=== PATIENT | male | born 1965 | race Caucasian/White ===

== ENCOUNTER 2023-02-06 07:19 | Outpatient (OUT) | payer OTHER, SELFPAY ==
[2023-02-06 08:43] LABS: Alanine Aminotransferase 43 U/L (16-63); Albumin Level 4.1 g/dL (3.4-5.0); Alkaline Phosphatase 97 U/L (46-116); Anion Gap 13.6; Aspartate Amino Transferase 14 U/L (15-37); BUN Creatinine Ratio 15.5; Bilirubin Total 0.4 mg/dL (0.2-1.0); Calcium 9.1 mg/dL (8.5-10.1); Carbon Dioxide 29.9 mmol/L (21.0-32.0); Chloride 99 mmol/L (98-107); Chol HDL Ratio 3.6; Cholesterol 232 mg/dL (<=200); Estimated GFR (African America >60 (>=60); Estimated GFR (Non-African Ame >60 (>=60); Glucose 290 mg/dL (74-106); HDL Cholesterol 65 mg/dL (40-60); Potassium 4.5 mmol/L (3.5-5.1); Sodium 138 mmol/L (136-145); Total Protein 8.1 g/dL (6.4-8.2); Triglycerides 116 mg/dL (<=150); VLDL CHOLESTEROL 23.2 mg/dL
[2023-02-06 08:55] LABS: Prostate Specific Antigen Scrn 1.46 ng/mL (<=4.00)
== END 2023-02-06 07:20 | disposition home or self-care (01) ==
PROVIDERS: PCP Family Medicine; Visit Provider Family Medicine
DX: Z00.00 Encounter for general adult medical examination without abnormal findings (principal); Z12.5 Encounter for screening for malignant neoplasm of prostate
CPT/HCPCS: 36415; 80053; 80061; G0103

== ENCOUNTER 2023-09-10 13:20 | Emergency (ER) | payer OTHER, SELFPAY ==
[2023-09-10] VITALS (21 sets, daily range): BP systolic 106–179; BP diastolic 86–113; PULSE 92–112; TEMP 36.7; O2SAT 94–99
--- NOTE | 2023-09-10 13:29 | ED.GENADUL1 ---
HPI HPI - General Adult General Chief complaint: Chest Pain Stated complaint: CHEST PAIN Time Seen by Provider: 09/10/23 13:20 Source: patient Mode of arrival: Wheelchair Limitations: no limitations History of Present Illness HPI narrative: Patient is a 58-year-old male who presents to the emergency department with concern for possible pulmonary embolism. He has a history of pulmonary embolism in the past. He was taken off of his Xarelto 1 week ago for a back procedure and states that he has had 1 day of Lovenox. He denies any other recent illness, injuries or traumas to the right chest wall. He points to pain in the right upper quadrant of the abdomen radiating upward and states the same pain happened with his previous pulmonary embolisms. He has a history of clotting disorder. No medications taken prior to arrival. Related Data Previous Rx's ?Medication ?Instructions ?Recorded ondansetron 4 mg disintegrating 4 mg PO Q6H PRN nausea and 09/10/23 tablet vomiting #12 tabs oxycodone-acetaminophen 5 mg-325 1 tab PO Q6H PRN pain 4 days #15 09/10/23 mg tablet (Percocet) tabs Allergies Allergy/AdvReac Type Severity Reaction Status Date / Time No Known Drug Allergies Allergy Verified 09/10/23 13:24 Opioid HPI Opioid Management Most Recent Opioid Data: Last Pain Scale 8 09/10/23 14:39 Last ED Pain Assessment 09/10/23 14:39 Last MAR Pain Assessment 09/10/23 14:35 Review of Systems ROS Constitutional Denies: fever or chills Ears, nose, mouth, and throat Denies: throat pain or nasal congestion Cardiovascular Reports: chest pain Respiratory Denies: shortness of breath Gastrointestinal Reports: abdominal pain; Denies: nausea or vomiting Musculoskeletal Denies: back pain Integumentary/Breast Denies: rash Neurological Denies: headache Hematologic/Lymphatic Reports: easy bruising and easy bleeding Exam Narrative Exam Narrative: Gen.: Awake, alert, in no distress Head: Normocephalic, atraumatic ENT: Moist mucous membranes Respiratory: No respiratory distress, lungs clear bilaterally Cardio: Regular rate and rhythm Gastrointestinal: Tenderness and guarding to the right upper quadrant with previous incision well-healed from cholecystectomy Extremities: Moves extremities equally Psych: Normal mood and affect Neuro: No focal neuro deficit Skin: Warm, dry, intact Constitutional Vital Signs, click to edit/add: Last Vital Signs Temp 98.1 F 09/10/23 13:24 Pulse 102 H 09/10/23 14:31 Resp 26 H 09/10/23 14:31 BP 145/107 H 09/10/23 14:31 Pulse Ox 98 09/10/23 14:31 O2 Del Method Room Air 09/10/23 13:24 Course Vital Signs Vital signs: Vital Signs Blood Pressure 179/106 H 09/10/23 12:51 Temperature 98.1 F 09/10/23 13:24 Pulse Rate 102 H 09/10/23 14:31 Respiratory Rate 26 H 09/10/23 14:31 Blood Pressure 145/107 H 09/10/23 14:31 Pulse Oximetry 98 09/10/23 14:31 Oxygen Delivery Method Room Air 09/10/23 13:24 Medical Decision Making MDM Narrative Medical decision making narrative: Lab studies including LFTs, lipase and troponin are within normal limits. Patient was medicated with Dilaudid and remedicated with fentanyl. His vital signs have normalized and he was sent for CT angio of the chest which shows no evidence of pulmonary embolism. Patient will be discharged home to follow-up with PCP, short course of analgesics given for home. Follow-up with PCP and return to the emergency department if symptoms change or worsen. Medical Records Medical records reviewed: Yes I reviewed the patient's medical records Lab Data Lab results reviewed: Yes I reviewed the patient's lab results Labs: Lab Results 09/10/23 Range/Units 13:30 WBC 10.2 (4.0-11.0) 10^3/uL RBC 5.14 (4.70-6.10) 10^6/uL Hgb 15.4 (14.0-18.0) g/dL Hct 45.4 (42.0-54.0) % MCV 88.3 (80.0-94.0) fL MCH 30.0 (25.9-34.0) pg MCHC 33.9 (29.9-35.2) g/dL RDW 12.3 (11.0-15.0) % Plt Count 238 (150-450) 10^3/uL MPV 11.0 (9.5-13.5) fL Neut % (Auto) 50.9 (43.0-75.0) % Lymph % (Auto) 38.2 (20.5-60.0) % [place] % (Auto) 9.1 (1.7-12.0) % Eos % (Auto) 0.7 L (0.9-7.0) % Baso % (Auto) 0.5 (0.2-2.0) % Neut # (Auto) 5.2 (1.4-6.5) 10^3/uL Lymph # (Auto) 3.9 H (1.2-3.8) 10^3/uL [place] # (Auto) 0.9 H (0.3-0.8) 10^3/uL Eos # (Auto) 0.1 (0.0-0.7) 10^3/uL Baso # (Auto) 0.1 (0.0-0.1) 10^3/uL Abs Immat Gran (auto) 0.06 H (0.00-0.03) 10^3/uL Imm/Tot Granulo (auto) 0.6 H (0.0-0.5) % PT 10.1 (9.0-11.6) sec INR 0.95 Sodium 134 L (136-145) mmol/L Potassium 4.2 (3.5-5.1) mmol/L Chloride 96 L (98-107) mmol/L Carbon Dioxide 24.9 (21.0-32.0) mmol/L Anion Gap 17.3 BUN 13.0 (7.0-18.0) mg/dL Creatinine 0.90 (0.70-1.30) mg/dL Est GFR ( Amer) >60 (>=60) Est GFR (Non-Af Amer) >60 (>=60) BUN/Creatinine Ratio 14.4 Glucose 237 H (74-106) mg/dL Calcium 10.2 H (8.5-10.1) mg/dL Total Bilirubin 0.6 (0.2-1.0) mg/dL AST 25 (15-37) U/L ALT 55 (16-63) U/L Alkaline Phosphatase 110 (46-116) U/L Troponin I High Sens <4.0 L (4.0-76.1) pg/mL NT-Pro-B Natriuret Pep 14.0 (<=900.0) pg/mL Total Protein 8.7 H (6.4-8.2) g/dL Albumin 4.3 (3.4-5.0) g/dL Globulin 4.4 g/dL Albumin/Globulin Ratio 1.0 Lipase 24.0 (16.0-77.0) U/L Imaging Data CT scan - chest: Attestation: I have reviewed the pertinent imaging results. Radiologist's impression: ITS Impressions Chest CTA 09/10/23 13:30 IMPRESSION: No evidence of pulmonary embolus or acute intrathoracic abnormality. Severe hepatic cirrhosis. Electronically authenticated by: ALLAN MAYEN Date: 09/10/2023 14:49 ECG Data Attestation: I personally reviewed and interpreted this ECG as follows: (Sinus tachycardia at a rate of 106, incomplete right bundle branch block, no acute ST elevation or ectopy. EKG reviewed by attending physician) Discharge Plan Discharge Stand Alone Forms: Portal Instructions Chief Complaint: Chest Pain Clinical Impression: Chest pain Patient Disposition: Home, Self-Care Time of Disposition Decision: 15:02 Condition: Good Prescriptions / Home Meds: New oxycodone-acetaminophen [Percocet] 5-325 mg tablet 1 tab PO Q6H PRN (Reason: pain) 4 Days Qty: 15 0RF Rx Instructions: DX: R07.9 ondansetron 4 mg tablet,disintegrating 4 mg PO Q6H PRN (Reason: nausea and vomiting) Qty: 12 0RF Print Language: German Instructions: Chest Pain (ED) Referrals: KIMI JACINTO [Primary Care Provider] - 1 week
--- NOTE | 2023-09-10 13:30 | ECG_ITS ---
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
--- NOTE | 2023-09-10 13:30 | CT_ITS ---
[address] [address] Patient Name: LYLY KIDD MRN: [id number] date: 1965 Sex: M Assigned Patient Location: ER Current Patient Location: Accession/Order Number: [id number] Exam Date: 09/10/2023 14:08 Report Date: 09/10/2023 14:49 At the request of: KINSEY EVANS Procedure: CT angio chest EXAM: CT angio chest HISTORY: Pulmonary embolism COMPARISON: None. TECHNIQUE: CT chest with intravenous contrast was performed with timing for the evaluation for pulmonary arteries. Multiplanar reformats were performed. MIP (maximum intensity projection) images or 3D post processing was performed. Dose reduction techniques were achieved by using automated exposure control and/or adjustment of mA and/or kV according to patient size and/or use of iterative reconstruction technique. FINDINGS: Lungs: No consolidation, pneumothorax, or effusion. Airways: Normal. Mediastinum: No adenopathy. Aorta: No aneurysm. Cardiac: Normal size. No pericardial effusion. Pulmonary vasculature: Diagnostic opacification of pulmonary arteries without evidence of pulmonary embolus. Normal morphology. Bones: No acute bony abnormality. Axilla: No adenopathy. Thyroid gland: No abnormality demonstrated on provided imaging. Soft tissues: Unremarkable. Upper abdomen: Severe hepatic steatosis. Additional findings: None. CT/CT angio chest IMPRESSION: No evidence of pulmonary embolus or acute intrathoracic abnormality. Severe hepatic cirrhosis. Electronically authenticated by: ALLAN MAYEN Date: 09/10/2023 14:49
[2023-09-10] MEDS: 0.9 % SODIUM CHLORIDE 1,000 ML 1000 ML IV (13:43)
[2023-09-10] MEDS: ONDANSETRON PF 4 MG/2 ML VIAL IV (13:44)
[2023-09-10] MEDS: HYDROMORPHONE HCL 1 MG/ML CARTRIDGE IVP (13:44)
[2023-09-10 13:57] LABS: Basophils Absolute Auto 0.1 10^3/uL (0.0-0.1); Basophils Percent Auto 0.5 % (0.2-2.0); Eosinophils Absolute Auto 0.1 10^3/uL (0.0-0.7); Eosinophils Percent Auto 0.7 % (0.9-7.0); Hematocrit 45.4 % (42.0-54.0); Hemoglobin 15.4 g/dL (14.0-18.0); Immature Granulocytes Abs Auto 0.06 10^3/uL (0.00-0.03); Immature Granulocytes Pct Auto 0.6 % (0.0-0.5); Lymphocytes Absolute Auto 3.9 10^3/uL (1.2-3.8); Lymphocytes Percent Auto 38.2 % (20.5-60.0); Mean Corpuscular HGB Conc 33.9 g/dL (29.9-35.2); Mean Corpuscular Volume 88.3 fL (80.0-94.0); Monocytes Absolute Auto 0.9 10^3/uL (0.3-0.8); Monocytes Percent Auto 9.1 % (1.7-12.0); Neutrophils Absolute Auto 5.2 10^3/uL (1.4-6.5); Neutrophils Percent Auto 50.9 % (43.0-75.0); Platelet Count 238 10^3/uL (150-450); Red Blood Count 5.14 10^6/uL (4.70-6.10); Red Cell Distribution Width 12.3 % (11.0-15.0); White Blood Count 10.2 10^3/uL (4.0-11.0)
[2023-09-10 14:10] LABS: INR 0.95; Prothrombin Time 10.1 sec (9.0-11.6)
[2023-09-10 14:20] LABS: Anion Gap 17.3
[2023-09-10 14:28] LABS: Alanine Aminotransferase 55 U/L (16-63); Albumin Level 4.3 g/dL (3.4-5.0); Alkaline Phosphatase 110 U/L (46-116); Aspartate Amino Transferase 25 U/L (15-37); BUN Creatinine Ratio 14.4; Bilirubin Total 0.6 mg/dL (0.2-1.0); Calcium 10.2 mg/dL (8.5-10.1); Carbon Dioxide 24.9 mmol/L (21.0-32.0); Chloride 96 mmol/L (98-107); Estimated GFR (African America >60 (>=60); Estimated GFR (Non-African Ame >60 (>=60); Globulin 4.4 g/dL; Glucose 237 mg/dL (74-106); Potassium 4.2 mmol/L (3.5-5.1); Sodium 134 mmol/L (136-145); Total Protein 8.7 g/dL (6.4-8.2); Troponin I High Sensitivity <4.0 pg/mL (4.0-76.1)
[2023-09-10] MEDS: FENTANYL CITRATE/PF 100 MCG/2 ML VIAL IV (14:35)
== END 2023-09-10 15:25 | disposition home or self-care (01) ==
PROVIDERS: Physician Assistant; Emergency Provider Emergency Medicine; PCP Family Medicine
DX: R07.9 Chest pain, unspecified (principal); Z86.711 Personal history of pulmonary embolism
CPT/HCPCS: 36415; 71275; 80053; 83690; 83880; 84484; 85025; 85610; 93005; 96374; 96375; 99285; J1170; Q9967

== ENCOUNTER 2024-02-04 06:36 | Outpatient (OUT) | payer OTHER, SELFPAY ==
--- OUTSIDE RECORDS SUMMARY | 2024-02-04 06:40 | XMS_ITS | CCD ---
Author Organization [facility] Care Team Providers Care Case Finishing Machine Adjuster Name Role Phone Unknown, Referring Provider Unavailable Unav ailable Kimi Weiss Unavailable Unavailable Unavailable Kimi Weiss Unavailable eBe Blackmon Unavailable Charles Claros Unavailable Dr. Kimi Weiss Primary Care Alondra Blackmon, Dr. Bee Rocha Attending Alondra BENITEZ, DR DANIEL Ngo Consulting Unavailable ABHISHEK, DR BOLDEN Primary Care Unavailable JESS LEVI Attending Unavailable JESS LEVI Admitting Unavailable JESS LEVI Consulting Unavailable DANIEL MALDONADO Consulting Unavailable Bee Blackmon Attending Unavailable Abhishek, Dr. Kimi Venegas Primary Care DO Kimi Etienne Primary Care Provider MD Charles Claros Attending Provider Charles Claros Attending Unavailable Kimi Weiss Primary Care Unavailable Charles Claros Admitting Unavailable Kimi Weiss Primary Care Unavailable Charles Claros Admitting Unavailable Charles Claros Attending Unavailable THALIA SANDY Attending Unavailable KARON RODRIGUEZ Attending Unavailable Kimi Weiss Primary Care Unavailable Kimi Weiss Attending Unavailable Kimi Weiss Referring Unavailable Kimi Weiss Primary Care Unavailable Kimi Weiss Attending Unavailable Kimi Weiss Primary Care Unavailable Georgina Santnaa Admitting Unavailable Georgina Santana Attending Unavailable Kimi Weiss Primary Care Unavailable Kimi Weiss Attending Unavailable Kimi Weiss Primary Care Unavailable Kimi Weiss Attending Unavailable Kimi Weiss Primary Care Unavailable Kimi Weiss Attending Unavailable Kimi Weiss Referring Unavailable Kimi Weiss Attending Unavailable Kimi Weiss Primary Care Unavailable Kimi Weiss Referring Unavailable Kimi Weiss Primary Care Unavailable Kimi Weiss Attending Unavailable BEE BLACKMON Attending Unavailable KIMI WEISS Primary Care Unavailabl e Allergies Allergy Classification Reported Allergen(s) Allergy Type Date of Onset Reaction(s) Facility (1 source) ALLERGIES NOT ON FILE; Translations: [ALLERGIES NOT ON FILE] Propensity to adverse reactions (disorder) [facility] Medications Current Medications Medication Drug Class(es) Dates Sig (Normalized) Sig (Original) acetaminophen 325 mg / HYDROcodone bitartrate 5 mg oral tablet (20 sources) Opioid Agonist Start: 04-01-2023 take 1 tablet by mouth twice daily as needed HYDROcodone-Aceta minophen 5-325 MG 1 tablet as needed Orally up to two times daily as needed for 30 days Mar, Active Start: 01-21-2023 take 1 tablet by azucena th twice daily as needed HYDROcodone-Acetaminophen 5-325 MG 1 tab let as needed Orally up to two times daily as needed for 30 days Jan, Active Start: 10-06-2022 take 1 tablet by azucena th twice daily as needed HYDROcodone-Acetaminophen 5-325 MG 1 tab let as needed Orally up to two times daily as needed for 30 days Sep, Active Start: 06-01-2022 take 1 tablet by azucena th twice daily as needed HYDROcodone-Acetaminophen 5-325 MG 1 tab let as needed Orally up to two times daily as needed for 30 days May, Active Start: 04-02-2021 take 1 tablet by azucena th twice daily as needed HYDROcodone-Acetaminophen 5-325 MG Oral Tablet TAKE 1 TABLET BY MOUTH NEEDED up to TWICE DAILY Quantity: 60 Refills: 0 Ordered: 02-Apr-2021 DO Start : 02-Apr-2021 Active Start: 06-13-2019 End: 03-05-2020 take 1 tablet by mouth twice daily Hydrocodone-Acetaminophen Discontinued 1 TAB PO Twice daily 0 June 15, 2019 12:03pm February 28, 2020 1:49pm acetaminophen 325 mg / oxyCODONE hydrochloride 5 mg oral tablet (11 sources) Opioid Agonist Start: 08-05-2023 End: 08-06-2023 take 1 tablet by mouth twice daily Oxycodone-Acetaminophen Active 1 TAB PO Twice daily 60 30 August 06, 2023 Start: 07-09-2018 End: 06-13-2019 Oxycodone-Acetaminophen (Per cocet) 5-325 mg tablet Discontinued 1 TAB PO .Q12 July 09, 2018 June 13, 2019 11:45pm cyclobenzaprine hydrochloride 10 mg oral tablet (20 sources) Muscle Relaxant Start: 02-28-2020 End: 03-05-2020 take 10 mg by mouth twice daily Cyclobenzaprine Active 10 MG PO Twice daily 90 March 05, 2020 5:05pm esomeprazole 20 mg delayed release oral capsule (20 sources) Proton Pump Inhibitor Start: 12-28-2017 take 1 capsule by mouth once daily Esomeprazole Magnesium (Nexium) 20 mg Capsule,Delayed Release(Dr/Ec) Active 20 MG PO Daily December 28, 2017 12:00am Start: 12-28-2017 take 10 mg by mouth once daily Esomeprazole Magnesium (Nexium) 20 mg Capsule,Delayed Release(Dr/Ec) Active 10 MG PO Daily December 28, 2017 12:00am take 1 tablet by azucena th once daily in the morning NexIUM 24HR 20 mg oral delayed release tablet ; 1 tab(s) orally once a day (in the morning) Quantity: 0 Refills: 0 Ordered: 19-Nov-2020 Tara Gonzalez Generic Substitution Allowed 1 ml galcanezumab-gnlm 120 mg/ml auto-injector (7 sources) Start: 09-07-2023 inject 120 mg by subcutaneous injection every month Galcanezumab-Gnlm (Emgality Pen) 120 mg/mL pen injector Active 120 MG SUBCUT every month September 07, 2023 12:00am Start: 08-12-2021 Emgality 120 M G/ML Subcutaneous Solution Auto-injector Quantity: 1 Refills: 0 Ordered: 10-Sep-2021 DO Start : 12-Aug-2021 Active lisinopril 30 mg oral tablet (20 sources) Angiotensin Converting Enzyme Inhibitor Start: 09-07-2023 take 30 mg by mouth once daily Lisinopril Active 30 MG PO Daily September 07, 2023 12:00am Start: 08-05-2023 End: 09-07-2023 take 20 mg by mouth once daily Lisinopril Discontinued 20 MG PO Daily August 05, 2023 9:05am September 07, 2023 9:17am Start: 10-08-2020 take 1 tablet by azucena th once daily Lisinopril 20 MG Oral Tablet TAKE 1 TABLET BY MOUTH DAILY Quantity: 90 Refills: 0 Ordered: 13-Apr-2021 DO Start : 08-Oct-2020 Active Start: 12-28-2017 End: 08-05-2023 take 10 mg by mouth once daily Lisinopril Discontinued 10 MG PO Daily December 28, 2017 12:00am August 05, 2023 9:05am sennosides, detention 8.6 mg oral tablet (1 source) Start: 03-05-2020 take 2 tablets by mouth once daily at bedtime Sennosides (Senna Lax) 8.6 mg Tablet Active 2 TAB PO Daily at bedtime March 05, 2020 1:00am Completed/Discontinued Medications Medication Drug Class(es) Dates Sig (Normalized) Sig (Original) acetaminophen 325 mg oral tablet (3 sources) Start: 11-26-2020 End: 01-24-2021 take 2 tablets by mouth every six hours Pain Reliever 325 MG Oral Tablet TAKE 2 TABLETS BY MOUTH EVERY 6 HOURS Quantity: 240 Refills: 0 Ordered: 26-Nov-2020 DO Start : 26-Nov-2020 Complete Comment on above: This product contain s acetaminophen. Do not use with any other product containing acetaminophen to prevent possible liver damage. acetaminophen 300 mg / butalbital 50 mg / caffeine 40 mg oral capsule (10 sources) Barbiturate, Central Nervous System Stimulant, Methylxanthine Start: 04-08-2021 take 1 capsule by mouth every four hours as needed for headache Zkkzvgonxn-ITEJ-X affeine 50-300-40 MG Oral Capsule TAKE 1 CAPSULE BY MOUTH EVERY 4 HOURS NEEDED FOR HEADACHE Quantity: 36 Refills: 0 Ordered: 08-Apr-2021 DO Start : 08-Apr-2021 Active carisoprodol 350 mg oral tablet (8 sources) Muscle Relaxant Start: 06-13-2019 End: 02-28-2020 take 350 mg by mouth three times daily Carisoprodol Discontinued 350 MG PO Three times daily 0 June 15, 2019 12:03pm February 28, 2020 1:49pm cephalexin 500 mg oral tablet (6 sources) Cephalosporin Antibacterial Start: 01-07-2021 End: 04-23-2021 take 1 tablet by mouth three times daily at mealtime Cephalexin 500 MG Oral Tablet TAKE 1 TABLET 3 TIMES DAILY, WITH FOOD Quantity: 15 Refills: 0 Ordered: 07-Jan-2021 Bee Blackmon MD Start : 07-Jan-2021 End : 23-Apr-2021 Complete Start: 01-07-2021 Cephalexin 500 MG Oral Capsule Quantity: 15 Refills: 0 Ordered: 07-Jan-2021 DO Start : 07-Jan-2021 Complete docusate sodium 100 mg oral capsule (7 sources) Start: 03-05-2020 End: 09-07-2023 take 1 capsule by mouth twice daily Docusate Sodium (Dok) 100 mg Capsule Discontinued 100 MG PO Twice daily 60 March 05, 2020 1:00am September 07, 2023 9:17am Comment on above: Medication should be taken with plenty of water. DULoxetine 60 mg delayed release oral capsule (20 sources) Serotonin and Norepinephrine Reuptake Inhibitor Start: 08-01-2020 take 1 capsule by mouth once daily DULoxetine HCl - 60 MG Oral Capsule Delayed Release Particles TAKE 1 CAPSULE BY MOUTH DAILY. DO NOT CRUSH OR CHEW Quantity: 90 Refills: 0 Ordered: 16-Mar-2021 DO Start : 01-Aug-2020 Active Start: 07-12-2020 DULoxetine HCl - 30 MG Oral Capsule Delayed Release Particles Quantity: 14 Refills: 0 Ordered: 12-Jul-2020 DO Start : 12-Jul-2020 Complete 0.4 ml enoxaparin sodium 100 mg/ml prefilled syringe (6 sources) Low Molecular Weight Heparin Start: 11-26-2020 End: 11-30-2020 enoxaparin 40 mg/0.4 mL injectable solution ; 40 milligram(s) subcutaneously once a day starting on 11/27/20 and continuing for 5 days, then stop and resume home Xarelto. Quantity: 5 Refills: 0 Ordered: 26-Nov-2020 Lambert Suarez Start: 26-Nov-2020 End: 30-Nov-2020 Generic Substitution Allowed Comments: It is very important that you take or use this exactly as directed. Do not skip doses or discontinue unless directed by your doctor. Start: 11-26-2020 Enoxaparin Sod ium 40 MG/0.4ML Injection Solution Prefilled Syringe Quantity: 2 Refills: 0 Ordered: 26-Nov-2020 DO Start : 26-Nov-2020 Complete Start: 11-26-2020 Enoxaparin Sod ium 40 MG/0.4ML SOLN Quantity: 2 Refills: 0 Ordered: 26-Nov-2020 DO Start : 26-Nov-2020 Complete Start: 11-26-2020 Enoxaparin Sod ium 40 MG/0.4ML Subcutaneous Solution Quantity: 2 Refills: 0 Ordered: 26-Nov-2020 DO Start : 26-Nov-2020 Complete Start: 11-20-2020 Enoxaparin Sod ium 120 MG/0.8ML SOLN INJECT 1 SYRINGE UNDER THE SKIN EVERY 12 HOURS FOR 3 DAYS. STOP XARELTO 8-6 AND THEN START LOVENOX 8-7 Quantity: 5 Refills: 0 Ordered: 21-Nov-2020 DO Start : 20-Nov-2020 Complete Start: 11-20-2020 Enoxaparin Sod ium 120 MG/0.8ML Subcutaneous Solution INJECT 1 SYRINGE UNDER THE SKIN EVERY 12 HOURS FOR 3 DAYS. STOP XARELTO 8-6 AND THEN START LOVENOX 8-7 Quantity: 5 Refills: 0 Ordered: 21-Nov-2020 DO Start : 20-Nov-2020 Complete Comment on above: It is very important that you take or use this exactly as directed. Do not skip doses or discontinue unless directed by your doctor. fenofibrate 48 mg oral tablet (19 sources) Peroxisome Proliferator Receptor alpha Agonist Start: 04-14-2021 Fenofibrate 48 MG Oral Tablet Quantity: 90 Refills: 0 Ordered: 14-Apr-2021 DO Start : 14-Apr-2021 Active Start: 06-13-2019 take 1 tablet by azucena th once daily Fenofibrate Nanocrystallized (Tricor) 48 mg tablet Active 48 MG PO Daily June 13, 2019 1:00am Start: 12-28-2017 End: 08-04-2018 take 48 mg by mouth once daily Fenofibrate Nanocrystallized Discontinued 48 MG PO Daily December 28, 2017 12:00am August 04, 2018 2:35pm gabapentin 300 mg oral capsule (8 sources) Anti-epileptic Agent Start: 09-19-2020 take 1 capsule by mouth twice daily Gabapentin 300 MG Oral Capsule TAKE 1 CAPSULE BY MOUTH TWICE DAILY Quantity: 60 Refills: 0 Ordered: 19-Sep-2020 DO Start : 19-Sep-2020 Complete Start: 03-05-2020 End: 09-07-2023 take 600 mg by mouth twice daily Gabapentin Discontinued 600 MG PO Twice daily 60 March 05, 2020 1:00am September 07, 2023 9:17am Lidocaine (4 sources) Antiarrhythmic, Amide Local Anesthetic Start: 06-15-2019 End: 02-28-2020 apply 1 dose topically once daily Lidocaine (Aspercreme (Lidocaine)) 4 % Adhesive Patch,Medicated Discontinued 1 PATCH TOPICAL Daily June 15, 2019 1:00February 28, 2020 1:49pm methocarbamol 500 mg oral tablet (7 sources) Muscle Relaxant Start: 11-26-2020 End: 12-09-2020 take 2 tablets by mouth every eight hours Methocarbamol 500 MG Oral Tablet TAKE 2 TABLETS BY MOUTH EVERY 8 HOURS Quantity: 90 Refills: 0 Ordered: 25-Dec-2020 DO Start : 26-Nov-2020 Complete Start: 07-04-2018 End: 08-04-2018 take 750 mg by mouth every four hours Methocarbamol Discontinued 750 MG PO Q4H July 04, 2018 12:00am August 04, 2018 2:35pm Comment on above: May cause drowsiness . Alcohol may intensify this effect. Use care when operating dangerous machinery. methylPREDNISolone 4 mg oral tablet (8 sources) Corticosteroid Start: 2019 End: 2023 take 1 tablet by mouth once Methylprednisolone (Medrol (Samm)) 4 mg tablets,dose pack Discontinued 0 PO .COMPLEX March 05, 2020 1:00am September 07, 2023 9:17am orally per package directions Start: 07-04-2018 End: 08-04-2018 Methylprednisolone (Medrol ( Samm)) 4 mg tablets,dose pack Discontinued 1 TAB PO As Directed July 04, 2018 12:00am August 04, 2018 2:36pm oxyCODONE hydrochloride 5 mg oral tablet (7 sources) Opioid Agonist Start: 03-05-2020 End: 09-07-2023 take 5 mg by mouth every four hours Oxycodone Discontinued 5 MG PO Q4H 20 March 05, 2020 September 07, 2023 9:17am Comment on above: Caution federal law prohibits the transfer of this drug to any person other than the person for whom it was prescribed.It is very important that you take or use this exactly as directed. Do not skip doses or discontinue unless directed by your doctor.May cause drowsiness. Alcohol may intensify this effect. Use care when operating dangerous machinery.This prescription cannot be refilled.Using more of this medication than prescribed may cause serious breathing problems. polyethylene glycol 3350 23615 mg powder for oral solution (3 sources) Osmotic Laxative Start: 11-26-2020 End: 12-09-2020 MiraLax oral powder for reconstitution ; 17 gram(s) orally once a day as needed for constipation Quantity: 238 Refills: 0 Ordered: 26-Nov-2020 Lambert Suarez Start: 26-Nov-2020 End: 09-Dec-2020 Generic Substitution Allowed Comments: Dilute this medication with liquid before administration.It is very important that you take or use this exactly as directed. Do not skip doses or discontinue unless directed by your doctor. Start: 11-26-2020 Polyethylene G lycol 3350 17 GM/SCOOP Oral Powder Quantity: 238 Refills: 0 Ordered: 26-Nov-2020 DO Start : 26-Nov-2020 Complete Comment on above: Dilute this medicati on with liquid before administration.It is very important that you take or use this exactly as directed. Do not skip doses or discontinue unless directed by your doctor. predniSONE 20 mg oral tablet (6 sources) Start: 04-27-19 take 2 tablets by mouth once daily, then take 1 tablet by mouth once daily predniSONE 20 MG Oral Tablet Take 2 tablets daily for 2 days, then 1 tablet daily for 7 days Quantity: 11 Refills: 0 Ordered: 27-Apr-2022 Bee Blackmon MD Start : 27-Apr-2022 Active Start: 03-28-2021 predniSONE 10 MG Oral Tablet Quantity: 30 Refills: 0 Ordered: 28-Mar-2021 DO Start : 28-Mar-2021 Complete Start: 07-03-2020 predniSONE 20 MG Oral Tablet Quantity: 10 Refills: 0 Ordered: 03-Jul-2020 DO Start : 03-Jul-2020 Complete rivaroxaban 20 mg oral tablet (20 sources) Factor Xa Inhibitor Start: 04-14-2021 Xarelto 20 MG Oral Tablet Quantity: 90 Refills: 0 Ordered: 14-Apr-2021 DO Start : 14-Apr-2021 Active Start: 02-28-2020 take 1 tablet by azucena th once daily Rivaroxaban (Xarelto) 20 mg tablet Active 20 MG PO Daily February 28, 2020 1:00am Start: 06-15-2019 End: 02-28-2020 take 1 tablet by mouth twice daily at mealtime Rivaroxaban (Xarelto) 15 mg Tablet Discontinued 15 MG PO Twice daily with meals 42 June 15, 2019 1:00am February 28, 2020 6:32pm Start: 12-28-2017 End: 06-15-2019 take 20 mg by mouth once daily Rivaroxaban Discontinue d 20 MG PO Daily December 28, 2017 12:00am June 15, 2019 12:04pm Sennosides (Senna Lax) 8.6 mg Tablet (3 sources) Start: 03-05-2020 End: 09-07-2023 take 2 tablets by mouth once daily at bedtime Sennosides (Senna Lax) 8.6 mg Tablet Discontinued 2 TAB PO Daily at bedtime March 05, 2020 1:00am September 07, 2023 9:18am topiramate 25 mg oral tablet (11 sources) Start: 06-02-2021 Topiramate 25 MG Oral Tablet Quantity: 120 Refills: 0 Ordered: 03-Jun-2021 DO Start : 02-Jun-2021 Complete Start: 04-23-2021 take 1 tablet by azucena th twice daily Topiramate 50 MG Oral Tablet TAKE 1 TABLET TWICE DAILY. Quantity: 180 Refills: 1 Ordered: 16-Sep-2021 Marisol Lacey Start : 23-Apr-2021 Active Start: 04-23-2021 take 2 tablets by mo ut twice daily Topiramate 25 MG Oral Tablet TAKE 2 TABLET Twice daily Quantity: 120 Refills: 2 Ordered: 02-Jun-2021 Marisol Lacey Start : 23-Apr-2021 Active Start: 04-23-2021 take 1 tablet by azucena th once daily at bedtime, then take 1 tablet by mouth twice daily, then take 1 tablet by mouth once daily in the morning, then take 2 tablets by mouth once daily in the evening, then take 2 tablets by mouth twice daily Topiramate 25 MG Oral Tablet Take 1 tab QHS x 1 week, then 1 tab BID x 1 weeks, then 1tab qAM, 2tab qPM x 1 week then 2tab BID ongoing Quantity: 120 Refills: 2 Ordered: 23-Apr-2021 Lisha PYROTECHNIST-INTERIOR PANELERMarisol Start : 23-Apr-2021 Active Triamcinolone (13 sources) Corticosteroid Start: 01-30-2017 KENALOG - 10 m g 14 Jan, 2017 60 mg verapamil hydrochloride 120 mg extended release oral tablet (7 sources) Calcium Channel Urban Start: 06-10-2021 Verapa mil HCl ER 120 MG Oral Tablet Extended Release Quantity: 30 Refills: 0 Ordered: 10-Jun-2021 DO Start : 10-Jun-2021 Active Problems Active Problems Problem Classification Problem Date Documented Date Episodic/Chronic Abdominal pain (19 sources) Abdominal pain; Translations: [Unspecified abdominal pain] 12-28-2017 Episodic Acquired foot deformities (5 sources) Foot-drop; Translations: [Other acquired deformities of ankle and foot] Onset: 05-12-2022 Episodic Complications of surgical procedures or medical care (12 sources) Adverse reaction to substance; Translations: [Other specified complications of procedures not elsewhere classified] Episodic Conduction disorders (1 source) Unspecified right bundle-branch block; Translations: [UNSPECIFIED RT BUNDLE-BRANCH BLOCK] Onset: 04-15-2022 Chronic Disorders of lipid metabolism (1 source) Hyperlipidemia, unspecified; Translations: [HYPERLIPIDEMIA UNSPECIFIED] Onset: 04-15-2022 Chronic Esophageal disorders (15 sources) Gastroesophageal reflux disease; Translations: [Gastro-esophageal reflux disease without esophagitis] Chronic Essential hypertension (11 sources) Benign essential hypertension; Translations: [Benign essential hypertension] Onset: 04-15-2022 Chronic Joint disorders and dislocations; trauma-related (15 sources) Derangement of left knee; Translations: [Unspecified internal derangement of left knee] Chronic Nausea and vomiting (15 sources) Nausea; Translations: [Nausea] Episodic Nonspecific chest pain (3 sources) Chest pain, unspecified; Translations: [CHEST PAIN UNSPECIFIED] Onset: 04-14-2022 Episodic Other acquired deformities (15 sources) Lumbar spondylolisthesis; Translations: [Spondylolisthesis, lumbar region] Episodic Other aftercare (1 source) Other watcher automat long goods (current) drug therapy; Translations: [OTH DOMAIN ARCHITECT CURRENT DRUG THERAPY] Onset: 04-15-2022 Episodic Other aftercare (1 source) MCFP (current) use of anticoagulants; Translations: [DOMAIN ARCHITECT CURRNT USE ANTICOAGULANTS] Onset: 04-15-2022 Episodic Other aftercare (4 sources) Long-term current use of anticoagulant; Translations: [MCFP (current) use of anticoagulants] 02-28-2020 Episodic Other circulatory disease (4 sources) Inferior vena cava filter in situ; Translations: [Presence of other vascular implants and grafts] 06-13-2019 Chronic Other connective tissue disease (15 sources) Pain of right calf; Translations: [Pain in right lower leg] Episodic Other connective tissue disease (5 sources) Pain in right leg; Translations: [Right leg pain M79.604] Onset: 02-05-2021 Resolved: 12-15-2021 Episodic Other connective tissue disease (1 source) Arthrodesis status; Translations: [Arthrodesis status] Onset: 05-12-2022 Episodic Other connective tissue disease (9 sources) Pain in right lower limb; Translations: [Pain in right leg] Episodic Other connective tissue disease (4 sources) Pain in calf; Translations: [Pain in left lower leg] 06-13-2019 Episodic Other lower respiratory disease (4 sources) Pleuritic pain; Translations: [Pleurodynia] 06-13-2019 Episodic Other nervous system disorders (19 sources) Chronic pain; Translations: [Other chronic pain] 08-02-2023 Chronic Other nervous system disorders (16 sources) Other chronic pain; Translations: [Other chronic pain] Onset: 02-05-2021 Resolved: 12-15-2021 Chronic Other nutritional; endocrine; and metabolic disorders (4 sources) Obesity; Translations: [Obesity, unspecified] Chronic Other nutritional; endocrine; and metabolic disorders (15 sources) Obese class II; Translations: [Body mass index (BMI) 35.0-35.9, adult] Chronic Pulmonary heart disease (15 sources) Pulmonary embolism; Translations: [Other pulmonary embolism and infarction] Onset: 04-15-2022 06-13-2019 Episodic Residual codes; unclassified (10 sources) Obstructive sleep apnea syndrome; Translations: [Obstructive sleep apnea (adult)(pediatric)] Chronic Residual codes; unclassified (10 sources) Inappropriate diet and eating habits; Translations: [Inappropriate diet and eating habits] Episodic Residual codes; unclassified (15 sources) History of arthroscopy of knee joint; Translations: [Other specified postprocedural states] Episodic Spondylosis; intervertebral disc disorders; other back problems (20 sources) Lumbar post-laminectomy syndrome; Translations: [Postlaminectomy syndrome, lumbar region] Onset: 02-05-2021 Resolved: 12-15-2021 12-10-2020 Chronic Spondylosis; intervertebral disc disorders; other back problems (20 sources) Lumbar radiculopathy; Translations: [Thoracic or lumbosacral neuritis or radiculitis, unspecified] Onset: 05-12-2022 11-26-2020 Episodic Sprains and strains (14 sources) Sprain of ligaments of lumbar spine, initial encounter; Translations: [Lumbar back sprain S33.5XXA] Onset: 02-05-2021 Resolved: 12-15-2021 Episodic Substance-related disorders (12 sources) Opioid use, unspecified, uncomplicated; Translations: [Continuous opioid dependence] Episodic Unclassified (2 sources) L3-4 XLIF WITH PLATE 11-01-2020 Comment on above: L3-4 XLIF WITH PLATE Unclassified (1 source) LUMBAR SPINE FU 12-09-2020 Comment on above: LUMBAR SPINE FU Unclassified (1 source) Lumbar stenosis 11-26-2020 Unclassified (1 source) Neurogenic claudication due to lumbar spinal stenosis 12-10-2020 Viral infection (1 source) COVID-19; Translations: [COVID-19] Onset: 04-15-2022 Past or Other Problems Problem Classification Problem Date Documented Da te Episodic/Chronic Other nutritional; endocrine; and metabolic disorders (10 sources) Severe obesity; Translations: [Morbid obesity] Resolved: 09-16-2021 Chronic Results Test Name Value Interpretation Reference Range Facility Coding Summaryon 09-23-2023 Coding Summary HTMLBase 64 YmglkfcaQBh0wLl+PGhlYWQ+P S7NKREqB04kjWPjyP2wI9BFNA lOSywgQVBQTElOSyIgbmFtZT1 kaXNjZXJu IC8+FZ7hYXOgTvpyvNWdw2C8n EL6S96eqa3uVGejfQY9CQUoXr Fxzdxeo8ndfMi8UFuoKuobAqS t MDYwmE88PFN9jA49Kd46uPZov IHdk1fxxFo8TlNfYSPjMFN7mG ngCJmys4NlCLBgK63fxVYtc6S 6 CZWrxMnocWUsTfRudXU3pB9xQ Djsvgaxh3vyddttWch3sl80wA Unx8I6fYA3X1QbtnY3MCCyhVL g GpcrzXSJnF0xjyauh2nzwyljF jLsFCDaBGr9CZl5IDMwwGtwTx WhDJ54PUM6ZVMgpsXlJ9NfAZD s sLlcAaQ4o4G0Uk8EE9SFIxfdY 1VNTUFSWTwvdGQ+AT19pc66L9 QcMbetGyd1SPTzMMN9tEC6hW7 n JSNgVWfuq4W7vKC9B5ZajzHua w6nc4ueNGGuHGxgH06yxFKzs4 T2GBZaiRU4CVJteBzyNyLgnB2 3 Oyc+HROhaCigm6BmEcwnc8wvg 4hfpJc3PuyhERMkfcFmfUoiXT Q2g4BzTo3bLQKdnTF0hBD3xG1 i LnHyDgI9UOkjS913KhYetJJyO yqkV81tW9XlmDB+NWIqUcz8KQ NjpOoaTU5zR4QpMPMkmckqeFY m nBbyBN6rGBRezwozOQXrdE4zV MCjY0u6CpPgTjQ4DSfgO7SsDG SmdrtjQg78jI0sMgPnEvG8TOh u O8WljpB3KTDtuBJcNBjwTRV5T 84oq8N9FLYeKAZgRRT5oSJ5aG 1hbGlnbjogbGVmdDsgdmVydGl j SWxzALhyX256IEGcsLmjPqThX GluZyBEYXRlOiAgMDYvMDYvMj AyNDwvdGQ+FCEpZFZ2jItjWNW n hXPyIYfiUm4soKxzdFzoLR3zN HJgluzyVALwiN1lBRYzxKTuaE zjXL9sCPZwxmycu760OrXjSGM 0 ZQZuaMHmX3SppQ8iSqQsNNDkM ABuU2EycWCeDHyhB585PHogKj C1YSXfzbEuT1YuDDWfePsrCfX 0 d7P1Tn5Lb6XhizhaJ5PwwQEmG lYoRlyyQNe0G2GhTmzegAQ+PC 55ROJbOS40QDp8KKL9cIukXFy i UDOpA4BqgN5lBbJaJJGfCRFfC yc+PHRhYmxlIHdpZHRoPScxMD KkBkZcoDrbMG3sUr2cNJHbLDU v nNzbdRLvZqTex0kxCFZlIItqT R0qvVzcV2VoaDM2MQWwk6j0Mw 27W01eG1IhqLM+MFAesHB4gFO 0 xR5wRcBlXhF3OYsxG062PmCbo BSrWphib0gpy5dwtHv6MdG7BP LgdqDwpHhtROW7c1ArQm50R01 s IHdpZHRoPSIxNSUiIHZhbGlnb f8caW4dKz8+LOTwrOB3zGF5wN 1sHcVwAmK9YKwnT070MgFhiRQ v Tgykr4jxx1gwbVw4XeDqLJVrj mCmiKhfETK7f4IdGp33M3QuiL ual2ViTff5ul19zJUdz3V8sAC 9 C5YsCLCzvlrtqNXanXdcOX4mB EQkvumgKYImrX1kCMSlW0t3Gj UlTyD3GPycE3MniyS1AMVxaCO g NZZuaJWClB0kvolgq4tenjayA mXnAJBnABu4BLz7YUXdeFtpGj IyCRA0FuZ8DKO7gCTpfV2euQq n ejkmeT1eVlc+AYK0hFSftYWPM U6lDczodMD+BCVmLPJ5iUmdHB kiBJRduV9jOTIuE7w7QiHoGpC 1 KHpsX7LvaqH7YUVyxFPzDSNwd IHLaA9xxoyhu0rltpzuTcEgEC PsYAw8HEb8HIXjvNrnDpRyPUT 0 GcG8XHX3bXTtmT6cnJtuowspa G9wOyc+LcobzDzyVJV1GEj8N2 WlKzw1TROkwHwbRS4asNRmBOy u Tk2dbBsriOqcYA5pIQWbivixw 646UiYtz7guFYFmdGZgEJtyAN N5F63qn4T9WEUsRRWrBIC1tXL 4 pX7qhXwlsiltmGAjiAkzbvSrz MlpUSyuTOtnY209JXRnqUvsHz VnFCb3P8IlEzq7OTKxaRzcIB1 n cKWlKGucHd0mlLawnSeiQF6zA JIrnpwsa394VwSth0ueXUOugP LqTGljEPU1N36gv8L5RIWyMAW w ZQH0oUY6aZ6hmBsndkbomDZxe MutofGpxHztAKvnLIvoO249HE QqwXddUaLowFw4D0AkPax4XVJ z xUhjFO6ytRGaXQkeJy7uqDmja TdxNU9lMMZoikogk232MtPvn3 atKXIztQZdYJvlINL0Z81kh9M 6 PYAlJWAdTUM8pTE2cR2nhJxaq jogbGVmdDsgdmVydGljYWwtYW jxD453PYEotMfyMjEmhMxrwcK g BWuvDQp7R5EhTuumcDW+PC90Y NCjDT92kQIesNAux0erbVp6Be BpXZTsEKL5lTaaYRdwp4FyQOS t Q43bgGStq5N4OBQfmVcaoLGwC eOqqPC1qM4iOPsymayio6wrkz qaKqupc5mfuf08nJ45L88dKWx p TEKmKNVqJVLoYXHbiLysqz2pe G9wIi8+BYLgnVB9gUG2lK5iYF YyVdK3GNaiQ916YiXlbJYhMpd j q7wmb1arfLy0MaB3TTYozrCkn FdmFVR4o0CmXu78S21mYCktPV FjQEShESNuMTDefHenzr2fpB2 w Ii8+LYAgxXZ6cEC6vT9zAfWrQ cV9YFgcC335QyEpgCQkGdojU2 0xZ7PqpDP+SPMdXzz6EHLjlRe s AB3hkJQdCVlfXj2tNVA9YyIoL nLaWSvxA2UbKYYzhuoxupvgkX F9QPZkQGMuaG61Bm6vzEgdXMW w pXBAqZ9uwtbxy6csnykeDpAwK REcHJd2SVz4OPMffRryWfLqEQ I2KlP8WNZ5hVEvvW9tdKuipmr g xI5yJ2UnAUTveykqCy68lF0dG cHpAbD2STzoScr+AzoRM7PdKZ KGHI2jCkoveIT+WTUlWGQ4sBt l XKceHBSceT0eAJGmN4w8CbBjJ jU2YAhzI7MiFCQhiujwTg51hI 3zAfCkPlV6CGgrW8YvzkC9AUK w zWMqRXcbTUD6T48ef9V6YFAtM HPyPUE5eMO8fA1ivTpzplnzqC DxxLiqyaHaxCchDVdjIEwrD46 6 BOOmyVvyOfGrIaI5GnX0YwE0T 5QjPuh3IXOgoRczUG4gtHFpSN lvNv3ifHgerNltGB6lXCAivcg w OFLhqQ7cLJNofQZeqClbVJ5uM QWhcormn747DiWtRCW6AIVfaI MnE7KhlF0dSjFlQCBdVPUdN0Y l mBBsWZbvK432NJkyVrP1BUUmo nTzX3BmXBZqnXyjGeB5g0K6Bo 41NyBZZWFyczwvdGQ+PHRkIHN 0 tRgjVUbdGQSueV3gFPTfQ8v1F sPkUyE8VWgqZ1HkYIFbkwlgKt 72qQ9vUyKaXiQ3WXzvC8MvdpP 6 YGUopVCqAKlqUGI7F54iv4N6U CZvOKFfNLD9nCS0mE1koQafuf ogbGVmdDsgdmVydGljYWwtYWx p E404NYMdaTzfNj3ZWSZ7H8XoY rj9ODBqdZgtXQ2uqWDhMRehWt 7mbMjmyDpsBA6pHWWwshebIGN k tE2jLUDhpQFqeAtmFO0eUUGzf vmkk225PuYdQHD6VDTgpFIhS8 GeyJ5cIxAgZILwCMBeF5OkoLP t UTohV029PFfnGpL4GKWlrsAlR 9JuYOHurRtiWhE9n7I2Or1TEZ N0axYjankeP3Q9kHF5iETtsBn v dGQ+YR00xp46X7AhGubmGyh4B VMmGZI1hJO5sN0vPAZwWGfwb6 Y1dFW0K6AjkgGxiy7la6npRWL z WOisM72vdFGur3Z3MDJyvAB7F EBdbZggXmIkbD55Kvk+PGNvbG bgk1YzUsfqy2zip0jesWk8RyK w FGPodpFwpDwbJRX7a3PnTi05T 29sIHdpZHRoPSIzMCUiIHZhbG xqaf3qbH0nXi3+POHokQA1uTC 0 sC6dAyStEwR3MZzgH096XpErn NWpWjhik4uvb8cvnVk1NtDqLZ SqbtGopXzjJJP4h6ZmLt32X8N v kWcnh8BpWfd8lk84yJToi7S3n PD9M0KqQGUcbnrtcOLbkEyeSI 0sEELeftmfXGIarL6mRFMrL8e 0 OdTcNvD8NNbsZ0AkfrN9CYDnw VPoONEddOHNoI2gciaxn1muqx mmYeBhPZTdOYf4VOq3BIStqPz u DsGnIMV3HqD7LZA1oHJuaL0rq WwjjbvzzZ8uMhc+EEr8w1wlyI LkXS8hkLZ5OS22EB33mOLhg6J 5 gSJ5D4IhPLScdevcuwlhqOW2S CUjGVAdzQ12Su0oiIuuAb0eYI IyHIT6YIMzlGSkC9DrbE8jBuV j QVEqRWNcC7XhvXKxDJjfI719J EmsPoI7ICIhyvMvP4ItXSGgaP hyXxH4o9L4Ax4DOF55XT60YH9 8 wUBdr3X4hJU4C3EaIUDzojjug gmygLN5RRObYFHooN08Om7ptB wpOe9gLTAfZSM0XLJitAKbH5T v zG1nOyLsCPFiJWFlI7XbaMVkA NpkI618MGffPlO7HXIqxaOtX6 SoXCSwxPfaNcG6m7D2Pc4LFc8 6 DZ17TQ41kQBls6N9xYN6N2WiH BPerlikxxgrgHO2IZXjTNBnwC 18Ij9khNmeNj0uASWcTVP1QLI p dEXwN4ObbT7jDmEcSEDsVZJtJ 4MjgTXeIAlyR292TCcoEcU1WE AetfLnY2PfJTXpdMmeUpZ1n7A 7 Zf7WNHwbmmv9B3RjHagxsIH+P T26UJEzTP00jVDefMZwe9zqkB x6AtCcPXBzLGR0vEbrLBnuf9C k ZXI (more content not included)... Normal [facility] 09-17-2023 Outside Records [id number]#1.00OTGT IFF Normal [facility] XR hip RT min 2V(w/wo pelvis )*on 09-15-2023 XR hip RT min 2V(w/wo pelvis)* [facility] [address] [place] [address] XRay Report Signed Patient: Lyly Quinn MR#: [id number] : 1965 Acct:[id number] Age/Sex: 58 / M ADM Date: 09/15/23 Loc: [facility] Room: Type: [facility] Attending Dr: Charles Claros MD Copies to: Charles Claros MD Ordering Provider: Charles Claros MD Date of Service: 09/15/23 XR/XR hip RT min 2V(w/wo pelvis)*: G89.29 - Other chronic pain XR hip RT min 2V(w/wo pelvis)* 09/15/2023 11:15 AM SIGNS AND SYMPTOMS: Low back and right hip pain PROTOCOL: Frontal radiograph the pelvis with frog-leg views of the right hip COMPARISON: None FINDINGS: There is mild narrowing of the joint spaces of the hips. There is no evidence of fracture or dislocation. The bony ring of the pelvis is intact. Posterior fusion hardware is noted in the lower lumbar spine. XR/XR hip RT min 2V(w/wo pelvis)* IMPRESSION: No fracture or dislocation. Mild degenerative changes are noted in the hips bilaterally. Impression dictated by: Terrence Basurto M.D.09/15/2023 3:16 PM Dictation Location: [place] [address] Transcribed By: [facility] 09/15/23 151 Dictated By: Terrence Basurto II, MD 09/15/23 1515 Signed By: 09/15/23 1516 Normal [facility] XR lumbar spine AP/LAT/FLX/E XTon 09-15-2023 XR lumbar spine AP/LAT/FLX/EXT [facility] [address] [place] [address] XRay Report Signed Patient: Lyly Quinn MR#: [id number] : 1965 Acct:[id number] Age/Sex: 58 / M ADM Date: 09/15/23 Loc: [facility] Room: Type: [facility] Attending Dr: Charles Claros MD Copies to: Charles Claros MD Ordering Provider: Charles Claros MD Date of Service: 09/15/23 XR/XR lumbar spine AP/LAT/FLX/EXT: G89.29 - Other chronic pain XR lumbar spine AP/LAT/FLX/EXT 09/15/2023 11:15 AM SIGNS AND SYMPTOMS: Low back pain and right hip pain PROTOCOLS: Frontal and lateral radiographs of the lumbar spine COMPARISON: 08/29/2020 FINDINGS: There is a levoconvex curvature of the lumbar spine similar to the prior exam Lateral and intervertebral fusion is noted at L3-L4. Posterior fusion hardware is noted at L4-5. Accompanying posterior decompression. There is mild/moderate disc height loss at L2-L3 and L5-S1. There is 5 mm of retrolisthesis of L2 upon L3. No pathologic movement on flexion or extension. No fracture. Surgical clips are present in the right upper quadrant consistent with prior cholecystectomy. There is an IVC filter. Degenerative changes are noted in the sacroiliac joints. XR/XR lumbar spine AP/LAT/FLX/EXT IMPRESSION: There is 5 mm of retrolisthesis of L2 upon L3. No pathologic movement on flexion or extension. No fracture. There has been interval lateral and intervertebral fusion at L3-L4. Unchanged L4-5 fusion. Impression dictated by: Terrence Basurto M.D.09/15/2023 3:19 PM Dictation Location: [place] [address] Transcribed By: [facility] 09/15/23 1519 Dictated By: Terrence Basurto II, MD 09/15/23 1516 Signed By: 09/15/23 1519 Normal [facility] ED Note - Provideron 05-28-2 024 ED Note - Provider [id number]#1.00OTGT IFF [facility] - Other Lab [facility] - Other Lab Results [id number]#1.00OTGT IFF [facility] 09-08-2023 Outside Records [id number]#1.00OTGTIF F [facility] Provider Orderson 08-26-2023 Provider Orders [id number]#1.00OTGT IFF [facility] 08-09-2023 Outside Records [id number]#1.00OTGTIFF [facility] 02-26-2023 Outside Records [id number]#1.00OTGTI [facility] MR BRAIN W AND WO CONTRAST ( ROUTINE)on 02-16-2023 MR BRAIN W AND WO CONTRAST (ROUTINE) EXAM: MR BRAIN W AND WO CONTRAST (ROUTINE) History: Chronic migraine Technique: Multiplanar multisequence MRI of the brain was performed without contrast. Comparison: None available Findings: Brain volume is age-appropriate. Ventricular morphology is within normal limits. No edema, hemorrhage, mass, mass effect, midline shift, or abnormal extra-axial fluid collection. Midline structures are within normal limits. The posterior fossa is within normal limits. There is no diffusion restriction. No susceptibility artifact is identified on the gradient echo sequence. The major intracranial vascular flow voids are maintained. Cranial nerves 7/8 complexes appear grossly unremarkable. The visualized paranasal sinuses and bilateral mastoid air cells are clear. IMPRESSION: No acute intracranial process. ELECTRONICALLY SIGNED BY: hCandler Tomlinson, DO Normal Not Available Lab - Other Lab [facility] - Other Lab Results [id number]#1.00OTGTI FF [facility] 02-05-2023 Outside Records [id number]#1.00OTGT IFF Normal [facility] NR MRI L-SPINE WOon 05-12-19 23 MRI L-SPINE WO Patient Name: LYLY QUINN STUDY: MRI L-SPINE WO; 05/12/2022 8:35 am INDICATION: acute right foot drop, previous surgery, had MRI 2 weeks ago with insufficient metal reduction unable to assess junctional levels M96.1: Lumbar postlaminectomy syndrome M21.371: Right foot drop. COMPARISON: Outside hospital MRI L-spine dated 04/30/2022 ACCESSION NUMBER(S): [id number] ORDERING CLINICIAN: BEE BLACKMON TECHNIQUE: Sagittal T1, T2, STIR, axial T1 and T2 weighted images of the lumbar spine were acquired. FINDINGS: Alignment: 4 mm retrolisthesis of L2 on L3 and L3 on L4 and 2 mm retrolisthesis of L5 on S1. Vertebrae/Intervertebral Discs: Postsurgical changes of posterior spinal fusion from L4-L5 and interbody spacer at L3-L4, extensive metallic artifact severely limiting evaluation of the spinal canal and neural foramina at the L4-L5 level and mildly limiting evaluation at the L3-L4 and L5-S1 levels. The vertebral bodies demonstrate expected height, with mild degenerative endplate irregularities noted at several levels.The marrow signal is within normal limits. Multilevel intervertebral disc desiccation and disc height loss, most severe at L4-L5. Conus: The lower thoracic cord appears unremarkable. The conus terminates at the L1-L2 level. T12-L1: There is no significant central canal or neural foraminal stenosis. L1-2: There is no significant central canal or neural foraminal stenosis. L2-3: 4 mm retrolisthesis of L2 on L3, circumferential disc bulge, and ligamentum flavum thickening produce mild spinal canal stenosis and moderate right and mild left neural foraminal stenosis. L3-4: Mildly limited evaluation due to metallic artifact from adjacent hardware. Interbody spacer seen the L3-L4 level. 4 mm retrolisthesis of L3 on L4 and bilateral facet hypertrophic changes produce mild spinal canal stenosis and mild right neural foraminal stenosis. No significant left neural foraminal stenosis. L4-5: Severe metallic artifact from spinal fusion hardware renders evaluation of the L4-L5 space nondiagnostic. L5-S1: 2 mm retrolisthesis of L5 on S1, circumferential disc bulge, and ligamentum flavum thickening result in mild spinal canal stenosis. The neural foramina are not well assessed due to metallic artifact. The prevertebral and posterior paraspinous soft tissues are unremarkable. IMPRESSION: 1. Susceptibility artifact renders evaluation of the L4-L5 spinal canal and neural foramina nondiagnostic and mildly limits evaluation at L3-L4 and L5-S1, as above. 2. Status post interbody spacer at L3-L4 and posterior spinal fusion of L4-L5. 3. Within the limitations, multilevel degenerative changes result in up to mild spinal canal stenosis in the evaluated levels. I personally reviewed the images/study and I agree with the findings as stated by resident physician Dr. Will Alvarado. Electronically signed by: DILMA VERA MD [facility] MRI Lumbar Spine w/oon 04-30 MRI Lumbar Spine w/o HISTORY: Right foot drop. Back pain. History of prior lumbar surgery. Lumbar radiculopathy. TECHNIQUE: Routine lumbosacral spine MR protocol without gadolinium. Contrast: None. COMPARISON: Lumbar MRI 09/05/2021. Lumbar CT 02/28/2020. RESULT: Counting reference: Lumbosacral junction. For the purposes of this report, L5-S1 is considered the last well-formed disc space. Alignment: Mild levoscoliosis of the lower lumbar spine. Straightening of the lumbar lordosis. Grade 1 retrolisthesis of L3 on L4 measuring around 3 mm. Grade 1 retrolisthesis of L2 on L3 measuring around 2 mm. Bone marrow signal/fracture: Postsurgical changes of prior posterior decompression with fusion across the L4-L5 level with associated artifact. Disc material at the level of L3-L4. Right-sided laminectomy at L2-L3. No evidence for acute fracture or osteomyelitis within limits of artifact. Vertebral body heights appear maintained. Multiple small Schmorl's nodes. Conus: The conus is within normal limits of signal intensity and morphology. Paraspinal soft tissues: Disruption of the posterior paraspinal fat planes at the surgical level. Otherwise grossly unremarkable. Lower thoracic spine: Visualized lower thoracic canal and foramina are without significant narrowing. T12-L1: No significant canal or foraminal narrowing. L1-L2: No significant canal or foraminal narrowing. L2-L3: Right-sided laminectomy. Broad-based disc bulge. Endplate osteophytes. Facet degenerative changes. Mild to moderate bilateral foraminal narrowing, worsened from prior study, without significant canal narrowing. L3-L4: Postsurgical changes. Disc bulge. Endplate osteophytes. Within limits of artifact, no evidence for high-grade canal narrowing. Within limits of artifact, possible mild right foraminal narrowing without significant left foraminal narrowing. Findings overall similar to prior study. L4-L5: Postsurgical changes. Endplate osteophytes. Facet degenerative changes. No high-grade canal narrowing with limits of artifact. No high-grade foraminal narrowing within limits of artifact. Findings overall similar to prior study. L5-S1: Broad-based disc bulge. Endplate osteophytes. Facet degenerative changes. No evidence for high-grade canal narrowing within limits of artifact. Possible mild bilateral foraminal narrowing within limits of artifact. Findings overall similar to prior study. Sacrum and iliac wings: The visualized sacrum and iliac wings are within normal limits. The presacral soft tissues are normal in appearance. IMPRESSION: Postsurgical and degenerative changes of the lumbar spine as discussed. Report reported and signed by Carlos Hayward on 05/01/2022 0917 Normal [facility] Established Visit (Orthopaed ic Surgery)on 04-27-2022 Established Visit (Orthopaedic Surgery) Diagnoses/Problems Assessed Lumbar radiculopathy (724.4) (M54.16) Right foot drop (736.79) (M21.371) Orders Right foot drop Start: predniSONE 20 MG Oral Tablet; Take 2 tablets daily for 2 days, then 1 tablet daily for 7 days Chief Complaint FUV- lower back pain History of Present Illness Patient returns for follow-up. I saw him in September of last year, he was complaining of chronic lower back pain with minimal leg symptoms. He did not have any weakness at that time. He had an MRI of his lumbar spine which was fairly normal at that point. At that time I recommended weaning from pain medication and beginning a weight loss and exercise program. He has done fairly well losing weight at this point, however he continues to take oxycodone 5 mg 1-2 times a day. Over the last month or 2 he has had worsening lower back pain with tingling in both legs. He began to develop weakness in his right foot. On exam today he has a positive straight leg raise test with a substantial right foot drop graded at 1/5. He walks using a cane which is new for him. Given this new onset weakness I did recommend we check a stat MRI of his lumbar spine. He is going to do this in the [place] area at [facility], we will have them push the results to PACS. He should call the office for the results of the MRI. In the meantime I am going to put him on some prednisone. I will speak with him after the MRI is complete. This note was dictated using speech recognition software and was not corrected for spelling or grammatical errors. Active Problems Problems Benign essential HTN (401.1) (I10) Class 1 obesity with body mass index (BMI) of 34.0 to 34.9 in adult (278.00,V85.34) (E66.9,Z68.34) Inappropriate diet or eating habits (V69.1) (Z72.4) Lower back pain (724.2) (M54.50) Lumbar postlaminectomy syndrome (722.83) (M96.1) Lumbar radiculopathy (724.4) (M54.16) YANNI on CPAP (327.23,V46.8) (G47.33,Z99.89) Pulmonary embolism (415.19) (I26.99) Spinal stenosis of lumbar region with neurogenic claudication (724.03) (M48.062) Suture reaction (998.89) (T81.89XA) Past Medical History Problems History of Class 2 severe obesity with serious comorbidity and body mass index (BMI) of 36.0 to 36.9 in adult (278.01,V85.36) (E66.01,Z68.36) Resolved Date: 16 Sep 2021 Social History Problems Non-smoker (V49.89) (Z78.9) Allergies Medication No Known Drug Allergies Recorded By: Tara Gonzalez; 01/07/2021 10:40:28 AM Current Meds Medication NameInstruction Csqonolept-RPUA-Djechpzh 50-300-40 MG Oral CapsuleTAKE 1 CAPSULE BY MOUTH EVERY 4 HOURS NEEDED FOR HEADACHE Cyclobenzaprine HCl - 10 MG Oral TabletTAKE 1 TABLET BY MOUTH TWICE DAILY NEEDED DULoxetine HCl - 60 MG Oral Capsule Delayed Release ParticlesTAKE 1 CAPSULE BY MOUTH DAILY. DO NOT CRUSH OR CHEW Emgality 120 MG/ML Subcutaneous Solution Auto-injector Fenofibrate 48 MG Oral Tablet HYDROcodone-Acetaminophen 5-325 MG Oral TabletTAKE 1 TABLET BY MOUTH NEEDED up to TWICE DAILY Lisinopril 20 MG Oral TabletTAKE 1 TABLET BY MOUTH DAILY Topiramate 50 MG Oral TabletTAKE 1 TABLET TWICE DAILY. Verapamil HCl ER 120 MG Oral Tablet Extended Release Xarelto 20 MG Oral Tablet Signatures Electronically signed by : Bee Blackmon MD; Apr 27 2022 10:06AM EST (Author) Normal VoAPPs CBC AUTO DIFFon 04-14-2022 BASO # 0.0 103/ul Normal 0.0-0.1 [facility] Comment on above: Performed By: #### C BC #### [facility] [address] [place] [address] [address] Devonte Rivas Basophils/100 WBC (Bld) 0.4 % Normal 0.2-2.0 [facility] Comment on above: Performed By: #### C BC #### [facility] [address] [place] [address] [address] Devonte Rivas EO # 0.1 103/ul Normal 0.0-0.7 [facility] Comment on above: Performed By: #### C BC #### [facility] [address] [place] [address] [address] Devonte Rivas Eosinophils/100 WBC (Bld) 0.9 % Normal 0.9-7.0 [facility] Comment on above: Performed By: #### C BC #### [facility] [address] [place] [address] [address] Devonte Rivas Erythrocyte distribution width (RBC) [Ratio] 12.4 % Normal 11.0-15.0 [facility] Comment on above: Performed By: #### C BC #### [facility] [address] [place] [address] Dr. Devonte Rivas Hematocrit (Bld) [Volume fraction] 42.4 % Normal 42.0-54.0 [facility] Comment on above: Performed By: #### C BC #### [facility] [address] [place] [address] Dr. Devonte Rivas Hemoglobin (Bld) [Mass/Vol] 14.8 g/dL Normal 14.0-18.0 [facility] Comment on above: Performed By: #### C BC #### [facility] [address] [place] [address] Dr. Devonte Rivas IG # 0.03 10e3/ul Normal 0.00-0.03 [facility] Comment on above: Performed By: #### C BC #### [facility] [address] [place] [address] Dr. Devonte Rivas IG % 0.6 % Critically high 0.0-0.5 [facility] Comment on above: Performed By: #### C BC #### [facility] [address] [place] [address] Dr. Devonte Rivas LYMPH # 1.7 103/ul Normal 1.2-3.8 [facility] Comment on above: Performed By: #### C BC #### [facility] [address] [place] [address] Dr. Devonte Rivas Lymphocytes/100 WBC (Bld) 31.6 % Normal 20.5-60.0 [facility] Comment on above: Performed By: #### C BC #### [facility] [address] [place] [address] Dr. Devonte Rivas MANUAL DIFF REQ NO Normal [facility] Comment on above: Performed By: #### C BC #### [facility] [address] [place] [address] Dr. Devonte Rivas MCH (RBC) [Entitic mass] 31.3 pg Normal 25.9-34.0 [facility] Comment on above: Performed By: #### C BC #### [facility] [address] [place] [address] Dr. Devonte Rivas MCHC (RBC) [Mass/Vol] 34.9 g/dL Normal 29.9-35.2 [facility] Comment on above: Performed By: #### C BC #### [facility] [address] [place] [address] Dr. Devonte Rivas MCV (RBC) [Entitic vol] 89.6 fL Normal 80.0-94.0 [facility] Comment on above: Performed By: #### C BC #### [facility] [address] [place] [address] [address] Devonte Rivas MONO # 0.9 103/ul Critically high 0.3-0.8 [facility] Comment on above: Performed By: #### C BC #### [facility] [address] [place] [address] [address] Devonte Rivas Monocytes/100 WBC (Bld) 15.6 % Critically high 1.7-12.0 [facility] Comment on above: Performed By: #### C BC #### [facility] [address] [place] [address] Dr. Devonte Rivas NEUT # 2.8 103/ul Normal 1.4-6.5 [facility] Comment on above: Performed By: #### C BC #### [facility] [address] [place] [address] Dr. Devonte Rivas Neutrophils/100 WBC (Bld) 50.9 % Normal 43.0-75.0 [facility] Comment on above: Performed By: #### C BC #### [facility] [address] [place] [address] Dr. Devonte Rivas Platelet mean volume (Bld) [Entitic vol] 9.4 fL Critically low 9.5-13.5 [facility] Comment on above: Performed By: #### C BC #### [facility] [address] [place] [address] Dr. Devonte Rivas PLT 194 103/ul Normal 150-450 [facility] Comment on above: Performed By: #### C BC #### [facility] [address] [place] [address] Dr. Devonte Rivas RBC 4.73 106/ul Normal 4.70-6.10 [facility] Comment on above: Performed By: #### C BC #### [facility] [address] [place] [address] Dr. Devonte Rivas WBC 5.4 103/ul Normal 4.0-11.0 [facility] Comment on above: Performed By: #### C #### [facility] [id number] Devonte Rivas CTA CHEST WO W CONon 022 CTA CHEST WO W CON EXAMINATION: CTA DEMI ST WO W CON HISTORY: SHORTNESS OF BREATH COMPARISON: 08/03/2019 TECHNIQUE: Axial, Coronal, and Sagittal images were created without and with IV contrast. Dose reduction techniques were achieved by using automated exposure control and/or adjustment of mA and/or kV according to patient size and/or use of iterative reconstruction technique. FINDINGS: LUNGS: Low lung volumes. Mild to moderate scattered groundglass opacities with a lower lobe predominance. Mild peribronchial thickening. PLEURA: No mass, effusion, or pneumothorax. VASCULATURE: No filling defect within the central pulmonary arterial tree KAYLA: No mass or adenopathy. MEDIASTINUM: No mass or adenopathy. CARDIAC: No enlargement, pericardial thickening, or significant calcification. AORTA: No aneurysm or dissection. CHEST WALL: No mass or axillary adenopathy. BONES: No bone lesion or fracture. LIMITED ABDOMEN: Diffuse hypoattenuation of the liver consistent with hepatic steatosis OTHER: Negative. IMPRESSION: No central pulmonary thromboembolic disease Mild to moderate bilateral groundglass opacities. Consider atypical or multifocal bilateral pneumonia Electronically authenticated by: DANIEL BENITEZ Date: 2022-04-14 10:29 Normal [facility] Covid-19 PCR (CVDTBH)on 03-20 SARS-CoV-2 (COVID-19) RNA LEATHA+probe Ql (Unsp spec) Detected Critically abnormal NOT DETECTED [facility] Comment on above: Result Comment: This test is not yet approved or cleared by the [place] FDA. When there are no FDA-approved or cleared tests available, and other criteria are met, FDA can make tests available under an emergency access mechanism called an Emergency Use Authorization (EUA). The EUA for this test is supported by the [place] of Health and Human Service's declaration that circumstances exist to justify the emergency use of in vitro diagnostics for the detection and/or diagnosis of the virus that causes COVID-19. This EUA will remain in effect for the duration of the COVID-19 declaration justifying emergency of IVDs, unless it is terminated or revoked by the FDA (after which the test may no longer be used). Performed By: #### C VDTBH #### [facility] [address] [place] [address] Dr. Devonte Rivas INFLUENZA A AND B AGon 04-14 [facility] SEE BELOW Normal [facility] Comment on above: Result Comment: Nega tive for Flu A protein angiten. Infection due to Flu A cannot be ruled out. Flu A angiten in the sample may be below the detection limit of the test. Performed By: #### I NFLUAB #### [facility] [address] [place] [address] Dr. Devonte Rivas INFLUBNEG SEE BELOW Normal [facility] Comment on above: Result Comment: Nega tive for Flu B protein antigen. Infection due to Flu B cannot be ruled out. Flu B antigen in the sample may be below the detection limit of the test. Performed By: #### I NFLUAB #### [facility] [address] [place] [address] Dr. Devonte Rivas INFLUENZA A AG Negative Normal NEGATIVE SEE COMMENT [facility] Comment on above: Performed By: #### I NFLUAB #### [facility] [address] [place] [address] Dr. Devonte Rivas INFLUENZA B AG Negative Normal NEGATIVE SEE COMMENT [facility] Comment on above: Performed By: #### I NFLUAB #### [facility] [address] [place] [address] Dr. Devonte Rivas INTERNAL CONTROLS Within Normal Limits Normal Wi thin Normal Limits [facility] Comment on above: Performed By: #### I NFLUAB #### [facility] [address] [place] [address] Dr. Devonte Rivas PROF CHEM 8 (BAS METB)on Anion gap [Moles/Vol] 12.0 mmol/L Normal [facility] Comment on above: Performed By: #### H STROPN, BMP #### [facility] [address] [place] [address] Dr. Devonte Rivas Calcium [Mass/Vol] 9.2 mg/dL Normal 8.5-10.1 [facility] Comment on above: Performed By: #### H STROPN, BMP #### [facility] [address] [address] [address] Devonte Rivas Chloride [Moles/Vol] 100 mmol/L Normal 98-107 [facility] Comment on above: Performed By: #### H STROPN, BMP #### [facility] [address] [place] [address] Dr. Devonte Rivas CO2 [Moles/Vol] 26.2 mmol/L Normal 21.0-32.0 [facility] Comment on above: Performed By: #### H STROPN, BMP #### [facility] [address] [place] [address] Dr. Devonte Rivas Creatinine [Mass/Vol] 0.99 mg/dL Normal 0.70-1.30 [facility] Comment on above: Performed By: #### H STROPN, BMP #### [facility] [address] [place] [address] Dr. Devonte Rivas EGFR-AF [place] >60 Normal >=60 [facility] Comment on above: Performed By: #### H STROPN, BMP #### [facility] [address] [place] [address] Dr. Devonte Rivas EGFR-NON AF [place] >60 Normal >=60 [facility] Comment on above: Performed By: #### H STROPN, BMP #### [facility] [address] [place] [address] Dr. Devonte Rivas Glucose [Mass/Vol] 163 mg/dL Critically high 74-106 [facility] Comment on above: Performed By: #### H STROPN, BMP #### [facility] [address] [address] [address] Devonte Rivas Potassium [Moles/Vol] 4.2 mmol/L Normal 3.5-5.1 [facility] Comment on above: Performed By: #### H STROPN, BMP #### [facility] [address] [place] [address] Dr. Devonte Rivsa Sodium [Moles/Vol] 134 mmol/L Critically low 136-145 [facility] Comment on above: Performed By: #### H CECELIA, BMP #### [facility] [address] [address] [address] Devonte Rivas Urea nitrogen [Mass/Vol] 11.0 mg/dL Normal 7.0-18.0 [facility] Comment on above: Performed By: #### H CECELIA, BMP #### [facility] [address] [address] [address] Devonte Rivas Urea nitrogen/Creatinine [Mass ratio] 11.1 mg/mg Normal [facility] Comment on above: Performed By: #### H CECELIA, BMP #### [facility] [address] [place] [address] Dr. Devonte Rivas TROPONIN, HIGH SENSITIVITYon 04-14-2022 HSTROP <4.0 Normal 4.0-76.1 [facility] Comment on above: Result Comment: CUT- OFF POINTS HAVE BEEN ESTABLISHED BASED ON THE FOURTH UNIVERSAL DEFINITIONS OF MYOCARDIAL INFARCTION. THE UPPER REFERENCE LIMIT (URL) OF TROPONIN, DEFINED THE 99TH PERCENTILE OF cTnI DISTRIBUTION IN A REFERENCE POPULATION, HAS BEEN CONFIRMED THE DECISION THRESHOLD FOR CA DIAGNOSIS. Performed By: #### H CECELIA, BMP #### [facility] [address] [place] [address] Dr. Devonte Rivas XR CHEST 1 Von 04-14-2022 XR CHEST 1 V EXAM: Chest x-ray HISTORY: . SHORTNESS OF BREATH . COMPARISON: 10/26/2010 TECHNIQUE: Frontal and lateral chest. FINDINGS: Heart and vascularity are unremarkable. Lungs are free of focal infiltrates. EKG leads overlie the chest. Impression: No acute heart or lung disease identified. Electronically authenticated by: DANIEL MALDONADO Date: 2022-04-14 09:12 Normal [facility] Established Visit (Orthopaed ic Surgery)on 09-29-2021 Established Visit (Orthopaedic Surgery) Diagnoses/Problems Assessed Lumbar postlaminectomy syndrome (722.83) (M96.1) Chief Complaint FUV- back pain History of Present Illness Patient returns to review his lumbar MRI. He continues to have primarily axial lower back pain, some radiation into his legs. His symptoms are worse with activity. I reviewed the MRI personally. This shows excellent central and lateral recess decompression at L3-4 where his XLIF surgery was. There is no significant residual stenosis at any other level. I discussed the importance of aerobic exercise and ongoing weight loss with him. He also takes chronic opioids, I discussed the importance of weaning off of these medications if at all possible. Can follow-up with me on an as needed basis. This note was dictated using speech recognition software and was not corrected for spelling or grammatical errors. Active Problems Problems Benign essential HTN (401.1) (I10) Class 1 obesity with body mass index (BMI) of 34.0 to 34.9 in adult (278.00,V85.34) (E66.9,Z68.34) Inappropriate diet or eating habits (V69.1) (Z72.4) Lower back pain (724.2) (M54.50) Lumbar postlaminectomy syndrome (722.83) (M96.1) Lumbar radiculopathy (724.4) (M54.16) YANNI on CPAP (327.23,V46.8) (G47.33,Z99.89) Pulmonary embolism (415.19) (I26.99) Spinal stenosis of lumbar region with neurogenic claudication (724.03) (M48.062) Suture reaction (998.89) (T81.89XA) Past Medical History Problems History of Class 2 severe obesity with serious comorbidity and body mass index (BMI) of 36.0 to 36.9 in adult (278.01,V85.36) (E66.01,Z68.36) Resolved Date: 16 Sep 2021 Social History Problems Non-smoker (V49.89) (Z78.9) Allergies Medication No Known Drug Allergies Recorded By: Tara Gonzalez; 01/07/2021 10:40:28 AM Current Meds Medication NameInstruction Bkeoxvcceh-DVTM-Dyiwnknl 50-300-40 MG Oral CapsuleTAKE 1 CAPSULE BY MOUTH EVERY 4 HOURS NEEDED FOR HEADACHE Cyclobenzaprine HCl - 10 MG Oral TabletTAKE 1 TABLET BY MOUTH TWICE DAILY NEEDED DULoxetine HCl - 60 MG Oral Capsule Delayed Release ParticlesTAKE 1 CAPSULE BY MOUTH DAILY. DO NOT CRUSH OR CHEW Emgality 120 MG/ML Subcutaneous Solution Auto-injector Fenofibrate 48 MG Oral Tablet HYDROcodone-Acetaminophen 5-325 MG Oral TabletTAKE 1 TABLET BY MOUTH NEEDED up to TWICE DAILY Lisinopril 20 MG Oral TabletTAKE 1 TABLET BY MOUTH DAILY Topiramate 50 MG Oral TabletTAKE 1 TABLET TWICE DAILY. Verapamil HCl ER 120 MG Oral Tablet Extended Release Xarelto 20 MG Oral Tablet Signatures Electronically signed by : Bee Blackmon MD; Sep 29 2021 12:05PM EST (Author) Normal [facility] Visiton 09-16-2021 Follow-up visit Diagnoses/Problems Class 1 obesity with body mass index (BMI) of 34.0 to 34.9 in adult (278.00,V85.34) (E66.9,Z68.34) Inappropriate diet or eating habits (V69.1) (Z72.4) Orders Class 1 obesity with body mass index (BMI) of 34.0 to 34.9 in adult Comprehensive Metabolic Panel; Status:Active; Requested for:16Sep2021; Hemoglobin A1C; Status:Active; Requested for:16Sep2021; Insulin Level, Serum; Status:Active; Requested for:16Sep2021; Lipid Panel; Status:Active; Requested for:16Sep2021; Class 1 obesity with body mass index (BMI) of 34.0 to 34.9 in adult, Inappropriate diet or eating habits Renew: Topiramate 50 MG Oral Tablet; TAKE 1 TABLET TWICE DAILY Provider Impressions 56-year-old male with class II severe obesity with comorbidities of hypertension, sleep apnea, chronic low back pain with radiculopathy. Endorses limited activity due to orthopedic issues, currently working with physical therapy and pain management as well as orthopedics to optimize pain control to enhance exercise. - Continue stationary biking, gradually increase duration/frequency to 30 min/3x/week as able - continue to follow reduced kcal diet, 1800 focus on protein at each meal, unprocessed carbohydrates, weigh and measure out portions of carbohydrates from starchy sources, keep portion to <1/3 cup, incorporate more non starchy vegetables. - update metabolic labs as ordered Plan today: -Continue topiramate as finding beneficial in reduction of added sugar beverages and appetite reduction. Reviewed medication administration, use, potential side effects and contraindications. Reviewed past and active medical history, patient has no current contraindications to use of medication for adjunct treatment in weight management. Reviewed that medications for weight loss may be short or chcf, but that if weight loss is not realized within 12 weeks of initiating, medication will be discontinued to review alternative treatment options. Risks and benefits discussed. Emphasized that medications are used as adjunct to diet and exercise for weight management > 50% of time spent counseling on the importance of following recommended dietary modifications including: role of diet, low calorie and carbohydrate restrictions, limiting fast food and avoiding high sugar beverages. Also discussed, the role of exercise with an ultimate goal of at least 250-300 minutes a week for weight loss and weight maintenance. Follow-up: 3-4 mo Chief Complaint An interactive audio and video telecommunication system which permits real time communications between the patient (at the originating site) and provider (at the distant site) was utilized to provide this telehealth service. Verbal consent was requested and obtained from LYLY QUINN on this date, 09/16/2021 02:15 PM , for a telehealth visit. History of Present Illness 56 year old M presenting for weight management follow up. Continued topiramate as adjunct to diet/exercise last visit. Diet Recall: B - cup of coffee (black) V8 juice L - [place] (low calorie tortilla) turkey with salad D - Chicken, vegetables Beverages - water Exercise: Stationary bike 3x/week 15 minutes Goals: to lose weight to help my back Pmhx:spinal stenosis, post laminectomy syndrome, elevated glucose, PE on xarelto, HTN, YANNI Pertinent surgical hx: lumbar laminectomy, arthroscopy of both knees Personal Weight History: He injured his back about 3 years ago and has not been able to maintain physical activity over the last 3 years, he has gained about 50+ pounds. He remembers weighing about 225 in early 50s and had less issues with back. 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[employer] Sleep patterns: 8hrs YANNI on CPAP Alcohol: 1-2 on the weekends Tobacco: None Recreational Drugs: None Review of Systems - denies palps, cp, sob denies GERD, n/v/d + YANNI Active Problems Benign essential HTN (401.1) (I10) Inappropriate diet or eating habits (V69.1) (Z72.4) Lower back pain (724.2) (M54.50) Lumbar postlaminectomy syndrome (722.83) (M96.1) Lumbar radiculopathy (724.4) (M54.16) YANNI on CPAP (327.23,V46.8) (G47.33,Z99.89) Pulmonary embolism (415.19) (I26.99) Spinal stenosis of lumbar region with neurogenic claudication (724.03) (M48.062) Suture reaction (998.89) (T81.89XA) Past Medical History History of Class 2 severe obesity with serious comorbidity and body mass index (BMI) of 36.0 to 36.9 in adult (278.01,V85.36) (E66.01,Z68.36) Resolved Date: 16 Sep 2021 Social History Non-smoker (V49.89) (Z78.9) Allergies No Known Drug Allergies Recorded By: Tara Gonzalez; 01/07/2021 10:40:28 AM Current Meds Med (more content not included)... Normal [facility] MRI Lumbar Spine w/oon 09-05 MRI Lumbar Spine w/o HISTORY: Low back pain with radiculopathy. COMPARISON:??CT abdomen and pelvis 08/05/2021 TECHNIQUE:??Multiplanar multisequence MRI of the lumbar spine was performed without contrast. FINDINGS: Mild levoscoliosis.??Conus medullaris terminates at a normal level. Lumbar vertebral body height are maintained.??Postsurgical changes of posterior lumbar spine fusion at L4-L5 with associated susceptibility artifact. Intervertebral disc spacer is present at L3-L4. Disc desiccation throughout the lumbar spine. Mild intervertebral disc height loss at L2-L3 and L5-S1. No soft tissue fluid collection. L1-L2: No significant disc bulge, neural foraminal or spinal canal stenosis. L2-L3:??Postsurgical changes of right hemilaminectomy. Small disc bulge. No neural foraminal or spinal canal stenosis. L3-L4:??Evaluation of this level is limited secondary to susceptibility artifact from metallic hardware. No high-grade spinal canal stenosis. Suspect mild right neuroforaminal stenosis. L4-L5:??No significant disc bulge. Evaluation of the neural foramina is significantly limited secondary to susceptibility artifact.??Possible mild if not moderate right neuroforaminal stenosis. No definitive high-grade left neural foraminal stenosis. L5-S1:??Small disc bulge. Assessment for neural foraminal stenosis is precluded secondary to susceptibility artifact. No high-grade spinal canal stenosis. IMPRESSION: Postsurgical and degenerative changes of the lumbar spine as detailed. Report reported and signed by Chandler Tomlinson on 09/08/2021 1127 Normal [facility] CT Abdomen/Pelvis w/ Contras ton 08-05-2021 CT Abdomen/Pelvis w/ Contrast HISTORY: Intermittent right upper quadrant pain. COMPARISON: None available TECHNIQUE: Multiple contiguous axial images were obtained of the abdomen and pelvis with contrast. Multiplanar reformats were acquired at the CT console. Oral contrast was also given. Delayed images were obtained. All CT scans at this facility use dose modulation, iterative reconstruction, and/or weight based dosing when appropriate to reduce radiation dose to as low as reasonably achievable. FINDINGS: Lung bases are clear. Solitary hypodensity within the right lobe of the liver measuring approximately 7 mm is too small to definitely characterize but is most likely a cyst. Diffuse hypoattenuation of the liver. Postsurgical changes of cholecystectomy. The stomach, pancreas, spleen, and adrenal glands are within normal limits. The kidneys enhance uniformly. Mild bilateral perinephric stranding. No urinary tract calculi or hydronephrosis.No evidence of renal mass. Urinary bladder is well-distended. The prostate is not enlarged. No retroperitoneal or mesenteric lymphadenopathy. Abdominal aorta is non-aneurysmal. IVC filter is present. No small bowel obstruction. A few scattered colonic diverticuli are identified. No overt colonic mass or pericolonic inflammation. The appendix is within normal limits. No free air or free fluid. No acute osseous abnormality. Postsurgical changes of lumbar spine fusion. IMPRESSION: Bilateral perinephric stranding is likely chronic however correlation with urinalysis is recommended to exclude pyelonephritis. Hepatic steatosis. Colonic diverticulosis without diverticulitis. Report reported and signed by Chandler Tomlinson on 08/06/2021 0906 Normal [facility] Established Visit (Orthopaed ic Surgery)on 07-28-2021 Established Visit (Orthopaedic Surgery) Diagnoses/Problems Assessed Lumbar postlaminectomy syndrome (722.83) (M96.1) Orders Lumbar postlaminectomy syndrome MRI L Spine without Contrast; Status:Hold For - Scheduling,Retrospective Authorization; Requested for:[id number]; Radiologist to Determine Optimal Study : Y Does the patient have a Cochlear Implant, Pacemaker, Defibrilator, Pacing Wire, Brain Aneurysm Clip, Implanted Nerve or Bone Graft Simulator, Implanted Breast Tissue Foreign Broadcast Specialist, Glucose Monitor, or Neulasta Device? : No What are the patient's signs and symptoms? : pain Chief Complaint FUV- back pain History of Present Illness Patient returns for follow-up. He is now nearly 1 year status post L3-4 XLIF with lateral plate for junctional stenosis. His symptoms have returned, primarily lower back pain with some radiation into the legs. He is absolutely miserable. He completed a course of physical therapy. He has also lost 30 pounds working with the bariatric nurse practitioners. On exam he has extreme back pain with straight leg raise. He walks with an antalgic gait using a cane. No focal neurologic deficits. I did recommend at this point we check an MRI of his lumbar spine with metal suppression protocol. He will follow-up with me after the MRI to discuss the results and further treatment options. This note was dictated using speech recognition software and was not corrected for spelling or grammatical errors. Active Problems Problems Benign essential HTN (401.1) (I10) Class 2 severe obesity with serious comorbidity and body mass index (BMI) of 36.0 to 36.9 in adult (278.01,V85.36) (E66.01,Z68.36) Inappropriate diet or eating habits (V69.1) (Z72.4) Lower back pain (724.2) (M54.50) Lumbar postlaminectomy syndrome (722.83) (M96.1) Lumbar radiculopathy (724.4) (M54.16) YANNI on CPAP (327.23,V46.8) (G47.33,Z99.89) Pulmonary embolism (415.19) (I26.99) Spinal stenosis of lumbar region with neurogenic claudication (724.03) (M48.062) Suture reaction (998.89) (T81.89XA) Social History Problems Non-smoker (V49.89) (Z78.9) Allergies Medication No Known Drug Allergies Recorded By: Tara Gonzalez; 01/07/2021 10:40:28 AM Current Meds Medication NameInstruction Ffrjuhjmsz-PBGZ-Umzibirc 50-300-40 MG Oral CapsuleTAKE 1 CAPSULE BY MOUTH EVERY 4 HOURS NEEDED FOR HEADACHE Cyclobenzaprine HCl - 10 MG Oral TabletTAKE 1 TABLET BY MOUTH TWICE DAILY NEEDED DULoxetine HCl - 60 MG Oral Capsule Delayed Release ParticlesTAKE 1 CAPSULE BY MOUTH DAILY. DO NOT CRUSH OR CHEW Fenofibrate 48 MG Oral Tablet HYDROcodone-Acetaminophen 5-325 MG Oral TabletTAKE 1 TABLET BY MOUTH NEEDED up to TWICE DAILY Lisinopril 20 MG Oral TabletTAKE 1 TABLET BY MOUTH DAILY Topiramate 50 MG Oral TabletTAKE 1 TABLET TWICE DAILY. Verapamil HCl ER 120 MG Oral Tablet Extended Release Xarelto 20 MG Oral Tablet Signatures Electronically signed by : Bee Blackmon MD; Jul 28 2021 11:54AM EST (Author) Normal [facility] Visiton 06-18-2021 Follow-up visit Diagnoses/Problems Class 2 severe obesity with serious comorbidity and body mass index (BMI) of 36.0 to 36.9 in adult (278.01,V85.36) (E66.01,Z68.36) Inappropriate diet or eating habits (V69.1) (Z72.4) Orders Class 2 severe obesity with serious comorbidity and body mass index (BMI) of 36.0 to 36.9 in adult, Inappropriate diet or eating habits Changed: From Topiramate 25 MG Oral Tablet TAKE 2 TABLET Twice daily To Topiramate 50 MG Oral Tablet TAKE 1 TABLET TWICE DAILY Provider Impressions 56-year-old male with class II severe obesity with comorbidities of hypertension, sleep apnea, chronic low back pain with radiculopathy. Endorses limited activity due to orthopedic issues, currently working with physical therapy and pain management as well as orthopedics to optimize pain control to enhance exercise. - continue to follow reduced kcal diet, [id number] focus on protein at each meal, unprocessed carbohydrates, weigh and measure out portions of carbohydrates from starchy sources, keep portion to <1/3 cup, incorporate more non starchy vegetables. Plan today: -Continue topiramate as finding beneficial in reduction of added sugar beverages and appetite reduction. Reviewed medication administration, use, potential side effects and contraindications. Reviewed past and active medical history, patient has no current contraindications to use of medication for adjunct treatment in weight management. Reviewed that medications for weight loss may be short or watcher automat long goods, but that if weight loss is not realized within 12 weeks of initiating, medication will be discontinued to review alternative treatment options. Risks and benefits discussed. Emphasized that medications are used as adjunct to diet and exercise for weight management > 50% of time spent counseling on the importance of following recommended dietary modifications including: role of diet, low calorie and carbohydrate restrictions, limiting fast food and avoiding high sugar beverages. Also discussed, the role of exercise with an ultimate goal of at least 250-300 minutes a week for weight loss and weight maintenance. Follow-up: 12 weeks Chief Complaint An interactive audio and video telecommunication system which permits real time communications between the patient (at the originating site) and provider (at the distant site) was utilized to provide this telehealth service. Verbal consent was requested and obtained from LYLY QUINN on this date, 06/18/2021 02:15 PM , for a telehealth visit. History of Present Illness 56 year old M presenting for weight management follow up. At initial visit referred to outpatient dietitian for nutrition counseling, also started trial of topiramate in effort to assist with appetite reduction and aim to reduce carbonated added sugar beverage. He met with RD and discussed using plate method of meal planning. He has found his appetite has been reduced since adding in topiramate, no side effects He has switched from regular soda to diet soda but only drinking the diet soda if he gets a headache Diet Recall: B - coffee and V8 L - yogurt, granola ([place]erto [place]ican yogurt, 1/4 cup granola), cream of corn 1 cup Snack - pop corner 100 calorie bag D - veggie burger with [place] cheese AND onion (2 burgers) low calorie buns Beverages - water Goals: to lose weight to help my back Pmhx:spinal stenosis, post laminectomy syndrome, elevated glucose, PE on xarelto, HTN, YANNI Pertinent surgical hx: lumbar laminectomy, arthroscopy of both knees Personal Weight History: He injured his back about 3 years ago and has not been able to maintain physical activity over the last 3 years, he has gained about 50+ pounds. He remembers weighing about 225 in early 50s and had less issues with back. 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[employer] Sleep patterns: 8hrs YANNI on CPAP Alcohol: 1-2 on the weekends Tobacco: None Recreational Drugs: None Exercise: Therapy for back 2 x weekly Review of Systems - denies palps, cp, sob denies GERD, n/v/d + YANNI Active Problems Benign essential HTN (401.1) (I10) Class 2 severe obesity with serious comorbidity and body mass index (BMI) of 36.0 to 36.9 in adult (278.01,V85.36) (E66.01,Z68.36) Inappropriate diet or eating habits (V69.1) (Z72.4) Lower back pain (724.2) (M54.50) Lumbar postlaminectomy syndrome (722.83) (M96.1) Lumbar radiculopathy (724.4) (M54.16) YANNI on CPAP (327.23,V46.8) (G47.33,Z99.89) Pulmonary embolism (415.19) (I26.99) Spinal stenosis of lumbar region with neurogenic claudication (724.03) (M48.062) Suture reaction (998.89) (T81.89XA) Social History Non-smoker (V49.89) (Z78.9) Allerg (more content not included)... Normal VoAPPs Nutrition-[place] 05-06-2021 Nutrition-Adult Medical Diagnosis Assessed Class 2 severe obesity with serious comorbidity and body mass index (BMI) of 39.0 to 39.9 in adult, unspecified obesity type (278.01,V85.39) (E66.01,Z68.39) Nutrition Intervention Nutrition Interventions: Food/Nutrient Delivery: Consistent protein diet. Decreased carbohydrate diet. Decreased energy diet. Decreased fat diet. Decreased sodium diet. Increased fiber diet. Increased fluid diet. Increased protein diet. Low saturated fat diet. Modify schedule of intake to limit fasting. 1) Use the plate method to help construct healthy meals by making half of the plate with fruits or non-starchy vegetables, one-quarter of the plate with lean protein sources, one-quarter consisting of whole grains or a starch and one cup of either low fat or plant based milk or water on the side. 2) Choose lean protein sources including chicken, turkey, lean beef (85% lean or higher), pork, seafood, and eggs. Limit intake of processed meats including deli meats, sausages, cerrato, and hot dogs. Aim to include more plant-based sources of protein including tofu, beans, lentils, nuts, nut butters, and pea protein. Limit portion sizes of protein foods to 3 oz or the size of a deck of cards. 3) Eat a variety of fruits and vegetables with a goal to have 5-6 servings per day. A serving size of vegetables is typically 1 cup of raw or cooked vegetable or 2 cups of leafy greens. Choose colorful vegetables from that are dark green; red and orange; beans, or lentils; and others. Be mindful of portions of starchy vegetables such as white potatoes, green peas or yellow corn. 4) Aim to eat at least of your grains from whole grain foods. Examples of whole grains are foods made from 100% whole-wheat flour, oatmeal, and brown rice. Whole grains contain more fiber and nutrients than refined grains or foods made from white or bleached flour. 5) Choose oils or oil blends made from olive, canola, safflower, soybean and corn instead of butter, lard, or whole-fat dairy sources when cooking. Try to eat fish twice a week for their beneficial omega-3 fatty acids and low saturated fat content. [place], mackerel, albacore tuna, sardines, mills and franco trout are good sources of omega-3s. 6) Include physical activity into your day with a goal to meet 150 minutes of moderate-intensity aerobic activity (walking, biking, swimming, or housework) every week. Strength-training or weight-bearing exercise should be included twice a week if you are physically able to. Nutrition Education: Purpose of the Nutrition Education: Weight loss and blood sugar management. Nutrition Relationship to Health/Disease: Obesity and high blood sugar levels. Recommended Modifications: Decreased refined carbohydrates, added sugars, saturated fat, and sodium with increased fiber and protein. Nutrition Education Material/Handout Provided: Placemat and High Protein Snack List. Nutrition Diagnosis Diagnosis 1: new Overweight/obesity related to excessive energy intake and physical inactivity as evidenced by BMI of 39 with estimated intake from dietary recall likely exceeding recommendations for weight loss coupled with infrequent, low intensity and duration physical activity. Diagnosis 2: new Inadequate fiber intake related to food and nutrition knowledge deficit related to types and amount of dietary fiber as evidenced by dietary recall showing daily fiber intake not meeting dietary guidelines recommendation of 25 grams per day for women. Diagnosis 3: new Excessive carbohydrate intake related to food and nutrition knowledge deficit related to types and amount of dietary carbohydrates as evidenced by high glucose (188) found on 11/27/2020. Reason For Visit Reason For Visit: Patient is here for initial nutrition assessment, date: 05/06/2021. Referring provider is Marisol Husain, effective date is 04/23/2021 and expiration date is 04/23/2022. An interactive audio and video telecommunication system which permits real time communications between the patient (at the originating site) and provider (at the distant site) was utilized to provide this telehealth service. Verbal consent was requested and obtained from LYLY QUINN on this date, 05/06/2021 08:00 AM , for a telehealth visit. Patient being seen remotely via telehealth. Spoke with patient via Zoom. I am compliant with HIPAA regulations. History of Present Illness Food/Nutrition related history: Intake: >/= 75% Pt is a 56 y/o male being seen remotely referred for obesity. Pt with hx of HTN, lower back pain, YANNI on CPAP and pulmonary embolism. High glucose (188) found on 11/27/2020. Pt reports injuring his back 3 years ago and has not been working since then. He got back surgery last year and is more mobile. He is seeing [facility] for assistance and was prescribed Topiramate. Pt was instructed to follow an 1800 calorie diet and he is doing this with . He usually skips breakfast in the morning and eats lunch and dinner. May occasionally snack (more content not included)... Normal VoAPPs No Panel Informationon 04-23 [phone] 1 PJ-Cyoqkde-L arma [id number] 303 Work Phone: [phone] GU-Zevbhjg-J arma MAC2 303 Work Phone: [phone] SP-Hmbthyd-B arma MAC2 303 Work Phone: [phone] DK-Itjgjao-I arma MAC2 303 Work Phone: Comment on above: Age: 56Height: 73 in Sex: MLevel of Activity: Sedentary (little or no exercise)Weight: 292 lb 2138 1 HY-Vkzewrg-N arma MAC[address] Work Phone: [phone] RJ-Bmwwkgs-Z arma MAC[address] Work Phone: Tobacco Screening.on 022 Fall risk assessment a) No falls within the last year BE-Hzroebx-H arma MAC[address] Work Phone: Tobacco use status CPHS b) No JQ-Hewfzdn-A arma MAC[address] Work Phone: Radiologyon 03-10-2021 XR Lumbar spine AP and Lateral Please click on the link to view the study images Normal MG-Orthopaed [facility] Work Phone: SPINE, LUMBOSACRAL; 2 OR 3 V IEWSon 03-10-2021 SPINE, LUMBOSACRAL; 2 OR 3 VIEWS Patient Name: LYLY QUINN STUDY: SPINE, LUMBOSACRAL; 2 OR 3 VIEWS; ; 03/10/2021 11:16 am INDICATION: pain M96.1: Lumbar postlaminectomy syndrome M48.062: Spinal stenosis of lumbar region with neurogenic claudication. COMPARISON: 12/09/2020. ACCESSION NUMBER(S): [id number] ORDERING CLINICIAN: BEE BLACKMON FINDINGS: Lumbosacral spine series performed with 2 images. Postoperative changes of the lumbar spine with hardware are again seen. Hardware components appear intact and not significantly changed. There is L4-5 posterior fusion hardware consisting of bilateral transpedicular screws and connecting rods. Left lateral plate and screw fixation hardware is seen at L3-4 along with an L3-4 disc prosthesis. There is a mild lumbar levocurvature centered at L3-4 similar to prior. Mild-moderate disc space narrowing of L2-3 is similar to prior. No acute fracture, subluxation, or compression deformity is seen. IVC filter again seen. IMPRESSION: Stable intact appearance of lumbar hardware from L3 through L5 as detailed. Lumbar levocurvature centered at L3-4 similar to prior as well as stable mild-moderate disc space narrowing of L2-3. Electronically signed by: JANET VILLARREAL MD Normal [facility] Radiologyon 12-09-2020 XR Lumbar spine AP and Lateral Please click on the link to view the study images Normal MG-Orthopaed [employer] Work Phone: SPINE, LUMBOSACRAL; 2 OR 3 V IEWSon 12-09-2020 SPINE, LUMBOSACRAL; 2 OR 3 VIEWS Patient Name: LYLY QUINN STUDY: Lumbar Spine, 2 views. INDICATION: low back pain. COMPARISON: Outside hospital lumbar spine radiographs 08/29/2020 ACCESSION NUMBER(S): [id number] ORDERING CLINICIAN: BEE BLACKMON FINDINGS: Redemonstration of previous posterior spinal instrumented fusion changes at L4-5 with intact hardware. Interval lateral fusion changes are noted in the left aspect at L3-4 with interbody spacer. Hardware is intact without surrounding lucencies or fractures. Severe L5-S1 facet arthropathy with facet sclerosis. Vertebral body heights are preserved. Posterior elements are intact. IMPRESSION: 1. Interval left lateral instrumented and interbody fusion changes at L3-4, without hardware complication. Electronically signed by: WILLIAMS GUZMAN MD Normal [facility] BASIC METABOLIC PANELon 11-17 ANION GAP Canceled Normal [facility] Comment on above: Order Comment: TEST BASIC METABOLIC PANEL WAS CANCELLED, 12/01/2020 18:56 NO SPECIMEN RECEIVED IN LAB. Performed By: #### B MP #### [facility] [address] [place] [address] BICARBONATE Canceled Normal [facility] Comment on above: Order Comment: TEST BASIC METABOLIC PANEL WAS CANCELLED, 12/01/2020 18:56 NO SPECIMEN RECEIVED IN LAB. Performed By: #### B MP #### [facility] [address] [place] [address] CALCIUM Canceled Normal [facility] Comment on above: Order Comment: TEST BASIC METABOLIC PANEL WAS CANCELLED, 12/01/2020 18:56 NO SPECIMEN RECEIVED IN LAB. Performed By: #### B MP #### [facility] [address] [place] [address] CHLORIDE Canceled Normal [facility] Comment on above: Order Comment: TEST BASIC METABOLIC PANEL WAS CANCELLED, 12/01/2020 18:56 NO SPECIMEN RECEIVED IN LAB. Performed By: #### B MP #### [facility] [address] [place] [address] CREATININE Canceled Normal [facility] Comment on above: Order Comment: TEST BASIC METABOLIC PANEL WAS CANCELLED, 12/01/2020 18:56 NO SPECIMEN RECEIVED IN LAB. Performed By: #### B MP #### [facility] [address] [place] [address] GFR- AM. Canceled Normal [facility], [place] Comment on above: Order Comment: TEST BASIC METABOLIC PANEL WAS CANCELLED, 12/01/2020 18:56 NO SPECIMEN RECEIVED IN LAB. Result Comment: CALC ULATIONS OF ESTIMATED GFR ARE PERFORMED USING THE MDRD STUDY EQUATION FOR THE IDMS-TRACEABLE CREATININE METHODS. CLIN CHEM 2007;53:766-72 Performed By: #### B MP #### [facility] [address] [place] [address] GFR-NON AM. Canceled Normal [facility] Comment on above: Order Comment: TEST BASIC METABOLIC PANEL WAS CANCELLED, 12/01/2020 18:56 NO SPECIMEN RECEIVED IN LAB. Performed By: #### B MP #### [facility] [address] [place] [address] GLUCOSE Canceled Normal [facility] Comment on above: Order Comment: TEST BASIC METABOLIC PANEL WAS CANCELLED, 12/01/2020 18:56 NO SPECIMEN RECEIVED IN LAB. Performed By: #### B MP #### [facility] [address] [place] [address] POTASSIUM Canceled Normal [facility] Comment on above: Order Comment: TEST BASIC METABOLIC PANEL WAS CANCELLED, 12/01/2020 18:56 NO SPECIMEN RECEIVED IN LAB. Performed By: #### B MP #### [facility] [address] [place] [address] SODIUM Canceled Normal [facility] Comment on above: Order Comment: TEST BASIC METABOLIC PANEL WAS CANCELLED, 12/01/2020 18:56 NO SPECIMEN RECEIVED IN LAB. Performed By: #### B MP #### [facility] [address] [place] [address] UREA NITROGEN Canceled Normal [facility] [place] Comment on above: Order Comment: TEST BASIC METABOLIC PANEL WAS CANCELLED, 12/01/2020 18:56 NO SPECIMEN RECEIVED IN LAB. Performed By: #### B MP #### [facility] [address] [place] [address] CBCon 12-01-2020 HCT Canceled Normal [facility] Comment on above: Order Comment: TEST CBC WAS CANCELLED, 12/01/2020 18:56 NO SPECIMEN RECEIVED IN LAB. Performed By: #### C BC #### [facility] [address] [place] [address] HGB Canceled Normal [facility] Comment on above: Order Comment: TEST CBC WAS CANCELLED, 12/01/2020 18:56 NO SPECIMEN RECEIVED IN LAB. Performed By: #### C BC #### [facility] [address] [place] [address] MCHC Canceled Normal [facility] Comment on above: Order Comment: TEST CBC WAS CANCELLED, 12/01/2020 18:56 NO SPECIMEN RECEIVED IN LAB. Performed By: #### C BC #### [facility] [address] [place] [address] MCV Canceled Normal [facility] Comment on above: Order Comment: TEST CBC WAS CANCELLED, 12/01/2020 18:56 NO SPECIMEN RECEIVED IN LAB. Performed By: #### C BC #### [facility] [address] [place] [address] NUCLEATED RBC Canceled Normal [facility] [place] Comment on above: Order Comment: TEST CBC WAS CANCELLED, 12/01/2020 18:56 NO SPECIMEN RECEIVED IN LAB. Performed By: #### C BC #### [facility] [address] [place] [address] PLT Canceled Normal [facility] Comment on above: Order Comment: TEST CBC WAS CANCELLED, 12/01/2020 18:56 NO SPECIMEN RECEIVED IN LAB. Performed By: #### C BC #### [facility] [address] [place] [address] RBC Canceled Normal [facility] Comment on above: Order Comment: TEST CBC WAS CANCELLED, 12/01/2020 18:56 NO SPECIMEN RECEIVED IN LAB. Performed By: #### C BC #### [facility] [address] [place] [address] RDW-CV Canceled Normal [facility] Comment on above: Order Comment: TEST CBC WAS CANCELLED, 12/01/2020 18:56 NO SPECIMEN RECEIVED IN LAB. Performed By: #### C BC #### [facility] [address] [place] [address] WBC Canceled Normal [facility] Comment on above: Order Comment: TEST CBC WAS CANCELLED, 12/01/2020 18:56 NO SPECIMEN RECEIVED IN LAB. Performed By: #### C BC #### [facility] [address] [place] [address] BASIC METABOLIC PANELon 11-17 ANION GAP Canceled Normal [facility] Comment on above: Order Comment: TEST BASIC METABOLIC PANEL WAS CANCELLED, 11/29/2020 10:53 NO SPECIMENRECEIVED IN LAB. Performed By: #### B MP ####[id number] [place] [address] BICARBONATE Canceled Normal [facility] Comment on above: Order Comment: TEST BASIC METABOLIC PANEL WAS CANCELLED, 11/29/2020 10:53 NO SPECIMENRECEIVED IN LAB. Performed By: #### B MP ####[id number] [place] [address] CALCIUM Canceled Normal [facility] Comment on above: Order Comment: TEST BASIC METABOLIC PANEL WAS CANCELLED, 11/29/2020 10:53 NO SPECIMENRECEIVED IN LAB. Performed By: #### B MP ####[id number] [place] [address] CHLORIDE Canceled Normal [facility] Comment on above: Order Comment: TEST BASIC METABOLIC PANEL WAS CANCELLED, 11/29/2020 10:53 NO SPECIMENRECEIVED IN LAB. Performed By: #### B MP ####[id number] [place] [address] CREATININE Canceled Normal [facility] Comment on above: Order Comment: TEST BASIC METABOLIC PANEL WAS CANCELLED, 11/29/2020 10:53 NO SPECIMENRECEIVED IN LAB. Performed By: #### B MP ####[id number] [place] [address] GFR- AM. Canceled Normal [facility], [place] Comment on above: Order Comment: TEST BASIC METABOLIC PANEL WAS CANCELLED, 11/29/2020 10:53 NO SPECIMENRECEIVED IN LAB. Result Comment: CALC ULATIONS OF ESTIMATED GFR ARE PERFORMED USING THE MDRD STUDY EQUATION FOR THE IDMS-TRACEABLE CREATININE METHODS. CLIN CHEM 2007;53:766-72 Performed By: #### B MP ####[id number] [place] [address] GFR-NON AM. Canceled Normal [facility] Comment on above: Order Comment: TEST BASIC METABOLIC PANEL WAS CANCELLED, 11/29/2020 10:53 NO SPECIMENRECEIVED IN LAB. Performed By: #### B MP ####[id number] [place] [address] GLUCOSE Canceled Normal [facility] Comment on above: Order Comment: TEST BASIC METABOLIC PANEL WAS CANCELLED, 11/29/2020 10:53 NO SPECIMENRECEIVED IN LAB. Performed By: #### B MP ####[id number] [place] [address] POTASSIUM Canceled Normal [facility] Comment on above: Order Comment: TEST BASIC METABOLIC PANEL WAS CANCELLED, 11/29/2020 10:53 NO SPECIMENRECEIVED IN LAB. Performed By: #### B MP ####[id number] [place] [address] SODIUM Canceled Normal [facility] Comment on above: Order Comment: TEST BASIC METABOLIC PANEL WAS CANCELLED, 11/29/2020 10:53 NO SPECIMENRECEIVED IN LAB. Performed By: #### B MP ####[id number] [place] [address] UREA NITROGEN Canceled Normal [facility] [place] Comment on above: Order Comment: TEST BASIC METABOLIC PANEL WAS CANCELLED, 11/29/2020 10:53 NO SPECIMENRECEIVED IN LAB. Performed By: #### B MP ####[id number] [place] [address] CBCon 11-29-2020 HCT Canceled Normal [facility] Comment on above: Order Comment: TEST CBC WAS CANCELLED, 11/29/2020 10:53 NO SPECIMEN RECEIVED IN LAB. Performed By: #### C BC ####[id number] [place] [address] HGB Canceled Normal [facility] Comment on above: Order Comment: TEST CBC WAS CANCELLED, 11/29/2020 10:53 NO SPECIMEN RECEIVED IN LAB. Performed By: #### C BC ####[id number] [place] [address] MCHC Canceled Normal [facility] Comment on above: Order Comment: TEST CBC WAS CANCELLED, 11/29/2020 10:53 NO SPECIMEN RECEIVED IN LAB. Performed By: #### C BC ####[id number] [place] [address] MCV Canceled Normal [facility] Comment on above: Order Comment: TEST CBC WAS CANCELLED, 11/29/2020 10:53 NO SPECIMEN RECEIVED IN LAB. Performed By: #### C BC ####[id number] [place] [address] NUCLEATED RBC Canceled Normal [facility] [place] Comment on above: Order Comment: TEST CBC WAS CANCELLED, 11/29/2020 10:53 NO SPECIMEN RECEIVED IN LAB. Performed By: #### C BC ####[id number] [place] [address] PLT Canceled Normal [facility] Comment on above: Order Comment: TEST CBC WAS CANCELLED, 11/29/2020 10:53 NO SPECIMEN RECEIVED IN LAB. Performed By: #### C BC ####[id number] [place] [address] RBC Canceled Normal [facility] Comment on above: Order Comment: TEST CBC WAS CANCELLED, 11/29/2020 10:53 NO SPECIMEN RECEIVED IN LAB. Performed By: #### C BC ####[id number] [place] [address] RDW-CV Canceled Normal [facility] Comment on above: Order Comment: TEST CBC WAS CANCELLED, 11/29/2020 10:53 NO SPECIMEN RECEIVED IN LAB. Performed By: #### C BC ####[id number] [place] [address] WBC Canceled Normal [facility] Comment on above: Order Comment: TEST CBC WAS CANCELLED, 11/29/2020 10:53 NO SPECIMEN RECEIVED IN LAB. Performed By: #### C BC ####[id number] [place] [address] BASIC METABOLIC PANELon 11-17 Anion gap [Moles/Vol] 15 mmol/L Normal 10 - 20 [facility] Comment on above: Performed By: #### B MP #### [facility] [address] [place] [address] Calcium [Mass/Vol] 9.7 mg/dL Normal 8.6 - 10.6 [facility] Comment on above: Performed By: #### B MP #### [facility] [address] [place] [address] Chloride [Moles/Vol] 99 mmol/L Normal 98 - 107 [facility] Comment on above: Performed By: #### B MP #### [facility] [address] [place] [address] Creatinine [Mass/Vol] 0.81 mg/dL Normal 0.50 - 1.30 [facility] Comment on above: Performed By: #### B MP #### [facility] [address] [place] [address] GFR- AM. >60 Normal >60 [facility], [place] Comment on above: Result Comment: CALC ULATIONS OF ESTIMATED GFR ARE PERFORMED USING THE MDRD STUDY EQUATION FOR THE IDMS-TRACEABLE CREATININE METHODS. CLIN CHEM 2007;53:766-72 Performed By: #### B MP #### [facility] [address] [place] [address] GFR-NON AM. >60 Normal >60 [facility] Comment on above: Performed By: #### B MP #### [facility] [address] [place] [address] Glucose [Mass/Vol] 188 mg/dL High 74 - 99 [facility] Comment on above: Performed By: #### B MP #### [facility] [address] [place] [address] HCO3 (Bld) [Moles/Vol] 26 mmol/L Normal 21 - 32 [facility] Comment on above: Performed By: #### B MP #### [facility] [address] [place] [address] Potassium [Moles/Vol] 5.1 mmol/L Normal 3.5 - 5.3 [facility] Comment on above: Performed By: #### B MP #### [facility] [address] [place] [address] Sodium [Moles/Vol] 135 mmol/L Low 136 - 145 [facility] Comment on above: Performed By: #### B MP #### [facility] [address] [place] [address] Urea nitrogen [Mass/Vol] 16 mg/dL Normal 6 - 23 [facility] Comment on above: Performed By: #### B MP #### [facility] [address] [place] [address] CBCon 11-27-2020 Erythrocyte distribution width (RBC) [Ratio] 12.8 % Normal 11.5 - 14.5 [facility] Comment on above: Performed By: #### C BC #### [facility] [address] [place] [address] Hematocrit (Bld) [Volume fraction] 43.9 % Normal 41.0 - 52.0 [facility] Comment on above: Performed By: #### C BC #### [facility] [address] [place] [address] Hemoglobin (Bld) [Mass/Vol] 14.2 g/dL Normal 13.5 - 17.5 [facility] Comment on above: Performed By: #### C BC #### [facility] [address] [place] [address] MCHC (RBC) [Mass/Vol] 32.3 g/dL Normal 32.0 - 36.0 [facility] Comment on above: Performed By: #### C BC #### [facility] [address] [place] [address] MCV (RBC) [Entitic vol] 94 fL Normal 80 - 100 [facility] Comment on above: Performed By: #### C BC #### [facility] [address] [place] [address] NUCLEATED RBC 0.0 /100 WBC Normal 0.0-0.0 [facility], [place] Comment on above: Performed By: #### C BC #### [facility] [address] [place] [address] Platelets (Bld) [#/Vol] 237 10*3/uL Normal 150 - 450 [facility] Comment on above: Performed By: #### C BC #### [facility] [address] [place] [address] RBC 4.65 x10E12/L Normal 4.50 - 5.90 [facility] Comment on above: Performed By: #### C BC #### [facility] [address] [place] [address] WBC (Bld) [#/Vol] 8.5 10*3/uL Normal 4.4 - 11.3 [facility] Comment on above: Performed By: #### C BC #### [facility] [address] [place] [address] Daily Progress Note-[place] 11-27-2020 Daily Progress Note-Orthopaedics Service: Orthopaedics Subjective Data: LYLY QUINN is a 55 year old Male who is Hospital Day # 2 and POD #1 for 1. L3-4 XLIF ;2. ;3. ;4. ;5. No acute events overnight. Pain well controlled on current regimen. Denies any new numbness/tingling or weakness, denies headache, abdominal pain, chest pain, difficulty breathing, nausea/vomiting. required ICx1, still has not voided. Objective Data: Objective Information: Pain reported at 11/27 4:00: 9 = Severe Physical Exam by System: Constitutional: Awake/alert/oriented x3, no distress, alert and cooperative Eyes: EOMI, clear sclera Head/Neck: Neck supple, trachea midline Respiratory/Thorax: Breathing normally on RA Cardiovascular: RRR by peripheral pulses Gastrointestinal: Soft, ntnd Musculoskeletal: L1: SILT L2: SILT Hip flexors 5/5 Right; 5/5 Left L3: SILT Knee extension 5/5 Right; 5/5 Left L4: SILT Tib Ant. (Dorsiflexion) 5/5 Right; 5/5 Left L5: SILT EHL 5/5 Right; 5/5 Left S1: SILT Planter flexion 5/5 Right; 5/5 Left Neurological: A&Ox3 Lymphatic: No significant lymphadenopathy Psychological: Appropriate mood and behavior Skin: Warm and dry, no rashes Assessment and Plan: Code Status: Code StatusFull Code Assessment: 55M s/p L3-[address] Blackmon on 11/26. Plan: - Clear Liquid diet, advance as tolerated. 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 Scheduled tylenol. Robaxin. Continue home psych meds. - Volume/Electrolytes: Continue NS at 100cc/hr; HLIV with good PO intake - Weight bearing: Upright in bed as tolerated, elevate HOB, no precautions - Respiratory: > 92% on RA - Infection: perioperative Ancef x 24 hours - Transfusion: no indication for blood transfusion, f/u AM CBC - DVT ppx: start Lovenox 40 daily at 9 PM today for 5 days, then go back to home Xarelto dose indefinitely - Drains: none - Cardiac: hold home ACEI - Ulcer ppx: continue home PPI - Glycemic control: No history of diabetes - Decadron 8q8 x 3 - Toradol x 24 hours - Robaxin scheduled Home pending PT. Kevin Marshall MD, PGY-2 Orthopedic Spine Team [id number] Available on [facility] Orthopedic Spine Team Kevin Marshall, PGY-2 ([id number]) Amrit Long PGY-3 ([id number]) Lambert Suarez PGY-4 ([id number]) Please call telephone betting clerk resident ([phone]) nights after 6pm and weekends Attestation: Note Completion: I am a: Resident/Fellow Attending AttestationI reviewed the resident/fellows documentation and discussed the patient with the resident/fellow. I agree with the resident/fellows medical decision making as documented in the note. Electronic Signatures: Bee Blackmon) (Signed 11-Dec-2020 15:25) Authored: Note Completion Co-Signer: Service, Subjective Data, Objective Data, Assessment and Plan, Note Completion Kevin Marshall (Resident)) (Signed 27-Nov-2020 06:49) Authored: Service, Subjective Data, Objective Data, Assessment and Plan, Note Completion Last Updated: 11-Dec-2020 15:25 by Bee Blackmon) Normal [facility] Laboratory - Chemistry and C hemistry - challengeon 11-27-2020 Anion gap [Moles/Vol] 15 mmol/L 10 - 20 [facility] Work Phone: Calcium [Mass/Vol] 9.7 mg/dL 8.6 - 10.6 MG[facility]Ort hopaed [facility] Work Phone: Chloride [Moles/Vol] 99 mmol/L 98 - 107 [facility] Work Phone: CO2 [Moles/Vol] 26 mmol/L 21 - 32 [facility] a[facility] Work Phone: Creatinine [Mass/Vol] 0.81 mg/dL See Below [facility] Work Phone: Comment on above: Reference Range: 0.5 0 - 1.30 Glucose [Mass/Vol] 188 mg/dL above high threshold 74 - 99 [facility] Work Phone: Potassium [Moles/Vol] 5.1 mmol/L 3.5 - 5.3 [facility] Work Phone: Sodium [Moles/Vol] 135 mmol/L below low threshold 136 - 145 [facility] Work Phone: Urea nitrogen [Mass/Vol] 16 mg/dL 6 - 23 [facility] Work Phone: Laboratory - Hematology and Cell countson 11-27-2020 Erythrocyte distribution width (RBC) [Ratio] 12.8 % See Below [facility] Work Phone: Comment on above: Reference Range: 11. 5 - 14.5 Hematocrit (Bld) [Volume fraction] 43.9 % See Below [facility] Work Phone: Comment on above: Reference Range: 41. 0 - 52.0 Hemoglobin (Bld) [Mass/Vol] 14.2 g/dL See Below [facility] Work Phone: Comment on above: Reference Range: 13. 5 - 17.5 MCHC (RBC) [Mass/Vol] 32.3 g/dL See Below [facility] Work Phone: Comment on above: Reference Range: 32. 0 - 36.0 MCV (RBC) [Entitic vol] 94 fL 80 - 100 [facility] Work Phone: Platelets (Bld) [#/Vol] 237 10*3/uL 150 - 450 [facility] Work Phone: RBC (Bld) [#/Vol] 4.65 {x10E12/L} See Below [facility] Work Phone: Comment on above: Reference Range: 4.5 0 - 5.90 WBC (Bld) [#/Vol] 8.5 10*3/uL 4.4 - 11.3 [facility]rt hopa[facility] Work Phone: No Panel Informationon 11-27 >60 >60 [facility] Work Phone: Comment on above: CALCULATIONS OF LUCHO MATED GFR ARE PERFORMED USING THE MDRD STUDY EQUATION FOR THE IDMS-TRACEABLE CREATININE METHODS. CLIN CHEM 2007;53:766-72 0.0 {/100_WBC} 0.0-0.0 [facility] Work Phone: Daily Progress Note-Orthopae thanh 11-26-2020 Daily Progress Note-Orthopaedics Service: Orthopaedics Subjective Data: LYLY QUINN is a 55 year old Male who is Hospital Day # 1 and POD #0 for 1. L3-4 XLIF ;2. ;3. ;4. ;5. Recovering appropriately in PACU. Objective Data: Objective Information: Pain reported at 11/26 14:07: 10 = Severe Physical Exam by System: Constitutional: awake and alert Eyes: atraumatic, EOMI Head/Neck: atraumatic, normocephalic Respiratory/Thorax: non-labored breathing Cardiovascular: acyanotic Gastrointestinal: abd soft, non-distended Musculoskeletal: L1: SILT L2: SILT Hip flexors 3/5 Right; 3/5 Left L3: SILT Knee extension 4/5 Right; 4/5 Left L4: SILT Tib Ant. (Dorsiflexion) 5/5 Right; 5/5 Left L5: SILT EHL 5/5 Right; 5/5 Left S1: SILT Planter flexion 5/5 Right; 5/5 Left Neurological: A&Ox3 Psychological: appropriate mood and behavior Medication: Medications: Continuous Medications ------- 1. Lactated Ringers Infusion: 1000 mL IntraVenous Scheduled Medications ------- 1. DULoxetine: 60 mg Oral Daily 2. Pantoprazole: 40 mg Oral Daily PRN Medications ------- 1. Albuterol 2.5 mg/ 3 mL Nebulizer Soln: 3 mL Inhalation Once 2. HYDROmorphone Injectable: 0.2 mg IntraVenous Push Every 5 Minutes 3. HYDROmorphone Injectable: 0.4 mg IntraVenous Push Every 5 Minutes 4. Ondansetron Injectable: 4 mg IntraVenous Push Once 5. Promethazine IV Piggy Back: 6.25 mg IntraVenous Piggyback Once Currently Suspended Medications ------- 1. Lisinopril: 20 mg Oral Daily Assessment and Plan: Code Status: Code StatusFull Code Assessment: 55M POD0 s/p L3-[address] Blackmon on 11/26 Plan: - Clear Liquid diet, advance as tolerated. Bowel regimen - MANAGEMENT AND BUDGET ANALYST, will attempt to wean POD#1. Scheduled tylenol. Robaxin. Continue home psych meds. - Volume/Electrolytes: Continue NS at 100cc/hr; HLIV with good PO intake - Weight bearing: Upright in bed as tolerated, elevate HOB, no precautions - Respiratory: > 92% on RA - Infection: perioperative Ancef x 24 hours - Transfusion: no indication for blood transfusion, f/u AM CBC - DVT ppx: start Lovenox 40 daily tomorrow at 9 PM for 5 days, then go back to home Xarelto dose indefinitely - Drains: none - Cardiac: hold home ACEI - Ulcer ppx: continue home PPI - Glycemic control: No history of diabetes - Decadron 8q8 x 3 - Toradol x 24 hours - Robaxin scheduled Home tomorrow following pain control and PT. Lambert Suarez MD Orthopedic Surgery PGY-4 Pager: [phone] Please page consult resident ([phone]) from 6pm-8am and on weekends. Attestation: Note Completion: I am a: Resident/Fellow Attending AttestationI saw and evaluated the patient. I personally obtained the raygoza and critical portions of the history and physical exam or was physically present for raygoza and critical portions performed by the resident/fellow. I reviewed the resident/fellows documentation and discussed the patient with the resident/fellow. I agree with the resident/fellows medical decision making as documented in the note. I personally evaluated the patient [id number] Electronic Signatures: Bee Blackmon) (Signed 11-Dec-2020 15:23) Authored: Note Completion Co-Signer: Service, Subjective Data, Objective Data, Assessment and Plan, Note Completion Lambert Suarez (Resident)) (Signed 26-Nov-2020 14:32) Authored: Service, Subjective Data, Objective Data, Assessment and Plan, Note Completion Last Updated: 11-Dec-2020 15:23 by Bee Blackmon) Normal [facility] Discharge [id number] Discharge Profile2 Discharge Orders: Significant Events: PE: Past Medical History Deep Vein Thrombosis (DVT): Past Medical History GERD: Past Medical History hypertension: Past Medical History SARS-CoV-2 (COVID-19): Immunizations, 22-Jul-2020, Pfizer-Biotech COVID-19 Vacc 30 mcg/0.3ml IM Suspension SARS-CoV-2 (COVID-19): Immunizations, 01-Jul-2020, Pfizer-BioTech COVID-19 Vacc 30 mcg/0.3ml IM suspension Hospital Providers: Provider RoleProvider Name Bee Diana DNAR: DNAR Status: none Activity: activity with assistance PROGRESSIVE WALKING AT LEAST 2X/DAY. May shower. WHEN NO DRAINAGE FROM INCISIONAL AREA FOR 48 HOURS. May not return to school/work until follow-up visit with Dr. Blackmon Instructions: May not drive until follow-up visit. No pushing, pulling, or lifting objects greater than 10 pounds. Weight-bearing Instructions: full weight bearing. Other activity instructions: NO EXCESSIVE BENDING/TWISTING, NO HEAVY HOUSE/YARD WORK. Diet: Dietresume normal diet Wound Care 1: Wound SiteLateral/ Flank Wound Typesurgical incision Change Dressingdaily UNTIL NO LONGER DRAINING, THEN YOU CAN LEAVE THE DRSG. OFF Cleanse Withsoap and water, ONCE THE INCISION IS NO LONGER DRAINING AND YOU ARE ABLE TO SHOWER. Cover Withabdominal dressing Tape Withpaper tape Instructionsno lotions, creams, or tub soaks Other InstructionsIf there is a prineo dressing (Strip) over your incision, do not remove it with your dressing changes. The dressing will slowly lift away from the skin over time. Additional Orders: Additional Instructions MAY USE HEAT OR ICE TO YOUR BACK NEEDED FOR COMFORT NO NSAIDS (ADVIL, IBUPROFEN, ALEVE... ETC.) FOR 8 WEEKS, THEY HAVE A BAD EFFECT ON HEALING OF FUSION. Call Provider If (Homegoing Patients): Breathing faster than normal. Breathing harder than normal or having retractions. Temperature is greater than 102 degrees. Chills. Urinating less than 4 times per day. Acting very sleepy and difficult to awaken. Vomiting (throwing up) and not able to eat or drink for 12 hours. Any new concerning symptoms. ANY CONCERNS OVER APPEARANCE OF INCISION PLEASE CALL IN ADVANCE WHEN RUNNING LOW ON PAIN MEDS. A PRESCRIPTION EITHER WILL NEED TO BE ELECTRONICALLY SENT OR PICKED UP IN ONE OF THE OFFICES. Hospital Course (Home Care/Gold Form): Hospital Course: Hospital Course: include significant abnormal lab values 55 year-old male who presented with lumbar spinal stenosis. Patient is now s/p L3-4 XLIF on 11/[address] Blackmon. On the day of surgery, patient was identified in the pre-operative holding area and agreeable to proceed with surgery. Written consent was obtained. Please see operative note for further details of this procedure. Patient received 24 hours of charmaine-operative antibiotics. Patient recovered in the PACU before transfer to a regular nursing floor. Patient was started on oxycodone, tylenol for pain control. Physical therapy recommended continued recovery at home with continued physical therapy and wound care. On the day of discharge, patient was afebrile with stable vital signs. Patient was neurovascularly intact at time of discharge. Patient was started on Lovenox 40 daily at 9 PM on 11/27, continued for 5 days, and then will resume home Xarelto dose for DVT prophylaxis. Patient will follow-up with Dr. Blackmon in 2 weeks for post-operative visit. Infectious Disease: PPD Statusnot given MRSAno VREno C. Diffno Other Resistant Organismno Isolation Typenone Provider FINAL REVIEW of Orders: Final Review: Final Review of Medication Reconciliation and Orders Completedby Physician Reviewing ProviderLambert Suarez MD (Resident) at 26-Nov-2020 14:34:02 Appointments: Follow-Up Appointment 01: Physician/Dept/ServiceDr. Bee Blackmon/ Orthopaedic Surgery/ Spine Reason for ReferralPostoperative Follow-Up Appointment Scheduled Date/[id number] 11:15 [id number], Phone NumberOffice: ([employer] - [phone] CommentsPlease Call Tara Gonzalez RN at [phone] For Any Post-Op Questions Electronic Signatures: Tara Gonzalez (RN) (Signed 26-Nov-2020 13:51) Authored: Discharge Orders, Appointments, Gold Form - [employer] Summary Bee Blackmon) (Signed 10-Dec-2020 17:40) Co-Signer: Discharge Orders, Hospital Course (Home Care/Gold Form), Provider FINAL REVIEW of Orders, Appointments, Gold Form - [employer] Summary Lambert Suarez (Resident)) (Signed 26-Nov-2020 14:34) Entered: Hospital Course (Home Care/Gold Form), Provider FINAL REVIEW of Orders Authored: Discharge Orders, Hospital Course (Home Care/Gold Form), Provider FINAL REVIEW of Orders, Appointments, Gold Form - [employer] Summary Last Updated: 10-Dec-2020 17:40 by Bee Blackmon) Normal [facility] GLUCOSE-POCTon 11-26-2020 Glucose [Mass/Vol] 186 mg/dL High 74 - 99 [facility] Comment on above: Performed By: #### G BABS #### [facility] [id number] [facility] [address] Laboratory - Chemistry and C hemistry - challengeon 11-26-2020 Glucose [Mass/Vol] 186 mg/dL above high threshold 74 - 99 [facility] Work Phone: No Panel Informationon 11-26 Please click on the link to view the study images Normal [facility] Work Phone: Operative Reports - [facility] [place] [address] Patient Name: RYAN. Taylor QUINN : 1965 Date of Service: 11/26/2020 Patient Location: TMOR [id number] Patient Type: I Surgeon: Bee Blackmon MD Report Type: Operative Reports PREOPERATIVE DIAGNOSIS: 1. Junctional lumbar spinal stenosis. 2. Dynamic instability, L3-L4. 3. Neurogenic claudication. 4. Bilateral leg radiculopathy. POSTOPERATIVE DIAGNOSIS: 1. Junctional lumbar spinal stenosis. 2. Dynamic instability, L3-L4. 3. Neurogenic claudication. 4. Bilateral leg radiculopathy. OPERATION/PROCEDURE: 1. Anterior lumbar interbody fusion at L3-L4 via direct lateral transpsoas approach. 2. Insertion of interbody device, NuVasive Modulus CoRoent cage size 10 x 22 x 55 mm with 10 degrees of lordosis. 3. Anterior instrumentation at L3-L4 with NuVasive Decade plate. SURGEON: Bee Blackmon MD WET SUIT GLUER(S): Lambert Suarez MD ANESTHESIA: General. CLINICAL NOTE AND INDICATIONS: The patient is a 55-year-old male who has undergone prior lumbar spine surgery and instrumented fusion at L4-L5 posteriorly. He presented to his surgeon at an outside institution with recurrent lumbar spinal stenosis after failure of conservative treatment. He has a history of factor V Leiden and had developed multiple blood clots in the past. He currently is anticoagulated on Xarelto and has an IVC filter in place. He was referred for tertiary care center due to his clotting history. The patient's imaging studies demonstrated coronal plane instability and retrolisthesis at L3-L4 with disk space collapse and moderate to severe lateral recess stenosis. This was mobile on flexion/extension as well as lateral bending. Given these findings as well as his history of pulmonary embolism with need for anticoagulation, we discussed indirect decompression through an anterior approach. I explained this is typically equally effective to posterior lumbar decompression surgery and would not require entry into the spinal canal. Therefore, there was a lower risk of epidural hematoma. We did discuss the risks of the lateral transpsoas approach including the need for postoperative anticoagulation and possible retroperitoneal hematoma. Despite postoperative anticoagulation, I also explained that he is at an elevated risk for perioperative DVT and/or pulmonary embolism. The patient understood the risks and benefits of surgery. His questions were answered, and he wished to proceed. DESCRIPTION OF PROCEDURE: The patient was brought back to the operating room, and general anesthesia was induced. Leads for neural monitoring using directionally stimulated EMGs were placed in the lower extremities. SCDs were applied. The patient was positioned in the lateral decubitus position with the left side up. All bony prominences were well padded. The hips and knees were flexed, and the patient was secured to the table using tape in a standard fashion. Grounding electrodes were applied, and a twitch test was performed. The bed was broken slightly, and fluoroscopy was brought in. The L3-L4 disk space was identified under perfect AP and lateral conditions using the bed rotation to lock in the x-rays. The disk space was then marked on the patient's lateral spine. The lateral spine was then prepped and draped in the usual sterile fashion. A time-out was performed, and preoperative antibiotics were given. A small counterincision was made just posterior to the planned lateral incision over the disk space for retroperitoneal access. The abdominal wall was identified and dissected bluntly in line with its fibers. The retroperitoneum was entered digitally. The retroperitoneal contents were palpated, and all structures were swept off the lateral spine digitally. The incision was then made directly over the L3-L4 disk space. Again, the abdominal wall was identified and dissected bluntly in line with its fibers. Using my finger through the counterincision, the initial dilator was walked down through lateral psoas. Localization was used using lateral fluoroscopy. The dilator was then passed through the psoas muscle. Under EMG stimulation, we stimulated in a 360-degree fashion. The lumbar plexus was noted to be posterior to the dilators. Sequential dilation was performed with the directionally stimulated EMGs. The MaXcess retractor was then applied over the dilators and affixed to the table mounted arm. The dilators were removed. A free-running EMG probe was passed through the operative field. No neurologic structures were identified. A disk space mauro was then placed on the posterior blade into the L3-L4 disk. The retractor was then opened in the anterior to posterior direction primarily. Lateral fluoroscopy was used to confirm retractor (more content not included)... Normal [facility] Order Reconciliationon 11-26 Order Reconciliation Page 1 Discharge Reconciliation Document Reconciliation Type: Discharge requested on behalf of Lambert Suarez (Resident) done by Lambert Suarez ( (Resident)) Discharge - Reconciliation: 26-Nov-2020 14:37 by: Lambert Suarez ( (Resident)) Home Medications EnteredHOME MEDICATIONS AT DISCHARGE DateReconciliation Comment/ Additional Information DULoxetine 60 mg oral delayed release capsule 1 cap(s) orally once a day 19-Nov-2020 15:24 DULoxetine 60 mg oral delayed release capsule 1 cap(s) orally once a day 19-Nov-2020 15:24 DULoxetine 60 mg oral delayed release capsule is continued as DULoxetine 60 mg oral delayed release capsule fenofibrate 48 mg oral tablet 1 tab(s) orally once a day 19-Nov-2020 15:23 fenofibrate 48 mg oral tablet 1 tab(s) orally once a day 19-Nov-2020 15:23 fenofibrate 48 mg oral tablet is continued as fenofibrate 48 mg oral tablet lisinopril 20 mg oral tablet 1 tab(s) orally once a day 19-Nov-2020 15:22 lisinopril 20 mg oral tablet 1 tab(s) orally once a day 19-Nov-2020 15:22 lisinopril 20 mg oral tablet is continued as lisinopril 20 mg oral tablet NexIUM 24HR 20 mg oral delayed release tablet 1 tab(s) orally once a day (in the morning) 19-Nov-2020 15:23 NexIUM 24HR 20 mg oral delayed release tablet 1 tab(s) orally once a day (in the morning) 19-Nov-2020 15:23 NexIUM 24HR 20 mg oral delayed release tablet is continued as NexIUM 24HR 20 mg oral delayed release tablet Xarelto 20 mg oral tablet 1 tab(s) orally once a day (in the evening) 19-Nov-2020 15:22 Xarelto 20 mg oral tablet 1 tab(s) orally once a day (in the evening) STARTING ON DECEMBER 02 AND STOP TAKING LOVENOX. Discontinued; Copy/Discontinue Xarelto 20 mg oral tablet is continued and modified Current OrdersDateHOME MEDICATIONS AT DISCHARGE DateReconciliation Comment/ Additional Information Albuterol 2.5 mg/ 3 mL Nebulizer Soln (PROVENTIL)DOSE = 3 mL Inhalation Once via Nebulizer, PRN Wheezing (PACU)Clinician Notes: Charmaine-operative order ONLY 26-Nov-2020 14:19 Albuterol 2.5 mg/ 3 mL Nebulizer Soln is not required DULoxetine Delayed Release Capsule (CYMBALTA)DOSE = 60 mg Oral Daily 26-Nov-2020 14:21 DULoxetine is not required HYDROmorphone Injectable (DILAUDID)DOSE = 0.2 mg IntraVenous Push Every 5 Minutes, PRN Pain - Mod (4-6) (PACU) if unable to take oralClinician Notes: Charmaine-operative order ONLYMax total of 4 mg regardless of dose. 26-Nov-2020 14:19 HYDROmorphone Injectable is not required HYDROmorphone Injectable (DILAUDID)DOSE = 0.4 mg IntraVenous Push Every 5 Minutes, PRN Pain - Severe (7-10) (PACU)Clinician Notes: Charmaine-operative order ONLYMax total of 4 mg regardless of dose. 26-Nov-2020 14:19 HYDROmorphone Injectable is not required Lactated Ringers Infusion IV Bag Volume = 1,000 mL Run at: 100 mL/hr IntraVenous Clinician Notes: Charmaine-operative order ONLY 26-Nov-2020 14:19 Lactated Ringers Infusion is not required Lisinopril Tablet (PRINIVIL, ZESTRIL)DOSE = 20 mg Oral Daily 26-Nov-2020 14:21 Lisinopril is not required Methocarbamol Injectable (ROBAXIN)DOSE = 1,000 mg IntraVenous Push Every 8 Hours 26-Nov-2020 14:32 Methocarbamol Injectable is not required Ondansetron Injectable (ZOFRAN)DOSE = 4 mg IntraVenous Push Once, PRN PONV, first lineClinician Notes: Charmaine-operative order ONLY 26-Nov-2020 14:19 Ondansetron Injectable is not required Pantoprazole Enteric Coated Tablet (PROTONIX)DOSE = 40 mg Oral DailyNotes from Pharmacy: Substitution for Esomeprazole 40 mg Oral Capsule Daily 26-Nov-2020 14:21 Pantoprazole is not required Promethazine IV Piggy Back in Sodium Chloride 0.9% 50 mL (PHENERGAN)DOSE = 6.25 mg Once, PRN persistent PONV if first line ineffectiveRecommended Infusion Time: 15 minute(s)Clinician Notes: Charmaine-operative order ONLY 26-Nov-2020 14:19 Promethazine IV Piggy Back is not required Home Medications Added During Discharge Reconciliation Colace 100 mg oral capsule 1 cap(s) orally 2 times a day as needed for constipation enoxaparin 40 mg/0.4 mL injectable solution 40 milligram(s) subcutaneously once a day starting on 11/27/20 and continuing for 5 days, then stop and resume home Xarelto. methocarbamol 500 mg oral tablet 2 tab(s) orally every 8 hours MiraLax oral powder for reconstitution 17 gram(s) orally once a day as needed for constipation oxyCODONE 5 mg oral tablet 1-2 tab(s) orally every 4-6 hours as needed for pain for 7 days., G89.18, Dx: acute post-operative pain Tylenol 325 mg oral tablet 2 tab(s) orally every 6 hours for 30 days. All Active Home Medications at time of Discharge Reconciliation: 26-Nov-2020 14:37 Colace 100 mg oral capsule 1 cap(s) orally 2 times a day as needed for constipation DULoxetine 60 mg oral delayed release capsule 1 cap(s) orally once a day enoxaparin 40 mg/0.4 mL injectable solution 40 milligram(s) subcutaneously once a day starting on 11/27/20 and continuing for 5 days, th (more content not included)... Normal [facility] Order Reconciliation Page 1 Admission Reconciliation Document Reconciliation Type: Admission from OR requested on behalf of Lambert Suarez (Resident) done by Lambert Suarez ( (Resident)) Admission from OR - Reconciliation: 26-Nov-2020 14:21 by: Lambert Suarez ( (Resident)) Home MedicationsEnteredLast Dose TakenReconciled with current Order Reconciliation Comment/ Additional Information DULoxetine 60 mg oral delayed release capsule 1 cap(s) orally once a day [id number] AM DULoxetine Delayed Release Capsule (CYMBALTA)DOSE = 60 mg Oral DailyDULoxetine 60 mg oral delayed release capsule continued as the inpatient order DULoxetine fenofibrate 48 mg oral tablet 1 tab(s) orally once a [id number]-2020 AM Reviewed and Held lisinopril 20 mg oral tablet 1 tab(s) orally once a [id number] AM Lisinopril Tablet (PRINIVIL, ZESTRIL)DOSE = 20 mg Oral Dailylisinopril 20 mg oral tablet continued as the inpatient order Lisinopril NexIUM 24HR 20 mg oral delayed release tablet 1 tab(s) orally once a day (in the morning)-Nov AM Pantoprazole Enteric Coated Tablet (PROTONIX)DOSE = 40 mg Oral DailyNotes from Pharmacy: Substitution for Esomeprazole 40 mg Oral Capsule DailyNexIUM 24HR 20 mg oral delayed release tablet continued as the inpatient order Pantoprazole Xarelto 20 mg oral tablet 1 tab(s) orally once a day (in the evening) [id number] Reviewed and Held Additional Current Orders Albuterol 2.5 mg/ 3 mL Nebulizer Soln (PROVENTIL)DOSE = 3 mL Inhalation Once via Nebulizer, PRN Wheezing (PACU)Clinician Notes: Charmaine-operative order ONLY HYDROmorphone Injectable (DILAUDID)DOSE = 0.2 mg IntraVenous Push Every 5 Minutes, PRN Pain - Mod (4-6) (PACU) if unable to take oralClinician Notes: Charmaine-operative order ONLYMax total of 4 mg regardless of dose. HYDROmorphone Injectable (DILAUDID)DOSE = 0.4 mg IntraVenous Push Every 5 Minutes, PRN Pain - Severe (7-10) (PACU)Clinician Notes: Charmaine-operative order ONLYMax total of 4 mg regardless of dose. Lactated Ringers Infusion IV Bag Volume = 1,000 mL Run at: 100 mL/hr IntraVenous Clinician Notes: Charmaine-operative order ONLY Ondansetron Injectable (ZOFRAN)DOSE = 4 mg IntraVenous Push Once, PRN PONV, first lineClinician Notes: Charmaine-operative order ONLY Promethazine IV Piggy Back in Sodium Chloride 0.9% 50 mL (PHENERGAN)DOSE = 6.25 mg Once, PRN persistent PONV if first line ineffectiveRecommended Infusion Time: 15 minute(s)Clinician Notes: Charmaine-operative order ONLY Normal [facility] Patient Profile - Preop v2on 11-26-2020 Patient Profile - Preop v2 Profile: Initial Info: How to be AddressedRyan Spoken Language PreferredEnglish Stated Reason for Admissionl3-4 cage Primary Contact Name and NumberRenee, Patient Belongingssee preop checklist Medications Brought to Hospitalno General Health: Weight in kg129.7 kilogram(s) Weight in bbv506.9 pound(s) Weight Methodactual (measured) Scale Typestanding Height in feet6 feet Height in inches1 inch(es) Height in cm185.4 centimeter(s) Height Methodstated BMI (kg/m2)37.732 square meter Patient or Family Member Reaction to Anesthesiano previous reaction Health Mgmt: Symptoms/Conditions Managed at Homecardiovascular Cardiovascular Symptoms/Conditionshypert ension Barriers to Managing Healthnone Relationship/Environ: Lives Withspouse Resource/Environmental Concernsnone Substance: Smoking Statusnever smoker Alcohol Useoccasionally Risk Screens: COVID-19 Screening Completedno exposure or symptoms Travel or ExposureNO travel to International locations in the past 30 days Advance Directive/DNRno During the past month, have you often been bothered by feeling down, depressed or hopelessno During the past month, have you often had little interest or pleasure in doing thingsno Have you had any thoughts of harming anyone elseno Risk Screen Not Applicable/Able to Answerable to be screened In the Past Month: Have you wished you were or could go to sleep and not wake upno In the Past Month: Have you had any actual thoughts of killing yourselfno Lifetime: Have you ever done, started to do, or prepared to do anything to end your lifeno Are you or have you been threatened or abused physically,emotionally or sexually abused by anyoneno Do you feel UNSAFE going back to the place you are livingno Patient is Able to be Assessed for Learningyes Factors Influencing Readiness to Learnanxiety Factors that Impact Ability to Learnnone Devices/Methods Used to Communicatenone Learning Preferencesindividual instruction Cultural Considerationsnone Developmental Considerationsnone Zoroastrian Considerationsnone Other learner availableno Falls RiskPatient location auto qualifies him/her for HIGH RISK. Are there any cultural, spiritual, mandaeism practices/values/needs that are important for us to knowno Pain Scalenumerical 0-10 Pain Scale Educationteaching provided Current Pain Level10 = Severe Acceptable Pain Level4 = Moderate Pain Commentback Chronic Painyes Information Review: Allergies, Home Meds and Significant Events have been Reviewed and Verified with Patient/Familyyes Allergy, Intolerance, Adverse Event: Allergies: No Known Allergies: Active Significant Events: 26-Nov-2020 GERD: Past Medical History, Active 26-Nov-2020 hypertension: Past Medical History, Active 19-Nov-2020 SARS-CoV-2 (COVID-19): Immunizations, Active, Pfizer-Biotech COVID-19 Vacc 30 mcg/0.3ml IM Suspension, 22-Jul-2020 SARS-CoV-2 (COVID-19): Immunizations, Active, Pfizer-BioTech COVID-19 Vacc 30 mcg/0.3ml IM suspension, 01-Jul-2020 Electronic Signatures: Pat Padilla (RN) (Signed 26-Nov-2020 12:05) Authored: Initial Info, General Health, Health Mgmt, Relationship/Environ, Substance, Risk Screens, Additional Information Last Updated: 26-Nov-2020 12:05 by Pat Padilla (RN) Normal [facility] Vital Signs Date Time Vital Sign Value Performing Clinician Facility 09-15-2023 10:11-0400 Body height 184.15 cm DO Kimi Weiss Work Phone: [facility] 09-15-2023 10:11-0400 Body mass index (BMI) [Ratio] 35.2 kg/m2 DO Kimi Weiss Work Phone: [facility] 09-15-2023 10:11-0400 Body weight 119.29 kg DO Kimi Weiss Work Phone: [facility] 09-07-2023 10:35-0400 Diastolic blood pressure 98 mm[Hg] DO Kimi Weiss Work Phone: [facility] 09-07-2023 10:35-0400 Heart rate 102 /min DO Kimi Abhishek Work Phone: [facility] 09-07-2023 10:35-0400 Respiratory rate 20 /min DO Kimi Abhishek Work Phone: [facility] 09-07-2023 10:35-0400 SaO2% (BldA) [Mass fraction] 96 % DO Kimi Weiss Work Phone: [facility] 09-07-2023 10:35-0400 Systolic blood pressure 160 mm[Hg] DO Kimi Weiss Work Phone: [facility] 09-07-2023 10:00-0400 Inhaled oxygen flow rate 3 L/min DO Kimi Weiss Work Phone: [facility] 09-07-2023 09:19-0400 Body height 182.88 cm DO Kimi Weiss Work Phone: [facility] 09-07-2023 09:19-0400 Body weight 120.2 kg DO Kimi Weiss Work Phone: [facility] 09-16-2021 14:17-0400 Body mass index (BMI) [Ratio] 34.45 kg/m2 Kimi Weiss Work Phone: SR-Msbqdnl-Hxkyr [facility] Work Phone: 09-16-2021 14:17-0400 Body surface area Derived from formula 2.36 m2 Kimi Weiss Work Phone: ZS-Fkazuwc-Uouyk [facility] Work Phone: 09-16-2021 14:17-0400 Body weight 115.21 kg Kimi Weiss Work Phone: AH-Vyxgqzm-Lwecu [facility] Work Phone: 07-23-2021 09:45-0400 Body height 184.15 cm Charles Claros Other [facility] Other 07-23-2021 09:45-0400 Body mass index (BMI) [Ratio] 34.51 kg/m2 Charles Claros Other [facility] Other 07-23-2021 09:45-0400 Body weight 117.03 kg Charles Claros Other [facility] Other 06-18-2021 14:17-0500 Body mass index (BMI) [Ratio] 36.75 kg/m2 Kimi Weiss Work Phone: GK-Gzgkxux-Grhtm [facility] Work Phone: 06-18-2021 14:17-0500 Body surface area Derived from formula 2.42 m2 Kimi Weiss Work Phone: SS-Yqkykgh-Qgklk [facility] Work Phone: 06-18-2021 14:17-0500 Body weight 122.93 kg Kimi Weiss Work Phone: JC-Vlfgrls-Dtqfx [facility] Work Phone: 04-23-2021 09:49-0500 Body height 182.88 cm Kimi Weiss Work Phone: OR-Csqytyz-Knvci [facility] Work Phone: 04-23-2021 09:49-0500 Body mass index (BMI) [Ratio] 39.6 kg/m2 Kimi Weiss Work Phone: NN-Deksyjv-Yrgqh [facility] Work Phone: 04-23-2021 09:49-0500 Body surface area Derived from formula 2.5 m2 Kimi Weiss Work Phone: WA-Kqwzhis-Ztuie [facility] Work Phone: 04-23-2021 09:49-0500 Body weight 132.45 kg Kimi Weiss Work Phone: LQ-Atnjyfv-Brdfh [facility] Work Phone: 04-02-2021 09:45-0500 Body height 184.15 cm Charles Claros Other [facility] Other 04-02-2021 09:45-0500 Body mass index (BMI) [Ratio] 35.44 kg/m2 Charles Claros Other [facility] Other 04-02-2021 09:45-0500 Body weight 120.2 kg [address] Claros Other [facility] [employer] Other Encounters Encounter Date Encounter Type Care Provider Facility Start: 01-17-2024 End: 01-17-2024 ambulatory BEE Phillip [facility] Start: 01-03-2024 End: 01-03-2024 ambulatory Kimi Weiss Facility:[facility] Start: 11-30-2023 End: 11-30-2023 ambulatory KARONSavanna RODRIGUEZ Not Available Start: 09-15-2023 End: 09-15-2023 ambulatory Kimi Weiss Facility:[facility] Start: 09-15-2023 End: 09-15-2023 ambulatory DO Kimi Weiss Work Phone: [facility] Work Phone: Start: 09-15-2023 End: 09-15-2023 Patient encounter procedure DO Kimi Weiss Work Phone: [facility] Work Phone: Start: 09-07-2023 End: 09-07-2023 ambulatory Charles Suzannadelma Facility:[facility] Start: 09-07-2023 Non-patient / Non-visit DO Kimi Weiss Work Phone: [facility] Work Phone: Start: 09-07-2023 End: 09-07-2023 Admission to same day surgery center DO Kimi Weiss Work Phone: [facility] Work Phone: Start: 09-07-2023 End: 09-07-2023 ambulatory DO Kimi Weiss Work Phone: [facility] Work Phone: Start: 08-16-2023 [facility] Start: 08-09-2023 End: 08-09-2023 ambulatory THALIA SANDY Not Available Start: 08-05-2023 End: 08-05-2023 ambulatory [facility] Work Phone: Start: 08-05-2023 End: 08-05-2023 Patient encounter procedure [facility] Work Phone: Start: 06-24-2023 End: 06-24-2023 ambulatory Kimi Weiss Facility: [facility] Start: 04-23-2023 End: 04-23-2023 ambulatory Kimi Weiss Facility: [facility] Start: 04-22-2023 End: 04-22-2023 ambulatory Charles Claros Other [facility] Other Start: 04-22-2023 Telephone encounter Charles [facility] [place] Start: 04-08-2023 ambulatory Kimi Weiss Facili ty: [facility] Start: 04-01-2023 End: 04-01-2023 ambulatory Charles Claros Other [facility] Other Start: 04-01-2023 Office outpatient visit 25 minutes Charles Claros [facility] [place] Start: 04-01-2023 Telephone encounter Charles Burnham [facility] Start: 03-29-2023 End: 03-29-2023 ambulatory Kimi Weiss Facility: [facility] Start: 02-26-2023 End: 02-26-2023 ambulatory Kimi Weiss Facility: [facility] Start: 02-01-2023 End: 02-01-2023 ambulatory Kimi Weiss Facility: [facility] Start: 01-21-2023 End: 01-21-2023 ambulatory Charles Claros Other [facility] Other Start: 01-21-2023 Office outpatient visit 25 minutes Charles Claros [facility] [place] Start: 01-21-2023 Telephone encounter Charles HOLT G [facility] Start: 10-06-2022 End: 10-06-2022 ambulatory Charles Claros Other [facility] Other Start: 10-06-2022 Office outpatient visit 25 minutes Charles Claros [facility] [place] Start: 10-06-2022 Telephone encounter Charles HOLT G [facility] Start: 07-23-2022 ambulatory Bee Blackmon Facility :[id number] Start: 06-01-2022 End: 06-01-2022 ambulatory Charles Claros Other [facility] Other Start: 06-01-2022 Office outpatient visit 25 minutes Charles Claros [facility] [place] Start: 06-01-2022 Telephone encounter Charles [facility] [place] Start: 05-13-2022 AUDIT Kimi Rasmussen on Work Phone: HF-Wwkrsuitcinq-Gdmjsywx Work Phone: Start: 05-12-[address] Kimi Weiss Facility:[id number] Start: 04-27-2022 Office outpatient visit 40 minutes Kimi Weiss Work Phone: BV-Zepcktrgdpte-Bbrngine Work Phone: Start: 04-14-2022 End: 04-14-[address] DANIEL BENITEZ Facility:[facility]1 Start: 02-18-2022 End: 02-18-2022 ambulatory Charles Claros Other [facility] Other Start: 02-18-2022 Office outpatient visit 25 minutes Charles Claros [facility] [place] Start: 02-18-2022 Telephone encounter Charles HOLT G [facility] Start: 12-15-2021 End: 12-15-2021 ambulatory Charles Claros Other [facility] Other Start: 12-15-2021 Office outpatient visit 25 minutes Charles Claros [facility] [place] Start: 09-29-2021 Office outpatient ne w 30 minutes Kimi Weiss Work Phone: ZQ-Wrobimtxlfeu-Hyaevghf Work Phone: Start: 09-16-2021 Office outpatient visit 25 minutes Kimi Weiss Work Phone: EY-Igywklo-Cafne [facility] Work Phone: Start: 07-28-2021 Office outpatient visit 15 minutes Kimi Weiss Work Phone: TJ-Gkbmrkqwgxqc-Xoyjfsee Work Phone: Start: 07-23-2021 End: 07-23-2021 ambulatory Charles Claros Other [facility] Other Start: 07-23-2021 Office outpatient visit 25 minutes Charles Claros [facility] [place] Start: 06-18-2021 Office outpatient visit 25 minutes Kimi Weiss Work Phone: WF-Owkmyzg-Ydous [facility] Work Phone: Start: 06-03-2021 PAYAM, Provider : Shobha Gomez, Status: Pen, Time: 8:30 AM Kimi Weiss Work Phone: WZ-Idgueuk-Xyfyv [facility] Work Phone: Start: 06-02-2021 AUDIT Kimi Rasmussen on Work Phone: XC-Bmbcnzm-Lqdhd [facility] Work Phone: Start: 04-23-2021 Current tobacco non-user cad cap copd pv dm Kimi Weiss Work Phone: ZP-Bozwqoo-Esxls [facility] Work Phone: Start: 04-02-2021 End: 04-02-2021 ambulatory Charles Claros Other [facility] Other Start: 04-02-2021 Office outpatient visit 25 minutes Charles Claros [facility] [place] Start: 03-10-2021 Office outpatient visit 15 minutes Kimi Weiss Work Phone: IC-Hqnalljincrl-Dygewxvk Work Phone: Start: 02-05-2021 Office outpatient visit 25 minutes Charles Claros [facility] [place] Start: 08-23-2021 Postop follow up vis it related to original px Kimi Danielle Abhishek Work Phone: LY-Ohnehknpkzir-Clooengu Work Phone: Start: 11-26-2020 End: 11-27-2020 Evaluation and management of inpatient Bee Blackmon [facility] Start: 10-31-2020 Phys/qhp telephone evaluation 21-30 min Referring Provider Unknown AP-Pxjqxtrkdbbx-Xqjxkw Work Phone: Procedures Date Procedure Procedure Detail Performing Clinician Start: 09-15-2023 X-ray of lumbar spin e, four views DO Kimi Abhishek Work Phone: Start: 09-15-2023 Plain X-ray of right hip DO Kimi Weiss Work Phone: Start: 09-07-2023 Local anesthetic sac ral epidural block DO Kimi Weiss Work Phone: Start: 05-04-2022 Follow-up visit Plan of Treatment Date Care Activity Detail Author Start: 09-15-2023 X-ray of lumbar spin e, four views XR lumbar spine AP/LAT/FLX/EXT [facility] Start: 09-15-2023 XR Lumbar spine 4 Views [facility] Start: 09-15-2023 Plain X-ray of right hip XR hip RT min 2V(w/wo pelvis)* [facility] Start: 09-15-2023 XR Hip - right 2 Views [facility] Start: 09-07-2023 [facility] Start: 06-11-2022 EMG, Provider: NEURODIAG EMC01 EMG ARAIZA,[id number], Status: Pen, Time: 10:30 AM EMG, Provider: NEURODIAG EMC01 EMG ARAIZA,[id number], Status: Pen, Time: 10:30 AM LS-Uoayqignacia-Alatunq e Work Phone: Start: 05-04-2022 VIRFURONNELL, Provider : Marisol Husain, Status: Pen, Time: 8:45 AM VIRFUVNYDIA, Provider: Marisol Husain, Status: Pen, Time: 8:45 AM YA-Mcrcntgzafke-Mxxtahi e Work Phone: Start: 01-13-2022 VIRFUVHOME, Provider : Marisol Husain, Status: Pen, Time: 2:15 PM VIRFUVHOME, Provider: Marisol Husain, Status: Pen, Time: 2:15 PM XC-Cizuzrzaguug-Padjetn e Work Phone: Start: 09-29-2021 FUV, Provider: Bee Blackmon, Status: Pen, Time: 11:30 AM FUV, Provider: Bee Blackmon, Status: Pen, Time: 11:30 AM IP-Jwpwyzn-Wzeeg [facility] Work Phone: Start: 09-16-2021 VIRFUVHOME, Provider : Marisol Husain, Status: Pen, Time: 2:15 PM VIRFUVHOME, Provider: Marisol Husain, Status: Pen, Time: 2:15 PM QN-Yjsiyomxnvgq-Nqzhecj e Work Phone: Start: 06-18-2021 VIRFUVHOME, Provider : Marisol Husain, Status: Pen, Time: 2:15 PM VIRFUVHOME, Provider: Marisol Husain, Status: Pen, Time: 2:15 PM PD-Ywzymee-Vrwxp [facility] Work Phone: Start: 04-23-2021 NPV, Provider: Marisol Husain, Status: Pen, Time: 10:00 AM NPV, Provider: Marisol Husain, Status: Pen, Time: 10:00 AM [facility] Work Phone: Start: 03-10-2021 FUV, Provider: Bee Blackmon, Status: Pen, Time: 11:15 AM FUV, Provider: Bee Blackmon, Status: Pen, Time: 11:15 AM ZJ-Vlkbzpblxebw-Kbruhhx e Work Phone: Start: 03-10-2021 Patient encounter procedure [facility] [place] Start: 12-16-2020 POV, Provider: Bee Blackmon, Status: Pen, Time: 11:15 AM POV, Provider: Bee Blackmon, Status: Pen, Time: 11:15 AM WM-Jlojhccwxdhv-Wilexy Work Phone: Start: 11-26-2020 [facility], Provider: Bee Blackmon, Status: Pen, Time: 8:30 AM [facility], Provider: Bee Blackmon, Status: Pen, Time: 8:30 AM WM-Fwrbpykoyzzq-Ycjndn Work Phone: Patient Education Know your Meds Felter Non Diagnostic Block [facility] Work Phone: Patient referral [facility] Work Phone: Immunizations Immunization Date Immunization Notes Care Provider Nestor olvera 07-22-2020 Pfizer-BioNTech COVID-19 Vacc 30 MCG/0.3ML Intramuscular Suspension Referring Provider Unknown CO-Znkhvendkvnx-Orxsz a Work Phone: 07-01-2020 Pfizer-BioNTech COVID-19 Vacc 30 MCG/0.3ML Intramuscular Suspension Referring Provider Unknown QM-Rogaildfvqva-Zaden a Work Phone: 01-27-2020 influenza, injectabl e, quadrivalent, preservative free Referring Provider Unknown SS-Krhqgaheqeip-Ioslb a Work Phone: 02-13-2019 influenza, injectabl e, quadrivalent, contains preservative Referring Provider Unknown EQ-Vzuffqyiuxer-Mabls a Work Phone: 02-21-2018 influenza, injectabl e, quadrivalent, preservative free Referring Provider Unknown PJ-Fpymloapzqyf-Xovil a Work Phone: 01-30-2017 KENALOG - 10 mg Charles Suzannamelissa weaver Other [facility] Other 01-17-2014 influenza, seasonal, injectable Referring Provider Unknown ZD-Gpcaqxoqcsbl-Vsmuw a Work Phone: Payers Date Payer Category Payer Self-pay [id number] 2023 Private Health Insurance [id number] 2022 Unknown [id number] 2.16.8 [id number] 1966 Unknown [id number] 2.16.8 40.1.366127.3.579.2.1069 1966 Unknown [id number] 2.16.84 0.1.569165.3.579.2.593 1966 Unknown [id number] 2.16.8 40.1.177049.3.579.2.1068 1966 Unknown [id number] 2.16.84 0.1.523948.3.579.2.1259 1966 Unknown [id number] 2.16.84 0.1.666326.3.579.2.1259 1966 Unknown [id number] 2.16.8 40.1.263485.3.579.2.71 1966 Unknown [id number] 2.16.8 40.1.250191.3.579.2.71 1966 Unknown [id number] 2.16.8 40.1.106547.3.579.2.71 1966 Unknown [id number] 2.16.8 40.1.481273.3.579.2.718 1966 Unknown [id number] 2.16.8 40.1.004738.3.579.2.718 1966 Unknown [id number] 2.16.8 40.1.386871.3.579.2.718 1966 Unknown [id number] 2.16.8 40.1.444336.3.579.2. 1966 Unknown [id number] 2.16.8 40.1.594443.3.579.2. 1966 Unknown [id number] 2.16.8 40.1.131606.3.579.2.1245 1959 Unknown [id number] 2.16. 840.1.598594.19 Unknown Unknown [id number] 2.16. 840.1.708976.19 Unknown [id number] Unknown [id number] 2.16.8 40.1.943422.3.579.2.531 Unknown [id number] 2.16.8 40.1.703117.3.579.2.531 Social History Date Type Detail Facility [facility] Tobacco smoking consumption unknown [facility] Non-smoker Non-smoker DD-Zaiyidf-Ecjo a [facility] Work Phone: Sex Assigned At Sex Assigned At Bir th [facility] Other Start: 02-29-2020 Tobacco smoking status NHIS Never smoked tobacco (finding) [facility] Start: 1965 Sex Assigned At Male [facility] Goals Date Patient Goal Desired Activity /State Functional Status Date Assessment Result Facility Functional observable [facility] Mental Status Date Assessment Result Facility 11-26-2020 Cognitive functi ons [id number] [facility] Clinical Notes 03-10-2018 to 09-07-2023 Note Date & Type Note Facility 09-07-2023 Procedure note [facility] 08-04-2023 Note - From: Erica Espinoza ([facility] ([employer] [facility])) To: Kimi Weiss DO; Sent: 07/30/2023 09:07:59 EDT Subject: FW: Medication Management Due Date/Time: 07/30/2023 17:37:00 EDT Caller Name: LYLY QUINN; Caller Number: Alexander , M Lisinopril 30 mg was refilled last month on 06/24/23 for a 90 day supply with 3 refills. From: [facility] #[id number] To: Kimi Weiss DO Sent: July 29, 2023 4:37:37 PM CDT Subject: Medication Management Due: July 30, 2023 1:56:01 AM CDT On Hold Pending Signature Dispensed Drug: lisinopril (lisinopril 10 mg oral tablet), TAKE 1 TABLET BY MOUTH DAILY Quantity: 90 tab(s) Days Supply: 90 Refills: 0 Substitutions Allowed Notes from Pharmacy: From: Kimi Weiss DO To: [facility] #[id number] Sent: 08/04/2023 06:24:31 EDT Subject: FW: Medication Management Submitted: Complete:lisinopril (lisinopril 30 mg oral tablet) Signed by Kimi Weiss DO 08/04/2023 06:24:00 EDT Approved with modifications: lisinopril (LISINOPRIL 10MG TABLETS) TAKE 1 TABLET BY MOUTH DAILY Qty: 90 tab(s) Days Supply: 90 Refills: 3 Substitutions Allowed Route To Pharmacy - [facility] #[id number] [facility] 04-22-2023 Evaluation note Encounter Date Diagnosis Assessment Notes Apr, Lumbar back sprain (ICD-10 - S33.5XXA) [facility] 12-26-2023 Note From: Erica Espinoza ([facility] ([facility])) To: Kimi Weiss DO; Sent: 04/13/2023 07:27:37 EST Subject: FW: Medication Management Due Date/Time: 04/13/2023 09:59:00 EST Caller Name: LYLY QUINN; Caller Number: H , M From: [facility] #[id number] To: Kimi Weiss DO Sent: April 12, 2023 8:59:30 AM CUSTOMER ADVISOR Subject: Medication Management Due: April 13, 2023 12:11:03 AM CUSTOMER ADVISOR On Hold Pending Signature Dispensed Drug: fenofibrate (fenofibrate 48 mg oral tablet), TAKE 1 TABLET BY MOUTH DAILY Quantity: 90 tab(s) Days Supply: 90 Refills: 0 Substitutions Allowed Notes from Pharmacy: On Hold Pending Signature Dispensed Drug: rivaroxaban (Xarelto 20 mg oral tablet), TAKE 1 TABLET BY MOUTH DAILY Quantity: 90 tab(s) Days Supply: 90 Refills: 0 Substitutions Allowed Notes from Pharmacy: From: Kimi Weiss DO To: [facility] #[id number] Sent: 04/13/2023 07:31:17 EST Subject: FW: Medication Management Submitted: Complete:rivaroxaban (Xarelto 20 mg oral tablet) Signed by Kimi Weiss DO 04/13/2023 07:31:00 EST Submitted: Complete:fenofibrate (fenofibrate 48 mg oral tablet) Signed by Kimi Weiss DO 04/13/2023 07:31:00 EST Approved with modifications: fenofibrate (FENOFIBRATE 48MG TABLETS) TAKE 1 TABLET BY MOUTH DAILY Qty: 90 tab(s) Days Supply: 90 Refills: 3 Substitutions Allowed Route To Pharmacy - [facility] #[id number] Approved with modifications: rivaroxaban (XARELTO 20MG TABLETS) TAKE 1 TABLET BY MOUTH DAILY Qty: 90 tab(s) Days Supply: 90 Refills: 3 Substitutions Allowed Route To Pharmacy [id number] Evaluation note* Encounter Date Diagnosis Assessment Notes Treatment Notes Treatment Clinical Notes Mar, Chronic, continuous use of opioids (ICD-10 - F11.90) [facility] 12-14-2023 Evaluation note* Encounter Date Diagnosis Assessment Notes Treatment Notes Treatment Clinical Notes Mar, Chronic, continuous use of opioids (ICD-10 - F11.90) The patient has continued need for his Hydrocodone/ Acetaminophen 5-325 mg at a conservative level, up to two times daily as needed for severe breakthrough pain. Patient is compliant with their medication and reports no opioid related side effects. He is in agreement that this medication provides reasonable benefit in regard to pain control and his level of function allowing him to perform daily activities. Opioid risk assessment was done, without concerns. OARRS was processed and reviewed, no discrepancies noted. This medication was refilled today. Mar, Lumbar back sprain (ICD-10 - S33.5XXA) Mar, Other spondylosis with radiculopathy, lumbar region (ICD-10 - M47.26) Patients primary complaint today continues to be progressing lumbar pain radiating into his right lower extremity, extending into his foot. He notes weakness as well. We again discussed the possible benefit of a caudal epidural steroid injection however the patient would like to hold off on this at this time. Patient was encouraged to continue following with his neurosurgeon. In the meantime, we will continue to manage his symptoms as best we can with his current medication regimen. Anatomy of spine discussed in detail with patient in regards to patients condition. Mar, Other chronic pain (ICD-10 - G89.29) Mar, Other Above note writ ten by Lawanda Yuen RN, Division Controller. Edited and approved by Dr. Charles Claros MD. [employer] Other 12-04-2023 Note From: Whitney Jordan RN ([facility] ([employer] [facility])) To: Kimi Weiss DO; Sent: 03/22/2023 07:31:53 EST Subject: FW: Medication Management Due Date/Time: 03/22/2023 03:27:00 EST Caller Name: LYLY QUINN; Caller Number: H , From: [facility] #[id number] To: Kimi Weiss DO Sent: March 21, 2023 2:27:00 AM CUSTOMER ADVISOR Subject: Medication Management Due: March 22, 2023 12:03:54 AM CUSTOMER ADVISOR On Hold Pending Signature Dispensed Drug: DULoxetine (DULoxetine 60 mg oral delayed release capsule), TAKE 1 CAPSULE BY MOUTHDAILY. DO NOT CRUSH OR CHEW Quantity: 90 cap(s) Days Supply: 90 Refills: 0 Substitutions Allowed Notes from Pharmacy: From: Kimi Weiss DO To: [facility] #[id number] Sent: 03/22/2023 07:32:42 EST Subject: FW: Medication Management Submitted: Complete:DULoxetine (DULoxetine 60 mg oral delayed release capsule) Signed by Kimi Weiss DO 03/22/2023 07:32:00 EST Approved with modifications: DULoxetine (DULOXETINE DR 60MG CAPSULES) TAKE 1 CAPSULE BY MOUTH DAILY. DO NOT CRUSH OR CHEW Qty: 90 cap(s) Days Supply: 90 Refills: 3 Substitutions Allowed Route To Pharmacy - [id number] Note From: Whitney Jordan ([facility] ([facility])) To: Kimi Weiss DO; Sent: 03/01/2023 07:45:18 EST Subject: FW: Medication Management Due Date/Time: 03/01/2023 12:45:00 EST Caller Name: LYLY QUINN; Caller Number: H , From: [facility] #[id number] To: Kimi Weiss DO Sent: February 26, 2023 11:45:13 AM CUSTOMER ADVISOR Subject: Medication Management Due: February 27, 2023 12:12:56 AM CUSTOMER ADVISOR On Hold Pending Signature Dispensed Drug: hydroCHLOROthiazide (hydroCHLOROthiazide 25 mg oral tablet), TAKE 1 TABLET BY MOUTHDAILY Quantity: 90 tab(s) Days Supply: 90 Refills: 0 Substitutions Allowed Notes from Pharmacy: Patient requests 90 days supply From: Kimi Weiss DO To: [facility] #[id number] Sent: 03/01/2023 07:46:00 EST Subject: FW: Medication Management Submitted: Complete:hydroCHLOROthiazide (hydroCHLOROthiazide 25 mg oral tablet) Signed by Kimi Weiss DO 03/01/2023 07:46:00 EST Approved with modifications: hydroCHLOROthiazide (HYDROCHLOROTHIAZIDE 25MG TABLETS) TAKE 1 TABLET BY MOUTH DAILY Qty: 90 tab(s) Days Supply: 90 Refills: 3 Substitutions Allowed Route To Pharmacy - [facility] #[id number] Note from Pharmacy: [facility] Evaluation note* Encounter Date Diagnosis Assessment Notes Treatment Notes Treatment Clinical Notes Jan, Lumbar back sprain (ICD-10 - S33.5XXA) Jan, Other spondylosis with radiculopathy, lumbar region (ICD-10 - M47.26) Patients primary complaint today continues to be progressing lumbar pain radiating into his right lower extremity, extending into his foot. He notes weakness as well. We again discussed the possible benefit of a caudal epidural steroid injection however the patient would like to hold off on this at this time. Patient was encouraged to continue following with his neurosurgeon. In the meantime, we will continue to manage his symptoms as best we can with his current medication regimen. The patient has continued need for his Hydrocodone/ Acetaminophen 5-325 mg at a conservative level, up to two times daily as needed for severe breakthrough pain. Patient is compliant with their medication and reports no opioid related side effects. He is in agreement that this medication provides reasonable benefit in regard to pain control and his level of function allowing him to perform daily activities. Opioid risk assessment was done, without concerns. OARRS was processed and reviewed, no discrepancies noted. This medication was refilled today. Anatomy of spine discussed in detail with patient in regard to patients condition. Jan, Other chronic pain (ICD-10 - G89.29) Jan, Other Above note writ ten by Doris Weiss LPN, Division Controller. Edited and approved by Dr. Charles Claros MD. [employer] Other 10-05-2023 Evaluation note* Encounter Date Diagnosis Assessment Notes Treatment Notes Treatment Clinical Notes Jan, Lumbar back sprain (ICD-10 - S33.5XXA) [employer] Other 06-20-2023 Evaluation note* Encounter Date Diagnosis Assessment Notes Treatment Notes Treatment Clinical Notes Sep, Lumbar back sprain (ICD-10 - S33.5XXA) Sep, Other spondylosis with radiculopathy, lumbar region (ICD-10 - M47.26) Patients primary complaint today continues to be progressing lumbar pain radiating into his right lower extremity, extending into his foot. He notes weakness as well. We again discussed the possible benefit of a caudal epidural steroid injection however the patient would like to hold off on this at this time. Patient was encouraged to continue following with his neurosurgeon. In the meantime, we will continue to manage his symptoms as best we can with his current medication regimen. The patient has continued need for his Hydrocodone/ Acetaminophen 5-325 mg at a conservative level, up to two times daily as needed for severe breakthrough pain. Patient is compliant with their medication and reports no opioid related side effects. He is in agreement that this medication provides reasonable benefit in regard to pain control and his level of function allowing him to perform daily activities. Opioid risk assessment was done, without concerns. OARRS was processed and reviewed, no discrepancies noted. This medication was refilled today. Anatomy of spine discussed in detail with patient in regard to patients condition. Saliva sample performed through [facility] lab today, will await confirmatory results. Sep, Other chronic pain (ICD-10 - G89.29) Sep, Other Above note writ ten by Doris Weiss LPN, Division Controller. Edited and approved by Dr. Charles Claros MD. [employer] Other 06-20-2023 Evaluation note* Encounter Date Diagnosis Assessment Notes Treatment Notes Treatment Clinical Notes Sep, Lumbar back sprain (ICD-10 - S33.5XXA) [employer] Other 02-13-2023 Evaluation note* Encounter Date Diagnosis Assessment Notes Treatment Notes Treatment Clinical Notes May, Lumbar back sprain (ICD-10 - S33.5XXA) May, Other spondylosis with radiculopathy, lumbar region (ICD-10 - M47.26) Patients primary complaint today continues to be progressing lumbar pain radiating into his right lower extremity, extending into his foot. He notes weakness as well. We again discussed the possible benefit of a caudal epidural steroid injection however the patient would like to consult with his neurosurgeon prior to proceeding with this. Risks and benefits of procedure explained to patient; patient verbalizes understanding. It was discussed in detail, along with providing written instructions, for the patient to discuss and receive permission to stop their anticoagulation from their prescribing provider prior to each procedure. Additionally, the patient agrees to fully understand and accept the potential risks of stopping this medication prior to doing so. In the meantime, we will continue to manage his symptoms as best we can with his current medication regimen. The patient has continued need for his Hydrocodone/ Acetaminophen 5-325 mg at a conservative level, up to two times daily as needed for severe breakthrough pain. Patient is compliant with their medication and reports no opioid related side effects. He is in agreement that this medication provides reasonable benefit in regard to pain control and his level of function allowing him to perform daily activities. Opioid risk assessment was done, without concerns. OARRS was processed and reviewed, no discrepancies noted. This medication was refilled today. Anatomy of spine discussed in detail with patient in regard to patients condition. May, Other chronic pain (ICD-10 - G89.29) May, Other Above note writ ten by Dutch Taylor MA, Division Controller. Edited and approved by Dr. Charles Claros MD. [employer] Other 02-13-2023 Evaluation note* Encounter Date Diagnosis Assessment Notes Treatment Notes Treatment Clinical Notes May, Lumbar back sprain (ICD-10 - S33.5XXA) [employer] Other 11-02-2022 Evaluation note* Encounter Date Diagnosis Assessment Notes Treatment Notes Treatment Clinical Notes Feb, Bilateral sacroiliitis (ICD-10 - M46.1) Feb, Lumbar back sprain (ICD-10 - S33.5XXA) Patient is complaining of returning right low back and lower extremity pain. We discussed with patient repeat epidural injections, however he would like to hold off on scheduling at this time due to insurance issues. We discussed trialing a spinal cord stimulator. Patient was provided educational literature for further consideration. In the meantime, we will continue to manage his symptoms as best we can with his current medication regimen. The patient has continued need for his Hydrocodone/ Acetaminophen 5-325 mg at a conservative level, up to two times daily as needed for severe breakthrough pain. Patient is compliant with their medication and reports no opioid related side effects. He is in agreement that this medication provides reasonable benefit in regard to pain control and his level of function allowing him to perform daily activities. Opioid risk assessment was done, without concerns. OARRS was processed and reviewed, no discrepancies noted. We discussed possible repeat caudal epidural in an attempt to provide alternative treatment. Anatomy of spine discussed in detail with patient in regard to patients condition. We will follow up with him in two months, sooner if needed. Feb, Right leg pain (ICD-10 - M79.604) Feb, Other chronic pain (ICD-10 - G89.29) Feb, Other Above note writ ten by Doris Weiss LPN, Division Controller. Edited and approved by Dr. Charles Claros MD. [employer] Other 11-02-2022 Evaluation note* Encounter Date Diagnosis Assessment Notes Treatment Notes Treatment Clinical Notes Feb, Lumbar back sprain (ICD-10 - S33.5XXA) [employer] Other 08-29-2022 Evaluation note* Encounter Date Diagnosis Assessment Notes Treatment Notes Treatment Clinical Notes Nov, Bilateral sacroiliitis (ICD-10 - M46.1) Nov, Lumbar back sprain (ICD-10 - S33.5XXA) Patient is complaining of returning right low back and lower extremity pain. He was recently seen by his neurosurgeon and told there was significant issues. We discussed with patient repeat epidural injections, however he would like to hold off on scheduling at this time due to insurance issues. In the meantime, we will continue to manage his symptoms as best we can with his current medication regimen. The patient has continued need for his Hydrocodone/ Acetaminophen 5-325 mg at a conservative level, up to two times daily as needed for severe breakthrough pain. Patient is compliant with their medication and reports no opioid related side effects. He is in agreement that this medication provides reasonable benefit in regard to pain control and his level of function allowing him to perform daily activities. Opioid risk assessment was done, without concerns. OARRS was processed and reviewed, no discrepancies noted. We discussed possible repeat caudal epidural in an attempt to provide provide alternative treatment. This medication was refilled today as well as Flexeril. Anatomy of spine discussed in detail with patient in regard to patients condition. Nov, Right leg pain (ICD-10 - M79.604) Nov, Other chronic pain (ICD-10 - G89.29) Nov, Other Above note writ ten by Doris Weiss LPN, Division Controller. Edited and approved by Dr. Charles Claros MD. [employer] Other 05-31-2022 Chief complaint Narrative - Reported* An interactive audio and video telecommunication system which permits real time communications between the patient (at the originating site) and provider (at the distant site) was utilized to providethis telehealth service. * Verbal consent was requested and obtained from LYLY QUINN on this date, 09/16/2021 02:15 PM , for atelehealth visit. [id number] [id number] Work Phone: [phone] 837-279904-06-2022 Evaluation note* Encounter Date Diagnosis Assessment Notes Treatment Notes Treatment Clinical Notes Jul, Bilateral sacroiliitis (ICD-10 - M46.1) Jul, Lumbar back sprain (ICD-10 - S33.5XXA) Patient is complaining of some returning right lower extremity pain. I encouraged him to continue with plans to follow up with neurosurgery next week. In the meantime, we will continue to manage his symptoms as best we can with his current medication regimen. The patient has continued need for his Hydrocodone/ Acetaminophen 5-325 mg at a conservative level, up to two times daily as needed for severe breakthrough pain. Patient is compliant with their medication and reports no opioid related side effects. He is in agreement that this medication provides reasonable beneift in regards to pain control and his level of function allowing him to perform daily activities. Opioid risk assessment was done, without concerns. OARRS was processed and reviewed, no discrepancies noted. This medication was refilled today as well as Flexeril. Anatomy of spine discussed in detail with patient in regards to patients condition. Overall, patient believes their pain is reasonably well controlled and he is in agreement with our treatment plan. Jul, Right leg pain (ICD-10 - M79.604) Jul, Other chronic pain (ICD-10 - G89.29) Jul, Other Above note writ ten by Dutch Taylor CMA, Division Controller. Edited and approved by Dr. Charles Claros MD. [employer] Other 03-02-2022 Chief complaint Narrative - Reported* An interactive audio and video telecommunication system which permits real time communications between the patient (at the originating site) and provider (at the distant site) was utilized to providethis telehealth service. * Verbal consent was requested and obtained from LYLY QUINN on this date, 06/18/2021 02:15 PM , for atelehealth visit. [id number] [id number] Work Phone: [phone] 112-252601-05-2022 Chief complaint Narrative - Reported* An interactive audio and video telecommunication system which permits real time communications between the patient (at the originating site) and provider (at the distant site) was utilized to providethis telehealth service. * Verbal consent was requested and obtained from LYLY QUINN on this date, 04/23/2021 10:00 AM , for atelehealth visit. [id number] [id number] Work Phone: [phone] Chief complaint Narrative - Reported* An interactive audio and video telecommunication system which permits real time communications between the patient (at the originating site) and provider (at the distant site) was utilized to providethis telehealth service. * Verbal consent was requested and obtained from LYLY QUINN on this date, 04/23/2021 10:00 AM , for atelehealth visit. [facility] Work Phone: [phone] 587-806812-15-2021 Evaluation note* Encounter Date Diagnosis Assessment Notes Treatment Notes Treatment Clinical Notes Mar, Bilateral sacroiliitis (ICD-10 - M46.1) Mar, Lumbar back sprain (ICD-10 - S33.5XXA) Patient continues to recover from a lumbar surgery and notes significant improvement in his pain symptoms of at least 50%. We again discussed given his improvement we will work towards the goal of coming off his pain medications as he continues to have a decreased need for this. He continues using this sparingly. For now, the patient has continued need for his Hydrocodone/ Acetaminophen 5-325 mg at a conservative level, up to two times daily as needed. Patient is compliant with their medication and reports no opioid related side effects. He is in agreement that this medication provides reasonable beneift in regards to pain control and his level of function allowing him to perform daily activities. Opioid risk assessment was done, without concerns. OARRS was processed and reviewed, no discrepancies noted. The patient's medication was refilled today. We will follow up with the patient in two months, sooner if needed. Anatomy of spine discussed in detail with patient in regards to patients condition. Overall, patient believes their pain is reasonably well controlled and he is in agreement with our treatment plan. Mar, Right leg pain (ICD-10 - M79.604) Mar, Other chronic pain (ICD-10 - G89.29) Mar, Other Above note writ ten by Lawanda Yuen CMA, Division Controller. Edited and approved by Dr. Charles Claros MD. [employer] Other 10-20-2021 Evaluation note* Encounter Date Diagnosis Assessment Notes Treatment Notes Treatment Clinical Notes Jan, Bilateral sacroiliitis (ICD-10 - M46.1) Jan, Lumbar back sprain (ICD-10 - S33.5XXA) Patient continues to recover from a lumbar surgery and notes significant improvement in his pain symptoms of at least 50%. We again discussed given his improvement we will work towards the goal of coming off his pain medications as he continues to have a decreased need for this. He continues using this sparingly. For now, the patient has continued need for his Hydrocodone/ Acetaminophen 5-325 mg at a conservative level, up to two times daily as needed. Patient is compliant with their medication and reports no opioid related side effects. He is in agreement that this medication provides reasonable beneift in regards to pain control and his level of function allowing him to perform daily activities. Opioid risk assessment was done, without concerns. OARRS was processed and reviewed, no discrepancies noted. The patient's medication was refilled today. Gabapentin was also refilled today. He will continue Flexeril and does not need a refill at this time. We will follow up with the patient in two months, sooner if needed. Anatomy of spine discussed in detail with patient in regards to patients condition. Overall, patient believes their pain is reasonably well controlled and he is in agreement with our treatment plan. Jan, Right leg pain (ICD-10 - M79.604) Jan, Other chronic pain (ICD-10 - G89.29) Jan, Other Above note writ ten by Dutch Taylor MA, Division Controller. Edited and approved by Dr. Charles Claros MD. [employer] Other 08-10-2021 NoteSend Summary: Discharge Summary Providers: Provider RoleProvider Name Kimi Alarcon Zachary Note Recipients: Bee Blackmon MD Jackson, Steven P, DO - [phone] [] Discharge: Summary: Admission Date: .26-Nov-2020 10:44:00 Discharge Date: 27-Nov-2020 Attending Physician at Discharge: Bee Blackmon Admission Reason: lumbar spinal stenosis Final Discharge Diagnoses: lumbar spinal stenosis Procedures: Date: 26-Nov-2020 14:14:00 Procedure Name: 1. L3-4 XLIF 2. 3. 4. 5. Condition at Discharge: Satisfactory Disposition at Discharge: .Home Hospital Course: 55 year-old male who presented with lumbar spinal stenosis. Patient is now s/p L3-4 XLIF on 11/[address] Blackmon. On the day of surgery, patient was identified in the pre-operative holding area and agreeable to proceed with surgery. Written consent was obtained. Please see operative note for further details of this procedure. Patient received 24 hours of charmaine-operative antibiotics. Patient recovered in the PACU before transfer to a regular nursing floor. Patient was started on oxycodone, tylenol for pain control. Physical therapy recommended continued recovery at home with continued physical therapy and wound care. On the day of discharge, patient was afebrile with stable vital signs. Patient was neurovascularly intact at time of discharge. Patient was started on Lovenox 40 daily at 9 PM on 11/27, continued for 5 days, and then will resume home Xarelto dose for DVT prophylaxis. Patient will follow-up with Dr. Blackmon in 2 weeks for post-operative visit. Immunizations: Immunizations: 19-Nov-2020 SARS-CoV-2 (COVID-19): Immunizations, [employer] COVID-19 Vacc 30 mcg/0.3ml IM suspension, 01-Jul-2020 SARS-CoV-2 (COVID-19): Immunizations, [employer] COVID-19 Vacc 30 mcg/0.3ml IM Suspension, 22-Jul-2020 Discharge Information: and Continuing Care: Lab Results - Pending: None Radiology Results - Pending: Xray Lumbar Spine 1 View at 26-Nov-2020 14:30:00 Xray Fluoro Spine at 26-Nov-2020 14:21:00 Discharge Instructions: Activity: activity with assistance PROGRESSIVE WALKING AT LEAST 2X/DAY. May shower.. WHEN NO DRAINAGE FROM INCISIONAL AREA FOR 48 HOURS May not return to school/work until follow-up visit with. Dr. Blackmon May not drive until follow-up visit. No pushing, pulling, or lifting objects greater than 10 pounds. Weight-bearing Instructions: full weight bearing. NO EXCESSIVE BENDING/TWISTING, NO HEAVY HOUSE/YARD WORK Nutrition/Diet: resume normal diet Wound Care: Wound Site: Lateral/ Flank Wound Type: surgical incision Change Dressing: daily UNTIL NO LONGER DRAINING, THEN YOU CAN LEAVE THE DRSG. OFF Cleanse With: soap and water, ONCE THE INCISION IS NO LONGER DRAINING AND YOU ARE ABLE TO SHOWER. Cover With: abdominal dressing Tape With: paper tape Instructions: no lotions, creams, or tub soaks Other Instructions: If there is a prineo dressing (Strip) over your incision, do not remove it with your dressing changes. The dressing will slowly lift away from the skin over time. Additional Orders: Additional Instructions: MAY USE HEAT OR ICE TO YOUR BACK NEEDED FOR COMFORT NO NSAIDS (ADVIL, IBUPROFEN, ALEVE... ETC.) FOR 8 WEEKS, THEY HAVE A BAD EFFECT ON HEALING OF FUSION. Infectious Disease: PPD Status: not given MRSA: no VRE: no C. Diff: no Other Resistant Organism: no Isolation Type: none Follow Up Appointments: Follow-Up Appointment 01: Physician/Dept/Service: Dr. Bee Blackmon/ Orthopaedic Surgery/ Spine Reason for Referral: Postoperative Follow-Up Appointment Scheduled Date/Time: 09-Dec-2020 11:15 Location: [address] [place] [address] OFFICE [address], Phone Number: Office: [place], GeneMaranda) - [phone] Discharge Medications: Home Medication lisinopril 20 mg oral tablet - 1 tab(s) orally once a day fenofibrate 48 mg oral tablet - 1 tab(s) orally once a day NexIUM 24HR 20 mg oral delayed release tablet - 1 tab(s) orally once a day (in the morning) DULoxetine 60 mg oral delayed release capsule - 1 cap(s) orally once a day Xarelto 20 mg oral tablet - 1 tab(s) orally once a day (in the evening) STARTING ON DECEMBER 02 AND STOP TAKING LOVENOX. enoxaparin 40 mg/0.4 mL injectable solution - 40 milligram(s) subcutaneously once a day starting on 11/27/20 and continuing for 5 days, then stop and resume home Xarelto. methocarbamol 500 mg oral tablet - 2 tab(s) orally every 8 hours Colace 100 mg oral capsule - 1 cap(s) orally 2 times a day as needed for constipation MiraLax oral powder for reconstitution - 17 gram(s) orally once a day as needed for constipation Tylenol 325 mg oral tablet - 2 tab(s) orally every 6 hours for 30 days. oxyCODONE 5 mg oral tablet - 1-2 tab(s) orally every 4-6 hours as needed for pain for 7 days. G89.18 Dx: acute post-operative pain (more content not included)...[facility]08-10-2021 NotePost Operative Note: PreOp Diagnosis: lumbar stenosis with radiculopathy Post-Procedure Diagnosis: same as preop Procedure: 1. L3-4 XLIF 2. 3. 4. 5. Surgeon: Neymar Resident/Fellow/Other Receiving Weigher: Daniela Anesthesia: GETA Estimated Blood Loss (mL): 15 Specimen: no Complications: none apparent Findings: see op report Patient Returned To/Condition: PACU in stable condition Attestation: Note Completion: I am a:Resident/Fellow Attending AttestationI was present for the entire procedure Electronic Signatures: Bee Blackmon) (Signed 10-Dec-2020 17:38) Authored: Note Completion Co-Signer: Post Operative Note, Note Completion Lambert Suarez (Resident)) (Signed 26-Nov-2020 14:19) Authored: Post Operative Note, Note Completion Last Updated: 10-Dec-2020 17:38 by Bee Blackmon)[facility]08-10-2021 NotePreop Checklist: Preop Checklist: Procedure TypeL3-4 lateral lumbar fusion with instrumentation Temperature C36.4 degrees C Temperature F97.5 degrees F Heart Rate92 beats per minute Respiratory Rate16 breath per minute Blood Pressure Ucvbumue443 mm/Hg Blood Pressure Jtdilwatn96 mm/Hg NPO [id number] 22:00 ID Band Onyes Allergy Bandno known allergies Consent Signedyes H&P Completeyes Anesthesia Assessment Completedyes EKG Performedsee results tab Chest X-Ray Performedsee results tab Chlorhexadine Bath Givennot applicable Nasal Antiseptic Appliednot applicable Hair Washednot applicable Soap and water bath with hair shampoo the night before surgeryyes Hat placed on prior to transportnot applicable SCD's Appliedsent to [facility] AYAAN Hose Appliednot ordered Denturesnot applicable Prostheticsnot applicable Hearing Aidsnot applicable Valuables Securednot applicable Glasses / Contactsplaced in locker Cardiovascular Assessment: Apicalregular Radial Pulsespalpable Respiratory Assessment: Respirationsunlabored Air Exchangeequal Neurological Assessment: Level of Consciousnessalert, oriented Mobilitylimitations difficulty ambulating Able to Express Selfyes Age Appropriateyes Emotional Statusanxious Skin Assessment: Skin Site(s) with Current Compromisenone Preop Education: Surgical Site Infection Preventionyes Language / Communication: Language / CommunicationEnglish Electronic Signatures: Pat PadillaRN) (Signed 26-Nov-2020 12:09) Authored: Preop Checklist Last Updated: 26-Nov-2020 12:09 by Pat Padilla (BENI)[facility]08-10-2021 NoteHistory & Physical Reviewed: I have reviewed the History and Physical dated: 31-Oct-2020 History and Physical reviewed and relevant findings noted. Patient examined to review pertinent physical findings.: No significant changes Home Medications Reviewed: no changes noted Allergies Reviewed: no changes noted ERAS (Enhanced Recovery After Surgery): ERAS Patient: no Consent: COVID-19 Consent: COVID-19 Risk ConsentSurgeon has reviewed raygoza risks related to the risk of mariaa COVID-19 and if they contract COVID-19 what the risks are. Attestation: Note Completion: I am a: Resident/Fellow Attending AttestationI saw and evaluated the patient. I personally obtained the raygoza and critical portions of the history and physical exam or was physically present for raygoza and critical portions performed by the resident/fellow. I reviewed the resident/fellows documentation and discussed the patient with the resident/fellow. I agree with the resident/fellows medical decision making as documented in the note. I personally evaluated the patient [id number] Electronic Signatures: Bee Blackmon) (Signed 09-Dec-2020 19:41) Authored: Note Completion Co-Signer: History & Physical Reviewed, ERAS, Consent, Note Completion Kevin Marshall (Resident)) (Signed 26-Nov-2020 05:52) Authored: History & Physical Reviewed, ERAS, Consent, Note Completion Last Updated: 09-Dec-2020 19:41 by Bee Blackmon)[facility]05-05-2021 Evaluation note* Lymphatic: No significant lymphadenopathyNeurological: A&Pb2Qheajewoowvvafug: Soft, ntndCardiovascular: RRR by peripheral pulsesPsychological: Appropriate mood and behaviorRespiratory/Thorax: Breathing normally on RAHead/Neck: Neck supple, trachea midlineEyes: EOMI, clear scleraSkin: Warm and dry, no rashesMusculoskeletal: L1: SILTL2: SILT Hip flexors 5/5 Right; 5/5 LeftL3: SILT Knee extension 5/5 Right; 5/5 LeftL4: SILT Tib Ant. (Dorsiflexion) 5/5 Right; 5/5 LeftL5: SILT EHL 5/5 Right; 5/1DtxsD0: SILT Planter flexion 5/5 Right; 5/5 LeftConstitutional: Awake/alert/oriented x3, no distress, alert and cooperative [facility]02-01-2020 History of Present illness Narrative* 55-year-old male referred for evaluation of lumbar spinal stenosis. He has a very complex history involving 4 prior lumbar operations. His most recent operation was done in May 2019. Prior to this operation he had undergone L4-5 laminectomy and fusion with iliac crest bone grafting. In May 2019 his symptoms became intolerable, predominantly lower back and right leg radiating pain with associated numbness and tingling. He underwent L2-3 and L3-4 hemilaminectomies. His pain improved forabout 2 weeks and then came right back to where it was before surgery. Since that operation in 2019he has gone through extensive treatment including medications, physical therapy both on land and inthe pool, and home exercise program. He is absolutely miserable at this point. He can only be on his feet for 10 to 15 minutes before he has to stop and sit down. His symptoms are mixed 50/50 low back pain and leg pain. * He was evaluated by another surgeon in [facility], they did recommend surgery however he has a history involving multiple DVTs and pulmonary embolism. After his last operation he was not bridged preoperatively on Lovenox, and he did not receive any anticoagulation until 2 weeks after surgery. Despite having an IVC filter in place he through another pulmonary embolism. 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 * He is otherwise in good health. He does not smoke or use any nicotine products. * He notes weakness in his right leg, particularly extending his knee and ankle dorsiflexion. He states that he is able to activate these muscles against gravity, but they feel significantly weaker compared to his left leg. He walks with a forward gait using a cane. * I personally reviewed multiple imaging studies of his lumbar spine including bending x-rays and a CT myelogram. X-rays demonstrate degenerative scoliosis with lateral listhesis at L3-4. This disc is hypermobile on lateral bending x- rays. There is no dynamic sagittal plane instability at L3-4. The L2-3 disc space is relatively stable. * His myelogram demonstrates a well-healed fusion at L4-5 with intact instrumentation. There is vacuum disc phenomenon present at L3-4, it is not present at L2-3. In fact the L2-3 disc space is nearly neutrally aligned in the coronal plane on the supine CT images and is significantly angulated on upright x-rays. Moderate to severe right-sided lateral recess stenosis and foraminal stenosis at L3-4. * I had a long discussion with him regarding the goals of surgical treatment. I explained that there is no situation in which she has a life without some degree of back pain. He understands and is accepting of this. The goal of surgical treatment would be to decompress the nerves by instability at the L3- 4 level. He should expect to have significant improvement in his leg pain symptoms as well as his standing and walking endurance. I explained that the goal is not to make him normal but to helpimprove his quality of life from where he is right now. * He understands the treatment goals of surgery and would like to proceed. * Given his high risk for DVT/PE as well as the need for perioperative anticoagulation I recommended anterior procedure we do not have to go directly into the spinal canal. Given his hypermobility at L3-4 he is an excellent candidate for indirect decompression. * Understands the need for anticoagulation after surgery, we can start him on prophylactic dose Lovenox postoperative day #1, continue for 7 days, then restart his home Xarelto dosing. He would need herber bridged with Lovenox therapeutically prior to surgery. Although we are not going directly into the spinal canal, he is at risk for developing a retroperitoneal or psoas hematoma and I explained that this could also cause neurologic symptoms and possibly require more surgery to debride. * I discussed the risks of surgery including bleeding, infection, paralysis, muscle weakness, CSF leak, bowel or bladder dysfunction, incomplete resolution of pain or numbness, DVT/PE, heart attack, stroke, and other unforeseen medical and anesthesia complications. I also explained that the typical martin ccess rates for operation such as this fall in the 80-85% range, and that there is a small chance that there will be no improvement, or even less commonly, worsening of the preoperative symptoms. He verbalized understanding of the risks, benefits, and alternatives to surgical treatment. The plan will be for L3-4 anterior lumbar interbody fusion (open, nonendoscopic approach) with anterior instrumentation. Surgery was scheduled for November 26. 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 He is fully vaccinated for COVID-19. * This note was dictated using speech recognition software and was not corrected for spelling or grammatical errors. [facility] Work Phone: [phone] 685-755602-01-2020 History of Present illness Narrative* 55-year-old male referred for evaluation of lumbar spinal stenosis. He has a very complex history involving 4 prior lumbar operations. His most recent operation was done in May 2019. Prior to this operation he had undergone L4-5 laminectomy and fusion with iliac crest bone grafting. In May 2019 his symptoms became intolerable, predominantly lower back and right leg radiating pain with associated numbness and tingling. He underwent L2-3 and L3-4 hemilaminectomies. His pain improved forabout 2 weeks and then came right back to where it was before surgery. Since that operation in 2019he has gone through extensive treatment including medications, physical therapy both on land and inthe pool, and home exercise program. He is absolutely miserable at this point. He can only be on his feet for 10 to 15 minutes before he has to stop and sit down. His symptoms are mixed 50/50 low back pain and leg pain. * He was evaluated by another surgeon in [facility], they did recommend surgery however he has a history involving multiple DVTs and pulmonary embolism. After his last operation he was not bridged preoperatively on Lovenox, and he did not receive any anticoagulation until 2 weeks after surgery. Despite having an IVC filter in place he through another pulmonary embolism. 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 * He is otherwise in good health. He does not smoke or use any nicotine products. * He notes weakness in his right leg, particularly extending his knee and ankle dorsiflexion. He states that he is able to activate these muscles against gravity, but they feel significantly weaker compared to his left leg. He walks with a forward gait using a cane. * I personally reviewed multiple imaging studies of his lumbar spine including bending x-rays and a CT myelogram. X-rays demonstrate degenerative scoliosis with lateral listhesis at L3-4. This disc is hypermobile on lateral bending x- rays. There is no dynamic sagittal plane instability at L3-4. The L2-3 disc space is relatively stable. * His myelogram demonstrates a well-healed fusion at L4-5 with intact instrumentation. There is vacuum disc phenomenon present at L3-4, it is not present at L2-3. In fact the L2-3 disc space is nearly neutrally aligned in the coronal plane on the supine CT images and is significantly angulated on upright x-rays. Moderate to severe right-sided lateral recess stenosis and foraminal stenosis at L3-4. * I had a long discussion with him regarding the goals of surgical treatment. I explained that there is no situation in which she has a life without some degree of back pain. He understands and is accepting of this. The goal of surgical treatment would be to decompress the nerves by instability at the L3- 4 level. He should expect to have significant improvement in his leg pain symptoms as well as his standing and walking endurance. I explained that the goal is not to make him normal but to helpimprove his quality of life from where he is right now. * He understands the treatment goals of surgery and would like to proceed. * Given his high risk for DVT/PE as well as the need for perioperative anticoagulation I recommended anterior procedure we do not have to go directly into the spinal canal. Given his hypermobility at L3-4 he is an excellent candidate for indirect decompression. * Understands the need for anticoagulation after surgery, we can start him on prophylactic dose Lovenox postoperative day #1, continue for 7 days, then restart his home Xarelto dosing. He would need herber bridged with Lovenox therapeutically prior to surgery. Although we are not going directly into the spinal canal, he is at risk for developing a retroperitoneal or psoas hematoma and I explained that this could also cause neurologic symptoms and possibly require more surgery to debride. * I discussed the risks of surgery including bleeding, infection, paralysis, muscle weakness, CSF leak, bowel or bladder dysfunction, incomplete resolution of pain or numbness, DVT/PE, heart attack, stroke, and other unforeseen medical and anesthesia complications. I also explained that the typical martin ccess rates for operation such as this fall in the 80-85% range, and that there is a small chance that there will be no improvement, or even less commonly, worsening of the preoperative symptoms. He verbalized understanding of the risks, benefits, and alternatives to surgical treatment. The plan will be for L3-4 anterior lumbar interbody fusion (open, nonendoscopic approach) with anterior instrumentation. Surgery was scheduled for November 26. 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 He is fully vaccinated for COVID-19. * This note was dictated using speech recognition software and was not corrected for spelling or grammatical errors. [facility] Work Phone: [phone] History of Present illness Narrative* Patient is 4 months status post L3-4 XLIF with lateral plate for junctional lumbar spinal stenosis.He is doing well postoperatively, still has some residual lower back pain and left thigh numbness, but for the most part is much better than he was before surgery. * He does note particular sedentary lifestyle, he is at his highest weight that he has been ever. Forthe last 3 years he has not had much in terms of physical activity, he does make a valiant effort to walk regularly now. He feels worse when he stands or sits for prolonged periods of time, that putsa lot of stress on his lower back. * On exam he does not have any focal neurologic deficits. Normal gait without assistive device. * I personally reviewed x-rays taken today. These demonstrate stable alignment of his fusion. There is no evidence of hardware failure or loosening. * Overall he is doing very well postoperatively. At this point I explained it is all about rehab and exercise. I recommended physical and aquatic therapy he was given prescriptions for both. * We also discussed the importance of increasing his aerobic exercise and working on a weight loss program. I did make a referral for a comprehensive weight loss program I think he would do quite well with counseling perhaps in medication at this point. * He can follow-up with me on an as-needed basis. * This note was dictated using speech recognition software and was not corrected for spelling or grammatical errors. [facility] Work Phone: [phone] History of Present illness Narrative* Patient is 4 months status post L3-4 XLIF with lateral plate for junctional lumbar spinal stenosis.He is doing well postoperatively, still has some residual lower back pain and left thigh numbness, but for the most part is much better than he was before surgery. * He does note particular sedentary lifestyle, he is at his highest weight that he has been ever. Forthe last 3 years he has not had much in terms of physical activity, he does make a valiant effort to walk regularly now. He feels worse when he stands or sits for prolonged periods of time, that putsa lot of stress on his lower back. * On exam he does not have any focal neurologic deficits. Normal gait without assistive device. * I personally reviewed x-rays taken today. These demonstrate stable alignment of his fusion. There is no evidence of hardware failure or loosening. * Overall he is doing very well postoperatively. At this point I explained it is all about rehab and exercise. I recommended physical and aquatic therapy he was given prescriptions for both. * We also discussed the importance of increasing his aerobic exercise and working on a weight loss program. I did make a referral for a comprehensive weight loss program I think he would do quite well with counseling perhaps in medication at this point. * He can follow-up with me on an as-needed basis. * This note was dictated using speech recognition software and was not corrected for spelling or grammatical errors. [facility] Work Phone: [phone] History of Present illness Narrative* Patient is 4 months status post L3-4 XLIF with lateral plate for junctional lumbar spinal stenosis.He is doing well postoperatively, still has some residual lower back pain and left thigh numbness, but for the most part is much better than he was before surgery. * He does note particular sedentary lifestyle, he is at his highest weight that he has been ever. Forthe last 3 years he has not had much in terms of physical activity, he does make a valiant effort to walk regularly now. He feels worse when he stands or sits for prolonged periods of time, that putsa lot of stress on his lower back. * On exam he does not have any focal neurologic deficits. Normal gait without assistive device. * I personally reviewed x-rays taken today. These demonstrate stable alignment of his fusion. There is no evidence of hardware failure or loosening. * Overall he is doing very well postoperatively. At this point I explained it is all about rehab and exercise. I recommended physical and aquatic therapy he was given prescriptions for both. * We also discussed the importance of increasing his aerobic exercise and working on a weight loss program. I did make a referral for a comprehensive weight loss program I think he would do quite well with counseling perhaps in medication at this point. * He can follow-up with me on an as-needed basis. * This note was dictated using speech recognition software and was not corrected for spelling or grammatical errors. [id number] Work Phone: Evaluation note* Diagnosis Onset Date Resolution Status Chronic pain acute Chronic, continuous use of opioids acute Other spondylosis with radiculopathy, lumbar region [facility] Work Phone: Evaluation note* Diagnosis Onset Date Resolution Status Chronic pain acute Chronic, continuous use of opioids acute Other spondylosis with radiculopathy, lumbar region acute Chronic pain acute Chronic, continuous use of opioids acute Other spondylosis with radiculopathy, lumbar region acute [facility] Work Phone: History general Narrative - Reported* Type Description Date Medical History GERD (gastroesophageal reflux di sease) Medical History Benign hypertension Medical History Other pulmonary embo lism without acute cor pulmonale, unspecified chronicity Medical History Cluster headache Surgical History CHOLECYSTECTOMY Surgical History umbilical hernia repair Surgical History 3 BACK SURGERIES Surgical History back surgery 1995 Surgical History knee arthroscopy Surgical History Bilateral inguinal hernias repa ired w/ AVV 06/06/2015 Surgical History LEFT knee arthroscopy x's 3 (un sure of dr) Hospitalization History pulmonary embolism 2 [employer] Other History of Present illness Narrative* Patient is 3 weeks status post L3-4 XLIF with lateral plate for junctional spinal stenosis. He is doing exceptionally well postoperatively. His preoperative symptoms have nearly all resolved at this point. He still has some residual backache with radiation into the right groin. He has no left groinor thigh pain which was the site of the lateral transpsoas approach. * On exam his incisions are well-healed. Strength is normal in the lower extremities bilaterally. He walks with a normal gait without assistive device. * I personally reviewed x-rays taken today. These demonstrate stable alignment of his fusion. There is no evidence of hardware failure or loosening. * At this point he can start to increase his activities as tolerated. He will follow-up with me in 3 months for repeat x-rays of the lumbar spine, AP and lateral only. If he is having any trouble with ongoing back pain in the meantime he should contact my office and we can send him a prescription for physical therapy, at this point he does not think the symptoms are bad enough to warrant it. * This note was dictated using speech recognition software and was not corrected for spelling or grammatical errors [id number] Work Phone: History of Present illness Narrative* 56 year old M presenting for comprehensive weight management evaluation. * Referred by Dr. Bee Blackmon. * Goals: to lose weight to help my back * Pmhx:spinal stenosis, post laminectomy syndrome, elevated glucose, PE on xarelto, HTN, YANNI * Pertinent surgical hx: lumbar laminectomy, arthroscopy of both knees * Personal Weight History: He injured his back about 3 years ago and has not been able to maintain physical activity over the last 3 years, he has gained about 50+ pounds. He remembers weighing about 225 in early 50s and had less issues with back. 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 * At initial visit referred to outpatient dietitian for nutrition counseling, also started trial of topiramate in effort to assist with appetite reduction and aim to reduce carbonated added sugar beverage. * He met with RD and discussed using plate method of meal planning. * He has found his appetite has been reduced since adding in topiramate, no side effects * He has switched from regular soda to diet soda but only drinking the diet soda if he gets a headache * Diet Recall: * B - coffee and V8 * L - yogurt, granola (puerto [place]ican yogurt, 1/4 cup granola), cream of corn 1 cup * Snack - pop corner 100 calorie bag * D - veggie burger with [place] cheese & onion (2 burgers) low calorie buns * Beverages - water * Goals: to lose weight to help my back * Pmhx:spinal stenosis, post laminectomy syndrome, elevated glucose, PE on xarelto, HTN, YANNI * Pertinent surgical hx: lumbar laminectomy, arthroscopy of both knees * Personal Weight History: He injured his back about 3 years ago and has not been able to maintain physical activity over the last 3 years, he has gained about 50+ pounds. He remembers weighing about 225 in early 50s and had less issues with back. 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 He is now nearly 1 year status post L3-4 XLIF with lateral plate forjunctional stenosis. His symptoms have returned, primarily lower back pain with some radiation intothe legs. He is absolutely miserable. He completed a course of physical therapy. He has also lost 30 pounds working with the bariatric nurse practitioners. * On exam he has extreme back pain with straight leg raise. He walks with an antalgic gait using a cane. No focal neurologic deficits. * I did recommend at this point we check an MRI of his lumbar spine with metal suppression protocol. He will follow-up with me after the MRI to discuss the results and further treatment options. * This note was dictated using speech recognition software and was not corrected for spelling or grammatical errors. DJ-Vzrdsfdmhobg-Fwbkjbny Work Phone: History of Present illness Narrative* 56 year old M presenting for comprehensive weight management evaluation. * Referred by Dr. Bee Blackmon. * Goals: to lose weight to help my back * Pmhx:spinal stenosis, post laminectomy syndrome, elevated glucose, PE on xarelto, HTN, YANNI * Pertinent surgical hx: lumbar laminectomy, arthroscopy of both knees * Personal Weight History: He injured his back about 3 years ago and has not been able to maintain physical activity over the last 3 years, he has gained about 50+ pounds. He remembers weighing about 225 in early 50s and had less issues with back. 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 * Continued topiramate as adjunct to diet/exercise last visit. * Diet Recall: * B - cup of coffee (black) V8 juice * L - Horton (low calorie tortilla) turkey with salad * D - Chicken, vegetables * Beverages - water * Exercise: Stationary bike 3x/week 15 minutes * Goals: to lose weight to help my back * Pmhx:spinal stenosis, post laminectomy syndrome, elevated glucose, PE on xarelto, HTN, YANNI * Pertinent surgical hx: lumbar laminectomy, arthroscopy of both knees * Personal Weight History: He injured his back about 3 years ago and has not been able to maintain physical activity over the last 3 years, he has gained about 50+ pounds. He remembers weighing about 225 in early 50s and had less issues with back. 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 He continues to have primarily axial lower back pain, some radiation into his legs. His symptoms are worse with activity. * I reviewed the MRI personally. This shows excellent central and lateral recess decompression at L3-4 where his XLIF surgery was. There is no significant residual stenosis at any other level. * I discussed the importance of aerobic exercise and ongoing weight loss with him. He also takes chronic opioids, I discussed the importance of weaning off of these medications if at all possible. * Can follow-up with me on an as needed basis. * This note was dictated using speech recognition software and was not corrected for spelling or grammatical errors. ZI-Kzcrsolotyyd-Mbcvfcsg Work Phone: History of Present illness Narrative* Patient returns for follow-up. I saw him in September of last year, he was complaining of chronic lower back pain with minimal leg symptoms. He did not have any weakness at that time. He had an MRI of hislumbar spine which was fairly normal at that point. * At that time I recommended weaning from pain medication and beginning a weight loss and exercise program. He has done fairly well losing weight at this point, however he continues to take oxycodone 5mg 1-2 times a day. * Over the last month or 2 he has had worsening lower back pain with tingling in both legs. He began to develop weakness in his right foot. * On exam today he has a positive straight leg raise test with a substantial right foot drop graded at 1/5. He walks using a cane which is new for him. * Given this new onset weakness I did recommend we check a stat MRI of his lumbar spine. He is going to do this in the [facility], we will have them push the results to PACS. He shouldcall the office for the results of the MRI. * In the meantime I am going to put him on some prednisone. * I will speak with him after the MRI is complete. * This note was dictated using speech recognition software and was not corrected for spelling or grammatical errors. GS-Pknknkwasvol-Xhablcug Work Phone: Hospital Discharge instructions* Activity:activity with assistance and PROGRESSIVE WALKING AT LEAST 2X/DAY. May shower. WHEN NO DRAINAGE FROM INCISIONAL AREA FOR 48 HOURS. May not return to school/work until follow-up visit with Instructions:. May not drive until follow-up visit. No pushing, pulling, or lifting objects greater than 10 pounds. Weight-bearing Instructions: full weight bearing. Other activity instructions: NO EXCESSIVE BENDING/TWISTING, NO HEAVY HOUSE/YARD WORK. * Wound Care 1:Wound Site: Lateral/ FlankWound Type: surgical incisionChange Dressing: daily, UNTIL NO LONGER DRAINING, THEN YOU CAN LEAVE THE OFFCleanse With: soap and water, ONCE THE INCISION IS NO LONGER DRAINING AND YOU ARE ABLE TO SHOWER.Cover With: abdominal dressingTape With: paper tapeIn structions: no lotions, creams, or tub soaksOther Instructions: If there is a prineo dressing (Strip) over your incision, do not remove it with your dressing changes. The dressing will slowly lift away from the skin over time. * Additional Orders:Additional Instructions: MAY USE HEAT OR ICE TO YOUR BACK NEEDED FOR COMFORT NO NSAIDS (ADVIL, IBUPROFEN, ALEVE... ETC.) FOR 8 WEEKS, THEY HAVE A BAD EFFECT ON HEALING OF FUSION. * Call Provider If:Breathing faster than normal. Breathing harder than normal or having retractions. Temperature is greater than 102 degrees. Chills. Urinating less than 4 times per day. Acting very sleepy and difficult to awaken. Vomiting (throwing up) and not able to eat or drink for 12 hours. Any new concerning symptoms. ANY CONCERNS OVER APPEARANCE OF INCISION PLEASE CALL IN ADVANCE WHEN RUNNING LOW ON PAIN MEDS. A PRESCRIPTION EITHER WILL NEED TO BE ELECTRONICALLY SENT OR PICKED UP IN ONE OFTHE OFFICES. * Follow Up Appointment 1:Physician/Dept/Service: Dr. Bee Blackmon/ Orthopaedic Surgery/ SpineReason for Referral: Postoperative Follow-Up AppointmentScheduled Date/Time: 09-Dec-2020 11:15Location: [address], Phone Number: Office: ([place], [place] - [phone]: Please Call Tara Gonzalez RN at [phone] For Any Post-Op Questions [facility] for referral (narrative)* Reason for Referral: L3-4 fusion [facility] Chief Complaint * A telephone visit (audio only) between the patient (at the originating site) and the provider (at the distant site) was utilized to provide this telehealth service. * Lumbar spine evaluation * A telephone visit (audio only) between the patient (at the originating site) and the provider (at the distant site) was utilized to provide this telehealth service. * Lumbar spine evaluation FUV-Spinal stenosisFUV-Spinal stenosisFUV-Spinal stenosisFUV- back painFUV- back painFUV- lower back pain Summary Purpose Family History No Family History Records Found Relationship Condition Age at Onset Recorded Date/T eleanor Not Specified Type 1 diabetes mellitus Unknown Malignant neoplasm of breast Unknown Unknown family medical history Unknown Not Specified Diabetes mellitus Unknown Hypertension Unknown Malignant neoplasm Unknown Relationship Condition Age at Onset Recorded Date/T eleanor Not Specified Diabetes mellitus Unknown Hypertension Unknown Malignant neoplasm of breast Unknown Advance Directives No Advanced Directives Records Found Advance Directive Response Recorded Date/ Time Advance Directives No December 3:03pm Chief Complaint and Reason for Visit Chief Complaint RECHECK BACK PAIN Reason for Visit Chronic pain Chronic, continuous use of opioids Other spondylosis with radiculopathy, lumbar region Chief Complaint RECHECK BACK PAIN Back Pain Back Pain Reason for Visit Chronic pain Chronic, continuous use of opioids Other spondylosis with radiculopathy, lumbar region Chief Complaint RECHECK BACK PAIN Back Pain Back Pain F.U AFTER CAUDAL G89.29 - Other chronic pain Reason for Visit Chronic pain Chronic, continuous use of opioids Other spondylosis with radiculopathy, lumbar region Chronic pain Chronic, continuous use of opioids Other spondylosis with radiculopathy, lumbar region Additional Source Comments <item> Privacy Markings (unrecogniz ed section and content) Section Author: Anjana Goldman PROHIBITION ON REDISCLOSURE OF CONFIDENTIAL INFORMATION This notice accompanies a disclosure of information concerning a client made to you with the consent of such client. (unrecognized sect ion and content) No Status Records FoundNo Status Records FoundNo Status Records FoundNo Status Records FoundNo Status Records FoundNo Status Records FoundNo Status Records FoundNo Status Records FoundNo Status Records FoundNo Status Records Found INFORMATION SOURCE (unrecogn ized section and content) DATE CREATED AUTHOR 09/29/2021 [facility] DATE CREATED AUTHOR AUTHOR'S ORGANIZ ATION 05/01/2022 [facility] DATE CREATED AUTHOR AUTHOR'S ORGANIZ ATION 05/05/2022 [employer] DATE CREATED AUTHOR AUTHOR'S ORGANIZ ATION 05/16/2022 [facility] DATE CREATED AUTHOR AUTHOR'S ORGANIZ ATION 06/24/2022 [facility] DATE CREATED AUTHOR AUTHOR[facility]S ORGANIZ ATION [facility]2022 [facility] DATE CREATED AUTHOR AUTHOR'S ORGANIZ ATION 09/16/2023 [facility] DATE CREATED AUTHOR AUTHOR'S ORGANIZ ATION 12/01/2023 [facility] EPIC DATE CREATED AUTHOR AUTHOR'S ORGANIZ ATION 01/13/2024 [facility] DATE CREATED AUTHOR AUTHOR'S ORGANIZ ATION 01/17/2024 [facility] REASON FOR VISIT (unrecogniz ed section and content) 6 WEEKS2 MONTHSMED REFILLBAC K PAINRECHECKNo InformationRECHECK LUMBAR PAINNo InformationBACK PAINNo InformationBACK PAINNo InformationNo InformationRECHECK BACK PAINNo Information Care Teams (unrecognized sec tion and content) Team Status: Active Member Role Status Meena Weiss DO Primary Care Provider Active Team Status: Inactive Member Role Status Meena Weiss DO Primary Care Provider Active Start: August 05, 2023 End: August 05, 2023 Charles Claros MD Attending Provider Active Sta rt: August 05, 2023 End: August 05, 2023 Team Status: Inactive Member Role Status Meena Weiss DO Primary Care Provider Active Start: September 07, 2023 End: September 07, 2023 Charles Claros MD Attending Provider Active Sta rt: September 07, 2023 End: September 07, 2023 Team Status: Active Member Role Status Meena Weiss DO Primary Care Provider Active Start: September 07, 2023 Charles Claros MD Attending Provider, Other Provider Active Start: September 07, 2023 Team Status: Inactive Member Role Status Meena Weiss DO Primary Care Provider Active Start: September 15, 2023 End: September 15, 2023 Charles Claros MD Attending Provider Active Sta rt: September 15, 2023 End: September 15, 2023 Team Status: Active Member Role Status Meena Weiss DO Primary Care Provider Active Start: September 15, 2023 Charles Claros MD Attending Provider Active Sta rt: September 15, 2023 Goals (unrecognized section and content) Goals may be documented in a n alternate section FOR RECORDS PERTAINING TO PATIENTS WHO ARE OR HAVE BEEN ENROLLED IN A CHEMICAL DEPENDENCY/SUBSTANCEABUSE PROGRAM, SOME INFORMATION MAY BE OMITTED. This clinical summary was aggregated from multiple sources. Caution should be exercised in using it in the provision of clinical care. This summary normalizes information from multiple sources, and as a consequence, information in this document may materially change the coding, format and clinical context of patient data. In addition, data may be omitted in some cases. CLINICAL DECISIONS SHOULD BE BASED ON THE PRIMARY CLINICAL RECORDS. [employer] [facility]. provides no warranty or guarantee of the accuracy or completeness of information in this document.
[2024-02-04 07:58] LABS: Alanine Aminotransferase 37 U/L (16-63); Albumin Globulin Ratio 0.9; Albumin Level 3.6 g/dL (3.4-5.0); Alkaline Phosphatase 111 U/L (46-116); Anion Gap 13.8; Aspartate Amino Transferase 14 U/L (15-37); BUN Creatinine Ratio 14.9; Bilirubin Total 0.5 mg/dL (0.2-1.0); Calcium 9.3 mg/dL (8.5-10.1); Carbon Dioxide 26.7 mmol/L (21.0-32.0); Chloride 98 mmol/L (98-107); Chol HDL Ratio 5.5; Cholesterol 277 mg/dL (<=200); Estimated GFR (African America >60 (>=60 mL/min/1.73m^2); Estimated GFR (Non-African Ame >60 (>=60 mL/min/1.73m^2); Globulin 3.9 g/dL; Glucose 345 mg/dL (74-106); HDL Cholesterol 50 mg/dL (40-60); Potassium 4.5 mmol/L (3.5-5.1); Sodium 134 mmol/L (136-145); Total Protein 7.5 g/dL (6.4-8.2); Triglycerides 581 mg/dL (<=150); VLDL CHOLESTEROL 116.2 mg/dL
[2024-02-04 08:01] LABS: Prostate Specific Antigen Scrn 1.41 ng/mL (<=4.00)
[2024-02-04 09:57] LABS: LDL Cholesterol Direct 108 mg/dL
== END 2024-02-04 06:37 | disposition home or self-care (01) ==
LOC: LAB 06:37
PROVIDERS: PCP Family Medicine; Visit Provider Family Medicine
DX: E78.5 Hyperlipidemia, unspecified (principal); I10 Essential (primary) hypertension; Z12.5 Encounter for screening for malignant neoplasm of prostate
CPT/HCPCS: 36415; 80053; 80061; 83721; G0103

== ENCOUNTER 2024-02-07 06:34 | Outpatient (OUT) | payer OTHER, SELFPAY ==
--- OUTSIDE RECORDS SUMMARY | 2024-02-07 06:39 | XMS_ITS | CCD ---
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 Kimi [...] Care Provider MD Charles Claros Attending Provider [phone] Charles Claros Attending Unavailable Kimi Weiss Primary Care Unavailable Charles Claros Admitting Unavailable Kimi Weiss Primary Care Unavailable Charles Claros Admitting Unavailable Charles Claros Attending Unavailable THALIA SANDY Attending Unavailable KARON RODRIGUEZ Attending Unavailable BEE BLACKMON Attending Unavailable KIMI WEISS Primary Care Unavailabl e Kimi Weiss Primary Care Unavailable Kimi Weiss Attending Unavailable Kimi Weiss Primary Care Unavailable Kimi Weiss Attending Unavailable Kimi Weiss Referring Unavailable Kimi Weiss Primary Care Unavailable Kimi Weiss Attending Unavailable Kimi Weiss Referring Unavailable Kimi Weiss Attending Unavailable Kimi Weiss Primary Care Unavailable Kimi Weiss Primary Care Unavailable Georgina Santana Admitting Unavailable Georgina Santana Attending Unavailable Kimi Weiss Primary Care Unavailable Kimi Weiss Attending Unavailable Kimi Weiss Referring Unavailable Kimi Weiss Attending Unavailable Kimi Weiss Primary Care Unavailable Allergies Allergy Classification Reported Allergen(s) Allergy Type Date of Onset Reaction(s) Facility (1 source) ALLERGIES NOT ON FILE; Translations: [ALLERGIES NOT ON FILE] Propensity to adverse reactions (disorder) [facility] Medications Current Medications Medication Drug Class(es) [...] Active 1 TAB PO Twice daily 60 August 06, 2023 Start: 07-09-2018 End: 06-13-2019 Oxycodone-Acetaminophen (Per cocet) 5-325 mg tablet Discontinued 1 TAB PO .Q12 July 09, 2018 June 13, 2019 11:45pm cyclobenzaprine hydrochloride 10 mg oral tablet (20 sources) Muscle Relaxant Start: 02-28-2020 End: 03-05-2020 take 10 mg by mouth twice daily Cyclobenzaprine Active 10 MG PO Twice daily March 05, 2020 5:05pm esomeprazole 20 mg [...] 2017 12:00am August 05, 2023 9:05am sennosides, prison 8.6 mg oral tablet (1 source) Start: [...] every four hours as needed for headache Prxtidnkby-BAAZ-S affeine 50-300-40 MG Oral Capsule TAKE 1 [...] Adhesive Patch,Medicated Discontinued 1 PATCH TOPICAL Daily 30 June 15, 2019 1:00am February 28, 2020 1:49pm methocarbamol 500 mg oral [...] cause serious breathing problems. 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, Marisol Start : 23-Apr-2021 Active Triamcinolone (13 sources) Corticosteroid Start: 01-30-2017 TRISTAN - 10 m g 14 Jan, 2017 [...] region] Episodic Other aftercare (1 source) Other [facility] (current) drug therapy; Translations: [OTH JAIL CURRENT DRUG THERAPY] Onset: 04-15-2022 Episodic Other aftercare (1 source) [facility] (current) use of anticoagulants; Translations: [JAIL CURRNT USE ANTICOAGULANTS] Onset: 04-15-2022 Episodic Other aftercare (4 sources) Long-term current use of anticoagulant; Translations: [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] 02-28-2020 Episodic Other [...] Test Name Value Interpretation Reference Range Facility Rad - Other Radiology Report on 02-04-2024 Rad - Other Radiology Report [id number]#1.00OTGTI FF [facility] Coding Summaryon 09-23-2023 Coding Summary HTMLBase 64 IsxurlxxVJu3xDt+PGhlYWQ+P J8VJNRhK44dwDDvjL6rP9OZZF lOSywgQVBQTElOSyIgbmFtZT1 kaXNjZXJu IC8+NJ8dDJAxKuhoiRFjt6T6x AC0A39fae0kVOkpdTX2LARpOe Rldoeqh8hkdXw7YQxaYnkuLqT t TKFcwA53NBB6cK69Ff57vZUrv TKqx9qloYo0YtJkQJRbDBU7fV viLVrob3KqXSVvG94ggMCon6J 6 GBCjvEbthZXzKtIjtLA0jG2nQ Npdadtmu9pxmgzrGtv0nn67hI Idf2X0mUX6W0LtweI8JFVcxJA g XplikHQItN0iavezo6afmvxlI bFzLABtLWu5MEk2MYDenPtlIg GxVO10JFI3MXLxovDjL6SuWSE s yEfkYsV1w4U5Uj1NV5MRBntiD 1VNTUFSWTwvdGQ+AY49iz14R8 QrCdgfYww5IZLlLDG5aZX2tA5 n XZViMEoyn3U6jOR3B2AgfzHvo w5lz4fjYEViJSsoD31cpGCvc8 W2AKHnyKP7ZHVlxHxqKhKxrD3 3 Oyc+RSDosXzju5OoVzfqh9exh 8isxPe2LcpaLUGsoiPouBziFB C4t4NrSe5tBXIsyJR7iMX0nW2 i OhLeZuG4PLpdF022DuLfwFPuM hyeH03kY7QhcWY+KVBcMtw7KO KixNigDM9fU3UjSOMpiukuwDQ m sVlbQL3pTXYryjsrCWRzqX5lY FAuA2b4ReDrHgG7MYtlY7KsTY UuloxkZj52gA7iVhZoKfN2CSc u Y9KqfsE9KZWmsRNlUYpgDYN4N 45ky4H3DZZpJEOaDTQ8pTD3pO 1hbGlnbjogbGVmdDsgdmVydGl j IHjnNTzyA048BADnjUfgNpHpK GluZyBEYXRlOiAgMDYvMDYvMj AyNDwvdGQ+GMDjGVT4cWrsLPG n cPEhAPgdIg1rfZoxqIodDU9vC ESzrtwsTJHquL7xLTClpEHgmN ujHN6dUAFhkyosz617LmZhIWJ 0 IMWtcUYtS1KsvS6xTkHvSQAjV HAmM8CgnPKfQSngQ841FGqyUz O0ACUkltOpM7YaRZDtzPwgAeQ 0 w0A5Cc5Kz0HnnnmdR3InuXDgY pJqIookBYd8P9WlYlnapFZ+PC 27PMPaPD62OHr5IUD8oOtnAYl i PGLtK0ClaS6oHcYzERJqKFJjF yc+PHRhYmxlIHdpZHRoPScxMD QsKsAbnGelBJ1bGv5eIXFvXKD v vDenbOUjCiGqz9xjXTQaBYisZ U0snFlrZ0EpzHY3QSOtv5d9Xn 89I55bM1FntRD+TACehXW0cRJ 0 cI2gPeSmNbN7WEaxI063CtJcp ZWaDuojg8fbe6somTt1TdH4CG DiznOcdWokGZF9w3XzHy55N51 s IHdpZHRoPSIxNSUiIHZhbGlnb v1zyF1eWs1+VZChoGW8sSD8rB 1kRhQfBmF7CLouA311FpFksVX v Dgbzw9csu8pslNw4EdBwMTNci rFhxUtmINR9b9QvWw42C8MttI stu7RdLnz5af59tAJqa5I2vYO 9 B8MnPTGblvhmsVTjnPfxVF0cM NWwcduhNMRwrQ2ePORaQ7d3Bx GgFhH5MQovC0PnmoN3OEUdzQW g OHYvpMMUhT9rrdiop5witrzjO yWcLLKmTAq2SBm1VDKbeNmxQn MnOWV4FyZ5FTJ6nQGmxW9krXc n uhuslG0pXou+KZX5zDAnwCFCN T1qErpvnNS+AEWjBQH2dMtpQA vqLCAszO5fPYQnF3h3UsNtBjR 1 BHjfE4IwhqD7YZRueYTnGSTfw ASGyC0gpsaez8wvizpwTvIhFP QvTVl8WNc7LWVdcSivMwHvWGK 0 MxC0YLP4rWSosH3niInnmhzpj G9wOyc+AnqftGsxCCF4CHj1D6 XaOkr5MGLdaMzgMF7gxDNuNQr u Oz1xpKerkNtyRJ2dEPRpdarus 855NkAsf5oeGPCwjFQjKMihEV G4H78ev3O4WJVtGCUbQYS6dCB 4 iI3xxIjxmckwoHBcjGdrndEak AtxFBgbQWshY554KJMunVfvXz JvBHj5D2DgUpm1FTGesIfmHT5 n cSHmNYvtFg9seCpyiKueJU4pO DHkeldfy224RrWje5aiMNZxkZ VhDUvkFAP6M70ty2O0TZRoLKJ w NJS9xCI2tL0ifVphpkqruSNcj DhuruHtmWplKVghVXczK621VI LlwKkcWdRyxAz9P9HtQbt6EFN z cIupZS8rdKFmMSosFh5jgBctk FpeEI5tBUPphnqdx071HfTol1 nwZJBicBCzDEobRRO0N80dd8I 6 XQFfRGNxKAN5iRR7vJ1neBhvm jogbGVmdDsgdmVydGljYWwtYW uyL959MTCosLleDqTnyMzuaaH g ARgxLHv6C9BlYwvidOP+PC90Y GOnPT72fFYncOKsm1brmXm8Cj KdLCUcBBS4rCdzLFxgk6ByAJX t C11knTLtg6N5YMRnoGecqYFiJ jZeeTY6wR4zKCglhgymc7rdwx qqEbznd6tzbl58yW37Y64hSZr p RPJsYFJhFXZxITPdyWfonl9nq G9wIi8+GKVgqTD9gPL6lE0hGR GfOgZ5CGdyF250FsCatENfZfd j n4zuh9ejdZv9MhV7TFQojgPaz IpyIBN0j9PgEb16I30wPHxiAG EjXSDvSJPvJTRggFxvkj8qiO8 w Ii8+DZKquIX2vGC4sX4dExGqN kD3MXkuR023ZbCszJFhRmzlW0 7jZ2RypFF+TOInAvs3GOInwYy s GU1wkCJzBQeyWo7nFQC5ScEvI wJeNInxY9NuXUWfkdwwldyyrE S4MZRpYQDntO32Xe9gmIimBQN w nOYKeM7cybdok4jtfmmmEcPfX YLkOMl4MWs6WDIcjPccZiOaVE P6GyH2GSG8nUWrzC8egVxsxpy g lK5oT0FeLNNstxcgYx15gJ9mV pIpHuV6LMdhDbi+PlrMD7ZdRP KDEG6oGzaqfSX+ZYHkWAT6sHd l LEnoSEMvuC7aAARbB2w3XcMmY cM2KXvhB1TgVPEzlinkNp46dO 0eDzUvBzP4SHivH1QgarJ1FWT w aQNcMNdlSTX3M26fk3X9AFLiN MVyKZA3iIY2eE3rkJhjdwpsjN FlrUdfbmGiiFfpKHcuFWspJ92 6 SKAnwUlpOmMnBsY9RlM7NmH7V 3TuFej3ATSdmClzJC8bfXBtAQ gaYp2zlZkyvRchFD2kZHAljmc w ZVKagJ4pVSYmfTQuhVzfBL8vX VVircroe035GpHmHYD6TQMdtD KgR6ZcyJ5dWvFfCUYdEZXmW5S l tMAiEXolE656RVypRmZ8EZCvk oUwZ2QcRVMxsCprQwQ9j2Q9Qs 41NyBZZWFyczwvdGQ+PHRkIHN 0 vUwqHUpvAAPhpW4bIFRkO4h4I nDsNnT3VGrlQ6BnKADdrblaZn 63dF7aHiPvUiR3CVumB2YyzkX 6 IEEudITpMLgbDAE3B86gw3K7Y KZhUPPfNLM4bZA3gS8ehZyuoj ogbGVmdDsgdmVydGljYWwtYWx p U016UOQmbTtgBa5WOMF3B2RuP nz5ZSXpzPuoOI4jyUKcJNfnWw 8oeDnvzUziJG7lKHOuzonePRR k oR4dZJEoeSHzjZtmCO2zGFVlf kbva146CnFqCPW8ISYrcJCxA4 BbeY9iZlJpWVVfJFXcG5NwlZE t MGzkU663KFjrOwB9SDVotnCtX 3BrOJSvgDseDuO4j2I2Ai6MXE D6ufWzyojoB6U9aTW0iPLwcKk v dGQ+TH48ev84K6FvMhkyIow8G TIjETH2tXG2dF3xLAJgTOtgl6 N0vMJ1J9TunrOcie7hj3zfVRF z JAvjJ24scXWdc6S1XHYzrFY1B IQxwHpcWjMxfK57Ouq+PGNvbG wla8ElOsvaa8gpt4jneRk2VcI w ODCainVvdWwtQMW8a6AdOv42L 29sIHdpZHRoPSIzMCUiIHZhbG hffl7ibZ7eXw0+XTJriBY4gGO 0 wX8hTjIsKkG2WLniY869JjCdx GMzPvmll9spq3mtkLx0SlLnPV SaemTyyWolWRR1m8BeHx02K2L v wUrbz0UwZbb7kj34dTYhs8Z0f HK7O9KwXSEsfacyxMLoyJyzOU 3tBGIhcgooLPNqrA9xSGTfK6y 0 ZwCcFrN6HMiaY0TtakA5YXGqz UFjOOEznPKQeY8adwxhh5srrf rvLpRuGUMeULp8VEv6DFRzaPx u QsNoZOU9KyG2CSF5nJEkeQ9or HrayybbuK4hIzx+KOw6e7eksE OjKR8njKD6PR20ZX13mBJdv9I 5 zBO4R4NxXDMcftsnwuohaTZ3M XCzAWPjsQ01Lb7jnNmbBn2jXF SdLVR4MRMycZWaQ6RdnW9uPeB j IXPvZJWwS4EnaICnDTluC498I YvrFmC7HTBmbgHeR4YuANUufK hkRfI7m6X7Yi5UNB50YT50IB6 8 wLGvn9V7yAH4D1IpZKTswlscb kqtyHG0ZUFgADWbsP88Em0ogT uzBn5jHCCfFUH7VCXmuNYuK7Z v kY5sGjXwHKGxJBVlT1YbnKQuF VikT877TKjgSlM9BJYnqoRnX3 CrERPydJziPhB5y6B2Gz1WBc4 6 EK31JX34ySTym7F5vTE2J6UxW ABqypftomrikLU8OHVoZCVabO 83Oo1mfUkxAd4tMCAxUBD8TRP p cNGaJ3FziL6yHyCaCVAqWCKjN 0ConVDbUGjbJ111NGnsTdW3VA OalgIuU4DeLRFiiPrlFqU7w8U 7 Ln1LTTllsij1J5WdDdoesMB+P L33RNSbIQ82hVTllISwy4gkyV q5PeDmXHXnDTZ0hJfwUOybm0S k ZXI (more content not included)... [facility] Outside Recordson 09-17-2023 Outside Records [id number]#1.00OTGT IFF [facility] XR hip RT min 2V(w/wo pelvis )*on 09-15-2023 XR hip RT min 2V(w/wo pelvis)* [facility] [address] [place] [address] XRay Report Signed Patient: Lyly Quinn MR#: [id number] : 1965 Acct:[id number] Age/Sex: 58 / M ADM Date: 09/15/23 Loc: [facility] Room: Type: [facility] Attending Dr: Charles Claros MD Copies to: [...] Terrence Basurto M.D.09/15/2023 3:16 PM Dictation Location: [place] [address] Transcribed By: [facility] 09/15/23 151 Dictated By: Terrence Basurto II, MD 09/15/231514 Signed By: 09/15/231515 [facility] XR lumbar spine AP/LAT/FLX/E XTon 09-15-2023 XR lumbar spine AP/LAT/FLX/EXT [facility] [address] [place] [address] XRay Report Signed Patient: Lyly Quinn MR#: [id number] : 1965 Acct:[id number] Age/Sex: 58 / M ADM Date: 09/15/23 Loc: [facility] Room: Type: [facility] CLI Attending Dr: Charles Claros MD Copies to: [...] Terrence Basurto M.D.09/15/2023 3:19 PM Dictation Location: [place] [address] Transcribed By: [facility] 09/15/23 151 Dictated By: Terrence Basurto II, MD 09/15/231515 Signed By: 09/15/231518 Normal [facility] ED Note - Provideron 024 ED Note - Provider [id number]#1.00OTGT IFF [facility] Lab - Other Lab Result[facility] Lab - Other Lab Results [id number]#1.00OTGT IFF [facility] 09-08-2023 Outside Records [id number]#1.00OTGTIF F [facility] Provider Orderson 08-26-2023 Provider Orders [id number]#1.00OTGT IFF [facility] 08-09-2023 Outside Records [id number]#1.00OTGTIFF [facility] 02-26-2023 Outside Records [id number]#1.00OTGTI FF [facility] MR BRAIN W AND WO CONTRAST ( [...] No acute intracranial process. ELECTRONICALLY SIGNED BY: Chandler Tomlinson, DO Normal Not Available Lab - Other Lab [facility] - Other Lab Results [id number]#1.00OTGTI FF Normal [facility] NR MRI L-SPINE WOon 05-12-19 23 NR MRI L-SPINE WO Patient Name: LYLY QUINN STUDY: MRI L-SPINE WO; 05/12/2022 8:35 am INDICATION: acute right foot drop, previous surgery, had MRI 2 weeks ago with insufficient metal reduction unable to assess junctional levels M96.1: Lumbar postlaminectomy syndrome M21.371: Right foot drop. COMPARISON: Outside hospital MRI L-spine dated 04/30/2022 ACCESSION NUMBER(S): [id number] ORDERING CLINICIAN: BEE BLACKMON TECHNIQUE: Sagittal T1, [...] Alvarado. Electronically signed by: DILMA VERA MD [facility] MRI Lumbar Spine w/oon 04-30 MRI Lumbar [...] by Carlos Hayward on 05/01/2022 0917 Normal [facility] Maintenance Parts Technician Established Visit (Orthopaed ic Surgery)on 04-27-2022 Established [...] is going to do this in the [facility], we will have them push the [...] 01/07/2021 10:40:28 AM Current Meds Medication NameInstruction Tpqistlkzb-LXPR-Wwmfggfi 50-300-40 MG Oral CapsuleTAKE 1 CAPSULE BY [...] Apr 27 2022 10:06AM EST (Author) Normal [employer] AUTO DIFFon 04-14-2022 BASO # 0.0 103/ul Normal 0.0-0.1 [facility] Comment on above: Performed By: #### C BC #### [facility] [address] [place] [address] Dr. Devonte Rivas Basophils/100 WBC (Bld) 0.4 % Normal 0.2-2.0 [facility] Comment on above: Performed By: #### C BC #### [facility] [address] [place] [address] Dr. Devonte Rivas EO # 0.1 103/ul Normal 0.0-0.7 [facility] Comment on above: Performed By: #### C BC #### [facility] [address] [place] [address] Dr. Devonte Rivas Eosinophils/100 WBC (Bld) 0.9 % Normal 0.9-7.0 [facility] Comment on above: Performed By: #### C BC #### [facility] [address] [place] [address] Dr. Devonte Rivas Erythrocyte distribution width (RBC) [Ratio] 12.4 % Normal 11.0-15.0 [facility] Comment on above: Performed By: #### C BC #### [facility] [address] [place] [address] Dr. Devonte Rivas Hematocrit (Bld) [Volume fraction] 42.4 % Normal 42.0-54.0 [facility] Comment on above: Performed By: #### C BC #### [facility] [address] [place] [address] Dr. Devonte Rivas Hemoglobin (Bld) [Mass/Vol] 14.8 g/dL Normal 14.0-18.0 [facility] Comment on above: Performed By: #### C BC #### [facility] [address] [place] [address] Dr. Devonte Rivas IG # 0.03 10e3/ul Normal 0.00-0.03 [facility] Comment on above: Performed By: #### C BC #### [facility] [address] [place] [address] Dr. Devonte Rivas IG % 0.6 % Critically high 0.0-0.5 [facility] Comment on above: Performed By: #### C BC #### [facility] [address] [place] [address] Dr. Devonte Rivas LYMPH # 1.7 103/ul Normal 1.2-3.8 [facility] Comment on above: Performed By: #### C BC #### [facility] [address] [place] [address] Dr. Devonte Rivas Lymphocytes/100 WBC (Bld) 31.6 % Normal 20.5-60.0 [facility] Comment on above: Performed By: #### C BC #### [facility] [address] [place] [address] Dr. Devonte Rivas MANUAL DIFF REQ NO Normal [facility] Comment on above: Performed By: #### C BC #### [facility] [address] [place] [address] Dr. Devonte Rivas MCH (RBC) [Entitic mass] 31.3 pg Normal 25.9-34.0 [facility] Comment on above: Performed By: #### C BC #### [facility] [address] [place] [address] Dr. Devonte Rivas MCHC (RBC) [Mass/Vol] 34.9 g/dL Normal 29.9-35.2 [facility] Comment on above: Performed By: #### C BC #### [facility] [address] [place] [address] Dr. Devonte Rivas MCV (RBC) [Entitic vol] 89.6 fL Normal 80.0-94.0 [facility] Comment on above: Performed By: #### C BC #### [facility] [address] [place] [address] [address] Devonte Rivas MONO # 0.9 103/ul Critically high 0.3-0.8 [facility] Comment on above: Performed By: #### C BC #### [facility] [address] [place] [address] [address] Devonte Rivas Monocytes/100 WBC (Bld) 15.6 % Critically high 1.7-12.0 [facility] Comment on above: Performed By: #### C BC #### [facility] [address] [place] [address] Dr. Devonte Rivas NEUT # 2.8 103/ul Normal 1.4-6.5 [facility] Comment on above: Performed By: #### C BC #### [facility] [address] [place] [address] Dr. Devonte Rivas Neutrophils/100 WBC (Bld) 50.9 % Normal 43.0-75.0 [facility] Comment on above: Performed By: #### C BC #### [facility] [address] [place] [address] Dr. Devonte Rivas Platelet mean volume (Bld) [Entitic vol] 9.4 fL Critically low 9.5-13.5 [facility] Comment on above: Performed By: #### C BC #### [facility] [address] [place] [address] Dr. Devonte Rivas PLT 194 103/ul Normal 150-450 [facility] Comment on above: Performed By: #### C BC #### [facility] [address] [place] [address] Dr. Devonte Rivas RBC 4.73 106/ul Normal 4.70-6.10 [facility] Comment on above: Performed By: #### C BC #### [facility] [address] [place] [address] Dr. Devonte Rivas WBC 5.4 103/ul Normal 4.0-11.0 [facility] Comment on above: Performed By: #### C #### [facility] [address] [place] [address] [address] Devonte Rivas CTA CHEST WO W [...] DANIEL BENITEZ Date: 2022-04-14 10:29 Normal [facility] Covid-19 PCR (CVDTB)on 03-20 SARS-CoV-2 (COVID-19) RNA LEATHA+probe Ql (Unsp spec) Detected Critically abnormal NOT DETECTED [facility] Comment on above: Result Comment: This test is not yet approved or cleared by the [place] FDA. When there are no FDA-approved or cleared tests available, and other criteria are met, FDA can make tests available under an emergency access mechanism called an Emergency Use Authorization (EUA). The EUA for this test is supported by the [place] of Health and Human Service's declaration that [...] used). Performed By: #### C VDTBH #### [facility] [address] [place] [address] Dr. Devonte Rivas INFLUENZA A AND B AGon 04-14 INFLUANE SEE BELOW Normal [facility] Comment on above: Result Comment: Nega tive for Flu A protein angiten. Infection due to Flu A cannot be ruled out. Flu A angiten in the sample may be below the detection limit of the test. Performed By: #### I NFLUAB #### [facility] [address] [place] [address] Dr. Devonte Rivas INFLUBNEG SEE BELOW Normal [facility] Comment on above: Result Comment: Nega tive for Flu B protein antigen. Infection due to Flu B cannot be ruled out. Flu B antigen in the sample may be below the detection limit of the test. Performed By: #### I NFLUAB #### [facility] [address] [place] [address] Dr. Devonte Rivas INFLUENZA A AG Negative Normal NEGATIVE SEE COMMENT [facility] Comment on above: Performed By: #### I NFLUAB #### [facility] [address] [place] [address] Dr. Devonte Rivas INFLUENZA B AG Negative Normal NEGATIVE SEE COMMENT [facility] Comment on above: Performed By: #### I NFLUAB #### [facility] [address] [place] [address] Dr. Devonte Rivas INTERNAL CONTROLS Within Normal Limits Normal Wi thin Normal Limits [facility] Comment on above: Performed By: #### I NFLUAB #### [facility] [address] [place] [address] Dr. Devonte Rivas PROF CHEM 8 (BAS METB)on Anion gap [Moles/Vol] 12.0 mmol/L Normal [facility] Comment on above: Performed By: #### H STROPN, BMP #### [facility] [address] [place] [address] Dr. Devonte Rivas Calcium [Mass/Vol] 9.2 mg/dL Normal 8.5-10.1 [facility] Comment on above: Performed By: #### H STROPN, BMP #### [facility] [address] [place] [address] [address] Devonte Rivas Chloride [Moles/Vol] 100 mmol/L Normal 98-107 [facility] Comment on above: Performed By: #### H STROPN, BMP #### [facility] [address] [place] [address] [address] Devonte Rivas CO2 [Moles/Vol] 26.2 mmol/L Normal 21.0-32.0 [facility] Comment on above: Performed By: #### H STROPN, BMP #### [facility] [address] [place] [address] [address] Devonte Rivas Creatinine [Mass/Vol] 0.99 mg/dL Normal 0.70-1.30 [facility] Comment on above: Performed By: #### H STROPN, BMP #### [facility] [address] [place] [address] [address] Devonte Rivas EGFR-AF CHILEAN >60 Normal >=60 [facility] Comment on above: Performed By: #### H STROPN, BMP #### [facility] [address] [place] [address] [address] Devonte Rivas EGFR-NON AF CHILEAN >60 Normal >=60 [facility] Comment on above: Performed By: #### H STROPN, BMP #### [facility] [address] [place] [address] [address] Devonte Rivas Glucose [Mass/Vol] 163 mg/dL Critically high 74-106 [facility] Comment on above: Performed By: #### H STROPN, BMP #### [facility] [address] [address] [address] Devonte Rivas Potassium [Moles/Vol] 4.2 mmol/L Normal 3.5-5.1 [facility] Comment on above: Performed By: #### H STROPN, BMP #### [facility] [address] [address] [address] Devonte Rivas Sodium [Moles/Vol] 134 mmol/L Critically low 136-145 [facility] Comment on above: Performed By: #### H CECELIA, BMP #### [facility] [address] [address] [address] Devonte Rivas Urea nitrogen [Mass/Vol] 11.0 mg/dL Normal 7.0-18.0 [facility] Comment on above: Performed By: #### H WINIFREDPN, BMP #### [facility] [address] [address] [address] Devonte Rivas Urea nitrogen/Creatinine [Mass ratio] 11.1 mg/mg Normal [facility] Comment on above: Performed By: #### H CECELIA, BMP #### [facility] [address] [address] [address] Devonte Rivas TROPONIN, HIGH SENSITIVITYon 04-14-2022 HSTROP <4.0 Normal 4.0-76.1 [facility] Comment on above: Result Comment: CUT- OFF POINTS HAVE BEEN ESTABLISHED BASED ON THE FOURTH UNIVERSAL DEFINITIONS OF MYOCARDIAL INFARCTION. THE UPPER REFERENCE LIMIT (URL) OF TROPONIN, DEFINED THE 99TH PERCENTILE OF cTnI DISTRIBUTION IN A REFERENCE POPULATION, HAS BEEN CONFIRMED THE DECISION THRESHOLD FOR ND DIAGNOSIS. Performed By: #### H CECELIA, BMP #### [facility] [address] [address] [address] Devonte Rivas XR CHEST 1 Von 04-14-2022 XR CHEST 1 V EXAM: Chest x-ray HISTORY: . SHORTNESS OF BREATH . COMPARISON: 10/26/2010 TECHNIQUE: Frontal and lateral chest. FINDINGS: Heart and vascularity are unremarkable. Lungs are free of focal infiltrates. EKG leads overlie the chest. Impression: No acute heart or lung disease identified. 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 Normal [employer] MRI Lumbar Spine w/oon 09-05 MRI Lumbar [...] by Chandler Tomlinson on 09/08/2021 1127 Normal [facility] [employer] CT Abdomen/Pelvis w/ [place] ton 08-05-2021 CT [...] by Chandler Tomlinson on 08/06/2021 0906 Normal [facility] [employer] Established Visit (Orthopaed ic Surgery)on 07-28-2021 Established Visit (Orthopaedic Surgery) Diagnoses/Problems Assessed Lumbar postlaminectomy syndrome (722.83) (M96.1) Orders Lumbar postlaminectomy syndrome MRI L Spine without Contrast; Status:Hold For - Scheduling,Retrospective Authorization; Requested for:[id number]; Radiologist to Determine Optimal Study : Y Does the patient have a Cochlear Implant, Pacemaker, Defibrilator, Pacing Wire, Brain Aneurysm Clip, Implanted Nerve or Bone Graft Simulator, Implanted Breast Tissue Substance Addiction Coordinator, Glucose Monitor, or Neulasta Device? 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 Normal [employer] Nutrition-[place] 05-06-2021 Nutrition-Adult Medical Diagnosis Assessed Class [...] fatty acids and low saturated fat content. [place], mackerel, albacore tuna, sardines, mills and franco [...] occasionally snack (more content not included)... Normal [employer] No Panel Informationon 04-23 3638 1 VZ-Yinncfc-E arma MAC2 303 Work Phone: [phone] EA-Nvgwjbq-Z arma MAC2 303 Work Phone: [phone] NB-Elzgija-Y arma MAC2 303 Work Phone: [phone] AA-Whwiyqs-N arma MAC2 303 Work Phone: Comment on above: Age: 56Height: 73 in Sex: MLevel of Activity: Sedentary (little or no exercise)Weight: 292 lb 2138 1 JI-Etnvusk-O arma MAC2 303 Work Phone: [phone] UY-Jfhqeay-D arma MAC2 303 Work Phone: Tobacco Screening.on 022 Fall risk assessment a) No falls within the last year OQ-Boysecc-B arma MAC2 303 Work Phone: Tobacco use status CPHS b) No RC-Poqxzfe-V arma MAC2 303 Work Phone: Radiologyon 03-10-2021 XR Lumbar spine AP and Lateral Please click on the link to view the study images Normal [facility] Work Phone: SPINE, LUMBOSACRAL; 2 OR 3 V IEWSon 03-10-2021 SPINE, LUMBOSACRAL; 2 OR 3 VIEWS Patient Name: LYLY QUINN STUDY: SPINE, LUMBOSACRAL; 2 OR 3 VIEWS; ; 03/10/2021 11:16 am INDICATION: pain M96.1: Lumbar postlaminectomy syndrome M48.062: Spinal stenosis of lumbar region with neurogenic claudication. COMPARISON: 12/09/2020. ACCESSION NUMBER(S): [id number] ORDERING CLINICIAN: BEE BLACKMON FINDINGS: Lumbosacral spine [...] Electronically signed by: JANET VILLARREAL MD [facility] Radiologyon 12-09-2020 XR Lumbar spine AP and Lateral Please click on the link to view the study images Normal MG-[facility]opa[facility] Work Phone: SPINE, LUMBOSACRAL; 2 OR 3 V IEWSon 12-09-2020 SPINE, LUMBOSACRAL; 2 OR 3 VIEWS Patient Name: LYLY QUINN STUDY: Lumbar Spine, 2 views. INDICATION: low back pain. COMPARISON: Outside hospital lumbar spine radiographs 08/29/2020 ACCESSION NUMBER(S): [id number] ORDERING CLINICIAN: BEE BLACKMON FINDINGS: Redemonstration of [...] Electronically signed by: WILLIAMS GUZMAN MD [facility] BASIC METABOLIC PANELon 11-17 ANION GAP Canceled [facility] Comment on above: Order Comment: TEST BASIC METABOLIC PANEL WAS CANCELLED, 12/01/2020 18:56 NO SPECIMEN RECEIVED IN LAB. Performed By: #### B MP #### [facility] [address] [place] [address] BICARBONATE Canceled [facility] Comment on above: Order Comment: TEST BASIC METABOLIC PANEL WAS CANCELLED, 12/01/2020 18:56 NO SPECIMEN RECEIVED IN LAB. Performed By: #### B MP #### [facility] [address] [place] [address] CALCIUM Canceled [facility] Comment on above: Order Comment: TEST BASIC METABOLIC PANEL WAS CANCELLED, 12/01/2020 18:56 NO SPECIMEN RECEIVED IN LAB. Performed By: #### B MP #### [facility] [address] [place] [address] CHLORIDE Canceled [facility] Comment on above: Order Comment: TEST BASIC METABOLIC PANEL WAS CANCELLED, 12/01/2020 18:56 NO SPECIMEN RECEIVED IN LAB. Performed By: #### B MP #### [facility] [address] [place] [address] CREATININE Canceled [facility] Comment on above: Order Comment: TEST BASIC METABOLIC PANEL WAS CANCELLED, 12/01/2020 18:56 NO SPECIMEN RECEIVED IN LAB. Performed By: #### B MP #### [facility] [address] [place] [address] GFR- AM. Canceled Normal [facility] Comment on above: Order Comment: TEST BASIC METABOLIC PANEL WAS CANCELLED, 12/01/2020 18:56 NO SPECIMEN RECEIVED IN LAB. Result Comment: CALC ULATIONS OF ESTIMATED GFR ARE PERFORMED USING THE MDRD STUDY EQUATION FOR THE IDMS-TRACEABLE CREATININE METHODS. CLIN CHEM 2007;53:766-72 Performed By: #### B MP #### [facility] [address] [place] [address] GFR-NON AM. Canceled Normal [facility] Comment on above: Order Comment: TEST BASIC METABOLIC PANEL WAS CANCELLED, 12/01/2020 18:56 NO SPECIMEN RECEIVED IN LAB. Performed By: #### B MP #### [facility] [address] [place] [address] GLUCOSE Canceled [facility] Comment on above: Order Comment: TEST BASIC METABOLIC PANEL WAS CANCELLED, 12/01/2020 18:56 NO SPECIMEN RECEIVED IN LAB. Performed By: #### B MP #### [facility] [address] [place] [address] POTASSIUM Canceled [facility] Comment on above: Order Comment: TEST BASIC METABOLIC PANEL WAS CANCELLED, 12/01/2020 18:56 NO SPECIMEN RECEIVED IN LAB. Performed By: #### B MP #### [facility] [address] [place] [address] SODIUM Canceled [facility] Comment on above: Order Comment: TEST BASIC METABOLIC PANEL WAS CANCELLED, 12/01/2020 18:56 NO SPECIMEN RECEIVED IN LAB. Performed By: #### B MP #### [facility] [address] [place] [address] UREA NITROGEN Canceled Normal [facility] Comment on above: Order Comment: TEST BASIC METABOLIC PANEL WAS CANCELLED, 12/01/2020 18:56 NO SPECIMEN RECEIVED IN LAB. Performed By: #### B MP #### [facility] [address] [place] [address] CBCon 12-01-2020 HCT Canceled [facility] Comment on above: Order Comment: TEST CBC WAS CANCELLED, 12/01/2020 18:56 NO SPECIMEN RECEIVED IN LAB. Performed By: #### C BC #### [facility] [address] [place] [address] HGB Canceled [facility] Comment on above: Order Comment: TEST CBC WAS CANCELLED, 12/01/2020 18:56 NO SPECIMEN RECEIVED IN LAB. Performed By: #### C BC #### [facility] [address] [place] [address] MCHC Canceled [facility] Comment on above: Order Comment: TEST CBC WAS CANCELLED, 12/01/2020 18:56 NO SPECIMEN RECEIVED IN LAB. Performed By: #### C BC #### [facility] [address] [place] [address] MCV Canceled [facility] Comment on above: Order Comment: TEST CBC WAS CANCELLED, 12/01/2020 18:56 NO SPECIMEN RECEIVED IN LAB. Performed By: #### C BC #### [facility] [address] [place] [address] NUCLEATED RBC Canceled Normal [facility] Comment on above: Order Comment: TEST CBC WAS CANCELLED, 12/01/2020 18:56 NO SPECIMEN RECEIVED IN LAB. Performed By: #### C BC #### [facility] [address] [place] [address] PLT Canceled [facility] Comment on above: Order Comment: TEST CBC WAS CANCELLED, 12/01/2020 18:56 NO SPECIMEN RECEIVED IN LAB. Performed By: #### C BC #### [facility] [address] [place] [address] RBC Canceled [facility] Comment on above: Order Comment: TEST CBC WAS CANCELLED, 12/01/2020 18:56 NO SPECIMEN RECEIVED IN LAB. Performed By: #### C BC #### [facility] [address] [place] [address] RDW-CV Canceled [facility] Comment on above: Order Comment: TEST CBC WAS CANCELLED, 12/01/2020 18:56 NO SPECIMEN RECEIVED IN LAB. Performed By: #### C BC #### [facility] [address] [place] [address] WBC Canceled [facility] Comment on above: Order Comment: TEST CBC WAS CANCELLED, 12/01/2020 18:56 NO SPECIMEN RECEIVED IN LAB. Performed By: #### C BC #### [facility] [address] [place] [address] BASIC METABOLIC PANELon 11-17 ANION GAP Canceled [facility] Comment on above: Order Comment: TEST BASIC METABOLIC PANEL WAS CANCELLED, 11/29/2020 10:53 NO SPECIMENRECEIVED IN LAB. Performed By: #### B MP ####[id number] [place] [address] BICARBONATE Canceled [facility] Comment on above: Order Comment: TEST BASIC METABOLIC PANEL WAS CANCELLED, 11/29/2020 10:53 NO SPECIMENRECEIVED IN LAB. Performed By: #### B MP ####[id number] [place] [address] CALCIUM Canceled [facility] Comment on above: Order Comment: TEST BASIC METABOLIC PANEL WAS CANCELLED, 11/29/2020 10:53 NO SPECIMENRECEIVED IN LAB. Performed By: #### B MP ####[id number] [place] [address] CHLORIDE Canceled [facility] Comment on above: Order Comment: TEST BASIC METABOLIC PANEL WAS CANCELLED, 11/29/2020 10:53 NO SPECIMENRECEIVED IN LAB. Performed By: #### B MP ####[id number] [place] [address] CREATININE Canceled [facility] Comment on above: Order Comment: TEST BASIC METABOLIC PANEL WAS CANCELLED, 11/29/2020 10:53 NO SPECIMENRECEIVED IN LAB. Performed By: #### B MP ####[id number] [place] [address] GFR- AM. Canceled Normal [facility] Comment on above: Order Comment: TEST BASIC METABOLIC PANEL WAS CANCELLED, 11/29/2020 10:53 NO SPECIMENRECEIVED IN LAB. Result Comment: CALC ULATIONS OF ESTIMATED GFR ARE PERFORMED USING THE MDRD STUDY EQUATION FOR THE IDMS-TRACEABLE CREATININE METHODS. CLIN CHEM 2007;53:766-72 Performed By: #### B MP ####[id number] [place] [address] GFR-NON AM. Canceled Normal [facility] Comment on above: Order Comment: TEST BASIC METABOLIC PANEL WAS CANCELLED, 11/29/2020 10:53 NO SPECIMENRECEIVED IN LAB. Performed By: #### B MP ####[id number] [place] [address] GLUCOSE Canceled [facility] Comment on above: Order Comment: TEST BASIC METABOLIC PANEL WAS CANCELLED, 11/29/2020 10:53 NO SPECIMENRECEIVED IN LAB. Performed By: #### B MP ####[id number] [place] [address] POTASSIUM Canceled [facility] Comment on above: Order Comment: TEST BASIC METABOLIC PANEL WAS CANCELLED, 11/29/2020 10:53 NO SPECIMENRECEIVED IN LAB. Performed By: #### B MP ####[id number] [place] [address] SODIUM Canceled [facility] Comment on above: Order Comment: TEST BASIC METABOLIC PANEL WAS CANCELLED, 11/29/2020 10:53 NO SPECIMENRECEIVED IN LAB. Performed By: #### B MP ####[id number] [place] [address] UREA NITROGEN Canceled Normal [facility] Comment on above: Order Comment: TEST BASIC METABOLIC PANEL WAS CANCELLED, 11/29/2020 10:53 NO SPECIMENRECEIVED IN LAB. Performed By: #### B MP ####[id number] [place] [address] CBCon 11-29-2020 HCT Canceled [facility] Comment on above: Order Comment: TEST CBC WAS CANCELLED, 11/29/2020 10:53 NO SPECIMEN RECEIVED IN LAB. Performed By: #### C BC ####[id number] [place] [address] HGB Canceled [facility] Comment on above: Order Comment: TEST CBC WAS CANCELLED, 11/29/2020 10:53 NO SPECIMEN RECEIVED IN LAB. Performed By: #### C BC ####[id number] [place] [address] MCHC Canceled [facility] Comment on above: Order Comment: TEST CBC WAS CANCELLED, 11/29/2020 10:53 NO SPECIMEN RECEIVED IN LAB. Performed By: #### C BC ####[id number] [place] [address] MCV Canceled [facility] Comment on above: Order Comment: TEST CBC WAS CANCELLED, 11/29/2020 10:53 NO SPECIMEN RECEIVED IN LAB. Performed By: #### C BC ####[id number] [place] [address] NUCLEATED RBC Canceled Normal [facility] Comment on above: Order Comment: TEST CBC WAS CANCELLED, 11/29/2020 10:53 NO SPECIMEN RECEIVED IN LAB. Performed By: #### C BC ####[id number] [place] [address] PLT Canceled [facility] Comment on above: Order Comment: TEST CBC WAS CANCELLED, 11/29/2020 10:53 NO SPECIMEN RECEIVED IN LAB. Performed By: #### C BC ####[id number] [place] [address] RBC Canceled [facility] Comment on above: Order Comment: TEST CBC WAS CANCELLED, 11/29/2020 10:53 NO SPECIMEN RECEIVED IN LAB. Performed By: #### C BC ####[id number] [place] [address] RDW-CV Canceled [facility] Comment on above: Order Comment: TEST CBC WAS CANCELLED, 11/29/2020 10:53 NO SPECIMEN RECEIVED IN LAB. Performed By: #### C BC ####[id number] [place] [address] WBC Canceled [facility] Comment on above: Order Comment: TEST CBC WAS CANCELLED, 11/29/2020 10:53 NO SPECIMEN RECEIVED IN LAB. Performed By: #### C BC ####[id number] [place] [address] BASIC METABOLIC PANELon 11-17 Anion gap [Moles/Vol] 15 mmol/L Normal 10 - 20 [facility] Comment on above: Performed By: #### B MP #### [facility] [address] [place] [address] Calcium [Mass/Vol] 9.7 mg/dL Normal 8.6 - 10.6 [facility] Comment on above: Performed By: #### B MP #### [facility] [address] [place] [address] Chloride [Moles/Vol] 99 mmol/L Normal 98 - 107 [facility] Comment on above: Performed By: #### B MP #### [facility] [address] [place] [address] Creatinine [Mass/Vol] 0.81 mg/dL Normal 0.50 - 1.30 [facility] Comment on above: Performed By: #### B MP #### [facility] [address] [place] [address] GFR- AM. >60 Normal >60 [facility] Comment on above: Result Comment: CALC ULATIONS OF ESTIMATED GFR ARE PERFORMED USING THE MDRD STUDY EQUATION FOR THE IDMS-TRACEABLE CREATININE METHODS. CLIN CHEM 2007;53:766-72 Performed By: #### B MP #### [facility] [address] [place] [address] GFR-NON AM. >60 Normal >60 [facility] Comment on above: Performed By: #### B MP #### [facility] [address] [place] [address] Glucose [Mass/Vol] 188 mg/dL High 74 - 99 [facility] Comment on above: Performed By: #### B MP #### [facility] [address] [place] [address] HCO3 (Bld) [Moles/Vol] 26 mmol/L Normal 21 - 32 [facility] Comment on above: Performed By: #### B MP #### [facility] [address] [place] [address] Potassium [Moles/Vol] 5.1 mmol/L Normal 3.5 - 5.3 [facility] Comment on above: Performed By: #### B MP #### [facility] [address] [place] [address] Sodium [Moles/Vol] 135 mmol/L Low 136 - 145 [facility] Comment on above: Performed By: #### B MP #### [facility] [address] [place] [address] Urea nitrogen [Mass/Vol] 16 mg/dL Normal 6 - 23 [facility] Comment on above: Performed By: #### B MP #### [facility] [address] [place] [address] CBCon 11-27-2020 Erythrocyte distribution width (RBC) [Ratio] 12.8 % Normal 11.5 - 14.5 [facility] Comment on above: Performed By: #### C BC #### [facility] [address] [place] [address] Hematocrit (Bld) [Volume fraction] 43.9 % Normal 41.0 - 52.0 [facility] Comment on above: Performed By: #### C BC #### [facility] [address] [place] [address] Hemoglobin (Bld) [Mass/Vol] 14.2 g/dL Normal 13.5 - 17.5 [facility] Comment on above: Performed By: #### C BC #### [facility] [address] [place] [address] MCHC (RBC) [Mass/Vol] 32.3 g/dL Normal 32.0 - 36.0 [facility] Comment on above: Performed By: #### C BC #### [facility] [address] [place] [address] MCV (RBC) [Entitic vol] 94 fL Normal 80 - 100 [facility] Comment on above: Performed By: #### C BC #### [facility] [address] [place] [address] NUCLEATED RBC 0.0 /100 WBC Normal 0.0-0.0 [facility] Comment on above: Performed By: #### C BC #### [facility] [address] [place] [address] Platelets (Bld) [#/Vol] 237 10*3/uL Normal 150 - 450 [facility] Comment on above: Performed By: #### C BC #### [facility] [address] [place] [address] RBC 4.65 x10E12/L Normal 4.50 - 5.90 [facility] Comment on above: Performed By: #### C BC #### [facility] [address] [place] [address] WBC (Bld) [#/Vol] 8.5 10*3/uL Normal 4.4 - 11.3 [facility] Comment on above: Performed By: #### C BC #### [facility] [address] [place] [address] Daily Progress Note-Balta law 11-27-2020 Daily Progress [...] advance as tolerated. Bowel regimen - dc METAL FORGER'S ASSISTANT, POPM starting POD1. Scheduled tylenol. Robaxin. Continue [...] Kevin Marshall MD, PGY-2 Orthopedic Spine Team [id number] Available on [employer] Orthopedic Spine Team Kevin Marshall, PGY-2 ([id number]) Amrit Long PGY-3 ([id number]) Lambert Suarez PGY-4 ([id number]) Please call patient monitor resident ([phone]) nights after 6pm and weekends Attestation: Note [...] Updated: 11-Dec-2020 15:25 by Bee Blackmon) [facility] Laboratory - Chemistry and C hemistry - challengeon 11-27-2020 Anion gap [Moles/Vol] 15 mmol/L 10 - 20 [facility] Work Phone: Calcium [Mass/Vol] 9.7 mg/dL 8.6 - 10.6 [facility] Work Phone: Chloride [Moles/Vol] 99 mmol/L 98 - 107 [facility] Work Phone: CO2 [Moles/Vol] 26 mmol/L 21 - 32 [facility] a[facility] Work Phone: Creatinine [Mass/Vol] 0.81 mg/dL See Below [facility] Work Phone: Comment on above: Reference Range: 0.5 0 - 1.30 Glucose [Mass/Vol] 188 mg/dL above high threshold 74 - 99 [facility] Work Phone: Potassium [Moles/Vol] 5.1 mmol/L 3.5 - 5.3 [facility] Work Phone: Sodium [Moles/Vol] 135 mmol/L below low threshold 136 - 145 [facility] Work Phone: Urea nitrogen [Mass/Vol] 16 mg/dL 6 - 23 [facility] Work Phone: Laboratory - Hematology and Cell countson 11-27-2020 Erythrocyte distribution width (RBC) [Ratio] 12.8 % See Below [facility] Work Phone: Comment on above: Reference Range: 11. 5 - 14.5 Hematocrit (Bld) [Volume fraction] 43.9 % See Below [facility] Work Phone: Comment on above: Reference Range: 41. 0 - 52.0 Hemoglobin (Bld) [Mass/Vol] 14.2 g/dL See Below [facility] Work Phone: Comment on above: Reference Range: 13. 5 - 17.5 MCHC (RBC) [Mass/Vol] 32.3 g/dL See Below [facility] Work Phone: Comment on above: Reference Range: 32. 0 - 36.0 MCV (RBC) [Entitic vol] 94 fL 80 - 100 [facility] Work Phone: Platelets (Bld) [#/Vol] 237 10*3/uL 150 - 450 [facility] Work Phone: [phone] RBC (Bld) [#/Vol] 4.65 {x10E12/L} See Below [facility] Work Phone: Comment on above: Reference Range: 4.5 0 - 5.90 WBC (Bld) [#/Vol] 8.5 10*3/uL 4.4 - 11.3 [facility] Work Phone: No Panel Informationon 11-27 >60 >60 [facility] Work Phone: Comment on above: CALCULATIONS OF LUCHO MATED GFR ARE PERFORMED USING THE MDRD STUDY EQUATION FOR THE IDMS-TRACEABLE CREATININE METHODS. CLIN CHEM 2007;53:766-72 0.0 {/100_WBC} 0.0-0.0 [facility] Work Phone: Daily Progress Note-Orthopae thanh 11-26-2020 [...] diet, advance as tolerated. Bowel regimen - METAL FORGER'S ASSISTANT, will attempt to wean POD#1. Scheduled tylenol. [...] Lambert Suarez MD Orthopedic Surgery PGY-4 Pager: [phone] Please page consult resident ([phone]) from 6pm-8am and on weekends. Attestation: Note [...] the note. I personally evaluated the patient [id number] Electronic Signatures: Bee Blackmon) (Signed 11-Dec-2020 15:23) Authored: Note Completion Co-Signer: Service, Subjective Data, Objective Data, Assessment and Plan, Note Completion Lambert Suarez (Resident)) (Signed 26-Nov-2020 14:32) Authored: Service, Subjective Data, Objective Data, Assessment and Plan, Note Completion Last Updated: 11-Dec-2020 15:23 by Bee Blackmon) [facility] Discharge [id number] Discharge Profile2 Discharge Orders: Significant Events: [...] Medication Reconciliation and Orders Completedby Physician Reviewing Vignesh Suarez MD (Resident) at 26-Nov-2020 14:34:02 Appointments: Follow-Up Appointment 01: Physician/Dept/ServiceDr. Bee Blackmon/ Orthopaedic Surgery/ Spine Reason for ReferralPostoperative Follow-Up Appointment Scheduled Date/[id number] 11:15 [id number], Phone NumberOffice: ([facility] [place]) - [phone] CommentsPlease Call Tara Gonzalez RN at [phone] For Any Post-Op Questions Electronic Signatures: Tara Gonzalez (RN) (Signed 26-Nov-2020 13:51) Authored: Discharge Orders, Appointments, Gold Form - Rubber Flap Tuber Machine Operator Summary Bee Blackmon) (Signed 10-Dec-2020 17:40) Co-Signer: Discharge Orders, Hospital Course (Home Care/Gold Form), Provider FINAL REVIEW of Orders, Appointments, Gold Form - Rubber Flap Tuber Machine Operator Summary Lambert Suarez (Resident)) (Signed 26-Nov-2020 14:34) Entered: Hospital Course (Home Care/Gold Form), Provider FINAL REVIEW of Orders Authored: Discharge Orders, Hospital Course (Home Care/Gold Form), Provider FINAL REVIEW of Orders, Appointments, Gold Form - Rubber Flap Tuber Machine Operator Summary Last Updated: 10-Dec-2020 17:40 by Bee Blackmon) [facility] GLUCOSE-POCTon 11-26-2020 Glucose [Mass/Vol] 186 mg/dL High 74 - 99 [facility] Comment on above: Performed By: #### G BABS #### [facility] [address] [place] [address] Laboratory - Chemistry and C hemistry - challengeon 11-26-2020 Glucose [Mass/Vol] 186 mg/dL above high threshold 74 - 99 [facility] Work Phone: No Panel Informationon 11-26 Please click on the link to view the study images Normal [facility] Work Phone: [facility] [place] [address] Patient Name: RYAN. Taylor QUINN : 1965 Date of Service: 11/26/2020 [facility] Patient Type: I Surgeon: Bee Blackmon MD [...] [employer] Dec[employer] plate. SURGEON: Bee Blackmon MD DATA MANAGEMENT MANAGER(S): Lambert Suarez MD ANESTHESIA: General. CLINICAL NOTE [...] confirm retractor (more content not included)... [facility] Order Reconciliationon 11-26 Order Reconciliation Page 1 [...] days, th (more content not included)... [facility] Order Reconciliation Page 1 Admission Reconciliation Document Reconciliation Type: Admission from OR requested on behalf of Lambert Suarez (Resident) done by Lambert Suarez ( (Resident)) Admission from OR - Reconciliation: 26-Nov-2020 14:21 by: Lambert Suarez ( (Resident)) Home MedicationsEnteredLast Dose TakenReconciled with current Order Reconciliation Comment/ Additional Information DULoxetine 60 mg oral delayed release capsule 1 cap(s) orally once a day [id number] AM DULoxetine Delayed Release Capsule (CYMBALTA)DOSE = 60 mg Oral DailyDULoxetine 60 mg oral delayed release capsule continued as the inpatient order DULoxetine fenofibrate 48 mg oral tablet 1 tab(s) orally once a [id number]-Nov-2020 AM Reviewed and Held lisinopril 20 mg oral tablet 1 tab(s) orally once a [id number] AM Lisinopril Tablet (PRINIVIL, ZESTRIL)DOSE = 20 [...] orally once a day (in the evening) [id number] Reviewed and Held Additional Current Orders Albuterol [...] 15 minute(s)Clinician Notes: Charmaine-operative order ONLY [facility] Patient Profile - Preop v2on 11-26-2020 Patient Profile - Preop v2 Profile: Initial Info: How to be AddressedRyan Spoken Language PreferredEnglish Stated Reason for Admissionl3-4 cage Primary Contact Name and NumberRenee, Patient Belongingssee preop checklist Medications [facility]: Weight in kg129.7 kilogram(s) Weight in flb815.9 pound(s) Weight Methodactual (measured) Scale Typestanding Height [...] Learning Preferencesindividual instruction Cultural Considerationsnone Developmental Considerationsnone Tenriism Considerationsnone Other learner availableno Falls RiskPatient location auto qualifies him/her for HIGH RISK. Are there any cultural, spiritual, protestant practices/values/needs that are important for us to [...] IM suspension, 01-Jul-2020 Electronic Signatures: Pat Padilla (BENI) (Signed 26-Nov-2020 12:05) Authored: Initial Info, General Health, Health Mgmt, Relationship/Environ, Substance, Risk Screens, Additional Information Last Updated: 26-Nov-2020 12:05 by Pat Padilla (BENI) Normal [facility] Vital Signs Date Time Vital Sign Value Performing Clinician Facility 09-15-2023 10:11-0400 Body height 184.15 cm DO Kimi Abhisehk Work Phone: [facility] 09-15-2023 10:11-0400 Body mass index (BMI) [Ratio] 35.2 kg/m2 DO Kimi Weiss Work Phone: [facility] 09-15-2023 10:11-0400 Body weight 119.29 kg DO Kimi Weiss Work Phone: [facility] 09-07-2023 10:35-0400 Diastolic blood pressure 98 mm[Hg] DO Kimi Weiss Work Phone: [facility] 09-07-2023 10:35-0400 Heart rate 102 /min DO Kimi Abhishek Work Phone: [facility] 09-07-2023 10:35-0400 Respiratory rate 20 /min DO Kimi Abhishek Work Phone: [facility] 09-07-2023 10:35-0400 SaO2% (BldA) [Mass fraction] 96 % DO Kimi Weiss Work Phone: [facility] 09-07-2023 10:35-0400 Systolic blood pressure 160 mm[Hg] DO Kimi Weiss Work Phone: [facility] 09-07-2023 10:00-0400 Inhaled oxygen flow rate 3 L/min DO Kimi Weiss Work Phone: [facility] 09-07-2023 09:19-0400 Body height 182.88 cm DO Kimi Weiss Work Phone: [facility] 09-07-2023 09:19-0400 Body weight 120.2 kg DO Kimi Weiss Work Phone: [facility] 09-16-2021 14:17-0400 Body mass index (BMI) [Ratio] 34.45 kg/m2 Kimi Weiss Work Phone: AV-Alafpfl-Yfsqv [facility] Work Phone: 09-16-2021 14:17-0400 Body surface area Derived from formula 2.36 m2 Kimi Weiss Work Phone: NW-Bugypbo-Ymxtb [facility] [address] Work Phone: 09-16-2021 14:17-0400 Body weight 115.21 kg Kimi Weiss Work Phone: KF-Zljgsjg-Dwbdr [facility] Work Phone: 07-23-2021 09:45-0400 Body height 184.15 cm Charles Claros Other [employer] Other 07-23-2021 09:45-0400 Body mass index (BMI) [Ratio] 34.51 kg/m2 Charles Claros Other [employer] Other 07-23-2021 09:45-0400 Body weight 117.03 kg Charles Claros Other [employer] Other 06-18-2021 14:17-0500 Body mass index (BMI) [Ratio] 36.75 kg/m2 Kimi Weiss Work Phone: HX-Cgajdew-Aigly [facility] [address] Work Phone: 06-18-2021 14:17-0500 Body surface area Derived from formula 2.42 m2 Kimi Weiss Work Phone: HC-Exrxqjt-Tvylm [facility] [address] Work Phone: 06-18-2021 14:17-0500 Body weight 122.93 kg Kimi Weiss Work Phone: VV-Mmupoqs-Qxhyz [facility] [address] Work Phone: 04-23-2021 09:49-0500 Body height 182.88 cm Kimi Weiss Work Phone: NJ-Jazxwiv-Fsole [facility] [address] Work Phone: 04-23-2021 09:49-0500 Body mass index (BMI) [Ratio] 39.6 kg/m2 Kimi Weiss Work Phone: QA-Yuhqegg-Vywos [facility] [address] Work Phone: 04-23-2021 09:49-0500 Body surface area Derived from formula 2.5 m2 Kimi Weiss Work Phone: DM-Laxnmqa-Cuhza [facility] [address] Work Phone: 04-23-2021 09:49-0500 Body weight 132.45 kg Kimi Weiss Work Phone: IN-Qodbzsh-Rukvm [facility] [address] Work Phone: 04-02-2021 09:45-0500 Body height 184.15 cm Charles Claros Other [employer] Other 04-02-2021 09:45-0500 Body mass index (BMI) [Ratio] 35.44 kg/m2 Charles Claros Other [employer] Other 04-02-2021 09:45-0500 Body weight 120.2 kg Charles Claros Other [employer] Other Encounters Encounter Date Encounter Type Care Provider Facility Start: 01-17-2024 End: 01-17-2024 ambulatory BEE Phillip [facility] Start: 01-03-2024 End: 01-03-2024 ambulatory Kimi Weiss Facility:[facility] Start: 11-30-2023 End: 11-30-2023 ambulatory KARON MICHAEL Not Available Start: 09-15-2023 End: 09-15-2023 ambulatory Kimi Weiss Facility:[facility] Start: 09-15-2023 End: 09-15-2023 ambulatory DO Kimi Weiss Work Phone: [facility] Work Phone: Start: 09-15-2023 End: 09-15-2023 Patient encounter procedure DO Kimi Abhishek Work Phone: [facility] Work Phone: Start: 09-07-2023 End: 09-07-2023 ambulatory Charles Claros Facility:[facility] Start: 09-07-2023 Non-patient / Non-visit DO Kimi Abhishek Work Phone: [facility] Work Phone: Start: 09-07-2023 End: 09-07-2023 Admission to same day surgery center DO Kimi Abhishek Work Phone: [facility] Work Phone: Start: 09-07-2023 End: 09-07-2023 ambulatory DO Kimi Weiss Work Phone: [facility] Work Phone: Start: 08-16-[address] [facility] Start: 08-09-2023 End: 08-09-2023 ambulatory THALIA VIKA Not Available Start: 08-05-2023 End: 08-05-2023 ambulatory [facility] Work Phone: Start: 08-05-2023 End: 08-05-2023 Patient encounter procedure [facility] Work Phone: Start: 06-24-2023 End: 06-24-2023 ambulatory Kimi Weiss Facility: [facility] Start: 04-23-2023 End: 04-23-2023 ambulatory Kimi Weiss Facility: [facility] Start: 04-22-2023 End: 04-22-2023 ambulatory Charles Claros Other [employer] Other Start: 04-22-2023 Telephone encounter Charles [facility] [place] Start: 04-08-2023 ambulatory Kimi Weiss Facili ty: [facility] Start: 04-01-2023 End: 04-01-2023 ambulatory Charles Claros Other [employer] Other Start: 04-01-2023 Office outpatient visit 25 minutes Charles Claros [facility] [place] Start: 04-01-2023 Telephone encounter Charles Burnham [facility] Start: 03-29-2023 End: 03-29-2023 ambulatory Kimi Weiss Facility: [facility] Start: 02-26-2023 End: 02-26-2023 ambulatory Kimi Weiss Facility:[facility] Start: 01-21-2023 End: 01-21-2023 ambulatory Charles Claros Other [employer] Other Start: 01-21-2023 Office outpatient visit 25 minutes Charles Claros [facility] [place] Start: 01-21-2023 Telephone encounter Charles HOLT G [facility] Start: 10-06-2022 End: 10-06-2022 ambulatory Charles Claros Other [employer] Other Start: 10-06-2022 Office outpatient visit 25 minutes Charles Claros [facility] [place] Start: 10-06-2022 Telephone encounter Charles HOLT G [facility] Start: 07-23-2022 ambulatory Bee Blackmon Facility :[id number] Start: 06-01-2022 End: 06-01-2022 ambulatory Charles Claros Other [employer] Other Start: 06-01-2022 Office outpatient visit 25 minutes Charles Claros [facility] [place] Start: 06-01-2022 Telephone encounter Charles [facility] [place] Start: 05-13-2022 AUDIT Kimi Rasmussen on Work Phone: ZZ-Uwqivxcvbmuj-Ebysyazs Work Phone: Start: 05-12-[address] Kimi Weiss Facility:[id number] Start: 04-27-2022 Office outpatient visit 40 minutes Kimi Weiss Work Phone: IM-Epqofacvmfnj-Qrgdtnlx Work Phone: Start: 04-14-2022 End: 04-14-[address] DANIEL BENITEZ Facility:[facility]1 Start: 02-18-2022 End: 02-18-2022 ambulatory Charles Claros Other [employer] Other Start: 02-18-2022 Office outpatient visit 25 minutes Charles Claros [facility] [place] Start: 02-18-2022 Telephone encounter Charles HOLT G [facility] Start: 12-15-2021 End: 12-15-2021 ambulatory Charles Claros Other [employer] Other Start: 12-15-2021 Office outpatient visit 25 minutes Charles Claros [facility] [place] Start: 09-29-2021 Office outpatient ne w 30 minutes Kimi Weiss Work Phone: DW-Aihrvcyavnoo-Fpmjwubp Work Phone: Start: 09-16-2021 Office outpatient visit 25 minutes Kimi Weiss Work Phone: KL-Zlxkoil-Anenj [facility] [address] Work Phone: Start: 07-28-2021 Office outpatient visit 15 minutes Kimi Weiss Work Phone: ST-Wlzqrkibtcnz-Evawkzga Work Phone: Start: 07-23-2021 End: 07-23-2021 ambulatory Charles Brisenodelma Other [employer] Other Start: 07-23-2021 Office outpatient visit 25 minutes Charles Claros [facility] [place] Start: 06-18-2021 Office outpatient visit 25 minutes Kimi Weiss Work Phone: QD-Kdjwxsv-Kvjxa [facility] Work Phone: Start: 06-03-2021 PAYAM, Provider : Shobha Gomez, Status: Pen, Time: 8:30 AM Kimi Weiss Work Phone: DS-Goaapey-Sksil [facility] [address] Work Phone: Start: 06-02-2021 AUDIT Kimi Rasmussen on Work Phone: VI-Fkyanbg-Lqszs [facility] [address] Work Phone: Start: 04-23-2021 Current tobacco non-user cad cap copd pv dm Kiim Weiss Work Phone: LQ-Cogbwtq-Ulwef [facility] [address] Work Phone: Start: 04-02-2021 End: 04-02-2021 ambulatory Charles Claros Other [employer] Other Start: 04-02-2021 Office outpatient visit 25 minutes Charles Claros [facility] [place] Start: 03-10-2021 Office outpatient visit 15 minutes Kimi Weiss Work Phone: KG-Szqsdclxpunk-Opweqtlo Work Phone: Start: 02-05-2021 Office outpatient visit 25 minutes Charles Claros [facility] [place] Start: 12-09-2020 Postop follow up vis it related to original px Kimi Weiss Work Phone: PL-Uglgvmqbrulf-Jlzsrlqf Work Phone: Start: 11-26-2020 End: 11-27-2020 Evaluation and management of inpatient Bee Viramontes OR 33 Start: 10-31-2020 Phys/qhp telephone evaluation 21-30 min Referring Provider Unknown QU-Izccvuclxuum-Griuxj Work Phone: Procedures Date Procedure Procedure Detail Performing Clinician Start: 09-15-2023 X-ray of lumbar spin e, four views DO Kimi Weiss Work Phone: Start: 09-15-2023 Plain X-ray of right hip DO Kimi Weiss Work Phone: Start: 09-07-2023 Local anesthetic sac ral epidural block DO Kimi Weiss Work Phone: Start: 05-04-2022 Follow-up visit Plan of Treatment Date Care Activity Detail Author Start: 09-15-2023 X-ray of lumbar spin e, four views XR lumbar spine AP/LAT/FLX/EXT [facility] Start: 09-15-2023 XR Lumbar spine 4 Views [facility] Start: 09-15-2023 Plain X-ray of right hip XR hip RT min 2V(w/wo pelvis)* [facility] Start: 09-15-2023 XR Hip - right 2 Views [facility] Start: 09-07-2023 [facility] Start: 06-11-2022 EMG, Provider: NEUROLOI EMC01 EMG TEODORA,[id number], Status: Pen, Time: 10:30 AM EMG, Provider: NEURODIAG EMC01 EMG ARAIZA,[id number], Status: Pen, Time: 10:30 AM CJ-Vzjzuoidpuns-Tagciiv e Work Phone: Start: 05-04-2022 VIRARON, Provider : Marisol Husain, Status: Pen, Time: 8:45 AM YUSEFFUVNYDIA, Provider: Marisol Husain, Status: Pen, Time: 8:45 AM CW-Iqgmjsfsbimr-Olmerwq e Work Phone: Start: 01-13-2022 PAYAM, Provider : Marisol Husain, Status: Pen, Time: 2:15 PM VIRFUVHOME, Provider: Marisol Husain, Status: Pen, Time: 2:15 PM KM-Ordmyrmwivjc-Qglyywp e Work Phone: Start: 09-29-2021 FUV, Provider: Bee Blackmon, Status: Pen, Time: 11:30 AM FUV, Provider: Bee Blackmon, Status: Pen, Time: 11:30 AM PZ-Crvgoth-Ztrpv [facility] [address] Work Phone: Start: 09-16-2021 VIRFUVHOME, Provider : Marisol Husain, Status: Pen, Time: 2:15 PM VIRFUVHOME, Provider: Marisol Husain, Status: Pen, Time: 2:15 PM PP-Ljpkylsyyrgs-Vmrwmxi e Work Phone: Start: 06-18-2021 VIRFUVHOME, Provider : Marisol Husain, Status: Pen, Time: 2:15 PM VIRFUVHOME, Provider: Marisol Husain, Status: Pen, Time: 2:15 PM CX-Sejpvno-Sievb [facility] [address] Work Phone: Start: 04-23-2021 NPV, Provider: Marisol Husain, Status: Pen, Time: 10:00 AM NPV, Provider: Marisol Husain, Status: Pen, Time: 10:00 AM [facility] Work Phone: Start: 03-10-2021 FUV, Provider: Bee Blackmon, Status: Pen, Time: 11:15 AM FUV, Provider: Bee Blackmon, Status: Pen, Time: 11:15 AM HD-Adftvwukiefz-Yyfhjvh e Work Phone: Start: 03-10-2021 Patient encounter procedure [facility] [place] Start: 12-16-2020 POV, Provider: Bee Blackmon, Status: Pen, Time: 11:15 AM POV, Provider: Bee Blackmon, Status: Pen, Time: 11:15 AM OX-Epauyjhcxmfe-Apdgqy Work Phone: Start: 11-26-2020 [facility], Provider: Bee Blackmon, Status: Pen, Time: 8:30 AM [facility], Provider: Bee Blackmon, Status: Pen, Time: 8:30 AM OR-Bizrbnnlogla-Atbcxm Work Phone: Patient Education Know your Meds Felter Non Diagnostic Block [facility] Work Phone: Patient referral [facility] Work Phone: Immunizations Immunization Date Immunization Notes Care Provider Fa fabianty 07-22-2020 Pfizer-BioNTech COVID-19 Vacc 30 MCG/0.3ML Intramuscular Suspension Referring Provider Unknown MX-Yzlpezegjpnh-Wvwmg a Work Phone: 07-01-2020 Pfizer-BioNTech COVID-19 Vacc 30 MCG/0.3ML Intramuscular Suspension Referring Provider Unknown RS-Cbgsjlzhhucd-Kcyvj a Work Phone: 01-27-2020 influenza, injectabl e, quadrivalent, preservative free Referring Provider Unknown CY-Hljaeqboncyq-Qwjwf a Work Phone: 02-13-2019 influenza, injectabl e, quadrivalent, contains preservative Referring Provider Unknown JZ-Kimsuuqhbhkv-Wjyrt a Work Phone: 02-21-2018 influenza, injectabl e, quadrivalent, preservative free Referring Provider Unknown VT-Dkvjwnykvbpf-Zycix a Work Phone: 01-30-2017 KENALOG - 10 mg Charles weaver Other [employer] Other 01-17-2014 influenza, seasonal, injectable Referring Provider Unknown TN-Gyxtffkuotrn-Jyjcp a Work Phone: Payers Date Payer Category Payer Self-pay [id number] 2023 Private Health Insurance [id number] 2022 Unknown [id number] 2.16.8 [id number] 1966 Unknown [id number] 2.16.8 40.1.331973.3.579.2.1069 1966 Unknown [id number] 2.16.84 0.1.486884.3.579.2.593 1966 Unknown [id number] 2.16.8 40.1.487998.3.579.2.1068 1966 Unknown [id number] 2.16.84 0.1.872606.3.579.2.1259 1966 Unknown [id number] 2.16.84 0.1.129364.3.579.2.1259 1966 Unknown [id number] 2.16.8 40.1.506988.3.579.2.1245 1966 Unknown [id number] 2.16.8 40.1.134754.3.579.2.718 1966 Unknown [id number] 2.16.8 40.1.705812.3.579.2.718 1966 Unknown [id number] 2.16.8 40.1.166003.3.579.2.718 1966 Unknown [id number] 2.16.8 40.1.613809.3.579.2.718 1966 Unknown [id number] 2.16.8 40.1.182128.3.579.2.718 1966 Unknown [id number] 2.16.8 40.1.892582.3.579.2.718 1966 Unknown [id number] 2.16.8 40.1.112191.3.579.2.718 1959 Unknown [id number] 2.16. 840.1.437947.19 Unknown Unknown [id number] 2.16. 840.1.622919.19 Unknown [id number] Unknown [id number] 2.16.8 40.1.612085.3.579.2.531 Unknown [id number] 2.16.8 40.1.255046.3.579.2.531 Social History Date Type Detail Facility [facility] Tobacco smoking consumption unknown [facility] Non-smoker Non-smoker IT-Kxhetvh-Vwbc a [facility] [address] Work Phone: Sex Assigned At Sex Assigned At Bir th [facility] [employer] Other Start: 02-29-2020 Tobacco smoking status NHIS Never smoked tobacco (finding) [facility] Start: 1965 Sex Assigned At Male F [facility] Goals Date Patient Goal Desired Activity /State Functional Status Date Assessment Result Facility Functional observable [facility] Mental Status Date Assessment Result Facility 11-26-2020 Cognitive functi ons [id number] [facility] Clinical Notes 03-10-2018 to 09-07-2023 Note Date & Type Note Facility 09-07-2023 Procedure note [facility] 08-04-2023 Note - From: Erica Espinoza ([facility] ([facility] To: Kimi Weiss DO; Sent: 07/30/2023 09:07:59 EDT Subject: FW: Medication Management Due Date/Time: 07/30/2023 17:37:00 EDT Caller Name: LYLY QUINN; Caller Number: , Lisinopril 30 mg was refilled last month on 06/24/23 for a 90 day supply with 3 refills. From: [facility] #[id number] To: Kimi Weiss DO Sent: July 29, 2023 4:37:37 PM CDT Subject: Medication Management Due: July 30, 2023 1:56:01 AM CDT On Hold Pending Signature Dispensed Drug: lisinopril (lisinopril 10 mg oral tablet), TAKE 1 TABLET BY MOUTH DAILY Quantity: 90 tab(s) Days Supply: 90 Refills: 0 Substitutions Allowed Notes from Pharmacy: From: Kimi Weiss DO To: [facility] #[id number] Sent: 08/04/2023 06:24:31 EDT Subject: FW: Medication Management Submitted: Complete:lisinopril (lisinopril 30 mg oral tablet) Signed by Kimi Weiss DO 08/04/2023 06:24:00 EDT Approved with modifications: lisinopril (LISINOPRIL 10MG TABLETS) TAKE 1 TABLET BY MOUTH DAILY Qty: 90 tab(s) Days Supply: 90 Refills: 3 Substitutions Allowed Route To Pharmacy - [facility] #[id number] [facility] 04-22-2023 Evaluation note Encounter Date Diagnosis Assessment Notes Apr, Lumbar back sprain (ICD-10 - S33.5XXA) [facility] Other 12-26-2023 Note From: Erica Espinoza ([facility] ([facility])) To: Kimi Weiss DO; Sent: 04/13/2023 07:27:37 EST Subject: FW: Medication Management Due Date/Time: 04/13/2023 09:59:00 EST Caller Name: LYLY QUINN; Caller Number: H , M From: [facility] #[id number] To: Kimi Weiss DO Sent: April 12, 2023 8:59:30 AM RAISIN WASHER Subject: Medication Management Due: April 13, 2023 12:11:03 AM RAISIN WASHER On Hold Pending Signature Dispensed Drug: fenofibrate [...] from Pharmacy: From: Kimi Weiss DO To: [facility] #[id number] Sent: 04/13/2023 07:31:17 EST Subject: FW: Medication Management Submitted: Complete:rivaroxaban (Xarelto 20 mg oral tablet) Signed by Kimi Weiss DO 04/13/2023 07:31:00 EST Submitted: Complete:fenofibrate (fenofibrate 48 mg oral tablet) Signed by Kimi Weiss DO 04/13/2023 07:31:00 EST Approved with modifications: fenofibrate (FENOFIBRATE 48MG TABLETS) TAKE 1 TABLET BY MOUTH DAILY Qty: 90 tab(s) Days Supply: 90 Refills: 3 Substitutions Allowed Route To [facility] #[id number] Approved with modifications: rivaroxaban (XARELTO 20MG TABLETS) TAKE 1 TABLET BY MOUTH DAILY Qty: 90 tab(s) Days Supply: 90 Refills: 3 Substitutions Allowed Route To [facility][id number] [id number] Evaluation note* Encounter Date Diagnosis Assessment Notes Treatment Notes Treatment Clinical Notes Mar, Chronic, continuous use of opioids (ICD-10 - F11.90) [facility] Other 12-14-2023 Evaluation note* Encounter Date Diagnosis [...] note writ ten by Lawanda Yuen RN, Iron C[employer]. Edited and approved by Dr. Charles Claros MD. [facility] Other 12-04-2023 Note From: Whitney Jordan RN ([facility] ([facility])) To: Kmii Weiss DO; Sent: 03/22/2023 07:31:53 EST Subject: FW: Medication Management Due Date/Time: 03/22/2023 03:27:00 EST Caller Name: LYLY QUINN; Caller Number: H , From: [facility] #[id number] To: Kimi Weiss DO Sent: March 21, 2023 2:27:00 AM RAISIN WASHER Subject: Medication Management Due: March 22, 2023 12:03:54 AM RAISIN WASHER On Hold Pending Signature Dispensed Drug: DULoxetine (DULoxetine 60 mg oral delayed release capsule), TAKE 1 CAPSULE BY MOUTHDAILY. DO NOT CRUSH OR CHEW Quantity: 90 cap(s) Days Supply: 90 Refills: 0 Substitutions Allowed Notes from Pharmacy: From: Kimi Weiss DO To: [facility] #[id number] Sent: 03/22/2023 07:32:42 EST Subject: FW: Medication Management Submitted: Complete:DULoxetine (DULoxetine 60 mg oral delayed release capsule) Signed by Kimi Weiss DO 03/22/2023 07:32:00 EST Approved with modifications: DULoxetine (DULOXETINE DR 60MG CAPSULES) TAKE 1 CAPSULE BY MOUTH DAILY. DO NOT CRUSH OR CHEW Qty: 90 cap(s) Days Supply: 90 Refills: 3 Substitutions Allowed Route To Pharmacy - [facility] #[id number][facility] [id number] Note From: Whitney Jordan ([facility] ([facility])) To: Kimi Weiss DO; Sent: 03/01/2023 07:45:18 EST Subject: FW: Medication Management Due Date/Time: 03/01/2023 12:45:00 EST Caller Name: LYLY QUINN; Caller Number: H , From: [facility] #[id number] To: Kimi Weiss DO Sent: February 26, 2023 11:45:13 AM RAISIN WASHER Subject: Medication Management Due: February 27, 2023 12:12:56 AM RAISIN WASHER On Hold Pending Signature Dispensed Drug: hydroCHLOROthiazide (hydroCHLOROthiazide 25 mg oral tablet), TAKE 1 TABLET BY MOUTHDAILY Quantity: 90 tab(s) Days Supply: 90 Refills: 0 Substitutions Allowed Notes from Pharmacy: Patient requests 90 days supply From: Kimi Weiss DO To: [facility] #[id number] Sent: 03/01/2023 07:46:00 EST Subject: FW: Medication Management Submitted: Complete:hydroCHLOROthiazide (hydroCHLOROthiazide 25 mg oral tablet) Signed by Kimi Weiss DO 03/01/2023 07:46:00 EST Approved with modifications: hydroCHLOROthiazide (HYDROCHLOROTHIAZIDE 25MG TABLETS) TAKE 1 TABLET BY MOUTH DAILY Qty: 90 tab(s) Days Supply: 90 Refills: 3 Substitutions Allowed Route To Pharmacy - [facility] #[id number] Note from Pharmacy: [facility] Evaluation note* Encounter Date Diagnosis Assessment [...] note writ ten by Doris Weiss LPN, Iron C[employer]. Edited and approved by Dr. Charles Claros MD. [facility] Other 10-05-2023 Evaluation note* Encounter Date Diagnosis Assessment Notes Treatment Notes Treatment Clinical Notes Jan, Lumbar back sprain (ICD-10 - S33.5XXA) [facility] Other 06-20-2023 Evaluation note* Encounter Date Diagnosis [...] to patients condition. Saliva sample performed through [facility] today, will await confirmatory results. Sep, Other chronic pain (ICD-10 - G89.29) Sep, Other Above note writ ten by Doris Weiss LPN, Iron C[employer]. Edited and approved by Dr. Charles Claros MD. [facility] Other 06-20-2023 Evaluation note* Encounter Date Diagnosis Assessment Notes Treatment Notes Treatment Clinical Notes Sep, Lumbar back sprain (ICD-10 - S33.5XXA) [facility] Other 02-13-2023 Evaluation note* Encounter Date Diagnosis [...] note writ ten by Dutch Taylor MA, Iron C[employer]. Edited and approved by Dr. Charles Claros MD. [facility] Other 02-13-2023 Evaluation note* Encounter Date Diagnosis Assessment Notes Treatment Notes Treatment Clinical Notes May, Lumbar back sprain (ICD-10 - S33.5XXA) [facility] Other 11-02-2022 Evaluation note* Encounter Date Diagnosis [...] note writ ten by Doris Weiss LPN, Iron C[employer]. Edited and approved by Dr. Charles Claros MD. [employer] Other 11-02-2022 Evaluation note* Encounter Date Diagnosis Assessment Notes Treatment Notes Treatment Clinical Notes Feb, Lumbar back sprain (ICD-10 - S33.5XXA) [facility] Other 08-29-2022 Evaluation note* Encounter Date Diagnosis [...] note writ ten by Doris Weiss LPN, Iron C[employer]. Edited and approved by Dr. Charles Claros MD. [employer] Other 05-31-2022 Chief complaint Narrative - Reported* An interactive audio and video telecommunication system which permits real time communications between the patient (at the originating site) and provider (at the distant site) was utilized to providethis telehealth service. * Verbal consent was requested and obtained from LYLY QUINN on this date, 09/16/2021 02:15 PM , for atelehealth visit. FP-Vejrwqm-Aoibs [facility] [address] Work Phone: [phone] 497-753504-06-2022 Evaluation note* Encounter Date Diagnosis Assessment Notes [...] note writ ten by Dutch Taylor CMA, Iron Cutter. Edited and approved by Dr. Charles Claros MD. [place] [employer] Other 03-02-2022 Chief complaint Narrative - Reported* An interactive audio and video telecommunication system which permits real time communications between the patient (at the originating site) and provider (at the distant site) was utilized to providethis telehealth service. * Verbal consent was requested and obtained from LYLY QUINN on this date, 06/18/2021 02:15 PM , for atelehealth visit. [facility] [employer] [address] Work Phone: [phone]) 840-380201-05-2022 Chief complaint Narrative - Reported* An interactive audio and video telecommunication system which permits real time communications between the patient (at the originating site) and provider (at the distant site) was utilized to providethis telehealth service. * Verbal consent was requested and obtained from LYLY QUINN on this date, 04/23/2021 10:00 AM , for atelehealth visit. IQ-Nctuxvo-Wgkls [facility] Work Phone: [phone] 475-992101-05-2022 Chief complaint Narrative - Reported* An interactive audio and video telecommunication system which permits real time communications between the patient (at the originating site) and provider (at the distant site) was utilized to providethis telehealth service. * Verbal consent was requested and obtained from LYLY QUINN on this date, 04/23/2021 10:00 AM , for atelehealth visit. AB-Vsgpheehbtrwqiql-Vfyft Shefali MIRZASheree Work Phone: 1(487) 497-813412-15-2021 Evaluation note* Encounter Date Diagnosis Assessment Notes [...] note writ ten by Lawanda Yuen CMA, Iron [employer]. Edited and approved by Dr. Charles Claros MD. [employer] Other 10-20-2021 Evaluation note* Encounter Date Diagnosis [...] note writ ten by Dutch Taylor MA, Iron C[employer]. Edited and approved by Dr. Charles Claros MD. [employer] Other 08-10-2021 NoteSend Summary: Discharge Summary Providers: Provider RoleProvider Name PrimaryKmii Weiss Zachary Note Recipients: Bee Blackmon MD Jackson, Steven P, - [phone] [] Discharge: Summary: Admission Date: .26-Nov-2020 10:44:00 [...] visit. Immunizations: Immunizations: 19-Nov-2020 SARS-CoV-2 (COVID-19): Immunizations, [facility] [employer] COVID-19 Vacc 30 mcg/0.3ml IM suspension, 01-Jul-2020 [...] Follow-Up Appointment Scheduled Date/Time: 09-Dec-2020 11:15 Location: [address] [place] [address] [address]ICE [address], Phone Number: Office: Sec. [place]) - [phone] Discharge Medications: Home Medication lisinopril 20 mg [...] Dx: acute post-operative pain (more content not included)...[facility]08-10-2021 NotePost Operative Note: PreOp Diagnosis: lumbar stenosis with radiculopathy Post-Procedure Diagnosis: same as preop Procedure: 1. L3-4 XLIF 2. 3. 4. 5. Surgeon: Neymar Resident/Fellow/Other Vocational Training Teacher: Daniela Anesthesia: GETA Estimated Blood Loss (mL): [...] Completion Last Updated: 10-Dec-2020 17:38 by Bee Blackmon)[facility]08-10-2021 NotePreop Checklist: Preop Checklist: Procedure TypeL3-4 lateral lumbar fusion with instrumentation Temperature C36.4 degrees C Temperature F97.5 degrees F Heart Rate92 beats per minute Respiratory Rate16 breath per minute Blood Pressure Nizdbvqt069 mm/Hg Blood Pressure Ypmkjsftj30 mm/Hg NPO [id number] 22:00 ID Band Onyes Allergy Bandno known [...] Communication: Language / CommunicationEnglish Electronic Signatures: Pat Padilla (RN) (Signed 26-Nov-2020 12:09) Authored: Preop Checklist Last Updated: 26-Nov-2020 12:09 by Pat Padilla (RN)[facility]08-10-2021 NoteHistory & Physical Reviewed: I have reviewed [...] the note. I personally evaluated the patient [id number] Electronic Signatures: Bee Blackmon) (Signed 09-Dec-2020 19:41) Authored: Note Completion Co-Signer: History & Physical Reviewed, ERAS, Consent, Note Completion Kevin Marshall (Resident)) (Signed 26-Nov-2020 05:52) Authored: History & Physical Reviewed, ERAS, Consent, Note Completion Last Updated: 09-Dec-2020 19:41 by Bee Blackmon)[facility]05-05-2021 Evaluation note* Lymphatic: No significant lymphadenopathyNeurological: A&Pp1Olaexwxtvlmihjkm: Soft, ntndCardiovascular: RRR by peripheral pulsesPsychological: Appropriate mood and behaviorRespiratory/Thorax: Breathing normally on RAHead/Neck: Neck supple, trachea midlineEyes: EOMI, clear scleraSkin: Warm and dry, no rashesMusculoskeletal: L1: SILTL2: SILT Hip flexors 5/5 Right; 5/5 LeftL3: SILT Knee extension 5/5 Right; 5/5 LeftL4: SILT Tib Ant. (Dorsiflexion) 5/5 Right; 5/5 LeftL5: SILT EHL 5/5 Right; 5/1YttmU1: SILT Planter flexion 5/5 Right; 5/5 LeftConstitutional: Awake/alert/oriented x3, no distress, alert and cooperative [facility]02-01-2020 History of Present illness Narrative* 55-year-old male [...] He was evaluated by another surgeon in [facility], they did recommend surgery however he has a history involving multiple DVTs and pulmonary embolism. After his last operation he was not bridged preoperatively on Lovenox, and he did not receive any anticoagulation until 2 weeks after surgery. Despite having an IVC filter in place he through another pulmonary embolism. He follows up with a animal ride manager in [place]. * He is otherwise in good health. [...] 26. I have reached out to his animal ride manager to confirm plans for perioperative anticoagulation. He is fully vaccinated for COVID-19. * This note was dictated using speech recognition software and was not corrected for spelling or grammatical errors. VZ-Zusbldhpyfiw-Hnfvna Work Phone: [phone]) 245-131202-01-2020 History of Present illness Narrative* 55-year-old male [...] He was evaluated by another surgeon in [facility], they did recommend surgery however he has a history involving multiple DVTs and pulmonary embolism. After his last operation he was not bridged preoperatively on Lovenox, and he did not receive any anticoagulation until 2 weeks after surgery. Despite having an IVC filter in place he through another pulmonary embolism. He follows up with a animal ride manager in [place]. * He is otherwise in good health. [...] 26. I have reached out to his animal ride manager to confirm plans for perioperative anticoagulation. He is fully vaccinated for COVID-19. * This note was dictated using speech recognition software and was not corrected for spelling or grammatical errors. [facility] Work Phone: 1(248) 321-493301-06-2019 History of Present illness Narrative* Patient is [...] not corrected for spelling or grammatical errors. [facility] Work Phone: 1(773) 743-698812-18-2018 History of Present illness Narrative* Patient is [...] not corrected for spelling or grammatical errors. [facility] Work Phone: 1(354) 850-953311-22-2018 History of Present illness Narrative* Patient is [...] not corrected for spelling or grammatical errors. KE-Usaiofaltsqh-Rnwattii Work Phone: Evaluation note* Diagnosis Onset Date Resolution Status Chronic pain acute Chronic, continuous use of opioids acute Other spondylosis with radiculopathy, lumbar region [facility] Work Phone: Evaluation note* Diagnosis Onset Date Resolution Status Chronic pain acute Chronic, continuous use of opioids acute Other spondylosis with radiculopathy, lumbar region acute Chronic pain acute Chronic, continuous use of opioids acute Other spondylosis with radiculopathy, lumbar region acute [facility] Work Phone: History general Narrative - Reported* [...] arthroscopy Surgical History Bilateral inguinal hernias repa kevend w/ AVV 06/06/2015 Surgical History LEFT knee arthroscopy x's 3 (un sure of dr) Hospitalization History pulmonary embolism 2 [employer] Other History of Present illness Narrative* Patient [...] not corrected for spelling or grammatical errors XW-Ueyaclbrzqug-Fluwpxkp Work Phone: History of Present illness Narrative* [...] * Lives with: Spouse * 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[employer] * Sleep patterns: 8hrs YANNI on CPAP * Alcohol: 1-2 on the weekends * Tobacco: None * Recreational Drugs: None * Exercise: Therapy for back 2 x weekly ZG-Nqoljbi-Tsydf MAC2 303 Work Phone: History of Present [...] and V8 * L - yogurt, granola (swedish yogurt, 1/4 cup granola), cream of corn 1 cup * Snack - pop corner 100 calorie bag * D - veggie burger with sri lankan cheese & onion (2 burgers) low calorie [...] * Lives with: Spouse * 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 * Continued topiramate as adjunct to diet/exercise last visit. 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 CN-Dzjtisjobeqp-Gkauxwfl Work Phone: History of Present illness Narrative* [...] is going to do this in the [facility], we will have them push the results to PACS. He shouldcall the office for the results of the MRI. * In the meantime I am going to put him on some prednisone. * I will speak with him after the MRI is complete. * This note was dictated using speech recognition software and was not corrected for spelling or grammatical errors. EI-Iaxbfvnavnci-Znsttywt Work Phone: Hospital Discharge instructions* Activity:activity with [...] DRAINING, THEN YOU CAN LEAVE THE DRSG. OFFCleanse With: soap and water, ONCE THE [...] Follow-Up AppointmentScheduled Date/Time: 09-Dec-2020 11:15Location: [address], Phone Number: Office: ([place], Sec.) - [phone]: Please Call Tara Gonzalez RN at [phone] For Any Post-Op Questions [facility] for referral (narrative)* Reason for Referral: L3-4 fusion [facility] Chief Complaint * A telephone visit (audio [...] section and content) DATE CREATED AUTHOR 09/29/2021 [facility] DATE CREATED AUTHOR AUTHOR'S ORGANIZ ATION 05/01/2022 [facility] DATE CREATED AUTHOR AUTHOR'S ORGANIZ ATION 05/05/2022 [employer] DATE CREATED AUTHOR AUTHOR'S ORGANIZ ATION 05/16/2022 [facility] DATE CREATED AUTHOR AUTHOR'S ORGANIZ ATION 06/24/2022 [facility] DATE CREATED AUTHOR AUTHOR'S ORGANIZ ATION 07/28/2022 [facility] DATE CREATED AUTHOR AUTHOR'S ORGANIZ ATION 09/16/2023 [facility] DATE CREATED AUTHOR AUTHOR'S ORGANIZ ATION 12/01/2023 [facility] DATE CREATED AUTHOR AUTHOR'S ORGANIZ ATION 01/17/2024 [facility] DATE CREATED AUTHOR AUTHOR'S ORGANIZ ATION 02/07/2024 [facility] l REASON FOR VISIT (unrecogniz ed section and [...] BE BASED ON THE PRIMARY CLINICAL RECORDS. [facility] [employer] provides no warranty or guarantee of the accuracy or completeness of information in this document.
[2024-02-07 08:53] LABS: Estimated Average Glucose 312 mg/dL; Glycohemoglobin A1C 12.5 % (4.5-6.2)
== END 2024-02-07 06:35 | disposition home or self-care (01) ==
LOC: LAB 06:36
PROVIDERS: PCP Family Medicine; Visit Provider Family Medicine
DX: R73.09 Other abnormal glucose (principal)
CPT/HCPCS: 36415; 83036

== ENCOUNTER 2024-04-02 08:22 | Emergency (ER) | payer OTHER, SELFPAY ==
[2024-04-02] VITALS (17 sets, daily range): BP systolic 111–148; BP diastolic 82–100; PULSE 97–108; TEMP 36.4; O2SAT 95–100; BMI 35.3
--- OUTSIDE RECORDS SUMMARY | 2024-04-02 08:44 | XMS_ITS | CCD ---
Author Organization [facility] Care Team Providers Care Repair Armature Winder Name Role Phone Unknown, Referring Provider Unavailable [...] Claros Admitting Unavailable Charles Claros Attending Unavailable BEE BLACKMON Attending Unavailable KIMI WEISS Primary Care UnavailKimi Webber MD Primary Care Provider Kimi Weiss Primary Care Unavailable Kimi Weiss Attending Unavailable Kimi Weiss Admitting Unavailable Kimi Weiss Primary Care Unavailable MaxGeorgina blanc Admitting Unavailable Georgina Santana Attending Unavailable Kimi Weiss Primary Care Unavailable Kimi Weiss Referring Unavailable Kimi Weiss Attending Unavailable Kimi Weiss Primary Care Unavailable Kimi Weiss Attending Unavailable Kimi Weiss Primary Care Unavailable Kimi Weiss Attending Unavailable Kimi Weiss Primary Care Unavailable Kimi Weiss Attending Unavailable Kimi Weiss Attending Unavailable Kimi Weiss Primary Care Unavailable Kimi Weiss Referring Unavailable Kimi Weiss Primary Care Unavailable Kimi Weiss Attending Unavailable THALIA SANDY Attending Unavailable KARON RODRIGUEZ Attending Unavailable KARON RODRIGUEZ Attending Unavailable KARON RODRIGUEZ Referring Unavailable Allergies Allergy Classification Reported Allergen(s) Allergy Type Date of Onset Reaction(s) Facility (1 source) ALLERGIES NOT ON FILE; Translations: [ALLERGIES NOT ON FILE] Propensity to adverse reactions (disorder) [facility] [place] Medications Current Medications Medication Drug Class(es) Dates Sig (Normalized) Sig (Original) acetaminophen 300 mg / butalbital 50 mg / caffeine 40 mg oral capsule (13 sources) Barbiturate, Central Nervous System Stimulant, Methylxanthine Start: 04-06-2022 take 1 capsule by mouth every six hours as needed butalbital-aceta minophen-caffein e (Fioricet) 50-300-40 MG capsule Take 1 capsule by mouth every 6 (six) hours if needed 04/06/2022 Active Start: 04-08-2021 take 1 capsule by mo [facility] every four hours as needed for headache Thsjgsameu-VPHA-Qtlhpfkt 50-300-40 MG Oral Capsule TAKE 1 CAPSULE BY MOUTH EVERY 4 HOURS NEEDED FOR HEADACHE Quantity: 36 Refills: 0 Ordered: 08-Apr-2021 DO Start : 08-Apr-2021 Active acetaminophen 325 mg / HYDROcodone bitartrate 5 mg oral tablet (20 sources) Opioid Agonist Start: 04-01-2023 take 1 tablet by mouth twice daily as needed HYDROcodone-Acetaminophen 5-325 MG 1 tablet as needed Orally up to two times daily as needed for 30 days Mar, Active Start: 01-21-2023 take 1 tablet by azucena twice daily as needed HYDROcodone-Acetaminophen 5-325 MG [...] Start: 06-01-2022 take 1 tablet by azucena twice daily as needed HYDROcodone-Acetaminophen 5-325 MG 1 tab let as needed Orally up to two times daily as needed for 30 days 13 May, 2022 Active Start: 04-02-2021 take 1 tablet by [...] 15, 2019 12:03pm February 28, 2020 1:49pm HYDROcodone-acet aminophen ([place]) 5-325 MG tablet Take by mouth Active acetaminophen 325 mg / oxyCODONE hydrochloride 5 mg oral tablet (11 sources) Opioid Agonist Start: 08-05-2023 End: 08-06-2023 take 1 tablet by mouth twice daily Oxycodone-Acetaminophen Active 1 TAB PO Twice daily 60 30 August 06, 2023 Start: 07-09-2018 End: 06-13-2019 Oxycodone-Acetaminophen (Per cocet) 5-325 mg tablet Discontinued 1 TAB PO .Q12 14 July 09, 2018 June 13, 2019 11:45pm Blood Glucose Monitoring Suppl ([employer] Verio Flex System) w/Device kit (2 sources) Start: 03-20-2024 Blood Glucose Monitoring Suppl (OneTouch Verio Flex System) w/Device kit USE DIRECTED DAILY 03/20/2024 Active cyclobenzaprine hydrochloride 10 mg oral tablet (20 sources) Muscle Relaxant Start: 04-22-2023 take 1 tablet by mouth at bedtime cyclobenzaprine (Flexeril) 10 MG tablet Take 10 mg by mouth at bedtime 04/22/2023 Active Start: 02-28-2020 End: 03-05-2020 take 10 mg [...] Gonzalez Generic Substitution Allowed 1 ml galcanezumab-gnlm 100 m g/ml prefilled syringe (12 sources) Start: 03-27-2024 galcanezumab ( Emgality, 300 MG Dose,) 100 MG/ML prefilled syringe Indications: Chronic cluster headache, not intractable Inject 300 mg under the skin monthly during acute cluster period. Return to 120 mg dosing following exacerbation. 3.08 mL 3 03/27/2024 Active Start: 03-27-2024 galcanezumab ( Emgality, 300 MG Dose,) 100 MG/ML prefilled syringe Indications: Chronic cluster headache, not intractable Inject 300 mg under the skin monthly during acute cluster period. Return to 120 mg dosing following exacerbation. 3.08 mL 3 03/27/2024 Active Start: 01-27-2024 galcanezumab ( Emgality) 120 MG/ML auto-injector Indications: Chronic migraine without aura without status migrainosus, not intractable (CMS/HCC) INJECT 1 SYRINGE( 120 MG) UNDER THE SKIN ONCE EVERY MONTH 1 mL 2 01/27/2024 Active Start: 09-07-2023 inject 120 mg by sub cutaneous injection every month Galcanezumab-Gnlm (Emgality Pen) 120 [...] 28, 2017 12:00am August 05, 2023 9:05am lisinopril 20 MG tablet Indications: Hypertension Take 30 mg by mouth Daily Active Ozempic, 0.25 or 0.5 MG/DOSE, 2 MG/3ML solution pen-injector (2 sources) Start: 02-24-2024 inject 0.25 mg by subcutaneous injection every week Ozempic, 0.25 or 0.5 MG/DOSE, 2 MG/3ML solution pen-injector INJECT 0.25 MG UNDER THE SKIN EVERY WEEK . ROTATE INJECTION SITES. 02/24/2024 Active rimegepant 75 mg disintegrating oral tablet (3 sources) Start: 03-20-2024 Rimegepant Sul fate (Nurtec) 75 MG tablet dispersible Indications: Chronic migraine without aura without status migrainosus, not intractable (CMS/HCC) DISSOLVE 1 TABLET ON THE TONGUE AT ONSET OF MIGRAINE 8 tablet 2 03/20/2024 Active sennosides, half-way 8.6 mg oral tablet (1 source) Start: [...] containing acetaminophen to prevent possible liver damage. carisoprodol 350 mg oral tablet (8 sources) [...] your doctor. fenofibrate 48 mg oral tablet (20 sources) Peroxisome Proliferator Receptor alpha Agonist Start: [...] cause serious breathing problems. polyethylene glycol 3350 [id number] mg powder for oral solution (3 sources) [...] mg oral tablet (6 sources) Start: 04-27-19 23 take 2 tablets by mouth once daily, [...] Start: 04-23-2021 take 2 tablets by mo [facility] twice daily Topiramate 25 MG Oral Tablet TAKE 2 TABLET Twice daily Quantity: 120 Refills: 2 Ordered: 02-Jun-2021 Lisha LEEN-GROUNDS AND NURSERY SPECIALIST, Marisol Start : 23-Apr-2021 Active Start: 04-23-2021 take [...] Quantity: 120 Refills: 2 Ordered: 23-Apr-2021 Lisha LEEN-GROUNDS AND NURSERY SPECIALIST, Marisol Start : 23-Apr-2021 Active Triamcinolone (13 sources) Corticosteroid Start: 01-30-2017 KENALOG - 10 m g Jan, 60 mg verapamil hydrochloride 120 mg extended release oral tablet (7 sources) Calcium Channel Urban Start: 06-10-2021 Verapa mil HCl ER 120 MG Oral Tablet Extended Release Quantity: 30 Refills: 0 Ordered: 10-Jun-2021 DO Start : 10-Jun-2021 Active Problems Active Problems Problem Classification Problem Date Documented Da te Episodic/Chronic Abdominal pain (19 sources) Abdominal pain; Translations: [Unspecified abdominal pain] 12-28-2017 Episodic Acquired foot deformities (5 sources) Foot-drop; Translations: [Other acquired deformities of ankle and foot] Onset: 3 Episodic Complications of surgical procedures or medical care (12 sources) Adverse reaction to substance; Translations: [Other specified complications of procedures not elsewhere classified] Episodic Conduction disorders (1 source) Unspecified right bundle-branch block; Translations: [UNSPECIFIED RT BUNDLE-BRANCH BLOCK] Onset: 2 Chronic Disorders of lipid metabolism (1 source) Hyperlipidemia, unspecified; Translations: [HYPERLIPIDEMIA UNSPECIFIED] Onset: 2 Chronic Esophageal disorders (15 sources) Gastroesophageal reflux disease; Translations: [Gastro-esophageal reflux disease without esophagitis] Chronic Essential hypertension (16 sources) Benign essential hypertension; Translations: [Benign essential hypertension] Onset: 2 08-08-2023 Chronic Headache; including migraine (11 sources) Chronic cluster headache; Translations: [Chronic cluster headache, not intractable] Onset: 4 08-08-2023 Chronic Joint disorders and dislocations; trauma-related (15 sources) Derangement of left knee; Translations: [Unspecified internal derangement of left knee] Chronic Nausea and vomiting (15 sources) Nausea; Translations: [Nausea] Episodic Nonspecific chest pain (3 sources) Chest pain, unspecified; Translations: [CHEST PAIN UNSPECIFIED] Onset: 2 Episodic Other acquired deformities (15 sources) Lumbar spondylolisthesis; Translations: [Spondylolisthesis, lumbar region] Episodic Other aftercare (1 source) Other assisted (current) drug therapy; Translations: [[employer] CURRENT DRUG THERAPY] Onset: 2 Episodic Other aftercare (1 source) half-way (current) use of anticoagulants; Translations: [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] Onset: 2 Episodic Other aftercare (4 sources) Long-term current use of anticoagulant; Translations: [half-way (current) use of anticoagulants] 02-28-2020 Episodic Other circulatory disease (4 sources) Inferior vena cava filter in situ; Translations: [Presence of other vascular implants and grafts] 06-13-2019 Chronic Other connective tissue disease (15 sources) Pain of right calf; Translations: [Pain in right lower leg] Episodic Other connective tissue disease (5 sources) Pain in right leg; Translations: [Right leg pain M79.604] Onset: 1 Resolved: 2 Episodic Other connective tissue disease (1 source) Arthrodesis status; Translations: [Arthrodesis status] Onset: 3 Episodic Other connective tissue disease (9 sources) [...] chronic pain; Translations: [Other chronic pain] Onset: 1 Resolved: 2 Chronic Other nervous system disorders (3 sources) Polyneuropathy; Translations: [Polyneuropathy, unspecified] Onset: 4 08-08-2023 Chronic Other nutritional; endocrine; and metabolic disorders (4 sources) Obesity; Translations: [Obesity, unspecified] Chronic Other nutritional; endocrine; and metabolic disorders (15 sources) Obese class II; Translations: [Body mass index (BMI) 35.0-35.9, adult] Chronic Phlebitis; thrombophlebitis and thromboembolism (5 sources) H/O: thrombosis; Translations: [Personal history of other venous thrombosis and embolism] Onset: 4 08-08-2023 Episodic Pulmonary heart disease (15 sources) Pulmonary embolism; Translations: [Other pulmonary embolism and infarction] Onset: 2 06-13-2019 Episodic Residual codes; unclassified (10 sources) [...] syndrome; Translations: [Postlaminectomy syndrome, lumbar region] Onset: 1 Resolved: 2 12-10-2020 Chronic Spondylosis; intervertebral disc disorders; other back problems (20 sources) Lumbar radiculopathy; Translations: [Thoracic or lumbosacral neuritis or radiculitis, unspecified] Onset: 3 11-26-2020 Episodic Sprains and strains (14 sources) Sprain of ligaments of lumbar spine, initial encounter; Translations: [Lumbar back sprain S33.5XXA] Onset: 1 Resolved: 2 Episodic Substance-related disorders (12 sources) Opioid use, [...] infection (1 source) COVID-19; Translations: [COVID-19] Onset: 2 Past or Other Problems Problem Classification Problem Date Documented Da te Episodic/Chronic Other nervous system disorders (3 sources) Paresthesia; Translations: [Paresthesia of skin] Onset: 08-08-2023 08-08-2023 Episodic Other nutritional; endocrine; and metabolic disorders (10 sources) Severe obesity; Translations: [Morbid obesity] Resolved: 09-16-2021 Chronic Results Test Name Value Interpretation Reference Range Facility Diabetes Noteon 03-21-2024 Diabetes Note Patient scheduled fo r RN class, patient reports not feeling well. Rescheduled for next class available: May 09, 2024. Follow-up scheduled for April was also rescheduled to May 30, 2024. Patient reminded of March 29, 2024 RD class. Verbalizes understanding. [Electronically Signed on: 03/21/2024 10:55 EST] Erica Quiroz RN CDE BSN [Verified on: 03/21/2024 10:55 EST] Erica Quiroz RN CDE BSN [facility] Coding Summaryon 03-13-2024 Coding Summary HTMLBase 64 MagjyyloRWt7vTf+PGhlYWQ+P K2ROIEsI85tlUTfoR5uY6CMVQ lOSywgQVBQTElOSyIgbmFtZT1 kaXNjZXJu IC8+PQ5cJYNsMwzxdFRmi3Y8z MM0O73dyh4nJFmcaYZ7GBZjWe Ctbcgsy7seeIm3GCipPbktXoK t UNWlyC38ECE3fD20Mc49bNFpe ZVqt4jpbIr5VqQwVOImXAV7qZ krRLevl5QiDQKkO45fbKWuc8A 6 FBVabQqmwMPsDdKbfGI6rM6vY Ivolrkqg7acagvnRal7gv08gD Gme0V6hDB5S4IjvfS3EUWosKR g NivpdSYUfT3njzgdj6pedqwdA xCuHVPdXOn6FLe5XOZjcXlpXh JnTV15SWM4YPRxwyOyF1DvCMJ s nVjiGsY9y7Y4Ln7PY7YQYpfyV 1VNTUFSWTwvdGQ+CU86oe25X7 ZnOxpcUff2NVYkRRX5xAX7dA2 n OYRjPVfso1D2aYB9M7TuftQhq x1tt6dfAMQvDWhhV37foHEiv8 A6LCFxvBX4OIHenBomVgLvcM5 3 Oyc+ANPcrXsbt2FgGrxpv0rik 3egqQf5FtbqPNUiyxGxpYdvCN E2v6PvMc1wYAAazJM4xLS6kB6 i AbYfPkB7MNnmY107RhRwjZBnS ubwJ18jS6SluMA+CIRnCuy6YW LaxRkkUT1eM3KdIEMahjotrRR m fNtlSW5qBVRfbylqKSXvkC4aZ GUlF0j3UsRqHkW6UEhhV3YnXY SrtjpkGy28rC1yUjFtElE0BQl u Q0SwmsO3QQAixUZaBRflACZ7Y 85gl6F7AXExYNKxLEU5hHI7eK 1hbGlnbjogbGVmdDsgdmVydGl j CGxpLOpmP906NRFcaRvkNhHuI GluZyBEYXRlOiAgMTEvMjUvMj AyNDwvdGQ+UDZrVDL6dDioICH n xCWcXCqkBl7pcRgutFdhOS4gB BJouphtLUPifJ1mPJSvrTJjkE ehZQ0yZDEpfwhqz109RzKnDHF 0 TQVbaNGuY8UnmV3aHqNkGRBsU ZNfM0OijFBhSNkvV506YVqoDg H2MBGqjcYwV4VsOJLceMgkGlG 0 j3Y9Ya7Nn6FyzwdbC2KksFDbF eIvFsibZGo4F7LeQeplzDS+PC 86AIZfQQ68GUt0NRB5vMcoNCm i BJQuK2RtkY7aLkUzQJOhMLUdG yc+PHRhYmxlIHdpZHRoPScxMD CvPiSapQajTL9pFl4zCEWbSZD v sTfxyNCiAkMrx5dzNSUcRKogS T8flDdeV3YeqNV0VOJux7s7Fy 11G60jQ7PoiXW+JGNqsOD9bKW 0 cX8nIcSePeE4RNnhT842NgGog SCeSxhxd1wme6okvYs0ElZ9OP WzlhFueGfnDLM2q3BdUq31T49 s IHdpZHRoPSIxNSUiIHZhbGlnb i8nhF2oVm8+GUPvbCD4jHQ4fJ 4hKqKlAtX9OGvdO824LbNziQO v Slagp1lea0rmkKv3TgNfYZHuj cPgoYfhAUS4w9RqUv03E1KubU vfj2YeDkb9lq96fFKoh9P3bBA 9 Z2MeYVQzyfiidPNydIrlWG3gZ UTivnzmSKZjmX7rDQVeB6w2Dn JrKoZ7OXjxV9YhgiG7YANyjEY g XENjvHKWnL0ccphzw5yysvduZ iXaYDEnCZg7PXh1FUDewCocTq SeXQH7RrH5BAV1hCEiiI9afIy n ripexX3pPsj+PIW0bOUwaYOEL R8iLwckdTE+SNIlDTX4aFzcJS xyBGEcxP1fSLTxN7i4LxRbKfG 1 FOoqR9RvqwH8TVCseJFzCRSdy XUQyB0hhqued3socanmSwKlED FcMDp4VJu5UNQtwZfoJzRxJQF 0 OsZ7PPK9sJVpxN3kbKaalukqg G9wOyc+LnqgmYmiJAC9LXk9V3 ReMgb0RCIilFutHT5roWLkHVw u Nz6kpFtbzXbuQE6iNQGizxhzj 088NmSyg3dsKSNhyODtJXzqAH H7C31xx7V8XGDpLLWeKPP1lGU 4 wP2scUienafxyCOkdPiwwyMfl ZexYIbkXFjdI276UIDpiEdhLg AbAIo4J1PxGks0YTZglYcdTV1 n xRPjOXuaBe7flVemcPykPB0fY JJebirnt750AxVrr2kkZWZjhZ RoQAwmKWJ3Q35qe7P9PXSfTTF w OWC0lKW2dN9yaQsroosyuMPkc YhrctBqzLivCEhwXHukQ677EB AsvDfyApRidCl0G5MpJdj1HUX z wLyvIB9nrDAxHNigHg8dhRfoh QmmUD5zVXVshpcmq246NkOcq9 rrAPZcxAEhCRgeYGR7K61wi8L 6 XMAoPATaXOQ1pPM2fV3sgWglu jogbGVmdDsgdmVydGljYWwtYW qqN199IPWglSxzCtUwnSjuawW g MVvoYZo1I1OsPlrqrMT+PC90Y EHrMN35cNLzgCFgl0lsrDz6Ia RwBOXgSZE7zKlkQVgxq3CvASV t W97hzYXsa5I0XXDobYousHVnU gDgaVB7zR2pQAijvqdtf2desc acRgclp3nfsu27iM57E12vHDw p BMArHJWoCHCwUQEtbHjdqm8lm G9wIi8+MUSchPK8lIZ4yL0wSW SkCxO2MZufE110CcWcqYHhPah j u8yse1piaYw2SgG7TYYkmjBtc ZekQTQ3c2FjCd25Z19fQYjwFW NyVINaVFAoGRNjpHpdyk2hbA1 w Ii8+YEUlqER0cYP6xE1eSnPsQ xA3VOiqZ845EnEkwOPuAjzxJ0 0aF2HcrVH+ZJYbEgr4WSCpqCu s FP4ekJEcZXzhVg6qSOW4VgElK eIqRIanD1YuXMRaidefrlwtbV B0VFVsOXRtkZ91Tx4owLyjWAR w xLYGkU6vutmcb4ltmdzmFoSeO AXlLTv1IMx4CHXwgThqWoFiWY F2EjO3EHC2uWNkyE9ujRpnbit g kQ2cF8AwKITebnuoGy21vB7wG dWwTjL3GBivTif+ZxoHE9CxWC NEMF1lW0lVEGlWIHecsMJ+PHR k VXO5nWrzYRekWKPisN5eUKQpV 3a3VaDvLwP6JNpzC5XePRVfky lwDs93kV3gGxSzAbT2CJnoR5T v lwO0LBWrxLBzATkcRPF9V96sg 8E1QRYtYHOpGCC3uAU3qV6pjP lnbjogbGVmdDsgdmVydGljYWw t GRirR460CSSiiGojKqKhRvZ5R dB7IwG7T8IuXcl8VOJwjKjsTX 7foQFjWLceSt2ovPlkbXfeFB9 w CFIlcdngOAJstH1jCQWhaNRtw JygJD1xLHWzpbgkb364HhReGO K1ZDGncPJhU4QooL3jRdZjBPA w IDGxI4GrwQXlEBzyC700NWdzM eX7WDEjioXpG0AlHCUjyRuuKc F3u1H0Yx27BqZHSOMqkijldOI + GAQxNVB4qAblHShyJCLltP7cP BJpT9j7SvKeBrX3MWakP0AiPL InzyvgNx03nA8vWuPmZnO0LFp u U9BhohB6LDUfiCWbNYiaTUT9A 73ku3X5ITRoLDOsLUU0wUR9mM 1hbGlnbjogbGVmdDsgdmVydGl j XTaeWEtzI941UTPxnFakDr1IE WP7F8XwSwl2RWYmgZlzCY5pmS UwZClcWp5ezOeqjEuoBY7mVTE p saixJGYjdY5aONTmmIWjwQxwO C0tBBOfvegoj194KcLwVFI5MU XaxSQjA8JwtW8gPtXvFRJjYYI w P8ImiATjDVacM635TKgxTsB6K KCjnvTyA3HzSPDxrMwjRgU7v2 E3Co9TOBR1vmOorkkwU0D3rZQ 0 aWVudDwvdGQ+HO35wt46Q1TeW wqwOoj1IGZaGDZ2wIX9kI4vCR InSCkts0Z3hWG9Z0GgnrRzqa0 j f1ovPVUeMIjbL15vnBUys3L5C GKybQX3AYXegArgHwYmwD87Rk c+VETwwSbck7VqMyeny1bdo5v k wLi9HsRcWPWnamMabNqyOPN6g 7McKv39J41jQIroKXSqTOMfAD UtHOLusWyynj4zpZ5fPm3+PGN v pPK1rJY1yI6nTdOlJxR6YWtiK 517RxLdrKQaLtcpt6kxu7yatT x2XoVbLHJdtyToyPzcHVK1n6K i Zg97O5CziMfkd2QzZmq1bz54t MBmp4W6yVN0U3KxKAZjxwyfqA BluJrxPQ4uYMIkfjjvLTAbcM9 n BAVyA5j2LiMjIyT1PSxiM3Jzh mV6RSZivKDaFDFqeOLGyG9zjr qmd9crqznsMwBoYKXmNPu3TAu 0 VZVonVqpRcQdKPW2HlU4ANQ0n RTfzA9mcGmxlnnlrN9iVjo+UG n6x9thgZRbKO8jzQN3HT65HK1 8 gUVxi9Z6hPT4T1FhEABytzazn imxgRM9ALSnRSRveL92Nt2xgB yeNn7cJGCjSBU9DZAoiJHsS4H v fC9mPtWaIZVkXUKnG7GajGEjH ZgwW205TXaeXlF2EDYrpdRtQ2 AmLRWhuVkdHeF1x5J2Rf0ABX8 6 NS69JN84bTWgq1R5xSU9Q4JfL OGjqskqsnumlVL2YVAoVBBjiR 53Mp0mqUnqAa6iIHIuNRZ5HRJ p mISdU0UaxB8bLpLqQWMgTHDiT 0PzwCFiTAptG021CJbqBlY5PL HewcYhB2UpXYLnlRjiGxY6j7F 7 Xt4HDc06WS25IP67vQVom0P7c HP2G2YdAUQughhusymplPN0DQ LzKDPsgU11Vs2hcFwySo1cOMX x ZQA8XBEgzZUbG9RsxE0bYkHwA ZJaOGZaL8AnuCQsZLjyO933TK raWcT9PPNjrtZeD6RrJGMflZz u XtN9l5T6Yz5YJTjqkwu4F5RkW jwvdHI+OD56EVOhPK69sBXjmZ Fhy4hzbZn3LtNkZSHnXIT7wWn l PSd (more content not included)... [facility] Provider Orderson 02-11-2024 Provider Orders [id number] [facility] - Other Lab [facility] - Other Lab Results [id number][facility] on 02-04-2024 Rad - Other Radiology Report [id number]#[facility] C[facility] Summaryon 09-23-2023 Coding Summary HTMLBase 64 DjfkqhjlEDr4qWw+PGhlYWQ+P G4NNZIfQ61uaHHtyJ7mN8MFCU lOSywgQVBQTElOSyIgbmFtZT1 kaXNjZXJu IC8+VS8oORHtAqxsdFHsl2C2v VV9E48gwg0gSHfozFD3VJXiSx Pxyawpe1yncKz6ZMnaKitxXwX t LMQuxO53WJF1dU46Gc52hJZud ACqg0npyPp1AcAsEFMrUYT8dK ieXCxcu9RzYXWoG39ztEDfx6K 6 WFEquNhhxCKmVcWsnDS1zG6zO Tccgvdlp6wqzmgoIws7td08xP Clu4T4sGZ1T6DhvaO0YQVwgTZ g GbsgnQKWhN4adxste5mweuetI aIrNLLpBCg8KPz4UBNvwZzzIz JpNY93OTI7GSUlnyUuA2BaFVL s uCrsCaV6a4C9Fo6WG2YTAlczB 1VNTUFSWTwvdGQ+RN18nl45M0 KeLkynFva3RGKoETU8qFZ9cR1 n YDFzTDrki7D1cXG5K1ZsosGve x3mh3wwECVsSIhxZ87ltULzl1 U5TXUndLD2UJJpuRndJiKrpF2 3 Oyc+SACvtDint6VfSrswe4rpo 3clrWk0RmvzCMSrhgAkgZgbJA J4m8UoNa8oEFGzyZZ6lVL1gN8 i VnJtFeB6NOmiO455CoLybFUmF zykB94eC6MvuSO+OVYhLsv6YM OdjCilUC8rD6YgHGZagbpmuIR m eSwkEY4lHLWhofahLZIlaM5pW ORxU8i6YzJxAeE5DLvsZ2SrZM RqjzkeHm42eX7oTfVpYlC3DYq u B7VltoO8WUGuhOOsICnjXBI4Y 00cq0R7CKSmGJMpQEV6gEX8kV 1hbGlnbjogbGVmdDsgdmVydGl j GQqyGFlaK532VXLziUeyLnPmT GluZyBEYXRlOiAgMDYvMDYvMj AyNDwvdGQ+NASnMWR8aBhhQDW n yQFvBYnoWb0ujMvpoJgnUF0yE FBzpaoiSWAwsL6fFTNiiQByjN nvYE4tREJwipzgs869AkCpJDT 0 ODJauMZdE3KamH2eUuCwALBzF LEeI4XjlSFsGUgtW399INzoEm L2LICnfzJsL5QsTZRddYmsZkQ 0 v9U3Bh5Fb9GnzrjeP9XtjIFeT pHuBrggZAa2T0ZxRdetnMG+PC 42AUCdWM65BTi8VYX1pPgqQMl i ODFjS6KssF5oDzUfKIWcNGGaG yc+PHRhYmxlIHdpZHRoPScxMD JaIfXsiGyjHW0iWt5cWNOoCME v aGvfwFUuLqRmo6ajKVJbBEkfV J3nqMiiZ3AnsVW1XNQkg2e0Am 81N52gS1NtmTT+SVUruGB6bDB 0 hH1tXcJlEqV3AEnqJ310NkEoe VBjJhopg2eqv3fxeVx8JfA4GW IflvCswUhhZKZ8p5JlTb33M81 s IHdpZHRoPSIxNSUiIHZhbGlnb b7apZ4qRk0+OVKizLY1uSH9fG 8gAmSaNiY1FBelS277DvLxsDT v Kownh6qpi1zlhLi0GhJwCJPsi jMixZmiTVL7h8RyHh23B7OcaD prg5YzSrs3yd17jLWwj2Z5eDI 9 Q6ZlUHCvgxeodWVnsDeyXE6aV MZftxtkBYXgqH4fJPNcZ3l9Hh DgFrY6TFuzH1KwzrQ0NELxuWV g XGWgfCRAgH8prkurp6ptpyjdH jSjDSKiQNo4QFt2PGDpqYpiRd PmPFQ0MkF4ANI8bROvvN1heMc n tsdpkO4hAuj+TBX9xTNmeQADY B2eKwhjwAF+UARfVRT7zBzyMQ adLHZrrM3zBKBiN0r0GuGhAtB 1 WWgqS6YswyF7CIUlqLOpFHIyo WZNaB9ewwenf4sociegSlIfNJ EyWRp6LHz6MIRtgSmaUkDsNNZ 0 VuG9BBK6yXWyuG5bfOiwgvvar G9wOyc+QcudtUhmLIS0LEe5D2 NxOht8MWXprDehAH7bjLMuFJd u Du7fsQdhaMtaGC4mANQiilggi 748GlHnp0ynUGHcgODkMZxoZG C1Y84gz9P4STDtYURaBSD1cUM 4 hH8isSfipoelnSDluUmvjlDad QxkUFycCPklO486ASZyfHwgOr UuHBr8W2ByQnd5PORusOqvVI2 n wNXbYBoyQa1uyDwadQntPD5kV WOxkfqhc671TpVgi1cfMMHyaT TnGUocOSJ6Q31mr9L2GSVhTWL w PVM2oMX3iV4hgPopgqozqLTds NsmdiOnvRxnIHoaEOhuF327SU DcgGxuRaJumWw6J8TgFhq1LWM z fWllLA6zlMGyJHqmJn5ipWlws WduUG4lAOLznqxmu191UaLlc3 yxBNYfrADfNZfzYLH6O23qm6L 6 MNKoUPOpUAT4yKC4aV4ixSpyz jogbGVmdDsgdmVydGljYWwtYW pnI800MYHisKpvNiPstMprcxU g JJeqKWe9T3XkFlmawHM+PC90Y JNiUA20gZImiUUva8tmfLk0Ks CfIPGnOXR2jAruVJpfd1OkELP t B89coOGmx3A5EJXckIjhmMCgG lGzlPE2gK5xMXlytirfx0pjjj dcQlpnn5zdve13dD28E91iGDv p IACiUCYrUBFdXLGxeLswjo2nl G9wIi8+RSZewUZ9wWW3fO5yDH OoTjH1VQutK739SiNmaXIxAou j w9xpf2ksyKs8HcE1AGGbinMnu SltYWQ8k8YwTv77U17aDIvlUO JoKAYsCUPlITEizRxwlg1fuG2 w Ii8+LOFwlYK5kRI2bA3rAsExW qK0ERhuM294OeYpaGGjMjwvE5 7dA0TbxJO+HXCaPvv3GCHheQv s AA0guFGtGCfqYg6oPLI7NzTdA nTvIUruA8McQZEucrmkrsolcG I7OALhWBHqbN06Hy5crUjzDGD w mFEMdS5ibnazb2oakirgUgXnZ WDpPCv4SUl9TXFqwVsvSpAaPY O3XlZ4IAW7kKUpyA2mmIwxsro g wS1wT1EzTFTlkewaBp11iW3jY vUjNcV6SIvoZnw+WftFT5LuHX FMIB2sHupjlPK+UNVjIYY5jVa l PFxsVNKkeD8aNZXlL0l9OoIvY cW4PNhzE4NoTHDpvspxNj50qN 7pKdCqVtW9TQorS2PufgO1YJN w lSNyFShrBQJ8G10ww7W1NKEwS NMyZWW7iCQ5kY6ftRuheenjsN XkvAqzjuTbrXlgGTimTWtqY54 6 FELoqVlgVcDzEkV0JwP9YhM3A 4TkGhs9GDBnsAppBV6lxVJvAI ewQn4ylZkpfWmaFR7iQZNuggg w BJRpuZ9jRMTujZAtkJdoYH8sK YSpgbucn892HqIdQJU7CISyeX AxA2YeaC7mCoAdNQBkTOIoG3M l zCTaICtkH490EDvxGuV8FGStm kRwU1XvFXEizGzkHaP0r1G5Fk 41NyBZZWFyczwvdGQ+PHRkIHN 0 aCvoLEcwBIPzuV1eRUXlK2k7F lBlEzR6HMxjG9BlARAxqnvuPw 90nE6pTxWwQxZ7MKvnL1YvouZ 6 RZAnnDGuTAxgOPB6Z66fq2I0J GIbALEqHSL5pFU9qV3wrPqwza ogbGVmdDsgdmVydGljYWwtYWx p R673PIYdcVyuXh7SQXB0A3EpY fm9ZEJdqAxsXL4leHPtZNzmLj 6ujMtrmZtzCK9oUMPvvmwxLAK k zM2aGPInyTWjlLmfLR6oYHYqe swyb909ZiUvNMJ5NNMgxJJmF9 XoaB2bSkTqEXUbPCXbD7LjmCK t ZYkrD192YYpzGjQ9XEAsmlKpK 3FlGJFccBvoKrA0t7R1Mh8NNY S2qtXjwwxlL2T7kWV8jUKgaRr v dGQ+QU48my32L4IkJkicCci1Y BPpOBD3yDA0jT2kKFDjKUcve3 R5aUQ9S1HoanQlgh6eq5sgFIT z CUpuK79ndZHqj2X2KPLaeEA0G CPiwJcyZjEnzW94Qye+PGNvbG tut4KdXvyiz8tsn6eoaNd1BcE w LTScpvRlgDgwMZL2q8SwRf42X 29sIHdpZHRoPSIzMCUiIHZhbG tjqf6ihZ7tRs8+PUIjnIO3xQZ 0 lT7sYiAqPaC4XDmcS018MqTfj EQcNjhzl0ltg5bivVo5PqQkPT SabbWkbWqyFVB9h7MdMj39C1J v kUqkn3EzIzz8zb21oSAjz8L7n RR1X5WaRMOwjnwdkUYhoHugFF 0mNJIpvtmbIVPfyH9uBMZyL9q 0 DsKxHyU4TZfmB8NbcpM7ATWuh ZAgWHFflBFZbL0psqwwu6clnq hvSqEpRREnZMw8XAo9GTUboPp u ZiXbJFL4MjP2DRR8hXPxbE0bg WdwosvdoP6dWvi+QMb3z8khbU SiPA0jsJS8UV80WF97dHUib3C 5 pGN1G8LrIDRkcztrhfyzvKS5D RRfSSQjuS48Ui9mpLltVu6rAG ThUFF5JFPlyXTkT5ZlmI5rIcA j QTLsNQKmJ5QjnHPkCNvdC653O SoqGqE2CNPaohRaW5CkWBBszC msFkO2c0Z6Qm2ILE06PH10KX9 8 aHIvj8F9yVT6Y7IaBXBlbvqxc zqaiIX5KUFgVQUpdH34Vb1qdQ baYn1oXDNtLVX1SJJauEIfG0G v lF3jEzZzQVEgQFGeK7AacXBlA DhaE783QCtaAuI6RVOaygSyM2 EbUSOamYmrIzC9g6U9Gs8JIp5 6 PS65MN48mVLpr0Z6pEM5C0EnD QLcrdeiyvwzgPR4NIAjGLTusB 44Cs0twPthBy3qVREnMRK2WOT p sKIgD9TvgB4sNaLyLKUqJFTaQ 1XrqUNzHXvmJ118ZQblLlX0WH DbciDlK3MgMSRkzLlbYfA1p2D 7 Yh8RBKciluw3G3BbOvsyxFD+P I35QLSsJN41dAEyaLJyd9ttfP y4OtOjAPDoSFK5xQkxGCnma4Z k ZXI (more content not included)... [facility] Outside Recordson 09-17-2023 Outside Records [id number] IFF [facility] XR hip RT min 2V(w/wo pelvis )*on 09-15-2023 XR hip RT min 2V(w/wo pelvis)* [facility] [address] [place] [address] XRay Report Signed Patient: Lyly Quinn MR#: [id number] : 1965 Acct:[id number] Age/Sex: 58 / M ADM Date: 09/15/23 Loc: [facility] [place] Room: Type: [facility] Attending Dr: Charles Claros MD Copies to: [...] M.D.09/15/2023 3:16 PM Dictation Location: [place] [address] Transcribed By: [facility] 09/15/23 1516 Dictated By: Terrence Basurto II, MD 09/15/231514 Signed By: 09/15/231515 Normal [facility] XR lumbar spine AP/LAT/FLX/E XTon 09-15-2023 XR lumbar spine AP/LAT/FLX/EXT [facility] [address] [employer] [place] [address] XRay Report Signed Patient: Lyly Quinn MR#: [id number] : 1965 Acct:[id number] Age/Sex: 58 / M ADM Date: 09/15/23 Loc: [facility] [place] Room: Type: [facility] Attending Dr: Charles Claros MD Copies to: [...] M.D.09/15/2023 3:19 PM Dictation Location: [place] [address] Transcribed By: [facility] [facility] 09/15/23 151 Dictated By: Terrence Basurto II, MD 09/15/231515 Signed By: 09/15/231518 Normal [facility] ED Note - Provideron 024 ED Note - Provider [id number]#1.00OTGT IFF [facility] Lab - Other Lab Resultson Lab - Other Lab Results [id number]#1.00OTGT IFF [facility] Outside Recordson 09-08-2023 Outside Records [id number]#1.00OTGTIF F [facility] Provider Orderson 08-26-2023 Provider Orders [id number]#1.00OTGT IFF [facility] Outside Recordson 08-09-2023 Outside Records [id number]#1.00OTGTIFF [facility] NR MRI L-SPINE WOon 05-12-19 23 NR MRI L-SPINE WO Patient Name: LYLY QUINN STUDY: MRI L-SPINE WO; 05/12/2022 8:35 am INDICATION: acute right foot drop, previous surgery, had MRI 2 weeks ago with insufficient metal reduction unable to assess junctional levels M96.1: Lumbar postlaminectomy syndrome M21.371: Right foot drop. COMPARISON: Outside hospital MRI L-spine dated 04/30/2022 ACCESSION NUMBER(S): [id number] ORDERING CLINICIAN: BEE BLACKMON TECHNIQUE: Sagittal T1, [...] Alvarado. Electronically signed by: DILMA VERA MD [facility] MRI Lumbar Spine w/oon 04-30 MRI [...] by Carlos Hayward on 05/01/2022 0917 Normal [facility] City Manager Established Visit (Orthopaed ic Surgery)on 04-27-2022 Established [...] is going to do this in the [facility], we will have them push the results [...] 01/07/2021 10:40:28 AM Current Meds Medication NameInstruction Frjovahgjq-IJAK-Thtrgbch 50-300-40 MG Oral CapsuleTAKE 1 CAPSULE BY [...] Apr 27 2022 10:06AM EST (Author) Normal [facility] CBC AUTO DIFFon 04-14-2022 BASO # 0.0 103/ul Normal 0.0-0.1 [facility] Comment on above: Performed By: #### C BC #### [facility] [address] [place] [address] Dr. Devonte Rivas Basophils/100 WBC (Bld) 0.4 % Normal 0.2-2.0 [facility] Comment on above: Performed By: #### C BC #### [facility] [address] [place] [address] Dr. Devonte Rivas EO # 0.1 103/ul Normal 0.0-0.7 [facility] Comment on above: Performed By: #### C BC #### [facility] [address] [place] [address] Dr. Devonte Rivas Eosinophils/100 WBC (Bld) 0.9 % Normal 0.9-7.0 [facility] Comment on above: Performed By: #### C BC #### [facility] [address] [place] [address] Dr. Devonte Rivas Erythrocyte distribution width (RBC) [Ratio] 12.4 % Normal 11.0-15.0 [facility] Comment on above: Performed By: #### C BC #### [facility] [address] [place] [address] Dr. Devonte Rivas Hematocrit (Bld) [Volume fraction] 42.4 % Normal 42.0-54.0 [facility] Comment on above: Performed By: #### C BC #### [facility] [address] [address] [address] Devonte Rivas Hemoglobin (Bld) [Mass/Vol] 14.8 g/dL Normal 14.0-18.0 [facility] Comment on above: Performed By: #### C BC #### [facility] [address] [place] [address] Dr. Devonte Rivas IG # 0.03 10e3/ul Normal 0.00-0.03 [facility] Comment on above: Performed By: #### C BC #### [facility] [address] [place] [address] Dr. Devonte Rivas IG % 0.6 % Critically high 0.0-0.5 [facility] Comment on above: Performed By: #### C BC #### [facility] [address] [place] [address] Dr. Devonte Rivas LYMPH # 1.7 103/ul Normal 1.2-3.8 [facility] Comment on above: Performed By: #### C BC #### [facility] [address] [place] [address] Dr. Devonte Rivas Lymphocytes/100 WBC (Bld) 31.6 % Normal 20.5-60.0 [facility] Comment on above: Performed By: #### C BC #### [facility] [address] [place] [address] Dr. Devonte Rivas MANUAL DIFF REQ NO Normal [facility] Comment on above: Performed By: #### C BC #### [facility] [address] [place] [address] Dr. Devonte Rivas MCH (RBC) [Entitic mass] 31.3 pg Normal 25.9-34.0 [facility] Comment on above: Performed By: #### C BC #### [facility] [address] [place] [address] Dr. Devonte Rivas MCHC (RBC) [Mass/Vol] 34.9 g/dL Normal 29.9-35.2 [facility] Comment on above: Performed By: #### C BC #### [facility] [address] [place] [address] Dr. Devonte Rivas MCV (RBC) [Entitic vol] 89.6 fL Normal 80.0-94.0 [facility] Comment on above: Performed By: #### C BC #### [facility] [address] [place] [address] Dr. Devonte Rivas MONO # 0.9 103/ul Critically high 0.3-0.8 [facility] Comment on above: Performed By: #### C BC #### [facility] [address] [place] [address] Dr. Devonte Rivas Monocytes/100 WBC (Bld) 15.6 % Critically high 1.7-12.0 [facility] Comment on above: Performed By: #### C BC #### [facility] [address] [place] [address] Dr. Devonte Rivas NEUT # 2.8 103/ul Normal 1.4-6.5 [facility] Comment on above: Performed By: #### C BC #### [facility] [address] [place] [address] Dr. Devonte Rivas Neutrophils/100 WBC (Bld) 50.9 % Normal 43.0-75.0 [facility] Comment on above: Performed By: #### C BC #### [facility] [address] [place] [address] Dr. Devonte Rivas Platelet mean volume (Bld) [Entitic vol] 9.4 fL Critically low 9.5-13.5 [facility] Comment on above: Performed By: #### C BC #### [facility] [address] [place] [address] Dr. Devonte Rivas PLT 194 103/ul Normal 150-450 [facility] Comment on above: Performed By: #### C BC #### [facility] [address] [place] [address] Dr. Devonte Rivas RBC 4.73 106/ul Normal 4.70-6.10 [facility] Comment on above: Performed By: #### C BC #### [facility] [address] [place] [address] Dr. Devonte Rivas WBC 5.4 103/ul Normal 4.0-11.0 [facility] Comment on above: Performed By: #### C BC #### [facility] [address] [place] [address] Dr. Devonte Rivas CTA CHEST WO W CONon 12-27-2 022 CTA CHEST WO W CON EXAMINATION: [...] DANIEL BENITEZ Date: 2022-04-14 10:29 Normal [facility] Covid-19 PCR (CVDTBH)on 03-20 SARS-CoV-2 (COVID-19) RNA LEATHA+probe Ql (Unsp spec) Detected Critically abnormal NOT DETECTED [facility] Comment on above: Result Comment: This test is not yet approved or cleared by the [place] FDA. When there are no FDA-approved or cleared tests available, and other criteria are met, FDA can make tests available under an emergency access mechanism called an Emergency Use Authorization (EUA). The EUA for this test is supported by the [place] of Health and Human Service's declaration that [...] longer be used). Performed By: #### C [facility] #### [facility] [address] [place] [address] Dr. Devonte Rivas INFLUENZA A AND B AGon 04-14 INFLUANEGH SEE BELOW Normal [facility] Comment on above: Result Comment: Nega tive for Flu A protein angiten. Infection due to Flu A cannot be ruled out. Flu A angiten in the sample may be below the detection limit of the test. Performed By: #### I NFLUAB #### [facility] [address] [place] [address] Dr. Devonte Rivas [facility] SEE BELOW Normal [facility] Comment on above: Result Comment: Nega tive for Flu B protein antigen. Infection due to Flu B cannot be ruled out. Flu B antigen in the sample may be below the detection limit of the test. Performed By: #### I NFLUAB #### [facility] [address] [place] [address] Dr. Devonte Rivas INFLUENZA A AG Negative Normal NEGATIVE SEE COMMENT [facility] Comment on above: Performed By: #### I NFLUAB #### [facility] [address] [place] [address] Dr. Devonte Rivas INFLUENZA B AG Negative Normal NEGATIVE SEE COMMENT [facility] Comment on above: Performed By: #### I NFLUAB #### [facility] [address] [place] [address] Dr. Devonte Rivas INTERNAL CONTROLS Within Normal Limits Normal Wi thin Normal Limits [facility] Comment on above: Performed By: #### I NFLUAB #### [facility] [address] [place] [address] Dr. Devonte Rivas PROF CHEM 8 (BAS METB)on Anion gap [Moles/Vol] 12.0 mmol/L Normal [facility] Comment on above: Performed By: #### H CECELIA, BMP #### [facility] [address] [place] [address] Dr. Devonte Rivas Calcium [Mass/Vol] 9.2 mg/dL Normal 8.5-10.1 [facility] Comment on above: Performed By: #### H CECELIA, BMP #### [facility] [address] [place] [address] Dr. Devonte Rivas Chloride [Moles/Vol] 100 mmol/L Normal 98-107 [facility] Comment on above: Performed By: #### H CECELIA, BMP #### [facility] [address] [place], [place] [address] Dr. Devonte Rivas CO2 [Moles/Vol] 26.2 mmol/L Normal 21.0-32.0 [facility] Comment on above: Performed By: #### H STROPN, BMP #### [facility] [address] [address] [address] Devonte Rivas Creatinine [Mass/Vol] 0.99 mg/dL Normal 0.70-1.30 [facility] Comment on above: Performed By: #### H STROPN, BMP #### [facility] [address] [address] [address] Devonte Rivas EGFR-AF TOGOLESE >60 Normal >=60 [facility] Comment on above: Performed By: #### H STROPN, BMP #### [facility] [address] [place] [address] Dr. Devonte Rivas EGFR-NON AF TOGOLESE >60 Normal >=60 [facility] Comment on above: Performed By: #### H STROPN, BMP #### [facility] [address] [place] [address] Dr. Devonte Rivas Glucose [Mass/Vol] 163 mg/dL Critically high 74-[address] [facility] Comment on above: Performed By: #### H STROPN, BMP #### [facility] [address] [place] [address] Dr. Devonte Rivas Potassium [Moles/Vol] 4.2 mmol/L Normal 3.5-5.1 [facility] Comment on above: Performed By: #### H STROPN, BMP #### [facility] [address] [place] [address] Dr. Devonte Rivas Sodium [Moles/Vol] 134 mmol/L Critically low 136-145 Th [facility] Comment on above: Performed By: #### H STROPN, BMP #### [facility] [address] [address] [address] Devonte Rivas Urea nitrogen [Mass/Vol] 11.0 mg/dL Normal 7.0-18.0 [facility] Comment on above: Performed By: #### H STROPN, BMP #### [facility] [address] [place], [place] [address] Dr. Devonte Rivas Urea nitrogen/Creatinine [Mass ratio] 11.1 mg/mg Normal [facility] Comment on above: Performed By: #### H LANA RAI #### [facility] [address] [address] [address] Devonte Rivas TROPONIN, HIGH SENSITIVITYon 04-14-2022 HSTROP <4.0 Normal 4.0-76.1 [facility] Comment on above: Result Comment: CUT- OFF POINTS HAVE BEEN ESTABLISHED BASED ON THE FOURTH UNIVERSAL DEFINITIONS OF MYOCARDIAL INFARCTION. THE UPPER REFERENCE LIMIT (URL) OF TROPONIN, DEFINED THE 99TH PERCENTILE OF cTnI DISTRIBUTION IN A REFERENCE POPULATION, HAS BEEN CONFIRMED THE DECISION THRESHOLD FOR WI DIAGNOSIS. Performed By: #### H LANA RAI #### [facility] [address] [address] [address] Devonte Rivas XR CHEST 1 Von 04-14-2022 XR CHEST 1 V EXAM: Chest x-ray HISTORY: . SHORTNESS OF BREATH . COMPARISON: 10/26/2010 TECHNIQUE: Frontal and lateral chest. FINDINGS: Heart and vascularity are unremarkable. Lungs are free of focal infiltrates. EKG leads overlie the chest. Impression: No acute heart or lung disease identified. Electronically authenticated by: DANIEL MALDONADO Date: 2022-04-14 09:12 Normal [facility] Established Visit (Orthopaed ic Surgery)on 09-29-2021 [...] 01/07/2021 10:40:28 AM Current Meds Medication NameInstruction Lxmbazbybx-RWUY-Dzyoehwn 50-300-40 MG Oral CapsuleTAKE 1 CAPSULE BY [...] Sep 29 2021 12:05PM EST (Author) Normal [facility] Office Visiton 09-16-2021 Follow-up visit Diagnoses/Problems Class 1 obesity with body mass index (BMI) of 34.0 to 34.9 in adult (278.00,V85.34) (E66.9,Z68.34) Inappropriate diet or eating habits (V69.1) (Z72.4) Orders Class 1 obesity with body mass index (BMI) of 34.0 to 34.9 in adult Comprehensive Metabolic Panel; Status:Active; Requested for:[id number]; Hemoglobin A1C; Status:Active; Requested for:16Sep2021; Insulin Level, [...] for weight loss may be 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 History of Present Illness 56 year old M presenting for weight management follow up. Continued topiramate as adjunct to diet/exercise last visit. 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 Normal [facility] MRI Lumbar Spine w/oon 09-05 MRI Lumbar [...] by Chandler Tomlinson on 09/08/[address] [facility] CT Abdomen/Pelvis w/ Contras ton 08-05-2021 CT [...] by Chandler Tomlinson on 08/06/2021 0906 Normal [facility] Specialist Established Visit (Orthopaed ic Surgery)on 07-28-2021 Established Visit (Orthopaedic Surgery) Diagnoses/Problems Assessed Lumbar postlaminectomy syndrome (722.83) (M96.1) Orders Lumbar postlaminectomy syndrome MRI L Spine without Contrast; Status:Hold For - Scheduling,Retrospective Authorization; Requested for:[id number]; Radiologist to Determine Optimal Study : Y Does the patient have a Cochlear Implant, Pacemaker, Defibrilator, Pacing Wire, Brain Aneurysm Clip, Implanted Nerve or Bone Graft Simulator, Implanted Breast Tissue Nut Sorter Operator, Glucose Monitor, or Neulasta Device? : No [...] 01/07/2021 10:40:28 AM Current Meds Medication NameInstruction Gkqvduinvg-NORR-Sjquknhg 50-300-40 MG Oral CapsuleTAKE 1 CAPSULE BY [...] Jul 28 2021 11:54AM EST (Author) Normal [employer] Office Visiton 06-18-2021 Follow-up visit Diagnoses/Problems Class [...] - continue to follow reduced kcal diet, 5073-6082 focus on protein at each meal, unprocessed [...] for weight loss may be short or assisted, but that if weight loss is not [...] coffee and V8 L - yogurt, granola (iraqi yogurt, 1/4 cup granola), cream of corn 1 cup Snack - pop corner 100 calorie bag D - veggie burger with uruguayan cheese AND onion (2 burgers) low calorie [...] Social Hx: Lives with: Spouse 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 Normal [facility] Nutrition-Adulton 05-06-2021 Nutrition-Adult Medical Diagnosis Assessed Class [...] fatty acids and low saturated fat content. [place], mackerel, albacore tuna, sardines, mills and franco [...] occasionally snack (more content not included)... Normal [facility] No Panel Informationon 04-23 3638 1 IP-Jwgficd-R arma MAC[address] Work Phone: [phone] VP-Rarsniq-O arma [address] Work Phone: [phone] FU-Yoiakaf-G arma [address] Work Phone: [phone] SS-Cjboksl-O arma [address] Work Phone: Comment on above: Age: 56Height: 73 in Sex: MLevel of Activity: Sedentary (little or no exercise)Weight: 292 lb 2138 1 NX-Hixybll-W arma [address] Work Phone: [phone] OF-Kjribaf-P arma [address] Work Phone: Tobacco Screening.on 022 Fall risk assessment a) No falls within the last year DK-Fnqrnky-M arma [address] Work Phone: Tobacco use status CPHS b) No VG-Ddueokj-E arma [address] Work Phone: Radiologyon 03-10-2021 XR Lumbar spine AP and Lateral Please click on the link to view the study images Normal [facility]-Orthopaed [employer] Work Phone: SPINE, LUMBOSACRAL; 2 OR 3 V IEWSon 03-10-2021 SPINE, LUMBOSACRAL; 2 OR 3 VIEWS Patient Name: LYLY QUINN STUDY: SPINE, LUMBOSACRAL; 2 OR 3 VIEWS; ; 03/10/2021 11:16 am INDICATION: pain M96.1: Lumbar postlaminectomy syndrome M48.062: Spinal stenosis of lumbar region with neurogenic claudication. COMPARISON: 12/09/2020. ACCESSION NUMBER(S): [id number] ORDERING CLINICIAN: BEE BLACKMON FINDINGS: Lumbosacral spine [...] Electronically signed by: JANET VILLARREAL MD Normal [facility] Radiologyon 12-09-2020 XR Lumbar spine AP and Lateral Please click on the link to view the study images Normal [facility]opa[facility] [employer] Work Phone: SPINE, LUMBOSACRAL; 2 OR 3 V IEWSon 12-09-2020 SPINE, LUMBOSACRAL; 2 OR 3 VIEWS Patient Name: LYLY QUINN STUDY: Lumbar Spine, 2 views. INDICATION: low back pain. COMPARISON: Outside hospital lumbar spine radiographs 08/29/2020 ACCESSION NUMBER(S): [id number] ORDERING CLINICIAN: BEE BLACKMON FINDINGS: Redemonstration of [...] Electronically signed by: WILLIAMS GUZMAN MD Normal [facility] BASIC METABOLIC PANELon 11-17 ANION GAP Canceled Normal [facility] Comment on above: Order Comment: TEST BASIC METABOLIC PANEL WAS CANCELLED, 12/01/2020 18:56 NO SPECIMEN RECEIVED IN LAB. Performed By: #### B MP #### [facility] [address] [place] [address] BICARBONATE Canceled Normal [facility] Comment on above: Order Comment: TEST BASIC METABOLIC PANEL WAS CANCELLED, 12/01/2020 18:56 NO SPECIMEN RECEIVED IN LAB. Performed By: #### B MP #### [facility] [address] [place] [address] CALCIUM Canceled Normal [facility] Comment on above: Order Comment: TEST BASIC METABOLIC PANEL WAS CANCELLED, 12/01/2020 18:56 NO SPECIMEN RECEIVED IN LAB. Performed By: #### B MP #### [facility] [address] [place] [address] CHLORIDE Canceled Normal [facility] Comment on above: Order Comment: TEST BASIC METABOLIC PANEL WAS CANCELLED, 12/01/2020 18:56 NO SPECIMEN RECEIVED IN LAB. Performed By: #### B MP #### [facility] [address] [place] [address] CREATININE Canceled Normal [facility] Comment on above: Order Comment: TEST BASIC METABOLIC PANEL WAS CANCELLED, 12/01/2020 18:56 NO SPECIMEN RECEIVED IN LAB. Performed By: #### B MP #### [facility] [address] [place] [address] GFR- AM. Canceled Normal [facility] Comment on above: Order Comment: TEST BASIC METABOLIC PANEL WAS CANCELLED, 12/01/2020 18:56 NO SPECIMEN RECEIVED IN LAB. Result Comment: CALC ULATIONS OF ESTIMATED GFR ARE PERFORMED USING THE MDRD STUDY EQUATION FOR THE IDMS-TRACEABLE CREATININE METHODS. CLIN CHEM 2007;53:766-72 Performed By: #### B MP #### [facility] [address] [place] [address] GFR-NON AM. Canceled Normal [facility] Comment on above: Order Comment: TEST BASIC METABOLIC PANEL WAS CANCELLED, 12/01/2020 18:56 NO SPECIMEN RECEIVED IN LAB. Performed By: #### B MP #### [facility] [address] [place] [address] GLUCOSE Canceled Normal [facility] Comment on above: Order Comment: TEST BASIC METABOLIC PANEL WAS CANCELLED, 12/01/2020 18:56 NO SPECIMEN RECEIVED IN LAB. Performed By: #### B MP #### [facility] [address] [place] [address] POTASSIUM Canceled Normal [facility] Comment on above: Order Comment: TEST BASIC METABOLIC PANEL WAS CANCELLED, 12/01/2020 18:56 NO SPECIMEN RECEIVED IN LAB. Performed By: #### B MP #### [facility] [address] [place] [address] SODIUM Canceled Normal [facility] Comment on above: Order Comment: TEST BASIC METABOLIC PANEL WAS CANCELLED, 12/01/2020 18:56 NO SPECIMEN RECEIVED IN LAB. Performed By: #### B MP #### [facility] [address] [place] [address] UREA NITROGEN Canceled Normal [facility] Comment on above: Order Comment: TEST BASIC METABOLIC PANEL WAS CANCELLED, 12/01/2020 18:56 NO SPECIMEN RECEIVED IN LAB. Performed By: #### B MP #### [facility] [address] [place] [address] CBCon 12-01-2020 HCT Canceled Normal [facility] Comment on above: Order Comment: TEST CBC WAS CANCELLED, 12/01/2020 18:56 NO SPECIMEN RECEIVED IN LAB. Performed By: #### C BC #### [facility] [address] [place] [address] HGB Canceled Normal [facility] Comment on above: Order Comment: TEST CBC WAS CANCELLED, 12/01/2020 18:56 NO SPECIMEN RECEIVED IN LAB. Performed By: #### C BC #### [facility] [address] [place] [address] MCHC Canceled Normal [facility] Comment on above: Order Comment: TEST CBC WAS CANCELLED, 12/01/2020 18:56 NO SPECIMEN RECEIVED IN LAB. Performed By: #### C BC #### [facility] [address] [place] [address] MCV Canceled Normal [facility] Comment on above: Order Comment: TEST CBC WAS CANCELLED, 12/01/2020 18:56 NO SPECIMEN RECEIVED IN LAB. Performed By: #### C BC #### [facility] [address] [place] [address] NUCLEATED RBC Canceled Normal [facility] Comment on above: Order Comment: TEST CBC WAS CANCELLED, 12/01/2020 18:56 NO SPECIMEN RECEIVED IN LAB. Performed By: #### C BC #### [facility] [address] [place] [address] PLT Canceled Normal [facility] Comment on above: Order Comment: TEST CBC WAS CANCELLED, 12/01/2020 18:56 NO SPECIMEN RECEIVED IN LAB. Performed By: #### C BC #### [facility] [address] [place] [address] RBC Canceled Normal [facility] Comment on above: Order Comment: TEST CBC WAS CANCELLED, 12/01/2020 18:56 NO SPECIMEN RECEIVED IN LAB. Performed By: #### C BC #### [facility] [address] [place] [address] RDW-CV Canceled Normal [facility] Comment on above: Order Comment: TEST CBC WAS CANCELLED, 12/01/2020 18:56 NO SPECIMEN RECEIVED IN LAB. Performed By: #### C BC #### [facility] [address] [place] [address] WBC Canceled Normal [facility] Comment on above: Order Comment: TEST CBC WAS CANCELLED, 12/01/2020 18:56 NO SPECIMEN RECEIVED IN LAB. Performed By: #### C BC #### [facility] [address] [place] [address] BASIC METABOLIC PANELon 11-17 ANION GAP Canceled Normal [facility] Comment on above: Order Comment: TEST BASIC METABOLIC PANEL WAS CANCELLED, 11/29/2020 10:53 NO SPECIMENRECEIVED IN LAB. Performed By: #### B MP ####[id number] [place] [address] BICARBONATE Canceled Normal [facility] Comment on above: Order Comment: TEST BASIC METABOLIC PANEL WAS CANCELLED, 11/29/2020 10:53 NO SPECIMENRECEIVED IN LAB. Performed By: #### B MP ####[id number] [place] [address] CALCIUM Canceled Normal [facility] Comment on above: Order Comment: TEST BASIC METABOLIC PANEL WAS CANCELLED, 11/29/2020 10:53 NO SPECIMENRECEIVED IN LAB. Performed By: #### B MP ####[id number] [place] [address] CHLORIDE Canceled Normal [facility] Comment on above: Order Comment: TEST BASIC METABOLIC PANEL WAS CANCELLED, 11/29/2020 10:53 NO SPECIMENRECEIVED IN LAB. Performed By: #### B MP ####[id number] [place] [address] CREATININE Canceled Normal [facility] Comment on above: Order Comment: TEST BASIC METABOLIC PANEL WAS CANCELLED, 11/29/2020 10:53 NO SPECIMENRECEIVED IN LAB. Performed By: #### B MP ####[id number] [place] [address] GFR- AM. Canceled Normal [facility] Comment on above: Order Comment: TEST BASIC METABOLIC PANEL WAS CANCELLED, 11/29/2020 10:53 NO SPECIMENRECEIVED IN LAB. Result Comment: CALC ULATIONS OF ESTIMATED GFR ARE PERFORMED USING THE MDRD STUDY EQUATION FOR THE IDMS-TRACEABLE CREATININE METHODS. CLIN CHEM 2007;53:766-72 Performed By: #### B MP ####[id number] [place] [address] GFR-NON AM. Canceled Normal [facility] Comment on above: Order Comment: TEST BASIC METABOLIC PANEL WAS CANCELLED, 11/29/2020 10:53 NO SPECIMENRECEIVED IN LAB. Performed By: #### B MP ####[id number] [place] [address] GLUCOSE Canceled Normal [facility] Comment on above: Order Comment: TEST BASIC METABOLIC PANEL WAS CANCELLED, 11/29/2020 10:53 NO SPECIMENRECEIVED IN LAB. Performed By: #### B MP ####[id number] [place] [address] POTASSIUM Canceled Normal [facility] Comment on above: Order Comment: TEST BASIC METABOLIC PANEL WAS CANCELLED, 11/29/2020 10:53 NO SPECIMENRECEIVED IN LAB. Performed By: #### B MP ####[id number] [place] [address] SODIUM Canceled Normal [facility] Comment on above: Order Comment: TEST BASIC METABOLIC PANEL WAS CANCELLED, 11/29/2020 10:53 NO SPECIMENRECEIVED IN LAB. Performed By: #### B MP ####[id number] [place] [address] UREA NITROGEN Canceled Normal [facility] Comment on above: Order Comment: TEST BASIC METABOLIC PANEL WAS CANCELLED, 11/29/2020 10:53 NO SPECIMENRECEIVED IN LAB. Performed By: #### B MP ####[id number] [place] [address] CBCon 11-29-2020 HCT Canceled Normal [facility] Comment on above: Order Comment: TEST CBC WAS CANCELLED, 11/29/2020 10:53 NO SPECIMEN RECEIVED IN LAB. Performed By: #### C BC ####[id number] [place] [address] HGB Canceled Normal [facility] Comment on above: Order Comment: TEST CBC WAS CANCELLED, 11/29/2020 10:53 NO SPECIMEN RECEIVED IN LAB. Performed By: #### C BC ####[id number] [place] [address] MCHC Canceled Normal [facility] Comment on above: Order Comment: TEST CBC WAS CANCELLED, 11/29/2020 10:53 NO SPECIMEN RECEIVED IN LAB. Performed By: #### C BC ####[id number] [place] [address] MCV Canceled Normal [facility] Comment on above: Order Comment: TEST CBC WAS CANCELLED, 11/29/2020 10:53 NO SPECIMEN RECEIVED IN LAB. Performed By: #### C BC ####[id number] [place] [address] NUCLEATED RBC Canceled Normal [facility] Comment on above: Order Comment: TEST CBC WAS CANCELLED, 11/29/2020 10:53 NO SPECIMEN RECEIVED IN LAB. Performed By: #### C BC ####[id number] [place] [address] PLT Canceled Normal [facility] Comment on above: Order Comment: TEST CBC WAS CANCELLED, 11/29/2020 10:53 NO SPECIMEN RECEIVED IN LAB. Performed By: #### C BC ####[id number] [place] [address] RBC Canceled Normal [facility] Comment on above: Order Comment: TEST CBC WAS CANCELLED, 11/29/2020 10:53 NO SPECIMEN RECEIVED IN LAB. Performed By: #### C BC ####[id number] [place] [address] RDW-CV Canceled Normal [facility] Comment on above: Order Comment: TEST CBC WAS CANCELLED, 11/29/2020 10:53 NO SPECIMEN RECEIVED IN LAB. Performed By: #### C BC ####[id number] [place] [address] WBC Canceled Normal [facility] Comment on above: Order Comment: TEST CBC WAS CANCELLED, 11/29/2020 10:53 NO SPECIMEN RECEIVED IN LAB. Performed By: #### C BC ####[id number] [place] [address] BASIC METABOLIC PANELon 11-17 Anion gap [Moles/Vol] 15 mmol/L Normal 10 - 20 [facility] Comment on above: Performed By: #### B MP #### [facility] [address] [place] [address] Calcium [Mass/Vol] 9.7 mg/dL Normal 8.6 - 10.6 [facility] Comment on above: Performed By: #### B MP #### [facility] [address] [place] [address] Chloride [Moles/Vol] 99 mmol/L Normal 98 - 107 [facility] Comment on above: Performed By: #### B MP #### [facility] [address] [place] [address] Creatinine [Mass/Vol] 0.81 mg/dL Normal 0.50 - 1.30 [facility] Comment on above: Performed By: #### B MP #### [facility] [address] [place] [address] GFR- AM. >60 Normal >60 [facility] Comment on above: Result Comment: CALC ULATIONS OF ESTIMATED GFR ARE PERFORMED USING THE MDRD STUDY EQUATION FOR THE IDMS-TRACEABLE CREATININE METHODS. CLIN CHEM 2007;53:766-72 Performed By: #### B MP #### [facility] [address] [place] [address] GFR-NON AM. >60 Normal >60 [facility] Comment on above: Performed By: #### B MP #### [facility] [address] [place] [address] Glucose [Mass/Vol] 188 mg/dL High 74 - 99 [facility] Comment on above: Performed By: #### B MP #### [facility] [address] [place] [address] HCO3 (Bld) [Moles/Vol] 26 mmol/L Normal 21 - 32 [facility] Comment on above: Performed By: #### B MP #### [facility] [address] [place] [address] Potassium [Moles/Vol] 5.1 mmol/L Normal 3.5 - 5.3 [facility] Comment on above: Performed By: #### B MP #### [facility] [address] [place] [address] Sodium [Moles/Vol] 135 mmol/L Low 136 - 145 [facility] Comment on above: Performed By: #### B MP #### [facility] [address] [place] [address] Urea nitrogen [Mass/Vol] 16 mg/dL Normal 6 - 23 [facility] Comment on above: Performed By: #### B MP #### [facility] [address] [place] [address] CBCon 11-27-2020 Erythrocyte distribution width (RBC) [Ratio] 12.8 % Normal 11.5 - 14.5 [facility] Comment on above: Performed By: #### C BC #### [facility] [address] [place] [address] Hematocrit (Bld) [Volume fraction] 43.9 % Normal 41.0 - 52.0 [facility] Comment on above: Performed By: #### C BC #### [facility] [address] [place] [address] Hemoglobin (Bld) [Mass/Vol] 14.2 g/dL Normal 13.5 - 17.5 [facility] Comment on above: Performed By: #### C BC #### [facility] [address] [place] [address] MCHC (RBC) [Mass/Vol] 32.3 g/dL Normal 32.0 - 36.0 [facility] Comment on above: Performed By: #### C BC #### [facility] [address] [place] [address] MCV (RBC) [Entitic vol] 94 fL Normal 80 - 100 [facility] Comment on above: Performed By: #### C BC #### [facility] [address] [place] [address] NUCLEATED RBC 0.0 /100 WBC Normal 0.0-0.0 [facility] Comment on above: Performed By: #### C BC #### [facility] [address] [place] [address] Platelets (Bld) [#/Vol] 237 10*3/uL Normal 150 - 450 [facility] Comment on above: Performed By: #### C BC #### [facility] [address] [place] [address] RBC 4.65 x10E12/L Normal 4.50 - 5.90 [facility] Comment on above: Performed By: #### C BC #### [facility] [address] [place] [address] WBC (Bld) [#/Vol] 8.5 10*3/uL Normal 4.4 - 11.3 [facility] Comment on above: Performed By: #### C BC #### [facility] [address] [place] [address] Daily Progress Note-Orthopamelissa law 11-27-2020 Daily Progress Note-Orthopaedics Service: Orthopaedics [...] advance as tolerated. 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 Scheduled tylenol. Robaxin. Continue [...] Kevin Marshall MD, PGY-2 Orthopedic Spine Team [id number] Available on [facility] Orthopedic Spine Team Kevin Marshall, PGY-2 ([id number]) Amrit Long PGY-3 ([id number]) Lambert Suarez PGY-4 ([id number]) Please call identification printing machine setter resident ([phone]) nights after 6pm and weekends Attestation: Note [...] Updated: 11-Dec-2020 15:25 by Bee Blackmon) Normal [facility] Laboratory - Chemistry and C hemistry - challengeon 11-27-2020 Anion gap [Moles/Vol] 15 mmol/L 10 - 20 [facility] Work Phone: Calcium [Mass/Vol] 9.7 mg/dL 8.6 - 10.6 [facility]rt hopaed [employer] Work Phone: Chloride [Moles/Vol] 99 mmol/L 98 - 107 [facility] Work Phone: CO2 [Moles/Vol] 26 mmol/L 21 - 32 [facility] Work Phone: Creatinine [Mass/Vol] 0.81 mg/dL See Below [facility] Work Phone: Comment on above: Reference Range: 0.5 0 - 1.30 Glucose [Mass/Vol] 188 mg/dL above high threshold 74 - 99 [facility] Work Phone: Potassium [Moles/Vol] 5.1 mmol/L 3.5 - 5.3 [facility] Work Phone: Sodium [Moles/Vol] 135 mmol/L below low threshold 136 - 145 [facility] Work Phone: Urea nitrogen [Mass/Vol] 16 mg/dL 6 - 23 [facility] Work Phone: Laboratory - Hematology and Cell countson 11-27-2020 Erythrocyte distribution width (RBC) [Ratio] 12.8 % See Below [facility] [employer] Work Phone: Comment on above: Reference Range: 11. 5 - 14.5 Hematocrit (Bld) [Volume fraction] 43.9 % See Below [facility] [employer] Work Phone: Comment on above: Reference Range: 41. 0 - 52.0 Hemoglobin (Bld) [Mass/Vol] 14.2 g/dL See Below [facility] [employer] Work Phone: Comment on above: Reference Range: 13. 5 - 17.5 MCHC (RBC) [Mass/Vol] 32.3 g/dL See Below [facility] [employer] Work Phone: Comment on above: Reference Range: 32. 0 - 36.0 MCV (RBC) [Entitic vol] 94 fL 80 - 100 [facility] [employer] Work Phone: Platelets (Bld) [#/Vol] 237 10*3/uL 150 - 450 [facility] [employer] Work Phone: RBC (Bld) [#/Vol] 4.65 {x10E12/L} See Below [facility] [employer] Work Phone: Comment on above: Reference Range: 4.5 0 - 5.90 WBC (Bld) [#/Vol] 8.5 10*3/uL 4.4 - 11.3 MG-Ort hopaed [employer] Work Phone: No Panel Informationon 11-27 >60 >60 [facility] [employer] Work Phone: Comment on above: CALCULATIONS OF LUCHO MATED GFR ARE PERFORMED USING THE MDRD STUDY EQUATION FOR THE IDMS-TRACEABLE CREATININE METHODS. CLIN CHEM 2007;53:766-72 0.0 {/100_WBC} 0.0-0.0 MG-Orthopa ed [employer] Work Phone: Daily Progress Note-Balta law 11-26-2020 Daily Progress Note-Orthopaedics Service: Orthopaedics Subjective [...] diet, advance as tolerated. Bowel regimen - ASSISTANT [employer] PUBLIC DEFENDER, will attempt to wean POD#1. Scheduled tylenol. [...] Lambert Suarez MD Orthopedic Surgery PGY-4 Pager: [phone] Please page consult resident ([phone]) from 6pm-8am and on weekends. Attestation: Note [...] the note. I personally evaluated the patient [id number] Electronic Signatures: Bee Blackmon) (Signed 11-Dec-2020 15:23) Authored: Note Completion Co-Signer: Service, Subjective Data, Objective Data, Assessment and Plan, Note Completion Lambert Suarez (Resident)) (Signed 26-Nov-2020 14:32) Authored: Service, Subjective Data, Objective Data, Assessment and Plan, Note Completion Last Updated: 11-Dec-2020 15:23 by Bee Blackmon) Normal [facility] Discharge [id number] Discharge Profile2 Discharge Orders: Significant Events: [...] at 26-Nov-2020 14:34:02 Appointments: Follow-Up Appointment 01: Physician/Dept/Service. Bee Blackmon/ Orthopaedic Surgery/ Spine Reason for ReferralPostoperative Follow-Up Appointment Scheduled Date/[id number] 11:15 [id number] [facility] [address], Phone NumberOffice: (Tova, Gene.) - [phone] CommentsPlease Call Tara Gonzalez RN at [phone] For Any Post-Op Questions Electronic Signatures: Tara Gonzalez (RN) (Signed 26-Nov-2020 13:51) Authored: Discharge Orders, Appointments, Gold Form - Dogger Summary Bee Blackmon) (Signed 10-Dec-2020 17:40) Co-Signer: Discharge Orders, Hospital Course (Home Care/Gold Form), Provider FINAL REVIEW of Orders, Appointments, Gold Form - Dogger Summary Lambert Suarez (Resident)) (Signed 26-Nov-2020 14:34) Entered: Hospital Course (Home Care/Gold Form), Provider FINAL REVIEW of Orders Authored: Discharge Orders, Hospital Course (Home Care/Gold Form), Provider FINAL REVIEW of Orders, Appointments, Gold Form - Dogger Summary Last Updated: 10-Dec-2020 17:40 by Bee Blackmon) Normal [facility] GLUCOSE-POCTon 11-26-2020 Glucose [Mass/Vol] 186 mg/dL High 74 - 99 [facility] Comment on above: Performed By: #### G BABS #### [facility] [address] [facility] [place] [address] Laboratory - Chemistry and C hemistry - challengeon 11-26-2020 Glucose [Mass/Vol] 186 mg/dL above high threshold 74 - 99 [facility] Work Phone: No Panel Informationon 11-26 Please click on the link to view the study images Normal MG-Orthopaed [employer] Work Phone: Operative Reports - [facility] [place] [address] Patient Name: RYAN. Taylor QUINN : 1965 Date of Service: 11/26/2020 Patient Location: [place] [address] Patient Type: I Surgeon: Bee Blackmon MD [...] [employer] Decade plate. SURGEON: Bee Blackmon MD SENIOR SUPPLY CHAIN ANALYST(S): Lambert Suarez MD ANESTHESIA: General. CLINICAL NOTE [...] confirm retractor (more content not included)... Normal [facility] Order Reconciliationon 11-26 Order Reconciliation Page [...] on 11/27/20 and continuing for 5 days, (more content not included)... Normal [facility] Order Reconciliation Page 1 Admission Reconciliation Document Reconciliation Type: Admission from OR requested on behalf of Lambert Suarez (Resident) done by Lambert Suarez ( (Resident)) Admission from OR - Reconciliation: 26-Nov-2020 14:21 by: Lambert Suarez ( (Resident)) Home MedicationsEnteredLast Dose TakenReconciled with current Order Reconciliation Comment/ Additional Information DULoxetine 60 mg oral delayed release capsule 1 cap(s) orally once a day [id number] AM DULoxetine Delayed Release Capsule (CYMBALTA)DOSE = 60 mg Oral DailyDULoxetine 60 mg oral delayed release capsule continued as the inpatient order DULoxetine fenofibrate 48 mg oral tablet 1 tab(s) orally once a [id number]-Nov-2020 AM Reviewed and Held lisinopril 20 mg oral tablet 1 tab(s) orally once a [id number] AM Lisinopril Tablet (PRINIVIL, ZESTRIL)DOSE = 20 [...] orally once a day (in the evening) [id number] Reviewed and Held Additional Current Orders Albuterol [...] 15 minute(s)Clinician Notes: Charmaine-operative order ONLY Normal [facility] Patient Profile - Preop v2on 11-26-2020 Patient Profile - Preop v2 Profile: Initial Info: How to be AddressedRyan Spoken Language PreferredEnglish Stated Reason for Admissionl3-4 cage Primary Contact Name and NumberRenee, Patient Belongingssee preop checklist Medications Brought to Hospitalno General Health: Weight in kg129.7 kilogram(s) Weight in deh269.9 pound(s) Weight Methodactual (measured) Scale Typestanding Height [...] Learning Preferencesindividual instruction Cultural Considerationsnone Developmental Considerationsnone Voodoo Considerationsnone Other learner availableno [place] RiskPatient location auto qualifies him/her for HIGH RISK. Are there any cultural, spiritual, church practices/values/needs that are important for us to [...] History, Active 19-Nov-2020 SARS-CoV-2 (COVID-19): Immunizations, Active, [employer] COVID-19 Vacc 30 mcg/0.3ml IM Suspension, 22-Jul-2020 SARS-CoV-2 (COVID-19): Immunizations, Active, [employer] COVID-19 Vacc 30 mcg/0.3ml IM suspension, 01-Jul-2020 Electronic Signatures: Pat Padilla (BENI) (Signed 26-Nov-2020 12:05) Authored: Initial Info, General Health, Health Mgmt, Relationship/Environ, Substance, Risk Screens, Additional Information Last Updated: 26-Nov-2020 12:05 by Pat Padilla (BENI) Normal [facility] Vital Signs Date Time Vital Sign Value Performing Clinician Facility 03-27-2024 09:46-0500 Body mass index (BMI) [Ratio] 34.72 kg/m2 Karon Rodriguez [employer]ATING PL[employer] SUPERINTENDENT Work Phone: [facility] 03-27-2024 09:46-0500 Body weight 116.12 kg Karon Rodriguez [employer]ATING [employer] SUPERINTENDENT Work Phone: [facility] 03-27-2024 09:46-0500 Diastolic blood pressure 96 mm[Hg] Karon Rodriguez [employer]ATING PL[employer] SUPERINTENDENT Work Phone: [facility] 03-27-2024 09:46-0500 Heart rate 82 /min Karon Rodriguez [employer]ATING PL[employer] SUPERINTENDENT Work Phone: [facility] 03-27-2024 09:46-0500 Systolic blood pressure 148 mm[Hg] Karon Rodriguez [employer]ATING PL[employer] SUPERINTENDENT Work Phone: [facility] 09-15-2023 10:11-0400 Body height 184.15 cm DO Kimidane Weiss Work Phone: [facility] 09-15-2023 10:11-0400 Body mass index (BMI) [Ratio] 35.2 kg/m2 DO Kimi Weiss Work Phone: [facility] 09-15-2023 10:11-0400 Body weight 119.29 kg DO Kimidane Weiss Work Phone: [facility] 09-07-2023 10:35-0400 Diastolic blood pressure 98 mm[Hg] DO Kimi Weiss Work Phone: [facility] 09-07-2023 10:35-0400 Heart rate 102 /min DO Kimi Weiss Work Phone: [facility] 09-07-2023 10:35-0400 Respiratory rate 20 /min DO Kimi Weiss Work Phone: [facility] 09-07-2023 10:35-0400 SaO2% (BldA) [Mass fraction] 96 % DO Kimi Weiss Work Phone: [facility] 09-07-2023 10:35-0400 Systolic blood pressure 160 mm[Hg] DO Kimi Weiss Work Phone: [facility] 09-07-2023 10:00-0400 Inhaled oxygen flow rate 3 L/min DO iKmi Weiss Work Phone: [facility] 09-07-2023 09:19-0400 Body height 182.88 cm DO Kimi Weiss Work Phone: [facility] 09-07-2023 09:19-0400 Body weight 120.2 kg DO Kimi Weiss Work Phone: [facility] 09-16-2021 14:17-0400 Body mass index (BMI) [Ratio] 34.45 kg/m2 Kimi Weiss Work Phone: [facility]Hahhl[facility]Kn[facility] Work Phone: 09-16-2021 14:17-0400 Body surface area Derived from formula 2.36 m2 Kimi Weiss Work Phone: XA-Rzzpvar-Dcykc [facility] [address] Work Phone: 09-16-2021 14:17-0400 Body weight 115.21 kg Kimi Weiss Work Phone: FM-Dzplofs-Tkqdq [facility] [address] Work Phone: 07-23-2021 09:45-0400 Body height 184.15 cm Charles Claros Other [employer] Other 07-23-2021 09:45-0400 Body mass index (BMI) [Ratio] 34.51 kg/m2 Charles Claros Other [employer] Other 07-23-2021 09:45-0400 Body weight 117.03 kg Charles Claros Other [employer] Other 06-18-2021 14:17-0500 Body mass index (BMI) [Ratio] 36.75 kg/m2 Kimi Weiss Work Phone: RT-Vczpkcy-Ajkbl [facility] [address] Work Phone: 06-18-2021 14:17-0500 Body surface area Derived from formula 2.42 m2 Kimi Weiss Work Phone: XN-Ksoibim-Grorw [facility] [address] Work Phone: 06-18-2021 14:17-0500 Body weight 122.93 kg Kimi Weiss Work Phone: HT-Fnlrxvx-Tjcsy [facility] [address] Work Phone: 04-23-2021 09:49-0500 Body height 182.88 cm Kimi Weiss Work Phone: ZR-Iwppznx-Sltns [facility] Work Phone: 04-23-2021 09:49-0500 Body mass index (BMI) [Ratio] 39.6 kg/m2 Kimi Weiss Work Phone: SZ-Cesusxi-Kpjaf [facility] [address] Work Phone: 04-23-2021 09:49-0500 Body surface area Derived from formula 2.5 m2 Kimi Weiss Work Phone: LN-Mxgmpav-Vtzgo [facility] [address] Work Phone: 04-23-2021 09:49-0500 Body weight 132.45 kg Kimi Weiss Work Phone: GL-Kzttuoi-Agiyi [facility] [address] Work Phone: 04-02-2021 09:45-0500 Body height 184.15 cm Charles Claros Other [employer] Other 04-02-2021 09:45-0500 Body mass index (BMI) [Ratio] 35.44 kg/m2 Charles Claros Other [employer] Other 04-02-2021 09:45-0500 Body weight 120.2 kg Charles Claros Other [employer] Other Encounters Encounter Date Encounter Type Care Provider Facility Start: 03-27-2024 End: 03-27-2024 [employer] Karon Rodriguez [employer]ATING PLANT SUPERINTENDENT Work Phone: [facility] Start: 03-27-2024 End: 03-27-2024 [employer] Karon Rodriguez [employer]ATING PL[employer] SUPERINTENDENT Work Phone: [facility] Start: 03-27-2024 End: 03-27-2024 Office outpatient visit 25 minutes Karon Rodriguez [employer]ATING [employer] SUPERINTENDENT Work Phone: [facility] [facility] [facility] Comment on above: Chronic cluster head ache, not intractable (Primary Dx); Essential hypertension (CMS/HCC); History of blood clots Start: 03-27-2024 End: 03-27-2024 ambulatory KARON RODRIGUEZ Not Available Start: 03-07-2024 ambulatory Kimi Weiss Facili ty:[facility] Start: 02-21-2024 End: 02-21-2024 ambulatory Kimi Weiss Facility: [facility] Start: 02-07-2024 End: 02-07-2024 ambulatory Kimi Weiss Facility: [facility] Start: 01-17-2024 End: 01-17-2024 [facility] Start: 01-03-2024 End: 01-03-2024 ambulatory Kimi Weiss Facility: [facility] Start: 11-30-2023 End: 11-30-2023 ambulatory KARON RODRIGUEZ Not Available Start: 09-15-2023 End: 09-15-2023 ambulatory Kimi Weiss Facility:[facility] Start: 09-15-2023 End: 09-15-2023 ambulatory DO Kimi Weiss Work Phone: [facility] Work Phone: Start: 09-15-2023 End: 09-15-2023 Patient encounter procedure DO Kimi Weiss Work Phone: [facility] Work Phone: Start: 09-07-2023 End: 09-07-2023 ambulatory Charles Claros Facility:[facility] Start: 09-07-2023 Non-patient / Non-visit DO Mike Weiss Work Phone: [facility] Work Phone: Start: 09-07-2023 End: 09-07-2023 Admission to same day surgery center DO Kimi Weiss Work Phone: [facility] Work Phone: Start: 09-07-2023 End: 09-07-2023 ambulatory DO Kimi Weiss Work Phone: [facility] Work Phone: Start: 08-16-2023 ambulatory Kimi Weiss [facility] Start: 08-09-2023 End: 08-09-2023 ambulatory THALIA SANDY Not Available Start: 08-05-2023 End: 08-05-2023 ambulatory [facility] Work Phone: Start: 08-05-2023 End: 08-05-2023 Patient encounter procedure [facility] Work Phone: Start: 06-24-2023 End: 06-24-2023 ambulatory Kimi Weiss Facility: [facility] Start: 04-23-2023 End: 04-23-2023 ambulatory Kimi Weiss Facility: [facility] Start: 04-22-2023 End: 04-22-2023 ambulatory Charles Claros Other [employer] Other Start: 04-22-2023 Telephone encounter Charles Claros [facility] [place] [facility] Start: 04-08-2023 ambulatory Kimi Weiss Facili ty:[facility] Start: 04-01-2023 End: 04-01-2023 ambulatory Charles Brisenoer Other [employer] Other Start: 04-01-2023 Office outpatient vi sit 25 minutes Charles Brisenoer [facility] [place] [facility] Start: 04-01-2023 Telephone encounter Charles HOLT [facility] Start: 01-21-2023 End: 01-21-2023 ambulatory Charles Brisenodelma Other [employer] Other Start: 01-21-2023 Office outpatient vi sit 25 minutes Charles Brisenoer [facility] [place] [facility] Start: 01-21-2023 Telephone encounter Charles HOLT [facility] Start: 10-06-2022 End: 10-06-2022 ambulatory Charles Claros Other [employer] Other Start: 10-06-2022 Office outpatient vi sit 25 minutes Charles Brisenoer [facility] [place] [facility] Start: 10-06-2022 Telephone encounter Charles HOLT [facility] Start: 07-23-2022 ambulatory Bee Blackmon Facility :[id number] Start: 06-01-2022 End: 06-01-2022 ambulatory Charles Brisenodelma Other [employer] Other Start: 06-01-2022 Office outpatient vi sit 25 minutes Charles Brisenoer [facility] [place] [facility] Start: 06-01-2022 Telephone encounter Charles Claros [facility] [place] [facility] Start: 05-13-2022 AUDIT Kimi Rasmussen on Work Phone: [facility]Lprduudliggh[facility]Mops[facility]m e Work Phone: Start: 05-12-[address] Kimi Weiss Facility:[id number] Start: 04-27-2022 Office outpatient vi sit 40 minutes Kimi Weiss Work Phone: [facility]De[facility]nt[facility] e Work Phone: Start: 04-14-2022 End: 04-14-[address] DANIEL BENITEZ Facility:[id number] Start: 02-18-2022 End: 02-18-2022 ambulatory Charles Brisenodelma Other [employer] Other Start: 02-18-2022 Office outpatient vi sit 25 minutes Charles Claros [facility] [place] [facility] Start: 02-18-2022 Telephone encounter Charles Burnham [facility] Start: 12-15-2021 End: 12-15-2021 ambulatory Charles Claros Other [employer] Other Start: 12-15-2021 Office outpatient vi sit 25 minutes Charles Claros [facility] [place] [facility] Start: 09-29-2021 Office outpatient ne w 30 minutes Kimi Weiss Work Phone: ID-Plhsmwicyrkv-Ljlubez e Work Phone: Start: 09-16-2021 Office outpatient vi sit 25 minutes Kimi Weiss Work Phone: ZY-Ptlcccc-Kgeut [id number] Work Phone: Start: 07-28-2021 Office outpatient vi sit 15 minutes Kimi Weiss Work Phone: JB-Rynnkmaetipm-Jvbkphf e Work Phone: Start: 07-23-2021 End: 07-23-2021 ambulatory Charles Claros Other [employer] Other Start: 07-23-2021 Office outpatient vi sit 25 minutes Charles Claros [facility] [place] Start: 06-18-2021 Office outpatient vi sit 25 minutes Kimi Weiss Work Phone: UR-Cjmotay-Lzqwg [id number] Work Phone: Start: 06-03-2021 PAYAM, Provider : Shobha Gomez, Status: Pen, Time: 8:30 AM Kimi Weiss Work Phone: QZ-Nytqvpu-Qtxxh [id number] Work Phone: Start: 06-02-2021 AUDIT Kimi Rasmussen on Work Phone: TG-Zgdmcnk-Qhszd [id number] Work Phone: Start: 04-23-2021 Current tobacco non- user cad cap copd pv dm Kimi Weiss Work Phone: AK-Fvjdwzr-Cxhsi [id number] Work Phone: Start: 04-02-2021 End: 04-02-2021 ambulatory Charles Claros Other [employer] Other Start: 04-02-2021 Office outpatient vi sit 25 minutes Charles Claros [facility] [place] Start: 03-10-2021 Office outpatient vi sit 15 minutes Kimi Weiss Work Phone: AG-Agckjhaadkyd-Wlbviez e Work Phone: Start: 02-05-2021 Office outpatient vi sit 25 minutes Charles Claros [facility] [place] Start: 12-09-2020 Postop follow up vis it related to original px Kimi Weiss Work Phone: MH-Szbipayepbtl-Ecwjgbh e Work Phone: Start: 11-26-2020 End: 11-27-2020 Evaluation and management of inpatient Bee Blackmon [facility] [place] 34 Start: 10-31-2020 Phys/qhp telephone evaluation 21-30 min Referring Provider Unknown IE-Tndxdoopdklu-Fpmkcy Work Phone: Procedures Date Procedure Procedure Detail Performing Clinician Start: 09-15-2023 X-ray of lumbar spin e, four views DO Kimi Weiss Work Phone: Start: 09-15-2023 Plain X-ray of right hip DO Kimi Weiss Work Phone: Start: 09-07-2023 Local anesthetic sac ral epidural block DO Kimi Weiss Work Phone: Start: 05-04-2022 Follow-up visit Start: 12-28-2017 Colonoscopy Karon remy NP Work Phone: Plan of Treatment Date Care Activity Detail Author Start: 12-29-2027 Screening for malign ant neoplasm of colon [facility] Start: 07-11-2024 End: 07-11-2024 Patient encounter procedure 07/11/2024 9:40 AM EDT Office Visit [facility] [place] [address] [place] [id number] Karon Rodriguez NP [address] [place], [place] [id number] [address] [place] [address] Start: 03-27-2024 End: 03-27-2024 Patient encounter procedure 03/27/2024 9:40 AM EST [facility] [address] [address] [place] [address] Karon Rodriguez NP [address] [place], [place] [id number] Arrived [facility] [place] [address] Comment on above: Arrived Start: 12-19-2023 Influenza vaccination Influenza Vacc ine (#1) [facility] Start: 09-15-2023 X-ray of lumbar spin e, four views XR lumbar spine AP/LAT/FLX/EXT [facility] Start: 09-15-2023 XR Lumbar spine 4 Views [facility] Start: 09-15-2023 Plain X-ray of right hip XR hip RT min 2V(w/wo pelvis)* [facility] Start: 09-15-2023 XR Hip - right 2 Views [facility] Start: 09-07-2023 [facility] Start: 06-11-2022 EMG, Provider: NEURODIAG [id number] EMG [id number], Status: Pen, Time: 10:30 AM EMG, Provider: NEURODIAG EMC01 EMG [id number], Status: Pen, Time: 10:30 AM NA-Lwyazuwahono-Gjxwgr kendal Work Phone: Start: 05-04-2022 VIRFUVHOME, Provider : Marisol Husain, Status: Pen, Time: 8:45 AM VIRFUVHOME, Provider: Marisol Husain, Status: Pen, Time: 8:45 AM ZV-Rfxleotfuxvm-Scmdrm ke Work Phone: Start: 01-13-2022 VIRFUVHOME, Provider : Marisol Husain, Status: Pen, Time: 2:15 PM VIRFUVHOME, Provider: Marisol Husain, Status: Pen, Time: 2:15 PM CD-Zbnazkvepbyp-Grddhg ke Work Phone: Start: 09-29-2021 FUV, Provider: Bee Blackmon, Status: Pen, Time: 11:30 AM FUV, Provider: Bee Blackmon, Status: Pen, Time: 11:30 AM RV-Emnnbir-Tdopm [id number] Work Phone: Start: 09-16-2021 VIRFUVHOME, Provider : Marisol Husain, Status: Pen, Time: 2:15 PM VIRFUVHOME, Provider: Marisol Husain, Status: Pen, Time: 2:15 PM JJ-Ijarofhaybna-Bvqivy ke Work Phone: Start: 06-18-2021 VIRFUVHOME, Provider : Marisol Husain, Status: Pen, Time: 2:15 PM VIRFUVHOME, Provider: Marisol Husain, Status: Pen, Time: 2:15 PM EV-Evhioav-Azzhc MAC2 303 Work Phone: Start: 04-23-2021 NPV, Provider: Marisol Husain, Status: Pen, Time: 10:00 AM NPV, Provider: Marisol Husain, Status: Pen, Time: 10:00 AM [facility] Work Phone: Start: 03-10-2021 FUV, Provider: Bee Blackmon, Status: Pen, Time: 11:15 AM FUV, Provider: Bee Blackmon, Status: Pen, Time: 11:15 AM YL-Chhjvgzcnvoc-Xujicv ke Work Phone: Start: 03-10-2021 Patient encounter procedure [facility] [place] Start: 12-16-2020 POV, Provider: Bee Blackmon, Status: Pen, Time: 11:15 AM POV, Provider: Bee Blackmon, Status: Pen, Time: 11:15 AM HU-Udqbplmqwqtw-Xxrxjs Work Phone: Start: 11-26-2020 SURGCMC, Provider: Bee Blackmon, Status: Pen, Time: 8:30 AM SURGCMC, Provider: Bee Blackmon, Status: Pen, Time: 8:30 AM HP-Pkaluqbauuqz-Khidkh Work Phone: Start: 1965 Screening for malign ant neoplasm of colon [facility] Patient Education Know your Meds Felter Non Diagnostic Block [facility] Work Phone: Patient referral [facility] Work Phone: Immunizations Immunization Date Immunization Notes Care Provider Nestor olvera 07-22-2020 Pfizer-BioNTech COVID-19 Vacc 30 MCG/0.3ML Intramuscular Suspension Referring Provider Unknown LV-Lntwirrervez-Bjkkf a Work Phone: 07-01-2020 Pfizer-BioNTech COVID-19 Vacc 30 MCG/0.3ML Intramuscular Suspension Referring Provider Unknown EC-Qvluosyrgjaq-Ghgyb a Work Phone: 01-27-2020 influenza, injectabl e, quadrivalent, preservative free Referring Provider Unknown TM-Zhdwkvjrnmzv-Ddilp a Work Phone: 01-27-2020 influenza virus vaccine, unspecified formulation Karon Rodriguez NP Work Phone: [facility] 02-13-2019 influenza, injectabl e, quadrivalent, contains preservative Referring Provider Unknown YS-Ivogfkiacjhc-Edkbj a Work Phone: 02-21-2018 influenza, injectabl e, quadrivalent, preservative free Referring Provider Unknown AO-Vkxdcrqhzcne-Sxqcr a Work Phone: 01-30-2017 KENALOG - 10 mg Charles Felte r Other [employer] Other 01-17-2014 influenza, seasonal, injectable Referring Provider Unknown LH-Osrbtvbhgkmf-Gigot a Work Phone: Payers Date Payer Category Payer Self-pay [id number] 2022 Private Health Insurance [employer] [id number] 2022 Unknown [id number] [id number] 1966 Unknown [id number] 2.16840.1.072998.3.579. 2.1069 1966 Unknown [id number] 2.16840.1.596183.3.579. 2.593 1966 Unknown [id number] 2.16840.1.942969.3.579. 2.1068 1966 Unknown [id number] 2.16840.1.541141.3.579. 2.1245 1966 Unknown [id number] 2.16840.1.837168.3.579. 2.718 1966 Unknown [id number] 2.16.840.1.163635.3.579. 2.718 1966 Unknown [id number] 2.16.840.1.977531.3.579. 2.718 1966 Unknown [id number] 2.16.840.1.922746.3.579. 2.718 1966 Unknown [id number] 2.16.840.1.929546.3.579. 2.8 1966 Unknown [id number] 2.16.840.1.138839.3.579. 2. 1966 Unknown [id number] 2.16.840.1.416422.3.579. 2. 1966 Unknown [id number] 2.16.840.1.144134.3.579. 2.8 1966 Unknown [id number] 2.16.840.1.706853.3.579. 2.9 1966 Unknown [id number] 2.16.840.1.531270.3.579. 2.9 1966 Unknown [id number] 2.16.840.1.242162.3.579. 2.1259 1959 Unknown [id number] 2.16.840.1.230198.19 Unknown Unknown [id number] 2.16.840.1.094692.19 Unknown [id number] Unknown [id number] 2.16.840.1.400106.3.579. 2.531 Unknown [id number] 2.16.840.1.461999.3.579. 2.531 Social History Date Type Detail Facility [facility] Tobacco smoking consumption unknown [facility] Start: 08-08-2023 Non-smoker Non-smoker [id number] Work Phone: Start: 08-08-2023 Sex Assigned At [facility] [employer] Other Start: 02-29-2020 End: 08-08-2023 Tobacco smoking status ILIS Never smoked tobacco (finding) [facility] Start: 1965 Sex Assigned At Male [facility] Start: 11-30-2023 End: 03-27-2024 Alcoholic beverage intake Lifetime non-drinker (finding) [facility] Start: 1965 Sex assigned at Not on file N [facility] Medical Equipment Procedure Code Equipment Code Equipment Origin al Text Equipment Identifier Dates USE DIRECTED TO TEST BLOOD SUGAR EVERY DAY Start: 02-07-2024 Goals Date Patient Goal Desired Activity /State Functional Status Date Assessment Result Facility Functional observable [facility] Mental Status Date Assessment Result Facility 11-26-2020 Cognitive functi ons [id number] [facility] Clinical Notes 03-10-2018 to 03-27-2024 Karon Rodriguez NP - 03/27/2024 9:40 AM EST Note Date & Type Note Facility 03-27-2024 Note - From: Whitney Jordan RN ([facility] ([facility])) To: Mariah Machado CNP; Sent: 03/27/2024 07:29:10 EST Subject: FW: Medication Management Due Date/Time: 03/27/2024 08:58:00 EST Caller Name: BERNABE LYLY HAUSER; Caller Number: , From: [employer] [facility] #[id number] To: Kimi Weiss DO Sent: March 25, 2024 7:58:45 AM WAREHOUSE TEAM MEMBER Subject: Medication Management Due: March 26, 2024 12:30:42 AM WAREHOUSE TEAM MEMBER On Hold Pending Signature Dispensed Drug: ONE TOUCH VERIO FLEX BG MONITOR, USE DIRECTED DAILY Quantity: 1 EA Days Supply: 30 Refills: 0 Substitutions Allowed Notes from Pharmacy: On Hold Pending Signature Dispensed Drug: lisinopril (lisinopril 30 mg oral tablet), TAKE 1 TABLET BY MOUTH DAILY Quantity: 90 tab(s) Days Supply: 90 Refills: 0 Substitutions Allowed Notes from Pharmacy: On Hold Pending Signature Dispensed Drug: fenofibrate (fenofibrate 48 mg oral tablet), TAKE 1 TABLET BY MOUTH DAILY Quantity: 90 tab(s) Days Supply: 90 Refills: 0 Substitutions Allowed Notes from Pharmacy: On Hold Pending Signature Dispensed Drug: rivaroxaban (Xarelto 20 mg oral tablet), TAKE 1 TABLET BY MOUTH DAILY Quantity: 90 tab(s) Days Supply: 90 Refills: 0 Substitutions Allowed Notes from Pharmacy: Submitted: Order:!-Misc Request. (ONE TOUCH VERIO FLEX BG MONITOR) See Instructions USE DIRECTED DAILY Qty: 1 EA Days Supply: 30 Refills: 0 Substitutions Allowed Route To [facility] #[id number] Signed by Mariah Machado APRN, CNP 03/27/2024 10:48:00 EST Not Approved: New Rx to follow !-Misc Request. (ONE TOUCH VERIO FLEX BG MONITOR) USE DIRECTED DAILY Qty: 1 EA Days Supply: 30 Refills: 0 Substitutions Allowed Route To [facility] #[id number] Signed by Mariah Machado APRN, CNP From: Mariah Machado APRN, CNP To: [facility] #[id number] Sent: 03/27/2024 10:48:58 EST Subject: FW: Medication Management Submitted: Complete:rivaroxaban (Xarelto 20 mg oral tablet) Signed by Mariah Machado APRN, CNP 03/27/2024 10:48:00 EST Submitted: Complete:fenofibrate (fenofibrate 48 mg oral tablet) Signed by Mariah Machado APRN, CNP 03/27/2024 10:48:00 EST Submitted: Complete:lisinopril (lisinopril 20 mg oral tablet) Signed by Mariah Machado APRN, CNP 03/27/2024 10:48:00 EST Approved with modifications: lisinopril (LISINOPRIL 30MG TABLETS) TAKE 1 TABLET BY MOUTH DAILY Qty: 90 tab(s) Days Supply: 90 Refills: 1 Substitutions Allowed Route To [facility] #[id number] Signed by Mariah Machado APRN, CNP Approved with modifications: fenofibrate (FENOFIBRATE 48MG TABLETS) TAKE 1 TABLET BY MOUTH DAILY Qty: 90 tab(s) Days Supply: 90 Refills: 1 Substitutions Allowed Route To [facility] #[id number] Signed by Mariah Machado APRN, CNP Approved with modifications: rivaroxaban (XARELTO 20MG TABLETS) TAKE 1 TABLET BY MOUTH DAILY Qty: 90 tab(s) Days Supply: 90 Refills: 1 Substitutions Allowed Route To [facility] #[id number] Signed by Mariah Machado APRN, CNP [facility] 03-27-2024 History of Present illness Narrative Images from the original note were not included. Chief Complaint Patient presents with Migraine Headache Cluster Back Pain Subjective Lyly Quinn is a 59 y.o. male. The patient presents today for follow up to cluster headaches and back pain. He states that he had recent cluster episode that lasted about 2 weeks. He takes Emgality once a month, and this has effectively reduced the frequency and intensity of his headaches. He continues on Nurtec which is helpful when combined with sleep. However, he denies Nurtec being effective during his above cluster episode. The patient's headaches are associated with nausea when severe. They are not associated with visual disturbance, vomiting, or increased sensitivity to light or sound. He admits continued lower back and RLE pain. Admits chronic lower extremity weakness He follows with neurosurgery and will be seeing a new pain management provider at the [facility] soon. He denies any further concerns today. Review of Systems Constitutional: Negative for appetite change, fatigue and fever. Respiratory: Negative for cough, shortness of breath and wheezing. Cardiovascular: Negative for chest pain, palpitations and leg swelling. Gastrointestinal: Negative for abdominal pain, constipation, diarrhea and nausea. Musculoskeletal: Positive for back pain and gait problem. Negative for arthralgias and myalgias. Neurological: Positive for weakness and headaches. Negative for dizziness, tremors and numbness. Past Medical History: Diagnosis Date Cluster headache syndrome 04/22/2011 DVT (deep venous thrombosis) ([facility]) Encounter for long-term (current) drug use 09/10/2011 Pulmonary embolism ([facility]) Past Surgical History: Procedure Laterality Date BACK SURGERY KNEE SURGERY arthroscopy LUMBAR FUSION Family History Problem Relation Name Age of Onset Clotting disorder Other Hypertension Sibling Social History Tobacco Use Smoking status: Never Smokeless tobacco: Not on file Substance Use Topics Alcohol use: Never Allergies: Patient has no known allergies. Vitals: 03/27/24 0946 BP: (!) 148/96 Pulse: 82 Body mass index is 34.72 kg/m . weight: 256 lb Neurologic exam: Mental status: Well nourished, well developed and in no acute distress. Grossly oriented to person, place and time. Recent and remote memory are intact. Speech is clear and fluent without aphasia. Attention and concentration are normal. Fund of knowledge is appropriate for level of education. Cranial nerves: CN II: Visual acuity is normal. Visual macdonald full to confrontation. CN III, IV, : Pupils are equal, round and reactive to light. Extraocular movements intact. No ptosis present. CN V: Facial sensation is normal. CN VII: Full and symmetric facial movement. CN VIII: Hearing is intact. CN IX and X: Palate elevates symmetrically. CN XI: Shoulder shrug is normal bilaterally. CN XII: Tongue is midline without atrophy or fasciculation. Motor: RUE strength deltoid , biceps , triceps , wrist extensors , wrist flexor , and appian bpm developer strength 5/5. LUE strength deltoid , biceps , triceps , wrist extensors , wrist flexor , and appian bpm developer strength 5/5. RLE strength illopsoas, quadriceps, tibialis anterior, dorsiflexion, and plantar flexion strength 4-/5. LLE strength illopsoas, quadriceps, tibialis anterior, dorsiflexion, and plantar flexion strength 4/5. Tone is normal. Bulk is normal. Sensory: Sensation is intact to light touch throughout distal extremities. Reflexes: RUE biceps reflex 2+ , brachioradialis reflex 2+. LUE biceps reflex 2+ , brachioradialis reflex 2+. RLE knee reflex 1+. LLE knee reflex 0. Brooke's sign negative Coordination: Pxyavk-uk-ukxz testing normal. Rapid alternating movements are normal Gait: Ambulates with a cane, antalgic gait. Difficulty raising from a seated position. Review and summary of old records: MRI of the brain with and without contrast at [facility] on 02/16/23: No acute intracranial process. EMG of the BLE at on 07/23/22: Essentially normal nerve conduction studies of the lower extremities. The patient has low amplitude tracing and sensory nerve secondary to swelling. The numbness and tingling could be from venous distention swelling itself. No definite suggestion of polyneuropathy. The right lower extremity activation of muscle is somewhat limited due to significant back pain, but no active denervation is notable. The patient has a suggestion of L5-S1 radicular changes on the left without any active denervation. The patient's symptoms, therefore, relate to the lumbar spine. MRI of the lumbar spine w/o contrast at [facility] () on 05/12/22: Status post interbody spacer at L3-L4 and posterior spinal fusion of L4-L5. Susceptibility artifact renders evaluation of the L4-L5 spinal canal and neural foramina nondiagnostic and mildly limits evaluation at L3-L4 and L5-S1. Multilevel intervertebral disc desiccation and disc height loss, most severe at L4-L5. At L2-L3, 4 mm retrolisthesis of L2 on L3, circumferential disc bulge, and ligamentum flavum thickening produce mild spinal canal stenosis and moderate right and mild left neural foraminal stenosis. At L3-L4, mildly limited evaluation due to metallic artifact from adjacent hardware. 4 mm retrolisthesis of L3 on L4 and bilateral facet hypertrophic changes produce mild spinal canal stenosis and mild right neural foraminal stenosis. No significant left neural foraminal stenosis. At L5-S1, 2 mm retrolisthesis of L5 on S1, circumferential disc bulge, and ligamentum flavum thickening result in mild spinal canal stenosis. The neural foramina are not well assessed due to metallic artifact. MRI of the lumbar spine w/o contrast at on 04/30/22: Postsurgical and degenerative changes. At L2-L3, right-sided laminectomy. Broad-based disc bulge. Endplate osteophytes. Facet degenerative changes. Mild to moderate bilateral foraminal narrowing, worsened from prior study, without significant canal narrowing. At L3-L4, postsurgical changes. Disc bulge. Endplate osteophytes. Within limits of artifact, no evidence for high-grade canal narrowing. Within limits of artifact, possible mild right foraminal narrowing without significant left foraminal narrowing. Findings overall similar to prior study. At L4-L5, postsurgical changes. Endplate osteophytes. Facet degenerative changes. No high-grade canal narrowing with limits of artifact. No high-grade foraminal narrowing within limits of artifact. Findings overall similar to prior study. At L5-S1, broad-based disc bulge. Endplate osteophytes. Facet degenerative changes. No evidence for high-grade canal narrowing within limits of artifact. Possible mild bilateral foraminal narrowing within limits of artifact. Findings overall similar to prior study. CT of the brain without contrast on 03/26/21: No evidence of bleed or mass. Cystic lesion in the clivus centrally and to the right which is stable from examination back in 2010. Likely not clinically significant. EMG of the BLE at [facility] on 11/09/19: There are findings consistent with a polyneuropathy which is severe in degree electrically. This finding may be confounded by lower extremity edema. There are findings suggestive of superimposed S1 radiculopathies which are moderate in degree electrically and more severe on the right. Assessment/Plan Diagnoses and all orders for this visit: Chronic cluster headache, not intractable It is my impression that the patient has cluster headaches. Some of his headaches also have features of migraine, and Nurtec has been effective for abortive treatment supporting the possibility of concurrent migraines. I have considered GCA given the patient's age, but his symptoms do not seem to correlate given the alternating unilateral quality, lack of jaw claudication, lack of constitutional symptoms, and lack of visual changes. Previous brain imaging revealed a cyst which had been stable for many years, though MRI of the brain on 02/16/23 was without mention of cyst, and I believe this is most likely a primary headache disorder. The patient has trialed and failed verapamil, lithium, and duloxetine for headache management. Emgality 120 mg once a month dosing has provided significant benefit however he does admit to a recent exacerbation that did not respond to Nurtec. Nurtec is more effective than Ubrelvy. PLAN: - Refill Emgality 300 mg subcutaneous monthly during acute cluster. Plan to return to 120 mg dosing following acute exacerbation. - Continue Emgality 120 mg subcutaneous once a month for migraine prevention (Hold while taking 300 mg dose during acute cluster period) - Avoid triptans due to cardiovascular risk factors including hypertension - Continue Nurtec 75 mg ODT as needed for acute migraine treatment - May consider IN lidocaine 4% as an abortive in the future if inadequate response to the above. Directions to administer 1 ml (40 mg) intranasally ipsilateral to the headache, may repeat hourly if attack persists or recurs max daily dose 5 ml (200 mg). - I have considered oxygen for abortive therapy though this is not likely to be covered by insurance. - Recommended adequate hydration, sleep hygiene, and regular physical activity as tolerated Chronic migraine without aura without status migrainosus, not intractable ([facility]) See above. Essential hypertension ([facility]) PLAN: - Follow closely with primary care provider for management - The patient's blood pressure is again elevated in the office today. I advised the patient to notify his primary care provider of this for adequate blood pressure management. The patient has been educated on the risks of untreated hypertension History of blood clots Important comorbid condition. The patient reports a history of DVT and pulmonary embolism. He is anticoagulated on Xarelto. Lumbar radiculopathy It is my impression that the patient has lumbar radiculopathy. He reports symptoms clinically consistent with this and is status post lumbar fusion with Dr. Blackmon ( orthopedic surgery). MRI of the lumbar spine (ordered by another provider) on 05/12/22 identified multilevel degenerative changes and postsurgical changes. However, limited by artifact. Physical therapy provided no subjective benefit for the patient's back pain and lower extremity symptoms. He is currently following with pain management for management. PLAN: - I have advised the patient to continue to follow closely with pain medicine and orthopedic surgery for this. He verbalizes understanding - He may consider a second surgical opinion for this and I have advised him to further discuss this with the above providers. Follow up in 2-3 months or sooner if symptoms worsen, fail to improve, or should a new neurological concern arise. Diagnosis prognosis and treatment options discussed in detail. All questions answered. documented in this encounter [facility] 03-20-2024 Note - From: Whitney Jordan RN ([facility] ([facility] To: Mariah Machado CNP; Sent: 03/20/2024 07:25:53 EST Subject: FW: Medication Management Due Date/Time: 03/20/2024 03:27:00 EST Caller Name: LYLY QUINN; Caller Number: Alexander , Oral From: [employer] #[id number] To: Kimi Weiss DO Sent: March 18, 2024 2:27:30 AM WAREHOUSE TEAM MEMBER Subject: Medication Management Due: March 19, 2024 1:11:06 AM WAREHOUSE TEAM MEMBER On Hold Pending Signature Dispensed Drug: DULoxetine (DULoxetine 60 mg oral delayed release capsule), TAKE 1 CAPSULE BY MOUTH DAILY. DO NOT CRUSH OR CHEW Quantity: 90 cap(s) Days Supply: 90 Refills: 0 Substitutions Allowed Notes from Pharmacy: On Hold Pending Signature Dispensed Drug: lisinopril (lisinopril 20 mg oral tablet), TAKE 1 TABLET BY MOUTH DAILY Quantity: 90 tab(s) Days Supply: 90 Refills: 0 Substitutions Allowed Notes from Pharmacy: On Hold Pending Signature Dispensed Drug: ONE TOUCH VERIO FLEX BG MONITOR, USE DIRECTED DAILY Quantity: 1 EA Days Supply: 30 Refills: 0 Substitutions Allowed Notes from Pharmacy: Submitted: Order:![facility] [place]. (ONE TOUCH VERIO FLEX BG MONITOR) See Instructions USE DIRECTED DAILY Qty: 1 EA Days Supply: 30 Refills: 0 Substitutions Allowed Route To [facility] #[id number] Signed by Mariah Machado APRN, CNP 03/20/2024 09:22:00 EST Not Approved: New Rx to follow !-[facility] Request. (ONE TOUCH VERIO FLEX BG MONITOR) USE DIRECTED DAILY Qty: 1 EA Days Supply: 30 Refills: 0 Substitutions Allowed Route To [facility] #[id number] Signed by Mariah Machado APRN, CNP From: Mariah Machado APRN, CNP To: [facility] #[id number] Sent: 03/20/2024 09:23:45 EST Subject: FW: Medication Management Submitted: Complete:lisinopril (lisinopril 10 mg oral tablet) Signed by Mariah Machado APRN, CNP 03/20/2024 09:23:00 EST Submitted: Complete:DULoxetine (DULoxetine 60 mg oral delayed release capsule) Signed by Mariah Machado APRN, CNP 03/20/2024 09:23:00 EST Approved with modifications: DULoxetine (DULOXETINE DR 60MG CAPSULES) TAKE 1 CAPSULE BY MOUTH DAILY. DO NOT CRUSH OR CHEW Qty: 90 cap(s) Days Supply: 90 Refills: 0 Substitutions Allowed Route To [facility] #[id number] Signed by Mariah Machado APRN, CNP Approved with modifications: lisinopril (LISINOPRIL 20MG TABLETS) TAKE 1 TABLET BY MOUTH DAILY Qty: 90 tab(s) Days Supply: 90 Refills: 0 Substitutions Allowed Route To [facility] #[id number] Signed by Mariah Machado APRN, CNP [facility] 02-08-2024 Note - From: Whitney Jordan RN ([facility] ([facility])) To: Kimi Weiss DO; Sent: 02/08/2024 08:11:19 EDT Subject: FW: Medication Management Due Date/Time: 02/08/2024 17:02:00 EDT Caller Name: LYLY QUINN; Caller Number: H , M From: [email or web address] #[id number] To: Kimi Weiss DO Sent: February 07, 2024 4:02:35 PM CDT Subject: Medication Management Due: February 08, 2024 12:04:07 AM CDT On Hold Pending Signature Dispensed Drug: metFORMIN (metFORMIN 500 mg oral tablet), TAKE 1 TABLET BY MOUTH TWICE DAILY Quantity: 180 tab(s) Days Supply: 90 Refills: 0 Substitutions Allowed Notes from Pharmacy: Patient requests 90 days supply From: Kimi Weiss DO To: [facility] #[id number] Sent: 02/08/2024 09:31:55 EDT Subject: FW: Medication Management Submitted: Complete:metFORMIN (metFORMIN 500 mg oral tablet) Signed by Kimi Weiss DO 02/08/2024 09:31:00 EDT Approved metFORMIN (METFORMIN 500MG TABLETS) TAKE 1 TABLET BY MOUTH TWICE DAILY Qty: 180 tab(s) Days Supply: 90 Refills: 0 Substitutions Allowed Route To Pharmacy - [facility] #[id number] Note from Pharmacy: Patient requests 90 days supply [facility] 09-07-2023 Procedure note [facility] 08-04-2023 Note - From: Erica Espinoza ([facility] ([facility])) To: Kimi Weiss DO; Sent: 07/30/2023 09:07:59 EDT Subject: FW: Medication Management Due Date/Time: 07/30/2023 17:37:00 EDT Caller Name: LYLY QUINN; Caller Number: , M Lisinopril 30 mg was refilled last month on 06/24/23 for a 90 day supply with 3 refills. From: [facility] #[id number] To: Kimi Weiss DO Sent: July 29, 2023 4:37:37 PM CDT Subject: Medication Management Due: July 30, 2023 1:56:01 AM CDT On Hold Pending Signature Dispensed Drug: lisinopril (lisinopril 10 mg oral tablet), TAKE 1 TABLET BY MOUTH DAILY Quantity: 90 tab(s) Days Supply: 90 Refills: 0 Substitutions Allowed Notes from Pharmacy: From: Kimi Weiss DO To: [facility] #[id number] Sent: 08/04/2023 06:24:31 EDT Subject: FW: Medication Management Submitted: Complete:lisinopril (lisinopril 30 mg oral tablet) Signed by Kimi Weiss DO 08/04/2023 06:24:00 EDT Approved with modifications: lisinopril (LISINOPRIL 10MG TABLETS) TAKE 1 TABLET BY MOUTH DAILY Qty: 90 tab(s) Days Supply: 90 Refills: 3 Substitutions Allowed Route To Pharmacy - [facility] #[id number] [facility] 04-22-2023 Evaluation note Encounter Date Diagnosis Assessment Notes Apr, Lumbar back sprain (ICD-10 - S33.5XXA) [employer] Other 12-26-2023 Note From: Erica Espinoza ([facility] ([facility])) To: Kimi Weiss DO; Sent: 04/13/2023 07:27:37 EST Subject: FW: Medication Management Due Date/Time: 04/13/2023 09:59:00 EST Caller Name: LYLY QUINN; Caller Number: , M From: [facility] #[id number] To: Kimi Weiss DO Sent: April 12, 2023 8:59:30 AM WAREHOUSE TEAM MEMBER Subject: Medication Management Due: April 13, 2023 12:11:03 AM WAREHOUSE TEAM MEMBER On Hold Pending Signature Dispensed Drug: fenofibrate [...] from Pharmacy: From: Kimi Weiss DO To: [facility] #[id number] Sent: 04/13/2023 07:31:17 EST Subject: FW: Medication [...] Refills: 3 Substitutions Allowed Route To Pharmacy [facility] #[id number] Approved with modifications: rivaroxaban (XARELTO 20MG TABLETS) TAKE 1 TABLET BY MOUTH DAILY Qty: 90 tab(s) Days Supply: 90 Refills: 3 Substitutions Allowed Route To Pharmacy [facility][id number] Evaluation note* Encounter Date Diagnosis Assessment Notes Treatment Notes Treatment Clinical Notes Mar, Chronic, continuous use of opioids (ICD-10 - F11.90) [employer] Other 12-14-2023 Evaluation note* Encounter Date Diagnosis [...] note writ ten by Lawanda Yuen RN, Plastics Factory Worker. Edited and approved by Dr. Charles Claros MD. [employer] Other 10-05-2023 Evaluation note* Encounter Date Diagnosis [...] note writ ten by Doris Weiss LPN, Plastics Factory Worker. Edited and approved by Dr. Charles Claros MD. [employer] Other 10-05-2023 Evaluation note* Encounter Date Diagnosis Assessment Notes Treatment Notes Treatment Clinical Notes Jan, Lumbar back sprain (ICD-10 - S33.5XXA) [employer] Other 06-20-2023 Evaluation note* Encounter Date Diagnosis [...] to patients condition. Saliva sample performed through [facility] lab today, will await confirmatory results. Sep, Other chronic pain (ICD-10 - G89.29) Sep, Other Above note writ ten by Doris Weiss LPN, Plastics Factory Worker. Edited and approved by Dr. Charles Claros MD. [employer] Other 06-20-2023 Evaluation note* Encounter Date Diagnosis Assessment Notes Treatment Notes Treatment Clinical Notes Sep, Lumbar back sprain (ICD-10 - S33.5XXA) [employer] Other 02-13-2023 Evaluation note* Encounter Date Diagnosis [...] note writ ten by Dutch Taylor MA, Plastics Factory Worker. Edited and approved by Dr. Charles Claros MD. [employer] Other 02-13-2023 Evaluation note* Encounter Date Diagnosis Assessment Notes Treatment Notes Treatment Clinical Notes May, Lumbar back sprain (ICD-10 - S33.5XXA) [employer] Other 11-02-2022 Evaluation note* Encounter Date Diagnosis [...] note writ ten by Doris Weiss LPN, Plastics Factory Worker. Edited and approved by Dr. Charles Claros MD. [employer] Other 11-02-2022 Evaluation note* Encounter Date Diagnosis Assessment Notes Treatment Notes Treatment Clinical Notes Feb, Lumbar back sprain (ICD-10 - S33.5XXA) [employer] Other 08-29-2022 Evaluation note* Encounter Date Diagnosis [...] note writ ten by Doris Weiss LPN, Plastics Factory Worker. Edited and approved by Dr. Charles Claros MD. [employer] Other 05-31-2022 Chief complaint Narrative - Reported* An interactive audio and video telecommunication system which permits real time communications between the patient (at the originating site) and provider (at the distant site) was utilized to providethis telehealth service. * Verbal consent was requested and obtained from LYLY QUINN on this date, 09/16/2021 02:15 PM , for atelehealth visit. [facility] Work Phone: [phone]) 473-448504-06-2022 Evaluation note* Encounter Date Diagnosis Assessment Notes [...] note writ ten by Dutch Taylor CMA, Plastics Factory Worker. Edited and approved by Dr. Charles Claros MD. [employer] Other 03-02-2022 Chief complaint Narrative - Reported* An interactive audio and video telecommunication system which permits real time communications between the patient (at the originating site) and provider (at the distant site) was utilized to providethis telehealth service. * Verbal consent was requested and obtained from LYLY QUINN on this date, 06/18/2021 02:15 PM , for atelehealth visit. WW[facility]Tfel[facility] [address] Work Phone: 1(505) 649-528901-05-2022 Chief complaint Narrative - Reported* An interactive audio and video telecommunication system which permits real time communications between the patient (at the originating site) and provider (at the distant site) was utilized to providethis telehealth service. * Verbal consent was requested and obtained from LYLY QUINN on this date, 04/23/2021 10:00 AM , for atelehealth visit. GG-Lpckhed-Esscb [facility] Work Phone: [phone] 875-124601-05-2022 Chief complaint Narrative - Reported* An interactive audio and video telecommunication system which permits real time communications between the patient (at the originating site) and provider (at the distant site) was utilized to providethis telehealth service. * Verbal consent was requested and obtained from LYLY QUINN on this date, 04/23/2021 10:00 AM , for atelehealth visit. ID-Kkxqvloscsxslibt-Yyesq [facility] Work Phone: [phone] Evaluation note* Encounter Date Diagnosis Assessment Notes [...] note writ ten by Lawanda Yuen CMA, Plastics Factory Worker. Edited and approved by Dr. Charles Claros MD. [employer] Other 10-20-2021 Evaluation note* Encounter Date Diagnosis [...] note writ ten by Dutch Taylor MA, Plastics Factory Worker. Edited and approved by Dr. Charles Claros MD. [employer] Other 08-10-2021 NoteSend Summary: Discharge Summary Providers: Provider RoleProvider Name Kimi Alarcon Zachary Note Recipients: Bee Blackmon MD Jackson, Steven P, DO - [phone] [] Discharge: Summary: Admission Date: .26-Nov-2020 10:44:00 [...] visit. Immunizations: Immunizations: 19-Nov-2020 SARS-CoV-2 (COVID-19): Immunizations, [email or web address] COVID-19 Vacc 30 mcg/0.3ml IM suspension, 01-Jul-2020 SARS-CoV-2 (COVID-19): Immunizations, [employer] COVID-19 Vacc 30 mcg/0.3ml IM Suspension, 22-Jul-2020 [...] Follow-Up Appointment Scheduled Date/Time: 09-Dec-2020 11:15 Location: [address] [place] [address] OFFICE [address], Phone Number: Office: Gene BernardoMaranda) - [phone] Discharge Medications: Home Medication lisinopril 20 mg [...] Dx: acute post-operative pain (more content not included)...[facility]08-10-2021 NotePost Operative Note: PreOp Diagnosis: lumbar stenosis with radiculopathy Post-Procedure Diagnosis: same as preop Procedure: 1. L3-4 XLIF 2. 3. 4. 5. Surgeon: Neymar Resident/Fellow/Other Form Building Supervisor: Daniela Anesthesia: GETA Estimated Blood Loss (mL): [...] Completion Last Updated: 10-Dec-2020 17:38 by Bee Blackmon)[facility]08-10-2021 NotePreop Checklist: Preop Checklist: Procedure TypeL3-4 lateral lumbar fusion with instrumentation Temperature C36.4 degrees C Temperature F97.5 degrees F Heart Rate92 beats per minute Respiratory Rate16 breath per minute Blood Pressure Ogdkknzf574 mm/Hg Blood Pressure Lxevtrvpj72 mm/Hg NPO [id number] 22:00 ID Band Onyes Allergy Bandno known [...] Last Updated: 26-Nov-2020 12:09 by Pat Padilla (BENI)[facility]08-10-2021 NoteHistory & Physical Reviewed: I have [...] the note. I personally evaluated the patient [id number] Electronic Signatures: Bee Blackmon) (Signed 09-Dec-2020 19:41) Authored: Note Completion Co-Signer: History & Physical Reviewed, ERAS, Consent, Note Completion Kevin Marshall (Resident)) (Signed 26-Nov-2020 05:52) Authored: History & Physical Reviewed, ERAS, Consent, Note Completion Last Updated: 09-Dec-2020 19:41 by Bee Blackmon)[facility]05-05-2021 Evaluation note* Lymphatic: No significant lymphadenopathyNeurological: A&Wy5Kbulkdnmswrwocaw: Soft, ntndCardiovascular: RRR by peripheral pulsesPsychological: Appropriate mood and behaviorRespiratory/Thorax: Breathing normally on RAHead/Neck: Neck supple, trachea midlineEyes: EOMI, clear scleraSkin: Warm and dry, no rashesMusculoskeletal: L1: SILTL2: SILT Hip flexors 5/5 Right; 5/5 LeftL3: SILT Knee extension 5/5 Right; 5/5 LeftL4: SILT Tib Ant. (Dorsiflexion) 5/5 Right; 5/5 LeftL5: SILT EHL 5/5 Right; 5/9AfriQ5: SILT Planter flexion 5/5 Right; 5/5 LeftConstitutional: Awake/alert/oriented x3, no distress, alert and cooperative [facility]02-01-2020 History of Present illness Narrative* 55-year-old [...] He was evaluated by another surgeon in [facility], they did recommend surgery however he has a history involving multiple DVTs and pulmonary embolism. After his last operation he was not bridged preoperatively on Lovenox, and he did not receive any anticoagulation until 2 weeks after surgery. Despite having an IVC filter in place he through another pulmonary embolism. He follows up with a manual qa tester in [place]. * He is otherwise in good health. [...] 26. I have reached out to his manual qa tester to confirm plans for perioperative anticoagulation. He is fully vaccinated for COVID-19. * This note was dictated using speech recognition software and was not corrected for spelling or grammatical errors. SI-Lwejwwwfbjuq-Idabhy Work Phone: 1(391) 685-727102-01-2020 History of Present illness Narrative* 55-year-old male [...] He was evaluated by another surgeon in [facility], they did recommend surgery however he has a history involving multiple DVTs and pulmonary embolism. After his last operation he was not bridged preoperatively on Lovenox, and he did not receive any anticoagulation until 2 weeks after surgery. Despite having an IVC filter in place he through another pulmonary embolism. He follows up with a manual qa tester in [place]. * He is otherwise in good health. [...] 26. I have reached out to his manual qa tester to confirm plans for perioperative anticoagulation. He is fully vaccinated for COVID-19. * This note was dictated using speech recognition software and was not corrected for spelling or grammatical errors. CB-Kygjefzyxerw-Zqbnfd Work Phone: 1([phone]) 535-195501-06-2019 History of Present illness Narrative* Patient is [...] for spelling or grammatical errors. [facility] Work Phone: 1([phone]) 835-117912-18-2018 History of Present illness Narrative* Patient is [...] for spelling or grammatical errors. [facility] Work Phone: 1(878) 960-888411-22-2018 History of Present illness Narrative* Patient is [...] not corrected for spelling or grammatical errors. PV-Ovackhazxfhz-Ylirlxhn Work Phone: Evaluation note* Diagnosis Onset Date Resolution Status Chronic pain acute Chronic, continuous use of opioids acute Other spondylosis with radiculopathy, lumbar region [facility] Work Phone: Evaluation note* Diagnosis Onset Date Resolution Status Chronic pain acute Chronic, continuous use of opioids acute Other spondylosis with radiculopathy, lumbar region acute Chronic pain acute Chronic, continuous use of opioids acute Other spondylosis with radiculopathy, lumbar region [facility] Work Phone: Evaluation note* Diagnosis Chronic cluster headache, not intractable- Primary Essential hypertension (CMS/HCC) Unspecified essential hypertension History of blood clots documented in this encounter [facility] N[facility]ative - Reported* Type Description Date Medical History GERD (gastroesophageal reflux di sease) Medical History Benign hypertension Medical History Other pulmonary embo lism without acute cor pulmonale, unspecified chronicity Medical History Cluster headache Surgical History CHOLECYSTECTOMY Surgical History umbilical hernia repair Surgical History 3 BACK SURGERIES Surgical History back surgery 1995 Surgical History knee arthroscopy Surgical History Bilateral inguinal hernias shannon martinez w/ AVV 06/06/2015 Surgical History LEFT knee arthroscopy x's 3 (un sure of dr) Hospitalization History pulmonary embolism 2 alfa [employer] Other History of Present illness Narrative* Patient [...] not corrected for spelling or grammatical errors GS-Xezveduoifyr-Rvnptbuz Work Phone: History of Present illness Narrative* [...] * Lives with: Spouse * 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[employer] * Sleep patterns: 8hrs YANNI on CPAP * Alcohol: 1-2 on the weekends * Tobacco: None * Recreational Drugs: None * Exercise: Therapy for back 2 x weekly MY-Dxxntsm-Izkcf [facility] Work Phone: History of Present [...] and V8 * L - yogurt, granola (iraqi yogurt, 1/4 cup granola), cream of corn 1 cup * Snack - pop corner 100 calorie bag * D - veggie burger with uruguayan cheese & onion (2 burgers) low calorie [...] * Lives with: Spouse * 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 * Continued topiramate as adjunct to diet/exercise last visit. 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 [facility] Work Phone: History of Present illness Narrative* [...] is going to do this in the [place] area at [facility], we will have them push the results to PACS. He shouldcall the office for the results of the MRI. * In the meantime I am going to put him on some prednisone. * I will speak with him after the MRI is complete. * This note was dictated using speech recognition software and was not corrected for spelling or grammatical errors. [facility] Work Phone: Hospital Discharge instructions* Activity:activity with [...] Follow-Up AppointmentScheduled Date/Time: 09-Dec-2020 11:15Location: [address], Phone Number: Office: ([place], Sec.) - [phone]: Please Call Tara Gonzalez RN at [phone] For Any Post-Op Questions [facility] Reason for Referral: L3-4 fusion [facility] Chief Complaint * A telephone visit [...] section and content) DATE CREATED AUTHOR 09/29/2021 [facility] DATE CREATED AUTHOR AUTHOR'S ORGANIZ ATION 05/01/2022 [facility] DATE CREATED AUTHOR AUTHOR'S ORGANIZ ATION 05/05/2022 [facility] DATE CREATED AUTHOR AUTHOR'S ORGANIZ ATION 05/16/2022 [facility] DATE CREATED AUTHOR AUTHOR'S ORGANIZ ATION 06/24/2022 [facility] DATE CREATED AUTHOR AUTHOR'S ORGANIZ ATION 07/28/2022 [facility] DATE CREATED AUTHOR AUTHOR'S ORGANIZ ATION 09/16/2023 [facility] DATE CREATED AUTHOR AUTHOR'S ORGANIZ ATION 01/17/2024 [facility] DATE CREATED AUTHOR AUTHOR'S ORGANIZ ATION 03/29/2024 [facility] DATE CREATED AUTHOR AUTHOR'S ORGANIZ ATION 03/30/2024 [facility] EPIC REASON FOR VISIT (unrecogniz ed section and content) Reason Comments Migraine Headache Cluster Back Pain Care Teams (unrecognized sec tion and content) Team Status: Active Member Role Status Dates Kimi Weiss DO Primary Care Provider Active Team Status: Inactive Member Role Status Dates Kimi Weiss DO Primary Care Provider Active Start: August 05, 2023 End: August 05, 2023 Charles Claros MD Attending Provider Active Sta rt: August 05, 2023 End: August 05, 2023 Team Status: Inactive Member Role Status Dates Kimi Weiss DO Primary Care Provider Active Start: September 07, 2023 End: September 07, 2023 Charles Claros MD Attending Provider Active Sta rt: September 07, 2023 End: September 07, 2023 Team Status: Active Member Role Status Dates Kimi Weiss DO Primary Care Provider Active Start: September 07, 2023 Charles Claros MD Attending Provider, Other Provider Active Start: September 07, 2023 Team Status: Inactive Member Role Status Dates Kimi Weiss DO Primary Care Provider Active Start: September 15, 2023 End: September 15, 2023 Charles Claros MD Attending Provider Active Sta rt: September 15, 2023 End: September 15, 2023 Team Status: Active Member Role Status Dates Kimi Weiss DO Primary Care Provider Active Start: September 15, 2023 Charles Claros MD Attending Provider Active Sta rt: September 15, 2023 [employer] Winder Relationship Specialty Start Date End Date Kimi Weiss MD [address] [place] [address] PCP - General Family Medicine 08/09/23 [employer] Armature Winder Relationship Specialty Start Date End Date Kimi Weiss MD [address] [place] [address] PCP - General Family Medicine 08/09/23 Goals (unrecognized section and content) Goals may [...] BE BASED ON THE PRIMARY CLINICAL RECORDS. [facility] [employer] [facility]. provides no warranty or guarantee of the accuracy or completeness of information in this document.
--- NOTE | 2024-04-02 08:50 | CT_ITS ---
[address] [address] Patient Name: LYLY KIDD MRN: [id number] date: 1965 Sex: M Assigned Patient Location: ER Current Patient Location: ER Accession/Order Number: [id number] Exam Date: 04/02/2024 09:45 Report Date: 04/02/2024 10:21 At the request of: STEFFI WYNN Procedure: CT angio chest EXAMINATION: CT angio chest HISTORY: r/o PE COMPARISON: 09/10/2023 TECHNIQUE: Multi-planar CT images were created with IV contrast. Axial, Coronal, and Sagittal images. Dose reduction techniques were achieved by using automated exposure control and/or adjustment of mA and/or kV according to patient size and/or use of iterative reconstruction technique. FINDINGS: LUNGS: Mild dependent opacities in the right lung base. No significant pulmonary nodule or mass PLEURA: No mass, effusion, or pneumothorax. VASCULATURE: No central pulmonary embolic disease KAYLA: No mass or adenopathy. MEDIASTINUM: No mass or adenopathy. CARDIAC: No enlargement or pericardial effusion Coronary arteries: Absent calcifications AORTA: No aneurysm or dissection. CHEST WALL: No mass or axillary adenopathy. BONES: No bone lesion or fracture. LIMITED ABDOMEN: Diffuse hypoattenuation consistent with hepatic steatosis OTHER: Negative. CT/CT angio chest IMPRESSION: No central pulmonary thromboembolic disease Electronically authenticated by: DANIEL BENITEZ Date: 04/02/2024 10:21
--- NOTE | 2024-04-02 08:52 | ECG_ITS ---
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
[2024-04-02 08:56] LABS: Basophils Percent Auto 0.5 % (0.2-2.0); Eosinophils Absolute Auto 0.1 10^3/uL (0.0-0.7); Eosinophils Percent Auto 1.5 % (0.9-7.0); Hematocrit 44.1 % (42.0-54.0); Hemoglobin 15.5 g/dL (14.0-18.0); Immature Granulocytes Abs Auto 0.04 10^3/uL (0.00-0.03); Immature Granulocytes Pct Auto 0.5 % (0.0-0.5); Lymphocytes Absolute Auto 2.6 10^3/uL (1.2-3.8); Lymphocytes Percent Auto 30.1 % (20.5-60.0); Mean Corpuscular HGB Conc 35.1 g/dL (29.9-35.2); Mean Corpuscular Hemoglobin 31.3 pg (25.9-34.0); Mean Corpuscular Volume 88.9 fL (80.0-94.0); Mean Platelet Volume 9.3 fL (9.5-13.5); Monocytes Percent Auto 11.8 % (1.7-12.0); Neutrophils Absolute Auto 4.7 10^3/uL (1.4-6.5); Neutrophils Percent Auto 55.6 % (43.0-75.0); Platelet Count 291 10^3/uL (150-450); Red Blood Count 4.96 10^6/uL (4.70-6.10); Red Cell Distribution Width 12.2 % (11.0-15.0); White Blood Count 8.5 10^3/uL (4.0-11.0)
[2024-04-02] MEDS: IPRATROPIUM/ALBUTEROL SULFATE 3 ML AMPUL.NEB IH ×2 (09:01)
--- NOTE | 2024-04-02 09:02 | ED_ITS ---
HPI - Chest Pain General Chief Complaint: Chest Pain Stated Complaint: CHEST PAIN, SOB, WEAKNESS Time Seen by Provider: 04/02/24 08:41 Source: patient Mode of arrival: Wheelchair Limitations: no limitations History of Present Illness HPI narrative: 59-year-old male to the emergency department with chief complaint of cough, chest pain, malaise, decreased appetite. 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 No missed doses. He had onset of symptoms over the last few days. He was seen in urgent care and started on doxycycline for presumed atypical pneumonia. He reports he is not improving. His shortness of breath is worsened. He reports subjective fever, sweats, chills. No nausea or vomiting. Pain is sharp and on the right side of his chest. Related Data Home Medications ?Medication ?Instructions ?Recorded ?Confirmed cyclobenzaprine 10 mg tablet 10 mg PO Q12H PRN back pain 04/02/24 04/02/24 doxycycline hyclate 100 mg capsule 100 mg PO Q12H 04/02/24 04/02/24 duloxetine 60 mg capsule,delayed 60 mg PO DAILY 04/02/24 04/02/24 release fenofibrate nanocrystallized 48 mg 48 mg PO DAILY 04/02/24 04/02/24 tablet galcanezumab-gnlm 120 mg/mL 120 mg subcut .monthly 04/02/24 04/02/24 subcutaneous pen injector (Emgality Pen) galcanezumab-gnlm 300 mg/3 mL (100 300 mg subcut .monthly 04/02/24 04/02/24 mg/mL x 3) subcutaneous syringe (Emgality) lisinopril 20 mg tablet 20 mg PO DAILY 04/02/24 04/02/24 metformin 500 mg tablet 500 mg PO DAILY 04/02/24 04/02/24 rimegepant 75 mg disintegrating 75 mg PO PRN 04/02/24 04/02/24 tablet (Nurtec ODT) rivaroxaban 20 mg tablet (Xarelto) 20 mg PO Q24H 04/02/24 04/02/24 semaglutide 0.25 mg or 0.5 mg (2 0.25 mg subcut .weekly 04/02/24 04/02/24 mg/3 mL) subcutaneous pen injector (Ozempic) Previous Rx's ?Medication ?Instructions ?Recorded ondansetron 4 mg disintegrating 4 mg PO Q6H PRN nausea and 09/10/23 tablet vomiting #12 tabs albuterol sulfate 90 mcg/actuation 1 inh inhalation Q6H PRN shortness 04/02/24 aerosol inhaler of breath or wheezing #6.7 grams amoxicillin 875 mg-potassium 1 tab PO Q12H #14 tabs 04/02/24 clavulanate 125 mg tablet methylprednisolone 4 mg tablets in 4 mg PO DAILY #21 ea 04/02/24 a dose pack (Medrol (Samm)) Allergies Allergy/AdvReac Type Severity Reaction Status Date / Time No Known Drug Allergies Allergy Verified 09/10/23 13:24 Review of Systems ROS Status of ROS 10 or more systems reviewed and unremark able except as noted in history and below Exam Narrative Exam Narrative: VITALS: I have reviewed the triage vital signs. GENERAL: Anxious, coughing adult male. at the bedside. NEURO: Alert and oriented. Moves all extremities. Face is symmetric and expressive. EYES: PERRL. No scleral icterus or conjunctival injection. No discharge. HENT: Normocephalic, atraumatic. Hearing is grossly intact. Nares grossly patent and without discharge. Mucous membranes moist. NECK: No JVD. Patient moves neck without restriction. CARDIO: Rhythm regular. Normal rate. No murmur, rub, or gallop. Pulses equal bilaterally in the upper and lower extremity. No lower extremity edema. PULM: Rhonchi, wet cough. Trace wheezing. Mild increased work of breathing. Mild conversational dyspnea. GI/: Abdomen is soft and non-tender. Normoactive bowel sounds. EXTREMITIES: Symmetric muscle bulk. No joint swelling. No clubbing, cyanosis, or deformity. SKIN: Warm and dry. Normal turgor. No rash or lesions appreciated. PSYCH: Anxious Constitutional Vital Signs, click to edit/add: Last Vital Signs Temp 97.6 F 04/02/24 08:40 Pulse 106 H 04/02/24 10:50 Resp 14 04/02/24 10:50 BP 111/94 H 04/02/24 10:30 Pulse Ox 98 04/02/24 10:50 O2 Del Method Room Air 04/02/24 09:02 Course Vital Signs Vital signs: Vital Signs Pulse Oximetry 100 04/02/24 08:34 Temperature 97.6 F 04/02/24 08:40 Pulse Rate 106 H 04/02/24 10:50 Respiratory Rate 14 04/02/24 10:50 Blood Pressure 111/94 H 04/02/24 10:30 Pulse Oximetry 98 04/02/24 10:50 Oxygen Delivery Method Room Air 04/02/24 09:02 MDM - Chest Pain MDM Narrative Medical decision making narrative: 59-year-old male to the emergency department chief complaint shortness of breath. Vital stable, the patient is afebrile. He is coughing on exam. Lungs with rhonchi as well as some trace wheezing. Patient is concerned about pulmonary embolism given his history. Will obtain CTA chest, basic labs. Breathing treatments for his bronchospasm. Lab work reviewed and noted. Troponin negative. CTA without evidence of pulmonary embolism. He does have right lower lobe pneumonia. He felt much improved after the breathing treatment. Vitals remained stable. Patient is appropriate for outpatient treatment for commune acquired pneumonia. Will broaden him to Augmentin and doxycycline which is appropriate coverage in the setting of him being diabetic and having consolidative pneumonia. He will continue his Mucinex DM. Medrol Dosepak and albuterol prescribed for bronchospasm. Return precautions were discussed. All questions were answered. He has follow-up with his doctor in a few days already. All questions were answered. The patient was discharged home. Medical Records Data Attestation: I reviewed the patient's medical records. Lab Data Attestation: I reviewed the patient's lab results. Labs: Lab Results 04/02/24 Range/Units 08:45 WBC 8.5 (4.0-11.0) 10^3/uL RBC 4.96 (4.70-6.10) 10^6/uL Hgb 15.5 (14.0-18.0) g/dL Hct 44.1 (42.0-54.0) % MCV 88.9 (80.0-94.0) fL MCH 31.3 (25.9-34.0) pg MCHC 35.1 (29.9-35.2) g/dL RDW 12.2 (11.0-15.0) % Plt Count 291 (150-450) 10^3/uL MPV 9.3 L (9.5-13.5) fL Neut % (Auto) 55.6 (43.0-75.0) % Lymph % (Auto) 30.1 (20.5-60.0) % [place] % (Auto) 11.8 (1.7-12.0) % Eos % (Auto) 1.5 (0.9-7.0) % Baso % (Auto) 0.5 (0.2-2.0) % Neut # (Auto) 4.7 (1.4-6.5) 10^3/uL Lymph # (Auto) 2.6 (1.2-3.8) 10^3/uL [place] # (Auto) 1.0 H (0.3-0.8) 10^3/uL Eos # (Auto) 0.1 (0.0-0.7) 10^3/uL Baso # (Auto) 0.0 (0.0-0.1) 10^3/uL Abs Immat Gran (auto) 0.04 H (0.00-0.03) 10^3/uL Imm/Tot Granulo (auto) 0.5 (0.0-0.5) % Sodium 139 (136-145) mmol/L Potassium 4.4 (3.5-5.1) mmol/L Chloride 102 (98-107) mmol/L Carbon Dioxide 23.8 (21.0-32.0) mmol/L Anion Gap 17.6 BUN 10.0 (7.0-18.0) mg/dL Creatinine 1.13 (0.70-1.30) mg/dL Est GFR ( Amer) >60 (>=60 mL/min/1.73m^2) Est GFR (Non-Af Amer) >60 (>=60 mL/min/1.73m^2) BUN/Creatinine Ratio 8.8 Glucose 169 H (74-106) mg/dL Calcium 9.8 (8.5-10.1) mg/dL Troponin I High Sens <4.0 L (4.0-76.1) pg/mL Imaging Data CT scan - chest: Attestation: I have reviewed the pertinent imaging results. Radiologist's impression: ITS Impressions Chest CTA 04/02/24 08:50 IMPRESSION: No central pulmonary thromboembolic disease Electronically authenticated by: DANIEL BENITEZ Date: 04/02/2024 10:21 ECG Data Attestation: I personally reviewed and interpreted this ECG as follows: (Normal sinus rhythm at a rate of 94. No STEMI. Normal QTc at 430.) Heart Score History: Slightly/Non-Suspicious ECG: Normal Age: >45-<65 years Risk Factors: >3 Risk Factors/ HX of CAD:2 Troponin: <Normal Limit Total Heart Score Recommendations & Risks:: 3 Discharge Plan Discharge Chief Complaint: Chest Pain Clinical Impression: Community acquired pneumonia Patient Disposition: Home, Self-Care Time of Disposition Decision: 10:57 Condition: Good Mode of Transportation: Private Vehicle Prescriptions / Home Meds: New methylprednisolone [Medrol (Samm)] 4 mg tablets,dose pack 4 mg PO DAILY Qty: 21 0RF Rx Instructions: TAKE PER DOSEPAK INSTRUCTIONS amoxicillin-pot clavulanate 875-125 mg tablet 1 tab PO Q12H Qty: 14 0RF albuterol sulfate 90 mcg/actuation HFA aerosol inhaler 1 inh inhalation Q6H PRN (Reason: shortness of breath or wheezing) Qty: 6.7 0RF No Action ondansetron 4 mg tablet,disintegrating 4 mg PO Q6H PRN (Reason: nausea and vomiting) Qty: 12 0RF cyclobenzaprine 10 mg tablet 10 mg PO Q12H PRN (Reason: back pain) metformin 500 mg tablet 500 mg PO DAILY doxycycline hyclate 100 mg capsule 100 mg PO Q12H lisinopril 20 mg tablet 20 mg PO DAILY duloxetine 60 mg capsule,delayed release(DR/EC) 60 mg PO DAILY fenofibrate nanocrystallized 48 mg tablet 48 mg PO DAILY Xarelto 20 mg tablet 20 mg PO Q24H Emgality Pen 120 mg/mL pen injector 120 mg SUBCUT .monthly Emgality Syringe 300 mg/3 mL (100 mg/mL x 3) syringe 300 mg SUBCUT .monthly Nurtec ODT 75 mg tablet,disintegrating 75 mg PO PRN Ozempic 0.25 mg or 0.5 mg (2 mg/3 mL) pen injector 0.25 mg SUBCUT .weekly Print Language: Setswana Instructions: How to Use a Metered-Dose Inhaler (ED), Community Acquired Pneumonia (ED) Additional Instructions: Call the office of your primary care doctor to arrange for follow-up within the above-stated timeframe. Your ED visit was focused on your acute issue and does not replace primary care. You should review your labs, imaging, and diagnoses from this ED visit with your primary care physician. There may be non-emergent/ incidental findings that need further evaluation. You should review your vital signs including blood pressure with your PCP. If you were prescribed medications you should discuss possible side-effects and drug interactions with your pharmacist. Call 911 or go to the nearest Emergency Department if you develop any new or worsening symptoms. Seek immediate medical attention if you develop: worsening shortness of breath, difficulty breathing, chest pain, nausea, vomiting, weakness, numbness, tingling, excessive sweating, loss of motion in your arms or legs, or any new or worsening symptoms. Referrals: KIMI JACINTO [Primary Care Provider] - 1 week
[2024-04-02 09:13] LABS: Anion Gap 17.6; BUN Creatinine Ratio 8.8; Calcium 9.8 mg/dL (8.5-10.1); Carbon Dioxide 23.8 mmol/L (21.0-32.0); Chloride 102 mmol/L (98-107); Estimated GFR (African America >60 (>=60 mL/min/1.73m^2); Estimated GFR (Non-African Ame >60 (>=60 mL/min/1.73m^2); Glucose 169 mg/dL (74-106); Potassium 4.4 mmol/L (3.5-5.1); Sodium 139 mmol/L (136-145); Troponin I High Sensitivity <4.0 pg/mL (4.0-76.1)
== END 2024-04-02 11:16 | disposition home or self-care (01) ==
PROVIDERS: Emergency Provider Student in an Organized Health Care Education/Training Program; PCP Family Medicine
DX: J18.9 Pneumonia, unspecified organism (principal); Z86.711 Personal history of pulmonary embolism; Z79.01 Long term (current) use of anticoagulants; R06.02 Shortness of breath; E11.9 Type 2 diabetes mellitus without complications; Z79.84 Long term (current) use of oral hypoglycemic drugs; Z79.85 Long-term (current) use of injectable non-insulin antidiabetic drugs
CPT/HCPCS: 36415; 71275; 80048; 84484; 85025; 93005; 94640; 99285; Q9967

== ENCOUNTER 2024-04-06 11:16 | Observation (INO) | payer OTHER, SELFPAY ==
[2024-04-06] VITALS (16 sets, daily range): BP systolic 112–153; BP diastolic 71–101; PULSE 97–122; TEMP 36.4–37.1; O2SAT 95–100; BMI 35.0; BMI 34.5
--- OUTSIDE RECORDS SUMMARY | 2024-04-06 11:24 | XMS_ITS | CCD ---
Author Organization [facility] Care Team Providers Care [address] Name Role Phone Unknown, Referring Provider Unavailable [...] Care UnavailKimi Webber MD Primary Care Provider THALIA SANDY Attending Unavailable KARON RODRIGUEZ Attending Unavailable KARON RODRIGUEZ Attending Unavailable KARON RODRIGUEZ Referring Unavailable Kimi Weiss Primary Care Unavailable Georgina Santana Admitting Unavailable Georgina Santana Attending Unavailable Kimi Weiss Primary Care Unavailable Kimi Weiss Attending Unavailable Kimi Weiss Referring Unavailable Kimi Weiss Primary Care Unavailable Abhishek, Kimi P Attending Unavailable Kimi Weiss Primary Care Unavailable Kimi Weiss Attending Unavailable Kimi Weiss Attending Unavailable Kimi Weiss Primary Care Unavailable Kimi eWiss Primary Care Unavailable Kimi Weiss Attending Unavailable Kimi Weiss Primary Care Unavailable Abhishek, Kimi Santos Attending Unavailable Kimi Weiss Referring Unavailable Kimi Weiss Primary Care Unavailable Kimi Weiss Attending Unavailable Kimi Weiss Admitting Unavailable Kimi Weiss Attending Unavailable Kimi Weiss Primary Care Unavailable Allergies Allergy Classification Reported Allergen(s) Allergy Type Date of Onset Reaction(s) Facility (1 source) ALLERGIES NOT ON FILE; Translations: [ALLERGIES NOT ON FILE] Propensity to adverse reactions (disorder) [facility] Medications Current Medications Medication Drug Class(es) Dates [...] Start: 04-08-2021 take 1 capsule by mo [facility] every four hours as needed for headache Qzbtvqmfyo-MYNY-Dhlygouw 50-300-40 MG Oral Capsule TAKE 1 CAPSULE [...] 12:03pm February 28, 2020 1:49pm HYDROcodone-acet aminophen ([place]) 5-325 MG tablet Take by mouth Active [...] 13, 2019 11:45pm Blood Glucose Monitoring Suppl (iGlueuch Verio Flex System) w/Device kit (2 sources) [...] MIGRAINE 8 tablet 2 03/20/2024 Active sennosides, intermediate 8.6 mg oral tablet (1 source) Start: [...] 1 PATCH TOPICAL Daily June 15, 2019 1:00am February 28, 2020 [...] cause serious breathing problems. polyethylene glycol 3350 41091 mg powder for oral solution (3 sources) [...] 1 Ordered: 16-Sep-2021 Marisol Lacey Start : 5-Ck-2022 Active Start: 04-23-2021 take 2 tablets by mo [facility] twice daily Topiramate 25 MG Oral Tablet TAKE 2 TABLET Twice daily Quantity: 120 Refills: 2 Ordered: 02-Jun-2021 Lisha [employer] MANAGER, Marisol Start : 23-Apr-2021 Active Start: 04-23-2021 [...] Quantity: 120 Refills: 2 Ordered: 23-Apr-2021 Lisha [employer] MANAGER, Marisol Start : 23-Apr-2021 Active Triamcinolone (13 [...] region] Episodic Other aftercare (1 source) Other utility inspector (current) drug therapy; Translations: [OTH BUS BOY CURRENT DRUG THERAPY] Onset: 2 Episodic Other aftercare (1 source) heat reader (current) use of anticoagulants; Translations: [BUS BOY CURRNT USE ANTICOAGULANTS] Onset: 2 Episodic Other aftercare (4 sources) Long-term current use of anticoagulant; Translations: [halfway (current) use of anticoagulants] 02-28-2020 Episodic Other [...] sources) Chronic pain; Translations: [Other chronic pain] 04-15-2024 Chronic Other nervous system disorders (16 sources) [...] Unclassified (2 sources) L3-4 XLIF WITH PLATE 07-16-2021 Comment on above: L3-4 XLIF WITH PLATE Unclassified (1 source) LUMBAR SPINE FU 12-09-2020 Comment on above: LUMBAR SPINE FU Unclassified (1 source) Lumbar stenosis 11-26-2020 Unclassified (1 source) Neurogenic claudication due to lumbar spinal stenosis 12-10-2020 Viral infection (1 source) COVID-19; Translations: [COVID-19] Onset: Past or Other Problems Problem Classification Problem Date Documented Da te Episodic/Chronic Other nervous system disorders (3 sources) Paresthesia; Translations: [Paresthesia of skin] Onset: 08-08-2023 08-08-2023 Episodic Other nutritional; endocrine; and metabolic disorders (10 sources) Severe obesity; Translations: [Morbid obesity] Resolved: 09-16-2021 Chronic Results Test Name Value Interpretation Reference Range Facility Rad - Other Radiology Report on 04-04-2024 Rad - Other Radiology Report [id number] [facility] Outside Recordson 04-03-2024 Outside Records [id number]#[id number] [facility] Diabetes Noteon 03-21-2024 Diabetes Note Patient scheduled fo r RN class, patient reports not feeling well. Rescheduled for next class available: May 09, 2024. Follow-up scheduled for April was also rescheduled to May 30, 2024. Patient reminded of March 29, [address] class. Verbalizes understanding. [Electronically Signed on: 03/21/2024 10:55 EST] Erica Quiroz RN, CDE BSN [Verified on: 03/21/2024 10:55 EST] Erica Quiroz RN, CDE BSN [facility] Coding Summaryon 03-13-2024 Coding Summary HTMLBase 64 PazxomjrXHo3kRc+PGhlYWQ+P M8HEJXbA21kiBYgtP7pA3DXZQ lOSywgQVBQTElOSyIgbmFtZT1 kaXNjZXJu IC8+XO6yHFYcVxvogDHav5I1e HG3A25avj9mGRvgpVB8OQTkZl Hnicjty6exuVe1KTppRvtaAiK t EUHzeI69TSP6uO89Ac76lECur PCxl0izqDm0GxQxQPXmGEG7dJ bwBAtzi7AeRGCyB02cxQPsz5Y 6 UWXlyIbvqKTwSrYimOE7wN8iN Ednvdxho6sulplfYsv9kc28jZ Fiq6S6oYD1U9YzvdM3YYRpdLK g PgmucJSIzW1wklogt2suyncfX iQyNAUrEAw8OZu8AYXjbMteLn OgTF70UFM1SWXzulAgH9PhOXS s xCtpRcK4i0N8Vf1LP3NWSeyqD 1VNTUFSWTwvdGQ+ZC52kv10F7 ZuEfyeWic2BMPlCWJ6tFT5lA3 n VHTtURivr9Q1yKY0G1XqkwZpi j0kz3hbLQFnFQvvQ42iwYYrf7 J3ODRmcUM5TMRdxUnmMfUdnT6 3 Oyc+BNAgnCwjt0CqFvurg3nda 2buxNs4UadlDSTilpGfaInlUI C1e0OjLz4gIRGomNK8rSK6tN1 i OsJrDmV7XNrmQ709EkGcoVEkR wcaU97fO8NcwTT+XNCpNoc5TY EnyJacPM1bF0HoLALshyttyZW m oMvrOD8dDABxrxrwNWKbjK5xZ SXjP6f5LsKfOwN4QIfaJ8DmKR SfajznWo74jJ2aYlDjTgX7TBx u B6QabbE9GHSfqHBiTSifOYX9V 05nh7N4UDVrVOBiMNI7vYE1nW 1hbGlnbjogbGVmdDsgdmVydGl j RPwmHPxnY560RHZwoAhuVqMcL GluZyBEYXRlOiAgMTEvMjUvMj AyNDwvdGQ+RXKrAJX2uHegOID n uSGtKIkbCn3kaQmibEojFK9vK SLjxgvfIZZmqQ2cWIJxvICnlH fzRM5nPTDvptwxm285QbRdJIK 0 YLPgmQTbD5RuxR1nBqEaNEVgA ZIgQ1HncCBwWQdhZ954TByoKo Z4FCBiprIkK5EdNBBvwJumKsY 0 e2Z6Zp3Ik0FyrwcnD2UkbZMgR uUzQmctLYa2F7HcTbiwcUT+PC 95IYIeBG14GEg1HZZ2lMsoXOo i RBCfR6NcqK8kTjKpBTUyKJTqE yc+PHRhYmxlIHdpZHRoPScxMD FiRiOsxJbkOS4jOj2tQZOvAWY v eKqdlOGhYsPas3fqLVCxVYfuD Q3teDkvE7DpdTP8OTPhw4o3Kf 64W78fV4MzuPX+QQZpsSC7hYL 0 uB2tAfNbFxW6EWzsR229TbQyi RGyXbhop1yvw0moqUp6GsT8QW BrigCvaCdmNFM8s9QpHe17R95 s IHdpZHRoPSIxNSUiIHZhbGlnb p3chG1fNy4+HALqlVC6iFY7bA 8rKsLhTiB7BVwhK713CbEusDF v Yosof9iis3aazUc8RyZhBICga dRgpBwbCZC2p8NyVz51K8ZdyO ubs6ZnCem2ph84cIGno9K0xNB 9 X7FlOCSxxtzmtXLftSkiQF0kZ SRqlajoFJYajM4rWDQhH0z4Kq CzZaY9MYnvN1ItmxL6GGMogJN g OPPycTZBrX8swttye3lzvoxjG dVuATRlWQr1OAe3YDZlrMfsGd DhOAW6BoZ9KXF6vTGoaH6haBa n imfhyJ4gJqy+PZB9tSYyiHDFX R6iVxodtIX+SIYfKDD7lTglYY aoWSTdbS8nRGOqA7b7FvUlJeX 1 FCgnP4YdvkH2PCJrfFXnKIJki WEJmA8pdufox4ovumuiWyYoDM ZzDPf9UDu5NNHeoBpvAeZuWHB 0 QdT0FVZ7gBAqvX4rjNjblepqu G9wOyc+BfhfvLlwOQT7TMe1W0 FzGca4BJNjmVldUE4tuKMmYMg u Ji1dkWscdRiyXU0eIVWolvqdf 006IgFhr6laHSIpyEOdGOegXM W2X05cc9P7INEpQETwTAQ0zSH 4 fP7vcEhwftxgtAUpzHtqfnOyh MygIMdcTLksD209GEWltJrxHa DoTPt8A0FwIsm6KRChbTohYA5 n bKCrBIxuNv9ioPwflPikSN6mI CGkunjqk186DxKim8esEOMojQ WrYZhxASX5D87lr1Y5LFCmFGP w JCN2sFL8hD1qwRjzrnaovDIee EgbpdIkjKwvEHniWOdbK125CK HzyFnwCeTprOj0Y5FeSqc7IHJ z xThcFI9uiPSjRDnwLl7hhDyae NteKI2hCVRlhrava392DlEer5 haRPAhfFBxDFmbWFE4W23ow3Y 6 DKYgZWEfHYF8cNN1iN7kiShnr jogbGVmdDsgdmVydGljYWwtYW rtS702BQLseMufDoNrbCmzmeU g TMwiIUn2U0GsPwbljKY+PC90Y BRrRT25yYUgeHFgk8fpeQa1Zq ZmBPRyPHN5vIuuNLgdo7UsRCX t Z27wnXErr2T4SLRodKfvfLYtX xKmiSC8xS3iJSrieerzx1hxlj kyBowuq0zxsl68dL12H28oLGa p NEHgIKMwMJNfYVOlrEfwop9cl G9wIi8+YNVgiUJ1oRO6xH8pUP HqBqA5FFcvW365RlBxlGZhGbw j b8jga9lhmIt3HcA1XYZkvpYyi BuvGEV9c9YyQv30K71kPIzwMI XzJBKeGNPgNSHnvKlljy4hzK3 w Ii8+VNJlbPT1oWK3dM4rZaYsE cB4KVdoA215YfIkuOXeHligS5 7dI8EqoTM+EARzYra5JSNwkXd s SB3teUFkFLiyXa5pIJF9FlFfU zEdZBccA9OkNBYtysfejectqC V7BGOrURWlgF82Mt2cyLebUFZ w rDZMyZ4ohcfat8tjafyuEsJbO IWoFXd6JDs1AEFsbRexKjVhHJ Q6BrG3XYR4kXCsxE7ugCkckuc g rW9uX1OkRDFxttooZn44pX7nW uMnUlB6LVojFfj+VtrBN8XySG MIEM2qN7iKQDqDDTfnyOP+PHR k LZH8xNkuMGalVNDplV8iVMSvV 0d4DbXaBoR5EMvaH4MfOSDjtu xbBm83kJ0yQmTmWeL2UKrlX0T v szW8QCJctCQkQUlbDFB0C59yh 9F3OJZxSGVyUAZ6iIE0gV7umE lnbjogbGVmdDsgdmVydGljYWw t ULfeL307LGGvrNyjWlSnKnY4L wW2AnK9I6LuZco2XAIenTypRO 5acCCyCJasPu8glNxqhSmcUL0 w BOXdprvfWBVaiF7wGYEtrTFkr HwzMD4qQWTroziou905UkMmQJ V2LXTagTElO4CxhC3uWmKrCJD w JKZdA2NwaBWeOJsuS069LKzrM bZ5UCCchrHeX7YqJTIsxCtkMc V2i7E4Kq07GtGWWPQrldemqEA + RWHaSHN0kZcrMUonOUPmqO6mC ZAjA6i3ZjEcSwG7CMhsZ1EeJD EwnnuiHt50pN5qAcJbHxJ5AMx u E9RlvfV2UIAbtUPlADhcFUK1X 84fo8U2LNWnITCxRNL4cHP6gT 1hbGlnbjogbGVmdDsgdmVydGl j WCnoYXhkO769DYOxjYyjGn2ID NE4D6VbGgv0GQHwtXlbTA6pzQ NrSMbmWk8hzYhywBcqZB2aYHN p xfglIVIpsX5tWVXdoZVnjQojT M5nLKBrhpiod888WsGzAOZ7LW PhjCIlN6MvbI6kPbCxVDPuGFN w Y3VfgQEoTRxwB494FWtfMcM9Q UYaalDmC5AbRRQjrJnyQeR8g3 L8Mg2MOKP7xhBpzevlN5U9sWA 0 aWVudDwvdGQ+AY67gy59J6JkL kzwHni4SWZqFRK9mEA5mE6iUY MnJQgvn3M3qRI4D9YlsiOfnm8 j d4cpHKYlDPldF97wiWCpt0M7L LGrxOF6ESMumPnbAyRmxM70Tv c+NSKwzCakp9UdWrhav7vqw9k k nTz1XuMrPJZsflDwpXqoAJY3p 7PhCj79O68cBYsdQMOkHPYpXH TuNRQopNlwrr0kjG4eYn6+PGN v hQM8bAF0yE0wXvTiUkQ5WVmzR 855FgYsgJPcYfctz5fpi1mdlC d6CgXlCWPcujHvsIcoMWN7e4S i Rj33X9FuoHjhv8LcJfg0td90x KCmi2Y4eQW1Z6VtVXXrmmxbqK AreUlzWY3wTDSfkyobJBTugF1 n BMMlJ4l6CwToBcF6AKbxG7Xeq bL5CKJooYMmEZHefJDKcS7qij wii6khjyiwZsDuCTKoXKy5PKq 0 FZQkcYfdGkSaZPP6AkY2AXU6c JBbjC3jxNqqbfmfeE2iMwo+UG o6a6mskPChOY9jsAX3IU92XS8 8 tIBrt1Z1zED5B0KzVPPftsvaz uxnjQQ4QCThJBKafK59Oz2quK tnVc4tGYUjWZG5KLJdlYWqI9T v bV8bYrYsSUIxJNZhI1MrkNIkK MtlX124AXtzVjX4IJVyjgWjO3 MrSKPaxBkpWbV6m2U6Er0HMB0 6 LI06ZY06gTYly2R9rHE6T5EpV RVbewhdfxfshQM0RICfTTJwbL 46Dp2lhNfxMo4mVFIyYBE6ZDK p wXBbE8NsxI8nCbLhENPaEADcT 1ZteASmLJdoJ558ABblWgX3PW VzstLlM7XlZHMtbRbpQjI7g8E 7 Dw6HDt66UZ68LI95lMVnf3Z9f ZV8G2DbDLDxfragqvvdjGB8NT LlPLUzoV18Gx1cqBwzNu8sLAF x IPI2HTOlsGNuB6XhxU7mPcShN PWoQMKwN5ZyfDMkLNrtL273XG cbOpN2WPNbzuFsP1WeHLFqdBs u QfF1o1I9Ax6ZMZgeycg2H0ZtR jwvdHI+AC81MTYhEF11lBTrgY Shy8zzxTo0AjFiKRDdSRL0fOw l PSd (more content not included)... [facility] Provider Orderson 02-11-2024 Provider Orders [id number]#[id number] F [facility] Lab - Other Lab Resultson Lab - Other Lab Results [id number]#[facility] - Other Radiology Report on 02-04-2024 Rad - Other Radiology Report [id number]#1.00OTGTI [facility] Coding Summaryon 09-23-2023 Coding Summary HTMLBase 64 AbqbnnbeSDe5xDn+PGhlYWQ+P A9EVRWiD78kxVKarT4uF7MQXB lOSywgQVBQTElOSyIgbmFtZT1 kaXNjZXJu IC8+HU7oNHUiPtsqtHJuw7D9k LB6H29kku8tILmgbDH6UPWjQp Zzonesw5wfaMx3GBvtPdzgIuN t QWYttV51DGR1rF21Fa18lPMgj QLrf4hciPi8OvQsMUSqAJE4dN uxJFcvb4KoLHPqK36ckUVvt8L 6 AJEtjFppbFPbBeJmvHX8vM9aH Cgdmyyjj8yvtqjoDbo4mc38sI Xog3G3zTI5S7EganT8VQPjnQW g IqxqhIWZhT7yohrvz2dhfyqoP mAjYEJrIYm4HEf8RISbyBehQr VaGQ52KVB0ZQSeuaRbT4BySMS s oBfdJdQ5r4Y7Dy6MP9ASDjbyQ 1VNTUFSWTwvdGQ+WX96ma20R8 YzFcjdQhc9TYAsHRE6gVC7vD0 n XFToSXcdi7Q4kTM1R5XdjpVyz c9aq0zuXZMeAEgvR39ynHHfo6 N0TWCbjFR6UNSvyMroSzYeiE0 3 Oyc+RWTekBsgt4AaEbcxl9qab 8bhmUu1ZvcyDSYbtcTorXguWL J7r2VmBa4oODMziQZ8vVV8bE3 i PpQyXaL3QTciK613DgRveCMtW clpJ14mN0EswJU+TMGaYts9TI ZxoSvgBH8uX3ZcUTYqmubfiTM m rUwtEB6gSDFuxralPQRwdA4rH FMlK5l3HoJgKlT7EGeaW5TjVL CyllleZd56nL1fNiVhYfZ5CXg u L4QduiZ5OFFbbSBlFCzzVCS6H 42zf0M5POQzGZWrKAF4cZI3fR 1hbGlnbjogbGVmdDsgdmVydGl j IIddGOtwA481JVLcbTkjLiMqA GluZyBEYXRlOiAgMDYvMDYvMj AyNDwvdGQ+MYHxPLW3vRocRJP n tWAdLRivKl5lpNdubUjfFE8aG KDzjdxnVNXkcW8fZHQzmSZqtE dwPE9tREPcxzbwm648EiSkGPJ 0 SIPfrRHjA9TlrR9jFaKcDXDeY SYzK7WoiAAfBMfeL445TWjaHd J6LBMhygYgN6SfLLHewQpeYsF 0 k9B7Vb8Zw1NzzqtmS9WqeCUsY tZgDchlLBe8X8XlWhuqpOE+PC 54FTOtWE92YKf6ALJ3xZfrBNs i RNHmJ7YhgD6mCfGfVVRbGWJbK yc+PHRhYmxlIHdpZHRoPScxMD QjRwQglNspOG4uBt5oKYCsWCZ v jSjqqVJaBfFnh1daUQSmJDmvJ F4fcQioH1FhvUA2LPKfn0o5Oe 00B35sC3BlnGH+FRRckAC1kIP 0 pA0nSyIsLfK3JWrsB593IlHhe NFbXylad5zzj9xyfOm6MbI8MW QxqdUtcJklDMG7q0HoZz21E00 s IHdpZHRoPSIxNSUiIHZhbGlnb s7inR9mTl7+HFOzxBI0vSF4pD 6tVmQdIaA4BBnaR032JpOylQC v Ewizo9sfv7wzuAa0WeLzAQWul mPtfMwjGHM2w2ZxJq78J5ZhgR dbg7OyYhz7ai84iDAgr9I2pSD 9 J0MdLVSjvwfymAUakGyyGK3vU ARqcrgxAWQufW3bJLHqW6t3Jt BdXxY2GGucA1PkifS7XFXsrJM g CFHktRIDfE4niabca9grkfsgP rWkKLRgZCi3SCx0GFTaxXozTa UjTHH7CsN0FJS5xOIuaY0mvHb n jmipuM8aEah+MEJ5oNVqoDXAP R6kNppyhLU+GUSjIPT6uGxsWY qwCRGzeI9mKFKwY5t2OoCaVgQ 1 DPyhC7OgiaR4RZRifABdCIUdn HWWjX3mnlizo8cnqsjkGiCeEQ OpQDg4YQx4PYBthKqrDdRxJZC 0 WvF2RSC0gNSmdP5unSeuktesj G9wOyc+ErtuyPxiNCM5YWw8F2 MrAqj5XURaxCbsTT0hsEHkUHe u Hb0cyAzzcObrNU3uQBEhyptgw 993BbXzs0nzMVQlkVVnEPsgTR Y3S00bq0H1ALSbUTPzBSH2uGH 4 bN1weZfozazckLNoqVosszCtv VuiZAcpZLjlJ752AVAbuNblQp KcWPb7J7MoLnj0IOJlnTutTX1 n nKYbYDeaAu7qfNbuoHmnLI9oB GTcwjkdb555OkPzf1cgNVLlyG MtBGcyHCE7P52fh1J9NYBiHOM w KOB7bAG3kI4uwQlajicmcXTcj XnpmkFhhWfsECuwTKqaH739OL VzsCdbGvTigJx2X5QoGjg3JMU z hLzfXH9rvNUyCXvsSs0hzZnur DvbGU2iCGFlqhdig398LbKre9 ttGFIanOZxABqpSDP5H88vf0S 6 MKJrFNOfWQI6zKO5pX0zjRzmh jogbGVmdDsgdmVydGljYWwtYW swZ975ITMjeKkiIdAniRlfbwF g LNsaOOr7J5KhUiaeyQR+PC90Y KBaHD13mCDdvRMsw5nprJq3Ji CbEOQjSBV5pXzuQYycq3XqAVH t A82hxUIuc6D5PZZhzCusqWNfU cVpoRT2rS6iDZcmgqgzg1cxfv gtBribt8qyqj61dM14U31vLDo p IZTfXUNxXRVsLBQeaIntly8us G9wIi8+CHBonHH0jAG1uJ4lJS HtHsC0TSdmH709IrOgaFSkUlo j y5huz3ptiLf8DxP9ZOMqdjOpw LrlGMQ8h5ScLc16Q03iHIwuOS LrPLZmHKCqGPHuoWauhi1luK9 w Ii8+IVAftWW9eOR1bF6rLiKoV xJ7HXwiF575OxJpzKMfIxnvJ8 5lK8RgdSU+RAXwDet5ECSwrTs s YL0nfGOfFMliDh2nQFK3HxLtS qMuXEoiI8MmTBNgayzyzqlbhP Y6QGWkTFPlmD21Kt1ajQoiONN w kXYJoA1yzsoeo7qxpvvtHgUbA LTiAVs3NUf8VUDodGuyIwQvPH W9ZvI8ULO1yBQdiN4tjVxcyns g nQ5qR0UwTMUhbwpdLc44hN2fQ dCcEkE1FHlnLla+OanJU8SsTD GQCX9zXbtfnUE+RELlSDH6pTk l PVatFSThpR1kRGQuP2v3UlMkK yO4WLhmQ8ByYNDesfgwXw24uU 6cGpUoPhP0LYqmD8MpwyH5VYX w wITuFXmwQDC2W99gk6I6IAAjP OMzNYC7lXN6nO5quAapeyxemI HknSyussNgbGunJDngDLouH25 6 ZHKzfEmkHqPdTiL7JkQ2MfM3I 2GvAsv6WHVckFaxBL3wsHWjPO hsVm3fxNfdxFswST4xQRKkqrr w BCXlvL9bZGNhcRNhqPxuLR8rX POzlsivw859MeIvCJN9YJJrvW VyH7SaeG4fRoDkYDUbYJXtF3V l aNKxIHipN355HQdaLjY4BKVnj sUjX1QnTDAgsUfkLeI0c3P9On 41NyBZZWFyczwvdGQ+PHRkIHN 0 qMjkSAjdXGZgtW6mWWEjM0t0D jQoVfO9YGgnO6QqVNPenwsvNb 13wG3cAyDqGsR3VXevB1LubiE 6 XDIblNEtAIpySIE3T47tt6K0X CHkDCMwMZQ5oCB2nI9pdVbssv ogbGVmdDsgdmVydGljYWwtYWx p Z730FQZpaTdbWo6QDHE8U8GeL gz7SYUnfDeaDF1lmUDnUEiwSf 8zzPfxsCsxWE8gUZRhxpjjVAV k tL3bFEPpmWZvwDeuLN5yFPFrm ycgy558MjDuJZV8YGKgnDZzB7 NacY6qTpZdNDBdRNHaU1XthFU t PIcmT569FTghYqA9XHEbtgRqM 3GqSXKcsEgdTtC5k4X6Ah1SYI X6hvVxnptzF2T7iFJ8nNUswCc v dGQ+EF81ip55N7GcCexaWyl0B GFpQGZ6lDC4gA4rWZLlMEwud6 X5kRZ7X1VwovOade6fn9pwWPC z BDogK88cwDTet8S1ANCtsZS9W BCkpTrlYaDdvF38Hsj+PGNvbG dgm6WoHeuyj6gzg6kwnHf7RzG w QIMgouVxdRjtIVQ0l2SjUs29M 29sIHdpZHRoPSIzMCUiIHZhbG nnbp0dtM5lSh1+UXBjoAZ2iJW 0 xD7cMaBaEiD9ZEetR555HlLzs ECtYaahq7bto2kvqOx1OnWkCS GarcOtuZxzIGM2d9WdUr98X4H v mPvnl6PiPqi3fr65qMYjq9U5f LC3P8NaOFUdhwwzfBQvxRicUE 0zKAVekwdsDUWbxZ1mURBrD5d 0 FdDwFdX1HOyyB5IvniP1INOhj CYtZNTkkOUZnJ9tsuccz3klad wtNoJrEARcLSa5QFr5OXLmdJs u TuJyEWI6NyI1NPI4vVYhpP8mc ItobwdnzV8wGvd+POk7a3qhwM LbOF7yzOM5WD88UD07kLRny1V 5 tLE8W4JoQCAbazpnhraetXU8K ZGeBYJmsP45Ls6ozGwgGn1yHA DxPPH4EMPkmNSeY3FgcN5uDuW j DWJfUVWzX5HcwWUeHAroW129T ZonIxF6UBAviuIyP3OdBFKmdQ svQqF0f2K6Qa8HYY48LJ59IR8 8 uWLot3V2xKW8D5MmONBhtgdir ommdZW6HFYtZKHlyM87Ki7joV jcHc5hWATeAQU7SCUnqQWdY7V v oR5iVbQmSKPfPCGaR5RkzTGtB DoeW976MAhyKyG3DXSqytLyH9 YxQGGerMuqUwP4g1N5Wv9QZx2 6 RH28FA39xCKkx8N3qLL6R9BqZ AJjjhpisrkmrTZ9UCEtUVAtqO 38Bt0tgBweJd2wXOSrORC8BCQ p iDZhW9EvzS1uEjZdTGFrBAEeW 9UseDPoQPtvU285OHlqErE9RK XzsrSoT0YyNMVjmCnaUmD8x4F 7 Mp8AJOdxhmv3J9FjBegidKD+P W56MBElJG07iXMbmOMav8jmrN d6ZuDuJHPkCLR0xCjbJPuvj3Y k ZXI (more content not included)... [facility] Outside Recordson 09-17-2023 Outside Records [id number]#1.00OTGT IFF [facility] XR hip RT min 2V(w/wo pelvis )*on 09-15-2023 XR hip RT min 2V(w/wo pelvis)* [facility] [address] [place] [address] XRay Report Signed Patient: Lyly Quinn MR#: [id number] : 1965 Acct:[id number] Age/Sex: 58 / M ADM Date: 09/15/23 Loc: [facility] Room: Type: REG CLI Attending Dr: Charles Claros MD Copies [...] Terrence Basurto M.D.09/15/2023 3:16 PM Dictation Location: [place] [address] Transcribed By: [facility] 09/15/23 1516 Dictated By: Terrence Basurto II, MD 09/15/23 1515 Signed By: 09/15/23 1516 Normal [facility] XR lumbar spine AP/LAT/FLX/E XTon 09-15-2023 XR lumbar spine AP/LAT/FLX/EXT [facility] [address] [place] [address] XRay Report Signed Patient: Lyly Quinn MR#: [id number] : 1965 Acct:[id number] Age/Sex: 58 / M ADM Date: 09/15/23 Loc: [facility] Room: Type: REG CLI Attending Dr: Charles Claros MD Copies [...] Terrence Basurto M.D.09/15/2023 3:19 PM Dictation Location: [place] [address] Transcribed By: [facility] 09/15/23 1519 Dictated By: Terrence Basurto II, MD 09/15/23 1516 Signed By: 09/15/23 1519 Normal [facility] ED Note - Provideron 024 ED Note - Provider [id number]#1.00OTGT IFF [facility] Lab - Other Lab Resultson Lab - Other Lab Results [id number]#1.00OTGT IFF [facility] Outside Recordson 09-08-2023 Outside Records [id number]#1.00OTGTIF F [facility] Provider Orderson 08-26-2023 Provider Orders [id number]#1.00OTGT IFF [facility] Outside Recordson 08-09-2023 Outside Records [id number]#1.00OTGTIFF Normal [facility] NR MRI L-SPINE WOon 05-12-19 NR MRI L-SPINE WO Patient Name: LYLY QUINN STUDY: MRI L-SPINE WO; 05/12/2022 8:35 am INDICATION: acute right foot drop, previous surgery, had MRI 2 weeks ago with insufficient metal reduction unable to assess junctional levels M96.1: Lumbar postlaminectomy syndrome M21.371: Right foot drop. COMPARISON: Outside hospital MRI L-spine dated 04/30/2022 ACCESSION NUMBER(S): [id number] ORDERING CLINICIAN: BEE BLACKMON TECHNIQUE: Sagittal T1, [...] Alvarado. Electronically signed by: DILMA VERA MD [facility] MRI Lumbar Spine w/oon 04-30 MRI Lumbar [...] by Carlos Hayward on 05/01/2022 0917 Normal [facility] Key Person Established Visit (Orthopaed ic Surgery)on 04-27-2022 Established [...] is going to do this in the [facility], we will have them push the [...] 01/07/2021 10:40:28 AM Current Meds Medication NameInstruction Aqaxgwdtcs-BQLR-Coczkggt 50-300-40 MG Oral CapsuleTAKE 1 CAPSULE BY [...] Apr 27 2022 10:06AM EST (Author) Normal [facility] CBC AUTO DIFFon 04-14-2022 BASO # 0.0 103/ul Normal 0.0-0.[address] [facility] Comment on above: Performed By: #### C BC #### [facility] [address] [place] [address] Dr. Devonte Rivas Basophils/100 WBC (Bld) 0.4 % Normal 0.2-2.[address] [facility] Comment on above: Performed By: #### C BC #### [facility] [address] [place] [address] [address] Devonte Rivas EO # 0.1 103/ul Normal 0.0-0.[address] [facility] Comment on above: Performed By: #### C BC #### [facility] [address] [place] [address] [address] Devonte Rivas Eosinophils/100 WBC (Bld) 0.9 % Normal 0.9-7.[address] [facility] Comment on above: Performed By: #### C BC #### [facility] [address] [place] [address] [address] Devonte Rivas Erythrocyte distribution width (RBC) [Ratio] 12.4 % Normal 11.0-15.[address] [facility] Comment on above: Performed By: #### C BC #### [facility] [address] [place] [address] Dr. Devonte Rivas Hematocrit (Bld) [Volume fraction] 42.4 % Normal 42.0-54.[address] [facility] Comment on above: Performed By: #### C BC #### [facility] [address] [place] [address] [address] Devonte Rivas Hemoglobin (Bld) [Mass/Vol] 14.8 g/dL Normal 14.0-18.[address] [facility] Comment on above: Performed By: #### C BC #### [facility] [address] [place] [address] [address] Devonte Rivas IG # 0.03 10e3/ul Normal 0.00-0.[address] [facility] Comment on above: Performed By: #### C BC #### [facility] [address] [place] [address] Dr. Devonte Rivas IG % 0.6 % Critically high 0.0-0.5 [facility] Comment on above: Performed By: #### C BC #### [facility] [address] [place] [address] Dr. Devonte Rivas LYMPH # 1.7 103/ul Normal 1.2-3.[address] [facility] Comment on above: Performed By: #### C BC #### [facility] [address] [place] [address] Dr. Devonte Rivas Lymphocytes/100 WBC (Bld) 31.6 % Normal 20.5-60.[address] [facility] Comment on above: Performed By: #### C BC #### [facility] [address] [place] [address] Dr. Devonte Rivas MANUAL DIFF REQ NO Normal [facility] Comment on above: Performed By: #### C BC #### [facility] [address] [place] [address] Dr. Devonte Rivas MCH (RBC) [Entitic mass] 31.3 pg Normal 25.9-34.0 [facility] Comment on above: Performed By: #### C BC #### [facility] [address] [place] [address] Dr. Devonte Rivas MCHC (RBC) [Mass/Vol] 34.9 g/dL Normal 29.9-35.2 [facility] Comment on above: Performed By: #### C BC #### [facility] [address] [place] [address] [address] Devonte Rivas MCV (RBC) [Entitic vol] 89.6 fL Normal 80.0-94.[address] [facility] Comment on above: Performed By: #### C BC #### [facility] [address] [place] [address] [address] Devonte Rivas MONO # 0.9 103/ul Critically high 0.3-0.8 [facility] Comment on above: Performed By: #### C BC #### [facility] [address] [place] [address] [address] Devonte Rivas Monocytes/100 WBC (Bld) 15.6 % Critically high 1.7-12.[address] [facility] Comment on above: Performed By: #### C BC #### [facility] [address] [place] [address] Dr. Devonte Rivas NEUT # 2.8 103/ul Normal 1.4-6.[address] [facility] Comment on above: Performed By: #### C BC #### [facility] [address] [place] [address] [address] Devonte Rivas Neutrophils/100 WBC (Bld) 50.9 % Normal 43.0-75.[address] [facility] Comment on above: Performed By: #### C BC #### [facility] [address] [place] [address] Dr. Devonte Rivas Platelet mean volume (Bld) [Entitic vol] 9.4 fL Critically low 9.5-13.5 [facility] Comment on above: Performed By: #### C BC #### [facility] [address] [place] [address] Dr. Devonte Rivas PLT 194 103/ul Normal 150-450 [facility] Comment on above: Performed By: #### C BC #### [facility] [address] [place] [address] [address] Devonte Rivas RBC 4.73 106/ul Normal 4.70-6.10 [facility] Comment on above: Performed By: #### C BC #### [facility] [address] [place], [place] [address] Dr. Devonte Rivas WBC 5.4 103/ul Normal 4.0-11.0 [facility] Comment on above: Performed By: #### C BC #### [facility] [address] [place], [place] [address] Dr. Devonte Rivas CTA CHEST WO W [...] DANIEL BENITEZ Date: 2022-04-14 10:29 Normal [facility] Covid-19 PCR (CVDTBH)on 03-20 SARS-CoV-2 (COVID-19) RNA LEATHA+probe Ql (Unsp spec) Detected Critically abnormal NOT DETECTED [facility] Comment on above: Result Comment: This test is not yet approved or cleared by the [place] FDA. When there are no FDA-approved or cleared tests available, and other criteria are met, FDA can make tests available under an emergency access mechanism called an Emergency Use Authorization (EUA). The EUA for this test is supported by the [place] of Health and Human Service's declaration that [...] used). Performed By: #### C VDTBH #### [facility] [address] [place] [address] Dr. Devonte Rvias INFLUENZA A AND B AGon 04-14 [facility] SEE BELOW Normal [facility] Comment on above: Result Comment: Nega tive for Flu A protein angiten. Infection due to Flu A cannot be ruled out. Flu A angiten in the sample may be below the detection limit of the test. Performed By: #### I NFLUAB #### [facility] [address] [place] [address] Dr. [facility] Normal [facility] Comment on above: Result Comment: Nega tive for Flu B protein antigen. Infection due to Flu B cannot be ruled out. Flu B antigen in the sample may be below the detection limit of the test. Performed By: #### I NFLUAB #### [facility] [address] [place] [address] Dr. Devonte Rivas INFLUENZA A AG Negative Normal NEGATIVE SEE COMMENT [facility] Comment on above: Performed By: #### I NFLUAB #### [facility] [address] [place] [address] Dr. Devonte Rivas INFLUENZA B AG Negative Normal NEGATIVE SEE COMMENT [facility] Comment on above: Performed By: #### I NFLUAB #### [facility] [address] [place] [address] Dr. Devonte Rivas INTERNAL CONTROLS Within Normal Limits Normal Wi thin Normal Limits [facility] Comment on above: Performed By: #### I NFLUAB #### [facility] [address] [place] [address] Dr. Devonte Rivas PROF CHEM 8 (BAS METB)on Anion gap [Moles/Vol] 12.0 mmol/L Normal [facility] Comment on above: Performed By: #### H STROPN, BMP #### [facility] [address] [place] [address] Dr. Devonte Rivas Calcium [Mass/Vol] 9.2 mg/dL Normal 8.5-10.1 [facility] Comment on above: Performed By: #### H STROPN, BMP #### [facility] [address] [place] [address] Dr. Devonte Rivas Chloride [Moles/Vol] 100 mmol/L Normal 98-[address] [facility] Comment on above: Performed By: #### H STROPN, BMP #### [facility] [address] [place] [address] Dr. Devonte Rivas CO2 [Moles/Vol] 26.2 mmol/L Normal 21.0-32.0 [facility] Comment on above: Performed By: #### H STROPN, BMP #### [facility] [address] [place] [address] Dr. Devonte Rivas Creatinine [Mass/Vol] 0.99 mg/dL Normal 0.70-1.[address] [facility] Comment on above: Performed By: #### H STROPN, BMP #### [facility] [address] [place] [address] Dr. Devonte Rivas EGFR-AF PERUVIAN >60 Normal >=60 [facility] Comment on above: Performed By: #### H STROPN, BMP #### [facility] [address] [place] [address] Dr. Devonte Rivas EGFR-NON AF PERUVIAN >60 Normal >=[address] [facility] Comment on above: Performed By: #### H STROPN, BMP #### [facility] [address] [place] [address] Dr. Devonte Rivas Glucose [Mass/Vol] 163 mg/dL Critically high 74-106 [facility] Comment on above: Performed By: #### H STROPN, BMP #### [facility] [address] [place] [address] Dr. Devonte Rivas Potassium [Moles/Vol] 4.2 mmol/L Normal 3.5-5.[address] [facility] Comment on above: Performed By: #### H STROPN, BMP #### [facility] [address] [address] [address] Devonte Rivas Sodium [Moles/Vol] 134 mmol/L Critically low 136-145 [facility] Comment on above: Performed By: #### H CECELIA, LANA #### [facility] [address] [place] [address] Dr. Devonte Rivas Urea nitrogen [Mass/Vol] 11.0 mg/dL Normal 7.0-18.[address] [facility] Comment on above: Performed By: #### H CECELIA, BMP #### [facility] [address] [address] [address] Devnote Rivas Urea nitrogen/Creatinine [Mass ratio] 11.1 mg/mg Normal [facility] Comment on above: Performed By: #### H CECELIA, LANA #### [facility] [address] [place] [address] Dr. Devonte Rivas TROPONIN, HIGH SENSITIVITYon 04-14-2022 HSTROP <4.0 Normal 4.0-76.[address] [facility] Comment on above: Result Comment: CUT- OFF POINTS HAVE BEEN ESTABLISHED BASED ON THE FOURTH UNIVERSAL DEFINITIONS OF MYOCARDIAL INFARCTION. THE UPPER REFERENCE LIMIT (URL) OF TROPONIN, DEFINED THE 99TH PERCENTILE OF cTnI DISTRIBUTION IN A REFERENCE POPULATION, HAS BEEN CONFIRMED THE DECISION THRESHOLD FOR CA DIAGNOSIS. Performed By: #### Alexander RAI, BMP #### [facility] [address] [place] [address] Dr. Devonte Rivas XR CHEST 1 Von 04-14-2022 XR CHEST 1 V EXAM: Chest x-ray HISTORY: . SHORTNESS OF BREATH . COMPARISON: 10/26/2010 TECHNIQUE: Frontal and lateral chest. FINDINGS: Heart and vascularity are unremarkable. Lungs are free of focal infiltrates. EKG leads overlie the chest. Impression: No acute heart or lung disease identified. Electronically authenticated by: DANIEL MALDONADO Date: 2022-04-14 09:12 Normal [facility] Established Visit (Orthopaed ic Surgery)on 09-29-2021 [...] 01/07/2021 10:40:28 AM Current Meds Medication NameInstruction Mlbydjbjbi-TQQI-Dajyvfvc 50-300-40 MG Oral CapsuleTAKE 1 CAPSULE BY [...] Sep 29 2021 12:05PM EST (Author) Normal [facility] Visiton 09-16-2021 Follow-up visit Diagnoses/Problems Class 1 obesity with body mass index (BMI) of 34.0 to 34.9 in adult (278.00,V85.34) (E66.9,Z68.34) Inappropriate diet or eating habits (V69.1) (Z72.4) Orders Class 1 obesity with body mass index (BMI) of 34.0 to 34.9 in adult Comprehensive Metabolic Panel; Status:Active; Requested for:[id number]; Hemoglobin A1C; Status:Active; Requested for:[id number]; Insulin Level, Serum; Status:Active; Requested for:[id number]; Lipid Panel; Status:Active; Requested for:[id number]; Class 1 obesity with body mass index [...] for weight loss may be short or utility inspector, but that if weight loss is not [...] of coffee (black) V8 juice L - [place] (low calorie tortilla) turkey with salad D [...] Social Hx: Lives with: Spouse 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 Normal [employer] MRI Lumbar Spine w/oon 09-05 MRI Lumbar [...] by Chandler Tomlinson on 09/08/2021 1127 Normal [facility] CT Abdomen/Pelvis w/ [place]ras ton 08-05-2021 [...] by Chandler Tomlinson on 08/06/2021 0906 Normal [facility] Established Visit (Orthopaed ic Surgery)on 07-28-2021 Established Visit (Orthopaedic Surgery) Diagnoses/Problems Assessed Lumbar postlaminectomy syndrome (722.83) (M96.1) Orders Lumbar postlaminectomy syndrome MRI L Spine without Contrast; Status:Hold For - Scheduling,Retrospective Authorization; Requested for:[id number]; Radiologist to Determine Optimal Study : Y Does the patient have a Cochlear Implant, Pacemaker, Defibrilator, Pacing Wire, Brain Aneurysm Clip, Implanted Nerve or Bone Graft Simulator, Implanted Breast Tissue Magnetic Doctor, Glucose Monitor, or Neulasta Device? : No [...] 01/07/2021 10:40:28 AM Current Meds Medication NameInstruction Mipovuxikv-VEWN-Hitftjha 50-300-40 MG Oral CapsuleTAKE 1 CAPSULE BY [...] Jul 28 2021 11:54AM EST (Author) Normal [facility] Visiton 06-18-2021 Follow-up visit Diagnoses/Problems Class [...] - continue to follow reduced kcal diet, 6286-8955 focus on protein at each meal, unprocessed [...] for weight loss may be short or prison, but that if weight loss is not [...] coffee and V8 L - yogurt, granola (togolese yogurt, 1/4 cup granola), cream of corn 1 cup Snack - pop corner 100 calorie bag D - veggie burger with american cheese AND onion (2 burgers) low calorie [...] Social Hx: Lives with: Spouse 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 Normal [facility] Nutrition-Adulton 05-06-2021 Nutrition-Adult Medical Diagnosis Assessed Class [...] fatty acids and low saturated fat content. [place], mackerel, albacore tuna, sardines, mills and franco [...] occasionally snack (more content not included)... Normal [facility] No Panel Informationon 04-23 1620 1 UC-Gmdrjvb-U arma MAC[address] Work Phone: [phone] PX-Hcarlxl-J arma [address] Work Phone: [phone] YM-Jngydrx-C arma [address] Work Phone: [phone] NB-Csiekiq-Q arma [address] Work Phone: Comment on above: Age: 56Height: 73 in Sex: MLevel of Activity: Sedentary (little or no exercise)Weight: 292 lb 2138 1 KI-Qsmnkmk-V arma [address] Work Phone: [phone] SW-Bfgvhrf-L arma [address] Work Phone: Tobacco Screening.on 022 Fall risk assessment a) No falls within the last year UD-Ffgylax-S arma [address] Work Phone: Tobacco use status CPHS b) No QQ-Uyqdvsb-Y arma [address] Work Phone: Radiologyon 03-10-2021 XR Lumbar spine AP and Lateral Please click on the link to view the study images Normal [facility] Work Phone: SPINE, LUMBOSACRAL; 2 OR 3 V IEWSon 03-10-2021 SPINE, LUMBOSACRAL; 2 OR 3 VIEWS Patient Name: LYLY QUINN STUDY: SPINE, LUMBOSACRAL; 2 OR 3 VIEWS; ; 03/10/2021 11:16 am INDICATION: pain M96.1: Lumbar postlaminectomy syndrome M48.062: Spinal stenosis of lumbar region with neurogenic claudication. COMPARISON: 12/09/2020. ACCESSION NUMBER(S): [id number] ORDERING CLINICIAN: BEE BLACKMON FINDINGS: Lumbosacral spine [...] Electronically signed by: JANET VILLARREAL MD Normal [facility] Radiologyon 12-09-2020 XR Lumbar spine AP and Lateral Please click on the link to view the study images Normal [facility] Work Phone: SPINE, LUMBOSACRAL; 2 OR 3 V IEWSon 12-09-2020 SPINE, LUMBOSACRAL; 2 OR 3 VIEWS Patient Name: LYLY QUINN STUDY: Lumbar Spine, 2 views. INDICATION: low back pain. COMPARISON: Outside hospital lumbar spine radiographs 08/29/2020 ACCESSION NUMBER(S): [id number] ORDERING CLINICIAN: BEE BLACKMON FINDINGS: Redemonstration of [...] Electronically signed by: WILLIAMS GUZMAN MD Normal [facility] BASIC METABOLIC PANELon 11-17 ANION GAP Canceled Normal [facility] Comment on above: Order Comment: TEST BASIC METABOLIC PANEL WAS CANCELLED, 12/01/2020 18:56 NO SPECIMEN RECEIVED IN LAB. Performed By: #### B MP #### [facility] [address] [place] [address] BICARBONATE Canceled Normal [facility] Comment on above: Order Comment: TEST BASIC METABOLIC PANEL WAS CANCELLED, 12/01/2020 18:56 NO SPECIMEN RECEIVED IN LAB. Performed By: #### B MP #### [facility] [address] [place] [address] CALCIUM Canceled Normal [facility] Comment on above: Order Comment: TEST BASIC METABOLIC PANEL WAS CANCELLED, 12/01/2020 18:56 NO SPECIMEN RECEIVED IN LAB. Performed By: #### B MP #### [facility] [address] [place] [address] CHLORIDE Canceled Normal [facility] Comment on above: Order Comment: TEST BASIC METABOLIC PANEL WAS CANCELLED, 12/01/2020 18:56 NO SPECIMEN RECEIVED IN LAB. Performed By: #### B MP #### [facility] [address] [place] [address] CREATININE Canceled Normal [facility] Comment on above: Order Comment: TEST BASIC METABOLIC PANEL WAS CANCELLED, 12/01/2020 18:56 NO SPECIMEN RECEIVED IN LAB. Performed By: #### B MP #### [facility] [address] [place] [address] GFR- AM. Canceled Normal [facility] Comment on above: Order Comment: TEST BASIC METABOLIC PANEL WAS CANCELLED, 12/01/2020 18:56 NO SPECIMEN RECEIVED IN LAB. Result Comment: CALC ULATIONS OF ESTIMATED GFR ARE PERFORMED USING THE MDRD STUDY EQUATION FOR THE IDMS-TRACEABLE CREATININE METHODS. CLIN CHEM 2007;53:766-72 Performed By: #### B MP #### [facility] [address] [place] [address] GFR-NON AM. Canceled Normal [facility] Comment on above: Order Comment: TEST BASIC METABOLIC PANEL WAS CANCELLED, 12/01/2020 18:56 NO SPECIMEN RECEIVED IN LAB. Performed By: #### B MP #### [facility] [address] [place] [address] GLUCOSE Canceled Normal [facility] Comment on above: Order Comment: TEST BASIC METABOLIC PANEL WAS CANCELLED, 12/01/2020 18:56 NO SPECIMEN RECEIVED IN LAB. Performed By: #### B MP #### [facility] [address] [place] [address] POTASSIUM Canceled Normal [facility] Comment on above: Order Comment: TEST BASIC METABOLIC PANEL WAS CANCELLED, 12/01/2020 18:56 NO SPECIMEN RECEIVED IN LAB. Performed By: #### B MP #### [place] [address] [place] [address] SODIUM Canceled Normal [facility] Comment on above: Order Comment: TEST BASIC METABOLIC PANEL WAS CANCELLED, 12/01/2020 18:56 NO SPECIMEN RECEIVED IN LAB. Performed By: #### B MP #### [facility] [address] [place] [address] UREA NITROGEN Canceled Normal [facility] Comment on above: Order Comment: TEST BASIC METABOLIC PANEL WAS CANCELLED, 12/01/2020 18:56 NO SPECIMEN RECEIVED IN LAB. Performed By: #### B MP #### [facility] [address] [place] [address] CBCon 12-01-2020 HCT Canceled Normal [facility] Comment on above: Order Comment: TEST CBC WAS CANCELLED, 12/01/2020 18:56 NO SPECIMEN RECEIVED IN LAB. Performed By: #### C BC #### [facility] [address] [place] [address] HGB Canceled Normal [facility] Comment on above: Order Comment: TEST CBC WAS CANCELLED, 12/01/2020 18:56 NO SPECIMEN RECEIVED IN LAB. Performed By: #### C BC #### [facility] [address] [place] [address] MCHC Canceled Normal [facility] Comment on above: Order Comment: TEST CBC WAS CANCELLED, 12/01/2020 18:56 NO SPECIMEN RECEIVED IN LAB. Performed By: #### C BC #### [facility] [address] [place] [address] MCV Canceled Normal [facility] Comment on above: Order Comment: TEST CBC WAS CANCELLED, 12/01/2020 18:56 NO SPECIMEN RECEIVED IN LAB. Performed By: #### C BC #### [facility] [address] [place] [address] NUCLEATED RBC Canceled Normal [facility] Comment on above: Order Comment: TEST CBC WAS CANCELLED, 12/01/2020 18:56 NO SPECIMEN RECEIVED IN LAB. Performed By: #### C BC #### [facility] [address] [place] [address] PLT Canceled Normal [facility] Comment on above: Order Comment: TEST CBC WAS CANCELLED, 12/01/2020 18:56 NO SPECIMEN RECEIVED IN LAB. Performed By: #### C BC #### [facility] [address] [place] [address] RBC Canceled Normal [facility] Comment on above: Order Comment: TEST CBC WAS CANCELLED, 12/01/2020 18:56 NO SPECIMEN RECEIVED IN LAB. Performed By: #### C BC #### [facility] [address] [place] [address] RDW-CV Canceled Normal [facility] Comment on above: Order Comment: TEST CBC WAS CANCELLED, 12/01/2020 18:56 NO SPECIMEN RECEIVED IN LAB. Performed By: #### C BC #### [facility] [address] [place] [address] WBC Canceled Normal [facility] Comment on above: Order Comment: TEST CBC WAS CANCELLED, 12/01/2020 18:56 NO SPECIMEN RECEIVED IN LAB. Performed By: #### C BC #### [facility] [address] [place] [address] BASIC METABOLIC PANELon 11-17 ANION GAP Canceled Normal [facility] Comment on above: Order Comment: TEST BASIC METABOLIC PANEL WAS CANCELLED, 11/29/2020 10:53 NO SPECIMENRECEIVED IN LAB. Performed By: #### B MP ####[id number] [place] [address] BICARBONATE Canceled Normal [facility] Comment on above: Order Comment: TEST BASIC METABOLIC PANEL WAS CANCELLED, 11/29/2020 10:53 NO SPECIMENRECEIVED IN LAB. Performed By: #### B MP ####[id number] [place] [address] CALCIUM Canceled Normal [facility] Comment on above: Order Comment: TEST BASIC METABOLIC PANEL WAS CANCELLED, 11/29/2020 10:53 NO SPECIMENRECEIVED IN LAB. Performed By: #### B MP ####[id number] [place] [address] CHLORIDE Canceled Normal [facility] Comment on above: Order Comment: TEST BASIC METABOLIC PANEL WAS CANCELLED, 11/29/2020 10:53 NO SPECIMENRECEIVED IN LAB. Performed By: #### B MP ####[id number] [place] [address] CREATININE Canceled Normal [facility] Comment on above: Order Comment: TEST BASIC METABOLIC PANEL WAS CANCELLED, 11/29/2020 10:53 NO SPECIMENRECEIVED IN LAB. Performed By: #### B MP ####[id number] [place] [address] GFR- AM. Canceled Normal [facility] Comment on above: Order Comment: TEST BASIC METABOLIC PANEL WAS CANCELLED, 11/29/2020 10:53 NO SPECIMENRECEIVED IN LAB. Result Comment: CALC ULATIONS OF ESTIMATED GFR ARE PERFORMED USING THE MDRD STUDY EQUATION FOR THE IDMS-TRACEABLE CREATININE METHODS. CLIN CHEM 2007;53:766-72 Performed By: #### B MP ####[id number] [place] [address] GFR-NON AM. Canceled Normal [facility] Comment on above: Order Comment: TEST BASIC METABOLIC PANEL WAS CANCELLED, 11/29/2020 10:53 NO SPECIMENRECEIVED IN LAB. Performed By: #### B MP ####[id number] [place] [address] GLUCOSE Canceled Normal [facility] Comment on above: Order Comment: TEST BASIC METABOLIC PANEL WAS CANCELLED, 11/29/2020 10:53 NO SPECIMENRECEIVED IN LAB. Performed By: #### B MP ####[id number] [place] [address] POTASSIUM Canceled Normal [facility] Comment on above: Order Comment: TEST BASIC METABOLIC PANEL WAS CANCELLED, 11/29/2020 10:53 NO SPECIMENRECEIVED IN LAB. Performed By: #### B MP ####[id number] [place] [address] SODIUM Canceled Normal [facility] Comment on above: Order Comment: TEST BASIC METABOLIC PANEL WAS CANCELLED, 11/29/2020 10:53 NO SPECIMENRECEIVED IN LAB. Performed By: #### B MP ####[id number] [place] [address] UREA NITROGEN Canceled Normal [facility] Comment on above: Order Comment: TEST BASIC METABOLIC PANEL WAS CANCELLED, 11/29/2020 10:53 NO SPECIMENRECEIVED IN LAB. Performed By: #### B MP ####[id number] [place] [address] CBCon 11-29-2020 HCT Canceled Normal [facility] Comment on above: Order Comment: TEST CBC WAS CANCELLED, 11/29/2020 10:53 NO SPECIMEN RECEIVED IN LAB. Performed By: #### C BC ####[id number] [place] [address] HGB Canceled Normal [facility] Comment on above: Order Comment: TEST CBC WAS CANCELLED, 11/29/2020 10:53 NO SPECIMEN RECEIVED IN LAB. Performed By: #### C BC ####[id number] [place] [address] MCHC Canceled Normal [facility] Comment on above: Order Comment: TEST CBC WAS CANCELLED, 11/29/2020 10:53 NO SPECIMEN RECEIVED IN LAB. Performed By: #### C BC ####[id number] [place] [address] MCV Canceled Normal [facility] Comment on above: Order Comment: TEST CBC WAS CANCELLED, 11/29/2020 10:53 NO SPECIMEN RECEIVED IN LAB. Performed By: #### C BC ####[id number] [place] [address] NUCLEATED RBC Canceled Normal [facility] Comment on above: Order Comment: TEST CBC WAS CANCELLED, 11/29/2020 10:53 NO SPECIMEN RECEIVED IN LAB. Performed By: #### C BC ####[id number] [place] [address] PLT Canceled Normal [facility] Comment on above: Order Comment: TEST CBC WAS CANCELLED, 11/29/2020 10:53 NO SPECIMEN RECEIVED IN LAB. Performed By: #### C BC ####[id number] [place] [address] RBC Canceled Normal [facility] Comment on above: Order Comment: TEST CBC WAS CANCELLED, 11/29/2020 10:53 NO SPECIMEN RECEIVED IN LAB. Performed By: #### C BC ####[id number] [place] [address] RDW-CV Canceled Normal [facility] Comment on above: Order Comment: TEST CBC WAS CANCELLED, 11/29/2020 10:53 NO SPECIMEN RECEIVED IN LAB. Performed By: #### C BC ####[id number] [place] [address] WBC Canceled Normal [facility] Comment on above: Order Comment: TEST CBC WAS CANCELLED, 11/29/2020 10:53 NO SPECIMEN RECEIVED IN LAB. Performed By: #### C BC ####[id number] [place] [address] BASIC METABOLIC PANELon 11-17 Anion gap [Moles/Vol] 15 mmol/L Normal 10 - 20 [facility] Comment on above: Performed By: #### B MP #### [facility] [address] [place] [address] Calcium [Mass/Vol] 9.7 mg/dL Normal 8.6 - 10.6 [facility] Comment on above: Performed By: #### B MP #### [facility] [address] [place] [address] Chloride [Moles/Vol] 99 mmol/L Normal 98 - 107 [facility] Comment on above: Performed By: #### B MP #### [facility] [address] [place] [address] Creatinine [Mass/Vol] 0.81 mg/dL Normal 0.50 - 1.30 [facility] Comment on above: Performed By: #### B MP #### [facility] [address] [place] [address] GFR- AM. >60 Normal >60 [facility] Comment on above: Result Comment: CALC ULATIONS OF ESTIMATED GFR ARE PERFORMED USING THE MDRD STUDY EQUATION FOR THE IDMS-TRACEABLE CREATININE METHODS. CLIN CHEM 2007;53:766-72 Performed By: #### B MP #### [facility] [address] [place] [address] GFR-NON AM. >60 Normal >60 [facility] Comment on above: Performed By: #### B MP #### [facility] [address] [place] [address] Glucose [Mass/Vol] 188 mg/dL High 74 - 99 [facility] Comment on above: Performed By: #### B MP #### [facility] [address] [place] [address] HCO3 (Bld) [Moles/Vol] 26 mmol/L Normal 21 - 32 [facility] Comment on above: Performed By: #### B MP #### [facility] [address] [place] [address] Potassium [Moles/Vol] 5.1 mmol/L Normal 3.5 - 5.3 [facility] Comment on above: Performed By: #### B MP #### [facility] [address] [place] [address] Sodium [Moles/Vol] 135 mmol/L Low 136 - 145 [facility] Comment on above: Performed By: #### B MP #### [facility] [address] [place] [address] Urea nitrogen [Mass/Vol] 16 mg/dL Normal 6 - 23 [facility] Comment on above: Performed By: #### B MP #### [facility] [address] [place] [address] CBCon 11-27-2020 Erythrocyte distribution width (RBC) [Ratio] 12.8 % Normal 11.5 - 14.5 [facility] Comment on above: Performed By: #### C BC #### [facility] [address] [place] [address] Hematocrit (Bld) [Volume fraction] 43.9 % Normal 41.0 - 52.0 [facility] Comment on above: Performed By: #### C BC #### [facility] [address] [place] [address] Hemoglobin (Bld) [Mass/Vol] 14.2 g/dL Normal 13.5 - 17.5 [facility] Comment on above: Performed By: #### C BC #### [facility] [address] [address] [place], [place] MCHC (RBC) [Mass/Vol] 32.3 g/dL Normal 32.0 - 36.0 [facility] Comment on above: Performed By: #### C BC #### [facility] [address] [place] [address] MCV (RBC) [Entitic vol] 94 fL Normal 80 - 100 [facility] Comment on above: Performed By: #### C BC #### [facility] [address] [address] [place], [place] NUCLEATED RBC 0.0 /100 WBC Normal 0.0-0.0 [facility] Comment on above: Performed By: #### C BC #### [facility] [address] [place] [address] Platelets (Bld) [#/Vol] 237 10*3/uL Normal 150 - 450 [facility] Comment on above: Performed By: #### C BC #### [facility] [address] [place] [address] RBC 4.65 x10E12/L Normal 4.50 - 5.90 [facility] Comment on above: Performed By: #### C BC #### [facility] [address] [place] [address] WBC (Bld) [#/Vol] 8.5 10*3/uL Normal 4.4 - 11.3 [facility] Comment on above: Performed By: #### C BC #### [facility] [address] [place] [address] Daily Progress Note-Orthopae nenitason 11-27-2020 Daily Progress Note-Orthopaedics Service: Orthopaedics Subjective [...] advance as tolerated. Bowel regimen - dc UX DESIGNER, POPM starting POD1. Scheduled tylenol. Robaxin. Continue [...] Kevin Marshall MD, PGY-2 Orthopedic Spine Team [phone] Available on [facility] Orthopedic Spine Team Kevin Marshall, PGY-2 ([id number]) Amrit Long PGY-3 ([id number]) Lambert Suarez PGY-4 ([id number]) Please call fire prevention inspector resident ([phone]) nights after 6pm and weekends Attestation: Note [...] Updated: 11-Dec-2020 15:25 by Bee Blackmon) Normal [facility] Laboratory - Chemistry and C hemistry - challengeon 11-27-2020 Anion gap [Moles/Vol] 15 mmol/L 10 - 20 [facility]Orthopaed ics-[employer] Work Phone: Calcium [Mass/Vol] 9.7 mg/dL 8.6 - 10.6 MG-Ort hopaed [facility] Work Phone: Chloride [Moles/Vol] 99 mmol/L 98 - 107 [facility] Work Phone: CO2 [Moles/Vol] 26 mmol/L 21 - 32 [facility]Orthop aed ics-[employer] Work Phone: Creatinine [Mass/Vol] 0.81 mg/dL See Below [facility] Work Phone: Comment on above: Reference Range: 0.5 0 - 1.30 Glucose [Mass/Vol] 188 mg/dL above high threshold 74 - 99 MG[facility]Orthopaed [employer] Work Phone: Potassium [Moles/Vol] 5.1 mmol/L 3.5 - 5.3 [facility] Work Phone: Sodium [Moles/Vol] 135 mmol/L below low threshold 136 - 145 [facility] Work Phone: Urea nitrogen [Mass/Vol] 16 mg/dL 6 - 23 [facility]Orthopaed [employer] Work Phone: Laboratory - Hematology and Cell countson 11-27-2020 Erythrocyte distribution width (RBC) [Ratio] 12.8 % See Below [facility] Work Phone: Comment on above: Reference Range: 11. 5 - 14.5 Hematocrit (Bld) [Volume fraction] 43.9 % See Below [facility] Work Phone: Comment on above: Reference Range: 41. 0 - 52.0 Hemoglobin (Bld) [Mass/Vol] 14.2 g/dL See Below [facility] Work Phone: Comment on above: Reference Range: 13. 5 - 17.5 MCHC (RBC) [Mass/Vol] 32.3 g/dL See Below [facility]opa[facility] Work Phone: Comment on above: Reference Range: 32. 0 - 36.0 MCV (RBC) [Entitic vol] 94 fL 80 - 100 [facility] [employer] Work Phone: Platelets (Bld) [#/Vol] 237 10*3/uL 150 - 450 [facility] Work Phone: RBC (Bld) [#/Vol] 4.65 {x10E12/L} See Below [facility]thopa[facility] [employer] Work Phone: Comment on above: Reference Range: 4.5 0 - 5.90 WBC (Bld) [#/Vol] 8.5 10*3/uL 4.4 - 11.3 [facility]Ort hopaed [facility] Work Phone: No Panel Informationon 11-27 >60 >60 [facility]opa[facility] Work Phone: Comment on above: CALCULATIONS OF LUCHO MATED GFR ARE PERFORMED USING THE MDRD STUDY EQUATION FOR THE IDMS-TRACEABLE CREATININE METHODS. CLIN CHEM 2007;53:766-72 0.0 {/100_WBC} 0.0-0.0 MG-Orthopa ed [facility] Work Phone: Daily Progress Note-Orthopae thanh 11-26-2020 [...] diet, advance as tolerated. Bowel regimen - UX DESIGNER, will attempt to wean POD#1. Scheduled tylenol. [...] Lambert Suarez MD Orthopedic Surgery PGY-4 Pager: [phone] Please page consult resident ([phone]) from 6pm-8am and on weekends. Attestation: Note [...] the note. I personally evaluated the patient [id number] Electronic Signatures: Bee Blackmon) (Signed 11-Dec-2020 15:23) Authored: Note Completion Co-Signer: Service, Subjective Data, Objective Data, Assessment and Plan, Note Completion Lambert Suarez (Resident)) (Signed 26-Nov-2020 14:32) Authored: Service, Subjective Data, Objective Data, Assessment and Plan, Note Completion Last Updated: 11-Dec-2020 15:23 by Bee Blackmon) Normal [facility] Discharge [id number] Discharge Profile2 Discharge Orders: Significant Events: [...] Spine Reason for ReferralPostoperative Follow-Up Appointment Scheduled Date/[id number] 11:15 [id number], Phone NumberOffice: ([place], ) - [phone] CommentsPlease Call Tara Gonzalez RN at [phone] For Any Post-Op Questions Electronic Signatures: Tara Gonzalez (RN) (Signed 26-Nov-2020 13:51) Authored: Discharge Orders, Appointments, Gold Form - Air Transportation Provider Summary Bee Blackmon) (Signed 10-Dec-2020 17:40) Co-Signer: Discharge Orders, Hospital Course (Home Care/Gold Form), Provider FINAL REVIEW of Orders, Appointments, Gold Form - Air Transportation Provider Summary Lambert Suarez (Resident)) (Signed 26-Nov-2020 14:34) Entered: Hospital Course (Home Care/Gold Form), Provider FINAL REVIEW of Orders Authored: Discharge Orders, Hospital Course (Home Care/Gold Form), Provider FINAL REVIEW of Orders, Appointments, Gold Form - Air Transportation Provider Summary Last Updated: 10-Dec-2020 17:40 by Bee Blackmon) Normal [facility] GLUCOSE-POCTon 11-26-2020 Glucose [Mass/Vol] 186 mg/dL High 74 - 99 [facility] Comment on above: Performed By: #### G BABS #### [place] [address] Laboratory - Chemistry and C hemistry - challengeon 11-26-2020 Glucose [Mass/Vol] 186 mg/dL above high threshold 74 - 99 [facility] Work Phone: No Panel Informationon 11-26 Please click on the link to view the study images Normal [facility] Work Phone: [facility] [place] [address] Patient Name: RYAN. 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 SURGEON: Bee Blackmon MD MANAGER PART(S): Lambert Suarez MD ANESTHESIA: General. CLINICAL NOTE [...] confirm retractor (more content not included)... Normal [facility] Order Reconciliationon 11-26 Order Reconciliation [...] days, th (more content not included)... Normal [facility] Order Reconciliation Page 1 Admission Reconciliation Document Reconciliation Type: Admission from OR requested on behalf of Lambert Suarez (Resident) done by Lambert Suarez ( (Resident)) Admission from OR - Reconciliation: 26-Nov-2020 14:21 by: Lambert Suarez ( (Resident)) Home MedicationsEnteredLast Dose TakenReconciled with current Order Reconciliation Comment/ Additional Information DULoxetine 60 mg oral delayed release capsule 1 cap(s) orally once a day [id number] AM DULoxetine Delayed Release Capsule (CYMBALTA)DOSE = 60 mg Oral DailyDULoxetine 60 mg oral delayed release capsule continued as the inpatient order DULoxetine fenofibrate 48 mg oral tablet 1 tab(s) orally once a [id number]-2020 AM Reviewed and Held lisinopril 20 mg oral tablet 1 tab(s) orally once a [id number] AM Lisinopril Tablet (PRINIVIL, ZESTRIL)DOSE = 20 [...] orally once a day (in the evening) [id number] Reviewed and Held Additional Current Orders Albuterol [...] 15 minute(s)Clinician Notes: Charmaine-operative order ONLY Normal [facility] Patient Profile - Preop v2on 11-26-2020 Patient Profile - Preop v2 Profile: Initial Info: How to be AddressedRyan Spoken Language PreferredEnglish Stated Reason for Admissionl3-4 cage Primary Contact Name and NumberMarvine, Patient Belongingssee preop checklist Medications Brought to Hospitalno General Health: Weight in kg129.7 kilogram(s) Weight in ipp394.9 pound(s) Weight Methodactual (measured) Scale Typestanding Height [...] Learning Preferencesindividual instruction Cultural Considerationsnone Developmental Considerationsnone Jew Considerationsnone Other learner availableno [place] RiskPatient location auto qualifies him/her for HIGH RISK. Are there any cultural, spiritual, catholic practices/values/needs that are important for us to [...] 26-Nov-2020 12:05 by Pat Padilla (BENI) Normal [facility] Vital Signs Date Time Vital Sign Value Performing Clinician Facility 03-27-2024 09:46-0500 Body mass index (BMI) [Ratio] 34.72 kg/m2 Karon Rodriguez NP Work Phone: [facility] 03-27-2024 09:46-0500 Body weight 116.12 kg Karon Rodriguez [employer] Work Phone: [facility] 03-27-2024 09:46-0500 Diastolic blood pressure 96 mm[Hg] Karon Rodriguez [employer] Work Phone: [facility] 03-27-2024 09:46-0500 Heart rate 82 /min Karon Rodriguez [employer] Work Phone: [facility] 03-27-2024 09:46-0500 Systolic blood pressure 148 mm[Hg] Karon Rodriguez [employer] Work Phone: [facility] 09-15-2023 10:11-0400 Body height 184.15 cm DO Kimi Weiss Work Phone: [facility] 09-15-2023 10:11-0400 Body mass index (BMI) [Ratio] 35.2 kg/m2 DO Kimi Weiss Work Phone: [facility] 09-15-2023 10:11-0400 Body weight 119.29 kg DO Kimi Weiss Work Phone: [facility] 09-07-2023 10:35-0400 Diastolic blood pressure 98 mm[Hg] DO Kimi Weiss Work Phone: [facility] 09-07-2023 10:35-0400 Heart rate 102 /min DO Kimi Weiss Work Phone: [facility] 09-07-2023 10:35-0400 Respiratory rate 20 /min DO Kimi Weiss Work Phone: [facility] 09-07-2023 10:35-0400 SaO2% (BldA) [Mass fraction] 96 % DO Kimi Weiss Work Phone: [facility] 09-07-2023 10:35-0400 Systolic blood pressure 160 mm[Hg] DO Kimi Weiss Work Phone: [facility] 09-07-2023 10:00-0400 Inhaled oxygen flow rate 3 L/min DO Kimi Weiss Work Phone: [facility] 09-07-2023 09:19-0400 Body height 182.88 cm DO Kmii Wiess Work Phone: [facility] 09-07-2023 09:19-0400 Body weight 120.2 kg DO Kimi Weiss Work Phone: [facility] 09-16-2021 14:17-0400 Body mass index (BMI) [Ratio] 34.45 kg/m2 Kimi Weiss Work Phone: WB-Rrzrfex-Pdgzv [facility] Work Phone: 09-16-2021 14:17-0400 Body surface area Derived from formula 2.36 m2 Kimi Weiss Work Phone: YC-Dojvjro-Leduv [facility] [address] Work Phone: 09-16-2021 14:17-0400 Body weight 115.21 kg Kimi Weiss Work Phone: YT-Qlzkzua-Ksgrd [facility] [address] Work Phone: 07-23-2021 09:45-0400 Body height 184.15 cm Charles Brisenodelma Other [employer] Other 07-23-2021 09:45-0400 Body mass index (BMI) [Ratio] 34.51 kg/m2 Charles Claros Other [employer] Other 07-23-2021 09:45-0400 Body weight 117.03 kg Charles Claros Other [employer] Other 06-18-2021 14:17-0500 Body mass index (BMI) [Ratio] 36.75 kg/m2 Kimi Weiss Work Phone: XN-Fsucztw-Gyvbb [facility] [address] Work Phone: 06-18-2021 14:17-0500 Body surface area Derived from formula 2.42 m2 Kimi Weiss Work Phone: OY-Afqsmus-Peuor [facility] [address] Work Phone: 06-18-2021 14:17-0500 Body weight 122.93 kg Kimi Weiss Work Phone: EN-Sntauod-Aslny [facility] [address] Work Phone: 04-23-2021 09:49-0500 Body height 182.88 cm Kimi Weiss Work Phone: YY-Tkqnvep-Oagap [facility] [address] Work Phone: 04-23-2021 09:49-0500 Body mass index (BMI) [Ratio] 39.6 kg/m2 Kimi Weiss Work Phone: KU-Mlmeczj-Gvito [facility] [address] Work Phone: 04-23-2021 09:49-0500 Body surface area Derived from formula 2.5 m2 Kimi Weiss Work Phone: HG-Mklctbs-Pbxur [facility] Work Phone: 04-23-2021 09:49-0500 Body weight 132.45 kg Kimi Santos Abhishek Work Phone: GQ-Pntyrqy-Vphpq [facility] [address] Work Phone: 04-02-2021 09:45-0500 Body height 184.15 cm Charles Claros Other [employer] Other 04-02-2021 09:45-0500 Body mass index (BMI) [Ratio] 35.44 kg/m2 Charles Claros Other [employer] Other 04-02-2021 09:45-0500 Body weight 120.2 kg Charles Claros Other [employer] Other Encounters Encounter Date Encounter Type Care Provider Facility Start: 04-03-2024 End: 04-03-2024 ambulatory Kimi Weiss Facility: [facility] Start: 03-27-2024 End: 03-27-2024 Bamboo flowsheet Karon Rodriguez [employer] Work Phone: [facility] Start: 03-27-2024 End: 03-27-2024 Bamboo flowsheet Karon Rodriguez [employer] Work Phone: [facility] Start: 03-27-2024 End: 03-27-2024 Office outpatient visit 25 minutes Karon Rodriguez [employer] Work Phone: [employer] Comment on above: Chronic cluster head ache, not intractable (Primary Dx); Essential hypertension (CMS/HCC); History of blood clots Start: 03-27-2024 End: 03-27-2024 ambulatory KARON RODRIGUEZ Not Available Start: 03-07-2024 ambulatory Kimi Weiss Facili ty:[facility] Start: 02-21-2024 End: 02-21-2024 ambulatory Kimi Weiss Facility: [facility] Start: 02-07-2024 End: 02-07-2024 ambulatory Kimi Weiss Facility: [facility] Start: 01-17-2024 End: 01-17-2024 ambulatory BEE [facility] Start: 01-03-2024 End: 01-03-2024 ambulatory Kimi Danielle Weiss Facility: [facility] Start: 11-30-2023 End: 11-30-2023 ambulatory KARON RODRIGUEZ Not Available Start: 09-15-2023 End: 09-15-2023 ambulatory Kimi Weiss Facility:[facility] Start: 09-15-2023 End: 09-15-2023 ambulatory DO Kimi Weiss Work Phone: [facility] Work Phone: Start: 09-15-2023 End: 09-15-2023 Patient encounter procedure DO Kimi Abhishek Work Phone: [facility] Work Phone: Start: 09-07-2023 End: 09-07-2023 ambulatory Charles Claros Facility:[facility] Start: 09-07-2023 Non-patient / Non-visit DO Mike sandy Abhishek Work Phone: [facility] Work Phone: Start: 09-07-2023 End: 09-07-2023 Admission to same day surgery center DO Kimi Weiss Work Phone: [facility] Work Phone: Start: 09-07-2023 End: 09-07-2023 ambulatory DO Kimi Weiss Work Phone: [facility] Work Phone: Start: 08-16-2023 ambulatory Kimi Almazani ty:[facility] Start: 08-09-2023 End: 08-09-2023 ambulatory THALIA VIKA Not Available Start: 08-05-2023 End: 08-05-2023 ambulatory [facility] Work Phone: Start: 08-05-2023 End: 08-05-2023 Patient encounter procedure [facility] Work Phone: Start: 06-24-2023 End: 06-24-2023 ambulatory Kimi Weiss Facility: [facility] Start: 04-23-2023 End: 04-23-2023 ambulatory Kimi Weiss Facility: [facility] Start: 04-22-2023 End: 04-22-2023 ambulatory Charles Claros Other [employer] Other Start: 04-22-2023 Telephone encounter Charles HOLT [facility] [place] Start: 04-08-2023 ambulatory Kimi Weiss Facili ty: [facility] Start: 04-01-2023 End: 04-01-2023 ambulatory Charles Brisenoer Other [employer] Other Start: 04-01-2023 Office outpatient vi sit 25 minutes Charles Claros [facility] [place] Start: 04-01-2023 Telephone encounter Charles HOLT [facility] Start: 01-21-2023 End: 01-21-2023 ambulatory Charles Brisenoer Other [employer] Other Start: 01-21-2023 Office outpatient vi sit 25 minutes Charles Claros [facility] [place] Start: 01-21-2023 Telephone encounter Charles HOLT [facility] Start: 10-06-2022 End: 10-06-2022 ambulatory Charles Brisenoer Other [employer] Other Start: 10-06-2022 Office outpatient vi sit 25 minutes Charles Brisenoer [facility] [place] Start: 10-06-2022 Telephone encounter Charles HOLT [facility] Start: 07-23-2022 ambulatory Bee Blackmon Facility :[id number] Start: 06-01-2022 End: 06-01-2022 ambulatory Charles Claros Other [employer] Other Start: 06-01-2022 Office outpatient vi sit 25 minutes Charles Claros [facility] [place] Start: 06-01-2022 Telephone encounter Charles Burnham [facility] [place] Start: 05-13-2022 AUDIT Kimi Rasmussen on Work Phone: PX-Wpguulkrreww-Kgcdrnn e Work Phone: Start: 05-12-[address] Kimi Weiss Facility:[id number] Start: 04-27-2022 Office outpatient vi sit 40 minutes Kimi Weiss Work Phone: KA-Qraoqwjwebeh-Tqkwfty e Work Phone: Start: 04-14-2022 End: 04-14-[address] DANIEL BENITEZ Facility:H1 Start: 02-18-2022 End: 02-18-2022 ambulatory Charles Claros Other [employer] Other Start: 02-18-2022 Office outpatient vi sit 25 minutes Charles Claros [facility] [place] Start: 02-18-2022 Telephone encounter Charles Burnham [facility] Start: 12-15-2021 End: 12-15-2021 ambulatory Charles Claros Other [employer] Other Start: 12-15-2021 Office outpatient vi sit 25 minutes Charles Claros [facility] [place] Start: 09-29-2021 Office outpatient ne w 30 minutes Kimi Weiss Work Phone: YW-Ukqkutlwdmew-Vurvypf e Work Phone: Start: 09-16-2021 Office outpatient vi sit 25 minutes Kimi Weiss Work Phone: CK-Qasvpbe-Dinrq [facility] [address] Work Phone: Start: 07-28-2021 Office outpatient vi sit 15 minutes Kimi Weiss Work Phone: QW-Ufiksgafthwc-Sqefsmk e Work Phone: Start: 07-23-2021 End: 07-23-2021 ambulatory Charles Brisenodelma Other [employer] Other Start: 07-23-2021 Office outpatient vi sit 25 minutes Charles Claros [facility] [place] Start: 06-18-2021 Office outpatient vi sit 25 minutes Kimi Weiss Work Phone: ML-Gjcsubz-Ycupj [facility] [address] Work Phone: Start: 06-03-2021 PAYAM, Provider : Shobha Gomez, Status: Pen, Time: 8:30 AM Kimi Weiss Work Phone: VX-Celmoue-Jeewv [facility] [address] Work Phone: Start: 06-02-2021 AUDIT Kimi Rasmussen on Work Phone: LI-Hfetuno-Qhkbt [facility] [address] Work Phone: Start: 04-23-2021 Current tobacco non- user cad cap copd pv dm Kimi Weiss Work Phone: IF-Ccxjpwr-Nkaoy [facility] [address] Work Phone: Start: 04-02-2021 End: 04-02-2021 ambulatory Charles Brisenodelma Other [employer] Other Start: 04-02-2021 Office outpatient vi sit 25 minutes Charles Claros [facility] [place] Start: 03-10-2021 Office outpatient vi sit 15 minutes Kimi Weiss Work Phone: LI-Apahhzyzdvnf-Krmdyag e Work Phone: Start: 02-05-2021 Office outpatient vi sit 25 minutes Charles Claros [facility] [place] Start: 12-09-2020 Postop follow up vis it related to original px Kimi Weiss Work Phone: MC-Dzpgqnedagdk-Heriqni e Work Phone: Start: 11-26-2020 End: 11-27-2020 Evaluation and management of inpatient Bee Viramontes [place] 33 Start: 10-31-2020 Phys/qhp telephone evaluation 21-30 min Referring Provider Unknown BT-Usezpgbejmpx-Uxdgbk Work Phone: Procedures Date Procedure Procedure Detail [...] Screening for malign ant neoplasm of colon [facility] Start: 07-11-2024 End: 07-11-2024 Patient encounter procedure 07/11/2024 9:40 AM EDT Office Visit [facility] [address] [place] [address] Karon Rodriguez NP [address] [place], [place] [id number] [facility] Start: 03-27-2024 End: 03-27-2024 Patient encounter procedure 03/27/2024 9:40 AM EST [facility] [address] [place] [address] Karon Rodriguez NP [address] [place], [place] [id number] Arrived [facility] Comment on above: Arrived Start: 12-19-2023 Influenza vaccination Influenza Vacc ine (#1) [facility] Start: 09-15-2023 X-ray of lumbar spin e, four views XR lumbar spine AP/LAT/FLX/EXT [facility] Start: 09-15-2023 XR Lumbar spine 4 Views [facility] Start: 09-15-2023 Plain X-ray of right hip XR hip RT min 2V(w/wo pelvis)* [facility] Start: 09-15-2023 XR Hip - right 2 Views [facility] Start: 09-07-2023 [facility] Start: 06-11-2022 EMG, Provider: [place] [facility] EMG ARAIZA,[id number], Status: Pen, Time: 10:30 AM EMG, Provider: NEURODIAG E[facility]01 EMG ARAIZA,[id number], Status: Pen, Time: 10:30 AM HW-Yvytnuuzqfpv-Cugnuj ke Work Phone: Start: 05-04-2022 VIRFUVHOME, Provider : Marisol Husain, Status: Pen, Time: 8:45 AM VIRFUVHOME, Provider: Marisol Husain, Status: Pen, Time: 8:45 AM XT-Tuoxxtvxrkrc-Ufcigw ke Work Phone: Start: 01-13-2022 VIRFUVNIKE, Provider : Marisol Husain, Status: Pen, Time: 2:15 PM VIRFUVHOME, Provider: Marisol Husain, Status: Pen, Time: 2:15 PM VX-Wshfiqmjcjch-Mvijui ke Work Phone: Start: 09-29-2021 FUV, Provider: Bee Blackmon, Status: Pen, Time: 11:30 AM FUV, Provider: Bee Blackmon, Status: Pen, Time: 11:30 AM LK-Wldcwis-Obyuk [facility] [address] Work Phone: Start: 09-16-2021 VIRFUVHOME, Provider : Marisol Husain, Status: Pen, Time: 2:15 PM VIRFUVHOME, Provider: Marisol Husain, Status: Pen, Time: 2:15 PM MH-Pzpodkswlnkk-Kbtxyf ke Work Phone: Start: 06-18-2021 VIRFUVHOME, Provider : Marisol Husain, Status: Pen, Time: 2:15 PM VIRFUVHOME, Provider: Marisol Husain, Status: Pen, Time: 2:15 PM SN-Whneqjz-Mpafn [facility] Work Phone: Start: 04-23-2021 NPV, Provider: Marisol Husain, Status: Pen, Time: 10:00 AM NPV, Provider: Marisol Husain, Status: Pen, Time: 10:00 AM [facility] Work Phone: Start: 03-10-2021 FUV, Provider: Bee Blackmon, Status: Pen, Time: 11:15 AM FUV, Provider: Bee Blackmon, Status: Pen, Time: 11:15 [address] RD-Mfarkmbcinge-Slfguh ke Work Phone: Start: 03-10-2021 Patient encounter procedure [facility] [place] Start: 12-16-2020 POV, Provider: Bee Blackmon, Status: Pen, Time: 11:15 AM POV, Provider: Bee Blackmon, Status: Pen, Time: 11:15 AM SP-Dzetrnvuolkt-Zqtnfa Work Phone: Start: 11-26-2020 SURGCMC, Provider: Bee Blackmon, Status: Pen, Time: 8:30 AM SURGCMC, Provider: Bee Blackmon, Status: Pen, Time: 8:30 AM LY-Kooivyebwtkb-Tshdre Work Phone: Start: 1965 Screening for malign ant neoplasm of colon [facility] Patient Education Know your Meds Felter Non Diagnostic Block [facility] Work Phone: Patient referral [facility] Work Phone: Immunizations Immunization Date Immunization Notes Care Provider Nestor olvera 07-22-2020 Pfizer-BioNTech COVID-19 Vacc 30 MCG/0.3ML Intramuscular Suspension Referring Provider Unknown JH-Uitdtlwyegbk-Avujs a Work Phone: 07-01-2020 Pfizer-BioNTech COVID-19 Vacc 30 MCG/0.3ML Intramuscular Suspension Referring Provider Unknown CB-Ypqjjwugtbxh-Yofrq a Work Phone: 01-27-2020 influenza, injectabl e, quadrivalent, preservative free Referring Provider Unknown PJ-Vfviuhfehsph-Sbngp a Work Phone: 01-27-2020 influenza virus vaccine, unspecified formulation Karon Rodriguez NP Work Phone: [facility] 02-13-2019 influenza, injectabl e, quadrivalent, contains preservative Referring Provider Unknown HG-Ernqpnsgwmyi-Xpuho a Work Phone: 02-21-2018 influenza, injectabl e, quadrivalent, preservative free Referring Provider Unknown LY-Avmwioekhsaq-Pmzmf a Work Phone: 01-30-2017 KENALOG - 10 mg Charles weaver Other [employer] Other 01-17-2014 influenza, seasonal, injectable Referring Provider Unknown MB-Luftizaeyetx-Mjmgy a Work Phone: Payers Date Payer Category Payer Self-pay [id number] 2022 Private Health Insurance [facility] [id number] 2022 Unknown [id number] [id number] 1966 Unknown [id number] 2.16.840.1.483803.3.579. 2.1069 1966 Unknown [id number] 2.16.840.1.896134.3.579. 2.593 1965 Unknown [id number] 2.16.840.1.258424.3.579. 2.1068 1966 Unknown [id number] 2.16.840.1.740854.3.579. 2.1245 1966 Unknown [id number] 2.16.840.1.257268.3.579. 2.9 1966 Unknown [id number] 2.16.840.1.589598.3.579. 2.9 1966 Unknown [id number] 2.16.840.1.711581.3.579. 2.1258 1966 Unknown [id number] 2.16.840.1.331594.3.579. 2. 1965 Unknown [id number] 2.16.840.1.242243.3.579. 2. 1965 Unknown [id number] 2.16.840.1.187069.3.579. 2. 1965 Unknown [id number] 2.16.840.1.178826.3.579. 2. 1965 Unknown [id number] 2.16.840.1.665745.3.579. 2. 1965 Unknown [id number] 2.16.840.1.065995.3.579. 2. 1965 Unknown [id number] 2.16.840.1.467726.3.579. 2. 1965 Unknown [id number] 2. 1965 Unknown [id number] [id number] 1958 Unknown [id number] Unknown Unknown [id number] Unknown [id number] Unknown [id number]. 2.531 Unknown [id number] 2.531 Social History Date Type Detail Facility [facility] Tobacco smoking consumption unknown [facility] Start: 08-08-2023 Non-smoker Non-smoker [facility] Work Phone: Start: 08-08-2023 Sex Assigned At N check24 Other Start: 02-29-2020 End: 08-08-2023 Tobacco smoking status NHIS Never smoked tobacco (finding) [facility] Start: 1965 Sex Assigned At Male F [facility] Start: 11-30-2023 End: 03-27-2024 Alcoholic beverage intake Lifetime non-drinker (finding) [facility] Start: 1965 Sex assigned at Not on file N [facility] Medical Equipment Procedure Code Equipment Code Equipment Origin al Text Equipment Identifier Dates USE DIRECTED TO TEST BLOOD SUGAR EVERY DAY Start: 02-07-2024 Goals Date Patient Goal Desired Activity /State Functional Status Date Assessment Result Facility Functional observable [facility] Mental Status Date Assessment Result Facility 11-26-2020 Cognitive functi ons [id number] [facility] Clinical Notes 03-10-2018 to 03-27-2024 Karon Rodriguez NP - 03/27/2024 9:40 AM EST Note Date & Type Note Facility 03-27-2024 Note - From: Whitney Jordan RN ([facility] ([facility] To: Mariah Machado CNP; Sent: 03/27/2024 07:29:10 EST Subject: FW: Medication Management Due Date/Time: 03/27/2024 08:58:00 EST Caller Name: LYLY QUINN; Caller Number: , M From: [facility] #[id number] To: Kimi Weiss DO Sent: March 25, 2024 7:58:45 AM FLY WORKER Subject: Medication Management Due: March 26, 2024 12:30:42 AM FLY WORKER On Hold Pending Signature Dispensed Drug: ONE [...] 0 Substitutions Allowed Notes from Pharmacy: Submitted: Order:!-[facility] Request. (ONE TOUCH VERIO FLEX BG MONITOR) See Instructions USE DIRECTED DAILY Qty: 1 EA Days Supply: 30 Refills: 0 Substitutions Allowed Route To Pharmacy [facility] #[id number] Signed by Mariah Machado APRN, CNP 03/27/2024 10:48:00 EST Not Approved: New Rx to follow !-[facility] Request. (ONE TOUCH VERIO FLEX BG MONITOR) USE DIRECTED DAILY Qty: 1 EA Days Supply: 30 Refills: 0 Substitutions Allowed Route To [facility] #[id number] Signed by Mariah Machado APRN, CNP From: Mariah Machado APRN, CNP To: [facility] #[id number] Sent: 03/27/2024 10:48:58 EST Subject: FW: Medication [...] 90 Refills: 1 Substitutions [id number] Signed by Mariah Machado APRN, CNP Approved with modifications: fenofibrate (FENOFIBRATE 48MG TABLETS) TAKE 1 TABLET BY MOUTH DAILY Qty: 90 tab(s) Days Supply: 90 Refills: 1 Substitutions Allowed Route To Pharmacy [facility] #[id number] Signed by Mariah Machado APRN, CNP Approved with modifications: rivaroxaban (XARELTO 20MG TABLETS) TAKE 1 TABLET BY MOUTH DAILY Qty: 90 tab(s) Days Supply: 90 Refills: 1 [facility]stit[id number] Signed by Mariah Machado APRN, CNP [facility] 03-27-2024 History of Present illness Narrative Images [...] a new pain management provider at the [facility] soon. He denies any further concerns today. [...] headache syndrome 04/22/2011 DVT (deep venous thrombosis) ([facility]) Encounter for long-term (current) drug use 09/10/2011 Pulmonary embolism ([facility]) Past Surgical History: Procedure Laterality Date BACK [...] wrist extensors , wrist flexor , and gynecologist strength 5/5. LUE strength deltoid , biceps , triceps , wrist extensors , wrist flexor , and gynecologist strength 5/5. RLE strength illopsoas, quadriceps, tibialis [...] knee reflex 0. Brooke's sign negative Coordination: Gjhcfk-bw-umem testing normal. Rapid alternating movements are normal Gait: Ambulates with a cane, antalgic gait. Difficulty raising from a seated position. Review and summary of old records: MRI of the brain with and without contrast at [facility] on 02/16/23: No acute intracranial process. EMG [...] of the lumbar spine w/o contrast at [facility] () on 05/12/22: Status post interbody spacer [...] clinically significant. EMG of the BLE at [facility] on 11/09/19: There are findings consistent with [...] aura without status migrainosus, not intractable (CMS/HCC) See above. Essential hypertension (CMS/[facility]) PLAN: - Follow closely with primary care [...] All questions answered. documented in this encounter [facility] 03-20-2024 Note - From: Whitney Jordan RN ([facility] ([facility] To: Mariah Machado CNP; Sent: 03/20/2024 07:25:53 EST Subject: FW: Medication Management Due Date/Time: 03/20/2024 03:27:00 EST Caller Name: LYLY QUINN; Caller Number: Alexander , From: [facility] #[id number] To: Kimi Weiss DO Sent: March 18, 2024 2:27:30 AM FLY WORKER Subject: Medication Management Due: March 19, 2024 1:11:06 AM FLY WORKER On Hold Pending Signature Dispensed Drug: DULoxetine [...] 0 Substitutions Allowed Notes from Pharmacy: Submitted: Order:!-[facility] Request. (ONE TOUCH VERIO FLEX BG MONITOR) See Instructions USE DIRECTED DAILY Qty: 1 EA Days Supply: 30 Refills: 0 Substitutions Allowed Route To Pharmacy - [facility] #[id number] Signed by Mariah Machado APRN, CNP 03/20/2024 09:22:00 EST Not Approved: [facility] (ONE TOUCH VERIO FLEX BG MONITOR) USE DIRECTED DAILY Qty: 1 EA Days Supply: 30 Refills: 0 Substitutions Allowed Route To [facility] #[id number] Signed by Mariah Machado APRN, CNP From: Mariah Machado APRN, CNP To: [facility] #[id number] Sent: 03/20/2024 09:23:45 EST Subject: FW: Medication [...] 90 Refills: 0 Substitutions Allowed Route To [facility] #[id number] Signed by Mariah Machado APRN, CNP Approved with modifications: lisinopril (LISINOPRIL 20MG TABLETS) TAKE 1 TABLET BY MOUTH DAILY Qty: 90 tab(s) Days Supply: 90 Refills: 0 Substitutions Allowed Route To [facility] #[id number] Signed by Mariah Machado APRN, CNP [facility] 02-08-2024 Note - From: Whitney Jordan RN ([facility] ([facility])) To: Kimi Weiss DO; Sent: 02/08/2024 08:11:19 EDT Subject: FW: Medication Management Due Date/Time: 02/08/2024 17:02:00 EDT Caller Name: LYLY QUINN; Caller Number: Alexander , Oral From: [facility] #[id number] To: Kimi Weiss DO Sent: February 07, 2024 4:02:35 PM CDT Subject: Medication Management Due: February 08, 2024 12:04:07 AM CDT On Hold Pending Signature Dispensed Drug: metFORMIN (metFORMIN 500 mg oral tablet), TAKE 1 TABLET BY MOUTH TWICE DAILY Quantity: 180 tab(s) Days Supply: 90 Refills: 0 Substitutions Allowed Notes from Pharmacy: Patient requests 90 days supply From: Kimi Weiss DO To: [facility] #[id number] Sent: 02/08/2024 09:31:55 EDT Subject: FW: Medication Management Submitted: Complete:metFORMIN (metFORMIN 500 mg oral tablet) Signed by Kimi Weiss DO 02/08/2024 09:31:00 EDT Approved metFORMIN (METFORMIN 500MG TABLETS) TAKE 1 TABLET BY MOUTH TWICE DAILY Qty: 180 tab(s) Days Supply: 90 Refills: 0 Substitutions Allowed Route To Pharmacy - [facility] #[id number] Note from Pharmacy: Patient requests 90 days supply [facility] 09-07-2023 Procedure note [facility] 08-04-2023 Note - From: Erica Espinoza ([facility] ([facility] To: Kimi Weiss DO; Sent: 07/30/2023 09:07:59 EDT Subject: FW: Medication Management Due Date/Time: 07/30/2023 17:37:00 EDT Caller Name: LYLY QUINN; Caller Number: Alexander , Oral Lisinopril 30 mg was refilled last month on 06/24/23 for a 90 day supply with 3 refills. From: [facility] #[id number] To: Kimi Weiss DO Sent: July 29, 2023 4:37:37 PM CDT Subject: Medication Management Due: July 30, 2023 1:56:01 AM CDT On Hold Pending Signature Dispensed Drug: lisinopril (lisinopril 10 mg oral tablet), TAKE 1 TABLET BY MOUTH DAILY Quantity: 90 tab(s) Days Supply: 90 Refills: 0 Substitutions Allowed Notes from Pharmacy: From: Kimi Weiss DO To: [facility] #[id number] Sent: 08/04/2023 06:24:31 EDT Subject: FW: Medication Management Submitted: Complete:lisinopril (lisinopril 30 mg oral tablet) Signed by Kimi Weiss DO 08/04/2023 06:24:00 EDT Approved with modifications: lisinopril (LISINOPRIL 10MG TABLETS) TAKE 1 TABLET BY MOUTH DAILY Qty: 90 tab(s) Days Supply: 90 Refills: 3 Substitutions Allowed Route To Pharmacy - [facility] #[id number] [facility] 04-22-2023 Evaluation note Encounter Date Diagnosis Assessment Notes Apr, Lumbar back sprain (ICD-10 - S33.5XXA) [facility] Other 12-26-2023 Note From: Erica Espinoza ([facility] ([facility])) To: Kimi Weiss DO; Sent: 04/13/2023 07:27:37 EST Subject: FW: Medication Management Due Date/Time: 04/13/2023 09:59:00 EST Caller Name: LYLY QUINN; Caller Number: H , Oral From: [facility] #[id number] To: Kimi Weiss DO Sent: April 12, 2023 8:59:30 AM 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 Subject: Medication Management Due: April 13, 2023 12:11:03 AM FLY WORKER On Hold Pending Signature Dispensed Drug: fenofibrate [...] from Pharmacy: From: Kimi Weiss DO To: [facility] #[id number] Sent: 04/13/2023 07:31:17 EST Subject: FW: Medication Management Submitted: Complete:rivaroxaban (Xarelto 20 mg oral tablet) Signed by Kimi Weiss DO 04/13/2023 07:31:00 EST Submitted: Complete:fenofibrate (fenofibrate 48 mg oral tablet) Signed by Kimi Weiss DO 04/13/2023 07:31:00 EST Approved with modifications: fenofibrate (FENOFIBRATE 48MG TABLETS) TAKE 1 TABLET BY MOUTH DAILY Qty: 90 tab(s) Days Supply: 90 Refills: 3 Substitutions Allowed Route To [facility] #[id number] Approved with modifications: rivaroxaban (XARELTO 20MG TABLETS) TAKE 1 TABLET BY MOUTH DAILY Qty: 90 tab(s) Days Supply: 90 Refills: 3 Substitutions Allowed Route To [facility][id number] Evaluation note* Encounter Date Diagnosis Assessment Notes Treatment Notes Treatment Clinical Notes Mar, Chronic, continuous use of opioids (ICD-10 - F11.90) [facility] Other 12-14-2023 Evaluation note* Encounter Date Diagnosis [...] note writ ten by Lawanda Yuen RN, [employer]. Edited and approved by Dr. Charles Claros MD. [facility] Other 10-05-2023 Evaluation note* Encounter Date Diagnosis [...] note writ ten by Doris Weiss LPN, [employer]. Edited and approved by Dr. Charles Claros MD. [facility] Other 10-05-2023 Evaluation note* Encounter Date Diagnosis Assessment Notes Treatment Notes Treatment Clinical Notes Jan, Lumbar back sprain (ICD-10 - S33.5XXA) [facility] Other 06-20-2023 Evaluation note* Encounter Date Diagnosis [...] to patients condition. Saliva sample performed through [facility] today, will await confirmatory results. Sep, Other chronic pain (ICD-10 - G89.29) Sep, Other Above note writ ten by Doris Weiss LPN, [employer]. Edited and approved by Dr. Charles Claros MD. [employer] Other 06-20-2023 Evaluation note* Encounter Date Diagnosis Assessment Notes Treatment Notes Treatment Clinical Notes Sep, Lumbar back sprain (ICD-10 - S33.5XXA) [facility] Other 02-13-2023 Evaluation note* Encounter Date Diagnosis [...] note writ ten by Dutch Taylor MA, [employer]. Edited and approved by Dr. Charles Claros MD. [facility] Other 02-13-2023 Evaluation note* Encounter Date Diagnosis Assessment Notes Treatment Notes Treatment Clinical Notes May, Lumbar back sprain (ICD-10 - S33.5XXA) [facility] Other 11-02-2022 Evaluation note* Encounter Date Diagnosis [...] note writ ten by Doris Weiss LPN, [employer]. Edited and approved by Dr. Charles Claros MD. [employer] Other 11-02-2022 Evaluation note* Encounter Date Diagnosis Assessment Notes Treatment Notes Treatment Clinical Notes Feb, Lumbar back sprain (ICD-10 - S33.5XXA) [facility] Other 08-29-2022 Evaluation note* Encounter Date Diagnosis [...] note writ ten by Doris Weiss LPN, [employer]. Edited and approved by Dr. Charles Claros MD. [employer] Other 05-31-2022 Chief complaint Narrative - Reported* An interactive audio and video telecommunication system which permits real time communications between the patient (at the originating site) and provider (at the distant site) was utilized to providethis telehealth service. * Verbal consent was requested and obtained from LYLY QUINN on this date, 09/16/2021 02:15 PM , for atelehealth visit. [facility]-Rbdpcwo-Hyjsb [employer] [address] Work Phone: 1(873) 244-813704-06-2022 Evaluation note* Encounter Date Diagnosis Assessment Notes [...] note writ ten by Dutch Taylor CMA, [employer]. Edited and approved by Dr. Charles Claros MD. [place] [employer] Other 03-02-2022 Chief complaint Narrative - Reported* An interactive audio and video telecommunication system which permits real time communications between the patient (at the originating site) and provider (at the distant site) was utilized to providethis telehealth service. * Verbal consent was requested and obtained from LYLY QUINN on this date, 06/18/2021 02:15 PM , for atelehealth visit. LO-Rlomgqd-Wxcgd [facility] [address] Work Phone: 1(429) 590-534801-05-2022 Chief complaint Narrative - Reported* An interactive audio and video telecommunication system which permits real time communications between the patient (at the originating site) and provider (at the distant site) was utilized to providethis telehealth service. * Verbal consent was requested and obtained from LYLY QUINN on this date, 04/23/2021 10:00 AM , for atelehealth visit. MO-Wfqquzm-Ymtnp [facility] [address] Work Phone: 1(215) 282-959401-05-2022 Chief complaint Narrative - Reported* An interactive audio and video telecommunication system which permits real time communications between the patient (at the originating site) and provider (at the distant site) was utilized to providethis telehealth service. * Verbal consent was requested and obtained from LYLY QUINN on this date, 04/23/2021 10:00 AM , for atelehealth visit. KA-Sdxhpckgzxrwtfyy-Lybpr Shefali [facility] Work Phone: 1(217) 616-989512-15-2021 Evaluation note* Encounter Date Diagnosis Assessment Notes [...] note writ ten by Lawanda Yuen CMA, [employer]. Edited and approved by Dr. Charles Claros MD. [employer] Other 10-20-2021 Evaluation note* Encounter Date Diagnosis [...] note writ ten by Dutch Taylor MA, [employer]. Edited and approved by Dr. Charles Claros MD. [employer] Other 08-10-2021 NoteSend Summary: Discharge Summary Providers: Provider RoleProvider Name Kimi Alarcon Zachary Note Recipients: Bee Blackmon MD Jackson, Steven P, DO - [phone] [] Discharge: Summary: Admission Date: .26-Nov-2020 10:44:00 [...] visit. Immunizations: Immunizations: 19-Nov-2020 SARS-CoV-2 (COVID-19): Immunizations, [employer] COVID-19 Vacc 30 mcg/0.3ml IM suspension, 01-Jul-2020 [...] Follow-Up Appointment Scheduled Date/Time: 09-Dec-2020 11:15 Location: [address] [place] [address] OFF[address], Phone Number: Office: Sec. [place]) - [phone] Discharge Medications: Home Medication lisinopril 20 mg [...] Dx: acute post-operative pain (more content not included)...[facility]08-10-2021 NotePost Operative Note: PreOp Diagnosis: lumbar stenosis with radiculopathy Post-Procedure Diagnosis: same as preop Procedure: 1. L3-4 XLIF 2. 3. 4. 5. Surgeon: Neymar Resident/Fellow/Other Straddle Buggy Operator: Daniela Anesthesia: GETA Estimated Blood Loss (mL): [...] Completion Last Updated: 10-Dec-2020 17:38 by Bee Blackmon)[facility]08-10-2021 NotePreop Checklist: Preop Checklist: Procedure TypeL3-4 lateral lumbar fusion with instrumentation Temperature C36.4 degrees C Temperature F97.5 degrees F Heart Rate92 beats per minute Respiratory Rate16 breath per minute Blood Pressure Oryqqofk472 mm/Hg Blood Pressure Fbirghgvf47 mm/Hg NPO Qkuvlr10-Rkc-6343 22:00 ID Band Onyes Allergy Bandno known [...] Language / CommunicationEnglish Electronic Signatures: Pat Padilla (BENI) (Signed 26-Nov-2020 12:09) Authored: Preop Checklist Last Updated: 26-Nov-2020 12:09 by Pat Padilla (BENI)[facility]08-10-2021 NoteHistory & Physical Reviewed: I [...] the note. I personally evaluated the patient [id number] Electronic Signatures: Bee Blackmon) (Signed 09-Dec-2020 19:41) Authored: Note Completion Co-Signer: History & Physical Reviewed, ERAS, Consent, Note Completion Kevin Marshall (Resident)) (Signed 26-Nov-2020 05:52) Authored: History & Physical Reviewed, ERAS, Consent, Note Completion Last Updated: 09-Dec-2020 19:41 by Bee Blackmon)[facility]05-05-2021 Evaluation note* Lymphatic: No significant lymphadenopathyNeurological: A&Oa8Erciafezcfkxamtg: Soft, ntndCardiovascular: RRR by peripheral pulsesPsychological: Appropriate mood and behaviorRespiratory/Thorax: Breathing normally on RAHead/Neck: Neck supple, trachea midlineEyes: EOMI, clear scleraSkin: Warm and dry, no rashesMusculoskeletal: L1: SILTL2: SILT Hip flexors 5/5 Right; 5/5 LeftL3: SILT Knee extension 5/5 Right; 5/5 LeftL4: SILT Tib Ant. (Dorsiflexion) 5/5 Right; 5/5 LeftL5: SILT EHL 5/5 Right; 5/8SdakE9: SILT Planter flexion 5/5 Right; 5/5 LeftConstitutional: Awake/alert/oriented x3, no distress, alert and cooperative [facility]02-01-2020 History of Present illness Narrative* [...] He was evaluated by another surgeon in [facility], they did recommend surgery however he has a history involving multiple DVTs and pulmonary embolism. After his last operation he was not bridged preoperatively on Lovenox, and he did not receive any anticoagulation until 2 weeks after surgery. Despite having an IVC filter in place he through another pulmonary embolism. He follows up with a flower picker in [place]. * He is otherwise in good health. [...] 26. I have reached out to his flower picker to confirm plans for perioperative anticoagulation. He is fully vaccinated for COVID-19. * This note was dictated using speech recognition software and was not corrected for spelling or grammatical errors. VV-Uqjkatzvqhgh-Uqbcwk Work Phone: 1(384) 485-626202-01-2020 History of Present illness Narrative* 55-year-old male [...] He was evaluated by another surgeon in [facility], they did recommend surgery however he has a history involving multiple DVTs and pulmonary embolism. After his last operation he was not bridged preoperatively on Lovenox, and he did not receive any anticoagulation until 2 weeks after surgery. Despite having an IVC filter in place he through another pulmonary embolism. He follows up with a flower picker in [place]. * He is otherwise in good health. [...] 26. I have reached out to his flower picker to confirm plans for perioperative anticoagulation. He is fully vaccinated for COVID-19. * This note was dictated using speech recognition software and was not corrected for spelling or grammatical errors. II-Wbxjahhboxvd-Wavdrf Work Phone: 1(756) 739-906801-06-2019 History of Present illness Narrative* Patient is [...] not corrected for spelling or grammatical errors. [facility] Work Phone: 1(848) 638-165212-18-2018 History of Present illness Narrative* Patient is [...] not corrected for spelling or grammatical errors. [facility] Work Phone: [phone]) 810-344711-22-2018 History of Present illness Narrative* Patient is [...] not corrected for spelling or grammatical errors. OQ-Qjqnzktlzhmo-Ymwbriby Work Phone: Evaluation note* Diagnosis Onset Date Resolution Status Chronic pain acute Chronic, continuous use of opioids acute Other spondylosis with radiculopathy, lumbar region acute [facility] Work Phone: Evaluation note* Diagnosis Onset Date Resolution Status Chronic pain acute Chronic, continuous use of opioids acute Other spondylosis with radiculopathy, lumbar region acute Chronic pain acute Chronic, continuous use of opioids acute Other spondylosis with radiculopathy, lumbar region acute [facility] Work Phone: Evaluation note* Diagnosis Chronic [...] dr) Hospitalization History pulmonary embolism 2 alfa [employer] Other History of Present illness Narrative* Patient [...] not corrected for spelling or grammatical errors TO-Fqkqvevcnwrz-Germphih Work Phone: History of Present illness Narrative* [...] * Lives with: Spouse * 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[employer] * Sleep patterns: 8hrs YANNI on CPAP * Alcohol: 1-2 on the weekends * Tobacco: None * Recreational Drugs: None * Exercise: Therapy for back 2 x weekly MY[facility]Rsslsay-Cvdeo [facility] Work Phone: History of Present [...] and V8 * L - yogurt, granola (togolese yogurt, 1/4 cup granola), cream of corn 1 cup * Snack - pop corner 100 calorie bag * D - veggie burger with american cheese & onion (2 burgers) low calorie [...] * Lives with: Spouse * 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 * Continued topiramate as adjunct to diet/exercise last visit. 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 GV-Cdulckgqakoj-Xzmsybow Work Phone: History of Present illness Narrative* [...] is going to do this in the [facility], we will have them push the results to PACS. He shouldcall the office for the results of the MRI. * In the meantime I am going to put him on some prednisone. * I will speak with him after the MRI is complete. * This note was dictated using speech recognition software and was not corrected for spelling or grammatical errors. NL-Qzlolftaifoe-Bivlybxn Work Phone: Hospital Discharge instructions* Activity:activity with [...] Follow-Up AppointmentScheduled Date/Time: 09-Dec-2020 11:15Location: [address], [phone] Number: Office: [place] Sec.) - [phone]: Please Call Tara Gonzalez RN at [phone] For Any Post-Op Questions [facility] Reason for Referral: L3-4 fusion [facility] Chief Complaint * A telephone [...] section and content) DATE CREATED AUTHOR 09/29/[address] [facility] DATE CREATED AUTHOR AUTHOR'S ORGANIZ ATION 05/01/2022 [facility] Specialist DATE CREATED AUTHOR AUTHOR'S ORGANIZ ATION 05/05/2022 [facility] DATE CREATED AUTHOR AUTHOR'S ORGANIZ ATION 05/16/2022 [facility] DATE CREATED AUTHOR AUTHOR'S ORGANIZ ATION 06/24/2022 [facility] DATE CREATED AUTHOR AUTHOR'S ORGANIZ ATION 07/28/2022 [facility] DATE CREATED AUTHOR AUTHOR'S ORGANIZ ATION 09/16/2023 [facility] DATE CREATED AUTHOR AUTHOR'S ORGANIZ ATION 01/17/2024 [facility] DATE CREATED AUTHOR AUTHOR'S ORGANIZ ATION 03/30/2024 [facility] Specialists EPIC DATE CREATED AUTHOR AUTHOR'S ORGANIZ ATION 04/05/2024 [facility] REASON FOR VISIT (unrecogniz ed section [...] Provider Active Sta rt: September 15, [address] Relationship Specialty Start Date End Date Kimi Weiss MD [address] [place] [id number] PCP - General Family Medicine 08/09/[address] Relationship Specialty Start Date End Date Kimi Weiss MD [address] [place] [address] PCP - General Family Medicine 08/09/23 Goals [...] BE BASED ON THE PRIMARY CLINICAL RECORDS. [facility]. provides no warranty or guarantee of the accuracy or completeness of information in this document.
--- NOTE | 2024-04-06 11:29 | ECG_ITS ---
[facility] Test Date: 2024-04-06 Pat Name: LYLY KIDD Department: Room: - Gender: Male It Lead: : 1965 Requested By: [id number] Order Number: [id number] Reading MD: JAVED KAISER Measurements Intervals [place] Rate: 98 P: 46 WY: 144 QRS: 71 QRSD: 106 T: 34 QT: 366 QTc: 421 Interpretive Statements 1100 Sinus rhythm 9110 normal ECG Compared to ECG 04/02/2024 08:36:02 No significant changes Electronically Signed On 04-06-2024 19:44:31 EST by JAVED KAISER
--- NOTE | 2024-04-06 11:32 | XR_ITS ---
The [address] [address] Patient Name: LLYY KIDD MRN: [id number] date: 1965 Sex: M Assigned Patient Location: ER Current Patient Location: ER Accession/Order Number: [id number] Exam Date: 04/06/2024 11:39 Report Date: 04/06/2024 11:58 At the request of: MACEY LOPEZ Procedure: XR chest 2V EXAM: CHEST 2 VIEWS HISTORY: pneumonia hx TECHNIQUE: PA and lateral views chest. COMPARISON: Chest CT 04/02/2024 FINDINGS: Mild right perihilar atelectasis, with slightly elevated right hemidiaphragm. There is no focal lung consolidation, pleural effusion or pneumothorax. Pulmonary vasculature is within normal limits. The cardiomediastinal silhouette is normal. There are surgical clips in the upper abdomen. XR/XR chest 2V IMPRESSION: 1. Mild right perihilar atelectasis, also seen on recent CT 04/02/2024. Otherwise, lungs are clear without acute cardiopulmonary disease. Electronically authenticated by: OSMIN PEDERSEN Date: 04/06/2024 11:58
[2024-04-06] MEDS: IPRATROPIUM/ALBUTEROL SULFATE 3 ML AMPUL.NEB IH ×2 (13:18→22:41)
[2024-04-06 13:21] LABS: Basophils Absolute Auto 0.1 10^3/uL (0.0-0.1); Basophils Percent Auto 0.6 % (0.2-2.0); Eosinophils Absolute Auto 0.1 10^3/uL (0.0-0.7); Eosinophils Percent Auto 0.5 % (0.9-7.0); Hematocrit 46.9 % (42.0-54.0); Hemoglobin 16.6 g/dL (14.0-18.0); Immature Granulocytes Pct Auto 1.8 % (0.0-0.5); Lymphocytes Absolute Auto 4.2 10^3/uL (1.2-3.8); Lymphocytes Percent Auto 37.8 % (20.5-60.0); Mean Corpuscular HGB Conc 35.4 g/dL (29.9-35.2); Mean Corpuscular Hemoglobin 31.4 pg (25.9-34.0); Mean Corpuscular Volume 88.8 fL (80.0-94.0); Monocytes Absolute Auto 1.1 10^3/uL (0.3-0.8); Monocytes Percent Auto 9.4 % (1.7-12.0); Neutrophils Absolute Auto 5.6 10^3/uL (1.4-6.5); Neutrophils Percent Auto 49.9 % (43.0-75.0); Platelet Count 320 10^3/uL (150-450); Red Blood Count 5.28 10^6/uL (4.70-6.10); White Blood Count 11.2 10^3/uL (4.0-11.0)
[2024-04-06] MEDS: METHYLPREDNISOLONE SOD SUCC PF 125 MG/2 ML VIAL IVP (13:30)
[2024-04-06] MEDS: KETOROLAC TROMETHAMINE 30 MG/ML VIAL 15 MG IVP (13:30)
[2024-04-06 13:41] LABS: D Dimer 0.48 mg/L FEU (<=0.59)
[2024-04-06 13:45] LABS: Alanine Aminotransferase 42 U/L (16-63); Albumin Globulin Ratio 0.9; Albumin Level 3.9 g/dL (3.4-5.0); Alkaline Phosphatase 100 U/L (46-116); Anion Gap 14.8; Aspartate Amino Transferase 19 U/L (15-37); BUN Creatinine Ratio 14.4; Bilirubin Total 0.5 mg/dL (0.2-1.0); Calcium 10.4 mg/dL (8.5-10.1); Carbon Dioxide 24.8 mmol/L (21.0-32.0); Chloride 101 mmol/L (98-107); Estimated GFR (African America >60 (>=60 mL/min/1.73m^2); Estimated GFR (Non-African Ame >60 (>=60 mL/min/1.73m^2); Globulin 4.5 g/dL; Glucose 152 mg/dL (74-106); Potassium 4.6 mmol/L (3.5-5.1); Sodium 136 mmol/L (136-145); Total Protein 8.4 g/dL (6.4-8.2); Troponin I High Sensitivity <4.0 pg/mL (4.0-76.1)
[2024-04-06 15:20] LABS: Troponin I High Sensitivity <4.0 pg/mL (4.0-76.1)
--- NOTE | 2024-04-06 15:52 | ED_ITS ---
HPI HPI - General Adult General Chief complaint: Upper Respiratory Infection Stated complaint: URTI COMPLAINTS Time Seen by Provider: 04/06/24 11:31 Source: patient Mode of arrival: Wheelchair History of Present Illness HPI narrative: The patient is a 59-year-old male with history of hypertension diabetes as well as history of PE actively right now on Xarelto, is coming to the ER with a recent diagnosis of pneumonia almost a week ago the patient apparently started getting chest pain today and shortness of breath on exertion and that why the patient came here with his The patient main concern is mostly retrosternal pain as well in the right side of the chest. The patient mentioned that the pain associated with dizziness sometimes and it comes on exertion and sometimes related to a certain position like sitting up The main concern of the patient is a shortness of breath hide it is similar to what he had 7 days ago Related Data Home Medications ?Medication ?Instructions ?Recorded ?Confirmed cyclobenzaprine 10 mg tablet 10 mg PO Q12H PRN back pain 04/02/24 04/06/24 doxycycline hyclate 100 mg capsule 100 mg PO Q12H 04/02/24 04/06/24 duloxetine 60 mg capsule,delayed 60 mg PO DAILY 04/02/24 04/06/24 release fenofibrate nanocrystallized 48 mg 48 mg PO DAILY 04/02/24 04/06/24 tablet galcanezumab-gnlm 120 mg/mL 120 mg subcut .monthly 04/02/24 04/06/24 subcutaneous pen injector (Emgality Pen) galcanezumab-gnlm 300 mg/3 mL (100 300 mg subcut .monthly 04/02/24 04/06/24 mg/mL x 3) subcutaneous syringe (Emgality) lisinopril 20 mg tablet 20 mg PO DAILY 04/02/24 04/06/24 metformin 500 mg tablet 500 mg PO DAILY 04/02/24 04/06/24 rivaroxaban 20 mg tablet (Xarelto) 20 mg PO Q24H 04/02/24 04/06/24 semaglutide 0.25 mg or 0.5 mg (2 0.25 mg subcut .weekly 04/02/24 04/06/24 mg/3 mL) subcutaneous pen injector (OzUnkasoft Advergamingic) Previous Rx's ?Medication ?Instructions ?Recorded albuterol sulfate 90 mcg/actuation 1 inh inhalation Q6H PRN shortness 04/02/24 aerosol inhaler of breath or wheezing #6.7 grams amoxicillin 875 mg-potassium 1 tab PO Q12H #14 tabs 04/02/24 clavulanate 125 mg tablet methylprednisolone 4 mg tablets in 4 mg PO DAILY #21 ea 04/02/24 a dose pack (Medrol (Samm)) Allergies Allergy/AdvReac Type Severity Reaction Status Date / Time No Known Drug Allergies Allergy Verified 09/10/23 13:24 Opioid HPI Opioid Management Most Recent Opioid Data: Last Pain Scale 6 04/06/24 13:30 04/06/24 Last MAR Pain Assessment 04/06/24 13:30 Review of Systems ROS Status of ROS 10 or more systems reviewed and unremark able except as noted in history and below [facility] Social History Little interest or pleasure in doing things: not at all Feeling down, depressed, or hopeless: not at all Exam Narrative Exam Narrative: Nurses notes and vital signs reviewed and patient is not hypoxic. General: Well-appearing and in no apparent distress. Skin: Warm, dry, no pallor noted. No rash. Head: Normocephalic, atraumatic. Neck: Supple, non-tender. Eye: Pupils are equal, round and EOMI. No scleral icterus. Ears, Nose, Mouth, and Throat: TM are clear, no nasal mucosal hypertrophy. Oral mucosa is moist, no posterior oropharynx erythema, uvula is mid-line Cardiovascular: Regular Rate and Rhythm without murmur, gallop or rub. Respiratory: No accessory muscle use or respiratory distress. Lungs distant breathing sounds bilaterally Back: No midline thoracic or lumbar vertebral tenderness. No CVA tenderness Musculoskeletal: normal ROM, no calf or popliteal tenderness, no lower extremity edema/swelling GI: Abdomen is soft, non-distended. Normal bowel sounds. No masses appreciated. No tenderness to palpation. No rebound, guarding, or rigidity noted. Neurological: A&O x4. No cranial nerve dysfunction observed. No truncal ataxia. Moves all extremities. Sensation intact. Psychiatric: Cooperative and interactive. Normal mood and affect. Constitutional Vital Signs, click to edit/add: Last Vital Signs Temp 98.8 F 04/06/24 15:10 Pulse 98 H 04/06/24 16:16 Resp 20 12/19/24 16:16 BP 131/87 04/06/24 15:47 Pulse Ox 98 04/06/24 16:16 O2 Del Method Room Air 04/06/24 15:10 Course Vital Signs Vital signs: Vital Signs Temperature 98.1 F 04/06/24 11:20 Pulse Rate 99 H 04/06/24 11:20 Respiratory Rate 22 H 04/06/24 11:20 Blood Pressure 136/93 H 04/06/24 11:20 Pulse Oximetry 100 04/06/24 11:20 Temperature 98.8 F 04/06/24 15:10 Pulse Rate 98 H 04/06/24 16:16 Respiratory Rate 20 04/06/24 16:16 Blood Pressure 131/87 04/06/24 15:47 Pulse Oximetry 98 04/06/24 16:16 Oxygen Delivery Method Room Air 04/06/24 15:10 Medical Decision Making MDM Narrative Medical decision making narrative: The patient EKG showing sinus rhythm with a heart rate of [address] elevation or depression but there is a T wave seen in lead V5 and V6 that was not seen on his recent EKG as well The patient troponin repeated twice was negative CBC showing a white blood cell of 11.2 the chest x-ray showed possible atelectasis It was noted that the patient main concern was the chest pain and his presentation it showed that he gets tachycardic when standing up and walking with a chest pressure. The patient white blood cell of 11.2 does not correlate with possible infection specially that recently when he had a CAT scan it did show some opacity but he also did not have any white blood cells and he was discharged recently on a steroid pack and that could be the reason for the mild elevation of his white blood cell The patient lactic acid was obtained after the patient received a breathing treatment and right now there is no definite source of infection . He was covered with 500 cc of fluid in addition to levofloxacin as well after obtaining a blood culture, but I will be cautious with fluid at this lactic acid elevation is mostly not secondary to sepsis But there is no concern for sepsis in this patient , we definitely need to rule out cardiac pathology especially with the patient risk factor of hypertension and diabetes I discussed the case with , and he agreed that the patient needs a cardiac stress test to make sure that his presentation is not cardiac The patient at least had 2 presentation of shortness of breath with no clear reason at the moment specially with a chest x-ray showing atelectasis and the CT PE was negative on his last visit The patient was started on aspirin as per the recommendation of cardiology Patient case was discussed with Dr Farooq and the patient will be admitted for further evaluation Lab Data Labs: Lab Results 04/06/24 04/06/24 Range/Units 13:16 14:54 WBC 11.2 H (4.0-11.0) 10^3/uL RBC 5.28 (4.70-6.10) 10^6/uL Hgb 16.6 (14.0-18.0) g/dL Hct 46.9 (42.0-54.0) % MCV 88.8 (80.0-94.0) fL MCH 31.4 (25.9-34.0) pg MCHC 35.4 H (29.9-35.2) g/dL RDW 12.0 (11.0-15.0) % Plt Count 320 (150-450) 10^3/uL MPV 9.0 L (9.5-13.5) fL Neut % (Auto) 49.9 (43.0-75.0) % Lymph % (Auto) 37.8 (20.5-60.0) % Stokes % (Auto) 9.4 (1.7-12.0) % Eos % (Auto) 0.5 L (0.9-7.0) % Baso % (Auto) 0.6 (0.2-2.0) % Neut # (Auto) 5.6 (1.4-6.5) 10^3/uL Lymph # (Auto) 4.2 H (1.2-3.8) 10^3/uL Stokes # (Auto) 1.1 H (0.3-0.8) 10^3/uL Eos # (Auto) 0.1 (0.0-0.7) 10^3/uL Baso # (Auto) 0.1 (0.0-0.1) 10^3/uL Abs Immat Gran (auto) 0.20 H (0.00-0.03) 10^3/uL Imm/Tot Granulo (auto) 1.8 H (0.0-0.5) % D-Dimer 0.48 (<=0.59) mg/L FEU Sodium 136 (136-145) mmol/L Potassium 4.6 (3.5-5.1) mmol/L Chloride 101 (98-107) mmol/L Carbon Dioxide 24.8 (21.0-32.0) mmol/L Anion Gap 14.8 BUN 16.0 (7.0-18.0) mg/dL Creatinine 1.11 (0.70-1.30) mg/dL Est GFR ( Amer) >60 (>=60 mL/min/1.73m^2) Est GFR (Non-Af Amer) >60 (>=60 mL/min/1.73m^2) BUN/Creatinine Ratio 14.4 Glucose 152 H (74-106) mg/dL Lactate 4.8 H* (0.4-2.0) mmol/L Calcium 10.4 H (8.5-10.1) mg/dL Total Bilirubin 0.5 (0.2-1.0) mg/dL AST 19 (15-37) U/L ALT 42 (16-63) U/L Alkaline Phosphatase 100 (46-116) U/L Troponin I High Sens <4.0 L <4.0 L (4.0-76.1) pg/mL Total Protein 8.4 H (6.4-8.2) g/dL Albumin 3.9 (3.4-5.0) g/dL Globulin 4.5 g/dL Albumin/Globulin Ratio 0.9 Discharge Plan Discharge Chief Complaint: Upper Respiratory Infection Clinical Impression: Chest pain, Breath shortness Patient Disposition: Admitted As Inpatient Time of Disposition Decision: 16:29
[2024-04-06] MEDS: 0.9 % SODIUM CHLORIDE 1,000 ML 500 ML IV (16:15)
[2024-04-06] MEDS: ASPIRIN 81 MG TAB.CHEW 324 MG PO (16:16)
[2024-04-06 16:22] LABS: Lactate/Lactic Acid 4.8 mmol/L (0.4-2.0)
[2024-04-06] MEDS: LEVOFLOXACIN IN DEXTROSE 5 % 750 MG/150 ML PREMIX 100 MG IV (16:32)
--- NOTE | 2024-04-06 16:36 | PM.HP ---
HPI H&P: HPI History of Present Illness Chief complaint: URTI COMPLAINTS CHEST PAIN Narrative: Patient is a 59 y.o white male with past medical history of PE's, taking Xarelto, depression, HLD, Migraine headaches, hypertension, NIDDM, who presented to the ER on 04/02/24 with chest pain and shortness of breath, had CTA that showed no acute PE but RLL pneumonia. Patient was sent home on MEdrol dosepak, Augmentin, doxycycline and albuterol inhaler. He returned to the ER today who substernal chest pain that radiated to his right arm, chest pressure with exertion, and cough. Patient's chest X-ray showed atelectasis but overall RLL infiltrate is improving, WBC's 11.2, Hb 16.6, Troponin x 2 negative, Normal D-dimer. Elevated Lactate of 4.8. Patient was given fluid bolus, Levaquin IV, Neb treatment and solumedrol. ER physician discussed case with [employer] Helper who recommended admission for further work up of his chest pain, to include stress test. Opioid HPI Opioid Management Most Recent Pain and Opioid Data: Last Pain Scale 6 04/06/24 13:30 04/06/24 Last MAR Pain Assessment 04/06/24 13:30 Review of Systems ROS Narrative ROS: a complete review of systems were reviewed with patient and are positive as below or listed in History of Chief Complaint. General: no fever, chills, night sweats Head: no headache, trauma, visual changes, nausea or vomiting Skin: no reported rashes, itching or sores Eyes: no blurriness of vision Ears: no reported hearing loss, vertigo, earache, or tinnitus Throat: no sore throat, hoarseness, swelling of neck, or tongue pain Heart: no chest pain Lungs: shortness of breath and cough GI: no diarrhea or vomiting/nausea Urinary: no urinary urgency, frequency or pain Neuro: no numbness or tingling HEM: no bleeding issues or bruising ENDO: no thyroid problems Psych: no anxiety or depression PFSH PFSH Medical History Depression ?F32.A - Depression, unspecified (ICD-10) Migraine headache ?G43.909 - Migraine, unspecified, not intractable, without status migrainosus (ICD-10) Non-insulin dependent type 2 diabetes mellitus ?E11.9 - Type 2 diabetes mellitus without complications (ICD-10) Hyperlipidemia associated with type 2 diabetes mellitus ?E11.69 - Type 2 diabetes mellitus with other specified complication (ICD-10) ?E78.5 - Hyperlipidemia, unspecified (ICD-10) Primary hypertension ?I10 - Essential (primary) hypertension (ICD-10) History of pulmonary embolism ?Z86.711 - Personal history of pulmonary embolism (ICD-10) Social History Little interest or pleasure in doing things: not at all Feeling down, depressed, or hopeless: not at all Meds Home Medications and Allergies Home Medications ?Medication ?Instructions ?Recorded ?Confirmed ?Type albuterol sulfate 90 mcg/actuation 1 inh inhalation Q6H PRN shortness 04/02/24 04/06/24 Rx aerosol inhaler of breath or wheezing #6.7 grams amoxicillin 875 mg-potassium 1 tab PO Q12H #14 tabs 04/02/24 04/06/24 Rx clavulanate 125 mg tablet cyclobenzaprine 10 mg tablet 10 mg PO Q12H PRN back pain 04/02/24 04/06/24 History doxycycline hyclate 100 mg capsule 100 mg PO Q12H 04/02/24 04/06/24 History duloxetine 60 mg capsule,delayed 60 mg PO DAILY 04/02/24 04/06/24 History release fenofibrate nanocrystallized 48 mg 48 mg PO DAILY 04/02/24 04/06/24 History tablet galcanezumab-gnlm 120 mg/mL 120 mg subcut .monthly 04/02/24 04/06/24 History subcutaneous pen injector (Emgality Pen) galcanezumab-gnlm 300 mg/3 mL (100 300 mg subcut .monthly 04/02/24 04/06/24 History mg/mL x 3) subcutaneous syringe (Emgality) lisinopril 20 mg tablet 20 mg PO DAILY 04/02/24 04/06/24 History metformin 500 mg tablet 500 mg PO DAILY 04/02/24 04/06/24 History methylprednisolone 4 mg tablets in 4 mg PO DAILY #21 ea 04/02/24 04/06/24 Rx a dose pack (Medrol (Samm)) rivaroxaban 20 mg tablet (Xarelto) 20 mg PO Q24H 04/02/24 04/06/24 History semaglutide 0.25 mg or 0.5 mg (2 0.25 mg subcut .weekly 04/02/24 04/06/24 History mg/3 mL) subcutaneous pen injector (Ozempic) Allergies Allergy/AdvReac Type Severity Reaction Status Date / Time No Known Drug Allergies Allergy Verified 09/10/23 13:24 Exam Narrative Exam Narrative: General: Patient is alert, and oriented to person, place and time with normal affect, proper hygiene, but short of breath with conversing along with chest pain Skin: no visible rashes, or ulcers Head: atraumatic, acephalic Eyes: PERRLA, no nystagmus present, conjunctiva clear, no scleral icterus Ears: normal gross auditory acuity Neck: no masses palpated Heart: Normal rate and rhythm, no murmurs/rubs/gallops Lungs: no audible wheezes, crackles and diminished breath sounds all lung macdonald Abdomen: Normal audible bowel sounds, no distension, No palpable masses, no organomegaly, no rebound/guarding/ or rigidity Musculoskeletal: no swelling bilateral lower extremities Neuro: CN II-X grossly intact Constitutional Vital Signs, click to edit/add: Last Vital Signs Temp 98.8 F 04/06/24 15:10 Pulse 98 H 04/06/24 16:16 Resp 20 04/06/24 16:16 BP 131/87 04/06/24 15:47 Pulse Ox 98 04/06/24 16:16 O2 Del Method Room Air 04/06/24 15:10 Results Labs Labs: Short CBC 04/06/24 Range/Units 13:16 WBC 11.2 H (4.0-11.0) 10^3/uL Hgb 16.6 (14.0-18.0) g/dL Hct 46.9 (42.0-54.0) % Plt Count 320 (150-450) 10^3/uL BMP 04/06/24 13:16 Sodium 136 Potassium 4.6 Chloride 101 Carbon Dioxide 24.8 BUN 16.0 Creatinine 1.11 Glucose 152 H Calcium 10.4 H Liver Function 04/06/24 Range/Units 13:16 Total Bilirubin 0.5 (0.2-1.0) mg/dL AST 19 (15-37) U/L ALT 42 (16-63) U/L Alkaline Phosphatase 100 (46-116) U/L Albumin 3.9 (3.4-5.0) g/dL Assessment and Plan Assessment and Plan (1) Chest pain: Assessment and Plan: troponin x 2 negative, continue to trend, SABRINA score 3, no EKG changes, normal D-dimer. Most likely this is pleuritic chest pain but to due to patient's risk factors, will order Lexiscan stress test for the morning. Cardiology consult, Will optimize his blood pressure by adding hctz to lisinopril. Check Pro-BNP, Echocardiogram Qualifiers: Chest pain type: unspecified Qualified Code(s): R07.9 - Chest pain, unspecified (2) Community acquired pneumonia: Assessment and Plan: Patient was treated for this on 04/02/24, oxygen saturations are good on room air. PRN neb treatments, holding on steroids as completed medrol pack, continue levaquin. Qualifiers: Laterality: right Lung location: lower lobe of lung Qualified Code(s): J18.9 - Pneumonia, unspecified organism (3) History of pulmonary embolism: Assessment and Plan: continue Xarelto, normal Ddimer and recent normal CTA chest (4) Primary hypertension: Assessment and Plan: continue lisinopril (5) Hyperlipidemia associated with type 2 diabetes mellitus: Assessment and Plan: continue fenofibrate (6) Non-insulin dependent type 2 diabetes mellitus: Assessment and Plan: hold metformin, SSI as needed (7) Migraine headache: Assessment and Plan: takes emgality. Qualifiers: Intractability: not intractable Migraine type: unspecified Status migrainosus presence: without status migrainosus Qualified Code(s): G43.909 - Migraine, unspecified, not intractable, without status migrainosus (8) Depression: Assessment and Plan: continue duloxetine Qualifiers: Depression Type: unspecified Qualified Code(s): F32.A - Depression, unspecified Plan Patient is a full code continue xarelto Patient is in observation status, check ECHO and lexiscan stress test, Cardiology consult tomorrow. Optimize BP.
--- OUTSIDE RECORDS SUMMARY | 2024-04-06 17:13 | XMS_ITS | CCD ---
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 every four hours as needed for headache Wrbrsntxiq-DVXE-Vrgrqlob 50-300-40 MG Oral Capsule TAKE 1 CAPSULE [...] 12:03pm February 28, 2020 1:49pm HYDROcodone-acet aminophen ([place]) 5-325 MG tablet Take by mouth Active [...] 13, 2019 11:45pm Blood Glucose Monitoring Suppl ([employer] Verio Flex System) w/Device kit (2 sources) [...] MIGRAINE 8 tablet 2 03/20/2024 Active sennosides, longterm 8.6 mg oral tablet (1 source) Start: [...] cause serious breathing problems. 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 Outside Recordson 04-03-2024 Outside Records [id number]#[id number] [facility] Diabetes Noteon 03-21-2024 Diabetes Note Patient scheduled [...] Coding Summaryon 03-13-2024 Coding Summary HTMLBase 64 JctndpyqUJz7fAn+PGhlYWQ+P Z0YVJUoA45mzVPpvD8sG3FZPS lOSywgQVBQTElOSyIgbmFtZT1 kaXNjZXJu IC8+MB1nFQMsVxmbaJVfs0X0o AI4B95nnn3rVNkqmGS4ZBHuKe Sxnrmgu1zazQr0BIpcSqaoBcX t KXLcqD97SAJ4pA92Tn20zFUjm DMev2ganKd0AiFqWCXcVLO5zT jiAPrsk0CbIHJdA69qwOQiq4Z 6 HBTtsAjzoOPrCaMfbMZ8lA7aH Dhgojycc2kpoxotKhd6sb00uW Thm1L8sBA2E0WmboC2MJPixDX g PhmrwIKReA8lfjbgc7tbnqppH rFnFTDlBDj5UMx1XFZhqBlsZs TwOG82VOF7MRNvplUsT6HuCIQ s jKhgByZ4b1F2Bq7FB3MXBibvS 1VNTUFSWTwvdGQ+GV32dg21P4 KnFzlhOxr7LGOxAXH1yOS8bE4 n RNWuKRpak5C7uLV4U4CrtgBsx r7zy2nrQBPuRZxsA04kvWEzi8 J8EMYikEN7YAGphKmoYrGkiL8 3 Oyc+YMQuoQrrv1LpVjwuk1ifz 8hpwKq7AnbrAAYdwcYdpQenYM S5c2McMu4sFLJkbMV4fCT1rM3 i KxByPgF8OXzxO370UuGysRGvB xdwJ06dK9UmkDL+GUNfYlx5SU AkvHkiFW8fD2RcSCWyspcilWT m eJiyRQ3xIACqcodsOLVgyA5wP ZWeZ7x0NmVtVjG3DZtkR3HtAS HkaeapYp43gD4pJnUvTcK2WVn u R4DaapQ7NYUfiHFzNDdjSMB2Q 96pr3G9NICjLZTfQQQ1yCD4aB 1hbGlnbjogbGVmdDsgdmVydGl j ATgxKXktU028SRVhbJysOvWwJ GluZyBEYXRlOiAgMTEvMjUvMj AyNDwvdGQ+ZCBpTWX4eDhsBIW n xPTcOKytLr0weDxznBflNJ7uS UUyfogmBWDcrP0oHZAorOOmfG qhDW7dHHOzhftzx411SlXfKFS 0 LQCvnXSnB6OhzU5aWfXaLWCsB LXiU5QfpHOlUIteQ742OJkcAi J2WTLcyzQqQ4FkKJFyxZknCfO 0 g1R2Ig9Tr0IzujhqM4KsvNPrB dAfSmfsBMa7A0WuAeyoqIY+PC 33CCKrCQ66JHz3RND3bXuxVLr i LONwW5JihP9vCbLdFNAyVUTlQ yc+PHRhYmxlIHdpZHRoPScxMD VfYyBkeRkkDB3cVf1fFBGzJDG v vHmrtSHdGtJdk4apSRTtENywX S7qrXxoX8DrmDV8OPKhv3c4Zv 88T94eJ1FxkGD+EXZxqPZ4kLT 0 xI8gKeTyEnT3EVbsE468IzPrw LLhQjuxq0olo5fqcKh4VlA2LA TezrUaoIsjEUK6y5XeUk72M10 s IHdpZHRoPSIxNSUiIHZhbGlnb g0zfB6dRn5+QERbzIB9rHJ8pL 8tIuGzQpV0WKzaR715NhPmyTT v Peduw8ose2kmaTb4NuDeLGQzt hOsuGjrDYA4r6IoPh30R3OoyU mwd6BpGks2we91tJYvg0N4xFV 9 M6FcFMYdjlggwSBhbXpwUL0hG NYojxkoISWguK1lEHMtK1z9Ca DtIoM9EDtkD0AdnuQ0PNOcxUC g PTPagCWPvZ5rnluuc5dotullI xRsIVMtLKe2ROy8KPQfjMzhEg IkGWN3PeZ8JBA7bCXppB0voXd n rfauuG7eGmm+QKB7cQXhqNGLG M2nYhvlgRB+QXScBAU7nFtwOP gsKRZbgH8rXWIzG1a1KvYwDpW 1 PZbpB8WieaE9CBFhnKZiNHBna GSZhE2fvjiwa3lxvxsjIeFjIB OaMRh8ONg2XJMedBxlCiSuIVR 0 PwQ7VTB4oZJwxF1xtBvqhacaa G9wOyc+ZdgakWosHAC1MDd1R8 XwIri7NOPsoIwpFM6flEApVNc u To0zgLktaRauZT1yJIJdsjbrq 163QwOdv2ieWZCnwLQoEHqxXS G2Z73ze2Q7ECXfWPApMRP7gYE 4 yA9vaJgilualpSCleWvyzbAsp BppQMhhNOgcT746DWGagEsiRb DoUFi4V8EaOzr1DXBwfJhrDF3 n aHXyRFplYf7gsHzjaNnxWR9xH IWscspmh727QjAuu2olDMLqpT GeZJgnQXP8T79rc2V1VWDqZHT w GFJ0wRC1eW3mqVspesfefBCvj DhpcqSwvOnpUJnfPIeoN642XJ GuzPjtCjGygKa9E3IjPkj2TSU z sTtjNE9auEEsNZxxRx1koUzjd ZbbUR9wKBIbuafll975RfTtk8 zbTXOaeHVmQVvoXGV5R30sz6S 6 APUaQDOxNUN4qIV5mY8ybLnjs jogbGVmdDsgdmVydGljYWwtYW leV791AVWdiWitWoXsrSrbarS g DBynKGa7K6JkWoojeGE+PC90Y DNmWY70aPZmtVZhm4wplHx6Pc AvMNCjVQR1dUaxOWmwr9OhLVE t N55bcDGli8Y8IUUhmFemrHRxO uAnuKZ6iC4rSBeogbqrm0hwcy qeGooyk9ckjv86zY48I69nAHc p VOBzDPPiTPPyOUEfoQiaih1jv G9wIi8+SMFxdFX4wZM9yD1hYC EhOfF8DBfoP590UqDevAOtAgl j n2wph1apsVh2MwN3OCNmtmAzd VqaMAR9v7RkWv35P75vRZxeQZ EgKNMwPRJxDKYubKuabq4crP7 w Ii8+EBBrhUZ6hME9sT0vBaQeH sP3KAonZ467ZoWyoDTwJidlG1 3nB0PjcZA+EVDsHhe5MNUyxHn s SA0sePWhWCwuIv8pTGT4WoWrW kZqXIhoB0CfMKMyrakbhrgqjR C3BSPbKFLqgH28Sc3ysSzfWSE w oDKSdW6sqqtxa8fhxzkrYoTiA BYjBUn7PQx2SANfkVmhOnZfOO I7WtH1EYO6qUOqwW5kdNychxr g kS9gR5TnPGTxxngsPm18kE4mL aFsZuX2ACbbMmb+NmhKR0MnEW FMGI8mM5kDJGzCTZvbrEU+PHR k UKW5bRewLEfzXVAtlD0eJMItM 4z0IjFaUoT3FMkrW1CcGFZqgd dyWy28eR7nYoJfXzC8CDdxY5A v bvA6KBRkcMLiSTwkGCA1W62sg 5R8WQItWMLpXNU9gTR5kQ1ezE lnbjogbGVmdDsgdmVydGljYWw t SUkqA637WORzkImkTkHgZyF1U pY5AcD8W5GrCyb2KISzoDfeWH 0yrCPyGLmrBn4cpSkjpSeyUQ5 w KKLfqiwsTOIhfS4zYFEczAUqe ZxhQD2sIRWthlice666JrMgSB R6HULllQNdW5TmzN6vMkXgFBC w EGWkM5DugKJqVScrL889ZXqlY vD5JWPcerAxH1DfJWRimLtsDq P5v7L1Ed85OaCALOCcfwulvQS + CDPhTSL0aDajJHddMASovD9uR KXmL4m6StVdQyI5XXusV4OhTH BbnbocHv00pU5pGxYdDbV1WNf u P2HuxvY1UCKxeQSnVJioVUH1C 35dq8E0MNVzCPDsRVK4vJJ1yI 1hbGlnbjogbGVmdDsgdmVydGl j QWzhYWkdF569UTKjiXnyZx5TR LU8Q6QbRoj8LRIuwTgiVX6ckR WzULusZb0sfTeipXmgFU1wBIQ p susuZCIfaH8oFOPknNDlqUlgF E1nWNFjkjsfs985OcOnIUU7OS NqqBWmE4PrmN6iViRdYPTtUDM w H5ZqyJUfVDyjL562EIeiInI6L MZvrxIeV3GsGHYstWnrIdH4a5 J3Mn5XCYC1kzScsyuqB4B2qMW 0 aWVudDwvdGQ+UA43sa86O7UaG mzkUge3UANkYFA7uVN9uC7kRG QuKEvuu3D6yWC7Y3MvbiAsop3 j g3lbPNZsCPzwF54aqIYuf7Y5R HDpaUT6STWulSxeYvFhzY64Zd c+IVZhhVvmk9DyZahxp7kqs3m k dHz1UqJmRVKkziFljWiyIAM2g 8RlZj55P86yPYucCLXdRXUbNH SjNWOkzNjhjc9xsC1tMe1+PGN v cIB6uHG6aS1aOwMgTpV5OFmqM 730MoOdrLHbLrawe4yfn4whzV s7RwDgMLGdltPmfBosMWW5t7L i Qp47P9TkpImhe9GeEoe5gt81f SFrg3Z4lSU8O8LiODNkwrynnN FzhOlaMA8sQMIrzgwpHWUtpL5 n RRDdD0w9UfWiNjO7AGpvD7Sot wS3EGMmhCKaELPpnJRAhK3sko qyu0xqlqbmNsDyRMIuKHj9JMk 0 QFQbpAacDbPrMIF8UsB1VBG5k NGqiL7blLitsxiwlC4vGbt+UG y6k6digUVtNZ5esDH5RG40IR3 8 tRKsx7G4uLB9O4NjLOWwgdoeu obzmCC5TGCpQLXpnB35Yg5gqP dxHc3jVHYkVEJ9EZCthUJaV8U v fF8tLqTiDLVzYGMiL6NjrGIkT NscE460UZopCnK3ADPxpjPpC5 AoVVNbeBeiXrD3m1T7Vh2VTN2 6 MU35EV78nHSue4N9bFD4F7AkQ CUecodbvenhwOR1YZKzESGekQ 45Tb3umLykNr0kVHJpIAX6JQZ p qOKwL9FoaJ2tEkWvDXQbTQLsM 0OldQGnDDdtN054JNbmYdW3QJ BtmpLzS4DgCHDigFcfSkA6a8F 7 Uq5DHj65BD43XX02yDSup1X1r SV2W2AmKKTjvndfeughbTN4RX XpGRNuwI06Kv6zpEtqLr4gUIF x VGK6EPSxkDCrU1OukB5xJoYlE AQrOAKsP0UhzEJcIUatY012KO smDlS2JTObsuKvW2OhHWXotOj u OwA9f6I0Gs1VOJndudg9G7XjY jwvdHI+LI27YKNtIW39sUGscC Wef8wtxLb7OoWcDRPzZOV6fMq l PSd (more content not included)... [facility] Provider Orderson 02-11-2024 Provider Orders [id number]#1.00OTGTIF F [facility] Lab - Other Lab Resultson Lab - Other Lab Results [id number] Rad[facility] Report on 02-04-2024 Rad - Other Radiology Report [id number]#1.00OTGTI [facility] Coding Summaryon 09-23-2023 Coding Summary HTMLBase 64 RhxqpfiqODi7yWi+PGhlYWQ+P N5FYHMvM83rtTFdoM1pS3TNJL lOSywgQVBQTElOSyIgbmFtZT1 kaXNjZXJu IC8+UR9dRGQbMntzlKGpv9Q2p LN2K38nty6yYFzxbWY3BRYdUv Vbjkfqa8dihRr9BYkmQqsiTrT t JGMblB27JAE1dX00Us73oBKci LRaw8ykiRo0BbWyXTWgHWR6lG hjRTnkp3OmEHGbY23hcVImv5K 6 EYPniFajyNGoFbHupLE9dH3wI Bgixfphf2qkycbbWot0gh31yN Dlo2T3tTZ0U6IwhbZ4QUYelGO g UifloDLDsM9vuvkhk6gmimreB qPdJFFyRQd1VGb5BJQfpZebWt LiTO84ERA0CMWqapEdA3IxZRB s gYrmIwH2m5T8Wt0WP0IMAqdsV 1VNTUFSWTwvdGQ+BF24zs97G5 KnLiwtXvc3QDZaMJF5qDK9xR7 n FMBuNDgtx9V2hPK5I0CegoSbf w1te2ofVMRbOTpvK46waSCba2 T0SWBbyUR2VFVjeBksRfMrwR3 3 Oyc+UNNbhGfcw9AsCpgtl1jli 5fthTt0UvnuMQXdaxEjwWnlKM X9o6OgEq5zRBFvhWF9cAD3wL9 i ZeAaFbH6HXtfY802YwUdwRXuC xiyF16hV9MzfPQ+GPXnKvz7UE OiyTiyTN6bX6RqIROmfqsmeRB m dPhmUN9zYUSneapqSUPasC0eC BUgL7j7DhEhHxV3YNlqT4PzON DoewpnJx88qC4zXqJiLcS0PTm u K9OdbtJ7NWPctRMiFMdiDXV5G 22hj7H1VGTrHYHeCWM9mQE4lN 1hbGlnbjogbGVmdDsgdmVydGl j ERyrAYbjY242UZCffQjhZuQmT GluZyBEYXRlOiAgMDYvMDYvMj AyNDwvdGQ+YNJlFTW4vAobVTR n iBIgRNiaZl8biChehQmbUJ2aX JXvqfcbZYIoeY7oIGCvwJGslC cdNW3tHZTtuwtat512GvWvDTH 0 XQLnrCCkI0FztL2mJeBzHSPmV EWpO9SfyMDqNDohF692NLggJy Q9GRGfopVgX3TrXXCiwOlpRzZ 0 m1U2Ea4Fc6UfjhdeC8VloCRuO yPsRngbMSe8R9TmCoephQB+PC 35BRLqYE14ARy8VVY2fVniUXx i PJKbZ7BddY3wCiXmGINyYCCoU yc+PHRhYmxlIHdpZHRoPScxMD XtDeKafKfjXE0wLi2eLRNzKRV v rCtfxZCpXkKln9lzZFHtDPddT M3chDrpS3AhwEL4BHGof8e7Aw 21L36zG0GlcYF+GEWvpTU5aCR 0 nH6sZgJqVlG1TEtmY783GoNfj SFfUvseo3aiq6looKt7XeS3QP CjhpStfHlzJNR0q1JzAq47D12 s IHdpZHRoPSIxNSUiIHZhbGlnb z6btI0eBh0+FOAyuJD3vII2kA 1bKrTwKgL5TIkgL403BuTgrKT v Qasgn2xhy3bqqIy5VySwPJDjf gEdtWoqSXX9p2MsHq32W9HwiQ tkg7MsIie2ub92sHAgh5E3mBQ 9 P8QhLEJrdxukdCGtiFwpQR5bZ TDylpnuQTCufY1qTXHvI4g2Kj VeAoR2BKshH7YtctO9RWIzjYS g EKZvrDFTxO6rnkimv4biqodsH wVaKWQeAIt4LIy2VHEedImmHv VuLBB6YjP6MLV7fCTckP2rsQs n asiztN0aAyx+TTF4pVCvqHQYP D3dMgggzUO+HJQiCAV1rLytVI piLNSjgO7xOTYdP1u0VzGmPtI 1 RQhsB8JniqU0WJSywJGdACOwh RDCdP5qpfxsl4omiddgBdJmUF RuSJd0VWk1NRPbsNyqPqVfYRT 0 HcE4GRZ0oLHakY0htDhkrgtbn G9wOyc+MxuuqVkqQVY3KFr1K1 VxCqo0XGDhfVoqLO5niXEdFYh u Oh1nzDzglRmgUE3bTDVykpcta 605QoXot3koEZPuzENoVJkgKM H9S82et0P5DTTzPNArYNU4nBA 4 wC0paDddtrwrhAJwxWrssnSba OsgGBktEAnhM405RHBrbAbqPx JrTIh6I1DwBce2PNTtuDxcRM4 n eSRdMUwnQn8grMkleWupHQ6rX MIcobvyr995KaVva1caXIGyuW ApXUmyTCT3D46cu9N5POSjECM w QVO3hHD9xJ7hvFxiiuuldXBww GxlqtAwoRpiYEeyVZxnF762YT OanIonKfAvzCh5Y3VcUxv5TRV z sAuhST1heCZnNQhvMe0bzYvbo EcfXX7xMJNwshghp312VoEek9 siQHOqvLNnJVjkJTT5Z82ir0R 6 CPUgSMDqETF2iOK1lF3beWqjl jogbGVmdDsgdmVydGljYWwtYW zrA349CVCsgGlgPmDypFkbbzG g NXcoLCe8U4EsHaxylFQ+PC90Y UKoEP40kVBauPJqu6jfjGu0Qp RmYDKzTER3oZrvIRjrq9GdGYR t L03eqBCrf2Q4SJFmzCrxbPKqF iErfHW5xW9lECrfzvmxv8xsjq wbGyjuc2ggis54yJ61P77jJIi p KJCwLNXpBJRaCXOmpGkmpc7vc G9wIi8+OYLdvJW9lTN0nH1dSV GfTnX7DFmcR769OsHdfOCrNcf j o7vyx0phxQn8QoZ5BRPhmcFgh FwyDSJ7z3TmMk65A45bHXhuBO EdXAVaUITpJCCvnUcbhs6xvP0 w Ii8+VZZvjFL4hAM8pK5aZjUqV kE6JOfoC957EkDqkTKzNszlD2 6iP1RqsQA+OBUeZgx9AKViuKo s QU3sqVQrNScuFg9fRSZ5XgBmZ cEbAGowP1AwTJXaodqsaujbuD G6TOMaVRDekZ34Qo2xbAupLPV w wWRPgO6clhbiv5qpxyucBvOgZ GRqIHt5JIz2KPMgkTxdKqWqGE P2VeW6TOP4fKMzgX5hxXvyinz g jK4kB7QsGGNcxulsDd69yG8pG qZeCnO9TDguWya+RhfET5RvGZ ZPCW6iNguxxNG+VEJsMJG1sAh l WWluRLCjxZ2sFZFpX1f1FpXqS aW7MTijH3McDHDslsoqWf85qC 4sSkMtEnN5WOzzI7PkwwX2NML w rKSwQZknIWS8X81er5M6FJEbW JUhJCZ5lOT6jY4opAfyrnybsR EshMdmocTgvFfoVMxoZHfgP32 6 TTSvdEeeHsRqSuU5GpW3FdC1O 1WlStr3CXZigChuAJ2hrBXrVJ piBk7esImaxBtbTA4fQARnhoe w SIQyxL6wJPYguFFdzAdtTW3mV BFzseiys883CsCwACZ9UKWzrF GuR9UzsY6rWoEjWRUmMOHiT8T l oWHwSTnoJ863XDntXcV2RPZvf hEhA8UrBGTvhSxjIpL0d4L7Si 41NyBZZWFyczwvdGQ+PHRkIHN 0 nWziTTxfKHYtwT5gALVmJ8p6V oBwMbK3AAmkK0PbVVVadrsvTv 15mH6dIeThOwH3SLzkU7AsljH 6 OHQztJBpGRtnVKP0Q05gp8M3W UUhHUYaQLT0nMQ2wN7lfCqqyh ogbGVmdDsgdmVydGljYWwtYWx p F214PDNwdCrxWx0VNEG9X5VpS qj7YKBarIlxUA4pfRRrPGfsEz 7bgZtrlNupDF6xSLJvgmspOWL k iF5kGIJhvSWniZuuNP5hIVMvm iwrv465GiXrMDI4BOWocCHgY8 VdkH4mRtLsZFUkUXDcL9LliLN t LMwhA618ANjoZeU1FKAbczIqX 0SzVJUwkWzxElZ8x1K4By6FUZ Y8rlYduminH0A0pMI3kZOpxUw v dGQ+BF55xp07K5CdJwvnSor9A KRrLJU3vHY7nV4lKSXnSCblr6 L5iZH6G0NaztElox9lu4neDAP z DCavD31byVKyx9G7LSJohZM5W CFpkMszGrWikZ76Bpo+PGNvbG ylr1KsXruvi9dkl5fgyEa7OpQ w YZAcqyFbqMlgUJV2u8DzAk45K 29sIHdpZHRoPSIzMCUiIHZhbG wqdm8emM7pVk5+OIPtfYN5jAN 0 cK2aTxXdRiV7QUjhL985HkGfe JZwMbvzf4qwn3ywkIf5DeJiID VeznHavGtfADH6d2GtLk41Q2E v tGsac7QtTip5hx08cWEnq6T1q DU5T1JsRCHfdjhlwZNbgIrvJN 8iJOEkfrxrKJLidP2rENSjF7o 0 OuPeEsF3JLcxH0KmhpS0RLHwu OLdONYbhUOKaP4tzvfov5ilft zkUbTuJTAiDSe0SKc1CIZxgQs u RqXrOXT8AzA8ROB9nUYvfI3zi ZcdyrqflB3zYcn+XXv8i2hfeV UkEN8yyUH4GQ38ZL55pGOqo6M 5 tGP8S1EpKZAgkkefkdtnxRA6L YReTRYerC31Qt0qvQkuOc1gFV TjJLT5NABmvNSdK1DmwJ7vHeO j PDRmBZTgN7KkvKAlDRziP598H AyaRgU5LHWneyHuD1PuFZGurJ rzBaE3j4H9Hz0TIA61QT72XS9 8 tFBlv5Q8zLT4Y0ThAPIpwbiul mdwjXN8VTBmGHFjsX40Jn6boS drFi0fDZUrDYC9TNVsmXGwR7R v kJ2vFrYkXWVrHSQsJ3WhqMWfJ OfsC112RDtfBdD4QCQzvpBnA0 ZuTWAlaRytAiA7q5E5Ry8KKv6 6 RA74DL39bAGgq2R4oCK5Z4CjP WLnereuystfcOV4RYKtCFFhmB 43Wh4deUasGw8cIFUmVLZ9XAK p kRVbT2CgeT9oZhWlDSQzNOTsE 4XlpFGwSVmiU530JNlmLmJ5ML KdvmZlA1OnJECaoEptMoD1n6A 7 Po0MLWuibtw1V2NmQvjkzER+P U42FXTwMV34dJTatLOup8gynN h1CyHlSWTkZBR4tObtFIrig8K k ZXI (more content not included)... [facility] Outside Recordson 09-17-2023 Outside Records [id number]#[id number] IFF [facility] XR hip RT min 2V(w/wo pelvis )*on 09-15-2023 XR hip RT min 2V(w/wo pelvis)* [facility] [address] [place] [address] XRay Report Signed Patient: Lyly Quinn MR#: [id number] : 1965 Acct:[id number] Age/Sex: 58 / M ADM Date: 09/15/23 [...] Terrence Basurto M.D.09/15/2023 3:16 PM Dictation Location: [place] [address] Transcribed By: [facility] 09/15/23 1516 Dictated By: Terrence Basurto II, MD 09/15/23 1515 Signed By: 09/15/23 1516 Normal [facility] XR lumbar spine AP/LAT/FLX/E XTon 09-15-2023 XR lumbar spine AP/LAT/FLX/EXT [facility] [address] [place] [address] XRay Report Signed Patient: Lyly Quinn MR#: [id number] : 1965 Acct:[id number] Age/Sex: 58 / M ADM Date: 09/15/23 [facility] Room: Type: REG CLI Attending Dr: Charles [...] Terrence Basurto M.D.09/15/2023 3:19 PM Dictation Location: [place] [address] Transcribed By: [facility] 09/15/23 1519 Dictated By: Terrence Basurto II, MD 09/15/23 1516 Signed By: 09/15/23 1519 Normal [facility] ED Note - Provideron 024 ED Note - Provider [id number]#1.00OTGT IFF [facility] Lab - Other Lab Resultson Lab - Other Lab Results [id number]#1.00OTGT IFF [facility] Outside Recordson 09-08-2023 Outside Records [id number]#1.00OTGTIF F [facility] Provider Orderson 08-26-2023 Provider Orders [id number]#1.00OTGT IFF [facility] Outside Recordson 08-09-2023 Outside Records [id number]#1.00OTGTIFF Normal [facility] NR MRI L-SPINE WOon 05-12-19 NR MRI L-SPINE WO Patient Name: LYLY QUINN STUDY: MRI L-SPINE WO; 05/12/2022 8:35 am INDICATION: acute right foot drop, previous surgery, had MRI 2 weeks ago with insufficient metal reduction unable to assess junctional levels M96.1: Lumbar postlaminectomy syndrome M21.371: Right foot drop. COMPARISON: Outside hospital MRI L-spine dated 04/30/2022 ACCESSION NUMBER(S): [id number] ORDERING CLINICIAN: BEE BLACKMON TECHNIQUE: Sagittal T1, [...] Alvarado. Electronically signed by: DILMA VERA MD [facility] MRI Lumbar Spine w/oon 04-30 MRI [...] Carlos Hayward on 05/01/2022 0917 Normal [facility] [employer] Established Visit (Orthopaed ic Surgery)on 04-27-2022 Established [...] is going to do this in the [facility], we will have them push the [...] 01/07/2021 10:40:28 AM Current Meds Medication NameInstruction Vyrpwiofdl-SVXB-Fwulqxxo 50-300-40 MG Oral CapsuleTAKE 1 CAPSULE BY [...] Apr 27 2022 10:06AM EST (Author) Normal [employer] CBC AUTO DIFFon 04-14-2022 BASO # 0.0 103/ul Normal 0.0-0.1 [facility] Comment on above: Performed By: #### C BC #### [facility] [address] [place] [address] Dr. Devonte Rivas Basophils/100 WBC (Bld) 0.4 % Normal 0.2-2.0 [facility] Comment on above: Performed By: #### C BC #### [facility] [address] [address] [address] Devonte Rivas EO # 0.1 103/ul Normal 0.0-0.7 [facility] Comment on above: Performed By: #### C BC #### [facility] [address] [address] [address] Devonte Rivas Eosinophils/100 WBC (Bld) 0.9 % Normal 0.9-7.0 [facility] Comment on above: Performed By: #### C BC #### [facility] [address] [address] [address] Devonte Rivas Erythrocyte distribution width (RBC) [Ratio] 12.4 % Normal 11.0-15.0 [facility] Comment on above: Performed By: #### C BC #### [facility] [address] [place] [address] Dr. Devonte Rivas Hematocrit (Bld) [Volume fraction] 42.4 % Normal 42.0-54.0 [facility] Comment on above: Performed By: #### C BC #### [facility] [address] [address] [address] Devonte Rivas Hemoglobin (Bld) [Mass/Vol] 14.8 g/dL Normal 14.0-18.0 [facility] Comment on above: Performed By: #### C BC #### [facility] [address] [address] [address] Devonte Rivas IG # 0.03 10e3/ul Normal 0.00-0.03 [facility] Comment on above: Performed By: #### C BC #### [facility] [address] [place] [address] Dr. Devonte Rivas IG % 0.6 % Critically high 0.0-0.5 [facility] Comment on above: Performed By: #### C BC #### [facility] [address] [place] [address] Dr. Devonte Rivas LYMPH # 1.7 103/ul Normal 1.2-3.8 [facility] Comment on above: Performed By: #### C BC #### [facility] [address] [place] [address] Dr. Devonte Rivas Lymphocytes/100 WBC (Bld) 31.6 % Normal 20.5-60.0 [facility] Comment on above: Performed By: #### C BC #### [facility] [address] [place] [address] Dr. Devonte Rivas MANUAL DIFF REQ NO Normal [facility] Comment on above: Performed By: #### C BC #### [facility] [address] [place] [address] Dr. Devonte Rivas MCH (RBC) [Entitic mass] 31.3 pg Normal 25.9-34.0 [facility] Comment on above: Performed By: #### C BC #### [facility] [address] [place] [address] Dr. Devonte Rivas MCHC (RBC) [Mass/Vol] 34.9 g/dL Normal 29.9-35.2 [facility] Comment on above: Performed By: #### C BC #### [facility] [address] [address] [address] Devonte Rivas MCV (RBC) [Entitic vol] 89.6 fL Normal 80.0-94.0 [facility] Comment on above: Performed By: #### C BC #### [facility] [address] [address] [address] Devonte Rivas MONO # 0.9 103/ul Critically high 0.3-0.8 [facility] Comment on above: Performed By: #### C BC #### [facility] [address] [address] [address] Devonte Rivas Monocytes/100 WBC (Bld) 15.6 % Critically high 1.7-12.0 [facility] Comment on above: Performed By: #### C BC #### [facility] [address] [place] [address] Dr. Devonte Rivas NEUT # 2.8 103/ul Normal 1.4-6.5 [facility] Comment on above: Performed By: #### C BC #### [facility] [address] [address] [address] Devonte Rivas Neutrophils/100 WBC (Bld) 50.9 % Normal 43.0-75.0 [facility] Comment on above: Performed By: #### C BC #### [facility] [address] [place] [address] Dr. Devonte Rivas Platelet mean volume (Bld) [Entitic vol] 9.4 fL Critically low 9.5-13.5 [facility] Comment on above: Performed By: #### C BC #### [facility] [address] [place] [address] Dr. Devonte Rivas PLT 194 103/ul Normal 150-450 [facility] Comment on above: Performed By: #### C BC #### [facility] [address] [address] [address] Devonte Rivas RBC 4.73 106/ul Normal 4.70-6.10 [facility] Comment on above: Performed By: #### C BC #### [facility] [address] [place], [place] [address] Dr. Devonte Rivas WBC 5.4 103/ul Normal 4.0-11.0 [facility] Comment on above: Performed By: #### C BC #### [facility] [address] [place], [place] [address] Dr. Devonte Rivas CTA CHEST WO W [...] DANIEL BENITEZ Date: 2022-04-14 10:29 Normal [facility] Covid-19 PCR (CVDTBH)on 03-20 SARS-CoV-2 (COVID-19) RNA LEATHA+probe Ql (Unsp spec) Detected Critically abnormal NOT DETECTED [facility] Comment on above: Result Comment: This test is not yet approved or cleared by the [place] FDA. When there are no FDA-approved or cleared tests available, and other criteria are met, FDA can make tests available under an emergency access mechanism called an Emergency Use Authorization (EUA). The EUA for this test is supported by the [place] of Health and Human Service's declaration that [...] used). Performed By: #### C VDTBH #### [facility] [address] [place] [address] Dr. Devonte Rivas INFLUENZA A AND B AGon 04-14 [facility] SEE BELOW Normal [facility] Comment on above: Result Comment: Nega tive for Flu A protein angiten. Infection due to Flu A cannot be ruled out. Flu A angiten in the sample may be below the detection limit of the test. Performed By: #### I NFLUAB #### [facility] [address] [place] [address] Dr. [facility] Normal [facility] Comment on above: Result Comment: Nega tive for Flu B protein antigen. Infection due to Flu B cannot be ruled out. Flu B antigen in the sample may be below the detection limit of the test. Performed By: #### I NFLUAB #### [facility] [address] [place] [address] Dr. Devonte Rivas INFLUENZA A AG Negative Normal NEGATIVE SEE COMMENT [facility] Comment on above: Performed By: #### I NFLUAB #### [facility] [address] [place] [address] Dr. Devonte Rivas INFLUENZA B AG Negative Normal NEGATIVE SEE COMMENT [facility] Comment on above: Performed By: #### I NFLUAB #### [facility] [address] [place] [address] Dr. Devonte Rivas INTERNAL CONTROLS Within Normal Limits Normal Wi thin Normal Limits [facility] Comment on above: Performed By: #### I NFLUAB #### [facility] [address] [place] [address] Dr. Devonte Rivas PROF CHEM 8 (BAS METB)on Anion gap [Moles/Vol] 12.0 mmol/L Normal [facility] Comment on above: Performed By: #### H STROPN, BMP #### [facility] [address] [place] [address] Dr. Devonte Rivas Calcium [Mass/Vol] 9.2 mg/dL Normal 8.5-10.1 [facility] Comment on above: Performed By: #### H STROPN, BMP #### [facility] [address] [place] [address] Dr. Devonte Rivas Chloride [Moles/Vol] 100 mmol/L Normal 98-107 [facility] Comment on above: Performed By: #### H STROPN, BMP #### [facility] [address] [place] [address] Dr. Devonte Rivas CO2 [Moles/Vol] 26.2 mmol/L Normal 21.0-32.0 [facility] Comment on above: Performed By: #### H STROPN, BMP #### [facility] [address] [place] [address] Dr. Devonte Rivas Creatinine [Mass/Vol] 0.99 mg/dL Normal 0.70-1.30 [facility] Comment on above: Performed By: #### H STROPN, BMP #### [facility] [address] [place] [address] Dr. Devonte Rivas EGFR-AF GHANAIAN >60 Normal >=60 [facility] Comment on above: Performed By: #### H STROPN, BMP #### [facility] [address] [place] [address] Dr. Devonte Rivsa EGFR-NON AF GHANAIAN >60 Normal >=60 [facility] Comment on above: Performed By: #### H STROPN, BMP #### [facility] [address] [place] [address] Dr. Devonte Rivas Glucose [Mass/Vol] 163 mg/dL Critically high 74-106 [facility] Comment on above: Performed By: #### H STROPN, BMP #### [facility] [address] [place] [address] Dr. Devonte Rivas Potassium [Moles/Vol] 4.2 mmol/L Normal 3.5-5.1 [facility] Comment on above: Performed By: #### H STROPN, BMP #### [facility] [address] [address] [address] Devonte Rivas Sodium [Moles/Vol] 134 mmol/L Critically low 136-145 Th e [facility] Comment on above: Performed By: #### H CECELIA, LANA #### [facility] [address] [place] [address] Dr. Devonte Rivas Urea nitrogen [Mass/Vol] 11.0 mg/dL Normal 7.0-18.0 [facility] Comment on above: Performed By: #### H CECELIA, BMP #### [facility] [address] [address] [address] Devonte Rivas Urea nitrogen/Creatinine [Mass ratio] 11.1 mg/mg Normal [facility] Comment on above: Performed By: #### H CECELIA, LANA #### [facility] [address] [place] [address] Dr. Devonte Rivas TROPONIN, HIGH SENSITIVITYon 04-14-2022 HSTROP <4.0 Normal 4.0-76.1 [facility] Comment on above: Result Comment: CUT- OFF POINTS HAVE BEEN ESTABLISHED BASED ON THE FOURTH UNIVERSAL DEFINITIONS OF MYOCARDIAL INFARCTION. THE UPPER REFERENCE LIMIT (URL) OF TROPONIN, DEFINED THE 99TH PERCENTILE OF cTnI DISTRIBUTION IN A REFERENCE POPULATION, HAS BEEN CONFIRMED THE DECISION THRESHOLD FOR [place] DIAGNOSIS. Performed By: #### Alexander RAI, BMP #### [facility] [address] [place] [address] Dr. Devonte Rivas XR CHEST 1 Von 04-14-2022 XR CHEST 1 V EXAM: Chest x-ray HISTORY: . SHORTNESS OF BREATH . COMPARISON: 10/26/2010 TECHNIQUE: Frontal and lateral chest. FINDINGS: Heart and vascularity are unremarkable. Lungs are free of focal infiltrates. EKG leads overlie the chest. Impression: No acute heart or lung disease identified. Electronically authenticated by: DANIEL MALDONADO Date: 2022-04-14 09:12 Normal [facility] Established Visit (Orthopaed ic Surgery)on 09-29-2021 Established [...] 01/07/2021 10:40:28 AM Current Meds Medication NameInstruction Ofivtsncyc-ORRE-Ermukqkk 50-300-40 MG Oral CapsuleTAKE 1 CAPSULE BY [...] Sep 29 2021 12:05PM EST (Author) Normal [employer] Office Visiton 09-16-2021 Follow-up visit Diagnoses/Problems Class 1 obesity with body mass index (BMI) of 34.0 to 34.9 in adult (278.00,V85.34) (E66.9,Z68.34) Inappropriate diet or eating habits (V69.1) (Z72.4) Orders Class 1 obesity with body mass index (BMI) of 34.0 to 34.9 in adult Comprehensive Metabolic Panel; Status:Active; Requested for:[id number]; Hemoglobin A1C; Status:Active; Requested for:[id number]; Insulin Level, Serum; Status:Active; Requested for:[id number]; Lipid Panel; Status:Active; Requested for:[id number]; Class 1 obesity with body mass index [...] for weight loss may be short or lobsterman, but that if weight loss is not [...] of coffee (black) V8 juice L - [place] (low calorie tortilla) turkey with salad D [...] Social Hx: Lives with: Spouse 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 [facility] Lum[facility] Spine w/oon 09-05 MRI Lumbar [...] by Chandler Tomlinson on 09/08/2021 1127 Normal [facility] CT Abdomen/Pelvis w/ Contras ton 08-05-2021 [...] Chandler Tomlinson on 08/06/2021 0906 Normal [facility] [employer] Established Visit (Orthopaed ic Surgery)on 07-28-2021 Established Visit (Orthopaedic Surgery) Diagnoses/Problems Assessed Lumbar postlaminectomy syndrome (722.83) (M96.1) Orders Lumbar postlaminectomy syndrome MRI L Spine without Contrast; Status:Hold For - Scheduling,Retrospective Authorization; Requested for:[id number]; Radiologist to Determine Optimal Study : Y Does the patient have a Cochlear Implant, Pacemaker, Defibrilator, Pacing Wire, Brain Aneurysm Clip, Implanted Nerve or Bone Graft Simulator, Implanted Breast Tissue Fresh Foods Clerk, Glucose Monitor, or Neulasta Device? : No [...] 01/07/2021 10:40:28 AM Current Meds Medication NameInstruction Abvbvauduw-YNHH-Erwslsdz 50-300-40 MG Oral CapsuleTAKE 1 CAPSULE BY [...] Jul 28 2021 11:54AM EST (Author) Normal [employer] Office Visiton 06-18-2021 Follow-up visit Diagnoses/Problems Class [...] - continue to follow reduced kcal diet, 2299-5585 focus on protein at each meal, unprocessed [...] for weight loss may be short or correction, but that if weight loss is not [...] coffee and V8 L - yogurt, granola (latvian yogurt, 1/4 cup granola), cream of corn 1 cup Snack - pop corner 100 calorie bag D - veggie burger with andorran cheese AND onion (2 burgers) low calorie [...] Social Hx: Lives with: Spouse 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 Normal [employer] Nutrition-[place] 05-06-2021 Nutrition-Adult Medical Diagnosis Assessed Class [...] fatty acids and low saturated fat content. [place], mackerel, albacore tuna, sardines, mills and franco [...] occasionally snack (more content not included)... Normal [employer] No Panel Informationon 04-23 3665 1 UT-Ylgxkvp-F arma [id number] Work Phone: [phone] JL-Tmjxlxm-U arma [address] Work Phone: [phone] ZW-Tjoqpfs-T arma [address] Work Phone: [phone] WT-Vonqlih-D arma [address] Work Phone: Comment on above: Age: 56Height: 73 in Sex: MLevel of Activity: Sedentary (little or no exercise)Weight: 292 lb 2138 1 KS-Pqwzgcl-Q arma [address] Work Phone: [phone] YR-Zcsnmba-N arma [address] Work Phone: Tobacco Screening.on 022 Fall risk assessment a) No falls within the last year OW-Winkryb-X arma [address] Work Phone: Tobacco use status CPHS b) No CV-Mwpedxj-E arma [address] Work Phone: Radiologyon 03-10-2021 [...] with neurogenic claudication. COMPARISON: 12/09/2020. ACCESSION NUMBER(S): [id number] ORDERING CLINICIAN: BEE BLACKMON FINDINGS: Lumbosacral spine [...] Electronically signed by: JANET VILLARREAL MD Normal [facility] Radiologyon 12-09-2020 XR Lumbar spine AP and Lateral Please click on the link to view the study images Normal MG-Orthopaed [facility] Work Phone: SPINE, LUMBOSACRAL; 2 OR 3 V IEWSon 12-09-2020 SPINE, LUMBOSACRAL; 2 OR 3 VIEWS Patient Name: LYLY QUINN STUDY: Lumbar Spine, 2 views. INDICATION: low back pain. COMPARISON: Outside hospital lumbar spine radiographs 08/29/2020 ACCESSION NUMBER(S): [id number] ORDERING CLINICIAN: BEE BLACKMON FINDINGS: Redemonstration of [...] Electronically signed by: WILLIAMS GUZMAN MD Normal [facility] BASIC METABOLIC PANELon 11-17 ANION GAP Canceled Normal [facility] Comment on above: Order Comment: TEST BASIC METABOLIC PANEL WAS CANCELLED, 12/01/2020 18:56 NO SPECIMEN RECEIVED IN LAB. Performed By: #### B MP #### [facility] [address] [place] [address] BICARBONATE Canceled Normal [facility] Comment on above: Order Comment: TEST BASIC METABOLIC PANEL WAS CANCELLED, 12/01/2020 18:56 NO SPECIMEN RECEIVED IN LAB. Performed By: #### B MP #### [facility] [address] [place] [address] CALCIUM Canceled Normal [facility] Comment on above: Order Comment: TEST BASIC METABOLIC PANEL WAS CANCELLED, 12/01/2020 18:56 NO SPECIMEN RECEIVED IN LAB. Performed By: #### B MP #### [facility] [address] [place] [address] CHLORIDE Canceled Normal [facility] Comment on above: Order Comment: TEST BASIC METABOLIC PANEL WAS CANCELLED, 12/01/2020 18:56 NO SPECIMEN RECEIVED IN LAB. Performed By: #### B MP #### [facility] [address] [place] [address] CREATININE Canceled Normal [facility] Comment on above: Order Comment: TEST BASIC METABOLIC PANEL WAS CANCELLED, 12/01/2020 18:56 NO SPECIMEN RECEIVED IN LAB. Performed By: #### B MP #### [facility] [address] [place] [address] GFR- AM. Canceled Normal [facility] Comment on above: Order Comment: TEST BASIC METABOLIC PANEL WAS CANCELLED, 12/01/2020 18:56 NO SPECIMEN RECEIVED IN LAB. Result Comment: CALC ULATIONS OF ESTIMATED GFR ARE PERFORMED USING THE MDRD STUDY EQUATION FOR THE IDMS-TRACEABLE CREATININE METHODS. CLIN CHEM 2007;53:766-72 Performed By: #### B MP #### [facility] [address] [place] [address] GFR-NON AM. Canceled Normal [facility] Comment on above: Order Comment: TEST BASIC METABOLIC PANEL WAS CANCELLED, 12/01/2020 18:56 NO SPECIMEN RECEIVED IN LAB. Performed By: #### B MP #### [facility] [address] [place] [address] GLUCOSE Canceled Normal [facility] Comment on above: Order Comment: TEST BASIC METABOLIC PANEL WAS CANCELLED, 12/01/2020 18:56 NO SPECIMEN RECEIVED IN LAB. Performed By: #### B MP #### [facility] [address] [place] [address] POTASSIUM Canceled Normal [facility] Comment on above: Order Comment: TEST BASIC METABOLIC PANEL WAS CANCELLED, 12/01/2020 18:56 NO SPECIMEN RECEIVED IN LAB. Performed By: #### B MP #### [place] [address] [place] [address] SODIUM Canceled Normal [facility] Comment on above: Order Comment: TEST BASIC METABOLIC PANEL WAS CANCELLED, 12/01/2020 18:56 NO SPECIMEN RECEIVED IN LAB. Performed By: #### B MP #### [facility] [address] [place] [address] UREA NITROGEN Canceled Normal [facility] Comment on above: Order Comment: TEST BASIC METABOLIC PANEL WAS CANCELLED, 12/01/2020 18:56 NO SPECIMEN RECEIVED IN LAB. Performed By: #### B MP #### [facility] [address] [place] [address] CBCon 12-01-2020 HCT Canceled Normal [facility] Comment on above: Order Comment: TEST CBC WAS CANCELLED, 12/01/2020 18:56 NO SPECIMEN RECEIVED IN LAB. Performed By: #### C BC #### [facility] [address] [place] [address] HGB Canceled Normal [facility] Comment on above: Order Comment: TEST CBC WAS CANCELLED, 12/01/2020 18:56 NO SPECIMEN RECEIVED IN LAB. Performed By: #### C BC #### [facility] [address] [place] [address] MCHC Canceled Normal [facility] Comment on above: Order Comment: TEST CBC WAS CANCELLED, 12/01/2020 18:56 NO SPECIMEN RECEIVED IN LAB. Performed By: #### C BC #### [facility] [address] [place] [address] MCV Canceled Normal [facility] Comment on above: Order Comment: TEST CBC WAS CANCELLED, 12/01/2020 18:56 NO SPECIMEN RECEIVED IN LAB. Performed By: #### C BC #### [facility] [address] [place] [address] NUCLEATED RBC Canceled Normal [facility] Comment on above: Order Comment: TEST CBC WAS CANCELLED, 12/01/2020 18:56 NO SPECIMEN RECEIVED IN LAB. Performed By: #### C BC #### [facility] [address] [place] [address] PLT Canceled Normal [facility] Comment on above: Order Comment: TEST CBC WAS CANCELLED, 12/01/2020 18:56 NO SPECIMEN RECEIVED IN LAB. Performed By: #### C BC #### [facility] [address] [place] [address] RBC Canceled Normal [facility] Comment on above: Order Comment: TEST CBC WAS CANCELLED, 12/01/2020 18:56 NO SPECIMEN RECEIVED IN LAB. Performed By: #### C BC #### [facility] [address] [place] [address] RDW-CV Canceled Normal [facility] Comment on above: Order Comment: TEST CBC WAS CANCELLED, 12/01/2020 18:56 NO SPECIMEN RECEIVED IN LAB. Performed By: #### C BC #### [facility] [address] [place] [address] WBC Canceled Normal [facility] Comment on above: Order Comment: TEST CBC WAS CANCELLED, 12/01/2020 18:56 NO SPECIMEN RECEIVED IN LAB. Performed By: #### C BC #### [facility] [address] [place] [address] BASIC METABOLIC PANELon 11-17 ANION GAP Canceled Normal [facility] Comment on above: Order Comment: TEST BASIC METABOLIC PANEL WAS CANCELLED, 11/29/2020 10:53 NO SPECIMENRECEIVED IN LAB. Performed By: #### B MP ####[id number] [place] [address] BICARBONATE Canceled Normal [facility] Comment on above: Order Comment: TEST BASIC METABOLIC PANEL WAS CANCELLED, 11/29/2020 10:53 NO SPECIMENRECEIVED IN LAB. Performed By: #### B MP ####[id number] [place] [address] CALCIUM Canceled Normal [facility] Comment on above: Order Comment: TEST BASIC METABOLIC PANEL WAS CANCELLED, 11/29/2020 10:53 NO SPECIMENRECEIVED IN LAB. Performed By: #### B MP ####[id number] [place] [address] CHLORIDE Canceled Normal [facility] Comment on above: Order Comment: TEST BASIC METABOLIC PANEL WAS CANCELLED, 11/29/2020 10:53 NO SPECIMENRECEIVED IN LAB. Performed By: #### B MP ####[id number] [place] [address] CREATININE Canceled Normal [facility] Comment on above: Order Comment: TEST BASIC METABOLIC PANEL WAS CANCELLED, 11/29/2020 10:53 NO SPECIMENRECEIVED IN LAB. Performed By: #### B MP ####[id number] [place] [address] GFR- AM. Canceled Normal [facility] Comment on above: Order Comment: TEST BASIC METABOLIC PANEL WAS CANCELLED, 11/29/2020 10:53 NO SPECIMENRECEIVED IN LAB. Result Comment: CALC ULATIONS OF ESTIMATED GFR ARE PERFORMED USING THE MDRD STUDY EQUATION FOR THE IDMS-TRACEABLE CREATININE METHODS. CLIN CHEM 2007;53:766-72 Performed By: #### B MP ####[id number] [place] [address] GFR-NON AM. Canceled Normal [facility] Comment on above: Order Comment: TEST BASIC METABOLIC PANEL WAS CANCELLED, 11/29/2020 10:53 NO SPECIMENRECEIVED IN LAB. Performed By: #### B MP ####[id number] [place] [address] GLUCOSE Canceled Normal [facility] Comment on above: Order Comment: TEST BASIC METABOLIC PANEL WAS CANCELLED, 11/29/2020 10:53 NO SPECIMENRECEIVED IN LAB. Performed By: #### B MP ####[id number] [place] [address] POTASSIUM Canceled Normal [facility] Comment on above: Order Comment: TEST BASIC METABOLIC PANEL WAS CANCELLED, 11/29/2020 10:53 NO SPECIMENRECEIVED IN LAB. Performed By: #### B MP ####[id number] [place] [address] SODIUM Canceled Normal [facility] Comment on above: Order Comment: TEST BASIC METABOLIC PANEL WAS CANCELLED, 11/29/2020 10:53 NO SPECIMENRECEIVED IN LAB. Performed By: #### B MP ####[id number] [place] [address] UREA NITROGEN Canceled Normal [facility] Comment on above: Order Comment: TEST BASIC METABOLIC PANEL WAS CANCELLED, 11/29/2020 10:53 NO SPECIMENRECEIVED IN LAB. Performed By: #### B MP ####[id number] [place] [address] CBCon 11-29-2020 HCT Canceled Normal [facility] Comment on above: Order Comment: TEST CBC WAS CANCELLED, 11/29/2020 10:53 NO SPECIMEN RECEIVED IN LAB. Performed By: #### C BC ####[id number] [place] [address] HGB Canceled Normal [facility] Comment on above: Order Comment: TEST CBC WAS CANCELLED, 11/29/2020 10:53 NO SPECIMEN RECEIVED IN LAB. Performed By: #### C BC ####[id number] [place] [address] MCHC Canceled Normal [facility] Comment on above: Order Comment: TEST CBC WAS CANCELLED, 11/29/2020 10:53 NO SPECIMEN RECEIVED IN LAB. Performed By: #### C BC ####[id number] [place] [address] MCV Canceled Normal [facility] Comment on above: Order Comment: TEST CBC WAS CANCELLED, 11/29/2020 10:53 NO SPECIMEN RECEIVED IN LAB. Performed By: #### C BC ####[id number] [place] [address] NUCLEATED RBC Canceled Normal [facility] Comment on above: Order Comment: TEST CBC WAS CANCELLED, 11/29/2020 10:53 NO SPECIMEN RECEIVED IN LAB. Performed By: #### C BC ####[id number] [place] [address] PLT Canceled Normal [facility] Comment on above: Order Comment: TEST CBC WAS CANCELLED, 11/29/2020 10:53 NO SPECIMEN RECEIVED IN LAB. Performed By: #### C BC ####[id number] [place] [address] RBC Canceled Normal [facility] Comment on above: Order Comment: TEST CBC WAS CANCELLED, 11/29/2020 10:53 NO SPECIMEN RECEIVED IN LAB. Performed By: #### C BC ####[id number] [place] [address] RDW-CV Canceled Normal [facility] Comment on above: Order Comment: TEST CBC WAS CANCELLED, 11/29/2020 10:53 NO SPECIMEN RECEIVED IN LAB. Performed By: #### C BC ####[id number] [place] [address] WBC Canceled Normal [facility] Comment on above: Order Comment: TEST CBC WAS CANCELLED, 11/29/2020 10:53 NO SPECIMEN RECEIVED IN LAB. Performed By: #### C BC ####[id number] [place] [address] BASIC METABOLIC PANELon 11-17 Anion gap [Moles/Vol] 15 mmol/L Normal 10 - 20 [facility] Comment on above: Performed By: #### B MP #### [facility] [address] [place] [address] Calcium [Mass/Vol] 9.7 mg/dL Normal 8.6 - 10.6 [facility] Comment on above: Performed By: #### B MP #### [facility] [address] [place] [address] Chloride [Moles/Vol] 99 mmol/L Normal 98 - 107 [facility] Comment on above: Performed By: #### B MP #### [facility] [address] [place] [address] Creatinine [Mass/Vol] 0.81 mg/dL Normal 0.50 - 1.30 [facility] Comment on above: Performed By: #### B MP #### [facility] [address] [place] [address] GFR- AM. >60 Normal >60 [facility] Comment on above: Result Comment: CALC ULATIONS OF ESTIMATED GFR ARE PERFORMED USING THE MDRD STUDY EQUATION FOR THE IDMS-TRACEABLE CREATININE METHODS. CLIN CHEM 2007;53:766-72 Performed By: #### B MP #### [facility] [address] [place] [address] GFR-NON AM. >60 Normal >60 [facility] Comment on above: Performed By: #### B MP #### [facility] [address] [place] [address] Glucose [Mass/Vol] 188 mg/dL High 74 - 99 [facility] Comment on above: Performed By: #### B MP #### [facility] [address] [place] [address] HCO3 (Bld) [Moles/Vol] 26 mmol/L Normal 21 - 32 [facility] Comment on above: Performed By: #### B MP #### [facility] [address] [place] [address] Potassium [Moles/Vol] 5.1 mmol/L Normal 3.5 - 5.3 [facility] Comment on above: Performed By: #### B MP #### [facility] [address] [place] [address] Sodium [Moles/Vol] 135 mmol/L Low 136 - 145 [facility] Comment on above: Performed By: #### B MP #### [facility] [address] [place] [address] Urea nitrogen [Mass/Vol] 16 mg/dL Normal 6 - 23 [facility] Comment on above: Performed By: #### B MP #### [facility] [address] [place] [address] CBCon 11-27-2020 Erythrocyte distribution width (RBC) [Ratio] 12.8 % Normal 11.5 - 14.5 [facility] Comment on above: Performed By: #### C BC #### [facility] [address] [place] [address] Hematocrit (Bld) [Volume fraction] 43.9 % Normal 41.0 - 52.0 [facility] Comment on above: Performed By: #### C BC #### [facility] [address] [place] [address] Hemoglobin (Bld) [Mass/Vol] 14.2 g/dL Normal 13.5 - 17.5 [facility] Comment on above: Performed By: #### C BC #### [facility] [address] [place] [address] [place] MCHC (RBC) [Mass/Vol] 32.3 g/dL Normal 32.0 - 36.0 [facility] Comment on above: Performed By: #### C BC #### [facility] [address] [place] [address] MCV (RBC) [Entitic vol] 94 fL Normal 80 - 100 [facility] Comment on above: Performed By: #### C BC #### [facility] [address] [place] [address] [place], [place] NUCLEATED RBC 0.0 /100 WBC Normal 0.0-0.0 [facility] Comment on above: Performed By: #### C BC #### [facility] [address] [place] [address] Platelets (Bld) [#/Vol] 237 10*3/uL Normal 150 - 450 [facility] Comment on above: Performed By: #### C BC #### [facility] [address] [place] [address] RBC 4.65 x10E12/L Normal 4.50 - 5.90 [facility] Comment on above: Performed By: #### C BC #### [facility] [address] [place] [address] WBC (Bld) [#/Vol] 8.5 10*3/uL Normal 4.4 - 11.3 [facility] Comment on above: Performed By: #### C BC #### [facility] [address] [place] [address] Daily Progress Note-Orthopae nenitason 11-27-2020 Daily Progress [...] advance as tolerated. Bowel regimen - dc CHIEF SUSTAINABILITY OFFICER, POPM starting POD1. Scheduled tylenol. Robaxin. Continue [...] Kevin Marshall MD, PGY-2 Orthopedic Spine Team [id number] Available on [facility] Orthopedic Spine Team Kevin Marshall, PGY-2 ([id number]) Amrit Long PGY-3 ([id number]) Lambert Suarez PGY-4 ([id number]) Please call director consumer resident ([phone]) nights after 6pm and weekends Attestation: Note [...] Updated: 11-Dec-2020 15:25 by Bee Blackmon) Normal [facility] Laboratory - Chemistry and C hemistry - challengeon 11-27-2020 Anion gap [Moles/Vol] 15 mmol/L 10 - 20 [facility] Work Phone: Calcium [Mass/Vol] 9.7 mg/dL 8.6 - 10.6 [facility] [employer] Work Phone: Chloride [Moles/Vol] 99 mmol/L 98 - 107 [facility] Work Phone: CO2 [Moles/Vol] 26 mmol/L 21 - 32 [facility] Work Phone: Creatinine [Mass/Vol] 0.81 mg/dL See Below [facility] Work Phone: Comment on above: Reference Range: 0.5 0 - 1.30 Glucose [Mass/Vol] 188 mg/dL above high threshold 74 - 99 [facility] [employer] Work Phone: Potassium [Moles/Vol] 5.1 mmol/L 3.5 - 5.3 [facility] [employer] Work Phone: Sodium [Moles/Vol] 135 mmol/L below low threshold 136 - 145 [facility] [employer] Work Phone: Urea nitrogen [Mass/Vol] 16 mg/dL 6 - 23 [facility] [employer] Work Phone: Laboratory - Hematology and Cell countson 11-27-2020 Erythrocyte distribution width (RBC) [Ratio] 12.8 % See Below [facility] [employer] Work Phone: Comment on above: Reference Range: 11. 5 - 14.5 Hematocrit (Bld) [Volume fraction] 43.9 % See Below [facility] [employer] Work Phone: Comment on above: Reference Range: 41. 0 - 52.0 Hemoglobin (Bld) [Mass/Vol] 14.2 g/dL See Below [facility] [employer] Work Phone: Comment on above: Reference Range: 13. 5 - 17.5 MCHC (RBC) [Mass/Vol] 32.3 g/dL See Below [facility] [employer] Work Phone: Comment on above: Reference Range: 32. 0 - 36.0 MCV (RBC) [Entitic vol] 94 fL 80 - 100 [facility] [employer] Work Phone: Platelets (Bld) [#/Vol] 237 10*3/uL 150 - 450 [facility] [employer] Work Phone: RBC (Bld) [#/Vol] 4.65 {x10E12/L} See Below [facility] Work Phone: Comment on above: Reference Range: 4.5 0 - 5.90 WBC (Bld) [#/Vol] 8.5 10*3/uL 4.4 - 11.3 [facility] hopa[facility] Work Phone: No Panel Informationon 11-27 >60 >60 [facility] Work Phone: Comment on above: CALCULATIONS OF LUCHO MATED GFR ARE PERFORMED USING THE MDRD STUDY EQUATION FOR THE IDMS-TRACEABLE CREATININE METHODS. CLIN CHEM 2007;53:766-72 0.0 {/100_WBC} 0.0-0.0 [facility] Work Phone: Daily Progress Note-Orthopae thanh 11-26-2020 [...] diet, advance as tolerated. Bowel regimen - CHIEF SUSTAINABILITY OFFICER, will attempt to wean POD#1. Scheduled tylenol. [...] Lambert Suarez MD Orthopedic Surgery PGY-4 Pager: [phone] Please page consult resident [phone]) from 6pm-8am and on weekends. Attestation: Note [...] the note. I personally evaluated the patient [id number] Electronic Signatures: Bee Blackmon) (Signed 11-Dec-2020 15:23) Authored: Note Completion Co-Signer: Service, Subjective Data, Objective Data, Assessment and Plan, Note Completion Lambert Suarez (Resident)) (Signed 26-Nov-2020 14:32) Authored: Service, Subjective Data, Objective Data, Assessment and Plan, Note Completion Last Updated: 11-Dec-2020 15:23 by Bee Blackmon) Normal [facility] Discharge [id number] Discharge Profile2 Discharge Orders: Significant Events: [...] Spine Reason for ReferralPostoperative Follow-Up Appointment Scheduled Date/[id number] 11:15 [address], Phone NumberOffice: ([place], ) - [phone] CommentsPlease Call Tara Gonzalez RN at [phone] For Any Post-Op Questions Electronic Signatures: Tara Gonzalez (RN) (Signed 26-Nov-2020 13:51) Authored: Discharge Orders, Appointments, Gold Form - [employer] Custodian Summary Bee Blackmon) (Signed 10-Dec-2020 17:40) Co-Signer: Discharge Orders, Hospital Course (Home Care/Gold Form), Provider FINAL REVIEW of Orders, Appointments, Gold Form - [employer] [place] [employer] Custodian Summary Lambert Suarez (Resident)) (Signed 26-Nov-2020 14:34) Entered: Hospital Course (Home Care/Gold Form), Provider FINAL REVIEW of Orders Authored: Discharge Orders, Hospital Course (Home Care/Gold Form), Provider FINAL REVIEW of Orders, Appointments, Gold Form - [employer] [place] [employer] Custodian Summary Last Updated: 10-Dec-2020 17:40 by Bee Blackmon) Normal [facility] GLUCOSE-POCTon 11-26-2020 Glucose [Mass/Vol] 186 mg/dL High 74 - 99 [facility] Comment on above: Performed By: #### G [place]ABS #### [place] [address] Laboratory - Chemistry and C hemistry - challengeon 11-26-2020 Glucose [Mass/Vol] 186 mg/dL above high threshold 74 - 99 [facility] Work Phone: No Panel Informationon 11-26 Please click on the link to view the study images Normal [facility] Work Phone: [facility] [place] [place] [address] Patient Name: RYAN. Taylor QUINN : 1965 [...] [employer] Dec[employer] plate. SURGEON: Bee Blackmon MD TEST CENTER MANAGER(S): Lambert Suarez MD ANESTHESIA: General. CLINICAL [...] confirm retractor (more content not included)... Normal [facility] Order Reconciliationon 11-26 Order Reconciliation Page 1 [...] days, th (more content not included)... Normal [facility] Order Reconciliation Page 1 Admission Reconciliation Document Reconciliation Type: Admission from OR requested on behalf of Lambert Suarez (Resident) done by Lambert Suarez ( (Resident)) Admission from OR - Reconciliation: 26-Nov-2020 14:21 by: Lambert Suarez ( (Resident)) Home MedicationsEnteredLast Dose TakenReconciled with current Order Reconciliation Comment/ Additional Information DULoxetine 60 mg oral delayed release capsule 1 cap(s) orally once a day [id number] AM DULoxetine Delayed Release Capsule (CYMBALTA)DOSE = 60 mg Oral DailyDULoxetine 60 mg oral delayed release capsule continued as the inpatient order DULoxetine fenofibrate 48 mg oral tablet 1 tab(s) orally once a [id number] AM Reviewed and Held lisinopril 20 mg oral tablet 1 tab(s) orally once a [id number] AM Lisinopril Tablet (PRINIVIL, ZESTRIL)DOSE = 20 [...] orally once a day (in the evening) [id number] Reviewed and Held Additional Current Orders Albuterol [...] 15 minute(s)Clinician Notes: Charmaine-operative order ONLY Normal [facility] Patient Profile - Preop v2on 11-26-2020 Patient Profile - Preop v2 Profile: Initial Info: How to be AddressedRyan Spoken Language PreferredEnglish Stated Reason for Admissionl3-4 cage Primary Contact Name and NumberMarvine, Patient Belongingssee preop checklist Medications Brought to Hospital[facility]: Weight in kg129.7 kilogram(s) Weight in bgw545.9 pound(s) Weight Methodactual (measured) Scale Typestanding Height [...] Learning Preferencesindividual instruction Cultural Considerationsnone Developmental Considerationsnone Restorationist Considerationsnone Other learner availableno [place] RiskPatient location auto qualifies him/her for HIGH RISK. Are there any cultural, spiritual, anabaptism practices/values/needs that are important for us to [...] 26-Nov-2020 12:05 by Pat Padilla (BENI) Normal [facility] Vital Signs Date Time Vital Sign Value Performing Clinician Facility 03-27-2024 09:46-0500 Body mass index (BMI) [Ratio] 34.72 kg/m2 Karon Rodriguez NP Work Phone: [facility] 03-27-2024 09:46-0500 Body weight 116.12 kg Karon Rodriguez DATABASE ENGINEER Work Phone: [facility] 03-27-2024 09:46-0500 Diastolic blood pressure 96 mm[Hg] Karon Rodriguez DATABASE ENGINEER Work Phone: [facility] 03-27-2024 09:46-0500 Heart rate 82 /min Karon Rodriguez DATABASE ENGINEER Work Phone: [facility] 03-27-2024 09:46-0500 Systolic blood pressure 148 mm[Hg] Karon Rodriguez DATABASE ENGINEER Work Phone: [facility] 09-15-2023 10:11-0400 Body height 184.15 cm DO Kimi Weiss Work Phone: [facility] 09-15-2023 10:11-0400 Body mass index (BMI) [Ratio] 35.2 kg/m2 DO Kimi Weiss Work Phone: [facility] 09-15-2023 10:11-0400 Body weight 119.29 kg DO Kimi Weiss Work Phone: [facility] 09-07-2023 10:35-0400 Diastolic blood pressure 98 mm[Hg] DO Kimi Weiss Work Phone: [facility] 09-07-2023 10:35-0400 Heart rate 102 /min DO Kimi Weiss Work Phone: [facility] 09-07-2023 10:35-0400 Respiratory rate 20 /min DO Kimi Weiss Work Phone: [facility] 09-07-2023 10:35-0400 SaO2% (BldA) [Mass fraction] 96 % DO Kimi Weiss Work Phone: [facility] 09-07-2023 10:35-0400 Systolic blood pressure 160 mm[Hg] DO Kimi Weiss Work Phone: [facility] 09-07-2023 10:00-0400 Inhaled oxygen flow rate 3 L/min DO Kimi Weiss Work Phone: [facility] 09-07-2023 09:19-0400 Body height 182.88 cm DO Kimi Weiss Work Phone: [facility] 09-07-2023 09:19-0400 Body weight 120.2 kg DO Kimi Weiss Work Phone: [facility] 09-16-2021 14:17-0400 Body mass index (BMI) [Ratio] 34.45 kg/m2 Kimi Weiss Work Phone: SK-Vcxwtal-Jniyu [facility] [address] Work Phone: 09-16-2021 14:17-0400 Body surface area Derived from formula 2.36 m2 Kimi Weiss Work Phone: RD-Fdoimmf-Qphmo [facility] [address] Work Phone: 09-16-2021 14:17-0400 Body weight 115.21 kg Kimi Weiss Work Phone: IB-Hsedpjt-Pacfr [facility] Work Phone: 07-23-2021 09:45-0400 Body height 184.15 cm Charles Brisenodelma Other [employer] Other 07-23-2021 09:45-0400 Body mass index (BMI) [Ratio] 34.51 kg/m2 Charles Claros Other [employer] Other 07-23-2021 09:45-0400 Body weight 117.03 kg Charles Claros Other [employer] Other 06-18-2021 14:17-0500 Body mass index (BMI) [Ratio] 36.75 kg/m2 Kimi Weiss Work Phone: BC-Rbbmkli-Fxdaz [facility] [address] Work Phone: 06-18-2021 14:17-0500 Body surface area Derived from formula 2.42 m2 Kimi Weiss Work Phone: QI-Byonqlw-Rdhaz [facility] Work Phone: 06-18-2021 14:17-0500 Body weight 122.93 kg Kimi Weiss Work Phone: RV-Hzdbinv-Pndgg [address] Work Phone: 04-23-2021 09:49-0500 Body height 182.88 cm Kimi Weiss Work Phone: MA-Wbmphoc-Viail [facility] Work Phone: 04-23-2021 09:49-0500 Body mass index (BMI) [Ratio] 39.6 kg/m2 Kimi Weiss Work Phone: RV-Nxacbdv-Jxnad [facility] [address] Work Phone: 04-23-2021 09:49-0500 Body surface area Derived from formula 2.5 m2 Kimi Weiss Work Phone: SW-Rqqlich-Fesxs [address] Work Phone: 04-23-2021 09:49-0500 Body weight 132.45 kg Kimi Santos Abhishek Work Phone: YQ-Uensxkm-Nwyqb [address] Work Phone: 04-02-2021 09:45-0500 Body height 184.15 cm Charles Claros Other [employer] Other 04-02-2021 09:45-0500 Body mass index (BMI) [Ratio] 35.44 kg/m2 Charles Claros Other [employer] Other 04-02-2021 09:45-0500 Body weight 120.2 kg Charles Claros Other [employer] Other Encounters Encounter Date Encounter Type Care Provider Facility Start: 04-03-2024 End: 04-03-2024 ambulatory Kimi Weiss Facility: [facility] Start: 03-27-2024 End: 03-27-2024 Bamboo flowsheet Karon Rodriguez DATABASE ENGINEER Work Phone: [employer] [facility] Start: 03-27-2024 End: 03-27-2024 Bamboo flowsheet Karon Rodriguez DATABASE ENGINEER Work Phone: [employer] [facility] Start: 03-27-2024 End: 03-27-2024 Office outpatient visit 25 minutes Karon Rodriguez DATABASE ENGINEER Work Phone: [employer] [facility] Comment on above: Chronic cluster head ache, not intractable (Primary Dx); Essential hypertension (CMS/HCC); History of blood clots Start: 03-27-2024 End: 03-27-2024 ambulatory KARON RODRIGUEZ Not Available Start: 03-07-2024 ambulatory Kimi Weiss Facili ty:[facility] Start: 02-21-2024 End: 02-21-2024 ambulatory Kimi Weiss Facility: [facility] Start: 02-07-2024 End: 02-07-2024 ambulatory Kimi Weiss Facility: [facility] Start: 01-17-2024 End: 01-17-2024 ambulatory BEE Fisher [facility] Start: 01-03-2024 End: 01-03-2024 ambulatory Kimi Danielle Weiss Facility: [facility] Start: 11-30-2023 End: 11-30-2023 ambulatory KARON RODRIGUEZ Not Available Start: 09-15-2023 End: 09-15-2023 ambulatory Kimi Weiss Facility:[facility] Start: 09-15-2023 End: 09-15-2023 ambulatory DO Kimi Weiss Work Phone: [facility] Work Phone: Start: 09-15-2023 End: 09-15-2023 Patient encounter procedure DO Kimi Abhishek Work Phone: [facility] Work Phone: Start: 09-07-2023 End: 09-07-2023 ambulatory Charles Claros Facility:[facility] Start: 09-07-2023 Non-patient / Non-visit DO Mike sandy Abhishek Work Phone: [facility] Work Phone: Start: 09-07-2023 End: 09-07-2023 Admission to same day surgery center DO Kimi Weiss Work Phone: [facility] Work Phone: Start: 09-07-2023 End: 09-07-2023 ambulatory DO Kimi Weiss Work Phone: [facility] Work Phone: Start: 08-16-2023 ambulatory Kimi Almazani ty:[facility] Start: 08-09-2023 End: 08-09-2023 ambulatory THALIA VIKA Not Available Start: 08-05-2023 End: 08-05-2023 ambulatory [facility] Work Phone: Start: 08-05-2023 End: 08-05-2023 Patient encounter procedure [facility] Work Phone: Start: 06-24-2023 End: 06-24-2023 ambulatory Kimi Weiss Facility: [facility] Start: 04-23-2023 End: 04-23-2023 ambulatory Kimi eWiss Facility: [facility] Start: 04-22-2023 End: 04-22-2023 ambulatory Charles Claros Other [employer] Other Start: 04-22-2023 Telephone encounter Charles HOLT [facility] [place] Start: 04-08-2023 ambulatory Kimi Weiss Facili ty: [facility] Start: 04-01-2023 End: 04-01-2023 ambulatory Charles Brisenoer Other [employer] Other Start: 04-01-2023 Office outpatient vi sit 25 minutes Charles Claros [facility] [place] Start: 04-01-2023 Telephone encounter Charles HOLT G [facility] Start: 01-21-2023 End: 01-21-2023 ambulatory Charles Brisenoer Other [employer] Other Start: 01-21-2023 Office outpatient vi sit 25 minutes Charles Claros [facility] [place] Start: 01-21-2023 Telephone encounter Charles HOLT G [facility] Start: 10-06-2022 End: 10-06-2022 ambulatory Charles Brisenoer Other [employer] Other Start: 10-06-2022 Office outpatient vi sit 25 minutes Charles Brisenoer [facility] [place] Start: 10-06-2022 Telephone encounter Charles HOLT G [facility] Start: 07-23-2022 ambulatory Bee Blackmon Facility :[id number] Start: 06-01-2022 End: 06-01-2022 ambulatory Charles Claros Other [employer] Other Start: 06-01-2022 Office outpatient vi sit 25 minutes Charles Claros [facility] [place] Start: 06-01-2022 Telephone encounter Charles Burnham [facility] [place] Start: 05-13-2022 AUDIT Kimi Rasmussen on Work Phone: VP-Hffwjnksoxxd-Vzulfmw e Work Phone: Start: 05-12-[address] Kimi Weiss Facility:[id number] Start: 04-27-2022 Office outpatient vi sit 40 minutes Kimi Weiss Work Phone: JI-Bkfjfgevrved-Ymtdhcz e Work Phone: Start: 04-14-2022 End: 04-14-[address] DANIEL BENITEZ Facility:[facility]1 Start: 02-18-2022 End: 02-18-2022 ambulatory Charles Claros Other [employer] Other Start: 02-18-2022 Office outpatient vi sit 25 minutes Charles Claros [facility] [place] Start: 02-18-2022 Telephone encounter Charles Burnham [facility] Start: 12-15-2021 End: 12-15-2021 ambulatory Charles Claros Other [employer] Other Start: 12-15-2021 Office outpatient vi sit 25 minutes Charles Claros [facility] [place] Start: 09-29-2021 Office outpatient ne w 30 minutes Kimi Weiss Work Phone: UM-Guchvalnufpw-Qkzvbfx e Work Phone: Start: 09-16-2021 Office outpatient vi sit 25 minutes Kimi Weiss Work Phone: TX-Ewbojha-Cclrq [facility] [address] Work Phone: Start: 07-28-2021 Office outpatient vi sit 15 minutes Kmii Weiss Work Phone: SM-Gtlggdljuzly-Faypybs e Work Phone: Start: 07-23-2021 End: 07-23-2021 ambulatory Charles Brisenodelma Other [employer] Other Start: 07-23-2021 Office outpatient vi sit 25 minutes Charles Claros [facility] [place] Start: 06-18-2021 Office outpatient vi sit 25 minutes Kimi Weiss Work Phone: AA-Pqttind-Avwoa [facility] [address] Work Phone: Start: 06-03-2021 PAYAM, Provider : Shobha Gomez, Status: Pen, Time: 8:30 AM Kimi Weiss Work Phone: OS-Bbaduig-Dienb [facility] [address] Work Phone: Start: 06-02-2021 AUDIT Kimi Rasmussen on Work Phone: CA-Tjjjbck-Vgowr [facility] [address] Work Phone: Start: 04-23-2021 Current tobacco non- user cad cap copd pv dm Kimi Weiss Work Phone: CK-Fnwqwtw-Fbcnz [facility] [address] Work Phone: Start: 04-02-2021 End: 04-02-2021 ambulatory Charles Brisenodelma Other [employer] Other Start: 04-02-2021 Office outpatient vi sit 25 minutes Charles Claros [facility] [place] Start: 03-10-2021 Office outpatient vi sit 15 minutes Kimi Weiss Work Phone: CA-Dtqytzqnhjqw-Qwrgrpi e Work Phone: Start: 02-05-2021 Office outpatient vi sit 25 minutes Charles Claros [facility] [place] Start: 12-09-2020 Postop follow up vis it related to original px Kimi Weiss Work Phone: BM-Jsxbkfabgngk-Mwvdclh e Work Phone: Start: 11-26-2020 End: 11-27-2020 Evaluation and management of inpatient Bee Viramontes OR 33 Start: 10-31-2020 Phys/qhp telephone evaluation 21-30 min Referring Provider Unknown WY-Dcnykijstynq-Oewgml Work Phone: Procedures Date Procedure Procedure Detail [...] Screening for malign ant neoplasm of colon [facility] Start: 07-11-2024 End: 07-11-2024 Patient encounter procedure 07/11/2024 9:40 AM EDT Office Visit [facility] [address] [place] [address] Karon Rodriguez NP [address] [place], [place] [id number] [facility] Start: 03-27-2024 End: 03-27-2024 Patient encounter procedure 03/27/2024 9:40 AM EST [facility] [address] [place] [address] Karon Rodriguez NP [address] [place], [place] [id number] Arrived [facility] Comment on above: Arrived Start: 12-19-2023 Influenza vaccination Influenza Vacc ine (#1) [facility] Start: 09-15-2023 X-ray of lumbar spin e, four views XR lumbar spine AP/LAT/FLX/EXT [facility] Start: 09-15-2023 XR Lumbar spine 4 Views [facility] Start: 09-15-2023 Plain X-ray of right hip XR hip RT min 2V(w/wo pelvis)* [facility] Start: 09-15-2023 XR Hip - right 2 Views [facility] Start: 09-07-2023 [facility] Start: 06-11-2022 EMG, Provider: [place] [facility] EMG ARAIZA,[id number], Status: Pen, Time: 10:30 AM EMG, Provider: NEURODIAG E[facility]01 EMG ARAIZA,[id number], Status: Pen, Time: 10:30 AM NP-Xxmboacbfffl-Gzlbch ke Work Phone: Start: 05-04-2022 VIRFUVHOME, Provider : Marisol Husain, Status: Pen, Time: 8:45 AM VIRFUVHOME, Provider: Marisol Husain, Status: Pen, Time: 8:45 AM MJ-Azkdluttzzle-Wxtubt ke Work Phone: Start: 01-13-2022 VIRFUVNIKE, Provider : Marisol Husain, Status: Pen, Time: 2:15 PM VIRFUVHOME, Provider: Marisol Husain, Status: Pen, Time: 2:15 PM BV-Dyyddfislryx-Doklkk ke Work Phone: Start: 09-29-2021 FUV, Provider: Bee Blackmon, Status: Pen, Time: 11:30 AM FUV, Provider: Bee Blackmon, Status: Pen, Time: 11:30 AM MX-Vdpomer-Ropaz [facility] Work Phone: Start: 09-16-2021 VIRFUVHOME, Provider : Marisol Husain, Status: Pen, Time: 2:15 PM VIRFUVHOME, Provider: Marisol Husain, Status: Pen, Time: 2:15 PM SL-Mlzyofjczurh-Uimbcm ke Work Phone: Start: 06-18-2021 VIRFUVHOME, Provider : Marisol Husain, Status: Pen, Time: 2:15 PM VIRFUVHOME, Provider: Marisol Husain, Status: Pen, Time: 2:15 PM NN-Pfwluhs-Itips [facility] Work Phone: Start: 04-23-2021 NPV, Provider: Marisol Husain, Status: Pen, Time: 10:00 AM NPV, Provider: Marisol Husain, Status: Pen, Time: 10:00 AM [facility] Work Phone: Start: 03-10-2021 FUV, Provider: Bee Blackmon, Status: Pen, Time: 11:15 AM FUV, Provider: Bee Blackmon, Status: Pen, Time: 11:15 AM HI-Wvlkcdgzdfsh-Klexgf ke Work Phone: Start: 03-10-2021 Patient encounter procedure [facility] [place] Start: 12-16-2020 POV, Provider: Bee Blackmon, Status: Pen, Time: 11:15 AM POV, Provider: Bee Blackmon, Status: Pen, Time: 11:15 AM CQ-Xypyqeblyqwk-Bidbxi Work Phone: Start: 11-26-2020 [facility], Provider: Bee Blackmon, Status: Pen, Time: 8:30 AM [facility], Provider: Bee Blackmon, Status: Pen, Time: 8:30 AM YV-Welknpidvxrv-Neospu Work Phone: Start: 1965 Screening for malign ant neoplasm of colon [facility] Patient Education Know your Meds Felter Non Diagnostic Block [facility] Work Phone: Patient referral [facility] Work Phone: Immunizations Immunization Date Immunization Notes Care Provider Nestor olvera 07-22-2020 Pfizer-BioNTech COVID-19 Vacc 30 MCG/0.3ML Intramuscular Suspension Referring Provider Unknown KG-Cxellxixuaan-Ieqyq a Work Phone: 07-01-2020 Pfizer-BioNTech COVID-19 Vacc 30 MCG/0.3ML Intramuscular Suspension Referring Provider Unknown NI-Dpunogwnqrjd-Dmbus a Work Phone: 01-27-2020 influenza, injectabl e, quadrivalent, preservative free Referring Provider Unknown MM-Nxnesaadyrzt-Mtlov a Work Phone: 01-27-2020 influenza virus vaccine, unspecified formulation Karon Rodriguez NP Work Phone: [facility] 02-13-2019 influenza, injectabl e, quadrivalent, contains preservative Referring Provider Unknown IN-Tpeqqemaruof-Abxdh a Work Phone: 02-21-2018 influenza, injectabl e, quadrivalent, preservative free Referring Provider Unknown FR-Ffkgvlfirxdj-Kqjrz a Work Phone: 01-30-2017 KENALOG - 10 mg Charles weaver Other [employer] Other 01-17-2014 influenza, seasonal, injectable Referring Provider Unknown US-Cywuecgygkbi-Hjcaj a Work Phone: Payers Date Payer Category Payer Self-pay [id number] 2022 Private Health Insurance [facility] [id number] 2022 Unknown [id number] 2.16.840.1.220922.19 1966 Unknown [id number] 2.16.840.1.178611.3.579. 2.1069 1966 Unknown [id number] 2.16.840.1.343404.3.579. 2.593 1966 Unknown [id number] 2.16.840.1.486058.3.579. 2.1068 1966 Unknown [id number] 2.16.840.1.117914.3.579. 2.1245 1966 Unknown [id number] 2.16.840.1.354544.3.579. 2.9 1966 Unknown [id number] 2.16.840.1.581135.3.579. 2.9 1966 Unknown [id number] 2.16.840.1.454674.3.579. 2.1258 1966 Unknown [id number] 2.16.840.1.135818.3.579. 2. 1965 Unknown [id number] 2.16.840.1.907283.3.579. 2. 1965 Unknown [id number] 2.16.840.1.445889.3.579. 2. 1965 Unknown [id number] 2.16.840.1.339067.3.579. 2. 1965 Unknown [id number] 2.16.840.1.587981.3.579. 2. 1965 Unknown [id number] 2.16.840.1.442276.3.579. 2. 1965 Unknown [id number] 2.16.840.1.163634.3.579. 2. 1965 Unknown [id number] 2.16.840.1.009982.3.579. 2. 1965 Unknown [id number] 2.16.840.1.898262.3.579. 2.718 1959 Unknown [id number] 2.16.840.1.695398.19 Unknown Unknown [id number] 2.16.840.1.081723.19 Unknown [id number] Unknown [id number] 2.16.840.1.576148.3.579. 2.531 Unknown [id number] 2.16.840.1.709597.3.579. 2.531 Social History Date Type Detail Facility [facility] Tobacco smoking consumption unknown [facility] Start: 08-08-2023 Non-smoker Non-smoker [facility] Work Phone: Start: 08-08-2023 Sex Assigned At N [employer] Other Start: 02-29-2020 End: 08-08-2023 Tobacco smoking status NHIS Never smoked tobacco (finding) [facility] Start: 1965 Sex Assigned At Male F [facility] Start: 11-30-2023 End: 03-27-2024 Alcoholic beverage intake Lifetime non-drinker (finding) [facility] Start: 1965 Sex assigned at Not on file N [facility] Medical Equipment Procedure Code Equipment Code Equipment Origin al Text Equipment Identifier Dates USE DIRECTED TO TEST BLOOD SUGAR EVERY DAY Start: 02-07-2024 Goals Date Patient Goal Desired Activity /State Functional Status Date Assessment Result Facility Functional observable [facility] Mental Status Date Assessment Result Facility 11-26-2020 Cognitive functi ons [id number] [facility] Clinical Notes 03-10-2018 to 03-27-2024 Karon Rodriguez NP - 03/27/2024 9:40 AM EST Note Date & Type Note Facility 03-27-2024 Note - From: Whitney Jordan RN ([facility] ([facility] To: Mariah Machado CNP; Sent: 03/27/2024 07:29:10 EST Subject: FW: Medication Management Due Date/Time: 03/27/2024 08:58:00 EST Caller Name: LYLY QUINN; Caller Number: , M From: [facility] #[id number] To: Kimi Weiss DO Sent: March 25, 2024 7:58:45 AM FINISH PHOTOGRAPHER Subject: Medication Management Due: March 26, 2024 12:30:42 AM FINISH PHOTOGRAPHER On Hold Pending Signature Dispensed Drug: ONE [...] 0 Substitutions Allowed Notes from Pharmacy: Submitted: Order:!-[facility] Request. (ONE TOUCH VERIO FLEX BG MONITOR) See Instructions USE DIRECTED DAILY Qty: 1 EA Days Supply: 30 Refills: 0 Substitutions Allowed Route To Pharmacy [facility] #[id number] Signed by Mariah Machado APRN, CNP 03/27/2024 10:48:00 EST Not Approved: New Rx to follow !-[facility] Request. (ONE TOUCH VERIO FLEX BG MONITOR) USE DIRECTED DAILY Qty: 1 EA Days Supply: 30 Refills: 0 Substitutions Allowed Route To [facility][id number] Signed by Mariah Machado APRN, CNP From: Mariah Machado APRN, CNP To: [facility] #[id number] Sent: 03/27/2024 10:48:58 EST Subject: FW: Medication [...] Refills: 1 Substitutions Allowed [id number] Signed by Mariah Machado APRN, CNP Approved with modifications: fenofibrate (FENOFIBRATE 48MG TABLETS) TAKE 1 TABLET BY MOUTH DAILY Qty: 90 tab(s) Days Supply: 90 Refills: 1 Substitutions Allowed Route To Pharmacy [facility] #[id number] Signed by Mariah Machado APRN, CNP Approved with modifications: rivaroxaban (XARELTO 20MG TABLETS) TAKE 1 TABLET BY MOUTH DAILY Qty: 90 tab(s) Days Supply: 90 Refills: 1 Substitutions [id number] Signed by Mariah Machado APRN, CNP [facility] 03-27-2024 History of Present illness Narrative [...] a new pain management provider at the [facility] soon. He denies any further concerns [...] headache syndrome 04/22/2011 DVT (deep venous thrombosis) ([facility]) Encounter for long-term (current) drug use 09/10/2011 Pulmonary embolism ([facility]) Past Surgical History: Procedure Laterality Date BACK [...] wrist extensors , wrist flexor , and gear keeper strength 5/5. LUE strength deltoid , biceps , triceps , wrist extensors , wrist flexor , and gear keeper strength 5/5. RLE strength illopsoas, quadriceps, tibialis [...] knee reflex 0. Brooke's sign negative Coordination: Iiuhey-vi-ruzn testing normal. Rapid alternating movements are normal Gait: Ambulates with a cane, antalgic gait. Difficulty raising from a seated position. Review and summary of old records: MRI of the brain with and without contrast at [facility] on 02/16/23: No acute intracranial [...] of the lumbar spine w/o contrast at [facility] () on 05/12/22: Status post interbody [...] significant. EMG of the BLE at [facility] on 11/09/19: There are findings consistent with [...] not intractable (CMS/HCC) See above. Essential hypertension (CMS/[facility]) PLAN: - Follow closely with primary care [...] All questions answered. documented in this encounter [facility] 03-20-2024 Note - From: Whitney Jordan RN ([facility] ([facility])) To: Mariah Machado CNP; Sent: 03/20/2024 07:25:53 EST Subject: FW: Medication Management Due Date/Time: 03/20/2024 03:27:00 EST Caller Name: LYLY QUINN; Caller Number: Alexander , From: [facility] #[id number] To: Kimi Weiss DO Sent: March 18, 2024 2:27:30 AM FINISH PHOTOGRAPHER Subject: Medication Management Due: March 19, 2024 1:11:06 AM FINISH PHOTOGRAPHER On Hold Pending Signature Dispensed Drug: DULoxetine [...] 0 Substitutions Allowed Notes from Pharmacy: Submitted: Order:!-[facility] Request. (ONE TOUCH VERIO FLEX BG MONITOR) See Instructions USE DIRECTED DAILY Qty: 1 EA Days Supply: 30 Refills: 0 Substitutions Allowed Route To Pharmacy - [facility] #[id number] Signed by Mariah Machado APRN, CNP 03/20/2024 09:22:00 EST Not Approved: New Rx to follow [facility] (ONE TOUCH VERIO FLEX BG MONITOR) USE DIRECTED DAILY Qty: 1 EA Days Supply: 30 Refills: 0 Substitutions Allowed Route To [facility] #[id number] Signed by Mariah Machado APRN, CNP From: Mariah Machado APRN, CNP To: [facility] #[id number] Sent: 03/20/2024 09:23:45 EST Subject: FW: Medication [...] 90 Refills: 0 Substitutions Allowed Route To [facility] #[id number] Signed by Mariah Machado APRN, CNP Approved with modifications: lisinopril (LISINOPRIL 20MG TABLETS) TAKE 1 TABLET BY MOUTH DAILY Qty: 90 tab(s) Days Supply: 90 Refills: 0 Substitutions Allowed Route To [facility] #[id number] Signed by Mariah Machado APRN, CNP [facility] 02-08-2024 Note - From: Whitney Jordan RN ([facility] ([facility])) To: Kimi Weiss DO; Sent: 02/08/2024 08:11:19 EDT Subject: FW: Medication Management Due Date/Time: 02/08/2024 17:02:00 EDT Caller Name: LYLY QUNIN; Caller Number: Alexander , Oral From: [facility] #[id number] To: Kimi Weiss DO Sent: February 07, 2024 4:02:35 PM CDT Subject: Medication Management Due: February 08, 2024 12:04:07 AM CDT On Hold Pending Signature Dispensed Drug: metFORMIN (metFORMIN 500 mg oral tablet), TAKE 1 TABLET BY MOUTH TWICE DAILY Quantity: 180 tab(s) Days Supply: 90 Refills: 0 Substitutions Allowed Notes from Pharmacy: Patient requests 90 days supply From: Kimi Weiss DO To: [facility] #[id number] Sent: 02/08/2024 09:31:55 EDT Subject: FW: Medication Management Submitted: Complete:metFORMIN (metFORMIN 500 mg oral tablet) Signed by Kimi Weiss DO 02/08/2024 09:31:00 EDT Approved metFORMIN (METFORMIN 500MG TABLETS) TAKE 1 TABLET BY MOUTH TWICE DAILY Qty: 180 tab(s) Days Supply: 90 Refills: 0 Substitutions Allowed Route To Pharmacy - [facility] #[id number] Note from Pharmacy: Patient requests 90 days supply [facility] 09-07-2023 Procedure note [facility] 08-04-2023 Note - From: Erica Espinoza ([facility] ([facility])) To: Kimi Weiss DO; Sent: 07/30/2023 09:07:59 EDT Subject: FW: Medication Management Due Date/Time: 07/30/2023 17:37:00 EDT Caller Name: LYLY QUINN; Caller Number: Alexander , Oral Lisinopril 30 mg was refilled last month on 06/24/23 for a 90 day supply with 3 refills. From: [facility] #[id number] To: Kimi Weiss DO Sent: July 29, 2023 4:37:37 PM CDT Subject: Medication Management Due: July 30, 2023 1:56:01 AM CDT On Hold Pending Signature Dispensed Drug: lisinopril (lisinopril 10 mg oral tablet), TAKE 1 TABLET BY MOUTH DAILY Quantity: 90 tab(s) Days Supply: 90 Refills: 0 Substitutions Allowed Notes from Pharmacy: From: Kimi Weiss DO To: [facility] #[id number] Sent: 08/04/2023 06:24:31 EDT Subject: FW: Medication Management Submitted: Complete:lisinopril (lisinopril 30 mg oral tablet) Signed by Kimi Weiss DO 08/04/2023 06:24:00 EDT Approved with modifications: lisinopril (LISINOPRIL 10MG TABLETS) TAKE 1 TABLET BY MOUTH DAILY Qty: 90 tab(s) Days Supply: 90 Refills: 3 Substitutions Allowed Route To Pharmacy - [facility] #[id number] [facility] 04-22-2023 Evaluation note Encounter Date Diagnosis Assessment Notes Apr, Lumbar back sprain (ICD-10 - S33.5XXA) [facility] Other 12-26-2023 Note From: Erica Espinoza ([facility] ([facility])) To: Kimi Weiss DO; Sent: 04/13/2023 07:27:37 EST Subject: FW: Medication Management Due Date/Time: 04/13/2023 09:59:00 EST Caller Name: LYLY QUINN; Caller Number: H , Oral From: [facility] #[id number] To: Kimi Weiss DO Sent: April 12, 2023 8:59:30 AM FINISH PHOTOGRAPHER Subject: Medication Management Due: April 13, 2023 12:11:03 AM FINISH PHOTOGRAPHER On Hold Pending Signature Dispensed Drug: fenofibrate [...] from Pharmacy: From: Kimi Weiss DO To: [facility] #[id number] Sent: 04/13/2023 07:31:17 EST Subject: FW: Medication Management Submitted: Complete:rivaroxaban (Xarelto 20 mg oral tablet) Signed by Kimi Weiss DO 04/13/2023 07:31:00 EST Submitted: Complete:fenofibrate (fenofibrate 48 mg oral tablet) Signed by Kimi Weiss DO 04/13/2023 07:31:00 EST Approved with modifications: fenofibrate (FENOFIBRATE 48MG TABLETS) TAKE 1 TABLET BY MOUTH DAILY Qty: 90 tab(s) Days Supply: 90 Refills: 3 Substitutions Allowed Route To [facility] #[id number] Approved with modifications: rivaroxaban (XARELTO 20MG TABLETS) TAKE 1 TABLET BY MOUTH DAILY Qty: 90 tab(s) Days Supply: 90 Refills: 3 Substitutions Allowed Route To [facility][id number] Evaluation note* Encounter Date Diagnosis Assessment Notes Treatment Notes Treatment Clinical Notes Mar, Chronic, continuous use of opioids (ICD-10 - F11.90) [facility] Other 12-14-2023 Evaluation note* Encounter Date Diagnosis [...] note writ ten by Lawanda Yuen RN, Dependency Counselor. Edited and approved by Dr. Charles Claros MD. [facility] Other 10-05-2023 Evaluation note* Encounter Date Diagnosis [...] note writ ten by Doris Weiss LPN, Dependency Counselor. Edited and approved by Dr. Charles Claros MD. [facility] Other 10-05-2023 Evaluation note* Encounter Date Diagnosis Assessment Notes Treatment Notes Treatment Clinical Notes Jan, Lumbar back sprain (ICD-10 - S33.5XXA) [facility] Other 06-20-2023 Evaluation note* Encounter Date Diagnosis [...] to patients condition. Saliva sample performed through [facility] lab today, will await confirmatory results. Sep, Other chronic pain (ICD-10 - G89.29) Sep, Other Above note writ ten by Doris Weiss LPN, Dependency Counselor. Edited and approved by Dr. Charles Claros MD. [facility] Other 06-20-2023 Evaluation note* Encounter Date Diagnosis Assessment Notes Treatment Notes Treatment Clinical Notes Sep, Lumbar back sprain (ICD-10 - S33.5XXA) [facility] Other 02-13-2023 Evaluation note* Encounter Date Diagnosis [...] note writ ten by Dutch Taylor MA, Dependency Counselor. Edited and approved by Dr. Charles Claros MD. [facility] Other 02-13-2023 Evaluation note* Encounter Date Diagnosis Assessment Notes Treatment Notes Treatment Clinical Notes May, Lumbar back sprain (ICD-10 - S33.5XXA) [facility] Other 11-02-2022 Evaluation note* Encounter Date Diagnosis [...] note writ ten by Doris Weiss LPN, Dependency Counselor. Edited and approved by Dr. Charles Claros MD. [facility] Other 11-02-2022 Evaluation note* Encounter Date Diagnosis Assessment Notes Treatment Notes Treatment Clinical Notes Feb, Lumbar back sprain (ICD-10 - S33.5XXA) [facility] Other 08-29-2022 Evaluation note* Encounter Date Diagnosis [...] note writ ten by Doris Weiss LPN, Dependency Counselor. Edited and approved by Dr. Charles Claros MD. [employer] Other 05-31-2022 Chief complaint Narrative - Reported* An interactive audio and video telecommunication system which permits real time communications between the patient (at the originating site) and provider (at the distant site) was utilized to providethis telehealth service. * Verbal consent was requested and obtained from LYLY QUINN on this date, 09/16/2021 02:15 PM , for atelehealth visit. GN-Przeixc-Shizu [employer] [address] Work Phone: 1(445) 191-478004-06-2022 Evaluation note* Encounter Date Diagnosis Assessment Notes [...] note writ ten by Dutch Taylor CMA, Dependency Counselor. Edited and approved by Dr. Charles Claros MD. [employer] Other 03-02-2022 Chief complaint Narrative - Reported* An interactive audio and video telecommunication system which permits real time communications between the patient (at the originating site) and provider (at the distant site) was utilized to providethis telehealth service. * Verbal consent was requested and obtained from LYLY QUINN on this date, 06/18/2021 02:15 PM , for atelehealth visit. AB-Afnvrlf-Ycflq [facility] [address] Work Phone: 1(630) 441-568201-05-2022 Chief complaint Narrative - Reported* An interactive audio and video telecommunication system which permits real time communications between the patient (at the originating site) and provider (at the distant site) was utilized to providethis telehealth service. * Verbal consent was requested and obtained from LYLY QUINN on this date, 04/23/2021 10:00 AM , for atelehealth visit. JJ-Bznedcs-Enoze [facility] [address] Work Phone: [phone] Chief complaint Narrative - Reported* An interactive audio and video telecommunication system which permits real time communications between the patient (at the originating site) and provider (at the distant site) was utilized to providethis telehealth service. * Verbal consent was requested and obtained from LYLY QUINN on this date, 04/23/2021 10:00 AM , for atelehealth visit. FI-Rbyzcjoqzslhnhnz-Cbnze Shefali [facility] Work Phone: 1(563) 614-235412-15-2021 Evaluation note* Encounter Date Diagnosis Assessment Notes [...] note writ ten by Lawanda Yuen CMA, Dependency Counselor. Edited and approved by Dr. Charles Claros MD. [facility] Other 10-20-2021 Evaluation note* Encounter Date Diagnosis [...] note writ ten by Dutch Taylor MA, Dependency Counselor. Edited and approved by Dr. Charles Claros MD. [employer] Other 08-10-2021 NoteSend Summary: Discharge Summary Providers: Provider RoleProvider Name Kimi Alarcon Zachary Note Recipients: Bee Blackmon MD Jackson, Steven P, DO - [phone] [] Discharge: Summary: Admission Date: .26-Nov-2020 10:44:00 [...] visit. Immunizations: Immunizations: 19-Nov-2020 SARS-CoV-2 (COVID-19): Immunizations, [employer] COVID-19 Vacc 30 mcg/0.3ml IM suspension, 01-Jul-2020 [...] Follow-Up Appointment Scheduled Date/Time: 09-Dec-2020 11:15 Location: [address] [place] [address] [address]ICE [address], Phone Number: Office: Sec. [place]) - [phone] Discharge Medications: Home Medication lisinopril 20 mg [...] Dx: acute post-operative pain (more content not included)...[facility]08-10-2021 NotePost Operative Note: PreOp Diagnosis: lumbar stenosis with radiculopathy Post-Procedure Diagnosis: same as preop Procedure: 1. L3-4 XLIF 2. 3. 4. 5. Surgeon: Neymar Resident/Fellow/Other Director Of Event Marketing: Daniela Anesthesia: GETA Estimated Blood Loss (mL): [...] Completion Last Updated: 10-Dec-2020 17:38 by Bee Blackmon)[facility]08-10-2021 NotePreop Checklist: Preop Checklist: Procedure TypeL3-4 lateral lumbar fusion with instrumentation Temperature C36.4 degrees C Temperature F97.5 degrees F Heart Rate92 beats per minute Respiratory Rate16 breath per minute Blood Pressure Imjoshln821 mm/Hg Blood Pressure Edmplinoq15 mm/Hg NPO Ijjqyl09-Cmg-0824 22:00 ID Band Onyes Allergy Bandno known [...] Last Updated: 26-Nov-2020 12:09 by Pat Padilla (BENI)[facility]08-10-2021 NoteHistory & Physical Reviewed: I have reviewed [...] the note. I personally evaluated the patient [id number] Electronic Signatures: Bee Blackmon) (Signed 09-Dec-2020 19:41) Authored: Note Completion Co-Signer: History & Physical Reviewed, ERAS, Consent, Note Completion Kevin Marshall (Resident)) (Signed 26-Nov-2020 05:52) Authored: History & Physical Reviewed, ERAS, Consent, Note Completion Last Updated: 09-Dec-2020 19:41 by Bee Blackmon)[facility]05-05-2021 Evaluation note* Lymphatic: No significant lymphadenopathyNeurological: A&Za9Jfksunuzxjvneagm: Soft, ntndCardiovascular: RRR by peripheral pulsesPsychological: Appropriate mood and behaviorRespiratory/Thorax: Breathing normally on RAHead/Neck: Neck supple, trachea midlineEyes: EOMI, clear scleraSkin: Warm and dry, no rashesMusculoskeletal: L1: SILTL2: SILT Hip flexors 5/5 Right; 5/5 LeftL3: SILT Knee extension 5/5 Right; 5/5 LeftL4: SILT Tib Ant. (Dorsiflexion) 5/5 Right; 5/5 LeftL5: SILT EHL 5/5 Right; 5/2CrvaN8: SILT Planter flexion 5/5 Right; 5/5 LeftConstitutional: Awake/alert/oriented x3, no distress, alert and cooperative [facility]02-01-2020 History of Present illness Narrative* 55-year-old male [...] He was evaluated by another surgeon in [facility], they did recommend surgery however he has a history involving multiple DVTs and pulmonary embolism. After his last operation he was not bridged preoperatively on Lovenox, and he did not receive any anticoagulation until 2 weeks after surgery. Despite having an IVC filter in place he through another pulmonary embolism. He follows up with a data control assistant in [place]. * He is otherwise in good health. [...] 26. I have reached out to his data control assistant to confirm plans for perioperative anticoagulation. He is fully vaccinated for COVID-19. * This note was dictated using speech recognition software and was not corrected for spelling or grammatical errors. GO-Dkrmghikxgoy-Snqtzt Work Phone: 1([phone] 638-826002-01-2020 History of Present illness Narrative* 55-year-old male [...] He was evaluated by another surgeon in [facility], they did recommend surgery however he has a history involving multiple DVTs and pulmonary embolism. After his last operation he was not bridged preoperatively on Lovenox, and he did not receive any anticoagulation until 2 weeks after surgery. Despite having an IVC filter in place he through another pulmonary embolism. He follows up with a data control assistant in [place]. * He is otherwise in good health. [...] 26. I have reached out to his data control assistant to confirm plans for perioperative anticoagulation. He is fully vaccinated for COVID-19. * This note was dictated using speech recognition software and was not corrected for spelling or grammatical errors. WW-Fonhakpqhiaj-Lilwjz Work Phone: 1(169) 343-394501-06-2019 History of Present illness Narrative* Patient is [...] not corrected for spelling or grammatical errors. [facility] Work Phone: 1(400) [phone] History of Present illness Narrative* Patient is [...] not corrected for spelling or grammatical errors. [facility] Work Phone: [phone] History of Present illness Narrative* Patient is [...] not corrected for spelling or grammatical errors. BA-Szwadcwneqfo-Zrecnenr Work Phone: Evaluation note* Diagnosis Onset Date Resolution Status Chronic pain acute Chronic, continuous use of opioids acute Other spondylosis with radiculopathy, lumbar region acute [facility] Work Phone: Evaluation note* Diagnosis Onset Date Resolution Status Chronic pain acute Chronic, continuous use of opioids acute Other spondylosis with radiculopathy, lumbar region acute Chronic pain acute Chronic, continuous use of opioids acute Other spondylosis with radiculopathy, lumbar region acute [facility] Work Phone: Evaluation note* Diagnosis Chronic cluster [...] dr) Hospitalization History pulmonary embolism 2 alfa [employer] Other History of Present illness Narrative* Patient [...] not corrected for spelling or grammatical errors LT-Rbkkalrovctt-Ogcqhfct Work Phone: History of Present illness Narrative* [...] * Lives with: Spouse * 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[employer] * Sleep patterns: 8hrs YANNI on CPAP * Alcohol: 1-2 on the weekends * Tobacco: None * Recreational Drugs: None * Exercise: Therapy for back 2 x weekly BB-Nkmdzzh-Rwmou [facility] [address] Work Phone: History of Present [...] and V8 * L - yogurt, granola (latvian yogurt, 1/4 cup granola), cream of corn 1 cup * Snack - pop corner 100 calorie bag * D - veggie burger with andorran cheese & onion (2 burgers) low calorie [...] * Lives with: Spouse * 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 NH-Smphvhegwzvt-Klxwctwo Work Phone: History of Present illness Narrative* [...] Hx: * Lives with: Spouse * Employment: makes[employer] * Sleep patterns: 8hrs YANNI on CPAP * Alcohol: 1-2 on the weekends * Tobacco: None * Recreational Drugs: None * Exercise: Therapy for back 2 x weekly YN-Qejanbrztxolykom-Nichc Shefali GONZALEZ Work Phone: History of Present illness Narrative* 56 year old M presenting for weight management follow up. * Continued topiramate as adjunct to diet/exercise last visit. 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 CI-Tmkgmmkvjsbr-Snffuoce Work Phone: History of Present illness Narrative* [...] is going to do this in the [facility], we will have them push the results to PACS. He shouldcall the office for the results of the MRI. * In the meantime I am going to put him on some prednisone. * I will speak with him after the MRI is complete. * This note was dictated using speech recognition software and was not corrected for spelling or grammatical errors. PI-Ulaavtgkovzw-Dyxaafav Work Phone: Hospital Discharge instructions* Activity:activity with [...] 11:15Location: [address], [phone] Number: Office: [place] Sec.) - [phone]: Please Call Tara Gonzalez RN at [phone] For Any Post-Op Questions [facility] Reason for Referral: L3-4 fusion [facility] Chief Complaint * A telephone visit (audio [...] section and content) DATE CREATED AUTHOR 09/29/2021 [facility] DATE CREATED AUTHOR AUTHOR'S ORGANIZ ATION 05/01/2022 [facility] DATE CREATED AUTHOR AUTHOR'S ORGANIZ ATION 05/05/2022 [facility] DATE CREATED AUTHOR AUTHOR'S ORGANIZ ATION 05/16/2022 [facility] DATE CREATED AUTHOR AUTHOR'S ORGANIZ ATION 06/24/2022 [facility] DATE CREATED AUTHOR AUTHOR'S ORGANIZ ATION 07/28/2022 [facility] DATE CREATED AUTHOR AUTHOR'S ORGANIZ ATION 09/16/2023 [facility] DATE CREATED AUTHOR AUTHOR'S ORGANIZ ATION 01/17/2024 [facility] DATE CREATED AUTHOR AUTHOR'S ORGANIZ ATION 03/30/2024 [facility] EPIC DATE CREATED AUTHOR AUTHOR'S ORGANIZ ATION [facility]20[facility] (unrecogniz ed section [...] Provider Active Sta rt: September 15, 2023 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 [employer] [facility]. provides no warranty or guarantee of the accuracy or completeness of information in this document.
[2024-04-06] MEDS: MORPHINE SULFATE 2 MG/ML SYRINGE IV ×2 (17:37→22:08)
[2024-04-06] MEDS: CYCLOBENZAPRINE HCL 10 MG TABLET PO (19:44)
[2024-04-06] MEDS: ACETAMINOPHEN 500 MG TABLET 1000 MG PO (19:44)
[2024-04-06 21:17] LABS: Glucometer 219 mg/dL (74-106)
[2024-04-06] MEDS: INSULIN ASPART 300 UNIT/3 ML PEN SUBQ (21:19)
[2024-04-06] MEDS: BUDESONIDE 0.5 MG/2 ML AMPULE NEB IH (22:41)
[2024-04-07] VITALS (24 sets, daily range): BP systolic 123–154; BP diastolic 76–98; PULSE 85–116; TEMP 36.4–36.8; O2SAT 94–99
--- NOTE | 2024-04-07 | OP_ITS ---
OP Note ? OPERATION DATE: ??04/07/2024 ? LEXISCAN EKG STRESS TEST ? INDICATION FOR THE TEST:? Chest pain and shortness of breath. ? The procedure was discussed with the patient in detail, including risks and benefits, and he was agreeable to proceed. ? Patient?s resting heart rate 90 beats per minute, resting blood pressure 138/96 mm/Hg.? He received 04 mg of IV Lexiscan injection and he was monitored for 7 minutes.? Max heart rate was 118 beats per minute, which represents 72% of age predicted maximum heart rate and maximal blood pressure 138/96 mm/Hg.? ? The patient did not experience any chest, neck, jaw or arm discomfort or shortness of breath during the test.? ? Resting EKG showed normal sinus rhythm, heart rate 86 beats per minute, incomplete right bundle branch block, no T or ST changes, overall normal EKG. ? EKG throughout the test did not show any significant T or ST changes or any arrhythmias.? ? CONCLUSION: 1.? Negative Lexiscan EKG stress test for ischemia.? 2.? The nuclear images report will be dictated separately by Radiology. ? ? Lin Mandel M.D., [facility]
[2024-04-07] MEDS: IPRATROPIUM/ALBUTEROL SULFATE 3 ML AMPUL.NEB IH ×4 (05:37→22:05)
[2024-04-07 06:03] LABS: Basophils Percent Auto 0.4 % (0.2-2.0); Eosinophils Percent Auto 0.2 % (0.9-7.0); Hematocrit 43.5 % (42.0-54.0); Immature Granulocytes Pct Auto 1.8 % (0.0-0.5); Lymphocytes Absolute Auto 3.1 10^3/uL (1.2-3.8); Lymphocytes Percent Auto 28.6 % (20.5-60.0); Mean Corpuscular HGB Conc 34.5 g/dL (29.9-35.2); Mean Corpuscular Hemoglobin 30.8 pg (25.9-34.0); Mean Corpuscular Volume 89.3 fL (80.0-94.0); Mean Platelet Volume 9.1 fL (9.5-13.5); Monocytes Percent Auto 9.4 % (1.7-12.0); Neutrophils Absolute Auto 6.5 10^3/uL (1.4-6.5); Neutrophils Percent Auto 59.6 % (43.0-75.0); Platelet Count 327 10^3/uL (150-450); Red Blood Count 4.87 10^6/uL (4.70-6.10); Red Cell Distribution Width 12.1 % (11.0-15.0); White Blood Count 10.8 10^3/uL (4.0-11.0)
[2024-04-07 06:34] LABS: Alanine Aminotransferase 32 U/L (16-63); Albumin Globulin Ratio 0.8; Albumin Level 3.3 g/dL (3.4-5.0); Alkaline Phosphatase 85 U/L (46-116); Anion Gap 13.8; Aspartate Amino Transferase 11 U/L (15-37); BUN Creatinine Ratio 15.7; Bilirubin Total 0.4 mg/dL (0.2-1.0); Calcium 9.8 mg/dL (8.5-10.1); Carbon Dioxide 24.7 mmol/L (21.0-32.0); Chloride 103 mmol/L (98-107); Chol HDL Ratio 3.2; Cholesterol 164 mg/dL (<=200); Estimated GFR (African America >60 (>=60 mL/min/1.73m^2); Estimated GFR (Non-African Ame >60 (>=60 mL/min/1.73m^2); Globulin 4.2 g/dL; Glucose 225 mg/dL (74-106); HDL Cholesterol 51 mg/dL (40-60); LDL Cholesterol Calculated 89.4 mg/dL; Potassium 4.5 mmol/L (3.5-5.1); Sodium 137 mmol/L (136-145); Thyroid Stimulating Hormone 0.611 uIU/mL (0.358-3.740); Total Protein 7.5 g/dL (6.4-8.2); Triglycerides 118 mg/dL (<=150); Troponin I High Sensitivity 5.4 pg/mL (4.0-76.1); VLDL CHOLESTEROL 23.6 mg/dL
--- NOTE | 2024-04-07 07:00 | NM_ITS ---
Patient Name: LYLY KIDD MR#: [id number] : 1965 Exam Date: 04/07/2024 Ordering Doctor: Monica Farooq . RADIOLOGY REPORT PROCEDURE: NM RADHA PERF SPECT REST STR COMPARISON: None. INDICATIONS: chest pain, shortness of breath, DM, HLD, Hx PE's TECHNIQUE: Exam Description: Stress/Rest one day protocol gated SPECT Rest Imagin.8 mCi Tc-99m Cardiolite IV on 04/07/2024 Stress Imaging 29.5 mCi Tc-99m Cardiolite IV on 04/07/2024 Exercise Protocol: 0.4 mg Lexiscan given IV Heart Rate (bpm): Rest: 90 Max: 118 PMHR: 72 Blood Pressure: Rest: 138/96 Max: 138/96 Symptoms: Rest and peak stress ECG findings were pending and the exercise portion of the study was pending per attending physician Dr. HONEYCUTT . For more details please see separate cardiac stress test report. FINDINGS: QUALITY OF STUDY: Good. PERFUSION DEFECT: None. LOCATION: Basal anterior. Mid-anterior. SIZE: Small (1-2 segments). SEVERITY: Moderate. TYPE: Persistent. WALL MOTION: Normal. LV SIZE: Normal. 82 mL. TID / TCD: None; 0.9 LVEF: Normal. Calculated EF 66%. SUMMARY: Myocardial perfusion imaging study has ABNORMAL findings. CONCLUSION: 1. Small area of moderately decreased uptake in the anterior wall, LAD distribution with no redistribution to suggest an area of reversible ischemia 2. Pending exercise test results Dictated by: Flakito Avalos MD on 04/07/2024 at 12:38 Approved by: Flakito Avalos MD on 04/07/2024 at 12:39
--- NOTE | 2024-04-07 08:21 | XR_ITS ---
The [address] [address] Patient Name: LYLY KIDD MRN: [id number] date: 1965 Sex: M Assigned Patient Location: [place] Current Patient Location: [place] Accession/Order Number: [id number] Exam Date: 04/07/2024 09:20 Report Date: 04/07/2024 09:50 At the request of: FAMILIA LACY Procedure: XR chest 1V EXAM: XR chest 1V HISTORY: shortness of breath COMPARISON: 04/06/2024 TECHNIQUE: AP portable FINDINGS: LUNGS: No significant pulmonary parenchymal abnormalities. VASCULATURE: No increased pulmonary vasculature. PLEURA: No pneumothorax, effusion, or pleural thickening. CARDIAC: No cardiomegaly or cardiac silhouette abnormality. MEDIASTINUM: No visible mass or adenopathy. BONES: No fracture or visible bone lesion. OTHER: Negative. XR/XR chest 1V IMPRESSION: No acute cardiopulmonary process Electronically authenticated by: DANIEL BENITEZ Date: 04/07/2024 09:50
--- NOTE | 2024-04-07 08:46 | PM.PN ---
Progress Note: Subjective Subjective Interval history: Patient said he felt better this morning, less chest pain and shortness of breath. He had his Lexiscan stress test this morning and came back from it and started having some left sided chest pain. No EKG changes per stress test. His Vitals showed slightly elevated BP 150/80's but normal pulse ox 98% room air. Patient is not short of breath with talking or at rest. I have discussed normal labs with patient and . Awaiting results of stress test and Echo. Exam Narrative Exam Narrative: General: Patient is alert, and oriented to person, place and time with normal affect, proper hygiene Skin: no visible rashes, or ulcers Head: atraumatic, acephalic Eyes: PERRLA, no nystagmus present, conjunctiva clear, no scleral icterus Ears: normal gross auditory acuity Heart: Normal rate and rhythm, no murmurs/rubs/gallops Lungs: no audible wheezes, crackles and normal breath sounds all lung macdonald Abdomen: Normal audible bowel sounds, no distension, No palpable masses, no organomegaly, no rebound/guarding/ or rigidity Musculoskeletal: no swelling bilateral lower extremities Neuro: CN II-X grossly intact Constitutional Vital Signs, click to edit/add: Last Vital Signs Temp 97.5 F L 04/07/24 07:36 Pulse 93 H 04/07/24 07:50 Resp 18 04/07/24 07:36 BP 124/86 04/07/24 07:36 Pulse Ox 97 04/07/24 07:36 O2 Del Method Room Air 04/07/24 07:36 Progress Note: Objective Labs Labs: Short CBC 04/06/24 04/07/24 Range/Units 13:16 05:34 WBC 11.2 H 10.8 (4.0-11.0) 10^3/uL Hgb 16.6 15.0 (14.0-18.0) g/dL Hct 46.9 43.5 (42.0-54.0) % Plt Count 320 327 (150-450) 10^3/uL BMP 04/06/24 04/07/24 13:16 05:34 Sodium 136 137 Potassium 4.6 4.5 Chloride 101 103 Carbon Dioxide 24.8 24.7 BUN 16.0 16.0 Creatinine 1.11 1.02 Glucose 152 H 225 H Calcium 10.4 H 9.8 Liver Function 12/19/24 12/20/24 Range/Units 13:16 05:34 Total Bilirubin 0.5 0.4 (0.2-1.0) mg/dL AST 19 11 L (15-37) U/L ALT 42 32 (16-63) U/L Alkaline Phosphatase 100 85 (46-116) U/L Albumin 3.9 3.3 L (3.4-5.0) g/dL Progress Note: A&P Assessment and Plan (1) Chest pain: Assessment and Plan: troponin x 3 negative, SABRINA score 3, no EKG changes, normal D-dimer. Most likely this is pleuritic chest pain but awaiting results of Lexiscan stress test. Cardiology consult, Will optimize his blood pressure by adding coreg 3.125mg BID to lisinopril. Pro-BNP normal, Echocardiogram pending Qualifiers: Chest pain type: unspecified Qualified Code(s): R07.9 - Chest pain, unspecified (2) Community acquired pneumonia: Assessment and Plan: Patient was treated for this on 04/02/24, oxygen saturations are good on room air. PRN neb treatments, holding on steroids as completed medrol pack, continue levaquin. Qualifiers: Laterality: right Lung location: lower lobe of lung Qualified Code(s): J18.9 - Pneumonia, unspecified organism (3) History of pulmonary embolism: Assessment and Plan: continue Xarelto, normal Ddimer and recent normal CTA chest (4) Primary hypertension: Assessment and Plan: continue lisinopril add coreg (5) Hyperlipidemia associated with type 2 diabetes mellitus: Assessment and Plan: continue fenofibrate, lipids checked this morning and fair control (6) Non-insulin dependent type 2 diabetes mellitus: Assessment and Plan: hold metformin, SSI as needed (7) Migraine headache: Assessment and Plan: takes emgality. Qualifiers: Intractability: not intractable Migraine type: unspecified Status migrainosus presence: without status migrainosus Qualified Code(s): G43.909 - Migraine, unspecified, not intractable, without status migrainosus (8) Depression: Assessment and Plan: continue duloxetine, will try a dose of ativan 0.25mg x 1 to see if helps symptoms. Qualifiers: Depression Type: unspecified Qualified Code(s): F32.A - Depression, unspecified Plan Patient is a full code continue xarelto Patient is in observation status, check ECHO and lexiscan stress test, awaiting results, Cardiology consult. Optimize BP.
--- NOTE | 2024-04-07 10:00 | CM.NOTE ---
Rounds made with Dr. Farooq, pt downstairs for stress test.
[2024-04-07] MEDS: REGADENOSON 0.4 MG/5 ML SYRINGE IV (10:17)
[2024-04-07] MEDS: LISINOPRIL 20 MG TABLET PO (10:27)
[2024-04-07] MEDS: DULOXETINE HCL 60 MG CAPSULE.DR PO (10:27)
[2024-04-07] MEDS: FENOFIBRATE 54 MG TABLET PO (10:27)
--- NOTE | 2024-04-07 10:29 | PC.NURSE ---
Nursing Note Cardiac Stress Test Reviewed: Medication, allergies and patient history reviewed. Stress Test: [ x] Patient tolerated stress test well. [ ] Patient unable to tolerate walking on treadmill. Switched to Lexiscan stress test. [ x] No chest pain noted per patient [ ] Chest pain that resolved prior to leaving stress lab. [x ] No dyspnea noted. [ ] Dyspnea that resolved prior to leaving stress lab. [ x] Patient left stress lab asymptomatic and hemodynamically stable. [ ] Patient taken to the Emergency Room due to non-resolving symptoms following stress test. [ ] Patient achieved target heart rate. [ ] Patient unable to achieve target heart rate. [ ] Aminophylline administered as reversal agent to Lexiscan (Regadenoson). [ ] Nitro administered. Nursing Comments:Pt had Lexiscan test done. Tolerated well. Only complaint was some abdominal pain that went away within 2 minutes after Lexiscan was injected. Pt was taken back to [place] room with no symptoms. Pt did have some dizziness when he sat up but was allowed to sit on edge of bed and felt better prior to standing into wheelchair.
[2024-04-07 10:58] LABS: Glucometer 173 mg/dL (74-106)
[2024-04-07] MEDS: BUDESONIDE 0.5 MG/2 ML AMPULE NEB IH ×2 (10:58→22:05)
[2024-04-07] MEDS: INSULIN ASPART 300 UNIT/3 ML PEN SUBQ ×3 (11:03→21:21)
--- NOTE | 2024-04-07 11:27 | ECG_ITS ---
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
--- NOTE | 2024-04-07 11:28 | PC.NURSE ---
Destinee from [employer] called this residential mortgage underwriter and states that patient started c/o CP 10/26, increased HR and BP. She states that she has about 10 minutes left with him. She states that they had previously done an EKG and didn't see anything on his testing but wanted to inform me of this issue. 2 minutes later, BENI Atkins, called and states that he took info over to cardiology office and informed them of patient's increased CP and HR and SOB. They ordered a STAT EKG which is being performed while he is downstairs with [employer]. Spring [employer] entered order.
[2024-04-07] MEDS: LORAZEPAM 0.5 MG TABLET 0.25 MG PO (12:09)
--- NOTE | 2024-04-07 16:29 | CA_ITS ---
Patient Name: LYLY KIDD MR#: [id number] : 1965 Exam Date: 04/07/2024 Ordering Doctor: FAMILIA LACY . ECHOCARDIOGRAM REPORT PROCEDURE: CA ECHO DOPPLER COMPLETE INDICATIONS: history of PE's, Shortness of breast and chest pain COMPARISON: None. DESCRIPTION: COMPLETE ECHOCARDIOGRAM Real-time transthoracic echocardiography with 2D, M-mode, spectral and color flow Doppler performed. QUALITY: Technical quality was adequate. LEFT VENTRICLE: Normal chamber size. Thickened septal wall. LV EF: Global left ventricular systolic function is difficult to assess but appears preserved; visually estimated ejection fraction is 60 to 65%. Unable to assess regional wall motion abnormalities. DIASTOLIC: Normal diastolic function. ATRIAL SEPTUM: Inadequately seen. LEFT ATRIUM: Normal chamber size. RIGHT ATRIUM: Normal chamber size. RIGHT VENTRICLE: Poorly seen; appears normal in size and systolic function. TRICUSPID VALVE: Normal mobility and thickness. No stenosis with trivial regurgitation. No evidence of pulmonary hypertension. RVSP 21 mmHg MITRAL VALVE: Normal mobility and thickness. No evidence of mitral valve stenosis. There is no mitral annular calcification. No mitral regurgitation. AORTIC VALVE: Normal trileaflet appearance. No visible sclerosis. Normal leaflet mobility. No evidence of aortic valve stenosis. No aortic regurgitation. AORTIC ROOT: Normal diameter and appearance. PULMONIC VALVE: Normal thickness and mobility. No stenosis. No regurgitation. PERICARDIUM: No evidence of pericardial effusion. IVC: Not well visualized. CONCLUSION: 1. Global left ventricular systolic function is difficult to assess but appears preserved; visually estimated ejection fraction is 60 to 65% 2. The right ventricle is poorly seen but appears normal in size and systolic function 3. The left atrium is normal in size 4. Normal diastolic function 5. No significant valvular abnormalities Adult Echocardiography Procedure Report Left Ventricle LVEDD (3.7 - 5.6 cm): 4.27 cm LVESD (2.2 - 4.0 cm): 2.89 cm LVIVS thickness (0.6 - 1.2 cm): 1.43 cm LVPW thickness (0.5 - 1.0 cm): 1.11 cm e': 0.09 m/s E - e': 5.70 LVOT Max Gradient: 1.60 mm[Hg] LVOT Area (cm2): 0.63 m/s Peak Velocity (LVOT): 0.63 m/s LVOT Diameter 2.59 cm Left Atrium LA Volume Index (2D A2C): 21.60 ml/m2 Left Atrium Systolic Dimension: 3.66 cm Mitral Valve MV E to A Ratio: 0.82 Mitral Valve A-Wave Peak Velocity: 0.59 m/s Mitral Valve E-Wave Peak Velocity: 0.49 m/s Right Ventricle Aorta AO Root Diam: 3.79 cm Ascending Ao Diam: 3.62 cm Aortic Valve AoV Area (Peak Osbaldo): 5.19 cm2, 5.19 cm2 Peak Velocity(Antegrade Flow): 0.64 m/s Peak Gradient(Antegrade Flow): 1.64 mm[Hg] Tricuspid Valve Peak Velocity (Regurgitant Flow): 2.10 m/s Pulmonic Valve Mean Gradient: 1.28 mm[Hg] Mean Velocity: 0.53 m/s Peak Velocity: 0.77 m/s, 0.67 m/s Peak Gradient: 1.80 mm[Hg], 2.39 mm[Hg] Right Atrium Right Atrium Systolic Pressure: 32.63 ml, 32.63 ml Dictated by: Sammie Argueta M.D. on 04/07/2024 at 14:10 Approved by: Sammie Argueta M.D. on 04/07/2024 at 14:14
[2024-04-07] MEDS: RIVAROXABAN 10 MG TABLET 20 MG PO (16:38)
[2024-04-07] MEDS: LEVOFLOXACIN IN DEXTROSE 5 % 750 MG/150 ML PREMIX 100 MG IV (16:38)
[2024-04-07 16:49] LABS: Glucometer 184 mg/dL (74-106)
--- NOTE | 2024-04-07 18:13 | P.CACN_ITS ---
History of Present Illness History of Present Illness Consult date: 04/07/24 Requesting physician: Monica Farooq Consult reason: chest pain Chief complaint: CHEST PAIN Narrative: Patient is 59-year-old male without prior cardiac history. Has a history of hypertension, hyperlipidemia, recently diagnosed diabetes mellitus, obesity, sleep apnea. He has prior history of many PEs in the past and he has been on long-term anticoagulation with Xarelto. He never been a smoker. About a week ago he felt tired associated with shortness of breath and he went to urgent care and he was given antibiotics, he was checked for COVID and it was negative, however he got worse therefore he came to the emergency room On 04/02/2024. Chest CTA was negative for PE however it showed right lower lobe opacity and he was sent home on Medrol packs and antibiotics. He felt good for couple days however yesterday he came back again feeling tired and more short of breath in addition to intermittent left-sided sharp chest pains not related to exertion. He admits mild cough. He denies any effect of inspiration or cough on this chest pain. Chest wall is not tender to palpation. The patient reports that he has been short of breath with activities for a month or so but no prior chest pain. Chest x-ray showed right lower lobe atelectasis. Troponin is totally negative. D-dimer is negative. EKG without significant T or ST changes. Echo yesterday s howed normal left ventricle systolic function and no other major abnormalities. He was sent today for Lexiscan nuclear stress test which showed small area of mid and basal anterior fixed defect with normal contractility and ejection fraction of 60% most likely consistent with soft tissue attenuation. I actually reviewed the images myself and I think this nuclear study is normal. The EKG portion of Lexiscan stress test was negative. Interestingly patient did not have any symptoms during the study however he had chest pain while he was lying under the camera for the stress images. EKG performed at the time of chest pain and it was negative. Patient reports that he has not been walking around a lot because he feels lightheaded when he gets up and walk around. The patient never had chest pain in the past. Denies orthopnea or paroxysmal l nocturnal dyspnea or palpitations or leg edema He never been a smoker. He drinks alcohol occasionally. No history of drugs. Regarding family history no significant history of coronary artery disease Review of Systems ROS Narrative All systems were reviewed and they were negative except for the positive findings noted above in the history PFSH PFSH Medical History Depression ?F32.A - Depression, unspecified (ICD-10) Migraine headache ?G43.909 - Migraine, unspecified, not intractable, without status migrainosus (ICD-10) Non-insulin dependent type 2 diabetes mellitus ?E11.9 - Type 2 diabetes mellitus without complications (ICD-10) Hyperlipidemia associated with type 2 diabetes mellitus ?E11.69 - Type 2 diabetes mellitus with other specified complication (ICD-10) ?E78.5 - Hyperlipidemia, unspecified (ICD-10) Primary hypertension ?I10 - Essential (primary) hypertension (ICD-10) History of pulmonary embolism ?Z86.711 - Personal history of pulmonary embolism (ICD-10) Social History Little interest or pleasure in doing things: not at all Feeling down, depressed, or hopeless: not at all Meds Home Medications and Allergies Home Medications ?Medication ?Instructions ?Recorded ?Confirmed ?Type albuterol sulfate 90 mcg/actuation 1 inh inhalation Q6H PRN shortness 04/02/24 04/06/24 Rx aerosol inhaler of breath or wheezing #6.7 grams amoxicillin 875 mg-potassium 1 tab PO Q12H #14 tabs 04/02/24 04/06/24 Rx clavulanate 125 mg tablet cyclobenzaprine 10 mg tablet 10 mg PO Q12H PRN back pain 04/02/24 04/06/24 History doxycycline hyclate 100 mg capsule 100 mg PO Q12H 04/02/24 04/06/24 History duloxetine 60 mg capsule,delayed 60 mg PO DAILY 04/02/24 04/06/24 History release fenofibrate nanocrystallized 48 mg 48 mg PO DAILY 04/02/24 04/06/24 History tablet galcanezumab-gnlm 120 mg/mL 120 mg subcut .monthly 04/02/24 04/06/24 History subcutaneous pen injector (Emgality Pen) galcanezumab-gnlm 300 mg/3 mL (100 300 mg subcut .monthly 04/02/24 04/06/24 History mg/mL x 3) subcutaneous syringe (Emgality) lisinopril 20 mg tablet 20 mg PO DAILY 04/02/24 04/06/24 History metformin 500 mg tablet 500 mg PO DAILY 04/02/24 04/06/24 History methylprednisolone 4 mg tablets in 4 mg PO DAILY #21 ea 04/02/24 04/06/24 Rx a dose pack (Medrol (Samm)) rivaroxaban 20 mg tablet (Xarelto) 20 mg PO Q24H 04/02/24 04/06/24 History semaglutide 0.25 mg or 0.5 mg (2 0.25 mg subcut .weekly 04/02/24 04/06/24 History mg/3 mL) subcutaneous pen injector (Ozempic) Allergies Allergy/AdvReac Type Severity Reaction Status Date / Time No Known Drug Allergies Allergy Verified 09/10/23 13:24 Exam Narrative Exam Narrative: He is alert, oriented, not in apparent distress HEENT within normal limits Neck: Supple, normal range of motion, no lymphadenopathy, thyroid is normal, jugular venous pressure is normal, no carotid bruit Lungs: Clear to auscultation without rales or rhonchi or wheezes Cardiovascular system: Regular rate and rhythm, normal S1 and S2, no gallop or murmur or click Extremities: No edema or cyanosis or clubbing Neurological examination grossly normal Chest wall no tenderness to palpation Constitutional Vital Signs, click to edit/add: Last Vital Signs Temp 98.3 F 04/07/24 16:50 Pulse 114 H 04/07/24 17:59 Resp 18 04/07/24 16:50 BP 123/76 04/07/24 16:50 Pulse Ox 98 04/07/24 16:50 O2 Del Method Room Air 04/07/24 16:50 Results Labs and Meds Lab results: Cardiac Enzymes 04/07/24 Range/Units 05:34 AST 11 L (15-37) U/L Lipids 04/07/24 Range/Units 05:34 Triglycerides 118 (<=150) mg/dL Cholesterol 164 (<=200) mg/dL HDL Cholesterol 51 (40-60) mg/dL Cholesterol/HDL Ratio 3.2 CBC 04/07/24 Range/Units 05:34 WBC 10.8 (4.0-11.0) 10^3/uL RBC 4.87 (4.70-6.10) 10^6/uL Hgb 15.0 (14.0-18.0) g/dL Hct 43.5 (42.0-54.0) % Plt Count 327 (150-450) 10^3/uL Neut # (Auto) 6.5 (1.4-6.5) 10^3/uL Lymph # (Auto) 3.1 (1.2-3.8) 10^3/uL Grimes # (Auto) 1.0 H (0.3-0.8) 10^3/uL Eos # (Auto) 0.0 (0.0-0.7) 10^3/uL Baso # (Auto) 0.0 (0.0-0.1) 10^3/uL Comprehensive Metabolic Panel 04/07/24 Range/Units 05:34 Sodium 137 (136-145) mmol/L Potassium 4.5 (3.5-5.1) mmol/L Chloride 103 (98-107) mmol/L Carbon Dioxide 24.7 (21.0-32.0) mmol/L BUN 16.0 (7.0-18.0) mg/dL Creatinine 1.02 (0.70-1.30) mg/dL Glucose 225 H (74-106) mg/dL Calcium 9.8 (8.5-10.1) mg/dL AST 11 L (15-37) U/L ALT 32 (16-63) U/L Alkaline Phosphatase 85 (46-116) U/L Total Protein 7.5 (6.4-8.2) g/dL Albumin 3.3 L (3.4-5.0) g/dL Intake and Output 04/07/24 04/07/24 04/07/24 07:59 15:59 23:59 Intake Total 980 / 980 Balance 980 / 980 Intake: Oral 980 / 980 Other: # Unmeasured Voids 2 echo 04/06/2024: Normal left ventricle systolic function Normal right ventricle size and function No significant valvular abnormalities Lexiscan nuclear stress test 04/07/2024 Fixed anterior defect, no ischemia Normal left ventricle systolic function Negative Lexiscan EKG stress test EKGs he had 2 EKGs on 04/06/2024 and 2 EKGs on 03/19/2024: All of them showed normal sinus rhythm, incomplete right bundle branch block, no T or ST changes Assessment and Plan Assessment and Plan (1) Chest pain: Assessment and Plan: Not typical. His echo showed normal left trickle Sellick function without motion abnormalities. Lexiscan nuclear stress test no evidence of ischemia and normal left ventricular systolic function, no EKG changes Qualifiers: Chest pain type: unspecified Qualified Code(s): R07.9 - Chest pain, unspecified (2) Community acquired pneumonia: Qualifiers: Laterality: right Lung location: lower lobe of lung Qualified Code(s): J18.9 - Pneumonia, unspecified organism (3) History of pulmonary embolism: (4) Primary hypertension: (5) Hyperlipidemia associated with type 2 diabetes mellitus: (6) Non-insulin dependent type 2 diabetes mellitus: (7) Migraine headache: Qualifiers: Migraine type: unspecified Status migrainosus presence: without status migrainosus Intractability: not intractable Qualified Code(s): G43.909 - Migraine, unspecified, not intractable, without status migrainosus (8) Depression: Qualifiers: Depression Type: unspecified Qualified Code(s): F32.A - Depression, unspecified Plan Continue Xarelto I agree on adding beta-blockers Add atorvastatin to bring his LDL cholesterol to 70 or below As mentioned above his chest pain is not typical and his stress test images which I reviewed myself does not show evidence of ischemia therefore I think should keep the patient till tomorrow and ambulate him and if he does not have recurrent chest pain he can go home and follow-up as outpatient. If he continues to have frequent chest pain we might need to consider cardiac catheterization. The above was discussed with the patient and his and also with Dr. Oseas Mandel MD, [facility]
[2024-04-07] MEDS: MORPHINE SULFATE 2 MG/ML SYRINGE IV ×2 (18:51→21:37)
[2024-04-07] MEDS: CARVEDILOL 3.125 MG TABLET PO (20:39)
[2024-04-07 20:45] LABS: Glucometer 213 mg/dL (74-106)
[2024-04-07] MEDS: ALPRAZOLAM 0.25 MG TABLET PO (21:08)
--- NOTE | 2024-04-07 23:28 | ECG_ITS ---
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
[2024-04-08] VITALS (10 sets, daily range): BP systolic 118–132; BP diastolic 64–81; PULSE 78–97; TEMP 36.3–36.4; O2SAT 94–99
[2024-04-08 00:24] LABS: Anion Gap 12.1; BUN Creatinine Ratio 16.2; Calcium 9.5 mg/dL (8.5-10.1); Carbon Dioxide 25.2 mmol/L (21.0-32.0); Chloride 104 mmol/L (98-107); Estimated GFR (African America >60 (>=60 mL/min/1.73m^2); Estimated GFR (Non-African Ame >60 (>=60 mL/min/1.73m^2); Glucose 164 mg/dL (74-106); Magnesium 1.8 mg/dL (1.8-2.4); Potassium 4.3 mmol/L (3.5-5.1); Sodium 137 mmol/L (136-145)
[2024-04-08 00:31] LABS: Troponin I High Sensitivity 4.9 pg/mL (4.0-76.1)
[2024-04-08] MEDS: LORAZEPAM 0.5 MG TABLET 0.25 MG PO ×2 (00:46→10:34)
[2024-04-08] MEDS: MORPHINE SULFATE 2 MG/ML SYRINGE IV ×2 (00:52→10:34)
[2024-04-08] MEDS: IPRATROPIUM/ALBUTEROL SULFATE 3 ML AMPUL.NEB IH ×2 (04:03→10:31)
[2024-04-08 06:19] LABS: Basophils Absolute Auto 0.1 10^3/uL (0.0-0.1); Eosinophils Absolute Auto 0.2 10^3/uL (0.0-0.7); Eosinophils Percent Auto 2.5 % (0.9-7.0); Hematocrit 43.7 % (42.0-54.0); Hemoglobin 14.7 g/dL (14.0-18.0); Immature Granulocytes Abs Auto 0.22 10^3/uL (0.00-0.03); Immature Granulocytes Pct Auto 2.6 % (0.0-0.5); Lymphocytes Absolute Auto 4.2 10^3/uL (1.2-3.8); Lymphocytes Percent Auto 49.6 % (20.5-60.0); Mean Corpuscular HGB Conc 33.6 g/dL (29.9-35.2); Mean Corpuscular Hemoglobin 30.2 pg (25.9-34.0); Mean Corpuscular Volume 89.7 fL (80.0-94.0); Mean Platelet Volume 9.1 fL (9.5-13.5); Monocytes Absolute Auto 0.8 10^3/uL (0.3-0.8); Neutrophils Absolute Auto 2.9 10^3/uL (1.4-6.5); Neutrophils Percent Auto 34.3 % (43.0-75.0); Platelet Count 267 10^3/uL (150-450); Red Blood Count 4.87 10^6/uL (4.70-6.10); Red Cell Distribution Width 12.5 % (11.0-15.0); White Blood Count 8.4 10^3/uL (4.0-11.0)
[2024-04-08 06:54] LABS: Alanine Aminotransferase 36 U/L (16-63); Albumin Globulin Ratio 0.9; Albumin Level 3.4 g/dL (3.4-5.0); Alkaline Phosphatase 78 U/L (46-116); Anion Gap 15.3; Aspartate Amino Transferase 14 U/L (15-37); BUN Creatinine Ratio 16.9; Bilirubin Total 0.3 mg/dL (0.2-1.0); Carbon Dioxide 23.8 mmol/L (21.0-32.0); Chloride 104 mmol/L (98-107); Estimated GFR (African America >60 (>=60 mL/min/1.73m^2); Estimated GFR (Non-African Ame >60 (>=60 mL/min/1.73m^2); Globulin 3.7 g/dL; Glucose 152 mg/dL (74-106); Potassium 4.1 mmol/L (3.5-5.1); Sodium 139 mmol/L (136-145); Total Protein 7.1 g/dL (6.4-8.2); Troponin I High Sensitivity 4.1 pg/mL (4.0-76.1)
[2024-04-08] MEDS: INSULIN ASPART 300 UNIT/3 ML PEN SUBQ (08:45)
[2024-04-08] MEDS: CYCLOBENZAPRINE HCL 10 MG TABLET PO (08:45)
[2024-04-08] MEDS: DULOXETINE HCL 60 MG CAPSULE.DR PO (08:45)
[2024-04-08] MEDS: CARVEDILOL 3.125 MG TABLET PO (08:45)
[2024-04-08] MEDS: FENOFIBRATE 54 MG TABLET PO (08:46)
[2024-04-08] MEDS: LISINOPRIL 20 MG TABLET PO (08:46)
[2024-04-08] MEDS: RIVAROXABAN 20 MG 20 EACH PO (08:46)
--- NOTE | 2024-04-08 09:42 | PC.NURSE ---
rn assisted patient with walking in the argueta, patient did become tachypneic, short of breath and tachycardic (130's-140's) during ambulation
[2024-04-08] MEDS: BUDESONIDE 0.5 MG/2 ML AMPULE NEB IH (10:31)
[2024-04-08 12:00] LABS: Glucometer 131 mg/dL (74-106)
--- NOTE | 2024-04-08 12:00 | PM.DS1 ---
DS: Providers Provider Date of admission: 04/06/24 17:04 Primary care physician: KIMI WEISS Admitting clinician: Monica Farooq Attending physician on admission: Monica Farooq Consults: 04/06/24 16:29 Consult to Cardiology Routine Reason for consultation: Atypical Chest pain, history of PE's, Tachycardia Has provider been notified: No Attending physician on discharge: Shaikh Corin Discharging clinician: Shaikh Corin Anticipated date of discharge: 04/08/24 DS: Diagnosis Discharge Diagnosis (1) Chest pain: Qualifiers: Chest pain type: unspecified Qualified Code(s): R07.9 - Chest pain, unspecified (2) Community acquired pneumonia: Qualifiers: Laterality: right Lung location: lower lobe of lung Qualified Code(s): J18.9 - Pneumonia, unspecified organism (3) History of pulmonary embolism: (4) Primary hypertension: (5) Hyperlipidemia associated with type 2 diabetes mellitus: (6) Non-insulin dependent type 2 diabetes mellitus: (7) Migraine headache: Qualifiers: Migraine type: unspecified Status migrainosus presence: without status migrainosus Intractability: not intractable Qualified Code(s): G43.909 - Migraine, unspecified, not intractable, without status migrainosus (8) Depression: Qualifiers: Depression Type: unspecified Qualified Code(s): F32.A - Depression, unspecified DS: Summary Hospital Course Hospital Course: Patient is a 59 y.o white male with past medical history of PE's, taking Xarelto, depression, HLD, Migraine headaches, hypertension, NIDDM, who presented to the ER on 04/02/24 with chest pain and shortness of breath, had CTA that showed no acute PE but RLL pneumonia. Patient was sent home on MEdrol dosepak, Augmentin, doxycycline and albuterol inhaler. He returned to the ER on with substernal chest pain that radiated to his right arm, chest pressure with exertion, and cough. Patient's chest X-ray showed atelectasis but overall RLL infiltrate was noted to be better. Patient was admitted for chest pain work up. He had normal d dimer, negative cardiac enzymes and no sig finding on ekg. He had ECHO and Lexiscan that did not reveal any sig abnormality. Mild area of reversible perfusion in LAD territory was noted by Radiology but upon review by Cardiology, it was felt to be hypoattenuation from soft tissue. Patient continued to experience intermittent chest discomfort and SOB. His pain seems more pleuritic in nature and given his recent Pneumonia and unremarkable testing for Ischemic heart disease, seems unlikely to be of cardiac etiology. Cardiology recommended outpatient f/u if chest persistent and did not resolve. Upon further inquiry, he reported that he has been feeling tired and SOB for about a month or so and it is quite possible that he may have developed CTEPH from recurrent PEs in the past. This can be followed up and patient can be evaluated for it by VQ scan as outpatient if his symptoms persistent and deemed necessary by Cardiology. He has no ongoing needs for continued inpatient hospital stay and can be discharged home with close f/u as outpatient by PCP and Cardiology. We will start him on oral Aspirin and Lipitor. Status at Discharge Functional status at discharge: independent ambulation Overall status at discharge: patient is progressing back to baseline Time Spent with Patient Time attestation: Total time spent providing and/or coordinating discharge services: Exam Constitutional Vital Signs, click to edit/add: Last Vital Signs Temp 97.6 F 04/08/24 08:00 Pulse 96 H 04/08/24 11:49 Resp 18 04/08/24 10:31 BP 129/64 04/08/24 08:00 Pulse Ox 96 04/08/24 11:49 O2 Del Method Room Air 04/08/24 10:31 O2 Flow Rate 2 04/08/24 04:05 Documenting provider has reviewed patient's vital signs: yes Common normals: no apparent distress and oriented x3 General appearance: cooperative Chest Other: tenderness on left side anteriorly. Respiratory Common normals: normal respiratory effort and clear to auscultation bilaterally Effort & inspection: able to speak in complete sentences Auscultation: clear to auscultation bilaterally Cardio Common normals: regular rate, S1 normal heart sound and S2 normal heart sound Rate: regular rate Heart sounds: S1 normal and S2 normal GI Common normals: Normal to inspection, nondistended, normoactive bowel sounds present, soft to palpation, non-tender and no hepatosplenomegaly Palpation: soft and no hepatosplenomegaly Extremity Common normals: no clubbing, cyanosis or edema Neuro Common normals: oriented x3, moves all extremities and no focal motor deficits Psych Common normals: mental status grossly normal, denies hallucinations, denies homicidal ideation and denies suicidal ideation DS: Data Data Completed and Pending Labs on day of discharge: Labs from last 24 hours 04/08/24 04/07/24 04/07/24 05:48 23:50 20:42 WBC 8.4 RBC 4.87 Hgb 14.7 Hct 43.7 MCV 89.7 MCH 30.2 MCHC 33.6 RDW 12.5 Plt Count 267 MPV 9.1 L Neut % (Auto) 34.3 L Lymph % (Auto) 49.6 [place] % (Auto) 10.0 Eos % (Auto) 2.5 Baso % (Auto) 1.0 Neut # (Auto) 2.9 Lymph # (Auto) 4.2 H [place] # (Auto) 0.8 Eos # (Auto) 0.2 Baso # (Auto) 0.1 Abs Immat Gran (auto) 0.22 H Imm/Tot Granulo (auto) 2.6 H Sodium 139 137 Potassium 4.1 4.3 Chloride 104 104 Carbon Dioxide 23.8 25.2 Anion Gap 15.3 12.1 BUN 13.0 16.0 Creatinine 0.77 0.99 Est GFR ( Amer) >60 >60 Est GFR (Non-Af Amer) >60 >60 BUN/Creatinine Ratio 16.9 16.2 Glucose 152 H 164 H Calcium 9.0 9.5 Magnesium 1.8 Total Bilirubin 0.3 AST 14 L ALT 36 Alkaline Phosphatase 78 Troponin I High Sens 4.1 4.9 Total Protein 7.1 Albumin 3.4 Globulin 3.7 Albumin/Globulin Ratio 0.9 POC Glucose 213 H 04/07/24 16:45 WBC RBC Hgb Hct MCV MCH MCHC RDW Plt Count MPV Neut % (Auto) Lymph % (Auto) [place] % (Auto) Eos % (Auto) Baso % (Auto) Neut # (Auto) Lymph # (Auto) [place] # (Auto) Eos # (Auto) Baso # (Auto) Abs Immat Gran (auto) Imm/Tot Granulo (auto) Sodium Potassium Chloride Carbon Dioxide Anion Gap BUN Creatinine Est GFR ( Amer) Est GFR (Non-Af Amer) BUN/Creatinine Ratio Glucose Calcium Magnesium Total Bilirubin AST ALT Alkaline Phosphatase Troponin I High Sens Total Protein Albumin Globulin Albumin/Globulin Ratio POC Glucose 184 H Discharge Plan Discharge Disposition: Home, Self-Care Discharge Medications: New aspirin 81 mg tablet,chewable 81 mg PO DAILY Qty: 30 0RF atorvastatin [Lipitor] 20 mg tablet 20 mg PO DAILY Qty: 30 0RF levofloxacin 750 mg tablet 750 mg PO DAILY 3 Days Qty: 3 0RF Continued cyclobenzaprine 10 mg tablet 10 mg PO Q12H PRN (Reason: back pain) metformin 500 mg tablet 500 mg PO DAILY lisinopril 20 mg tablet 20 mg PO DAILY duloxetine 60 mg capsule,delayed release(DR/EC) 60 mg PO DAILY fenofibrate nanocrystallized 48 mg tablet 48 mg PO DAILY Xarelto 20 mg tablet 20 mg PO Q24H Emgality Pen 120 mg/mL pen injector 120 mg SUBCUT .monthly Emgality Syringe 300 mg/3 mL (100 mg/mL x 3) syringe 300 mg SUBCUT .monthly Ozempic 0.25 mg or 0.5 mg (2 mg/3 mL) pen injector 0.25 mg SUBCUT .weekly methylprednisolone [Medrol (Samm)] 4 mg tablets,dose pack 4 mg PO DAILY Qty: 21 0RF Rx Instructions: TAKE PER DOSEPAK INSTRUCTIONS albuterol sulfate 90 mcg/actuation HFA aerosol inhaler 1 inh inhalation Q6H PRN (Reason: shortness of breath or wheezing) Qty: 6.7 0RF Discontinued doxycycline hyclate 100 mg capsule 100 mg PO Q12H amoxicillin-pot clavulanate 875-125 mg tablet 1 tab PO Q12H Qty: 14 0RF Activity: increase activity as tolerated Diet: advance to your usual diet Print Language: Kyrgyz Forms: Portal Instructions Follow Up Appointments: Please call and schedule a follow up appt. with Dr. Weiss for 5-7 days following discharge. [phone] Cardiology in 2 weeks
--- NOTE | 2024-04-13 12:36 | CM.DCFOLLOWU ---
1st attempt 04/13/24, no answer
== END 2024-04-08 13:54 | disposition home or self-care (01) ==
LOC: ER 16:29 → MS 17:08
PROVIDERS: Registered Nurse; Admitting Provider Family Medicine; Emergency Provider Emergency Medicine; PCP Family Medicine; Visit Provider Family Medicine
DX: R07.89 Other chest pain (principal); I10 Essential (primary) hypertension; J18.9 Pneumonia, unspecified organism; E11.69 Type 2 diabetes mellitus with other specified complication; F32.A Depression, unspecified; R06.02 Shortness of breath; E66.9 Obesity, unspecified; R00.0 Tachycardia, unspecified; G47.30 Sleep apnea, unspecified; E78.5 Hyperlipidemia, unspecified; G43.909 Migraine, unspecified, not intractable, without status migrainosus; Z79.01 Long term (current) use of anticoagulants; Z86.711 Personal history of pulmonary embolism; Z79.84 Long term (current) use of oral hypoglycemic drugs; Z79.899 Other long term (current) drug therapy; Z79.85 Long-term (current) use of injectable non-insulin antidiabetic drugs; Z68.34 Body mass index [BMI] 34.0-34.9, adult
CPT/HCPCS: 36415; 71045; 71046; 78452; 80048; 80053; 80061; 82948; 83605; 83735; 83880; 84443; 84484; 85025; 85378; 87040; 93005; 93017; 93306; 94640; 94667; 94668; 94761; 96365; 96366; 96375; 96376; 99285; A9500; G0378; J1885; J2270; J2785; J2919

== ENCOUNTER 2024-05-09 15:46 | Outpatient (OUT) | payer OTHER, SELFPAY ==
--- OUTSIDE RECORDS SUMMARY | 2024-05-09 15:59 | XMS_ITS | CCD ---
Author Organization [facility] Care Team Providers Care Loan Servicing Specialist Name Role Phone Unknown, Referring Provider Unavailable [...] Care Provider MD Charles Claros Attending Provider BEE BLACKMON Attending Unavailable KIMI WEISS Primary Care UnavailKimi Webber MD Primary Care Provider THALIA SANDY Attending Unavailable KARON RODRIGUEZ Attending Unavailable KARON RODRIGUEZ Attending Unavailable KARON RODRIGUEZ Referring Unavailable Kimi Weiss DO Primary Care Provider Kimi Weiss Primary Care Unavailable Kimi Weiss Attending Unavailable Kimi Weiss Attending Unavailable Kimi Weiss Primary Care Unavailable Kimi Weiss Attending Unavailable Kimi Weiss Primary Care Unavailable Kimi Weiss Attending Unavailable Kimi Weiss Primary Care Unavailable Kimi Weiss Primary Care Unavailable Kimi Weiss Attending Unavailable Abhishek, Kimi P Referring Unavailable Abhishek, Kimi P Primary Care Unavailable Abhishek, Kimi P Attending Unavailable Abhishek, Kimi P Attending Unavailable Abhishek, Kimi P Admitting Unavailable Abhishek, Kimi P Primary Care Unavailable Max, Georgina Attending Unavailable Abhishek, Kimi P Primary Care Unavailable Max, Georgina Admitting Unavailable Abhishek, Kimi P Primary Care Unavailable Abhishek, Kimi P Attending Unavailable Abhishek, Kimi P Primary Care Unavailable Abhishek, Kimi P Attending Unavailable Abhishek, Kimi P Attending Unavailable Abhishek, Kimi P Primary Care Unavailable Charles Claros Attending Unavailable Abhishek, Kimi Primary Care Unavailable Charles Claros Admitting Unavailable Abhishek, Kimi Primary Care Unavailable Charles Claros Admitting Unavailable Charles Claros Attending Unavailable Wendy Cruz Consulting Unavailable Abhishek, Kimi Primary Care Unavailable Daromar, Obaydah M Admitting Unavailable Daromar Obaydah M Attending Unavailable Jacinto Livingston Consulting Unavailable Des Musa Consulting Iza Prater Consulting Unavailable Allergies Allergy Classification Reported Allergen(s) Allergy Type Date of Onset Reaction(s) Facility (1 source) ALLERGIES NOT ON FILE; Translations: [ALLERGIES NOT ON FILE] Propensity to adverse reactions (disorder) [facility] Medications Current Medications Medication Drug Class(es) [...] Active Start: 04-08-2021 take 1 capsule by [facility] every four hours as needed for headache Cfskwztqcf-JFNT-Hpepnogy 50-300-40 MG Oral Capsule TAKE 1 CAPSULE [...] 12:03pm February 28, 2020 1:49pm HYDROcodone-acet aminophen ([address]) 5-325 MG tablet Take by mouth Active [...] 13, 2019 11:45pm Blood Glucose Monitoring Suppl (PredictSpringTouch Verio Flex System) w/Device kit (2 sources) [...] MIGRAINE 8 tablet 2 03/20/2024 Active sennosides, halfway 8.6 mg oral tablet (1 source) Start: [...] Discontinued 350 MG PO Three times daily June 15, 2019 12:03pm February 28, 2020 [...] cause serious breathing problems. 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) drug therapy; Translations: [OTH JAIL CURRENT DRUG THERAPY] Onset: 2 Episodic Other aftercare (1 source) 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; Translations: [JAIL CURRNT USE ANTICOAGULANTS] Onset: 2 Episodic Other aftercare (4 sources) Long-term current use of anticoagulant; Translations: [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] 02-28-2020 Episodic Other [...] Test Name Value Interpretation Reference Range Facility Stress Teston 04-18-2024 Stress Test [id number]#1.00OTGTI [facility] Outside Recordson 04-17-2024 Outside Records [id number]#1.00OTGTI [facility] Rad - Catheterization Lab Re porton 04-17-2024 Rad - Catheterization Lab Report [id number]#1.00OTGTI [facility] Blood Urea Nitrogenon 2023 Urea nitrogen [Mass/Vol] 13 mg/dL Normal 7-25 [facility] Comment on above: Performed By: #### B GEOTECHNICAL ENGINEER, BMP, PT, CBC, DDIMER, HS TROP #### [address] [address] [facility] Coagulation Profileon 2023 aPTT Coag (Bld) [Time] 27.1 s Normal 25.1-36.5 [facility] Comment on above: Result Comment: A he matocrit value greater than 55% may lead to inaccurate results in coagulation testing. Patients having hematocrit values >55% require a special collection tube for coagulation studies. Please contact the laboratory at [phone] for redraw instructions. PERFORMED BY: [place] [id number] PATHOLOGIST SPORTS ANCHOR BRANDON AVITIA M.D. Performed By: #### B GEOTECHNICAL ENGINEER, BMP, PT, CBC, DDIMER, HS TROP #### [address] [address] [facility] INR Coag (PPP) [Relative time] 1.0 {INR} Normal [facility] Comment on above: Result Comment: INR Therapeutic Range A) Pre- and Peroperative OAT started two weeks before surgery. NOT HIP SURGERY: 1.5 - 2.5 HIP SURGERY: 2 - 3 B) Primary and secondary prevention of venous THROMBOSIS: 2 - 3 C) Active venous thrombosis, pulmonary embolism and prevention of recurrent venous thrombosis: 2 - 3 D) Prevention of arterial thromboembolism including patients with mechanical heart valves: 3 - 4.5 Performed By: #### B GEOTECHNICAL ENGINEER, BMP, PT, CBC, DDIMER, HS TROP #### [address] [address] [facility] PT Coag (PPP) [Time] 11.2 s Normal 9.0-12.9 [facility] Comment on above: Result Comment: A he matocrit value greater than 55% may lead to inaccurate results in coagulation testing. Patients having hematocrit values >55% require a special collection tube for coagulation studies. Please contact the laboratory at [phone] for redraw instructions. Performed By: #### B GEOTECHNICAL ENGINEER, BMP, PT, CBC, DDIMER, HS TROP #### [address] [address] [facility] Complete Blood Count Auto Di ffon 04-13-2024 Basophils (Bld) [#/Vol] 0.0 10*3/uL Normal 0.0-0.2 [facility] Comment on above: Result Comment: PERF ORMED BY: [place] [address] PATHOLOGIST SPORTS ANCHOR BRANDON AVITIA M.D. Performed By: #### B GEOTECHNICAL ENGINEER, BMP, PT, CBC, DDIMER, HS TROP #### [address] Basophils/100 WBC (Bld) 0.6 % Normal . [facility] Comment on above: Performed By: #### B GEOTECHNICAL ENGINEER, BMP, PT, CBC, DDIMER, HS TROP #### [address] Eosinophils (Bld) [#/Vol] 0.1 10*3/uL Normal 0.0-0.45 [facility] Comment on above: Performed By: #### B GEOTECHNICAL ENGINEER, BMP, PT, CBC, DDIMER, HS TROP #### [address] Eosinophils/100 WBC (Bld) 1.9 % Normal . [facility] Comment on above: Performed By: #### B GEOTECHNICAL ENGINEER, BMP, PT, CBC, DDIMER, HS TROP #### [address] Erythrocyte distribution width (RBC) [Ratio] 13.0 % Normal 12.0-14.8 [facility] Comment on above: Performed By: #### B GEOTECHNICAL ENGINEER, BMP, PT, CBC, DDIMER, HS TROP #### [address] Hematocrit (Bld) [Volume fraction] 40.6 % Normal 38.8-50.0 [facility] Comment on above: Performed By: #### B GEOTECHNICAL ENGINEER, BMP, PT, CBC, DDIMER, HS TROP #### [address] Hemoglobin (Bld) [Mass/Vol] 13.8 g/dL Normal 13.0-17.0 [facility] Comment on above: Performed By: #### B GEOTECHNICAL ENGINEER, BMP, PT, CBC, DDIMER, HS TROP #### [address] Lymphocytes (Bld) [#/Vol] 2.5 10*3/uL Normal 1.00-4.8 [facility] Comment on above: Performed By: #### B GEOTECHNICAL ENGINEER, BMP, PT, CBC, DDIMER, HS TROP #### [address] Lymphocytes/100 WBC (Bld) 37.3 % Normal . [facility] Comment on above: Performed By: #### B GEOTECHNICAL ENGINEER, BMP, PT, CBC, DDIMER, HS TROP #### [address] MCH (RBC) [Entitic mass] 30.9 pg Normal 27.5-35.2 [facility] Comment on above: Performed By: #### B GEOTECHNICAL ENGINEER, BMP, PT, CBC, DDIMER, HS TROP #### [address] MCV (RBC) [Entitic vol] 90.6 fL Normal 83.5-101 [facility] Comment on above: Performed By: #### B GEOTECHNICAL ENGINEER, BMP, PT, CBC, DDIMER, HS TROP #### [address] Mean Corpuscular HGB Conc 34.1 g/dL Normal 32.5-35.6 [facility] Comment on above: Performed By: #### B GEOTECHNICAL ENGINEER, BMP, PT, CBC, DDIMER, HS TROP #### [address] Monocytes (Bld) [#/Vol] 0.5 10*3/uL Normal 0.0-0.8 [facility] Comment on above: Performed By: #### B GEOTECHNICAL ENGINEER, BMP, PT, CBC, DDIMER, HS TROP #### [address] Monocytes/100 WBC (Bld) 8.1 % Normal . [facility] Comment on above: Performed By: #### B GEOTECHNICAL ENGINEER, BMP, PT, CBC, DDIMER, HS TROP #### [address] Neutrophils (Bld) [#/Vol] 3.5 10*3/uL Normal 1.8-7.7 [facility] Comment on above: Performed By: #### B GEOTECHNICAL ENGINEER, BMP, PT, CBC, DDIMER, HS TROP #### [place] [address] [place] Neutrophils/100 WBC (Bld) 52.1 % Normal . [facility] Comment on above: Performed By: #### B GEOTECHNICAL ENGINEER, BMP, PT, CBC, DDIMER, HS TROP #### [address] NRBC% 0.3 /100{WBC} Normal 0-0.5 [facility] Comment on above: Performed By: #### B GEOTECHNICAL ENGINEER, BMP, PT, CBC, DDIMER, HS TROP #### [address] Platelet mean volume (Bld) [Entitic vol] 7.6 fL Normal 6.6-10.1 [facility] Comment on above: Performed By: #### B GEOTECHNICAL ENGINEER, BMP, PT, CBC, DDIMER, HS TROP #### [place] [address] [place] Platelets (Bld) [#/Vol] 229 10*3/uL Normal 150-450 [facility] Comment on above: Performed By: #### B GEOTECHNICAL ENGINEER, BMP, PT, CBC, DDIMER, HS TROP #### [place] [address] [place] RBC (Bld) [#/Vol] 4.48 10*6/uL Normal 3.90-5.60 [facility] Comment on above: Performed By: #### B GEOTECHNICAL ENGINEER, BMP, PT, CBC, DDIMER, HS TROP #### [address] WBC (Bld) [#/Vol] 6.7 10*3/uL Normal 4.1-10.5 [facility] Comment on above: Performed By: #### B GEOTECHNICAL ENGINEER, BMP, PT, CBC, DDIMER, HS TROP #### [address] Consultation/Specialist Note on 04-13-2024 Consultation/Specia list Note [id number]#[id number] FF Normal [facility] Creatinineon 04-13-2024 Creatinine [Mass/Vol] 0.80 mg/dL Normal 0.70-1.30 [facility] Comment on above: Performed By: #### B GEOTECHNICAL ENGINEER, BMP, PT, CBC, DDIMER, HS TROP #### [address] Creatinine Clr Calc Pharmacy 134.56 Normal [facility] Comment on above: Result Comment: PERF ORMED BY: [place] [address] PATHOLOGIST SPORTS ANCHOR BRANDON AVITIA M.D. Performed By: #### B GEOTECHNICAL ENGINEER, BMP, PT, CBC, DDIMER, HS TROP #### [address] GFR/1.73 sq M.predicted MDRD (S/P/Bld) [Vol rate/Area] mL/min/{1.73_m2} Normal [facility] Comment on above: Performed By: #### B GEOTECHNICAL ENGINEER, BMP, PT, CBC, DDIMER, HS TROP #### [address] Electrolyteson 04-13-2024 Anion gap [Moles/Vol] 11.2 mmol/L Normal 6.0-15.0 [facility] Comment on above: Performed By: #### B GEOTECHNICAL ENGINEER, BMP, PT, CBC, DDIMER, HS TROP #### [address] Chloride [Moles/Vol] 104 mmol/L Normal 98-107 [facility] Comment on above: Performed By: #### B GEOTECHNICAL ENGINEER, BMP, PT, CBC, DDIMER, HS TROP #### [facility] [address] CO2 [Moles/Vol] 25.2 mmol/L Normal 21.0-31.0 [facility] Comment on above: Performed By: #### B GEOTECHNICAL ENGINEER, BMP, PT, CBC, DDIMER, HS TROP #### [facility] [address] Potassium [Moles/Vol] 4.4 mmol/L Normal 3.5-5.1 [facility] Comment on above: Result Comment: Hemo lysis is present at a level that could interfere with the result. Contact lab if redraw is required Performed By: #### B GEOTECHNICAL ENGINEER, BMP, PT, CBC, DDIMER, HS TROP #### [facility] [address] Sodium [Moles/Vol] 136 mmol/L Normal 136-145 [facility] Comment on above: Performed By: #### B GEOTECHNICAL ENGINEER, BMP, PT, CBC, DDIMER, HS TROP #### [address] Glucose Poct Glucometerson 1 06-14-2023 Glucose [Mass/Vol] 191 mg/dL Normal [facility] Comment on above: Result Comment: [facility] Glucose Reference Range is dependent on time and content of last meal. Glucose of more than 200 mg/dL in a nonstressed, ambulatory subject supports the diagnosis of Diabetes Mellitus. PERFORMED BY: [place] [address] PATHOLOGIST SPORTS ANCHOR BRANDON AVITIA M.D. Performed By: #### B GEOTECHNICAL ENGINEER, BMP, PT, CBC, DDIMER, HS TROP #### [address] COVID-19 Antigenon 4 COVID-19 Antigen Healthcare Worker?: N Reference Range: Negative Negative results, from patients with symptom onset beyond five days, should be treated as presumptive and confirmation with a molecular assay, if necessary, for patient management, may be performed. Negative results do not rule out COVID-19 and should not be used as the sole basis for treatment or patient management decisions, including infection control decisions. Negative results should be considered in the context of a patient's recent exposures, history and the presence of clinical signs and symptoms consistent with COVID-19. The [place] SARS Antigen ROLANDO does not differentiate between SARS-CoV and SARS-CoV-2. This test was developed and its performance characteristic determined by [employer] and validated at [facility]. This test has not been FDA cleared or approved. This test has been authorized by FDA under an Emergency Use Authorization (EUA). This test has been validated in accordance with the FDA's Guidance Document (Policy for Diagnostics Testing in Laboratories Certified to Perform High Complexity Testing under CLIA prior to Emergency Use Authorization for Coronavirus Disease-2019 during the Public Health Emergency) issued on July 20, 2019. This test is only authorized for the duration of time the declaration that circumstances exist justifying the authorization of the emergency use of in vitro diagnostic tests for detection of SARS-CoV-2 virus and/or diagnosis of COVID-19 infection under section 564(b)(1) of the Act, 21 U.S.C. 360bbb-3(b)(1), unless the authorization is terminated or revoked sooner. SARS-CoV+SARS-CoV-2 (COVID-19) Ag [Presence] in Respiratory specimen by Rapid immunoassay Negative for SARS Antigen by ROLANDO PERFORMED BY: [place] [address] PATHOLOGIST SPORTS ANCHOR BRANDON AVITIA M.D. Normal [facility] Comment on above: Performed By: #### B GEOTECHNICAL ENGINEER, BMP, PT, CBC, DDIMER, HS TROP #### [address] Glucose Poct Glucometerson 1 06-13-2023 Glucose [Mass/Vol] 223 mg/dL Normal [facility] Comment on above: Result Comment: [place] Glucose Reference Range is dependent on time and content of last meal. Glucose of more than 200 mg/dL in a nonstressed, ambulatory subject supports the diagnosis of Diabetes Mellitus. PERFORMED BY: [place] [address] PATHOLOGIST SPORTS ANCHOR BRANDON AVITIA M.D. Performed By: #### B GEOTECHNICAL ENGINEER, BMP, PT, CBC, DDIMER, HS TROP #### [address] Glucose [Mass/Vol] 121 mg/dL Normal [facility] Comment on above: Result Comment: [place] Glucose Reference Range is dependent on time and content of last meal. Glucose of more than 200 mg/dL in a nonstressed, ambulatory subject supports the diagnosis of Diabetes Mellitus. PERFORMED BY: [place] [address] PATHOLOGIST SPORTS ANCHOR BRANDON AVITIA M.D. Performed By: #### B GEOTECHNICAL ENGINEER, BMP, PT, CBC, DDIMER, HS TROP #### [address] Glucose [Mass/Vol] 148 mg/dL Normal [facility] Comment on above: Result Comment: [facility] Glucose Reference Range is dependent on time and content of last meal. Glucose of more than 200 mg/dL in a nonstressed, ambulatory subject supports the diagnosis of Diabetes Mellitus. PERFORMED BY: [place] [address] PATHOLOGIST SPORTS ANCHOR BRANDON AVITIA M.D. Performed By: #### G LULS #### Point of Care testing , Glucose [Mass/Vol] 178 mg/dL Normal [facility] Comment on above: Result Comment: [facility] Glucose Reference Range is dependent on time and content of last meal. Glucose of more than 200 mg/dL in a nonstressed, ambulatory subject supports the diagnosis of Diabetes Mellitus. PERFORMED BY: [place] [address] PATHOLOGIST SPORTS ANCHOR BRANDON AVITIA M.D. Performed By: #### B GEOTECHNICAL ENGINEER, BMP, PT, CBC, DDIMER, HS TROP #### [address] [place] Ag Negativeon 04-12-20 24 [place] Ag Negative Negative Normal Negative [facility] Comment on above: Result Comment: This is a duplicate [place] SARS Antigen (ROLANDO) result to be used for statistical tracking purpose only. PERFORMED BY: [address] [address] PATHOLOGIST SPORTS ANCHOR BRANDON AVITIA M.D. Performed By: #### B GEOTECHNICAL ENGINEER, BMP, PT, CBC, DDIMER, HS TROP #### [address] A1C with Estimated Average G luon 04-11-2024 Glucose [Mass/Vol] 229 mg/dL Normal [facility] Comment on above: Result Comment: PERF ORMED BY: [place] [address] PATHOLOGIST SPORTS ANCHOR BRANDON AVITIA M.D. Performed By: #### B GEOTECHNICAL ENGINEER, BMP, PT, CBC, DDIMER, HS TROP #### [place] [id number] [facility] HbA1c (Bld) [Mass fraction] 9.6 % High 4.3-5.6 [facility] Comment on above: Result Comment: Incr eased risk for diabetes: 5.7 - 6.4 diabetes: >6.4 glycemic control for adults with diabetes: <7.0 Performed By: #### B GEOTECHNICAL ENGINEER, BMP, PT, CBC, DDIMER, HS TROP #### [place] [id number] [facility] Comprehensive Metabolic Pane [facility] 04-11-2024 Albumin [Mass/Vol] 3.7 g/dL Normal 3.5-5.7 [facility] Comment on above: Performed By: #### C MP, LIPID, TSH3, A1C WTH eA, MG #### [address] Albumin/Globulin [Mass ratio] 1.2 {ratio} Normal [facility] Comment on above: Performed By: #### C MP, LIPID, TSH3, A1C WTH eA, MG #### [place] [id number] [facility] ALP [Catalytic activity/Vol] 85 U/L Normal 34-104 [facility] Comment on above: Performed By: #### C MP, LIPID, TSH3, A1C WTH eA, MG #### [address] ALT [Catalytic activity/Vol] 42 U/L Normal 7-52 [facility] Comment on above: Performed By: #### C MP, LIPID, TSH3, A1C WTH eA, MG #### [address] Anion gap [Moles/Vol] 9.7 mmol/L Normal 6.0-15.0 [facility] Comment on above: Performed By: #### C MP, LIPID, TSH3, A1C WTH eA, MG #### [address] AST [Catalytic activity/Vol] 28 U/L Normal 13-39 [facility] Comment on above: Performed By: #### C MP, LIPID, TSH3, A1C WTH eA, MG #### [address] Bilirubin [Mass/Vol] 0.6 mg/dL Normal 0.3-1.0 [facility] Comment on above: Performed By: #### C MP, LIPID, TSH3, A1C WTH eA, MG #### [address] Calcium [Mass/Vol] 9.0 mg/dL Normal 8.6-10.3 [facility] Comment on above: Performed By: #### C MP, LIPID, TSH3, A1C WTH eA, MG #### [place] [address] [place] Chloride [Moles/Vol] 106 mmol/L Normal 98-107 [facility] Comment on above: Performed By: #### C MP, LIPID, TSH3, A1C WTH eA, MG #### [address] CO2 [Moles/Vol] 24.6 mmol/L Normal 21.0-31.0 [facility] Comment on above: Performed By: #### C MP, LIPID, TSH3, A1C WTH eA, MG #### [facility] [address] Creatinine [Mass/Vol] 1.03 mg/dL Normal 0.70-1.30 [facility] Comment on above: Performed By: #### C MP, LIPID, TSH3, A1C WTH eA, MG #### [facility] [address] Creatinine Clr Calc Pharmacy 104.51 Normal [facility] Comment on above: Performed By: #### C MP, LIPID, TSH3, A1C WTH eA, MG #### [address] GFR/1.73 sq M.predicted MDRD (S/P/Bld) [Vol rate/Area] mL/min/{1.73_m2} Normal [facility] Comment on above: Performed By: #### C MP, LIPID, TSH3, A1C WTH eA, MG #### [address] Globulin (S) [Mass/Vol] 3.0 g/dL Normal [facility] Comment on above: Performed By: #### C MP, LIPID, TSH3, A1C WTH eA, MG #### [address] Glucose [Mass/Vol] 160 mg/dL High 70-100 [facility] Comment on above: Result Comment: [facility] Glucose Reference Range is dependent on time and content of last meal. Glucose of more than 200 mg/dL in a nonstressed, ambulatory subject supports the diagnosis of Diabetes Mellitus. ADA recommended reference range Performed By: #### C MP, LIPID, TSH3, A1C WTH eA, MG #### [address] Potassium [Moles/Vol] 4.3 mmol/L Normal 3.5-5.1 [facility] Comment on above: Performed By: #### C MP, LIPID, TSH3, A1C WTH eA, MG #### [place] [address] [place] Protein [Mass/Vol] 6.7 g/dL Normal 6.4-8.9 [facility] Comment on above: Performed By: #### C MP, LIPID, TSH3, A1C WTH eA, MG #### [facility] [address] Sodium [Moles/Vol] 136 mmol/L Normal 136-145 [facility] Comment on above: Performed By: #### C MP, LIPID, TSH3, A1C WTH eA, MG #### [facility] [address] Urea nitrogen [Mass/Vol] 12 mg/dL Normal 7-25 [facility] Comment on above: Performed By: #### C MP, LIPID, TSH3, A1C WTH eA, MG #### [facility] [address] ECG 12 lead ECGon 04-11-2024 ECG 12 lead ECG [facility] [place] [address] Electrocardiograph Report Signed Patient: Lyly Quinn MR#: [id number] : 1965 Acct:[id number] Age/Sex: 59 / M ADM Date: 04/10/24 Loc: Room: [address] [place] [address] Type: ADM INOo Attending Dr: Leslie Sanchez MD Ordering Provider: Leslie Sanchez MD Date of Service: 04/11/24 ECG/ECG 12 lead ECG: chest pain Copies to: Test Reason : Blood Pressure : */* mmHG Vent. Rate : 96 BPM Atrial Rate : 96 BPM P-R Int : 158 ms QRS Dur : 102 ms QT Int : 374 ms P-R-T Axes : 21 -18 13 degrees QTcB Int : 472 ms Normal sinus rhythm Incomplete right bundle branch block Borderline ECG When compared with ECG of 10-Apr-2024 14:41, No significant change was found Confirmed by SUYAPA ANSARI FACC, FAY ([id number]) on 04/13/2024 11:13:08 AM Referred By: Electronically Signed By: FAY DALE MD FACC Transcribed By: MUS Signed By Fay Dale MD, FACC 04/13/24 1113 Normal [facility] Glucose Poct Glucometerson 06-12-2023 Glucose [Mass/Vol] 178 mg/dL Normal [facility] Comment on above: Result Comment: [place] om Glucose Reference Range is dependent on time and content of last meal. Glucose of more than 200 mg/dL in a nonstressed, ambulatory subject supports the diagnosis of Diabetes Mellitus. PERFORMED BY: [place] [address] PATHOLOGIST [employer] ANCH[employer] BRANDON AVITIA M.D. Performed By: #### B GEOTECHNICAL ENGINEER, BMP, PT, CBC, DDIMER, HS TROP #### [address] Glucose [Mass/Vol] 105 mg/dL Normal [facility] Comment on above: Result Comment: [place] om Glucose Reference Range is dependent on time and content of last meal. Glucose of more than 200 mg/dL in a nonstressed, ambulatory subject supports the diagnosis of Diabetes Mellitus. PERFORMED BY: [place] [address] PATHOLOGIST [employer]CH[employer] BRANDON AVITIA M.D. Performed By: #### B GEOTECHNICAL ENGINEER, BMP, PT, CBC, DDIMER, HS TROP #### [address] Glucose [Mass/Vol] 124 mg/dL Normal [facility] Comment on above: Result Comment: [place] om Glucose Reference Range is dependent on time and content of last meal. Glucose of more than 200 mg/dL in a nonstressed, ambulatory subject supports the diagnosis of Diabetes Mellitus. PERFORMED BY: [place] [address] PATHOLOGIST [employer] BRANDON AVITIA M.D. Performed By: #### B GEOTECHNICAL ENGINEER, BMP, PT, CBC, DDIMER, HS TROP #### [place] [address] [place] Commemt1 Glu2: Cleaned Meter Normal [facility] Comment on above: Result Comment: PERF ORMED BY: [place] [address] PATHOLOGIST [employer] BRANDON AVITIA M.D. Performed By: #### B GEOTECHNICAL ENGINEER, BMP, PT, CBC, DDIMER, HS TROP #### [facility] [address] Glucose [Mass/Vol] 158 mg/dL Normal [facility] Comment on above: Result Comment: [place] Glucose Reference Range is dependent on time and content of last meal. Glucose of more than 200 mg/dL in a nonstressed, ambulatory subject supports the diagnosis of Diabetes Mellitus. Performed By: #### B GEOTECHNICAL ENGINEER, BMP, PT, CBC, DDIMER, HS TROP #### [facility] [address] Lipid Panelon 04-11-2024 Cholesterol [Mass/Vol] 140 mg/dL Normal 140-200 [facility] Comment on above: Result Comment: Chol less than 200 mg/dl low risk Chol 201-239 mg/dl borderline risk Chol 240 mg/dl and greater high risk Performed By: #### C MP, LIPID, TSH3, A1C WTH eA, MG #### [address] Cholesterol in HDL [Mass/Vol] 35 mg/dL Normal 23-92 [facility] Comment on above: Result Comment: HDL CHOL ATP-III CLASSIFICATION Cardiovascular Risk HDL > or equal to 60 mg/dL LOW HDL < 40 mg/dL HIGH Performed By: #### C MP, LIPID, TSH3, A1C WTH eA, MG #### [facility] [address] [place] [id number] [facility] Cholesterol.total/C holesterol in HDL [Mass ratio] 4.0 {ratio} Normal <5.0 [facility] Comment on above: Performed By: #### C MP, LIPID, TSH3, A1C WTH eA, MG #### [facility] [address] LDL Cholesterol,Calcula jorge 54 mg/dL Normal 0-100 [facility] Comment on above: Result Comment: LDL ATP III CLASSIFICATION LDL less than 100 mg/dL Optimal LDL 100-129 mg/dL Near or above optimal LDL 130-159 mg/dL Borderline high LDL 160-189 mg/dL High LDL greater than 189 mg/dL Very high Performed By: #### C MP, LIPID, TSH3, A1C WTH eA, MG #### [facility] [address] [place] [id number] [facility] Triglyceride w/Reflex 253 mg/dL High 0-149 [facility] Comment on above: Result Comment: TRIG ATP III CLASSIFICATION TRIG less than 150 mg/dL Normal TRIG 150-199 mg/dL Borderline high TRIG 200-500 mg/dL High TRIG greater than 500 mg/dL Very high Standard traceable to the Center for Disease Conrtrol and Prevention (CDC) test method. Performed By: #### C MP, LIPID, TSH3, A1C WTH eA, MG #### [facility] [address] [place] [id number] [facility] VLDL CHOLESTEROL 50 mg/dL Normal [facility] Comment on above: Performed By: #### C MP, LIPID, TSH3, A1C WTH eA, MG #### [facility] [address] [place] [id number] [facility] Magnesiumon 04-11-2024 Magnesium [Mass/Vol] 2.0 mg/dL Normal 1.9-2.7 [facility] Comment on above: Performed By: #### C MP, LIPID, TSH3, A1C WTH eA, MG #### [facility] [address] [place] [id number] [facility] Outside Recordson 04-11-2024 Outside Records [id number]#1.00OTGTI [facility] Outside Records [id number]#1.00OTGTI [facility] Rad - Other Radiology Report on 04-11-2024 Rad - Other Radiology Report [id number]#1.00OTGTI [facility] Thyroid Stimulating Hormoneo n 04-11-2024 TSH Qn 1.00 m[IU]/L Normal 0.45-5.33 [facility] Comment on above: Result Comment: PERF ORMED BY: [place] [address] PATHOLOGIST [employer] BRANDON AVITIA M.D. Performed By: #### B GEOTECHNICAL ENGINEER, BMP, PT, CBC, DDIMER, HS TROP #### [address] B-Type Natriuretic Peptideon 04-10-2024 Natriuretic peptide B (Bld) [Mass/Vol] 26.0 pg/mL Normal 5-100 [facility] Comment on above: Result Comment: PERF ORMED BY: [place] [address] PATHOLOGIST [employer] ANCH[employer] BRANDON AVITIA M.D. Performed By: #### B GEOTECHNICAL ENGINEER, BMP, PT, CBC, DDIMER, HS TROP #### [address] Basic Metabolic Panelon 03-20 Anion gap [Moles/Vol] 11.2 mmol/L Normal 6.0-15.0 [facility] Comment on above: Performed By: #### B GEOTECHNICAL ENGINEER, BMP, PT, CBC, DDIMER, HS TROP #### [address] Calcium [Mass/Vol] 10.0 mg/dL Normal 8.6-10.3 [facility] Comment on above: Performed By: #### B GEOTECHNICAL ENGINEER, BMP, PT, CBC, DDIMER, HS TROP #### [place] [address] [place] Chloride [Moles/Vol] 104 mmol/L Normal 98-107 [facility] Comment on above: Performed By: #### B GEOTECHNICAL ENGINEER, BMP, PT, CBC, DDIMER, HS TROP #### [address] CO2 [Moles/Vol] 22.5 mmol/L Normal 21.0-31.0 [facility] Comment on above: Performed By: #### B GEOTECHNICAL ENGINEER, BMP, PT, CBC, DDIMER, HS TROP #### [facility] [address] Creatinine [Mass/Vol] 0.82 mg/dL Normal 0.70-1.30 [facility] Comment on above: Performed By: #### B GEOTECHNICAL ENGINEER, BMP, PT, CBC, DDIMER, HS TROP #### [facility] 1111 [place] [address] [place] Creatinine Clr Calc Pharmacy 130.19 Normal [facility] Comment on above: Result Comment: PERF ORMED BY: [place] [address] PATHOLOGIST [employer]OR[employer] BRANDON AVITIA M.D. Performed By: #### B GEOTECHNICAL ENGINEER, BMP, PT, CBC, DDIMER, HS TROP #### [place] [address] [place] GFR/1.73 sq M.predicted MDRD (S/P/Bld) [Vol rate/Area] mL/min/{1.73_m2} Normal [facility] Comment on above: Performed By: #### B GEOTECHNICAL ENGINEER, BMP, PT, CBC, DDIMER, HS TROP #### [address] Glucose [Mass/Vol] 143 mg/dL High 70-100 [facility] Comment on above: Result Comment: [place] Glucose Reference Range is dependent on time and content of last meal. Glucose of more than 200 mg/dL in a nonstressed, ambulatory subject supports the diagnosis of Diabetes Mellitus. ADA recommended reference range Performed By: #### B GEOTECHNICAL ENGINEER, BMP, PT, CBC, DDIMER, HS TROP #### [facility] [address] Potassium [Moles/Vol] 3.7 mmol/L Normal 3.5-5.1 [facility] Comment on above: Performed By: #### B GEOTECHNICAL ENGINEER, BMP, PT, CBC, DDIMER, HS TROP #### [facility] [address] Sodium [Moles/Vol] 134 mmol/L Low 136-145 [facility] Comment on above: Performed By: #### B GEOTECHNICAL ENGINEER, BMP, PT, CBC, DDIMER, HS TROP #### [address] Urea nitrogen [Mass/Vol] 10 mg/dL Normal 7-25 [facility] Comment on above: Performed By: #### B GEOTECHNICAL ENGINEER, BMP, PT, CBC, DDIMER, HS TROP #### [address] Complete Blood Count Auto Di ffon 04-10-2024 Basophils (Bld) [#/Vol] 0.1 10*3/uL Normal 0.0-0.2 [facility] Comment on above: Result Comment: PERF ORMED BY: [place] [address] PATHOLOGIST [employer]OR[employer] BRANDON AVITIA M.D. Performed By: #### B GEOTECHNICAL ENGINEER, BMP, PT, CBC, DDIMER, HS TROP #### [address] Basophils/100 WBC (Bld) 1.2 % Normal . [facility] Comment on above: Performed By: #### B GEOTECHNICAL ENGINEER, BMP, PT, CBC, DDIMER, HS TROP #### [address] Eosinophils (Bld) [#/Vol] 0.1 10*3/uL Normal 0.0-0.45 [facility] Comment on above: Performed By: #### B GEOTECHNICAL ENGINEER, BMP, PT, CBC, DDIMER, HS TROP #### [address] Eosinophils/100 WBC (Bld) 1.3 % Normal . [facility] Comment on above: Performed By: #### B GEOTECHNICAL ENGINEER, BMP, PT, CBC, DDIMER, HS TROP #### [address] Erythrocyte distribution width (RBC) [Ratio] 12.8 % Normal 12.0-14.8 [facility] Comment on above: Performed By: #### B GEOTECHNICAL ENGINEER, BMP, PT, CBC, DDIMER, HS TROP #### [address] Hematocrit (Bld) [Volume fraction] 44.8 % Normal 38.8-50.0 [facility] Comment on above: Performed By: #### B GEOTECHNICAL ENGINEER, BMP, PT, CBC, DDIMER, HS TROP #### [address] Hemoglobin (Bld) [Mass/Vol] 15.4 g/dL Normal 13.0-17.0 [facility] Comment on above: Performed By: #### B GEOTECHNICAL ENGINEER, BMP, PT, CBC, DDIMER, HS TROP #### [address] Lymphocytes (Bld) [#/Vol] 3.5 10*3/uL Normal 1.00-4.8 [facility] Comment on above: Performed By: #### B GEOTECHNICAL ENGINEER, BMP, PT, CBC, DDIMER, HS TROP #### [address] Lymphocytes/100 WBC (Bld) 40.9 % Normal . [facility] Comment on above: Performed By: #### B GEOTECHNICAL ENGINEER, BMP, PT, CBC, DDIMER, HS TROP #### [address] MCH (RBC) [Entitic mass] 31.1 pg Normal 27.5-35.2 [facility] Comment on above: Performed By: #### B GEOTECHNICAL ENGINEER, BMP, PT, CBC, DDIMER, HS TROP #### [address] MCV (RBC) [Entitic vol] 90.4 fL Normal 83.5-101 [facility] Comment on above: Performed By: #### B GEOTECHNICAL ENGINEER, BMP, PT, CBC, DDIMER, HS TROP #### [address] Mean Corpuscular HGB Conc 34.4 g/dL Normal 32.5-35.6 [facility] Comment on above: Performed By: #### B GEOTECHNICAL ENGINEER, BMP, PT, CBC, DDIMER, HS TROP #### [facility] [address] [place] [address] [place] Monocytes (Bld) [#/Vol] 0.5 10*3/uL Normal 0.0-0.8 [facility] Comment on above: Performed By: #### B GEOTECHNICAL ENGINEER, BMP, PT, CBC, DDIMER, HS TROP #### [facility] [address] [place] [address] [place] Monocytes/100 WBC (Bld) 21.73 % High 0.00-20.00 [facility] Comment on above: Result Comment: For adults in ED, MDW > 20.0 may be associated with a higher risk of sepsis during the first 12 hrs of hospital admission Performed By: #### B GEOTECHNICAL ENGINEER, BMP, PT, CBC, DDIMER, HS TROP #### [facility] [address] [place] [address] [place] Monocytes/100 WBC (Bld) 5.6 % Normal . [facility] Comment on above: Performed By: #### B GEOTECHNICAL ENGINEER, BMP, PT, CBC, DDIMER, HS TROP #### [place] [address] [place] Neutrophils (Bld) [#/Vol] 4.3 10*3/uL Normal 1.8-7.7 [facility] Comment on above: Performed By: #### B GEOTECHNICAL ENGINEER, BMP, PT, CBC, DDIMER, HS TROP #### [place] [address] [place] Neutrophils/100 WBC (Bld) 51.0 % Normal . [facility] Comment on above: Performed By: #### B GEOTECHNICAL ENGINEER, BMP, PT, CBC, DDIMER, HS TROP #### [facility] [address] [place] [address] [place] NRBC% 0.1 /100{WBC} Normal 0-0.5 [facility] Comment on above: Performed By: #### B GEOTECHNICAL ENGINEER, BMP, PT, CBC, DDIMER, HS TROP #### [facility] [address] [place] [address] [place] Platelet mean volume (Bld) [Entitic vol] 7.4 fL Normal 6.6-10.1 [facility] Comment on above: Performed By: #### B GEOTECHNICAL ENGINEER, BMP, PT, CBC, DDIMER, HS TROP #### [address] Platelets (Bld) [#/Vol] 293 10*3/uL Normal 150-450 [facility] Comment on above: Performed By: #### B GEOTECHNICAL ENGINEER, BMP, PT, CBC, DDIMER, HS TROP #### [address] RBC (Bld) [#/Vol] 4.96 10*6/uL Normal 3.90-5.60 [facility] Comment on above: Performed By: #### B GEOTECHNICAL ENGINEER, BMP, PT, CBC, DDIMER, HS TROP #### [address] WBC (Bld) [#/Vol] 8.5 10*3/uL Normal 4.1-10.5 [facility] Comment on above: Performed By: #### B GEOTECHNICAL ENGINEER, BMP, PT, CBC, DDIMER, HS TROP #### [address] D-Dimer High Sensitivityon 1 06-11-2023 D-Dimer High Sensitivity <200 Normal 0-243 [facility] Comment on above: Result Comment: The reference range for D-dimer is <243 ng/mL D-dimer units. D-dimer results must be used in conjunction with a clinical pretest probability (PTP) assessment model for deep vein thrombosis (DVT) and pulmonary embolism (PE). Results <230 ng/mL d-dimer units can be used as a negative predictor in patients with low or moderate probability for DVT/PE. Results above the exclusion threshold of 230 ng/ml D-dimer units for DVT/PE may indicate the need for further diagnostic testing. D-Dimer can be increased in hospitalized patients due to co-morbid conditions. A hematocrit value greater than 55% may lead to inaccurate results in coagulation testing. Patients having hematocrit values >55% require a special collection tube for coagulation studies. Please contact the laboratory at [phone] for redraw instructions. PERFORMED BY: [address] [address] PATHOLOGIST [employer]OR[employer] ANCHOR BRANDON AVITIA M.D. Performed By: #### B GEOTECHNICAL ENGINEER, BMP, PT, CBC, DDIMER, HS TROP #### [place] [id number] [facility] ECG 12 lead ECGon 04-10-2024 ECG 12 lead ECG [facility] [place] [address] Electrocardiograph Report Signed Patient: Lyly Quinn MR#: [id number] : 1965 Acct:[id number] Age/Sex: 59 / M ADM Date: 04/10/24 Loc: ER Room: Type: [facility] ER Attending Dr: Ordering Provider: Des Contreras DO Date of Service: 04/10/24 ECG/ECG 12 lead ECG: Chest Pain Copies to: Test Reason : Blood Pressure : 114/75 mmHG Vent. Rate : 105 BPM Atrial Rate : 105 BPM P-R Int : 158 ms QRS Dur : 106 ms QT Int : 380 ms P-R-T Axes : 56 70 31 degrees QTcB Int : 502 ms Sinus tachycardia Confirmed by Brian BLANCHARD DO ([id number]) on 04/10/2024 3:39:55 PM Referred By: Electronically Signed By: Brian BLANCHARD DO Transcribed By: MUS Signed By Brian Blanchard DO 1 06/11/23 1539 Normal [facility] ECG 12 lead ECG [facility] [place] [address] Electrocardiograph Report Signed Patient: Lyly Quinn MR#: [id number] : 1965 Acct:[id number] Age/Sex: 59 / M ADM Date: 04/10/24 Loc: ER Room: Type: [facility] ER Attending Dr: Ordering Provider: Des Contreras DO Date of Service: 04/10/24 ECG/ECG 12 lead ECG: Chest Pain Copies to: Test Reason : Blood Pressure : */* mmHG Vent. Rate : 99 BPM Atrial Rate : 99 BPM P-R Int : 142 ms QRS Dur : 104 ms QT Int : 374 ms P-R-T Axes : 31 78 47 degrees QTcB Int : 479 ms Normal sinus rhythm Confirmed by Brian BLANCHARD DO ([id number]) on 04/10/2024 3:38:47 PM Referred By: Electronically Signed By: Brian BLANCHARD DO Transcribed By: MUS Signed By Brian Blanchard DO 1 06/11/23 1538 Normal [facility] Glucose Poct Glucometerson 1 06-11-2023 Commemt1 Glu2: Cleaned Meter Normal [facility] Comment on above: Result Comment: PERF ORMED BY: [address] [address] PATHOLOGIST [employer] BRANDON AVITIA M.D. Performed By: #### B GEOTECHNICAL ENGINEER, BMP, PT, CBC, DDIMER, HS TROP #### [place] [id number] [facility] Glucose [Mass/Vol] 151 mg/dL Normal [facility] Comment on above: Result Comment: [facility] Glucose Reference Range is dependent on time and content of last meal. Glucose of more than 200 mg/dL in a nonstressed, ambulatory subject supports the diagnosis of Diabetes Mellitus. Performed By: #### B GEOTECHNICAL ENGINEER, BMP, PT, CBC, DDIMER, HS TROP #### [place] [id number] [facility] Glucose [Mass/Vol] 136 mg/dL Normal [facility] Comment on above: Result Comment: [place] Glucose Reference Range is dependent on time and content of last meal. Glucose of more than 200 mg/dL in a nonstressed, ambulatory subject supports the diagnosis of Diabetes Mellitus. PERFORMED BY: [address] [address] PATHOLOGIST [employer] BRANDON AVITIA M.D. Performed By: #### B GEOTECHNICAL ENGINEER, BMP, PT, CBC, DDIMER, HS TROP #### [address] [address] [place] Outside Recordson 04-10-2024 Outside Records [id number]#1.00OTG TIFF Normal [facility] Outside Records [id number]#1.00OTG TIFF Normal [facility] Outside Records [id number]#1.00OTG TIFF Normal [facility] Outside Records [id number]#1.00OTG TIFF Normal [facility] Prothrombin Time INRon 04-10 INR Coag (PPP) [Relative time] 2.2 {INR} Normal [facility] Comment on above: Result Comment: INR Therapeutic Range A) Pre- and Peroperative OAT started two weeks before surgery. NOT HIP SURGERY: 1.5 - 2.5 HIP SURGERY: 2 - 3 B) Primary and secondary prevention of venous THROMBOSIS: 2 - 3 C) Active venous thrombosis, pulmonary embolism and prevention of recurrent venous thrombosis: 2 - 3 D) Prevention of arterial thromboembolism including patients with mechanical heart valves: 3 - 4.5 Performed By: #### B GEOTECHNICAL ENGINEER, BMP, PT, CBC, DDIMER, HS TROP #### [facility] [address] [place], [place] [address] PT Coag (PPP) [Time] 25.4 s High 9.0-12.9 [facility] Comment on above: Result Comment: A he matocrit value greater than 55% may lead to inaccurate results in coagulation testing. Patients having hematocrit values >55% require a special collection tube for coagulation studies. Please contact the laboratory at [phone] for redraw instructions. Performed By: #### B GEOTECHNICAL ENGINEER, BMP, PT, CBC, DDIMER, HS TROP #### [facility] [address] [place] [address] [facility] Rad - Other Radiology Report on 04-10-2024 Rad - Other Radiology Report [id number]#1.00OTG TIF Normal [facility] Troponin I High Sensitivityo n 04-10-2024 Troponin I High Sensitivity 3.2 pg/mL Normal 0.0-20.0 [facility] Comment on above: Result Comment: PERF ORMED BY: [facility] [address] [place] [address] PATHOLOGIST [employer]OR[employer] ANCH[employer] BRANDON AVITIA M.D. Performed By: #### B GEOTECHNICAL ENGINEER, BMP, PT, CBC, DDIMER, HS TROP #### [address] Troponin I High Sensitivity 3.1 pg/mL Normal 0.0-20.0 [facility] Comment on above: Result Comment: PERF ORMED BY: [place] [address] PATHOLOGIST [employer] BRANDON AVITIA M.D. Performed By: #### B GEOTECHNICAL ENGINEER, BMP, PT, CBC, DDIMER, HS TROP #### [address] Troponin I High Sensitivity 3.0 pg/mL Normal 0.0-20.0 [facility] Comment on above: Result Comment: PERF ORMED BY: [place] [address] PATHOLOGIST [employer]OR[employer] ANCH[employer] BRANDON AVITIA M.D. Performed By: #### B GEOTECHNICAL ENGINEER, BMP, PT, CBC, DDIMER, HS TROP #### [address] XR chest 1V portableon 04-10 XR chest 1V portable [facility] Main [place] [address] [place] [address] XRay Report Signed Patient: Lyly uQinn MR#: [id number] : 1965 Acct:[id number] Age/Sex: 59 / M ADM Date: 04/10/24 Loc: ER Room: Type: [facility] ER Attending Dr: Copies to: Des Contreras DO Ordering Provider: Des Contreras DO Date of Service: 04/10/24 XR/XR chest 1V portable: Chest Pain PORTABLE AP ERECT CHEST 1215 hours CLINICAL HISTORY: Midsternal chest pain. COMPARISON: 05/27/[address] 06/13/2019 There is shallow inspiration. The heart is within normal limits. There is no vascular congestion. No consolidation is noted. There is no effusion or pneumothorax. The osseous structures are intact. XR/XR chest 1V portable IMPRESSION: NO ACUTE FINDINGS Impression dictated by: Africa Soni M.D.04/10/2024 12:55 PM Dictation Location: [place] [address] Transcribed By: [facility] 04/10/24 1255 Dictated By: Africa Soni MD 04/10/24 1253 Signed By: 04/10/24 1255 Normal [facility] Outside Recordson 04-07-2024 Outside Records [id number]#1.00OTGTI [facility] Outside Records [id number]#1.00OTGTI [facility] Rad - Other Radiology Report on 04-06-2024 Rad - Other Radiology Report [id number]#1.00OTGT IFF [facility] Rad - Other Radiology Report on 04-04-2024 Rad - Other Radiology Report [id number]#1.00OTGTI FF [facility] Outside Recordson 04-03-2024 Outside Records [id number]#1.00OTGTI [facility] Diabetes Noteon 03-21-2024 Diabetes Note Patient scheduled [...] 10:55 EST] Erica Quiroz RN CDE BSN [facility] Coding Summaryon 03-13-2024 Coding Summary HTMLBase 64 CfdurocnKCa3iNa+PGhlYWQ+P M4EWINkT03lfPJurS9pS6VATT lOSywgQVBQTElOSyIgbmFtZT1 kaXNjZXJu IC8+UM2bYOOuLbqybHOsr8E8x BW1V34lvj0tLWiniQT2STDqJj Byvgsci1wgiIv6LYmgQmhiEvW t QLHyqN75UZX5uM53Kx97cPOkf GTou7janLh7GtTjIOPjIQF2tY zpZAida4LpYISuM03uhLPmn8F 6 FJMivLfsiKKwKzDzcGT1hZ8xZ Gmoeliub2krivzsKbt7qi45gI Gru7C8iKM2R2KlxcO6NEQrwUL g WtsitVZUvQ8tfwzqu6ofmhtyR cRgPXCgMGi2GFs4QUDaxRouAi JrKF67OXD9PAXuzeYbL7KpURH s xYbvLkX0k6X9Uq8BS8MRCtnvQ 1VNTUFSWTwvdGQ+SY19dz65C2 ZtUtqmXld1FRMxGQI2sGN1nH8 n BVStONlmd7M9mFY6W2XwwvZnw p5gn9akXYMpTVdiJ11yzSCoq0 N5ZLDzgJP9YNDbqWulJwPjxF5 3 Oyc+PGOctVrmy9YyMpdmy0pvb 3xfxDu9SgiaJCFovrYytKmxSH U8q4HnTe1uTUFkeBG8wXM2hI5 i NfKnJeO1XRpqZ721DvTidCEuN eksW19pY9LiaLP+ZLQiKoi2TT VzfXhkDM7uB7SmONMajmjuxJL m nZaoSX1aVIQkmspxTEJkdV3yZ JCsF5j7LnNiNiW0EOdyM1RjOP UsiiubSh34eO1nIvMcVlK7KWb u T8NzxzC9QNSnaDCfSSdxEOL3Z 71lj7W7CDRdZXCnHSZ8nPV6hW 1hbGlnbjogbGVmdDsgdmVydGl j YUedNYsrJ259NGElyLqtNaKiC GluZyBEYXRlOiAgMTEvMjUvMj AyNDwvdGQ+PIKsQEQ0rQcpURN n zGMvFXcpMj8cyUshsDpxXA6hM QMqiqopFZTmaO8aBWAyfKSonA hrNY9sMGQvyzbyu010KxByFFZ 0 ZNPheGXjG4MtrI6pGtFtNLUiJ HEvV0TupUKlYLboE488YRcnIk N6IDJigtXjS1XcOMOppGpcAfG 0 g7V1Ne6El5WmldcuY7QvzUKpL gIgUexgZGk6A1NdNiltzRN+PC 09ELPzKI49ZUs5RDB6tIgfSSs i OOCgD0SnoP1dIbEkUPViTJWeR yc+PHRhYmxlIHdpZHRoPScxMD CbMnUlxKcrYV8yXd7vPDMqZKJ v zZpwcFSbXiFmi2baCFBwDZnqT X6qoPtdD2QlmXH1YNNed4c8Zc 11J94rZ6SbaIY+BMSmpBN4aLQ 0 jW2tLjHnFsF2SAhdS931OeYuo YMpFxaqa5bhk2hoaVl5YnH9FD TxoaShhYtiNKM5s8GqHb32R91 s IHdpZHRoPSIxNSUiIHZhbGlnb d4zxT0lLe8+LLEupNY8vEK7iH 8iReUjJvK8PBenR047VwVpiUX v Ryquy1snz1qrjYm7NuWbRGSda aQarEgzLOH0y3RrSe55U0EhyV rfj6TeOiq7ag96mPMuo2F0qJJ 9 A6InVNRkvbuoyFMciYkyAT9eQ ERzgnpcOUHwmH7tYYYpD5e2Nl RmFuH8KHlkJ1GxfwD0OWNtvSW g UCRetIMEtD8fufgej3uighenX pFpJLNlQCr4MSb7BKFecIsnAb AbZPP9HmL2XLQ0pDQbjO8krHy n rluhuD9eJtt+VSN0rAJeyUYSG F3tTcwuzDD+WJTpOYR1oKphWX rqOUKtfK1mQMWcL6m9DtXnOhF 1 TTntW8VpybE0KTYbkXZhLMHnq XCSpB6tmrllu3hcunkvDpWcGA FnXZn0AVh0NGIkzBqoLxBnDGT 0 LfE1YXA0pPWnpK6jsDydpphcr G9wOyc+IwiueOufZDT4HUe7B2 MpSmn7TEBjhFyvLM6ojLIoHSn u Ws9clTmruQafWJ5wNYXrmkqes 053QtDhx1hdNAVfdBMkUIvhFQ M2S56eo4Q2CGZbYNOzZTM0oVE 4 wB9usRtdswpszTGxkUnxbxCuw RlhKAvyGCccD550OOLzwWajHl KlDUr9W5RzKbk8JWLslVvaXN3 n dEUmFBilQg6vqYdrzGpxDE5aH GParsbbk719GvVfz8ffZQUkfQ XsYRtbRGZ8Z91js7U1HYWcDXT w CKJ6jFK4hF9ueJohixfflKQow BufjcTrqRsbUWpjTHqiZ031ZS YnuPecObIrpKj4Y9ZnUzo1ZYT z iQpcPZ3elYXzRArfVp7wuFhey WswTU7sKTKlxchtr402CuKnd6 wyPIBxaKTlPEchESL7E63ne8P 6 ZYSdSWOaHQC5mHX1gS8rhMydv jogbGVmdDsgdmVydGljYWwtYW ahM371UTEkzOvwJwHokKxtyrW g HAjeMSg4R7BtVqktlIK+PC90Y WWoKL04jUWpcMJvg9exxEa6Qy CfYBJwRPW4wMgeEPeez4BqMWK t K76yvWTlx0I6TVNlnGxitYLwA iMpaCU5vZ0kARglqglhj2bplh hgFmweh4ilgr34cK69Z67tVGw p TXZvHBBfUWJmNVNrgYhkkl5hn G9wIi8+SKCipPF2vSC0iD9fUF SmWeC2STmkJ509BfQnlSWmKoi j v8hyb5vejYg7GoP8AKHbjgTkg GrbHSX0t8TpBa82M72cPCcyMW IqRVWhUHEdDUUbaBfjyc5zsR4 w Ii8+ZKZhjPJ0uGW5qH9mFzNpZ fO1QWezB065OzVulYIjCoheH8 3jE7VpvJK+FPWpTum5FQOxmQv s GS9weDVkQUzyQe4vNYP5DsOfY xOjYYnuT7PdLHOuemtizcswaI X2WGCzUDSobN23Eu2leVyeXAG w tEFTwX7iuhbyk8icqovkUdMkM TDwCUg9QDq4RBCptPdkDyCmLR J4GoY1VQM5hNGqxP9luBwgpdz g hD4kO0BpZREtihdwJy11zG0kB hItKzZ7IXdwKrg+XaqAV3BySF ZJJJ7kU6qVPGoFAFgikUZ+PHR k UJJ0aOvmIFxpVDJxsL3aNYDoR 1f9VuTjUaY5BOedX2RkSLZhst ghLm67mA2jFwOlXcU5KGufC8E v fnL1ADXkuENuBBzvIYW9Q77ys 8W6FPAyAKEnYUW0dVX2xX8nyX lnbjogbGVmdDsgdmVydGljYWw t NHazP092ADTvcChxTiSrWeT2J zR9EmC8O5MeUbq9MATpdOdaZA 5moGRwDMcgBq8ulDvkuNciQN7 w ALQyyfhgDOZetU5aBGTnyVXzk ZvwBS3hHLSwgbjio466DqPhHZ Q6NYTklVNgY8GkwJ0rWeEjYEC w LSYyI2AojMFjWGwcH459UYoyX tZ9RSGixlLpB3IxGJVyyXkdNt G7p0E0Wx69UoKSLZEaqthcyXQ + YERdSXF0rBxvKTezCVLvcH0tM GRrN4l0RoQlIdB8ZCxdS2YfJA FpdgtwNi15aN5mAiCeIlN9CHn u N1FlrwU1UWIveYTuHSqoQJH4P 88ol4E8EQBwWGPcFVC1rRH9qS 1hbGlnbjogbGVmdDsgdmVydGl j IZccXZmcO541PEWbxNhfPt3NH HC0G3VrVim4FWTsfSftAI1paY LmJLehSk7ooXumsNdvWF1pPBQ p abaaYCNbbI7vKBBtbDVynTfvD S3qSUHbuylai304LmZjBLK4QB ZfvCDaL5XvlM8rYkVgXBGjOSC w J7FdgYNsRCpgI813AEyiAdX6U HIsyyXnH9XvGEUmgNfuIsB2j8 S2Yz8TWYY4npPeqvleV0V4oEY 0 aWVudDwvdGQ+VP45sw81P1BrQ wlbKbf8WOFpUFY7oAX2aO1vFX HbTYsqc9E2nNI3E7McvfIhuw6 j q5dfFBVmHNlwJ22cqQPwi4A5N IKqnBN6OKRusPveIfYxwR03La c+PIInbDgjn0XyBesze8cum3b k dWv2JwZuGMHvfhOebPwlWGA4u 8WbVs24Q46sPCaiAPQlCHSkRN XuTQFshZpkyr1ydO9dXs8+PGN v jWY3oJD1mV5eBmCtQtF4NNyxT 587MdXhfLIhRrifx0jhn4jwwF w9NsKqEGMfemRhtWhwNVU2v2Z i Ou21M6LuoAhdz4EkQol3cj76y JPhp4D4wRO9N9AfDUMjtinyyH OnuJjxFV0kHGGzxgdbQMMosY7 n YEVxD3y7ZxGmVhS3CKnoB1Gtp cH7QFForDQpTRUcgDLYjX0gme wxc7jigxrlHwCzSBHsYXz2WIv 0 DHIexTyjGkImLIT3XxK7KNB4v DNixD5ixKivkwpvqW9aBpp+UG f7k3uouKPjEV7ckXW6IV77RB5 8 dHZen2V2iXZ6H0ZiGPFkiatap cehgWU1OZJrNUBwoB98Ny9peX iqWg7dUTHnAQE5XJFuoZGfT2U v mZ6rFbHlNBWvUWVqB5EnhNHdV FnuU781OFcvHjU9VUVisjDoC1 NdCTDhjEyvKvI9k3D4Bj3ZLV8 6 DJ85YO86lOYuk1K6zYT8C4AmT UHskqsqkkqecDG5BFDhPAMacZ 46Yj5skHihYt4yVREyWUG9LHJ p iYJwR8TslM8vSfVgSDJpEBYtW 5NwyHZkDFloK981JUynYmH6WF CyamWqN9SlSSHipFreTxM9x6J 7 Of9BMv14TV22ST44qXAmp7N4x EC8A1CrPPCwvnjukgjtpER0HK IiXJMrsF52Oe6wtUmxEn3wALM x BLC9PDHorUQoB4PurN7zQvEvM RVkWMCkY6WldUXvJVuvU582YX tvIoY1NOAtblCbN8RyJMXtrAc u GlJ5q0D9Ev4GJQxzpvu0A8WuW jwvdHI+UH69HSZkRK26yEEaoE Eja7olzIn7SgZgYKSiVMH6zNh l PSd (more content not included)... [facility] Provider Orderson 02-11-2024 Provider Orders [id number]#1.00OTGTIF F [facility] Lab - Other Lab Resultson Lab - Other Lab Results [id number][facility] Report on 02-04-2024 Rad - Other Radiology Report [id number][facility]on 09-23-2023 Coding Summary HTMLBase 64 CfuwamclZIi1kEi+PGhlYWQ+P Y7LFFDeG55wkXThzU8tB4AOXE lOSywgQVBQTElOSyIgbmFtZT1 kaXNjZXJu IC8+QR4eDGZqVepygNZdf9M6k ZA4A02rgp9iJDozuUL8HEHjEj Wauxedu7mjdDb5CJoxVmxiVoS t CZKntP05PBY7mC84Jo74hHMex KEqi6khyQu2FsUtDHGgDBY2sQ dnGPvbu6LzVHUbQ66kkBIzz7V 6 YQEvxJcwePXhPkApeIN0pL6zJ Xxskbjjd1rysiuhWey8zb12sS Dgd4O7iKW2B6AontO1WSQbeSP g TsnirEBDiJ0tiwieq7lfuzxkQ pMyYZPkNNz8HHz6QZAeeAgcBq XrNQ26MDR1LDAwzbLkF5DiHRG s lJteJfU7k6N6Qd2US6GHXfyzW 1VNTUFSWTwvdGQ+HU80bw95C4 QhVjvbAzz0HMAvWZH2vIU0xF2 n TLNtBDixv7T9aFR3B6XmqrHix g9bw8oyOXXiPRguX90hwBYqy1 W9FPDqeKT8RAZknAjaKuDcnV6 3 Oyc+RUZhqUjku7GqJhhhx7sqr 6xvyBy8JdvtPYIndpVlcOrzVM R2o2CxCh0gGPWgdWZ7dZA8bK3 i BrXuLeD9ONwmR081QuNsrINyU wrqG94lX1RqcFJ+VHWuVps0US GjjRtlNK9pM7IvMBWhrdciqPO m nIkyCL7sXCPqgrpsGXIhtR7wB BKvF8p0KtReLwT8HMckW5RtNT QokwkoMt89jL6dWoKkUzY2IDj u P3GgrgD5INUbiQNcLZupAGA2G 11sn1T0FUWfIEDrWNJ5eDH1lW 1hbGlnbjogbGVmdDsgdmVydGl j QKuhOFbyW184ZTMdlPbnXxEmB GluZyBEYXRlOiAgMDYvMDYvMj AyNDwvdGQ+XZAbKIW9uVmlSCX n iDRuCWanNp5oqBxgaNdbXS2uV GPgloioAZElpO8hLOPsdQQcuJ ggBS7uBPEpuqpsn008ZhVyIUB 0 FLJvqXWsX3LthW4nRvRtROAbM DGhI3GlcPFfBCiaD354IBchCa R0BWZjjgUmT0WhRZTafFtjExO 0 u9U6Be9Dc0NtuimvJ3IzwZGtH aGrDepwUVo4J7JvTxqreBF+PC 59GHAgAR14EDk2TJK2oNbkWXp i XWLuH5DvtL4fZbYsXEErRHMvC yc+PHRhYmxlIHdpZHRoPScxMD SbMwVlnQhjYG2zXc3wPTDrGIN v rOzmbJAnJwGyc6rmUYNpHLidI T2iqLsuG0OfgWZ2AGFkf7s5Uh 07X66wU3BweXZ+BOSwdVT0vAN 0 aR6cPrLnAxR3ZHkeW354HsDjy GRbGryus3dzn9cbzDb1NsP2AR SbukYghGwyCYN5w6LpPg29Z50 s IHdpZHRoPSIxNSUiIHZhbGlnb p3xcM4jAj3+JHSkdGQ2zWT5dY 9aWpHlZoO9OZelT641ZlNvaUA v Mfbnz6mys5iyeCd9HxLnIWPja fVmkCrgPGO0o6XyYg92A7LdoY anh5GoYob9hz46jWPkh4L3oOD 9 F2AuFQKtlkuijMFpeEdlUP6jS RCrmedqWRBxnU3eXTZcQ9j2Me UoFyI1IPgiC7KmbkZ3LDOepMY g NGRcrZLEsF7hiljog5siafhhD zIiEFKfVGr4JKl5AAKtyQhyCg CpZUO6ThE9VSY6dNPurB2bgZn n ksrrpW7bEmm+HKQ8vVVddBBDR F7sAebgoSB+WGLoEUZ0qQdeCI ncPSSirI9uNMEwX8h0IgJaLpO 1 IWlbP4QdavY6IMFluOGbKXXoe NBUmN3xypsno6sfhfqzGfMsUO GzGNy1TVy3PIIcaTfzTxRtYSA 0 OzD6SYQ6zBPksH3hnFhebjfms G9wOyc+BbdasXhoWKJ0UXt3U7 RlOoo1BBCufZllSM0scSCfUZt u Xf7naKgulGiwJN2gMMMkvasjf 849YmHby3zrTRAfiHVsFFyyJL I5G71sz8P5QTGcUNUlMQQ1rUW 4 lW0jhCajjigddDGhpFsmizNsm TerBChuOJwoF132PVRlsDqoNo ZzKVg5O6FnAqe8YZZyeVzyLV9 n rZFqTZqpDl8pmRximYnySY3gV WIwfeofk486GoTzp2yuUCZesV AlOKiyFOQ7B05qo4O5WFHeJZJ w WDG9pLP8bL3piLedtwrpvROfq OyyrmBlrUloKZjnNVndW447EJ XkvErtWoOzhKh6A2VoJdn3UNP z uKstYB5gdZBcTTbyKj4njOpgv ApwTP2eCYYngkijw408KdXyp1 yhRPNekWEjOTlhZVW0O72vu4B 6 JPLeYUArGIY4qWJ4zK8guIftl jogbGVmdDsgdmVydGljYWwtYW iqF420NMQjdCqaXnUxjZfxjdI g ZEnsOVa3L5VgHythmDG+PC90Y IGaPU20eHNneKPsb2vvlYa9Wf WpYLTkNVJ4wXlqKEvok3EnRSN t A10uiLVbx0V6XNHbbIjmfDKzO lHdlFG9tB7pEStaziryj6ngat tgOwter9dfds39yK38W34mPMp p XOTmEHKzXPXmRWHgsAngfx7vm G9wIi8+JFYbnMU6vNI3zY3hWE DeVrZ6LKcwX216EjCnnLUvLzj j a0vsl0mygUb0YxM3LZPclgSpy RyoIVV5n1EeTh63V62mWKatLR YeJYRbOUKqDHJtpNmpcw5voI3 w Ii8+OBRipMP6xHR9aE9tSyOcK yJ9CEopA002YsYytWLnPeygV4 4rA7WlhJM+JLJjRzh8ZTVyyLa s CK0xdHIhMCgcBk9sYZJ1WrRuC eQiZDokA0HfUNTnywgbsczsfZ Y2CQCgOYUrrO40My3zlSspBIY w mILAeU4kfbuwr1tvubmnDxCvL LJyEXj2HPc4LJMmhQmjBlVzGT R1EgU2MBR2zPQdsY7epAgrdfw g rY4gG2NmXYGneylsEj59wN8gV yTlKbC7JUqmMwc+OdjZR3ZnUY TYPC4fWubqmOW+LHQmPZP1pFu l JAueFQIzaT0vIPDxS5j5YtGjZ vM5BZkfQ1GpJVMmmdbwAa85hJ 8xLaBxQuL8MMgwF5ScfpT4EVE w mRRfDHmfSJZ2C27bj0X4DEDzX HUqACM0bCK0lN2pnCtggwzsvN FjiQgugeYwsKkpFDyaHHuzE91 6 MDEqcLdhGvCbLmA9DnO2ZdS6Q 3NsDoo5TCZiuMkvZK4ntZRyBP giQs8txYqoyGjtUK3mUWRowrr w XQDnhG4iYQNdvUOgkDxeYD0oG ZGelurar033VjRnBCI8WBTefJ ZcE9IijL3cPdYxKRLbGSMjN9W l hQDoNAvlR213UCxwRkS6LJSoj iBsH0AdBHCgvFrdWaR9y0M5Qb 41NyBZZWFyczwvdGQ+PHRkIHN 0 gQuwZYzwKXWioB3uYQQoE3u9F jIdUvL2DAqkP6YrZJJjqsbhSr 67zW0bRyOfUsG3TDutZ7JemkD 6 MDPkeDEiEXjpQJI7B34ri7D3Q EGpLJFtPMK0cKB5zJ0brLiikg ogbGVmdDsgdmVydGljYWwtYWx p S602TBGujGjlPz5IYMR1J8BvW ax7MNBfyDbuBK8fsTBxPMhlAi 2dlDkdvCaeVO1tESVnfjwfZLH k eP4hPYMdvREqiLzoYD5jCFUyk dtes782RlMhHVM7XJQvwPMvS1 NxvY8nZiIqLYLtFTYfR6KsjZA t EBugI292MWbyJiU2LHDvrhQsT 6AuXPDyiNsbJsG9g8J0Io0LAN Y7hbZrunhfE2W9rCZ3xNFjbCe v dGQ+RH50gk48T3SjKvobOox0X FSmAAC3lRD6dW1uOULhIUbyx2 E6xDQ1R1EailFkkw4uq9jhFIB z FUjkP93jbCMgv2N1KCZxfVV7U NUlbImaApJzuK26Hag+PGNvbG hlw3RqMebyv8rrm7ixdQw5KkF w LPBsimLsiIvdHPR1j8KsUc18G 29sIHdpZHRoPSIzMCUiIHZhbG uetl0swS3oRm4+FNLmvPG7eQS 0 sU1tLeAaXjU4WMcoC357CvHzw HSyScurr8oqr8dkdEi3XhNdUD UfwsPnfNftRKT5d5DpSd22Q7H v xKkfc6UiMie6sp28aTLar8W2h RX2Z7DlFYIhgboviENdmZbnJU 4oPBPbsmoxGBFdzZ7lTTEgQ5v 0 DbKvRaR5AFxrW5PxbhJ6KURne EOrAYRcmUBAzC0zthqoy0cfsf rrGdJgJNVhBQt5POi7DWYzyNb u CvOkCTV3CmZ4VXY2lOCstA4sn SmxebdjqQ3cVdd+KSi3w2vvsX YzGT0mjEU1FE32FL30qCXbu8Z 5 sSF0R4EjGSJlpnypumdoqCI6Y OCuTTAqbF16Rb5vdIibWx9qRZ AuADX8MECgbXUyI9XmmY7fMvQ j DNHlQUEjC4KbeUNeVEopS742F JgiRoN0KITwysMgV8ZvIKLxcG vbXfD8n3O5Wz1RFE88MT38OY5 8 zGZwy2C7cND4I7TwQOUnctwgq bwvrXU6WUUnMMTeeE73Py7rlX qvOb0gESWbFON2SIIxwOOmE4W v kO0lMtAqYISdYBVwV7AdnSBpI ZmzU616RAbzSnI6NMGtwmNqV0 FlLRXrgHrwRmY6t6L6Nd1IXn5 6 MB53FA58rLAbt4H2zXA9N4RwZ UJwkxvufazncMV3MJDsFBMmzW 66Rt9pqRneXw5lMZRtZIO5FGN p hDItN5OdtN3mXmLjSGMuNXOeG 4UclORaZUljF297BZkiVtH8VZ YnabWgS9FlOGRrpIghZyM1x7D 7 Dd2OBQrcszs1X1ZxJsybtKY+P S52QFOrOX70oECzyEGjn4mbkL w4AdOyAKMdKLS1lKliHWbia2B k ZXI (more content not included)... [facility] Outside Recordson 09-17-2023 Outside Records [id number]#1.00OTGT IFF [facility] XR hip RT min 2V(w/wo pelvis )*on 09-15-2023 XR hip RT min 2V(w/wo pelvis)* [facility] [address] [place] [address] XRay Report Signed Patient: Lyly Quinn MR#: [id number] : 1965 Acct:[id number] Age/Sex: 58 / M ADM Date: 09/15/23 [...] Terrence Basurto M.D.09/15/2023 3:16 PM Dictation Location: [place] [address] Transcribed By: [facility] 09/15/23 1516 Dictated By: Terrence Basurto II, MD 09/15/23 1515 Signed By: 09/15/23 1516 Normal [facility] XR lumbar spine AP/LAT/FLX/E XTon 09-15-2023 XR lumbar spine AP/LAT/FLX/EXT [facility] [address] [place] [address] XRay Report Signed Patient: Lyly Quinn MR#: [id number] : 1965 Acct:[id number] Age/Sex: 58 / M ADM Date: 09/15/23 Loc: [facility] Room: Type: REG CLI Attending Dr: Charles [...] Terrence Basurto M.D.09/15/2023 3:19 PM Dictation Location: [place] [address] Transcribed By: [facility] 09/15/23 1519 Dictated By: Terrence Basurto II, MD 09/15/23 151 Signed By: 09/15/23 1519 Normal [facility] ED Note - Provideron 024 ED Note - Provider [id number]#1.00OTGT IFF Normal [facility] Lab - Other Lab Resultson Lab - Other Lab Results [id number]#1.00OTGT IFF Normal [facility] Outside Recordson 09-08-2023 Outside Records [id number]#1.00OTGTIF F [facility] Provider Orderson 08-26-2023 Provider Orders [id number]#1.00OTGT IFF [facility] Outside Recordson 08-09-2023 Outside Records [id number]#1.00OTGTIFF Normal [facility] NR MRI L-SPINE WOon 05-12-19 NR MRI L-SPINE WO Patient Name: LYLY QUINN STUDY: MRI L-SPINE WO; 05/12/2022 8:35 am INDICATION: acute right foot drop, previous surgery, had MRI 2 weeks ago with insufficient metal reduction unable to assess junctional levels M96.1: Lumbar postlaminectomy syndrome M21.371: Right foot drop. COMPARISON: Outside hospital MRI L-spine dated 04/30/2022 ACCESSION NUMBER(S): [id number] ORDERING CLINICIAN: BEE BLACKMON TECHNIQUE: Sagittal T1, [...] Alvarado. Electronically signed by: DILMA VERA MD [facility] MRI Lumbar Spine w/oon 04-30 MRI [...] by Carlos Hayward on 05/01/2022 0917 Normal [facility] [employer] Established Visit (Orthopaed ic Surgery)on 04-27-2022 Established [...] is going to do this in the [facility], [...] 01/07/2021 10:40:28 AM Current Meds Medication NameInstruction [id number]-[id number] 50-300-40 MG Oral CapsuleTAKE 1 CAPSULE BY [...] Apr 27 2022 10:06AM EST (Author) Normal [employer] CBC AUTO DIFFon 04-14-2022 BASO # 0.0 103/ul Normal 0.0-0.1 [facility] Comment on above: Performed By: #### C BC #### [facility] [address] [place] [address] [address] Devonte Rivas Basophils/100 WBC (Bld) 0.4 % Normal 0.2-2.0 [facility] Comment on above: Performed By: #### C BC #### [facility] [address] [place] [address] [address] Devonte Rivas EO # 0.1 103/ul Normal 0.0-0.7 [facility] Comment on above: Performed By: #### C BC #### [facility] [address] [place] [address] [address] Devonte Rivas Eosinophils/100 WBC (Bld) 0.9 % Normal 0.9-7.0 [facility] Comment on above: Performed By: #### C BC #### [facility] [address] [place] [address] Dr. Devonte Rivas Erythrocyte distribution width (RBC) [Ratio] 12.4 % Normal 11.0-15.0 [facility] Comment on above: Performed By: #### C BC #### [facility] [address] [place] [address] [address] Devonte Rivas Hematocrit (Bld) [Volume fraction] 42.4 % Normal 42.0-54.0 [facility] Comment on above: Performed By: #### C BC #### [facility] [address] [place] [address] [address] Devonte Rivas Hemoglobin (Bld) [Mass/Vol] 14.8 g/dL Normal 14.0-18.0 [facility] Comment on above: Performed By: #### C BC #### [facility] [address] [place] [address] [address] Devonte Rivas IG # 0.03 10e3/ul Normal 0.00-0.03 [facility] Comment on above: Performed By: #### C BC #### [facility] [address] [place] [address] Dr. Devonte Rivas IG % 0.6 % Critically high 0.0-0.5 [facility] Comment on above: Performed By: #### C BC #### [facility] [address] [address] [address] Devonte Rivas LYMPH # 1.7 103/ul Normal 1.2-3.8 [facility] Comment on above: Performed By: #### C BC #### [facility] [address] [place] [address] Dr. Devonte Rivas Lymphocytes/100 WBC (Bld) 31.6 % Normal 20.5-60.0 [facility] Comment on above: Performed By: #### C BC #### [facility] [address] [place] [address] Dr. Devonte Rivas MANUAL DIFF REQ NO Normal [facility] Comment on above: Performed By: #### C BC #### [facility] [address] [place] [address] Dr. Devonte Rivas MCH (RBC) [Entitic mass] 31.3 pg Normal 25.9-34.0 [facility] Comment on above: Performed By: #### C BC #### [facility] [address] [place] [address] [address] Devonet Rivas MCHC (RBC) [Mass/Vol] 34.9 g/dL Normal 29.9-35.2 [facility] Comment on above: Performed By: #### C BC #### [facility] [address] [place] [address] [address] Devonte Rivas MCV (RBC) [Entitic vol] 89.6 fL Normal 80.0-94.0 [facility] Comment on above: Performed By: #### C BC #### [facility] [address] [place] [address] [address] Devonte Rivas MONO # 0.9 103/ul Critically high 0.3-0.8 [facility] Comment on above: Performed By: #### C BC #### [facility] [address] [place] [address] Dr. Devonte Rivas Monocytes/100 WBC (Bld) 15.6 % Critically high 1.7-12.0 [facility] Comment on above: Performed By: #### C BC #### [facility] [address] [place] [address] [address] Devonte Rivas NEUT # 2.8 103/ul Normal 1.4-6.5 [facility] Comment on above: Performed By: #### C BC #### [facility] [address] [place] [address] Dr. Devonte Rivas Neutrophils/100 WBC (Bld) 50.9 % Normal 43.0-75.0 [facility] Comment on above: Performed By: #### C BC #### [facility] [address] [place] [address] [address] Devonte Rivas Platelet mean volume (Bld) [Entitic vol] 9.4 fL Critically low 9.5-13.5 [facility] Comment on above: Performed By: #### C BC #### [facility] [address] [place] [address] [address] Devonte Rivas PLT 194 103/ul Normal 150-450 [facility] Comment on above: Performed By: #### C BC #### [facility] [address] [place], [place] [address] Dr. Devonte Rivas RBC 4.73 106/ul Normal 4.70-6.10 [facility] Comment on above: Performed By: #### C BC #### [facility] [address] [place], [place] [address] Dr. Devonte Rivas WBC 5.4 103/ul Normal 4.0-11.0 [facility] Comment on above: Performed By: #### C BC #### [facility] [address] [place], [place] [address] Dr. Devonte Rivas CTA CHEST WO W [...] DANIEL BENITEZ Date: 2022-04-14 10:29 Normal [facility] Covid-19 PCR (CVDTBH)on 03-20 SARS-CoV-2 (COVID-19) RNA LEATHA+probe Ql (Unsp spec) Detected Critically abnormal NOT DETECTED [facility] Comment on above: Result Comment: This test is not yet approved or cleared by the [place] FDA. When there are no FDA-approved or cleared tests available, and other criteria are met, FDA can make tests available under an emergency access mechanism called an Emergency Use Authorization (EUA). The EUA for this test is supported by the [place] of Health and Human Service's declaration that [...] longer be used). Performed By: #### C VDTB #### [facility] [address] [place] [address] Dr. Devonte Rivas INFLUENZA A AND B AGon 04-14 [facility] SEE BELOW Normal [facility] Comment on above: Result Comment: Nega tive for Flu A protein angiten. Infection due to Flu A cannot be ruled out. Flu A angiten in the sample may be below the detection limit of the test. Performed By: #### I NFLUAB #### [facility] [address] [place] [address] Dr. [facility] Normal [facility] Comment on above: Result Comment: Nega tive for Flu B protein antigen. Infection due to Flu B cannot be ruled out. Flu B antigen in the sample may be below the detection limit of the test. Performed By: #### I NFLUAB #### [facility] [address] [place] [address] Dr. Devonte Rivas INFLUENZA A AG Negative Normal NEGATIVE SEE COMMENT [facility] Comment on above: Performed By: #### I NFLUAB #### [facility] [address] [place] [address] Dr. Devonte Rivas INFLUENZA B AG Negative Normal NEGATIVE SEE COMMENT [facility] Comment on above: Performed By: #### I NFLUAB #### [facility] [address] [place] [address] Dr. Devonte Rivas INTERNAL CONTROLS Within Normal Limits Normal Wi thin Normal Limits [facility] Comment on above: Performed By: #### I NFLUAB #### [facility] [address] [place] [address] Dr. Devonte Rivas PROF CHEM 8 (BAS METB)on Anion gap [Moles/Vol] 12.0 mmol/L Normal [facility] Comment on above: Performed By: #### H STROPN, BMP #### [facility] [address] [place] [address] Dr. Devonte Rivas Calcium [Mass/Vol] 9.2 mg/dL Normal 8.5-10.1 [facility] Comment on above: Performed By: #### H STROPN, BMP #### [facility] [address] [place] [address] Dr. Devonte Rivas Chloride [Moles/Vol] 100 mmol/L Normal 98-107 [facility] Comment on above: Performed By: #### H STROPN, BMP #### [facility] [address] [place] [address] Dr. Devonte Rivas CO2 [Moles/Vol] 26.2 mmol/L Normal 21.0-32.0 [facility] Comment on above: Performed By: #### H STROPN, BMP #### [facility] [address] [place] [address] Dr. Devonte Rivas Creatinine [Mass/Vol] 0.99 mg/dL Normal 0.70-1.30 [facility] Comment on above: Performed By: #### H STROPN, BMP #### [facility] [address] [place] [address] Dr. Devonte Rivas EGFR-AF BAHRAINI >60 Normal >=60 [facility] Comment on above: Performed By: #### H STROPN, BMP #### [facility] [address] [place] [address] Dr. Devonte Rivas EGFR-NON AF BAHRAINI >60 Normal >=60 [facility] Comment on above: Performed By: #### H STROPN, BMP #### [facility] [address] [place] [address] Dr. Devonte Rivas Glucose [Mass/Vol] 163 mg/dL Critically high 74-106 T [facility] Comment on above: Performed By: #### H STROPN, BMP #### [facility] [address] [place] [address] Dr. Devonte Rivas Potassium [Moles/Vol] 4.2 mmol/L Normal 3.5-5.1 [facility] Comment on above: Performed By: #### H CECELIA, BMP #### [facility] [address] [address] [address] Devonte Rivas Sodium [Moles/Vol] 134 mmol/L Critically low 136-145 Th [facility] Comment on above: Performed By: #### H CECELIA, BMP #### [facility] [address] [address] [address] Devonte Rivas Urea nitrogen [Mass/Vol] 11.0 mg/dL Normal 7.0-18.0 [facility] Comment on above: Performed By: #### H CECELIA, BMP #### [facility] [address] [place] [address] Dr. Devonte Rivas Urea nitrogen/Creatinine [Mass ratio] 11.1 mg/mg Normal [facility] Comment on above: Performed By: #### H CECELIA, BMP #### [facility] [address] [place] [address] Dr. Devonte Rivas TROPONIN, HIGH SENSITIVITYon 04-14-2022 HSTROP <4.0 Normal 4.0-76.1 [facility] Comment on above: Result Comment: CUT- OFF POINTS HAVE BEEN ESTABLISHED BASED ON THE FOURTH UNIVERSAL DEFINITIONS OF MYOCARDIAL INFARCTION. THE UPPER REFERENCE LIMIT (URL) OF TROPONIN, DEFINED THE 99TH PERCENTILE OF cTnI DISTRIBUTION IN A REFERENCE POPULATION, HAS BEEN CONFIRMED THE DECISION THRESHOLD FOR [place] DIAGNOSIS. Performed By: #### H CECELIA, BMP #### [facility] [address] [place] [address] Dr. Devonte Rivas XR CHEST 1 Von 04-14-2022 XR CHEST 1 V EXAM: Chest x-ray HISTORY: . SHORTNESS OF BREATH . COMPARISON: 10/26/2010 TECHNIQUE: Frontal and lateral chest. FINDINGS: Heart and vascularity are unremarkable. Lungs are free of focal infiltrates. EKG leads overlie the chest. Impression: No acute heart or lung disease identified. Electronically authenticated by: DANIEL MALDONADO Date: 2022-04-14 09:12 Normal [facility] Established Visit (Orthopaed ic Surgery)on 09-29-2021 Established [...] 01/07/2021 10:40:28 AM Current Meds Medication NameInstruction Jhllbcewng-XTDT-Ovyvsouf 50-300-40 MG Oral CapsuleTAKE 1 CAPSULE BY [...] Sep 29 2021 12:05PM EST (Author) Normal [facility] Office Visiton 09-16-2021 Follow-up visit Diagnoses/Problems Class 1 obesity with body mass index (BMI) of 34.0 to 34.9 in adult (278.00,V85.34) (E66.9,Z68.34) Inappropriate diet or eating habits (V69.1) (Z72.4) Orders Class 1 obesity with body mass index (BMI) of 34.0 to 34.9 in adult Comprehensive Metabolic Panel; Status:Active; Requested for:[id number]; Hemoglobin A1C; Status:Active; Requested for:[id number]; Insulin Level, Serum; Status:Active; Requested for:[id number]; Lipid Panel; Status:Active; Requested for:[id number]; Class 1 obesity with body mass index [...] of coffee (black) V8 juice L - Highland (low calorie tortilla) turkey with salad D [...] Social Hx: Lives with: Spouse 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 Normal [facility] MRI Lumbar Spine w/oon 09-05 MRI Lumbar [...] by Chandler Tomlinson on 09/08/2021 1127 Normal [facility] CT Abdomen/Pelvis w/ Contras ton 08-05-2021 [...] by Chandler Tomlinson on 08/06/2021 0906 Normal [facility] [employer] Established Visit (Orthopaed ic Surgery)on 07-28-2021 Established Visit (Orthopaedic Surgery) Diagnoses/Problems Assessed Lumbar postlaminectomy syndrome (722.83) (M96.1) Orders Lumbar postlaminectomy syndrome MRI L Spine without Contrast; Status:Hold For - Scheduling,Retrospective Authorization; Requested for:[id number]; Radiologist to Determine Optimal Study : Y Does the patient have a Cochlear Implant, Pacemaker, Defibrilator, Pacing Wire, Brain Aneurysm Clip, Implanted Nerve or Bone Graft Simulator, Implanted Breast Tissue Importer Exporter, Glucose Monitor, or Neulasta Device? : No [...] 01/07/2021 10:40:28 AM Current Meds Medication NameInstruction Zqrynptkps-YPZH-Pklldpxv 50-300-40 MG Oral CapsuleTAKE 1 CAPSULE BY [...] Jul 28 2021 11:54AM EST (Author) Normal [facility] Office Visiton 06-18-2021 Follow-up visit Diagnoses/Problems Class [...] - continue to follow reduced kcal diet, 6872-6366 focus on protein at each meal, unprocessed [...] coffee and V8 L - yogurt, granola (nepali yogurt, 1/4 cup granola), cream of corn 1 cup Snack - pop corner 100 calorie bag D - veggie burger with indonesian cheese AND onion (2 burgers) low calorie [...] Social Hx: Lives with: Spouse 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 Normal [facility] Nutrition-Adulton 05-06-2021 Nutrition-Adult Medical Diagnosis Assessed Class [...] fatty acids and low saturated fat content. [place], mackerel, albacore tuna, sardines, mills and franco [...] occasionally snack (more content not included)... Normal [facility] No Panel Informationon 04-23 3638 1 ZD-Jzxsqld-S arma MAC2 303 Work Phone: [phone] QH-Hwqciqz-K arma MAC2 303 Work Phone: [phone] JG-Onmcbek-L arma MAC[address] Work Phone: [phone] GU-Zfuawtp-K arma MAC[address] Work Phone: Comment on above: Age: 56Height: 73 in Sex: MLevel of Activity: Sedentary (little or no exercise)Weight: 292 lb 2138 1 AO-Nkqtquu-X arma MAC[address] Work Phone: [phone] BV-Whevxxr-H arma MAC[address] Work Phone: Tobacco Screening.on 022 Fall risk assessment a) No falls within the last year LJ-Aukxtrl-O arma MAC[address] Work Phone: Tobacco use status CPHS b) No EP-Exrojmp-Z arma MAC[address] Work Phone: Radiologyon 03-10-2021 XR Lumbar spine AP and Lateral Please click on the link to view the study images Normal MG-Orthopaed [facility] Work Phone: SPINE, LUMBOSACRAL; 2 OR 3 V IEWSon 03-10-2021 SPINE, LUMBOSACRAL; 2 OR 3 VIEWS Patient Name: LYLY QUINN STUDY: SPINE, LUMBOSACRAL; 2 OR 3 VIEWS; ; 03/10/2021 11:16 am INDICATION: pain M96.1: Lumbar postlaminectomy syndrome M48.062: Spinal stenosis of lumbar region with neurogenic claudication. COMPARISON: 12/09/2020. ACCESSION NUMBER(S): [id number] ORDERING CLINICIAN: BEE BLACKMON FINDINGS: Lumbosacral spine [...] Electronically signed by: JANET VILLARREAL MD Normal [facility] Radiologyon 12-09-2020 XR Lumbar spine AP and Lateral Please click on the link to view the study images Normal MG-Orthopaed [facility] Work Phone: SPINE, LUMBOSACRAL; 2 OR 3 V IEWSon 12-09-2020 SPINE, LUMBOSACRAL; 2 OR 3 VIEWS Patient Name: LYLY QUINN STUDY: Lumbar Spine, 2 views. INDICATION: low back pain. COMPARISON: Outside hospital lumbar spine radiographs 08/29/2020 ACCESSION NUMBER(S): [id number] ORDERING CLINICIAN: BEE BLACKMON FINDINGS: Redemonstration of [...] Electronically signed by: WILLIAMS GUZMAN MD Normal [facility] BASIC METABOLIC PANELon 11-17 ANION GAP Canceled Normal [facility] Comment on above: Order Comment: TEST BASIC METABOLIC PANEL WAS CANCELLED, 12/01/2020 18:56 NO SPECIMEN RECEIVED IN LAB. Performed By: #### B MP #### [facility] [address] [place] [address] BICARBONATE Canceled Normal [facility] Comment on above: Order Comment: TEST BASIC METABOLIC PANEL WAS CANCELLED, 12/01/2020 18:56 NO SPECIMEN RECEIVED IN LAB. Performed By: #### B MP #### [facility] [address] [place] [address] CALCIUM Canceled Normal [facility] Comment on above: Order Comment: TEST BASIC METABOLIC PANEL WAS CANCELLED, 12/01/2020 18:56 NO SPECIMEN RECEIVED IN LAB. Performed By: #### B MP #### [facility] [address] [place] [address] CHLORIDE Canceled Normal [facility] Comment on above: Order Comment: TEST BASIC METABOLIC PANEL WAS CANCELLED, 12/01/2020 18:56 NO SPECIMEN RECEIVED IN LAB. Performed By: #### B MP #### [facility] [address] [place] [address] CREATININE Canceled Normal [facility] Comment on above: Order Comment: TEST BASIC METABOLIC PANEL WAS CANCELLED, 12/01/2020 18:56 NO SPECIMEN RECEIVED IN LAB. Performed By: #### B MP #### [facility] [address] [place] [address] GFR- AM. Canceled Normal [facility] Comment on above: Order Comment: TEST BASIC METABOLIC PANEL WAS CANCELLED, 12/01/2020 18:56 NO SPECIMEN RECEIVED IN LAB. Result Comment: CALC ULATIONS OF ESTIMATED GFR ARE PERFORMED USING THE MDRD STUDY EQUATION FOR THE IDMS-TRACEABLE CREATININE METHODS. CLIN CHEM 2007;53:766-72 Performed By: #### B MP #### [facility] [address] [place] [address] GFR-NON AM. Canceled Normal [facility] Comment on above: Order Comment: TEST BASIC METABOLIC PANEL WAS CANCELLED, 12/01/2020 18:56 NO SPECIMEN RECEIVED IN LAB. Performed By: #### B MP #### [facility] [address] [place] [address] GLUCOSE Canceled Normal [facility] Comment on above: Order Comment: TEST BASIC METABOLIC PANEL WAS CANCELLED, 12/01/2020 18:56 NO SPECIMEN RECEIVED IN LAB. Performed By: #### B MP #### [facility] [address] [place] [address] POTASSIUM Canceled Normal [facility] Comment on above: Order Comment: TEST BASIC METABOLIC PANEL WAS CANCELLED, 12/01/2020 18:56 NO SPECIMEN RECEIVED IN LAB. Performed By: #### B MP #### [facility] [address] [place] [address] SODIUM Canceled Normal [facility] Comment on above: Order Comment: TEST BASIC METABOLIC PANEL WAS CANCELLED, 12/01/2020 18:56 NO SPECIMEN RECEIVED IN LAB. Performed By: #### B MP #### [facility] [address] [place] [address] UREA NITROGEN Canceled Normal [facility] Comment on above: Order Comment: TEST BASIC METABOLIC PANEL WAS CANCELLED, 12/01/2020 18:56 NO SPECIMEN RECEIVED IN LAB. Performed By: #### B MP #### [facility] [address] [place] [address] CBCon 12-01-2020 HCT Canceled Normal [facility] Comment on above: Order Comment: TEST CBC WAS CANCELLED, 12/01/2020 18:56 NO SPECIMEN RECEIVED IN LAB. Performed By: #### C BC #### [facility] [address] [place] [address] HGB Canceled Normal [facility] Comment on above: Order Comment: TEST CBC WAS CANCELLED, 12/01/2020 18:56 NO SPECIMEN RECEIVED IN LAB. Performed By: #### C BC #### [facility] [address] [place] [address] MCHC Canceled Normal [facility] Comment on above: Order Comment: TEST CBC WAS CANCELLED, 12/01/2020 18:56 NO SPECIMEN RECEIVED IN LAB. Performed By: #### C BC #### [facility] [address] [place] [address] MCV Canceled Normal [facility] Comment on above: Order Comment: TEST CBC WAS CANCELLED, 12/01/2020 18:56 NO SPECIMEN RECEIVED IN LAB. Performed By: #### C BC #### [facility] [address] [place] [address] NUCLEATED RBC Canceled Normal [facility] Comment on above: Order Comment: TEST CBC WAS CANCELLED, 12/01/2020 18:56 NO SPECIMEN RECEIVED IN LAB. Performed By: #### C BC #### [facility] [address] [place] [address] PLT Canceled Normal [facility] Comment on above: Order Comment: TEST CBC WAS CANCELLED, 12/01/2020 18:56 NO SPECIMEN RECEIVED IN LAB. Performed By: #### C BC #### [facility] [address] [place] [address] RBC Canceled Normal [facility] Comment on above: Order Comment: TEST CBC WAS CANCELLED, 12/01/2020 18:56 NO SPECIMEN RECEIVED IN LAB. Performed By: #### C BC #### [facility] [address] [place] [address] RDW-CV Canceled Normal [facility] Comment on above: Order Comment: TEST CBC WAS CANCELLED, 12/01/2020 18:56 NO SPECIMEN RECEIVED IN LAB. Performed By: #### C BC #### [facility] [address] [place] [address] WBC Canceled Normal [facility] Comment on above: Order Comment: TEST CBC WAS CANCELLED, 12/01/2020 18:56 NO SPECIMEN RECEIVED IN LAB. Performed By: #### C BC #### [facility] [address] [place] [address] BASIC METABOLIC PANELon 11-17 ANION GAP Canceled Normal [facility] Comment on above: Order Comment: TEST BASIC METABOLIC PANEL WAS CANCELLED, 11/29/2020 10:53 NO SPECIMENRECEIVED IN LAB. Performed By: #### B MP ####[id number] [place] [address] BICARBONATE Canceled Normal [facility] Comment on above: Order Comment: TEST BASIC METABOLIC PANEL WAS CANCELLED, 11/29/2020 10:53 NO SPECIMENRECEIVED IN LAB. Performed By: #### B MP ####[id number] [place] [address] CALCIUM Canceled Normal [facility] Comment on above: Order Comment: TEST BASIC METABOLIC PANEL WAS CANCELLED, 11/29/2020 10:53 NO SPECIMENRECEIVED IN LAB. Performed By: #### B MP ####[id number] [place] [address] CHLORIDE Canceled Normal [facility] Comment on above: Order Comment: TEST BASIC METABOLIC PANEL WAS CANCELLED, 11/29/2020 10:53 NO SPECIMENRECEIVED IN LAB. Performed By: #### B MP ####[id number] [place] [address] CREATININE Canceled Normal [facility] Comment on above: Order Comment: TEST BASIC METABOLIC PANEL WAS CANCELLED, 11/29/2020 10:53 NO SPECIMENRECEIVED IN LAB. Performed By: #### B MP ####[id number] [place] [address] GFR- AM. Canceled Normal [facility] Comment on above: Order Comment: TEST BASIC METABOLIC PANEL WAS CANCELLED, 11/29/2020 10:53 NO SPECIMENRECEIVED IN LAB. Result Comment: CALC ULATIONS OF ESTIMATED GFR ARE PERFORMED USING THE MDRD STUDY EQUATION FOR THE IDMS-TRACEABLE CREATININE METHODS. CLIN CHEM 2007;53:766-72 Performed By: #### B MP ####[id number] [place] [address] GFR-NON AM. Canceled Normal [facility] Comment on above: Order Comment: TEST BASIC METABOLIC PANEL WAS CANCELLED, 11/29/2020 10:53 NO SPECIMENRECEIVED IN LAB. Performed By: #### B MP ####[id number] [place] [address] GLUCOSE Canceled Normal [facility] Comment on above: Order Comment: TEST BASIC METABOLIC PANEL WAS CANCELLED, 11/29/2020 10:53 NO SPECIMENRECEIVED IN LAB. Performed By: #### B MP ####[id number] [place] [address] POTASSIUM Canceled Normal [facility] Comment on above: Order Comment: TEST BASIC METABOLIC PANEL WAS CANCELLED, 11/29/2020 10:53 NO SPECIMENRECEIVED IN LAB. Performed By: #### B MP ####[id number] [place] [address] SODIUM Canceled Normal [facility] Comment on above: Order Comment: TEST BASIC METABOLIC PANEL WAS CANCELLED, 11/29/2020 10:53 NO SPECIMENRECEIVED IN LAB. Performed By: #### B MP ####[id number] [place] [address] UREA NITROGEN Canceled Normal [facility] Comment on above: Order Comment: TEST BASIC METABOLIC PANEL WAS CANCELLED, 11/29/2020 10:53 NO SPECIMENRECEIVED IN LAB. Performed By: #### B MP ####[id number] [place] [address] CBCon 11-29-2020 HCT Canceled Normal [facility] Comment on above: Order Comment: TEST CBC WAS CANCELLED, 11/29/2020 10:53 NO SPECIMEN RECEIVED IN LAB. Performed By: #### C BC ####[id number] [place] [address] HGB Canceled Normal [facility] Comment on above: Order Comment: TEST CBC WAS CANCELLED, 11/29/2020 10:53 NO SPECIMEN RECEIVED IN LAB. Performed By: #### C BC ####[id number] [place] [address] MCHC Canceled Normal [facility] Comment on above: Order Comment: TEST CBC WAS CANCELLED, 11/29/2020 10:53 NO SPECIMEN RECEIVED IN LAB. Performed By: #### C BC ####[id number] [place] [address] MCV Canceled Normal [facility] Comment on above: Order Comment: TEST CBC WAS CANCELLED, 11/29/2020 10:53 NO SPECIMEN RECEIVED IN LAB. Performed By: #### C BC ####[id number] [place] [address] NUCLEATED RBC Canceled Normal [facility] Comment on above: Order Comment: TEST CBC WAS CANCELLED, 11/29/2020 10:53 NO SPECIMEN RECEIVED IN LAB. Performed By: #### C BC ####[id number] [place] [address] PLT Canceled Normal [facility] Comment on above: Order Comment: TEST CBC WAS CANCELLED, 11/29/2020 10:53 NO SPECIMEN RECEIVED IN LAB. Performed By: #### C BC ####[id number] [place] [address] RBC Canceled Normal [facility] Comment on above: Order Comment: TEST CBC WAS CANCELLED, 11/29/2020 10:53 NO SPECIMEN RECEIVED IN LAB. Performed By: #### C BC ####[id number] [place] [address] RDW-CV Canceled Normal [facility] Comment on above: Order Comment: TEST CBC WAS CANCELLED, 11/29/2020 10:53 NO SPECIMEN RECEIVED IN LAB. Performed By: #### C BC ####[id number] [place] [address] WBC Canceled Normal [facility] Comment on above: Order Comment: TEST CBC WAS CANCELLED, 11/29/2020 10:53 NO SPECIMEN RECEIVED IN LAB. Performed By: #### C BC ####[id number] [place] [address] BASIC METABOLIC PANELon 08 Anion gap [Moles/Vol] 15 mmol/L Normal 10 - 20 [facility] Comment on above: Performed By: #### B MP #### [facility] [address] [place] [address] Calcium [Mass/Vol] 9.7 mg/dL Normal 8.6 - 10.6 [facility] Comment on above: Performed By: #### B MP #### [facility] [address] [place] [address] Chloride [Moles/Vol] 99 mmol/L Normal 98 - 107 [facility] Comment on above: Performed By: #### B MP #### [facility] [address] [place] [address] Creatinine [Mass/Vol] 0.81 mg/dL Normal 0.50 - 1.30 [facility] Comment on above: Performed By: #### B MP #### [facility] [address] [place] [address] GFR- AM. >60 Normal >60 [facility] Comment on above: Result Comment: CALC ULATIONS OF ESTIMATED GFR ARE PERFORMED USING THE MDRD STUDY EQUATION FOR THE IDMS-TRACEABLE CREATININE METHODS. CLIN CHEM 2007;53:766-72 Performed By: #### B MP #### [facility] [address] [place] [address] GFR-NON AM. >60 Normal >60 [facility] Comment on above: Performed By: #### B MP #### [facility] [address] [place] [address] Glucose [Mass/Vol] 188 mg/dL High 74 - 99 [facility] Comment on above: Performed By: #### B MP #### [facility] [address] [place] [address] HCO3 (Bld) [Moles/Vol] 26 mmol/L Normal 21 - 32 [facility] Comment on above: Performed By: #### B MP #### [facility] [address] [place] [address] Potassium [Moles/Vol] 5.1 mmol/L Normal 3.5 - 5.3 [facility] Comment on above: Performed By: #### B MP #### [facility] [address] [place] [address] Sodium [Moles/Vol] 135 mmol/L Low 136 - 145 [facility] Comment on above: Performed By: #### B MP #### [facility] [address] [place] [address] Urea nitrogen [Mass/Vol] 16 mg/dL Normal 6 - 23 [facility] Comment on above: Performed By: #### B MP #### [facility] [address] [place] [address] CBCon 11-27-2020 Erythrocyte distribution width (RBC) [Ratio] 12.8 % Normal 11.5 - 14.5 [facility] Comment on above: Performed By: #### C BC #### [facility] [address] [place] [address] Hematocrit (Bld) [Volume fraction] 43.9 % Normal 41.0 - 52.0 [facility] Comment on above: Performed By: #### C BC #### [facility] [address] [place] [address] Hemoglobin (Bld) [Mass/Vol] 14.2 g/dL Normal 13.5 - 17.5 [facility] Comment on above: Performed By: #### C BC #### [facility] [address] [place] [address] MCHC (RBC) [Mass/Vol] 32.3 g/dL Normal 32.0 - 36.0 [facility] Comment on above: Performed By: #### C BC #### [facility] [address] [place] [address] MCV (RBC) [Entitic vol] 94 fL Normal 80 - 100 [facility] Comment on above: Performed By: #### C BC #### [facility] [address] [place] [address] NUCLEATED RBC 0.0 /100 WBC Normal 0.0-0.0 [facility] Comment on above: Performed By: #### C BC #### [facility] [address] [place] [address] Platelets (Bld) [#/Vol] 237 10*3/uL Normal 150 - 450 [facility] Comment on above: Performed By: #### C BC #### [facility] [address] [place] [address] RBC 4.65 x10E12/L Normal 4.50 - 5.90 [facility] Comment on above: Performed By: #### C BC #### [facility] [address] [place] [address] WBC (Bld) [#/Vol] 8.5 10*3/uL Normal 4.4 - 11.3 [facility] Comment on above: Performed By: #### C #### [facility] [address] [place] [address] Daily Progress Note-Orthopamelissa law 11-27-2020 Daily Progress [...] advance as tolerated. Bowel regimen - dc [employer], POPM starting POD1. Scheduled tylenol. Robaxin. Continue [...] Kevin Marshall MD, PGY-2 Orthopedic Spine Team [id number] Available on [facility] Orthopedic Spine Team Kevin Marshall, PGY-2 ([id number]) Amrit Long PGY-3 ([id number]) Lambert Suarez PGY-4 ([id number]) Please call healthcare market consultant resident ([id number]) nights after 6pm and weekends Attestation: Note [...] Updated: 11-Dec-2020 15:25 by Bee Blackmon) Normal [facility] Laboratory - Chemistry and C hemistry - challengeon 11-27-2020 Anion gap [Moles/Vol] 15 mmol/L 10 - 20 MG[facility]Or[facility]opaed [employer] Work Phone: Calcium [Mass/Vol] 9.7 mg/dL 8.6 - 10.6 [facility]Ort hopaed [employer] Work Phone: Chloride [Moles/Vol] 99 mmol/L 98 - 107 [facility] [employer] Work Phone: CO2 [Moles/Vol] 26 mmol/L 21 - 32 [facility]Orthop aed [employer] Work Phone: Creatinine [Mass/Vol] 0.81 mg/dL See Below [facility] [employer] Work Phone: Comment on above: Reference Range: 0.5 0 - 1.30 Glucose [Mass/Vol] 188 mg/dL above high threshold 74 - 99 [facility] [employer] Work Phone: Potassium [Moles/Vol] 5.1 mmol/L 3.5 - 5.3 [facility] [employer] Work Phone: Sodium [Moles/Vol] 135 mmol/L below low threshold 136 - 145 [facility] [employer] Work Phone: Urea nitrogen [Mass/Vol] 16 mg/dL 6 - 23 [facility] [employer] Work Phone: Laboratory - Hematology and Cell countson 11-27-2020 Erythrocyte distribution width (RBC) [Ratio] 12.8 % See Below [employer] [facility] [employer] Work Phone: Comment on above: Reference Range: 11. 5 - 14.5 Hematocrit (Bld) [Volume fraction] 43.9 % See Below [employer] [facility] [employer] Work Phone: Comment on above: Reference Range: 41. 0 - 52.0 Hemoglobin (Bld) [Mass/Vol] 14.2 g/dL See Below [facility] [employer] Work Phone: Comment on above: Reference Range: 13. 5 - 17.5 MCHC (RBC) [Mass/Vol] 32.3 g/dL See Below [facility] [employer] Work Phone: Comment on above: Reference Range: 32. 0 - 36.0 MCV (RBC) [Entitic vol] 94 fL 80 - 100 [facility] [employer] Work Phone: [phone] Platelets (Bld) [#/Vol] 237 10*3/uL 150 - 450 [facility] [employer] Work Phone: RBC (Bld) [#/Vol] 4.65 {x10E12/L} See Below [facility] -[facility]opa[facility] [employer] Work Phone: Comment on above: Reference Range: 4.5 0 - 5.90 WBC (Bld) [#/Vol] 8.5 10*3/uL 4.4 - 11.3 MG-Ort hopaed [employer] Work Phone: No Panel Informationon 11-27 >60 >60 [facility]opa[facility] [employer] Work Phone: Comment on above: CALCULATIONS OF [place] MATED GFR ARE PERFORMED USING THE MDRD STUDY EQUATION FOR THE IDMS-TRACEABLE CREATININE METHODS. CLIN CHEM 2007;53:766-72 0.0 {/100_WBC} 0.0-0.0 MG-Orthopa ed [employer] Work Phone: Daily Progress Note-Orthopae thanh 11-26-2020 [...] diet, advance as tolerated. Bowel regimen - REIN[employer]CING [employer] WORKERS, will attempt to wean POD#1. Scheduled tylenol. [...] Lambert Suarez MD Orthopedic Surgery PGY-4 Pager: [phone] Please page consult resident ([phone]) from 6pm-8am and on weekends. Attestation: Note [...] the note. I personally evaluated the patient [id number] Electronic Signatures: Bee Blackmon) (Signed 11-Dec-2020 15:23) Authored: Note Completion Co-Signer: Service, Subjective Data, Objective Data, Assessment and Plan, Note Completion Lambert Suarez (Resident)) (Signed 26-Nov-2020 14:32) Authored: Service, Subjective Data, Objective Data, Assessment and Plan, Note Completion Last Updated: 11-Dec-2020 15:23 by Bee Blackmon) Normal [facility] Discharge [id number] Discharge Profile2 Discharge Orders: Significant Events: [...] Spine Reason for ReferralPostoperative Follow-Up Appointment Scheduled Date/[id number] 11:15 [address], Phone NumberOffice: ([place], ) - [phone] CommentsPlease Call Tara Gonzalez RN at [phone] For Any Post-Op Questions Electronic Signatures: Tara Gonzalez (RN) (Signed 26-Nov-2020 13:51) Authored: Discharge Orders, Appointments, Gold Form - Operator Catalyst Concentration Summary Bee Blackmon) (Signed 10-Dec-2020 17:40) Co-Signer: Discharge Orders, Hospital Course (Home Care/Gold Form), Provider FINAL REVIEW of Orders, Appointments, Gold Form - Operator Catalyst Concentration Summary Lambert Suarez (Resident)) (Signed 26-Nov-2020 14:34) Entered: Hospital Course (Home Care/Gold Form), Provider FINAL REVIEW of Orders Authored: Discharge Orders, Hospital Course (Home Care/Gold Form), Provider FINAL REVIEW of Orders, Appointments, Gold Form - Operator Catalyst Concentration Summary Last Updated: 10-Dec-2020 17:40 by Bee Blackmon) Normal [facility] GLUCOSE-POCTon 11-26-2020 Glucose [Mass/Vol] 186 mg/dL High 74 - 99 [facility] Comment on above: Performed By: #### G BABS #### [address] [place] [address] Laboratory - Chemistry and C hemistry - challengeon 11-26-2020 Glucose [Mass/Vol] 186 mg/dL above high threshold 74 - 99 [facility] Work Phone: No Panel Informationon 11-26 Please click on the link to view the study images Normal [facility] Work Phone: Operative Reports - [facility] [place] [address] Patient Name: RYAN. Taylor QUINN : 1965 Date of Service: 11/26/2020 Patient Location: [facility]0 OR33 Patient Type: I Surgeon: Bee Blackmon [...] [employer] Decade plate. SURGEON: Bee Blackmon MD DIESEL TRUCK DRIVER(S): Lambert Suarez MD ANESTHESIA: General. CLINICAL NOTE [...] confirm retractor (more content not included)... Normal [facility] Order Reconciliationon 11-26 Order Reconciliation Page 1 [...] days, th (more content not included)... Normal [facility] Order Reconciliation Page 1 Admission Reconciliation Document Reconciliation Type: Admission from OR requested on behalf of Lambert Suarez (Resident) done by Lambert Suarez ( (Resident)) Admission from OR - Reconciliation: 26-Nov-2020 14:21 by: Lambert Suarez ( (Resident)) Home MedicationsEnteredLast Dose TakenReconciled with current Order Reconciliation Comment/ Additional Information DULoxetine 60 mg oral delayed release capsule 1 cap(s) orally once a day AM DULoxetine Delayed Release Capsule (CYMBALTA)DOSE = 60 mg Oral DailyDULoxetine 60 mg oral delayed release capsule continued as the inpatient order DULoxetine fenofibrate 48 mg oral tablet 1 tab(s) orally once a [id number]-Nov-2020 AM Reviewed and Held lisinopril 20 mg oral tablet 1 tab(s) orally once a [id number] AM Lisinopril Tablet (PRINIVIL, ZESTRIL)DOSE = 20 [...] orally once a day (in the evening) [id number] Reviewed and Held Additional Current Orders Albuterol [...] 15 minute(s)Clinician Notes: Charmaine-operative order ONLY Normal [facility] Patient Profile - Preop v2on 11-26-2020 Patient Profile - Preop v2 Profile: Initial Info: How to be AddressedRyan Spoken Language PreferredEnglish Stated Reason for Admissionl3-4 cage Primary Contact Name and NumberYvette, Patient Belongingssee preop checklist Medications Brought to Hospitalno General Health: Weight in kg129.7 kilogram(s) Weight in fgv650.9 pound(s) Weight Methodactual (measured) Scale Typestanding Height [...] Learning Preferencesindividual instruction Cultural Considerationsnone Developmental Considerationsnone Yazidi Considerationsnone Other learner availableno Falls RiskPatient location auto qualifies him/her for HIGH RISK. Are there any cultural, spiritual, voodoo practices/values/needs that are important for us to [...] History, Active 19-Nov-2020 SARS-CoV-2 (COVID-19): Immunizations, Active, [employer] COVID-19 Vacc 30 mcg/0.3ml IM Suspension, 22-Jul-2020 SARS-CoV-2 (COVID-19): Immunizations, Active, Pfizer-BioTech COVID-19 Vacc 30 mcg/0.3ml IM suspension, 01-Jul-2020 Electronic Signatures: Pat Padilla (BENI) (Signed 26-Nov-2020 12:05) Authored: Initial Info, General Health, Health Mgmt, Relationship/Environ, Substance, Risk Screens, Additional Information Last Updated: 26-Nov-2020 12:05 by Pat Padilla (RN) Normal [facility] Vital Signs Date Time Vital Sign Value Performing Clinician Facility 03-27-2024 09:46-0500 Body mass index (BMI) [Ratio] 34.72 kg/m2 Karon Rodriguez NP Work Phone: [facility] 03-27-2024 09:46-0500 Body weight 116.12 kg Karon Rodriguez GEOTECHNICAL ENGINEER Work Phone: [facility] 03-27-2024 09:46-0500 Diastolic blood pressure 96 mm[Hg] Karon Rodriguez NP Work Phone: [facility] 03-27-2024 09:46-0500 Heart rate 82 /min Karon Rodriguez GEOTECHNICAL ENGINEER Work Phone: [facility] 03-27-2024 09:46-0500 Systolic blood pressure 148 mm[Hg] Karon Rodriguez GEOTECHNICAL ENGINEER Work Phone: [facility] 09-15-2023 10:11-0400 Body height 184.15 cm DO Kimi Weiss Work Phone: [facility] 09-15-2023 10:11-0400 Body mass index (BMI) [Ratio] 35.2 kg/m2 DO Kimi Weiss Work Phone: [facility] 09-15-2023 10:11-0400 Body weight 119.29 kg DO Kimi Weiss Work Phone: [facility] 09-07-2023 10:35-0400 Diastolic blood pressure 98 mm[Hg] DO Kimi Weiss Work Phone: [facility] 09-07-2023 10:35-0400 Heart rate 102 /min DO Kimi Weiss Work Phone: [facility] 09-07-2023 10:35-0400 Respiratory rate 20 /min DO Kimi Weiss Work Phone: [facility] 09-07-2023 10:35-0400 SaO2% (BldA) [Mass fraction] 96 % DO Kimi Weiss Work Phone: [facility] 09-07-2023 10:35-0400 Systolic blood pressure 160 mm[Hg] DO Kimi Weiss Work Phone: [facility] 09-07-2023 10:00-0400 Inhaled oxygen flow rate 3 L/min DO Kimi Weiss Work Phone: [facility] 09-07-2023 09:19-0400 Body height 182.88 cm DO Kimi Weiss Work Phone: [facility] 09-07-2023 09:19-0400 Body weight 120.2 kg DO Kimi Weiss Work Phone: [facility] 09-16-2021 14:17-0400 Body mass index (BMI) [Ratio] 34.45 kg/m2 Kimi Weiss Work Phone: IG[facility]Pagebuw-Lwxtn [facility] Work Phone: 09-16-2021 14:17-0400 Body surface area Derived from formula 2.36 m2 Kimi Weiss Work Phone: [facility]Ejgadur[facility]Rtcuy [facility] [address] Work Phone: 09-16-2021 14:17-0400 Body weight 115.21 kg Kimi Weiss Work Phone: KK-Kqgclau-Chqrp [facility] [address] Work Phone: 07-23-2021 09:45-0400 Body height 184.15 cm Charles Suzannadelma Other [employer] Other 07-23-2021 09:45-0400 Body mass index (BMI) [Ratio] 34.51 kg/m2 Charles Suzannadelma Other [employer] Other 07-23-2021 09:45-0400 Body weight 117.03 kg Charles Suzannadelma Other [employer] Other 06-18-2021 14:17-0500 Body mass index (BMI) [Ratio] 36.75 kg/m2 Kimi Weiss Work Phone: CT-Tdycvgo-Zcsys [facility] [address] Work Phone: 06-18-2021 14:17-0500 Body surface area Derived from formula 2.42 m2 Kimi Weiss Work Phone: CB-Pmhhwsp-Sqbns [facility] [address] Work Phone: 06-18-2021 14:17-0500 Body weight 122.93 kg Kimi Weiss Work Phone: OP-Cwagqqj-Uvbgm [facility] [address] Work Phone: 04-23-2021 09:49-0500 Body height 182.88 cm Kimi Weiss Work Phone: NN-Zmviyrf-Ytxva [address] Work Phone: 04-23-2021 09:49-0500 Body mass index (BMI) [Ratio] 39.6 kg/m2 Kimi Weiss Work Phone: EB-Ukshdgd-Jmcvk [facility] [address] Work Phone: 04-23-2021 09:49-0500 Body surface area Derived from formula 2.5 m2 Kimi Weiss Work Phone: GN-Unlaqpz-Qewid [facility] Work Phone: 04-23-2021 09:49-0500 Body weight 132.45 kg Kimi Santos Abhishek Work Phone: WA-Hsqtxxw-Mquim [facility] Work Phone: 04-02-2021 09:45-0500 Body height 184.15 cm Charles Claros Other [employer] Other 04-02-2021 09:45-0500 Body mass index (BMI) [Ratio] 35.44 kg/m2 Charles Claros Other [employer] Other 04-02-2021 09:45-0500 Body weight 120.2 kg Charles Claros Other [employer] Other Encounters Encounter Date Encounter Type Care Provider Facility Start: 04-18-2024 End: 04-18-2024 ambulatory Kimi Weiss Facility: [facility] Start: 04-17-2024 ambulatory Kimi Weiss Facili ty: [facility] Start: 04-10-2024 End: 04-13-2024 [facility] Start: 04-10-2024 End: 04-10-2024 ambulatory Kimi Weiss Facility: [facility] Start: 04-03-2024 End: 04-03-2024 ambulatory Kimi Weiss Facility: [facility] Start: 03-27-2024 End: 03-27-2024 Bamboo flowsheet Karon Rodriguez NP Work Phone: [facility] Start: 03-27-2024 End: 03-27-2024 Bamboo flowsheet Karon Rodriguez GEOTECHNICAL ENGINEER [facility] Start: 03-27-2024 End: 03-27-2024 Office outpatient visit 25 minutes Karon Rodriguez GEOTECHNICAL ENGINEER Work Phone: [facility] Comment on above: Chronic cluster head ache, not intractable (Primary Dx); Essential hypertension (CMS/HCC); History of blood clots Start: 03-27-2024 End: 03-27-2024 ambulatory KARON RODRIGUEZ Not Available Start: 03-07-2024 ambulatory Kimi Wesis Facili ty:[facility] Start: 02-21-2024 End: 02-21-2024 ambulatory Kimi Weiss Facility: [facility] Start: 02-07-2024 End: 02-07-2024 ambulatory Kimi Weiss Facility:[facility] Start: 01-17-2024 End: 01-17-2024 Office outpatient visit 15 minutes Bee Blackmon MD Work Phone: [facility] Comment on above: Postlaminectomy synd lorena, lumbar region (Primary Dx) Start: 01-17-2024 End: 01-17-2024 ambulatory BEE BLACKMON [facility] Start: 01-03-2024 End: 01-03-2024 ambulatory Kimi Weiss Facility: [facility] Start: 11-30-2023 End: 11-30-2023 ambulatory KARON RODRIGUEZ Not Available Start: 09-15-2023 End: 09-15-2023 ambulatory DO Kimi Weiss Work Phone: [facility] Work Phone: Start: 09-15-2023 End: 09-15-2023 Patient encounter procedure DO Kimi Weiss Work Phone: [facility] Work Phone: Start: 09-07-2023 Non-patient / Non-visit DO Mike Weiss Work Phone: [facility] Work Phone: Start: 09-07-2023 End: 09-07-2023 Admission to same day surgery center DO Kimi Weiss Work Phone: [facility] Work Phone: Start: 09-07-2023 End: 09-07-2023 ambulatory DO Kimi Weiss Work Phone: [facility] Work Phone: Start: 08-16-2023 ambulatory Georgina Santana Facility:[facility] Start: 08-09-2023 End: 08-09-2023 ambulatory THALIA SANDY Not Available Start: 08-05-2023 End: 08-05-2023 ambulatory [facility] Work Phone: Start: 08-05-2023 End: 08-05-2023 Patient encounter procedure [facility] Work Phone: Start: 06-24-2023 End: 06-24-2023 ambulatory Kimi Weiss Facility: [facility] Start: 04-23-2023 End: 04-23-2023 ambulatory Kimi Weiss Facility: [facility] Start: 04-22-2023 End: 04-22-2023 ambulatory Charles Claros Other [employer] Other Start: 04-22-2023 Telephone encounter Charles Burn[facility] [place] Start: 04-01-2023 End: 04-01-2023 ambulatory Charles Claros Other [employer] Other Start: 04-01-2023 Office outpatient vi sit 25 minutes Charles Claros [facility] [place] Start: 04-01-2023 Telephone encounter [facility] Start: 01-21-2023 End: 01-21-2023 ambulatory Charles Claros Other [employer] Other Start: 01-21-2023 Office outpatient vi sit 25 minutes Charles Claros [facility] [place] Start: 01-21-2023 Telephone encounter [facility] Start: 10-06-2022 End: 10-06-2022 ambulatory Charles Claros Other [employer] Other Start: 10-06-2022 Office outpatient vi sit 25 minutes Charles Claros [facility] [place] Start: 10-06-2022 Telephone encounter Charles Burnham [facility] Start: 07-23-2022 ambulatory Bee Blackmon Facility :[id number] Start: 06-01-2022 End: 06-01-2022 ambulatory Charles Claros Other [employer] Other Start: 06-01-2022 Office outpatient vi sit 25 minutes Charles Claros [facility] [place] Start: 06-01-2022 Telephone encounter Charles Burnham [facility] [place] Start: 05-13-2022 AUDIT Kimi Rasmussen on Work Phone: UY-Adamjzvlqxws-Tvtbtr ke Work Phone: Start: 05-12-[address] Kimi Weiss Facility:[id number] Start: 04-27-2022 Office outpatient vi sit 40 minutes Kimi Weiss Work Phone: EW-Fkcmcwfpledk-Fnetsd ke Work Phone: Start: 04-14-2022 End: 04-14-[address] DANIEL BENITEZ Facility:H1 Start: 02-18-2022 End: 02-18-2022 ambulatory Charles Claros Other [employer] Other Start: 02-18-2022 Office outpatient vi sit 25 minutes Charles Claros [facility] [place] Start: 02-18-2022 Telephone encounter Charles Burnham [facility] Start: 12-15-2021 End: 12-15-2021 ambulatory Charles Claros Other [employer] Other Start: 12-15-2021 Office outpatient vi sit 25 minutes Charles Claros [facility] [place] Start: 09-29-2021 Office outpatient ne w 30 minutes Kimi Weiss Work Phone: IC-Yfkplxutozvq-Tdwzsf ke Work Phone: Start: 09-16-2021 Office outpatient vi sit 25 minutes Kimi Weiss Work Phone: XO-Fmhnnrm-Hrbgo [facility] [address] Work Phone: Start: 07-28-2021 Office outpatient vi sit 15 minutes Kimi Weiss Work Phone: MM-Acglnagttska-Twuqhp ke Work Phone: Start: 07-23-2021 End: 07-23-2021 ambulatory Charles Claros Other [employer] Other Start: 07-23-2021 Office outpatient vi sit 25 minutes Charles Claros [facility] [place] Start: 06-18-2021 Office outpatient vi sit 25 minutes Kimi Weiss Work Phone: UQ-Nfcsozw-Wfftg [facility] [address] Work Phone: Start: 06-03-2021 PAYAM, Provider : Shobha Gomez, Status: Pen, Time: 8:30 AM Kimi Weiss Work Phone: KK-Oegrdvt-Jtfwi [facility] [address] Work Phone: Start: 06-02-2021 AUDIT Kimi Rasmussen on Work Phone: QR-Ritllwk-Jjwzo [facility] [address] Work Phone: Start: 04-23-2021 Current tobacco non- user cad cap copd pv dm Kimi Weiss Work Phone: IN-Jxtpiar-Rtnsa [facility] [address] Work Phone: Start: 04-02-2021 End: 04-02-2021 ambulatory Charles Claros Other [employer] Other Start: 04-02-2021 Office outpatient vi sit 25 minutes Charles Claros [facility] [place] Start: 03-10-2021 Office outpatient vi sit 15 minutes Kimi Weiss Work Phone: HK-Odrixaaestmp-Nyuzfc ke Work Phone: Start: 02-05-2021 Office outpatient vi sit 25 minutes Charles TELLEZ [facility] [place] Start: 12-09-2020 Postop follow up vis it related to original px Kimi Weiss Work Phone: VS-Poipdkdznjoo-Hjhnts kendal Work Phone: Start: 11-26-2020 End: 11-27-2020 Evaluation and management of inpatient Bee Blackmon [facility] Start: 10-31-2020 Phys/qhp telephone evaluation 21-30 min Referring Provider Unknown KM-Dmdxwsdsqnhp-Molvli Work Phone: Procedures Date Procedure Procedure Detail Performing Clinician Start: 09-15-2023 X-ray of lumbar spin e, four views DO Kimi Weiss Work Phone: Start: 09-15-2023 Plain X-ray of right hip DO Kimi Weiss Work Phone: Start: 09-07-2023 Local anesthetic sac ral epidural block DO Kimi Abhishek Work Phone: Start: 05-04-2022 Follow-up visit Start: 12-28-2017 Colonoscopy Bee bennett MD Work Phone: Plan of Treatment Date Care Activity Detail Author Start: 12-29-2027 Screening for malign ant neoplasm of colon [facility] Start: 07-11-2024 End: 07-11-2024 Patient encounter procedure 07/11/2024 9:40 AM EDT Office Visit [facility] [address] [place] [address] Karon Rodriguez NP [address] [place] [address] [facility] Start: 03-30-2024 End: 03-30-2024 Patient encounter procedure 03/30/2024 9:30 AM EST Office Visit [address] [place] [address] [place] [address] [place] [address] [facility] Start: 03-27-2024 End: 03-27-2024 Patient encounter procedure 03/27/2024 9:40 AM EST Office Visit [facility] [address] [place] [address] Karon Rodriguez NP [address] [place], [place] [id number] Arrived [facility] Comment on above: Arrived Start: 12-19-2023 COVID-19 Vaccine ( season) COVID-19 Vaccine ( season) [facility] Start: 12-19-2023 Influenza vaccination Influenza Vacc ine (#1) [facility] Start: 09-15-2023 X-ray of lumbar spin e, four views XR lumbar spine AP/LAT/FLX/EXT [facility] Start: 09-15-2023 XR Lumbar spine 4 Views [facility] Start: 09-15-2023 Plain X-ray of right hip XR hip RT min 2V(w/wo pelvis)* [facility] Start: 09-15-2023 XR Hip - right 2 Views [facility] Start: 09-07-2023 [facility] Start: 06-11-2022 EMG, Provider: NEURODIAG EMC01 EMG ARAIZA,[id number], Status: Pen, Time: 10:30 AM EMG, Provider: NEURODIAG EMC01 EMG ARAIZA,[id number], Status: Pen, Time: 10:30 AM MH-Iumrpulrisbq-Xpsgqv ke Work Phone: Start: 05-04-2022 VIRFUVHOME, Provider : Marisol Husain, Status: Pen, Time: 8:45 AM VIRFUVHOME, Provider: Marisol Husain, Status: Pen, Time: 8:45 AM HG-Pzoeyueomxib-Hptyop ke Work Phone: Start: 01-13-2022 VIRFUVHOME, Provider : Marisol Husain, Status: Pen, Time: 2:15 PM VIRFUVHOME, Provider: Marisol Husain, Status: Pen, Time: 2:15 PM ID-Mkatjtfplcww-Xckrrn ke Work Phone: Start: 09-29-2021 FUV, Provider: Bee Blackmon, Status: Pen, Time: 11:30 AM FUV, Provider: Bee Blackmon, Status: Pen, Time: 11:30 AM IX-Akacfix-Sbwrk [facility] Work Phone: Start: 09-16-2021 VIRFUVHOME, Provider : Marisol Husain, Status: Pen, Time: 2:15 PM VIRFUVHOME, Provider: Marisol Husain, Status: Pen, Time: 2:15 PM LR-Wxscczknfbzg-Vzeeai ke Work Phone: Start: 06-18-2021 VIRFUVHOME, Provider : Marisol Husain, Status: Pen, Time: 2:15 PM VIRFUVHOME, Provider: Marisol Husain, Status: Pen, Time: 2:15 PM OE-Jhbnetf-Uzown [facility] Work Phone: Start: 04-23-2021 NPV, Provider: Marisol Husain, Status: Pen, Time: 10:00 AM NPV, Provider: Marisol Husain, Status: Pen, Time: 10:00 AM [facility] Work Phone: Start: 03-10-2021 FUV, Provider: Bee Blackmon, Status: Pen, Time: 11:15 AM FUV, Provider: Bee Blackmon, Status: Pen, Time: 11:15 AM YM-Toztgpozggno-Yyeech ke Work Phone: Start: 03-10-2021 Patient encounter procedure [facility] [place] Start: 12-16-2020 POV, Provider: Bee Blackmon, Status: Pen, Time: 11:15 AM POV, Provider: Bee Blackmon, Status: Pen, Time: 11:15 AM SP-Uflbupjrtyof-Wzwgyw Work Phone: Start: 11-26-2020 [facility], Provider: Bee Blackmon, Status: Pen, Time: 8:30 AM [facility], Provider: Bee Blackmon, Status: Pen, Time: 8:30 AM MX-Oteaocfoimoi-Gnwdhn Work Phone: Start: 2016 Zoster Vaccines (1 o f 2) Zoster Vaccines (1 of 2) [facility] Start: 1988 DTaP/Tdap/Td Vaccine s (1 - Tdap) DTaP/Tdap/Td Vaccines (1 - Tdap) [facility] Start: 1985 Hepatitis B Vaccines (1 of 3 - 19+ 3-dose series) Hepatitis B Vaccines (1 of 3 - 19+ 3-dose series) [facility] Start: 1984 [facility]atitis [facility]: 1967 MMR Vaccines (1 of 1 - Standard series) MMR Vaccines (1 of 1 - Standard series) [facility] Start: 1966 HIV screening HIV Screening [facility] Start: 1966 Lipid panel Lipid Panel [facility] Start: 1966 Screening for malign ant neoplasm of colon [facility] Start: 1966 Yearly Adult Physical Yearly Adult P hysical [facility] Patient Education Know your Meds Felter Non Diagnostic Block [facility] Work Phone: Patient referral [facility] Work Phone: Immunizations Immunization Date Immunization Notes Care Provider Fa cility 07-22-2020 Pfizer-BioNTech COVID-19 Vacc 30 MCG/0.3ML Intramuscular Suspension Referring Provider Unknown TZ-Pflanoujsevo-Rhbvm a Work Phone: 07-01-2020 Pfizer-BioNTech COVID-19 Vacc 30 MCG/0.3ML Intramuscular Suspension Referring Provider Unknown PB-Rfelsftzmwkc-Iicxj a Work Phone: 01-27-2020 influenza, injectabl e, quadrivalent, preservative free Referring Provider Unknown TT-Wkqqvavqdywu-Rkubn a Work Phone: 01-27-2020 influenza virus vaccine, unspecified formulation Bee Blackmon MD Work Phone: [facility] Work Phone: 02-13-2019 influenza, injectabl e, quadrivalent, contains preservative Referring Provider Unknown PE-Cpymsqiaxpgf-Xnavy a Work Phone: 02-21-2018 influenza, injectabl e, quadrivalent, preservative free Referring Provider Unknown OS-Dqfmgubshwnp-Qlnwm a Work Phone: 01-30-2017 KENALOG - 10 mg Charles weaver Other [place] [email or web address] Other 01-17-2014 influenza, seasonal, injectable Referring Provider Unknown ZE-Cuyhsgltjrez-Qdufx a Work Phone: Payers Date Payer Category Payer Self-pay [id number] 2022 Private Health Insurance [id number] 2022 Unknown [id number] 2.16.8 40.1.066948.19 1966 Unknown [id number] 2.16.8 40.1.505846.3.579.2.1069 1966 Unknown [id number] 2.16.84 0.1.545492.3.579.2.593 1966 Unknown [id number] 2.16.8 40.1.841007.3.579.2.1068 1966 Unknown [id number] 2.16.8 40.1.094518.3.579.2.1245 1966 Unknown [id number] 2.16.84 0.1.134383.3.579.2.1259 1966 Unknown [id number] 2.16.84 0.1.718923.3.579.2.1259 1966 Unknown [id number] 2.16.84 0.1.520350.3.579.2.1259 1966 Unknown [id number] 2.16.8 40.1.949801.3.579.2.8 1966 Unknown [id number] 2.16.8 40.1.983511.3.579.2. 1966 Unknown [id number] 2.16.8 40.1.789568.3.579.2. 1966 Unknown [id number] 2.16.8 40.1.434940.3.579.2. 1966 Unknown [id number] 2.16.8 40.1.774922.3.579.2. 1966 Unknown [id number] 2.16.8 40.1.495577.3.579.2. 1966 Unknown [id number] 2.16.8 40.1.770703.3.579.2. 1966 Unknown [id number] 2.16.8 40.1.296775.3.579.2. 1966 Unknown [id number] 2.16.8 40.1.778781.3.579.2. 1966 Unknown [id number] 2.16.8 40.1.748938.3.579.2. 1966 Unknown [id number] 2.16.8 40.1.154587.3.579.2.718 1959 Unknown [id number] 2.16. 840.1.501708.19 Unknown Unknown [id number] 2.16. 840.1.074110.19 Unknown [id number] Unknown [id number] 2.16.8 40.1.544173.3.579.2.531 Unknown [id number] 2.16.8 40.1.268647.3.579.2.531 Unknown [id number] 2.16.8 40.1.447796.3.579.2.531 Social History Date Type Detail Facility [facility] Tobacco smoking consumption unknown [facility] Start: 08-08-2023 Non-smoker Non-smoker [facility] [address] Work Phone: Start: 08-08-2023 Sex Assigned At [facility] [email or web address] Other Start: 02-29-2020 End: 08-08-2023 Tobacco smoking status NHIS Never smoked tobacco (finding) [facility] Start: 1965 Sex Assigned At Male F [facility] Start: 11-30-2023 End: 03-27-2024 Alcoholic beverage intake Lifetime non-drinker (finding) [facility] Start: 1965 Sex assigned at Not on file U [facility] Work Phone: Start: 01-07-2024 End: 01-17-2024 Exposure to SARS-CoV-2 (event) Not sure [facility] Medical Equipment Procedure Code Equipment Code Equipment Original Text Equipment Identifier Dates USE DIRECTED TO TEST BLOOD SUGAR EVERY DAY Start: 02-07-2024 Bone Matrix, Osteocel Pro Cellular, Medium Case [id number] Start: 11-26-2020 Comment on above: Description: Convert ed from [facility]. Please see archived information for full log information. 45 Screw Case [id number] Start: 11-26-2020 Comment on above: Description: Convert ed from [facility]. Please see archived information for full log information. Additional Information:45 SCREWper bill only jdr 11/27/2020 1303pm Generic Implant 03 Case [id number] Start: 11-26-2020 Comment on above: Description: Convert ed from [facility]. Please see archived information for full log information. Additional Information:55 SCREWper bill only jdr 11/27/2020 1303pm Plate Case [id number] Start: 11-26-2020 Comment on above: Description: Convert ed from [facility]. Please see archived information for full log information. Additional Information:Neftali de la cruz jdr 11/27/2020 1303pm Spacer, Modulus Xlw, [id number], 10 Deg Case [id number] Start: 11-26-2020 Comment on above: Description: Convert ed from [facility]. Please see archived information for full log information. Goals Date Patient Goal Desired Activity /State Functional Status Date Assessment Result Facility Functional observable [facility] Mental Status Date Assessment Result Facility 11-26-2020 Cognitive functi ons [id number] [facility] Clinical Notes 03-10-2018 to 03-27-2024 Karon Rodriguez NP - 03/27/2024 9:40 AM Jeffrey Blackmon MD - 01/17/2024 8:30 AM EDT Note Date & Type Note Facility 03-27-2024 Note - From: Whitney Jordan RN ([facility] ([facility])) To: Mariah Machado CNP; Sent: 03/27/2024 07:29:10 EST Subject: FW: Medication Management Due Date/Time: 03/27/2024 08:58:00 EST Caller Name: BERNABE LYLY HAUSER; Caller Number: Alexander , From: [facility] #[id number] To: Kimi Weiss DO Sent: March 25, 2024 7:58:45 AM AIRCRAFT DESIGN ENGINEER Subject: Medication Management Due: March 26, 2024 12:30:42 AM AIRCRAFT DESIGN ENGINEER On Hold Pending Signature Dispensed Drug: ONE [...] 0 Substitutions Allowed Notes from Pharmacy: Submitted: Order:!-[facility] Request. (ONE TOUCH VERIO FLEX BG MONITOR) See Instructions USE DIRECTED DAILY Qty: 1 EA Days Supply: 30 Refills: 0 Substitutions Allowed Route To Pharmacy - [facility] #[id number] Signed by Mariah Machado APRN, CNP 03/27/2024 10:48:00 EST Not Approved: New Rx to follow !-[facility] Request. (ONE TOUCH VERIO FLEX BG MONITOR) USE DIRECTED DAILY Qty: 1 EA Days Supply: 30 Refills: 0 Substitutions Allowed Route To [facility] #[id number] Signed by Mariah Machado APRN, CNP From: Mariah Machado APRN, CNP To: [facility] #[id number] Sent: 03/27/2024 10:48:58 EST Subject: FW: Medication [...] 90 Refills: 1 Substitutions Allowed Route To [facility] #[id number] Signed by Mariah Machado APRN, CNP Approved with modifications: fenofibrate (FENOFIBRATE 48MG TABLETS) TAKE 1 TABLET BY MOUTH DAILY Qty: 90 tab(s) Days Supply: 90 Refills: 1 Substitutions Allowed Route To [facility] #[id number] Signed by Mariah Machado APRN, CNP Approved with modifications: rivaroxaban (XARELTO 20MG TABLETS) TAKE 1 TABLET BY MOUTH DAILY Qty: 90 tab(s) Days Supply: 90 Refills: 1 Substitutions Allowed Route To [facility] #[id number] Signed by Mariah Machado APRN, CNP [facility] 03-27-2024 History of Present illness Narrative [...] a new pain management provider at the [facility] soon. He denies any further concerns [...] headache syndrome 04/22/2011 DVT (deep venous thrombosis) ([facility]) Encounter for long-term (current) drug use 09/10/2011 Pulmonary embolism ([facility]) Past Surgical History: Procedure Laterality Date BACK [...] wrist extensors , wrist flexor , and corduroy cutter operator strength 5/5. LUE strength deltoid , biceps , triceps , wrist extensors , wrist flexor , and corduroy cutter operator strength 5/5. RLE strength illopsoas, quadriceps, tibialis [...] knee reflex 0. Brooke's sign negative Coordination: Qnwmid-ax-yxjw testing normal. Rapid alternating movements are normal Gait: Ambulates with a cane, antalgic gait. Difficulty raising from a seated position. Review and summary of old records: MRI of the brain with and without contrast at [facility] on 02/16/23: No acute intracranial process. [...] of the lumbar spine w/o contrast at [facility] () on 05/12/22: Status post interbody [...] clinically significant. 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 Essential hypertension ([facility]) PLAN: - Follow closely with primary care [...] All questions answered. documented in this encounter [facility] 03-20-2024 Note - From: Whitney Jordan RN ([facility])) To: Mariah Machado CNP; Sent: 03/20/2024 07:25:53 EST Subject: FW: Medication Management Due Date/Time: 03/20/2024 03:27:00 EST Caller Name: LYLY QUINN; Caller Number: Alexander , Oral From: [facility] #[id number] To: Kimi Weiss DO Sent: March 18, 2024 2:27:30 AM AIRCRAFT DESIGN ENGINEER Subject: Medication Management Due: March 19, 2024 1:11:06 AM AIRCRAFT DESIGN ENGINEER On Hold Pending Signature Dispensed Drug: DULoxetine [...] 0 Substitutions Allowed Notes from Pharmacy: Submitted: Order:!-[facility] Request. (ONE TOUCH VERIO FLEX BG MONITOR) See Instructions USE DIRECTED DAILY Qty: 1 EA Days Supply: 30 Refills: 0 Substitutions Allowed Route To Pharmacy - [facility] #[id number] Signed by Mariah Machado APRN, CNP 03/20/2024 09:22:00 EST Not Approved: New Rx to follow !-[facility] Request. (ONE TOUCH VERIO FLEX BG MONITOR) USE DIRECTED DAILY Qty: 1 EA Days Supply: 30 Refills: 0 Substitutions Allowed [id number] Signed by Mariah Machado APRN, CNP From: Mariah Machado APRN, CNP To: [facility] #[id number] Sent: 03/20/2024 09:23:45 EST Subject: FW: Medication [...] 0 Substitutions Allowed Route To Pharmacy - [facility] #[id number] Signed by Mariah Machado APRN, CNP Approved with modifications: lisinopril (LISINOPRIL 20MG TABLETS) TAKE 1 TABLET BY MOUTH DAILY Qty: 90 tab(s) Days Supply: 90 Refills: 0 Substitutions [id number] Signed by Mariah Machado APRN, CNP [facility] 02-08-2024 Note - From: Whitney Jordan RN ([facility] ([facility])) To: Kimi Weiss DO; Sent: 02/08/2024 08:11:19 EDT Subject: FW: Medication Management Due Date/Time: 02/08/2024 17:02:00 EDT Caller Name: LYLY QUINN; Caller Number: H , M From: [facility] #[id number] To: Kimi Weiss DO Sent: February 07, 2024 4:02:35 PM CDT Subject: Medication Management Due: February 08, 2024 12:04:07 AM CDT On Hold Pending Signature Dispensed Drug: metFORMIN (metFORMIN 500 mg oral tablet), TAKE 1 TABLET BY MOUTH TWICE DAILY Quantity: 180 tab(s) Days Supply: 90 Refills: 0 Substitutions Allowed Notes from Pharmacy: Patient requests 90 days supply From: Kimi Weiss DO To: [facility] #[id number] Sent: 02/08/2024 09:31:55 EDT Subject: FW: Medication Management Submitted: Complete:metFORMIN (metFORMIN 500 mg oral tablet) Signed by Kimi Weiss DO 02/08/2024 09:31:00 EDT Approved metFORMIN (METFORMIN 500MG TABLETS) TAKE 1 TABLET BY MOUTH TWICE DAILY Qty: 180 tab(s) Days Supply: 90 Refills: 0 Substitutions Allowed Route To Pharmacy - [facility] #[id number] Note from Pharmacy: Patient requests 90 days supply [facility] 01-17-2024 History of Present illness Narrative Patient returns for follow-up. I saw him about a year and a half ago. 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 He began having recurrent right leg radicular symptoms and chronic lower back pain. We did an MRI last year which did not show any significant stenosis. He is here today with complaints of progressively worsening right lower extremity pain and numbness. He states that the leg changes color and temperature, it swells frequently. He also notes chronic back pain. He has been working on weight loss and doing aerobic exercise. On exam he does not have any focal neurologic deficits. No upper extremity weakness. No hyperreflexia, negative Mickey sign. No other pathologic reflexes or long tract signs. His legs do appear swollen today. At this point I reassured him that from a surgical standpoint I do not think there is anything serious going on, I suspect he may have some underlying CRPS. He has been working with pain management locally in [place] but they have just been doing epidural injections and recently told him there is nothing more that they can do. I do think it is worthwhile for him to follow-up with Dr. Henriquez and PM&R for a fresh set of eyes on this problem. I suspect he has underlying CRPS, but ultimately this might be heading towards spinal cord stimulator intervention. Would be happy to see him back on an as-needed basis. *This note was dictated using speech recognition software and was not corrected for spelling or grammatical errors* documented in this encounter [facility] Work Phone: 09-07-2023 Procedure note [facility] 08-04-2023 Note - From: Erica Espinoza ([facility] ([facility] To: Kimi Weiss DO; Sent: 07/30/2023 09:07:59 EDT Subject: FW: Medication Management Due Date/Time: 07/30/2023 17:37:00 EDT Caller Name: LYLY QUINN; Caller Number: , Lisinopril 30 mg was refilled last month on 06/24/23 for a 90 day supply with 3 refills. From: [facility] #[id number] To: Kimi Weiss DO Sent: July 29, 2023 4:37:37 PM CDT Subject: Medication Management Due: July 30, 2023 1:56:01 AM CDT On Hold Pending Signature Dispensed Drug: lisinopril (lisinopril 10 mg oral tablet), TAKE 1 TABLET BY MOUTH DAILY Quantity: 90 tab(s) Days Supply: 90 Refills: 0 Substitutions Allowed Notes from Pharmacy: From: Kimi Weiss DO To: [facility] #[id number] Sent: 08/04/2023 06:24:31 EDT Subject: FW: Medication Management Submitted: Complete:lisinopril (lisinopril 30 mg oral tablet) Signed by Kimi Weiss DO 08/04/2023 06:24:00 EDT Approved with modifications: lisinopril (LISINOPRIL 10MG TABLETS) TAKE 1 TABLET BY MOUTH DAILY Qty: 90 tab(s) Days Supply: 90 Refills: 3 Substitutions Allowed Route To Pharmacy - [facility] #[id number] [facility] 04-22-2023 Evaluation note Encounter Date Diagnosis Assessment Notes Apr, Lumbar back sprain (ICD-10 - S33.5XXA) [employer] Other 12-14-2023 Evaluation note* Encounter Date Diagnosis Assessment Notes Treatment Notes Treatment Clinical Notes Mar, Chronic, continuous use of opioids (ICD-10 - F11.90) [employer] Other 12-14-2023 Evaluation note* Encounter Date Diagnosis [...] note writ ten by Lawanda Yuen RN, Course Instructor. Edited and approved by Dr. Charles Claros MD. [employer] Other 10-05-2023 Evaluation note* Encounter Date Diagnosis [...] note writ ten by Doris Weiss LPN, Course Instructor. Edited and approved by Dr. Charles Claros MD. [employer] Other 10-05-2023 Evaluation note* Encounter Date Diagnosis Assessment Notes Treatment Notes Treatment Clinical Notes Jan, Lumbar back sprain (ICD-10 - S33.5XXA) [employer] Other 06-20-2023 Evaluation note* Encounter Date Diagnosis [...] to patients condition. Saliva sample performed through [employer] today, will await confirmatory results. Sep, Other chronic pain (ICD-10 - G89.29) Sep, Other Above note writ ten by Doris Weiss LPN, Course Instructor. Edited and approved by Dr. Charles Claros MD. [employer] Other 06-20-2023 Evaluation note* Encounter Date Diagnosis Assessment Notes Treatment Notes Treatment Clinical Notes Sep, Lumbar back sprain (ICD-10 - S33.5XXA) [employer] Other 02-13-2023 Evaluation note* Encounter Date Diagnosis [...] note writ ten by Dutch Taylor MA, Course Instructor. Edited and approved by Dr. Charles Claros MD. [employer] Other 02-13-2023 Evaluation note* Encounter Date Diagnosis Assessment Notes Treatment Notes Treatment Clinical Notes May, Lumbar back sprain (ICD-10 - S33.5XXA) [employer] Other 11-02-2022 Evaluation note* Encounter Date Diagnosis [...] note writ ten by Doris Weiss LPN, Course Instructor. Edited and approved by Dr. Charles Claros MD. [employer] Other 11-02-2022 Evaluation note* Encounter Date Diagnosis Assessment Notes Treatment Notes Treatment Clinical Notes Feb, Lumbar back sprain (ICD-10 - S33.5XXA) [employer] Other 08-29-2022 Evaluation note* Encounter Date Diagnosis [...] note writ ten by Doris Weiss LPN, Course Instructor. Edited and approved by Dr. Charles Claros MD. [employer] Other 05-31-2022 Chief complaint Narrative - Reported* An interactive audio and video telecommunication system which permits real time communications between the patient (at the originating site) and provider (at the distant site) was utilized to providethis telehealth service. * Verbal consent was requested and obtained from LYLY QUINN on this date, 09/16/2021 02:15 PM , for atelehealth visit. [facility] Work Phone: 1(927) 685-560804-06-2022 Evaluation note* Encounter Date Diagnosis Assessment Notes [...] note writ ten by Dutch Taylor CMA, Course Instructor. Edited and approved by Dr. Charles Claros MD. [employer] Other 03-02-2022 Chief complaint Narrative - Reported* An interactive audio and video telecommunication system which permits real time communications between the patient (at the originating site) and provider (at the distant site) was utilized to providethis telehealth service. * Verbal consent was requested and obtained from LYLY QUINN on this date, 06/18/2021 02:15 PM , for atelehealth visit. [facility] Work Phone: 1(163) 522-393501-05-2022 Chief complaint Narrative - Reported* An interactive audio and video telecommunication system which permits real time communications between the patient (at the originating site) and provider (at the distant site) was utilized to providethis telehealth service. * Verbal consent was requested and obtained from LYLY QUINN on this date, 04/23/2021 10:00 AM , for atelehealth visit. [facility] Work Phone: [phone] 811-545601-05-2022 Chief complaint Narrative - Reported* An interactive audio and video telecommunication system which permits real time communications between the patient (at the originating site) and provider (at the distant site) was utilized to providethis telehealth service. * Verbal consent was requested and obtained from LYLY QUINN on this date, 04/23/2021 10:00 AM , for atelehealth visit. [facility] Work Phone: 1([phone]) 189-599512-15-2021 Evaluation note* Encounter Date Diagnosis Assessment Notes [...] note writ ten by Lawanda Yuen CMA, Course Instructor. Edited and approved by Dr. Charles Claros MD. [email or web address] Other 10-20-2021 Evaluation note* Encounter Date Diagnosis [...] note writ ten by Dutch Taylor MA, Course Instructor. Edited and approved by Dr. Charles Claros MD. [employer] Other 08-10-2021 NoteSend Summary: Discharge Summary Providers: Provider RoleProvider Name Kimi Alarcon Zachary Note Recipients: Bee Blackmon MD Jackson, Steven P, DO - [phone] [] Discharge: Summary: Admission Date: .26-Nov-2020 10:44:00 [...] visit. Immunizations: Immunizations: 19-Nov-2020 SARS-CoV-2 (COVID-19): Immunizations, [employer] COVID-19 Vacc 30 mcg/0.3ml IM suspension, 01-Jul-2020 SARS-CoV-2 (COVID-19): Immunizations, [employer] COVID-19 Vacc 30 mcg/0.3ml IM Suspension, 22-Jul-2020 [...] Follow-Up Appointment Scheduled Date/Time: 09-Dec-2020 11:15 Location: [address] [place] [address] [address], Phone Number: Office: Sec. [place]) - [phone] Discharge Medications: Home Medication lisinopril 20 mg [...] Dx: acute post-operative pain (more content not included)...[facility]08-10-2021 NotePost Operative Note: PreOp Diagnosis: lumbar stenosis with radiculopathy Post-Procedure Diagnosis: same as preop Procedure: 1. L3-4 XLIF 2. 3. 4. 5. Surgeon: Neymar Resident/Fellow/Other Production Officer: Daniela Anesthesia: GETA Estimated Blood Loss (mL): [...] Completion Last Updated: 10-Dec-2020 17:38 by Bee Blackmon)[facility]08-10-2021 NotePreop Checklist: Preop Checklist: Procedure TypeL3-4 lateral lumbar fusion with instrumentation Temperature C36.4 degrees C Temperature F97.5 degrees F Heart Rate92 beats per minute Respiratory Rate16 breath per minute Blood Pressure Nrqwwjrg708 mm/Hg Blood Pressure Cdmbeqklw03 mm/Hg NPO [id number] 22:00 ID Band Onyes Allergy Bandno known allergies Consent Signedyes H&P Completeyes Anesthesia Assessment Completedyes EKG Performedsee results tab Chest X-Ray Performedsee results tab Chlorhexadine Bath Givennot applicable Nasal Antiseptic Appliednot applicable Hair Washednot applicable Soap and water bath with hair shampoo the night before surgeryyes Hat placed on prior to transportnot applicable SCD's Appliedsent to OR JORGE Hose Appliednot ordered Denturesnot applicable Prostheticsnot applicable [...] Checklist Last Updated: 26-Nov-2020 12:09 by Pat Padilla)[facility]08-10-2021 NoteHistory & Physical Reviewed: I have reviewed [...] the note. I personally evaluated the patient [id number] Electronic Signatures: Bee Blackmon) (Signed 09-Dec-2020 19:41) Authored: Note Completion Co-Signer: History & Physical Reviewed, ERAS, Consent, Note Completion Kevin Marshall (Resident)) (Signed 26-Nov-2020 05:52) Authored: History & Physical Reviewed, ERAS, Consent, Note Completion Last Updated: 09-Dec-2020 19:41 by Bee Blackmon)[facility]05-05-2021 Evaluation note* Lymphatic: No significant lymphadenopathyNeurological: A&Ud0Vxsnxqgqosnakxvi: Soft, ntndCardiovascular: RRR by peripheral pulsesPsychological: Appropriate mood and behaviorRespiratory/Thorax: Breathing normally on RAHead/Neck: Neck supple, trachea midlineEyes: EOMI, clear scleraSkin: Warm and dry, no rashesMusculoskeletal: L1: SILTL2: SILT Hip flexors 5/5 Right; 5/5 LeftL3: SILT Knee extension 5/5 Right; 5/5 LeftL4: SILT Tib Ant. (Dorsiflexion) 5/5 Right; 5/5 LeftL5: SILT EHL 5/5 Right; 5/6ZrqkD4: SILT Planter flexion 5/5 Right; 5/5 LeftConstitutional: Awake/alert/oriented x3, no distress, alert and cooperative [facility]02-01-2020 History of Present illness Narrative* 55-year-old male [...] He was evaluated by another surgeon in [facility], they did recommend surgery however he has a history involving multiple DVTs and pulmonary embolism. After his last operation he was not bridged preoperatively on Lovenox, and he did not receive any anticoagulation until 2 weeks after surgery. Despite having an IVC filter in place he through another pulmonary embolism. He follows up with a tube laser operator in [place]. * He is otherwise in good health. [...] 26. I have reached out to his tube laser operator to confirm plans for perioperative anticoagulation. He is fully vaccinated for COVID-19. * This note was dictated using speech recognition software and was not corrected for spelling or grammatical errors. [facility] Work Phone: 1(403) 503-880302-01-2020 History of Present illness Narrative* 55-year-old male [...] He was evaluated by another surgeon in [facility], they did recommend surgery however he has a history involving multiple DVTs and pulmonary embolism. After his last operation he was not bridged preoperatively on Lovenox, and he did not receive any anticoagulation until 2 weeks after surgery. Despite having an IVC filter in place he through another pulmonary embolism. He follows up with a tube laser operator in [place]. * He is otherwise in good health. [...] 26. I have reached out to his tube laser operator to confirm plans for perioperative anticoagulation. He is fully vaccinated for COVID-19. * This note was dictated using speech recognition software and was not corrected for spelling or grammatical errors. [facility] Work Phone: 1([phone]) 340-614001-06-2019 History of Present illness Narrative* Patient is [...] not corrected for spelling or grammatical errors. [facility] Work Phone: 1(159) 202-750012-18-2018 History of Present illness Narrative* Patient is [...] not corrected for spelling or grammatical errors. [facility] Work Phone: 1(285) 614-868611-22-2018 History of Present illness Narrative* Patient is [...] not corrected for spelling or grammatical errors. [facility] Work Phone: Evaluation note* Diagnosis Onset Date Resolution Status Chronic pain acute Chronic, continuous use of opioids acute Other spondylosis with radiculopathy, lumbar region acute [facility] Work Phone: Evaluation note* Diagnosis Onset Date Resolution Status Chronic pain acute Chronic, continuous use of opioids acute Other spondylosis with radiculopathy, lumbar region acute Chronic pain acute Chronic, continuous use of opioids acute Other spondylosis with radiculopathy, lumbar region acute [facility] Work Phone: Evaluation note* Diagnosis Chronic cluster headache, not intractable- Primary Essential hypertension (CMS/HCC) Unspecified essential hypertension History of blood clots documented in this encounter [facility] HealthcareEvaluation note* Diagnosis Postlaminectomy syndrome, lumbar region- Primary documented in this encounter [facility] Work Phone: History general Narrative - Reported* [...] dr) Hospitalization History pulmonary embolism 2 alfa [employer] Other History of Present illness Narrative* Patient [...] not corrected for spelling or grammatical errors [facility] Work Phone: History of Present illness Narrative* [...] * Lives with: Spouse * 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[employer] * Sleep patterns: 8hrs YANNI on CPAP * Alcohol: 1-2 on the weekends * Tobacco: None * Recreational Drugs: None * Exercise: Therapy for back 2 x weekly [facility] Work Phone: History of Present [...] and V8 * L - yogurt, granola (nepali yogurt, 1/4 cup granola), cream of corn 1 cup * Snack - pop corner 100 calorie bag * D - veggie burger with indonesian cheese & onion (2 burgers) low calorie [...] * Lives with: Spouse * 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 * Continued topiramate as adjunct to diet/exercise last visit. 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 GS-Gkgzrmsknrbv-Xhmoldxn Work Phone: History of Present illness Narrative* [...] is going to do this in the [place] at [facility], we will [...] not corrected for spelling or grammatical errors. WM-Bitkutyjgybu-Qzbyodwr Work Phone: Hospital Discharge instructions* Activity:activity with [...] Follow-Up AppointmentScheduled Date/Time: 09-Dec-2020 11:15Location: [address], Phone Number: Office: ([place], Sec.) - [phone]: Please Call Tara Gonzalez RN at [phone] For Any Post-Op Questions [facility] for referral (narrative)* Reason for Referral: [id number] fusion [facility] Chief Complaint * A telephone visit (audio [...] section and content) DATE CREATED AUTHOR 09/29/2021 [facility] DATE CREATED AUTHOR AUTHOR'S ORGANIZ ATION 05/01/2022 [facility] dical Specialist DATE CREATED AUTHOR AUTHOR'S ORGANIZ ATION 05/05/2022 [employer] DATE CREATED AUTHOR AUTHOR'S ORGANIZ ATION 05/16/2022 [facility] DATE CREATED AUTHOR AUTHOR'S ORGANIZ ATION 06/24/2022 [facility] DATE CREATED AUTHOR AUTHOR'S ORGANIZ ATION 07/28/2022 [facility] DATE CREATED AUTHOR AUTHOR'S ORGANIZ ATION 01/17/2024 [facility] DATE CREATED AUTHOR AUTHOR'S ORGANIZ ATION 03/30/2024 [facility] dical Specialists [facility] DATE CREATED AUTHOR AUTHOR'S ORGANIZ ATION 04/19/2024 [facility] DATE CREATED AUTHOR AUTHOR'S ORGANIZ ATION 05/08/2024 [facility] REASON FOR VISIT (unrecogniz ed section and [...] Provider Active Sta rt: September 15, 2023 Loan Servicing Specialist Relationship Specialty Start Date End Date Kimi Weiss MD [address] [place] [id number] PCP - General Family Medicine 08/09/23 Loan Servicing Specialist Relationship Specialty Start Date End Date Kimi Weiss MD [address] [place] [id number] PCP - General Family Medicine 08/09/23 Loan Servicing Specialist Relationship Specialty Start Date End Date Kimi Weiss DO [address] [place] [id number] PCP - General 7/19/21 Goals (unrecognized section and content) Goals may [...] BE BASED ON THE PRIMARY CLINICAL RECORDS. [facility]. provides no warranty or guarantee of the accuracy or completeness of information in this document.
--- NOTE | 2024-05-09 16:05 | XR_ITS ---
The [address] [address] Patient Name: LYLY KIDD MRN: [id number] date: 1965 Sex: M Assigned Patient Location: RAD Current Patient Location: RAD Accession/Order Number: [id number] Exam Date: 05/09/2024 15:53 Report Date: 05/09/2024 17:00 At the request of: KIMI JACINTO Procedure: XR chest 2V EXAM: XR chest 2V HISTORY: Cough COMPARISON: 04/06/2024 TECHNIQUE: Upright PA and lateral chest x-ray FINDINGS: The heart is not enlarged and the vasculature is not distended. No acute infiltrate, effusion or pneumothorax is identified. The lungs are now clear. The osseous structures are grossly intact. XR/XR chest 2V IMPRESSION: No acute infiltrate or evidence of cardiac decompensation. Electronically authenticated by: TAHMINA MEJIA Date: 05/09/2024 17:00
== END 2024-05-09 15:47 | disposition home or self-care (01) ==
LOC: RAD 15:47
PROVIDERS: PCP Family Medicine; Visit Provider Family Medicine
DX: R05.9 Cough, unspecified (principal)
CPT/HCPCS: 71046

== ENCOUNTER 2024-05-19 10:15 | Outpatient (OUT) | payer OTHER, SELFPAY ==
[2024-05-19 11:24] LABS: Estimated Average Glucose 171 mg/dL; Glycohemoglobin A1C 7.6 % (4.5-6.2)
[2024-05-19 11:54] LABS: Free T3 2.88 pg/mL (2.18-3.98); Thyroid Stimulating Hormone 1.066 uIU/mL (0.358-3.740)
[2024-05-21 11:06] LABS: PTH, Intact 17 pg/mL (15-65)
== END 2024-05-19 10:16 | disposition home or self-care (01) ==
LOC: LAB 10:17
PROVIDERS: PCP Family Medicine; Visit Provider Family Medicine
DX: R79.89 Other specified abnormal findings of blood chemistry (principal); E11.69 Type 2 diabetes mellitus with other specified complication
CPT/HCPCS: 36415; 82306; 82310; 83036; 83970; 84443; 84481

== ENCOUNTER 2024-05-24 08:04 | Outpatient (OUT) | payer OTHER, SELFPAY ==
--- OUTSIDE RECORDS SUMMARY | 2024-05-24 08:12 | XMS_ITS | CCD ---
Author Organization [facility] Care Team Providers Care Casino Cage Supervisor Name Role Phone Unknown, Referring Provider Unavailable Unav ailable Kimi Weiss Unavailable Unavailable Unavailable Kimi Weiss Unavailable Bee Blackmon Unavailable Charles Claros Unavailable Dr. Kimi Weiss Primary Care Alondra Blackmon, Dr. Bee Rocha Attending Alondra BENITEZ, DR DANIEL Ngo Consulting Unavailable DR KIMI WEISS Primary Care Unavailable JESS LEVI Attending Unavailable JESS LEVI Admitting Unavailable JESS LEVI Consulting Unavailable DANIEL MALDONADO Unavailable Bee Blackmon Attending Unavailable Abhishek, Dr. Kimi Venegas Primary Care DO Kimi Etienne Primary Care Provider [phone] MD Charles Claros Attending Provider [phone] BEE BLACKMON Attending Unavailable KIMI WEISS Primary Care UnavailKimi Webber MD Primary Care Provider THALIA SANDY Attending Unavailable KARON RODRIGUEZ Attending Unavailable KARON RODRIGUEZ Attending Unavailable KARON RODRIGUEZ Referring Unavailable Kimi Weiss DO Primary Care Provider Kimi Weiss DO Primary Care Provider Des Contreras DO Emergency Provider [phone] Leslie Sanchez MD Admit Provider Leslie Sanchez MD Attending Provider Nancy BAZAN, Wendy Other Provider Unavailable Yara ANSARI, Jacinto Other Provider Lencho ANSARI, Des Santizo Other Provider Amanda ANSARI, Iza Other Provider Brian Blanchard DO Emergency Provider [phone] Brian Blanchard Admitting Unavailable Brian Blanchard Attending Unavailable Abhishek, Kimi Primary Care Unavailable Abhishek, Kimi Primary Care Unavailable Charles Claros Admitting Unavailable Charles Claros Attending Unavailable Wendy Cruz Consulting Unavailable Abhishek, Kimi Primary Care Unavailable Daromar, Obaydah M Admitting Unavailable Daromar, Obaydah M Attending Unavailable Jacinto Livingston Consulting Unavailable Des Musa Consulting Alondra Patel, Iza Consulting Unavailable Abhishek, Kimi Primary Care Unavailable Charles Claros Admitting Unavailable Hyacinth, Charles Attending Unavailable Abhishek, Kimi P Primary Care Unavailable Abhishek, Kimi P Attending Unavailable Abhishek, Kimi P Primary Care Unavailable [place], Kimi P Attending Unavailable Abhishek, Kimi P Attending Unavailable Abhishek, Kimi P Primary Care Unavailable [place], Kmii P Primary Care Unavailable [place], Kimi P Attending Unavailable Abhishek, Kimi P [...] Primary Care Unavailable Max, Georgina Admitting Unavailable Max, Georgina Attending Unavailable Abhishek, Kimi P Primary Care Unavailable Abhishek, Kimi P Attending Unavailable Abhishek, Kimi P Admitting Unavailable Abhishek, Kimi P Attending Unavailable Abhishek, Kimi P Primary Care Unavailable Camron Lackey DO Consulting Unavailable Abhishek, Kimi P Attending Unavailable Abhishek, Kimi P Primary Care Unavailable Abhishek, Kimi P Primary Care Unavailable Abhishek, Kimi P Attending Unavailable Abhishek, Kimi P Primary Care Unavailable Abhishek, Kimi P Attending Unavailable Allergies Allergy Classification Reported Allergen(s) Allergy Type Date of Onset Reaction(s) Facility (1 source) ALLERGIES NOT ON FILE; Translations: [ALLERGIES NOT ON FILE] Propensity to adverse reactions (disorder) [facility] Medications Current Medications Medication Drug [...] Start: 04-08-2021 take 1 capsule by mo [facility] every four hours as needed for headache Fmowwshdtw-LJAI-Oembhhmy 50-300-40 MG Oral Capsule TAKE 1 CAPSULE [...] tablet by mouth twice daily as needed for pain Hydrocodone-Acetaminophen 5-325 mg table t Discontinued 1 TAB PO Twice daily as needed for Pain 0 June 15, 2019 11:03am February 28, 2020 12:49pm HYDROcodone-acet aminophen (Baxter) 5-325 MG tablet Take by mouth Active [id number] 200 actuat albuterol 0.09 mg/actuat metered dose inhaler (1 source) beta2-Adrenergic Agonist Start: 04-10-2024 Albuterol Sulfate 90 mcg/actuation HFA aerosol inhaler Active 1 INH INHALATION Q6H as needed for shortness of breath April 10, 2024 12:00am Blood Glucose Monitoring Suppl (OneTouch Verio Flex System) w/Device kit (2 sources) Start: 03-20-2024 Blood Glucose Monitoring Suppl (OneTouch Verio Flex System) w/Device kit USE DIRECTED DAILY 03/20/2024 Active Blood-Glucose Meter (Onetouch Verio Flex Meter) misc (1 source) Start: 03-31-2024 Blood-Glucose Meter (Onetouch Verio Flex Meter) misc Active EACH .ROUTE .MEDSUPPLY March 31, 2024 12:00am As directed cyclobenzaprine hydrochloride 10 mg oral tablet (20 sources) Muscle Relaxant Start: 02-28-2020 End: 03-05-2020 take 1 tablet by mouth at bedtime cyclobenzaprine (Flexeril) 10 MG tablet Take 10 mg by mouth at bedtime 04/22/2023 Active DULoxetine 60 mg delayed release oral capsule (20 sources) Serotonin and Norepinephrine Reuptake Inhibitor Start: 03-31-2024 take 1 capsule by mouth once daily Duloxetine 60 mg capsule,delayed release(DR/EC) Active 60 MG PO Daily March 31, 2024 12:00am Start: 08-01-2020 take 1 capsule by [facility] once daily DULoxetine HCl - 60 MG Oral Capsule Delayed Release Particles TAKE 1 CAPSULE BY MOUTH DAILY. DO NOT CRUSH OR CHEW Quantity: 90 Refills: 0 Ordered: 16-Mar-2021 DO Start : 01-Aug-2020 Active Start: 07-12-2020 DULoxetine HCl - 30 MG Oral Capsule Delayed Release Particles Quantity: 14 Refills: 0 Ordered: 12-Jul-2020 DO Start : 12-Jul-2020 Complete esomeprazole 20 mg delayed release oral capsule (20 sources) Proton Pump Inhibitor Start: 12-28-2017 take 1 capsule by mouth once daily Esomeprazole Magnesium (Nexium) 20 mg Capsule,Delayed Release(Dr/Ec) Active 20 MG PO Daily December 27, 2017 11:00pm Start: 12-28-2017 take 10 mg by mouth [...] Ordered: 19-Nov-2020 Tara Gonzalez Generic Substitution Allowed lisinopril 30 mg oral tablet (20 sources) Angiotensin Converting Enzyme Inhibitor Start: 05-15-2024 take 1 tablet by mouth once daily Lisinopril 30 mg tablet Active 30 MG PO Daily May 15, 2024 12:00am Start: 09-07-2023 End: 03-31-2024 take 1 tablet by mouth once daily Lisinopril 30 mg tablet Discontinued 30 MG PO Daily September 06, 2023 11:00pm March 31, 2024 9:57am Start: 08-05-2023 End: 09-07-2023 take 2 tablets by mouth once daily Lisinopril 10 mg tablet Discontinued 20 MG PO Daily August 05, 2023 8:05am September 07, 2023 8:17am Start: 08-05-2023 End: 09-07-2023 take 20 mg by mouth once daily Lisinopril Discontinued 20 MG PO Daily August 05, 2023 9:05am September 07, 2023 9:17am Start: 10-08-2020 take 1 tablet by azucena th once daily Lisinopril 20 MG Oral Tablet TAKE 1 TABLET BY MOUTH DAILY Quantity: 90 Refills: 0 Ordered: 13-Apr-2021 DO Start : 08-Oct-2020 Active Start: 12-28-2017 End: 08-05-2023 take 1 tablet by mouth once daily Lisinopril 10 mg tablet Discontinued 10 MG PO Daily December 27, 2017 11:00pm August 05, 2023 8:05am lisinopril 20 MG tablet Indications: Hypertension Take 30 mg by mouth Daily Active LORazepam 1 mg oral tablet (1 source) Benzodiazepine Start: 05-15-2024 take 1 tablet by mouth every six hours as needed for anxiety Lorazepam (Ativan) 1 mg tablet Active 1 MG PO Every 6 hours as needed for anxiety 14 7 May 15, 2024 12:00am metFORMIN hydrochloride 500 mg oral tablet (1 source) Biguanide Start: 03-31-2024 take 2 tablets by mouth twice daily Metformin 500 mg tablet Active 1000 MG PO Twice daily March 31, 2024 12:00am Ozempic, 0.25 or 0.5 MG/DOSE, 2 MG/3ML solution pen-injector (2 sources) Start: 02-24-2024 inject 0.25 mg by subcutaneous injection every week Ozempic, 0.25 or 0.5 MG/DOSE, 2 MG/3ML solution pen-injector INJECT 0.25 MG UNDER THE SKIN EVERY WEEK . ROTATE INJECTION SITES. 02/24/2024 Active rimegepant 75 mg disintegrating oral tablet (3 sources) Start: 03-20-2024 Rimegepant Sulfate (Nurtec) 75 MG tablet dispersible Indications: Chronic migraine without aura without status migrainosus, not intractable (CMS/HCC) DISSOLVE 1 TABLET ON THE TONGUE AT ONSET OF MIGRAINE 8 tablet 2 03/20/2024 Active Semaglutide (1 source) Start: 05-15-2024 inject 1 mg by subcutaneous injection once Semaglutide (Ozempic) 1 mg/dose (4 mg/3 mL) pen injector Active 1 MG SUBCUT MO@0900 May 15, 2024 12:00am sennosides, assisted 8.6 mg oral tablet (1 source) Start: [...] acetaminophen to prevent possible liver damage. acetaminophen 325 mg / oxyCODONE hydrochloride 5 mg oral tablet (14 sources) Opioid Agonist Start: 08-05-2023 End: 05-15-2024 take 1 tablet by mouth twice daily as needed for pain Oxycodone-Acetamin ophen 5-325 mg tablet Discontinued 1 TAB PO Twice daily as needed for pain 60 30 August 06, 2023 May 15, 2024 1:43pm Start: 07-09-2018 End: 06-13-2019 Oxycodone-Acetaminophen (Per cocet) 5-325 mg tablet Discontinued 1 TAB PO .Q12 as needed for pain July 09, 2018 June 13, 2019 10:45pm aspirin 81 mg chewable tablet (1 source) Platelet Aggregation Inhibitor, Nonsteroidal Anti-inflammatory Drug Start: 04-10-2024 End: 04-13-2024 take 1 tablet by mouth once daily Aspirin 81 mg tablet,chewable Discontinued 1 TAB PO Daily April 10, 2024 12:00am April 13, 2024 2:33pm carisoprodol 350 mg oral tablet (10 sources) Muscle Relaxant Start: 06-13-2019 End: 02-28-2020 take 1 tablet by mouth three times daily as needed for pain Carisoprodol 350 mg tablet Discontinued 350 MG PO Three times daily as needed for Muscle Pain 0 June 15, 2019 11:03am February 28, 2020 12:49pm cephalexin 500 mg oral tablet (6 sources) [...] Complete docusate sodium 100 mg oral capsule (8 sources) Start: 03-05-2020 End: 09-07-2023 take 1 capsule by mouth twice daily Docusate Sodium (Dok) 100 mg Capsule Discontinued 100 MG PO Twice daily 60 March 05, 2020 12:00am September 07, 2023 8:17am Comment on above: Medication should be taken with plenty of water. doxycycline hyclate 100 mg oral capsule (1 source) Tetracycline-clas s Drug Start: 03-31-2024 End: 04-10-2024 take 1 capsule by mouth twice daily Doxycycline Hyclate 100 mg capsule Discontinued 100 MG PO Twice daily 20 March 31, 2024 12:00am April 10, 2024 4:20pm 0.4 ml enoxaparin sodium 100 mg/ml prefilled [...] 48 MG PO Daily June 13, 2019 12:00am Start: 12-28-2017 End: 08-04-2018 take 1 tablet by mouth once daily Fenofibrate Nanocrystallized 48 mg tablet Discontinued 48 MG PO Daily December 27, 2017 11:00pm August 04, 2018 1:35pm gabapentin 300 mg oral capsule (9 sources) Anti-epileptic Agent Start: 09-19-2020 take 1 capsule by mouth twice daily Gabapentin 300 MG Oral Capsule TAKE 1 CAPSULE BY MOUTH TWICE DAILY Quantity: 60 Refills: 0 Ordered: 19-Sep-2020 DO Start : 19-Sep-2020 Complete Start: 03-05-2020 End: 09-07-2023 take 1 tablet by mouth twice daily Gabapentin 600 mg Tablet Discontinued 600 MG PO Twice daily 60 30 March 05, 2020 12:00am September 07, 2023 8:17am 1 ml galcanezumab-gnlm 100 m g/ml prefilled syringe (14 sources) Start: 03-31-2024 End: 04-10-2024 Galcanezumab-Gnlm (Emgality Syringe) 300 mg/3 mL (100 mg/mL x 3) syringe Discontinued MG SUBCUT March 31, 2024 12:00am April 10, 2024 4:21pm Start: 03-27-2024 galcanezumab ( Emgality, 300 MG [...] exacerbation. 3.08 mL 3 03/27/2024 Active Start: 09-07-2023 galcanezumab ( Emgality) 120 MG/ML auto-injector Indications: Chronic migraine without aura without status migrainosus, not intractable (CMS/HCC) INJECT 1 SYRINGE( 120 MG) UNDER THE SKIN ONCE EVERY MONTH 1 mL 2 01/27/2024 Active Start: 08-12-2021 Emgality 120 M G/ML Subcutaneous Solution Auto-injector Quantity: 1 Refills: 0 Ordered: 10-Sep-2021 DO Start : 12-Aug-2021 Active Lidocaine (5 sources) Antiarrhythmic, Amide Local Anesthetic Start: 06-15-2019 End: 02-28-2020 apply 1 dose topically once daily Lidocaine (Aspercreme (Lidocaine)) 4 % Adhesive Patch,Medicated Discontinued 1 PATCH TOPICAL Daily June 15, 2019 12:00am February 28, 2020 12:49pm Start: 06-15-2019 End: 02-28-2020 apply 1 dose topically once daily Lidocaine (Aspercreme (Lidocaine)) 4 % Adhesive Patch,Medicated Discontinued 1 PATCH TOPICAL Daily June 15, 2019 1:00am February 28, 2020 1:49pm methocarbamol 500 mg oral tablet (8 sources) Muscle Relaxant Start: 11-26-2020 End: 12-09-2020 take 2 tablets by mouth every eight hours Methocarbamol 500 MG Oral Tablet TAKE 2 TABLETS BY MOUTH EVERY 8 HOURS Quantity: 90 Refills: 0 Ordered: 25-Dec-2020 DO Start : 26-Nov-2020 Complete Start: 07-04-2018 End: 08-04-2018 take 1 tablet by mouth every four hours Methocarbamol 750 mg tablet Discontinued 750 MG PO Q4H July 03, 2018 11:00pm August 04, 2018 1:35pm Comment on above: May cause drowsiness . Alcohol may intensify this effect. Use care when operating dangerous machinery. methylPREDNISolone 4 mg oral tablet (10 sources) Corticosteroid Start: 2019 End: 2023 take 1 tablet by mouth once Methylprednisolone (Medrol (Samm)) 4 mg tablets,dose pack Discontinued 0 PO .COMPLEX March 05, 2020 12:00am September 07, 2023 8:17am orally per package directions Start: 07-04-2018 End: 08-04-2018 Methylprednisolone (Medrol ( Samm)) 4 mg tablets,dose pack Discontinued 1 TAB PO As Directed July 03, 2018 11:00pm August 04, 2018 1:36pm oxyCODONE hydrochloride 5 mg oral tablet (8 sources) Opioid Agonist Start: 03-05-2020 End: 09-07-2023 take 1 tablet by mouth every four hours as needed for pain Oxycodone 5 mg Tablet Discontinued 5 MG PO Q4H as needed for back pain 20 March 05, 2020 September 07, 2023 8:17am Comment on above: Caution federal law prohibits [...] cause serious breathing problems. polyethylene glycol [id number] mg powder for oral solution (3 sources) [...] 20 MG PO Daily February 28, 2020 12:00am Start: 06-15-2019 End: 02-28-2020 take 1 tablet by mouth twice daily at mealtime Rivaroxaban (Xarelto) 15 mg Tablet Discontinued 15 MG PO Twice daily with meals 42 June 15, 2019 12:00am February 28, 2020 5:32pm Start: 12-28-2017 End: 06-15-2019 take 1 tablet by mouth once daily Rivaroxaban 20 mg tablet Discontinued 20 MG PO Daily December 27, 2017 11:00pm June 15, 2019 11:04am Semaglutide (1 source) Start: 03-31-2024 End: 05-15-2024 Semaglutide (Ozempic) 0.25 mg or 0.5 mg (2 mg/3 mL) pen injector Discontinued 0.25 MG SUBCUT every week March 31, 2024 12:00am May 15, 2024 1:22pm Sennosides (Senna Lax) 8.6 mg Tablet (4 sources) Start: 03-05-2020 End: 09-07-2023 take 2 tablets by mouth once daily at bedtime Sennosides (Senna Lax) 8.6 mg Tablet Discontinued 2 TAB PO Daily at bedtime March 05, 2020 12:00am September 07, 2023 8:18am Start: 03-05-2020 End: 09-07-2023 take 2 tablets [...] Start: 04-23-2021 take 2 tablets by mo [facility] twice daily Topiramate 25 MG Oral [...] Date Documented Da te Episodic/Chronic Abdominal pain (20 sources) Abdominal pain; Translations: [Unspecified abdominal pain] 12-28-2017 Episodic Acquired foot deformities (5 sources) Foot-drop; Translations: [Other acquired deformities of ankle and foot] Onset: 3 Episodic Anxiety disorders (2 sources) Anxiety; Translations: [Anxiety disorder, unspecified] Onset: 5 05-15-2024 Chronic Complications of surgical procedures or medical care [...] [Benign essential hypertension] Onset: 2 08-08-2023 Chronic Fluid and electrolyte disorders (1 source) Bicarbonate level - finding; Translations: [Other disorders of electrolyte and fluid balance, not elsewhere classified] 05-15-2024 Episodic Headache; including migraine (11 sources) Chronic cluster headache; Translations: [Chronic cluster headache, not intractable] Onset: 4 08-08-2023 Chronic Joint disorders and dislocations; trauma-related (15 sources) Derangement of left knee; Translations: [Unspecified internal derangement of left knee] Chronic Nausea and vomiting (15 sources) Nausea; Translations: [Nausea] Episodic Nonspecific chest pain (8 sources) Chest pain, unspecified; Translations: [Chest pain] Onset: 2 Episodic Other acquired deformities (15 sources) Lumbar spondylolisthesis; Translations: [Spondylolisthesis, lumbar region] Episodic Other aftercare (1 source) Other long term care administrator (current) drug therapy; Translations: [OTH DETENTION CURRENT DRUG THERAPY] Onset: 2 Episodic Other aftercare (1 source) correction (current) use of anticoagulants; Translations: [DETENTION CURRNT USE ANTICOAGULANTS] Onset: 2 Episodic Other aftercare (5 sources) Long-term current use of anticoagulant; Translations: [correction (current) use of anticoagulants] 02-28-2020 Episodic Other circulatory disease (5 sources) Inferior vena cava filter in situ; [...] right leg] Episodic Other connective tissue disease (5 sources) Pain in calf; Translations: [Pain in left lower leg] 06-13-2019 Episodic Other lower respiratory disease (5 sources) Pleuritic pain; Translations: [Pleurodynia] 06-13-2019 Episodic Other lower respiratory disease (1 source) Dyspnea; Translations: [Dyspnea, unspecified] 05-15-2024 Episodic Other lower respiratory disease (1 source) Acute lower respiratory tract infection; Translations: [Unspecified acute lower respiratory infection] 03-31-2024 Episodic Other lower respiratory disease (1 source) Unspecified acute lower respiratory infection; Translations: [Other diseases of respiratory system, not elsewhere classified] 03-31-2024 Episodic Other lower respiratory disease (1 source) Dyspnea, unspecified; Translations: [Dyspnea, unspecified] Onset: 5 Episodic Other nervous system disorders (20 sources) Chronic pain; Translations: [Other chronic pain] [...] [Body mass index (BMI) 35.0-35.9, adult] Chronic Other nutritional; endocrine; and metabolic disorders (1 source) Hypomagnesemia; Translations: [Hypomagnesemia] 05-15-2024 Chronic Other nutritional; endocrine; and metabolic disorders (1 source) Hypercalcemia; Translations: [Hypercalcemia] 05-15-2024 Chronic Phlebitis; thrombophlebitis and thromboembolism (5 sources) H/O: thrombosis; Translations: [Personal history of other venous thrombosis and embolism] Onset: 4 08-08-2023 Episodic Pulmonary heart disease (16 sources) Pulmonary embolism; Translations: [Other pulmonary embolism [...] Onset: 1 Resolved: 2 Episodic Substance-related disorders (13 sources) Opioid use, unspecified, uncomplicated; Translations: [Continuous [...] Test Name Value Interpretation Reference Range Facility Outside Recordson 05-22-2024 Outside Records [id number] FF [facility] ED Note - Physicianon 2024 ED Note - Physician [id number] F [facility] Alanine aminotransferase [En zymatic activity/volume] in Serum or PlasmaOrdered By: Brian Blanchard on 05-15-2024 ALT [Catalytic activity/Vol] Alanine aminotransferase [Enzymatic activity/volume] in Serum or Plasma 7-52 [facility] Albumin [Mass/volume] in Ser um or Plasma by Bromocresol green (BCG) dye binding methoOrdered By: Brian Blanchard on 05-15-2024 Albumin BCG dye [Mass/Vol] Albumin [Mass/volume] in Serum or Plasma by Bromocresol green (BCG) dye binding metho 3.5-5.7 [facility] Alkaline phosphatase [Enzyma tic activity/volume] in Serum or PlasmaOrdered By: Brian Blanchard on 05-15-2024 ALP [Catalytic activity/Vol] Alkaline phosphatase [Enzymatic activity/volume] in Serum or Plasma 34-104 [facility] Aspartate aminotransferase [ Enzymatic activity/volume] in Serum or PlasmaOrdered By: Brian Blanchard on 05-15-2024 AST [Catalytic activity/Vol] Aspartate aminotransferase [Enzymatic activity/volume] in Serum or Plasma 13-39 [facility] B-Type Natriuretic Peptideon 05-15-2024 Natriuretic peptide B (Bld) [Mass/Vol] 8.0 pg/mL Normal 5-100 The Count Includes [facility] Comment on above: Result Comment: PERF ORMED BY: [facility] [address] PATHOLOGIST INCIDENT RESPONSE COORDINATOR BRANDON AVITIA M.D. Performed By: #### G LULS #### Point of Care testing , Basophils Auto (Bld) [#/Vol] Ordered By: Brian Blanchard on 05-15-2024 Basophils (Bld) [#/Vol] Automated basophil count 0.0-0.2 [facility] Basophils/100 WBC Auto (Bld) Ordered By: Brian Blanchard on 05-15-2024 Basophils/100 WBC (Bld) Automated basophil % . [facility] Bilirubin.total [Mass/volume ] in Serum or PlasmaOrdered By: Brian Blanchard on 05-15-2024 Bilirubin [Mass/Vol] Bilirubin.total [Mass/volume] in Serum or Plasma 0.3-1.0 [facility] Calcium [Mass/volume] in Ser um or PlasmaOrdered By: Brian Blanchard on 05-15-2024 Calcium [Mass/Vol] Calcium [Mass/volume ] in Serum or Plasma High 8.6-10.3 [facility] Carbon dioxide, total [Moles /volume] in Serum or PlasmaOrdered By: Brian Blanchard on 05-15-2024 CO2 [Moles/Vol] Carbon dioxide, tota l [Moles/volume] in Serum or Plasma Low 21.0-31.0 [facility] Chloride [Moles/volume] in S fina or PlasmaOrdered By: Brian Blanchard on 05-15-2024 Chloride [Moles/Vol] Chloride [Moles/vol ume] in Serum or Plasma 98-107 [facility] Complete Blood Count Auto Di ffon 05-15-2024 Basophils (Bld) [#/Vol] 0.1 10*3/uL Normal 0.0-0.2 The Count Includes [facility] Comment on above: Result Comment: PERF ORMED BY: [place] [address] PATHOLOGIST INCIDENT RESPONSE COORDINATOR BRANDON AVITIA M.D. Performed By: #### B COUNSELOR MARRIAGE AND FAMILY, CMP, CBC, MG, CK, HS TROP #### [address] Basophils/100 WBC (Bld) 0.8 % Normal . The Count Includes [facility] Comment on above: Performed By: #### B COUNSELOR MARRIAGE AND FAMILY, CMP, CBC, MG, CK, HS TROP #### [address] Eosinophils (Bld) [#/Vol] 0.1 10*3/uL Normal 0.0-0.45 The Count Includes [facility] Comment on above: Performed By: #### B COUNSELOR MARRIAGE AND FAMILY, CMP, CBC, MG, CK, HS TROP #### [address] Eosinophils/100 WBC (Bld) 0.7 % Normal . The Count Includes [facility] Comment on above: Performed By: #### B COUNSELOR MARRIAGE AND FAMILY, CMP, CBC, MG, CK, HS TROP #### [address] Erythrocyte distribution width (RBC) [Ratio] 13.7 % Normal 12.0-14.8 The Count Includes [facility] Comment on above: Performed By: #### B COUNSELOR MARRIAGE AND FAMILY, CMP, CBC, MG, CK, HS TROP #### [address] Hematocrit (Bld) [Volume fraction] 45.5 % Normal 38.8-50.0 The Count Includes [facility] Comment on above: Performed By: #### B COUNSELOR MARRIAGE AND FAMILY, CMP, CBC, MG, CK, HS TROP #### [address] Hemoglobin (Bld) [Mass/Vol] 15.7 g/dL Normal 13.0-17.0 The Count Includes [facility] Comment on above: Performed By: #### B COUNSELOR MARRIAGE AND FAMILY, CMP, CBC, MG, CK, HS TROP #### [place] [address] [place] Lymphocytes (Bld) [#/Vol] 3.6 10*3/uL Normal 1.00-4.8 The Count Includes [facility] Comment on above: Performed By: #### B COUNSELOR MARRIAGE AND FAMILY, CMP, CBC, MG, CK, HS TROP #### [address] Lymphocytes/100 WBC (Bld) 37.0 % Normal . The Count Includes [facility] Comment on above: Performed By: #### B COUNSELOR MARRIAGE AND FAMILY, CMP, CBC, MG, CK, HS TROP #### [address] MCH (RBC) [Entitic mass] 31.0 pg Normal 27.5-35.2 The Count Includes [facility] Comment on above: Performed By: #### B COUNSELOR MARRIAGE AND FAMILY, CMP, CBC, MG, CK, HS TROP #### [address] MCV (RBC) [Entitic vol] 90.3 fL Normal 83.5-101 The Count Includes [facility] Comment on above: Performed By: #### B COUNSELOR MARRIAGE AND FAMILY, CMP, CBC, MG, CK, HS TROP #### [address] Mean Corpuscular HGB Conc 34.4 g/dL Normal 32.5-35.6 The Count Includes [facility] Comment on above: Performed By: #### B COUNSELOR MARRIAGE AND FAMILY, CMP, CBC, MG, CK, HS TROP #### [address] Monocytes (Bld) [#/Vol] 0.9 10*3/uL High 0.0-0.8 The Count Includes [facility] Comment on above: Performed By: #### B COUNSELOR MARRIAGE AND FAMILY, CMP, CBC, MG, CK, HS TROP #### [address] Monocytes/100 WBC (Bld) 22.03 % High 0.00-20.00 The Count Includes [facility] Comment on above: Result Comment: For adults in ED, MDW > 20.0 may be associated with a higher risk of sepsis during the first 12 hrs of hospital admission Performed By: #### B COUNSELOR MARRIAGE AND FAMILY, CMP, CBC, MG, CK, HS TROP #### [address] Monocytes/100 WBC (Bld) 9.4 % Normal . The Count Includes [facility] Comment on above: Performed By: #### B COUNSELOR MARRIAGE AND FAMILY, CMP, CBC, MG, CK, HS TROP #### [address] Neutrophils (Bld) [#/Vol] 5.1 10*3/uL Normal 1.8-7.7 The Count Includes [facility] Comment on above: Performed By: #### B COUNSELOR MARRIAGE AND FAMILY, CMP, CBC, MG, CK, HS TROP #### [address] Neutrophils/100 WBC (Bld) 52.1 % Normal . The Count Includes [facility] Comment on above: Performed By: #### B COUNSELOR MARRIAGE AND FAMILY, CMP, CBC, MG, CK, HS TROP #### [address] NRBC% 0.1 /100{WBC} Normal 0-0.5 The Count Includes [facility] Comment on above: Performed By: #### B COUNSELOR MARRIAGE AND FAMILY, CMP, CBC, MG, CK, HS TROP #### [address] Platelet mean volume (Bld) [Entitic vol] 8.0 fL Normal 6.6-10.1 The Count Includes [facility] Comment on above: Performed By: #### B COUNSELOR MARRIAGE AND FAMILY, CMP, CBC, MG, CK, HS TROP #### [address] Platelets (Bld) [#/Vol] 264 10*3/uL Normal 150-450 The Count Includes [facility] Comment on above: Performed By: #### B COUNSELOR MARRIAGE AND FAMILY, CMP, CBC, MG, CK, HS TROP #### [address] RBC (Bld) [#/Vol] 5.04 10*6/uL Normal 3.90-5.60 The Count Includes [facility] Comment on above: Performed By: #### B COUNSELOR MARRIAGE AND FAMILY, CMP, CBC, MG, CK, HS TROP #### [address] WBC (Bld) [#/Vol] 9.8 10*3/uL Normal 4.1-10.5 The Count Includes [facility] Comment on above: Performed By: #### B COUNSELOR MARRIAGE AND FAMILY, CMP, CBC, MG, CK, HS TROP #### [address] Comprehensive Metabolic Pane cole 05-15-2024 Albumin [Mass/Vol] 4.8 g/dL Normal 3.5-5.7 The Count Includes [facility] Comment on above: Performed By: #### B COUNSELOR MARRIAGE AND FAMILY, CMP, CBC, MG, CK, HS TROP #### [address] Albumin/Globulin [Mass ratio] 1.5 {ratio} Normal The Count Includes [facility] Comment on above: Performed By: #### B COUNSELOR MARRIAGE AND FAMILY, CMP, CBC, MG, CK, HS TROP #### [address] ALP [Catalytic activity/Vol] 83 U/L Normal 34-104 The Count Includes [facility] Comment on above: Performed By: #### B COUNSELOR MARRIAGE AND FAMILY, CMP, CBC, MG, CK, HS TROP #### [address] ALT [Catalytic activity/Vol] 39 U/L Normal 7-52 The Count Includes [facility] Comment on above: Performed By: #### B COUNSELOR MARRIAGE AND FAMILY, CMP, CBC, MG, CK, HS TROP #### [address] Anion gap [Moles/Vol] 20.0 mmol/L High 6.0-15.0 Th e Count Includes [facility] Comment on above: Performed By: #### B COUNSELOR MARRIAGE AND FAMILY, CMP, CBC, MG, CK, HS TROP #### [address] AST [Catalytic activity/Vol] 28 U/L Normal 13-39 The Count Includes [facility] Comment on above: Performed By: #### B COUNSELOR MARRIAGE AND FAMILY, CMP, CBC, MG, CK, HS TROP #### [address] Bilirubin [Mass/Vol] 0.5 mg/dL Normal 0.3-1.0 The Count Includes [facility] Comment on above: Performed By: #### B COUNSELOR MARRIAGE AND FAMILY, CMP, CBC, MG, CK, HS TROP #### [address] Calcium [Mass/Vol] 11.0 mg/dL High 8.6-10.3 The Count Includes [facility] Comment on above: Performed By: #### B COUNSELOR MARRIAGE AND FAMILY, CMP, CBC, MG, CK, HS TROP #### [address] Chloride [Moles/Vol] 102 mmol/L Normal 98-107 The Count Includes [facility] Comment on above: Performed By: #### B COUNSELOR MARRIAGE AND FAMILY, CMP, CBC, MG, CK, HS TROP #### [address] CO2 [Moles/Vol] 19.8 mmol/L Low 21.0-31.0 The Count Includes [facility] Comment on above: Performed By: #### B COUNSELOR MARRIAGE AND FAMILY, CMP, CBC, MG, CK, HS TROP #### [address] Creatinine [Mass/Vol] 0.93 mg/dL Normal 0.70-1.30 The Count Includes [facility] Comment on above: Performed By: #### B COUNSELOR MARRIAGE AND FAMILY, CMP, CBC, MG, CK, HS TROP #### [address] GFR/1.73 sq M.predicted MDRD (S/P/Bld) [Vol rate/Area] mL/min/{1.73_m2} Normal The Count Includes [facility] Comment on above: Performed By: #### B COUNSELOR MARRIAGE AND FAMILY, CMP, CBC, MG, CK, HS TROP #### [address] Globulin (S) [Mass/Vol] 3.2 g/dL Normal The Count Includes [facility] Comment on above: Performed By: #### B COUNSELOR MARRIAGE AND FAMILY, CMP, CBC, MG, CK, HS TROP #### [address] Glucose [Mass/Vol] 136 mg/dL High 70-100 The Count Includes [facility] Comment on above: Result Comment: [facility] Glucose Reference Range is dependent on time and content of last meal. Glucose of more than 200 mg/dL in a nonstressed, ambulatory subject supports the diagnosis of Diabetes Mellitus. ADA recommended reference range Performed By: #### B COUNSELOR MARRIAGE AND FAMILY, CMP, CBC, MG, CK, HS TROP #### [address] Potassium [Moles/Vol] 3.8 mmol/L Normal 3.5-5.1 The Count Includes [facility] Comment on above: Result Comment: Hemo lysis is present at a level that could interfere with the result. Contact lab if redraw is required Performed By: #### B COUNSELOR MARRIAGE AND FAMILY, CMP, CBC, MG, CK, HS TROP #### [address] Protein [Mass/Vol] 8.0 g/dL Normal 6.4-8.9 The Count Includes [facility] Comment on above: Performed By: #### B COUNSELOR MARRIAGE AND FAMILY, CMP, CBC, MG, CK, HS TROP #### [place] [address] [place] Sodium [Moles/Vol] 138 mmol/L Normal 136-145 The Count Includes [facility] Comment on above: Performed By: #### B COUNSELOR MARRIAGE AND FAMILY, CMP, CBC, MG, CK, HS TROP #### [address] Urea nitrogen [Mass/Vol] 10 mg/dL Normal 7-25 The Count Includes [facility] Comment on above: Performed By: #### B COUNSELOR MARRIAGE AND FAMILY, CMP, CBC, MG, CK, HS TROP #### [place] [address] [place] Creatine Kinaseon 05-15-2024 CK [Catalytic activity/Vol] 53 U/L Normal 30-223 The Count Includes [facility] Comment on above: Performed By: #### G LULS #### Point of Care testing , Creatine kinase [Enzymatic a ctivity/volume] in Serum or PlasmaOrdered By: Brian Blanchard on 05-15-2024 CK [Catalytic activity/Vol] Creatine kinase [Enzymatic activity/volume] in Serum or Plasma 30 [facility] Creatinine [Mass/volume] in Serum or PlasmaOrdered By: Brian Blanchard on 05-15-2024 Creatinine [Mass/Vol] Creatinine [Mass/v olume] in Serum or Plasma 0.70-1.30 [facility] ECG 12 lead ECGon 05-15-2024 ECG 12 lead ECG [facility] [address] [place] [id number] Electrocardiograph Report Signed Patient: Lyly Quinn MR#: [id number] : 1965 Acct:[id number] Age/Sex: 59 / M ADM Date: 05/15/24 Loc: ER Room: Type: [facility] ER Attending Dr: Ordering Provider: Brian Blanchard DO Date of Service: 05/15/24 ECG/ECG 12 lead ECG: Shortness of Breath/Dyspnea Copies to: Test Reason : Blood Pressure : 141/87 mmHG Vent. Rate : 109 BPM Atrial Rate : 109 BPM P-R Int : 140 ms QRS Dur : 104 ms QT Int : 366 ms P-R-T Axes : 43 86 62 degrees QTcB Int : 492 ms Sinus tachycardia Confirmed by Brian BLANCHARD DO ([id number]) on 05/15/2024 6:13:14 PM Referred By: Electronically Signed By: Brian BLANCHARD DO Transcribed By: MUS Signed By Brian Blanchard DO 0 05/15/24 1813 Normal The Count Includes [facility] Eosinophils Auto (Bld) [#/Vo l]Ordered By: Brian Blanchard on 05-15-2024 Eosinophils (Bld) [#/Vol] Automated eosinophil count 0.0-0.45 [facility] Eosinophils/100 WBC Auto (Bl d)Ordered By: Brian Blanchard on 05-15-2024 Eosinophils/100 WBC (Bld) Automated eosinophil % . [facility] Erythrocyte distribution wid th Auto (RBC) [Ratio]Ordered By: Brian Blanchard on 05-15-2024 Erythrocyte distribution width (RBC) [Ratio] Erythrocyte distribution width [Ratio] by Automated count 12.0-14.8 [facility] Globulin Calc (S) [Mass/Vol] Ordered By: Brian Blanchard on 05-15-2024 Globulin (S) [Mass/Vol] Serum globulin measurement by calculation (mass/volume) [facility] Glucose [Mass/volume] in Ser um or PlasmaOrdered By: Brian Blanchard on 05-15-2024 Glucose [Mass/Vol] Glucose [Mass/volume ] in Serum or Plasma High 70-100 [facility] Comment on above: ADA recommended refe rence rangeRandom Glucose Reference Range is dependent on time and content of last meal. Glucose of more than 200 mg/dL in a nonstressed, ambulatory subject supports the diagnosis of Diabetes Mellitus. Hematocrit Auto (Bld) [Volum e fraction]Ordered By: Brian Blanchard on 05-15-2024 Hematocrit (Bld) [Volume fraction] Hematocrit [Volume Fraction] of Blood by Automated count 38.8-50.0 [facility] Hemoglobin [Mass/volume] in BloodOrdered By: Brian Blanchard on 05-15-2024 Hemoglobin (Bld) [Mass/Vol] Hemoglobin [Mass/volume] in Blood 13.0-17.0 [facility] INR in Platelet poor plasma by Coagulation assayOrdered By: Brian Blanchard on 05-15-2024 INR Coag (PPP) [Relative time] INR in Platelet poor plasma by Coagulation assay [facility] Comment on above: INR Therapeutic Rang e A) Pre- and Peroperative OAT started two weeks before surgery. NOT HIP SURGERY: 1.5 - 2.5 HIP SURGERY: 2 - 3B) Primary and secondary prevention of venous THROMBOSIS: 2 - 3C) Active venous thrombosis, pulmonary embolismand prevention of recurrent venous thrombosis: 2 - 3D) Prevention of arterial thromboembolismincluding patients with mechanical heart valves: 3 - 4.5 Leukocytes [#/volume] correc jorge for nucleated erythrocytes in Blood by Automated counOrdered By: Brian Blanchard on 05-15-2024 WBC corrected for nucl RBC Auto (Bld) [#/Vol] Leukocytes [#/volume] corrected for nucleated erythrocytes in Blood by Automated coun 4.1-10.5 [facility] Lymphocytes Auto (Bld) [#/Vo l]Ordered By: Brian Blanchard on 05-15-2024 Lymphocytes (Bld) [#/Vol] Lymphocytes [#/volume] in Blood by Automated count 1.00-4.8 [facility] Lymphocytes/100 WBC Auto (Bl d)Ordered By: Brian Blanchard on 05-15-2024 Lymphocytes/100 WBC (Bld) Lymphocytes/100 leukocytes in Blood by Automated count . [facility] MCH Auto (RBC) [Entitic mass ]Ordered By: Brian Blanchard on 05-15-2024 MCH (RBC) [Entitic mass] MCH [Entitic mass] by Automated count 27.5-35.2 [facility] MCHC Auto (RBC) [Mass/Vol]Or dered By: Brian Blanchard on 05-15-2024 MCHC (RBC) [Mass/Vol] MCHC [Mass/volume] by Automated count 32.5-35.6 [facility] MCV Auto (RBC) [Entitic vol] Ordered By: Brian Blanchard on 05-15-2024 MCV (RBC) [Entitic vol] MCV [Entitic volume] by Automated count 83.5-101 [facility] Magnesiumon 05-15-2024 Magnesium [Mass/Vol] 1.5 mg/dL Low 1.9-2.7 The Count Includes [facility] Comment on above: Result Comment: PERF ORMED BY: [facility] [address] [place] [address] PATHOLOGIST INCIDENT RESPONSE COORDINATOR BRANDON AVITIA M.D. Performed By: #### G LULS #### Point of Care testing , Magnesium [Mass/volume] in S fina or PlasmaOrdered By: Brian Blanchard on 05-15-2024 Magnesium [Mass/Vol] Magnesium [Mass/vol ume] in Serum or Plasma Low 1.9-2.7 [facility] Monocyte distribution width [Entitic volume] in Blood by AutomatedOrdered By: Brian Blanchard on 05-15-2024 Monocyte distribution width Auto (Bld) [Entitic vol] Monocyte distribution width [Entitic volume] in Blood by Automated High 0.00-20.00 [facility] Comment on above: For adults in ED, MD W > 20.0 may be associated with a higher risk of sepsis during the first 12 hrs of hospital admission Monocytes Auto (Bld) [#/Vol] Ordered By: Brian Blanchard on 05-15-2024 Monocytes (Bld) [#/Vol] Automated blood monocyte count High 0.0-0.8 [facility] Monocytes/100 WBC Auto (Bld) Ordered By: Brian Blanchard on 05-15-2024 Monocytes/100 WBC (Bld) Automated monocyte % . [facility] Natriuretic peptide B [Mass/ Vol]Ordered By: Brian Blanchard on 05-15-2024 Natriuretic peptide B (Bld) [Mass/Vol] BNP ser/plas 5-100 [facility] Neutrophils Auto (Bld) [#/Vo l]Ordered By: Brian Blanchard on 05-15-2024 Neutrophils (Bld) [#/Vol] Neutrophils [#/volume] in Blood by Automated count 1.8-7.7 [facility] Neutrophils/100 WBC Auto (Bl d)Ordered By: Brian Blanchard on 05-15-2024 Neutrophils/100 WBC (Bld) Automated neutrophil % . [facility] No Panel InformationOrdered By: Brian Blanchard on 05-15-2024 Blood Gas Critical Value See comment [facility] Comment on above: Critical Value vasquez d on: 05/15/2024 at 13:39 Blood Gas Sample Site Venous Fir [facility] FiO2 21 % [facility] Venous Blood Base Excess 0.3 mmol/L -3.0-3.0 [facility] Venous Blood Oxygen Content 1.8 mmol/L Low 6.6-9.7 [facility] Venous Blood Oxygen Saturation 19.6 % Critically low 73.0-76.0 [facility] Venous Blood Partial Pressure CO2 29.8 mm[Hg] Low 38.0-50.0 [facility] Venous Blood Partial Pressure O2 13.5 mm[Hg] Critically low 35.0-45.0 [facility] Venous Blood pH 7.50 High 7.32-7.43 [facility] Estimated GFR (CKD-EPI) > 60.0 mL/Min [facility] Creatinine Clearance (Chem N/A [facility] Nucleated erythrocytes [Pres ence] in Blood by Automated countOrdered By: Brian Blanchard on 05-15-2024 Nucleated RBC Auto Ql (Bld) Nucleated erythrocytes [Presence] in Blood by Automated count 0-0.5 [facility] Partial Thromboplastin Timeo n 05-15-2024 aPTT Coag (Bld) [Time] 35.8 s Normal 25.1-36.5 Th e Count Includes [facility] Comment on above: Result Comment: A he matocrit value greater than 55% may lead to inaccurate results in coagulation testing. Patients having hematocrit values >55% require a special collection tube for coagulation studies. Please contact the laboratory at [phone] for redraw instructions. PERFORMED BY: [place] [address] PATHOLOGIST INCIDENT RESPONSE COORDINATOR BRANDON AVITIA M.D. Performed By: #### P TT, PT #### [address] Platelet mean volume Auto (B ld) [Entitic vol]Ordered By: Brian Blanchard on 05-15-2024 Platelet mean volume (Bld) [Entitic vol] Platelet mean volume [Entitic volume] in Blood by Automated count 6.6-10.1 [facility] Platelets Auto (Bld) [#/Vol] Ordered By: Brian Blanchard on 05-15-2024 Platelets (Bld) [#/Vol] Platelets [#/volume] in Blood by Automated count 150-450 [facility] Potassium [Moles/volume] in Serum or PlasmaOrdered By: Brian Blanchard on 05-15-2024 Potassium [Moles/Vol] Potassium [Moles/v olume] in Serum or Plasma 3.5-5.1 [facility] Comment on above: Hemolysis is present at a level that could interfere with the result.Contact lab if redraw is required Protein [Mass/volume] in Ser um or PlasmaOrdered By: Brian Blanchard on 05-15-2024 Protein [Mass/Vol] Protein [Mass/volume ] in Serum or Plasma 6.4-8.9 [facility] Prothrombin Time INRon 05-15 INR Coag (PPP) [Relative time] 1.6 {INR} Normal The Count Includes [facility] Comment on above: Result Comment: [...] valves: 3 - 4.5 Performed By: #### P TT, PT #### [facility] [address] [place] [id number] [facility] PT Coag (PPP) [Time] 18.5 s High 9.0-12.9 The Count Includes [facility] Comment on above: Result Comment: A he matocrit value greater than 55% may lead to inaccurate results in coagulation testing. Patients having hematocrit values >55% require a special collection tube for coagulation studies. Please contact the laboratory at [phone] for redraw instructions. Performed By: #### P TT, PT #### [facility] [address] [place] [address] [facility] Prothrombin time (PT)Ordered By: Brian Blanchard on 05-15-2024 PT Coag (PPP) [Time] Prothrombin time (PT) High 9.0- 12.9 [facility] Comment on above: A hematocrit value g reater than 55% may lead to inaccurate results in coagulation testing. Patients having hematocrit values >55% require a special collection tube for coagulation studies. Please contact the laboratory at [phone] for redraw instructions. RBC Auto (Bld) [#/Vol]Ordere d By: Brian Blanchard on 05-15-2024 RBC (Bld) [#/Vol] Erythrocytes [#/volu me] in Blood by Automated count 3.90-5.60 [facility] Serum or plasma albumin/glob ulin mass ratioOrdered By: Brian Blanchard on 05-15-2024 Albumin/Globulin [Mass ratio] Serum or plasma albumin/globulin mass ratio [facility] Serum or plasma anion gap de terminationOrdered By: Brian Blanchard on 05-15-2024 Anion gap [Moles/Vol] Serum or plasma an ion gap determination High 6.0-15.0 [facility] Sodium [Moles/volume] in Ser um or PlasmaOrdered By: Brian Blanchard on 05-15-2024 Sodium [Moles/Vol] Sodium [Moles/volume ] in Serum or Plasma 136-145 [facility] Troponin I High Sensitivityo n 05-15-2024 Troponin I High Sensitivity 4 Normal 0-20 The Count Includes [facility] Comment on above: Result Comment: The Troponin units of report have been changed to meet the Chest Pain Accreditation requirement, element EC5.M1l2. Troponin units are changed from pg/ml to ng/L. Also, the decimal is removed and results are in whole numbers. PERFORMED BY: [address] [address] PATHOLOGIST INCIDENT RESPONSE COORDINATOR BRANDON AVITIA M.D. Performed By: #### G LULS #### Point of Care testing , Troponin I High Sensitivity 4 Normal 0-20 The Count Includes [facility] Comment on above: Result Comment: The Troponin units of report have been changed to meet the Chest Pain Accreditation requirement, element EC5.M1l2. Troponin units are changed from pg/ml to ng/L. Also, the decimal is removed and results are in whole numbers. PERFORMED BY: [facility] [address] [place] [address] PATHOLOGIST INCIDENT RESPONSE COORDINATOR BRANDON AVITIA M.D. Performed By: #### G LULS #### Point of Care testing , Troponin I.cardiac [Mass/vol ume] in Serum or Plasma by Detection limit <= 0.01 ng/Ordered By: Brian Blanchard on 05-15-2024 Troponin I.cardiac DL <= 0.01 ng/mL [Mass/Vol] Troponin I.cardiac [Mass/volume] in Serum or Plasma by Detection limit <= 0.01 ng/ 0-20 [facility] Comment on above: The Troponin units o f report have been changed to meet the Chest Pain Accreditation requirement, element EC5.M1l2. Troponin units are changed from pg/ml to ng/L. Also, the decimal is removed and results are in whole numbers. Urea nitrogen [Mass/volume] in Serum or PlasmaOrdered By: Brian Blanchard on 05-15-2024 Urea nitrogen [Mass/Vol] Urea nitrogen [Mass/volume] in Serum or Plasma 7- [facility] Venous Blood GasOrdered By: Brian Blanchard on 05-15-2024 CO2 [Moles/Vol] 23.4 mmol/L Low 24.0-29.[address] [facility] Comment on above: Performed By: #### V BG #### Point of Care testing , HCO3 (Bld) [Moles/Vol] 22.5 mmol/L Low 23.0-29.0 [facility] Comment on above: Performed By: #### V BG #### Point of Care testing , Venous Blood Gason Respiratory Critical Normal The Count Includes [facility] Comment on above: Result Comment: Crit ical Value called on: 05/15/2024 at 13:39 PERFORMED BY: [facility] [address] [place] [address] PATHOLOGIST INCIDENT RESPONSE COORDINATOR BRANDON AVITIA M.D. Performed By: #### V BG #### Point of Care testing , VBG Base Excess 0.3 mmol/L Normal -3.0-3.0 The Count Includes [facility] Comment on above: Performed By: #### V BG #### Point of Care testing , VBG Draw Site Venous Normal The Count Includes [facility] Comment on above: Performed By: #### V BG #### Point of Care testing , VBG Frac Inspired O2 21 % Normal The Count Includes [facility] Comment on above: Performed By: #### V BG #### Point of Care testing , VBG O2 Content 1.8 mmol/L Low 6.6-9.7 The Count Includes [facility] Comment on above: Performed By: #### V BG #### Point of Care testing , VBG Oxygen Saturation 19.6 % Off scale low 73.0-76.0 The Count Includes [facility] Comment on above: Performed By: #### V BG #### Point of Care testing , VBG PCO2 29.8 mm[Hg] Low 38.0-50.0 The Count Includes [facility] Comment on above: Performed By: #### V BG #### Point of Care testing , VBG PH Venous PH 7.50 High 7.32-7.43 The Count Includes [facility] Comment on above: Performed By: #### V BG #### Point of Care testing , VBG PO2 13.5 mm[Hg] Off scale low 35.0-45.0 The Count Includes [facility] Comment on above: Performed By: #### V BG #### Point of Care testing , WBC Auto (Bld) [#/Vol]Ordere d By: Brian Blanchard on 05-15-2024 WBC (Bld) [#/Vol] Leukocytes [#/volume ] in Blood by Automated count 4.1-10.5 [facility] X-ray reportOrdered By: David Dong on 05-15-2024 Study report [facility] [address] [place] [id number] XRay Report Signed Patient: Lyly Quinn MR#: [id number] : 1965 Acct:[id number] Age/Sex: 59 / M ADM Date: 5 Loc: ER Room: Type: [facility] ER Attending Dr: Copies to: Brian Blanchard DO~ Ordering Provider: Brian Blanchard DO Date of Service: 05/15/24 XR/XR chest 2V*: Shortness of Breath/Dyspnea Chest 2 views CLINICAL HISTORY: Shortness of breath chest pain for one week. Headache. COMPARISON: Chest 04/10/2024 FINDINGS: Heart normal in size. Lungs are clear. No free air. XR/XR chest 2V* IMPRESSION: NO ACUTE CARDIOPULMONARY ABNORMALITY. Impression dictated by: Elvin Dong Jr., D.OMaranda05/15/2024 1:50 PM Dictation Location: [place] [address] Transcribed By: [facility] 05/15/24 1350 Dictated By: Elvin Dong Jr, DO 05/15/24 1350 Signed By: 05/15/24 1350 [facility] XR chest 2V*on 05-15-2024 XR chest 2V* [facility] [address] [place] [id number] XRay Report Signed Patient: Lyly Quinn MR#: [id number] : 1965 Acct:[id number] Age/Sex: 59 / M ADM Date: 05/15/24 Loc: ER Room: Type: [facility] ER Attending Dr: Copies to: Brian Blanchard DO Ordering Provider: Brian Blanchard DO Date of Service: 05/15/24 XR/XR chest 2V*: Shortness of Breath/Dyspnea Chest 2 views CLINICAL HISTORY: Shortness of breath chest pain for one week. Headache. COMPARISON: Chest 04/10/2024 FINDINGS: Heart normal in size. Lungs are clear. No free air. XR/XR chest 2V* IMPRESSION: NO ACUTE CARDIOPULMONARY ABNORMALITY. Impression dictated by: Elvin Dong Jr., D.OMaranda05/15/2024 1:50 PM Dictation Location: [place] [address] Transcribed By: [facility] 05/15/24 1350 Dictated By: Elvin Dong Jr, DO 05/15/24 1350 Signed By: 05/15/24 1350 Normal The Count Includes [facility] aPTT in Platelet poor plasma by Coagulation assayOrdered By: Brian Blanchard on 05-15-2024 aPTT Coag (PPP) [Time] Activated partial thromboplastin time (aPTT) in platelet poor plasma by coagulation a 25.1-36.5 [facility] Comment on above: A hematocrit value g reater than 55% may lead to inaccurate results in coagulation testing. Patients having hematocrit values >55% require a special collection tube for coagulation studies. Please contact the laboratory at [phone] for redraw instructions. Coding Summaryon 05-12-2024 Coding Summary HTMLBase 64 UzqflqreMLu9qJz+PGhlYWQ+PE 1VQDVwY91kkBCteR8yU9CSHZjS JofsCKZFPOcSIqJiboFqEB0gvN NjZXJu IC8+MS0cYFTcXmanaHBtp2N5gA R0A36ete6nHQlcjJO5HWJeFnNw rykim8basNz3TIbuGcwaGxZk JZAnnL74DIB6yZ28Zu95vIVjkZ Ayi3mwcGm5YjZoVOTlNYT2gSyu IVpya8UsHHDpN28guRApb2S9 CSPopAqgaDHjAaXkuJS3tL3xGH skpemjz0mxvdfrRql8yh14iPFn e3J1dDX3C4SoowG2ICKjhARq IagjcJLHhA2rclqxd0zjzyglOa GhLPLtZOi6UEt0PJWrlUndBgEx VP26HMQ5FLRndwQaA1EzUXDc oSjkTuT6v6V1Vg8SC5FUMknjS8 VNTUFSWTwvdGQ+AK95ut91X5Un FaieSeb6GHEeWOR6yCA1kQ2b OTFhCNnux0Y3oLF0I5MhvyBanp 3ui2biMXZsJYicQ85apEAoo4Y2 SMYaqZS3WKDeuZaoTdOtpZ51 Oyc+TYVksHscx5XjDgpvp8dhu0 nfoYb4TpdcBUTdlwSvpAenFCO6 c2IaKu9cURYijOE6bAA1xC7x LwDnJoR3QJatD233DgHlkQHwPi cwF87vJ6NvhMF+PEFuMof7ZQUp xMuuNT8iS3CfDBYezhmmnCFs xDoeDJ9wWVVnpdzhKDLujR4iTX NgE4x0WvMoQcB2LWjvD0OzWCUr gdpjQm81uC7jEgEeWzX6VAze W2NtevN8OSYamIJxBYjdRPF0P3 3sd8A4NZJaCFDoOWW2oYM4jM7v bGlnbjogbGVmdDsgdmVydGlj SFsaNSufF823CAHfgWlaKwHcIC luZyBEYXRlOiAgMDEvMjQvMjAy NTwvdGQ+TKCmWHS5tNpwTZLg lFWxEItmGx0vkIruyPyiRR0mGS XtbzbzBHElmH9tTRDuzSGkkHly VP8mWHNvaciwg492IiFbCOA4 ZNQidIWiI2LsfU5fFjItYTNcWB KlY5EcaIEoJJdkH857CBpnPdZ5 DLAshpZjV9KnGOQfsPczDhX1 b9T6Zo7Uw2LxlvyfB8QgwGZsOl VlEoxbNPl3S4TcDisfsKW+PC90 ZYIlUW64BVm9VLF6bLekQOig MGPgN4LzvY1oBoOxIPPdRTHnDv c+PHRhYmxlIHdpZHRoPScxMDAl FrTorTecNS4sZh7kDKIbEDSg sMphrBDbFfGsv4nsZDBvUEjbYS 2rdZzpQ7OwgHQ5XKByq9i5Ks77 C81cE2AzrNF+OANugZJ3gAX6 dO0eVmHgFwI2ODgoV434BdCxnI XpSxnvv2cnp6xozGo9ItY5SXWj hwCqcZmdEAG1r7IzSr83A66f IHdpZHRoPSIxNSUiIHZhbGlnbj 9qgM6kQq7+OUXikAT1dGF8sI6w WtYjBaU9VCuzF226TnByfJHj Oshye6krr4bpdOk6WcDdNNIdlj ZqlZyiPWJ2c5HgVq27Z0RvkGsl e6WsXkx4ku08fRRek9R2jDE0 I5CbNMGmrrjqrRTvcEkzZY8eRA EtsoooCXLwwH2rNWNeR5n6AvIc MlO8FTekB3CcgrM5IVZueJPs WABldDAJxG2unvfdk1bfmwsrXo RmBDHqPFg2BOs6ZPTheJmrPmMe LZN2BqQ0EYQ2vRUvkR6pyOjc fsxpwL4lHrk+QXT1pQOnsQAKTD 1lOjwvdGQ+NCMxHKN8qZaaSAlo VLPodR6lJKZcP1d4EuKeErV3 AZkoJ0SpopK5EEMroFKrJKQivF TCuQ0eeqyrg4xshhbgWbSaTFXn TUs6IJe9YNUpiFxkMwBzDYP0 QyQ3FCI8kFXjiV1kaHkeqgznpZ 9wOyc+MezklAruWVG5XIq8J5Xt Cza8NVSebSleNL7tcJGkSRen Vp8khRscgZvkHY6aBZTdlyxgu5 66EsPxz9xoJMPhwTQqKKclWZW9 B06ai4U8TCUmKLHgGNG1pPG5 tK3toKnnvvhxaKGhkInkfgAnzX gnKQciZEsuL375WOCnbEjtMlAv KIx2A3EgIsf0IWYqzXkoJZ2g sLGlAGioMt2rtStzzSpnOU7qQW Lfzhuyg520AhNgb3nfAAUqaAYc JXrgRSR8G84fy4Z2YRQkXREl XZI7sAB6yN1amGvfpeekvURavO zgxrSoqHzgLGsbLSarB383XJHm jEurQbUtmPq1W5AoOst3EVAf cArpGU9mxKXvEOqhKz0xdClziV bcVH6rXXCjjhdnn190VsDtc7vh LSDexVZvGGlaSQP6G02dl7D2 UGSrPBFcEVI8kFJ4vG1pcRexpk ogbGVmdDsgdmVydGljYWwtYWxp S427QZBfqEhtDdByeSgrkdLt OUyoACi4S6LaXgtmaER+PC90YW ZvNE43lQCoiQGsr4zoyMg3EcTx DYKuQER5xKejTInrt9BaMJDc L20aqMKse2W3SYRfgQxzdLLrFz VuzNI0uM2nEYbmvblmn4zwzczk Cwcnq0giwn82wD65O07tHSpo ESApNKArATPoYVFgeAwinf1loG 9wIi8+UQUrjCS7mCY2cE2dVUEj XfA0AShrY673KnTteFTbOybg v3veg0ptaQt2ScB7TGQcotMhvV ufALC5v8RoXu25U27rDKumOSMv AERjPWIjMZKxgHmjlx5gmB4h Ii8+EVXwrRE2hZR8eC8wMcGgYp S7XTsdQ485McWtiTIaEixzC04f Y7UxaNM+VFAxLba5QZQdwLlj IZ8sdLPzFSryEr9iLZN4GqVdWl CsUJyjF5WkAGDtinkqbxinkGV0 YLTqRWLiyG68Nd4goNfuOXEj dHNKkX6ozcicc4qmpinqLmNjSW ViTYx2PWj5BMMuzGnlUfRzCDU6 PfP6ZLD4eCJovF6xwPmrhsqy eQ9kJ9EtNDSqlpptEa51tW7iLv ApHkE1FKtiXuq+GbuNY9AoYKPH VX9sE6mILOsXNMmysBF+PHRk QPR6yNtsIQfnCOOwhH0wMGRyR4 f9AuVxIiK9LBunG7WnYSXxcuwz Pw69bE3jZcKrGrQ0LLwgS9Cr lwO4XMNykUNyKHkaPKA0J35mv1 F3SZMvZGVdMZO7cEB3iE9awBii bjogbGVmdDsgdmVydGljYWwt NHueC068ISYmvCxgLsNmDtU8Cc D7BrS7I4CgVqd2ECHtdClqKO5t gRZrGSblOt9nwMfehTwyED2v WOFcadugMTRazG6gUKAqiIPgtF nfTM4sFKAupwrgs330KhNyZMZ1 MAXihMNdC2DjyJ9iFuSiOVCx EITkV7NkoRCsNVwaJ793RTknVz H4CSQfqiOtM3TtNWUcfKtbUxA6 g5M5Gk30GHPMJCEojqhanJJ+ REItONW1aQbgXHpsOMJlcB6uSC IwE2y6TdZxNrG8FJmlH5MhREGd hgevFj14qS1fHdDrKzW8CVnk L0NjefN4WOEcgZTqTAdlBBQ0Z5 4mo7G8PJWkTXGvJLU3fDA8kP5r bGlnbjogbGVmdDsgdmVydGlj IBlsKPklZ453VNKexHmwSi7KWS P5U3DgUac3DMDozOqtNR6apNTi XBufHi5akFzucGunLE2gPJZo xvzwKNUtfO1oXPOqkTRukFpkEK 2jLOPifdpbe546CfMyMWV4KIUs kEDaR4PisE2lMtRkYVHpSPTk J9HrqQMzPGqtY863FUmpDrN7SY EtdbGzC4WvZTAkkMamJuK9t5T7 Op0BWLeheCF+VN22pm50T7Uh XxpaYpt8RIVgOCU8eLI6aC9uSB QrEDmue7M8kIE3D4MidqRzqu7a w8sfSJUaOTikI11mqGOlv5N9 UYJwcZC1STChuGunXaKyoT52Yn c+OVEqfIwhy6ErYotvs0dnb8uw xTe1EgKeESUcqdFltAryELL9 x8FzKn96F93fSZkiUAYwSYWnFQ TbGEHmcYqtps1ilL7iBg9+PGNv lBL9zZF6jL2sAdLiJqW7JNkv P246NaFtmXMuJkzlq6vdc9ztpX n1YjLtXQVghrUicNpeRII2h1Zz Vq87M3NscCgqh7PiZmy3mh64 gUDzo0B3rMP4H4StBBWvmtsvfC DhdBbaJO0mUCRbudzcHTGlyC2s BFUpY7k8YiJaCmG2JLokG8Xe czQ4BCRfkEFdMYJyaEIGrN9ors iqz7bfhrftVtLpUNAbAFo8KUb4 DGKkqCdoPtLaJYC8XjD0WMD4 xIRayR2kxYugjsnopO7tRor+UG v9t4bzcFReTC1uwAT3JW53GJ77 aUUpl5Y6yAK8Z7EpPLWeophf cjwzfGL5KYStQYUitW94Kk2pnA jlHs2sYMIgSOP3BQUcyYJuD9Zz bS4kNuWkIIYsMGMyI6MvtLWs RRttH436VApuWqX9NXAnspQxN6 KzYBGaiGzqOhC8t6N7Ul1DIK28 HP97MA67uKLvq4M4pJQ5J3Oo HSJffrfyzqnylPG1OSQdPSItsI 97St1jsWmnOc2sWAKlCLK1CVDe hDAtC2AcjJ6oYhPlQUIqESAd V0NgzPMeSLjeN780QHawNgD2QO XlgjPjY9HbQMEozJorCqG5s7O8 Fr2GBb22OH06QK82tFDdc7E9 oXI7H6KkNJDkxxvqgqidwFH5TX TkAHHeqM38Yf6cwKdiYr4pBQPa FZQ4NRJziPPyJ0VkeZ6uJnCx BHApQGDwV1ZkkDSkPGvcA582WL qfHlH6CZTituNjU1RkDGIkoMgx LkX8d6E7Sg7RUScpibn2C0Zp PjwvdHI+DS96XTIwXI51gKMpxN Dym6bhlAp1MrFgWEUgHLD5ySmx ICgcn9AjNKCjK18egJJhk0Q1 IGN (more content not included)... [facility] Consent Formson 05-12-2024 Consent Forms [id number]#1.00OTGTIFF [facility] BUN/Creat Ratioon 05-10-2024 eGFR Non AA >60 Invalid Interpretation Code [facility] Comment on above: Performed By: #### 1 [id number] ####[facility] (DEFAULT)[address] [place] [address] eGFR AA >60 Invalid Interpretation Code [facility] Comment on above: Performed By: #### 1 [id number] ####[facility] (DEFAULT)[address] [place] [address] Creatinine [Mass/Vol] 0.81 mg/dL Low 0.90-1.30 [facility] Comment on above: Performed By: #### 1 [id number] ####[facility] (DEFAULT)[address] [place] [address] Urea nitrogen [Mass/Vol] 10 mg/dL Normal 8-26 [facility] Comment on above: Performed By: #### 1 [id number] ####[facility] (DEFAULT)[address] [place] [address] Urea nitrogen/Creatinine [Mass ratio] 12.3 mg/mg Normal 4.6-16.2 [facility] Comment on above: Performed By: #### 1 [id number] ####[facility] (DEFAULT)[address] [place] [address] PE Chest w/ Contraston CT PE Chest w/ Contrast EXAMINATION: CT PE Chest w/ Contrast HISTORY: Chest pain, unspecified COMPARISON: 05/15/2021 TECHNIQUE: CT angiography of the pulmonary arteries following the administration of intravenous contrast. Coronal and sagittal MIP (maximum intensity projection) images were performed. Dose reduction techniques were achieved by using automated exposure control and/or adjustment of mA and/or kV according to patient size and/or use of iterative reconstruction technique. FINDINGS: Pulmonary arteries opacify normally without evidence of filling defects suggestive of pulmonary embolism. There is no evidence of thoracic aortic aneurysm or dissection. There is no cardiac enlargement. There is no pleural or pericardial fluid. There is no significant hilar or mediastinal adenopathy. There is no pulmonary nodule, confluent infiltrate, or mass. Limited images of the upper abdomen demonstrate fatty changes in the liver. There is no chest wall abnormality. There is no axillary adenopathy. There is a 4.4 mm right thyroid nodule. Thoracic inlet is otherwise unremarkable. There is no significant osseous abnormality. IMPRESSION: No evidence of pulmonary embolism. No acute finding. Final Dictated by: Milana Morocho MD Dictated DT/TM: 05/10/24 4:29 Signed (Electronic Signature): Milana Morocho MD 05/10/24 4:36 pm Technologist: LT PATRICK [facility] Rad - Other Radiology Report on 05-10-2024 Rad - Other Radiology Report [id number]#1.00OTGTIF F Normal [facility] Reminder Messageson 05-10-19 Reminder Messages - From: Kimi Weiss DO To: [employer] ([facility]); Sent: 05/10/2024 16:45:39 EST Show up: 05/10/2024 16:46:00 EST Subject: Results Follow Up Due Date/Time: 05/11/2024 16:45:00 EST normal I will speak to Lyly Results: Date Result Type Result Name 05/10/2024 16:[address] PE Chest w/ Contrast [facility] Reminder Messages - From: Kimi Weiss DO To: [employer] ([facility]); Sent: 05/10/2024 16:17:16 EST Show up: 05/10/2024 16:18:00 EST Subject: Results Follow Up Due Date/Time: 05/11/2024 16:17:00 EST ok, await CT chest result. Results: Date Result Name Ind Value Ref Range 05/10/2024 15:36 BUN 10 mg/dL (8 - 26) 05/10/2024 15:36 Creatinine Level (L) 0.81 mg/dL (0.90 - 1.30) 05/10/2024 15:36 BUN/Creat Ratio 12.3 (4.6 - 16.2) 05/10/2024 15:36 eGFR AA >60 mL/min/1.73m2 05/10/2024 15:36 eGFR Non AA >60 mL/min/1.73m2 [facility] Stress Teston 04-18-2024 Stress Test [id number][facility]-17-2024 Outside Records [id number]#[facility] Lab Re porton 04-17-2024 Rad - Catheterization Lab Report [id number][facility] Basophils Auto (Bld) [#/Vol] Ordered By: Jacinto Livingston on 04-13-2024 Basophils (Bld) [#/Vol] Automated basophil count 0.0-0.2 [facility] Basophils/100 WBC Auto (Bld) Ordered By: Jacinto Livingston on 04-13-2024 Basophils/100 WBC (Bld) Automated basophil % . [facility] Blood Urea Nitrogenon 2023 Urea nitrogen [Mass/Vol] 13 mg/dL Normal 7-25 The Count Includes [facility] Comment on above: Performed By: #### G LULS #### Point of Care testing , Carbon dioxide, total [Moles /volume] in Serum or PlasmaOrdered By: Jacinto Livingston on 04-13-2024 CO2 [Moles/Vol] Carbon dioxide, tota l [Moles/volume] in Serum or Plasma 21.0-31.0 [facility] Chloride [Moles/volume] in S fina or PlasmaOrdered By: Jacinto Livingston on 04-13-2024 Chloride [Moles/Vol] Chloride [Moles/vol ume] in Serum or Plasma 98-107 [facility] Coagulation Profileon 2023 aPTT Coag (Bld) [Time] 27.1 s Normal 25.1-36.5 Th e Count Includes [facility] Comment on above: Result Comment: A he matocrit value greater than 55% may lead to inaccurate results in coagulation testing. Patients having hematocrit values >55% require a special collection tube for coagulation studies. Please contact the laboratory at [phone] for redraw instructions. PERFORMED BY: [place] [address] [place] [address] PATHOLOGIST INCIDENT RESPONSE COORDINATOR BRANDON AVITIA M.D. Performed By: #### G LULS #### Point of Care testing , INR Coag (PPP) [Relative time] 1.0 {INR} Normal The Count Includes [facility] Comment on above: Result Comment: [...] valves: 3 - 4.5 Performed By: #### G LULS #### Point of Care testing , PT Coag (PPP) [Time] 11.2 s Normal 9.0-12.9 The Count Includes [facility] Comment on above: Result Comment: A he matocrit value greater than 55% may lead to inaccurate results in coagulation testing. Patients having hematocrit values >55% require a special collection tube for coagulation studies. Please contact the laboratory at [phone] for redraw instructions. Performed By: #### G LULS #### Point of Care testing , Complete Blood Count Auto Di ffon 04-13-2024 Basophils (Bld) [#/Vol] 0.0 10*3/uL Normal 0.0-0.2 The Count Includes [facility] Comment on above: Result Comment: PERF ORMED BY: [facility] [address] [place] [address] PATHOLOGIST INCIDENT RESPONSE COORDINATOR BRANDON AVITIA M.D. Performed By: #### G LULS #### Point of Care testing , Basophils/100 WBC (Bld) 0.6 % Normal . The Count Includes [facility] Comment on above: Performed By: #### G LULS #### Point of Care testing , Eosinophils (Bld) [#/Vol] 0.1 10*3/uL Normal 0.0-0.45 The Count Includes [facility] Comment on above: Performed By: #### G LULS #### Point of Care testing , Eosinophils/100 WBC (Bld) 1.9 % Normal . The Count Includes [facility] Comment on above: Performed By: #### G LULS #### Point of Care testing , Erythrocyte distribution width (RBC) [Ratio] 13.0 % Normal 12.0-14.8 The Count Includes [facility] Comment on above: Performed By: #### G LULS #### Point of Care testing , Hematocrit (Bld) [Volume fraction] 40.6 % Normal 38.8-50.0 The Count Includes [facility] Comment on above: Performed By: #### G LULS #### Point of Care testing , Hemoglobin (Bld) [Mass/Vol] 13.8 g/dL Normal 13.0-17.0 The Count Includes [facility] Comment on above: Performed By: #### G LULS #### Point of Care testing , Lymphocytes (Bld) [#/Vol] 2.5 10*3/uL Normal 1.00-4.8 The Count Includes [facility] Comment on above: Performed By: #### G LULS #### Point of Care testing , Lymphocytes/100 WBC (Bld) 37.3 % Normal . The Count Includes [facility] Comment on above: Performed By: #### G LULS #### Point of Care testing , MCH (RBC) [Entitic mass] 30.9 pg Normal 27.5-35.2 The Count Includes [facility] Comment on above: Performed By: #### G LULS #### Point of Care testing , MCV (RBC) [Entitic vol] 90.6 fL Normal 83.5-101 The Count Includes [facility] Comment on above: Performed By: #### G LULS #### Point of Care testing , Mean Corpuscular HGB Conc 34.1 g/dL Normal 32.5-35.6 The Count Includes [facility] Comment on above: Performed By: #### G LULS #### Point of Care testing , Monocytes (Bld) [#/Vol] 0.5 10*3/uL Normal 0.0-0.8 The Count Includes [facility] Comment on above: Performed By: #### G LULS #### Point of Care testing , Monocytes/100 WBC (Bld) 8.1 % Normal . The Count Includes [facility] Comment on above: Performed By: #### G LULS #### Point of Care testing , Neutrophils (Bld) [#/Vol] 3.5 10*3/uL Normal 1.8-7.7 The Count Includes [facility] Comment on above: Performed By: #### G LULS #### Point of Care testing , Neutrophils/100 WBC (Bld) 52.1 % Normal . The Count Includes [facility] Comment on above: Performed By: #### G LULS #### Point of Care testing , NRBC% 0.3 /100{WBC} Normal 0-0.5 The Count Includes [facility] Comment on above: Performed By: #### G LULS #### Point of Care testing , Platelet mean volume (Bld) [Entitic vol] 7.6 fL Normal 6.6-10.1 The Count Includes [facility] Comment on above: Performed By: #### G LULS #### Point of Care testing , Platelets (Bld) [#/Vol] 229 10*3/uL Normal 150-450 The Count Includes [facility] Comment on above: Performed By: #### G LULS #### Point of Care testing , RBC (Bld) [#/Vol] 4.48 10*6/uL Normal 3.90-5.60 The Count Includes [facility] Comment on above: Performed By: #### G LULS #### Point of Care testing , WBC (Bld) [#/Vol] 6.7 10*3/uL Normal 4.1-10.5 The Count Includes [facility] Comment on above: Performed By: #### G LULS #### Point of Care testing , Consultation/Specialist Note on 04-13-2024 Consultation/Specialis t Note [id number]#[id number] Normal [facility] Creatinineon 04-13-2024 Creatinine [Mass/Vol] 0.80 mg/dL Normal 0.70-1.30 The Count Includes [facility] Comment on above: Performed By: #### G LULS #### Point of Care testing , Creatinine Clr Calc Pharmacy 134.56 Normal The Count Includes [facility] Comment on above: Result Comment: PERF ORMED BY: [facility] [address] [place] [address] PATHOLOGIST INCIDENT RESPONSE COORDINATOR BRANDON AVITIA M.D. Performed By: #### G LULS #### Point of Care testing , GFR/1.73 sq M.predicted MDRD (S/P/Bld) [Vol rate/Area] mL/min/{1.73_m2} Normal The Count Includes [facility] Comment on above: Performed By: #### G LULS #### Point of Care testing , Creatinine [Mass/volume] in Serum or PlasmaOrdered By: Jacinto Livingston on 04-13-2024 Creatinine [Mass/Vol] Creatinine [Mass/v olume] in Serum or Plasma 0.70-1.30 [facility] Electrolyteson 04-13-2024 Anion gap [Moles/Vol] 11.2 mmol/L Normal 6.0-15.0 Th e Count Includes [facility] Comment on above: Performed By: #### G LULS #### Point of Care testing , Chloride [Moles/Vol] 104 mmol/L Normal 98-107 The Count Includes [facility] Comment on above: Performed By: #### G LULS #### Point of Care testing , CO2 [Moles/Vol] 25.2 mmol/L Normal 21.0-31.0 The Count Includes [facility] Comment on above: Performed By: #### G LULS #### Point of Care testing , Potassium [Moles/Vol] 4.4 mmol/L Normal 3.5-5.1 The Count Includes [facility] Comment on above: Result Comment: Hemo lysis is present at a level that could interfere with the result. Contact lab if redraw is required Performed By: #### G LULS #### Point of Care testing , Sodium [Moles/Vol] 136 mmol/L Normal 136-145 The Count Includes [facility] Comment on above: Performed By: #### G LULS #### Point of Care testing , Eosinophils Auto (Bld) [#/Vo l]Ordered By: Jacinto Livingston on 04-13-2024 Eosinophils (Bld) [#/Vol] Automated eosinophil count 0.0-0.45 [facility] Eosinophils/100 WBC Auto (Bl d)Ordered By: Jacinto Livingston on 04-13-2024 Eosinophils/100 WBC (Bld) Automated eosinophil % . [facility] Erythrocyte distribution wid th Auto (RBC) [Ratio]Ordered By: Jacinto Livingston on 04-13-2024 Erythrocyte distribution width (RBC) [Ratio] Erythrocyte distribution width [Ratio] by Automated count 12.0-14.8 [facility] Glucose Glucometer (BldC) [M ass/Vol]Ordered By: Leslie Sanchez on 04-13-2024 Glucose [Mass/Vol] Capillary blood gluc ose measurement by glucometer (mass/volume) [facility] Comment on above: Random Glucose Refer ence Range is dependent on time and content of last meal. Glucose of more than 200 mg/dL in a nonstressed, ambulatory subject supports the diagnosis of Diabetes Mellitus. Glucose Poct Glucometerson 1 06-14-2023 Glucose [Mass/Vol] 191 mg/dL Normal The Count Includes [facility] Comment on above: Result Comment: [place] om Glucose Reference Range is dependent on time and content of last meal. Glucose of more than 200 mg/dL in a nonstressed, ambulatory subject supports the diagnosis of Diabetes Mellitus. PERFORMED BY: [facility] [address] [place] [address] PATHOLOGIST INCIDENT RESPONSE COORDINATOR BRANDON AVITIA M.D. Performed By: #### G LULS #### Point of Care testing , Hematocrit Auto (Bld) [Volum e fraction]Ordered By: Jacinto Livingston on 04-13-2024 Hematocrit (Bld) [Volume fraction] Hematocrit [Volume Fraction] of Blood by Automated count 38.8-50.0 [facility] Hemoglobin [Mass/volume] in BloodOrdered By: Jacinto Livingston on 04-13-2024 Hemoglobin (Bld) [Mass/Vol] Hemoglobin [Mass/volume] in Blood 13.0-17.0 [facility] INR in Platelet poor plasma by Coagulation assayOrdered By: Jacinto Livingston on 04-13-2024 INR Coag (PPP) [Relative time] INR in Platelet poor plasma by Coagulation assay [facility] Comment on above: INR Therapeutic Rang e A) Pre- and Peroperative OAT started two weeks before surgery. NOT HIP SURGERY: 1.5 - 2.5 HIP SURGERY: 2 - 3B) Primary and secondary prevention of venous THROMBOSIS: 2 - 3C) Active venous thrombosis, pulmonary embolismand prevention of recurrent venous thrombosis: 2 - 3D) Prevention of arterial thromboembolismincluding patients with mechanical heart valves: 3 - 4.5 Leukocytes [#/volume] correc jorge for nucleated erythrocytes in Blood by Automated counOrdered By: Jacinto Livingston on 04-13-2024 WBC corrected for nucl RBC Auto (Bld) [#/Vol] Leukocytes [#/volume] corrected for nucleated erythrocytes in Blood by Automated coun 4.1-10.5 [facility] Lymphocytes Auto (Bld) [#/Vo l]Ordered By: Jacinto Livingston on 04-13-2024 Lymphocytes (Bld) [#/Vol] Lymphocytes [#/volume] in Blood by Automated count 1.00-4.8 [facility] Lymphocytes/100 WBC Auto (Bl d)Ordered By: Jacinto Livingston on 04-13-2024 Lymphocytes/100 WBC (Bld) Lymphocytes/100 leukocytes in Blood by Automated count . [facility] MCH Auto (RBC) [Entitic mass ]Ordered By: Jacinto Livingston on 04-13-2024 MCH (RBC) [Entitic mass] MCH [Entitic mass] by Automated count 27.5-35.2 [facility] MCHC Auto (RBC) [Mass/Vol]Or dered By: Jacinto Livingston on 04-13-2024 MCHC (RBC) [Mass/Vol] MCHC [Mass/volume] by Automated count 32.5-35.6 [facility] MCV Auto (RBC) [Entitic vol] Ordered By: Jacinto Livingston on 04-13-2024 MCV (RBC) [Entitic vol] MCV [Entitic volume] by Automated count 83.5-101 [facility] Monocytes Auto (Bld) [#/Vol] Ordered By: Jacinto Livingston on 04-13-2024 Monocytes (Bld) [#/Vol] Automated blood monocyte count 0.0-0.8 [facility] Monocytes/100 WBC Auto (Bld) Ordered By: Jacinto Livingston on 04-13-2024 Monocytes/100 WBC (Bld) Automated monocyte % . [facility] Neutrophils Auto (Bld) [#/Vo l]Ordered By: Jacinto Livingston on 04-13-2024 Neutrophils (Bld) [#/Vol] Neutrophils [#/volume] in Blood by Automated count 1.8-7.7 [facility] Neutrophils/100 WBC Auto (Bl d)Ordered By: Jacinto Livingston on 04-13-2024 Neutrophils/100 WBC (Bld) Automated neutrophil % . [facility] No Panel InformationOrdered By: Jacinto Livingston on 04-13-2024 Estimated GFR (CKD-EPI) > 60.0 mL/Min [facility] Creatinine Clearance (Chem 134.56 [facility] Nucleated erythrocytes [Pres ence] in Blood by Automated countOrdered By: Jacinto Livingston on 04-13-2024 Nucleated RBC Auto Ql (Bld) Nucleated erythrocytes [Presence] in Blood by Automated count 0-0.5 [facility] Platelet mean volume Auto (B ld) [Entitic vol]Ordered By: Jacinto Livingston on 04-13-2024 Platelet mean volume (Bld) [Entitic vol] Platelet mean volume [Entitic volume] in Blood by Automated count 6.6-10.1 [facility] Platelets Auto (Bld) [#/Vol] Ordered By: Jacinto Livingston on 04-13-2024 Platelets (Bld) [#/Vol] Platelets [#/volume] in Blood by Automated count 150-450 [facility] Potassium [Moles/volume] in Serum or PlasmaOrdered By: Jacinto Livingston on 04-13-2024 Potassium [Moles/Vol] Potassium [Moles/v olume] in Serum or Plasma 3.5-5.1 [facility] Comment on above: Hemolysis is present at a level that could interfere with the result.Contact lab if redraw is required Prothrombin time (PT)Ordered By: Jacinto Livingston on 04-13-2024 PT Coag (PPP) [Time] Prothrombin time (PT) 9.0- 12.9 [facility] Comment on above: A hematocrit value g reater than 55% may lead to inaccurate results in coagulation testing. Patients having hematocrit values >55% require a special collection tube for coagulation studies. Please contact the laboratory at [phone] for redraw instructions. RBC Auto (Bld) [#/Vol]Ordere d By: Jacinto Livingston on 04-13-2024 RBC (Bld) [#/Vol] Erythrocytes [#/volu me] in Blood by Automated count 3.90-5.60 [facility] Serum or plasma anion gap de terminationOrdered By: Jacinto Livingston on 04-13-2024 Anion gap [Moles/Vol] Serum or plasma an ion gap determination 6.0-15.0 [facility] Sodium [Moles/volume] in Ser um or PlasmaOrdered By: Jacinto Livingston on 04-13-2024 Sodium [Moles/Vol] Sodium [Moles/volume ] in Serum or Plasma 136-145 [facility] Urea nitrogen [Mass/volume] in Serum or PlasmaOrdered By: Jacinto Livingston on 04-13-2024 Urea nitrogen [Mass/Vol] Urea nitrogen [Mass/volume] in Serum or Plasma 7-25 [facility] WBC Auto (Bld) [#/Vol]Ordere d By: Jacinto Livingston on 04-13-2024 WBC (Bld) [#/Vol] Leukocytes [#/volume ] in Blood by Automated count 4.1-10.5 [facility] aPTT in Platelet poor plasma by Coagulation assayOrdered By: Jacinto Livingston on 04-13-2024 aPTT Coag (PPP) [Time] Activated partial thromboplastin time (aPTT) in platelet poor plasma by coagulation a 25.1-36.5 [facility] Comment on above: A hematocrit value g reater than 55% may lead to inaccurate results in coagulation testing. Patients having hematocrit values >55% require a special collection tube for coagulation studies. Please contact the laboratory at [phone] for redraw instructions. COVID-19 Antigenon 4 COVID-19 Antigen Healthcare Worker?: [...] signs and symptoms consistent with COVID-19. The Emma SARS Antigen ROLANDO does not differentiate between SARS-CoV and SARS-CoV-2. This test was developed and its performance characteristic determined by [employer] and validated at [facility]. This test has not been FDA [...] for SARS Antigen by ROLANDO PERFORMED BY: [place] [address] PATHOLOGIST INCIDENT RESPONSE COORDINATOR BRANDON AVITIA M.D. Normal The Count Includes [facility] Comment on above: Performed By: #### H S TROP #### [address] Glucose Poct Glucometerson 06-13-2023 Glucose [Mass/Vol] 223 mg/dL Normal The Count Includes [facility] Comment on above: Result Comment: [facility] Glucose Reference Range is dependent on time and content of last meal. Glucose of more than 200 mg/dL in a nonstressed, ambulatory subject supports the diagnosis of Diabetes Mellitus. PERFORMED BY: [place] [address] PATHOLOGIST INCIDENT RESPONSE COORDINATOR BRANDON AVITIA M.D. Performed By: #### G LULS #### Point of Care testing , Glucose [Mass/Vol] 121 mg/dL Normal The Count Includes [facility] Comment on above: Result Comment: [facility] Glucose Reference Range is dependent on time and content of last meal. Glucose of more than 200 mg/dL in a nonstressed, ambulatory subject supports the diagnosis of Diabetes Mellitus. PERFORMED BY: [place] [address] PATHOLOGIST INCIDENT RESPONSE COORDINATOR BRANDON AVITIA M.D. Performed By: #### H S TROP #### [address] Glucose [Mass/Vol] 148 mg/dL Normal The Count Includes [facility] Comment on above: Result Comment: [facility] Glucose Reference Range is dependent on time and content of last meal. Glucose of more than 200 mg/dL in a nonstressed, ambulatory subject supports the diagnosis of Diabetes Mellitus. PERFORMED BY: [place] [address] PATHOLOGIST INCIDENT RESPONSE COORDINATOR BRANDON AVITIA M.D. Performed By: #### G LULS #### Point of Care testing , Glucose [Mass/Vol] 178 mg/dL Normal The Count Includes [facility] Comment on above: Result Comment: [facility] Glucose Reference Range is dependent on time and content of last meal. Glucose of more than 200 mg/dL in a nonstressed, ambulatory subject supports the diagnosis of Diabetes Mellitus. PERFORMED BY: [place] [address] PATHOLOGIST INCIDENT RESPONSE COORDINATOR BRANDON AVITIA M.D. Performed By: #### G LULS #### Point of Care testing , No Panel InformationOrdered By: Jacinto Livingston on 04-12-2024 SARS Antigen ([facility]) [facility] SARS-CoV+SARS-CoV-2 (COVID-1 9) Ag [Presence] in Respiratory specimen by Rapid immunoaOrdered By: Jacinto Livingston on 04-12-2024 SARS-CoV+SARS-CoV-2 (COVID-19) Ag IA.rapid Ql (Resp) COVID-19 [facility] Negative [facility] Comment on above: This is a duplicate Emma SARS Antigen (ROLANDO) result to be used for statistical tracking purpose only. Emma Ag Negativeon 04-12-20 Emma Ag Negative Negative Normal Negative The Count Includes [facility] Comment on above: Result Comment: This is a duplicate Emma SARS Antigen (ROLANDO) result to be used for statistical tracking purpose only. PERFORMED BY: [place] [address] PATHOLOGIST INCIDENT RESPONSE COORDINATOR BRANDON AVITIA M.D. Performed By: #### H S TROP #### [place] [address] [place] A1C with Estimated Average G luon 04-11-2024 Glucose [Mass/Vol] 229 mg/dL Normal The Count Includes [facility] Comment on above: Result Comment: PERF ORMED BY: [place] [address] PATHOLOGIST INCIDENT RESPONSE COORDINATOR BRANDON AVITIA M.D. Performed By: #### G LULS #### Point of Care testing , HbA1c (Bld) [Mass fraction] 9.6 % High 4.3-5.6 The Count Includes [facility] Comment on above: Result Comment: Incr eased risk for diabetes: 5.7 - 6.4 diabetes: >6.4 glycemic control for adults with diabetes: <7.0 Performed By: #### G LULS #### Point of Care testing , Alanine aminotransferase [En zymatic activity/volume] in Serum or PlasmaOrdered By: Leslie Jonesr on 04-11-2024 ALT [Catalytic activity/Vol] Alanine aminotransferase [Enzymatic activity/volume] in Serum or Plasma 7-52 [facility] Albumin [Mass/volume] in Ser um or Plasma by Bromocresol green (BCG) dye binding methoOrdered By: Obdeandredaalexander Romeroomar on 04-11-2024 Albumin BCG dye [Mass/Vol] Albumin [Mass/volume] in Serum or Plasma by Bromocresol green (BCG) dye binding metho 3.5-5.7 [facility] Alkaline phosphatase [Enzyma tic activity/volume] in Serum or PlasmaOrdered By: Obbenny Romeroomar on 04-11-2024 ALP [Catalytic activity/Vol] Alkaline phosphatase [Enzymatic activity/volume] in Serum or Plasma 34-104 [facility] Aspartate aminotransferase [ Enzymatic activity/volume] in Serum or PlasmaOrdered By: Leslie Sanchez on 04-11-2024 AST [Catalytic activity/Vol] Aspartate aminotransferase [Enzymatic activity/volume] in Serum or Plasma 13-39 [facility] Bilirubin.total [Mass/volume ] in Serum or PlasmaOrdered By: Leslie Sanchez on 04-11-2024 Bilirubin [Mass/Vol] Bilirubin.total [Mass/volume] in Serum or Plasma 0.3-1.0 [facility] Blood estimated average gluc ose determination by estimation from glycated hemoglobinOrdered By: Leslie Sanchez on 04-11-2024 Average glucose Estimated from glycated hemoglobin (Bld) [Mass/Vol] Glucose mean value [Mass/volume] in Blood Estimated from glycated hemoglobin [facility] Calcium [Mass/volume] in Ser um or PlasmaOrdered By: Leslie Sanchez on 04-11-2024 Calcium [Mass/Vol] Calcium [Mass/volume ] in Serum or Plasma 8.6-10.3 [facility] Cholesterol [Mass/volume] in Serum or PlasmaOrdered By: Leslie Sanchez on 04-11-2024 Cholesterol [Mass/Vol] Cholesterol [Mass /volume] in Serum or Plasma 140-200 [facility] Comment on above: Chol less than 200 m g/dl low riskChol 201-239 mg/dl borderline riskChol 240 mg/dl and greater high risk Cholesterol in HDL [Mass/vol ume] in Serum or PlasmaOrdered By: Leslie Sanchez on 04-11-2024 Cholesterol in HDL [Mass/Vol] Serum or plasma high density lipoprotein (HDL) cholesterol measurement 23-92 [facility] Comment on above: HDL CHOL ATP-III CLA SSIFICATION Cardiovascular RiskHDL > or equal to 60 mg/dL LOWHDL < 40 mg/dL HIGH Cholesterol in LDL Calc [Mas s/Vol]Ordered By: Leslie Sanchez on 04-11-2024 Cholesterol in LDL [Mass/Vol] Cholesterol in LDL [Mass/volume] in Serum or Plasma by calculation 0-100 [facility] Comment on above: LDL ATP III CLASSIFI CATIONLDL less than 100 mg/dL OptimalLDL 100-129 mg/dL Near or above optimalLDL 130-159 mg/dL Borderline highLDL 160-189 mg/dL HighLDL greater than 189 mg/dL Very high Cholesterol in VLDL Calc [Ma ss/Vol]Ordered By: Leslie Sanchez on 04-11-2024 Cholesterol in VLDL [Mass/Vol] Cholesterol in VLDL [Mass/volume] in Serum or Plasma by calculation [facility] Comprehensive Metabolic Pane cole 04-11-2024 Albumin [Mass/Vol] 3.7 g/dL Normal 3.5-5.7 The Count Includes [facility] Comment on above: Performed By: #### G LULS #### Point of Care testing , Albumin/Globulin [Mass ratio] 1.2 {ratio} Normal The Count Includes [facility] Comment on above: Performed By: #### G LULS #### Point of Care testing , ALP [Catalytic activity/Vol] 85 U/L Normal 34-104 The Count Includes [facility] Comment on above: Performed By: #### G LULS #### Point of Care testing , ALT [Catalytic activity/Vol] 42 U/L Normal 7-52 The Count Includes [facility] Comment on above: Performed By: #### G LULS #### Point of Care testing , Anion gap [Moles/Vol] 9.7 mmol/L Normal 6.0-15.0 The Count Includes [facility] Comment on above: Performed By: #### G LULS #### Point of Care testing , AST [Catalytic activity/Vol] 28 U/L Normal 13-39 The Count Includes [facility] Comment on above: Performed By: #### G LULS #### Point of Care testing , Bilirubin [Mass/Vol] 0.6 mg/dL Normal 0.3-1.0 The Count Includes [facility] Comment on above: Performed By: #### G LULS #### Point of Care testing , Calcium [Mass/Vol] 9.0 mg/dL Normal 8.6-10.3 The Count Includes [facility] Comment on above: Performed By: #### G LULS #### Point of Care testing , Chloride [Moles/Vol] 106 mmol/L Normal 98-107 The Count Includes [facility] Comment on above: Performed By: #### G LULS #### Point of Care testing , CO2 [Moles/Vol] 24.6 mmol/L Normal 21.0-31.0 The Count Includes [facility] Comment on above: Performed By: #### G LULS #### Point of Care testing , Creatinine [Mass/Vol] 1.03 mg/dL Normal 0.70-1.30 The Count Includes [facility] Comment on above: Performed By: #### G LULS #### Point of Care testing , Creatinine Clr Calc Pharmacy 104.51 Normal The Count Includes [facility] Comment on above: Performed By: #### G LULS #### Point of Care testing , GFR/1.73 sq M.predicted MDRD (S/P/Bld) [Vol rate/Area] mL/min/{1.73_m2} Normal The Count Includes [facility] Comment on above: Performed By: #### G LULS #### Point of Care testing , Globulin (S) [Mass/Vol] 3.0 g/dL Normal The Count Includes [facility] Comment on above: Performed By: #### G LULS #### Point of Care testing , Glucose [Mass/Vol] 160 mg/dL High 70-100 The Count Includes [facility] Comment on above: Result Comment: [facility] Glucose Reference Range is dependent on time and content of last meal. Glucose of more than 200 mg/dL in a nonstressed, ambulatory subject supports the diagnosis of Diabetes Mellitus. ADA recommended reference range Performed By: #### G LULS #### Point of Care testing , Potassium [Moles/Vol] 4.3 mmol/L Normal 3.5-5.1 The Count Includes [facility] Comment on above: Performed By: #### G FIONALS #### Point of Care testing , Protein [Mass/Vol] 6.7 g/dL Normal 6.4-8.9 The Count Includes [facility] Comment on above: Performed By: #### G FIONALS #### Point of Care testing , Sodium [Moles/Vol] 136 mmol/L Normal 136-145 The Count Includes [facility] Comment on above: Performed By: #### G FIONALS #### Point of Care testing , Urea nitrogen [Mass/Vol] 12 mg/dL Normal 7-25 The Count Includes [facility] Comment on above: Performed By: #### G LULS #### Point of Care testing , ECG 12 lead ECGon 04-11-2024 ECG 12 lead ECG [facility] [place] [address] [place] [address] Electrocardiograph Report Signed Patient: Lyly Quinn MR#: [id number] : 1965 Acct:[id number] Age/Sex: 59 / M ADM Date: 04/10/24 Loc: Room: [address] [place] [address] Type: ADM INOo Attending Dr: Leslie Sanchez [...] change was found Confirmed by [id number] on 04/13/2024 11:13:08 AM Referred By: Electronically Signed By: FAY DALE MD [facility] Transcribed By: MUS Signed By Fay Dale MD, FACC 04/13/24 1113 Normal The Count Includes [facility] Globulin Calc (S) [Mass/Vol] Ordered By: Leslie Sanchez on 04-11-2024 Globulin (S) [Mass/Vol] Serum globulin measurement by calculation (mass/volume) [facility] Glucose Poct Glucometerson 1 06-12-2023 Glucose [Mass/Vol] 178 mg/dL Normal The Count Includes [facility] Comment on above: Result Comment: [facility] Glucose Reference Range is dependent on time and content of last meal. Glucose of more than 200 mg/dL in a nonstressed, ambulatory subject supports the diagnosis of Diabetes Mellitus. PERFORMED BY: [place] [id number] PATHOLOGIST INCIDENT RESPONSE COORDINATOR BRANDON AVITIA M.D. Performed By: #### H S TROP #### [address] Glucose [Mass/Vol] 105 mg/dL Normal The Count Includes [facility] Comment on above: Result Comment: [place] [facility] Glucose Reference Range is dependent on time and content of last meal. Glucose of more than 200 mg/dL in a nonstressed, ambulatory subject supports the diagnosis of Diabetes Mellitus. PERFORMED BY: [place] [address] PATHOLOGIST INCIDENT RESPONSE COORDINATOR BRANDON AVITIA M.D. Performed By: #### G LULS #### Point of Care testing , Glucose [Mass/Vol] 124 mg/dL Normal The Count Includes [facility] Comment on above: Result Comment: [place] Glucose Reference Range is dependent on time and content of last meal. Glucose of more than 200 mg/dL in a nonstressed, ambulatory subject supports the diagnosis of Diabetes Mellitus. PERFORMED BY: [place] [address] PATHOLOGIST INCIDENT RESPONSE COORDINATOR BRANDON AVITIA M.D. Performed By: #### H S TROP #### [address] Commemt1 Glu2: Cleaned Meter Normal The Count Includes [facility] Comment on above: Result Comment: PERF ORMED BY: [place] [address] PATHOLOGIST INCIDENT RESPONSE COORDINATOR BRANDON AVITIA M.D. Performed By: #### G LULS #### Point of Care testing , Glucose [Mass/Vol] 158 mg/dL Normal The Count Includes [facility] Comment on above: Result Comment: [place] [facility] Glucose Reference Range is dependent on time and content of last meal. Glucose of more than 200 mg/dL in a nonstressed, ambulatory subject supports the diagnosis of Diabetes Mellitus. Performed By: #### G LULS #### Point of Care testing , Glucose [Mass/volume] in Ser um or PlasmaOrdered By: Leslie Sanchez on 04-11-2024 Glucose [Mass/Vol] Glucose [Mass/volume ] in Serum or Plasma High 70-100 [facility] Comment on above: ADA recommended refe rence rangeRandom Glucose Reference Range is dependent on time and content of last meal. Glucose of more than 200 mg/dL in a nonstressed, ambulatory subject supports the diagnosis of Diabetes Mellitus. Hemoglobin A1c/Hemoglobin.to madhuri in BloodOrdered By: Leslie Sanchez on 04-11-2024 HbA1c (Bld) [Mass fraction] Hemoglobin A1c percentage High 4.3-5.6 [facility] Comment on above: Increased risk for d iabetes: 5.7 - 6.4diabetes: >6.4glycemic control for adults with diabetes: <7.0 Lipid Panelon 04-11-2024 Cholesterol [Mass/Vol] 140 mg/dL Normal 140-200 Th e Count Includes [facility] Comment on above: Result Comment: Chol less than 200 mg/dl low risk Chol 201-239 mg/dl borderline risk Chol 240 mg/dl and greater high risk Performed By: #### G LULS #### Point of Care testing , Cholesterol in HDL [Mass/Vol] 35 mg/dL Normal 23-92 The Count Includes [facility] Comment on above: Result Comment: HDL CHOL ATP-III CLASSIFICATION Cardiovascular Risk HDL > or equal to 60 mg/dL LOW HDL < 40 mg/dL HIGH Performed By: #### G LULS #### Point of Care testing , Cholesterol.total/Chol esterol in HDL [Mass ratio] 4.0 {ratio} Normal <5.0 The Count Includes [facility] Comment on above: Performed By: #### G LULS #### Point of Care testing , LDL Cholesterol,Calculated 54 mg/dL Normal 0-100 The Count Includes [facility] Comment on above: Result Comment: LDL ATP III CLASSIFICATION LDL less than 100 mg/dL Optimal LDL 100-129 mg/dL Near or above optimal LDL 130-159 mg/dL Borderline high LDL 160-189 mg/dL High LDL greater than 189 mg/dL Very high Performed By: #### G LULS #### Point of Care testing , Triglyceride w/Reflex 253 mg/dL High 0-149 The Count Includes [facility] Comment on above: Result Comment: TRIG ATP III CLASSIFICATION TRIG less than 150 mg/dL Normal TRIG 150-199 mg/dL Borderline high TRIG 200-500 mg/dL High TRIG greater than 500 mg/dL Very high Standard traceable to the Center for Disease Conrtrol and Prevention (CDC) test method. Performed By: #### G LULS #### Point of Care testing , VLDL CHOLESTEROL 50 mg/dL Normal The Count Includes [facility] Comment on above: Performed By: #### G LULS #### Point of Care testing , Magnesiumon 04-11-2024 Magnesium [Mass/Vol] 2.0 mg/dL Normal 1.9-2.7 The Count Includes [facility] Comment on above: Performed By: #### G LULS #### Point of Care testing , Magnesium [Mass/volume] in S fina or PlasmaOrdered By: Leslie Sanchez on 04-11-2024 Magnesium [Mass/Vol] Magnesium [Mass/vol ume] in Serum or Plasma 1.9-2.7 [facility] No Panel InformationOrdered By: Leslie Sanchez on 04-11-2024 Bedside Glucose Comment Glu2: cleaned meter [facility] Outside Recordson 04-11-2024 Outside Records [id number]#1.00OTGTIFF Normal [facility] Outside Records [id number]#1.00OTGTIFF [facility] Protein [Mass/volume] in Ser um or PlasmaOrdered By: Leslie Sanchez on 04-11-2024 Protein [Mass/Vol] Protein [Mass/volume ] in Serum or Plasma 6.4-8.9 [facility] Rad - Other Radiology Report on 04-11-2024 Rad - Other Radiology Report [id number]#1.00OTGTIFF [facility] Serum or plasma albumin/glob ulin mass ratioOrdered By: Leslie Sanchez on 04-11-2024 Albumin/Globulin [Mass ratio] Serum or plasma albumin/globulin mass ratio [facility] Serum or plasma total choles terol/high density lipoprotein (HDL) cholesterol mass ratOrdered By: Leslie Sanchez on 04-11-2024 Cholesterol.total/Chol esterol in HDL [Mass ratio] Serum or plasma total cholesterol/high density lipoprotein (HDL) cholesterol mass rat <5.0 [facility] Thyroid Stimulating Hormoneo n 04-11-2024 TSH Qn 1.00 m[IU]/L Normal 0.45-5.33 The Count Includes [facility] Comment on above: Result Comment: PERF ORMED BY: [facility] [address] [place] [address] PATHOLOGIST INCIDENT RESPONSE COORDINATOR BRANDON AVITIA M.D. Performed By: #### G LULS #### Point of Care testing , Thyrotropin [Units/volume] i n Serum or PlasmaOrdered By: Leslie Sanchez on 04-11-2024 TSH Qn Thyrotropin [Units/v olume] in Serum or Plasma 0.45-5.33 [facility] Triglyceride [Mass/volume] i n Serum or PlasmaOrdered By: Leslie Sanchez on 04-11-2024 Triglyceride [Mass/Vol] Triglyceride [Mass/volume] in Serum or Plasma High 0-149 [facility] Comment on above: TRIG ATP III CLASSIF ICATIONTRIG less than 150 mg/dL NormalTRIG 150-199 mg/dL Borderline highTRIG 200-500 mg/dL High TRIG greater than 500 mg/dL Very highStandard traceable to the Center for Disease Conrtrol and Prevention (CDC) test method. B-Type Natriuretic Peptideon 04-10-2024 Natriuretic peptide B (Bld) [Mass/Vol] 26.0 pg/mL Normal 5-100 The Count Includes [facility] Comment on above: Result Comment: PERF ORMED BY: [facility] [address] [place] [address] PATHOLOGIST INCIDENT RESPONSE COORDINATOR BRANDON AVITIA M.D. Performed By: #### G LULS #### Point of Care testing , Basic Metabolic Panelon 03-20 Anion gap [Moles/Vol] 11.2 mmol/L Normal 6.0-15.0 Th e Count Includes [facility] Comment on above: Performed By: #### G LULS #### Point of Care testing , Calcium [Mass/Vol] 10.0 mg/dL Normal 8.6-10.3 The Count Includes [facility] Comment on above: Performed By: #### G LULS #### Point of Care testing , Chloride [Moles/Vol] 104 mmol/L Normal 98-107 The Count Includes [facility] Comment on above: Performed By: #### G LULS #### Point of Care testing , CO2 [Moles/Vol] 22.5 mmol/L Normal 21.0-31.0 The Count Includes [facility] Comment on above: Performed By: #### G LULS #### Point of Care testing , Creatinine [Mass/Vol] 0.82 mg/dL Normal 0.70-1.30 The Count Includes [facility] Comment on above: Performed By: #### G LULS #### Point of Care testing , Creatinine Clr Calc Pharmacy 130.19 Normal The Count Includes [facility] Comment on above: Result Comment: PERF ORMED BY: [address] [place] [address] PATHOLOGIST INCIDENT RESPONSE COORDINATOR BRADNON AVITIA M.D. Performed By: #### G LULS #### Point of Care testing , GFR/1.73 sq M.predicted MDRD (S/P/Bld) [Vol rate/Area] mL/min/{1.73_m2} Normal The Count Includes [facility] Comment on above: Performed By: #### G LULS #### Point of Care testing , Glucose [Mass/Vol] 143 mg/dL High 70-100 The Count Includes [facility] Comment on above: Result Comment: [place] Glucose Reference Range is dependent on time and content of last meal. Glucose of more than 200 mg/dL in a nonstressed, ambulatory subject supports the diagnosis of Diabetes Mellitus. ADA recommended reference range Performed By: #### G LULS #### Point of Care testing , Potassium [Moles/Vol] 3.7 mmol/L Normal 3.5-5.1 The Count Includes [facility] Comment on above: Performed By: #### G LULS #### Point of Care testing , Sodium [Moles/Vol] 134 mmol/L Low 136-145 The Count Includes [facility] Comment on above: Performed By: #### G LULS #### Point of Care testing , Urea nitrogen [Mass/Vol] 10 mg/dL Normal 7-25 The Count Includes [facility] Comment on above: Performed By: #### G LULS #### Point of Care testing , Complete Blood Count Auto Di ffon 04-10-2024 Basophils (Bld) [#/Vol] 0.1 10*3/uL Normal 0.0-0.2 The Count Includes [facility] Comment on above: Result Comment: PERF ORMED BY: [place] [address] PATHOLOGIST INCIDENT RESPONSE COORDINATOR BRANDON AVITIA M.D. Performed By: #### H S TROP #### [address] Basophils/100 WBC (Bld) 1.2 % Normal . The Count Includes [facility] Comment on above: Performed By: #### H S TROP #### [place] [address] [place] Eosinophils (Bld) [#/Vol] 0.1 10*3/uL Normal 0.0-0.45 The Count Includes [facility] Comment on above: Performed By: #### H S TROP #### [address] Eosinophils/100 WBC (Bld) 1.3 % Normal . The Count Includes [facility] Comment on above: Performed By: #### H S TROP #### [address] Erythrocyte distribution width (RBC) [Ratio] 12.8 % Normal 12.0-14.8 The Count Includes [facility] Comment on above: Performed By: #### H S TROP #### [address] Hematocrit (Bld) [Volume fraction] 44.8 % Normal 38.8-50.0 The Count Includes [facility] Comment on above: Performed By: #### H S TROP #### [address] Hemoglobin (Bld) [Mass/Vol] 15.4 g/dL Normal 13.0-17.0 The Count Includes [facility] Comment on above: Performed By: #### H S TROP #### [place] [address] [place] Lymphocytes (Bld) [#/Vol] 3.5 10*3/uL Normal 1.00-4.8 The Count Includes [facility] Comment on above: Performed By: #### H S TROP #### [address] Lymphocytes/100 WBC (Bld) 40.9 % Normal . The Count Includes [facility] Comment on above: Performed By: #### H S TROP #### [place] [address] [place] MCH (RBC) [Entitic mass] 31.1 pg Normal 27.5-35.2 The Count Includes [facility] Comment on above: Performed By: #### H S TROP #### [address] MCV (RBC) [Entitic vol] 90.4 fL Normal 83.5-101 The Count Includes [facility] Comment on above: Performed By: #### H S TROP #### [address] Mean Corpuscular HGB Conc 34.4 g/dL Normal 32.5-35.6 The Count Includes [facility] Comment on above: Performed By: #### H S TROP #### [place] [address] [place] Monocytes (Bld) [#/Vol] 0.5 10*3/uL Normal 0.0-0.8 The Count Includes [facility] Comment on above: Performed By: #### H S TROP #### [place] [address] [place] Monocytes/100 WBC (Bld) 21.73 % High 0.00-20.00 The Count Includes [facility] Comment on above: Result Comment: For adults in ED, MDW > 20.0 may be associated with a higher risk of sepsis during the first 12 hrs of hospital admission Performed By: #### H S TROP #### [place] [address] [place] Monocytes/100 WBC (Bld) 5.6 % Normal . The Count Includes [facility] Comment on above: Performed By: #### H S TROP #### [facility] [address] [place] [address] [place] Neutrophils (Bld) [#/Vol] 4.3 10*3/uL Normal 1.8-7.7 The Count Includes [facility] Comment on above: Performed By: #### H S TROP #### [place] [address] [place] Neutrophils/100 WBC (Bld) 51.0 % Normal . The Count Includes [facility] Comment on above: Performed By: #### H S TROP #### [address] NRBC% 0.1 /100{WBC} Normal 0-0.5 The Count Includes [facility] Comment on above: Performed By: #### H S TROP #### [address] Platelet mean volume (Bld) [Entitic vol] 7.4 fL Normal 6.6-10.1 The Count Includes [facility] Comment on above: Performed By: #### H S TROP #### [place] [address] [place] Platelets (Bld) [#/Vol] 293 10*3/uL Normal 150-450 The Count Includes [facility] Comment on above: Performed By: #### H S TROP #### [place] [address] [place] RBC (Bld) [#/Vol] 4.96 10*6/uL Normal 3.90-5.60 The Count Includes [facility] Comment on above: Performed By: #### H S TROP #### [place] [address] [place] WBC (Bld) [#/Vol] 8.5 10*3/uL Normal 4.1-10.5 The Count Includes [facility] Comment on above: Performed By: #### H S TROP #### [place] [address] [place] D-Dimer High Sensitivityon 06-11-2023 D-Dimer High Sensitivity <200 Normal 0-243 The Count Includes [facility] Comment on above: Result Comment: [...] coagulation studies. Please contact the laboratory at [phone] for redraw instructions. PERFORMED BY: [place] [id number] PATHOLOGIST INCIDENT RESPONSE COORDINATOR BRANDON AVITIA M.D. Performed By: #### G LULS #### Point of Care testing , ECG 12 lead ECGon 04-10-2024 ECG 12 lead ECG [facility] Main [place] [id number] Electrocardiograph Report Signed Patient: Lyly Quinn MR#: [id number] : 1965 Acct:[id number] Age/Sex: 59 / M ADM Date: 04/10/24 Loc: ER Room: Type: [facility] ER Attending Dr: Ordering Provider: [...] Sinus tachycardia Confirmed by Brian BLANCHARD DO ([id number]) on 04/10/2024 3:39:55 PM Referred By: Electronically Signed By: Brian BLANCHARD DO Transcribed By: MUS Signed By Brian Blanchard DO 1 06/11/23 1539 Normal The Count Includes [facility] ECG 12 lead ECG [facility] Main [place] [address] [place] [address] Electrocardiograph Report Signed Patient: Lyly Quinn MR#: [id number] : 1965 Acct:[id number] Age/Sex: 59 / M ADM Date: 04/10/24 Loc: ER Room: Type: [facility] ER Attending Dr: Ordering Provider: [...] sinus rhythm Confirmed by Brian BLANCHARD DO ([id number]) on 04/10/2024 3:38:47 PM Referred By: Electronically Signed By: Brian BLANCHARD DO Transcribed By: MUS Signed By Brian Blanchard DO 1 06/11/23 1538 Normal The Count Includes [facility] Fibrin D-dimer [Presence] in Platelet poor plasma by Latex agglutinationOrdered By: Des Contreras on 04-10-2024 Fibrin D-dimer LA Ql (PPP) Fibrin D-dimer [Presence] in Platelet poor plasma by Latex agglutination 0-243 [facility] Comment on above: The reference range for D-dimer is <243 ng/mL D-dimer units.D-dimer results must be used in conjunction with a clinicalpretest probability (PTP) assessment model for deep veinthrombosis (DVT) and pulmonary embolism (PE). Results <230ng/mL d-dimer units can be used as a negative predictor inpatients with low or moderate probability for DVT/PE.Results above the exclusion threshold of 230 ng/ml D-dimerunits for DVT/PE may indicate the need for furtherdiagnostic testing.D-Dimer can be increased in hospitalized patients due toco-morbid conditions.A hematocrit value greater than 55% may lead to inaccurate results in coagulation testing. Patients having hematocrit values >55% require a special collection tube for coagulation studies. Please contact the laboratory at [phone] for redraw instructions. Glucose Poct Glucometerson 1 06-11-2023 Commemt1 Glu2: Cleaned Meter Normal The Count Includes [facility] Comment on above: Result Comment: PERF ORMED BY: [facility] [address] [facility] [place] [address] PATHOLOGIST INCIDENT RESPONSE COORDINATOR BRANDON AVITIA M.D. Performed By: #### G LULS #### Point of Care testing , Glucose [Mass/Vol] 151 mg/dL Normal The Count Includes [facility] Comment on above: Result Comment: [place] om Glucose Reference Range is dependent on time and content of last meal. Glucose of more than 200 mg/dL in a nonstressed, ambulatory subject supports the diagnosis of Diabetes Mellitus. Performed By: #### G LULS #### Point of Care testing , Glucose [Mass/Vol] 136 mg/dL Normal The Count Includes [facility] Comment on above: Result Comment: [place] om Glucose Reference Range is dependent on time and content of last meal. Glucose of more than 200 mg/dL in a nonstressed, ambulatory subject supports the diagnosis of Diabetes Mellitus. PERFORMED BY: [address] [address] PATHOLOGIST INCIDENT RESPONSE COORDINATOR BRANDON AVITIA M.D. Performed By: #### G LULS #### Point of Care testing , Monocyte distribution width [Entitic volume] in Blood by AutomatedOrdered By: Des Contreras on 04-10-2024 Monocyte distribution width Auto (Bld) [Entitic vol] Monocyte distribution width [Entitic volume] in Blood by Automated High 0.00-20.00 [facility] Comment on above: For adults in ED, MD W > 20.0 may be associated with a higher risk of sepsis during the first 12 hrs of hospital admission Natriuretic peptide B [Mass/ Vol]Ordered By: Des Contreras on 04-10-2024 Natriuretic peptide B (Bld) [Mass/Vol] BNP ser/plas 5-100 [facility] Outside Recordson 04-10-2024 Outside Records [id number]#1.00OTGTI Normal [facility] Outside Records [id number]#1.00OTGTI Normal [facility] Outside Records [id number]#1.00OTGTI FF Normal [facility] Outside Records [id number]#1.00OTGTI [facility] Prothrombin Time INRon 04-10 INR Coag (PPP) [Relative time] 2.2 {INR} Normal The Count Includes [facility] Comment on above: Result Comment: [...] valves: 3 - 4.5 Performed By: #### G LULS #### Point of Care testing , PT Coag (PPP) [Time] 25.4 s High 9.0-12.9 The Count Includes [facility] Comment on above: Result Comment: A he matocrit value greater than 55% may lead to inaccurate results in coagulation testing. Patients having hematocrit values >55% require a special collection tube for coagulation studies. Please contact the laboratory at [phone] for redraw instructions. Performed By: #### G LULS #### Point of Care testing , Rad - Other Radiology Report on 04-10-2024 Rad - Other Radiology Report [id number]#1.00OTGTI [facility] Troponin I High Sensitivityo n 04-10-2024 Troponin I High Sensitivity 3.2 pg/mL Normal 0.0-20.0 The Count Includes [facility] Comment on above: Result Comment: PERF ORMED BY: [facility] [address] [place] [address] PATHOLOGIST INCIDENT RESPONSE COORDINATOR BRANDON AVITIA M.D. Performed By: #### H S TROP #### [address] Troponin I High Sensitivity 3.1 pg/mL Normal 0.0-20.0 The Count Includes [facility] Comment on above: Result Comment: PERF ORMED BY: [place] [address] PATHOLOGIST INCIDENT RESPONSE COORDINATOR BRANDON AVITIA M.D. Performed By: #### H S TROP #### [address] Troponin I High Sensitivity 3.0 pg/mL Normal 0.0-20.0 The Count Includes [facility] Comment on above: Result Comment: PERF ORMED BY: [place] [address] PATHOLOGIST INCIDENT RESPONSE COORDINATOR BRANDON AVITIA M.D. Performed By: #### G LULS #### Point of Care testing , Troponin I.cardiac [Mass/vol ume] in Serum or Plasma by Detection limit <= 0.01 ng/Ordered By: Leslie Sanchez on 04-10-2024 Troponin I.cardiac DL <= 0.01 ng/mL [Mass/Vol] Troponin I.cardiac [Mass/volume] in Serum or Plasma by Detection limit <= 0.01 ng/ 0.0-20.0 [facility] XR chest 1V portableon 04-10 XR chest 1V portable [facility] Main [place] [address] [place] [address] XRay Report Signed Patient: Lyly Quinn MR#: [id number] : 1965 Acct:[id number] Age/Sex: 59 / M ADM Date: 04/10/24 Loc: ER Room: Type: [facility] ER Attending Dr: Copies to: [...] [place] Soni M.D.04/10/2024 12:55 PM Dictation Location: [facility]- Transcribed By: RADHA 04/10/24 1255 Dictated By: Afriac Soni MD 04/10/24 1253 Signed By: 04/10/24 1255 Normal The Count Includes [facility] Outside Recordson 04-07-2024 Outside Records [id number]#1.00OTGTIFF [facility] Outside Records [id number]#1.00OTGTIFF [facility] Rad - Other Radiology Report on 04-06-2024 Rad - Other Radiology Report [id number]#1.00OTGTIF [facility] Rad - Other Radiology Report on 04-04-2024 Rad - Other Radiology Report [id number]#1.00OTGTIFF [facility] Outside Recordson 04-03-2024 Outside Records [id number]#1.00OTGTIFF [facility] Influenza virus A and B and SARS-CoV-2 (COVID-19) RNA panel - Respiratory system specon 03-31-2024 Influenza virus A and B RNA and SARS-CoV-2 (COVID-19) N gene panel LEATHA+probe (Resp) Influenza virus A and B and SARS-CoV-2 (COVID-19) RNA panel - Respiratory system spec [facility] Laboratory - Microbiology an d Antimicrobial susceptibilityon 03-31-2024 SARS-CoV-2 (COVID-19) RNA LEATHA+probe Ql (Unsp spec) Negative [facility] No Panel Informationon 03-31 POC Influenza B (LEATHA) Negative [facility] Diabetes Noteon 03-21-2024 Diabetes Note Patient [...] 10:55 EST] Erica Quiroz RN CDE BSN [facility] Coding Summaryon 03-13-2024 Coding Summary HTMLBase 64 ZjxymwyrRJv1hMc+PGhlYWQ+PE 2SDMSmH13irPQmyO5hU1WZSYsZ YdzsWMBRECxZJvPgllIiWK9umN NjZXJu IC8+RH2mMDGgSokdaZYtf9R8xI Z1S14odz6pLFrjoBU8DMRrFyQl brsdi0igiKn4ZXwqRunjEdYv TRWpeB17HHC2pA95Fs43aIRneP Ntr6naaFh2MxJfMZFyHIY7wQsa MKzim6VkISVqS65hmZEam0T8 IFTwbNjgfLTsKlWooHA7mO2oHU ayodsvg7ypceelAfg4rs24dKEg a9S4sJF4O9KedyW4AAGgsLRt GrwysZBZjQ4vygjdv4pqrfvrEa PlOPUbUEg5CWs9OGKcjJxyCpHi TK23BQM9PRFeslZnO1FcBIWn bZayKcK6l5A0Js3CW2GMHdyyS1 VNTUFSWTwvdGQ+VH17oa54Y2Eh DgwxIyv8ZEZgKZS7vYF7xN5d UYRpLHdjl7B3eXO6B4HgpsIjbs 4ly1yuPXFkPRjuK78wzCDab1K6 WRVghPF6PLStsPewWlQegR19 Oyc+OYSwrThtb6PpAdlwc6jdc0 osqMg9JhgkUFKgxtQmzDapFGN3 j0AmHh5lXLJllSR7gOM3yJ7o IyWkHuY1BTgpK264OiOocDSpZb jfU73wK4GciQT+KOAhGhr8QRHq uKmoAN4qH9WyPRVcpdzquYYj xShjIB1lWMNohedcIPFmsZ9yAV LkW2h2NhSgQwV0QKujD5JpPARn smkoOc70cO1vNlHdZlY9GUmm W0CmmhT3JSBeiICsPGmaPZJ3J4 4ht7B2GOBlELTzNJX6jLA6iR0g bGlnbjogbGVmdDsgdmVydGlj DIbyZKvnD105VXYxbOvbQgBeGD luZyBEYXRlOiAgMTEvMjUvMjAy NDwvdGQ+HEZmXFQ6oPhzKLZp xJViAJotId9ktUxrpLmvZB6bIT WvjllvKTIrbM5wNIAiyMEeoMzh PH5uGGCibwosq499WwTpFLD0 HNFtwDHqR0UxeV0xAlQpVGJwEI RaO6WfpLAhHWfiM106OEidBrL9 IISdlkZmI0MxSGLbgQtjMjR0 z0G8Rv8Ne9NhzmdsC4AzqMOjZt RvHuhgEIl9P8ZqPginjWW+PC90 AHRmVP57LRq3VTR2yIypFDrc BSEuS4NamY4rOcDpDPAzXFDdLz c+PHRhYmxlIHdpZHRoPScxMDAl MrHspDwsMG3jAh0sBHCmJKGh kXrkmYJkHtVpw8ttFKMiHUxxDX 1ruTxgR7TleUI4QJHvb3q4Vm92 J84vZ9FavXM+KHCwdMR4mYV9 tL8lTyPnWeP6DKstC302TcSndD RaWhfuj0mqs1bmiNy4OpV9HDUp ugKebSieTCZ4d1EwNj97G58l IHdpZHRoPSIxNSUiIHZhbGlnbj 3nvY2bTo2+YNOwfKF1rQA2jZ8r OmNvYoP4NKksH196QsOooXRx Mswzz8dzg3dzeTx3GyIzQVVhay EenShvBNQ0c3FtLm79C5XggMjc t1GcBfk2kq77uEGfe4G9dGD4 N1CkEYEnokipnRIfxJitHB5tZQ WxsdkfWGNswL0cUDJmT0y0BoDq NjI7XZilR9BbnyS4OCPyuNFp IBSuxWHQdP4ngwjgh3xbuvhpEu OlURDqIDx5LLg0ZOKkbQzxEeOu XVP1DkQ1OLD1uMRsjV4jkPzi xwlxyR2lYcg+WMW8rDHaaHWKTO 1lOjwvdGQ+WNHjDHH3yMquLQgw NFJeoO6aEUEfT7o8SaFhMpP3 AXumY9XknsY5ILZmcZHjZICamM MMmX8qpcqul7qeiugkPrXqZIZo PYo5EEm8YHFjlKkbNsYcXQH2 CaV0FNC7aECllG7vjCylptntdA 9wOyc+NhkxfKlaLGN6UQm1I9Bh Eyo2VRCpqTcmPN7lbCTpPNmc Th7wiRwfvQkeHN2rIIVjyzeyy5 30JaNwe4tmTCGceOTdUAheYGL4 N98vs4N6NEHdLTJmXWM7pBA5 uQ8dzXthtlgxbQUypQgprnHfeQ wwYZpuTMwxQ883AUQorWiiTrZb YYv4D5RaSoy5VHZwjYltFW5n aLZzAQjpIh2xhNvdnRwoGH6vHP Rvfzzkp784DoTgg0ltQPRdlHIj LCvaZGM8Y01hj9R5ZEIpFSDq QUD6zIY2gR0pyPmlokhuzYClcU kmpkRsnBjzNSwrKLjhB930UKWo bQjjEdNcqJq8O3LtVnk3TYKl aWbhCX1ynAMqIHkzUx4haMorrX tzIZ7nGXCszozxg651GvWkj6xa AHHpfYZkGOjkXVZ7B69jy9M5 MKUeSBMsQJS9wAP9qN7azWaqos ogbGVmdDsgdmVydGljYWwtYWxp Q235ZSXycQpiZmEhtHwpdgRe HFkwXSp0X5HjAcklsTN+PC90YW LmMY98qTIjwWCzm1mabCs9UmSn DATkRKL4xUsvAHldb8NnCXEf O38dxWUeo6Y2EXEfzWdqeOAdLg FgcWQ5bK0cNJydsywxo6bizmrk Aelom1gttq99qG66N40zGRaj EKWjIMDkLMOuBFHpoEyzmt1mrU 9wIi8+JNImbWQ8fIK7sE7fMNIo MmW2QBlvW008KcLatYQvMjzg b5iex6kurTb3GkS2KZCopwDizO ynCQT2p6PxRd93C57eHRqnRABu RUEkKWFlAEWnsLxish3koJ9w Ii8+OIMzcYU0jNH7qN3dVcNrBz E1CEynF628ToGtzGBhKnjwK26z M5FhkYB+ZDKlKwi9UYIehWwi VF5nzKXmRNhpSq9wRTK0HzFoPr KlDLurV5DxPQDjgdzbgfwicFV3 VRPaOENpcK99Ab0laLwnNPUq hCICkH1uxszka6ukfaqbEfWpUY DpOWp7OWw3KNCouSksYiAjRBB8 CdH5FEQ5lXOlgH2yvSigposy tA2eQ9UzVGYlfhopDv65xQ2vAc SqNtE2WFpmHio+KieEQ5NjKDTC EZ4nK0vBIGjYHKcgnHF+PHRk YSO1wOyyTQzoTWFskC3uWCZmL7 h8VbNnXnV5YXqhF3VwAMBlcepu Ss13fI9mGpDvOmP9FFhaZ4Zg ksH6FTByfMCoIAifJAC7M20wt4 U3JQDjEXYmQPI7oPH7iW4qbBrp bjogbGVmdDsgdmVydGljYWwt FZiaC142JFIflQnpRkYxEgQ6Ev I5IoK8H3QqGoq5GXVvdRkySB9z bTSeBKwmPx1icTisyJguZL7b PAHudnbhXYHoqT9wJWPukBRwkU toOA1lHKKjjpoqe936SzKvXLS0 YBNrcRDfR6DbnO5rRdBfZMJz ZLLqU6RtzMBvNXqaV227CIkmTy V0MCAtznHqS4DfBIWgyHxnKxZ6 m1F3Wt32ZtBROWRlqelclSG+ UIXlUSX7lZldRNttTVGezL5qFA IuM3t3MaByRdY1LSdrM1KaNCCj xdtmZg52gX2dMvUzJeW0LSce A2KyigD3AIPfpPRaKPwdJZF6X5 5ed0T1CENaEEUjYXX9wKF0oY7a bGlnbjogbGVmdDsgdmVydGlj PTwuMRfvB872CFKlkPwhCa3ZMC G2B8SnIxt8IHIjbZfoVJ6arEZi YAvfKu1wyCqygOdnTM0nFUOx vgmmDBYejQ1wCUOtuRDhlIxdCK 0iNOMkyuudz913CpTfUZG7FTBy jXJhC6ZbjU5xQuSoSMWnPCGw M3WpcXWsSYmxK742POaiOvF1IN OecjAtP1YjDVVuyAmuRsT8g0J4 Vx8XGZR9bjTahzveC1F7mHH6 aWVudDwvdGQ+SA91um71O7PnIw crClo4VAUvAOO8rGU4bV9lFKZa HSdbx2M7gEL3D7OljeUedd5z z8ehDHQsKEnbF01bqXGzu9Q3EU LplGD3JVGgbKnoUzIneY20Spo+ BBCimJvvb2TpChmkt8ttn7ca hGl3EjLzWANzzeDvdCgeVUK2y9 WnEt58P03uRPtlBGYbJAUqIRMx QZUgiZursl5saZ3gXz7+PGNv yZD5wTX1qP7aIcLdYiT8YGrrP2 78MaLcmMLhEeatb1kvm8ztpDn7 EmBrGRBqvrYvbOpsKBW4d3Fs Cf28Q5JdwLqui0FqWnk2po57gK Tql7N3lSO7U4EoUEZaihyexBHx oUegUN8qLXPsugzuRYRyhW9j UMVpZ9u2WkMaXiR5MHtaK0Vilv S2FJWndFXbXXOtjFPTzH9ejqya t1cuaymdHqPjVTBuCBl1CHq9 MGGqkBlpKiJzPPR5OjL2WBJ4yX WanQ6ctBflcujkoL9jWvo+UGh5 w7iotEYtHQ5wwJT5WO78LN88 sWYpk7K1vSB7O9ZqGWRdpegqji gtcEL7FHCcDOFahX58Ce5gmPkk Nk3yRHDeKGE3PSDbtBJbZ0Sp oK2zOoHnSFHzTUKtR1ZzmBAfQM xqC302MIqwCsK6VOGcfaUqF1Ii MDNwaLnhJrA9x4U9Ok1GLF50 LD81AN65rGTad9B8hKC0U6AcYD VmyzyshdhnuAM9AHWzZXNzaH48 Nu1fkWroIa5mVXTbNML3FBFu cZOqJ2BzlQ5jYsTwVPIsVSUiN2 PrmDCtMFshP209XBilItC9UGMc xmDeY8ThHKSzzAukSyT9x9Z2 At2YXv78AC35BY28pRUok8N3dH R5W7HoLWShbmvlbhxxxWL4KGWl DWNuqX64Ja5udWkmMm4nLAIx MZH8ADJxrCRwN7KtnC5eAlGuQI JsUGUgT6LuzDUsNPddY725GUyy ZaI1PGNcweIcF4SkJSVunJhi HrL9j1A8Fi5BZPuqvsz3W5ExEz wvdHI+BW27FPTmUQ43rDGtfTTg o4sjvYc3PzIpQBZmJEF0yLbu PSd (more content not included)... [facility] Provider Orderson 02-11-2024 Provider Orders [id number][facility] Result[facility] Lab - Other Lab Results [id number]#[facility] - Other Radiology Report on 02-04-2024 Rad - Other Radiology Report [id number][facility] Coding Summaryon 09-23-2023 Coding Summary HTMLBase 64 PqishzocYTm3zSt+PGhlYWQ+PE 9JUKOoQ66nsBBlmR1yG6RFYIkA SrimGOZTXMkKWwJdobPkRX2bnN NjZXJu IC8+OI7gRIZbFukesGPud1L1uR F3V41qlv3uNRfciCX1SLCqJnSd jatvw5sufBb9IBhcUgykYrEj AIQufZ99NLU8kN44Wc00uIYriM Lmp0glnRo6DnZvCSRaCFV4eOgn BIahv6YsSQZyG02tnOThf5G0 YIKoxCocgVQlUiGltWZ3iN0jBB mqrxivl3cubfjjNyv4kl86qDBq y1F7iLY9Q5SgqfA5UOCocBMu GhghnVGWjP6tdeozj2uidktoHm XeKYHyFOj6SGp6OLEjnQsdYnEy FG14NID3QCQmdoUwF3InUGZa pWblGoY9j5P0Vw7GP0NSMmqzX1 VNTUFSWTwvdGQ+MI26ig57S0Ez NkkgJcb7IUCiKQE9eHJ0dU3e GSEeHIdxf8B1aVB5H3GbkuSncp 2ig6fxHYNfOUoaJ27cuSIsu9S0 RIKlrUT5HIWehJooHtXuoZ86 Oyc+FYVmlQsvv6QwLzevs0lqt1 wzbUe8LeinSSMgidYqcTgmGSS0 x3PoTg8tNAAjaIV6dOW6sJ6b EuHlExH9QImwR111AgQhhLLoPy mfK02zC1EbfIV+VGCaGyz7QAZj zDpxSM8sG3VbQBNenorhpAOm iDxgFY7fOYEdnrpmOFYvlK6aRI SkF9l5JcBjXkC3WUqsV0BjXPSb xziiIl94sW0mLbYcUhV1YHje G2FruzV1AYIvnIYbSQbfHHH2K0 7kh1V6XCXdBSJbWHE0pRC5wE4c bGlnbjogbGVmdDsgdmVydGlj FApjCRelE198UCWbbGlmMzJyDH luZyBEYXRlOiAgMDYvMDYvMjAy NDwvdGQ+UASoDPY1pIwyPCCc fEEhBCfyFg0ezOruwZenOV6jMM UzymrxMARqbD2zWJIqnHMsqFjo JA6rZRAgczeoo440PgYlGFT5 OSAgmIJoS3DojK6bPdOiKMArSR FjW2UzuUOvHRvjS264EEvqLdH3 SNLddwRvU8VlWEEwcHxkBlK9 w1S2Kz2Fu1XfhkbkW2NlkKSiEx KcQbsaLQt5K4EsTaxykGB+PC90 SMXtNK27WRl4OCB2yBpqUXse JHSqQ8NqhX1vKsVxFAIcJCSoMw c+PHRhYmxlIHdpZHRoPScxMDAl VrCskVisAM0kIs9nUQPlPDHr mAaeyCGqUbJnz5rfMVPaIYfkFI 7jaBjbG4KcuYG7KAIqf3y6Ow64 Y12hQ7AjfVF+JFWlaLG3wBN0 gZ7yYfLlSgO1FSvhF425QeBtaP MpCahgt3lpz0gucCa0IpK3DILq dmIwgNkfUMI2e0EfRy82A32h IHdpZHRoPSIxNSUiIHZhbGlnbj 8moO4xSs8+GHUpeJW3rNX6bU3g TjFmGoE9XZmeH159MdXbtMNv Ffkit2cqw6upuFy7DfInHUUbgt EhrPlhKKU2k7PmYc05O9LrcQgo z6UdBro3va98qSWvc7Q3fWZ4 Z0QxJJIjmbbljVQwpEprLN9wUZ GojdrtJVRcvF5rCBTbU4l7McMa JmJ2VDejO8BuzmF0RASanDWk RTKqzJCPpR5yprgno4eauvmnAu QeMVLqQIo0ZRt3XZQbtNxlGvUv RDV5JeO4TGB7bEVjmI2srYap dsydsC3vMfc+DBS0pXFwvJEELF 1lOjwvdGQ+NJKtZDO1lGgrFFaz EKUpiO7qLAZrU1l6FxIlNjL6 RJqnQ4IqlmS7UXJwhIAwKGSykY DGkK3ktcjoz9tywhyfJpZeDPAv JDe0SMa5ZSXasMsvUnAqTZM1 BsT0ZHN3pDBhyZ6uqEicxzfhlN 9wOyc+OvkwrClxMLK4ASw9Z0Qi Jzs9DJWxrYvnJD5gpADmOAuf In6kbHrkbAfvIB8gWYXbskcty8 24LiIvj0gmHSBeaYOcRGdmGFV2 Q56gt5T4IMGrCERhCOB2wLX1 mT5rpIvmbpsodWStnTiaonWxbR rfBTsqGWtqT242DXJrfEyuSsIl TJo7V8CpOuv5UYZqjVeoGH0j dSZqASvzQy7amSozzZkbWA3qVV Rbuphhi192DwAuc5msYTIlnTUi IPwePNN7D54ee1P7MDQbIGPr ONR3nKS6pV3znSlvcvgalWKckT fiaqRgjZudKBdiDGfjE467NIYm bIdrYoVztFn6V6XdMoy0GTQz zSrxQB9lbXLbDKugJg3ceHyqlT poZL3bGSXczoalm710QnKeh6ab GKCtbGPoEKanEDX6R58bh9T4 PKLzNWTfOSK0uKF5wL7weOeheu ogbGVmdDsgdmVydGljYWwtYWxp L215XWXptBaiMpPfpDgklgCp GAcnPGq9A9YcJxdoxWQ+PC90YW DjXW96vNOemUDyn0zijTm0XyEi GMArGMU7sOaqWLvdv4OyOTBb H36ueWFfy9D1FZBxnWgmaFDjPy ThiJW2jF7gQGwtzvvgt3pfbhcq Dhmns8qrbc93dA76U76uICqd UAVoIPGnLYXxECBnzOabqk2oaD 9wIi8+DSYjsGR1pPP9tR8mHCDs ZnI5MQwrJ088JaImkODlSubm u3pxh8qmeFu7BdX3PDSrphSnrD woLXN4a2DvYe93M11dNCisKACe KQWsCKFjNOPlvJaswt3biT9v Ii8+ODAppML0zZL8uO3kYyViWb A2UMzxH838ZgXnuIBoTcidZ24c L8AcuYF+XWUkNoo6PYJmxCew HL2ylFTqRXglCk8fKKF9MlTjMm NpWSaaU2OyOFPccdulldvizYL1 JDFiFTIntG88Gd4dfNztGLXc nAUWfS4ikasmo4jllqswBaItAR DaAVr3HAh0DSIfgEukUpNmQIK2 YdS8UWS2oKUfnG7dqHnkqnvf qT2qJ3MaHGZtnnxgKk45eA0sMt NeLwB9XUfeIvw+RzpYB7XwOEHJ JA7nBluvwBH+QPElTTM5nOwl FSrzAYLzpB2dDKQtF9x3OeLrPj Q7KPceI3SpZHArgoxlSt77hZ0k RnUaSzO1ZKusQ0VqkbS4YVGp hTUdKUsqJGK1E85pm7O6XSEgHP OtCNG4xGB5jK2rxFeevkxelVCy vPcrowPyuSgnKOuoBUxaE859 QZUvgZpnNrBwWaY3SdH8McS1X1 ItJpp8QTAxaBqbWY6kaFEoHTfv Xa8ttRmepXmkCD0jRFTeaqrn FUZajA1sDPEgaYAweMycRJ7oYV Mbdjnul316CgUfDUR0QGCtvDWy J8KsfK0fOvWyEHSmPHTeO5Hv eZKwKFpdS663YSzjPaM6BOHwej PzI6YzOQIdbWrvMoM6k5U0Bo38 NyBZZWFyczwvdGQ+PHRkIHN0 vUpzNSknIXGayV6yEVWiM3l8Xv XvGdD7IUpwG7YxEPPmwzceVl57 mK8xDaSqDaN1ZExhQ2CluxB3 QPDywFZxKAyeIGZ7I84sy9B3RW NlOOSwVWH6mOV1fT5dcNslnlbn bGVmdDsgdmVydGljYWwtYWxp N842CXLgaWoePb4DBMC0P9PyPo k0ZDGrcQtdSD3ofTEdFHykOv9v jSzdmNxiVE1gOPEzyvveSAXm dB5zNAUrcVGciWfaTI9mKVBtyo bvl490DaRzKDE9JTUmnQTaK1Gm uA9mInOkQMLjFKKkV0YsrVQo OUitF215ZWqdLkL7BNDeolFnQ2 IpOIWhmLzgAzF2x3L9Xc2WVZU6 wjVwepciS1K2uFK6nHUjhLwk dGQ+ZZ19pv86K1NvWqhdZzz7PG KbEBH8bHG4kO3gRXDnTHswu2L4 iQN3P5ObmvIgmo0iu4uvCUYd BCszU32mdDKoe6D5SUBwhMR9TT WdmPllSgJlkQ26Cil+PGNvbGdy p5YhYcxmt6zcj5aydJi2YqOc LVWdmyHxzJcxUQF4w6MeMn64A4 9sIHdpZHRoPSIzMCUiIHZhbGln vk7vjY5xZp8+XRDgzGB9fEM8 vJ2ySgEsMsS3FRtdI202UmSgqW WnTiziv3xfw8crsUm3QrKcQNZa jwZztSgxLVG8x9PmPg30I3Ms wWovk1JxXsn6fb44fOXsx3P1hK N7G9EaKBBtnewarKEvpDuyJW5z KVBploczWAHkfL8lWUCaH0n5 EmRkPiA9CRyiE8FlyeR9CELpqQ XdSCAhnMDAhF8vwtofp4qtxsxl AmHbPKIlIWy0HFi5SKHuyEuk KuEwWRH3WjO8ADO8bVCuuT3idO laigxhgG7uHcc+EVr7v6zenJLs EO9ltNQ1UV38MV00cNSuq6U2 rDO6U9ZfMELjgtrfdmrfrMU9HO IoSCWzoH53Fa2paUnbMe8aQSIk WVS0CCTlxBPaR1TpcD7vLxLy PSMxQSNmJ2KzjSDgIRrqG461MQ kjIhP8DIUzayCdW3WmXXFsgYpz ZgF9e4A5Zu9JEU58PX28JI12 qNNre8J7eHB2U6CnMHOazoryav lpcUT9KAFaOXJmqJ97Jh7fdCrz Us0zQGNyUJK9MQLddSAjS1Et aA1eMzLcGDGqUNOsO2PhgOAoDM dmL909MQarBaX7IIDfzfInR1Zi IXOahElsUlE8h5D0Qr1UWd02 JV25TJ46pQWae7I3bUP8M0AuQF ZjtasljbxluBH8XOIzRVOurL00 Bj1zkAlpAu5wDLGlAGD3QRLo zCCpK2CusZ1tMiQcMBItEEPhT9 HidAWqMOaeH942XQjxJtT4WGVq jgPsF9HpOPZhxYavHlB3w9L8 Xp0CRFapigr5C6YaNhnjfLS+PC 13LLUaKD43cLCrhPOwj2iyzSx9 KuVjFKZrLYC6vJyiSZhve9Dq ZXI (more content not included)... [facility] Outside Recordson 09-17-2023 Outside Records [id number]#1.00OTGTIF F [facility] XR hip RT min 2V(w/wo pelvis )*on 09-15-2023 XR hip RT min 2V(w/wo pelvis)* [facility] [address] [place] [address] XRay Report Signed Patient: Lyly Quinn MR#: [id number] : 1965 Acct:[id number] Age/Sex: 58 / M ADM Date: 09/15/23 [place] [facility] [place]: Type: [facility] Attending Dr: Charles Claros MD Copies to: [...] Terrence Basurto M.D.09/15/2023 3:16 PM Dictation Location: [place] [address] Transcribed By: [facility] 09/15/23 151 Dictated By: Terrence Basurto II, MD 09/15/231514 Signed By: 09/15/231515 Normal [facility] XR lumbar spine AP/LAT/FLX/E XTon 09-15-2023 XR lumbar spine AP/LAT/FLX/EXT [facility] [address] [place] [address] XRay Report Signed Patient: Lyly Quinn MR#: [id number] : 1965 Acct:[id number] Age/Sex: 58 / M ADM Date: 09/15/23 [place] [facility] [place]: Type[facility] Attending Dr: Charles Claros MD Copies to: [...] Terrence Basurto M.D.09/15/2023 3:19 PM Dictation Location: [place] [address] Transcribed By: [facility] 09/15/23 151 Dictated By: Terrence Basurto II, MD 09/15/231515 Signed By: 09/15/231518 Normal [facility] ED Note - Provideron 024 ED Note - Provider [id number]#1.00OTGTIF F [facility] Lab - Other Lab Resultson Lab - Other Lab Results [id number]#1.00OTGTIF F [facility] Outside Recordson 09-08-2023 Outside Records [id number]#1.00OTGTIFF [facility] Provider Orderson 08-26-2023 Provider Orders [id number]#1.00OTGTIF F [facility] Outside Recordson 08-09-2023 Outside Records [id number]#[facility]on 05-12-19 23 NR MRI L-SPINE WO Patient Name: LYLY QUINN STUDY: MRI L-SPINE WO; 05/12/2022 8:35 am INDICATION: acute right foot drop, previous surgery, had MRI 2 weeks ago with insufficient metal reduction unable to assess junctional levels M96.1: Lumbar postlaminectomy syndrome M21.371: Right foot drop. COMPARISON: Outside hospital MRI L-spine dated 04/30/2022 ACCESSION NUMBER(S): [id number] ORDERING CLINICIAN: BEE BLACKMON TECHNIQUE: Sagittal T1, [...] Alvarado. Electronically signed by: DILMA VERA MD [facility] MRI Lumbar Spine w/oon 04-30 MRI [...] Carlos Hayward on 05/01/2022 0917 Normal [facility] Curator Of Collections Established Visit (Orthopaed ic Surgery)on 04-27-2022 Established [...] is going to do this in the [place] area at [facility], we will have them push the results [...] No Known Drug Allergies Recorded By: Tara Gonzlaez; 01/07/2021 10:40:28 AM Current Meds Medication NameInstruction Fsuxfkyjol-GCPI-Kokpbyff 50-300-40 MG Oral CapsuleTAKE 1 CAPSULE BY [...] Apr 27 2022 10:06AM EST (Author) Normal [facility] CBC AUTO DIFFon 04-14-2022 BASO # 0.0 103/ul Normal 0.0-0.1 [facility] Comment on above: Performed By: #### C BC #### [facility] [address] [place] [address] Dr. Devonte Rivas Basophils/100 WBC (Bld) 0.4 % Normal 0.2-2.0 [facility] Comment on above: Performed By: #### C BC #### [facility] [address] [place] [address] [address] Devonte Rivas EO # 0.1 103/ul Normal 0.0-0.7 [facility] Comment on above: Performed By: #### C BC #### [facility] [address] [place] [address] Dr. Devonte Rivas Eosinophils/100 WBC (Bld) 0.9 % Normal 0.9-7.0 [facility] Comment on above: Performed By: #### C BC #### [facility] [address] [place] [address] Dr. Devonte Rivas Erythrocyte distribution width (RBC) [Ratio] 12.4 % Normal 11.0-15.0 [facility] Comment on above: Performed By: #### C BC #### [facility] [address] [place] [address] Dr. Devonte Rivas Hematocrit (Bld) [Volume fraction] 42.4 % Normal 42.0-54.0 [facility] Comment on above: Performed By: #### C BC #### [facility] [address] [place] [address] Dr. Devonte Rivas Hemoglobin (Bld) [Mass/Vol] 14.8 g/dL Normal 14.0-18.0 [facility] Comment on above: Performed By: #### C BC #### [facility] [address] [place] [address] Dr. Devonte Rivas IG # 0.03 10e3/ul Normal 0.00-0.03 [facility] Comment on above: Performed By: #### C BC #### [facility] [address] [place] [address] Dr. Devonte Rivas IG % 0.6 % Critically high 0.0-0.5 [facility] Comment on above: Performed By: #### C BC #### [facility] [address] [place] [address] Dr. Devonte Rivas LYMPH # 1.7 103/ul Normal 1.2-3.8 [facility] Comment on above: Performed By: #### C BC #### [facility] [address] [place] [address] Dr. Devonte Rivas Lymphocytes/100 WBC (Bld) 31.6 % Normal 20.5-60.0 [facility] Comment on above: Performed By: #### C BC #### [facility] [address] [place] [address] Dr. Devonte Rivas MANUAL DIFF REQ NO Normal [facility] Comment on above: Performed By: #### C BC #### [facility] [address] [place] [address] Dr. Devonte Rivas MCH (RBC) [Entitic mass] 31.3 pg Normal 25.9-34.0 [facility] Comment on above: Performed By: #### C BC #### [facility] [address] [place] [address] Dr. Devonte Rivas MCHC (RBC) [Mass/Vol] 34.9 g/dL Normal 29.9-35.2 [facility] Comment on above: Performed By: #### C BC #### [facility] [address] [place] [address] Dr. Devonte Rivas MCV (RBC) [Entitic vol] 89.6 fL Normal 80.0-94.0 [facility] Comment on above: Performed By: #### C BC #### [facility] [address] [place] [address] Dr. Devonte Rivas MONO # 0.9 103/ul Critically high 0.3-0.8 [facility] Comment on above: Performed By: #### C BC #### [facility] [address] [place] [address] Dr. Devonte Rivas Monocytes/100 WBC (Bld) 15.6 % Critically high 1.7-12.0 [facility] Comment on above: Performed By: #### C BC #### [facility] [address] [place] [address] Dr. Devonte Rivas NEUT # 2.8 103/ul Normal 1.4-6.5 [facility] Comment on above: Performed By: #### C BC #### [facility] [address] [place] [address] Dr. Devonte Rivas Neutrophils/100 WBC (Bld) 50.9 % Normal 43.0-75.0 [facility] Comment on above: Performed By: #### C BC #### [facility] [address] [place] [address] [address] Devonte Rivas Platelet mean volume (Bld) [Entitic vol] 9.4 fL Critically low 9.5-13.5 [facility] Comment on above: Performed By: #### C BC #### [facility] [address] [place] [address] [address] Devonte Rivas PLT 194 103/ul Normal 150-450 [facility] Comment on above: Performed By: #### C BC #### [facility] [address] [place] [address] [address] Devonte Rivas RBC 4.73 106/ul Normal 4.70-6.10 [facility] Comment on above: Performed By: #### C BC #### [facility] [address] [place] [address] Dr. Devonte Rivas WBC 5.4 103/ul Normal 4.0-11.0 [facility] Comment on above: Performed By: #### C BC #### [facility] [address] [place] [address] Dr. Devonte Rivas CTA CHEST WO W [...] DANIEL BENITEZ Date: 2022-04-14 10:29 Normal [facility] Covid-19 PCR (CVDTB)on 03-20 SARS-CoV-2 (COVID-19) RNA LEATHA+probe Ql (Unsp spec) Detected Critically abnormal NOT DETECTED [facility] Comment on above: Result Comment: This test is not yet approved or cleared by the [place] FDA. When there are no FDA-approved or cleared tests available, and other criteria are met, FDA can make tests available under an emergency access mechanism called an Emergency Use Authorization (EUA). The EUA for this test is supported by the [place] of Health and Human Service's declaration that [...] used). Performed By: #### C VDTBH #### [facility] [address] [place] [address] Dr. Devonte Rivas INFLUENZA A AND B AGon 04-14 INFLUANEGH SEE BELOW Normal [facility] Comment on above: Result Comment: Nega tive for Flu A protein angiten. Infection due to Flu A cannot be ruled out. Flu A angiten in the sample may be below the detection limit of the test. Performed By: #### I NFLUAB #### [facility] [address] [place] [address] Dr. Devonte Rivas INFLUBNEG SEE BELOW Normal [facility] Comment on above: Result Comment: Nega tive for Flu B protein antigen. Infection due to Flu B cannot be ruled out. Flu B antigen in the sample may be below the detection limit of the test. Performed By: #### I NFLUAB #### [facility] [address] [place] [address] Dr. Devonte Rivas INFLUENZA A AG Negative Normal NEGATIVE SEE COMMENT [facility] Comment on above: Performed By: #### I NFLUAB #### [facility] [address] [place] [address] Dr. Devonte Rivas INFLUENZA B AG Negative Normal NEGATIVE SEE COMMENT [facility] Comment on above: Performed By: #### I NFLUAB #### [facility] [address] [place] [address] Dr. Devonte Rivas INTERNAL CONTROLS Within Normal Limits Normal Wi thin Normal Limits [facility] Comment on above: Performed By: #### I NFLUAB #### [facility] [address] [place] [address] Dr. Devonte Rivas PROF CHEM 8 (BAS METB)on Anion gap [Moles/Vol] 12.0 mmol/L Normal Th e [facility] Comment on above: Performed By: #### H WINIFREDPN, BMP #### [facility] [address] [place] [address] Dr. Devonte Rivas Calcium [Mass/Vol] 9.2 mg/dL Normal 8.5-10.1 [facility] Comment on above: Performed By: #### H CECELIA, BMP #### [facility] [address] [place] [address] Dr. Devonte Rivas Chloride [Moles/Vol] 100 mmol/L Normal 98-107 [facility] Comment on above: Performed By: #### H WINIFREDPN, BMP #### [facility] [address] [place] [address] Dr. Devonte Rivas CO2 [Moles/Vol] 26.2 mmol/L Normal 21.0-32.0 [facility] Comment on above: Performed By: #### H WINIFREDPN, BMP #### [facility] [address] [place] [address] Dr. Devonte Rivas Creatinine [Mass/Vol] 0.99 mg/dL Normal 0.70-1.30 [facility] Comment on above: Performed By: #### H WINIFREDPN, BMP #### [facility] [address] [place] [address] Dr. Devonte Rivas EGFR-AF INDONESIAN >60 Normal >=60 [facility] Comment on above: Performed By: #### H WINIFREDPN, BMP #### [facility] [address] [place] [address] Dr. Devonte Rivas EGFR-NON AF INDONESIAN >60 Normal >=60 [facility] Comment on above: Performed By: #### H CECELIA, BMP #### [facility] [address] [place] [address] Dr. Devonte Rivas Glucose [Mass/Vol] 163 mg/dL Critically high 74-106 T [facility] Comment on above: Performed By: #### H CECELIA, BMP #### [facility] [address] [place] [address] Dr. Devonte Rivas Potassium [Moles/Vol] 4.2 mmol/L Normal 3.5-5.1 [facility] Comment on above: Performed By: #### H CECELIA, BMP #### [facility] [address] [place] [address] Dr. Devonte Rivas Sodium [Moles/Vol] 134 mmol/L Critically low 136-145 Th [facility] Comment on above: Performed By: #### H CECELIA, BMP #### [facility] [address] [place] [address] Dr. Devonte Rivas Urea nitrogen [Mass/Vol] 11.0 mg/dL Normal 7.0-18.0 [facility] Comment on above: Performed By: #### H CECELIA, BMP #### [facility] [address] [place] [address] Dr. Devonte Rivas Urea nitrogen/Creatinine [Mass ratio] 11.1 mg/mg Normal [facility] Comment on above: Performed By: #### H CECELIA, BMP #### [facility] [address] [place] [address] Dr. Devonte Rivas TROPONIN, HIGH SENSITIVITYon 04-14-2022 HSTROP <4.0 Normal 4.0-76.1 [facility] Comment on above: Result Comment: CUT- OFF POINTS HAVE BEEN ESTABLISHED BASED ON THE FOURTH UNIVERSAL DEFINITIONS OF MYOCARDIAL INFARCTION. THE UPPER REFERENCE LIMIT (URL) OF TROPONIN, DEFINED THE 99TH PERCENTILE OF cTnI DISTRIBUTION IN A REFERENCE POPULATION, HAS BEEN CONFIRMED THE DECISION THRESHOLD FOR UT DIAGNOSIS. Performed By: #### H CECELIA, BMP #### [facility] [address] [place], [place] [id number] Dr. Devonte Rivas XR CHEST 1 Von 04-14-2022 XR CHEST 1 V EXAM: Chest x-ray HISTORY: . SHORTNESS OF BREATH . COMPARISON: 10/26/2010 TECHNIQUE: Frontal and lateral chest. FINDINGS: Heart and vascularity are unremarkable. Lungs are free of focal infiltrates. EKG leads overlie the chest. Impression: No acute heart or lung disease identified. Electronically authenticated by: DANIEL MALDONADO Date: 2022-04-14 09:12 Normal [facility] Established Visit (Orthopaed ic Surgery)on 09-29-2021 Established [...] 01/07/2021 10:40:28 AM Current Meds Medication NameInstruction Zgxbfqwvtj-RADM-Bipeubdg 50-300-40 MG Oral CapsuleTAKE 1 CAPSULE BY [...] Sep 29 2021 12:05PM EST (Author) Normal [facility] Office Visiton 09-16-2021 Follow-up visit Diagnoses/Problems Class [...] for weight loss may be short or long term care administrator, but that if weight loss is not [...] of coffee (black) V8 juice L - [place] (low calorie tortilla) turkey with salad D [...] month Social Hx: Lives with: Spouse Employment: makes/[employer] Sleep patterns: 8hrs YANNI on CPAP Alcohol: [...] Meds Med (more content not included)... Normal [facility] MRI Lumbar Spine w/oon 09-05 MRI Lumbar Spine w/o HISTORY: Low back p ain with radiculopathy. COMPARISON:??CT abdomen and pelvis 08/05/2021 [...] as detailed. Report reported and signed by Chnadler Tomlinson on 09/08/2021 1127 Normal [facility] CT Abdomen/Pelvis w/ Contras ton 08-05-2021 CT [...] Chandler Tomlinson on 08/06/2021 0906 Normal [facility] Curator Of Collections Established Visit (Orthopaed ic Surgery)on 07-28-2021 Established Visit (Orthopaedic Surgery) Diagnoses/Problems Assessed Lumbar postlaminectomy syndrome (722.83) (M96.1) Orders Lumbar postlaminectomy syndrome MRI L Spine without Contrast; Status:Hold For - Scheduling,Retrospective Authorization; Requested for:[id number]; Radiologist to Determine Optimal Study : Y Does the patient have a Cochlear Implant, Pacemaker, Defibrilator, Pacing Wire, Brain Aneurysm Clip, Implanted Nerve or Bone Graft Simulator, Implanted Breast Tissue Toll Line Mechanic, Glucose Monitor, or Neulasta Device? : No [...] 01/07/2021 10:40:28 AM Current Meds Medication NameInstruction Kycdttxdsk-OEQP-Awaqahzm 50-300-40 MG Oral CapsuleTAKE 1 CAPSULE BY [...] Jul 28 2021 11:54AM EST (Author) Normal [facility] Office Visiton 06-18-2021 Follow-up visit Diagnoses/Problems Class [...] - continue to follow reduced kcal diet, 6584-1572 focus on protein at each meal, unprocessed [...] for weight loss may be short or shelter, but that if weight loss is not [...] carbonated added sugar beverage. He met with LUCILA and discussed using plate method of meal planning. He has found his appetite has been reduced since adding in topiramate, no side effects He has switched from regular soda to diet soda but only drinking the diet soda if he gets a headache Diet Recall: B - coffee and V8 L - yogurt, granola (scottish yogurt, 1/4 cup granola), cream of corn 1 cup Snack - pop corner 100 calorie bag D - veggie burger with estonian cheese AND onion (2 burgers) low calorie [...] Social Hx: Lives with: Spouse 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 Sleep patterns: 8hrs YANNI on CPAP Alcohol: [...] (Z78.9) Allerg (more content not included)... Normal [facility] Nutrition-[place] 05-06-2021 Nutrition-Adult Medical Diagnosis Assessed Class [...] fatty acids and low saturated fat content. [place], mackerel, albacore tuna, sardines, mills and franco [...] occasionally snack (more content not included)... Normal [facility] No Panel Informationon 04-23 3638 1 [facility] [place] [facility] Work Phone: [phone] [facility] [place] [facility] Work Phone: [phone] [facility] [place] [facility] Work Phone: [phone] [facility] [place] [facility] Work Phone: Comment on above: Age: 56Height: 73 in Sex: MLevel of Activity: Sedentary (little or no exercise)Weight: 292 lb 2138 1 [facility] [place] [facility] Work Phone: [phone] [facility] [place] [facility] Work Phone: Tobacco Screening.on 022 Fall risk assessment a) No falls within the last year [facility] [place] [facility] Work Phone: Tobacco use status CPHS b) No [facility] [place] [facility] Work Phone: Radiologyon 03-10-2021 XR Lumbar spine AP and Lateral Please click on the link to view the study images Normal [facility] [facility] Work Phone: SPINE, LUMBOSACRAL; 2 OR 3 V IEWSon 03-10-2021 SPINE, LUMBOSACRAL; 2 OR 3 VIEWS Patient Name: LYLY QUINN STUDY: SPINE, LUMBOSACRAL; 2 OR 3 VIEWS; ; 03/10/2021 11:16 am INDICATION: pain M96.1: Lumbar postlaminectomy syndrome M48.062: Spinal stenosis of lumbar region with neurogenic claudication. COMPARISON: 12/09/2020. ACCESSION NUMBER(S): [id number] ORDERING CLINICIAN: BEE BLACKMON FINDINGS: Lumbosacral spine [...] Electronically signed by: JANET VILLARREAL MD Normal [facility] Radiologyon 12-09-2020 XR Lumbar spine AP and Lateral Please click on the link to view the study images Normal [facility] Work Phone: SPINE, LUMBOSACRAL; 2 OR 3 V IEWSon 12-09-2020 SPINE, LUMBOSACRAL; 2 OR 3 VIEWS Patient Name: LYLY QUINN STUDY: Lumbar Spine, 2 views. INDICATION: low back pain. COMPARISON: Outside hospital lumbar spine radiographs 08/29/2020 ACCESSION NUMBER(S): [id number] ORDERING CLINICIAN: BEE BLACKMON FINDINGS: Redemonstration of [...] Electronically signed by: WILLIAMS GUZMAN MD Normal [facility] BASIC METABOLIC PANELon 11-17 ANION GAP Canceled Normal [facility] Comment on above: Order Comment: TEST BASIC METABOLIC PANEL WAS CANCELLED, 12/01/2020 18:56 NO SPECIMEN RECEIVED IN LAB. Performed By: #### B MP #### [facility] [address] [place] [address] BICARBONATE Canceled Normal [facility] Comment on above: Order Comment: TEST BASIC METABOLIC PANEL WAS CANCELLED, 12/01/2020 18:56 NO SPECIMEN RECEIVED IN LAB. Performed By: #### B MP #### [facility] [address] [place] [address] CALCIUM Canceled Normal [facility] Comment on above: Order Comment: TEST BASIC METABOLIC PANEL WAS CANCELLED, 12/01/2020 18:56 NO SPECIMEN RECEIVED IN LAB. Performed By: #### B MP #### [facility] [address] [place] [address] CHLORIDE Canceled Normal [facility] Comment on above: Order Comment: TEST BASIC METABOLIC PANEL WAS CANCELLED, 12/01/2020 18:56 NO SPECIMEN RECEIVED IN LAB. Performed By: #### B MP #### [facility] [address] [place] [address] CREATININE Canceled Normal [facility] Comment on above: Order Comment: TEST BASIC METABOLIC PANEL WAS CANCELLED, 12/01/2020 18:56 NO SPECIMEN RECEIVED IN LAB. Performed By: #### B MP #### [facility] [address] [place] [address] GFR- AM. Canceled Normal [facility] Comment on above: Order Comment: TEST BASIC METABOLIC PANEL WAS CANCELLED, 12/01/2020 18:56 NO SPECIMEN RECEIVED IN LAB. Result Comment: CALC ULATIONS OF ESTIMATED GFR ARE PERFORMED USING THE MDRD STUDY EQUATION FOR THE IDMS-TRACEABLE CREATININE METHODS. CLIN CHEM 2007;53:766-72 Performed By: #### B MP #### [facility] [address] [place] [address] GFR-NON AM. Canceled Normal [facility] Comment on above: Order Comment: TEST BASIC METABOLIC PANEL WAS CANCELLED, 12/01/2020 18:56 NO SPECIMEN RECEIVED IN LAB. Performed By: #### B MP #### [facility] [address] [place] [address] GLUCOSE Canceled Normal [facility] Comment on above: Order Comment: TEST BASIC METABOLIC PANEL WAS CANCELLED, 12/01/2020 18:56 NO SPECIMEN RECEIVED IN LAB. Performed By: #### B MP #### [facility] [address] [place] [address] POTASSIUM Canceled Normal [facility] Comment on above: Order Comment: TEST BASIC METABOLIC PANEL WAS CANCELLED, 12/01/2020 18:56 NO SPECIMEN RECEIVED IN LAB. Performed By: #### B MP #### [facility] [address] [place] [address] SODIUM Canceled Normal [facility] Comment on above: Order Comment: TEST BASIC METABOLIC PANEL WAS CANCELLED, 12/01/2020 18:56 NO SPECIMEN RECEIVED IN LAB. Performed By: #### B MP #### [facility] [address] [place] [address] UREA NITROGEN Canceled Normal [facility] Comment on above: Order Comment: TEST BASIC METABOLIC PANEL WAS CANCELLED, 12/01/2020 18:56 NO SPECIMEN RECEIVED IN LAB. Performed By: #### B MP #### [facility] [address] [place] [address] CBCon 12-01-2020 HCT Canceled Normal [facility] Comment on above: Order Comment: TEST CBC WAS CANCELLED, 12/01/2020 18:56 NO SPECIMEN RECEIVED IN LAB. Performed By: #### C BC #### [facility] [address] [place] [address] HGB Canceled Normal [facility] Comment on above: Order Comment: TEST CBC WAS CANCELLED, 12/01/2020 18:56 NO SPECIMEN RECEIVED IN LAB. Performed By: #### C BC #### [facility] [id number] [place] [address] MCHC Canceled Normal [facility] Comment on above: Order Comment: TEST CBC WAS CANCELLED, 12/01/2020 18:56 NO SPECIMEN RECEIVED IN LAB. Performed By: #### C BC #### [facility] [address] [place] [address] MCV Canceled Normal [facility] Comment on above: Order Comment: TEST CBC WAS CANCELLED, 12/01/2020 18:56 NO SPECIMEN RECEIVED IN LAB. Performed By: #### C BC #### [facility] [address] [place] [address] NUCLEATED RBC Canceled Normal [facility] Comment on above: Order Comment: TEST CBC WAS CANCELLED, 12/01/2020 18:56 NO SPECIMEN RECEIVED IN LAB. Performed By: #### C BC #### [facility] [address] [place] [address] PLT Canceled Normal [facility] Comment on above: Order Comment: TEST CBC WAS CANCELLED, 12/01/2020 18:56 NO SPECIMEN RECEIVED IN LAB. Performed By: #### C BC #### [facility] [address] [place] [address] RBC Canceled Normal [facility] Comment on above: Order Comment: TEST CBC WAS CANCELLED, 12/01/2020 18:56 NO SPECIMEN RECEIVED IN LAB. Performed By: #### C BC #### [facility] [address] [place] [address] RDW-CV Canceled Normal [facility] Comment on above: Order Comment: TEST CBC WAS CANCELLED, 12/01/2020 18:56 NO SPECIMEN RECEIVED IN LAB. Performed By: #### C BC #### [facility] [address] [place] [address] WBC Canceled Normal [facility] Comment on above: Order Comment: TEST CBC WAS CANCELLED, 12/01/2020 18:56 NO SPECIMEN RECEIVED IN LAB. Performed By: #### C BC #### [facility] [address] [place] [address] BASIC METABOLIC PANELon 11-17 ANION GAP Canceled Normal [facility] Comment on above: Order Comment: TEST BASIC METABOLIC PANEL WAS CANCELLED, 11/29/2020 10:53 NO SPECIMENRECEIVED IN LAB. Performed By: #### B MP ####[id number] [place] [address] BICARBONATE Canceled Normal [facility] Comment on above: Order Comment: TEST BASIC METABOLIC PANEL WAS CANCELLED, 11/29/2020 10:53 NO SPECIMENRECEIVED IN LAB. Performed By: #### B MP ####[id number] [place] [address] CALCIUM Canceled Normal [facility] Comment on above: Order Comment: TEST BASIC METABOLIC PANEL WAS CANCELLED, 11/29/2020 10:53 NO SPECIMENRECEIVED IN LAB. Performed By: #### B MP ####[id number] [place] [address] CHLORIDE Canceled Normal [facility] Comment on above: Order Comment: TEST BASIC METABOLIC PANEL WAS CANCELLED, 11/29/2020 10:53 NO SPECIMENRECEIVED IN LAB. Performed By: #### B MP ####[id number] [place] [address] CREATININE Canceled Normal [facility] Comment on above: Order Comment: TEST BASIC METABOLIC PANEL WAS CANCELLED, 11/29/2020 10:53 NO SPECIMENRECEIVED IN LAB. Performed By: #### B MP ####[id number] [place] [address] GFR- AM. Canceled Normal [facility] Comment on above: Order Comment: TEST BASIC METABOLIC PANEL WAS CANCELLED, 11/29/2020 10:53 NO SPECIMENRECEIVED IN LAB. Result Comment: CALC ULATIONS OF ESTIMATED GFR ARE PERFORMED USING THE MDRD STUDY EQUATION FOR THE IDMS-TRACEABLE CREATININE METHODS. CLIN CHEM 2007;53:766-72 Performed By: #### B MP ####[id number] [place] [address] GFR-NON AM. Canceled Normal [facility] Comment on above: Order Comment: TEST BASIC METABOLIC PANEL WAS CANCELLED, 11/29/2020 10:53 NO SPECIMENRECEIVED IN LAB. Performed By: #### B MP ####[id number] [place] [address] GLUCOSE Canceled Normal [facility] Comment on above: Order Comment: TEST BASIC METABOLIC PANEL WAS CANCELLED, 11/29/2020 10:53 NO SPECIMENRECEIVED IN LAB. Performed By: #### B MP ####[id number] [place] [address] POTASSIUM Canceled Normal [facility] Comment on above: Order Comment: TEST BASIC METABOLIC PANEL WAS CANCELLED, 11/29/2020 10:53 NO SPECIMENRECEIVED IN LAB. Performed By: #### B MP ####[id number] [place] [address] SODIUM Canceled Normal [facility] Comment on above: Order Comment: TEST BASIC METABOLIC PANEL WAS CANCELLED, 11/29/2020 10:53 NO SPECIMENRECEIVED IN LAB. Performed By: #### B MP ####[id number] [place] [address] UREA NITROGEN Canceled Normal [facility] Comment on above: Order Comment: TEST BASIC METABOLIC PANEL WAS CANCELLED, 11/29/2020 10:53 NO SPECIMENRECEIVED IN LAB. Performed By: #### B MP ####[id number] [place] [address] CBCon 11-29-2020 HCT Canceled Normal [facility] Comment on above: Order Comment: TEST CBC WAS CANCELLED, 11/29/2020 10:53 NO SPECIMEN RECEIVED IN LAB. Performed By: #### C BC ####[id number] [place] [address] HGB Canceled Normal [facility] Comment on above: Order Comment: TEST CBC WAS CANCELLED, 11/29/2020 10:53 NO SPECIMEN RECEIVED IN LAB. Performed By: #### C BC ####[id number] [place] [address] MCHC Canceled Normal [facility] Comment on above: Order Comment: TEST CBC WAS CANCELLED, 11/29/2020 10:53 NO SPECIMEN RECEIVED IN LAB. Performed By: #### C BC ####[id number] [place] [address] MCV Canceled Normal [facility] Comment on above: Order Comment: TEST CBC WAS CANCELLED, 11/29/2020 10:53 NO SPECIMEN RECEIVED IN LAB. Performed By: #### C BC ####[id number] [place] [address] NUCLEATED RBC Canceled Normal [facility] Comment on above: Order Comment: TEST CBC WAS CANCELLED, 11/29/2020 10:53 NO SPECIMEN RECEIVED IN LAB. Performed By: #### C BC ####[id number] [place] [address] PLT Canceled Normal [facility] Comment on above: Order Comment: TEST CBC WAS CANCELLED, 11/29/2020 10:53 NO SPECIMEN RECEIVED IN LAB. Performed By: #### C BC ####[id number] [place] [address] RBC Canceled Normal [facility] Comment on above: Order Comment: TEST CBC WAS CANCELLED, 11/29/2020 10:53 NO SPECIMEN RECEIVED IN LAB. Performed By: #### C BC ####[id number] [place] [address] RDW-CV Canceled Normal [facility] Comment on above: Order Comment: TEST CBC WAS CANCELLED, 11/29/2020 10:53 NO SPECIMEN RECEIVED IN LAB. Performed By: #### C BC ####[id number] [place] [address] WBC Canceled Normal [facility] Comment on above: Order Comment: TEST CBC WAS CANCELLED, 11/29/2020 10:53 NO SPECIMEN RECEIVED IN LAB. Performed By: #### C BC ####[id number] [place] [address] BASIC METABOLIC PANELon 11-17 Anion gap [Moles/Vol] 15 mmol/L Normal 10 - 20 [facility] Comment on above: Performed By: #### B MP #### [facility] [address] [place] [address] Calcium [Mass/Vol] 9.7 mg/dL Normal 8.6 - 10.6 [facility] Comment on above: Performed By: #### B MP #### [facility] [address] [place] [address] Chloride [Moles/Vol] 99 mmol/L Normal 98 - 107 [facility] Comment on above: Performed By: #### B MP #### [facility] [address] [place] [address] Creatinine [Mass/Vol] 0.81 mg/dL Normal 0.50 - 1.30 [facility] Comment on above: Performed By: #### B MP #### [facility] [address] [place] [address] GFR- AM. >60 Normal >60 [facility] Comment on above: Result Comment: CALC ULATIONS OF ESTIMATED GFR ARE PERFORMED USING THE MDRD STUDY EQUATION FOR THE IDMS-TRACEABLE CREATININE METHODS. CLIN CHEM 2007;53:766-72 Performed By: #### B MP #### [facility] [address] [place] [address] GFR-NON AM. >60 Normal >60 [facility] Comment on above: Performed By: #### B MP #### [facility] [address] [place] [address] Glucose [Mass/Vol] 188 mg/dL High 74 - 99 [facility] Comment on above: Performed By: #### B MP #### [facility] [address] [place] [address] HCO3 (Bld) [Moles/Vol] 26 mmol/L Normal 21 - 32 [facility] Comment on above: Performed By: #### B MP #### [facility] [address] [place] [address] Potassium [Moles/Vol] 5.1 mmol/L Normal 3.5 - 5.3 [facility] Comment on above: Performed By: #### B MP #### [facility] [address] [place] [address] Sodium [Moles/Vol] 135 mmol/L Low 136 - 145 [facility] Comment on above: Performed By: #### B MP #### [facility] [address] [place] [address] Urea nitrogen [Mass/Vol] 16 mg/dL Normal 6 - 23 [facility] Comment on above: Performed By: #### B MP #### [facility] [address] [place] [address] CBCon 11-27-2020 Erythrocyte distribution width (RBC) [Ratio] 12.8 % Normal 11.5 - 14.5 [facility] Comment on above: Performed By: #### C BC #### [facility] [address] [place] [address] Hematocrit (Bld) [Volume fraction] 43.9 % Normal 41.0 - 52.0 [facility] Comment on above: Performed By: #### C BC #### [facility] [address] [place] [address] Hemoglobin (Bld) [Mass/Vol] 14.2 g/dL Normal 13.5 - 17.5 [facility] Comment on above: Performed By: #### C BC #### [facility] [address] [place] [address] MCHC (RBC) [Mass/Vol] 32.3 g/dL Normal 32.0 - 36.0 [facility] Comment on above: Performed By: #### C BC #### [facility] [address] [place] [address] MCV (RBC) [Entitic vol] 94 fL Normal 80 - 100 [facility] Comment on above: Performed By: #### C BC #### [facility] [address] [place] [address] NUCLEATED RBC 0.0 /100 WBC Normal 0.0-0.0 [facility] Comment on above: Performed By: #### C BC #### [facility] [address] [place] [address] Platelets (Bld) [#/Vol] 237 10*3/uL Normal 150 - 450 [facility] Comment on above: Performed By: #### C BC #### [facility] [address] [place] [address] RBC 4.65 x10E12/L Normal 4.50 - 5.90 [facility] Comment on above: Performed By: #### C BC #### [facility] [address] [place] [address] WBC (Bld) [#/Vol] 8.5 10*3/uL Normal 4.4 - 11.3 [facility] Comment on above: Performed By: #### C BC #### [facility] [address] [place] [address] Daily Progress Note-Orthopae dicson 11-27-2020 Daily Progress Note-Orthopaedics Service: Orthopaedics Subjective [...] advance as tolerated. Bowel regimen - dc ELECTROCARDIOGRAPHIC TECHNICIAN, POPM starting POD1. Scheduled tylenol. Robaxin. Continue [...] Kevin Marshall MD, PGY-2 Orthopedic Spine Team [id number] Available on [facility] Team Kevin Marshall, PGY-2 ([id number]) Amrit Long PGY-3 ([id number]) Lambert Suarez PGY-4 ([id number]) Please call configuration management administrator resident ([phone]) nights after 6pm and weekends Attestation: Note Completion: I am a: Resident/Fellow Attending AttestationI reviewed the resident/fellows documentation and discussed the patient with the resident/fellow. I agree with the resident/fellows medical decision making as documented in the note. Electronic Signatures: Bee Blackmon) (Signed 11-Dec-2020 15:25) Authored: Note Completion Co-Signer: Service, Subjective Data, Objective Data, Assessment and Plan, Note Completion Kvein Marshall (Resident)) (Signed 27-Nov-2020 06:49) Authored: Service, Subjective Data, Objective Data, Assessment and Plan, Note Completion Last Updated: 11-Dec-2020 15:25 by Bee Blackmon) Normal [facility] Laboratory - Chemistry and C hemistry - challengeon 11-27-2020 Anion gap [Moles/Vol] 15 mmol/L 10 - 20 [facility]- Orthopae dics-[facility] Work Phone: Calcium [Mass/Vol] 9.7 mg/dL 8.6 - 10.6 [facility]-Ort hopae dics-[place] Work Phone: Chloride [Moles/Vol] 99 mmol/L 98 - 107 [facility] rthopae dics-[place] Work Phone: [phone] CO2 [Moles/Vol] 26 mmol/L 21 - 32 [facility]op ae d[facility] Work Phone: Creatinine [Mass/Vol] 0.81 mg/dL See Below [facility]- Orthopae d[facility] Work Phone: Comment on above: Reference Range: 0.5 0 - 1.30 Glucose [Mass/Vol] 188 mg/dL above high threshold 74 - 99 [facility] Work Phone: Potassium [Moles/Vol] 5.1 mmol/L 3.5 - 5.3 [facility]- [facility]opae d[facility] Work Phone: Sodium [Moles/Vol] 135 mmol/L below low threshold 136 - 145 [facility]opae d[facility] Work Phone: [phone] Urea nitrogen [Mass/Vol] 16 mg/dL 6 - 23 [facility] Work Phone: Laboratory - Hematology and Cell countson 11-27-2020 Erythrocyte distribution width (RBC) [Ratio] 12.8 % See Below [facility] Work Phone: Comment on above: Reference Range: 11. 5 - 14.5 Hematocrit (Bld) [Volume fraction] 43.9 % See Below [facility]opae [facility] Work Phone: Comment on above: Reference Range: 41. 0 - 52.0 Hemoglobin (Bld) [Mass/Vol] 14.2 g/dL See Below [facility]ae [facility] Work Phone: Comment on above: Reference Range: 13. 5 - 17.5 MCHC (RBC) [Mass/Vol] 32.3 g/dL See Below MG- Orthopae dics-[place] Work Phone: Comment on above: Reference Range: 32. 0 - 36.0 MCV (RBC) [Entitic vol] 94 fL 80 - 100 [facility] Work Phone: Platelets (Bld) [#/Vol] 237 10*3/uL 150 - 450 [facility]opae [facility] Work Phone: RBC (Bld) [#/Vol] 4.65 {x10E12/L} See Below [facility] -Orthopae dics-[facility] Work Phone: Comment on above: Reference Range: 4.5 0 - 5.90 WBC (Bld) [#/Vol] 8.5 10*3/uL 4.4 - 11.3 [facility]-Ort hopae dics-[facility]a kendal Work Phone: No Panel Informationon 11-27 >60 >60 [facility]-Orthopae dics-[facility]a kendal Work Phone: Comment on above: CALCULATIONS OF LUCHO MATED GFR ARE PERFORMED USING THE MDRD STUDY EQUATION FOR THE IDMS-TRACEABLE CREATININE METHODS. CLIN CHEM 2007;53:766-72 0.0 {/100_WBC} 0.0-0.0 [facility]-Orthopa e dics-[place] Work Phone: Daily Progress Note-Balta gutierresson 11-26-2020 Daily Progress Note-Orthopaedics Service: Orthopaedics Subjective [...] mood and behavior Medication: Medications: Continuous Medications ------ 1. Lactated Ringers Infusion: 1000 mL IntraVenous Scheduled Medications ------ 1. DULoxetine: 60 mg Oral Daily 2. Pantoprazole: 40 mg Oral Daily PRN Medications ------ 1. Albuterol 2.5 mg/ 3 mL Nebulizer Soln: 3 mL Inhalation Once 2. HYDROmorphone Injectable: 0.2 mg IntraVenous Push Every 5 Minutes 3. HYDROmorphone Injectable: 0.4 mg IntraVenous Push Every 5 Minutes 4. Ondansetron Injectable: 4 mg IntraVenous Push Once 5. Promethazine IV Piggy Back: 6.25 mg IntraVenous Piggyback Once Currently Suspended Medications ------ 1. Lisinopril: 20 mg Oral Daily Assessment and Plan: Code Status: Code StatusFull Code Assessment: 55M POD0 s/p L3-[address] Blackmon on 11/26 Plan: - Clear Liquid diet, advance as tolerated. Bowel regimen - ELECTROCARDIOGRAPHIC TECHNICIAN, will attempt to wean POD#1. Scheduled tylenol. [...] Lambert Suarez MD Orthopedic Surgery PGY-4 Pager: [phone] Please page consult resident ([phone]) from 6pm-8am and on weekends. Attestation: Note [...] the note. I personally evaluated the patient [id number] Electronic Signatures: Bee Blackmon) (Signed 11-Dec-2020 15:23) Authored: Note Completion Co-Signer: Service, Subjective Data, Objective Data, Assessment and Plan, Note Completion Lambert Suarez (Resident)) (Signed 26-Nov-2020 14:32) Authored: Service, Subjective Data, Objective Data, Assessment and Plan, Note Completion Last Updated: 11-Dec-2020 15:23 by Bee Blackmon) Normal [facility] Discharge [id number] Discharge Profile2 Discharge Orders: Significant Events: [...] Spine Reason for ReferralPostoperative Follow-Up Appointment Scheduled Date/[id number] 11:15 [id number] [facility] [address], Phone NumberOffice: ([employer], Sec.) - [phone] CommentsPlease Call Tara Gonzalez RN at [phone] For Any Post-Op Questions Electronic Signatures: Tara Gonzalez (RN) (Signed 26-Nov-2020 13:51) Authored: Discharge Orders, Appointments, Gold Form - Oil Paint Shader Summary Bee Blackmon) (Signed 10-Dec-2020 17:40) Co-Signer: Discharge Orders, Hospital Course (Home Care/Gold Form), Provider FINAL REVIEW of Orders, Appointments, Gold Form - Oil Paint Shader Summary Lambert Suarez (Resident)) (Signed 26-Nov-2020 14:34) Entered: Hospital Course (Home Care/Gold Form), Provider FINAL REVIEW of Orders Authored: Discharge Orders, Hospital Course (Home Care/Gold Form), Provider FINAL REVIEW of Orders, Appointments, Gold Form - Oil Paint Shader Summary Last Updated: 10-Dec-2020 17:40 by Bee Blackmon) Normal [facility] GLUCOSE-POCLuciano 11-26-2020 Glucose [Mass/Vol] 186 mg/dL High 74 - 99 [facility] Comment on above: Performed By: #### G BABS #### [facility] [address] [place] [address] Laboratory - Chemistry and C hemistry - challengeon 11-26-2020 Glucose [Mass/Vol] 186 mg/dL above high threshold 74 - 99 [facility]ae [facility] Work Phone: No Panel Informationon 11-26 Please click on the link to view the study images Normal [facility]opae [facility] Work Phone: Operative Reports - [facility] [place] [address] Patient Name: RYAN. Taylor QUINN : 1965 Date of Service: 11/26/2020 Patient Location: [place] [address] Patient Type: I Surgeon: Bee Blackmon MD [...] [employer] Decade plate. SURGEON: Bee Blackmon MD BLENDING TANK TENDER HELPER(S): Lambert Suarez MD ANESTHESIA: General. CLINICAL NOTE [...] confirm retractor (more content not included)... Normal [facility] Order Reconciliationon 11-26 Order Reconciliation [...] days, th (more content not included)... Normal [facility] Order Reconciliation Page 1 Admission Reconciliation Document Reconciliation Type: Admission from OR requested on behalf of Lambert Suarez (Resident) done by Lambert Suarez ( (Resident)) Admission from OR - Reconciliation: 26-Nov-2020 14:21 by: Lambert Suarez (Resident)) Home MedicationsEnteredLast Dose TakenReconciled with current Order Reconciliation Comment/ Additional Information DULoxetine 60 mg oral delayed release capsule 1 cap(s) orally once a day AM DULoxetine Delayed Release Capsule (CYMBALTA)DOSE = 60 mg Oral DailyDULoxetine 60 mg oral delayed release capsule continued as the inpatient order DULoxetine fenofibrate 48 mg oral tablet 1 tab(s) orally once a [id number]-Nov-2020 AM Reviewed and Held lisinopril 20 mg oral tablet 1 tab(s) orally once a [id number] AM Lisinopril Tablet (PRINIVIL, ZESTRIL)DOSE = 20 mg Oral Dailylisinopril 20 mg oral tablet continued as the inpatient order Lisinopril NexIUM 24HR 20 mg oral delayed release tablet 1 tab(s) orally once a day (in the morning)2020 AM Pantoprazole Enteric Coated Tablet (PROTONIX)DOSE = 40 mg Oral DailyNotes from Pharmacy: Substitution for Esomeprazole 40 mg Oral Capsule DailyNexIUM 24HR 20 mg oral delayed release tablet continued as the inpatient order Pantoprazole Xarelto 20 mg oral tablet 1 tab(s) orally once a day (in the evening) Reviewed and Held Additional Current Orders Albuterol [...] 15 minute(s)Clinician Notes: Charmaine-operative order ONLY Normal [facility] Patient Profile - Preop v2on 11-26-2020 Patient Profile - Preop v2 Profile: Initial Info: How to be AddressedRyan Spoken Language PreferredEnglish Stated Reason for Admissionl3-4 cage Primary Contact Name and NumberRenee, Patient Belongingssee preop checklist Medications Brought to Hospitalno General Health: Weight in kg129.7 kilogram(s) Weight in oyz811.9 pound(s) Weight Methodactual (measured) Scale Typestanding Height in feet6 feet Height in inches1 inch(es) Height in cm185.4 centimeter(s) Height Methodstated BMI (kg/m2)37.732 square meter Patient or Family Member Reaction to Anesthesiano previous reaction Health Mgmt: Symptoms/Conditions Managed at Homecardiovascular Cardiovascular Symptoms/Conditionshyperte nsion Barriers to Managing Healthnone Relationship/Environ: Lives Withspouse [...] Learning Preferencesindividual instruction Cultural Considerationsnone Developmental Considerationsnone Yazidism Considerationsnone Other learner availableno [place] RiskPatient location auto qualifies him/her for HIGH RISK. Are there any cultural, spiritual, christianity practices/values/needs that are important for us to [...] 26-Nov-2020 12:05 by Pat Padilla (BENI) Normal [facility] Vital Signs Date Time Vital Sign Value Performing Clinician Facility 05-15-2024 17:25-0500 Body temperature 98.2 [degF] Kimi Weiss DO Work Phone: [facility] 05-15-2024 17:25-0500 Diastolic blood pressure 93 mm[Hg] Kimi Weiss DO Work Phone: [facility] 05-15-2024 17:25-0500 Heart rate 98 /min Kimi Weiss DO Work Phone: [facility] 05-15-2024 17:25-0500 Respiratory rate 22 /min Kimi Weiss DO Work Phone: [facility] 05-15-2024 17:25-0500 SaO2% (BldA) [Mass fraction] 100 % Kimi Weiss DO Work Phone: [facility] 05-15-2024 17:25-0500 Systolic blood pressure 153 mm[Hg] Kimi Weiss DO Work Phone: [facility] 05-15-2024 15:51-0500 Body height 182.88 cm Kimi Weiss DO Work Phone: [facility] 05-15-2024 15:51-0500 Body weight 120 kg Kimi Weiss DO Work Phone: [facility] 04-13-2024 14:18-0500 Diastolic blood pressure 75 mm[Hg] Kimi Weiss DO Work Phone: [facility] 04-13-2024 14:18-0500 Heart rate 94 /min Kimi Weiss DO Work Phone: [facility] 04-13-2024 14:18-0500 Respiratory rate 16 /min Kimi Weiss DO Work Phone: [facility] 04-13-2024 14:18-0500 SaO2% (BldA) [Mass fraction] 98 % Kimi Weiss DO Work Phone: [facility] 04-13-2024 14:18-0500 Systolic blood pressure 139 mm[Hg] Kimi Weiss DO Work Phone: [facility] 04-13-2024 12:18-0500 Body temperature 97.6 [degF] Kimi Weiss DO Work Phone: [facility] 04-13-2024 06:11-0500 Body weight 119.9 kg Kimi Weiss DO Work Phone: [facility] 04-10-2024 17:20-0500 Body height 182.88 cm Kimi Weiss DO Work Phone: [facility] 03-31-2024 10:46-0500 Body height 185.42 cm Kimi Weiss DO Work Phone: [facility] 03-31-2024 10:46-0500 Body mass index (BMI) [Ratio] 34.4 kg/m2 Kimi Weiss DO Work Phone: [facility] 03-31-2024 10:46-0500 Body temperature 97.7 [degF] Kimi Weiss DO Work Phone: [facility] 03-31-2024 10:46-0500 Body weight 118.38 kg Kimi Weiss DO Work Phone: [facility] 03-31-2024 10:46-0500 Diastolic blood pressure 88 mm[Hg] Kimi Weiss DO Work Phone: [facility] 03-31-2024 10:46-0500 Heart rate 118 /min Kimi Weiss DO Work Phone: [facility] 03-31-2024 10:46-0500 Respiratory rate 18 /min Kimi Weiss DO Work Phone: [facility] 03-31-2024 10:46-0500 SaO2% (BldA) [Mass fraction] 96 % Kimi Weiss DO Work Phone: [facility] 03-31-2024 10:46-0500 Systolic blood pressure 122 mm[Hg] Kimi Weiss DO Work Phone: [facility] 03-27-2024 09:46-0500 Body mass index (BMI) [Ratio] 34.72 kg/m2 Karon Rodriguez NP Work Phone: [facility] 03-27-2024 09:46-0500 Body weight 116.12 kg Karon Rodriguez NP Work Phone: [facility] 03-27-2024 09:46-0500 Diastolic blood pressure 96 mm[Hg] Karonyeni Rodriguez COUNSELOR MARRIAGE AND FAMILY Work Phone: [place] [facility] [facility] 03-27-2024 09:46-0500 Heart rate 82 /min Karonyeni Rodriguez COUNSELOR [employer] Work Phone: [facility] 03-27-2024 09:46-0500 Systolic blood pressure 148 mm[Hg] Karonyeni Rodriguez COUNSELOR [employer] FAM[employer] Work Phone: [facility] 09-15-2023 10:11-0400 Body height 184.15 cm DO Kimi Weiss Work Phone: [facility] 09-15-2023 10:11-0400 Body mass index (BMI) [Ratio] 35.2 kg/m2 DO Kimi Weiss Work Phone: [facility] 09-15-2023 10:11-0400 Body weight 119.29 kg DO Kimi Weiss Work Phone: [facility] 09-07-2023 10:35-0400 Diastolic blood pressure 98 mm[Hg] DO Kimi Weiss Work Phone: [facility] 09-07-2023 10:35-0400 Heart rate 102 /min DO Kimi Weiss Work Phone: [facility] 09-07-2023 10:35-0400 Respiratory rate 20 /min DO Kimi Weiss Work Phone: [facility] 09-07-2023 10:35-0400 SaO2% (BldA) [Mass fraction] 96 % DO Kimi Weiss Work Phone: [facility] 09-07-2023 10:35-0400 Systolic blood pressure 160 mm[Hg] DO Kimi Weiss Work Phone: [facility] 09-07-2023 10:00-0400 Inhaled oxygen flow rate 3 L/min DO Kimi Weiss Work Phone: [facility] 09-07-2023 09:19-0400 Body height 182.88 cm DO Kimi Weiss Work Phone: [facility] 09-07-2023 09:19-0400 Body weight 120.2 kg DO Kimi Weiss Work Phone: [facility] 09-16-2021 14:17-0400 Body mass index (BMI) [Ratio] 34.45 kg/m2 Kimi Weiss Work Phone: [facility]Eilvcwh[facility]Asn[facility] Work Phone: 09-16-2021 14:17-0400 Body surface area Derived from formula 2.36 m2 Kimi Weiss Work Phone: TZ-Wtdqepr-Bkltb [facility] Work Phone: 09-16-2021 14:17-0400 Body weight 115.21 kg Kimi Weiss Work Phone: JU-Otptftf-Xacmo [facility] Work Phone: 07-23-2021 09:45-0400 Body height 184.15 cm Charles Claros Other [employer] Other 07-23-2021 09:45-0400 Body mass index (BMI) [Ratio] 34.51 kg/m2 Charles Claros Other [employer] Other 07-23-2021 09:45-0400 Body weight 117.03 kg Charles Claros Other [employer] Other 06-18-2021 14:17-0500 Body mass index (BMI) [Ratio] 36.75 kg/m2 Kimi Weiss Work Phone: TV-Xosnvam-Ousco [facility] Work Phone: 06-18-2021 14:17-0500 Body surface area Derived from formula 2.42 m2 Kimi Weiss Work Phone: CD-Sqkfezc-Gbbtt [facility] [address] Work Phone: 06-18-2021 14:17-0500 Body weight 122.93 kg Kimi Weiss Work Phone: DL-Tbdhfca-Cugjo [facility] [address] Work Phone: 04-23-2021 09:49-0500 Body height 182.88 cm Kimi Weiss Work Phone: IB-Fgtqxxf-Lzbrh [facility] [address] Work Phone: 04-23-2021 09:49-0500 Body mass index (BMI) [Ratio] 39.6 kg/m2 Kimi Weiss Work Phone: YI-Txtmffh-Czatx [facility] Work Phone: 04-23-2021 09:49-0500 Body surface area Derived from formula 2.5 m2 Kimi Weiss Work Phone: IU-Uqqitdf-Edtms [facility] [address] Work Phone: 04-23-2021 09:49-0500 Body weight 132.45 kg Kimi Weiss Work Phone: LJ-Nqrzlgp-Qmjrk [facility] [address] Work Phone: 04-02-2021 09:45-0500 Body height 184.15 cm Charles Claros Other [employer] Other 04-02-2021 09:45-0500 Body mass index (BMI) [Ratio] 35.44 kg/m2 Charles Claros Other [employer] Other 04-02-2021 09:45-0500 Body weight 120.2 kg Charles Claros Other [employer] Other Encounters Encounter Date Encounter Type Care Provider Facility Start: 05-22-2024 ambulatory Kimi Boggs ty:[facility] Start: 05-19-2024 ambulatory Kimi Boggs ty:[facility] Start: 05-15-2024 End: 05-15-2024 Emergency department patient visit Kimi Weiss DO Work Phone: [facility] Work Phone: Start: 05-10-2024 End: 05-10-2024 ambulatory Kimi Weiss Facility:[facility] Start: 05-10-2024 End: 05-10-2024 ambulatory Kimi Weiss Facility:[facility] Start: 04-18-2024 End: 04-18-2024 ambulatory Kimi Weiss Facility:[facility] Start: 04-17-2024 ambulatory Kimi Weiss Facili ty:[facility] Start: 04-11-2024 Non-patient / Non-visit Kimi Weiss DO Work Phone: Count Includes [facility] Physician [facility] [place][Note 2] Cardiology Work Phone: Start: 04-10-2024 End: 04-13-2024 ambulatory [facility] Facility:[facility] Start: 04-10-2024 End: 04-13-2024 Evaluation and management of inpatient Kimi Weiss DO Work Phone: [facility] [place] [facility] Work Phone: Start: 04-10-2024 End: 04-10-2024 ambulatory Kimi Weiss Facility: [facility] Start: 04-08-2024 Non-patient / Non-visit Kimi Weiss DO Work Phone: [facility] Work Phone: Start: 04-07-2024 Non-patient / Non-visit Kimi Weiss DO Work Phone: [facility] Work Phone: Start: 04-06-2024 Non-patient / Non-visit Kimi Weiss DO Work Phone: [facility] Work Phone: Start: 04-03-2024 End: 04-03-2024 ambulatory Kimi Weiss Facility: [facility] Start: 04-02-2024 Non-patient / Non-visit Kimi Weiss DO Work Phone: [facility] Work Phone: Start: 03-31-2024 End: 03-31-2024 Patient encounter procedure Kimi Weiss DO Work Phone: [facility] Work Phone: Start: 03-27-2024 End: 03-27-2024 Bamboo flowsheet Karon Rodriguez COUNSELOR [employer] Work Phone: [facility] Start: 03-27-2024 End: 03-27-2024 Bamboo flowsheet Karon Rodriguez COUNSELOR [employer] Work Phone: [facility] Start: 03-27-2024 End: 03-27-2024 Office outpatient visit 25 minutes Karon Rodriguez COUNSELOR [employer] Work Phone: [facility] Comment on above: Chronic cluster head ache, not intractable (Primary Dx); Essential hypertension (CMS/HCC); History of blood clots Start: 03-27-2024 End: 03-27-2024 ambulatory KARON RODRIGUEZ Not Available Start: 03-07-2024 ambulatory Kimi Weiss [facility] Start: 02-21-2024 End: 02-21-2024 ambulatory Kimi Weiss Facility: [facility] Start: 02-07-2024 End: 02-07-2024 ambulatory Kimi Weiss Facility: [facility] Start: 01-17-2024 End: 01-17-2024 Office outpatient visit 15 minutes Bee Blackmon MD Work Phone: [facility] Comment on above: Postlaminectomy synd lorena, lumbar region (Primary Dx) Start: 01-17-2024 End: 01-17-2024 ambulatory BEE BLACKMON [facility] Start: 01-03-2024 End: 01-03-2024 ambulatory Kimi Weiss Facility: [facility] Start: 11-30-2023 End: 11-30-2023 ambulatory KARON RODRIGUEZ Not Available Start: 09-15-2023 End: 09-15-2023 ambulatory DO Kimi Weiss Work Phone: [facility] Work Phone: Start: 09-15-2023 End: 09-15-2023 Patient encounter procedure DO Kimi Weiss Work Phone: Count Includes [facility] Work Phone: Start: 09-07-2023 Non-patient / Non-visit DO Mike Weiss Work Phone: Count Includes [facility] Work Phone: Start: 09-07-2023 End: 09-07-2023 Admission to same day surgery center DO Kimi Weiss Work Phone: [facility]Dig[facility] Work Phone: Start: 09-07-2023 End: 09-07-2023 ambulatory DO Kimi Weiss Work Phone: [facility] Work Phone: Start: 08-16-2023 ambulatory Kimi Weiss [facility] Start: 08-09-2023 End: 08-09-2023 ambulatory THALIA SANDY Not Available Start: 08-05-2023 End: 08-05-2023 ambulatory [facility] Work Phone: Start: 08-05-2023 End: 08-05-2023 Patient encounter procedure Count Includes [facility] Work Phone: Start: 06-24-2023 End: 06-24-2023 ambulatory Kimi Weiss Facility:[facility] Start: 04-22-2023 End: 04-22-2023 ambulatory Charles Claros Other [employer] Other Start: 04-22-2023 Telephone encounter Charles Claros [facility] [place] Start: 04-01-2023 End: 04-01-2023 ambulatory Charles Claros Other [employer] Other Start: 04-01-2023 Office outpatient vi sit 25 minutes Charles Claros [facility] [place] Start: 04-01-2023 Telephone encounter Charles Claros [facility] Start: 01-21-2023 End: 01-21-2023 ambulatory Charles Suzannadelma Other [employer] Other Start: 01-21-2023 Office outpatient vi sit 25 minutes Charles Suzannadelma [facility] [place] Start: 01-21-2023 Telephone encounter Charles Claros JONATH[facility] Start: 10-06-2022 End: 10-06-2022 ambulatory Charles Claros Other [employer] Other Start: 10-06-2022 Office outpatient vi sit 25 minutes Charles Claros [facility] [place] Start: 10-06-2022 Telephone encounter Charles Claros JONATH[facility] Start: 07-23-2022 ambulatory Bee Blackmon Facility :[id number] Start: 06-01-2022 End: 06-01-2022 ambulatory Charles Claros Other [employer] Other Start: 06-01-2022 Office outpatient vi sit 25 minutes Charles Suzannadelma [facility] [place] Start: 06-01-2022 Telephone encounter Charles Claros JONATHON [facility] [place] Start: 05-13-2022 AUDIT Kimi Rasmussen on Work Phone: DU-Tfiguscauoul-Cvfttk ke Work Phone: Start: 05-12-[address] Kimi Weiss Facility:[id number] Start: 04-27-2022 Office outpatient vi sit 40 minutes Kimi Weiss Work Phone: FC-Aiaytkhgyrss-Kpgrpb ke Work Phone: Start: 04-14-2022 End: 04-14-[address] DANIEL BENITEZ Facility:[id number] Start: 02-18-2022 End: 02-18-2022 ambulatory Charles Claros Other [employer] Other Start: 02-18-2022 Office outpatient vi sit 25 minutes Charles Brisenodelma [facility] [place] Start: 02-18-2022 Telephone encounter Charles Burnham [facility] Start: 12-15-2021 End: 12-15-2021 ambulatory Charles Claros Other [employer] Other Start: 12-15-2021 Office outpatient vi sit 25 minutes Charles Claros [facility] [place] Start: 09-29-2021 Office outpatient ne w 30 minutes Kimi Weiss Work Phone: DU-Rwbqjmwwsifa-Pdyass ke Work Phone: Start: 09-16-2021 Office outpatient vi sit 25 minutes Kimi Weiss Work Phone: RO-Umijbno-Eyfmk [facility] Work Phone: Start: 07-28-2021 Office outpatient vi sit 15 minutes Kimi Weiss Work Phone: KL-Utqyfsuypeid-Qzkeyx ke Work Phone: Start: 07-23-2021 End: 07-23-2021 ambulatory Charles Claros Other [employer] Other Start: 07-23-2021 Office outpatient vi sit 25 minutes Charles Claros [facility] [place] Start: 06-18-2021 Office outpatient vi sit 25 minutes Kimi Weiss Work Phone: IY-Fvtetoy-Hvhcj [facility] Work Phone: Start: 06-03-2021 PAYAM, Provider : Shobha Gomez, Status: Pen, Time: 8:30 AM Kimi Weiss Work Phone: AN-Dbndlle-Gbpcd [facility] Work Phone: Start: 06-02-2021 AUDIT Kimi Rasmussen on Work Phone: WQ-Upzvnpz-Ysydi [facility] Work Phone: Start: 04-23-2021 Current tobacco non- user cad cap copd pv dm Kimi Weiss Work Phone: HN-Bpplddw-Iwlbs [facility] [address] Work Phone: Start: 04-02-2021 End: 04-02-2021 ambulatory Charles Claros Other [employer] Other Start: 04-02-2021 Office outpatient vi sit 25 minutes Charles Claros [facility] [place] Start: 03-10-2021 Office outpatient vi sit 15 minutes Kimi Weiss Work Phone: RW-Ilsctbvcocqi-Luwpbq Work Phone: Start: 02-05-2021 Office outpatient vi sit 25 minutes Charles Claros [facility] [place] Start: 12-09-2020 Postop follow up vis it related to original px Kimi Weiss Work Phone: VU-Pgpgczyertiu-Xmgkgo Work Phone: Start: 11-26-2020 End: 11-27-2020 Evaluation and management of inpatient Bee Blackmon [facility] Start: 10-31-2020 Phys/qhp telephone evaluation 21-30 min Referring Provider Unknown BU-Ygsszdolptgr-Zsprbg Work Phone: Procedures Date Procedure Procedure Detail Performing Clinician Start: 05-15-2024 Plain chest X-ray Bradley Weiss DO Work Phone: Start: 04-13-2024 [facility] Angio Neymar Weiss DO Work Phone: Start: 04-13-2024 Kimi marquez DO Work Phone: Start: 04-12-2024 SARS Antigen (LFIA) Mike Weiss DO Work Phone: Start: 04-10-2024 Plain chest X-ray Bradley Weiss DO Work Phone: Start: 09-15-2023 X-ray of lumbar spin e, [...] [facility] Start: 07-11-2024 End: 07-11-2024 Patient encounter procedure 07/11/2024 9:40 AM EDT [facility] [address] [place] [address] [phone] Karon Rodriguez NP [address] [place] [address] [id number] [facility] Start: 04-13-2024 [facility] Start: 04-10-2024 Sleep disorder assessment [facility] Start: 04-10-2024 Referral to muck miner blasting [facility] Start: 04-10-[address] [facility] Start: 03-30-2024 End: 03-30-2024 Patient encounter procedure 03/30/2024 9:30 AM EST Office Visit [address] [phone] [place] [address] [address] Department [place] [address] [facility] Start: 03-27-2024 End: 03-27-2024 Patient encounter procedure 03/27/2024 9:40 AM EST [facility] [address] [place] [address] [phone] Karon Rodriguez NP [address] [place] [address] [id number] Arrived [facility] Comment on above: Arrived Start: 12-19-2023 COVID-19 Vaccine ( season) COVID-19 Vaccine ( season) [facility] Start: 12-19-2023 Influenza vaccination Influenza Vacc ine (#1) [facility] Start: 09-15-2023 X-ray of lumbar spin e, four views XR lumbar spine AP/LAT/FLX/EXT [facility] Start: 09-15-2023 XR Lumbar spine 4 Views [facility] Start: 09-15-2023 Plain X-ray of right hip XR hip RT min 2V(w/wo pelvis)* [facility] Start: 09-15-2023 XR Hip - right 2 Views [facility] Start: 09-07-2023 [facility] Start: 06-11-2022 EMG, Provider: NEURODIAG EMC01 EMG ARAIZA,[id number], Status: Pen, Time: 10:30 AM EMG, Provider: NEURODIAG EMC01 EMG ARAIZA,[id number], Status: Pen, Time: 10:30 AM VA-Gvcudwvudqgi-Vhqhmx ke Work Phone: Start: 05-04-2022 VIRFUVHOME, Provider : Marisol Husain, Status: Pen, Time: 8:45 AM VIRFUVHOME, Provider: Marisol Husain, Status: Pen, Time: 8:45 AM AT-Jhpbosmffubl-Tafgkd ke Work Phone: Start: 01-13-2022 VIRFUVHOME, Provider : Marisol Husain, Status: Pen, Time: 2:15 PM VIRFUVHOME, Provider: Marisol Husain, Status: Pen, Time: 2:15 PM HK-Ntluhasqnysk-Azkqll ke Work Phone: Start: 09-29-2021 FUV, Provider: Bee Blackmon, Status: Pen, Time: 11:30 AM FUV, Provider: Bee Blackmon, Status: Pen, Time: 11:30 AM IH-Ccbmbap-Bqdif [facility] [address] Work Phone: Start: 09-16-2021 VIRFUVHOME, Provider : Marisol Husain, Status: Pen, Time: 2:15 PM VIRFUVHOME, Provider: Marisol Husain, Status: Pen, Time: 2:15 PM WE-Rbuxnkdiixkg-Mhjcof ke Work Phone: Start: 06-18-2021 VIRFUVHOME, Provider : Marisol Husain, Status: Pen, Time: 2:15 PM VIRFUVHOME, Provider: Marisol Husain, Status: Pen, Time: 2:15 PM GC-Kwdbwau-Awqha [facility] [address] Work Phone: Start: 04-23-2021 NPV, Provider: Marisol Husain, Status: Pen, Time: 10:00 AM NPV, Provider: Marisol Husain, Status: Pen, Time: 10:00 AM [facility] Work Phone: Start: 03-10-2021 FUV, Provider: Bee Blackmon, Status: Pen, Time: 11:15 AM FUV, Provider: Bee Blackmon, Status: Pen, Time: 11:15 AM IN-Yogepuxfpirn-Hczpdw ke Work Phone: Start: 03-10-2021 Patient encounter procedure [facility] [place] Start: 12-16-2020 POV, Provider: Bee Blackmon, Status: Pen, Time: 11:15 AM POV, Provider: Bee Blackmon, Status: Pen, Time: 11:15 AM FT-Eisuqcwhsugg-Ccjyvw Work Phone: Start: 11-26-2020 SURGCMC, Provider: Bee Blackmon, Status: Pen, Time: 8:30 AM SURGCMC, Provider: Bee Blackmon, Status: Pen, Time: 8:30 AM OM-Pyhcvwkoastp-Wbtpko Work Phone: Start: 2016 Zoster Vaccines (1 o f 2) Zoster Vaccines (1 of 2) [facility] Start: 1988 DTaP/Tdap/Td Vaccine s (1 - Tdap) DTaP/Tdap/Td Vaccines (1 - Tdap) [facility] Start: 1985 Hepatitis B Vaccines (1 of 3 - 19+ 3-dose series) Hepatitis B Vaccines (1 of 3 - 19+ 3-dose series) [facility] Start: 1984 Hepatitis C screening Hepatitis C Sc reening [facility] Start: 1967 MMR Vaccines (1 of 1 - Standard series) MMR Vaccines (1 of 1 - Standard series) [facility] Start: 1966 HIV screening HIV Screening [facility] Start: 1966 Lipid panel Lipid Panel [facility] Start: 1966 Screening for malign ant neoplasm of colon [facility] Start: 1966 Yearly Adult Physical Yearly Adult P hysical [facility] Patient Education [facility] Work Phone: Patient referral [facility] Work Phone: Immunizations Immunization Date Immunization Notes Care Provider Fa cility 07-22-2020 Pfizer-BioNTech COVID-19 Vacc 30 MCG/0.3ML Intramuscular Suspension Referring Provider Unknown DE-Rywmlfzfhsce-Jdtrh a Work Phone: 07-01-2020 Pfizer-BioNTech COVID-19 Vacc 30 MCG/0.3ML Intramuscular Suspension Referring Provider Unknown LU-Xugbdutmsfyn-Qpell a Work Phone: 01-27-2020 influenza, injectabl e, quadrivalent, preservative free Referring Provider Unknown NR-Feszrrlqbipi-Myvbm a Work Phone: 01-27-2020 influenza virus vaccine, unspecified formulation Bee Blackmon MD Work Phone: [facility] Work Phone: 02-13-2019 influenza, injectabl e, quadrivalent, contains preservative Referring Provider Unknown EM-Czqfbpqgqlrp-Lzrou a Work Phone: 02-21-2018 influenza, injectabl e, quadrivalent, preservative free Referring Provider Unknown CN-Rgblmsqtvqxb-Fotru a Work Phone: 01-30-2017 KENALOG - 10 mg Charles weaver Other [employer] Other 01-17-2014 influenza, seasonal, injectable Referring Provider Unknown LY-Ijsulxrwsaxw-Mdlee a Work Phone: Payers Date Payer Category Payer Self-pay [id number] 2022 Private Health Insurance [id number] 2022 Unknown [id number] 2.16.8 40.1.040782.19 1966 Unknown [id number] 2.16.8 40.1.159238.3.579.2.1069 1966 Unknown [id number] 2.16.84 0.1.276617.3.579.2.593 1966 Unknown [id number] 2.16.8 40.1.387225.3.579.2.1068 1966 Unknown [id number] 2.16.8 40.1.814277.3.579.2.1245 1966 Unknown [id number] 2.16.84 0.1.543898.3.579.2.1259 1966 Unknown [id number] 2.16.84 0.1.421379.3.579.2.1259 1966 Unknown [id number] 2.16.84 0.1.981662.3.579.2.1259 1966 Unknown [id number] 2.16.8 40.1.487603.3.579.2.718 1966 Unknown [id number] 2.16.8 40.1.246870.3.579.2.718 1966 Unknown [id number] 2.16.8 40.1.732246.3.579.2.718 1966 Unknown [id number] 2.16.8 40.1.976924.3.579.2. 1966 Unknown [id number] 2.16.8 40.1.572476.3.579.2. 1966 Unknown [id number] 2.16.8 40.1.967309.3.579.2. 1966 Unknown [id number] 2.16.8 40.1.318246.3.579.2 1966 Unknown [id number] 2.16.8 40.1.988317.3.579.2 1966 Unknown [id number] 2.16.8 40.1.472885.3.579.2 1966 Unknown [id number] 2.16.8 40.1.005437.3.579.2. 1966 Unknown [id number] 2.16.8 40.1.720871.3.579.2 1966 Unknown [id number] 2.16.8 40.1.194882.3.579.2 1966 Unknown [id number] 2.16.8 40.1.825699.3.579.2. 1966 Unknown [id number] 2.16.8 40.1.779642.3.579.2. 1959 Unknown [id number] 2. 840.1.991988.19 Unknown Unknown [id number] .. 840.1.121233.19 Unknown [id number] Unknown [id number] 2.16.8 40.1.646736.3.579.2.531 Unknown [id number] 2.16.8 40.1.980478.3.579.2.531 Unknown [id number] 2.16.8 40.1.948628.3.579.2.531 Unknown [id number] 2.16.8 40.1.889569.3.579.2.531 Social History Date Type Detail Facility [facility] Tobacco smoking consumption unknown [facility] Start: 08-08-2023 Non-smoker Non-smoker [facility] [facility] Work Phone: Start: 08-08-2023 Sex Assigned At N [facility] [employer] Other Start: 02-29-2020 End: 05-15-2024 Tobacco smoking status NHIS Never smoked tobacco (finding) [facility] Start: 1965 Sex Assigned At Male F [facility] Start: 11-30-2023 End: 03-27-2024 Alcoholic beverage intake Lifetime non-drinker (finding) [facility] Start: 1965 Sex assigned at Not on file [facility] Work Phone: Start: 01-07-2024 End: 01-17-2024 Exposure to SARS-CoV-2 (event) Not sure [facility] Start: 05-15-2024 Sex Male (finding) [facility] Medical Equipment Procedure Code Equipment Code Equipment Origin al Text Equipment Identifier Dates USE DIRECTED TO TEST BLOOD SUGAR EVERY DAY Start: 02-07-2024 Bone Matrix, Osteocel Pro Cellular, Medium Case [id number] Start: 11-26-2020 Comment on above: Description: Convert ed from [facility]. Please see archived information for full log information. 45 Screw Case [id number] Start: 11-26-2020 Comment on above: Description: Convert ed from [facility]. Please see archived information for full log information. Additional Information:45 SCREWper bill only jdr 11/27/2020 1303pm Generic Implant 03 Case [id number] Start: 11-26-2020 Comment on above: Description: Convert ed from [facility] Acute. Please see archived information for full log information. Additional Information:55 SCREWper bill only jdr 11/27/2020 1303pm Plate Case [id number] Start: 11-26-2020 Comment on above: Description: Convert ed from [facility]. Please see archived information for full log information. Additional Information:PLATEper too de la cruz jdr 11/27/2020 1303pm Spacer, Modulus Xlw, [id number], 10 Deg Case [id number] Start: 11-26-2020 Comment on above: Description: Convert ed from [facility]. Please see archived information for full log information. Blood Sugar Diagnostic (Onetouch Verio Test Strips) strip Start: 03-31-2024 Lancets (Onetouc h Delica Plus Lancet) 30 gauge misc Start: 03-31-2024 Goals Date Patient Goal Desired Activity /State Functional Status Date Assessment Result Facility 04-13-2024 Functional status Patient at Baseline [facility] Work Phone: Functional observable [facility] Mental Status Date Assessment Result Facility 04-13-2024 Cognitive function Cognitive Sta tus Patient at Baseline [facility] Work Phone: 11-26-2020 Cognitive functi ons [id number] [facility] Clinical Notes 03-10-2018 to 05-12-2024 Note Date & Type Note Facility 05-12-2024 Note - From: Court Pineda MA ([facility] ([facility] To: Kimi Weiss DO; Sent: 05/12/2024 07:39:16 EST Subject: FW: Medication Management Due Date/Time: 05/13/2024 03:26:00 EST Caller Name: LYLY QUINN; Caller Number: Alexander , last visit: 05-10-24 next visit: 05-29-24 From: [facility] #[id number] To: Kimi Weiss DO Sent: May 12, 2024 2:26:59 AM ORTHOTIC/PROSTHETIC PRACTITIONER Subject: Medication Management Due: May 13, 2024 12:03:47 AM ORTHOTIC/PROSTHETIC PRACTITIONER On Hold Pending Signature Dispensed Drug: semaglutide (Ozempic (1 mg dose) 4 mg/3 mL subcutaneous solution), INJECT 1 MG UNDER THE SKIN EVERY 7 DAYS Quantity: 3 mL Days Supply: 28 Refills: 0 Substitutions Allowed Notes from Pharmacy: From: Kimi Weiss DO To: [facility] #[id number] Sent: 05/12/2024 07:44:16 EST Subject: FW: Medication Management Submitted: Complete:semaglutide (Ozempic (1 mg dose) 4 mg/3 mL subcutaneous solution) Signed by Kimi Weiss DO 05/12/2024 07:44:00 EST Approved with modifications: semaglutide (OZEMPIC 1MG PER DOSE (4MG/3ML) PFP) INJECT 1 MG UNDER THE SKIN EVERY 7 DAYS Qty: 3 mL Days Supply: 28 Refills: 0 Substitutions Allowed Route To Pharmacy - [facility] #[id number] [facility] 03-31-2024 Evaluation note Diagnosis Onset Date Resolution Acute lower respiratory infection acute March 31, 024 9:23am Chest pain resolved April 10, 2024 3:49pm [facility] Work Phone: 1(359) 716-661012-09-2024 Note From: Whitney Jordan RN ([facility] [facility] ([facility] To: Mariah Machado CNP; Sent: 03/27/2024 07:29:10 EST Subject: FW: Medication Management Due Date/Time: 03/27/2024 08:58:00 EST Caller Name: LYLY QUINN; Caller Number: H , M From: [id number] To: Neymar Weissdane Santos DO Sent: March 25, 2024 7:58:45 AM ORTHOTIC/PROSTHETIC PRACTITIONER Subject: Medication Management Due: March 26, 2024 12:30:42 AM ORTHOTIC/PROSTHETIC PRACTITIONER On Hold Pending Signature Dispensed Drug: ONE [...] 0 Substitutions Allowed Notes from Pharmacy: Submitted: Order:!-[facility] Request. (ONE TOUCH VERIO FLEX BG MONITOR) See Instructions USE DIRECTED DAILY Qty: 1 EA Days Supply: 30 Refills: 0 Substitutions Allowed Route To [facility] #[id number] Signed by Mariah Machado APRN, CNP 03/27/2024 10:48:00 EST Not Approved: New Rx to follow !-[facility] Request. (ONE TOUCH VERIO FLEX BG MONITOR) USE DIRECTED DAILY Qty: 1 EA Days Supply: 30 Refills: 0 Substitutions Allowed Route To [facility] #[id number] Signed by Mariah Machado APRN, CNP From: Mariah Machado APRN, CNP To: [facility] #[id number] Sent: 03/27/2024 10:48:58 EST Subject: FW: Medication [...] 90 Refills: 1 Substitutions Allowed Route To [facility] #[id number] Signed by Mariah Machado APRN, CNP Approved with modifications: fenofibrate (FENOFIBRATE 48MG TABLETS) TAKE 1 TABLET BY MOUTH DAILY Qty: 90 tab(s) Days Supply: 90 Refills: 1 Substitutions Allowed Route To [facility] #[id number] Signed by Mariah Machado APRN, CNP Approved with modifications: rivaroxaban (XARELTO 20MG TABLETS) TAKE 1 TABLET BY MOUTH DAILY Qty: 90 tab(s) Days Supply: 90 Refills: 1 Substitutions Allowed Route To [facility] #[id number] Signed by Mariah Machado APRN, CNPMercy Health West [id number] History of Present illness Narrative* Karon Rodriguez NP - 03/27/2024 9:40 AM EST Images from the original note were not [...] headaches. He continues on Nurtec which is helpfulwhen combined with sleep. However, he denies Nurtec being effective during his above cluster episode. The patient's headaches are associated with nausea when severe. They are not associated with visual disturbance, vomiting, or increased sensitivity to light or sound. He admits continued lower backand RLE pain. Admits chronic lower extremity weakness He follows with neurosurgery and will be seeing a new pain management provider at the [facility] soon. He denies any further concerns [...] headache syndrome 04/22/2011 DVT (deep venous thrombosis) ([facility]) Encounter for long-term (current) drug use 09/10/2011 Pulmonary embolism ([facility]) Past Surgical History: Procedure Laterality [...] wrist extensors , wrist flexor , and branding machine tender strength 5/5. LUE strength deltoid , biceps , triceps , wrist extensors , wrist flexor , and branding machine tender strength 5/5. RLE strength illopsoas, quadriceps, tibialis [...] knee reflex 0. Brooke's sign negative Coordination: Lngesz-gv-yhcl testing normal. Rapid alternating movements are normal Gait: Ambulates with a cane, antalgic gait. Difficulty raising from a seated position. Review and summary of old records: MRI of the brain with and without contrast at [facility] on 02/16/23: No acute intracranial process. EMG [...] somewhat limited due to significant back pain, butno active denervation is notable. The patient has a suggestion of L5-S1 radicular changes on the left without any active denervation. The patient's symptoms, therefore, relate to the lumbar spine. MRI of the lumbar spine w/o contrast at [facility] () on 05/12/22: Status post interbodyspacer at L3-L4 and posterior spinal fusion of L4-L5. Susceptibility artifact renders evaluation ofthe L4-L5 spinal canal and neural foramina nondiagnostic [...] artifact from adjacent hardware. 4 mm retrolisthesis ofL3 on L4 and bilateral facet hypertrophic changes produce mild spinal canal stenosis and mild rightneural foraminal stenosis. No significant left neural foraminal stenosis. At L5-S1, 2 mm retrolisthesis of L5 on S1, circumferential disc bulge, and ligamentum flavum thickening result in mild spinalcanal stenosis. The neural foramina are not well assessed due to metallic artifact. MRI of the lumbar spine w/o contrast at on 04/30/22: Postsurgical and degenerative changes. At L2-L3, right-sided laminectomy. Broad-based disc bulge. Endplate osteophytes. Facet degenerative changes. Mild to moderate bilateral foraminal narrowing, worsened from prior study, without significant c anal narrowing. At L3-L4, postsurgical changes. Disc bulge. Endplate osteophytes. Within limits of artifact, no evidence for high-grade canal narrowing. Within limits of artifact, possible mild rightforaminal narrowing without significant left foraminal narrowing. Findings overall similar to prior study. At L4-L5, postsurgical changes. Endplate osteophytes. Facet degenerative changes. No high-grade canal narrowing with limits of artifact. No high-grade foraminal narrowing within limits of artifact. Findings overall similar to prior study. At L5-S1, broad-based disc bulge. Endplate osteophytes. Facet degenerative changes. No evidence for high-grade canal narrowing within limits of artifact.Possible mild bilateral foraminal narrowing within limits of artifact. Findings overall similar to prior study. CT of the brain without contrast on 03/26/21: No evidence of bleed or mass. Cystic lesion in the clivus centrally and to the right which is stable from examination back in 2010. Likely not clinically significant. EMG of the BLE at [facility] on 11/09/19: There are findings consistent [...] but his symptoms do not seem to co rrelate given the alternating unilateral quality, lack of [...] did not respond to Nurtec. Nurtec is moreeffective than Ubrelvy. PLAN: - Refill Emgality 300 mg subcutaneous monthly during acute cluster. Plan to return to 120 mg dosingfollowing acute exacerbation. - Continue Emgality 120 mg subcutaneous once a month for migraine prevention (Hold while taking 300mg dose during acute cluster period) - Avoid [...] not intractable (CMS/HCC) See above. Essential hypertension (CMS/HCC) PLAN: - Follow closely with primary care [...] Dr. Blackmon ( orthopedic surgery). MRI of thelumbar spine (ordered by another provider) on 05/12/22 [...] I have advised him to further discuss thiswith the above providers. Follow up in 2-3 months or sooner if symptoms worsen, fail to improve, or should a new neurologicalconcern arise. Diagnosis prognosis and treatment options discussed in detail. All questions answered. documented in this encounterCedar County Memorial [id number] Note From: Whitney Jordan RN ([facility] ([facility] To: Mariah Machado CNP; Sent: 03/20/2024 07:25:53 EST Subject: FW: Medication Management Due Date/Time: 03/20/2024 03:27:00 EST Caller Name: OSKARSONJA LYLY ANALISA; Caller Number: , From: [facility] #[id number] To: Kimi Weiss DO Sent: March 18, 2024 2:27:30 AM ORTHOTIC/PROSTHETIC PRACTITIONER Subject: Medication Management Due: March 19, 2024 1:11:06 AM ORTHOTIC/PROSTHETIC PRACTITIONER On Hold Pending Signature Dispensed Drug: DULoxetine [...] 0 Substitutions Allowed Notes from Pharmacy: Submitted: Order:![facility] Request. (ONE TOUCH VERIO FLEX BG MONITOR) See Instructions USE DIRECTED DAILY Qty: 1 EA Days Supply: 30 Refills: 0 Substitutions Allowed Route To Pharmacy - [facility] #[id number] Signed by Mariah Machado APRN, CNP 03/20/2024 09:22:00 EST Not Approved: New Rx to follow ![facility] Request. (ONE TOUCH VERIO FLEX BG MONITOR) USE DIRECTED DAILY Qty: 1 EA Days Supply: 30 Refills: 0 Substitutions [id number] Signed by Mariah Machado APRN, CNP From: Mariah Machado APRN, CNP To: [facility] #[id number] Sent: 03/20/2024 09:23:45 EST Subject: FW: Medication [...] 90 Refills: 0 Substitutions Allowed Route To [facility] #[id number] Signed by Mariah Machado APRN, CNP Approved with modifications: lisinopril (LISINOPRIL 20MG TABLETS) TAKE 1 TABLET BY MOUTH DAILY Qty: 90 tab(s) Days Supply: 90 Refills: 0 Substitutions Allowed [id number] Signed by Mariah Machado APRN, CNPMercy Health West [id number] Note From: Whitney Jordan RN ([facility] ([facility] To: Kimi Weiss DO; Sent: 02/08/2024 08:11:19 EDT Subject: FW: Medication Management Due Date/Time: 02/08/2024 17:02:00 EDT Caller Name: LYLY QUINN; Caller Number: Alexander , Oral From: [facility] #[id number] To: Kimi Weiss DO Sent: February 07, 2024 4:02:35 PM CDT Subject: Medication Management Due: February 08, 2024 12:04:07 AM CDT On Hold Pending Signature Dispensed Drug: metFORMIN (metFORMIN 500 mg oral tablet), TAKE 1 TABLET BY MOUTH TWICE DAILY Quantity: 180 tab(s) Days Supply: 90 Refills: 0 Substitutions Allowed Notes from Pharmacy: Patient requests 90 days supply From: Kimi Weiss DO To: [facility] #[id number] Sent: 02/08/2024 09:31:55 EDT Subject: FW: Medication Management Submitted: Complete:metFORMIN (metFORMIN 500 mg oral tablet) Signed by Kimi Weiss DO 02/08/2024 09:31:00 EDT Approved metFORMIN (METFORMIN 500MG TABLETS) TAKE 1 TABLET BY MOUTH TWICE DAILY Qty: 180 tab(s) Days Supply: 90 Refills: 0 Substitutions Allowed Route To Pharmacy - [facility] #[id number] Note from Pharmacy: [facility] History of Present illness Narrative* Bee Blackmon MD - 01/17/2024 8:30 AM EDT Patient returns for follow-up. I saw him [...] been working with pain management locally in [place] but they have just been doing epidural injections and recently told him there is nothing more that they can do. I do think it is worthwhile for him to follow-up with Dr. Henriquez andPM&R for a fresh set of eyes on this problem. I suspect he has underlying CRPS, but ultimately this might be heading towards spinal cord stimulator intervention. Would be happy to see him back on an as-needed basis. *This note was dictated using speech recognition software and was not corrected for spelling or grammatical errors* documented in this [facility] Work Phone: 1(318) 506-164305-21-2024 Procedure noteMercy Health West Hospital04-17-2024 Note From: Erica Espinoza ([facility] ([facility] To: Kimi Weiss DO; Sent: 07/30/2023 09:07:59 EDT Subject: FW: Medication Management Due Date/Time: 07/30/2023 17:37:00 EDT Caller Name: LYLY QUINN; Caller Number: Alexander , Oral Lisinopril 30 mg was refilled last month on 06/24/23 for a 90 day supply with 3 refills. From: [facility] #[id number] To: Kimi Weiss DO Sent: July 29, 2023 4:37:37 PM CDT Subject: Medication Management Due: July 30, 2023 1:56:01 AM CDT On Hold Pending Signature Dispensed Drug: lisinopril (lisinopril 10 mg oral tablet), TAKE 1 TABLET BY MOUTH DAILY Quantity: 90 tab(s) Days Supply: 90 Refills: 0 Substitutions Allowed Notes from Pharmacy: From: Kimi Weiss DO To: [facility] #[id number] Sent: 08/04/2023 06:24:31 EDT Subject: FW: Medication Management Submitted: Complete:lisinopril (lisinopril 30 mg oral tablet) Signed by Kimi Weiss DO 08/04/2023 06:24:00 EDT Approved with modifications: lisinopril (LISINOPRIL 10MG TABLETS) TAKE 1 TABLET BY MOUTH DAILY Qty: 90 tab(s) Days Supply: 90 Refills: 3 Substitutions Allowed Route To Pharmacy - [facility][id number] [facility] West [id number] Evaluation note* Encounter Date Diagnosis Assessment Notes Treatment Notes Treatment Clinical Notes Apr, Lumbar back sprain (ICD-10 - S33.5XXA) [facility] Other 12-14-2023 Evaluation note* Encounter Date Diagnosis Assessment Notes Treatment Notes Treatment Clinical Notes Mar, Chronic, continuous use of opioids (ICD-10 - F11.90) [facility] Other 12-14-2023 Evaluation note* Encounter Date Diagnosis [...] note writ ten by Lawanda Yuen RN, Carbon Furnace Operator. Edited and approved by Dr. Charles Claros MD. [facility] Other 10-05-2023 Evaluation note* Encounter Date Diagnosis [...] note writ ten by Doris Weiss LPN, Carbon Furnace Operator. Edited and approved by Dr. Charles Claros MD. [facility] Other 10-05-2023 Evaluation note* Encounter Date Diagnosis Assessment Notes Treatment Notes Treatment Clinical Notes Jan, Lumbar back sprain (ICD-10 - S33.5XXA) [facility] Other 06-20-2023 Evaluation note* Encounter Date Diagnosis [...] to patients condition. Saliva sample performed through [facility] today, will await confirmatory results. Sep, Other chronic pain (ICD-10 - G89.29) Sep, Other Above note writ ten by Doris Weiss LPN, Carbon Furnace Operator. Edited and approved by Dr. Charles Claros MD. [facility] Other 06-20-2023 Evaluation note* Encounter Date Diagnosis Assessment Notes Treatment Notes Treatment Clinical Notes Sep, Lumbar back sprain (ICD-10 - S33.5XXA) [facility] Other 02-13-2023 Evaluation note* Encounter Date Diagnosis [...] note writ ten by Dutch Taylor MA, Carbon Furnace Operator. Edited and approved by Dr. Charles Claros MD. [facility] Other 02-13-2023 Evaluation note* Encounter Date Diagnosis Assessment Notes Treatment Notes Treatment Clinical Notes May, Lumbar back sprain (ICD-10 - S33.5XXA) [facility] Other 11-02-2022 Evaluation note* Encounter Date Diagnosis [...] note writ ten by Doris Weiss LPN, Carbon Furnace Operator. Edited and approved by Dr. Charles Claros MD. [facility] Other 11-02-2022 Evaluation note* Encounter Date Diagnosis Assessment Notes Treatment Notes Treatment Clinical Notes Feb, Lumbar back sprain (ICD-10 - S33.5XXA) [facility] Other 08-29-2022 Evaluation note* Encounter Date Diagnosis [...] note writ ten by Doris Weiss LPN, Carbon Furnace Operator. Edited and approved by Dr. Charles Claros MD. [facility] Other 05-31-2022 Chief complaint Narrative - Reported* An interactive audio and video telecommunication system which permits real time communications between the patient (at the originating site) and provider (at the distant site) was utilized to providethis telehealth service. * Verbal consent was requested and obtained from LYLY QUINN on this date, 09/16/2021 02:15 PM , for atelehealth visit. [facility] Work Phone: 1(625) 350-277304-06-2022 Evaluation note* Encounter Date Diagnosis Assessment Notes [...] note writ ten by Dutch Taylor CMA, Carbon Furnace Operator. Edited and approved by Dr. Charles Claros MD. [facility] Other 03-02-2022 Chief complaint Narrative - Reported* An interactive audio and video telecommunication system which permits real time communications between the patient (at the originating site) and provider (at the distant site) was utilized to providethis telehealth service. * Verbal consent was requested and obtained from LYLY QUINN on this date, 06/18/2021 02:15 PM , for atelehealth visit. [facility] Work Phone: 1(955) 371-314701-05-2022 Chief complaint Narrative - Reported* An interactive audio and video telecommunication system which permits real time communications between the patient (at the originating site) and provider (at the distant site) was utilized to providethis telehealth service. * Verbal consent was requested and obtained from LYLY QUINN on this date, 04/23/2021 10:00 AM , for atelehealth visit. [facility] Work Phone: [phone]) 418-277901-05-2022 Chief complaint Narrative - Reported* An interactive audio and video telecommunication system which permits real time communications between the patient (at the originating site) and provider (at the distant site) was utilized to providethis telehealth service. * Verbal consent was requested and obtained from LYLY QUINN on this date, 04/23/2021 10:00 AM , for atelehealth visit. [facility] Work Phone: [phone]) 515-689312-15-2021 Evaluation note* Encounter Date Diagnosis Assessment Notes [...] note writ ten by Lawanda Yuen CMA, Carbon Furnace Operator. Edited and approved by Dr. Charles Claros MD. [facility] Other 10-20-2021 Evaluation note* Encounter Date Diagnosis [...] note writ ten by Dutch Taylor MA, Carbon Furnace Operator. Edited and approved by Dr. Charles Claros MD. [facility] Other 08-10-2021 NoteSend Summary: Discharge Summary Providers: Provider RoleProvider Name Kimi Alarcon Zachary Note Recipients: Bee Blackmon MD Jackson, Steven P, DO - [phone] [] Discharge: Summary: Admission Date: .26-Nov-2020 10:44:00 [...] visit. Immunizations: Immunizations: 19-Nov-2020 SARS-CoV-2 (COVID-19): Immunizations, [employer] COVID-19 Vacc 30 mcg/0.3ml IM suspension, 01-Jul-2020 [...] Follow-Up Appointment Scheduled Date/Time: 09-Dec-2020 11:15 Location: [address] [place] [address] [address], Phone Number: Office: Gene CoburnMaranda) - [phone] Discharge Medications: Home Medication lisinopril 20 mg [...] Dx: acute post-operative pain (more content not included)...[facility]08-10-2021 NotePost Operative Note: PreOp Diagnosis: lumbar stenosis with radiculopathy Post-Procedure Diagnosis: same as preop Procedure: 1. L3-4 XLIF 2. 3. 4. 5. Surgeon: Neymar Resident/Fellow/Other Kelly Machine Operator: Daniela Anesthesia: JOSHUA Estimated Blood Loss (mL): 15 Specimen: no [...] Completion Last Updated: 10-Dec-2020 17:38 by Bee Blackmon)[facility]08-10-2021 NotePreop Checklist: Preop Checklist: Procedure TypeL3-4 lateral lumbar fusion with instrumentation Temperature C36.4 degrees C Temperature F97.5 degrees F Heart Rate92 beats per minute Respiratory Rate16 breath per minute Blood Pressure Cxohcdgd058 mm/Hg Blood Pressure Ojsjojidl45 mm/Hg NPO Jhtptv28-Mhp-3031 22:00 ID Band Onyes Allergy Bandno known allergies Consent Signedyes H&P Completeyes Anesthesia Assessment Completedyes EKG Performedsee results tab Chest X-Ray Performedsee results tab Chlorhexadine Bath Givennot applicable Nasal Antiseptic Appliednot applicable Hair Washednot applicable Soap and water bath with hair shampoo the night before surgeryyes Hat placed on infant prior to transportnot applicable SCD's Appliedsent to [...] Last Updated: 26-Nov-2020 12:09 by Pat Padilla (RN)[facility]08-10-2021 NoteHistory & Physical Reviewed: I [...] the note. I personally evaluated the patient [id number] Electronic Signatures: Bee Blackmon) (Signed 09-Dec-2020 19:41) Authored: Note Completion Co-Signer: History & Physical Reviewed, ERAS, Consent, Note Completion Kevin Marshall (Resident)) (Signed 26-Nov-2020 05:52) Authored: History & Physical Reviewed, ERAS, Consent, Note Completion Last Updated: 09-Dec-2020 19:41 by Bee Blackmon)[facility]05-05-2021 Evaluation note* Lymphatic: No significant lymphadenopathyNeurological: A&Rn8Cmmiodyyyxlfxhew: Soft, ntndCardiovascular: RRR by peripheral pulsesPsychological: Appropriate mood and behaviorRespiratory/Thorax: Breathing normally on RAHead/Neck: Neck supple, trachea midlineEyes: EOMI, clear scleraSkin: Warm and dry, no rashesMusculoskeletal: L1: SILTL2: SILT Hip flexors 5/5 Right; 5/5 LeftL3: SILT Knee extension 5/5 Right; 5/5 LeftL4: SILT Tib Ant. (Dorsiflexion) 5/5 Right; 5/5 LeftL5: SILT EHL 5/5 Right; 5/3JrliZ0: SILT Planter flexion 5/5 Right; 5/5 LeftConstitutional: Awake/alert/oriented x3, no distress, alert and cooperative [facility]02-01-2020 History of Present illness Narrative* [...] He was evaluated by another surgeon in [facility], they did recommend surgery however he has a history involving multiple DVTs and pulmonary embolism. After his last operation he was not bridged preoperatively on Lovenox, and he did not receive any anticoagulation until 2 weeks after surgery. Despite having an IVC filter in place he through another pulmonary embolism. He follows up with a branch customer service representative in [place]. * He is otherwise in good health. [...] 26. I have reached out to his branch customer service representative to confirm plans for perioperative anticoagulation. He is fully vaccinated for COVID-19. * This note was dictated using speech recognition software and was not corrected for spelling or grammatical errors. [facility] Work Phone: 1(532) 407-529802-01-2020 History of Present illness Narrative* 55-year-old male [...] He was evaluated by another surgeon in [facility], they did recommend surgery however he has a history involving multiple DVTs and pulmonary embolism. After his last operation he was not bridged preoperatively on Lovenox, and he did not receive any anticoagulation until 2 weeks after surgery. Despite having an IVC filter in place he through another pulmonary embolism. He follows up with a branch customer service representative in [place]. * He is otherwise in good health. [...] 26. I have reached out to his branch customer service representative to confirm plans for perioperative anticoagulation. He is fully vaccinated for COVID-19. * This note was dictated using speech recognition software and was not corrected for spelling or grammatical errors. [facility] Work Phone: 1([phone]) 868-493901-06-2019 History of Present illness Narrative* Patient is [...] not corrected for spelling or grammatical errors. [facility] Work Phone: 1([phone]) 470-215412-18-2018 History of Present illness Narrative* Patient is [...] not corrected for spelling or grammatical errors. [facility] Work Phone: 1(355) 965-515911-22-2018 History of Present illness Narrative* Patient is [...] not corrected for spelling or grammatical errors. [facility] Work Phone: Evaluation note* Diagnosis Onset Date Resolution Status Chronic pain acute Chronic, continuous use of opioids acute Other spondylosis with radiculopathy, lumbar region [facility] Work Phone: Evaluation note* Diagnosis Onset Date Resolution Status Chronic pain acute Chronic, continuous use of opioids acute Other spondylosis with radiculopathy, lumbar region acute Chronic pain acute Chronic, continuous use of opioids acute Other spondylosis with radiculopathy, lumbar region [facility] Work Phone: Evaluation note* Diagnosis Chronic cluster headache, not intractable- Primary Essential hypertension (CMS/HCC) Unspecified essential hypertension History of blood clots documented [facility]* Diagnosis Postlaminectomy syndrome, lumbar region- Primary documented in this encounter [facility] Work Phone: History general Narrative - Reported* [...] dr) Hospitalization History pulmonary embolism 2 alfa [employer] Other History of Present illness Narrative* Patient [...] not corrected for spelling or grammatical errors [facility]fwos[facility]Hmjfdlqb Work Phone: History of Present illness Narrative* [...] * Lives with: Spouse * 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[employer] * Sleep patterns: 8hrs YANNI on CPAP * Alcohol: 1-2 on the weekends * Tobacco: None * Recreational Drugs: None * Exercise: Therapy for back 2 x weekly [facility] Work Phone: History of Present [...] and V8 * L - yogurt, granola (scottish yogurt, 1/4 cup granola), cream of corn 1 cup * Snack - pop corner 100 calorie bag * D - veggie burger with estonian cheese & onion (2 burgers) low calorie [...] * Lives with: Spouse * 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 * Continued topiramate as adjunct to diet/exercise last visit. 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 [facility] Work Phone: History of Present illness Narrative* [...] is going to do this in the [place] area at [facility], we will have them push the results to PACS. He shouldcall the office for the results of the MRI. * In the meantime I am going to put him on some prednisone. * I will speak with him after the MRI is complete. * This note was dictated using speech recognition software and was not corrected for spelling or grammatical errors. BM-Vhuiqlqrnpkz-Yhqtyhdt Work Phone: Hospital Discharge instructions* Activity:activity with [...] Appointment 1:Physician/Dept/Service: Dr. Bee Blackmon/ Orthopaedic Surgery/ [facility] for Referral: Postoperative Follow-Up AppointmentScheduled Date/Time: 09-Dec-2020 11:15Location: [address], Phone Number: Office: ([place], Sec.) - [phone]: Please Call Tara Gonzalez RN at [phone] For Any [facility] Additional Instructions If your symptoms return/worsen or you develop any further concerns or symptoms please see your doctor or return to the emergency department immediately.[facility] Work Phone: Reason for referral (narrative)* Reason for Referral: L3-4 fusion [facility] Chief Complaint * A telephone [...] Hypertension Unknown Malignant neoplasm of breast Unknown Relationship Condition Age at Onset Recorded Date/T eleanor mother Diabetes mellitus Unknown Hypertension Unknown Malignant neoplasm of breast Unknown Advance Directives No Advanced Directives Records Found Advance Directive Response Recorded Date/ Time Advance Directives No December 3:03pm Advance Directive Response Recorded Date/ Time Advance Directives No December 2:03pm Chief Complaint and Reason for Visit Chief [...] spondylosis with radiculopathy, lumbar region Chief Complaint Admit Date Chest congestion March 31, 2024 9:23am chest pain April 10, 2024 3:49pm chest pain April 11, 2024 1:20pm sob, chest pain, sent by April 12:15pm Reason for Visit Admit Date Acute lower respiratory infection Decemb er 2023 9:23am Chest pain April 10, 2024 3:49pm Additional Source Comments <item> Privacy Markings (unrecogniz [...] section and content) DATE CREATED AUTHOR 09/29/2021 [facility] DATE CREATED AUTHOR AUTHOR'S ORGANIZ ATION 05/01/2022 [facility] dical Specialist DATE CREATED AUTHOR AUTHOR'S ORGANIZ ATION 05/05/2022 [employer] DATE CREATED AUTHOR AUTHOR'S ORGANIZ ATION 05/16/2022 [facility] DATE CREATED AUTHOR AUTHOR'S ORGANIZ ATION 06/24/2022 [facility]ital DATE CREATED AUTHOR AUTHOR'S ORGANIZ ATION 07/28/2022 [facility] DATE CREATED AUTHOR AUTHOR'S ORGANIZ ATION 01/17/2024 [facility] DATE CREATED AUTHOR AUTHOR'S ORGANIZ ATION 03/30/2024 [facility] dical Specialists [facility] DATE CREATED AUTHOR AUTHOR'S ORGANIZ ATION 05/16/2024 [facility] DATE CREATED AUTHOR AUTHOR'S ORGANIZ ATION [facility] RE[facility]ON FOR VISIT (unrecogniz ed [...] Provider Active Sta rt: September 15, 2023 [employer] Supervisor Relationship Specialty Start Date End Date Kimi Weiss MD [address] [place] [phone] PCP - General Family Medicine 08/09/23 [employer] Supervisor Relationship Specialty [place] [address] [place] [id number] PCP - General Family Medicine 08/09/23 [employer] Supervisor Relationship Specialty [place] [address] [place] [id number] PCP - General 11/04/20 Team Status: Inactive Member Role Status Dates Kimi Weiss DO Primary Care Provider Active Start: March 31, 2024 End: March 31, 2024 Ramonita Emmanuel APRN Attending Provider Active Start: March 31, 2024 End: March 31, 2024 Team Status: Active Member Role Status Dates Kimi Weiss DO Primary Care Provider Active Start: April 02, 2024 Edgar Cody DO Attending Provider Active Sta rt: April 02, 2024 Team Status: Active Member Role Status Dates Kimi Weiss DO Primary Care Provider Active Start: April 06, 2024 Edgar Cody DO Attending Provider Active Sta rt: April 06, 2024 Team Status: Active Member Role Status Dates Kimi Weiss DO Primary Care Provider Active Start: April 07, 2024 Edgar Cody DO Attending Provider Active Sta rt: April 07, 2024 Team Status: Active Member Role Status Dates Kimi Weiss DO Primary Care Provider Active Start: April 08, 2024 Edgar Cody DO Attending Provider Active Sta rt: April 08, 2024 Team Status: Inactive Member Role Status Dates Kimi Weiss DO Primary Care Provider Active Start: April 10, 2024 End: April 13, 2024 Des Contreras DO Emergency Provider Active Start: April 10, 2024 End: April 13, 2024 Leslie Sanchez MD Admit Provider, A ttending Provider Active Start: April 10, 2024 End: April 13, 2024 Wendy Cruz RN Other Provider Active Star t: April 10, 2024 End: April 13, 2024 Jacinto Livingston MD Other Provider Active Start: Bogdan [email or web address] End: April 13, 2024 Des Musa MD Other Provider Active Start: March End: April 13, 2024 Iza Patel MD Other Provider Active Start: April 10, 2024 End: April 13, 2024 Team Status: Active Member Role Status Dates Kimi Weiss DO Primary Care Provider Active Start: April 11, 2024 Des Contreras DO Emergency Provider Active Start: April 11, 2024 Leslie Sanchez MD Admit Provider, O ther Provider Active Start: April 11, 2024 Wendy Cruz RN Other Provider Active Star t: April 11, 2024 Jacinto Livingston MD Attending Provider, Other Provider Active Start: April 11, 2024 Des Musa MD Other Provider Active Start: March Iza Patel MD Other Provider Active Start: April 11, 2024 Team Status: Inactive Member Role Status Dates Kimi Weiss DO Primary Care Provider Active Start: May 15, 2024 End: May 15, 2024 Brian Blanchard DO Emergency Provider Active Start: May 15, 2024 End: May 15, 2024 Goals (unrecognized section and content) Goals may [...] BE BASED ON THE PRIMARY CLINICAL RECORDS. [facility] [employer] [facility]. provides no warranty or guarantee of the accuracy or completeness of information in this document.
--- NOTE | 2024-05-24 09:07 | RT_ITS ---
[facility] Test Date: 2024-05-24 Pat Name: LYLY KIDD Department: Room: - Gender: Male Veterinary X Ray Operator: Misael Gomez RRT : 1965 Requested By: [id number] Order Number: [id number] Reading MD: Héctor Kang Interpretive Statements Pulmonary function testing was completed according to ATS criteria. Findings were considered accurate and reproducible, with exception of FVC which did not meet ATS standards. No bronchodilator was administered due to normal spirometric values. Spirometry (based on pre-bronchodilator values): -FEV1/FVC: Normal @ 87% -FEV1: Normal @ 108% -FVC: Normal @ 95% Lung volumes by plethysmography: -RV: Low normal @ 81% -TLC: Normal @ 98% Diffusion capacity: -DLCO: Normal @ 87% when corrected for Hb 14.7g/dL Flow-volume loop: -Normal shape Impressions: -Essentially normal PFT. If asthma remains in the differential, may consider methacholine challenge testing. Clinical correlation required. Electronically Signed On 05-24-2024 18:02:31 EST by Héctor Kang
== END 2024-05-24 08:05 | disposition home or self-care (01) ==
LOC: CARD 08:04
PROVIDERS: PCP Family Medicine; Visit Provider Family Medicine
DX: R06.02 Shortness of breath (principal)
CPT/HCPCS: 94010; 94726; 94729

== ENCOUNTER 2024-07-07 06:30 | Outpatient (OUT) | payer OTHER, SELFPAY ==
--- OUTSIDE RECORDS SUMMARY | 2024-07-07 06:34 | XMS_ITS | CCD ---
Author Organization [facility] Care Team Providers [employer] F[employer] Professor Name Role Phone Unknown, Referring Provider Unavailable [...] Provider Kimi Weiss DO Primary Care Provider [phone] Des Contreras DO Emergency Provider Leslie Sanchez MD Admit Provider Leslie Sanchez MD Attending Provider [phone] Wendy Cruz RN Other Provider Unavailable Yara ANSARI, Jacinto Other Provider Des Musa MD Other Provider [phone] Iza Patel MD Other Provider Brian Blanchard DO Emergency Provider Brian Blanchard Admitting Unavailable Brian Blanchard Attending Unavailable Abhishek, Kimi Primary Care Unavailable Abhishek, Kimi Primary Care Unavailable Charles Claros Admitting Unavailable Charlse Claros Attending Unavailable Wendy Cruz Consulting Unavailable Abhishek, Kimi Primary Care Unavailable Daromar, Obaydah M Admitting Unavailable Daromar, Obaydah M Attending Unavailable Jacinto Livingston Consulting Unavailable Des Musa Consulting Alondra Patel, Iza Consulting Unavailable Abhishek, Kimi Primary Care Unavailable Charles Claros Admitting Unavailable Charles Claros Attending Unavailable Abhishek DO, Kimi Venegas Primary Care Provider RADHA GATES Attending Unavailable ABHISHEK, KIMI PETER Primary Care Unavailabl e Abhishek, Kimi P Primary Care Unavailable Abhishek, [...] Lackey DO Consulting Unavailable Abhishek, Kimi P Admitting Unavailable Abhishek, Kimi P Attending Unavailable Abhishek, Kimi P Primary Care Unavailable Abhishek, Kimi P Primary Care Unavailable Abhishek, Kimi P Attending Unavailable Abhishek, Kimi P Primary Care Unavailable Abhishek, Kimi P Attending Unavailable Abhishek, Kimi P Attending Unavailable Abhishek, Kimi P Primary Care Unavailable Allergies Allergy Classification Reported Allergen(s) Allergy Type Date of Onset Reaction(s) Facility (1 source) ALLERGIES NOT ON FILE; Translations: [ALLERGIES NOT ON FILE] Propensity to adverse reactions (disorder) [facility] Medications Current Medications Medication Drug Class(es) Dates [...] Start: 04-08-2021 take 1 capsule by mo [facility] every four hours as needed for headache [id number] 50-300-40 MG Oral Capsule TAKE 1 CAPSULE [...] for 30 days May, Active Start: 04-02-2021 HYDROcodone-ac etaminophen ([place]) 5-325 mg tablet Take by mouth. 04/02/2021 Active Start: 04-02-2021 take 1 tablet by [...] 15, 2019 11:03am February 28, 2020 12:49pm [id number] 200 actuat albuterol 0.09 mg/actuat metered dose [...] 03-31-2024 Blood-Glucose Meter (Onetouch Verio Flex Meter) [facility] Active EACH .ROUTE .MEDSUPPLY March 31, 2024 12:00am As directed blood-glucose meter misc (1 source) Start: 03-20-2024 blood-glucose meter misc ONE TOUCH VERIO FLEX BG MONITOR, See Instructions, Instructions: USE DIRECTED DAILY, # 1 EA, 0 Refill(s), Pharmacy: [id number], USE DIRECTED DAILY, Supply, 185, cm, 03/10/24 15:25:00 EST, Height, 120, kg, 03/07/24 16:07:00 EST, Weight Dosing 03/20/2024 Active cyclobenzaprine hydrochloride 10 mg oral [...] 12:00am Start: 08-01-2020 take 1 capsule by mo uth once daily DULoxetine HCl - 60 MG [...] Ordered: 19-Nov-2020 Tara Gonzalez Generic Substitution Allowed fenofibrate 48 mg oral tablet (20 sources) Peroxisome Proliferator Receptor alpha Agonist Start: 04-14-2021 Fenofibrate 48 MG Oral Tablet Quantity: 90 Refills: 0 Ordered: 14-Apr-2021 DO Start : 14-Apr-2021 Active Start: 06-13-2019 take 1 tablet by azucena th once daily fenofibrate (Tricor) 48 mg tablet Take 1 tablet (48 mg) by mouth once daily. 04/14/2021 Active Start: 12-28-2017 End: 08-04-2018 take 1 tablet by mouth once daily Fenofibrate Nanocrystallized 48 mg tablet Discontinued 48 MG PO Daily December 27, 2017 11:00pm August 04, 2018 1:35pm gabapentin 300 mg oral capsule (10 sources) Anti-epileptic Agent Start: 06-22-2024 gabapenti n (Neurontin) 300 mg capsule Indications: Postlaminectomy syndrome, lumbar region 1 capsule each evening for two days, then 1 capsule twice daily for two days, then one capsule three times daily 90 capsule 3 06/22/2024 Active Start: 09-19-2020 take 1 capsule by mo ut twice daily Gabapentin 300 MG Oral Capsule TAKE 1 CAPSULE BY MOUTH TWICE DAILY Quantity: 60 Refills: 0 Ordered: 19-Sep-2020 DO Start : 19-Sep-2020 Complete Start: 03-05-2020 End: 09-07-2023 take 1 tablet by mouth twice daily Gabapentin 600 mg Tablet Discontinued 600 MG PO Twice daily 60 March 05, 2020 12:00am September 07, 2023 8:17am glyBURIDE 3 mg oral tablet (1 source) Sulfonylurea take 1 tablet by mouth once daily glyBURIDE micronized (Glynase) 3 mg tablet Take 1 tablet (3 mg) by mouth once daily. Active lisinopril 30 mg oral tablet (20 sources) Angiotensin Converting Enzyme Inhibitor Start: End: take 1 tablet by mouth once daily Lisinopril 30 mg tablet Active 30 MG PO Daily May 15, 2024 12:00am Start: 08-05-2023 End: 09-07-2023 take 2 tablets by mouth once daily Lisinopril 10 mg tablet Discontinued 20 MG PO Daily August 05, 2023 8:05am September 07, 2023 8:17am Start: 08-05-2023 End: 09-07-2023 take 20 mg by mouth once daily Lisinopril Discontinued 20 MG PO Daily August 05, 2023 9:05am September 07, 2023 9:17am Start: 10-08-2020 take 1 tablet by azucena once daily Lisinopril 20 MG Oral Tablet [...] 6 hours as needed for anxiety 14 May 15, 2024 12:00am metFORMIN hydrochloride 500 mg oral tablet (2 sources) Biguanide Start: 03-31-2024 take 2 tablets by [...] OF MIGRAINE 8 tablet 2 03/20/2024 Active rivaroxaban 20 mg oral tablet (20 sources) Factor Xa Inhibitor Start: 04-14-2021 Xarelto 20 MG Oral Tablet Quantity: 90 Refills: 0 Ordered: 14-Apr-2021 DO Start : 14-Apr-2021 Active Start: 02-28-2020 take 1 tablet by azucena th in the morning Xarelto 20 mg tablet Take 1 tablet (20 mg) by mouth early in the morning.. 03/27/2024 Active Start: 06-15-2019 End: 02-28-2020 take 1 tablet [...] 15, 2019 11:04am Semaglutide (1 source) Start: 05-15-2024 inject 1 mg by subcutaneous injection once Semaglutide (Ozempic) 1 mg/dose (4 mg/3 mL) pen injector Active 1 MG SUBCUT MO@0900 May 15, 2024 12:00am sennosides, mcfp 8.6 mg oral tablet (1 source) Start: [...] Twice daily as needed for pain 60 August 06, 2023 May 15, 2024 1:43pm [...] times daily as needed for Muscle Pain June 15, 2019 11:03am February 28, 2020 [...] or discontinue unless directed by your doctor. 1 ml galcanezumab-gnlm 100 mg/ml prefilled syringe (15 sources) Start: 03-31-2024 End: 04-10-2024 Galcanezumab-Gnlm (Emgality [...] exacerbation. 3.08 mL 3 03/27/2024 Active Start: 08-12-2021 galcanezumab ( Emgality) 120 MG/ML auto-injector Indications: Chronic migraine without aura without status migrainosus, not intractable (CMS/HCC) INJECT 1 SYRINGE( 120 MG) UNDER THE SKIN ONCE EVERY MONTH 1 mL 2 01/27/2024 Active Lidocaine (5 sources) Antiarrhythmic, Amide Local [...] PO Q4H as needed for back pain 05 11March 05, 2020 September 07, 2023 8:17am Comment [...] cause serious breathing problems. polyethylene glycol 3350 11637 mg powder for oral solution (3 sources) [...] Ordered: 03-Jul-2020 DO Start : 03-Jul-2020 Complete Semaglutide (1 source) Start: 03-31-2024 End: 05-15-2024 [...] Start: 04-23-2021 take 1 tablet by azucena twice daily Topiramate 50 MG Oral Tablet TAKE 1 TABLET TWICE DAILY. Quantity: 180 Refills: 1 Ordered: 16-Sep-2021 Marisol Lacey Start : 23-Apr-2021 Active Start: 04-23-2021 take 2 tablets by mo [facility] twice daily Topiramate 25 MG Oral Tablet [...] Quantity: 120 Refills: 2 Ordered: 23-Apr-2021 Lisha PELT INSPECTOR-POWDER SHOVELER, Marisol Start : 23-Apr-2021 Active Triamcinolone (13 [...] region] Episodic Other aftercare (1 source) Other halfway (current) drug therapy; Translations: [OTH ASSISTED CURRENT DRUG THERAPY] Onset: 2 Episodic Other aftercare (1 source) assisted (current) use of anticoagulants; Translations: [ASSISTED CURRNT USE ANTICOAGULANTS] Onset: 2 Episodic Other aftercare (5 sources) Long-term current use of anticoagulant; 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 Weiss, This communication is to inform you that your patient Lyly Quinn DOB 1965, has completed the DSMES program. You can view records in the EMR and any paper documents will be placed in your mailbox. Thank you, MICHELLE Wood, RN, [facility] From: Kimi Weiss DO To: Erica Quiroz RN CDE BSN; Sent: 06/28/2024 07:07:58 EDT Subject: RE: DSMES program Caller Name: LYLY QUINN; Caller Number: H , M ty [facility] Outside Recordson 06-26-2024 Outside Records [id number]#1.00OTGTIFF [facility] Outside Recordson 05-25-2024 Outside Records [id number]#1.00OTGTIFF [facility] Outside Recordson 05-22-2024 Outside Records [id number]#1.00OTGTI FF [facility] ED Note - Physicianon 2024 ED Note - Physician [id number]#1.00OTGTIF F [facility] Alanine aminotransferase [En zymatic activity/volume] in Serum or PlasmaOrdered By: Brian Blanchard on 05-15-2024 ALT [Catalytic activity/Vol] Alanine aminotransferase [Enzymatic activity/volume] in Serum or Plasma [facility] Albumin [Mass/volume] in Ser um or Plasma by Bromocresol green (BCG) dye binding methoOrdered By: Brian Blanchard on 05-15-2024 Albumin BCG dye [Mass/Vol] Albumin [Mass/volume] in Serum or Plasma by Bromocresol green (BCG) dye binding metho 3.5-5.7 [facility] Alkaline phosphatase [Enzyma tic activity/volume] in Serum or PlasmaOrdered By: Brian Blanchard on 01-27-2025 ALP [Catalytic activity/Vol] Alkaline phosphatase [Enzymatic activity/volume] in Serum or Plasma 34-104 [facility] Aspartate aminotransferase [ Enzymatic activity/volume] in Serum or PlasmaOrdered By: Brian Blanchard on 05-15-2024 AST [Catalytic activity/Vol] Aspartate aminotransferase [Enzymatic activity/volume] in Serum or Plasma 13-39 [facility] B-Type Natriuretic Peptideon 05-15-2024 Natriuretic peptide B (Bld) [Mass/Vol] 8.0 pg/mL Normal 5-100 [facility] Comment on above: Result Comment: PERF ORMED BY: [facility] [address] [place] [address] PATHOLOGIST BAIT DIGGER BRANDON AVITIA M.D. Performed By: #### G LULS #### Point of Care testing , Basophils Auto (Bld) [#/Vol] Ordered By: Brian Blanchard on 05-15-2024 Basophils (Bld) [#/Vol] Automated basophil count 0.0-0.2 [facility] Basophils/100 WBC Auto (Bld) Ordered By: Brian Blanchard on 05-15-2024 Basophils/100 WBC (Bld) Automated basophil % . [facility] Bilirubin.total [Mass/volume ] in Serum or PlasmaOrdered By: Brian Blanchard on 05-15-2024 Bilirubin [Mass/Vol] Bilirubin.total [Mass/volume] in Serum or Plasma 0.3-1.0 [facility] Calcium [Mass/volume] in Ser um or PlasmaOrdered By: Brian Blanchard on 05-15-2024 Calcium [Mass/Vol] Calcium [Mass/volume ] in Serum or Plasma High 8.6-10.3 [facility] Carbon dioxide, total [Moles /volume] in Serum or PlasmaOrdered By: Brian Blanchard on 05-15-2024 CO2 [Moles/Vol] Carbon dioxide, tota l [Moles/volume] in Serum or Plasma Low 21.0-31.0 [facility] Chloride [Moles/volume] in S fina or PlasmaOrdered By: Brian Blanchard on 05-15-2024 Chloride [Moles/Vol] Chloride [Moles/vol ume] in Serum or Plasma 98-107 [facility] Complete Blood Count Auto Di ffon 05-15-2024 Basophils (Bld) [#/Vol] 0.1 10*3/uL Normal 0.0-0.2 [facility] Comment on above: Result Comment: PERF ORMED BY: [place] [address] PATHOLOGIST BAIT DIGGER BRANDON AVITIA M.D. Performed By: #### B PUBLIC RELATIONS SPECIALIST, CMP, CBC, MG, CK, HS TROP #### [address] Basophils/100 WBC (Bld) 0.8 % Normal . [facility] Comment on above: Performed By: #### B PUBLIC RELATIONS SPECIALIST, CMP, CBC, MG, CK, HS TROP #### [address] Eosinophils (Bld) [#/Vol] 0.1 10*3/uL Normal 0.0-0.45 [facility] Comment on above: Performed By: #### B PUBLIC RELATIONS SPECIALIST, CMP, CBC, MG, CK, HS TROP #### [address] Eosinophils/100 WBC (Bld) 0.7 % Normal . [facility] Comment on above: Performed By: #### B PUBLIC RELATIONS SPECIALIST, CMP, CBC, MG, CK, HS TROP #### [address] Erythrocyte distribution width (RBC) [Ratio] 13.7 % Normal 12.0-14.8 [facility] Comment on above: Performed By: #### B PUBLIC RELATIONS SPECIALIST, CMP, CBC, MG, CK, HS TROP #### [address] Hematocrit (Bld) [Volume fraction] 45.5 % Normal 38.8-50.0 [facility] Comment on above: Performed By: #### B PUBLIC RELATIONS SPECIALIST, CMP, CBC, MG, CK, HS TROP #### [address] Hemoglobin (Bld) [Mass/Vol] 15.7 g/dL Normal 13.0-17.0 [facility] Comment on above: Performed By: #### B PUBLIC RELATIONS SPECIALIST, CMP, CBC, MG, CK, HS TROP #### [address] Lymphocytes (Bld) [#/Vol] 3.6 10*3/uL Normal 1.00-4.8 [facility] Comment on above: Performed By: #### B PUBLIC RELATIONS SPECIALIST, CMP, CBC, MG, CK, HS TROP #### [address] Lymphocytes/100 WBC (Bld) 37.0 % Normal . [facility] Comment on above: Performed By: #### B PUBLIC RELATIONS SPECIALIST, CMP, CBC, MG, CK, HS TROP #### [address] MCH (RBC) [Entitic mass] 31.0 pg Normal 27.5-35.2 [facility] Comment on above: Performed By: #### B PUBLIC RELATIONS SPECIALIST, CMP, CBC, MG, CK, HS TROP #### [address] MCV (RBC) [Entitic vol] 90.3 fL Normal 83.5-101 [facility] Comment on above: Performed By: #### B PUBLIC RELATIONS SPECIALIST, CMP, CBC, MG, CK, HS TROP #### [address] Mean Corpuscular HGB Conc 34.4 g/dL Normal 32.5-35.6 [facility] Comment on above: Performed By: #### B PUBLIC RELATIONS SPECIALIST, CMP, CBC, MG, CK, HS TROP #### [address] Monocytes (Bld) [#/Vol] 0.9 10*3/uL High 0.0-0.8 [facility] Comment on above: Performed By: #### B PUBLIC RELATIONS SPECIALIST, CMP, CBC, MG, CK, HS TROP #### [address] Monocytes/100 WBC (Bld) 22.03 % High 0.00-20.00 [facility] Comment on above: Result Comment: For adults in ED, MDW > 20.0 may be associated with a higher risk of sepsis during the first 12 hrs of hospital admission Performed By: #### B PUBLIC RELATIONS SPECIALIST, CMP, CBC, MG, CK, HS TROP #### [address] Monocytes/100 WBC (Bld) 9.4 % Normal . [facility] Comment on above: Performed By: #### B PUBLIC RELATIONS SPECIALIST, CMP, CBC, MG, CK, HS TROP #### [address] Neutrophils (Bld) [#/Vol] 5.1 10*3/uL Normal 1.8-7.7 [facility] Comment on above: Performed By: #### B PUBLIC RELATIONS SPECIALIST, CMP, CBC, MG, CK, HS TROP #### [address] Neutrophils/100 WBC (Bld) 52.1 % Normal . [facility] Comment on above: Performed By: #### B PUBLIC RELATIONS SPECIALIST, CMP, CBC, MG, CK, HS TROP #### [address] NRBC% 0.1 /100{WBC} Normal 0-0.5 [facility] Comment on above: Performed By: #### B PUBLIC RELATIONS SPECIALIST, CMP, CBC, MG, CK, HS TROP #### [address] Platelet mean volume (Bld) [Entitic vol] 8.0 fL Normal 6.6-10.1 [facility] Comment on above: Performed By: #### B PUBLIC RELATIONS SPECIALIST, CMP, CBC, MG, CK, HS TROP #### [address] Platelets (Bld) [#/Vol] 264 10*3/uL Normal 150-450 [facility] Comment on above: Performed By: #### B PUBLIC RELATIONS SPECIALIST, CMP, CBC, MG, CK, HS TROP #### [address] RBC (Bld) [#/Vol] 5.04 10*6/uL Normal 3.90-5.60 [facility] Comment on above: Performed By: #### B PUBLIC RELATIONS SPECIALIST, CMP, CBC, MG, CK, HS TROP #### [address] WBC (Bld) [#/Vol] 9.8 10*3/uL Normal 4.1-10.5 [facility] Comment on above: Performed By: #### B PUBLIC RELATIONS SPECIALIST, CMP, CBC, MG, CK, HS TROP #### [address] Comprehensive Metabolic Pane cole 05-15-2024 Albumin [Mass/Vol] 4.8 g/dL Normal 3.5-5.7 [facility] Comment on above: Performed By: #### B PUBLIC RELATIONS SPECIALIST, CMP, CBC, MG, CK, HS TROP #### [address] Albumin/Globulin [Mass ratio] 1.5 {ratio} Normal [facility] Comment on above: Performed By: #### B PUBLIC RELATIONS SPECIALIST, CMP, CBC, MG, CK, HS TROP #### [address] ALP [Catalytic activity/Vol] 83 U/L Normal 34-104 [facility] Comment on above: Performed By: #### B PUBLIC RELATIONS SPECIALIST, CMP, CBC, MG, CK, HS TROP #### [address] ALT [Catalytic activity/Vol] 39 U/L Normal 7-52 [facility] Comment on above: Performed By: #### B PUBLIC RELATIONS SPECIALIST, CMP, CBC, MG, CK, HS TROP #### [address] Anion gap [Moles/Vol] 20.0 mmol/L High 6.0-15.0 [facility] Comment on above: Performed By: #### B PUBLIC RELATIONS SPECIALIST, CMP, CBC, MG, CK, HS TROP #### [address] AST [Catalytic activity/Vol] 28 U/L Normal 13-39 [facility] Comment on above: Performed By: #### B PUBLIC RELATIONS SPECIALIST, CMP, CBC, MG, CK, HS TROP #### [address] Bilirubin [Mass/Vol] 0.5 mg/dL Normal 0.3-1.0 [facility] Comment on above: Performed By: #### B PUBLIC RELATIONS SPECIALIST, CMP, CBC, MG, CK, HS TROP #### [address] Calcium [Mass/Vol] 11.0 mg/dL High 8.6-10.3 [facility] Comment on above: Performed By: #### B PUBLIC RELATIONS SPECIALIST, CMP, CBC, MG, CK, HS TROP #### [address] Chloride [Moles/Vol] 102 mmol/L Normal 98-107 [facility] Comment on above: Performed By: #### B PUBLIC RELATIONS SPECIALIST, CMP, CBC, MG, CK, HS TROP #### [address] CO2 [Moles/Vol] 19.8 mmol/L Low 21.0-31.0 [facility] Comment on above: Performed By: #### B PUBLIC RELATIONS SPECIALIST, CMP, CBC, MG, CK, HS TROP #### [address] Creatinine [Mass/Vol] 0.93 mg/dL Normal 0.70-1.30 [facility] Comment on above: Performed By: #### B PUBLIC RELATIONS SPECIALIST, CMP, CBC, MG, CK, HS TROP #### [address] GFR/1.73 sq M.predicted MDRD (S/P/Bld) [Vol rate/Area] mL/min/{1.73_m2} Normal [facility] Comment on above: Performed By: #### B PUBLIC RELATIONS SPECIALIST, CMP, CBC, MG, CK, HS TROP #### [address] Globulin (S) [Mass/Vol] 3.2 g/dL Normal [facility] Comment on above: Performed By: #### B PUBLIC RELATIONS SPECIALIST, CMP, CBC, MG, CK, HS TROP #### [facility] [address] Glucose [Mass/Vol] 136 mg/dL High 70-100 [facility] Comment on above: Result Comment: [facility] Glucose Reference Range is dependent on time and content of last meal. Glucose of more than 200 mg/dL in a nonstressed, ambulatory subject supports the diagnosis of Diabetes Mellitus. ADA recommended reference range Performed By: #### B PUBLIC RELATIONS SPECIALIST, CMP, CBC, MG, CK, HS TROP #### [address] Potassium [Moles/Vol] 3.8 mmol/L Normal 3.5-5.1 [facility] Comment on above: Result Comment: Hemo lysis is present at a level that could interfere with the result. Contact lab if redraw is required Performed By: #### B PUBLIC RELATIONS SPECIALIST, CMP, CBC, MG, CK, HS TROP #### [facility] [address] Protein [Mass/Vol] 8.0 g/dL Normal 6.4-8.9 [facility] Comment on above: Performed By: #### B PUBLIC RELATIONS SPECIALIST, CMP, CBC, MG, CK, HS TROP #### [facility] [address] Sodium [Moles/Vol] 138 mmol/L Normal 136-145 [facility] Comment on above: Performed By: #### B PUBLIC RELATIONS SPECIALIST, CMP, CBC, MG, CK, HS TROP #### [facility] [address] [place] [address] [place] Urea nitrogen [Mass/Vol] 10 mg/dL Normal 7-25 [facility] Comment on above: Performed By: #### B PUBLIC RELATIONS SPECIALIST, CMP, CBC, MG, CK, HS TROP #### [facility] [address] [place] [id number] [place] Creatine Kinaseon 05-15-2024 CK [Catalytic activity/Vol] 53 U/L Normal 30-223 [facility] Comment on above: Performed By: #### G LULS #### Point of Care testing , Creatine kinase [Enzymatic a ctivity/volume] in Serum or PlasmaOrdered By: Brian Blanchard on 05-15-2024 CK [Catalytic activity/Vol] Creatine kinase [Enzymatic activity/volume] in Serum or Plasma [facility] Creatinine [Mass/volume] in Serum or PlasmaOrdered By: Brian Blanchard on 05-15-2024 Creatinine [Mass/Vol] Creatinine [Mass/v olume] in Serum or Plasma 0.70-1.30 [facility] ECG 12 lead ECGon 05-15-2024 ECG 12 lead ECG [facility] [address] Electrocardiograph Report Signed Patient: Lyly Quinn MR#: [id number] : 1965 Acct:[id number] Age/Sex: 59 / M ADM Date: 05/15/24 Loc: ER Room: Type: [facility] ER Attending Dr: Ordering Provider: [...] Sinus tachycardia Confirmed by Brian BLANCHARD DO ([id number]) on 05/15/2024 6:13:14 PM Referred By: Electronically Signed By: Brian BLANCHARD DO Transcribed By: MUS Signed By Brian Blanchard DO 0 05/15/24 181 Normal [facility] Eosinophils Auto (Bld) [#/Vo l]Ordered By: Brian Blanchard on 05-15-2024 Eosinophils (Bld) [#/Vol] Automated eosinophil count 0.0-0.45 [facility] Eosinophils/100 WBC Auto (Bl d)Ordered By: Brian Blanchard on 05-15-2024 Eosinophils/100 WBC (Bld) Automated eosinophil % . [facility] Erythrocyte distribution wid th Auto (RBC) [Ratio]Ordered By: Brian Blanchard on 05-15-2024 Erythrocyte distribution width (RBC) [Ratio] Erythrocyte distribution width [Ratio] by Automated count 12.0-14.8 [facility] Globulin Calc (S) [Mass/Vol] Ordered By: Brian Blanchard on 05-15-2024 Globulin (S) [Mass/Vol] Serum globulin measurement by calculation (mass/volume) [facility] Glucose [Mass/volume] in Ser um or PlasmaOrdered By: Brian Blanchard on 05-15-2024 Glucose [Mass/Vol] Glucose [Mass/volume ] in Serum or Plasma High 70-100 [facility] Comment on above: ADA recommended refe rence rangeRandom Glucose Reference Range is dependent on time and content of last meal. Glucose of more than 200 mg/dL in a nonstressed, ambulatory subject supports the diagnosis of Diabetes Mellitus. Hematocrit Auto (Bld) [Volum e fraction]Ordered By: Brian Blanchard on 05-15-2024 Hematocrit (Bld) [Volume fraction] Hematocrit [Volume Fraction] of Blood by Automated count 38.8-50.0 [facility] Hemoglobin [Mass/volume] in BloodOrdered By: Brian Blanchard on 05-15-2024 Hemoglobin (Bld) [Mass/Vol] Hemoglobin [Mass/volume] in Blood 13.0-17.0 [facility] INR in Platelet poor plasma by Coagulation assayOrdered By: Brian Blanchard on 05-15-2024 INR Coag (PPP) [Relative time] INR in Platelet poor plasma by Coagulation assay [facility] Comment on above: INR Therapeutic Rang e [...] erythrocytes in Blood by Automated coun 4.1-10.5 [facility] Lymphocytes Auto (Bld) [#/Vo l]Ordered By: Brian Blanchard on 05-15-2024 Lymphocytes (Bld) [#/Vol] Lymphocytes [#/volume] in Blood by Automated count 1.00-4.8 [facility] Lymphocytes/100 WBC Auto (Bl d)Ordered By: Brian Blanchard on 05-15-2024 Lymphocytes/100 WBC (Bld) Lymphocytes/100 leukocytes in Blood by Automated count . [facility] MCH Auto (RBC) [Entitic mass ]Ordered By: Brian Blanchard on 05-15-2024 MCH (RBC) [Entitic mass] MCH [Entitic mass] by Automated count 27.5-35.2 [facility] MCHC Auto (RBC) [Mass/Vol]Or dered By: Brian Blanchard on 05-15-2024 MCHC (RBC) [Mass/Vol] MCHC [Mass/volume] by Automated count 32.5-35.6 [facility] MCV Auto (RBC) [Entitic vol] Ordered By: Brian Blanchard on 05-15-2024 MCV (RBC) [Entitic vol] MCV [Entitic volume] by Automated count 83.5-101 [facility] Magnesiumon 05-15-2024 Magnesium [Mass/Vol] 1.5 mg/dL Low 1.9-2.7 [facility] Comment on above: Result Comment: PERF ORMED BY: [facility] [address] [place] [address] PATHOLOGIST BAIT DIGGER BRANDON AVITIA M.D. Performed By: #### G LUSE #### Point of Care testing , Magnesium [Mass/volume] in S fina or PlasmaOrdered By: Brian lBanchard on 05-15-2024 Magnesium [Mass/Vol] Magnesium [Mass/vol ume] in Serum or Plasma Low 1.9-2.7 [facility] Monocyte distribution width [Entitic volume] in Blood by AutomatedOrdered By: Brian Blanchard on 05-15-2024 Monocyte distribution width Auto (Bld) [Entitic vol] Monocyte distribution width [Entitic volume] in Blood by Automated High 0.00-20.00 [facility] Comment on above: For adults in ED, MD W > 20.0 may be associated with a higher risk of sepsis during the first 12 hrs of hospital admission Monocytes Auto (Bld) [#/Vol] Ordered By: Brian Blanchard on 05-15-2024 Monocytes (Bld) [#/Vol] Automated blood monocyte count High 0.0-0.8 [facility] Monocytes/100 WBC Auto (Bld) Ordered By: Brian Blanchard on 05-15-2024 Monocytes/100 WBC (Bld) Automated monocyte % . [facility] Natriuretic peptide B [Mass/ Vol]Ordered By: Brian Blanchard on 05-15-2024 Natriuretic peptide B (Bld) [Mass/Vol] BNP ser/plas 5-100 [facility] Neutrophils Auto (Bld) [#/Vo l]Ordered By: Brian Blanchard on 05-15-2024 Neutrophils (Bld) [#/Vol] Neutrophils [#/volume] in Blood by Automated count 1.8-7.7 [facility] Neutrophils/100 WBC Auto (Bl d)Ordered By: Brian Blanchard on 05-15-2024 Neutrophils/100 WBC (Bld) Automated neutrophil % . [facility] No Panel InformationOrdered By: Brian Blanchard on 05-15-2024 Blood Gas Critical Value See comment [facility] Comment on above: Critical Value vasquez d on: 05/15/2024 at 13:39 Blood Gas Sample Site Venous Fir [facility] FiO2 21 % [facility] Venous Blood Base Excess 0.3 mmol/L -3.0-3.0 [facility] Venous Blood Oxygen Content 1.8 mmol/L Low 6.6-9.7 [facility] Venous Blood Oxygen Saturation 19.6 % Critically low 73.0-76.0 [facility] Venous Blood Partial Pressure CO2 29.8 mm[Hg] Low 38.0-50.0 [facility] Venous Blood Partial Pressure O2 13.5 mm[Hg] Critically low 35.0-45.0 [facility] Venous Blood pH 7.50 High 7.32-7.43 [facility] Estimated GFR (CKD-EPI) > 60.0 mL/Min [facility] Creatinine Clearance (Chem N/A [facility] Nucleated erythrocytes [Pres ence] in Blood by Automated countOrdered By: Brian Blanchard on 05-15-2024 Nucleated RBC Auto Ql (Bld) Nucleated erythrocytes [Presence] in Blood by Automated count 0-0.5 [facility] Partial Thromboplastin Timeo n 05-15-2024 aPTT Coag (Bld) [Time] 35.8 s Normal 25.1-36.5 [facility] Comment on above: Result Comment: A he matocrit value greater than 55% may lead to inaccurate results in coagulation testing. Patients having hematocrit values >55% require a special collection tube for coagulation studies. Please contact the laboratory at [phone] for redraw instructions. PERFORMED BY: [place] [address] PATHOLOGIST BAIT DIGGER BRANDON AVITIA M.D. Performed By: #### P TT, PT #### [address] Platelet mean volume Auto (B ld) [Entitic vol]Ordered By: Brian Blanchard on 05-15-2024 Platelet mean volume (Bld) [Entitic vol] Platelet mean volume [Entitic volume] in Blood by Automated count 6.6-10.1 [facility] Platelets Auto (Bld) [#/Vol] Ordered By: Brian Blanchard on 05-15-2024 Platelets (Bld) [#/Vol] Platelets [#/volume] in Blood by Automated count 150-450 [facility] Potassium [Moles/volume] in Serum or PlasmaOrdered By: Brian Blanchard on 05-15-2024 Potassium [Moles/Vol] Potassium [Moles/v olume] in Serum or Plasma 3.5-5.1 [facility] Comment on above: Hemolysis is present at a level that could interfere with the result.Contact lab if redraw is required Protein [Mass/volume] in Ser um or PlasmaOrdered By: Brian Blanchard on 05-15-2024 Protein [Mass/Vol] Protein [Mass/volume ] in Serum or Plasma 6.4-8.9 [facility] Prothrombin Time INRon 05-15 INR Coag (PPP) [Relative time] 1.6 {INR} Normal [facility] Comment on above: Result [...] Performed By: #### P TT, PT #### [facility] [address] [id number] [facility] PT Coag (PPP) [Time] 18.5 s High 9.0-12.9 [facility] Comment on above: Result Comment: A he matocrit value greater than 55% may lead to inaccurate results in coagulation testing. Patients having hematocrit values >55% require a special collection tube for coagulation studies. Please contact the laboratory at [phone] for redraw instructions. Performed By: #### P TT, PT #### [facility] [address] [id number] [facility] Prothrombin time (PT)Ordered By: Brian Blanchard on 05-15-2024 PT Coag (PPP) [Time] Prothrombin time (PT) High 9.0- 12.9 [facility] Comment on above: A hematocrit value g reater than 55% may lead to inaccurate results in coagulation testing. Patients having hematocrit values >55% require a special collection tube for coagulation studies. Please contact the laboratory at [phone] for redraw instructions. RBC Auto (Bld) [#/Vol]Ordere d By: Brian Blanchard on 05-15-2024 RBC (Bld) [#/Vol] Erythrocytes [#/volu me] in Blood by Automated count 3.90-5.60 [facility] Serum or plasma albumin/glob ulin mass ratioOrdered By: Brian Blanchard on 05-15-2024 Albumin/Globulin [Mass ratio] Serum or plasma albumin/globulin mass ratio [facility] Serum or plasma anion gap de terminationOrdered By: Brian Blanchard on 05-15-2024 Anion gap [Moles/Vol] Serum or plasma an ion gap determination High 6.0-15.0 [facility] Sodium [Moles/volume] in Ser um or PlasmaOrdered By: Brian Blanchard on 05-15-2024 Sodium [Moles/Vol] Sodium [Moles/volume ] in Serum or Plasma 136-145 [facility] Troponin I High Sensitivityo n 05-15-2024 Troponin I High Sensitivity 4 Normal 0-20 [facility] Comment on above: Result Comment: The Troponin units of report have been changed to meet the Chest Pain Accreditation requirement, element EC5.M1l2. Troponin units are changed from pg/ml to ng/L. Also, the decimal is removed and results are in whole numbers. PERFORMED BY: [place] [id number] PATHOLOGIST BAIT DIGGER BRANDON AVITIA M.D. Performed By: #### G LULS #### Point of Care testing , Troponin I High Sensitivity 4 Normal 0-20 [facility] Comment on above: Result Comment: The Troponin units of report have been changed to meet the Chest Pain Accreditation requirement, element EC5.M1l2. Troponin units are changed from pg/ml to ng/L. Also, the decimal is removed and results are in whole numbers. PERFORMED BY: [address] [address] PATHOLOGIST BAIT DIGGER BRANDON AVITIA M.D. Performed By: #### G LULS #### Point of Care testing , Troponin I.cardiac [Mass/vol ume] in Serum or Plasma by Detection limit <= 0.01 ng/Ordered By: Brian Blanchard on 05-15-2024 Troponin I.cardiac DL <= 0.01 ng/mL [Mass/Vol] Troponin I.cardiac [Mass/volume] in Serum or Plasma by Detection limit <= 0.01 ng/ 0-20 [facility] Comment on above: The Troponin units o f report have been changed to meet the Chest Pain Accreditation requirement, element EC5.M1l2. Troponin units are changed from pg/ml to ng/L. Also, the decimal is removed and results are in whole numbers. Urea nitrogen [Mass/volume] in Serum or PlasmaOrdered By: Brian Blanchard on 05-15-2024 Urea nitrogen [Mass/Vol] Urea nitrogen [Mass/volume] in Serum or Plasma 11-10 [facility] Venous Blood GasOrdered By: Brian Blanchard on 05-15-2024 CO2 [Moles/Vol] 23.4 mmol/L Low 24.0-29.0 [facility] Comment on above: Performed By: #### V BG #### Point of Care testing , HCO3 (Bld) [Moles/Vol] 22.5 mmol/L Low 23.0-29.0 [facility] Comment on above: Performed By: #### V BG #### Point of Care testing , Venous Blood Gason Respiratory Critical Normal [facility] Comment on above: Result Comment: Crit ical Value called on: 05/15/2024 at 13:39 PERFORMED BY: [facility] [address] [place] [address] PATHOLOGIST BAIT DIGGER BRANDON AVITIA M.D. Performed By: #### V BG #### Point of Care testing , VBG Base Excess 0.3 mmol/L Normal -3.0-3.0 [facility] Comment on above: Performed By: #### V BG #### Point of Care testing , VBG Draw Site Venous Normal [facility] Comment on above: Performed By: #### V BG #### Point of Care testing , VBG Frac Inspired O2 21 % Normal [facility] Comment on above: Performed By: #### V BG #### Point of Care testing , VBG O2 Content 1.8 mmol/L Low 6.6-9.7 [facility] Comment on above: Performed By: #### V BG #### Point of Care testing , VBG Oxygen Saturation 19.6 % Off scale low 73.0-76.0 [facility] Comment on above: Performed By: #### V BG #### Point of Care testing , VBG PCO2 29.8 mm[Hg] Low 38.0-50.0 [facility] Comment on above: Performed By: #### V BG #### Point of Care testing , VBG PH Venous PH 7.50 High 7.32-7.43 [facility] Comment on above: Performed By: #### V BG #### Point of Care testing , VBG PO2 13.5 mm[Hg] Off scale low 35.0-45.0 [facility] Comment on above: Performed By: #### V BG #### Point of Care testing , WBC Auto (Bld) [#/Vol]Ordere d By: Brian Blanchard on 05-15-2024 WBC (Bld) [#/Vol] Leukocytes [#/volume ] in Blood by Automated count 4.1-10.5 [facility] X-ray reportOrdered By: David Dong on 05-15-2024 Study report [place] [id number] XRay Report Signed Patient: Lyly Quinn MR#: [id number] : 1965 Acct:[id number] Age/Sex: 59 / M ADM Date: 5 Loc: ER Room: Type: [facility] ER Attending Dr: Copies to: Brian Blanchard [...] ABNORMALITY. Impression dictated by: Elvin Dong Jr., D.O.05/15/2024 1:50 PM Dictation Location: [place] [address] Transcribed By: RADHA 05/15/24 1350 Dictated By: Elvin Dong Jr, DO 05/15/24 1350 Signed By: 05/15/24 1350 [facility] XR chest 2V*on 05-15-2024 XR chest 2V* [facility] Main [address] [address] XRay Report Signed Patient: Lyly Quinn MR#: [id number] : 1965 Acct:[id number] Age/Sex: 59 / M ADM Date: 05/15/24 Loc: ER Room: Type: [facility] ER Attending Dr: Copies to: Brian Blanchard [...] ABNORMALITY. Impression dictated by: Elvin Dong Jr., D.O.05/15/2024 1:50 PM Dictation Location: [place] [address] Transcribed By: [facility] 05/15/24 1350 Dictated By: Elvin Dong Jr, DO 05/15/24 1350 Signed By: 05/15/24 1350 Normal [facility] aPTT in Platelet poor plasma by Coagulation assayOrdered By: Brian Blanchard on 05-15-2024 aPTT Coag (PPP) [Time] Activated partial thromboplastin time (aPTT) in platelet poor plasma by coagulation a 25.1-36.5 [facility] Comment on above: A hematocrit value g reater than 55% may lead to inaccurate results in coagulation testing. Patients having hematocrit values >55% require a special collection tube for coagulation studies. Please contact the laboratory at [phone] for redraw instructions. Coding Summaryon 05-12-2024 Coding Summary HTMLBase 64 VvctsvxqJUf2sDs+PGhlYWQ+PE 6UHMJdO26sjUMnuO6jZ7MSLZfB RltvDGQNCJcTDsXrbmSqZA1omI NjZXJu IC8+SJ5gHYJwVduyyQYgd7L1bM I3F82qxy3lTZfauZV6MWMzNiDu ycyfx8qxdBe5GOcmRekyZqIt PDYiaH59VMK3fA82Pz15vRRcqC Pju4kjbAl0FsPvZYRnFXU2zOso JWqpa7DeATCnJ24caYOgo8Y9 YBJpaNhzmKYjDfWklRV4sS8qBD urhqsvx0fulcpmAtg0vm27dUGq t6M1gGX5O8TuvxH2NKGxpIKf MdlknNZDzV1itfpef8qlphrfZe DzOTRhIDr9BAy3OTOilGowKtBg ND75TEW0JVPbhgMsI9BjFNAu eEaqVeP0s5B9Qg9IN4XPAkvmF7 VNTUFSWTwvdGQ+AV08qk47C9Uz WzvfKxv4FGUiZCI9wFG6bJ3p QVNzKWjsj4W0jXH5R0NppcKasr 5sm9zcCCDaCDtmI17seWAnt3C7 VYPywRF4ISZtzVrgIuDxbM27 Oyc+MMPwvCejo3BiRlltj0nle8 ftaPi6YkgwHWUeqgAnbQasKLQ9 w7DdBu8vOTLudND3fLI1cG5h KbPyQfL0AQqeH351XfRqyDZgXs mvO41oF5AyoGF+VPQdYrj1TLAj hXzkRU4rF8MnOIAzwmaovWZi vYhoTY8nUASnoisoGJRhgG5sFR KoM1f4CeOdLbZ0PSslN5CdIYVj yatoWd50mG0hPjBaRuD7JLzm E6UzdgR6IYAtiUEfDHuuPZN0Q7 9im9Q4EDJeHNNvOQE2pKU3gS6t bGlnbjogbGVmdDsgdmVydGlj CHrmEQpkD907WWIzjUvzPyUsQD luZyBEYXRlOiAgMDEvMjQvMjAy NTwvdGQ+TQGyQDZ0tMlsRSDg nSIiBIqlOa5btGgyhWtqGY5cYR MwysshKUDinD6qEABroSYccPdz FY4mOKAmlotzv084YgSgVSW2 WFChzAOjZ3VxgG9cJqBiPVLaAI QsR0UfaEWfWDwdX352FBnmUiE9 MJMjulNhC8YyZJMbtJjgMbT4 s5J0Bt2Io9OgobirS8BxkWWiId WbOzgvXPl1C7BcFdpptCY+PC90 PYNuOO05AKc8PQU3hSfcCIrg NMBmQ7OyzI7lVyXgTBTpVLPyCe c+PHRhYmxlIHdpZHRoPScxMDAl StEdbBbcLA5nJf0lPZIxRRUz fWqbtSGyBkAoi8gdQAQnKCqjPY 7hbXmvD0XhcDB0HPTgn5f1Om28 G02dD4SlgWP+DIXjiPW5mKD3 aO1vMeGvVuT2NIsiT905SoKsvA NoIqsuw1cdu7exlLx4QqN5ZKPc shBcnSqvPAW9y6AdAl91B31o IHdpZHRoPSIxNSUiIHZhbGlnbj 8zvX5uQr1+CMXmyUQ5xDE7eA3o ZbRqWjR6XDcgH076RrYjvFFl Uefcs9yjg6obrVf4CcVeVBJize RmkMbdQNR4v2FcTp81Q3TclUgp h8RxIyv5ko26nXQps8A5oQF6 P6NqWIGrwwzqwKCyfSidRQ8tJP YnptovPSKenK7vBERhC7r0OlRr PlW8KJnfZ4MdymW1ZETxsDNq SHErgAUHaY6poppxv7hczuucAy LwIEXjQDw7PMk6EVUgoJqhPwGm LLC9VuZ4NOQ5yIBicK8ouVhp qwiurM9jRpt+SBO5tZCagJABPF 1lOjwvdGQ+YUUqAXT8fCsmGZfa JKUnzV9eWQGiT1m2VsFjTpG6 BVptL3FuelD3HBAgtTWmRDKxxP VUqO6jbkecj2xvpanbGaXlKWEg CJd3SEd3KKLzgZwlPvVdQBM2 BeT7TZF3lTMugH2fvEjboatzrK 9wOyc+ButifJstADR8FKi8X3Zb Mbq9OPVjbDbuTZ5lhNWgKQvi Nb5hhTudePzhST1qJGSaefqez4 28XaQzv9erJKJyzUYdAHaoTYS5 C94fu2X8IGEwKWEmFEH2qIW2 bI0liUjlnkrmnPYzjQvfntPhxR mdMBrcNAffU682NZPwlMzdPnKl HDw7D5KoWoz5PTUwgEpgJV7r mWNdIVyyLx0tvPwwaJqqLQ0qHA Soyjcdu159AhZvy7chCTRrxQGe FPiaNVK9W70ww4Q2BITcGXUi MAK0uGD6mF5mwWjzzdddeOQksS cxyaLmfSwdYKnsUNpeF289BAZv zXutXpDfpEh3Y7LaIdp0TCFf hGchVS9oaTShJPnnFx2ovPtanI sqNW9mJQMnxpmbt005UcRys8vs QDTknKIwBZqjAIH1E65gv9F9 HEZvEYLvOMD6hJQ5jC6miFvrcf ogbGVmdDsgdmVydGljYWwtYWxp Y317VBIzeMpdCmHvtOlaolMk NWzlWVw9S9JuWiobfYW+PC90YW DuIQ97iMUbeSZzo5reeTr2EzTz YQMzJQG4dIyrWWtmj9OjCHAb O48mhTOsi4Q3JCJkmPsyoFPoPb SdqWZ7mD6xUZqejzzqy0digdbw Ufjid9zlid88eE71X46jUBjp DVLlIIPeGGFmRQPzaJepoy6gzY 9wIi8+EQRwiXS8uRK3lE9lOVRq SpJ2GVypN228HhUmrVTtPnij m4znd3pmaLv9XdQ4WWYjrbPvzG wbRKT3c1FwTk27U89qHTdhRCLb EEFsDDVvOMPuxYjdso4wyV5j Ii8+CIUjjZR5xDF2sL7oOnEgDw D9NKmcW100EwXurIWpIcwrR72i Z1LygYV+DVHhApd1CXFvaWej XN8npFTrIApcQh4eTRP6NhBvIj RmTWnsH3WyGCDocgkrezbteUZ6 OCCyZWTwtU42Zg9bkSnuYUGc yFZAnF3nwoidz9xzqvkvLcHeZP YsJLg3MSp3XSJxaCttYdLpPTP0 PuP9GWK6sXEraE2txRwxfkch zB4kX4GpQBHivnecZe10vQ8lEk ZzRzU9PIijTls+SazUF3EvGJER HG8cF9lIWIlCPSwpoQK+PHRk CVU0oYrfCMkvBBLiwF9wWFCkG7 z1YpLjXdN5QErcF2ZxDQSnjjan Gt31iJ2cSsGyYfF3YUafF9Ie flP5XFChuECeJRrkEXZ3X31hf4 C6CXFaIQZkORW2vNE2bP1utBfs bjogbGVmdDsgdmVydGljYWwt NYegN968WPJvtDrmRpGaMeK2Dk F4BtX3J3YlChi7QYBysLupEN7d iLZtZNthMz9nrYbstWmvAK8e TFPlyykvGUIcgO8vJIPqhSZtfE wtCL3tBSRwgxgyl197UpPnZRW9 PIIrqSNyT1LyiE1yNeCsZVDv NOUjL6BlkCOwNSsiT805YAroFn P1IJNfybEgS0IpFZAgnZolEhO9 h5D1Wp43SDZIIAFesuvlyXZ+ CJOpAUV7aTciXKhbVBFlnS8lWO OpD1r5KbRyUkB8OMqpP1BpSGFr freoHd80uB7xIvQsHqU2VUms P6LrvaS0NANttEYjPMndVUC6U5 1xh8A6VBZbOLRjKPZ6qPX2sG4h bGlnbjogbGVmdDsgdmVydGlj VIqqFJepS891JIAnmDnoCr4KZB Y7U1CbUqz6KHZgjMsmOF9cuLXg QNluBv6oxPgvuQmtKW6vNQAn dsbkVQWcwY3zZCFcqGPgwBfdBM 0tYQLkvrdwt547CdNcIJT5JDNl rZEyU6SrqV6sFiDzAAGyEOQy F3RssRMqHJheC086GTphHgI7ZF TatzFpE2OsGHYdwMvgJbR8i2W2 Lp0ULRrjjBV+TR07nb34H8Nt QsbgWzz1QZKcJLH5yNY1gL8wPY PjGCmki2O6pKF7F5PrisBpwy5e y0eaFLApUQjqF99bgZStx1C9 GRIypTY6YMGnkQvhUiEjlY30Mt c+LOOsdNflv8OeTqurv0gix2he qNx1BiYhANUmirCacTbyLYO7 z7YvEi37N29iYAvhGVBqBTEwUU NmJRJftKleyd7coC0iYy7+PGNv kVN0wBN9zK9nPfTlItQ5OQcw M410IeOiaUHoGvfqg5msk6yohS u1ZyUdQVRrufObaWtoVGA0g0Dg Ig52I9JtnQpvk0YbOfm2uv46 xBFtv0S4hRZ9V7HuZATszpzjfY RxhTmtHJ1wJABoemmxPMJyyK2e IMWvH0q8NlKbJzA6WIhbZ9Ug azG9BXYqpSZfFHCehMYQnD2oua ghx9egamctAsOvCRVuNEy8GNj2 BHAvrEflJcWlVTR6EwG6DIH5 kJUooV5svOdskuallD5kZpn+UG l9c9mkhGXwUV9oeFY6GF26VH03 dCDvs9F4cPY7C2KjWHWsqrpj iprowJE1NFWjSVWmcR53Fn2ykN ihZx7rBICnMLA9PLPjnEVtZ4Cd xI4aOlQfZIMrKLGoO4GhbYJe HRhtU237WInpNzF6AGRhfpRsC0 ZjSQRycIudHxI3t1M1Bi2TMI14 OG87PV77nODjk7L0eJD9F9Of CZTszbosdtrbqTM5WCQkLEKasO 33Bp4nxKzjBf5zOTHoVHJ8EGHi jNKrL9OcgS3aJkPzBTIuLYOq Y9QkhNHwUDpeH382GQrkHzY7BC YluwGzV5WlNBFpkAinNxR5j9V9 Vv8ASc89HW74FS29rFIvd5X4 uDN9C2MmPMSmnpvcfjqgiNE4FS PmCHVdiH34Bb9hzIumZq6tRVJq RCM5KHKcpZRpC2SqfH2hKmJf MWFsFFQnC2AygIUbGPpnX418EC syZeX7HOHsrmYeT9DbJNWjkTzv VxD2r1J0Xp7QHAwqimz9D0Hf PjwvdHI+XA33ELDwRT74bDPdcD Zdt9bvqXy7PbVtINUyTUB0cOvn FSlou9FzYMIbV14wuSNsq9N5 IGN (more content not included)... [facility] Consent Formson 05-12-2024 Consent Forms [id number] Normal [facility] BUN/Creat Ratioon 05-10-2024 eGFR Non AA >60 Invalid Interpretation Code [facility] Comment on above: Performed By: #### 1 [id number] ####[facility] (DEFAULT)[address] [place] [address] eGFR AA >60 Invalid Interpretation Code [facility] Comment on above: Performed By: #### 1 [id number] ####[facility] (DEFAULT)[address] [place] [address] Creatinine [Mass/Vol] 0.81 mg/dL Low 0.90-1.30 [facility] Comment on above: Performed By: #### 1 [id number] ####[facility] (DEFAULT)[address] [place] [address] Urea nitrogen [Mass/Vol] 10 mg/dL Normal 8-26 [facility] Comment on above: Performed By: #### 1 [id number] ####[facility] (DEFAULT)[address] [place] [address] Urea nitrogen/Creatinine [Mass ratio] 12.3 mg/mg Normal 4.6-16.2 [facility] Comment on above: Performed By: #### 1 [id number] ####[facility] (DEFAULT)[address] [place] [address] PE Chest w/ Contraston CT PE [...] MD 05/10/24 4:36 pm Technologist: LT PATRICK Normal [facility] Rad - Other Radiology Report on 05-10-2024 Rad - Other Radiology Report [id number] Normal [facility] Reminder Messageson 05-10-19 Reminder Messages - From: Kimi Weiss DO To: [employer] [facility] Sent: 05/10/2024 16:45:39 EST Show up: 05/10/2024 16:46:00 EST Subject: Results Follow Up Due Date/Time: 05/11/2024 16:45:00 EST normal I will speak to Lyly Results: Date Result Type Result Name 05/10/2024 16:[address] PE Chest w/ Contrast Normal [facility] Reminder Messages - From: Kimi Weiss DO To: XTWIP ([facility]); Sent: 05/10/2024 16:17:16 EST Show up: [...] 05/10/2024 15:36 eGFR Non AA >60 mL/min/1.73m2 Normal [facility] Stress Teston 04-18-2024 Stress Test [id number]#1.00OTGTIFF [facility] Outside Recordson 04-17-2024 Outside Records [id number]#1.00OTGTIFF [facility] Rad - Catheterization Lab Re porton 04-17-2024 Rad - Catheterization Lab Report [id number]#[facility] Basophils Auto (Bld) [#/Vol] Ordered By: Jacinto Livingston on 04-13-2024 Basophils (Bld) [#/Vol] Automated basophil count 0.0-0.2 [facility] Basophils/100 WBC Auto (Bld) Ordered By: Jacinto Livingston on 04-13-2024 Basophils/100 WBC (Bld) Automated basophil % . [facility] Blood Urea Nitrogenon 2023 Urea nitrogen [Mass/Vol] 13 mg/dL Normal 7-25 [facility] Comment on above: Performed By: #### G ENRICO #### Point of Care testing , Carbon dioxide, total [Moles /volume] in Serum or PlasmaOrdered By: Jacinto Livingston on 04-13-2024 CO2 [Moles/Vol] Carbon dioxide, tota l [Moles/volume] in Serum or Plasma 21.0-31.0 [facility] Chloride [Moles/volume] in S fina or PlasmaOrdered By: Jacinto Livingston on 04-13-2024 Chloride [Moles/Vol] Chloride [Moles/vol ume] in Serum or Plasma 98-107 [facility] Coagulation Profileon 2023 aPTT Coag (Bld) [Time] 27.1 s Normal 25.1-36.5 [facility] Comment on above: Result Comment: A he matocrit value greater than 55% may lead to inaccurate results in coagulation testing. Patients having hematocrit values >55% require a special collection tube for coagulation studies. Please contact the laboratory at [phone] for redraw instructions. PERFORMED BY: [place] [id number] [place] [address] PATHOLOGIST BAIT DIGGER BRANDON AVITIA M.D. Performed By: #### G LULS #### Point of Care testing , INR Coag (PPP) [Relative time] 1.0 {INR} Normal [facility] Comment on above: Result [...] (PPP) [Time] 11.2 s Normal 9.0-12.9 [facility] Comment on above: Result Comment: A he matocrit value greater than 55% may lead to inaccurate results in coagulation testing. Patients having hematocrit values >55% require a special collection tube for coagulation studies. Please contact the laboratory at [phone] for redraw instructions. Performed By: #### G LULS #### Point of Care testing , Complete Blood Count Auto Di ffon 04-13-2024 Basophils (Bld) [#/Vol] 0.0 10*3/uL Normal 0.0-0.2 [facility] Comment on above: Result Comment: PERF ORMED BY: [facility] [address] [place] [address] PATHOLOGIST BAIT DIGGER BRANDON AVITIA M.D. Performed By: #### G LULS #### Point of Care testing , Basophils/100 WBC (Bld) 0.6 % Normal . [facility] Comment on above: Performed By: #### G LULS #### Point of Care testing , Eosinophils (Bld) [#/Vol] 0.1 10*3/uL Normal 0.0-0.45 [facility] Comment on above: Performed By: #### G LULS #### Point of Care testing , Eosinophils/100 WBC (Bld) 1.9 % Normal . [facility] Comment on above: Performed By: #### G LULS #### Point of Care testing , Erythrocyte distribution width (RBC) [Ratio] 13.0 % Normal 12.0-14.8 [facility] Comment on above: Performed By: #### G LULS #### Point of Care testing , Hematocrit (Bld) [Volume fraction] 40.6 % Normal 38.8-50.0 [facility] Comment on above: Performed By: #### G LULS #### Point of Care testing , Hemoglobin (Bld) [Mass/Vol] 13.8 g/dL Normal 13.0-17.0 [facility] Comment on above: Performed By: #### G LULS #### Point of Care testing , Lymphocytes (Bld) [#/Vol] 2.5 10*3/uL Normal 1.00-4.8 [facility] Comment on above: Performed By: #### G LULS #### Point of Care testing , Lymphocytes/100 WBC (Bld) 37.3 % Normal . [facility] Comment on above: Performed By: #### G LULS #### Point of Care testing , MCH (RBC) [Entitic mass] 30.9 pg Normal 27.5-35.2 [facility] Comment on above: Performed By: #### G LULS #### Point of Care testing , MCV (RBC) [Entitic vol] 90.6 fL Normal 83.5-101 [facility] Comment on above: Performed By: #### G LULS #### Point of Care testing , Mean Corpuscular HGB Conc 34.1 g/dL Normal 32.5-35.6 [facility] Comment on above: Performed By: #### G LULS #### Point of Care testing , Monocytes (Bld) [#/Vol] 0.5 10*3/uL Normal 0.0-0.8 [facility] Comment on above: Performed By: #### G LULS #### Point of Care testing , Monocytes/100 WBC (Bld) 8.1 % Normal . [facility] Comment on above: Performed By: #### G LULS #### Point of Care testing , Neutrophils (Bld) [#/Vol] 3.5 10*3/uL Normal 1.8-7.7 [facility] Comment on above: Performed By: #### G LULS #### Point of Care testing , Neutrophils/100 WBC (Bld) 52.1 % Normal . [facility] Comment on above: Performed By: #### G LULS #### Point of Care testing , NRBC% 0.3 /100{WBC} Normal 0-0.5 [facility] Comment on above: Performed By: #### G LULS #### Point of Care testing , Platelet mean volume (Bld) [Entitic vol] 7.6 fL Normal 6.6-10.1 [facility] Comment on above: Performed By: #### G LULS #### Point of Care testing , Platelets (Bld) [#/Vol] 229 10*3/uL Normal 150-450 [facility] Comment on above: Performed By: #### G LULS #### Point of Care testing , RBC (Bld) [#/Vol] 4.48 10*6/uL Normal 3.90-5.60 [facility] Comment on above: Performed By: #### G LULS #### Point of Care testing , WBC (Bld) [#/Vol] 6.7 10*3/uL Normal 4.1-10.5 [facility] Comment on above: Performed By: #### G LULS #### Point of Care testing , Consultation/Specialist Note on 04-13-2024 Consultation/Specialis t Note [id number] Normal [facility] Creatinineon 04-13-2024 Creatinine [Mass/Vol] 0.80 mg/dL Normal 0.70-1.30 [facility] Comment on above: Performed By: #### G LULS #### Point of Care testing , Creatinine Clr Calc Pharmacy 134.56 Normal [facility] Comment on above: Result Comment: PERF ORMED BY: [facility] [place] [address] PATHOLOGIST BAIT DIGGER BRANDON AVITIA M.D. Performed By: #### G LULS #### Point of Care testing , GFR/1.73 sq M.predicted MDRD (S/P/Bld) [Vol rate/Area] mL/min/{1.73_m2} Normal [facility] Comment on above: Performed By: #### G LULS #### Point of Care testing , Creatinine [Mass/volume] in Serum or PlasmaOrdered By: Jacinto Livingston on 04-13-2024 Creatinine [Mass/Vol] Creatinine [Mass/v olume] in Serum or Plasma 0.70-1.30 [facility] Electrolyteson 04-13-2024 Anion gap [Moles/Vol] 11.2 mmol/L Normal 6.0-15.0 [facility] Comment on above: Performed By: #### G LULS #### Point of Care testing , Chloride [Moles/Vol] 104 mmol/L Normal 98-107 [facility] Comment on above: Performed By: #### G LULS #### Point of Care testing , CO2 [Moles/Vol] 25.2 mmol/L Normal 21.0-31.0 [facility] Comment on above: Performed By: #### G LULS #### Point of Care testing , Potassium [Moles/Vol] 4.4 mmol/L Normal 3.5-5.1 [facility] Comment on above: Result Comment: Hemo lysis is present at a level that could interfere with the result. Contact lab if redraw is required Performed By: #### G LULS #### Point of Care testing , Sodium [Moles/Vol] 136 mmol/L Normal 136-145 [facility] Comment on above: Performed By: #### G LULS #### Point of Care testing , Eosinophils Auto (Bld) [#/Vo l]Ordered By: Jacinto Livingston on 04-13-2024 Eosinophils (Bld) [#/Vol] Automated eosinophil count 0.0-0.45 [facility] Eosinophils/100 WBC Auto (Bl d)Ordered By: Jacinto Livingston on 04-13-2024 Eosinophils/100 WBC (Bld) Automated eosinophil % . [facility] Erythrocyte distribution wid th Auto (RBC) [Ratio]Ordered By: Jacinto Livingston on 04-13-2024 Erythrocyte distribution width (RBC) [Ratio] Erythrocyte distribution width [Ratio] by Automated count 12.0-14.8 [facility] Glucose Glucometer (BldC) [M ass/Vol]Ordered By: Leslie Sanchez on 04-13-2024 Glucose [Mass/Vol] Capillary blood gluc ose measurement by glucometer (mass/volume) [facility] Comment on above: Random Glucose Refer ence Range is dependent on time and content of last meal. Glucose of more than 200 mg/dL in a nonstressed, ambulatory subject supports the diagnosis of Diabetes Mellitus. Glucose Poct Glucometerson 1 06-14-2023 Glucose [Mass/Vol] 191 mg/dL Normal [facility] Comment on above: Result Comment: [place] om Glucose Reference Range is dependent on time and content of last meal. Glucose of more than 200 mg/dL in a nonstressed, ambulatory subject supports the diagnosis of Diabetes Mellitus. PERFORMED BY: [facility] [address] [place] [address] PATHOLOGIST BAIT DIGGER BRANDON AVITIA M.D. Performed By: #### G ENIRCO #### Point of Care testing , Hematocrit Auto (Bld) [Volum e fraction]Ordered By: Jacinto Livingston on 04-13-2024 Hematocrit (Bld) [Volume fraction] Hematocrit [Volume Fraction] of Blood by Automated count 38.8-50.0 [facility] Hemoglobin [Mass/volume] in BloodOrdered By: Jacinto Livingston on 04-13-2024 Hemoglobin (Bld) [Mass/Vol] Hemoglobin [Mass/volume] in Blood 13.0-17.0 [facility] INR in Platelet poor plasma by Coagulation assayOrdered By: Jacinto Livingston on 04-13-2024 INR Coag (PPP) [Relative time] INR in Platelet poor plasma by Coagulation assay [facility] Comment on above: INR Therapeutic Rang e [...] erythrocytes in Blood by Automated coun 4.1-10.5 [facility] Lymphocytes Auto (Bld) [#/Vo l]Ordered By: Jacinto Livingston on 04-13-2024 Lymphocytes (Bld) [#/Vol] Lymphocytes [#/volume] in Blood by Automated count 1.00-4.8 [facility] Lymphocytes/100 WBC Auto (Bl d)Ordered By: Jacinto Livingston on 04-13-2024 Lymphocytes/100 WBC (Bld) Lymphocytes/100 leukocytes in Blood by Automated count . [facility] MCH Auto (RBC) [Entitic mass ]Ordered By: Jacinto Livingston on 04-13-2024 MCH (RBC) [Entitic mass] MCH [Entitic mass] by Automated count 27.5-35.2 [facility] MCHC Auto (RBC) [Mass/Vol]Or dered By: Jacinto Livingston on 04-13-2024 MCHC (RBC) [Mass/Vol] MCHC [Mass/volume] by Automated count 32.5-35.6 [facility] MCV Auto (RBC) [Entitic vol] Ordered By: Jacinto Livingston on 04-13-2024 MCV (RBC) [Entitic vol] MCV [Entitic volume] by Automated count 83.5-101 [facility] Monocytes Auto (Bld) [#/Vol] Ordered By: Jacinto Livingston on 04-13-2024 Monocytes (Bld) [#/Vol] Automated blood monocyte count 0.0-0.8 [facility] Monocytes/100 WBC Auto (Bld) Ordered By: Jacinto Livingston on 04-13-2024 Monocytes/100 WBC (Bld) Automated monocyte % . [facility] Neutrophils Auto (Bld) [#/Vo l]Ordered By: Jacinto Livingston on 04-13-2024 Neutrophils (Bld) [#/Vol] Neutrophils [#/volume] in Blood by Automated count 1.8-7.7 [facility] Neutrophils/100 WBC Auto (Bl d)Ordered By: Jacinto Livingston on 04-13-2024 Neutrophils/100 WBC (Bld) Automated neutrophil % . [facility] No Panel InformationOrdered By: Jacinto Livingston on 04-13-2024 Estimated GFR (CKD-EPI) > 60.0 mL/Min [facility] Pharmacy Creatinine Clearance (Chem 134.56 [facility] Nucleated erythrocytes [Pres ence] in Blood by Automated countOrdered By: Jacinto Livingston on 04-13-2024 Nucleated RBC Auto Ql (Bld) Nucleated erythrocytes [Presence] in Blood by Automated count 0-0.5 [facility] Platelet mean volume Auto (B ld) [Entitic vol]Ordered By: Jacinto Livingston on 04-13-2024 Platelet mean volume (Bld) [Entitic vol] Platelet mean volume [Entitic volume] in Blood by Automated count 6.6-10.1 [facility] Platelets Auto (Bld) [#/Vol] Ordered By: Jacinto Livingston on 04-13-2024 Platelets (Bld) [#/Vol] Platelets [#/volume] in Blood by Automated count 150-450 [facility] Potassium [Moles/volume] in Serum or PlasmaOrdered By: Jacinto Livingston on 04-13-2024 Potassium [Moles/Vol] Potassium [Moles/v olume] in Serum or Plasma 3.5-5.1 [facility] Comment on above: Hemolysis is present at a level that could interfere with the result.Contact lab if redraw is required Prothrombin time (PT)Ordered By: Jacinto Livingston on 04-13-2024 PT Coag (PPP) [Time] Prothrombin time (PT) 9.0- 12.9 [facility] Comment on above: A hematocrit value g reater than 55% may lead to inaccurate results in coagulation testing. Patients having hematocrit values >55% require a special collection tube for coagulation studies. Please contact the laboratory at [phone] for redraw instructions. RBC Auto (Bld) [#/Vol]Ordere d By: Jacinto Livingston on 04-13-2024 RBC (Bld) [#/Vol] Erythrocytes [#/volu me] in Blood by Automated count 3.90-5.60 [facility] Serum or plasma anion gap de terminationOrdered By: Jacinto Livingston on 04-13-2024 Anion gap [Moles/Vol] Serum or plasma an ion gap determination 6.0-15.0 [facility] Sodium [Moles/volume] in Ser um or PlasmaOrdered By: Jacinto Livingston on 04-13-2024 Sodium [Moles/Vol] Sodium [Moles/volume ] in Serum or Plasma 136-145 [facility] Urea nitrogen [Mass/volume] in Serum or PlasmaOrdered By: Jacinto Livingston on 04-13-2024 Urea nitrogen [Mass/Vol] Urea nitrogen [Mass/volume] in Serum or Plasma 7-25 [facility] WBC Auto (Bld) [#/Vol]Ordere d By: Jacinto Livingston on 04-13-2024 WBC (Bld) [#/Vol] Leukocytes [#/volume ] in Blood by Automated count 4.1-10.5 [facility] aPTT in Platelet poor plasma by Coagulation assayOrdered By: Jacinto Livingston on 04-13-2024 aPTT Coag (PPP) [Time] Activated partial thromboplastin time (aPTT) in platelet poor plasma by coagulation a 25.1-36.5 [facility] Comment on above: A hematocrit value g reater than 55% may lead to inaccurate results in coagulation testing. Patients having hematocrit values >55% require a special collection tube for coagulation studies. Please contact the laboratory at [phone] for redraw instructions. COVID-19 Antigenon 4 COVID-19 [...] developed and its performance characteristic determined by [facility] and validated at [facility]. This test has not been FDA cleared [...] for SARS Antigen by [facility] PERFORMED BY: [place] [address] PATHOLOGIST BAIT DIGGER BRANDON AVITIA M.D. Normal [facility] Comment on above: Performed By: #### H S TROP #### [address] Glucose Poct Glucometerson 1 06-13-2023 Glucose [Mass/Vol] 223 mg/dL Normal [facility] Comment on above: Result Comment: [facility] Glucose Reference Range is dependent on time and content of last meal. Glucose of more than 200 mg/dL in a nonstressed, ambulatory subject supports the diagnosis of Diabetes Mellitus. PERFORMED BY: [place] [address] PATHOLOGIST BAIT DIGGER BRANDON AVITIA M.D. Performed By: #### G LULS #### Point of Care testing , Glucose [Mass/Vol] 121 mg/dL Normal [facility] Comment on above: Result Comment: [place] om Glucose Reference Range is dependent on time and content of last meal. Glucose of more than 200 mg/dL in a nonstressed, ambulatory subject supports the diagnosis of Diabetes Mellitus. PERFORMED BY: [place] [address] PATHOLOGIST BAIT DIGGER BRANDON AVITIA M.D. Performed By: #### H S TROP #### [address] Glucose [Mass/Vol] 148 mg/dL Normal [facility] Comment on above: Result Comment: [place] Glucose Reference Range is dependent on time and content of last meal. Glucose of more than 200 mg/dL in a nonstressed, ambulatory subject supports the diagnosis of Diabetes Mellitus. PERFORMED BY: [place] [address] PATHOLOGIST BAIT DIGGER BRANDON AVITIA M.D. Performed By: #### G LULS #### Point of Care testing , Glucose [Mass/Vol] 178 mg/dL Normal [facility] Comment on above: Result Comment: [place] Glucose Reference Range is dependent on time and content of last meal. Glucose of more than 200 mg/dL in a nonstressed, ambulatory subject supports the diagnosis of Diabetes Mellitus. PERFORMED BY: [place] [address] PATHOLOGIST BAIT DIGGER BRANDON AVITIA M.D. Performed By: #### G LULS #### Point of Care testing , No Panel InformationOrdered By: Jacinto Livingston on 04-12-2024 SARS Antigen (LFIA) [facility] SARS-CoV+SARS-CoV-2 (COVID-1 9) Ag [Presence] in Respiratory specimen by Rapid immunoaOrdered By: Jacinto Livingston on 04-12-2024 SARS-CoV+SARS-CoV-2 (COVID-19) Ag IA.rapid Ql (Resp) COVID-19 [facility] Negative [facility] Comment on above: This is a duplicate Emma SARS Antigen (ROLANDO) result to be used for statistical tracking purpose only. Emma Ag Negativeon 04-12-20 Emma Ag Negative Negative Normal Negative [facility] Comment on above: Result Comment: This is a duplicate Emma SARS Antigen (ROLANDO) result to be used for statistical tracking purpose only. PERFORMED BY: [place] [address] PATHOLOGIST BAIT DIGGER BRANDON AVITIA M.D. Performed By: #### H S TROP #### [place] [address] [place] A1C with Estimated Average G luon 04-11-2024 Glucose [Mass/Vol] 229 mg/dL Normal [facility] Comment on above: Result Comment: PERF ORMED BY: [place] [address] PATHOLOGIST BAIT DIGGER BRANDON AVITIA M.D. Performed By: #### G LULS #### Point of Care testing , HbA1c (Bld) [Mass fraction] 9.6 % High 4.3-5.6 [facility] Comment on above: Result Comment: Incr eased risk for diabetes: 5.7 - 6.4 diabetes: >6.4 glycemic control for adults with diabetes: <7.0 Performed By: #### G LULS #### Point of Care testing , Alanine aminotransferase [En zymatic activity/volume] in Serum or PlasmaOrdered By: Leslie Sanchez on 04-11-2024 ALT [Catalytic activity/Vol] Alanine aminotransferase [Enzymatic activity/volume] in Serum or Plasma [facility] Albumin [Mass/volume] in Ser um or Plasma by Bromocresol green (BCG) dye binding methoOrdered By: Leslie Sanchez on 04-11-2024 Albumin BCG dye [Mass/Vol] Albumin [Mass/volume] in Serum or Plasma by Bromocresol green (BCG) dye binding metho 3.5-5.7 [facility] Alkaline phosphatase [Enzyma tic activity/volume] in Serum or PlasmaOrdered By: Leslie Sanchez on 04-11-2024 ALP [Catalytic activity/Vol] Alkaline phosphatase [Enzymatic activity/volume] in Serum or Plasma 34-104 [facility] Aspartate aminotransferase [ Enzymatic activity/volume] in Serum or PlasmaOrdered By: Leslie Sanchez on 04-11-2024 AST [Catalytic activity/Vol] Aspartate aminotransferase [Enzymatic activity/volume] in Serum or Plasma 13-39 [facility] Bilirubin.total [Mass/volume ] in Serum or PlasmaOrdered By: Leslie Sanchez on 04-11-2024 Bilirubin [Mass/Vol] Bilirubin.total [Mass/volume] in Serum or Plasma 0.3-1.0 [facility] Blood estimated average gluc ose determination by estimation from glycated hemoglobinOrdered By: Leslie Sanchez on 04-11-2024 Average glucose Estimated from glycated hemoglobin (Bld) [Mass/Vol] Glucose mean value [Mass/volume] in Blood Estimated from glycated hemoglobin [facility] Calcium [Mass/volume] in Ser um or PlasmaOrdered By: Leslie Sanchez on 04-11-2024 Calcium [Mass/Vol] Calcium [Mass/volume ] in Serum or Plasma 8.6-10.3 [facility] Cholesterol [Mass/volume] in Serum or PlasmaOrdered By: Leslie Sanchez on 04-11-2024 Cholesterol [Mass/Vol] Cholesterol [Mass /volume] in Serum or Plasma 140-200 [facility] Comment on above: Chol less than 200 m g/dl low riskChol 201-239 mg/dl borderline riskChol 240 mg/dl and greater high risk Cholesterol in HDL [Mass/vol ume] in Serum or PlasmaOrdered By: Leslie Sanchez on 04-11-2024 Cholesterol in HDL [Mass/Vol] Serum or plasma high density lipoprotein (HDL) cholesterol measurement 23- [facility] Comment on above: HDL CHOL ATP-III CLA SSIFICATION Cardiovascular RiskHDL > or equal to 60 mg/dL LOWHDL < 40 mg/dL HIGH Cholesterol in LDL Calc [Mas s/Vol]Ordered By: Leslie Sanchez on 04-11-2024 Cholesterol in LDL [Mass/Vol] Cholesterol in LDL [Mass/volume] in Serum or Plasma by calculation 0-100 [facility] Comment on above: LDL ATP III CLASSIFI CATIONLDL less than 100 mg/dL OptimalLDL 100-129 mg/dL Near or above optimalLDL 130-159 mg/dL Borderline highLDL 160-189 mg/dL HighLDL greater than 189 mg/dL Very high Cholesterol in VLDL Calc [Ma ss/Vol]Ordered By: Leslie Sanchez on 04-11-2024 Cholesterol in VLDL [Mass/Vol] Cholesterol in VLDL [Mass/volume] in Serum or Plasma by calculation [facility] Comprehensive Metabolic Pane cole 04-11-2024 Albumin [Mass/Vol] 3.7 g/dL Normal 3.5-5.7 [facility] Comment on above: Performed By: #### G LULS #### Point of Care testing , Albumin/Globulin [Mass ratio] 1.2 {ratio} Normal [facility] Comment on above: Performed By: #### G LULS #### Point of Care testing , ALP [Catalytic activity/Vol] 85 U/L Normal 34-104 [facility] Comment on above: Performed By: #### G LULS #### Point of Care testing , ALT [Catalytic activity/Vol] 42 U/L Normal 7-52 [facility] Comment on above: Performed By: #### G LULS #### Point of Care testing , Anion gap [Moles/Vol] 9.7 mmol/L Normal 6.0-15.0 [facility] Comment on above: Performed By: #### G LULS #### Point of Care testing , AST [Catalytic activity/Vol] 28 U/L Normal 13-39 [facility] Comment on above: Performed By: #### G LULS #### Point of Care testing , Bilirubin [Mass/Vol] 0.6 mg/dL Normal 0.3-1.0 [facility] Comment on above: Performed By: #### G LULS #### Point of Care testing , Calcium [Mass/Vol] 9.0 mg/dL Normal 8.6-10.3 [facility] Comment on above: Performed By: #### G LULS #### Point of Care testing , Chloride [Moles/Vol] 106 mmol/L Normal 98-107 [facility] Comment on above: Performed By: #### G LULS #### Point of Care testing , CO2 [Moles/Vol] 24.6 mmol/L Normal 21.0-31.0 [facility] Comment on above: Performed By: #### G LULS #### Point of Care testing , Creatinine [Mass/Vol] 1.03 mg/dL Normal 0.70-1.30 [facility] Comment on above: Performed By: #### G LULS #### Point of Care testing , Creatinine Clr Calc Pharmacy 104.51 Normal [facility] Comment on above: Performed By: #### G LULS #### Point of Care testing , GFR/1.73 sq M.predicted MDRD (S/P/Bld) [Vol rate/Area] mL/min/{1.73_m2} Normal [facility] Comment on above: Performed By: #### G LULS #### Point of Care testing , Globulin (S) [Mass/Vol] 3.0 g/dL Normal [facility] Comment on above: Performed By: #### G LULS #### Point of Care testing , Glucose [Mass/Vol] 160 mg/dL High 70-100 [facility] Comment on above: Result Comment: [place] Glucose Reference Range is dependent on time and content of last meal. Glucose of more than 200 mg/dL in a nonstressed, ambulatory subject supports the diagnosis of Diabetes Mellitus. ADA recommended reference range Performed By: #### G LULS #### Point of Care testing , Potassium [Moles/Vol] 4.3 mmol/L Normal 3.5-5.1 [facility] Comment on above: Performed By: #### G LULS #### Point of Care testing , Protein [Mass/Vol] 6.7 g/dL Normal 6.4-8.9 [facility] Comment on above: Performed By: #### G LULS #### Point of Care testing , Sodium [Moles/Vol] 136 mmol/L Normal 136-145 [facility] Comment on above: Performed By: #### G ENRICO #### Point of Care testing , Urea nitrogen [Mass/Vol] 12 mg/dL Normal 7- [facility] Comment on above: Performed By: #### G ENRICO #### Point of Care testing , ECG 12 lead ECGon 04-11-2024 ECG 12 lead ECG [place] [address] Electrocardiograph Report Signed Patient: Lyly Quinn MR#: [id number] : 1965 Acct:[id number] Age/Sex: 59 / M ADM Date: 04/10/24 Loc: Room: [address] [place] [address] Type: ADM INOo Attending Dr: Leslie Sanchez [...] change was found [id number] on 04/13/2024 11:13:08 AM Referred By: Electronically Signed By: FAY DALE MD [facility] Transcribed By: MUS Signed By Fay Dale MD, [facility] 04/13/24 1113 Normal [facility] Globulin Calc (S) [Mass/Vol] Ordered By: Leslie Sanchez on 04-11-2024 Globulin (S) [Mass/Vol] Serum globulin measurement by calculation (mass/volume) [facility] Glucose Poct Glucometerson 1 06-12-2023 Glucose [Mass/Vol] 178 mg/dL Normal [facility] Comment on above: Result Comment: [facility] Glucose Reference Range is dependent on time and content of last meal. Glucose of more than 200 mg/dL in a nonstressed, ambulatory subject supports the diagnosis of Diabetes Mellitus. PERFORMED BY: [place] [address] PATHOLOGIST BAIT DIGGER BRANDON AVITIA M.D. Performed By: #### H S TROP #### [facility] [address] [place] [address] Glucose [Mass/Vol] 105 mg/dL Normal [facility] Comment on above: Result Comment: [place] om Glucose Reference Range is dependent on time and content of last meal. Glucose of more than 200 mg/dL in a nonstressed, ambulatory subject supports the diagnosis of Diabetes Mellitus. PERFORMED BY: [place] [address] PATHOLOGIST BAIT DIGGER BRANDON AVITIA M.D. Performed By: #### G LULS #### Point of Care testing , Glucose [Mass/Vol] 124 mg/dL Normal [facility] Comment on above: Result Comment: [place] Glucose Reference Range is dependent on time and content of last meal. Glucose of more than 200 mg/dL in a nonstressed, ambulatory subject supports the diagnosis of Diabetes Mellitus. PERFORMED BY: [place] [phone] PATHOLOGIST BAIT DIGGER BRANDON AVITIA M.D. Performed By: #### H S TROP #### [address] Commemt1 Glu2: Cleaned Meter Normal [facility] Comment on above: Result Comment: PERF ORMED BY: [place] [address] PATHOLOGIST BAIT DIGGER BRANDON AVITIA M.D. Performed By: #### G LULS #### Point of Care testing , Glucose [Mass/Vol] 158 mg/dL Normal [facility] Comment on above: Result Comment: [place] om Glucose Reference Range is dependent on [...] ] in Serum or Plasma High 70-100 [facility] Comment on above: ADA recommended refe rence rangeRandom Glucose Reference Range is dependent on time and content of last meal. Glucose of more than 200 mg/dL in a nonstressed, ambulatory subject supports the diagnosis of Diabetes Mellitus. Hemoglobin A1c/Hemoglobin.to madhuri in BloodOrdered By: Leslie Sanchez on 04-11-2024 HbA1c (Bld) [Mass fraction] Hemoglobin A1c percentage High 4.3-5.6 [facility] Comment on above: Increased risk for d iabetes: 5.7 - 6.4diabetes: >6.4glycemic control for adults with diabetes: <7.0 Lipid Panelon 04-11-2024 Cholesterol [Mass/Vol] 140 mg/dL Normal 140-200 [facility] Comment on above: Result Comment: Chol less than 200 mg/dl low risk Chol 201-239 mg/dl borderline risk Chol 240 mg/dl and greater high risk Performed By: #### G LULS #### Point of Care testing , Cholesterol in HDL [Mass/Vol] 35 mg/dL Normal 23-92 [facility] Comment on above: Result Comment: HDL CHOL ATP-III CLASSIFICATION Cardiovascular Risk HDL > or equal to 60 mg/dL LOW HDL < 40 mg/dL HIGH Performed By: #### G LULS #### Point of Care testing , Cholesterol.total/Chol esterol in HDL [Mass ratio] 4.0 {ratio} Normal <5.0 [facility] Comment on above: Performed By: #### G LULS #### Point of Care testing , LDL Cholesterol,Calculated 54 mg/dL Normal 0-100 [facility] Comment on above: Result Comment: LDL ATP III CLASSIFICATION LDL less than 100 mg/dL Optimal LDL 100-129 mg/dL Near or above optimal LDL 130-159 mg/dL Borderline high LDL 160-189 mg/dL High LDL greater than 189 mg/dL Very high Performed By: #### G LULS #### Point of Care testing , Triglyceride w/Reflex 253 mg/dL High 0-149 [facility] Comment on above: Result [...] , VLDL CHOLESTEROL 50 mg/dL Normal [facility] Comment on above: Performed By: #### G LULS #### Point of Care testing , Magnesiumon 04-11-2024 Magnesium [Mass/Vol] 2.0 mg/dL Normal 1.9-2.7 [facility] Comment on above: Performed By: #### G LULS #### Point of Care testing , Magnesium [Mass/volume] in S fina or PlasmaOrdered By: Leslie Jonesr on 04-11-2024 Magnesium [Mass/Vol] Magnesium [Mass/vol ume] in Serum or Plasma 1.9-2.7 [facility] No Panel InformationOrdered By: Leslie Jonesr on 04-11-2024 Bedside Glucose Comment Glu2: cleaned meter [facility] Outside Recordson 04-11-2024 Outside Records [id number]#1.00OTGTIFF [facility] Outside Records [id number]#1.00OTGTIFF [facility] Protein [Mass/volume] in Ser um or PlasmaOrdered By: Obbenny Romeroomar on 04-11-2024 Protein [Mass/Vol] Protein [Mass/volume ] in Serum or Plasma 6.4-8.9 [facility] Rad - Other Radiology Report on 04-11-2024 Rad - Other Radiology Report [id number]#1.00OTGTIFF [facility] Serum or plasma albumin/glob ulin mass ratioOrdered By: Leslie Romeroomar on 04-11-2024 Albumin/Globulin [Mass ratio] Serum or plasma albumin/globulin mass ratio [facility] Serum or plasma total choles terol/high density lipoprotein (HDL) cholesterol mass ratOrdered By: Leslie Sanchez on 04-11-2024 Cholesterol.total/Chol esterol in HDL [Mass ratio] Serum or plasma total cholesterol/high density lipoprotein (HDL) cholesterol mass rat <5.0 [facility] Thyroid Stimulating Hormoneo n 04-11-2024 TSH Qn 1.00 m[IU]/L Normal 0.45-5.33 [facility] Comment on above: Result Comment: PERF ORMED BY: [facility] [address] [place] [place] [address] PATHOLOGIST BAIT DIGGER BRANDON AVITIA M.D. Performed By: #### G LULS #### Point of Care testing , Thyrotropin [Units/volume] i n Serum or PlasmaOrdered By: Leslie Sanchez on 04-11-2024 TSH Qn Thyrotropin [Units/v olume] in Serum or Plasma 0.45-5.33 [facility] Triglyceride [Mass/volume] i n Serum or PlasmaOrdered By: Leslie Sanchez on 04-11-2024 Triglyceride [Mass/Vol] Triglyceride [Mass/volume] in Serum or Plasma High 0-149 [facility] Comment on above: TRIG ATP III CLASSIF ICATIONTRIG less than 150 mg/dL NormalTRIG 150-199 mg/dL Borderline highTRIG 200-500 mg/dL High TRIG greater than 500 mg/dL Very highStandard traceable to the Center for Disease Conrtrol and Prevention (CDC) test method. B-Type Natriuretic Peptideon 04-10-2024 Natriuretic peptide B (Bld) [Mass/Vol] 26.0 pg/mL Normal 5-100 [facility] Comment on above: Result Comment: PERF ORMED BY: [facility] [address] [place] [address] PATHOLOGIST BAIT DIGGER BRANDON AVITIA M.D. Performed By: #### G LULS #### Point of Care testing , Basic Metabolic Panelon 12-2 3-2024 Anion gap [Moles/Vol] 11.2 mmol/L Normal 6.0-15.0 [facility] Comment on above: Performed By: #### G LULS #### Point of Care testing , Calcium [Mass/Vol] 10.0 mg/dL Normal 8.6-10.3 [facility] Comment on above: Performed By: #### G LULS #### Point of Care testing , Chloride [Moles/Vol] 104 mmol/L Normal 98-107 [facility] Comment on above: Performed By: #### G LULS #### Point of Care testing , CO2 [Moles/Vol] 22.5 mmol/L Normal 21.0-31.0 [facility] Comment on above: Performed By: #### G LULS #### Point of Care testing , Creatinine [Mass/Vol] 0.82 mg/dL Normal 0.70-1.30 [facility] Comment on above: Performed By: #### G LULS #### Point of Care testing , Creatinine Clr Calc Pharmacy 130.19 Normal [facility] Comment on above: Result Comment: PERF ORMED BY: [address] [address] PATHOLOGIST BAIT DIGGER BRANDON AVITIA M.D. Performed By: #### G LULS #### Point of Care testing , GFR/1.73 sq M.predicted MDRD (S/P/Bld) [Vol rate/Area] mL/min/{1.73_m2} Normal [facility] Comment on above: Performed By: #### G LULS #### Point of Care testing , Glucose [Mass/Vol] 143 mg/dL High 70-100 [facility] Comment on above: Result Comment: [place] Glucose Reference Range is dependent on time and content of last meal. Glucose of more than 200 mg/dL in a nonstressed, ambulatory subject supports the diagnosis of Diabetes Mellitus. ADA recommended reference range Performed By: #### G LULS #### Point of Care testing , Potassium [Moles/Vol] 3.7 mmol/L Normal 3.5-5.1 [facility] Comment on above: Performed By: #### G LULS #### Point of Care testing , Sodium [Moles/Vol] 134 mmol/L Low 136-145 [facility] Comment on above: Performed By: #### G LULS #### Point of Care testing , Urea nitrogen [Mass/Vol] 10 mg/dL Normal 7-25 [facility] Comment on above: Performed By: #### G LULS #### Point of Care testing , Complete Blood Count Auto Di ffon 04-10-2024 Basophils (Bld) [#/Vol] 0.1 10*3/uL Normal 0.0-0.2 [facility] Comment on above: Result Comment: PERF ORMED BY: [place] [address] PATHOLOGIST BAIT DIGGER BRANDON AVITIA M.D. Performed By: #### H S TROP #### [address] Basophils/100 WBC (Bld) 1.2 % Normal . [facility] Comment on above: Performed By: #### H S TROP #### [address] Eosinophils (Bld) [#/Vol] 0.1 10*3/uL Normal 0.0-0.45 [facility] Comment on above: Performed By: #### H S TROP #### [address] Eosinophils/100 WBC (Bld) 1.3 % Normal . [facility] Comment on above: Performed By: #### H S TROP #### [address] Erythrocyte distribution width (RBC) [Ratio] 12.8 % Normal 12.0-14.8 [facility] Comment on above: Performed By: #### H S TROP #### [address] Hematocrit (Bld) [Volume fraction] 44.8 % Normal 38.8-50.0 [facility] Comment on above: Performed By: #### H S TROP #### [address] Hemoglobin (Bld) [Mass/Vol] 15.4 g/dL Normal 13.0-17.0 [facility] Comment on above: Performed By: #### H S TROP #### [address] Lymphocytes (Bld) [#/Vol] 3.5 10*3/uL Normal 1.00-4.8 [facility] Comment on above: Performed By: #### H S TROP #### [address] Lymphocytes/100 WBC (Bld) 40.9 % Normal . [facility] Comment on above: Performed By: #### H S TROP #### [address] MCH (RBC) [Entitic mass] 31.1 pg Normal 27.5-35.2 [facility] Comment on above: Performed By: #### H S TROP #### [address] MCV (RBC) [Entitic vol] 90.4 fL Normal 83.5-101 [facility] Comment on above: Performed By: #### H S TROP #### [address] Mean Corpuscular HGB Conc 34.4 g/dL Normal 32.5-35.6 [facility] Comment on above: Performed By: #### H S TROP #### [address] Monocytes (Bld) [#/Vol] 0.5 10*3/uL Normal 0.0-0.8 [facility] Comment on above: Performed By: #### H S TROP #### [place] [address] [place] Monocytes/100 WBC (Bld) 21.73 % High 0.00-20.00 [facility] Comment on above: Result Comment: For adults in ED, MDW > 20.0 may be associated with a higher risk of sepsis during the first 12 hrs of hospital admission Performed By: #### H S TROP #### [address] Monocytes/100 WBC (Bld) 5.6 % Normal . [facility] Comment on above: Performed By: #### H S TROP #### [address] Neutrophils (Bld) [#/Vol] 4.3 10*3/uL Normal 1.8-7.7 [facility] Comment on above: Performed By: #### H S TROP #### [address] Neutrophils/100 WBC (Bld) 51.0 % Normal . [facility] Comment on above: Performed By: #### H S TROP #### [address] NRBC% 0.1 /100{WBC} Normal 0-0.5 [facility] Comment on above: Performed By: #### H S TROP #### [place] [address] [place] Platelet mean volume (Bld) [Entitic vol] 7.4 fL Normal 6.6-10.1 [facility] Comment on above: Performed By: #### H S TROP #### [place] [address] [place] Platelets (Bld) [#/Vol] 293 10*3/uL Normal 150-450 [facility] Comment on above: Performed By: #### H S TROP #### [place] [address] [place] RBC (Bld) [#/Vol] 4.96 10*6/uL Normal 3.90-5.60 [facility] Comment on above: Performed By: #### H S TROP #### [address] WBC (Bld) [#/Vol] 8.5 10*3/uL Normal 4.1-10.5 [facility] Comment on above: Performed By: #### H S TROP #### [address] D-Dimer High Sensitivityon 1 06-11-2023 D-Dimer High Sensitivity <200 Normal 0-243 [facility] Comment on above: Result [...] coagulation studies. Please contact the laboratory at [phone] for redraw instructions. PERFORMED BY: [place] [address] PATHOLOGIST BAIT DIGGER BRANDON AVITIA M.D. Performed By: #### G LULS #### Point of Care testing , ECG 12 lead ECGon 04-10-2024 ECG 12 lead ECG [facility] Main [place] [id number] Electrocardiograph Report Signed Patient: Lyly Quinn MR#: [id number] : 1965 Acct:[id number] Age/Sex: 59 / M ADM Date: 04/10/24 Loc: ER Room: Type: [facility] ER Attending Dr: Ordering Provider: Des Contreras [...] Sinus tachycardia Confirmed by Brian BLANCHARD DO ([id number]) on 04/10/2024 3:39:55 PM Referred By: Electronically Signed By: Brian BLANCHARD DO Transcribed By: MUS Signed By Brian Blanchard DO 1 06/11/23 1539 Normal [facility] ECG 12 lead ECG [place] [address] Electrocardiograph Report Signed Patient: Lyly Qunin MR#: [id number] : 1965 Acct:[id number] Age/Sex: 59 / M ADM Date: 04/10/24 Loc: ER Room: Type: [facility] ER Attending Dr: Ordering Provider: Des Contreras [...] sinus rhythm Confirmed by Brian BLANCHARD DO ([id number]) on 04/10/2024 3:38:47 PM Referred By: Electronically Signed By: Brian BLANCHARD DO Transcribed By: EDEN Signed By Brian Blanchard DO 1 06/11/23 1538 Normal [facility] Fibrin D-dimer [Presence] in Platelet poor plasma by Latex agglutinationOrdered By: Des Contreras on 04-10-2024 Fibrin D-dimer LA Ql (PPP) Fibrin D-dimer [Presence] in Platelet poor plasma by Latex agglutination 0-243 [facility] Comment on above: The reference range for [...] coagulation studies. Please contact the laboratory at [phone] for redraw instructions. Glucose Poct Glucometerson 1 06-11-2023 Commemt1 Glu2: Cleaned Meter Normal [facility] Comment on above: Result Comment: PERF ORMED BY: [address] [address] PATHOLOGIST BAIT DIGGER BRANDON AVITIA M.D. Performed By: #### G LULS #### Point of Care testing , Glucose [Mass/Vol] 151 mg/dL Normal [facility] Comment on above: Result Comment: [place] Glucose Reference Range is dependent on time and content of last meal. Glucose of more than 200 mg/dL in a nonstressed, ambulatory subject supports the diagnosis of Diabetes Mellitus. Performed By: #### G LULS #### Point of Care testing , Glucose [Mass/Vol] 136 mg/dL Normal [facility] Comment on above: Result Comment: [place] om Glucose Reference Range is dependent on time and content of last meal. Glucose of more than 200 mg/dL in a nonstressed, ambulatory subject supports the diagnosis of Diabetes Mellitus. PERFORMED BY: [facility] [address] [place] [address] PATHOLOGIST BAIT DIGGER BRANDON AVITIA M.D. Performed By: #### G LULS #### Point of Care testing , Monocyte distribution width [Entitic volume] in Blood by AutomatedOrdered By: Des Contreras on 04-10-2024 Monocyte distribution width Auto (Bld) [Entitic vol] Monocyte distribution width [Entitic volume] in Blood by Automated High 0.00-20.00 [facility] Comment on above: For adults in ED, MD W > 20.0 may be associated with a higher risk of sepsis during the first 12 hrs of hospital admission Natriuretic peptide B [Mass/ Vol]Ordered By: Des Contreras on 04-10-2024 Natriuretic peptide B (Bld) [Mass/Vol] BNP ser/plas 5-100 [facility] Outside Recordson 04-10-2024 Outside Records [id number]#1.00OTGTI Normal [facility] Outside Records [id number]#1.00OTGTI [facility] Outside Records [id number]#1.00OTGTI [facility] Outside Records [id number]#1.00OTGTI [facility] Prothrombin Time INRon 04-10 INR Coag (PPP) [Relative time] 2.2 {INR} Normal [facility] Comment on above: Result [...] (PPP) [Time] 25.4 s High 9.0-12.9 [facility] Comment on above: Result Comment: A he matocrit value greater than 55% may lead to inaccurate results in coagulation testing. Patients having hematocrit values >55% require a special collection tube for coagulation studies. Please contact the laboratory at [phone] for redraw instructions. Performed By: #### G LULS #### Point of Care testing , Rad - Other Radiology Report on 04-10-2024 Rad - Other Radiology Report [id number]#1.00OTGTI [facility] Troponin I High Sensitivityo n 04-10-2024 Troponin I High Sensitivity 3.2 pg/mL Normal 0.0-20.0 [facility] Comment on above: Result Comment: PERF ORMED BY: [place] [address] PATHOLOGIST BAIT DIGGER BRANDON AVITIA M.D. Performed By: #### H S TROP #### [address] Troponin I High Sensitivity 3.1 pg/mL Normal 0.0-20.0 [facility] Comment on above: Result Comment: PERF ORMED BY: [place] [address] PATHOLOGIST BAIT DIGGER BRANDON AVITIA M.D. Performed By: #### H S TROP #### [address] Troponin I High Sensitivity 3.0 pg/mL Normal 0.0-20.0 [facility] Comment on above: Result Comment: PERF ORMED BY: [place] [address] PATHOLOGIST BAIT DIGGER BRANDON AVITIA M.D. Performed By: #### G LULS #### Point of Care testing , Troponin I.cardiac [Mass/vol ume] in Serum or Plasma by Detection limit <= 0.01 ng/Ordered By: Leslie Sanchez on 04-10-2024 Troponin I.cardiac DL <= 0.01 ng/mL [Mass/Vol] Troponin I.cardiac [Mass/volume] in Serum or Plasma by Detection limit <= 0.01 ng/ 0.0-20.0 [facility] XR chest 1V portableon 04-10 XR chest 1V portable [facility] [place] [address] XRay Report Signed Patient: Lyly Quinn MR#: [id number] : 1965 Acct:[id number] Age/Sex: 59 / M ADM Date: 04/10/24 Loc: ER Room: Type: [facility] ER Attending Dr: Copies to: Des Contreras [...] Africa Soni M.D.04/10/2024 12:55 PM Dictation Location: [place] [address] Transcribed By: [facility] 04/10/24 1255 Dictated By: Africa Soni MD 04/10/24 1253 Signed By: 04/10/24 1255 Normal [facility] Outside Recordson 04-07-2024 Outside Records [id number]#1.00OTGTIFF [facility] Outside Records [id number]#1.00OTGTIFF [facility] Rad - Other Radiology Report on 04-06-2024 Rad - Other Radiology Report [id number]#1.00OTGTIF F [facility] Rad - Other Radiology Report on 04-04-2024 Rad - Other Radiology Report [id number]#1.00OTGTIFF [facility] Outside Recordson 04-03-2024 Outside Records [id number]#1.00OTGTIFF [facility] Influenza virus A and B and SARS-CoV-2 (COVID-19) RNA panel - Respiratory system specon 03-31-2024 Influenza virus A and B RNA and SARS-CoV-2 (COVID-19) N gene panel LEATHA+probe (Resp) Influenza virus A and B and SARS-CoV-2 (COVID-19) RNA panel - Respiratory system spec [facility] Laboratory - Microbiology an d Antimicrobial susceptibilityon 03-31-2024 SARS-CoV-2 (COVID-19) RNA LEATHA+probe Ql (Unsp spec) Negative [facility] No Panel Informationon 03-31 POC Influenza B (LEATHA) Negative [facility] Diabetes Noteon 03-21-2024 Diabetes Note Patient scheduled [...] 10:55 EST] Erica Quiroz RN CDE BSN [facility] Coding Summaryon 03-13-2024 Coding Summary HTMLBase 64 LhrellliMBu8pBv+PGhlYWQ+PE 4JQUMtE06zrTAeyV1oC9VWOZzT FlrtOKCGSGtSCePmueZkOQ6xeU NjZXJu IC8+JY0eTLEfQcodoDQjc1T9cL T8K12pwy4cUJvkePJ1AAJuTnXf bpfkx7kykKj2NZosYjybZxGg FPXfyC38SKR7fB89Ah22rDJhkO Rss5vncWc0FhIkCUNgXOM4eOto EAxps3QqDOMfR65ctGIbg4O7 RWRxuJuooEAoBcQinEQ1gR8wNH iflzrhz2wgmollUbo6lb79qTIc g7F4vWL9I8LqhjM6DYEbuWEb ObxiiZNLcH0dbsuqr2zmrwxpBj OjJRSpIUa0URc8AKFbjZfuEuOu DB28ZAI4OSJswfTmR9EoATFq kIyeMfD9o5Z0Th4MP7YYVoxeO5 VNTUFSWTwvdGQ+NN15wq96S4Yw MnniBdz3KLXvLIV8yKC9pV6j CILoAHydo8G6oWW6C9ZnzxUlhg 5bs1jxSLPrFUolN75tfTQdk9G5 BREhiKN6WRNhnKgiBaHwpG23 Oyc+AFWvdRnhp6TuYipnb2gpn0 ocnBb0KgzmQNXtntAmgOmeRUG3 w4PuCj2mREBmpEM1cNL1rV3v UcCbIlO8VVewD709PlPtrEIvMn esW50vN6ElgNH+HQDmKqt8GHKi tPvxDP1bB8TtYLCkxjuyjNAs lMluEJ8bQWOfpimhKFLbwI3aRC ZbU3z6VaTzZgM5AIraH5CbJZVo tyveUb88uI4qAqKmJgQ2DZwy B7CrvrK7MMChxUGcOQplGBH9E7 9hu7V7JZHkESKhXXQ6lML4oX1w bGlnbjogbGVmdDsgdmVydGlj JBafCDilK491DBPknSarIoXvGL luZyBEYXRlOiAgMTEvMjUvMjAy NDwvdGQ+ONKxMBF2dWzoGBEx hBZuGZyhYj3ajLqceWflHK8jSO ZmlslvGCPcsO2dJLFhuZEbnSqk VM6nKXJleziyy115UoCsEMI9 RAYkjHKcU5NufT8wMzPbFPScMV LwU7OnfVOlSZxpG512FGyxImH1 LXZzmuGjP2VqPWTnsKrnAvT7 t8O8Hm1Uf5QmswecU1SzvEThLq NoRcbpNIe5H4ZhUmulfNY+PC90 CRGwMG18RKg6EHV8wFjcNLgn BPMqZ8BkpT9hHjPqVHJsOMHxEe c+PHRhYmxlIHdpZHRoPScxMDAl AeVrmOvrKY7cCa8pAWOqZZGe rMugfFNmSmGvy9tnSSWeVDvmRU 0sgYooD6SerBN8XIHvc4i7Wc61 X93dF2UchPO+IRCdiRX8mTI3 jV9wKfOxKpR7ILqxU590RqPavR VwBuvxl9bxw8mohBp1VxL0XGCh pbFxzJpjSTN6e6MpWy98T56a IHdpZHRoPSIxNSUiIHZhbGlnbj 6gjI2sUw3+ULBgaRK9nPX0rH3o JvNlCyD3GYyvL278RdOvmDWq Tuvuk4hfi8lagAp6WwDaQBYsdw MyxRufRUU8n7BqSj48U7FqkQyz u5XfLyz1oq74rTMiw2P2hTK3 X7GdEMUqcjckqBVvfSdoMZ6sIR ChrphzNAZnlF3fEJXnO8v9TkAi VlE9XBqyX1RwplE0MRQnjYAa ZZLkgNBOwI6paublc8dyvmkuKh PwXTBlSRc4NXc0MIInqMcyHeCz JFU5YfX2LFO1xFVouC8xhAjp xdzbaH5aStf+VRP3jBXbbDIXHN 1lOjwvdGQ+SGBtQWV2yAngSAcm APTpuR3bXXHsK2h6TsShOxY0 FYwuZ6AqugL2RVBfvQGgMKVjwE OEzY2wsviin3cgdnkkHdFkJDYg RIr1QRw8VVByhMatEcBhSLI3 MkR3SPP5wOHzeT0yvVexsegwjW 9wOyc+CirojAebGBB6FMn6L5Mj Vxt5BFPyjGkaEI5pgGAkQQlp Yr8drPmuaUtzEJ1nYQGiomdny5 42TiQyk7rtHBNtyCJeDThzGMU4 B58yj9I0ROXvYVNmUGH4dWS8 cR8tjLblcutqkDKziOgctpXdsA wlXEkgEVhvG198ZVFlkRjyIfLy DUm6O2MyAbd7JECaeYxbAN9a kFOeHHvdLw8omIlgkJtaKB2eGF Uphrihw347CyTml9ozQKNnlKEk EGmrCSK2I71nc9W6FIWjBLBr UQL2rSV5vV2ybGqdxivldIGtlL lyazXvaArpBVndADwhD588GLKe vTvcIpNaySg0S6CdThu9NRFh lIzdWX9gyFPpGDkdNv4ixWdgzB fnCN4cXRTdqfsoq593AfXxb3kk DQRbnSVvCDuyYWB8A14kb2L3 GDRyPFXxWAE0oWR6mV8cbUuscl ogbGVmdDsgdmVydGljYWwtYWxp A808YOXxlOgdDoYfoPcdycIz HYdxQIu4L3WxFkidiIY+PC90YW AuWM00rBPrzHZtm5filXh0KrCf OZAtCOS7yRtdUVvvm6DbWGDu Y87gcVKge7Q3AOOrkBfoiFKhWr JpiBI4nM3gQAvontfql7lpvrsl Rfagt3ajxu29oA27Q17dTTnc HRLzVTOePOMyHZCroLxqtc4kjL 9wIi8+KUCohMG8gOU0yM7gGTOz KvP3WAauO971EkYetWLaLwyx z6lxl7lshNj9HfT3PPHlrwGadK wdEID7z6QrXu88M45pSKplRBTv GFSdWZFwQESezNnbnk4weR3s Ii8+LVNddPO7zJL7mA1eTnIoEl X1TRloA471JxVznABkQqivJ87l O1UxgPN+DPUeMvb2GROnmIln BK0itBTsUHybBh9fPWY8YuVpPu KjTJboX8QiYZXynpapfkoswHX5 MKXsIBTxmK72Qp6kjOdxCVVo pVKOcV0whltmo2pstwbbQxXaFJ WfGDk0EDc3EHBqxRzcNoYgVYG5 KaO2QPJ9xNEzjJ5wxUqpztcj zD5bW0KvMCThdotqGa26dU9hLx DvOmL3QVbiChg+EhqUU3PxSDKG NX9bC5uSZDxHVEkiaGJ+PHRk JGS2zEywSWwtQCJvaE6fTHXkG9 z4GmUnLlJ4NEqkB4WpXYVylpoq Kh36zW0rOrJjZaP5KLltC1Ba orJ5KYFuvSDgYJefNSA1U72em2 L6YXVeCTDaAZZ6bHO1aV9fnEvd bjogbGVmdDsgdmVydGljYWwt MXufY194ZVWjwTdyDcIoEnA1Wb E5HzY2K1BoQna8RXXvdBhkSS7v mNZoJGazMd8qkMawrDbvQR9i YWFjwwakNQPjoX9iFUMakFJxzK jlAM6kQVKoabbpe219JpAjQVB7 MMKckEHfC0AkzX1dUtDoPBSl GYAnQ0JatWHrHNfcO651OHmoQa E1RUQsqmLiA7PfMWYncDzgUiT5 h4S8Es82VeORKZOnbckvpWB+ GIZxHPG4vThrADlnLSBmhX0fJJ QwL2s1TtRdFdQ6XDwhJ0LdNYVl pyayTz07dW9gZoNeSoY3GFct U7YqnaS8ALHfzOQtMLitQSI3G1 9oo7E4WUEyIKTvRAK1nQI0vO2y bGlnbjogbGVmdDsgdmVydGlj IRylUYnvK856TQUyuPvwWf4XMI H9U8VcTsa3BHJjkDuoWX1wmXIh UScsUj5jsQhxeUcnGR4rTAYc ubctGGBumK9oAEVaiBAmdOwyXQ 8uYMAnqcuzj809ZiKyTLU4FGJm rNLsE2QteR4aPhUkRVWjCCVz N5TmiBLvQBggY176UKobWiO9MF OcobWgW3WzTXEhdNcxVoY9r8A2 Il6TTJT7rxKaceppB3D8gXF8 aWVudDwvdGQ+UJ32ig10R2LuDp zbCvn6OOMpBLJ8tFF1oZ7iQHZy YProx6C1qMZ5U5QdgbUkxs8q j3lwNLEfCObjN66jtGXrn7Y5NJ BmxOO0GKHxaQiyExAfyV35Hzw+ NZCztFosr4KdJvjru4mmz9qo fNh9RsWjCMWfuzVjoWldBRD5o5 HrUj04C98lDEomKINeQRHlVTMo LPVtiLpjwd3udN4wMg2+PGNv yAX4aUU3iO5lBpBbDzZ6QHcyC9 78UvSuoDZzMfyaw5xxg4vfoUk7 VzZaPAWgauQlwYbwVGF9z8Ry Ew78V6VjxUfkc8FoChg2jf19uG Zie0H3vVN7U6FmWQXdjqkocLNe eDfaSZ1aJCEkyvpzVVDxgQ1s IYObJ9g2VnHeViU7YBweN1Prgn O0DEDscTPnZAZvxNPDfS2zzdlo a5uqkncxIfIyLFRpMGa4XZn1 XCHevCwgDoVmBVK0WoV4XMQ4mV GmnK1xrYjibinzeD5wMpu+UGh5 k5srsMSmTL1lbPB9QS03ZM47 uEPqv8O2cKS9H2YkCGCzpnyqxx ypqWY7QCIyAMSesU74Eq8omYsi Bf3fXFXoSXI1UQHbpSHrJ3Jb gI6qXmPdXTTjJHAnL4IfbMPzGM qvW016QGolTwP8WJMfnkRoU0Wr UDGweGxdZmU0t6X2Wg8RQN43 YM74KU04dAOcp9P1kIL5S0SwBG UjrdpubatguRZ4VAPdHMAbnO77 Nu9dlEyuVc1qNMCkWDD4FGTs kXQdG9RfxR0cSfYxPQHuXRPlJ8 PmbQIyLIhhB433RDvaEvP8VSXn oxJtF7NbCLGhqDtiChR8k1K8 Up9XPi19YL34YY39rVXgi1Q9pI J1M9OjQCOyxeljrgkqiSD5OXZv CWTrvM68Gw1jvYvpMi5yLNPm EMG1KPNigAJiB1TtwB4gWqHvPT FlEBHtU7GlzILeTPrqG488BKbs OjQ3SQGxsiTgL2PxDFVanAsc PlU1y4L4Hy1UEVgofua6D2JqFb wvdHI+IH57TRTkBL30wWUwvOQw y2hhbQz3PpDcUZOrFZS8uOus PSd (more content not included)... [facility] Provider Orderson 02-11-2024 Provider Orders [id number]#1.00OTGTIFF [facility] Lab - Other Lab [facility] - Other Lab Results [id number]#1.00OTGTIFF [facility] Rad - Other Radiology Report on 02-04-2024 Rad - Other Radiology Report [id number]#1.00OTGTIFF [facility] Coding Summaryon 09-23-2023 Coding Summary HTMLBase 64 HpiyolrjLDz9cLy+PGhlYWQ+PE 3NPPOcF59vkNKcgY2rX9NJBGaZ NdliZTBKKFhUDlUoluFcRS3ltE NjZXJu IC8+NM5bNILoGkpinTOja7C3wT Y9A25ygj2hFNkpuEO5NLNyBuNy hdhwt1kgsMo6WOboTwsbTwCe RDVsgU25XTW0mY67Qx56iIYytU Dor2itvCh5WgCbPRLsKMG6oQas HSygt8OoNRTtY17dtBQgz7N4 CIDekMcahBXwEbKbfXF5kE6xIH oyzwbsw7aaakgdJvw8le98zRKz g0Y4wQM1J9SeojZ9QEWreQHk RqlgiWSHoG1vddums9kuguvfCr YtWUJwNAy6XZw4ZZNsaDjxTgZj PV09QUY1IYSepvXzT9RfIUXh jYreYxJ0p1N9Vv3IK2TTCylyH2 VNTUFSWTwvdGQ+SW72el52L8Qr YbhyZsy5IBDkAWJ8hPK4vI4i EOBaJHfmp5D7zGT7U7QgamAnhe 7aj5iwSBAdHCtiO89brOThm8R4 GJSaqKF3OXQiqVltHoWveV14 Oyc+KJFraPyat4MhEzmpc7shf3 miiHn9AibdWULjyeHzqUrzNJS0 z2TePg0pFWGazCC7lNL2kM9q MeZpYdJ8TGnqX295PwBkwZMjRe qrK23gW3CkvDG+UNZmAze7HBCy nTnkLB8bC2CgICBimfpmeZMi lGmtZA3cVAKbllwvZKZabZ3pAQ JgZ1a5XuBxBnG5RTafH5NmPCKh hmgcRx48eS6nQqHeQaC8BEap V8VqulP2LPMsyJEvTGlvXCU7K6 3sm6K6YLOgNALjSTR3tCV9zL0l bGlnbjogbGVmdDsgdmVydGlj LCuhUGlnG932RLVxkVavSwBaQL luZyBEYXRlOiAgMDYvMDYvMjAy NDwvdGQ+FZHzELR6uRjbEGVu vHVmUNnsBs9miGstqGmbGL1eVT PymuvjPXUduV6fPKFgjDVoeHmq QC1fQIBnubxjf217FaMyREY0 XMWwdEHzJ3GtdU3jGfWyEZUnUX VsC0IpiBSdIGuuE188MTbwAbW8 YCXjktApK5PcXSLteXdbMhY6 x2G4Fd9Og3AjvvazF0SyeLHsNd XyHdwbVFe3M5QcWzcucYY+PC90 IUFuLV24GFb4XQM3lGawQLta OTDgS3YllS7tYgLdHEPuCRMwYc c+PHRhYmxlIHdpZHRoPScxMDAl QiWxdWlhGY5zLs3mHZLqQDEa mQacvKPyPxFcz6ewVLCcXZzgEF 8kqHzuA7RpxDE5TENhk0d0Um17 L54oT9AxgZZ+OMMjtJI4mAM8 rK5hBsIbZnL0FWayH659AlUttA NvKewea7qxx8bihEw7RhV7RISy vxKbnTdbVJE7e1IaQx10O28p IHdpZHRoPSIxNSUiIHZhbGlnbj 9ueP5tAm9+UZAmsWB0wFW0kQ0e AfSnPpR5XDgkU966DgCdvOEa Qawyv9bpg5hwoKa1QoLwPDCyzc YfdGsdTBF2o6ZiXp31Y2OjsTxn c0KsLvh8jd63kBHlt4J6yOH0 U3ZcYWHxxptnzZJkwNcnHN7rZG XldcnkBPWrkB8wXWNeZ0g8HlOy XqA4XYtfG3FrijG2SDAesASo TEGaaEEDyB3llemag7xfgrfhQp TxKODrNDi4VZf3WDNghJhiKwSe CFM9VoQ4HWA1dXNreS9ywWqf ehlftP0mMnf+DIH4eSTsaCDLHO 1lOjwvdGQ+QDFtFEE5wUhjFIng DIXwhU6kQUSnK1q3PoMiTnN4 KGdzC6XbjdM5VKXhmFMpZINduP HLeY9ajpfgm1rtjnryMvKdEPFc LXa1MUf2CFPymCnrOoXtBMT6 IkI6UXK7bYJkpF3gvAapldiyaR 9wOyc+XvzuaBrgBJF1TWm2R0Bb Mtb2UCGznErfJW3pzDZmVGyv Vf4fnWjixWnsXJ8uKQNfbqrfj6 68ToKyh7hrVTYwnMUzIFxjBLK6 P19vo8T0XVWkRJCpAID9hTC2 eP0izVyqadvsjIQrlIcloyLamF qqBHgkFXvvR706RMJidDinKuRo IWj8W0VmPje6LKXzpQdjDD9y hQJbMZunVb2glQsknSxaWM1qWW Eccbtqs982SaSsz7zrWVXmgHNw HGkmULI5A86jl4I8COUwLVSm ZYV8kAY5nA5fyXeribkdjXUlcH qgoaVuqOjaSNhzMYtaM558QSIl bEexZwLpxYl1H2BfNvi2BHFi sYmhOE1qgXBbWSbsUb8coVqalS jwMQ5fWIBnqoejg138XuZjk5xz FCSrwASaOFomSWU1C18uw1I4 HYRxXXGlDZQ1oEA5cG2cjAvokl ogbGVmdDsgdmVydGljYWwtYWxp D677JKNnoYlxQoMutDcbenKj IWpeSVa9L7CeZqpkpBV+PC90YW RqUR68oUTwzJKfq6flyVw4TqRr HLFbQNN5kEgrXRaat2ZpUBSw M19fhCRrd2A0PZYnuWrrwIGhAr RxlYF7uD5gZIzbhmcjc4rxplpa Fzvmv6uddb16uM90Z68uFNsf DMKlQLCmLMNfQWAlrPvxwu9fkV 9wIi8+ILXhvSN6tHO7hL8xPXNp FgJ6YXspZ247HeDdgTEyRvnm z5bea2kziGf7KmR9IPBbgxJrxS yqHVL2w5AtAq56Q10pTDhrVSTg MTXxAEYqTAGpjKmekh8tyG7v Ii8+GAGqxFM2eZT6rF3gGcUvQv T5YIrhC386PdIwjDMxOhuuS53t M1OrvYL+VMQmBrh4YWUwxPht LK7siCBeZVetYh6iTCI6FaBjXp XhECtwG5LsHMBlvgimnvuwqXC4 JHKqIPWswS13Bs0uvDmpTJEr vBIDcN2jhrqxf9pdqrukAgRvKV AdJXn7BAn9CSWfaLheSvFtPVP7 ZbO3IYK2mRCopG8zyUqmpxal sT2lP4MkXSLdsseuPk03zA8eOa ZpHoE0TXpoHla+CqoNV0YlMCRO NG9mRzjurOE+GJAwPQG4lWen VYacFRNdkV5iNXCqX2e7NvYdHo W3RIzdE0HnLOMregwhWr28bO5e RyDyXhS9VTrkJ8PnbyO8PCDs dCLuOGrxNGW7H89xf4F4ZVXxKE VzPRN2vXP4hK7fwPrychdkuSTk mNgowvNacBaqNGzhNOpqW155 NYYraVvfRbLtEbO4WjB0JaC1S4 EuXxk8MVMsrBovML6cjCSiVBdo Vk7nbOiraNezKD2pPVSoifth OSMwfZ7rZODnhGJkrIfvGY2mXS Hknfahk960WfToDQV7QCWleMEk D4DbeZ9vMgErTAMvCLPyD8Tr jLZvSEokN420ZYxfJqY8DFTsrs NqU0HlUOAafTmaVyZ3g9T3Lo99 NyBZZWFyczwvdGQ+PHRkIHN0 aGjcCRxyYUWwsM4kTPJtM2e5Ut GvFeS3ZXtoV7AaXYEfxpwiGi01 jR4rGqDcAnY3QAehV1KvczO9 ODAgcOUwPVzwSEN8Q72pt4Q2AJ OuRSIeBJG9uIO6pL9oaRvhmkxm bGVmdDsgdmVydGljYWwtYWxp R343ACQemEhgIq8BFPK5U4PmUx k0ZQXhlSgiZZ9bmGKdXAwpGf6h pBbqkSgdSV3eXCBmtqtlVXYj mB2rJYNoqLHdqEiuCH2oTZDjck not272PbQzLPT7BWHihLLeE2Xy xM6oTeErLJBnIMXnN6DujIFa KLpwI381BNnhQbN1VTKdsaGwL0 QoXJRnyDflYpA2o1M1Xs1JSKJ8 vqVephyjY8S7pGK3dBXhiKni dGQ+XZ85kt47N9BbRbdfAxb7ON BkNGG4qFU2mI3tRLGoWQgyw7C2 vJT6N0JuqcKcth8nu6sfQGWa KOylN76kcTSkl1W4WZZgbAW1HH WjzAgsQhDejG45Xta+PGNvbGdy n2OuYkcyc3klb7iaiFn6JpPx GXAsctNjvEpvEFX5g7MeWe26W2 9sIHdpZHRoPSIzMCUiIHZhbGln wi8qqD3yWu0+PXBkiHZ1xTQ6 hS2oZdYdPxJ6MLwpK435VxToeF GiUtivw7zfa7bjzXh6ZfJcKIAo zqIvgIzzPMV4b4LvIr68C4Sb cIjxb0MqXsg8eu79iJYbo8R0dL G7C0FoYBPfedtasTOqhTsdTU3e IOUsuikbTXTumR2wLRGyU2u3 YmUsPvT9BRswU1SyfjH2WUJabW QhDMPfrCFNqP7dhuwpd3tsking ZvVfFEIiHJs9QEw5HDDarLww QhKrRMD1UvZ7JRL1gOUnxI2drW wdqlabiI3kFnq+HFz1y1bkvEFd WS4ffQH8SP85RI50qIMyy7P5 fCT4E2PcMYXqrlwxuotceUO9LU UfTWEzxV40Az2hkNikEk2xWYGv SRF3IUWwcODuH4UjkK7uDcUn PEUuKXUgV5HlbIApYVzoU870TC nnKzI2OTNaboLyZ5ZpMDGhzMlg JgY1b0H1Vf6VHU29OY73NE10 hJVzp8P0vHJ2T5ZjBAYozpbxpz zisKP2NHXkNJBzkN33Yh1geXbb Zj0tOVHdFPQ3LVDnnHVzH3Xw kM6mGuFtTYEgRECgQ8FrjRJbNK jcW660OYasUmD7CTMwrqVrR4Uy JMQhbRzmUrT6z9Q5Qz7FZo57 LT17EC49iFNsd0R5xFX7S2JhJZ BowmsutiunmJT7HMGcAFUalO23 Cm1lwRdyQy9gKSUrPPP2RPHt tUJnX6OsjK3pHiHyJYCpKYCaS1 TayQDxPRrxH346ZMrqMvY6TMUm ruOaL6LxJWVxoFhnQoV3b7N8 Oa1GZOzvyon1J0DvGcfyhHI+PC 15AGVsEJ77pJAxdRLwb5zdoXf5 XwFaUTNnQMF3oPlfLLgig3Nh ZXI (more content not included)... [facility] Outside Recordson 09-17-2023 Outside Records [id number]#1.00OTGTIF F [facility] XR hip RT min 2V(w/wo pelvis )*on 09-15-2023 XR hip RT min 2V(w/wo pelvis)* [facility] [address] [place] [address] XRay Report Signed Patient: Lyly Quinn MR#: [id number] : 1965 Acct:[id number] Age/Sex: 58 / M ADM Date: 09/15/23 Loc: [facility] [place] Room: Type: [facility] Attending Dr: Charles Claros MD Copies [...] Terrence Basurto M.D.09/15/2023 3:16 PM Dictation Location: [facility]--12 Transcribed By: [facility] 09/15/23 151 Dictated By: Terrence Basurto II, MD 09/15/231514 Signed By: 09/15/231515 Normal [facility] XR lumbar spine AP/LAT/FLX/E XTon 09-15-2023 XR lumbar spine AP/LAT/FLX/EXT [facility] [address] [place] [address] XRay Report Signed Patient: Lyly Quinn MR#: [id number] : 1965 Acct:[id number] Age/Sex: 58 / M ADM Date: 09/15/23 Loc: [facility] [place] Room: Type: [facility] Attending Dr: Charles Claros MD Copies [...] Terrence Basurto M.D.09/15/2023 3:19 PM Dictation Location: [place] [address] Transcribed By: RADHA 09/15/23 151 Dictated By: Terrence Basurto II, MD 09/15/231515 Signed By: 09/15/23 151 Normal [facility] ED Note - Provideron 024 ED Note - Provider [id number]#1.00OTGTIF F [facility] Lab - Other Lab [facility] - Other Lab Results [id number]#1.00OTGTIF F [facility] Provider Orderson 08-26-2023 Provider Orders [id number]#1.00OTGTIF F [facility] Outside Recordson 08-09-2023 Outside Records [id number]#1.00OTGTIFF [facility] NR MRI L-SPINE WOon 05-12-19 23 NR MRI L-SPINE WO Patient Name: LYLY QUINN STUDY: MRI L-SPINE WO; 05/12/2022 8:35 am INDICATION: acute right foot drop, previous surgery, had MRI 2 weeks ago with insufficient metal reduction unable to assess junctional levels M96.1: Lumbar postlaminectomy syndrome M21.371: Right foot drop. COMPARISON: Outside hospital MRI L-spine dated 04/30/2022 ACCESSION NUMBER(S): [id number] ORDERING CLINICIAN: BEE BLACKMON TECHNIQUE: Sagittal T1, [...] Alvarado. Electronically signed by: DILMA VERA MD [facility] MRI Lumbar Spine w/oon 04-30 [...] by Carlos Hayward on 05/01/2022 0917 Normal [facility] Established Visit (Orthopaed ic Surgery)on 04-27-2022 Established [...] is going to do this in the [place] at [facility], we will have them push the [...] 01/07/2021 10:40:28 AM Current Meds Medication NameInstruction Ptvjghbmvw-BTVF-Fpdetcbx 50-300-40 MG Oral CapsuleTAKE 1 CAPSULE BY [...] Apr 27 2022 10:06AM EST (Author) Normal [facility] CBC AUTO DIFFon 04-14-2022 BASO # 0.0 103/ul Normal 0.0-0.1 [facility] Comment on above: Performed By: #### C BC #### [facility] [address] [address] [address] Devonte Rivas Basophils/100 WBC (Bld) 0.4 % Normal 0.2-2.0 [facility] Comment on above: Performed By: #### C BC #### [facility] [address] [place], [place] [address] Dr. Devonte Rivas EO # 0.1 103/ul Normal 0.0-0.7 [facility] Comment on above: Performed By: #### C BC #### [facility] [address] [place] [address] Dr. Devonte Rivas Eosinophils/100 WBC (Bld) 0.9 % Normal 0.9-7.0 [facility] Comment on above: Performed By: #### C BC #### [facility] [address] [place] [address] Dr. Devonte Rivas Erythrocyte distribution width (RBC) [Ratio] 12.4 % Normal 11.0-15.0 [facility] Comment on above: Performed By: #### C BC #### [facility] [address] [place] [address] Dr. Devonte Rivas Hematocrit (Bld) [Volume fraction] 42.4 % Normal 42.0-54.0 [facility] Comment on above: Performed By: #### C BC #### [facility] [address] [place] [address] Dr. Devonte Rivas Hemoglobin (Bld) [Mass/Vol] 14.8 g/dL Normal 14.0-18.0 [facility] Comment on above: Performed By: #### C BC #### [facility] [address] [place] [address] Dr. Devonte Rivas IG # 0.03 10e3/ul Normal 0.00-0.03 [facility] Comment on above: Performed By: #### C BC #### [facility] [address] [place] [address] Dr. Devonte Rivas IG % 0.6 % Critically high 0.0-0.5 [facility] Comment on above: Performed By: #### C BC #### [facility] [address] [place] [address] Dr. Devonte Rivas LYMPH # 1.7 103/ul Normal 1.2-3.8 [facility] Comment on above: Performed By: #### C BC #### [facility] [address] [place] [address] Dr. Devonte Rivas Lymphocytes/100 WBC (Bld) 31.6 % Normal 20.5-60.0 [facility] Comment on above: Performed By: #### C BC #### [facility] [address] [place] [address] Dr. Devonte Rivas MANUAL DIFF REQ NO Normal [facility] Comment on above: Performed By: #### C BC #### [facility] [address] [place] [address] Dr. Devonte Rivas MCH (RBC) [Entitic mass] 31.3 pg Normal 25.9-34.0 [facility] Comment on above: Performed By: #### C BC #### [facility] [address] [place] [address] Dr. Devonte Rivas MCHC (RBC) [Mass/Vol] 34.9 g/dL Normal 29.9-35.2 [facility] Comment on above: Performed By: #### C BC #### [facility] [address] [place] [address] Dr. Devonte Rivas MCV (RBC) [Entitic vol] 89.6 fL Normal 80.0-94.0 [facility] Comment on above: Performed By: #### C BC #### [facility] [address] [place] [address] Dr. Devonte Rivas MONO # 0.9 103/ul Critically high 0.3-0.8 [facility] Comment on above: Performed By: #### C BC #### [facility] [address] [place] [address] Dr. Devonte Rivas Monocytes/100 WBC (Bld) 15.6 % Critically high 1.7-12.0 [facility] Comment on above: Performed By: #### C BC #### [facility] [address] [place] [address] Dr. Devonte Rivas NEUT # 2.8 103/ul Normal 1.4-6.5 [facility] Comment on above: Performed By: #### C BC #### [facility] [address] [place] [address] Dr. Devonte Rivas Neutrophils/100 WBC (Bld) 50.9 % Normal 43.0-75.0 [facility] Comment on above: Performed By: #### C BC #### [facility] [address] [address] [address] Devonte Rivas Platelet mean volume (Bld) [Entitic vol] 9.4 fL Critically low 9.5-13.5 [facility] Comment on above: Performed By: #### C BC #### [facility] [address] [address] [address] Devonte Rivas PLT 194 103/ul Normal 150-450 [facility] Comment on above: Performed By: #### C BC #### [facility] [address] [address] [address] Devonte Rivas RBC 4.73 106/ul Normal 4.70-6.10 [facility] Comment on above: Performed By: #### C BC #### [facility] [address] [address] [address] Devonte Rivas WBC 5.4 103/ul Normal 4.0-11.0 [facility] Comment on above: Performed By: #### C BC #### [facility] [address] [place] [address] Dr. Devonte Rivas CTA CHEST WO W [...] 10:29 Normal [facility]-20 SARS-CoV-2 (COVID-19) RNA LEATHA+probe Ql (Unsp [...] for this test is supported by the [place] of Health and Human Service's declaration that [...] used). Performed By: #### C VDTBH #### [facility] [address] [place] [address] Dr. Devonte Rivas INFLUENZA A AND B AGon 04-14 [facility] SEE BELOW Normal [facility] Comment on above: Result Comment: Nega tive for Flu A protein angiten. Infection due to Flu A cannot be ruled out. Flu A angiten in the sample may be below the detection limit of the test. Performed By: #### I NFLUAB #### [facility] [address] [place] [address] Dr. Devonte Rivas INFLUBNEG SEE BELOW Normal [facility] Comment on above: Result Comment: Nega tive for Flu B protein antigen. Infection due to Flu B cannot be ruled out. Flu B antigen in the sample may be below the detection limit of the test. Performed By: #### I NFLUAB #### [facility] [address] [place] [address] Dr. Devonte Rivas INFLUENZA A AG Negative Normal NEGATIVE SEE COMMENT [facility] Comment on above: Performed By: #### I NFLUAB #### [facility] [address] [address] [address] Devonte Rivas INFLUENZA B AG Negative Normal NEGATIVE SEE COMMENT [facility] Comment on above: Performed By: #### I NFLUAB #### [facility] [address] [place] [address] Dr. Devonte Rivas INTERNAL CONTROLS Within Normal Limits Normal Wi thin Normal Limits [facility] Comment on above: Performed By: #### I NFLUAB #### [facility] [address] [address] [address] Devonte Rivas PROF CHEM 8 (BAS METB)on Anion gap [Moles/Vol] 12.0 mmol/L Normal Th [facility] Comment on above: Performed By: #### H CECELIA, BMP #### [facility] [address] [place] [address] Dr. Devonte Rivas Calcium [Mass/Vol] 9.2 mg/dL Normal 8.5-10.1 [facility] Comment on above: Performed By: #### H CECELIA, BMP #### [facility] [address] [place] [address] Dr. Devonte Rivas Chloride [Moles/Vol] 100 mmol/L Normal 98-107 [facility] Comment on above: Performed By: #### H CECELIA, BMP #### [facility] [address] [place] [address] Dr. Devonte Rivas CO2 [Moles/Vol] 26.2 mmol/L Normal 21.0-32.0 [facility] Comment on above: Performed By: #### H CECELIA, BMP #### [facility] [address] [place] [address] Dr. Devonte Rivas Creatinine [Mass/Vol] 0.99 mg/dL Normal 0.70-1.30 [facility] Comment on above: Performed By: #### H CECELIA, BMP #### [facility] [address] [place] [address] Dr. Devonte Rivas EGFR-AF CITIZEN [place] >60 Normal >=60 [facility] Comment on above: Performed By: #### H CECELIA, BMP #### [facility] [address] [address] [address] Devonte Rivas EGFR-NON AF CITIZEN OF [place] >60 Normal >=60 [facility] Comment on above: Performed By: #### H CECELIA, BMP #### [facility] [address] [address] [address] Devonte Rivas Glucose [Mass/Vol] 163 mg/dL Critically high 74-106 [facility] Comment on above: Performed By: #### H CECELIA, BMP #### [facility] [address] [place] [address] Dr. Devonte Rivas Potassium [Moles/Vol] 4.2 mmol/L Normal 3.5-5.1 [facility] Comment on above: Performed By: #### H CECELIA, BMP #### [facility] [address] [place] [address] Dr. Devonte Rivas Sodium [Moles/Vol] 134 mmol/L Critically low 136-145 [facility] Comment on above: Performed By: #### H CECELIA, BMP #### [facility] [address] [place] [address] Dr. Devonte Rivas Urea nitrogen [Mass/Vol] 11.0 mg/dL Normal 7.0-18.0 [facility] Comment on above: Performed By: #### H CECELIA, BMP #### [facility] [address] [place] [address] Dr. Devonte Rivas Urea nitrogen/Creatinine [Mass ratio] 11.1 mg/mg Normal [facility] Comment on above: Performed By: #### H CECELIA, BMP #### [facility] [address] [place] [address] Dr. Devonte Rivas TROPONIN, HIGH SENSITIVITYon 04-14-2022 HSTROP <4.0 Normal 4.0-76.1 [facility] Comment on above: Result Comment: CUT- OFF POINTS HAVE BEEN ESTABLISHED BASED ON THE FOURTH UNIVERSAL DEFINITIONS OF MYOCARDIAL INFARCTION. THE UPPER REFERENCE LIMIT (URL) OF TROPONIN, DEFINED THE 99TH PERCENTILE OF cTnI DISTRIBUTION IN A REFERENCE POPULATION, HAS BEEN CONFIRMED THE DECISION THRESHOLD FOR NE DIAGNOSIS. Performed By: #### H CECELIA, BMP #### [facility] [address] [place], [place] [address] Dr. Devonte Rivas XR CHEST 1 Von 04-14-2022 XR CHEST 1 V EXAM: Chest x-ray HISTORY: . SHORTNESS OF BREATH . COMPARISON: 10/26/2010 TECHNIQUE: Frontal and lateral chest. FINDINGS: Heart and vascularity are unremarkable. Lungs are free of focal infiltrates. EKG leads overlie the chest. Impression: No acute heart or lung disease identified. Electronically authenticated by: DANIEL MALDONADO Date: 2022-04-14 09:12 Normal [facility] Established Visit (Orthopaed ic Surgery)on 09-29-2021 [...] 01/07/2021 10:40:28 AM Current Meds Medication NameInstruction Lxxomvjcfr-ZXEZ-Qcnydqhp 50-300-40 MG Oral CapsuleTAKE 1 CAPSULE BY [...] Sep 29 2021 12:05PM EST (Author) Normal [facility] Office Visiton 09-16-2021 Follow-up visit Diagnoses/Problems Class [...] for weight loss may be short or halfway, but that if weight loss is not [...] of coffee (black) V8 juice L - [place] (low calorie tortilla) turkey with salad D [...] Social Hx: Lives with: Spouse 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 Normal [facility] MRI Lumbar Spine w/oon 09-05 MRI Lumbar [...] by Chandler Tomlinson on 09/08/2021 1127 Normal [facility] Specialist CT Abdomen/Pelvis w/ [place] ton 08-05-2021 CT [...] by Chandler Tomlinson on 08/06/2021 0906 Normal [facility] Established Visit (Orthopaed ic Surgery)on 07-28-2021 Established Visit (Orthopaedic Surgery) Diagnoses/Problems Assessed Lumbar postlaminectomy syndrome (722.83) (M96.1) Orders Lumbar postlaminectomy syndrome MRI L Spine without Contrast; Status:Hold For - Scheduling,Retrospective Authorization; Requested for:[id number]; Radiologist to Determine Optimal Study : Y Does the patient have a Cochlear Implant, Pacemaker, Defibrilator, Pacing Wire, Brain Aneurysm Clip, Implanted Nerve or Bone Graft Simulator, Implanted Breast Tissue Vacuum Repairer, Glucose Monitor, or Neulasta Device? : No [...] 01/07/2021 10:40:28 AM Current Meds Medication NameInstruction Pluvzsdtct-ITMS-Lytpualo 50-300-40 MG Oral CapsuleTAKE 1 CAPSULE BY [...] Jul 28 2021 11:54AM EST (Author) Normal [facility] Office Visiton 06-18-2021 Follow-up visit Diagnoses/Problems Class [...] - continue to follow reduced kcal diet, 3927-3281 focus on protein at each meal, unprocessed [...] for weight loss may be short or halfway, but that if weight loss is not [...] coffee and V8 L - yogurt, granola (indonesian yogurt, 1/4 cup granola), cream of corn 1 cup Snack - pop corner 100 calorie bag D - veggie burger with greenlandic cheese AND onion (2 burgers) low calorie [...] Social Hx: Lives with: Spouse 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 Normal [facility] Nutrition-[place] 05-06-2021 Nutrition-Adult Medical Diagnosis Assessed Class [...] fatty acids and low saturated fat content. [place], mackerel, albacore tuna, sardines, mills and franco [...] occasionally snack (more content not included)... Normal [facility] No Panel Informationon 04-23 3638 1 [facility] [place] [id number] Work Phone: [phone] [facility] [place] [facility] Work Phone: [phone] [facility] [place] [facility] Work Phone: [phone] [facility] [place] [facility] Work Phone: Comment on above: Age: 56Height: 73 in Sex: MLevel of Activity: Sedentary (little or no exercise)Weight: 292 lb 2138 1 [facility] [place] [facility] Work Phone: [phone] [facility] [place] [facility] Work Phone: Tobacco Screening.on 022 Fall risk assessment a) No falls within the last year [facility] [place] [facility] Work Phone: Tobacco use status CPHS b) No [facility] [place] [facility] Work Phone: Radiologyon 03-10-2021 XR Lumbar spine AP and Lateral Please click on the link to view the study images Normal [facility] Work Phone: SPINE, LUMBOSACRAL; 2 OR 3 V IEWSon 03-10-2021 SPINE, LUMBOSACRAL; 2 OR 3 VIEWS Patient Name: LYLY QUINN STUDY: SPINE, LUMBOSACRAL; 2 OR 3 VIEWS; ; 03/10/2021 11:16 am INDICATION: pain M96.1: Lumbar postlaminectomy syndrome M48.062: Spinal stenosis of lumbar region with neurogenic claudication. COMPARISON: 12/09/2020. ACCESSION NUMBER(S): [id number] ORDERING CLINICIAN: BEE BLACKMON FINDINGS: Lumbosacral spine [...] Electronically signed by: JANET VILLARREAL MD Normal [facility] Radiologyon 12-09-2020 XR Lumbar spine AP and Lateral Please click on the link to view the study images Normal [facility] [facility] Work Phone: SPINE, LUMBOSACRAL; 2 OR 3 V IEWSon 12-09-2020 SPINE, LUMBOSACRAL; 2 OR 3 VIEWS Patient Name: LYLY QUINN STUDY: Lumbar Spine, 2 views. INDICATION: low back pain. COMPARISON: Outside hospital lumbar spine radiographs 08/29/2020 ACCESSION NUMBER(S): [id number] ORDERING CLINICIAN: BEE BLACKMON FINDINGS: Redemonstration of [...] Electronically signed by: WILLIAMS GUZMAN MD Normal [facility] BASIC METABOLIC PANELon 11-17 ANION GAP Canceled Normal [facility] Comment on above: Order Comment: TEST BASIC METABOLIC PANEL WAS CANCELLED, 12/01/2020 18:56 NO SPECIMEN RECEIVED IN LAB. Performed By: #### B MP #### [facility] [address] [place] [address] BICARBONATE Canceled Normal [facility] Comment on above: Order Comment: TEST BASIC METABOLIC PANEL WAS CANCELLED, 12/01/2020 18:56 NO SPECIMEN RECEIVED IN LAB. Performed By: #### B MP #### [facility] [address] [place] [address] CALCIUM Canceled Normal [facility] Comment on above: Order Comment: TEST BASIC METABOLIC PANEL WAS CANCELLED, 12/01/2020 18:56 NO SPECIMEN RECEIVED IN LAB. Performed By: #### B MP #### [facility] [address] [place] [address] CHLORIDE Canceled Normal [facility] Comment on above: Order Comment: TEST BASIC METABOLIC PANEL WAS CANCELLED, 12/01/2020 18:56 NO SPECIMEN RECEIVED IN LAB. Performed By: #### B MP #### [facility] [address] [place] [address] CREATININE Canceled Normal [facility] Comment on above: Order Comment: TEST BASIC METABOLIC PANEL WAS CANCELLED, 12/01/2020 18:56 NO SPECIMEN RECEIVED IN LAB. Performed By: #### B MP #### [facility] [address] [place] [address] GFR- AM. Canceled Normal [facility] Comment on above: Order Comment: TEST BASIC METABOLIC PANEL WAS CANCELLED, 12/01/2020 18:56 NO SPECIMEN RECEIVED IN LAB. Result Comment: CALC ULATIONS OF ESTIMATED GFR ARE PERFORMED USING THE MDRD STUDY EQUATION FOR THE IDMS-TRACEABLE CREATININE METHODS. CLIN CHEM 2007;53:766-72 Performed By: #### B MP #### [facility] [address] [place] [address] GFR-NON AM. Canceled Normal [facility] Comment on above: Order Comment: TEST BASIC METABOLIC PANEL WAS CANCELLED, 12/01/2020 18:56 NO SPECIMEN RECEIVED IN LAB. Performed By: #### B MP #### [facility] [address] [place] [address] GLUCOSE Canceled Normal [facility] Comment on above: Order Comment: TEST BASIC METABOLIC PANEL WAS CANCELLED, 12/01/2020 18:56 NO SPECIMEN RECEIVED IN LAB. Performed By: #### B MP #### [facility] [address] [place] [address] POTASSIUM Canceled Normal [facility] Comment on above: Order Comment: TEST BASIC METABOLIC PANEL WAS CANCELLED, 12/01/2020 18:56 NO SPECIMEN RECEIVED IN LAB. Performed By: #### B MP #### [facility] [address] [place] [address] SODIUM Canceled Normal [facility] Comment on above: Order Comment: TEST BASIC METABOLIC PANEL WAS CANCELLED, 12/01/2020 18:56 NO SPECIMEN RECEIVED IN LAB. Performed By: #### B MP #### [facility] [address] [place] [address] UREA NITROGEN Canceled Normal [facility] Comment on above: Order Comment: TEST BASIC METABOLIC PANEL WAS CANCELLED, 12/01/2020 18:56 NO SPECIMEN RECEIVED IN LAB. Performed By: #### B MP #### [facility] [address] [place] [address] CBCon 12-01-2020 HCT Canceled Normal [facility] Comment on above: Order Comment: TEST CBC WAS CANCELLED, 12/01/2020 18:56 NO SPECIMEN RECEIVED IN LAB. Performed By: #### C BC #### [facility] [address] [place] [address] HGB Canceled Normal [facility] Comment on above: Order Comment: TEST CBC WAS CANCELLED, 12/01/2020 18:56 NO SPECIMEN RECEIVED IN LAB. Performed By: #### C BC #### [facility] [address] [place] [address] MCHC Canceled Normal [facility] Comment on above: Order Comment: TEST CBC WAS CANCELLED, 12/01/2020 18:56 NO SPECIMEN RECEIVED IN LAB. Performed By: #### C BC #### [facility] [address] [place] [address] MCV Canceled Normal [facility] Comment on above: Order Comment: TEST CBC WAS CANCELLED, 12/01/2020 18:56 NO SPECIMEN RECEIVED IN LAB. Performed By: #### C BC #### [facility] [address] [place] [address] NUCLEATED RBC Canceled Normal [facility] Comment on above: Order Comment: TEST CBC WAS CANCELLED, 12/01/2020 18:56 NO SPECIMEN RECEIVED IN LAB. Performed By: #### C BC #### [facility] [address] [place] [address] PLT Canceled Normal [facility] Comment on above: Order Comment: TEST CBC WAS CANCELLED, 12/01/2020 18:56 NO SPECIMEN RECEIVED IN LAB. Performed By: #### C BC #### [facility] [address] [place] [address] RBC Canceled Normal [facility] Comment on above: Order Comment: TEST CBC WAS CANCELLED, 12/01/2020 18:56 NO SPECIMEN RECEIVED IN LAB. Performed By: #### C BC #### [facility] [address] [place] [address] RDW-CV Canceled Normal [facility] Comment on above: Order Comment: TEST CBC WAS CANCELLED, 12/01/2020 18:56 NO SPECIMEN RECEIVED IN LAB. Performed By: #### C BC #### [facility] [address] [place] [address] WBC Canceled Normal [facility] Comment on above: Order Comment: TEST CBC WAS CANCELLED, 12/01/2020 18:56 NO SPECIMEN RECEIVED IN LAB. Performed By: #### C BC #### [facility] [address] [place] [address] BASIC METABOLIC PANELon 11-17 ANION GAP Canceled Normal [facility] Comment on above: Order Comment: TEST BASIC METABOLIC PANEL WAS CANCELLED, 11/29/2020 10:53 NO SPECIMENRECEIVED IN LAB. Performed By: #### B MP ####[id number] [place] [address] BICARBONATE Canceled Normal [facility] Comment on above: Order Comment: TEST BASIC METABOLIC PANEL WAS CANCELLED, 11/29/2020 10:53 NO SPECIMENRECEIVED IN LAB. Performed By: #### B MP ####[id number] [place] [address] CALCIUM Canceled Normal [facility] Comment on above: Order Comment: TEST BASIC METABOLIC PANEL WAS CANCELLED, 11/29/2020 10:53 NO SPECIMENRECEIVED IN LAB. Performed By: #### B MP ####[id number] [place] [address] CHLORIDE Canceled Normal [facility] Comment on above: Order Comment: TEST BASIC METABOLIC PANEL WAS CANCELLED, 11/29/2020 10:53 NO SPECIMENRECEIVED IN LAB. Performed By: #### B MP ####[id number] [place] [address] CREATININE Canceled Normal [facility] Comment on above: Order Comment: TEST BASIC METABOLIC PANEL WAS CANCELLED, 11/29/2020 10:53 NO SPECIMENRECEIVED IN LAB. Performed By: #### B MP ####[id number] [place] [address] GFR- AM. Canceled Normal [facility] Comment on above: Order Comment: TEST BASIC METABOLIC PANEL WAS CANCELLED, 11/29/2020 10:53 NO SPECIMENRECEIVED IN LAB. Result Comment: CALC ULATIONS OF ESTIMATED GFR ARE PERFORMED USING THE MDRD STUDY EQUATION FOR THE IDMS-TRACEABLE CREATININE METHODS. CLIN CHEM 2007;53:766-72 Performed By: #### B MP ####[id number] [place] [address] GFR-NON AM. Canceled Normal [facility] Comment on above: Order Comment: TEST BASIC METABOLIC PANEL WAS CANCELLED, 11/29/2020 10:53 NO SPECIMENRECEIVED IN LAB. Performed By: #### B MP ####[id number] [place] [address] GLUCOSE Canceled Normal [facility] Comment on above: Order Comment: TEST BASIC METABOLIC PANEL WAS CANCELLED, 11/29/2020 10:53 NO SPECIMENRECEIVED IN LAB. Performed By: #### B MP ####[id number] [place] [address] POTASSIUM Canceled Normal [facility] Comment on above: Order Comment: TEST BASIC METABOLIC PANEL WAS CANCELLED, 11/29/2020 10:53 NO SPECIMENRECEIVED IN LAB. Performed By: #### B MP ####[id number] [place] [address] SODIUM Canceled Normal [facility] Comment on above: Order Comment: TEST BASIC METABOLIC PANEL WAS CANCELLED, 11/29/2020 10:53 NO SPECIMENRECEIVED IN LAB. Performed By: #### B MP ####[id number] [place] [address] UREA NITROGEN Canceled Normal [facility] Comment on above: Order Comment: TEST BASIC METABOLIC PANEL WAS CANCELLED, 11/29/2020 10:53 NO SPECIMENRECEIVED IN LAB. Performed By: #### B MP ####[id number] [place] [address] CBCon 11-29-2020 HCT Canceled Normal [facility] Comment on above: Order Comment: TEST CBC WAS CANCELLED, 11/29/2020 10:53 NO SPECIMEN RECEIVED IN LAB. Performed By: #### C BC ####[id number] [place] [address] HGB Canceled Normal [facility] Comment on above: Order Comment: TEST CBC WAS CANCELLED, 11/29/2020 10:53 NO SPECIMEN RECEIVED IN LAB. Performed By: #### C BC ####[id number] [place] [address] MCHC Canceled Normal [facility] Comment on above: Order Comment: TEST CBC WAS CANCELLED, 11/29/2020 10:53 NO SPECIMEN RECEIVED IN LAB. Performed By: #### C BC ####[id number] [place] [address] MCV Canceled Normal [facility] Comment on above: Order Comment: TEST CBC WAS CANCELLED, 11/29/2020 10:53 NO SPECIMEN RECEIVED IN LAB. Performed By: #### C BC ####[id number] [place] [address] NUCLEATED RBC Canceled Normal [facility] Comment on above: Order Comment: TEST CBC WAS CANCELLED, 11/29/2020 10:53 NO SPECIMEN RECEIVED IN LAB. Performed By: #### C BC ####[id number] [place] [address] PLT Canceled Normal [facility] Comment on above: Order Comment: TEST CBC WAS CANCELLED, 11/29/2020 10:53 NO SPECIMEN RECEIVED IN LAB. Performed By: #### C BC ####[id number] [place] [address] RBC Canceled Normal [facility] Comment on above: Order Comment: TEST CBC WAS CANCELLED, 11/29/2020 10:53 NO SPECIMEN RECEIVED IN LAB. Performed By: #### C BC ####[id number] [place] [address] RDW-CV Canceled Normal [facility] Comment on above: Order Comment: TEST CBC WAS CANCELLED, 11/29/2020 10:53 NO SPECIMEN RECEIVED IN LAB. Performed By: #### C BC ####[id number] [place] [address] WBC Canceled Normal [facility] Comment on above: Order Comment: TEST CBC WAS CANCELLED, 11/29/2020 10:53 NO SPECIMEN RECEIVED IN LAB. Performed By: #### C BC ####[id number] [place] [address] BASIC METABOLIC PANELon 08- Anion gap [Moles/Vol] 15 mmol/L Normal 10 - 20 [facility] Comment on above: Performed By: #### B MP #### [facility] [address] [place] [address] Calcium [Mass/Vol] 9.7 mg/dL Normal 8.6 - 10.6 [facility] Comment on above: Performed By: #### B MP #### [facility] [address] [place] [address] Chloride [Moles/Vol] 99 mmol/L Normal 98 - 107 [facility] Comment on above: Performed By: #### B MP #### [facility] [address] [place] [address] Creatinine [Mass/Vol] 0.81 mg/dL Normal 0.50 - 1.30 [facility] Comment on above: Performed By: #### B MP #### [facility] [address] [place] [address] GFR- AM. >60 Normal >60 [facility] Comment on above: Result Comment: CALC ULATIONS OF ESTIMATED GFR ARE PERFORMED USING THE MDRD STUDY EQUATION FOR THE IDMS-TRACEABLE CREATININE METHODS. CLIN CHEM 2007;53:766-72 Performed By: #### B MP #### [facility] [address] [place] [address] GFR-NON AM. >60 Normal >60 [facility] Comment on above: Performed By: #### B MP #### [facility] [address] [place] [address] Glucose [Mass/Vol] 188 mg/dL High 74 - 99 [facility] Comment on above: Performed By: #### B MP #### [facility] [address] [place] [address] HCO3 (Bld) [Moles/Vol] 26 mmol/L Normal 21 - 32 [facility] Comment on above: Performed By: #### B MP #### [facility] [address] [place] [address] Potassium [Moles/Vol] 5.1 mmol/L Normal 3.5 - 5.3 [facility] Comment on above: Performed By: #### B MP #### [facility] [address] [place] [address] Sodium [Moles/Vol] 135 mmol/L Low 136 - 145 [facility] Comment on above: Performed By: #### B MP #### [facility] [address] [place] [address] Urea nitrogen [Mass/Vol] 16 mg/dL Normal 6 - 23 [facility] Comment on above: Performed By: #### B MP #### [facility] [address] [place] [address] CBCon 11-27-2020 Erythrocyte distribution width (RBC) [Ratio] 12.8 % Normal 11.5 - 14.5 [facility] Comment on above: Performed By: #### C BC #### [facility] [address] [place] [address] Hematocrit (Bld) [Volume fraction] 43.9 % Normal 41.0 - 52.0 [facility] Comment on above: Performed By: #### C BC #### [facility] [address] [place] [address] Hemoglobin (Bld) [Mass/Vol] 14.2 g/dL Normal 13.5 - 17.5 [facility] Comment on above: Performed By: #### C BC #### [facility] [address] [place] [address] MCHC (RBC) [Mass/Vol] 32.3 g/dL Normal 32.0 - 36.0 [facility] Comment on above: Performed By: #### C BC #### [facility] [address] [place] [address] MCV (RBC) [Entitic vol] 94 fL Normal 80 - 100 [facility] Comment on above: Performed By: #### C BC #### [facility] [address] [place] [address] NUCLEATED RBC 0.0 /100 WBC Normal 0.0-0.0 [facility] Comment on above: Performed By: #### C BC #### [facility] [address] [place] [address] Platelets (Bld) [#/Vol] 237 10*3/uL Normal 150 - 450 [facility] Comment on above: Performed By: #### C BC #### [facility] [address] [place] [address] RBC 4.65 x10E12/L Normal 4.50 - 5.90 [facility] Comment on above: Performed By: #### C BC #### [facility] [address] [place] [address] WBC (Bld) [#/Vol] 8.5 10*3/uL Normal 4.4 - 11.3 [facility] Comment on above: Performed By: #### C BC #### [facility] [address] [place] [address] Daily Progress Note-Orthopae thanh 11-27-2020 Daily Progress Note-Orthopaedics Service: Orthopaedics Subjective [...] advance as tolerated. Bowel regimen - dc WARP DRAWER, POPM starting POD1. Scheduled tylenol. Robaxin. Continue [...] Kevin Marshall MD, PGY-2 Orthopedic Spine Team [id number] Available on [facility] Sp[facility] Team Kevin Marshall, PGY-2 ([id number]) Amrit Long PGY-3 ([id number]) Lambert Suarez PGY-4 ([id number]) Please call operations expert resident ([phone]) nights after 6pm and weekends Attestation: Note [...] Updated: 11-Dec-2020 15:25 by Bee Blackmon) Normal [facility] Laboratory - Chemistry and C hemistry - challengeon 11-27-2020 Anion gap [Moles/Vol] 15 mmol/L 10 - 20 MG- Orthopae [facility] Work Phone: Calcium [Mass/Vol] 9.7 mg/dL 8.6 - 10.6 MG-Ort hopae dics-[facility] Work Phone: [phone] Chloride [Moles/Vol] 99 mmol/L 98 - 107 [facility]-O rthopae [facility]ics[facility] Work Phone: [phone] CO2 [Moles/Vol] 26 mmol/L 21 - 32 [facility]-Orthop ae [facility] Work Phone: [phone] Creatinine [Mass/Vol] 0.81 mg/dL See Below MG- Orthopae dics[facility] Work Phone: [phone] Comment on above: Reference Range: 0.5 0 - 1.30 Glucose [Mass/Vol] 188 mg/dL above high threshold 74 - 99 [facility]opae [facility] Work Phone: [phone] Potassium [Moles/Vol] 5.1 mmol/L 3.5 - 5.3 MG- Orthopae [facility] Work Phone: [phone] Sodium [Moles/Vol] 135 mmol/L below low threshold 136 - 145 [facility]opae [facility] Work Phone: [phone] Urea nitrogen [Mass/Vol] 16 mg/dL 6 - 23 [facility]opae [facility] Work Phone: [phone] Laboratory - Hematology and Cell countson 11-27-2020 Erythrocyte distribution width (RBC) [Ratio] 12.8 % See Below MG-Orthopae [facility] Work Phone: Comment on above: Reference Range: 11. 5 - 14.5 Hematocrit (Bld) [Volume fraction] 43.9 % See Below [facility]-Orthopae [facility] Work Phone: [phone] Comment on above: Reference Range: 41. 0 - 52.0 Hemoglobin (Bld) [Mass/Vol] 14.2 g/dL See Below MG-Orthopae [facility] Work Phone: Comment on above: Reference Range: 13. 5 - 17.5 MCHC (RBC) [Mass/Vol] 32.3 g/dL See Below MG- Orthopae dics[facility] Work Phone: Comment on above: Reference Range: 32. 0 - 36.0 MCV (RBC) [Entitic vol] 94 fL 80 - 100 [facility]opae [facility]io[facility] Work Phone: Platelets (Bld) [#/Vol] 237 10*3/uL 150 - 450 MG-Orthopae dicmel-[facility] Work Phone: RBC (Bld) [#/Vol] 4.65 {x10E12/L} See Below MG -Orthopae [facility] Work Phone: Comment on above: Reference Range: 4.5 0 - 5.90 WBC (Bld) [#/Vol] 8.5 10*3/uL 4.4 - 11.3 MG-Ort hopae [facility] Work Phone: No Panel Informationon 11-27 >60 >60 [facility]-Orthopae [facility] Work Phone: Comment on above: CALCULATIONS OF LUCHO MATED GFR ARE PERFORMED USING THE MDRD STUDY EQUATION FOR THE IDMS-TRACEABLE CREATININE METHODS. CLIN CHEM 2007;53:766-72 0.0 {/100_WBC} 0.0-0.0 MG-Orthopa e [facility] Work Phone: Daily Progress Note-Balta law 11-26-2020 [...] diet, advance as tolerated. 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 Scheduled tylenol. [...] Lambert Suarez MD Orthopedic Surgery PGY-4 Pager: [phone] Please page consult resident [phone]) from 6pm-8am and on weekends. Attestation: Note [...] the note. I personally evaluated the patient [id number] Electronic Signatures: Bee Blackmon) (Signed 11-Dec-2020 15:23) Authored: Note Completion Co-Signer: Service, Subjective Data, Objective Data, Assessment and Plan, Note Completion Lambert Suarez (Resident)) (Signed 26-Nov-2020 14:32) Authored: Service, Subjective Data, Objective Data, Assessment and Plan, Note Completion Last Updated: 11-Dec-2020 15:23 by Bee Blackmon) Normal [facility] Discharge [id number] Discharge Profile2 Discharge Orders: Significant Events: [...] Spine Reason for ReferralPostoperative Follow-Up Appointment Scheduled Date/[id number] 11:15 [id number] [facility] [address], Phone NumberOffice: ([place], Sec.) - [phone] CommentsPlease Call Tara Gonzalez RN at [phone] For Any Post-Op Questions Electronic Signatures: Tara Gonzalez (RN) (Signed 26-Nov-2020 13:51) Authored: Discharge Orders, Appointments, Gold Form - Ela Teacher Summary Bee Blackmon) (Signed 10-Dec-2020 17:40) Co-Signer: Discharge Orders, Hospital Course (Home Care/Gold Form), Provider FINAL REVIEW of Orders, Appointments, Gold Form - Ela Teacher Summary Lambert Suarez (Resident)) (Signed 26-Nov-2020 14:34) Entered: Hospital Course (Home Care/Gold Form), Provider FINAL REVIEW of Orders Authored: Discharge Orders, Hospital Course (Home Care/Gold Form), Provider FINAL REVIEW of Orders, Appointments, Gold Form - Ela Teacher Summary Last Updated: 10-Dec-2020 17:40 by Bee Blackmon) Normal [facility] GLUCOSE-POCTon 11-26-2020 Glucose [Mass/Vol] 186 mg/dL High 74 - 99 [facility] Comment on above: Performed By: #### G BABS #### [facility] [address] [place] [address] Laboratory - Chemistry and C hemistry - challengeon 11-26-2020 Glucose [Mass/Vol] 186 mg/dL above high threshold 74 - 99 MG-Orthopae dicmel[facility] Work Phone: No Panel Informationon 11-26 Please click on the link to view the study images Normal MG-Orthopae gio[facility] Work Phone: [facility] [place] [address] Patient Name: RYAN. Taylor QUINN : 1965 Date of Service: 11/26/2020 Patient Location: [place] [address] Patient Type: I Surgeon: Bee Blackmon MD [...] [employer] plate. SURGEON: Bee Blackmon MD BINDERY ASSISTANT(S): Lambert Suarez MD ANESTHESIA: General. CLINICAL NOTE [...] confirm retractor (more content not included)... Normal [facility] Order Reconciliationon 11-26 Order Reconciliation Page 1 Discharge Reconciliation Document Reconciliation Type: Discharge requested on behalf of Lambert Suarez (Resident) done by Lambert Suarez ( (Resident)) Discharge - Reconciliation: 26-Nov-2020 14:37 by: Lambert Suarze ( (Resident)) Home Medications EnteredHOME MEDICATIONS AT [...] days, th (more content not included)... Normal [facility] Order Reconciliation Page 1 Admission Reconciliation Document Reconciliation Type: Admission from OR requested on behalf of Lambert Suarez (Resident) done by Lambert Suarez ( (Resident)) Admission from OR - Reconciliation: 26-Nov-2020 14:21 by: Lambert Suarez (Resident)) Home MedicationsEnteredLast Dose TakenReconciled with current Order Reconciliation Comment/ Additional Information DULoxetine 60 mg oral delayed release capsule 1 cap(s) orally once a day [id number] AM DULoxetine Delayed Release Capsule (CYMBALTA)DOSE = 60 mg Oral DailyDULoxetine 60 mg oral delayed release capsule continued as the inpatient order DULoxetine fenofibrate 48 mg oral tablet 1 tab(s) orally once a [id number]-Nov-2020 AM Reviewed and Held lisinopril 20 mg oral tablet 1 tab(s) orally once a [id number] AM Lisinopril Tablet (PRINIVIL, ZESTRIL)DOSE = 20 mg Oral Dailylisinopril 20 mg oral tablet continued as the inpatient order Lisinopril NexIUM 24HR 20 mg oral delayed release tablet 1 tab(s) orally once a day (in the morning)-2020 AM Pantoprazole Enteric Coated Tablet (PROTONIX)DOSE = [...] 15 minute(s)Clinician Notes: Charmaine-operative order ONLY Normal [facility] Patient Profile - Preop v2on 11-26-2020 Patient Profile - Preop v2 Profile: Initial Info: How to be AddressedRyan Spoken Language PreferredEnglish Stated Reason for Admissionl3-4 cage Primary Contact Name and NumberRenee, Patient Belongingssee preop checklist [facility]ations [facility]: Weight in kg129.7 kilogram(s) Weight in mra458.9 pound(s) Weight Methodactual (measured) Scale Typestanding Height [...] Learning Preferencesindividual instruction Cultural Considerationsnone Developmental Considerationsnone Adventism Considerationsnone Other learner availableno Falls RiskPatient location auto qualifies him/her for HIGH RISK. Are there any cultural, spiritual, episcopal practices/values/needs that are important for us to [...] 26-Nov-2020 12:05 by Pat Padilla (BENI) Normal [facility] (formerly [facility] Vital Signs Date Time Vital Sign Value Performing Clinician Facility 05-15-2024 17:25-0500 Body temperature 98.2 [degF] Kimi Weiss DO Work Phone: [facility] 05-15-2024 17:25-0500 Diastolic blood pressure 93 mm[Hg] Kimi Weiss DO Work Phone: [facility] 05-15-2024 17:25-0500 Heart rate 98 /min Kimi Weiss DO Work Phone: [facility] 05-15-2024 17:25-0500 Respiratory rate 22 /min Kimi Weiss DO Work Phone: [facility] 05-15-2024 17:25-0500 SaO2% (BldA) [Mass fraction] 100 % Kimi Weiss DO Work Phone: [facility] 05-15-2024 17:25-0500 Systolic blood pressure 153 mm[Hg] Kimi Weiss DO Work Phone: [facility] 05-15-2024 15:51-0500 Body height 182.88 cm Kimi Weiss DO Work Phone: [facility] 05-15-2024 15:51-0500 Body weight 120 kg Kimi Weiss DO Work Phone: [facility] 04-13-2024 14:18-0500 Diastolic blood pressure 75 mm[Hg] Kimi Weiss DO Work Phone: [facility] 04-13-2024 14:18-0500 Heart rate 94 /min Kimi Weiss DO Work Phone: [facility] 04-13-2024 14:18-0500 Respiratory rate 16 /min Kimi Weiss DO Work Phone: [facility] 04-13-2024 14:18-0500 SaO2% (BldA) [Mass fraction] 98 % Kimi Weiss DO Work Phone: [facility] 04-13-2024 14:18-0500 Systolic blood pressure 139 mm[Hg] Kimi Weiss DO Work Phone: [facility] 04-13-2024 12:18-0500 Body temperature 97.6 [degF] Kimi Weiss DO Work Phone: [facility] 04-13-2024 06:11-0500 Body weight 119.9 kg Kimi Weiss DO Work Phone: [facility] 04-10-2024 17:20-0500 Body height 182.88 cm Kimi Weiss DO Work Phone: [facility] 03-31-2024 10:46-0500 Body height 185.42 cm Kimi Weiss DO Work Phone: [facility] 03-31-2024 10:46-0500 Body mass index (BMI) [Ratio] 34.4 kg/m2 Kimi Weiss DO Work Phone: [facility] 03-31-2024 10:46-0500 Body temperature 97.7 [degF] Kimi Weiss DO Work Phone: [facility] 03-31-2024 10:46-0500 Body weight 118.38 kg Kimi Weiss DO Work Phone: [facility] 03-31-2024 10:46-0500 Diastolic blood pressure 88 mm[Hg] Kimi Weiss DO Work Phone: [facility] 03-31-2024 10:46-0500 Heart rate 118 /min Kimi Weiss DO Work Phone: [facility] 03-31-2024 10:46-0500 Respiratory rate 18 /min Kimi Weiss DO Work Phone: [facility] 03-31-2024 10:46-0500 SaO2% (BldA) [Mass fraction] 96 % Kimi Weiss DO Work Phone: [facility] 03-31-2024 10:46-0500 Systolic blood pressure 122 mm[Hg] Kimi Weiss DO Work Phone: [facility] 03-27-2024 09:46-0500 Body mass index (BMI) [Ratio] 34.72 kg/m2 Karon Rodriguez NP Work Phone: [facility] 03-27-2024 09:46-0500 Body weight 116.12 kg Karon Rodriguez PUBLIC RELATIONS SPECIALIST Work Phone: [facility] 03-27-2024 09:46-0500 Diastolic blood pressure 96 mm[Hg] Karon Rodriguez PUBLIC RELATIONS SPECIALIST Work Phone: [facility] 03-27-2024 09:46-0500 Heart rate 82 /min Karon Rodriguez PUBLIC RELATIONS SPECIALIST Work Phone: [facility] 03-27-2024 09:46-0500 Systolic blood pressure 148 mm[Hg] Karon Rodriguez PUBLIC RELATIONS SPECIALIST Work Phone: [facility] 09-15-2023 10:11-0400 Body height 184.15 cm DO Kimi Weiss Work Phone: [facility] 09-15-2023 10:11-0400 Body mass index (BMI) [Ratio] 35.2 kg/m2 DO Kimi Weiss Work Phone: [facility] 09-15-2023 10:11-0400 Body weight 119.29 kg DO Kimi Weiss Work Phone: [facility] 09-07-2023 10:35-0400 Diastolic blood pressure 98 mm[Hg] DO Kimi Weiss Work Phone: [facility] 09-07-2023 10:35-0400 Heart rate 102 /min DO Kimi Weiss Work Phone: [facility] 09-07-2023 10:35-0400 Respiratory rate 20 /min DO Kimi Weiss Work Phone: [facility] 09-07-2023 10:35-0400 SaO2% (BldA) [Mass fraction] 96 % DO Kimi Weiss Work Phone: [facility] 09-07-2023 10:35-0400 Systolic blood pressure 160 mm[Hg] DO Kimi Weiss Work Phone: [facility] 09-07-2023 10:00-0400 Inhaled oxygen flow rate 3 L/min DO Kimi Weiss Work Phone: [facility] 09-07-2023 09:19-0400 Body height 182.88 cm DO Kimi Weiss Work Phone: [facility] 09-07-2023 09:19-0400 Body weight 120.2 kg DO Kimi Weiss Work Phone: [facility] 09-16-2021 14:17-0400 Body mass index (BMI) [Ratio] 34.45 kg/m2 Kimi Weiss Work Phone: FM-Urkjtfb-Jlvzj [id number] Work Phone: 09-16-2021 14:17-0400 Body surface area Derived from formula 2.36 m2 Kimi Weiss Work Phone: EY-Gywfodk-Paext [id number] Work Phone: 09-16-2021 14:17-0400 Body weight 115.21 kg Kimi Weiss Work Phone: OH-Ipxsocn-Nvzvk [id number] Work Phone: 07-23-2021 09:45-0400 Body height 184.15 cm Charles Claros Other [employer] Other 07-23-2021 09:45-0400 Body mass index (BMI) [Ratio] 34.51 kg/m2 Charles Claros Other [employer] Other 07-23-2021 09:45-0400 Body weight 117.03 kg Charles Claros Other [employer] Other 06-18-2021 14:17-0500 Body mass index (BMI) [Ratio] 36.75 kg/m2 Kimi Weiss Work Phone: SG-Vurchhn-Bmsls [id number] Work Phone: 06-18-2021 14:17-0500 Body surface area Derived from formula 2.42 m2 Kimi Weiss Work Phone: PM-Sbxoatk-Vycxt [id number] Work Phone: 06-18-2021 14:17-0500 Body weight 122.93 kg Kimi Weiss Work Phone: NM-Vnpiymv-Ngqan [id number] Work Phone: 04-23-2021 09:49-0500 Body height 182.88 cm Kimi Weiss Work Phone: HM-Yhiiloa-Aajck [id number] Work Phone: 04-23-2021 09:49-0500 Body mass index (BMI) [Ratio] 39.6 kg/m2 Kimi Weiss Work Phone: AP-Kfsryps-Efgkb [id number] Work Phone: 04-23-2021 09:49-0500 Body surface area Derived from formula 2.5 m2 Kimi Weiss Work Phone: KS-Dfuzxun-Cabqj [id number] Work Phone: 04-23-2021 09:49-0500 Body weight 132.45 kg Kimi Weiss Work Phone: TL-Ggbfigq-Vqtpk [id number] Work Phone: 04-02-2021 09:45-0500 Body height 184.15 cm Charles Claros Other [employer] Other 04-02-2021 09:45-0500 Body mass index (BMI) [Ratio] 35.44 kg/m2 Charles Claros Other [employer] Other 04-02-2021 09:45-0500 Body weight 120.2 kg Charles Claros Other [employer] Other Encounters Encounter Date Encounter Type Care Provider Facility Start: 06-22-2024 End: 06-22-2024 Office consultation new/estab patient 60 min Radha Gates MD Work Phone: [facility] Comment on above: Postlaminectomy synd lorena, lumbar region (Primary Dx); Lumbar radiculopathy, chronic Start: 06-22-2024 End: 06-22-2024 ambulatory [facility] Start: 06-09-2024 ambulatory Kimi Weiss Facili ty:[facility] Start: 05-29-2024 ambulatory Kimi Weiss Facili ty: [facility] Start: 05-22-2024 ambulatory Kimi Weiss Facili ty:[facility] Start: 05-19-2024 ambulatory Kimi Weiss Facili ty: [facility] Start: 05-15-2024 End: 05-15-2024 Emergency department patient visit Kimi Weiss DO Work Phone: [facility] Work Phone: Start: 05-10-2024 End: 05-10-2024 ambulatory Kimi Weiss Facility:[facility] Start: 05-10-2024 End: 05-10-2024 ambulatory Kimi Weiss Facility: [facility] Start: 04-18-2024 End: 04-18-2024 ambulatory Kimi Weiss Facility: [facility] Start: 04-17-2024 ambulatory Kimi Weiss Facili ty: [facility] Start: 04-11-2024 Non-patient / Non-visit Kimi Weiss DO Work Phone: [facility] Work Phone: Start: 04-10-2024 End: 04-13-2024 ambulatory [address] [facility] Facility:[facility] Start: 04-10-2024 End: 04-13-2024 Evaluation and management of inpatient Kimi Weiss DO Work Phone: [facility] [place] [facility] Work Phone: Start: 04-10-2024 End: 04-10-2024 ambulatory Kimi Weiss Facility: [facility] Start: 04-08-2024 Non-patient / Non-visit Kimi Weiss DO Work Phone: [facility] Work Phone: Start: 04-07-2024 Non-patient / Non-visit Kimi Weiss DO Work Phone: [facility] Work Phone: Start: 04-06-2024 Non-patient / Non-visit Kimi Weiss DO Work Phone: [facility] Work Phone: Start: 04-03-2024 End: 04-03-2024 ambulatory Kimi Weiss Facility: [facility] Start: 04-02-2024 Non-patient / Non-visit Kimi Weiss DO Work Phone: [facility] Work Phone: Start: 03-31-2024 End: 03-31-2024 Patient encounter procedure Kimi Weiss DO Work Phone: [facility] Work Phone: Start: 03-27-2024 End: 03-27-2024 Bamboo flowsheet Karon Rodriguez PUBLIC RELATIONS SPECIALIST Work Phone: [facility] [address] Start: 03-27-2024 End: 03-27-2024 Bamboo flowsheet Karon Rodriguez PUBLIC RELATIONS SPECIALIST Work Phone: [facility] [address] Start: 03-27-2024 End: 03-27-2024 Office outpatient visit 25 minutes Karon Rodriguez PUBLIC RELATIONS SPECIALIST Work Phone: [facility] [address] Comment on above: Chronic cluster head ache, not intractable (Primary Dx); Essential hypertension (CMS/HCC); History of blood clots Start: 03-27-2024 End: 03-27-2024 ambulatory KARON RODRIGUEZ Not Available Start: 03-07-2024 ambulatory Kimi Weiss Facili ty:[facility] Start: 02-21-2024 End: 02-21-2024 ambulatory Kimi Weiss Facility: [facility] Start: 02-07-2024 End: 02-07-2024 ambulatory Kimi Weiss Facility: [facility] Start: 01-17-2024 End: 01-17-2024 Office outpatient visit 15 minutes Bee Blackmon MD Work Phone: [facility] Comment on above: Postlaminectomy synd lorena, lumbar region (Primary Dx) Start: 01-17-2024 End: 01-17-2024 ambulatory BEE BLACKMON [facility] Start: 01-03-2024 End: 01-03-2024 ambulatory Kimi Weiss Facility: [facility] Start: 11-30-2023 End: 11-30-2023 ambulatory KARON MICHAEL Not Available Start: 09-15-2023 End: 09-15-2023 ambulatory DO Kimi Weiss Work Phone: [facility] Work Phone: Start: 09-15-2023 End: 09-15-2023 Patient encounter procedure DO Kimi Weiss Work Phone: [facility] Work Phone: Start: 09-07-2023 Non-patient / Non-visit DO Mike Weiss Work Phone: [facility] Work Phone: Start: 09-07-2023 End: 09-07-2023 Admission to same day surgery center DO iKmi Weiss Work Phone: [facility] Work Phone: Start: 09-07-2023 End: 09-07-2023 ambulatory DO Kimi Weiss Work Phone: [facility] Work Phone: Start: 08-16-2023 [facility] Start: 08-09-2023 End: 08-09-2023 ambulatory THALIA SANDY Not Available Start: 08-05-2023 End: 08-05-2023 ambulatory [facility] Work Phone: Start: 08-05-2023 End: 08-05-2023 Patient encounter procedure [facility] Work Phone: Start: 04-22-2023 End: 04-22-2023 ambulatory Charles Brisenodelma Other [employer] Other Start: 04-22-2023 Telephone encounter Charles Claros [facility] [place] Start: 04-01-2023 End: 04-01-2023 ambulatory Charles Claros Other [employer] Other Start: 04-01-2023 Office outpatient vi sit 25 minutes Charles Claros [facility] [place] Start: 04-01-2023 Telephone encounter Charles HOLT [facility] Start: 01-21-2023 End: 01-21-2023 ambulatory Charles Claros Other [employer] Other Start: 01-21-2023 Office outpatient vi sit 25 minutes Charles Brisenoer [facility] [place] Start: 01-21-2023 Telephone encounter Charles HOLT [facility] Start: 10-06-2022 End: 10-06-2022 ambulatory Charles Claros Other [employer] Other Start: 10-06-2022 Office outpatient vi sit 25 minutes Charles Claros [facility] [place] Start: 10-06-2022 Telephone encounter Charles Claros [facility] Start: 07-23-2022 ambulatory Bee Blackmon Facility :[id number] Start: 06-01-2022 End: 06-01-2022 ambulatory Charles Claros Other [employer] Other Start: 06-01-2022 Office outpatient vi sit 25 minutes Charles Brisenoer [facility] [place] Start: 06-01-2022 Telephone encounter Charles Claros [facility] [place] Start: 05-13-2022 AUDIT Kimi Rasmussen on Work Phone: XD-Thbgjordopni-Kbrefj ke Work Phone: Start: 05-12-[address] Kimi Weiss Facility:[id number] Start: 04-27-2022 Office outpatient vi sit 40 minutes Kimi Weiss Work Phone: KX-Mkrblnxpgrwv-Bcomcy ke Work Phone: Start: 04-14-2022 End: 04-14-[address] DANIEL BENITEZ Facility:[id number] Start: 02-18-2022 End: 02-18-2022 ambulatory Charles Claros Other [employer] Other Start: 02-18-2022 Office outpatient vi sit 25 minutes Charles Claros [facility] [place] Start: 02-18-2022 Telephone encounter Charles Burnham [facility] Start: 12-15-2021 End: 12-15-2021 ambulatory Charles Claros Other [employer] Other Start: 12-15-2021 Office outpatient vi sit 25 minutes Charles Claros [facility] [place] Start: 09-29-2021 Office outpatient ne w 30 minutes Kimi Weiss Work Phone: HW-Nnxqdfygoott-Bjxfgn ke Work Phone: Start: 09-16-2021 Office outpatient vi sit 25 minutes Kimi Weiss Work Phone: ZJ-Khojbtq-Pjgmz [id number] Work Phone: Start: 07-28-2021 Office outpatient vi sit 15 minutes Kimi Weiss Work Phone: GY-Mrlkglxlsnge-Fcjner ke Work Phone: Start: 07-23-2021 End: 07-23-2021 ambulatory Charles Claros Other [employer] Other Start: 07-23-2021 Office outpatient vi sit 25 minutes Charles Claros [facility] [place] Start: 06-18-2021 Office outpatient vi sit 25 minutes Kimi Weiss Work Phone: DN-Cclfujp-Vtzff [facility] [address] Work Phone: Start: 06-03-2021 PAYAM, Provider : Shobha Gomez, Status: Pen, Time: 8:30 AM Kimi Weiss Work Phone: XS-Rcfzrox-Lyyxj [facility] [address] Work Phone: Start: 06-02-2021 AUDIT Kimi Rasmussen on Work Phone: RL-Uuhwngt-Bojqt [facility] [address] Work Phone: Start: 04-23-2021 Current tobacco non- user cad cap copd pv dm Kimi Weiss Work Phone: IN-Wyptvud-Ziaiz [facility] Work Phone: Start: 04-02-2021 End: 04-02-2021 ambulatory Charles Claros Other [employer] Other Start: 04-02-2021 Office outpatient vi sit 25 minutes Charles Claros [facility] [place] Start: 03-10-2021 Office outpatient vi sit 15 minutes Kimi Weiss Work Phone: XW-Qywvhrxrwfch-Ofrdvb ke Work Phone: Start: 02-05-2021 Office outpatient vi sit 25 minutes Charles Claros [facility] [place] Start: 12-09-2020 Postop follow up vis it related to original px Kimi Weiss Work Phone: TZ-Gxvyggnonjdt-Cyknyx ke Work Phone: Start: 11-26-2020 End: 11-27-2020 Evaluation and management of inpatient Bee Neymar Felicianoer OR 33 Start: 10-31-2020 Phys/qhp telephone evaluation 21-30 min Referring Provider Unknown RX-Xdjitmteozcq-Crwznk Work Phone: Procedures Date Procedure Procedure Detail [...] Activity Detail Author Start: 12-29-2027 Screening for malignant neoplasm of colon [facility] Start: 07-11-2024 End: 07-11-2024 Patient encounter procedure 07/11/2024 9:40 AM EDT Office Visit [facility] [address] [place] [phone] Karon Rodriguez, SABRINA [address] [place], [place] [id number] [facility] [address] Start: 06-22-2024 End: 06-22-2025 Creatinine [Mass/volume] in Serum or Plasma Creatinine, Serum Lab Routine Postlaminectomy syndrome, lumbar region Expected: 06/22/2024 (Approximate), Expires: 06/22/2025 [facility] Service Area Work Phone: Comment on above: Expected: 06/22/2024 (Approximate), Expires: 06/22/2025 Start: 06-22-2024 End: 06-22-2025 CT Lumbar spine W contrast IV CT lumbar spine w IV contrast Imaging Routine Postlaminectomy syndrome, lumbar region Expected: 06/22/2024, Expires: 06/22/2025 [facility] Work Phone: Comment on above: Expected: 06/22/2024 , Expires: 06/22/2025 Start: 04-13-2024 [facility] Start: 04-10-2024 Sleep disorder assessment [facility] Start: 04-10-2024 Referral to branch director [facility] Start: 04-10-2024 Hospital admission [facility] Start: 03-30-2024 End: 03-30-2024 Patient encounter procedure 03/30/2024 9:30 AM EST Office Visit [address] [phone] [place] [address] [facility] Department [facility]opedics [place], [place] [id number] [facility] Start: 03-27-2024 End: 03-27-2024 Patient encounter procedure 03/27/2024 9:40 AM EST [facility] [address] [place] [phone] Karon Rodriguez, SABRINA [address] [place] [address] Ar[address] [facility] [address] Comment on above: Arrived Start: 12-19-2023 COVID-19 Vaccine ( season) COVID-19 Vaccine ( season) [facility] Start: 12-19-2023 COVID-19 Vaccine ( season) COVID-19 Vaccine ( season) [facility] Start: 12-19-2023 Influenza vaccination Influenza Vacc ine (#1) [facility] Start: 09-15-2023 X-ray of lumbar spin e, four views XR lumbar spine AP/LAT/FLX/EXT [facility] Start: 09-15-2023 XR Lumbar spine 4 Views [facility] Start: 09-15-2023 Plain X-ray of right hip XR hip RT min 2V(w/wo pelvis)* [facility] Start: 09-15-2023 XR Hip - right 2 Views [facility] Start: 09-07-2023 [facility] Start: 06-11-2022 EMG, Provider: NEURODIAG [id number] EMG ARAIZA,[id number], Status: Pen, Time: 10:30 AM EMG, Provider: NEURODIAG EMC01 EMG ARAIZA,[id number], Status: Pen, Time: 10:30 AM QJ-Jblqbsgqydcy-Jcamh nithya Work Phone: Start: 05-04-2022 VIRFUVHOME, Provider : Marisol Husain, Status: Pen, Time: 8:45 AM VIRFUVHOME, Provider: Marisol Husain, Status: Pen, Time: 8:45 AM RA-Itwxrgqejdzx-Fcxlk nithya Work Phone: Start: 01-13-2022 VIRFUVHOME, Provider : Marisol Husain, Status: Pen, Time: 2:15 PM VIRFUVHOME, Provider: Marisol Husain, Status: Pen, Time: 2:15 PM PI-Cqglgzaalyvc-Vouys nithya Work Phone: Start: 11-26-2021 Diabetes mellitus screening Diabetes Screening [facility] Start: 09-29-2021 FUV, Provider: Bee Blackmon, Status: Pen, Time: 11:30 AM FUV, Provider: Bee Blackmon, Status: Pen, Time: 11:30 AM OZ-Hjznwyw-Llvox [address] Work Phone: Start: 09-16-2021 VIRFUVHOME, Provider : Marisol Husain, Status: Pen, Time: 2:15 PM VIRFUVHOME, Provider: Marisol Husain, Status: Pen, Time: 2:15 PM QM-Jyfcsdibepom-Cymfu nithya Work Phone: Start: 06-18-2021 VIRFUVNYDIA, Provider : Marisol Husain, Status: Pen, Time: 2:15 PM VIRFUVHOME, Provider: Marisol Husain, Status: Pen, Time: 2:15 PM XQ-Jdznzav-Wohfr [address] Work Phone: Start: 04-23-2021 NPV, Provider: Marisol Husain, Status: Pen, Time: 10:00 AM NPV, Provider: Marisol Husain, Status: Pen, Time: 10:00 AM [facility] Work Phone: Start: 03-10-2021 FUV, Provider: Bee Blackmon, Status: Pen, Time: 11:15 AM FUV, Provider: Bee Blackmon, Status: Pen, Time: 11:15 AM GK-Wnmfjdzwapif-Vwbct nithya Work Phone: Start: 03-10-2021 Patient encounter procedure [facility] [place] Start: 12-16-2020 POV, Provider: Bee Blackmon, Status: Pen, Time: 11:15 AM POV, Provider: Bee Blackmon, Status: Pen, Time: 11:15 AM TJ-Yixkkhjeicda-Unzlt a Work Phone: Start: 11-26-2020 SURGCMC, Provider: Bee Blackmon, Status: Pen, Time: 8:30 AM SURGCMC, Provider: Bee Blackmon, Status: Pen, Time: 8:30 AM IN-Ljjzyokmfmyx-Lqsqu a Work Phone: Start: 2016 Pneumococcal vaccination Pneumococcal Vaccine (1 of 1 - PCV) [facility] Start: 2016 Zoster Vaccines (1 o f 2) Zoster Vaccines (1 of 2) [facility] Start: 1988 DTaP/Tdap/Td Vaccine s (1 - Tdap) DTaP/Tdap/Td Vaccines (1 - Tdap) [facility] Start: 1985 Hepatitis B Vaccines (1 of 3 - 19+ 3-dose series) Hepatitis B Vaccines (1 of 3 - 19+ 3-dose series) [facility] Start: 1984 Hepatitis C screening Hepatitis C [facility] Start: 1967 MMR Vaccines (1 of 1 - Standard series) MMR Vaccines (1 of 1 - Standard series) [facility] Start: 1966 HIV screening HIV Screening [facility] Start: 1966 Lipid panel Lipid Panel [facility] Start: 1966 Screening for malignant neoplasm of colon [facility] Start: 1966 Yearly Adult Physical Yearly Adult P hysical [facility] Patient Education [facility] Work Phone: Patient referral [facility] Work Phone: Immunizations Immunization Date Immunization Notes Care Provider Fa cility 07-22-2020 Pfizer-BioNTech COVID-19 Vacc 30 MCG/0.3ML Intramuscular Suspension Referring Provider Unknown XJ-Gimcdoyxdizv-Dypiy a Work Phone: 07-01-2020 Pfizer-BioNTech COVID-19 Vacc 30 MCG/0.3ML Intramuscular Suspension Referring Provider Unknown KU-Idfhunaodqra-Ullzi a Work Phone: 01-27-2020 influenza, injectabl e, quadrivalent, preservative free Referring Provider Unknown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 for atelehealth visit. UA-Voxmblj-Rpich MAC2 303 Work Phone: 1(690) 820-206801-05-2022 Chief complaint Narrative - Reported* An interactive audio and video telecommunication system which permits real time communications between the patient (at the originating site) and provider (at the distant site) was utilized to providethis telehealth service. * Verbal consent was requested and obtained from LYLY QUINN on this date, 04/23/2021 10:00 AM , for atelehealth visit. FV-Wfkmqracbaisjuny-Hpnfe Shefalikait GONZALEZ Work Phone: [phone] 489-993012-15-2021 Evaluation note* Encounter Date Diagnosis Assessment Notes [...] note writ ten by Lawanda Yuen CMA, [employer]. Edited and approved by Dr. Charles Claros MD. [employer] Other 10-20-2021 Evaluation note* Encounter Date Diagnosis [...] note writ ten by Dutch Taylor MA, [employer] Operator [employer]. Edited and approved by Dr. Charles Claros MD. [employer] Other 08-10-2021 NoteSend Summary: Discharge Summary Providers: Provider RoleProvider Name PrimaryAbhishekKimi Zachary Note Recipients: Bee Blackmon MD Jackson Kimi Santos, DO - [phone] [] Discharge: Summary: Admission Date: .26-Nov-2020 10:44:00 [...] visit. Immunizations: Immunizations: 19-Nov-2020 SARS-CoV-2 (COVID-19): Immunizations, [employer] COVID-19 Vacc 30 mcg/0.3ml IM suspension, 01-Jul-2020 [...] Follow-Up Appointment Scheduled Date/Time: 09-Dec-2020 11:15 Location: [address] [place] [address] OFFICE [address], Phone Number: Office: Sec. [place]) - [phone] Discharge Medications: Home Medication lisinopril 20 mg [...] Dx: acute post-operative pain (more content not included)...[facility]08-10-2021 NotePost Operative Note: PreOp Diagnosis: lumbar stenosis with radiculopathy Post-Procedure Diagnosis: same as preop Procedure: 1. L3-4 XLIF 2. 3. 4. 5. Surgeon: Neymar Resident/Fellow/Other Speech Therapy Teacher: Daniela Anesthesia: GETA Estimated Blood Loss [...] Completion Last Updated: 10-Dec-2020 17:38 by Bee Blackmon)[facility]08-10-2021 NotePreop Checklist: Preop Checklist: Procedure TypeL3-4 lateral lumbar fusion with instrumentation Temperature C36.4 degrees C Temperature F97.5 degrees F Heart Rate92 beats per minute Respiratory Rate16 breath per minute Blood Pressure Mktjjltx157 mm/Hg Blood Pressure Nncncnveb91 mm/Hg NPO [id number] 22:00 ID Band Onyes Allergy Bandno known [...] Communication: Language / CommunicationEnglish Electronic Signatures: Pat Padilla) (Signed 26-Nov-2020 12:09) Authored: Preop Checklist Last Updated: 26-Nov-2020 12:09 by Pat Padilla (BENI)[facility]08-10-2021 NoteHistory & Physical Reviewed: I have reviewed [...] the note. I personally evaluated the patient [id number] Electronic Signatures: Bee Blackmon) (Signed 09-Dec-2020 19:41) Authored: Note Completion Co-Signer: History & Physical Reviewed, ERAS, Consent, Note Completion Kevin Marshall (Resident)) (Signed 26-Nov-2020 05:52) Authored: History & Physical Reviewed, ERAS, Consent, Note Completion Last Updated: 09-Dec-2020 19:41 by Bee Blackmon)[facility]05-05-2021 Evaluation note* Lymphatic: No significant lymphadenopathyNeurological: A&Eu0Hqxdkuxotqgqihoh: Soft, ntndCardiovascular: RRR by peripheral pulsesPsychological: Appropriate mood and behaviorRespiratory/Thorax: Breathing normally on RAHead/Neck: Neck supple, trachea midlineEyes: EOMI, clear scleraSkin: Warm and dry, no rashesMusculoskeletal: L1: SILTL2: SILT Hip flexors 5/5 Right; 5/5 LeftL3: SILT Knee extension 5/5 Right; 5/5 LeftL4: SILT Tib Ant. (Dorsiflexion) 5/5 Right; 5/5 LeftL5: SILT EHL 5/5 Right; 5/4LbxdK4: SILT Planter flexion 5/5 Right; 5/5 LeftConstitutional: Awake/alert/oriented x3, no distress, alert and cooperative [facility]02-01-2020 History of Present illness Narrative* 55-year-old male [...] He was evaluated by another surgeon in [facility], they did recommend surgery however he has a history involving multiple DVTs and pulmonary embolism. After his last operation he was not bridged preoperatively on Lovenox, and he did not receive any anticoagulation until 2 weeks after surgery. Despite having an IVC filter in place he through another pulmonary embolism. He follows up with a lead quality technician in [place]. * He is otherwise in good health. [...] 26. I have reached out to his lead quality technician to confirm plans for perioperative anticoagulation. He is fully vaccinated for COVID-19. * This note was dictated using speech recognition software and was not corrected for spelling or grammatical errors. VX-Ylxnrdedkmee-Fmspkt Work Phone: [phone] History of Present illness Narrative* 55-year-old male [...] He was evaluated by another surgeon in [facility], they did recommend surgery however he has a history involving multiple DVTs and pulmonary embolism. After his last operation he was not bridged preoperatively on Lovenox, and he did not receive any anticoagulation until 2 weeks after surgery. Despite having an IVC filter in place he through another pulmonary embolism. He follows up with a lead quality technician in [place]. * He is otherwise in good health. [...] 26. I have reached out to his lead quality technician to confirm plans for perioperative anticoagulation. He is fully vaccinated for COVID-19. * This note was dictated using speech recognition software and was not corrected for spelling or grammatical errors. [facility] Work Phone: [phone] History of Present illness Narrative* Patient is [...] not corrected for spelling or grammatical errors. [facility] Work Phone: 1(889) 118-700212-18-2018 History of Present illness Narrative* Patient is [...] not corrected for spelling or grammatical errors. [facility] Work Phone: [phone] 397-247711-22-2018 History of Present illness Narrative* Patient is [...] not corrected for spelling or grammatical errors. QS-Lhuedpidcdwk-Pqaxsnhi Work Phone: Evaluation note* Diagnosis Onset Date Resolution Status Chronic pain acute Chronic, continuous use of opioids acute Other spondylosis with radiculopathy, lumbar region [facility] Work Phone: Evaluation note* Diagnosis Onset Date Resolution Status Chronic pain acute Chronic, continuous use of opioids acute Other spondylosis with radiculopathy, lumbar region acute Chronic pain acute Chronic, continuous use of opioids acute Other spondylosis with radiculopathy, lumbar region [facility] Work Phone: Evaluation note* Diagnosis Chronic cluster headache, not intractable- Primary Essential hypertension (CMS/HCC) Unspecified essential hypertension History of blood clots [facility] Diagnosis Postlaminectomy syndrome, lumbar region- Primary documented in this encounter [facility] Work Phone: Evaluation note* Diagnosis Postlaminectomy syndrome, lumbar region- Primary Lumbar radiculopathy, chronic documented in this encounter [facility] Work Phone: History general Narrative - Reported* [...] dr) Hospitalization History pulmonary embolism 2 alfa [employer] Other History of Present illness Narrative* Patient [...] not corrected for spelling or grammatical errors WY-Sprgbaptfvyf-Kzoqahta Work Phone: History of Present illness Narrative* [...] * Lives with: Spouse * 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[employer] * Sleep patterns: 8hrs YANNI on CPAP * Alcohol: 1-2 on the weekends * Tobacco: None * Recreational Drugs: None * Exercise: Therapy for back 2 x weekly WD-Bdajnaf-Fflab MAC2 [address] Work Phone: History of Present [...] and V8 * L - yogurt, granola (indonesian yogurt, 1/4 cup granola), cream of corn 1 cup * Snack - pop corner 100 calorie bag * D - veggie burger with greenlandic cheese & onion (2 burgers) low calorie [...] * Lives with: Spouse * 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 * Continued topiramate as adjunct to diet/exercise last visit. 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 PQ-Iuryvlqpfyiw-Kluyzdgo Work Phone: History of Present illness Narrative* [...] is going to do [facility], we will have them push the results to PACS. He shouldcall the office for the results of the MRI. * In the meantime I am going to put him on some prednisone. * I will speak with him after the MRI is complete. * This note was dictated using speech recognition software and was not corrected for spelling or grammatical errors. VS-Hykqynioefaf-Rgkxghfy Work Phone: Hospital Discharge instructions* Activity:activity with [...] Follow-Up AppointmentScheduled Date/Time: 09-Dec-2020 11:15Location: [address], Phone Number: Office: ([place], Sec.) - [phone]: Please Call Tara Gonzalez RN at [phone] For Any Post-Op Questions [facility]Hospital Discharge instructions Additional Instructions If your symptoms return/worsen or you develop any further concerns or symptoms please see your doctor or return to the emergency department immediately.[facility] Work Phone: Reason for referral (narrative)* Reason for Referral: L3-4 fusion [facility] Chief Complaint * A telephone visit (audio [...] section and content) DATE CREATED AUTHOR 09/29/2021 [facility] DATE CREATED AUTHOR AUTHOR'S ORGANIZ ATION 05/01/2022 [facility] Special[facility] DATE CREATED AUTHOR AUTHOR'S ORGANIZ ATION 05/05/2022 [facility] DATE CREATED AUTHOR AUTHOR'S ORGANIZ ATION 05/16/2022 [facility] DATE CREATED AUTHOR AUTHOR'S ORGANIZ ATION 06/24/2022 [facility] DATE CREATED AUTHOR AUTHOR'S ORGANIZ ATION 07/28/2022 [facility] DATE CREATED AUTHOR AUTHOR'S ORGANIZ ATION 01/17/2024 [facility] DATE CREATED AUTHOR AUTHOR'S ORGANIZ ATION 03/30/2024 [facility] Specialists EPIC DATE CREATED AUTHOR AUTHOR'S ORGANIZ ATION 05/26/2024 [facility] DATE CREATED AUTHOR AUTHOR'S ORGANIZ ATION 06/26/[address] [place] [address] Ambulatory DATE CREATED AUTHOR AUTHOR'S ORGANIZ ATION 06/30/2024 [facility] REASON FOR VISIT (unrecogniz ed section and content) Reason Comments Migraine Headache Cluster Back Pain Reason Comments Follow-up Referral from Dr. Deangelo bennett-Right side low back pain with radiation to right buttock and down right posterior leg. 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 Start Date End Date Kimi Weiss MD [address] [place] [id number] PCP - General Family Medicine 08/09/23 Health And Fitness Professor Relationship Specialty Start Date End Date Kimi Weiss MD [address] [place] [id number] PCP - General Family Medicine 08/09/23 Health And Fitness Professor Relationship Specialty Start Date End Date Kimi Weiss DO [address] [place] [address] PCP - General 11/04/20 Team Status: Inactive [...] 2024 Team Status: Active Member Role Status Meena [...] Jacinto Livingston MD Other Provider Active Start: D [email or web address] End: April 13, 2024 Des Musa MD [...] May 15, 2024 End: May 15, 2024 Health And Fitness Professor Relationship Specialty Start Date End Date Kimi Weiss DO [address] [place] [address] PCP - General 11/04/20 Goals (unrecognized section and content) Goals may [...] BE BASED ON THE PRIMARY CLINICAL RECORDS. Education Everytime [facility]. provides no warranty or guarantee of the accuracy or completeness of information in this document.
[2024-07-07 07:22] LABS: Estimated GFR (African America >60 (>=60 mL/min/1.73m^2); Estimated GFR (Non-African Ame >60 (>=60 mL/min/1.73m^2)
== END 2024-07-07 06:31 | disposition home or self-care (01) ==
LOC: LAB 06:31
PROVIDERS: PCP Family Medicine
DX: M96.1 Postlaminectomy syndrome, not elsewhere classified (principal)
CPT/HCPCS: 36415; 82565

== ENCOUNTER 2024-08-20 10:56 | Emergency (ER) | payer OTHER, SELFPAY ==
[2024-08-20] VITALS (9 sets, daily range): BP systolic 106–163; BP diastolic 70–124; PULSE 83–98; TEMP 36.5; O2SAT 94–100; BMI 36.6
--- NOTE | 2024-08-20 11:06 | ECG_ITS ---
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 Measurements Intervals [place] Rate: 80 P: 19 FL: 152 QRS: 63 QRSD: 104 T: 54 QT: 394 QTc: 431 Interpretive Statements 1100 Sinus rhythm 9110 normal ECG Compared to ECG 04/07/2024 23:34:56 Incomplete right bundle-branch block no longer present Electronically Signed On 08-21-2024 7:43:47 EDT by TASH STAPLES M.D.
[2024-08-20] MEDS: ONDANSETRON PF 4 MG/2 ML VIAL IV (11:28)
[2024-08-20] MEDS: FAMOTIDINE/PF 20 MG/2 ML VIAL IV (11:28)
[2024-08-20] MEDS: NITROGLYCERIN 0.4 MG BOTTLE SL (11:29)
[2024-08-20 11:30] LABS: Basophils Percent Auto 0.6 % (0.2-2.0); Eosinophils Absolute Auto 0.1 10^3/uL (0.0-0.7); Eosinophils Percent Auto 1.3 % (0.9-7.0); Hematocrit 44.1 % (42.0-54.0); Hemoglobin 14.8 g/dL (14.0-18.0); Immature Granulocytes Abs Auto 0.03 10^3/uL (0.00-0.03); Immature Granulocytes Pct Auto 0.4 % (0.0-0.5); Lymphocytes Absolute Auto 3.2 10^3/uL (1.2-3.8); Lymphocytes Percent Auto 46.3 % (20.5-60.0); Mean Corpuscular HGB Conc 33.6 g/dL (29.9-35.2); Mean Corpuscular Hemoglobin 30.8 pg (25.9-34.0); Mean Corpuscular Volume 91.9 fL (80.0-94.0); Mean Platelet Volume 9.6 fL (9.5-13.5); Monocytes Absolute Auto 0.6 10^3/uL (0.3-0.8); Monocytes Percent Auto 9.3 % (1.7-12.0); Neutrophils Absolute Auto 2.9 10^3/uL (1.4-6.5); Neutrophils Percent Auto 42.1 % (43.0-75.0); Platelet Count 221 10^3/uL (150-450); Red Cell Distribution Width 12.6 % (11.0-15.0); White Blood Count 6.9 10^3/uL (4.0-11.0)
[2024-08-20 11:45] LABS: Alanine Aminotransferase 50 U/L (16-63); Albumin Globulin Ratio 1.1; Albumin Level 3.9 g/dL (3.4-5.0); Alkaline Phosphatase 75 U/L (46-116); Anion Gap 13.6; Aspartate Amino Transferase 26 U/L (15-37); BUN Creatinine Ratio 13.8; Bilirubin Total 0.5 mg/dL (0.2-1.0); Calcium 9.4 mg/dL (8.5-10.1); Carbon Dioxide 30.4 mmol/L (21.0-32.0); Chloride 102 mmol/L (98-107); Estimated GFR (African America >60 (>=60 mL/min/1.73m^2); Estimated GFR (Non-African Ame >60 (>=60 mL/min/1.73m^2); Globulin 3.6 g/dL; Glucose 99 mg/dL (74-106); Sodium 142 mmol/L (136-145); Total Protein 7.5 g/dL (6.4-8.2); Troponin I High Sensitivity <4.0 pg/mL (4.0-76.1)
--- NOTE | 2024-08-20 11:45 | PC.NURSE ---
Second Nitro dose given.
[2024-08-20 12:03] LABS: D Dimer 0.24 mg/L FEU (<=0.59)
[2024-08-20] MEDS: MORPHINE SULFATE 4 MG/ML VIAL IV (12:12)
--- NOTE | 2024-08-20 13:20 | ED.SOB1 ---
HPI - SOB/Dyspnea General Chief Complaint: Shortness of Breath/Dyspnea Stated Complaint: SHORT OF BREATH , PAIN, POSSIBLE POST OP COMPLICA Time Seen by Provider: 08/20/24 11:05 Source: patient Mode of arrival: walk-in History of Present Illness HPI Narrative: The patient is a 59-year-old male who recently had a lower back injection for his back pain is coming to the ER with a chest pain, he mentioned initially that the pain was retrosternal although he mentioned it radiating to the right upper quadrant, the patient had stopped his Xarelto almost for 2 days for the injection he resumed it yesterday, here patient woke up this morning with shortness of breath and chest pain and he was worried about PE The patient denies any nausea vomiting, he mentioned that this pain started while he was at home with no exertion reported He also mentioned that the right upper quadrant pain is not acute Related Data Home Medications ?Medication ?Instructions ?Recorded ?Confirmed duloxetine 60 mg capsule,delayed 60 mg PO DAILY 04/02/24 08/20/24 release fenofibrate nanocrystallized 48 mg 48 mg PO DAILY 04/02/24 08/20/24 tablet galcanezumab-gnlm 120 mg/mL 120 mg subcut .monthly 04/02/24 08/20/24 subcutaneous pen injector (Emgality Pen) lisinopril 20 mg tablet 20 mg PO DAILY 04/02/24 08/20/24 metformin 500 mg tablet 1,000 mg PO BID 04/02/24 08/20/24 rivaroxaban 20 mg tablet (Xarelto) 20 mg PO Q24H 04/02/24 08/20/24 Previous Rx's ?Medication ?Instructions ?Recorded atorvastatin 20 mg tablet (Lipitor) 20 mg PO DAILY #30 tabs 04/08/24 Allergies Allergy/AdvReac Type Severity Reaction Status Date / Time No Known Drug Allergies Allergy Verified 08/20/24 11:02 Review of Systems ROS Status of ROS 10 or more systems reviewed and unremarkable except as noted in history and below [facility] Medical History (Updated 08/20/24 @ 14:05 by Pamella Sams MD) Breath shortness ?R06.02 - Shortness of breath (ICD-10) Community acquired pneumonia ?J18.9 - Pneumonia, unspecified organism (ICD-10) Chest pain ?R07.9 - Chest pain, unspecified (ICD-10) Depression ?F32.A - Depression, unspecified (ICD-10) Migraine headache ?G43.909 - Migraine, unspecified, not intractable, without status migrainosus (ICD-10) Non-insulin dependent type 2 diabetes mellitus ?E11.9 - Type 2 diabetes mellitus without complications (ICD-10) Hyperlipidemia associated with type 2 diabetes mellitus ?E11.69 - Type 2 diabetes mellitus with other specified complication (ICD-10) ?E78.5 - Hyperlipidemia, unspecified (ICD-10) Primary hypertension ?I10 - Essential (primary) hypertension (ICD-10) History of pulmonary embolism ?Z86.711 - Personal history of pulmonary embolism (ICD-10) Social History Little interest or pleasure in doing things: not at all Feeling down, depressed, or hopeless: not at all Exam Narrative Exam Narrative: Nurses notes and vital signs reviewed and patient is not hypoxic. General: Well-appearing and in no apparent distress. Skin: Warm, dry, no pallor noted. No rash. Head: Normocephalic, atraumatic. Neck: Supple, non-tender. Eye: Pupils are equal, round and EOMI. No scleral icterus. Cardiovascular: Regular Rate and Rhythm without murmur, gallop or rub. Respiratory: No accessory muscle use or respiratory distress. Lungs are clear to auscultation, no wheezing, rales or rhonchi Chest Wall: no tenderness Back: No midline thoracic or lumbar vertebral tenderness. No CVA tenderness Musculoskeletal: normal ROM, no calf or popliteal tenderness, no lower extremity edema/swelling GI: Abdomen is soft, obese abdomen with a right upper quadrant tenderness on superficial palpation Neurological: A&O x4. No cranial nerve dysfunction observed. No truncal ataxia. Moves all extremities. Sensation intact. Psychiatric: Cooperative and interactive. Normal mood and affect. Constitutional Vital Signs, click to edit/add: Last Vital Signs Temp 97.7 F 08/20/24 11:02 Pulse 87 08/20/24 13:00 Resp 30 H 08/20/24 13:00 BP 106/70 08/20/24 13:00 Pulse Ox 97 08/20/24 13:00 O2 Del Method Room Air 08/20/24 11:02 Course Vital Signs Vital signs: Vital Signs Temperature 97.7 F 08/20/24 11:02 Pulse Rate 83 08/20/24 11:02 Respiratory Rate 24 H 08/20/24 11:02 Blood Pressure 163/99 H 08/20/24 11:02 Pulse Oximetry 100 08/20/24 11:02 Oxygen Delivery Method Room Air 08/20/24 11:02 Temperature 97.7 F 08/20/24 11:02 Pulse Rate 87 08/20/24 13:00 Respiratory Rate 30 H 08/20/24 13:00 Blood Pressure 106/70 08/20/24 13:00 Pulse Oximetry 97 08/20/24 13:00 Oxygen Delivery Method Room Air 08/20/24 11:02 MDM - SOB/Dyspnea MDM Narrative Medical decision making narrative: The patient EKG showing sinus rhythm with a heart rate of [address] elevation or depression Chest x-ray showed no acute pathology CBC showed no acute pathology as well as a troponin repeated twice The chemistry was within normal and I was planning to get a CAT scan of the abdomen to rule out any acute right upper quadrant pathology because of the patient's IV pain that he described area but he apparently refused to have the CAT scan because he was just worried about the PE The patient dimer is not elevated The patient right now could be secondary to muscular pain or pleuritic pain The patient understand that he did not get the CAT scan so he did not get the full workup and he just wants to leave because he is feeling better The patient is to follow up with primary care physician in next 2-3 days or to return to the emergency department should any of the signs or symptoms worsen or new symptoms develop. The patient agrees with the following Diagnosis and Treatment plan and the patient will be discharged home. Lab Data Labs: Lab Results 08/20/24 08/20/24 Range/Units 11:15 13:30 WBC 6.9 (4.0-11.0) 10^3/uL RBC 4.80 (4.70-6.10) 10^6/uL Hgb 14.8 (14.0-18.0) g/dL Hct 44.1 (42.0-54.0) % MCV 91.9 (80.0-94.0) fL MCH 30.8 (25.9-34.0) pg MCHC 33.6 (29.9-35.2) g/dL RDW 12.6 (11.0-15.0) % Plt Count 221 (150-450) 10^3/uL MPV 9.6 (9.5-13.5) fL Neut % (Auto) 42.1 L (43.0-75.0) % Lymph % (Auto) 46.3 (20.5-60.0) % [place] % (Auto) 9.3 (1.7-12.0) % Eos % (Auto) 1.3 (0.9-7.0) % Baso % (Auto) 0.6 (0.2-2.0) % Neut # (Auto) 2.9 (1.4-6.5) 10^3/uL Lymph # (Auto) 3.2 (1.2-3.8) 10^3/uL [place] # (Auto) 0.6 (0.3-0.8) 10^3/uL Eos # (Auto) 0.1 (0.0-0.7) 10^3/uL Baso # (Auto) 0.0 (0.0-0.1) 10^3/uL Abs Immat Gran (auto) 0.03 (0.00-0.03) 10^3/uL Imm/Tot Granulo (auto) 0.4 (0.0-0.5) % D-Dimer 0.24 (<=0.59) mg/L FEU Sodium 142 (136-145) mmol/L Potassium 4.0 (3.5-5.1) mmol/L Chloride 102 (98-107) mmol/L Carbon Dioxide 30.4 (21.0-32.0) mmol/L Anion Gap 13.6 BUN 13.0 (7.0-18.0) mg/dL Creatinine 0.94 (0.70-1.30) mg/dL Est GFR ( Amer) >60 (>=60 mL/min/1.73m^2) Est GFR (Non-Af Amer) >60 (>=60 mL/min/1.73m^2) BUN/Creatinine Ratio 13.8 Glucose 99 (74-106) mg/dL Calcium 9.4 (8.5-10.1) mg/dL Total Bilirubin 0.5 (0.2-1.0) mg/dL AST 26 (15-37) U/L ALT 50 (16-63) U/L Alkaline Phosphatase 75 (46-116) U/L Troponin I High Sens <4.0 L <4.0 L (4.0-76.1) pg/mL Total Protein 7.5 (6.4-8.2) g/dL Albumin 3.9 (3.4-5.0) g/dL Globulin 3.6 g/dL Albumin/Globulin Ratio 1.1 Discharge Plan Discharge Chief Complaint: Shortness of Breath/Dyspnea Clinical Impression: Atypical chest pain Patient Disposition: Home, Self-Care Time of Disposition Decision: 14:05 Condition: Good Prescriptions / Home Meds: No Action atorvastatin [Lipitor] 20 mg tablet 20 mg PO DAILY Qty: 30 0RF metformin 500 mg tablet 1,000 mg PO BID lisinopril 20 mg tablet 20 mg PO DAILY duloxetine 60 mg capsule,delayed release(DR/EC) 60 mg PO DAILY fenofibrate nanocrystallized 48 mg tablet 48 mg PO DAILY Xarelto 20 mg tablet 20 mg PO Q24H Emgality Pen 120 mg/mL pen injector 120 mg SUBCUT .monthly Print Language: Portuguese Instructions: Chest Pain (ED), Chest Wall Pain (ED) Referrals: KIMI JACINTO [Primary Care Provider, Family Practice] - 1 week Discharge Date/Time: 08/20/24 14:18
--- NOTE | 2024-08-20 13:21 | PC.NURSE ---
Patient refuses CT abdomen, states I'm ready to go . Dr. Sams notified.
[2024-08-20 13:52] LABS: Troponin I High Sensitivity <4.0 pg/mL (4.0-76.1)
== END 2024-08-20 14:18 | disposition home or self-care (01) ==
PROVIDERS: Emergency Provider Emergency Medicine; PCP Family Medicine
DX: R07.89 Other chest pain (principal); R06.02 Shortness of breath; Z79.01 Long term (current) use of anticoagulants; Z98.890 Other specified postprocedural states
CPT/HCPCS: 36415; 71045; 80053; 84484; 85025; 85378; 93005; 96374; 96375; 99285; J2270; J2405; J3490

== ENCOUNTER 2024-10-04 14:37 | Inpatient (IN) | payer OTHER, SELFPAY ==
[2024-10-04] VITALS (35 sets, daily range): BP systolic 130–173; BP diastolic 79–97; PULSE 97–132; TEMP 36.7–37.2; O2SAT 95–100; BMI 35.9; BMI 37.5
--- NOTE | 2024-10-04 14:50 | XR_ITS ---
The [address] [address] Patient Name: LYLY KIDD MRN: [id number] date: 1965 Sex: M Assigned Patient Location: ED.MAIN Current Patient Location: ED.MAIN Accession/Order Number: [id number] Exam Date: 10/04/2024 15:40 Report Date: 10/04/2024 15:41 At the request of: AJ DE LA ROSA MD Procedure: XR chest 1V Single view chest: CLINICAL HISTORY: shortness of breath COMPARISON: Chest 08/20/2024 FINDINGS: The heart is normal in size. The lungs are clear. The pulmonary vasculature is normal. Mediastinum and hilar regions are unremarkable. No pleural effusions are seen. Visualized bones are intact. XR/XR chest 1V IMPRESSION: NEGATIVE CHEST. Impression dictated by: Elvin Dong Jr., D.O. 10/04/2024 3:41 PM Dictation Location: [place] [address] Electronically authenticated by: [id number] Y Date: 10/04/2024 15:41
[2024-10-04] MEDS: ALBUTEROL SULFATE 2.5 MG/3 ML VIAL NEB IH ×2 (15:06→19:11)
[2024-10-04 15:29] LABS: Glucometer 141 mg/dL (74-106)
--- NOTE | 2024-10-04 15:29 | ECG_ITS ---
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 Measurements Intervals [place] Rate: 112 P: 35 AR: 138 QRS: 76 QRSD: 100 T: 47 QT: 344 QTc: 410 Interpretive Statements 1120 Sinus tachycardia 9140 abnormal rhythm ECG Compared to ECG 08/20/2024 11:06:26 Heart rate has increased Electronically Signed On 10-04-2024 21:06:16 EDT by TASH STAPLES M.D.
--- NOTE | 2024-10-04 15:32 | ED.GENADUL1 ---
HPI HPI - General Adult General Chief complaint: Shortness of Breath/Dyspnea Stated complaint: SOB CHEST PAINS Time Seen by Provider: 10/04/24 15:28 Source: patient Mode of arrival: Wheelchair Limitations: no limitations History of Present Illness HPI narrative: Patient is a 59-year-old male who is presenting to the ER today with chief complaint of shortness of breath, difficulty breathing. Patient states he has had flulike symptoms since this past or Wednesday, patient has been having forceful coughing for the past 2 or 3 days. Patient went to an urgent care yesterday, patient was clinically diagnosed with pneumonia and placed on Augmentin, Tessalon Perles, and albuterol inhaler. Patient is coming in today because his symptoms are worsening. Patient is having chest tightness and chest wall pain. Patient is having pain with deep inspiration, twisting and turning. Patient is on Xarelto secondary to history of blood clots. Patient has no history of emphysema or COPD. Patient has never been a smoker. Patient's had no recent inhalation or chemical exposure. Patient is on disability. Patient brother is at bedside. Patient lives at home with his . Pt wears no oxygen during the day or at nighttime. Patient says his shortness of breath is worsening today. No abdominal pain, nausea or vomiting. No cardiac history. Patient is diabetic, patient takes medication for diabetes, cholesterol. All systems are negative except as noted/marked. All systems reviewed and otherwise negative. Nurses note and vital signs reviewed and patient is not hypoxic. General: The patient appears well and in no apparent distress. Patient is resting comfortably on cart. Patient is not toxic, lethargic, or listless Skin: Warm, dry, no pallor noted. There is no rash noted. No petechiae, purpura. Head: Normocephalic, atraumatic Eye: Normal conjunctiva, no drainage, EOMI. PERRL Ears, Nose, Mouth, and Throat: oral mucosa is moist. Nares patent. Mouth without vesicles. Cardiovascular: Regular Rate and Rhythm, no murmur, gallop, rub. Patient has moderate reproducible tenderness to palpation to anterior chest wall, also to paraspinal costochondral area of his anterior chest. No crepitus. Respiratory: Patient is in mild respiratory distress with increased respiratory rate, decreased breath sounds bilateral but equal,, no accessory muscle use, lungs are bilateral wheezing, no rales or rhonchi's noted. Back: non-tender, no CVA tenderness bilaterally to percussion. No CT LS midline pain GI: Soft, obese, no tenderness to palpation, no masses appreciated. No rebound, guarding, or rigidity noted. No distention Musculoskeletal: Patient has full range of motion of all of the extremities, no motor, sensory, or focal neurological deficits Neurological: A&O x4, normal speech Psychiatric: Cooperative Related Data Home Medications ?Medication ?Instructions ?Recorded ?Confirmed duloxetine 60 mg capsule,delayed 60 mg PO DAILY 04/02/24 10/04/24 release fenofibrate nanocrystallized 48 mg 48 mg PO DAILY 04/02/24 10/04/24 tablet galcanezumab-gnlm 120 mg/mL 120 mg subcut .monthly 04/02/24 10/04/24 subcutaneous pen injector (Emgality Pen) lisinopril 20 mg tablet 20 mg PO DAILY 04/02/24 10/04/24 metformin 500 mg tablet 1,000 mg PO BID 04/02/24 10/04/24 rivaroxaban 20 mg tablet (Xarelto) 20 mg PO Q24H 04/02/24 10/04/24 albuterol sulfate 90 mcg/actuation 2 puff inhalation Q4H PRN 10/04/24 10/04/24 aerosol inhaler shortness of breath or wheezing amoxicillin 875 mg-potassium 1 tab PO BID 10/04/24 10/04/24 clavulanate 125 mg tablet benzonatate 100 mg capsule 100 mg PO TID PRN cough 10/04/24 10/04/24 glyburide micronized 3 mg tablet 3 mg PO DAILY 10/04/24 10/04/24 Allergies Allergy/AdvReac Type Severity Reaction Status Date / Time No Known Drug Allergies Allergy Verified 10/04/24 14:44 Opioid HPI Opioid Management Most Recent Opioid Data: Last Pain Scale 9 Today, 14:44 Last ORT Total Score 1 04/06/24, 17:15 Last ORT Risk Category Low Risk 04/06/24, 17:15 [facility] Medical History (Updated 10/04/24 @ 19:11 by Harsha Whatley MD) Breath shortness ?R06.02 - Shortness of breath (ICD-10) Community acquired pneumonia ?J18.9 - Pneumonia, unspecified organism (ICD-10) Chest pain ?R07.9 - Chest pain, unspecified (ICD-10) Depression ?F32.A - Depression, unspecified (ICD-10) Migraine headache ?G43.909 - Migraine, unspecified, not intractable, without status migrainosus (ICD-10) Non-insulin dependent type 2 diabetes mellitus ?E11.9 - Type 2 diabetes mellitus without complications (ICD-10) Hyperlipidemia associated with type 2 diabetes mellitus ?E11.69 - Type 2 diabetes mellitus with other specified complication (ICD-10) ?E78.5 - Hyperlipidemia, unspecified (ICD-10) Primary hypertension ?I10 - Essential (primary) hypertension (ICD-10) History of pulmonary embolism ?Z86.711 - Personal history of pulmonary embolism (ICD-10) Social History Little interest or pleasure in doing things: not at all Feeling down, depressed, or hopeless: not at all Exam Constitutional Vital Signs, click to edit/add: Last Vital Signs Temp 98.9 F 10/04/24 14:44 Pulse 97 H 10/04/24 19:11 Resp 28 H 10/04/24 19:11 BP 130/83 10/04/24 18:08 Pulse Ox 100 10/04/24 19:11 O2 Del Method Nasal Cannula 10/04/24 19:11 O2 Flow Rate 5 10/04/24 19:11 Course Vital Signs Vital signs: Vital Signs Temperature 98.9 F 10/04/24 14:44 Pulse Rate 114 H 10/04/24 14:44 Respiratory Rate 28 H 10/04/24 14:44 Blood Pressure 136/94 H 10/04/24 14:44 Pulse Oximetry 99 10/04/24 14:44 Oxygen Delivery Method Room Air 10/04/24 14:44 Temperature 98.9 F 10/04/24 14:44 Pulse Rate 97 H 10/04/24 19:11 Respiratory Rate 28 H 10/04/24 19:11 Blood Pressure 130/83 10/04/24 18:08 Pulse Oximetry 100 10/04/24 19:11 Oxygen Delivery Method Nasal Cannula 10/04/24 19:11 Oxygen Delivery Flow Rate 5 10/04/24 19:11 Medical Decision Making MDM Narrative Medical decision making narrative: Patient seen and examined: Patient was initially given albuterol nebulizer and chest x-ray. Secondary to patient's vital signs, patient will have septic workup initiated. Differential diagnosis includes but is not limited to: Bronchitis, pneumonia, pneumothorax, wheezing, reactive airway disease, LA, ACS, PE Diagnostics and management: Patient will have laboratory studies Relevant laboratory interpretation: No elevated white blood cell count, venous blood gas is 7.48, venous CO2 is 27, glucose 154, lactic 2.6. Magnesium 1.6.; Troponin negative, Radiological studies: Please see the formal radiological report. Chest x-ray was negative, no acute cardiopulmonary disease. Reevaluation: Patient had a short episode of respiratory distress. Patient had increased respiratory rate, tachycardia, short shallow breathing, increased wheezing, panic, anxiety, and more difficulty breathing. I was called to bedside with several nurses. We had called respiratory therapy, x-ray, and patient was reassessed. After approximately 5 minutes of me being at bedside, assessing his airway, listening to his lungs, patient respiratory rate and heart rate decreased. I was able to de-escalate the situation by talking to the patient and calming him down him somewhat. Patient's posterior pharynx was wide open, no angioedema, patient's posterior pharynx had no obstruction. Patient did have decreased breath sounds bilateral, lungs are very tight, bilateral wheezing, equal breath sounds bilateral still. Patient complaining of pain to anterior chest wall, stating with every deep breath he was having pain. No diaphoresis. No hypoxia, patient remained at 100% on 2 L. Not hypotensive. Patient had IV magnesium, Solu-Medrol, Valium, Toradol, and I will order a CTA of the chest secondary to this brief episode of respiratory distress that resolved with de-escalation to make sure he does not have a PE despite being on Xarelto. Shared decision making: I discussed with the patient the necessary laboratory findings and radiological findings. Social barriers to healthcare: There are no food insecurities, there is no issue with transportation, there are no insurance barriers. Disposition: I discussed with the patient results of initially of lab work and chest x-ray. Then patient had a brief episode of respiratory distress that was improved with reassessment and de-escalation by myself at bedside. Patient did have good pain relief with all the medications given and patient was breathing better. Patient may have had a mucous plug. Difficult to assess. CTA showed no acute findings, questionable bilateral lower lobe infiltrate versus inflammation. At approximately 1814, patient started having slightly more pain, difficulty breathing, and minimal respiratory distress concerns. Patient was reassessed again. Patient was nothing like he was in our approximately prior to this. Patient was again de-escalated. I described patient CTA of his chest results. Patient agrees to admission, patient was initially wanting to go home. Patient be given a dose of morphine and another albuterol inhaler. Patient will be admitted for further evaluation and treatment. 1829 patient is admitted to [facility] on behalf of the hospitalist. Several bedside visits have been made initially to do H&P and physical exam, during His respiratory distress episode, approximately total of 15 to 20 minutes with one-on-one care, then again reassessing patient when he started having difficult time breathing again, another 10 minutes spent at bedside with patient and brother Critical care time 31 minutes exclusive from separate billable procedures that were performed. The following was considered in the determination of critical care but not limited to the level of medical decision making, intensive cardiac and/or respiratory monitoring, frequent vital sign monitoring, evaluation of laboratory studies, evaluation of radiographic studies, oxygen monitoring, and constant monitoring and speaking to family at bedside Lab Data Lab results reviewed: Yes I reviewed the patient's lab results Labs: Lab Results 10/04/24 10/04/24 10/04/24 Range/Units 15:19 15:20 15:43 WBC 6.7 (4.0-11.0) 10^3/uL RBC 4.97 (4.70-6.10) 10^6/uL Hgb 15.7 (14.0-18.0) g/dL Hct 43.9 (42.0-54.0) % MCV 88.3 (80.0-94.0) fL MCH 31.6 (25.9-34.0) pg MCHC 35.8 H (29.9-35.2) g/dL RDW 12.6 (11.0-15.0) % Plt Count 232 (150-450) 10^3/uL MPV 9.5 (9.5-13.5) fL Neut % (Auto) 37.3 L (43.0-75.0) % Lymph % (Auto) 46.7 (20.5-60.0) % Weston % (Auto) 13.0 H (1.7-12.0) % Eos % (Auto) 2.2 (0.9-7.0) % Baso % (Auto) 0.4 (0.2-2.0) % Neut # (Auto) 2.5 (1.4-6.5) 10^3/uL Lymph # (Auto) 3.1 (1.2-3.8) 10^3/uL Weston # (Auto) 0.9 H (0.3-0.8) 10^3/uL Eos # (Auto) 0.2 (0.0-0.7) 10^3/uL Baso # (Auto) 0.0 (0.0-0.1) 10^3/uL Abs Immat Gran (auto) 0.03 (0.00-0.03) 10^3/uL Imm/Tot Granulo (auto) 0.4 (0.0-0.5) % PT 10.7 (9.0-11.6) sec INR 1.01 VBG pH 7.489 H (7.330-7.430) VBG pCO2 27.7 L (40.0-52.0) mmHg Sodium 139 (136-145) mmol/L Potassium 4.9 (3.5-5.1) mmol/L Chloride 100 (98-107) mmol/L Carbon Dioxide 23.8 (21.0-32.0) mmol/L Anion Gap 20.1 BUN 12.0 (7.0-18.0) mg/dL Creatinine 0.96 (0.70-1.30) mg/dL Est GFR ( Amer) >60 (>=60 mL/min/1.73m^2) Est GFR (Non-Af Amer) >60 (>=60 mL/min/1.73m^2) BUN/Creatinine Ratio 12.5 Glucose 154 H (74-106) mg/dL Lactate 4.0 H* (0.4-2.0) mmol/L Calcium 10.0 (8.5-10.1) mg/dL Magnesium 1.6 L (1.8-2.4) mg/dL Total Bilirubin 0.4 (0.2-1.0) mg/dL AST 34 (15-37) U/L ALT 54 (16-63) U/L Alkaline Phosphatase 86 (46-116) U/L Troponin I High Sens 4.9 (4.0-76.1) pg/mL C-Reactive Protein (<=0.50) mg/dL NT-Pro-B Natriuret Pep 8.0 (<=900.0) pg/mL Total Protein 8.1 (6.4-8.2) g/dL Albumin 3.8 (3.4-5.0) g/dL Globulin 4.3 g/dL Albumin/Globulin Ratio 0.9 POC Glucose 141 H (74-106) mg/dL 10/04/24 10/04/24 Range/Units 18:27 20:23 WBC (4.0-11.0) 10^3/uL RBC (4.70-6.10) 10^6/uL Hgb (14.0-18.0) g/dL Hct (42.0-54.0) % MCV (80.0-94.0) fL MCH (25.9-34.0) pg MCHC (29.9-35.2) g/dL RDW (11.0-15.0) % Plt Count (150-450) 10^3/uL MPV (9.5-13.5) fL Neut % (Auto) (43.0-75.0) % Lymph % (Auto) (20.5-60.0) % Weston % (Auto) (1.7-12.0) % Eos % (Auto) (0.9-7.0) % Baso % (Auto) (0.2-2.0) % Neut # (Auto) (1.4-6.5) 10^3/uL Lymph # (Auto) (1.2-3.8) 10^3/uL Weston # (Auto) (0.3-0.8) 10^3/uL Eos # (Auto) (0.0-0.7) 10^3/uL Baso # (Auto) (0.0-0.1) 10^3/uL Abs Immat Gran (auto) (0.00-0.03) 10^3/uL Imm/Tot Granulo (auto) (0.0-0.5) % PT (9.0-11.6) sec INR VBG pH (7.330-7.430) VBG pCO2 (40.0-52.0) mmHg Sodium (136-145) mmol/L Potassium (3.5-5.1) mmol/L Chloride (98-107) mmol/L Carbon Dioxide (21.0-32.0) mmol/L Anion Gap BUN (7.0-18.0) mg/dL Creatinine (0.70-1.30) mg/dL Est GFR ( Amer) (>=60 mL/min/1.73m^2) Est GFR (Non-Af Amer) (>=60 mL/min/1.73m^2) BUN/Creatinine Ratio Glucose (74-106) mg/dL Lactate 2.6 H* (0.4-2.0) mmol/L Calcium (8.5-10.1) mg/dL Magnesium (1.8-2.4) mg/dL Total Bilirubin (0.2-1.0) mg/dL AST (15-37) U/L ALT (16-63) U/L Alkaline Phosphatase (46-116) U/L Troponin I High Sens <4.0 L (4.0-76.1) pg/mL C-Reactive Protein 2.18 H (<=0.50) mg/dL NT-Pro-B Natriuret Pep (<=900.0) pg/mL Total Protein (6.4-8.2) g/dL Albumin (3.4-5.0) g/dL Globulin g/dL Albumin/Globulin Ratio POC Glucose (74-106) mg/dL ECG Data Attestation: I personally reviewed and interpreted this ECG as follows: (EKG interpretation. Sinus tachycardia at 112. Artifact noted. QTc of 410. No acute ST elevation.) Discharge Plan Discharge Chief Complaint: Shortness of Breath/Dyspnea Clinical Impression: Atypical chest pain, Bronchitis, Dyspnea, Wheezing Patient Disposition: Admitted as Observation Condition: Fair
[2024-10-04] MEDS: LACTATED RINGER'S SOLUTION 1,000 ML 999 ML IV (15:47)
[2024-10-04 15:55] LABS: Basophils Percent Auto 0.4 % (0.2-2.0); Eosinophils Absolute Auto 0.2 10^3/uL (0.0-0.7); Eosinophils Percent Auto 2.2 % (0.9-7.0); Hematocrit 43.9 % (42.0-54.0); Hemoglobin 15.7 g/dL (14.0-18.0); Immature Granulocytes Abs Auto 0.03 10^3/uL (0.00-0.03); Immature Granulocytes Pct Auto 0.4 % (0.0-0.5); Lymphocytes Absolute Auto 3.1 10^3/uL (1.2-3.8); Lymphocytes Percent Auto 46.7 % (20.5-60.0); Mean Corpuscular HGB Conc 35.8 g/dL (29.9-35.2); Mean Corpuscular Hemoglobin 31.6 pg (25.9-34.0); Mean Corpuscular Volume 88.3 fL (80.0-94.0); Mean Platelet Volume 9.5 fL (9.5-13.5); Monocytes Absolute Auto 0.9 10^3/uL (0.3-0.8); Neutrophils Absolute Auto 2.5 10^3/uL (1.4-6.5); Neutrophils Percent Auto 37.3 % (43.0-75.0); Platelet Count 232 10^3/uL (150-450); Red Blood Count 4.97 10^6/uL (4.70-6.10); Red Cell Distribution Width 12.6 % (11.0-15.0); White Blood Count 6.7 10^3/uL (4.0-11.0)
[2024-10-04 15:59] LABS: PCO2 VBG 27.7 mmHg (40.0-52.0); pH VBG 7.489 (7.330-7.430)
[2024-10-04 16:03] LABS: INR 1.01; Prothrombin Time 10.7 sec (9.0-11.6)
[2024-10-04] MEDS: IPRATROPIUM/ALBUTEROL SULFATE 3 ML AMPUL.NEB 6 ML IH (16:13)
[2024-10-04 16:20] LABS: Alanine Aminotransferase 54 U/L (16-63); Albumin Globulin Ratio 0.9; Albumin Level 3.8 g/dL (3.4-5.0); Alkaline Phosphatase 86 U/L (46-116); Anion Gap 20.1; Aspartate Amino Transferase 34 U/L (15-37); BUN Creatinine Ratio 12.5; Bilirubin Total 0.4 mg/dL (0.2-1.0); Carbon Dioxide 23.8 mmol/L (21.0-32.0); Chloride 100 mmol/L (98-107); Estimated GFR (African America >60 (>=60 mL/min/1.73m^2); Estimated GFR (Non-African Ame >60 (>=60 mL/min/1.73m^2); Globulin 4.3 g/dL; Glucose 154 mg/dL (74-106); Magnesium 1.6 mg/dL (1.8-2.4); Potassium 4.9 mmol/L (3.5-5.1); Sodium 139 mmol/L (136-145); Total Protein 8.1 g/dL (6.4-8.2); Troponin I High Sensitivity 4.9 pg/mL (4.0-76.1)
--- NOTE | 2024-10-04 17:06 | CT_ITS ---
[address] [address] Patient Name: LYLY KIDD MRN: [id number] date: 1965 Sex: M Assigned Patient Location: ER Current Patient Location: ER Accession/Order Number: [id number] Exam Date: 10/04/2024 17:57 Report Date: 10/04/2024 18:03 At the request of: AJ DE LA ROSA MD Procedure: CT angio chest CT angio chest 10/04/2024 5:37 PM SIGN AND SYMPTOMS: ^sob CONTRAST: 100 mL of intravenous Omnipaque 350 TECHNIQUE: Multidetector CT axial slices of the chest were obtained with IV contrast. Multiplanar and 3-D reformats were performed and viewed on a separate workstation and reviewed to further define anatomy and possible pathology. CT was performed with one or more of the following dose reduction techniques: Automated exposure control, adjustment of the mA and/or kV according to patient size, or use of iterative reconstruction technique. COMPARISON: 04/02/2024. FINDINGS: Lower neck: Thyroid gland within normal limits, no supraclavicle adenopathy. Vessels: Within normal limits. There is no evidence of pulmonary embolism. Mediastinum and Sherin: Within normal limits. Heart: Normal size. No pericardial effusion. Airways: Within normal limits Lungs: Airspace opacities are noted predominantly in the lower lobes bilaterally. These may be infectious or inflammatory. Pleura: Within normal limits. Chest Wall: Within normal limits. Upper Abdomen: There is evidence of prior cholecystectomy. Bones: Within normal limits. CT/CT angio chest IMPRESSION: There is no evidence of pulmonary embolism. Airspace opacities are noted predominantly in the lower lobes bilaterally. These may be infectious or inflammatory. Impression dictated by: Terrence Basurto M.D. 10/04/2024 6:03 PM Dictation Location: [place] [address] Electronically authenticated by: [id number] Y Date: 10/04/2024 18:03
[2024-10-04] MEDS: KETOROLAC TROMETHAMINE 30 MG/ML VIAL 15 MG IVP (17:19)
[2024-10-04] MEDS: METHYLPREDNISOLONE SOD SUCC PF 125 MG/2 ML VIAL IVP (17:19)
[2024-10-04] MEDS: MORPHINE SULFATE 2 MG/ML SYRINGE IV ×2 (17:19→22:04)
[2024-10-04] MEDS: DIAZEPAM 10 MG/2 ML SYRINGE 2 MG IV (17:20)
[2024-10-04] MEDS: MAGNESIUM SULFATE IN WATER 2 GM/50 ML PREMIX IV (17:40)
[2024-10-04] MEDS: 0.9 % SODIUM CHLORIDE 1,000 ML 1000 ML IV (17:40)
[2024-10-04] MEDS: LEVOFLOXACIN IN DEXTROSE 5 % 750 MG/150 ML PREMIX 100 MG IV (19:14)
[2024-10-04] MEDS: MORPHINE SULFATE 4 MG/ML VIAL IV (19:14)
[2024-10-04 19:20] LABS: Lactate/Lactic Acid 2.6 mmol/L (0.4-2.0)
[2024-10-04 20:44] LABS: Troponin I High Sensitivity <4.0 pg/mL (4.0-76.1)
[2024-10-04 20:57] LABS: C Reactive Protein 2.18 mg/dL (<=0.50)
--- OUTSIDE RECORDS SUMMARY | 2024-10-04 21:59 | XMS_ITS | CCD ---
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 Kimi Martel Primary Care DO Kimi Etienne Primary Care Provider MD Charles Claros Attending Provider [phone] Kimi Weiss MD Primary Care Provider [phone] Kimi Weiss DO Primary Care Provider Kimi Weiss DO Primary Care Provider Des Contreras DO Emergency Provider Leslie Sanchez MD Admit Provider Leslie Sanchez MD Attending Provider [phone] Wendy Cruz RN Other Provider Unavailable Jacinto Livingston MD Other Provider Des Musa MD Other Provider [phone] Iza Patel MD Other Provider Brian Blanchard [...] Des Musa Consulting Iza Prater Consulting Unavailable Abhishek, Kimi Primary Care Unavailable Charles Claros Admitting Unavailable Charles Claros Attending Unavailable Abhishek RANDOLPH, Kimi Martel Primary Care Provider RADHA GATES Referring Unavailable ABHISHEK, KIMI MARTEL Primary Care Unavailabl BETHANY Baker Attending Unavailable MICHAEL, KARON Attending Unavailable MICHAEL, KARON Attending Unavailable KARON RODRIGUEZ Referring Unavailable BEE BLACKMON Attending Unavailable KIMI WEISS Primary Care Unavailabl e MELANY, ANTIMO P Attending Unavailable RADHA GATES Referring Unavailable ABHISHEK, KIMI MARTEL Primary Care Unavailabl e RADHA GATES Attending Unavailable KIMI WEISS Primary Care Unavailabl e RADHA GATES Attending Unavailable KIMI WEISS Primary Care Unavailabl e RADHA GATES Attending Unavailable KIMI WEISS Primary Care Unavailabl e Kimi Weiss Attending Unavailable Abhishek, Kimi P Primary Care [...] Abhishek, Kimi P Attending Unavailable Kimi Weiss Admitting Unavailable Kimi Weiss Primary Care Unavailable Kimi [...] ON FILE] Propensity to adverse reactions (disorder) [facility] Medications Current Medications Medication Drug Class(es) Dates Sig (Normalized) Sig (Original) acetaminophen 300 mg / butalbital 50 mg / caffeine 40 mg oral capsule (16 sources) Barbiturate, Central Nervous System Stimulant, Methylxanthine Start: 04-06-2022 take 1 capsule by mouth every six hours as needed butalbital-aceta minophen-caffein e (Fioricet) 50-300-40 MG capsule Take 1 capsule by mouth every 6 (six) hours if needed 04/06/2022 Active Start: 04-08-2021 take 1 capsule by mo [facility] every four hours as needed for headache Vdheyefhsr-XPBY-Vcrcefxz 50-300-40 MG Oral Capsule TAKE 1 CAPSULE [...] days 13 May, 2022 Active Start: 04-02-2021 HYDROcodone-ac etaminophen ([place]) 5-325 mg tablet Take by mouth. 04/02/2021 [...] needed for Pain 0 June 15, 2019 12:03pm February 28, 2020 1:49pm Blood Glucose Monitoring Sup pl (OneTouch Verio Flex System) w/Device kit (5 sources) Start: 03-20-2024 Blood Glucose Monitoring Suppl (OneTouch Verio Flex System) w/Device kit USE DIRECTED DAILY 03/20/2024 Active Blood-Glucose Meter (Onetouc h Verio Flex Meter) misc (2 sources) Start: 03-31-2024 Blood-Glucose Meter (Onetouch Verio Flex Meter) misc Active EACH .ROUTE .MEDSUPPLY March 31, 2024 1:00am As directed Start: 03-31-2024 Blood-Glucose Meter (Onetouch Verio Flex Meter) misc Active EACH .ROUTE .MEDSUPPLY March 31, 2024 12:00am As directed blood-glucose meter misc (5 sources) Start: 03-20-2024 blood-glucose meter misc ONE TOUCH VERIO FLEX BG MONITOR, See Instructions, Instructions: USE DIRECTED DAILY, # 1 EA, 0 Refill(s), Pharmacy: [id number], USE DIRECTED DAILY, Supply, 185, cm, 03/10/24 15:25:00 EST, Height, 120, kg, 03/07/24 16:07:00 EST, Weight Dosing 03/20/2024 Active cyclobenzaprine hydrochloride 10 mg oral tablet (20 sources) Muscle Relaxant Start: 02-28-2020 End: 09-13-2024 take 1 tablet by mouth at bedtime cyclobenzaprine (Flexeril) 10 MG tablet Take 10 mg by mouth at bedtime 04/22/2023 Active esomeprazole 20 mg delayed release oral capsule [...] tablet Discontinued 48 MG PO Daily December 28, 2017 12:00am August 04, 2018 2:35pm gabapentin 300 mg oral capsule (15 sources) Anti-epileptic Agent Start: 06-22-2024 gabapenti n (Neurontin) 300 mg capsule Indications: Postlaminectomy syndrome, lumbar region 1 capsule each evening for two days, then 1 capsule twice daily for two days, then one capsule three times daily 90 capsule 3 06/22/2024 Active Start: 09-19-2020 take 1 capsule by mo uth twice daily Gabapentin 300 MG Oral Capsule TAKE 1 CAPSULE BY MOUTH TWICE DAILY Quantity: 60 Refills: 0 Ordered: 19-Sep-2020 DO Start : 19-Sep-2020 Complete Start: 03-05-2020 End: 09-07-2023 take 1 tablet by mouth twice daily Gabapentin 600 mg Tablet Discontinued 600 MG PO Twice daily 60 30 March 05, 2020 1:00am September 07, 2023 9:17am glyBURIDE 3 mg oral tablet (5 sources) Sulfonylurea take 1 tablet by mouth once daily glyBURIDE micronized (Glynase) 3 mg tablet Take 1 tablet (3 mg) by mouth once daily. Active lisinopril 30 mg oral tablet (20 sources) Angiotensin Converting Enzyme Inhibitor Start: End: take 1 tablet by mouth once daily Lisinopril 30 mg tablet Active 30 MG PO Daily May 15, 2024 1:00am Start: 08-05-2023 End: 09-07-2023 take 2 tablets by mouth once daily Lisinopril 10 mg tablet Discontinued 20 MG PO Daily August 05, 2023 9:05am September 07, 2023 9:17am Start: 08-05-2023 End: 09-07-2023 take 20 mg [...] tablet Discontinued 10 MG PO Daily December 28, 2017 12:00am August 05, 2023 9:05am lisinopril 20 MG tablet Indications: Hypertension Take 30 mg by mouth Daily Active LORazepam 1 mg oral tablet (2 sources) Benzodiazepine Start: 05-15-2024 take 1 tablet by mouth every six hours as needed for anxiety Lorazepam (Ativan) 1 mg tablet Active 1 MG PO Every 6 hours as needed for anxiety 14 7 May 15, 2024 1:00am metFORMIN hydrochloride 500 mg oral tablet (8 sources) Biguanide Start: 03-31-2024 End: 09-13-2024 take 2 tablets by mouth twice daily Metformin 500 mg tablet Active 1000 MG PO Twice daily September 13, 2024 9:23am Ozempic, 0.25 or 0.5 MG/DOSE, 2 MG/3ML solution pen-injector (5 sources) Start: 02-24-2024 inject 0.25 mg by subcutaneous injection every week Ozempic, 0.25 or 0.5 MG/DOSE, 2 MG/3ML solution pen-injector INJECT 0.25 MG UNDER THE SKIN EVERY WEEK . ROTATE INJECTION SITES. 02/24/2024 Active rimegepant 75 mg disintegrating oral tablet (6 sources) Start: 03-20-2024 Rimegepant Sulfate (Nurtec) 75 [...] 2020 6:32pm Start: 12-28-2017 End: 06-15-2019 take 1 tablet by mouth once daily Rivaroxaban 20 mg tablet Discontinued 20 MG PO Daily December 28, 2017 12:00am June 15, 2019 12:04pm sennosides, mcc 8.6 mg oral tablet (1 source) Start: [...] / oxyCODONE hydrochloride 5 mg oral tablet (17 sources) Opioid Agonist Start: 08-05-2023 End: 05-15-2024 take 1 tablet by mouth twice daily as needed for pain Oxycodone-Acetamin ophen 5-325 mg tablet Discontinued 1 TAB PO Twice daily as needed for pain 60 August 06, 2023 May 15, 2024 2:43pm Start: 07-09-2018 End: 06-13-2019 Oxycodone-Acetaminophen (Per cocet) 5-325 mg tablet Discontinued 1 TAB PO .Q12 as needed for pain July 09, 2018 June 13, 2019 11:45pm [id number] 200 actuat albuterol 0.09 mg/actuat metered dose inhaler (2 sources) beta2-Adrenergic Agonist Start: 04-10-2024 End: 09-13-2024 Albuterol Sulfate 90 mcg/actuation HFA aerosol inhaler Discontinued 1 INH INHALATION Q6H as needed for shortness of breath April 10, 2024 1:00am September 13, 2024 9:22am aspirin 81 mg chewable tablet (2 sources) Platelet Aggregation Inhibitor, Nonsteroidal Anti-inflammatory Drug Start: 04-10-2024 End: 04-13-2024 take 1 tablet by mouth once daily Aspirin 81 mg tablet,chewable Discontinued 1 TAB PO Daily April 10, 2024 1:00am April 13, 2024 3:33pm carisoprodol 350 mg oral tablet (12 sources) Muscle Relaxant Start: 06-13-2019 End: 02-28-2020 take 1 tablet by mouth three times daily as needed for pain Carisoprodol 350 mg tablet Discontinued 350 MG PO Three times daily as needed for Muscle Pain 0 June 15, 2019 12:03pm February 28, [...] Ordered: 07-Jan-2021 DO Start : 07-Jan-2021 Complete 1 ml dexamethasone phosphate 10 mg/ml injection (1 source) Corticosteroid Start: 08-18-2024 End: 08-18-2024 As needed, Starting on Wed08/18/24 at 0829, Intraprocedure docusate sodium 100 mg oral capsule (9 sources) Start: 03-05-2020 End: 09-07-2023 take 1 capsule by mouth twice daily Docusate Sodium (Dok) 100 mg Capsule Discontinued 100 MG PO Twice daily 60 March 05, 2020 1:00am September 07, 2023 9:17am Comment on above: Medication should be taken with plenty of water. doxycycline hyclate 100 mg oral capsule (2 sources) Tetracycline-class Drug Start: 03-31-2024 End: 04-10-2024 take 1 capsule by mouth twice daily Doxycycline Hyclate 100 mg capsule Discontinued 100 MG PO Twice daily 20 March 31, 2024 1:00am April 10, 2024 5:20pm DULoxetine 60 mg delayed release oral capsule (20 sources) Serotonin and Norepinephrine Reuptake Inhibitor Start: 08-01-2020 End: 09-13-2024 take 1 capsule by mouth once daily Duloxetine 60 mg capsule,delayed release(DR/EC) Discontinued 60 MG PO Daily March 31, 2024 1:00am September 13, 2024 9:23am Start: 07-12-2020 DULoxetine HCl - 30 MG [...] 1 ml galcanezumab-gnlm 100 mg/ml prefilled syringe (20 sources) Start: 03-27-2024 End: 04-10-2024 Galcanezumab-Gnlm (Emgality Syringe) 300 mg/3 mL (100 mg/mL x 3) syringe Discontinued MG SUBCUT March 31, 2024 1:00am April 10, 2024 5:21pm Start: 08-12-2021 Emgality Pen 1 20 mg/mL auto-injector Inject 1 Syringe (120 mg) under the skin 1 time if needed (headache). 08/12/2021 Active iohexol (OMNIPaque) 240 mg iodine/mL solution (1 source) Start: 08-18-2024 End: 08-18-2024 As needed, Starting on Wed08/18/24 at 0830, Intraprocedure iohexol (OMNIPaque) 350 mg iodine/mL solution 75 mL (1 source) Start: 07-13-2024 End: 07-13-2024 75 mL, intravenous, Once in imaging, Starting on Karolyn 07/13/24 at 1029, For 1 dose 10 ml lidocaine hydrochloride 10 mg/ml injection (7 sources) Antiarrhythmic, Amide Local Anesthetic Start: 08-18-2024 End: 08-18-2024 As needed, Starting on Wed08/18/24 at 0830, Intraprocedure Start: 06-15-2019 End: 02-28-2020 apply 1 dose [...] 2020 1:49pm methocarbamol 500 mg oral tablet (9 sources) Muscle Relaxant Start: 11-26-2020 End: 12-09-2020 take 2 tablets by mouth every eight hours Methocarbamol 500 MG Oral Tablet TAKE 2 TABLETS BY MOUTH EVERY 8 HOURS Quantity: 90 Refills: 0 Ordered: 25-Dec-2020 DO Start : 26-Nov-2020 Complete Start: 07-04-2018 End: 08-04-2018 take 1 tablet by mouth every four hours Methocarbamol 750 mg tablet Discontinued 750 MG PO Q4H July 04, 2018 12:00am August 04, 2018 2:35pm Comment on above: May cause drowsiness . Alcohol may intensify this effect. Use care when operating dangerous machinery. methylPREDNISolone 4 mg oral tablet (12 sources) Corticosteroid Start: 2019 End: 2023 take 1 tablet by mouth once Methylprednisolone (Medrol (Samm)) 4 mg tablets,dose pack Discontinued 0 PO .COMPLEX March 05, 2020 1:00am September 07, 2023 9:17am orally per package directions Start: 07-04-2018 End: 08-04-2018 Methylprednisolone (Medrol ( Samm)) 4 mg tablets,dose pack Discontinued 1 TAB PO As Directed July 04, 2018 12:00am August 04, 2018 2:36pm 5 ml midazolam 1 mg/ml injection (1 source) Benzodiazepine Start: 08-18-2024 End: 08-18-2024 As needed, Starting on Wed08/18/24 at 0829, Intraprocedure oxyCODONE hydrochloride 5 mg oral tablet (9 sources) Opioid Agonist Start: 03-05-2020 End: 09-07-2023 take 1 tablet by mouth every four hours as needed for pain Oxycodone 5 mg Tablet Discontinued 5 MG PO Q4H as needed for back pain 05 11March 05, 2020 September 07, 2023 9:17am Comment [...] cause serious breathing problems. polyethylene glycol 3350 [id number] mg powder for oral solution (3 sources) [...] 03-Jul-2020 DO Start : 03-Jul-2020 Complete Semaglutide (2 sources) Start: 05-15-2024 End: 09-13-2024 inject 1 mg by subcutaneous injection once Semaglutide (Ozempic) 1 mg/dose (4 mg/3 mL) pen injector Discontinued 1 MG SUBCUT MO@0900 May 15, 2024 1:00am September 13, 2024 9:24am Start: 05-15-2024 inject 1 mg by subcu taneous injection once Semaglutide (Ozempic) 1 mg/dose (4 mg/3 mL) pen injector Active 1 MG SUBCUT MO@0900 May 15, 2024 12:00am Semaglutide (2 sources) Start: 03-31-2024 End: 05-15-2024 Semaglutide (Ozempic) 0.25 m g or 0.5 mg (2 mg/3 mL) pen injector Discontinued 0.25 MG SUBCUT every week March 31, 2024 1:00am May 15, 2024 2:22pm Start: 03-31-2024 End: 05-15-2024 Semaglutide (Ozempic) 0.25 m g or 0.5 mg (2 mg/3 mL) pen injector Discontinued 0.25 MG SUBCUT every week March 31, 2024 12:00am May 15, 2024 1:22pm Sennosides (Senna Lax) 8.6 mg Tablet (5 sources) Start: 03-05-2020 End: 09-07-2023 take 2 [...] 05, 2020 1:00am September 07, 2023 9:18am 10 ml sodium bicarbonate 84 mg/ml injection (1 source) Start: 08-18-2024 End: 08-18-2024 As needed, Starting on Wed at 0830, Intraprocedure topiramate 25 mg oral tablet (11 sources) [...] Quantity: 120 Refills: 2 Ordered: 23-Apr-2021 Lisha [employer]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, 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 Start : 23-Apr-2021 Active Triamcinolone (13 sources) Corticosteroid Start: 01-30-2017 TRISTAN pablo 14 Jan, 2017 60 mg verapamil hydrochloride [...] and foot] Onset: 3 Episodic Anxiety disorders (3 sources) Anxiety; Translations: [Anxiety disorder, unspecified] Onset: [...] reflux disease without esophagitis] Chronic Essential hypertension (20 sources) Benign essential hypertension; Translations: [Benign essential hypertension] Onset: 2 08-08-2023 Chronic Fluid and electrolyte disorders (2 sources) Bicarbonate level - finding; Translations: [Other disorders of electrolyte and fluid balance, not elsewhere classified] 05-15-2024 Episodic Headache; including migraine (20 sources) Chronic cluster headache; Translations: [Chronic cluster headache, not intractable] Onset: 4 08-08-2023 Chronic Joint disorders and dislocations; trauma-related (15 sources) Derangement of left knee; Translations: [Unspecified internal derangement of left knee] Chronic Nausea and vomiting (15 sources) Nausea; Translations: [Nausea] Episodic Other acquired deformities (15 sources) Lumbar spondylolisthesis; Translations: [Spondylolisthesis, lumbar region] Episodic Other aftercare (1 source) Other intermediate project manager (current) drug therapy; Translations: [OTH MEDIA SERVICES SPECIALIST CURRENT DRUG THERAPY] Onset: 2 Episodic Other aftercare (1 source) senior living (current) use of anticoagulants; Translations: [GROUP HOME CURRNT USE ANTICOAGULANTS] Onset: 2 Episodic Other aftercare (6 sources) Long-term current use of anticoagulant; Translations: [senior living (current) use of anticoagulants] 02-28-2020 Episodic Other circulatory disease (6 sources) Inferior vena cava filter in situ; [...] right leg] Episodic Other connective tissue disease (6 sources) Pain in calf; Translations: [Pain in left lower leg] 06-13-2019 Episodic Other lower respiratory disease (6 sources) Pleuritic pain; Translations: [Pleurodynia] 06-13-2019 Episodic Other lower respiratory disease (2 sources) Dyspnea; Translations: [Dyspnea, unspecified] 05-15-2024 Episodic Other lower respiratory disease (2 sources) Acute lower respiratory tract infection; Translations: [Unspecified [...] pain] 08-02-2023 Chronic Other nervous system disorders (17 sources) Other chronic pain; Translations: [Other chronic pain] Onset: 1 Resolved: 2 Chronic Other nervous system disorders (6 sources) Polyneuropathy; Translations: [Polyneuropathy, unspecified] Onset: 4 08-08-2023 Chronic Other nutritional; endocrine; and metabolic disorders (4 sources) Obesity; Translations: [Obesity, unspecified] Chronic Other nutritional; endocrine; and metabolic disorders (15 sources) Obese class II; Translations: [Body mass index (BMI) 35.0-35.9, adult] Chronic Other nutritional; endocrine; and metabolic disorders (2 sources) Hypomagnesemia; Translations: [Hypomagnesemia] 05-15-2024 Chronic Other nutritional; endocrine; and metabolic disorders (2 sources) Hypercalcemia; Translations: [Hypercalcemia] 05-15-2024 Chronic Phlebitis; thrombophlebitis and thromboembolism (10 sources) H/O: thrombosis; Translations: [Personal history of other venous thrombosis and embolism] Onset: 4 08-08-2023 Episodic Pulmonary heart disease (17 sources) Pulmonary embolism; Translations: [Other pulmonary embolism [...] region] Onset: 1 Resolved: 2 12-10-2020 Chronic Sprains and strains (14 sources) Sprain of ligaments of lumbar spine, initial encounter; Translations: [Lumbar back sprain S33.5XXA] Onset: 1 Resolved: 2 Episodic Substance-related disorders (15 sources) Opioid use, unspecified, uncomplicated; Translations: [Continuous [...] Classification Problem Date Documented Da te Episodic/Chronic Nonspecific chest pain (10 sources) Chest pain, unspecified; Translations: [Chest pain] Onset: 04-14-2022 Episodic Other nervous system disorders (6 sources) Paresthesia; Translations: [Paresthesia of skin] Onset: 08-08-2023 08-08-2023 Episodic Other nutritional; endocrine; and metabolic disorders (10 sources) Severe obesity; Translations: [Morbid obesity] Resolved: 09-16-2021 Chronic Spondylosis; intervertebral disc disorders; other back problems (20 sources) Lumbar radiculopathy; Translations: [Thoracic or lumbosacral neuritis or radiculitis, unspecified] Onset: 05-12-2022 11-26-2020 Episodic Results Test Name Value Interpretation Reference Range Facility Outside Recordson 09-13-2024 Outside Records [id number]#[id number] F [facility] PAIN MANAGEMENTon [place] PAIN MANAGEMENT These images are not reportable by radiology and will not be interpreted by Radiologists. Normal [facility] [place] pain managementon 025 These images are not reportable by radiology and will not be interpreted by Radiologists. IMAGING Glucose Test strip manual (B ld) [Mass/Vol]on 08-18-2024 Glucose [Mass/Vol] 125 mg/dL High 74 - 99 mg/dL [facility] Interpretation and review of laboratory results Abnormal [facility] Glucose [Mass/Vol] 125 mg/dL High 74-99 [facility] Comment on above: Performed By: #### 2 [id number] #### JANELLE Fisher ([id number]) [facility] ([facility]) [address] [place] [address] Transforaminalon 08-18-2024 [facility] Work Phone: Radiology Study observation (narrative) [facility] Work Phone: CT LUMBAR SPINE W IV CONTRAS Ton 07-13-2024 CT LUMBAR SPINE W IV CONTRAST Interpreted By: Chandler Murphy, STUDY: CT LUMBAR SPINE W IV CONTRAST 07/13/2024 10:32 am INDICATION: Signs/Symptoms:post-lami syndrome, Right LE pain ,M96.1 Postlaminectomy syndrome, not elsewhere classified COMPARISON: MRI lumbar spine dated 05/12/2022. ACCESSION NUMBER(S): [id number] ORDERING CLINICIAN: RADHA GATES TECHNIQUE: Axial CT images of the lumbar spine are obtained following administration of 75 mL Omnipaque 350 intravenous contrast. Axial, coronal and sagittal reconstructions are provided for review. FINDINGS: Segmentation: Normal. Hardware: Postoperative change of L4-L5 posterior spinal fusion with bilateral posterior pedicular screws and stabilization rods. There is also left lateral approach interbody fixation at L3-L4 with plate and screw component as well as interbody spacer. The hardware components appear intact without discrete periprosthetic lucency. Elements of vertebral body bridging osseous fusion are suggested at the operative levels. Fracture: No acute fracture. Vertebral Body Heights: Normal. Alignment: Mild rotatory levo scoliosis. Estimated 3-4 mm retrolisthesis of L2 on L3. Intervertebral Disc Spaces: There is moderate degenerative intervertebral disc space height loss at L2-L3 with subchondral cystic change versus small Schmorl's node deformities involving the inferior endplate of L2. Degenerative change: T12-L1: There is no significant spinal canal stenosis or neural foraminal narrowing. L1-2: Minimal disc bulge. There is no significant spinal canal or neural foraminal narrowing. L2-3: Previous right hemilaminectomy. Minimal facet arthropathy. Disc uncovering and disc bulge with hypertrophic endplate spurring. There is mild lateral recess narrowing suggested without additional spinal canal stenosis. There is minimal/mild left and moderate to severe right neural foraminal narrowing with facet osteophyte component likely compressing the exiting right L2 nerve root. L3-4: Prior laminectomy. Yskxj-isutxbi-fbyn-left facet arthropathy. Mild posterior disc osteophyte components. Beam hardening artifact from hardware components limits delineation with no overt osseous spinal canal stenosis. Suspected mild tjzvf-qpcosvq-tvrs-left neural foraminal narrowing. L4-5: Beam hardening artifact from hardware components degrades evaluation. No overt high-grade osseous spinal canal stenosis or neural foraminal narrowing. L5-S1: Mild bilateral facet arthropathy with ligamentum flavum hypertrophy. Mild disc bulge and endplate spurring. No CT apparent spinal canal stenosis. Qhjw-yr-ocjnppsq bilateral neural foraminal narrowing suggested. Prevertebral/Paraspinal Soft Tissues: Scarring overlying the laminectomy region. Fatty atrophy of the inferior posterior paraspinal musculature. IVC filter noted. Element of hepatic steatosis suggested. IMPRESSION: Postoperative change of L4-L5 posterior spinal fusion and left lateral interbody fixation at L3-L4. Elements of bridging osseous fusion are suggested at the operative levels. There is no acute osseous abnormality or CT apparent hardware complication. 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 Moderate to severe right neural foraminal narrowing at this level with facet osteophyte likely compressing the exiting right L2 nerve root. MACRO: None Signed by: Chandler Murphy 07/14/2024 10:59 AM Dictation workstation: [id number] [facility] Electronic Messagingon 06-28 Electronic Messaging -- From: Erica Quiroz RN CDE BSN To: Kimi Weiss DO; Sent: 06/27/2024 16:55:59 EDT Subject: DSMES program Dr. Weiss, This communication is to inform you that your patient Lyly Quinn, 1965, has completed the DSMES program. You can view records in the EMR and any paper documents will be placed in your mailbox. Thank you, MICHELLE Wood, RN, [facility] From: Kimi Weiss DO To: Erica Quiroz RN CDE BSN; Sent: 06/28/2024 07:07:58 EDT Subject: RE: DSMES program Caller Name: LYLY QUINN; Caller Number: Alexander , Oral ty [facility] Outside Recordson 06-26-2024 Outside Records [id number] [facility] Outside Record[facility] 05-25-2024 Outside Records [id number] [facility] Outside Recordson 05-22-2024 Outside Records [id number]#1.00OTGTI FF [facility] ED Note - Physicianon 2024 ED Note - Physician [id number]#[id number] F [facility] Alanine aminotransferase [En zymatic activity/volume] in Serum or PlasmaOrdered By: Brian Blanchard on 05-15-2024 ALT [Catalytic activity/Vol] Alanine aminotransferase [Enzymatic activity/volume] in Serum or Plasma 752 [facility] Albumin [Mass/volume] in Ser um or Plasma by Bromocresol green (BCG) dye binding methoOrdered By: Brian Blanchard on 05-15-2024 Albumin BCG dye [Mass/Vol] Albumin [Mass/volume] in Serum or Plasma by Bromocresol green (BCG) dye binding metho 3.5-5.7 [facility] Alkaline phosphatase [Enzyma tic activity/volume] in Serum or PlasmaOrdered By: Brian Blanchard on 05-15-2024 ALP [Catalytic activity/Vol] Alkaline phosphatase [Enzymatic activity/volume] in Serum or Plasma 34-104 [facility] Aspartate aminotransferase [ Enzymatic activity/volume] in Serum or PlasmaOrdered By: Brian Blanchard on 05-15-2024 AST [Catalytic activity/Vol] Aspartate aminotransferase [Enzymatic activity/volume] in Serum or Plasma 13-39 [facility] B-Type Natriuretic Peptideon 05-15-2024 Natriuretic peptide B (Bld) [Mass/Vol] 8.0 pg/mL Normal 5-100 [facility] Comment on above: Result Comment: PERF ORMED BY: [facility] [place] [address] [place] [address] PATHOLOGIST [employer]ENT ASSEMBLER BRANDON AVITIA M.D. Performed By: #### G LULS #### Point of Care testing , Basophils Auto (Bld) [#/Vol] Ordered By: Brian Blanchard on 05-15-2024 Basophils (Bld) [#/Vol] Automated basophil count 0.0-0.2 [facility] Basophils/100 WBC Auto (Bld) Ordered By: Brian Blanchard on 05-15-2024 Basophils/100 WBC (Bld) Automated basophil % . [facility] Bilirubin.total [Mass/volume ] in Serum or PlasmaOrdered By: Brian Blanchard on 05-15-2024 Bilirubin [Mass/Vol] Bilirubin.total [Mass/volume] in Serum or Plasma 0.3-1.0 [facility] Calcium [Mass/volume] in Ser um or PlasmaOrdered By: Brian Blanchard on 05-15-2024 Calcium [Mass/Vol] Calcium [Mass/volume ] in Serum or Plasma High 8.6-10.3 [facility] Carbon dioxide, total [Moles /volume] in Serum or PlasmaOrdered By: Brian Blanchard on 05-15-2024 CO2 [Moles/Vol] Carbon dioxide, tota l [Moles/volume] in Serum or Plasma Low 21.0-31.0 [facility] Chloride [Moles/volume] in S fina or PlasmaOrdered By: Brian Blanchard on 05-15-2024 Chloride [Moles/Vol] Chloride [Moles/vol ume] in Serum or Plasma 98-107 [facility] Complete Blood Count Auto Di ffon 05-15-2024 Basophils (Bld) [#/Vol] 0.1 10*3/uL Normal 0.0-0.2 [facility] Comment on above: Result Comment: PERF ORMED BY: [facility] [place] [address] [place] [address] PATHOLOGIST [employer] ASSEMBLER BRANDON AVITIA M.D. Performed By: #### B DISPUTE RESOLUTION SPECIALIST, CMP, CBC, MG, CK, HS TROP #### [address] Basophils/100 WBC (Bld) 0.8 % Normal . [facility] Comment on above: Performed By: #### B DISPUTE RESOLUTION SPECIALIST, CMP, CBC, MG, CK, HS TROP #### [address] Eosinophils (Bld) [#/Vol] 0.1 10*3/uL Normal 0.0-0.45 [facility] Comment on above: Performed By: #### B DISPUTE RESOLUTION SPECIALIST, CMP, CBC, MG, CK, HS TROP #### [address] Eosinophils/100 WBC (Bld) 0.7 % Normal . [facility] Comment on above: Performed By: #### B DISPUTE RESOLUTION SPECIALIST, CMP, CBC, MG, CK, HS TROP #### [address] Erythrocyte distribution width (RBC) [Ratio] 13.7 % Normal 12.0-14.8 [facility] Comment on above: Performed By: #### B DISPUTE RESOLUTION SPECIALIST, CMP, CBC, MG, CK, HS TROP #### [address] Hematocrit (Bld) [Volume fraction] 45.5 % Normal 38.8-50.0 [facility] Comment on above: Performed By: #### B DISPUTE RESOLUTION SPECIALIST, CMP, CBC, MG, CK, HS TROP #### [address] Hemoglobin (Bld) [Mass/Vol] 15.7 g/dL Normal 13.0-17.0 [facility] Comment on above: Performed By: #### B DISPUTE RESOLUTION SPECIALIST, CMP, CBC, MG, CK, HS TROP #### [address] Lymphocytes (Bld) [#/Vol] 3.6 10*3/uL Normal 1.00-4.8 [facility] Comment on above: Performed By: #### B DISPUTE RESOLUTION SPECIALIST, CMP, CBC, MG, CK, HS TROP #### [address] Lymphocytes/100 WBC (Bld) 37.0 % Normal . [facility] Comment on above: Performed By: #### B DISPUTE RESOLUTION SPECIALIST, CMP, CBC, MG, CK, HS TROP #### [address] MCH (RBC) [Entitic mass] 31.0 pg Normal 27.5-35.2 [facility] Comment on above: Performed By: #### B DISPUTE RESOLUTION SPECIALIST, CMP, CBC, MG, CK, HS TROP #### [address] MCV (RBC) [Entitic vol] 90.3 fL Normal 83.5-101 [facility] Comment on above: Performed By: #### B DISPUTE RESOLUTION SPECIALIST, CMP, CBC, MG, CK, HS TROP #### [address] Mean Corpuscular HGB Conc 34.4 g/dL Normal 32.5-35.6 [facility] Comment on above: Performed By: #### B DISPUTE RESOLUTION SPECIALIST, CMP, CBC, MG, CK, HS TROP #### [address] Monocytes (Bld) [#/Vol] 0.9 10*3/uL High 0.0-0.8 [facility] Comment on above: Performed By: #### B DISPUTE RESOLUTION SPECIALIST, CMP, CBC, MG, CK, HS TROP #### [address] Monocytes/100 WBC (Bld) 22.03 % High 0.00-20.00 [facility] Comment on above: Result Comment: For adults in ED, MDW > 20.0 may be associated with a higher risk of sepsis during the first 12 hrs of hospital admission Performed By: #### B DISPUTE RESOLUTION SPECIALIST, CMP, CBC, MG, CK, HS TROP #### [address] Monocytes/100 WBC (Bld) 9.4 % Normal . [facility] Comment on above: Performed By: #### B DISPUTE RESOLUTION SPECIALIST, CMP, CBC, MG, CK, HS TROP #### [address] Neutrophils (Bld) [#/Vol] 5.1 10*3/uL Normal 1.8-7.7 [facility] Comment on above: Performed By: #### B DISPUTE RESOLUTION SPECIALIST, CMP, CBC, MG, CK, HS TROP #### [address] Neutrophils/100 WBC (Bld) 52.1 % Normal . [facility] Comment on above: Performed By: #### B DISPUTE RESOLUTION SPECIALIST, CMP, CBC, MG, CK, HS TROP #### [address] NRBC% 0.1 /100{WBC} Normal 0-0.5 [facility] Comment on above: Performed By: #### B DISPUTE RESOLUTION SPECIALIST, CMP, CBC, MG, CK, HS TROP #### [address] Platelet mean volume (Bld) [Entitic vol] 8.0 fL Normal 6.6-10.1 [facility] Comment on above: Performed By: #### B DISPUTE RESOLUTION SPECIALIST, CMP, CBC, MG, CK, HS TROP #### [address] Platelets (Bld) [#/Vol] 264 10*3/uL Normal 150-450 [facility] Comment on above: Performed By: #### B DISPUTE RESOLUTION SPECIALIST, CMP, CBC, MG, CK, HS TROP #### [address] RBC (Bld) [#/Vol] 5.04 10*6/uL Normal 3.90-5.60 [facility] Comment on above: Performed By: #### B DISPUTE RESOLUTION SPECIALIST, CMP, CBC, MG, CK, HS TROP #### [address] WBC (Bld) [#/Vol] 9.8 10*3/uL Normal 4.1-10.5 [facility] Comment on above: Performed By: #### B DISPUTE RESOLUTION SPECIALIST, CMP, CBC, MG, CK, HS TROP #### [address] Comprehensive Metabolic Pane cole 05-15-2024 Albumin [Mass/Vol] 4.8 g/dL Normal 3.5-5.7 [facility] Comment on above: Performed By: #### B DISPUTE RESOLUTION SPECIALIST, CMP, CBC, MG, CK, HS TROP #### [address] Albumin/Globulin [Mass ratio] 1.5 {ratio} Normal [facility] Comment on above: Performed By: #### B DISPUTE RESOLUTION SPECIALIST, CMP, CBC, MG, CK, HS TROP #### [address] ALP [Catalytic activity/Vol] 83 U/L Normal 34-104 [facility] Comment on above: Performed By: #### B DISPUTE RESOLUTION SPECIALIST, CMP, CBC, MG, CK, HS TROP #### [address] ALT [Catalytic activity/Vol] 39 U/L Normal 7-52 [facility] Comment on above: Performed By: #### B DISPUTE RESOLUTION SPECIALIST, CMP, CBC, MG, CK, HS TROP #### [address] Anion gap [Moles/Vol] 20.0 mmol/L High 6.0-15.0 [facility] Comment on above: Performed By: #### B DISPUTE RESOLUTION SPECIALIST, CMP, CBC, MG, CK, HS TROP #### [address] AST [Catalytic activity/Vol] 28 U/L Normal 13-39 [facility] Comment on above: Performed By: #### B DISPUTE RESOLUTION SPECIALIST, CMP, CBC, MG, CK, HS TROP #### [address] Bilirubin [Mass/Vol] 0.5 mg/dL Normal 0.3-1.0 [facility] Comment on above: Performed By: #### B DISPUTE RESOLUTION SPECIALIST, CMP, CBC, MG, CK, HS TROP #### [address] Calcium [Mass/Vol] 11.0 mg/dL High 8.6-10.3 [facility] Comment on above: Performed By: #### B DISPUTE RESOLUTION SPECIALIST, CMP, CBC, MG, CK, HS TROP #### [address] Chloride [Moles/Vol] 102 mmol/L Normal 98-107 [facility] Comment on above: Performed By: #### B DISPUTE RESOLUTION SPECIALIST, CMP, CBC, MG, CK, HS TROP #### [address] CO2 [Moles/Vol] 19.8 mmol/L Low 21.0-31.0 [facility] Comment on above: Performed By: #### B DISPUTE RESOLUTION SPECIALIST, CMP, CBC, MG, CK, HS TROP #### [address] Creatinine [Mass/Vol] 0.93 mg/dL Normal 0.70-1.30 [facility] Comment on above: Performed By: #### B DISPUTE RESOLUTION SPECIALIST, CMP, CBC, MG, CK, HS TROP #### [address] GFR/1.73 sq M.predicted MDRD (S/P/Bld) [Vol rate/Area] mL/min/{1.73_m2} Normal [facility] Comment on above: Performed By: #### B DISPUTE RESOLUTION SPECIALIST, CMP, CBC, MG, CK, HS TROP #### [address] Globulin (S) [Mass/Vol] 3.2 g/dL Normal [facility] Comment on above: Performed By: #### B DISPUTE RESOLUTION SPECIALIST, CMP, CBC, MG, CK, HS TROP #### [address] Glucose [Mass/Vol] 136 mg/dL High 70-100 [facility] Comment on above: Result Comment: [place] Glucose Reference Range is dependent on time and content of last meal. Glucose of more than 200 mg/dL in a nonstressed, ambulatory subject supports the diagnosis of Diabetes Mellitus. ADA recommended reference range Performed By: #### B DISPUTE RESOLUTION SPECIALIST, CMP, CBC, MG, CK, HS TROP #### [address] Potassium [Moles/Vol] 3.8 mmol/L Normal 3.5-5.1 [facility] Comment on above: Result Comment: Hemo lysis is present at a level that could interfere with the result. Contact lab if redraw is required Performed By: #### B DISPUTE RESOLUTION SPECIALIST, CMP, CBC, MG, CK, HS TROP #### [address] Protein [Mass/Vol] 8.0 g/dL Normal 6.4-8.9 [facility] Comment on above: Performed By: #### B DISPUTE RESOLUTION SPECIALIST, CMP, CBC, MG, CK, HS TROP #### [address] Sodium [Moles/Vol] 138 mmol/L Normal 136-145 [facility] Comment on above: Performed By: #### B DISPUTE RESOLUTION SPECIALIST, CMP, CBC, MG, CK, HS TROP #### [place] [id number] [place] Urea nitrogen [Mass/Vol] 10 mg/dL Normal 7-25 [facility] Comment on above: Performed By: #### B DISPUTE RESOLUTION SPECIALIST, CMP, CBC, MG, CK, HS TROP #### [place] [id number] [place] Creatine Kinaseon 05-15-2024 CK [Catalytic activity/Vol] 53 U/L Normal 30-223 [facility] Comment on above: Performed By: #### G LULS #### Point of Care testing , Creatine kinase [Enzymatic a ctivity/volume] in Serum or PlasmaOrdered By: Brian Blanchard on 05-15-2024 CK [Catalytic activity/Vol] Creatine kinase [Enzymatic activity/volume] in Serum or Plasma 30-223 [facility] Creatinine [Mass/volume] in Serum or PlasmaOrdered By: Brian Blanchard on 05-15-2024 Creatinine [Mass/Vol] Creatinine [Mass/v olume] in Serum or Plasma 0.70-1.30 [facility] ECG 12 lead ECGon 05-15-2024 ECG 12 lead ECG [facility] [place] [address] Electrocardiograph Report Signed Patient: Lyly Quinn MR#: [id number] : 1965 Acct:[id number] Age/Sex: 59 / M ADM Date: 05/15/24 Loc: ER Room: Type: [facility] ER Attending Dr: Ordering Provider: [...] Sinus tachycardia Confirmed by Brian BLANCHARD DO ([id number]) on 05/15/2024 6:13:14 PM Referred By: Electronically Signed By: Brian BLANCHARD DO Transcribed By: MUS Signed By Brian Blanchard DO 0 05/15/24 181 Normal [facility] Eosinophils Auto (Bld) [#/Vo l]Ordered By: Brian Blanchard on 05-15-2024 Eosinophils (Bld) [#/Vol] Automated eosinophil count 0.0-0.45 [facility] Eosinophils/100 WBC Auto (Bl d)Ordered By: Brian Blanchard on 05-15-2024 Eosinophils/100 WBC (Bld) Automated eosinophil % . [facility] Erythrocyte distribution wid th Auto (RBC) [Ratio]Ordered By: Brian Blanchard on 05-15-2024 Erythrocyte distribution width (RBC) [Ratio] Erythrocyte distribution width [Ratio] by Automated count 12.0-14.8 [facility] Globulin Calc (S) [Mass/Vol] Ordered By: Brian Blanchard on 05-15-2024 Globulin (S) [Mass/Vol] Serum globulin measurement by calculation (mass/volume) [facility] Glucose [Mass/volume] in Ser um or PlasmaOrdered By: Brian Blanchard on 05-15-2024 Glucose [Mass/Vol] Glucose [Mass/volume ] in Serum or Plasma High 70-100 [facility] Comment on above: ADA recommended refe [...] Blood by Automated count 38.8-50.0 [facility] Hemoglobin [Mass/volume] in BloodOrdered By: Brian Blanchard on 05-15-2024 Hemoglobin (Bld) [Mass/Vol] Hemoglobin [Mass/volume] in Blood 13.0-17.0 [facility] INR in Platelet poor plasma by Coagulation assayOrdered By: Brian Blanchard on 05-15-2024 INR Coag (PPP) [Relative time] INR in Platelet poor plasma by Coagulation assay [facility] Comment on above: INR Therapeutic Rang [...] Blood by Automated coun 4.1-10.5 [facility] Lymphocytes Auto (Bld) [#/Vo l]Ordered By: Brian Blanchard on 05-15-2024 Lymphocytes (Bld) [#/Vol] Lymphocytes [#/volume] in Blood by Automated count 1.00-4.8 [facility] Lymphocytes/100 WBC Auto (Bl d)Ordered By: Brian Blanchard on 05-15-2024 Lymphocytes/100 WBC (Bld) Lymphocytes/100 leukocytes in Blood by Automated count . [facility] MCH Auto (RBC) [Entitic mass ]Ordered By: Brian Blanchard on 05-15-2024 MCH (RBC) [Entitic mass] MCH [Entitic mass] by Automated count 27.5-35.2 [facility] MCHC Auto (RBC) [Mass/Vol]Or dered By: Brian Blanchard on 05-15-2024 MCHC (RBC) [Mass/Vol] MCHC [Mass/volume] by Automated count 32.5-35.6 [facility] MCV Auto (RBC) [Entitic vol] Ordered By: Brian Blanchard on 05-15-2024 MCV (RBC) [Entitic vol] MCV [Entitic volume] by Automated count 83.5-101 [facility] Magnesiumon 05-15-2024 Magnesium [Mass/Vol] 1.5 mg/dL Low 1.9-2.7 [facility] Comment on above: Result Comment: PERF ORMED BY: [facility] [place] [address] [place] [address] PATHOLOGIST TENT ASSEMBLER BRANDON AVITIA M.D. Performed By: #### G ENRICO #### Point of Care testing , Magnesium [Mass/volume] in S fina or PlasmaOrdered By: Brian Blanchard on 05-15-2024 Magnesium [Mass/Vol] Magnesium [Mass/vol ume] in Serum or Plasma Low 1.9-2.7 [facility] Monocyte distribution width [Entitic volume] in Blood by AutomatedOrdered By: Brian Blanchard on 05-15-2024 Monocyte distribution width Auto (Bld) [Entitic vol] Monocyte distribution width [Entitic volume] in Blood by Automated High 0.00-20.00 [facility] Comment on above: For adults in ED, MD W > 20.0 may be associated with a higher risk of sepsis during the first 12 hrs of hospital admission Monocytes Auto (Bld) [#/Vol] Ordered By: Brian Blanchard on 05-15-2024 Monocytes (Bld) [#/Vol] Automated blood monocyte count High 0.0-0.8 [facility] Monocytes/100 WBC Auto (Bld) Ordered By: Brian Blanchard on 05-15-2024 Monocytes/100 WBC (Bld) Automated monocyte % . [facility] Natriuretic peptide B [Mass/ Vol]Ordered By: Brian Blanchard on 05-15-2024 Natriuretic peptide B (Bld) [Mass/Vol] BNP ser/plas 5-100 [facility] Neutrophils Auto (Bld) [#/Vo l]Ordered By: Brian Blanchard on 05-15-2024 Neutrophils (Bld) [#/Vol] Neutrophils [#/volume] in Blood by Automated count 1.8-7.7 [facility] Neutrophils/100 WBC Auto (Bl d)Ordered By: Brian Blanchard on 05-15-2024 Neutrophils/100 WBC (Bld) Automated neutrophil % . [facility] No Panel InformationOrdered By: Brian Blanchard on 05-15-2024 Blood Gas Critical Value See comment [facility] Comment on above: Critical Value vasquez d on: 05/15/2024 at 13:39 Blood Gas Sample Site Venous Fir [facility] FiO2 21 % [facility] Venous Blood Base Excess 0.3 mmol/L -3.0-3.0 [facility] Venous Blood Oxygen Content 1.8 mmol/L Low 6.6-9.7 [facility] Venous Blood Oxygen Saturation 19.6 % Critically low 73.0-76.0 [facility] Venous Blood Partial Pressure CO2 29.8 mm[Hg] Low 38.0-50.0 [facility] Venous Blood Partial Pressure O2 13.5 mm[Hg] Critically low 35.0-45.0 [facility] Venous Blood pH 7.50 High 7.32-7.43 [facility] Estimated GFR (CKD-EPI) > 60.0 mL/Min [facility] Creatinine Clearance (Chem N/A [facility] Nucleated erythrocytes [Pres ence] in Blood by Automated countOrdered By: Brian Blanchard on 05-15-2024 Nucleated RBC Auto Ql (Bld) Nucleated erythrocytes [Presence] in Blood by Automated count 0-0.5 [facility] Partial Thromboplastin Timeo n 05-15-2024 aPTT Coag (Bld) [Time] 35.8 s Normal 25.1-36.5 [facility] Comment on above: Result Comment: A he matocrit value greater than 55% may lead to inaccurate results in coagulation testing. Patients having hematocrit values >55% require a special collection tube for coagulation studies. Please contact the laboratory at [phone] for redraw instructions. PERFORMED BY: [address] [address] PATHOLOGIST TENT ASSEMBLER BRANDON AVITIA M.D. Performed By: #### P TT, PT #### [address] Platelet mean volume Auto (B ld) [Entitic vol]Ordered By: Brian Blanchard on 05-15-2024 Platelet mean volume (Bld) [Entitic vol] Platelet mean volume [Entitic volume] in Blood by Automated count 6.6-10.1 [facility] Platelets Auto (Bld) [#/Vol] Ordered By: Brian Blanchard on 05-15-2024 Platelets (Bld) [#/Vol] Platelets [#/volume] in Blood by Automated count 150-450 [facility] Potassium [Moles/volume] in Serum or PlasmaOrdered By: Brian Blanchard on 05-15-2024 Potassium [Moles/Vol] Potassium [Moles/v olume] in Serum or Plasma 3.5-5.1 [facility] Comment on above: Hemolysis is present at a level that could interfere with the result.Contact lab if redraw is required Protein [Mass/volume] in Ser um or PlasmaOrdered By: Brian Blanchard on 05-15-2024 Protein [Mass/Vol] Protein [Mass/volume ] in Serum or Plasma 6.4-8.9 [facility] Prothrombin Time INRon 05-15 INR Coag (PPP) [Relative time] 1.6 {INR} Normal [facility] Comment on above: Result Comment: [...] Performed By: #### P TT, PT #### [facility] [address] [id number] [facility] PT Coag (PPP) [Time] 18.5 s High 9.0-12.9 [facility] Comment on above: Result Comment: A he matocrit value greater than 55% may lead to inaccurate results in coagulation testing. Patients having hematocrit values >55% require a special collection tube for coagulation studies. Please contact the laboratory at [phone] for redraw instructions. Performed By: #### P TT, PT #### [facility] [address] [place] [address] [facility] Prothrombin time (PT)Ordered By: Brian Blanchard on 05-15-2024 PT Coag (PPP) [Time] Prothrombin time (PT) High 9.0- 12.9 [facility] Comment on above: A hematocrit value g reater than 55% may lead to inaccurate results in coagulation testing. Patients having hematocrit values >55% require a special collection tube for coagulation studies. Please contact the laboratory at [phone] for redraw instructions. RBC Auto (Bld) [#/Vol]Ordere d By: Brian Blanchard on 05-15-2024 RBC (Bld) [#/Vol] Erythrocytes [#/volu me] in Blood by Automated count 3.90-5.60 [facility] Serum or plasma albumin/glob ulin mass ratioOrdered By: Brian Blanchard on 05-15-2024 Albumin/Globulin [Mass ratio] Serum or plasma albumin/globulin mass ratio [facility] Serum or plasma anion gap de terminationOrdered By: Brian Blanchard on 05-15-2024 Anion gap [Moles/Vol] Serum or plasma an ion gap determination High 6.0-15.0 [facility] Sodium [Moles/volume] in Ser um or PlasmaOrdered By: Brian Blanchard on 05-15-2024 Sodium [Moles/Vol] Sodium [Moles/volume ] in Serum or Plasma 136-145 [facility] Troponin I High Sensitivityo n 05-15-2024 Troponin I High Sensitivity 4 Normal 0-20 [facility] Comment on above: Result Comment: The Troponin units of report have been changed to meet the Chest Pain Accreditation requirement, element EC5.M1l2. Troponin units are changed from pg/ml to ng/L. Also, the decimal is removed and results are in whole numbers. PERFORMED BY: [address] [place] [address] PATHOLOGIST TENT ASSEMBLER BRANDON AVITIA M.D. Performed By: #### G LULS #### Point of Care testing , Troponin I High Sensitivity 4 Normal 0-20 [facility] Comment on above: Result Comment: The Troponin units of report have been changed to meet the Chest Pain Accreditation requirement, element EC5.M1l2. Troponin units are changed from pg/ml to ng/L. Also, the decimal is removed and results are in whole numbers. PERFORMED BY: [facility] [place] [address] [facility] [place] [place] [address] PATHOLOGIST TENT ASSEMBLER BRANDON AVITIA M.D. Performed By: #### G LULS #### Point of Care testing , Troponin I.cardiac [Mass/vol ume] in Serum or Plasma by Detection limit <= 0.01 ng/Ordered By: Brian Blanchard on 05-15-2024 Troponin I.cardiac DL <= 0.01 ng/mL [Mass/Vol] Troponin I.cardiac [Mass/volume] in Serum or Plasma by Detection limit <= 0.01 ng/ 0-20 [facility] Comment on above: The Troponin units [...] nitrogen [Mass/volume] in Serum or Plasma 11-10 [facility] Venous Blood GasOrdered By: Brian Blanchard on 05-15-2024 CO2 [Moles/Vol] 23.4 mmol/L Low 24.0-29.0 [facility] Comment on above: Performed By: #### V BG #### Point of Care testing , HCO3 (Bld) [Moles/Vol] 22.5 mmol/L Low 23.0-29.0 [facility] Comment on above: Performed By: #### V BG #### Point of Care testing , Venous Blood Gason Respiratory Critical Normal [facility] Comment on above: Result Comment: Crit ical Value called on: 05/15/2024 at 13:39 PERFORMED BY: [facility] [place] [address] [address] PATHOLOGIST TENT ASSEMBLER BRANDON AVITIA M.D. Performed By: #### V BG #### Point of Care testing , VBG Base Excess 0.3 mmol/L Normal -3.0-3.0 [facility] Comment on above: Performed By: #### V BG #### Point of Care testing , VBG Draw Site Venous Normal [facility] Comment on above: Performed By: #### V BG #### Point of Care testing , VBG Frac Inspired O2 21 % Normal [facility] Comment on above: Performed By: #### V BG #### Point of Care testing , VBG O2 Content 1.8 mmol/L Low 6.6-9.7 [facility] Comment on above: Performed By: #### V BG #### Point of Care testing , VBG Oxygen Saturation 19.6 % Off scale low 73.0-76.0 [facility] Comment on above: Performed By: #### V BG #### Point of Care testing , VBG PCO2 29.8 mm[Hg] Low 38.0-50.0 [facility] Comment on above: Performed By: #### V BG #### Point of Care testing , VBG PH Venous PH 7.50 High 7.32-7.43 [facility] [facility] Comment on above: Performed By: #### V BG #### Point of Care testing , VBG PO2 13.5 mm[Hg] Off scale low 35.0-45.0 [facility] Comment on above: Performed By: #### V BG #### Point of Care testing , WBC Auto (Bld) [#/Vol]Ordere d By: Brian Blanchard on 05-15-2024 WBC (Bld) [#/Vol] Leukocytes [#/volume ] in Blood by Automated count 4.1-10.5 [facility] X-ray reportOrdered By: David Dong on 05-15-2024 Study report [facility] Main [place] [id number] XRay Report Signed Patient: Lyly Quinn MR#: [id number] : 1965 Acct:[id number] Age/Sex: 59 / M ADM Date: 5 Loc: ER Room: Type: [facility] ER Attending Dr: Copies to: Brian [...] Dong Jr., D.OMaranda05/15/2024 1:50 PM Dictation Location: [place] [address] Transcribed By: [facility] 05/15/24 1350 Dictated By: Elvin Dong Jr, DO 05/15/24 1350 Signed By: 05/15/24 1350 [facility] XR chest 2V*on 05-15-2024 XR chest 2V* [place] [id number] XRay Report Signed Patient: Lyly Quinn MR#: [id number] : 1965 Acct:[id number] Age/Sex: 59 / M ADM Date: 05/15/24 Loc: ER Room: Type: [facility] ER Attending Dr: Copies to: Brian [...] Dong Jr., D.OMaranda05/15/2024 1:50 PM Dictation Location: [place] [address] Transcribed By: [facility] 05/15/24 1350 Dictated By: Elvin Dong Jr DO 05/15/24 1350 Signed By: 05/15/24 1350 Normal [facility] aPTT in Platelet poor plasma by Coagulation assayOrdered By: Brian Blanchard on 05-15-2024 aPTT Coag (PPP) [Time] Activated partial thromboplastin time (aPTT) in platelet poor plasma by coagulation a 25.1-36.5 [facility] Comment on above: A hematocrit value g reater than 55% may lead to inaccurate results in coagulation testing. Patients having hematocrit values >55% require a special collection tube for coagulation studies. Please contact the laboratory at [phone] for redraw instructions. Coding Summaryon 05-12-2024 Coding Summary HTMLBase 64 IzwwkrxeAHm0hQb+PGhlYWQ+PE 2WRIUaM90oeIWlbY1uM7WQTKvX RqkqARVYDDyZNvAhftCkRE8wqK NjZXJu IC8+TU5xBMZjBzwdeFSvz6S5tY A9Q49lsf0pYZsqhWU3RJEaUjRf hvfsl6xhnDj0OVjbJhblGdGa IORseG82DHM1xT12Ex38rDWsgX Jfc5rdkKm7EzOyJBMaMAT2mIcp QMkix8GeVUBaN29pjIWct2Q6 LSJawVrqwQRtLbRtpSB3zX7dGF yhyugpp5hpknycHab5ww31mKDs f7U8bNB6V5YmtdC2AEPywOLo BcubvBILuA6yucagj7klhvqaFr OqFRXuGWq4AGu8ZXBqsVgsHdMl HI12CTD2CVVqmqDlD2XhKJXu dUukLoV4f8I9Dk3VD9RGRcpbR3 VNTUFSWTwvdGQ+PD05yz09X4Sy SnhiVsm3URWhLHS5tAN7cJ9m PZGwTUwky6A9qFP9Y3HydiEjlo 4qi3ztNYOhAZzvJ26nwQJes4D4 RKXlfPJ3CJCuxBprZpEqtE23 Oyc+LWVrbLtng8ZsChkni0qpn0 uknKg8VljkZOQeqeUmnEkgIMM1 y0KvIo5pXNZosCP4eUI0xJ3e CnJyPgM6YWwjO859YyButZFnGr cmI45mL9UpaGL+WDCoQke1NCLg kCmfVH3pL7FeJUVmmcmhlPOv zPqqQH2aSLIifhucTHSabH5zSN ChS4x0WsNmPcC1LXlxG8IaUONq nmeqIh26hF6uIpJdSqX9WSer Z3XigkY6CFEveDObXWseDHX8Z4 1bq9R7ITJxFGXjERW2pJN9gJ4o bGlnbjogbGVmdDsgdmVydGlj KBlpIFdzB937CJKaoHjqGdDoWX luZyBEYXRlOiAgMDEvMjQvMjAy NTwvdGQ+PRIuHIG8hNwfHFZi mKTnXGopHh5odBayqRkzDJ0bGM SdrvdgIWMuzT1pOYXloEYsxKeq PW5lNTSgnzsdb335RkKoZJW9 MCByfERaH5FppE7kEnOoNGPeEI AlI8GefSXhMAkvI743FAtgWrW6 GOCdxrRmD0WxAUVujDgtYoS1 p2B6Lo9Az8YuzzhtS7AjbOTfVe LfRxldWHq7W5PeAdhwfUT+PC90 ALXgVI10CXd9NZT8jHqeKTpy TMRlF5YmpI9fAfXnYHRqATRdId c+PHRhYmxlIHdpZHRoPScxMDAl GlBdgRykVC9jOq2pDRSqDTMs qGpddUEdAlLmo6ysESYlSYswEJ 0pjGpxY9MseDF0AKXri2t2Ns65 D64sL7HzhNC+VAKwbJU0eNK0 cL7sOlUxGzK0PEzsS987UaIffU ZsBdjhv4wlk0rcmXg2SqQ9BTZj qzBjaFwmGLK9w2YnNz51X10p IHdpZHRoPSIxNSUiIHZhbGlnbj 0ivF2kMz9+ZCWovNY3hRU1zI0i RdTpRpS4WEtsN901RlEliRIg Rswpa9yog9lzdEl8OuAdKWMtwc VkcPkxNQB8u4SgOg40T0WdcOoy k8RrFaj7lc26mUUzv1X6qTM6 N2GcZEPxrsabdWCbaTlhOP4eNA OzkfpiDSCvvQ6xEEKbB9b0UvUo ZoX6FRszC3UxwzN5SKDdkPXs CKPvlSDVrW7sxazqq0gurfkrQu WuPEXkGSu0JUt2UMZazOwzDlPv MEX1GzM1AJJ5bUOowS4upFiw qapemQ7eDzh+PLW4zIAybPRORD 1lOjwvdGQ+AMPsTAQ4pXnwOIvp MJBcgZ1jHMReS2d7RhVmKwV8 VYenA8AvpkE0FPXydPJwDFGrxV ZNeC4fjiqic7bwlqanIeTvHYLo YCg4SJq8XNDsuYzuDlRxVCM5 FvN4CAX8oIBycL2bwAiyiyhzvU 9wOyc+KurqsZmoVMR9TZk6L1Qt Dhc4AWAicOpxEJ6edERaUCus Nw4qaAhtuJefYL2pKYHzjxbap2 47NbWpc2iwNSTbeRQkUZmuYLL4 G31dp1H3OZAxHDIuVRH8dUI3 tL1rdQztcwkbxGZulWachaWovA knVCduODryP391SVSexWfjGoHa YMh2A7BuFwq8NLTbcRxfLT8e hLZxUIuwRp7trWjpxHqrVN7iCR Lnaeaob720DuXcn9baLREnxXGy KLclTGY8Y03zm1B3QRKqVDXp DBC6pTH0nS0blYvqltzicWSjrG zvpvZlaTzsBUiuCJrbW623RRMf jDrtUiAcxYy9J7HyUlu8VBGn wTwuGJ5ajICuEZobZn7teSitrK deXM8eDLWyxnjbg896AmYxo5jk SKRhaKVwNVjtCRK0K36tq3M7 ELQvMQDvROD8pTO0xV7giLznzp ogbGVmdDsgdmVydGljYWwtYWxp R465TKPyzCccUpHgmToxapAj YUukYLy0J5PkMfuumGN+PC90YW MaDL60lOJhhYRye5hrfUj7OtLh GZDuAPF9uMfgKXgfx0XrERWf V39ysJQwe7S6AUToyJuccTVcXs IjdOC7dG9bOKbgrmsdr1gyvswy Jxojw7zzmn26bA52F96oHAjh WVLnPNKdBIFuYWBncJnsob5szL 9wIi8+ZAFxfFT4lTS4sB9gRPWe OaJ7CZfqM396BhPmlELcOwsa c1hhp4nstFd7CiP5UDFzlmIirP znYTH2e8ZoRa23N34vUFlpTWFt JBMmVXGqSUKfxAwtyq8gtU8g Ii8+ZFZhpWF6kCQ4eH2gQtOpWy F5HAzaO658ZfYkgZFgHpgxJ02j I3GihRU+ULCuJzo5BWOqbDft NO2diFUfOFqvNr1xSOG3TmRtXz MnJJkdX2SuESCtorgphhyqgPF6 YXNuJCFuaV90Sp9kzEuwEIQa rLOAyY5dewwhz3fkelxnOmZhSW HxBQo1CZc3WGRflPtvVgSmRTT4 ZuU6TIK9uNDpfC4kzLvibxke gV4jM2MbEMNjthmdQb90bP1pIw GwXwU4MQyvUyw+QenQX8ZeSRDF HI6pP3oGBLaKAUztlWT+PHRk CGW6iXzjWXrbOFFibA9vXNUxQ8 a4UzHfLcH5SAgeC6UjHWZcaeut Zb38bT8kMbHqOuV1KAvmK2Ja deP4LAEgpSPyIPsqPPC6A05cn9 C3KHNuZRLuCMW9iDO8aD9ktGmk bjogbGVmdDsgdmVydGljYWwt GCsfR666VNDyaLqyZnMfHeJ4Cv Y5OaM7Z4QyAam4MCQxnGvcII8c eZRmCPurIf3xxBysuGhhED6q ODWglruqCHWtaF4kNFMqlFGwqU wsXM6yWZXemawot329GtNzYEW4 LVMrdMJmQ7ZehE8iLaVlTSLe PHYmB4NxhXIhNCxcP574CScbZm X4AUDxvyWgO5EoUVCanLpeTnJ3 u9X2Aq52ERRQSNWdareixPX+ JRNdIOX1sRsiGBsiONDzpV8hQP NtA2d2VfTnIqZ8STyoG5HkGSXp akfcBz91qJ9jVuFnOkP2ANmw V0PjqgM9CZNwfLBkRZvkZHV6C2 0yc9W6JMKgKBFoUWM0tFN3zX7x bGlnbjogbGVmdDsgdmVydGlj ZOdxIHnsA299JPIjkQyzCv6NSU W6T1HcFxr3IKRvzHqvDU7mmPCf KGwwTk2uhXfggJpnZZ7cSJPc huvcZUJvsV0cHNToiJHxpKfeZB 4gWIYconqry222KfKrWNB3KBJc rEStE6PxcI7zEfBnCIErEVIs N8MsxHFvAGhsY537FMfpEkG5CX YwatCmB0MbJBXpkUaePvC3d1K0 Bw8HXFpqkMV+MU16cp36U0He OhdkYig3WYNvYRW9vCV6hF6qWP NmYInlk6M5jYY5W5DllvHuay7u d6pwGROhTNicJ79fxRHpn9L5 AYHczPN4KPSfkJuoArFmrW47Rs c+EGZkhYpex8FcVqwye3zqo1jf kFc3WvCgPKXiufNsoTgbUMV6 s9YoIu90X27uMTscVZWmQDUrBE PjINHspUtvft2vfY3hZy0+PGNv qGI2jMI9dG2oXaAyYfM9CZng W862CuNroUAlKtwey1anl7yydH t8ZfByYTVnyzHosDmeWMW9t2Hr On11F4QzwJmeu8MnXdq7ju46 hCQiu5Q4oUL9X5LsYKFzqnnlyZ VhzUrdLN5xPIEqkeghEIWttF4b IKFmQ0x7NnUcGaW0EAsoP1Ic fuV2GSBwxQEhVBZtgIHTiE9mpp giz1pmrrcdAqNiOUQuQZx8ZGb0 JTYkyYxqEiLvHNK1IsV5IZR6 xVLjxS9xlWqtyrburH7wOod+UG q6u0lciCKiYU8bfPK3OQ65AI21 uGRxc5Q1nZT1P5OlKCFgjely xxkrhPD7TFGyJDGvkV34Fa5pdQ saJz0xGUFaOME0ITOvkFYqQ2Og oO1qKgZlOPQyJMBqH8GrhUZi OIwfI756WUvsPpC8QQQrhnOeF3 SbQQVqfAgcLxW2b5G0Wt0NEG96 ZV24IZ13pKOjj0X9xLM4Z0Tw UUYhriegsgmviSZ6BRCcBDThgF 09Tg4okVopEr1uTKPqTZR2UYRy qODjP9XntZ2oIyVkNZZmKVAx M4JjmCZzCNqzL639ZIdvIpG7NI UjdoGhY7DjNNBazWiiUrN4g7Q1 Rw0GKf86IF83FW24gHMfx3Z2 bTB8V6GrXTSeyiaontcuoAU0WS CaLTUhzH56Gh7bvVsnNf9sQMHj QUV3MUYemLThE1LirJ0wKdKk INTlNIOwS3WqtPXbAJmqW623FT xhVoF8ZIYgplNlL7OfAVVxgSby TgT3f9U8Dt6CXCxbghz4A5Pq PjwvdHI+YT91PDHtMK10gCLpjV Xzt6xteJd1YjGrAUUiNYQ9rUra OThja2SvHONiJ10yeHKfj6V0 IGN (more content not included)... [facility] Consent Formson 05-12-2024 Consent Forms [id number] [facility] BUN/Creat Ratioon 05-10-2024 eGFR Non AA >60 Invalid Interpretation Code [facility] Comment on above: Performed By: #### 1 [id number] ####[facility] (DEFAULT)[address] [place] [address] eGFR AA >60 Invalid Interpretation Code [facility] Comment on above: Performed By: #### 1 [id number] ####[facility] (DEFAULT)[address] [place] [address]46 Creatinine [Mass/Vol] 0.81 mg/dL Low 0.90-1.30 [facility] Comment on above: Performed By: #### 1 [id number] ####[facility] (DEFAULT)[address] [place] [address]326 Urea nitrogen [Mass/Vol] 10 mg/dL Normal 8-26 [facility] Comment on above: Performed By: #### 1 [id number] ####[facility] (DEFAULT)[address] [place] [address] 65184 Urea nitrogen/Creatinine [Mass ratio] 12.3 mg/mg Normal 4.6-16.2 [facility] Comment on above: Performed By: #### 1 [id number] ####[facility] (DEFAULT)[address] [place] [address] PE Chest w/ Contraston CT PE [...] MD 05/10/24 4:36 pm Technologist: LT PATRICK [facility] Rad - Other Radiology Report on 05-10-2024 Rad - Other Radiology Report [id number] F [facility] Reminder Messageson 05-10-19 Reminder Messages - From: Kimi Weiss DO To: [facility] ([facility]); Sent: 05/10/2024 16:45:39 EST Show up: 05/10/2024 16:46:00 EST Subject: Results Follow Up Due Date/Time: 05/11/2024 16:45:00 EST normal I will speak to Lyly Results: Date Result Type Result Name 05/10/2024 16:[address] PE Chest w/ Contrast [facility] Reminder Messages - From: Kimi Weiss DO To: [facility] [employer] [place] ([facility]); Sent: 05/10/2024 16:17:16 EST Show up: [...] 05/10/2024 15:36 eGFR Non AA >60 mL/min/1.73m2 [facility] Stress Teston 04-18-2024 Stress Test [id number] Outside [facility]son 04-17-2024 Outside Records [id number][facility] Re porton 04-17-2024 Rad - Catheterization Lab Report [id number] Basophils Auto (Bld) [#/Vol] Ordered By: Jacinot Livingston on 04-13-2024 Basophils (Bld) [#/Vol] Automated basophil count 0.0-0.2 [facility] Basophils/100 WBC Auto (Bld) Ordered By: Jacinto Livingston on 04-13-2024 Basophils/100 WBC (Bld) Automated basophil % . [facility] Blood Urea Nitrogenon 2023 Urea nitrogen [Mass/Vol] 13 mg/dL Normal 7-25 [facility] Comment on above: Performed By: #### G LULS #### Point of Care testing , Carbon dioxide, total [Moles /volume] in Serum or PlasmaOrdered By: Jacinto Livingston on 04-13-2024 CO2 [Moles/Vol] Carbon dioxide, tota l [Moles/volume] in Serum or Plasma 21.0-31.0 [facility] Chloride [Moles/volume] in S fina or PlasmaOrdered By: Jacitno Livingston on 04-13-2024 Chloride [Moles/Vol] Chloride [Moles/vol ume] in Serum or Plasma 98-107 [facility] Coagulation Profileon 2023 aPTT Coag (Bld) [Time] 27.1 s Normal 25.1-36.5 [facility] Comment on above: Result Comment: A he matocrit value greater than 55% may lead to inaccurate results in coagulation testing. Patients having hematocrit values >55% require a special collection tube for coagulation studies. Please contact the laboratory at [phone] for redraw instructions. PERFORMED BY: [facility] [place] [address] PATHOLOGIST [employer] BRANDON AVITIA M.D. Performed By: #### G LULS #### Point of Care testing , INR Coag (PPP) [Relative time] 1.0 {INR} Normal [facility] Comment on above: Result Comment: [...] (PPP) [Time] 11.2 s Normal 9.0-12.9 [facility] Comment on above: Result Comment: A he matocrit value greater than 55% may lead to inaccurate results in coagulation testing. Patients having hematocrit values >55% require a special collection tube for coagulation studies. Please contact the laboratory at [phone] for redraw instructions. Performed By: #### G LULS #### Point of Care testing , Complete Blood Count Auto Di ffon 04-13-2024 Basophils (Bld) [#/Vol] 0.0 10*3/uL Normal 0.0-0.2 [facility] Comment on above: Result Comment: PERF ORMED BY: [facility] [place] [address] PATHOLOGIST [employer] BRANDON AVITIA M.D. Performed By: #### G LULS #### Point of Care testing , Basophils/100 WBC (Bld) 0.6 % Normal . [facility] Comment on above: Performed By: #### G LULS #### Point of Care testing , Eosinophils (Bld) [#/Vol] 0.1 10*3/uL Normal 0.0-0.45 [facility] Comment on above: Performed By: #### G LULS #### Point of Care testing , Eosinophils/100 WBC (Bld) 1.9 % Normal . [facility] Comment on above: Performed By: #### G LULS #### Point of Care testing , Erythrocyte distribution width (RBC) [Ratio] 13.0 % Normal 12.0-14.8 [facility] Comment on above: Performed By: #### G LULS #### Point of Care testing , Hematocrit (Bld) [Volume fraction] 40.6 % Normal 38.8-50.0 [facility] Comment on above: Performed By: #### G LULS #### Point of Care testing , Hemoglobin (Bld) [Mass/Vol] 13.8 g/dL Normal 13.0-17.0 [facility] Comment on above: Performed By: #### G LULS #### Point of Care testing , Lymphocytes (Bld) [#/Vol] 2.5 10*3/uL Normal 1.00-4.8 [facility] Comment on above: Performed By: #### G LULS #### Point of Care testing , Lymphocytes/100 WBC (Bld) 37.3 % Normal . [facility] Comment on above: Performed By: #### G LULS #### Point of Care testing , MCH (RBC) [Entitic mass] 30.9 pg Normal 27.5-35.2 [facility] Comment on above: Performed By: #### G LULS #### Point of Care testing , MCV (RBC) [Entitic vol] 90.6 fL Normal 83.5-101 [facility] Comment on above: Performed By: #### G LULS #### Point of Care testing , Mean Corpuscular HGB Conc 34.1 g/dL Normal 32.5-35.6 [facility] Comment on above: Performed By: #### G LULS #### Point of Care testing , Monocytes (Bld) [#/Vol] 0.5 10*3/uL Normal 0.0-0.8 [facility] Comment on above: Performed By: #### G LULS #### Point of Care testing , Monocytes/100 WBC (Bld) 8.1 % Normal . [facility] Comment on above: Performed By: #### G LULS #### Point of Care testing , Neutrophils (Bld) [#/Vol] 3.5 10*3/uL Normal 1.8-7.7 [facility] Comment on above: Performed By: #### G LULS #### Point of Care testing , Neutrophils/100 WBC (Bld) 52.1 % Normal . [facility] Comment on above: Performed By: #### G LULS #### Point of Care testing , NRBC% 0.3 /100{WBC} Normal 0-0.5 [facility] Comment on above: Performed By: #### G LULS #### Point of Care testing , Platelet mean volume (Bld) [Entitic vol] 7.6 fL Normal 6.6-10.1 [facility] Comment on above: Performed By: #### G LULS #### Point of Care testing , Platelets (Bld) [#/Vol] 229 10*3/uL Normal 150-450 [facility] Comment on above: Performed By: #### G LULS #### Point of Care testing , RBC (Bld) [#/Vol] 4.48 10*6/uL Normal 3.90-5.60 [facility] Comment on above: Performed By: #### G LULS #### Point of Care testing , WBC (Bld) [#/Vol] 6.7 10*3/uL Normal 4.1-10.5 [facility] Comment on above: Performed By: #### G LULS #### Point of Care testing , Consultation/Specialist Note on 04-13-2024 Consultation/Specialis t Note [id number] Normal [facility] Creatinineon 04-13-2024 Creatinine [Mass/Vol] 0.80 mg/dL Normal 0.70-1.30 [facility] Comment on above: Performed By: #### G LULS #### Point of Care testing , Creatinine Clr Calc Pharmacy 134.56 Normal [facility] Comment on above: Result Comment: PERF ORMED BY: [facility] [place] [address] [place] [address] PATHOLOGIST [employer] BRANDON AVITIA M.D. Performed By: #### G LULS #### Point of Care testing , GFR/1.73 sq M.predicted MDRD (S/P/Bld) [Vol rate/Area] mL/min/{1.73_m2} Normal [facility] Comment on above: Performed By: #### G LULS #### Point of Care testing , Creatinine [Mass/volume] in Serum or PlasmaOrdered By: Jacinto Livingston on 04-13-2024 Creatinine [Mass/Vol] Creatinine [Mass/v olume] in Serum or Plasma 0.70-1.30 [facility] Electrolyteson 04-13-2024 Anion gap [Moles/Vol] 11.2 mmol/L Normal 6.0-15.0 [facility] Comment on above: Performed By: #### G LULS #### Point of Care testing , Chloride [Moles/Vol] 104 mmol/L Normal 98-107 [facility] Comment on above: Performed By: #### G LULS #### Point of Care testing , CO2 [Moles/Vol] 25.2 mmol/L Normal 21.0-31.0 [facility] Comment on above: Performed By: #### G LULS #### Point of Care testing , Potassium [Moles/Vol] 4.4 mmol/L Normal 3.5-5.1 [facility] Comment on above: Result Comment: Hemo lysis is present at a level that could interfere with the result. Contact lab if redraw is required Performed By: #### G LULS #### Point of Care testing , Sodium [Moles/Vol] 136 mmol/L Normal 136-145 [facility] Comment on above: Performed By: #### G LULS #### Point of Care testing , Eosinophils Auto (Bld) [#/Vo l]Ordered By: Jacinto Livingston on 04-13-2024 Eosinophils (Bld) [#/Vol] Automated eosinophil count 0.0-0.45 [facility] Eosinophils/100 WBC Auto (Bl d)Ordered By: Jacinto Livingston on 04-13-2024 Eosinophils/100 WBC (Bld) Automated eosinophil % . [facility] Erythrocyte distribution wid th Auto (RBC) [Ratio]Ordered By: Jacinto Livingston on 04-13-2024 Erythrocyte distribution width (RBC) [Ratio] Erythrocyte distribution width [Ratio] by Automated count 12.0-14.8 [facility] Glucose Glucometer (BldC) [M ass/Vol]Ordered By: Leslie Sanchez on 04-13-2024 Glucose [Mass/Vol] Capillary blood gluc ose measurement by glucometer (mass/volume) [facility] Comment on above: Random Glucose Refer ence Range is dependent on time and content of last meal. Glucose of more than 200 mg/dL in a nonstressed, ambulatory subject supports the diagnosis of Diabetes Mellitus. Glucose Poct Glucometerson 1 06-14-2023 Glucose [Mass/Vol] 191 mg/dL Normal [facility] Comment on above: Result Comment: [place] om Glucose Reference Range is dependent on time and content of last meal. Glucose of more than 200 mg/dL in a nonstressed, ambulatory subject supports the diagnosis of Diabetes Mellitus. PERFORMED BY: [facility] [place] [address] [place] [address] PATHOLOGIST [employer] BRANDON AVITIA M.D. Performed By: #### G ENRICO #### Point of Care testing , Hematocrit Auto (Bld) [Volum e fraction]Ordered By: Jacinto Livingston on 04-13-2024 Hematocrit (Bld) [Volume fraction] Hematocrit [Volume Fraction] of Blood by Automated count 38.8-50.0 [facility] Hemoglobin [Mass/volume] in BloodOrdered By: Jacinto Livingston on 04-13-2024 Hemoglobin (Bld) [Mass/Vol] Hemoglobin [Mass/volume] in Blood 13.0-17.0 [facility] INR in Platelet poor plasma by Coagulation assayOrdered By: Jacinto Livingston on 04-13-2024 INR Coag (PPP) [Relative time] INR in Platelet poor plasma by Coagulation assay [facility] Comment on above: INR Therapeutic Rang [...] Blood by Automated coun 4.1-10.5 [facility] Lymphocytes Auto (Bld) [#/Vo l]Ordered By: Jacinto Livingston on 04-13-2024 Lymphocytes (Bld) [#/Vol] Lymphocytes [#/volume] in Blood by Automated count 1.00-4.8 [facility] Lymphocytes/100 WBC Auto (Bl d)Ordered By: Jacinto Livingston on 04-13-2024 Lymphocytes/100 WBC (Bld) Lymphocytes/100 leukocytes in Blood by Automated count . [facility] MCH Auto (RBC) [Entitic mass ]Ordered By: Jacinto Livingston on 04-13-2024 MCH (RBC) [Entitic mass] MCH [Entitic mass] by Automated count 27.5-35.2 [facility] MCHC Auto (RBC) [Mass/Vol]Or dered By: Jacinto Livingston on 04-13-2024 MCHC (RBC) [Mass/Vol] MCHC [Mass/volume] by Automated count 32.5-35.6 [facility] MCV Auto (RBC) [Entitic vol] Ordered By: Jacinto Livingston on 04-13-2024 MCV (RBC) [Entitic vol] MCV [Entitic volume] by Automated count 83.5-101 [facility] Monocytes Auto (Bld) [#/Vol] Ordered By: Jacinto Livingsotn on 04-13-2024 Monocytes (Bld) [#/Vol] Automated blood monocyte count 0.0-0.8 [facility] Monocytes/100 WBC Auto (Bld) Ordered By: Jacinto Livingston on 04-13-2024 Monocytes/100 WBC (Bld) Automated monocyte % . [facility] Neutrophils Auto (Bld) [#/Vo l]Ordered By: Jacinto Livingston on 04-13-2024 Neutrophils (Bld) [#/Vol] Neutrophils [#/volume] in Blood by Automated count 1.8-7.7 [facility] Neutrophils/100 WBC Auto (Bl d)Ordered By: Jacinto Livingston on 04-13-2024 Neutrophils/100 WBC (Bld) Automated neutrophil % . [facility] No Panel InformationOrdered By: Jacinto Livingston on 04-13-2024 Estimated GFR (CKD-EPI) > 60.0 mL/Min [facility] Creatinine Clearance (Chem 134.56 [facility] Nucleated erythrocytes [Pres ence] in Blood by Automated countOrdered By: Jacinto Livingston on 04-13-2024 Nucleated RBC Auto Ql (Bld) Nucleated erythrocytes [Presence] in Blood by Automated count 0-0.5 [facility] Platelet mean volume Auto (B ld) [Entitic vol]Ordered By: Jacinto Livingston on 04-13-2024 Platelet mean volume (Bld) [Entitic vol] Platelet mean volume [Entitic volume] in Blood by Automated count 6.6-10.1 [facility] Platelets Auto (Bld) [#/Vol] Ordered By: Jacinto Livingston on 04-13-2024 Platelets (Bld) [#/Vol] Platelets [#/volume] in Blood by Automated count 150-450 [facility] Potassium [Moles/volume] in Serum or PlasmaOrdered By: Jacinto Livingston on 04-13-2024 Potassium [Moles/Vol] Potassium [Moles/v olume] in Serum or Plasma 3.5-5.1 [facility] Comment on above: Hemolysis is present at a level that could interfere with the result.Contact lab if redraw is required Prothrombin time (PT)Ordered By: Jacinto Livingston on 04-13-2024 PT Coag (PPP) [Time] Prothrombin time (PT) 9.0- 12.9 [facility] Comment on above: A hematocrit value g reater than 55% may lead to inaccurate results in coagulation testing. Patients having hematocrit values >55% require a special collection tube for coagulation studies. Please contact the laboratory at [phone] for redraw instructions. RBC Auto (Bld) [#/Vol]Ordere d By: Jacinto Livingston on 04-13-2024 RBC (Bld) [#/Vol] Erythrocytes [#/volu me] in Blood by Automated count 3.90-5.60 [facility] Serum or plasma anion gap de terminationOrdered By: Jacinto Livingston on 04-13-2024 Anion gap [Moles/Vol] Serum or plasma an ion gap determination 6.0-15.0 [facility] Sodium [Moles/volume] in Ser um or PlasmaOrdered By: Jacinto Livingston on 04-13-2024 Sodium [Moles/Vol] Sodium [Moles/volume ] in Serum or Plasma 136-145 [facility] Urea nitrogen [Mass/volume] in Serum or PlasmaOrdered By: Jacinto Livingston on 04-13-2024 Urea nitrogen [Mass/Vol] Urea nitrogen [Mass/volume] in Serum or Plasma 7-25 [facility] WBC Auto (Bld) [#/Vol]Ordere d By: Jacinto Livingston on 04-13-2024 WBC (Bld) [#/Vol] Leukocytes [#/volume ] in Blood by Automated count 4.1-10.5 [facility] aPTT in Platelet poor plasma by Coagulation assayOrdered By: Jacinto Livingston on 04-13-2024 aPTT Coag (PPP) [Time] Activated partial thromboplastin time (aPTT) in platelet poor plasma by coagulation a 25.1-36.5 [facility] Comment on above: A hematocrit value g reater than 55% may lead to inaccurate results in coagulation testing. Patients having hematocrit values >55% require a special collection tube for coagulation studies. Please contact the laboratory at [phone] for redraw instructions. COVID-19 Antigenon 4 COVID-19 [...] developed and its performance characteristic determined by [employer] and validated at [facility]. This test has not been FDA [...] for SARS Antigen by ROLANDO PERFORMED BY: [place] [phone] PATHOLOGIST TENT ASSEMBLER BRANDON AVITIA M.D. Normal [facility] Comment on above: Performed By: #### H S TROP #### [address] Glucose Poct Glucometerson 1 06-13-2023 Glucose [Mass/Vol] 223 mg/dL Normal [facility] Comment on above: Result Comment: [facility] Glucose Reference Range is dependent on time and content of last meal. Glucose of more than 200 mg/dL in a nonstressed, ambulatory subject supports the diagnosis of Diabetes Mellitus. PERFORMED BY: [place] [address] PATHOLOGIST TENT ASSEMBLER BRANDON AVITIA M.D. Performed By: #### G LULS #### Point of Care testing , Glucose [Mass/Vol] 121 mg/dL Normal [facility] Comment on above: Result Comment: [facility] Glucose Reference Range is dependent on time and content of last meal. Glucose of more than 200 mg/dL in a nonstressed, ambulatory subject supports the diagnosis of Diabetes Mellitus. PERFORMED BY: [place] [address] PATHOLOGIST TENT ASSEMBLER BRANDON AVITIA M.D. Performed By: #### H S TROP #### [address] Glucose [Mass/Vol] 148 mg/dL Normal [facility] Comment on above: Result Comment: [facility] Glucose Reference Range is dependent on time and content of last meal. Glucose of more than 200 mg/dL in a nonstressed, ambulatory subject supports the diagnosis of Diabetes Mellitus. PERFORMED BY: [place] [address] PATHOLOGIST TENT ASSEMBLER BRANDON AVITIA M.D. Performed By: #### G LULS #### Point of Care testing , Glucose [Mass/Vol] 178 mg/dL Normal [facility] Comment on above: Result Comment: [facility] Glucose Reference Range is dependent on time and content of last meal. Glucose of more than 200 mg/dL in a nonstressed, ambulatory subject supports the diagnosis of Diabetes Mellitus. PERFORMED BY: [facility] [place] [address] [place] [address] PATHOLOGIST TENT ASSEMBLER BRANDON AVITIA M.D. Performed By: #### G LULS #### Point of Care testing , No Panel InformationOrdered By: Jacinto Livingston on 04-12-2024 SARS Antigen (LFIA) [facility] SARS-CoV+SARS-CoV-2 (COVID-1 9) Ag [Presence] in Respiratory specimen by Rapid immunoaOrdered By: Jacinto Livingston on 04-12-2024 SARS-CoV+SARS-CoV-2 (COVID-19) Ag IA.rapid Ql (Resp) COVID-19 EMMA Negative [facility] Comment on above: This is a duplicate Emma SARS Antigen (ROLANDO) result to be used for statistical tracking purpose only. Emma Ag Negativeon 04-12-20 Emma Ag Negative Negative Normal Negative [facility] Comment on above: Result Comment: This is a duplicate Emma SARS Antigen (ROLANDO) result to be used for statistical tracking purpose only. PERFORMED BY: [place] [address] PATHOLOGIST TENT ASSEMBLER BRANDON AVITIA M.D. Performed By: #### H S TROP #### [address] A1C with Estimated Average G clintn 04-11-2024 Glucose [Mass/Vol] 229 mg/dL Normal [facility] Comment on above: Result Comment: PERF ORMED BY: [facility] [place] [address] [place] [address] PATHOLOGIST T[employer] ASSEMBLER BRANDON AVITIA M.D. Performed By: #### G LULS #### Point of Care testing , HbA1c (Bld) [Mass fraction] 9.6 % High 4.3-5.6 [facility] Comment on above: Result Comment: Incr eased risk for diabetes: 5.7 - 6.4 diabetes: >6.4 glycemic control for adults with diabetes: <7.0 Performed By: #### G LULS #### Point of Care testing , Alanine aminotransferase [En zymatic activity/volume] in Serum or PlasmaOrdered By: Leslie Sanchez on 04-11-2024 ALT [Catalytic activity/Vol] Alanine aminotransferase [Enzymatic activity/volume] in Serum or Plasma 7 [facility] Albumin [Mass/volume] in Ser um or Plasma by Bromocresol green (BCG) dye binding methoOrdered By: Leslie Jonesr on 04-11-2024 Albumin BCG dye [Mass/Vol] Albumin [Mass/volume] in Serum or Plasma by Bromocresol green (BCG) dye binding metho 3.5-5.7 [facility] Alkaline phosphatase [Enzyma tic activity/volume] in Serum or PlasmaOrdered By: Leslie Jonesr on 04-11-2024 ALP [Catalytic activity/Vol] Alkaline phosphatase [Enzymatic activity/volume] in Serum or Plasma 34-104 [facility] Aspartate aminotransferase [ Enzymatic activity/volume] in Serum or PlasmaOrdered By: Leslie Jonesr on 04-11-2024 AST [Catalytic activity/Vol] Aspartate aminotransferase [Enzymatic activity/volume] in Serum or Plasma 13-39 [facility] Bilirubin.total [Mass/volume ] in Serum or PlasmaOrdered By: Leslie Sanchez on 04-11-2024 Bilirubin [Mass/Vol] Bilirubin.total [Mass/volume] in Serum or Plasma 0.3-1.0 [facility] Blood estimated average gluc ose determination by estimation from glycated hemoglobinOrdered By: Leslie Sanchez on 04-11-2024 Average glucose Estimated from glycated hemoglobin (Bld) [Mass/Vol] Glucose mean value [Mass/volume] in Blood Estimated from glycated hemoglobin [facility] Calcium [Mass/volume] in Ser um or PlasmaOrdered By: Leslie Sanchez on 04-11-2024 Calcium [Mass/Vol] Calcium [Mass/volume ] in Serum or Plasma 8.6-10.3 [facility] Cholesterol [Mass/volume] in Serum or PlasmaOrdered By: Leslie Sanchez on 04-11-2024 Cholesterol [Mass/Vol] Cholesterol [Mass /volume] in Serum or Plasma 140-200 [facility] Comment on above: Chol less than 200 m g/dl low riskChol 201-239 mg/dl borderline riskChol 240 mg/dl and greater high risk Cholesterol in HDL [Mass/vol ume] in Serum or PlasmaOrdered By: Leslie Sanchez on 04-11-2024 Cholesterol in HDL [Mass/Vol] Serum or plasma high density lipoprotein (HDL) cholesterol measurement 23-92 [facility] Comment on above: HDL CHOL ATP-III CLA SSIFICATION Cardiovascular RiskHDL > or equal to 60 mg/dL LOWHDL < 40 mg/dL HIGH Cholesterol in LDL Calc [Mas s/Vol]Ordered By: Leslie Sanchez on 04-11-2024 Cholesterol in LDL [Mass/Vol] Cholesterol in LDL [Mass/volume] in Serum or Plasma by calculation 0-100 [facility] Comment on above: LDL ATP III CLASSIFI CATIONLDL less than 100 mg/dL OptimalLDL 100-129 mg/dL Near or above optimalLDL 130-159 mg/dL Borderline highLDL 160-189 mg/dL HighLDL greater than 189 mg/dL Very high Cholesterol in VLDL Calc [Ma ss/Vol]Ordered By: Leslie Sanchez on 04-11-2024 Cholesterol in VLDL [Mass/Vol] Cholesterol in VLDL [Mass/volume] in Serum or Plasma by calculation [facility] Comprehensive Metabolic Pane cole 04-11-2024 Albumin [Mass/Vol] 3.7 g/dL Normal 3.5-5.7 [facility] Comment on above: Performed By: #### G FIONALS #### Point of Care testing , Albumin/Globulin [Mass ratio] 1.2 {ratio} Normal [facility] Comment on above: Performed By: #### G LULS #### Point of Care testing , ALP [Catalytic activity/Vol] 85 U/L Normal 34-104 [facility] Comment on above: Performed By: #### G LULS #### Point of Care testing , ALT [Catalytic activity/Vol] 42 U/L Normal 7-52 [facility] Comment on above: Performed By: #### G FIONALS #### Point of Care testing , Anion gap [Moles/Vol] 9.7 mmol/L Normal 6.0-15.0 [facility] Comment on above: Performed By: #### G LULS #### Point of Care testing , AST [Catalytic activity/Vol] 28 U/L Normal 13-39 [facility] Comment on above: Performed By: #### G LULS #### Point of Care testing , Bilirubin [Mass/Vol] 0.6 mg/dL Normal 0.3-1.0 [facility] Comment on above: Performed By: #### G LULS #### Point of Care testing , Calcium [Mass/Vol] 9.0 mg/dL Normal 8.6-10.3 [facility] Comment on above: Performed By: #### G LULS #### Point of Care testing , Chloride [Moles/Vol] 106 mmol/L Normal 98-107 [facility] Comment on above: Performed By: #### G LULS #### Point of Care testing , CO2 [Moles/Vol] 24.6 mmol/L Normal 21.0-31.0 [facility] Comment on above: Performed By: #### G LULS #### Point of Care testing , Creatinine [Mass/Vol] 1.03 mg/dL Normal 0.70-1.30 [facility] Comment on above: Performed By: #### G LULS #### Point of Care testing , Creatinine Clr Calc Pharmacy 104.51 Normal [facility] Comment on above: Performed By: #### G LULS #### Point of Care testing , GFR/1.73 sq M.predicted MDRD (S/P/Bld) [Vol rate/Area] mL/min/{1.73_m2} Normal [facility] Comment on above: Performed By: #### G LULS #### Point of Care testing , Globulin (S) [Mass/Vol] 3.0 g/dL Normal [facility] Comment on above: Performed By: #### G LULS #### Point of Care testing , Glucose [Mass/Vol] 160 mg/dL High 70-100 [facility] Comment on above: Result Comment: [facility] Glucose Reference Range is dependent on time and content of last meal. Glucose of more than 200 mg/dL in a nonstressed, ambulatory subject supports the diagnosis of Diabetes Mellitus. ADA recommended reference range Performed By: #### G LULS #### Point of Care testing , Potassium [Moles/Vol] 4.3 mmol/L Normal 3.5-5.1 [facility] Comment on above: Performed By: #### G LULS #### Point of Care testing , Protein [Mass/Vol] 6.7 g/dL Normal 6.4-8.9 [facility] Comment on above: Performed By: #### G LULS #### Point of Care testing , Sodium [Moles/Vol] 136 mmol/L Normal 136-145 [facility] Comment on above: Performed By: #### G LULS #### Point of Care testing , Urea nitrogen [Mass/Vol] 12 mg/dL Normal 7-25 [facility] Comment on above: Performed By: #### G LULS #### Point of Care testing , ECG 12 lead ECG 04-11-2024 ECG 12 lead ECG [facility] [place] [address] [place] [id number] Electrocardiograph Report Signed Patient: Lyly Quinn MR#: [id number] : 1965 Acct:[id number] Age/Sex: 59 / M ADM Date: 04/10/24 Loc: Room: [address] [place] [address] Type: ADM INOo Attending Dr: Leslie Sanchez [...] change was found Confirmed by [id number] on 04/13/2024 11:13:08 AM Referred By: Electronically Signed By: FAY DALE MD [facility] Transcribed By: MUS Signed By Fay Dale MD, [facility] 04/13/24 1113 Normal [facility] Globulin Calc (S) [Mass/Vol] Ordered By: Leslie Sanchez on 04-11-2024 Globulin (S) [Mass/Vol] Serum globulin measurement by calculation (mass/volume) [facility] Glucose Poct Glucometerson 1 06-12-2023 Glucose [Mass/Vol] 178 mg/dL Normal [facility] Comment on above: Result Comment: [facility] Glucose Reference Range is dependent on time and content of last meal. Glucose of more than 200 mg/dL in a nonstressed, ambulatory subject supports the diagnosis of Diabetes Mellitus. PERFORMED BY: [place] [id number] PATHOLOGIST TENT ASSEMBLER BRANDON AVITIA M.D. Performed By: #### H S TROP #### [place] [address] Glucose [Mass/Vol] 105 mg/dL Normal [facility] Comment on above: Result Comment: [place] Glucose Reference Range is dependent on time and content of last meal. Glucose of more than 200 mg/dL in a nonstressed, ambulatory subject supports the diagnosis of Diabetes Mellitus. PERFORMED BY: [place] [address] PATHOLOGIST TENT ASSEMBLER BRANDON AVITIA M.D. Performed By: #### G LULS #### Point of Care testing , Glucose [Mass/Vol] 124 mg/dL Normal [facility] Comment on above: Result Comment: [facility] Glucose Reference Range is dependent on time and content of last meal. Glucose of more than 200 mg/dL in a nonstressed, ambulatory subject supports the diagnosis of Diabetes Mellitus. PERFORMED BY: [place] [address] PATHOLOGIST TENT ASSEMBLER BRANDON AVITIA M.D. Performed By: #### H S TROP #### [address] Commemt1 Glu2: Cleaned Meter Normal [facility] Comment on above: Result Comment: PERF ORMED BY: [place] [address] PATHOLOGIST TENT ASSEMBLER BRANDON AVITIA M.D. Performed By: #### G LULS #### Point of Care testing , Glucose [Mass/Vol] 158 mg/dL Normal [facility] Comment on above: Result Comment: [facility] Glucose Reference Range is dependent on [...] Serum or Plasma High 70-100 [facility] Comment on above: ADA recommended refe rence rangeRandom Glucose Reference Range is dependent on time and content of last meal. Glucose of more than 200 mg/dL in a nonstressed, ambulatory subject supports the diagnosis of Diabetes Mellitus. Hemoglobin A1c/Hemoglobin.to madhuri in BloodOrdered By: Leslie Sanchez on 04-11-2024 HbA1c (Bld) [Mass fraction] Hemoglobin A1c percentage High 4.3-5.6 [facility] Comment on above: Increased risk for d iabetes: 5.7 - 6.4diabetes: >6.4glycemic control for adults with diabetes: <7.0 Lipid Panelon 04-11-2024 Cholesterol [Mass/Vol] 140 mg/dL Normal 140-200 [facility] Comment on above: Result Comment: Chol less than 200 mg/dl low risk Chol 201-239 mg/dl borderline risk Chol 240 mg/dl and greater high risk Performed By: #### G LULS #### Point of Care testing , Cholesterol in HDL [Mass/Vol] 35 mg/dL Normal 23-92 [facility] Comment on above: Result Comment: HDL CHOL ATP-III CLASSIFICATION Cardiovascular Risk HDL > or equal to 60 mg/dL LOW HDL < 40 mg/dL HIGH Performed By: #### G LULS #### Point of Care testing , Cholesterol.total/Chol esterol in HDL [Mass ratio] 4.0 {ratio} Normal <5.0 [facility] Comment on above: Performed By: #### G LULS #### Point of Care testing , LDL Cholesterol,Calculated 54 mg/dL Normal 0-100 [facility] Comment on above: Result Comment: LDL ATP III CLASSIFICATION LDL less than 100 mg/dL Optimal LDL 100-129 mg/dL Near or above optimal LDL 130-159 mg/dL Borderline high LDL 160-189 mg/dL High LDL greater than 189 mg/dL Very high Performed By: #### G LULS #### Point of Care testing , Triglyceride w/Reflex 253 mg/dL High 0-149 [facility] Comment on above: Result Comment: TRIG ATP III CLASSIFICATION TRIG less than 150 mg/dL Normal TRIG 150-199 mg/dL Borderline high TRIG 200-500 mg/dL High TRIG greater than 500 mg/dL Very high Standard traceable to the Center for Disease Conrtrol and Prevention (CDC) test method. Performed By: #### G LULS #### Point of Care testing , VLDL CHOLESTEROL 50 mg/dL Normal [facility] Comment on above: Performed By: #### G LULS #### Point of Care testing , Magnesiumon 04-11-2024 Magnesium [Mass/Vol] 2.0 mg/dL Normal 1.9-2.7 [facility] Comment on above: Performed By: #### G LULS #### Point of Care testing , Magnesium [Mass/volume] in S fina or PlasmaOrdered By: Leslie Jonesr on 04-11-2024 Magnesium [Mass/Vol] Magnesium [Mass/vol ume] in Serum or Plasma 1.9-2.7 [facility] No Panel InformationOrdered By: Leslie Sanchez on 04-11-2024 Bedside Glucose Comment Glu2: cleaned meter [facility] Outside Recordson 04-11-2024 Outside Records [id number]#1.00OTGTIFF [facility] Outside Records [id number]#1.00OTGTIFF [facility] Protein [Mass/volume] in Ser um or PlasmaOrdered By: Leslie Sanchez on 04-11-2024 Protein [Mass/Vol] Protein [Mass/volume ] in Serum or Plasma 6.4-8.9 [facility] Rad - Other Radiology Report on 04-11-2024 Rad - Other Radiology Report [id number]#1.00OTGTIFF [facility] Serum or plasma albumin/glob ulin mass ratioOrdered By: Leslie Sanchez on 04-11-2024 Albumin/Globulin [Mass ratio] Serum or plasma albumin/globulin mass ratio [facility] Serum or plasma total choles terol/high density lipoprotein (HDL) cholesterol mass ratOrdered By: Leslie Jonesr on 04-11-2024 Cholesterol.total/Chol esterol in HDL [Mass ratio] Serum or plasma total cholesterol/high density lipoprotein (HDL) cholesterol mass rat <5.0 [facility] Thyroid Stimulating Hormoneo n 04-11-2024 TSH Qn 1.00 m[IU]/L Normal 0.45-5.33 [facility] Comment on above: Result Comment: PERF ORMED BY: [facility] [place] [address] [place] [address] PATHOLOGIST TENT ASSEMBLER BRANDON AVITIA M.D. Performed By: #### G LULS #### Point of Care testing , Thyrotropin [Units/volume] i n Serum or PlasmaOrdered By: Leslie Sanchez on 04-11-2024 TSH Qn Thyrotropin [Units/v olume] in Serum or Plasma 0.45-5.33 [facility] Triglyceride [Mass/volume] i n Serum or PlasmaOrdered By: Leslie Sanchez on 04-11-2024 Triglyceride [Mass/Vol] Triglyceride [Mass/volume] in Serum or Plasma High 0-149 [facility] Comment on above: TRIG ATP III CLASSIF ICATIONTRIG less than 150 mg/dL NormalTRIG 150-199 mg/dL Borderline highTRIG 200-500 mg/dL High TRIG greater than 500 mg/dL Very highStandard traceable to the Center for Disease Conrtrol and Prevention (CDC) test method. B-Type Natriuretic Peptideon 04-10-2024 Natriuretic peptide B (Bld) [Mass/Vol] 26.0 pg/mL Normal 5-100 [facility] Comment on above: Result Comment: PERF ORMED BY: [facility] [place] [address] [place] [address] PATHOLOGIST TENT ASSEMBLER BRANDON AVITIA M.D. Performed By: #### G LULS #### Point of Care testing , Basic Metabolic Panelon 03-20 Anion gap [Moles/Vol] 11.2 mmol/L Normal 6.0-15.0 [facility] Comment on above: Performed By: #### G LULS #### Point of Care testing , Calcium [Mass/Vol] 10.0 mg/dL Normal 8.6-10.3 [facility] Comment on above: Performed By: #### G LULS #### Point of Care testing , Chloride [Moles/Vol] 104 mmol/L Normal 98-107 [facility] Comment on above: Performed By: #### G LULS #### Point of Care testing , CO2 [Moles/Vol] 22.5 mmol/L Normal 21.0-31.0 [facility] Comment on above: Performed By: #### G LULS #### Point of Care testing , Creatinine [Mass/Vol] 0.82 mg/dL Normal 0.70-1.30 [facility] Comment on above: Performed By: #### G LULS #### Point of Care testing , Creatinine Clr Calc Pharmacy 130.19 Normal [facility] Comment on above: Result Comment: PERF ORMED BY: [place] [address] [place] [address] PATHOLOGIST TENT ASSEMBLER BRANDON AVITIA M.D. Performed By: #### G LULS #### Point of Care testing , GFR/1.73 sq M.predicted MDRD (S/P/Bld) [Vol rate/Area] mL/min/{1.73_m2} Normal [facility] Comment on above: Performed By: #### G LULS #### Point of Care testing , Glucose [Mass/Vol] 143 mg/dL High 70-100 [facility] Comment on above: Result Comment: [place] Glucose Reference Range is dependent on time and content of last meal. Glucose of more than 200 mg/dL in a nonstressed, ambulatory subject supports the diagnosis of Diabetes Mellitus. ADA recommended reference range Performed By: #### G LULS #### Point of Care testing , Potassium [Moles/Vol] 3.7 mmol/L Normal 3.5-5.1 [facility] Comment on above: Performed By: #### G LULS #### Point of Care testing , Sodium [Moles/Vol] 134 mmol/L Low 136-145 [facility] Comment on above: Performed By: #### G LULS #### Point of Care testing , Urea nitrogen [Mass/Vol] 10 mg/dL Normal 7-25 [facility] Comment on above: Performed By: #### G LULS #### Point of Care testing , Complete Blood Count Auto Di ffon 04-10-2024 Basophils (Bld) [#/Vol] 0.1 10*3/uL Normal 0.0-0.2 [facility] Comment on above: Result Comment: PERF ORMED BY: [place] [address] PATHOLOGIST TENT ASSEMBLER BRANDON AVITIA M.D. Performed By: #### H S TROP #### [place] [id number] [place] Basophils/100 WBC (Bld) 1.2 % Normal . [facility] Comment on above: Performed By: #### H S TROP #### [address] Eosinophils (Bld) [#/Vol] 0.1 10*3/uL Normal 0.0-0.45 [facility] Comment on above: Performed By: #### H S TROP #### [place] [id number] [place] Eosinophils/100 WBC (Bld) 1.3 % Normal . [facility] Comment on above: Performed By: #### H S TROP #### [address] Erythrocyte distribution width (RBC) [Ratio] 12.8 % Normal 12.0-14.8 [facility] Comment on above: Performed By: #### H S TROP #### [address] Hematocrit (Bld) [Volume fraction] 44.8 % Normal 38.8-50.0 [facility] Comment on above: Performed By: #### H S TROP #### [address] Hemoglobin (Bld) [Mass/Vol] 15.4 g/dL Normal 13.0-17.0 [facility] Comment on above: Performed By: #### H S TROP #### [address] Lymphocytes (Bld) [#/Vol] 3.5 10*3/uL Normal 1.00-4.8 [facility] Comment on above: Performed By: #### H S TROP #### [address] Lymphocytes/100 WBC (Bld) 40.9 % Normal . [facility] Comment on above: Performed By: #### H S TROP #### [address] MCH (RBC) [Entitic mass] 31.1 pg Normal 27.5-35.2 [facility] Comment on above: Performed By: #### H S TROP #### [address] MCV (RBC) [Entitic vol] 90.4 fL Normal 83.5-101 [facility] Comment on above: Performed By: #### H S TROP #### [address] Mean Corpuscular HGB Conc 34.4 g/dL Normal 32.5-35.6 [facility] Comment on above: Performed By: #### H S TROP #### [address] Monocytes (Bld) [#/Vol] 0.5 10*3/uL Normal 0.0-0.8 [facility] Comment on above: Performed By: #### H S TROP #### [place] [id number] [place] Monocytes/100 WBC (Bld) 21.73 % High 0.00-20.00 [facility] Comment on above: Result Comment: For adults in ED, MDW > 20.0 may be associated with a higher risk of sepsis during the first 12 hrs of hospital admission Performed By: #### H S TROP #### [place] [id number] [place] Monocytes/100 WBC (Bld) 5.6 % Normal . [facility] Comment on above: Performed By: #### H S TROP #### [place] [id number] [place] Neutrophils (Bld) [#/Vol] 4.3 10*3/uL Normal 1.8-7.7 [facility] Comment on above: Performed By: #### H S TROP #### [address] Neutrophils/100 WBC (Bld) 51.0 % Normal . [facility] Comment on above: Performed By: #### H S TROP #### [address] NRBC% 0.1 /100{WBC} Normal 0-0.5 [facility] Comment on above: Performed By: #### H S TROP #### [address] Platelet mean volume (Bld) [Entitic vol] 7.4 fL Normal 6.6-10.1 [facility] Comment on above: Performed By: #### H S TROP #### [place] [id number] [place] Platelets (Bld) [#/Vol] 293 10*3/uL Normal 150-450 [facility] Comment on above: Performed By: #### H S TROP #### [address] RBC (Bld) [#/Vol] 4.96 10*6/uL Normal 3.90-5.60 [facility] Comment on above: Performed By: #### H S TROP #### [address] WBC (Bld) [#/Vol] 8.5 10*3/uL Normal 4.1-10.5 [facility] Comment on above: Performed By: #### H S TROP #### [address] D-Dimer High Sensitivityon 1 06-11-2023 D-Dimer High Sensitivity <200 Normal 0-243 [facility] Comment on above: Result Comment: [...] coagulation studies. Please contact the laboratory at [phone] for redraw instructions. PERFORMED BY: [place] [id number] PATHOLOGIST TENT ASSEMBLER BRANDON AVITIA M.D. Performed By: #### G LUSE #### Point of Care testing , ECG 12 lead ECGon 04-10-2024 ECG 12 lead ECG [facility] Main [place] [id number] Electrocardiograph Report Signed Patient: Lyly Quinn MR#: [id number] : 1965 Acct:[id number] Age/Sex: 59 / M ADM Date: 04/10/24 Loc: ER Room: Type: [facility] ER Attending Dr: Ordering Provider: Des [...] Sinus tachycardia Confirmed by Brian BLANCHARD DO ([id number]) on 04/10/2024 3:39:55 PM Referred By: Electronically Signed By: Brian BLANCHARD DO Transcribed By: MUS Signed By Brian Blanchard DO 1 06/11/23 1539 Normal [facility] ECG 12 lead ECG [facility] Main [place] [address] [place] [address] Electrocardiograph Report Signed Patient: Lyly Quinn MR#: [id number] : 1965 Acct:[id number] Age/Sex: 59 / M ADM Date: 04/10/24 Loc: ER Room: Type: [facility] ER Attending Dr: Ordering Provider: Des [...] sinus rhythm Confirmed by Brian BLANCHARD DO ([id number]) on 04/10/2024 3:38:47 PM Referred By: Electronically Signed By: Brian BLANCHARD DO Transcribed By: MUS Signed By Brian Blanchard DO 1 06/11/23 1538 Normal [facility] Fibrin D-dimer [Presence] in Platelet poor plasma by Latex agglutinationOrdered By: Des Contreras on 04-10-2024 Fibrin D-dimer LA Ql (PPP) Fibrin D-dimer [Presence] in Platelet poor plasma by Latex agglutination 0-243 [facility] Comment on above: The reference range [...] coagulation studies. Please contact the laboratory at [phone] for redraw instructions. Glucose Poct Glucometerson 1 2-23-2024 Commemt1 Glu2: Cleaned Meter Normal [facility] Comment on above: Result Comment: PERF ORMED BY: [facility] [address] [facility] [place] [address] PATHOLOGIST TENT ASSEMBLER BRANDON AVITIA M.D. Performed By: #### G LULS #### Point of Care testing , Glucose [Mass/Vol] 151 mg/dL Normal [facility] Comment on above: Result Comment: [place] om Glucose Reference Range is dependent on time and content of last meal. Glucose of more than 200 mg/dL in a nonstressed, ambulatory subject supports the diagnosis of Diabetes Mellitus. Performed By: #### G LULS #### Point of Care testing , Glucose [Mass/Vol] 136 mg/dL Normal [facility] Comment on above: Result Comment: [place] om Glucose Reference Range is dependent on time and content of last meal. Glucose of more than 200 mg/dL in a nonstressed, ambulatory subject supports the diagnosis of Diabetes Mellitus. PERFORMED BY: [facility] [address] [facility] [place] [address] PATHOLOGIST TENT ASSEMBLER BRANDON AVITIA M.D. Performed By: #### G LULS #### Point of Care testing , Monocyte distribution width [Entitic volume] in Blood by AutomatedOrdered By: Des Contreras on 04-10-2024 Monocyte distribution width Auto (Bld) [Entitic vol] Monocyte distribution width [Entitic volume] in Blood by Automated High 0.00-20.00 [facility] Comment on above: For adults in ED, MD W > 20.0 may be associated with a higher risk of sepsis during the first 12 hrs of hospital admission Natriuretic peptide B [Mass/ Vol]Ordered By: Des Contreras on 04-10-2024 Natriuretic peptide B (Bld) [Mass/Vol] BNP ser/plas 5-100 [facility] Outside Recordson 04-10-2024 Outside Records [id number]#1.00OTGTI FF [facility] Outside Records [id number]#1.00OTGTI FF Normal [facility] Outside Records [id number]#1.00OTGTI FF Normal [facility] Outside Records [id number]#1.00OTGTI Normal [facility] Prothrombin Time INRon 04-10 INR Coag (PPP) [Relative time] 2.2 {INR} Normal [facility] Comment on above: Result Comment: [...] (PPP) [Time] 25.4 s High 9.0-12.9 [facility] Comment on above: Result Comment: A he matocrit value greater than 55% may lead to inaccurate results in coagulation testing. Patients having hematocrit values >55% require a special collection tube for coagulation studies. Please contact the laboratory at [phone] for redraw instructions. Performed By: #### G LULS #### Point of Care testing , Rad - Other Radiology Report on 04-10-2024 Rad - Other Radiology Report [id number]#1.00OTGTI [facility] Troponin I High Sensitivityo n 04-10-2024 Troponin I High Sensitivity 3.2 pg/mL Normal 0.0-20.0 [facility] Comment on above: Result Comment: PERF ORMED BY: [address] [address] PATHOLOGIST TENT ASSEMBLER BRANDON AVITIA M.D. Performed By: #### H S TROP #### [address] [address] [facility] Troponin I High Sensitivity 3.1 pg/mL Normal 0.0-20.0 [facility] Comment on above: Result Comment: PERF ORMED BY: [place] [address] PATHOLOGIST TENT ASSEMBLER BRANDON AVITIA M.D. Performed By: #### H S TROP #### [address] Troponin I High Sensitivity 3.0 pg/mL Normal 0.0-20.0 [facility] Comment on above: Result Comment: PERF ORMED BY: [place] [address] PATHOLOGIST TENT ASSEMBLER BRANDON AVITIA M.D. Performed By: #### G LULS #### Point of Care testing , Troponin I.cardiac [Mass/vol ume] in Serum or Plasma by Detection limit <= 0.01 ng/Ordered By: Leslie Sanchez on 04-10-2024 Troponin I.cardiac DL <= 0.01 ng/mL [Mass/Vol] Troponin I.cardiac [Mass/volume] in Serum or Plasma by Detection limit <= 0.01 ng/ 0.0-20.0 [facility] XR chest 1V portableon 04-[address] [facility] [address] [place] [address] [place] [address] XRay Report Signed Patient: Lyly Quinn MR#: [id number] : 1965 Acct:[id number] Age/Sex: 59 / M ADM Date: 04/10/24 Loc: ER Room: Type: [facility] ER Attending Dr: Copies to: Des [...] Africa Soni M.D.04/10/2024 12:55 PM Dictation Location: [place] [address] Transcribed By: RADHA 04/10/24 1255 Dictated By: Africa Soni MD 04/10/24 1253 Signed By: 04/10/24 1255 Normal [facility] Outside Recordson 04-07-2024 Outside Records [id number]#1.00OTGTIFF [facility] Outside Records [id number]#1.00OTGTIFF [facility] Rad - Other Radiology Report on 04-06-2024 Rad - Other Radiology Report [id number]#1.00OTGTIF [facility] Rad - Other Radiology Report on 04-04-2024 Rad - Other Radiology Report [id number]#1.00OTGTIFF [facility] Outside Recordson 04-03-2024 Outside Records [id number]#1.00OTGTIFF [facility] Influenza virus A and B and SARS-CoV-2 (COVID-19) RNA panel - Respiratory system specon 03-31-2024 Influenza virus A and B RNA and SARS-CoV-2 (COVID-19) N gene panel LEATHA+probe (Resp) Influenza virus A and B and SARS-CoV-2 (COVID-19) RNA panel - Respiratory system spec [facility] Laboratory - Microbiology an d Antimicrobial susceptibilityon 03-31-2024 SARS-CoV-2 (COVID-19) RNA LEATHA+probe Ql (Unsp spec) Negative [facility] No Panel Informationon 03-31 POC Influenza B (LEATHA) Negative [facility] Diabetes Noteon 03-21-2024 Diabetes Note Patient [...] 10:55 EST] Erica Quiroz RN CDE BSN [facility] Coding Summaryon 03-13-2024 Coding Summary HTMLBase 64 DfqyaugbSBt9kZn+PGhlYWQ+PE 0SBTBxV33miRMhkV2wR5NAYHvP BlwmUTCKRGqGHqFfksQrDN1qyQ NjZXJu IC8+PE5cNVCrZbenkYQmy5W9yC L2Q75dwo5rHYkwgZM6NZUgXjZg wvjhl8djoOg9CXruKvgoZzUz EUUocW75SGN4dL91Iq83hHGskA Rwx1zgkFy0FeNhDIGfIQB2pDxk BZaaw1VdRVMzQ33hpQXmb1X7 JOKwpGiqnQWzDjDjfOR8oF4tAM mgelveq7ftgeejFng5gu95qXOv c5V3vBH1T6DhczH1ZBPerRLz AghxkZRYiC4dbclbn1jblgixXk XcMPSqLIc0MUt0DGSwmIqwVxIe SA94XIK3EHScniAuP4NsJIFf eVxrNrE1i2X7Gj0YJ5BUBdaaT4 VNTUFSWTwvdGQ+NI28xt42A1Zz ApwuJfj9PTMbGPV3eOS1bX5r TOFdFLidk3L3sNC0M4EtfrTqzz 3jo2fsKZApVWeyS67ahHQnp3N6 EPJpcJS5UYRvxFclXzJunL81 Oyc+AGJlmClee1GmKtbpj8sym1 cqyAf9UvadSZZdtkTtoUjiATX8 v6ImSa8pGAAoiCY7oID6hZ0a LhUbIcJ6CAriA380YiToeAYoIq tgU45mW3TvyWO+ACWbJdu9ZNSy bZemPQ6kV9NoWSVdxdpyzZIc sOgaEC0dGZWmqgwzSJXprK2nZU WvO2a9ZyFmRdE2LTsiP5GbWDAf dwdpMc44qN5nNeXiXoF5MRak O3HsajT8FAEntNMhUNttGUB6Z4 3qo9H7EAAuGEPhVNJ1jWG2jX1g bGlnbjogbGVmdDsgdmVydGlj KXbhZXcqA085QLHaxXkfIpDiPV luZyBEYXRlOiAgMTEvMjUvMjAy NDwvdGQ+WMFpAAZ2aDdyLKXb aGJzKUodAs7nkLutoFqmDR1wOV IilbgwBNDlcU2eURKhgANyiHxz EK0xZFXedbjya665NgAxNIL4 AEKabNZeR4GdlO6aOwEtUVUkYX FhA6HldLEuMJxdM348ALdvVxU7 UPSwlsGdE4XpUDHqjOqpPtW0 i0Y9Rg1Kh1ZgkmuwB1AxiNOvJc MvXglbNIi7T3RwOpfvrFN+PC90 IACpQH98JUo8VSK9zVpzSDkx LZTsB2NwqN5mNmFgOZWgZREcWh c+PHRhYmxlIHdpZHRoPScxMDAl FmSpoYzuMV2oRt6vITTcLFJy xHepwQHwWqVrv6bjGDRwSZbvTU 3qfDqiN1FcmIL1XEHsa3k2Qe84 S53fV0MbiBW+VFPsoWM1lAK8 kO3dYbUgKeZ0KTcyU527LsJlyT PrOjouj1krl1ijjMe7GyA7XPGk ccFfiCkkMUM1x7QnPl92Q47l IHdpZHRoPSIxNSUiIHZhbGlnbj 7umK0eBi7+KIBlwJS0wCL8zQ3v MlCrMlT0AAawC427ZxMbsELx Hxlhp2yik4vnbFb4EaFgKIRyub HbhErrADK9v2VaZr62A9HbgCkh g1XlQpc3xe28tRIbc1H1rRD6 D0QeTTFduinkmVAqlNriRY9eKL TgwyetUPEuwG1rAQKeQ2e7YeLm FpV8XOctA5ErijD8DKWylODf GMFqxPXTaH2zkguiq3amfayoGy VqOTXfIYe2YKm0HYYojAfaBiWf XVB2TeD4OHB8gNNtdD5rpOem umtzqB3mThn+OOF9xWNzjVKZMX 1lOjwvdGQ+XTInIRH6eZwbDRuo TNMfjU8zHKGkK1e8MbEvUgC0 JMqiS7RxpiK6SASenHYfMCFjhO WSdX5fhfymp1oxeotxIiZhCDXy BLs7WXh5GLZqkKinBkWtEGZ2 AaF0CSY3iXEsrK2bfOdyslrmlX 9wOyc+QrppiPqjGRX1SKv0B9Ec Mcs6FLKjfPfiSB9clTQmHRor Na8gsIlnjSojEH7yNNKggsrvz2 68SgHzy5dyDGUojSUyFQycIRN0 Y85fq0K1YJDiJDNpTIU8zSB9 nR1dsHewadpyqEDybMqogfDdoA okYCqsIZycA145OMKfaElwUuHr DGo6U7ElAte5PMQmqMlgBH0z rGCvNWztXb8koNfyzGzlJF7eRB Rtptndu425YaWrf4wrGDFowBFq YSrzSCB9P04vh2J5GSGpBXQj JPC7iXD3rU0diCtcgajqlOSksW xthtZxcLyyHBfoGNhjO890VKEf yYipXjVysOv8E8ZuHwd0TURv aSsuPU4rkZTcNFbsJw7jrLzboT zcDE1dJKLpgwvyt604LrVsc7wl YKFpxCOtSNdnNIK4L52dd5C6 IVPoGGCvBTK3xII5tM3jtOsrvj ogbGVmdDsgdmVydGljYWwtYWxp A861KFMioYrxUaBraSmhzhEa RJgdDCu9G4SlZxdxmDQ+PC90YW OzIQ73rFGohGGwd4dmvZj6NfBh VTVuOWY2rHmxDRtst3CnSRNz Z56bkVRjn6F8HPNpiJrdxKJfMs PrxQY0yQ8kWUqaasopf5snwnoe Cndud0xyca33bX38D80rSRht VRToHZGfZLByQZZdyJyotv8mmA 9wIi8+OHQczFB0nQX0eF2jAJEt GnA7VNjfY099YwQwkTXfUacq b2ilg7kztSz9RfY2LHKmfoNeaE ylIKM8l3KcJu78W78kJFpfFSVx LTImCTHqLSXskTsuwl5hhZ0r Ii8+YMZlsYO6tOS4eS8tImQqSo S6DQikL026YuOaxKPhLhqyP43s O7ErcFJ+NDHgSdj0GMPvzEkc GG8vlGFwKChtTr5yFTX2RuDvEa NmQEosO5NvCLOtynwrqwmgdIP7 UPPcDCBaoI75Xd0agFwfZBWw vIVPiE8kgjfhg7abbzdnKaHjLS WyVIq0XZk3QQNuvYhxBsXdSGA9 RnX5TDO7nBWvhG6vfQkharpx gV8rE2IeIUBeghzeMl75sA3rSg AePbY5NMjwTzi+LenHB8PwCCIP ZN3eX9aWLJsTLWiifMT+PHRk MXE6fPukPHxjGVHboN1lEBMyB6 s6YxAoRsN1PPnvC7NnYFKkyjbe Hz08nZ9zXcXpOcO1BPnbY6Ia iuB0CNKgiHFbGNtwYZM1B33rr8 P8LXIhQOIzGJT6nFJ4zB2ryCki bjogbGVmdDsgdmVydGljYWwt ILniS205YGBuxHhmDbThWeP0Wt D1UyG2Z0RfOij6YQJhvIfdIB5t jXBbHFsoZg4xeBqjmLswYH3w WLKbseiuIKXnoA5eORLswVVozO ffRP6xJWCnmesub141PlQhMXS9 JDAhjNNuS4OsgV4xPlNcSYHf QAIbO4EtiSYkQLnuX950MMumDt P8YNJlfiDpY9KdNEDrnSxhUmJ0 b1Z2Gr44IzYYNBYsatdehLT+ ACLhOCK8xUnbZHudQNIyoP4sSH YkT5w4SyDrOzY3TQagO9DeBXEe glwhVc32vR7gDsMuLpH5WTnf E8JpluO9CXRnzVXtSXvaUFF7C1 9so8T5CDFfWYSlCWL8oQV9sT3s bGlnbjogbGVmdDsgdmVydGlj QPmaOWbaG794QDBvgMikCo8EYB R6S5QjEbq3KMNzuWprCF1jwALu BAcmQt4mkRqkzArcUW2mGBWw azzaAORvnY0tPCTzrOEtwGyvBO 1gTNRikbpnn650McQfWTR7XONg sZAuG2CilQ3zIcPvEDZjMVBo M9RcdHYdJPwxE173DOgqYuZ4OL XqukIpQ8VwINGkjTsaIaJ6c6J2 Wi6WMHW9caBtuipwX9D0sFA5 aWVudDwvdGQ+OE21np44O5VsVs ivMai6DVOvDVK0kBT7yC3dDLBc QEpfh2E1fGU2T5HpykJgfi1q b3vxFXDlKHlmW53atUEgo1D2PB DqrYS0HOSjcXhqTuMxyZ25Xiw+ APXruDbfn0RxUbmrr8tjw0dk aDa9IvUiLEWnkaDjbUwwVUL0n4 BdRo50T64cJAmqXJQeLTXfUXQk OGElwJzpju5rhZ3mGh7+PGNv fPE0lBG3aT9mPhEyMtR4PTqyG6 17UkJceYVdQmezm8eup9duxQf5 RiSiCDRlsrTbcLdnEJM0h4Uv Tl33Q8NpwNjrs1ZsTgg7tx95gO Jzy5Z7wHH9H7ZiQRQdzueifFZc zRlmCH7mOHCttnwpFIXsjA6r HDWoL5u2TaFuZeC3LPlxK9Lowv U6DAQixDYlGEOxpGNMdS2ojmhj l3hjzwejBkJfXGLuTUa1HWy1 TGRgnMhzAnWoCJF7CqK7HXO2fV RagU6emAjeedokrX7iHnw+UGh5 l0rooOHjEC0lbIZ5ZR18UH91 vYHhh7C4bTW8G1EmCBMnmfeysp swgLI2NWMrOCNjdV12Yz7kvLdm Vo6sQKTjVBE5WDAyoUIxL7Ag xC9jSrUnBHQwYDApJ0BccDVgNF ryJ978SLcbQkG2CJNvcgWcS5Ix EPAvbJlxElX4e5E0Xv7QXD23 FB39HY32qWRov8F4jPR8J4NjCS UhtxxiqbppaOG0DCIzDLAlcO63 Rw2tzTsrYb2cBAOdKPO9JYJf vMHxV1CqrL8oYxWlQPTxZTKuW9 KcuZHiKYwvR109RCzdIqB1OGLr jiHnG2EfLCSwsZxdOtO3n5J4 Yr8OEw56HF78DS58dXXcv9P3qR Y0D5XdXOZowrmacqmyfHX5CEAw OZDcpE16Gb6zlEwyRi7tIUJp GGB4CCAjwNEzP1TtfM4nSgYoNG FwKWHjO8PluFGvLGysC083CYud GgV2XUNqqxJiL1AgJREzbDqm BvY0l6L9Lg9BREacmlu4S4LiEr wvdHI+YA29IFQrOR10oVEtcQWx e6bnbRi4WyHlFJWqWWA2uYzp PSd (more content not included)... [facility] Provider Orderson 02-11-2024 Provider Orders [id number]#[facility] Lab - Other Lab Results [id number]#1.[facility] - Other Radiology Report on 02-04-2024 Rad - Other Radiology Report [id number]#1.[facility] X[facility] RT min 2V(w/wo pelvis )*on 09-15-2023 XR hip RT min 2V(w/wo pelvis)* [facility] [address] [place] [address] XRay Report Signed Patient: Lyly Quinn MR#: [id number] : 1965 Acct:[id number] Age/Sex: 58 / M ADM Date: 09/15/23 Loc: [facility] Room: Type: REG CLI Attending Dr: Charles [...] M.D.09/15/2023 3:16 PM Dictation Location: [place] [address] Transcribed By: [facility] 09/15/23 1516 Dictated By: Terrence Basurto II, MD 09/15/23 1515 Signed By: 09/15/23 1516 Normal [facility] XR lumbar spine AP/LAT/FLX/E XTon 09-15-2023 XR lumbar spine AP/LAT/FLX/EXT [facility] [address] [place] [address] XRay Report Signed Patient: Lyly Quinn MR#: [id number] : 1965 Acct:[id number] Age/Sex: 58 / M ADM Date: 09/15/23 Loc: [facility] Room: Type: REG CLI Attending Dr: Charles [...] M.D.09/15/2023 3:19 PM Dictation Location: [place] [address] Transcribed By: [facility] 09/15/23 1519 Dictated By: Terrence Basurto II, MD 09/15/23 1516 Signed By: 09/15/23 1519 Normal [facility] NR MRI L-SPINE WOon 05-12-19 23 NR MRI L-SPINE WO Patient Name: LYLY QUINN STUDY: MRI L-SPINE WO; 05/12/2022 8:35 am INDICATION: acute right foot drop, previous surgery, had MRI 2 weeks ago with insufficient metal reduction unable to assess junctional levels M96.1: Lumbar postlaminectomy syndrome M21.371: Right foot drop. COMPARISON: Outside hospital MRI L-spine dated 04/30/2022 ACCESSION NUMBER(S): [id number] ORDERING CLINICIAN: BEE BLACKMON TECHNIQUE: Sagittal T1, [...] signed by: DILMA VERA MD [facility] MRI Lumbar Spine w/oon 04-30 [...] by Carlos Hayward on 05/01/2022 0917 Normal [facility] Slot Operations Director Established Visit (Orthopaed ic Surgery)on 04-27-2022 Established [...] is going to do this in the [facility], we will have them push the [...] 01/07/2021 10:40:28 AM Current Meds Medication NameInstruction Uwnaoyqgew-ZCNX-Ogdmmfba 50-300-40 MG Oral CapsuleTAKE 1 CAPSULE BY [...] Apr 27 2022 10:06AM EST (Author) Normal [employer] CBC AUTO DIFFon 04-14-2022 BASO # 0.0 103/ul Normal 0.0-0.1 [facility] Comment on above: Performed By: #### C BC #### [facility] [address] [place] [address] Dr. Devonte Rivas Basophils/100 WBC (Bld) 0.4 % Normal 0.2-2.0 [facility] Comment on above: Performed By: #### C BC #### [facility] [address] [place] [address] Dr. Devonte Rivas EO # 0.1 103/ul Normal 0.0-0.7 [facility] Comment on above: Performed By: #### C BC #### [facility] [address] [place] [address] Dr. Devonte Rivas Eosinophils/100 WBC (Bld) 0.9 % Normal 0.9-7.0 [facility] Comment on above: Performed By: #### C BC #### [facility] [address] [place] [address] Dr. Devonte Rivas Erythrocyte distribution width (RBC) [Ratio] 12.4 % Normal 11.0-15.0 [facility] Comment on above: Performed By: #### C BC #### [facility] [address] [place] [address] Dr. Devonte Rivas Hematocrit (Bld) [Volume fraction] 42.4 % Normal 42.0-54.0 [facility] Comment on above: Performed By: #### C BC #### [facility] [address] [place] [address] Dr. Devonte Rivas Hemoglobin (Bld) [Mass/Vol] 14.8 g/dL Normal 14.0-18.0 [facility] Comment on above: Performed By: #### C BC #### [facility] [address] [place] [address] Dr. Devonte Rivas IG # 0.03 10e3/ul Normal 0.00-0.03 [facility] Comment on above: Performed By: #### C BC #### [facility] [address] [place] [address] Dr. Devonte Rivas IG % 0.6 % Critically high 0.0-0.5 [facility] Comment on above: Performed By: #### C BC #### [facility] [address] [place] [address] Dr. Devonte Rivas LYMPH # 1.7 103/ul Normal 1.2-3.8 [facility] Comment on above: Performed By: #### C BC #### [facility] [address] [place] [address] Dr. Devonte Rivas Lymphocytes/100 WBC (Bld) 31.6 % Normal 20.5-60.0 [facility] Comment on above: Performed By: #### C BC #### [facility] [address] [place] [address] Dr. Devonte Rivas MANUAL DIFF REQ NO Normal [facility] Comment on above: Performed By: #### C BC #### [facility] [address] [place] [address] Dr. Devonte Rivas MCH (RBC) [Entitic mass] 31.3 pg Normal 25.9-34.0 [facility] Comment on above: Performed By: #### C BC #### [facility] [address] [place] [address] Dr. Devonte Rivas MCHC (RBC) [Mass/Vol] 34.9 g/dL Normal 29.9-35.2 [facility] Comment on above: Performed By: #### C BC #### [facility] [address] [place] [address] Dr. Devonte Rivas MCV (RBC) [Entitic vol] 89.6 fL Normal 80.0-94.0 [facility] Comment on above: Performed By: #### C BC #### [facility] [address] [place] [address] Dr. Devonte Rivas MONO # 0.9 103/ul Critically high 0.3-0.8 [facility] Comment on above: Performed By: #### C BC #### [facility] [address] [place] [address] Dr. Devonte Rivas Monocytes/100 WBC (Bld) 15.6 % Critically high 1.7-12.0 [facility] Comment on above: Performed By: #### C BC #### [facility] [address] [place] [address] Dr. Devonte Rivas NEUT # 2.8 103/ul Normal 1.4-6.5 [facility] Comment on above: Performed By: #### C BC #### [facility] [address] [place] [address] Dr. Devonte Rivas Neutrophils/100 WBC (Bld) 50.9 % Normal 43.0-75.0 [facility] Comment on above: Performed By: #### C BC #### [facility] [address] [place] [address] Dr. Devonte Rivas Platelet mean volume (Bld) [Entitic vol] 9.4 fL Critically low 9.5-13.5 [facility] Comment on above: Performed By: #### C BC #### [facility] [address] [place] [address] Dr. Devonte Rivas PLT 194 103/ul Normal 150-450 [facility] Comment on above: Performed By: #### C BC #### [facility] [address] [place] [address] Dr. Devonte Rivas RBC 4.73 106/ul Normal 4.70-6.10 [facility] Comment on above: Performed By: #### C BC #### [facility] [address] [place] [address] Dr. Devonte Rivas WBC 5.4 103/ul Normal 4.0-11.0 [facility] Comment on above: Performed By: #### C BC #### [facility] [address] [place] [address] Dr. Devonte Rivas CTA CHEST WO W [...] DANIEL BENITEZ Date: 2022-04-14 10:29 Normal [facility] Covid-19 PCR (CVDTBH)on 03-20 SARS-CoV-2 (COVID-19) RNA LEATHA+probe Ql (Unsp spec) Detected Critically abnormal NOT DETECTED [facility] Comment on above: Result Comment: This test is not yet approved or cleared by the [place] FDA. When there are no FDA-approved or cleared tests available, and other criteria are met, FDA can make tests available under an emergency access mechanism called an Emergency Use Authorization (EUA). The EUA for this test is supported by the [place] of Health and Human Service's declaration that [...] used). Performed By: #### C VDTB #### [facility] [address] [place] [address] Dr. Devonte Rivas INFLUENZA A AND B AGon 04-14 [facility] SEE BELOW Normal [facility] Comment on above: Result Comment: Nega tive for Flu A protein angiten. Infection due to Flu A cannot be ruled out. Flu A angiten in the sample may be below the detection limit of the test. Performed By: #### I NFLUAB #### [facility] [address] [place] [address] Dr. Devonte [facility] BELOW Normal [facility] Comment on above: Result Comment: Nega tive for Flu B protein antigen. Infection due to Flu B cannot be ruled out. Flu B antigen in the sample may be below the detection limit of the test. Performed By: #### I NFLUAB #### [facility] [address] [place] [address] Dr. Devonte Rivas INFLUENZA A AG Negative Normal NEGATIVE SEE COMMENT [facility] Comment on above: Performed By: #### I NFLUAB #### [facility] [address] [place] [address] Dr. Devonte Rivas INFLUENZA B AG Negative Normal NEGATIVE SEE COMMENT [facility] Comment on above: Performed By: #### I NFLUAB #### [facility] [address] [place] [address] Dr. Devonte Rivas INTERNAL CONTROLS Within Normal Limits Normal Wi thin Normal Limits [facility] Comment on above: Performed By: #### I NFLUAB #### [facility] [address] [place] [address] Dr. Devonte Rivas PROF CHEM 8 (BAS METB)on Anion gap [Moles/Vol] 12.0 mmol/L Normal Th [facility] Comment on above: Performed By: #### H STROPN, BMP #### [facility] [address] [place] [address] Dr. Devonte Rivas Calcium [Mass/Vol] 9.2 mg/dL Normal 8.5-10.1 [facility] Comment on above: Performed By: #### H STROPN, BMP #### [facility] [address] [place] [address] Dr. Devonte Rivas Chloride [Moles/Vol] 100 mmol/L Normal 98-107 [facility] Comment on above: Performed By: #### H STROPN, BMP #### [facility] [address] [place] [address] Dr. Devonte Rivas CO2 [Moles/Vol] 26.2 mmol/L Normal 21.0-32.0 [facility] Comment on above: Performed By: #### H STROPN, BMP #### [facility] [address] [place] [address] Dr. Devonte Rivas Creatinine [Mass/Vol] 0.99 mg/dL Normal 0.70-1.30 [facility] Comment on above: Performed By: #### H STROPN, BMP #### [facility] [address] [address] [address] Devonte Rivas EGFR-AF AZERBAIJANI >60 Normal >=60 [facility] Comment on above: Performed By: #### H STROPN, BMP #### [facility] [address] [address] [address] Devonet Rivas EGFR-NON AF AZERBAIJANI >60 Normal >=60 [facility] Comment on above: Performed By: #### H STROPN, BMP #### [facility] [address] [address] [address] Devonte Rivas Glucose [Mass/Vol] 163 mg/dL Critically high 74-106 T [facility] Comment on above: Performed By: #### H STROPN, BMP #### [facility] [address] [place] [address] Dr. Devonte Rivas Potassium [Moles/Vol] 4.2 mmol/L Normal 3.5-5.1 [facility] Comment on above: Performed By: #### H STROPN, BMP #### [facility] [address] [place] [address] Dr. Devonte Rivas Sodium [Moles/Vol] 134 mmol/L Critically low 136-145 Th [facility] Comment on above: Performed By: #### H STROPN, BMP #### [facility] [address] [address] [address] Devonte Rivas Urea nitrogen [Mass/Vol] 11.0 mg/dL Normal 7.0-18.0 [facility] Comment on above: Performed By: #### H STROPN, BMP #### [facility] [address] [address] [address] Devonte Rivas Urea nitrogen/Creatinine [Mass ratio] 11.1 mg/mg Normal [facility] Comment on above: Performed By: #### H STROPN, BMP #### [facility] [address] [address] [address] Devonte Rivas TROPONIN, HIGH SENSITIVITYon 04-14-2022 HSTROP <4.0 Normal 4.0-76.1 [facility] Comment on above: Result Comment: CUT- OFF POINTS HAVE BEEN ESTABLISHED BASED ON THE FOURTH UNIVERSAL DEFINITIONS OF MYOCARDIAL INFARCTION. THE UPPER REFERENCE LIMIT (URL) OF TROPONIN, DEFINED THE 99TH PERCENTILE OF cTnI DISTRIBUTION IN A REFERENCE POPULATION, HAS BEEN CONFIRMED THE DECISION THRESHOLD FOR SC DIAGNOSIS. Performed By: #### H STRODEYSI, [facility] #### [facility] [address] [place], [place] [address] Dr. Devonte Rivas XR CHEST 1 Von 04-14-2022 XR CHEST 1 V EXAM: Chest x-ray HISTORY: . SHORTNESS OF BREATH . COMPARISON: 10/26/2010 TECHNIQUE: Frontal and lateral chest. FINDINGS: Heart and vascularity are unremarkable. Lungs are free of focal infiltrates. EKG leads overlie the chest. Impression: No acute heart or lung disease identified. Electronically authenticated by: DANIEL MALDONADO Date: 2022-04-14 09:[address] [facility] Established Visit (Orthopaed ic Surgery)on 09-29-2021 Established [...] 01/07/2021 10:40:28 AM Current Meds Medication NameInstruction Nakpqxsowt-WWCK-Omatlmdr 50-300-40 MG Oral CapsuleTAKE 1 CAPSULE BY [...] Sep 29 2021 12:05PM EST (Author) Normal [facility] Office Visiton 09-16-2021 Follow-up visit Diagnoses/Problems Class 1 obesity with body mass index (BMI) of 34.0 to 34.9 in adult (278.00,V85.34) (E66.9,Z68.34) Inappropriate diet or eating habits (V69.1) (Z72.4) Orders Class 1 obesity with body mass index (BMI) of 34.0 to 34.9 in adult Comprehensive Metabolic Panel; Status:Active; Requested for:[id number]; Hemoglobin A1C; Status:Active; Requested for:16Sep2021; Insulin Level, [...] for weight loss may be short or intermediate project manager, but that if weight loss is not [...] of coffee (black) V8 juice L - [place] (low calorie tortilla) turkey with salad [...] Social Hx: Lives with: Spouse 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 Normal [facility] MRI Lumbar Spine w/oon 09-05 MRI Lumbar [...] by Chandler Tomlinson on 09/08/2021 1127 Normal [facility] Slot Operations Director CT Abdomen/Pelvis w/ Contras ton 08-05-2021 CT [...] by Chandler Tomlinson on 08/06/2021 0906 Normal [facility] [employer] Operations Director Established Visit (Orthopaed ic Surgery)on 07-28-2021 Established Visit (Orthopaedic Surgery) Diagnoses/Problems Assessed Lumbar postlaminectomy syndrome (722.83) (M96.1) Orders Lumbar postlaminectomy syndrome MRI L Spine without Contrast; Status:Hold For - Scheduling,Retrospective Authorization; Requested for:[id number]; Radiologist to Determine Optimal Study : Y Does the patient have a Cochlear Implant, Pacemaker, Defibrilator, Pacing Wire, Brain Aneurysm Clip, Implanted Nerve or Bone Graft Simulator, Implanted Breast Tissue Machined Parts Metal Sprayer, Glucose Monitor, or Neulasta Device? 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 Normal [facility] Nutrition-[place] 05-06-2021 Nutrition-Adult Medical Diagnosis Assessed Class [...] fatty acids and low saturated fat content. [place], mackerel, albacore tuna, sardines, mills and franco [...] occasionally snack (more content not included)... Normal [facility] No Panel Informationon 04-23 3638 1 [facility] [address] Work Phone: [phone] [facility] Work Phone: [phone] [facility] Work Phone: [phone] [facility] [address] Work Phone: Comment on above: Age: 56Height: 73 in Sex: MLevel of Activity: Sedentary (little or no exercise)Weight: 292 lb 2138 1 [facility] Work Phone: [phone] [facility] Work Phone: Tobacco Screening.on 022 Fall risk assessment a) No falls within the last year [facility] Work Phone: Tobacco use status CPHS b) No [facility] [address] Work Phone: Radiologyon 03-10-2021 XR Lumbar spine AP and Lateral Please click on the link to view the study images Normal -Orthopae dics-[employer] Work Phone: SPINE, LUMBOSACRAL; 2 OR 3 V IEWSon 03-10-2021 SPINE, LUMBOSACRAL; 2 OR 3 VIEWS Patient Name: LYLY QUINN STUDY: SPINE, LUMBOSACRAL; 2 OR 3 VIEWS; ; 03/10/2021 11:16 am INDICATION: pain M96.1: Lumbar postlaminectomy syndrome M48.062: Spinal stenosis of lumbar region with neurogenic claudication. COMPARISON: 12/09/2020. ACCESSION NUMBER(S): [id number] ORDERING CLINICIAN: BEE BLACKMON FINDINGS: Lumbosacral spine [...] Electronically signed by: JANET VILLARREAL MD Normal [facility] Radiologyon 12-09-2020 XR Lumbar spine AP and Lateral Please click on the link to view the study images Normal -Orthopae dics-[employer] Work Phone: SPINE, LUMBOSACRAL; 2 OR 3 V IEWSon 12-09-2020 SPINE, LUMBOSACRAL; 2 OR 3 VIEWS Patient Name: LYLY QUINN STUDY: Lumbar Spine, 2 views. INDICATION: low back pain. COMPARISON: Outside hospital lumbar spine radiographs 08/29/2020 ACCESSION NUMBER(S): [id number] ORDERING CLINICIAN: BEE BLACKMON FINDINGS: Redemonstration of [...] Electronically signed by: WILLIAMS GUZMAN MD Normal [facility] BASIC METABOLIC PANELon 11-17 ANION GAP Canceled Normal [facility] Comment on above: Order Comment: TEST BASIC METABOLIC PANEL WAS CANCELLED, 12/01/2020 18:56 NO SPECIMEN RECEIVED IN LAB. Performed By: #### B MP #### [facility] [address] [place] [address] BICARBONATE Canceled Normal [facility] Comment on above: Order Comment: TEST BASIC METABOLIC PANEL WAS CANCELLED, 12/01/2020 18:56 NO SPECIMEN RECEIVED IN LAB. Performed By: #### B MP #### [facility] [address] [place] [address] CALCIUM Canceled Normal [facility] Comment on above: Order Comment: TEST BASIC METABOLIC PANEL WAS CANCELLED, 12/01/2020 18:56 NO SPECIMEN RECEIVED IN LAB. Performed By: #### B MP #### [facility] [address] [place] [address] CHLORIDE Canceled Normal [facility] Comment on above: Order Comment: TEST BASIC METABOLIC PANEL WAS CANCELLED, 12/01/2020 18:56 NO SPECIMEN RECEIVED IN LAB. Performed By: #### B MP #### [facility] [address] [place] [address] CREATININE Canceled Normal [facility] Comment on above: Order Comment: TEST BASIC METABOLIC PANEL WAS CANCELLED, 12/01/2020 18:56 NO SPECIMEN RECEIVED IN LAB. Performed By: #### B MP #### [facility] [address] [place] [address] GFR- AM. Canceled Normal [facility] Comment on above: Order Comment: TEST BASIC METABOLIC PANEL WAS CANCELLED, 12/01/2020 18:56 NO SPECIMEN RECEIVED IN LAB. Result Comment: CALC ULATIONS OF ESTIMATED GFR ARE PERFORMED USING THE MDRD STUDY EQUATION FOR THE IDMS-TRACEABLE CREATININE METHODS. CLIN CHEM 2007;53:766-72 Performed By: #### B MP #### [facility] [address] [place] [address] GFR-NON AM. Canceled Normal [facility] Comment on above: Order Comment: TEST BASIC METABOLIC PANEL WAS CANCELLED, 12/01/2020 18:56 NO SPECIMEN RECEIVED IN LAB. Performed By: #### B MP #### [facility] [address] [place] [address] GLUCOSE Canceled Normal [facility] Comment on above: Order Comment: TEST BASIC METABOLIC PANEL WAS CANCELLED, 12/01/2020 18:56 NO SPECIMEN RECEIVED IN LAB. Performed By: #### B MP #### [facility] [address] [place] [address] POTASSIUM Canceled Normal [facility] Comment on above: Order Comment: TEST BASIC METABOLIC PANEL WAS CANCELLED, 12/01/2020 18:56 NO SPECIMEN RECEIVED IN LAB. Performed By: #### B MP #### [facility] [address] [place] [address] SODIUM Canceled Normal [facility] Comment on above: Order Comment: TEST BASIC METABOLIC PANEL WAS CANCELLED, 12/01/2020 18:56 NO SPECIMEN RECEIVED IN LAB. Performed By: #### B MP #### [facility] [address] [place] [address] UREA NITROGEN Canceled Normal [facility] Comment on above: Order Comment: TEST BASIC METABOLIC PANEL WAS CANCELLED, 12/01/2020 18:56 NO SPECIMEN RECEIVED IN LAB. Performed By: #### B MP #### [facility] [address] [place] [address] CBCon 12-01-2020 HCT Canceled Normal [facility] Comment on above: Order Comment: TEST CBC WAS CANCELLED, 12/01/2020 18:56 NO SPECIMEN RECEIVED IN LAB. Performed By: #### C BC #### [facility] [address] [place] [address] HGB Canceled Normal [facility] Comment on above: Order Comment: TEST CBC WAS CANCELLED, 12/01/2020 18:56 NO SPECIMEN RECEIVED IN LAB. Performed By: #### C BC #### [facility] [address] [place] [address] MCHC Canceled Normal [facility] Comment on above: Order Comment: TEST CBC WAS CANCELLED, 12/01/2020 18:56 NO SPECIMEN RECEIVED IN LAB. Performed By: #### C BC #### [facility] [address] [place] [address] MCV Canceled Normal [facility] Comment on above: Order Comment: TEST CBC WAS CANCELLED, 12/01/2020 18:56 NO SPECIMEN RECEIVED IN LAB. Performed By: #### C BC #### [facility] [address] [place] [address] NUCLEATED RBC Canceled Normal [facility] Comment on above: Order Comment: TEST CBC WAS CANCELLED, 12/01/2020 18:56 NO SPECIMEN RECEIVED IN LAB. Performed By: #### C BC #### [facility] [address] [place] [id number] PLT Canceled Normal [facility] Comment on above: Order Comment: TEST CBC WAS CANCELLED, 12/01/2020 18:56 NO SPECIMEN RECEIVED IN LAB. Performed By: #### C BC #### [facility] [address] [place] [address] RBC Canceled Normal [facility] Comment on above: Order Comment: TEST CBC WAS CANCELLED, 12/01/2020 18:56 NO SPECIMEN RECEIVED IN LAB. Performed By: #### C BC #### [facility] [address] [place] [address] RDW-CV Canceled Normal [facility] Comment on above: Order Comment: TEST CBC WAS CANCELLED, 12/01/2020 18:56 NO SPECIMEN RECEIVED IN LAB. Performed By: #### C BC #### [facility] [address] [place] [address] WBC Canceled Normal [facility] Comment on above: Order Comment: TEST CBC WAS CANCELLED, 12/01/2020 18:56 NO SPECIMEN RECEIVED IN LAB. Performed By: #### C BC #### [facility] [address] [place] [address] BASIC METABOLIC PANELon 11-17 ANION GAP Canceled Normal [facility] Comment on above: Order Comment: TEST BASIC METABOLIC PANEL WAS CANCELLED, 11/29/2020 10:53 NO SPECIMENRECEIVED IN LAB. Performed By: #### B MP ####[id number] [place] [address] BICARBONATE Canceled Normal [facility] Comment on above: Order Comment: TEST BASIC METABOLIC PANEL WAS CANCELLED, 11/29/2020 10:53 NO SPECIMENRECEIVED IN LAB. Performed By: #### B MP ####[id number] [place] [address] CALCIUM Canceled Normal [facility] Comment on above: Order Comment: TEST BASIC METABOLIC PANEL WAS CANCELLED, 11/29/2020 10:53 NO SPECIMENRECEIVED IN LAB. Performed By: #### B MP ####[id number] [place] [address] CHLORIDE Canceled Normal [facility] Comment on above: Order Comment: TEST BASIC METABOLIC PANEL WAS CANCELLED, 11/29/2020 10:53 NO SPECIMENRECEIVED IN LAB. Performed By: #### B MP ####[id number] [place] [address] CREATININE Canceled Normal [facility] Comment on above: Order Comment: TEST BASIC METABOLIC PANEL WAS CANCELLED, 11/29/2020 10:53 NO SPECIMENRECEIVED IN LAB. Performed By: #### B MP ####[id number] [place] [address] GFR- AM. Canceled Normal [facility] Comment on above: Order Comment: TEST BASIC METABOLIC PANEL WAS CANCELLED, 11/29/2020 10:53 NO SPECIMENRECEIVED IN LAB. Result Comment: CALC ULATIONS OF ESTIMATED GFR ARE PERFORMED USING THE MDRD STUDY EQUATION FOR THE IDMS-TRACEABLE CREATININE METHODS. CLIN CHEM 2007;53:766-72 Performed By: #### B MP ####[id number] [place] [address] GFR-NON AM. Canceled Normal [facility] Comment on above: Order Comment: TEST BASIC METABOLIC PANEL WAS CANCELLED, 11/29/2020 10:53 NO SPECIMENRECEIVED IN LAB. Performed By: #### B MP ####[id number] [place] [address] GLUCOSE Canceled Normal [facility] Comment on above: Order Comment: TEST BASIC METABOLIC PANEL WAS CANCELLED, 11/29/2020 10:53 NO SPECIMENRECEIVED IN LAB. Performed By: #### B MP ####[id number] [place] [address] POTASSIUM Canceled Normal [facility] Comment on above: Order Comment: TEST BASIC METABOLIC PANEL WAS CANCELLED, 11/29/2020 10:53 NO SPECIMENRECEIVED IN LAB. Performed By: #### B MP ####[id number] [place] [address] SODIUM Canceled Normal [facility] Comment on above: Order Comment: TEST BASIC METABOLIC PANEL WAS CANCELLED, 11/29/2020 10:53 NO SPECIMENRECEIVED IN LAB. Performed By: #### B MP ####[id number] [place] [address] UREA NITROGEN Canceled Normal [facility] Comment on above: Order Comment: TEST BASIC METABOLIC PANEL WAS CANCELLED, 11/29/2020 10:53 NO SPECIMENRECEIVED IN LAB. Performed By: #### B MP ####[id number] [place] [address] CBCon 11-29-2020 HCT Canceled Normal [facility] Comment on above: Order Comment: TEST CBC WAS CANCELLED, 11/29/2020 10:53 NO SPECIMEN RECEIVED IN LAB. Performed By: #### C BC ####[id number] [place] [address] HGB Canceled Normal [facility] Comment on above: Order Comment: TEST CBC WAS CANCELLED, 11/29/2020 10:53 NO SPECIMEN RECEIVED IN LAB. Performed By: #### C BC ####[id number] [place] [address] MCHC Canceled Normal [facility] Comment on above: Order Comment: TEST CBC WAS CANCELLED, 11/29/2020 10:53 NO SPECIMEN RECEIVED IN LAB. Performed By: #### C BC ####[id number] [place] [address] MCV Canceled Normal [facility] Comment on above: Order Comment: TEST CBC WAS CANCELLED, 11/29/2020 10:53 NO SPECIMEN RECEIVED IN LAB. Performed By: #### C BC ####[id number] [place] [address] NUCLEATED RBC Canceled Normal [facility] Comment on above: Order Comment: TEST CBC WAS CANCELLED, 11/29/2020 10:53 NO SPECIMEN RECEIVED IN LAB. Performed By: #### C BC ####[id number] [place] [address] PLT Canceled Normal [facility] Comment on above: Order Comment: TEST CBC WAS CANCELLED, 11/29/2020 10:53 NO SPECIMEN RECEIVED IN LAB. Performed By: #### C BC ####[id number] [place] [address] RBC Canceled Normal [facility] Comment on above: Order Comment: TEST CBC WAS CANCELLED, 11/29/2020 10:53 NO SPECIMEN RECEIVED IN LAB. Performed By: #### C BC ####[id number] [place] [address] RDW-CV Canceled Normal [facility] Comment on above: Order Comment: TEST CBC WAS CANCELLED, 11/29/2020 10:53 NO SPECIMEN RECEIVED IN LAB. Performed By: #### C BC ####[id number] [place] [address] WBC Canceled Normal [facility] Comment on above: Order Comment: TEST CBC WAS CANCELLED, 11/29/2020 10:53 NO SPECIMEN RECEIVED IN LAB. Performed By: #### C BC ####[id number] [place] [address] BASIC METABOLIC PANELon 11-17 Anion gap [Moles/Vol] 15 mmol/L Normal 10 - 20 [facility] Comment on above: Performed By: #### B MP #### [facility] [address] [place] [address] Calcium [Mass/Vol] 9.7 mg/dL Normal 8.6 - 10.6 [facility] Comment on above: Performed By: #### B MP #### [facility] [address] [place] [address] Chloride [Moles/Vol] 99 mmol/L Normal 98 - 107 [facility] Comment on above: Performed By: #### B MP #### [facility] [address] [place] [address] Creatinine [Mass/Vol] 0.81 mg/dL Normal 0.50 - 1.30 [facility] Comment on above: Performed By: #### B MP #### [facility] [address] [place] [address] GFR- AM. >60 Normal >60 [facility] Comment on above: Result Comment: CALC ULATIONS OF ESTIMATED GFR ARE PERFORMED USING THE MDRD STUDY EQUATION FOR THE IDMS-TRACEABLE CREATININE METHODS. CLIN CHEM 2007;53:766-72 Performed By: #### B MP #### [facility] [address] [place] [address] GFR-NON AM. >60 Normal >60 [facility] Comment on above: Performed By: #### B MP #### [facility] [address] [place] [address] Glucose [Mass/Vol] 188 mg/dL High 74 - 99 [facility] Comment on above: Performed By: #### B MP #### [facility] [address] [place] [address] HCO3 (Bld) [Moles/Vol] 26 mmol/L Normal 21 - 32 [facility] Comment on above: Performed By: #### B MP #### [facility] [address] [place] [address] Potassium [Moles/Vol] 5.1 mmol/L Normal 3.5 - 5.3 [facility] Comment on above: Performed By: #### B MP #### [facility] [address] [place] [address] Sodium [Moles/Vol] 135 mmol/L Low 136 - 145 [facility] Comment on above: Performed By: #### B MP #### [facility] [address] [place] [address] Urea nitrogen [Mass/Vol] 16 mg/dL Normal 6 - 23 [facility] Comment on above: Performed By: #### B MP #### [facility] [address] [place] [address] CBCon 11-27-2020 Erythrocyte distribution width (RBC) [Ratio] 12.8 % Normal 11.5 - 14.5 [facility] Comment on above: Performed By: #### C BC #### [facility] [address] [place] [address] Hematocrit (Bld) [Volume fraction] 43.9 % Normal 41.0 - 52.0 [facility] Comment on above: Performed By: #### C BC #### [facility] [address] [place] [address] Hemoglobin (Bld) [Mass/Vol] 14.2 g/dL Normal 13.5 - 17.5 [facility] Comment on above: Performed By: #### C BC #### [facility] [address] [place] [address] MCHC (RBC) [Mass/Vol] 32.3 g/dL Normal 32.0 - 36.0 [facility] Comment on above: Performed By: #### C BC #### [facility] [address] [place] [address] MCV (RBC) [Entitic vol] 94 fL Normal 80 - 100 [facility] Comment on above: Performed By: #### C BC #### [facility] [address] [place] [address] NUCLEATED RBC 0.0 /100 WBC Normal 0.0-0.0 [facility] Comment on above: Performed By: #### C BC #### [facility] [address] [place] [address] Platelets (Bld) [#/Vol] 237 10*3/uL Normal 150 - 450 [facility] Comment on above: Performed By: #### C BC #### [facility] [address] [place] [address] RBC 4.65 x10E12/L Normal 4.50 - 5.90 [facility] Comment on above: Performed By: #### C BC #### [facility] [address] [place] [address] WBC (Bld) [#/Vol] 8.5 10*3/uL Normal 4.4 - 11.3 [facility] Comment on above: Performed By: #### C BC #### [facility] [address] [place] [address] Daily Progress Note-Orthopae thanh 11-27-2020 Daily Progress [...] advance as tolerated. Bowel regimen - dc [employer], POPM starting POD1. Scheduled tylenol. Robaxin. Continue [...] Kevin Marshall MD, PGY-2 Orthopedic Spine Team [id number] Available on [facility] Orthopedic Spine Team Kevin Marshall, PGY-2 ([id number]) Amrit Long PGY-3 ([id number]) Lambert Suarez PGY-4 ([id number]) Please call production line mechanic resident ([phone]) nights after 6pm and weekends Attestation: Note [...] Updated: 11-Dec-2020 15:25 by Bee Blackmon) Normal [facility] Laboratory - Chemistry and C hemistry - challengeon 11-27-2020 Anion gap [Moles/Vol] 15 mmol/L 10 - 20 MG- Orthopae dics-[facility] Work Phone: [phone] Calcium [Mass/Vol] 9.7 mg/dL 8.6 - 10.6 MG-Ort hopae dics-[facility] Work Phone: Chloride [Moles/Vol] 99 mmol/L 98 - 107 MG-O rthopae dics-[facility] Work Phone: CO2 [Moles/Vol] 26 mmol/L 21 [...] - 145 [facility]-Orthopae dics-[facility] Work Phone: Urea nitrogen [Mass/Vol] 16 mg/dL [...] 8.5 10*3/uL 4.4 - 11.3 MG-Ort hopae dicmel-[facility] Work Phone: No Panel Informationon 11-27 >60 >60 MG-Orthopae dics-Robbiela kendal Work Phone: Comment on above: CALCULATIONS OF LU[place] MATED GFR ARE PERFORMED USING THE MDRD STUDY EQUATION FOR THE IDMS-TRACEABLE CREATININE METHODS. CLIN CHEM 2007;53:766-72 0.0 {/100_WBC} 0.0-0.0 MG-Orthopa e dics-Robbiela kendal Work Phone: Daily Progress Note-Orthopae dicson 11-26-2020 Daily Progress Note-Orthopaedics Service: Orthopaedics Subjective [...] diet, advance as tolerated. Bowel regimen - FUNERAL CAR CHAUFFEUR, will attempt to wean POD#1. Scheduled tylenol. [...] Lambert Suarez MD Orthopedic Surgery PGY-4 Pager: [phone] Please page consult resident ([id number]) from 6pm-8am and on weekends. Attestation: Note [...] the note. I personally evaluated the patient [id number] Electronic Signatures: Bee Blackmon) (Signed 11-Dec-2020 15:23) Authored: Note Completion Co-Signer: Service, Subjective Data, Objective Data, Assessment and Plan, Note Completion Lambert Suarez (Resident)) (Signed 26-Nov-2020 14:32) Authored: Service, Subjective Data, Objective Data, Assessment and Plan, Note Completion Last Updated: 11-Dec-2020 15:23 by Bee Blackmon) Normal [facility] Discharge [id number] Discharge Profile2 Discharge Orders: Significant Events: PE: Past Medical History Deep Vein Thrombosis (DVT): Past Medical History GERD: Past Medical History hypertension: Past Medical History SARS-CoV-2 (COVID-19): Immunizations, 22-Jul-2020, [employer] COVID-19 Vacc 30 mcg/0.3ml IM Suspension SARS-CoV-2 (COVID-19): Immunizations, 01-Jul-2020, [employer] COVID-19 Vacc 30 mcg/0.3ml IM suspension Hospital Providers: Provider RoleProvider Name Bee Dinaa DNAR: DNAR Status: none Activity: activity with [...] Spine Reason for ReferralPostoperative Follow-Up Appointment Scheduled Date/[id number] 11:15 [id number] [facility] [place] [address] Phone NumberOffice: ([place], Sec.) - [phone] CommentsPlease Call Tara Gonzalez RN at [phone] For Any Post-Op Questions Electronic Signatures: Tara Gonzalez (RN) (Signed 26-Nov-2020 13:51) Authored: Discharge Orders, Appointments, Gold Form - Furnace Stock Inspector Summary Bee Blackmon) (Signed 10-Dec-2020 17:40) Co-Signer: Discharge Orders, Hospital Course (Home Care/Gold Form), Provider FINAL REVIEW of Orders, Appointments, Gold Form - Furnace Stock Inspector Summary Lambert Suarez (Resident)) (Signed 26-Nov-2020 14:34) Entered: Hospital Course (Home Care/Gold Form), Provider FINAL REVIEW of Orders Authored: Discharge Orders, Hospital Course (Home Care/Gold Form), Provider FINAL REVIEW of Orders, Appointments, Gold Form - Furnace Stock Inspector Summary Last Updated: 10-Dec-2020 17:40 by eBe Blackmon) Normal [facility] GLUCOSE-POCTon 11-26-2020 Glucose [Mass/Vol] 186 mg/dL High 74 - 99 [facility] Comment on above: Performed By: #### G BABS #### [facility] [address] [place] [address] Laboratory - Chemistry and C hemistry - challengeon 11-26-2020 Glucose [Mass/Vol] 186 mg/dL above high threshold 74 - 99 [facility] Work Phone: No Panel Informationon 11-26 Please click on the link to view the study images Normal [facility] Work Phone: Operative Reports - [facility] Operative Reports - [facility] [address] [place] [address] Patient Name: RYAN. Taylor QUINN : 1965 Date of Service: 11/26/2020 Patient Location: [place] [address] Patient Type: I Surgeon: Bee Blackmon MD [...] [employer] Decade plate. SURGEON: Bee Blackmon MD SOLUTION SALES SENIOR EXECUTIVE(S): Lambert Suarez MD ANESTHESIA: General. CLINICAL NOTE [...] confirm retractor (more content not included)... Normal [facility] Order Reconciliationon 11-26 Order Reconciliation Page [...] days, th (more content not included)... Normal [facility] Order Reconciliation Page 1 Admission Reconciliation Document Reconciliation Type: Admission from OR requested on behalf of Lambert Suarez (Resident) done by Lambert Suarez ( (Resident)) Admission from OR - Reconciliation: 26-Nov-2020 14:21 by: Lambert Suarez ( (Resident)) Home MedicationsEnteredLast Dose TakenReconciled with current Order Reconciliation Comment/ Additional Information DULoxetine 60 mg oral delayed release capsule 1 cap(s) orally once a day [id number] AM DULoxetine Delayed Release Capsule (CYMBALTA)DOSE = 60 mg Oral DailyDULoxetine 60 mg oral delayed release capsule continued as the inpatient order DULoxetine fenofibrate 48 mg oral tablet 1 tab(s) orally once a [id number]-2020 AM Reviewed and Held lisinopril 20 mg oral tablet 1 tab(s) orally once a [id number] AM Lisinopril Tablet (PRINIVIL, ZESTRIL)DOSE = 20 [...] 15 minute(s)Clinician Notes: Charmaine-operative order ONLY [facility] Patient Profile - Preop v2on 11-26-2020 Patient Profile - Preop v2 Profile: Initial Info: How to be AddressedRyan Spoken Language PreferredEnglish Stated Reason for Admissionl3-4 cage Primary Contact Name and NumberRenee, Patient Belongingssee preop checklist Medications Brought to Hospitalno General Health: Weight in kg129.7 kilogram(s) Weight in moa973.9 pound(s) Weight Methodactual (measured) Scale Typestanding Height [...] Learning Preferencesindividual instruction Cultural Considerationsnone Developmental Considerationsnone Quaker Considerationsnone Other learner availableno Falls RiskPatient location auto qualifies him/her for HIGH RISK. Are there any cultural, spiritual, zoroastrianism practices/values/needs that are important for us to [...] 26-Nov-2020 12:05 by Pat Padilla (BENI) Normal [facility] Vital Signs Date Time Vital Sign Value Performing Clinician Facility 08-18-2024 09:13-0400 Body temperature 97 [degF] [address] 08-18-2024 09:13-0400 Diastolic blood pressure 79 mm[Hg] [address] 08-18-2024 09:13-0400 Heart rate 85 /min [address] 08-18-2024 09:13-0400 Respiratory rate 16 /min [address] 08-18-2024 09:13-0400 SaO2% (BldA) [Mass fraction] 100 % [address] 08-18-2024 09:13-0400 Systolic blood pressure 136 mm[Hg] [address] 08-18-2024 07:16-0400 Body height 182.[address] 08-18-2024 07:16-0400 Body mass index (BMI) [Ratio] 37.58 kg/m2 [address] 08-18-2024 07:16-0400 Body weight 125.[address] 05-15-2024 17:25-0500 Body temperature 98.2 [degF] Kimi Weiss DO Work Phone: [facility] 05-15-2024 17:25-0500 Diastolic blood pressure 93 mm[Hg] Kimi Weiss DO Work Phone: [facility] 05-15-2024 17:25-0500 Heart rate 98 /min Kimi Weiss DO Work Phone: [facility] 05-15-2024 17:25-0500 Respiratory rate 22 /min Kimi Weiss DO Work Phone: [facility] 05-15-2024 17:25-0500 SaO2% (BldA) [Mass fraction] 100 % Kimi Weiss DO Work Phone: [facility] 05-15-2024 17:25-0500 Systolic blood pressure 153 mm[Hg] Kimi Weiss DO Work Phone: [facility] 05-15-2024 15:51-0500 Body height 182.88 cm Kimi Weiss DO Work Phone: [facility] 05-15-2024 15:51-0500 Body weight 120 kg Kimi Weiss DO Work Phone: [facility] 04-13-2024 14:18-0500 Diastolic blood pressure 75 mm[Hg] Kimi Weiss DO Work Phone: [facility] 04-13-2024 14:18-0500 Heart rate 94 /min Kimi Weiss DO Work Phone: [facility] 04-13-2024 14:18-0500 Respiratory rate 16 /min Kimi Weiss DO Work Phone: [facility] 04-13-2024 14:18-0500 SaO2% (BldA) [Mass fraction] 98 % Kimi Weiss DO Work Phone: [facility] 04-13-2024 14:18-0500 Systolic blood pressure 139 mm[Hg] Kimi Weiss DO Work Phone: [facility] 04-13-2024 12:18-0500 Body temperature 97.6 [degF] Kimi Weiss DO Work Phone: [facility] 04-13-2024 06:11-0500 Body weight 119.9 kg Kimi Weiss DO Work Phone: [facility] 04-10-2024 17:20-0500 Body height 182.88 cm Kimi Weiss DO Work Phone: [facility] 03-31-2024 10:46-0500 Body height 185.42 cm Kimi Weiss DO Work Phone: [facility] 03-31-2024 10:46-0500 Body mass index (BMI) [Ratio] 34.4 kg/m2 Kimi Weiss DO Work Phone: [facility] 03-31-2024 10:46-0500 Body temperature 97.7 [degF] Kimi Weiss DO Work Phone: [facility] 03-31-2024 10:46-0500 Body weight 118.38 kg Kimi Weiss DO Work Phone: [facility] 03-31-2024 10:46-0500 Diastolic blood pressure 88 mm[Hg] Kimi Weiss DO Work Phone: [facility] 03-31-2024 10:46-0500 Heart rate 118 /min Kimi Weiss DO Work Phone: [facility] 03-31-2024 10:46-0500 Respiratory rate 18 /min Kimi Weiss DO Work Phone: [facility] 03-31-2024 10:46-0500 SaO2% (BldA) [Mass fraction] 96 % Kimi Weiss DO Work Phone: [facility] 03-31-2024 10:46-0500 Systolic blood pressure 122 mm[Hg] Kimi Weiss DO Work Phone: [facility] 03-27-2024 09:46-0500 Body mass index (BMI) [Ratio] 34.72 kg/m2 Karon Rodriguez DISPUTE RESOLUTION SPECIALIST Work Phone: [facility] 03-27-2024 09:46-0500 Body weight 116.12 kg Karon Rodriguez DISPUTE RESOLUTION SPECIALIST Work Phone: [facility] 03-27-2024 09:46-0500 Diastolic blood pressure 96 mm[Hg] Karon Rodriguez DISPUTE RESOLUTION SPECIALIST Work Phone: [facility] 03-27-2024 09:46-0500 Heart rate 82 /min Karon Rodriguez DISPUTE RESOLUTION SPECIALIST Work Phone: [facility] 03-27-2024 09:46-0500 Systolic blood pressure 148 mm[Hg] Karon Rodriguez DISPUTE RESOLUTION SPECIALIST Work Phone: [facility] 09-15-2023 10:11-0400 Body height 184.15 cm DO Kimi Weiss Work Phone: [facility] 09-15-2023 10:11-0400 Body mass index (BMI) [Ratio] 35.2 kg/m2 DO Kimi Weiss Work Phone: [facility] 09-15-2023 10:11-0400 Body weight 119.29 kg DO Kimi Weiss Work Phone: [facility] 09-07-2023 10:35-0400 Diastolic blood pressure 98 mm[Hg] DO Kimi Weiss Work Phone: [facility] 09-07-2023 10:35-0400 Heart rate 102 /min DO Kimi Weiss Work Phone: [facility] 09-07-2023 10:35-0400 Respiratory rate 20 /min DO Kimi Weiss Work Phone: [facility] 09-07-2023 10:35-0400 SaO2% (BldA) [Mass fraction] 96 % DO Kimi Weiss Work Phone: [facility] 09-07-2023 10:35-0400 Systolic blood pressure 160 mm[Hg] DO Kimi Weiss Work Phone: [facility] 09-07-2023 10:00-0400 Inhaled oxygen flow rate 3 L/min DO Kimi Weiss Work Phone: [facility] 09-07-2023 09:19-0400 Body height 182.88 cm DO Kimi Weiss Work Phone: [facility] 09-07-2023 09:19-0400 Body weight 120.2 kg DO Kimi Weiss Work Phone: [facility] 09-16-2021 14:17-0400 Body mass index (BMI) [Ratio] 34.45 kg/m2 Kimi Santos Abhishek Work Phone: OQ-Zqpmhnf-Sbsvz [facility] [address] Work Phone: 09-16-2021 14:17-0400 Body surface area Derived from formula 2.36 m2 Kimi Weiss Work Phone: VA-Rlfclnz-Lpmyb [facility] [address] Work Phone: 09-16-2021 14:17-0400 Body weight 115.21 kg Kimi Weiss Work Phone: WK-Wqxmtfq-Nqalg [facility] Work Phone: 07-23-2021 09:45-0400 Body height 184.15 cm Charles Suzannadelma Other [employer] Other 07-23-2021 09:45-0400 Body mass index (BMI) [Ratio] 34.51 kg/m2 Charles Suzannadelma Other [employer] Other 07-23-2021 09:45-0400 Body weight 117.03 kg Charles Suzannadelma Other [employer] Other 06-18-2021 14:17-0500 Body mass index (BMI) [Ratio] 36.75 kg/m2 Kimi Weiss Work Phone: WO-Rybbgrf-Kzwdi [facility] [address] Work Phone: 06-18-2021 14:17-0500 Body surface area Derived from formula 2.42 m2 Kimi Weiss Work Phone: XP-Jdwzjuc-Mduhg [facility] [address] Work Phone: 06-18-2021 14:17-0500 Body weight 122.93 kg Kimi Weiss Work Phone: FX-Gtxuzga-Vvbbp [facility] Work Phone: 04-23-2021 09:49-0500 Body height 182.88 cm Kimi Weiss Work Phone: EP-Bicpnfp-Yyity [address] Work Phone: 04-23-2021 09:49-0500 Body mass index (BMI) [Ratio] 39.6 kg/m2 Kimi Santos Abhishek Work Phone: QZ-Lxfqsiv-Dcxed [facility] [address] Work Phone: 04-23-2021 09:49-0500 Body surface area Derived from formula 2.5 m2 Kimi Weiss Work Phone: HV-Dkyugjz-Huzkw [facility] [address] Work Phone: 04-23-2021 09:49-0500 Body weight 132.45 kg Kimi Weiss Work Phone: FN-Mvujapa-Rmkso [address] Work Phone: 04-02-2021 09:45-0500 Body height 184.15 cm Charles Claros Other [employer] Other 04-02-2021 09:45-0500 Body mass index (BMI) [Ratio] 35.44 kg/m2 Charles Claros Other [employer] Other 04-02-2021 09:45-0500 Body weight 120.2 kg Charles Claros Other [employer] Other Encounters Encounter Date Encounter Type Care Provider Facility Start: 09-21-2024 End: 09-21-2024 Office outpatient visit 15 minutes Radha Gates MD Work Phone: [facility] Comment on above: Postlaminectomy synd lorena, lumbar region (Primary Dx); Lumbar radiculopathy, chronic Start: 09-21-2024 End: 09-21-2024 ambulatory RADHA Santos GATES [facility] Start: 09-13-2024 End: 09-13-2024 ambulatory [facility] Work Phone: Start: 09-13-2024 End: 09-13-2024 Patient encounter procedure [facility] Work Phone: Start: 08-18-2024 End: 08-18-2024 ambulatory NICOLETTEO P [facility] Start: 08-18-2024 End: 08-18-2024 Subsequent hospital visit by physician Homero Chavis MD Work Phone: [facility] [place] Comment on above: Lumbar radiculopathy , chronic; Postlaminectomy syndrome, lumbar region Start: 08-16-2024 End: 08-16-2024 Bamboo flowsheet Bethany Tay DISPUTE RESOLUTION SPECIALIST Work Phone: [facility] Start: 08-16-2024 End: 08-16-2024 Bamboo flowsheet Bethany Tenaoll DISPUTE RESOLUTION SPECIALIST Work Phone: [facility] Start: 08-16-2024 End: 08-16-2024 Office outpatient visit 15 minutes Bethany Tenaoll DISPUTE RESOLUTION SPECIALIST Work Phone: [facility] Comment on above: Chronic cluster head ache, not intractable (Primary Dx); Essential hypertension (CMS/HCC); History of blood clots; Lumbar radiculopathy Start: 08-16-2024 End: 08-16-2024 ambulatory BETHANY CROSS Not Available Start: 08-03-2024 End: 08-03-2024 Office outpatient visit 25 minutes Radha Gates MD Work Phone: [facility] Comment on above: Lumbar radiculopathy , chronic (Primary Dx); Postlaminectomy syndrome, lumbar region Start: 08-03-2024 End: 08-03-[address] [facility] Start: 07-20-2024 ambulatory Kimi Almazani ty:[facility] Start: 07-13-2024 End: 07-13-2024 Subsequent hospital visit by physician Keri Chavez 2 [facility] Comment on above: Postlaminectomy synd lorena, lumbar region Start: 07-13-2024 End: 07-13-2024 ambulatory [facility] Start: 06-22-2024 End: 06-22-2024 Office consultation new/estab patient 60 min Radha Gates MD Work Phone: [facility] Comment on above: Postlaminectomy synd lorena, lumbar region (Primary Dx); Lumbar radiculopathy, chronic Start: 06-22-2024 End: 06-22-[address] [facility] Start: 06-09-2024 ambulatory Kimi Weiss Facili [facility]: [facility] Start: 05-29-2024 ambulatory Kimi Weiss Facili ty: [facility] Start: 05-22-2024 ambulatory Kimi Weiss Facili ty:[facility] Start: 05-19-2024 ambulatory Kimi Weiss Facili ty: [facility] Start: 05-15-2024 End: 05-15-2024 Emergency department patient visit Kimi Weiss DO Work Phone: [facility] Work Phone: Start: 05-10-2024 End: 05-10-2024 ambulatory Kimi Weiss Facility:[facility] Start: 05-10-2024 End: 05-10-2024 ambulatory Kimi Weiss Facility: [facility] Start: 04-18-2024 End: 04-18-2024 ambulatory Kimi Weiss Facility: [facility] Start: 04-17-2024 ambulatory Kimi Weiss Facili ty: [facility] Start: 04-11-2024 Non-patient / Non-visit Kimi Weiss DO Work Phone: [facility] Work Phone: Start: 04-10-2024 End: 04-13-2024 ambulatory Wendy [facility] Facility:[facility] Start: 04-10-2024 End: 04-13-2024 Evaluation and management of inpatient Kimi Weiss DO Work Phone: [facility] Work Phone: Start: 04-10-2024 End: 04-10-2024 ambulatory Kimi Weiss Facility: [facility] Start: 04-08-2024 Non-patient / Non-visit Kimi Weiss DO Work Phone: [facility] Work Phone: Start: 04-07-2024 Non-patient / Non-visit Kimi Weiss DO Work Phone: [facility] Work Phone: Start: 04-06-2024 Non-patient / Non-visit Kimi Weiss DO Work Phone: [facility] Work Phone: Start: 04-03-2024 End: 04-03-2024 ambulatory Kimi Weiss Facility: [facility] Start: 04-02-2024 Non-patient / Non-visit Kimi Weiss DO Work Phone: [facility] Work Phone: Start: 03-31-2024 End: 03-31-2024 Patient encounter procedure Kimi Weiss DO Work Phone: [facility] Work Phone: Start: 03-27-2024 End: 03-27-2024 Bamboo flowsheet Karon Rodriguez DISPUTE RESOLUTION SPECIALIST Work Phone: [facility] Start: 03-27-2024 End: 03-27-2024 Bamboo flowsheet Karon Rodriguez DISPUTE RESOLUTION SPECIALIST Work Phone: [facility] Start: 03-27-2024 End: 03-27-2024 Office outpatient visit 25 minutes Karon Rodriguez DISPUTE RESOLUTION SPECIALIST Work Phone: [facility] Comment on above: Chronic cluster head ache, not intractable (Primary Dx); Essential hypertension (CMS/HCC); History of blood clots Start: 03-27-2024 End: 03-27-2024 ambulatory KARON RODRIGUEZ Not Available Start: 03-07-2024 [facility] Start: 02-21-2024 End: 02-21-2024 ambulatory Kimi Weiss Facility: [facility] Start: 02-07-2024 End: 02-07-2024 ambulatory Kimi Weiss Facility:[facility] Start: 01-17-2024 End: 01-17-2024 Office outpatient visit 15 minutes Bee Blackmon MD Work Phone: [facility] Comment on above: Postlaminectomy synd lorena, lumbar region (Primary Dx) Start: 01-17-2024 End: 01-17-2024 ambulatory BEE BLACKMON [facility] Start: 01-03-2024 End: 01-03-2024 ambulatory Kimi Weiss Facility:[facility] Start: 11-30-2023 End: 11-30-2023 ambulatory KARON RODRIGUEZ Not Available Start: 09-15-2023 End: 09-15-2023 ambulatory DO Kimi Weiss Work Phone: [facility] Work Phone: Start: 09-15-2023 End: 09-15-2023 Patient encounter procedure DO Kimi Weiss Work Phone: [facility] Work Phone: Start: 09-07-2023 Non-patient / Non-visit DO Mike Weiss Work Phone: [facility] Work Phone: Start: 09-07-2023 End: 09-07-2023 Admission to same day surgery center DO Kimi Weiss Work Phone: [facility] Work Phone: Start: 09-07-2023 End: 09-07-2023 ambulatory DO Kimi Weiss Work Phone: [facility] Work Phone: Start: 08-05-2023 End: 08-05-2023 ambulatory [facility] Work Phone: Start: 08-05-2023 End: 08-05-2023 Patient encounter procedure [facility] Work Phone: Start: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 Date/Time: 05/30/2024 10:46:00 EST Caller Name: BERNABE LYLY HAUSER; Caller Number: , From: [facility] #[id number] To: Kimi Weiss DO Sent: May 29, 2024 9:46:45 AM REPAIRER ART OBJECTS Subject: Medication Management Due: May 30, 2024 12:03:26 AM REPAIRER ART OBJECTS On Hold Pending Signature Dispensed Drug: glyBURIDE (glyBURIDE micronized 3 mg oral tablet), TAKE 1 TABLET BY MOUTH DAILY Quantity: 90 tab(s) Days Supply: 90 Refills: 0 Substitutions Allowed Notes from Pharmacy: Patient requests 90 days supply From: Kimi Weiss DO To: [facility] #[id number] Sent: 05/29/2024 11:15:07 EST Subject: FW: Medication Management Submitted: Complete:glyBURIDE (glyBURIDE micronized 3 mg oral tablet) Signed by Kimi Weiss DO 05/29/2024 11:15:00 EST Approved glyBURIDE (GLYBURIDE MICRO 3MG TABLETS) TAKE 1 TABLET BY MOUTH DAILY Qty: 90 tab(s) Days Supply: 90 Refills: 0 Substitutions Allowed Route To Pharmacy - [facility] #[id number] Note from Pharmacy: Patient requests 90 days supply [facility] 05-12-2024 Note - From: Court Pineda MA ([facility] ([facility])) To: Kimi Weiss DO; Sent: 05/12/2024 07:39:16 EST Subject: FW: Medication Management Due Date/Time: 05/13/2024 03:26:00 EST Caller Name: LYLY QUINN; Caller Number: , last visit: 05-10-24 next visit: 05-29-24 From: [facility] #[id number] To: Kimi Weiss DO Sent: May 12, 2024 2:26:59 AM REPAIRER ART OBJECTS Subject: Medication Management Due: May 13, 2024 12:03:47 AM REPAIRER ART OBJECTS On Hold Pending Signature Dispensed Drug: semaglutide (Ozempic (1 mg dose) 4 mg/3 mL subcutaneous solution), INJECT 1 MG UNDER THE SKIN EVERY 7 DAYS Quantity: 3 mL Days Supply: 28 Refills: 0 Substitutions Allowed Notes from Pharmacy: From: Kimi Weiss DO To: [facility] #[id number] Sent: 05/12/2024 07:44:16 EST Subject: FW: Medication Management Submitted: Complete:semaglutide (Ozempic (1 mg dose) 4 mg/3 mL subcutaneous solution) Signed by Kimi Weiss DO 05/12/2024 07:44:00 EST Approved with modifications: semaglutide (OZEMPIC 1MG PER DOSE (4MG/3ML) PFP) INJECT 1 MG UNDER THE SKIN EVERY 7 DAYS Qty: 3 mL Days Supply: 28 Refills: 0 Substitutions Allowed Route To Pharmacy - [facility] #[id number] [facility] [facility] Evaluation note Diagnosis Onset Date Resolution Acute lower respiratory infection acute March 31 024 9:23am Chest pain resolved April 10, 2024 3:49pm [facility] Work Phone: 1(167) 652-257712-09-2024 Note From: Whitney Jordan RN ([facility] ([facility])) To: Mariah Machado CNP; Sent: 03/27/2024 07:29:10 EST Subject: FW: Medication Management Due Date/Time: 03/27/2024 08:58:00 EST Caller Name: LYLY QUINN; Caller Number: , From: [facility] #[id number] To: Kimi Weiss DO Sent: March 25, 2024 7:58:45 AM REPAIRER ART OBJECTS Subject: Medication Management Due: March 26, 2024 12:30:42 AM REPAIRER ART OBJECTS On Hold Pending Signature Dispensed Drug: ONE [...] 0 Substitutions Allowed Notes from Pharmacy: Submitted: Order:!-[facility] Request. (ONE TOUCH VERIO FLEX BG MONITOR) See Instructions USE DIRECTED DAILY Qty: 1 EA Days Supply: 30 Refills: 0 Substitutions Allowed Route To Pharmacy - [facility] #[id number] Signed by Mariah Machado APRN, CNP 03/27/2024 10:48:00 EST Not Approved: [facility]. (ONE TOUCH VERIO FLEX BG MONITOR) USE DIRECTED DAILY Qty: 1 EA Days Supply: 30 Refills: 0 Substitutions Allowed Route To [facility] #[id number] Signed by Mariah Machado APRN, CNP From: Mariah Machado APRN, CNP To: [facility] #[id number] Sent: 03/27/2024 10:48:58 EST Subject: FW: Medication [...] 90 Refills: 1 Substitutions Allowed Route To [facility] #[id number] Signed by Mariah Machado APRN, CNP Approved with modifications: fenofibrate (FENOFIBRATE 48MG TABLETS) TAKE 1 TABLET BY MOUTH DAILY Qty: 90 tab(s) Days Supply: 90 Refills: 1 Substitutions Allowed Route To [facility] #[id number] Signed by Mariah Machado APRN, CNP Approved with modifications: rivaroxaban (XARELTO 20MG TABLETS) TAKE 1 TABLET BY MOUTH DAILY Qty: 90 tab(s) Days Supply: 90 Refills: 1 Substitutions Allowed Route To [facility] #[id number] Signed by Mariah Machado APRN, CNPAvita Health System Gal[facility] [id number] History of Present illness Narrative* Karon Rodriguez, SABRINA - 03/27/2024 9:40 AM EST Images from [...] a new pain management provider at the [facility] soon. He denies any further concerns today. [...] headache syndrome 04/22/2011 DVT (deep venous thrombosis) ([facility]) Encounter for long-term (current) drug use 09/10/2011 Pulmonary embolism ([facility]) Past Surgical History: Procedure Laterality Date [...] wrist extensors , wrist flexor , and nitrocellulose maker strength 5/5. LUE strength deltoid , biceps , triceps , wrist extensors , wrist flexor , and nitrocellulose maker strength 5/5. RLE strength illopsoas, quadriceps, tibialis [...] knee reflex 0. Brooke's sign negative Coordination: Nnbmzq-kf-gxio testing normal. Rapid alternating movements are normal [...] of the lumbar spine w/o contrast at [facility] () on 05/12/22: Status post interbodyspacer [...] without aura without status migrainosus, not intractable ([facility]) See above. Essential hypertension ([facility]) PLAN: - Follow closely with primary [...] detail. All questions answered. documented in this encounterSaint [facility]–Sm[id number] Note From: Whitney Jordan RN ([facility] ([facility])) To: Mariah Machado CNP; Sent: 03/20/2024 07:25:53 EST Subject: FW: Medication Management Due Date/Time: 03/20/2024 03:27:00 EST Caller Name: LYLY QUINN; Caller Number: Alexander , Oral From: [employer] #[id number] To: Kimi Weiss DO Sent: March 18, 2024 2:27:30 AM REPAIRER ART OBJECTS Subject: Medication Management Due: March 19, 2024 1:11:06 AM REPAIRER ART OBJECTS On Hold Pending Signature Dispensed Drug: DULoxetine [...] 0 Substitutions Allowed Route To Pharmacy - [facility] #[id number] Signed by Mariah Machado APRN, CNP 03/20/2024 09:22:00 EST Not Approved: New Rx to follow !-[facility] Request. (ONE TOUCH VERIO FLEX BG MONITOR) USE DIRECTED DAILY Qty: 1 EA Days Supply: 30 Refills: 0 Substitutions Allowed Route To Pharmacy [facility] #[id number] Signed by Mariah Machado APRN, CNP From: Mariah Machado APRN, CNP To: [facility] #[id number] Sent: 03/20/2024 09:23:45 EST Subject: FW: Medication [...] 90 Refills: 0 Substitutions Allowed Route To [facility] #[id number] Signed by Mariah Machado APRN, CNP Approved with modifications: lisinopril (LISINOPRIL 20MG TABLETS) TAKE 1 TABLET BY MOUTH DAILY Qty: 90 tab(s) Days Supply: 90 Refills: 0 Substitutions Allowed Route To [facility] #[id number] Signed by Mariah Machado APRN, CNPAvita Health System Galion [id number] Note From: Whitney Jordan RN ([facility] ([facility])) To: Kimi Weiss DO; Sent: 02/08/2024 08:11:19 EDT Subject: FW: Medication Management Due Date/Time: 02/08/2024 17:02:00 EDT Caller Name: LYLY QUINN; Caller Number: H , From: [employer] #[id number] To: Kimi Weiss DO Sent: February 07, 2024 4:02:35 PM CDT Subject: Medication Management Due: February 08, 2024 12:04:07 AM CDT On Hold Pending Signature Dispensed Drug: metFORMIN (metFORMIN 500 mg oral tablet), TAKE 1 TABLET BY MOUTH TWICE DAILY Quantity: 180 tab(s) Days Supply: 90 Refills: 0 Substitutions Allowed Notes from Pharmacy: Patient requests 90 days supply From: Kimi Weiss DO To: [facility] #[id number] Sent: 02/08/2024 09:31:55 EDT Subject: FW: Medication Management Submitted: Complete:metFORMIN (metFORMIN 500 mg oral tablet) Signed by Kimi Weiss DO 02/08/2024 09:31:00 EDT Approved metFORMIN (METFORMIN 500MG TABLETS) TAKE 1 TABLET BY MOUTH TWICE DAILY Qty: 180 tab(s) Days Supply: 90 Refills: 0 Substitutions Allowed Route To Pharmacy - [facility] #[id number] Note from Pharmacy: [facility] 01-[facility] History of Present illness Narrative* [...] been working with pain management locally in [place] but they have just been doing epidural [...] spelling or grammatical errors* documented in [facility] Work Phone: 1(961) 445-102205-21-2024 [facility]* Encounter Date Diagnosis Assessment Notes Treatment Notes Treatment Clinical Notes Apr, Lumbar back sprain (ICD-10 - S33.5XXA) [facility] Other 12-14-2023 Evaluation note* Encounter Date Diagnosis Assessment Notes Treatment Notes Treatment Clinical Notes Mar, Chronic, continuous use of opioids (ICD-10 - F11.90) [facility] Other 12-14-2023 Evaluation note* Encounter Date Diagnosis [...] note writ ten by Lawanda Yuen RN, Sales Planning Coordinator. Edited and approved by Dr. Charles Claros MD. [employer] Other 10-05-2023 Evaluation note* Encounter Date Diagnosis [...] note writ ten by Doris Weiss LPN, Sales Planning Coordinator. Edited and approved by Dr. Charles Claros MD. [employer] Other 10-05-2023 Evaluation note* Encounter Date Diagnosis Assessment Notes Treatment Notes Treatment Clinical Notes Jan, Lumbar back sprain (ICD-10 - S33.5XXA) [employer] Other 06-20-2023 Evaluation note* Encounter Date Diagnosis [...] to patients condition. Saliva sample performed through [facility] today, will await confirmatory results. Sep, Other chronic pain (ICD-10 - G89.29) Sep, Other Above note writ ten by Doris Weiss LPN, Sales Planning Coordinator. Edited and approved by Dr. Charles Claros MD. [employer] Other 06-20-2023 Evaluation note* Encounter Date Diagnosis Assessment Notes Treatment Notes Treatment Clinical Notes Sep, Lumbar back sprain (ICD-10 - S33.5XXA) [employer] Other 02-13-2023 Evaluation note* Encounter Date Diagnosis [...] note writ ten by Dutch Taylor MA, Sales Planning Coordinator. Edited and approved by Dr. Charles Claros MD. [employer] Other 02-13-2023 Evaluation note* Encounter Date Diagnosis Assessment Notes Treatment Notes Treatment Clinical Notes May, Lumbar back sprain (ICD-10 - S33.5XXA) [employer] Other 11-02-2022 Evaluation note* Encounter Date Diagnosis [...] note writ ten by Doris Weiss LPN, Sales Planning Coordinator. Edited and approved by Dr. Charles Claros MD. [employer] Other 11-02-2022 Evaluation note* Encounter Date Diagnosis Assessment Notes Treatment Notes Treatment Clinical Notes Feb, Lumbar back sprain (ICD-10 - S33.5XXA) [employer] Other 08-29-2022 Evaluation note* Encounter Date Diagnosis [...] note writ ten by Doris Weiss LPN, Sales Planning Coordinator. Edited and approved by Dr. Charles Claros MD. [employer] Other 05-31-2022 Chief complaint Narrative - Reported* An interactive audio and video telecommunication system which permits real time communications between the patient (at the originating site) and provider (at the distant site) was utilized to providethis telehealth service. * Verbal consent was requested and obtained from LYLY QUINN on this date, 09/16/2021 02:15 PM , for atelehealth visit. [facility]cklqh[facility]Vzkl[facility] Work Phone: 1(252) [phone] Evaluation note* Encounter Date Diagnosis Assessment Notes [...] note writ ten by Dutch Taylor CMA, Sales Planning Coordinator. Edited and approved by Dr. Charles Claros MD. [employer] Other 03-02-2022 Chief complaint Narrative - Reported* An interactive audio and video telecommunication system which permits real time communications between the patient (at the originating site) and provider (at the distant site) was utilized to providethis telehealth service. * Verbal consent was requested and obtained from LYLY QUINN on this date, 06/18/2021 02:15 PM , for atelehealth visit. [facility] Work Phone: 1(662) 229-936101-05-2022 Chief complaint Narrative - Reported* An interactive audio and video telecommunication system which permits real time communications between the patient (at the originating site) and provider (at the distant site) was utilized to providethis telehealth service. * Verbal consent was requested and obtained from LYLY QUINN on this date, 04/23/2021 10:00 AM , for atelehealth visit. [facility]Ewvnqka-Ootyy [facility] Work Phone: 1(101) [phone] Chief complaint Narrative - Reported* An interactive audio and video telecommunication system which permits real time communications between the patient (at the originating site) and provider (at the distant site) was utilized to providethis telehealth service. * Verbal consent was requested and obtained from LYLY QUINN on this date, 04/23/2021 10:00 AM , for atelehealth visit. BQ-Npuhfumexiqxsceg-Ovfuy Shefali GONZALEZ Work Phone: 1(815) 743-417712-15-2021 Evaluation note* Encounter Date Diagnosis Assessment Notes [...] note writ ten by Lawanda Yuen CMA, Sales Planning Coordinator. Edited and approved by Dr. Charles Claros MD. [employer] Other 10-20-2021 Evaluation note* Encounter Date Diagnosis [...] note writ ten by Dutch Taylor MA, Sales Planning Coordinator. Edited and approved by Dr. Charles Claros MD. [employer] Other 08-10-2021 NoteSend Summary: Discharge Summary Providers: Provider RoleProvider Name Kimi Alarcon Zachary Note Recipients: Bee Blackmon MD Jackson, Steven P, DO - [phone] [] Discharge: Summary: Admission Date: .26-Nov-2020 10:44:00 [...] visit. Immunizations: Immunizations: 19-Nov-2020 SARS-CoV-2 (COVID-19): Immunizations, [employer] COVID-19 Vacc 30 mcg/0.3ml IM suspension, 01-Jul-2020 SARS-CoV-2 (COVID-19): Immunizations, [employer] COVID-19 Vacc 30 mcg/0.3ml IM Suspension, 22-Jul-2020 [...] Follow-Up Appointment Scheduled Date/Time: 09-Dec-2020 11:15 Location: [address] [place] [address] OFFICE [address], Phone Number: Office: [place], ) - [phone] Discharge Medications: Home Medication lisinopril 20 mg [...] Dx: acute post-operative pain (more content not included)...[facility]08-10-2021 NotePost Operative Note: PreOp Diagnosis: lumbar stenosis with radiculopathy Post-Procedure Diagnosis: same as preop Procedure: 1. L3-4 XLIF 2. 3. 4. 5. Surgeon: Neymar Resident/Fellow/Other Gear And Spline Grinder: Daniela Anesthesia: GETA Estimated Blood Loss (mL): [...] Completion Last Updated: 10-Dec-2020 17:38 by Bee Blackmon)[facility]08-10-2021 NotePreop Checklist: Preop Checklist: Procedure TypeL3-4 lateral lumbar fusion with instrumentation Temperature C36.4 degrees C Temperature F97.5 degrees F Heart Rate92 beats per minute Respiratory Rate16 breath per minute Blood Pressure Glkxwksu293 mm/Hg Blood Pressure Oqkqcywax19 mm/Hg NPO [id number] 22:00 ID Band Onyes Allergy Bandno known [...] Last Updated: 26-Nov-2020 12:09 by Pat Padilla (RN)[facility]08-10-2021 NoteHistory & Physical Reviewed: I have [...] the note. I personally evaluated the patient [id number] Electronic Signatures: Bee Blackmon) (Signed 09-Dec-2020 19:41) Authored: Note Completion Co-Signer: History & Physical Reviewed, ERAS, Consent, Note Completion Kevin Marshall (Resident)) (Signed 26-Nov-2020 05:52) Authored: History & Physical Reviewed, ERAS, Consent, Note Completion Last Updated: 09-Dec-2020 19:41 by Bee Blackmon)[facility]05-05-2021 Evaluation note* Lymphatic: No significant lymphadenopathyNeurological: A&Wa0Ftcznqpwwccgffml: Soft, ntndCardiovascular: RRR by peripheral pulsesPsychological: Appropriate mood and behaviorRespiratory/Thorax: Breathing normally on RAHead/Neck: Neck supple, trachea midlineEyes: EOMI, clear scleraSkin: Warm and dry, no rashesMusculoskeletal: L1: SILTL2: SILT Hip flexors 5/5 Right; 5/5 LeftL3: SILT Knee extension 5/5 Right; 5/5 LeftL4: SILT Tib Ant. (Dorsiflexion) 5/5 Right; 5/5 LeftL5: SILT EHL 5/5 Right; 5/0NxjeR4: SILT Planter flexion 5/5 Right; 5/5 LeftConstitutional: Awake/alert/oriented x3, no distress, alert and cooperative [facility]02-01-2020 History of Present illness Narrative* 55-year-old [...] He was evaluated by another surgeon in [facility], they did recommend surgery however he has a history involving multiple DVTs and pulmonary embolism. After his last operation he was not bridged preoperatively on Lovenox, and he did not receive any anticoagulation until 2 weeks after surgery. Despite having an IVC filter in place he through another pulmonary embolism. He follows up with a window sash installer in [place]. * He is otherwise in good health. [...] 26. I have reached out to his window sash installer to confirm plans for perioperative anticoagulation. He is fully vaccinated for COVID-19. * This note was dictated using speech recognition software and was not corrected for spelling or grammatical errors. PE[facility]Fpsynefkskga-Jewpmv Work Phone: 1(592) 459-237902-01-2020 History of Present illness Narrative* 55-year-old male [...] He was evaluated by another surgeon in [facility], they did recommend surgery however he has a history involving multiple DVTs and pulmonary embolism. After his last operation he was not bridged preoperatively on Lovenox, and he did not receive any anticoagulation until 2 weeks after surgery. Despite having an IVC filter in place he through another pulmonary embolism. He follows up with a window sash installer in [place]. * He is otherwise in good health. [...] 26. I have reached out to his window sash installer to confirm plans for perioperative anticoagulation. He is fully vaccinated for COVID-19. * This note was dictated using speech recognition software and was not corrected for spelling or grammatical errors. [facility] Work Phone: 1([phone]) 576-122001-06-2019 History of Present illness Narrative* Patient is [...] not corrected for spelling or grammatical errors. [facility] Work Phone: 1([phone]) [phone] History of Present illness Narrative* Patient is [...] not corrected for spelling or grammatical errors. [facility] Work Phone: 1([phone]) 334-199711-22-2018 History of Present illness Narrative* Patient is [...] not corrected for spelling or grammatical errors. [facility]Bscfanzhhwkr[facility]Yeip[facility]ue Work Phone: Evaluation note* Diagnosis Onset Date Resolution Status Chronic pain acute Chronic, continuous use of opioids acute Other spondylosis with radiculopathy, lumbar region acute [facility] Work Phone: Evaluation note* Diagnosis Onset Date Resolution Status Chronic pain acute Chronic, continuous use of opioids acute Other spondylosis with radiculopathy, lumbar region acute Chronic pain acute Chronic, continuous use of opioids acute Other spondylosis with radiculopathy, lumbar region acute [facility] Work Phone: Evaluation note* Diagnosis Chronic cluster headache, not intractable- Primary Essential hypertension (CMS/HCC) Unspecified essential hypertension History of blood clots documented in this encounter [facility] HealthcareEvaluation [facility]* Diagnosis Postlaminectomy syndrome, lumbar region- Primary documented in this encounter [facility] Work Phone: Evaluation note* Diagnosis Postlaminectomy syndrome, lumbar region- Primary Lumbar radiculopathy, chronic documented in this encounter [facility] Work Phone: Evaluation note* Diagnosis Postlaminectomy syndrome, lumbar region documented in this encounter [facility] Work Phone: Evaluation note* Diagnosis Lumbar radiculopathy, chronic- Primary Postlaminectomy syndrome, lumbar region documented in this encounter [facility] Work Phone: Evaluation note* Diagnosis Lumbar radiculopathy, chronic Postlaminectomy syndrome, lumbar region documented in this encounter [facility] Work Phone: Evaluation note* Diagnosis Chronic cluster headache, not intractable- Primary Essential hypertension (CMS/HCC) Unspecified essential hypertension History of blood clots Lumbar radiculopathy Thoracic or lumbosacral neuritis or radiculitis, unspecified documented in this encounter [facility] HealthcareEvaluation note* Diagnosis Onset Date Resolution Status Admit Date Chronic pain acute September 13 8:55am Chronic, continuous use of opioids a cute September 13, 2024 8:55am Other spondylosis with radiculopathy, lumbar region acute September 13, 2024 8:55am [facility] Work Phone: Evaluation note* Diagnosis Postlaminectomy syndrome, lumbar region- Primary Lumbar radiculopathy, chronic documented in this encounter [facility] Work Phone: History general Narrative - [...] dr) Hospitalization History pulmonary embolism 2 alfa es [employer] Other History of Present illness Narrative* Patient [...] not corrected for spelling or grammatical errors WI-Hiypcmqyvzys-Wzmljodt Work Phone: History of Present illness Narrative* [...] * Lives with: Spouse * 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[employer] * Sleep patterns: 8hrs YANNI on CPAP * Alcohol: 1-2 on the weekends * Tobacco: None * Recreational Drugs: None * Exercise: Therapy for back 2 x weekly IL-Oqoxzph-Ulxei [facility] Work Phone: History of Present [...] and V8 * L - yogurt, granola (slovenian yogurt, 1/4 cup granola), cream of corn 1 cup * Snack - pop corner 100 calorie bag * D - veggie burger with luxembourger cheese & onion (2 burgers) low calorie [...] * Lives with: Spouse * 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 * Sleep patterns: 8hrs YANNI on CPAP * Alcohol: 1-2 on the weekends * Tobacco: None * Recreational Drugs: None * Exercise: Therapy for back 2 x weekly CP-Twvluqf-Gcsoc [facility] [address] Work Phone: History of Present [...] not corrected for spelling or grammatical errors. SY-Vkfjoumawspz-Wcbumjpr Work Phone: History of Present illness Narrative* [...] * Lives with: Spouse * 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 * Sleep patterns: 8hrs YANNI on CPAP * Alcohol: 1-2 on the weekends * Tobacco: None * Recreational Drugs: None * Exercise: Therapy for back 2 x weekly LD-Jlejpxhrgozusubt-Didsu Shefali GONZALEZ Work Phone: History of Present illness Narrative* 56 year old M presenting for weight management follow up. * Continued topiramate as adjunct to diet/exercise last visit. * Diet Recall: * B - cup of coffee (black) V8 juice * L - [place] (low calorie tortilla) turkey with salad [...] * Lives with: Spouse * 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 * Sleep patterns: 8hrs YANNI on CPAP * Alcohol: 1-2 on the weekends * Tobacco: None * Recreational Drugs: None AH-Irckjve-Kdguj [facility] [address] Work Phone: History of Present [...] not corrected for spelling or grammatical errors. AK-Qnuspbtntltj-Gyjrkfrl Work Phone: History of Present illness Narrative* [...] is going to do this in the [facility], we will have them push the results to PACS. He shouldcall the office for the results of the MRI. * In the meantime I am going to put him on some prednisone. * I will speak with him after the MRI is complete. * This note was dictated using speech recognition software and was not corrected for spelling or grammatical errors. EA-Vphznmvxzsbq-Yeowrwsy Work Phone: Hospital Discharge instructions* Activity:activity with [...] Postoperative Follow-Up AppointmentScheduled Date/Time: 09-Dec-2020 11:15Location: [address], [phone] Number: Office: Sec. Almas) - [phone]: Please Call Tara Gonzalez RN at [phone] For Any [facility]-Op Questions [facility] Additional Instructions If your symptoms return/worsen or you develop any further concerns or symptoms please see your doctor or return to the emergency department immediately.[facility] Work Phone: Reason for referral (narrative)* Reason for Referral: L3-4 fusion [facility] for visit Narrative* Imaging (Routine) - Authorized Specialty Diagnoses / Procedures Referred By Contac t Referred To Contact Radiology Diagnoses Postlaminectomy syndrome, lumbar region Procedures [place] [address] [address] [facility] [place] [address] Phone: tel: fax: Referral ID Status Reason Start Date Expiration Date Visits Requested Visits Authorized [id number] Authorized Perform Procedure 06/22/2024 06/22/2025 1 1 [facility] Work Phone: Reason for visit Narrative* Imaging (Routine) - Authorized Specialty Diagnoses / Procedures Referred By Contac t Referred To Contact Radiology Diagnoses Lumbar radiculopathy, chronic Postlaminectomy syndrome, lumbar region [place] [address] [employer] [facility] [place] [address] Phone: tel: fax: Referral ID Status Reason Start Date Expiration Date Visits Requested Visits Authorized [id number] Authorized Perform Procedure 08/03/2024 08/03/2025 1 1 [facility] Work Phone: Chief Complaint * A telephone visit (audio [...] Visit Admit Date Acute lower respiratory infection [facility] er 2023 9:23am Chest pain April 10, 2024 3:49pm Chief Complaint Admit Date RECHECK September 13, 2024 8:55a m Reason for Visit Admit Date Chronic pain September 13, 2024 8:55a m Chronic, continuous use of opioids August 182024 8:55am Other spondylosis with radiculopathy, [facility] September 13, 2024 8:55am Additional Source Comments <item> Privacy Markings (unrecogniz [...] section and content) DATE CREATED AUTHOR 09/29/2021 [facility] DATE CREATED AUTHOR AUTHOR'S ORGANIZ ATION 05/01/2022 [facility] DATE CREATED AUTHOR AUTHOR'S ORGANIZ ATION 05/05/2022 [employer] DATE CREATED AUTHOR AUTHOR'S ORGANIZ ATION 05/16/2022 [facility] DATE CREATED AUTHOR AUTHOR'S ORGANIZ ATION 06/24/2022 [facility] DATE CREATED AUTHOR AUTHOR'S ORGANIZ ATION 07/28/2022 [facility] DATE CREATED AUTHOR AUTHOR'S ORGANIZ ATION 05/26/2024 [facility] DATE CREATED AUTHOR AUTHOR'S ORGANIZ ATION 08/16/2024 [facility] DATE CREATED AUTHOR AUTHOR'S ORGANIZ ATION 08/17/2024 [facility] DATE CREATED AUTHOR AUTHOR'S ORGANIZ ATION 08/23/2024 [facility] DATE CREATED AUTHOR AUTHOR'S ORGANIZ ATION 09/25/2024 [facility] DATE CREATED AUTHOR AUTHOR'S ORGANIZ ATION 09/30/2024 [facility] REASON FOR VISIT (unrecogniz ed section and content) Reason Comments Migraine Headache Cluster Back Pain Reason Comments Follow-up Referral from Dr. Deangelo bennett-Right side low back pain with radiation to right buttock and down right posterior leg. Surgery PLIF 2 years ago Reason Comments Follow-up Results CT Reason Comments Headache Back Pain Reason Comments Follow-up TFESI-feels worse Care Teams (unrecognized sec tion and content) [...] Provider Active Sta rt: September 15, 2023 Wire Saw Operator Relationship Specialty [place] [address] [place] [id number] PCP - General Family Medicine 08/09/23 Wire Saw Operator Relationship Specialty Start Date End Date Kimi Weiss MD [address] [place] [address] PCP - General Family Medicine 08/09/23 Wire Saw Operator Relationship Specialty Start Date End Date AbhishekKimi DO [facility] [address] [place] [address] PCP - General 11/04/20 Team Status: Inactive [...] May 15, 2024 End: May 15, 2024 Wire Saw Operator Relationship Specialty Start Date End Date Kimi Weiss DO [address] [place] [id number] PCP - General 11/04/20 Wire Saw Operator Relationship Specialty Start Date End Date Kimi Weiss DO [address] [place] [id number] PCP - General 11/04/20 Wire Saw Operator Relationship Specialty Start Date End Date Kimi Weiss DO [address] [place] [id number] PCP - General 11/04/20 Wire Saw Operator Relationship Specialty Start Date End Date Kimi Weiss MD [address] [place] [id number] PCP - General Family Medicine 08/09/23 Wire Saw Operator Relationship Specialty Start Date End Date Kimi Weiss DO [address] [place] [id number] PCP - General 11/04/20 Wire Saw Operator Relationship Specialty [place] [address] [place] [id number] PCP - General Family Medicine 08/09/23 Team Status: Inactive Member Role Status Dates Kimi Weiss DO Primary Care Provider Active Start: September 13, 2024 End: September 13, 2024 Charles Claros MD Attending Provider Active Sta rt: September 13, 2024 End: September 13, 2024 Wire Saw Operator Relationship Specialty [place] [address] [place] [id number] PCP - General 11/04/20 Goals (unrecognized section [...] BE BASED ON THE PRIMARY CLINICAL RECORDS. [facility] [employer] [facility] provides no warranty or guarantee of the accuracy or completeness of information in this document.
[2024-10-04 22:01] LABS: Glucometer 239 mg/dL (74-106)
[2024-10-04] MEDS: IPRATROPIUM/ALBUTEROL SULFATE 3 ML AMPUL.NEB IH (22:18)
--- NOTE | 2024-10-04 22:39 | RESP.RT ---
Pt had increased WOB with audible wheezes after doing PEP therapy. HR increased to 130's, RR 40, Sp02 98% on 3L nasal cannula.
[2024-10-04] MEDS: LORAZEPAM 0.5 MG TABLET PO (22:49)
[2024-10-04] MEDS: NITROGLYCERIN 0.4 MG BOTTLE SL (22:49)
[2024-10-04 23:56] LABS: Bilirubin Urine NEGATIVE (NEGATIVE); Blood Urine NEGATIVE (NEGATIVE); Clarity Urine CLEAR (CLEAR); Color Urine LT. YELLOW (YELLOW); Glucose Urine UA >=1000 mg/dL (NEGATIVE); Ketones Urine 15 mg/dL (NEGATIVE); Leukocyte Esterase Urine NEGATIVE (NEGATIVE); Nitrite Urine NEGATIVE (NEGATIVE); Protein Urine NEGATIVE (NEG/TRACE); Specific Gravity Urine 1.015 (1.005-1.025); Urobilinogen Urine 0.2 EU/dL (0.2-1.0)
[2024-10-05] VITALS (19 sets, daily range): BP systolic 131–168; BP diastolic 78–99; PULSE 88–116; TEMP 36.5–36.8; O2SAT 93–99
[2024-10-05 00:11] LABS: Bacteria Urine NONE SEEN #/HPF (NONE SEEN); Mucus Urine NONE SEEN (NONE SEEN); RBC Urine NONE SEEN #/HPF (0-2); Squamous Epithelial Cell Urine NONE SEEN #/LPF (NONE/RARE); WBC Urine 0-2 #/HPF (NONE SEEN)
[2024-10-05 00:12] LABS: Cast Seen? NONE SEEN #/LPF (NONE SEEN); Crystals Seen? None Seen #/HPF (None Seen); Urine Culture Indicated NO
[2024-10-05] MEDS: MORPHINE SULFATE 2 MG/ML SYRINGE IV (02:11)
[2024-10-05 05:55] LABS: Hematocrit 39.9 % (42.0-54.0); Hemoglobin 13.7 g/dL (14.0-18.0); Mean Corpuscular HGB Conc 34.3 g/dL (29.9-35.2); Mean Corpuscular Hemoglobin 30.3 pg (25.9-34.0); Mean Corpuscular Volume 88.3 fL (80.0-94.0); Mean Platelet Volume 9.1 fL (9.5-13.5); Platelet Count 200 10^3/uL (150-450); Red Blood Count 4.52 10^6/uL (4.70-6.10); Red Cell Distribution Width 12.7 % (11.0-15.0); White Blood Count 5.2 10^3/uL (4.0-11.0)
[2024-10-05 06:16] LABS: Alanine Aminotransferase 41 U/L (16-63); Albumin Globulin Ratio 0.8; Albumin Level 3.3 g/dL (3.4-5.0); Alkaline Phosphatase 72 U/L (46-116); Anion Gap 16.4; Aspartate Amino Transferase 23 U/L (15-37); BUN Creatinine Ratio 16.7; Bilirubin Total 0.2 mg/dL (0.2-1.0); Calcium 9.1 mg/dL (8.5-10.1); Carbon Dioxide 25.3 mmol/L (21.0-32.0); Chloride 102 mmol/L (98-107); Estimated GFR (African America >60 (>=60 mL/min/1.73m^2); Estimated GFR (Non-African Ame >60 (>=60 mL/min/1.73m^2); Glucose 236 mg/dL (74-106); Magnesium 2.2 mg/dL (1.8-2.4); Potassium 4.7 mmol/L (3.5-5.1); Sodium 139 mmol/L (136-145); Total Protein 7.3 g/dL (6.4-8.2)
[2024-10-05 06:25] LABS: Troponin I High Sensitivity 6.4 pg/mL (4.0-76.1)
[2024-10-05 06:28] LABS: Atypical Lymphocytes Abs Man 0.31; Lymphocytes Absolute Manual 1.09 10^3/uL (1.20-3.80); Monocytes Absolute Manual 0.36 10^3/uL (0.30-0.80); Segmented Neut Absolute Manual 3.48 10^3/uL (1.4-6.5)
[2024-10-05 07:20] LABS: Glucometer 161 mg/dL (74-106)
[2024-10-05] MEDS: FENOFIBRATE 54 MG TABLET PO (08:11)
[2024-10-05] MEDS: DULOXETINE HCL 60 MG CAPSULE.DR PO (08:11)
[2024-10-05] MEDS: LISINOPRIL 20 MG TABLET PO (08:11)
[2024-10-05] MEDS: LORAZEPAM 0.5 MG TABLET PO ×3 (08:11→22:15)
[2024-10-05 08:42] LABS: Troponin I High Sensitivity 4.7 pg/mL (4.0-76.1)
[2024-10-05] MEDS: OXYCODONE HCL/ACETAMINOPHEN 5MG/325MG 2 TAB PO (08:48)
--- NOTE | 2024-10-05 09:00 | CM.NOTE ---
Rounds made with Dr. Jovel, pt c/o increase SOB and having increased respirations. Discussed with pt plan of care. RN updated of changing pt to vapotherm for increased respiratory rate and anxiety. No discharge, will change pt's status to inpatient.
[2024-10-05] MEDS: 0.9 % SODIUM CHLORIDE 250 ML 10 ML IV (10:04)
[2024-10-05] MEDS: PANTOPRAZOLE SODIUM 40 MG VIAL IV (10:04)
[2024-10-05] MEDS: AZITHROMYCIN 500 MG in 0.9 % SODIUM CHLORIDE 250 ML 250 MG IV (10:05)
[2024-10-05] MEDS: CEFTRIAXONE 1,000 MG in 0.9 % SODIUM CHLORIDE 50 ML 100 MG IV (10:05)
--- NOTE | 2024-10-05 10:34 | PM.IMHP1 ---
Internal Medicine - H&P: HPI History of Present Illness Chief complaint: SOB CHEST PAINS, DYSPNEA, BRONCHITIS Narrative: Please be aware I am taking over this patient's care today from an overnight admission. This is a 59 y.o male with past medical Hx of Migraine, depression, dyslipidemia, HTN, Hx of 3 PEs, type 2 diabetes, hx of chronic back pain, here for SOB and cough. Hx obtained from the pt this morning and from the ED documentation from overnight mission. He states that around 4 days ago patient started having shortness of breath while resting along with left-sided and right sided chest pain that is worse with coughing, his cough was dry. He denies any sore throat but complains of nasal congestion and other flulike symptoms. He does not smoke, drinks alcohol occasionally, and does not use drugs. He has a history of PE and is compliant with his Xarelto. He went to the urgent care the next day and he was prescribed antibiotic he is not sure what antibiotic he was given (he was given Augmentin, Tessalon Perles, as well as albuterol inhaler as per ED documentation). Symptoms not improving decided to come to the ER for further workup and management. In the ED, his CBC did not show leukocytosis, magnesium was 1.6 and chemistry otherwise it was unremarkable. He was tachycardic and tachypneic as well as hypertensive, CT of the chest was negative for PE but showed airspace opacities in the lower lobes bilaterally. Her ABG showed respiratory alkalosis. When I saw the patient, he was saturating well on 3 to nasal cannula however he did have some tachypnea which I think is due to anxiety. I obtained the history from him he states that he feels better still having the pains and was requesting oxycodone for pain. He is on [place] at home as needed for his back pain. I reviewed his labs and imaging as far as this morning Review of Systems ROS Status of ROS 10 or more systems reviewed and unremarkable except as noted in history and below [facility] Medical History (Updated 10/05/24 @ 10:52 by Lucita Jovel MD) DVT (deep venous thrombosis) ?I82.409 - Acute embolism and thrombosis of unspecified deep veins of unspecified lower extremity (ICD-10) Breath shortness ?R06.02 - Shortness of breath (ICD-10) Community acquired pneumonia ?J18.9 - Pneumonia, unspecified organism (ICD-10) Chest pain ?R07.9 - Chest pain, unspecified (ICD-10) Depression ?F32.A - Depression, unspecified (ICD-10) Migraine headache ?G43.909 - Migraine, unspecified, not intractable, without status migrainosus (ICD-10) Non-insulin dependent type 2 diabetes mellitus ?E11.9 - Type 2 diabetes mellitus without complications (ICD-10) Hyperlipidemia associated with type 2 diabetes mellitus ?E11.69 - Type 2 diabetes mellitus with other specified complication (ICD-10) ?E78.5 - Hyperlipidemia, unspecified (ICD-10) Primary hypertension ?I10 - Essential (primary) hypertension (ICD-10) History of pulmonary embolism ?Z86.711 - Personal history of pulmonary embolism (ICD-10) Social History (Updated 10/04/24 @ 22:08 by Lissette Gutiérrez RN) Within the past year, how often did you have a drink containing alcohol: monthly or less Within the past year, how many standard drinks containing alcohol did you have on a typical day: 1 or 2 Within the past year, how often did you have six or more drinks on one occasion: never Total score: 0 Score interpretation: A score less than 4 is consistent with normal alcohol consumption. Smoking status: Never smoker Non-prescribed substance use: denies use Highest level of school completed/degree received: high school graduate Little interest or pleasure in doing things: not at all Feeling down, depressed, or hopeless: not at all Meds Home Medications and Allergies Home Medications ?Medication ?Instructions ?Recorded ?Confirmed ?Type duloxetine 60 mg capsule,delayed 60 mg PO DAILY 04/02/24 10/04/24 History release fenofibrate nanocrystallized 48 mg 48 mg PO DAILY 04/02/24 10/04/24 History tablet galcanezumab-gnlm 120 mg/mL 120 mg subcut .monthly 04/02/24 10/04/24 History subcutaneous pen injector (Emgality Pen) lisinopril 20 mg tablet 20 mg PO DAILY 04/02/24 10/04/24 History metformin 500 mg tablet 1,000 mg PO BID 04/02/24 10/04/24 History rivaroxaban 20 mg tablet (Xarelto) 20 mg PO Q24H 04/02/24 10/04/24 History albuterol sulfate 90 mcg/actuation 2 puff inhalation Q4H PRN 10/04/24 10/04/24 History aerosol inhaler shortness of breath or wheezing amoxicillin 875 mg-potassium 1 tab PO BID 10/04/24 10/04/24 History clavulanate 125 mg tablet benzonatate 100 mg capsule 100 mg PO TID PRN cough 10/04/24 10/04/24 History glyburide micronized 3 mg tablet 3 mg PO DAILY 10/04/24 10/04/24 History Allergies Allergy/AdvReac Type Severity Reaction Status Date / Time No Known Drug Allergies Allergy Verified 10/04/24 14:44 Exam Narrative Exam Narrative: General: The patient appears well and in no apparent distress. He is a little anxious Skin: Warm, dry, no pallor noted. There is no rash noted. No petechiae, purpura. Head: Normocephalic, atraumatic Eye: Normal conjunctiva, no drainage, EOMI. PERRL Ears, Nose, Mouth, and Throat: oral mucosa is moist. Nares patent. Mouth without vesicles. Cardiovascular: Regular Rate and Rhythm, no murmur, gallop, rub. Patient has moderate reproducible tenderness to palpation to anterior chest wall, also to paraspinal costochondral area of his anterior chest. No crepitus. Respiratory: Patient is in mild respiratory distress with increased respiratory rate, decreased breath sounds bilateral but equal,, no accessory muscle use, lungs are bilateral wheezing, no rales or rhonchi's noted. Back: non-tender, no CVA tenderness bilaterally to percussion. No CT LS midline pain GI: Soft, obese, no tenderness to palpation, no masses appreciated. No rebound, guarding, or rigidity noted. No distention Musculoskeletal: Patient has full range of motion of all of the extremities, no motor, sensory, or focal neurological deficits Neurological: A&O x4, normal speech Psychiatric: Cooperative Constitutional Vital Signs, click to edit/add: Last Vital Signs Temp 97.7 F 10/05/24 08:00 Pulse 108 H 10/05/24 10:00 Resp 20 10/05/24 08:00 BP 168/99 H 10/05/24 08:00 Pulse Ox 99 10/05/24 08:00 O2 Del Method Nasal Cannula 10/05/24 08:00 O2 Flow Rate 3 10/05/24 08:00 Internal Medicine - H&P: Reslt Labs Labs: Short CBC 10/04/24 10/05/24 Range/Units 15:20 05:16 WBC 6.7 5.2 (4.0-11.0) 10^3/uL Hgb 15.7 13.7 L (14.0-18.0) g/dL Hct 43.9 39.9 L (42.0-54.0) % Plt Count 232 200 (150-450) 10^3/uL BMP 10/04/24 10/05/24 15:20 05:16 Sodium 139 139 Potassium 4.9 4.7 Chloride 100 102 Carbon Dioxide 23.8 25.3 BUN 12.0 14.0 Creatinine 0.96 0.84 Glucose 154 H 236 H Calcium 10.0 9.1 Liver Function 10/04/24 10/05/24 Range/Units 15:20 05:16 Total Bilirubin 0.4 0.2 (0.2-1.0) mg/dL AST 34 23 (15-37) U/L ALT 54 41 (16-63) U/L Alkaline Phosphatase 86 72 (46-116) U/L Albumin 3.8 3.3 L (3.4-5.0) g/dL Urine 10/04/24 Range/Units 23:44 Urine Color Lt. yellow (YELLOW) Urine Clarity Clear (CLEAR) Urine pH 6.0 (5.0-9.0) Ur Specific [place] 1.015 (1.005-1.025) Urine Protein Negative (NEG/TRACE) mg/dL Urine Glucose (UA) >=1000 A (NEGATIVE) mg/dL Assessment and Plan Assessment and Plan (1) Acute hypoxic respiratory failure: (2) Community acquired pneumonia: Qualifiers: Laterality: unspecified laterality Qualified Code(s): J18.9 - Pneumonia, unspecified organism (3) History of pulmonary embolus (PE): (4) Costochondritis: Plan Acute hypoxic respiratory failure in the setting of bilateral community-acquired pneumonia Costochondritis in setting of the above Lactic acidosis in setting of hyperventilation. Work of breathing - Admit patient to medical floor telemetry - Start IV ceftriaxone and IV doxycycline, I switched to Levaquin to the forementioned antibiotic - Obtain sputum culture - I placed the patient on Vapotherm given his increased work of breathing - Patient qualified for inpatient given the need for IV antibiotics and further monitoring and needing for Vapotherm while in the hospital -Obtain sputum culture -Follow-up on blood cultures -Continue with Tessalon and Robitussin for his cough -Incentive spirometry -I hold his NSAIDs, will continue with oxycodone for now -We will opt to continue with rivaroxaban for his PE, which will help with his DVT prophylaxis -GI prophylaxis pantoprazole -Continue Bactrim patient's respiratory status and response to - I discussed management with the patient detail. Answered all his question addressed his concerns - Also discussed the case with the nursing team during the
[2024-10-05] MEDS: IPRATROPIUM/ALBUTEROL SULFATE 3 ML AMPUL.NEB IH ×2 (10:43→22:38)
[2024-10-05 11:26] LABS: Glucometer 341 mg/dL (74-106)
[2024-10-05 11:26] LABS: Glucometer 220 mg/dL (74-106)
[2024-10-05] MEDS: CARVEDILOL 3.125 MG TABLET PO ×2 (15:27→20:46)
[2024-10-05] MEDS: OXYCODONE HCL/ACETAMINOPHEN 5MG/325MG 1 TAB PO ×2 (15:57→22:15)
[2024-10-05 16:39] LABS: Glucometer 415 mg/dL (74-106)
[2024-10-05 16:39] LABS: Glucometer 186 mg/dL (74-106)
[2024-10-05 16:45] LABS: Glucometer 175 mg/dL (74-106)
[2024-10-05 19:47] LABS: Glucometer 199 mg/dL (74-106)
[2024-10-05] MEDS: RIVAROXABAN 10 MG TABLET 20 MG PO (20:46)
[2024-10-06] VITALS (22 sets, daily range): BP systolic 119–183; BP diastolic 72–100; PULSE 80–112; TEMP 36.4–36.8; O2SAT 91–988
[2024-10-06] MEDS: IPRATROPIUM/ALBUTEROL SULFATE 3 ML AMPUL.NEB IH ×4 (04:02→22:34)
[2024-10-06 05:40] LABS: Basophils Percent Auto 0.3 % (0.2-2.0); Eosinophils Absolute Auto 0.1 10^3/uL (0.0-0.7); Eosinophils Percent Auto 1.9 % (0.9-7.0); Hematocrit 37.1 % (42.0-54.0); Hemoglobin 12.7 g/dL (14.0-18.0); Immature Granulocytes Abs Auto 0.03 10^3/uL (0.00-0.03); Immature Granulocytes Pct Auto 0.4 % (0.0-0.5); Lymphocytes Absolute Auto 3.4 10^3/uL (1.2-3.8); Lymphocytes Percent Auto 50.9 % (20.5-60.0); Mean Corpuscular HGB Conc 34.2 g/dL (29.9-35.2); Mean Corpuscular Hemoglobin 30.9 pg (25.9-34.0); Mean Corpuscular Volume 90.3 fL (80.0-94.0); Mean Platelet Volume 9.5 fL (9.5-13.5); Monocytes Absolute Auto 0.6 10^3/uL (0.3-0.8); Monocytes Percent Auto 9.3 % (1.7-12.0); Neutrophils Absolute Auto 2.5 10^3/uL (1.4-6.5); Neutrophils Percent Auto 37.2 % (43.0-75.0); Platelet Count 192 10^3/uL (150-450); Red Blood Count 4.11 10^6/uL (4.70-6.10); Red Cell Distribution Width 12.9 % (11.0-15.0); White Blood Count 6.7 10^3/uL (4.0-11.0)
[2024-10-06 05:48] LABS: Alanine Aminotransferase 42 U/L (16-63); Albumin Globulin Ratio 0.8; Alkaline Phosphatase 66 U/L (46-116); Anion Gap 13.5; Aspartate Amino Transferase 24 U/L (15-37); BUN Creatinine Ratio 18.5; Bilirubin Total 0.3 mg/dL (0.2-1.0); Calcium 8.7 mg/dL (8.5-10.1); Carbon Dioxide 27.8 mmol/L (21.0-32.0); Chloride 104 mmol/L (98-107); Estimated GFR (African America >60 (>=60 mL/min/1.73m^2); Estimated GFR (Non-African Ame >60 (>=60 mL/min/1.73m^2); Globulin 3.8 g/dL; Glucose 165 mg/dL (74-106); Potassium 4.3 mmol/L (3.5-5.1); Sodium 141 mmol/L (136-145); Total Protein 6.8 g/dL (6.4-8.2)
[2024-10-06] MEDS: DULOXETINE HCL 60 MG CAPSULE.DR PO (08:08)
[2024-10-06] MEDS: FENOFIBRATE 54 MG TABLET PO (08:08)
[2024-10-06] MEDS: OXYCODONE HCL/ACETAMINOPHEN 5MG/325MG 1 TAB PO ×3 (08:08→22:54)
[2024-10-06] MEDS: CARVEDILOL 3.125 MG TABLET PO ×2 (08:08→09:52)
[2024-10-06] MEDS: LORAZEPAM 0.5 MG TABLET PO (08:08)
[2024-10-06] MEDS: LISINOPRIL 20 MG TABLET PO (08:08)
[2024-10-06] MEDS: PANTOPRAZOLE SODIUM 40 MG VIAL IV (08:09)
[2024-10-06] MEDS: AZITHROMYCIN 500 MG in 0.9 % SODIUM CHLORIDE 250 ML 250 MG IV (09:52)
--- NOTE | 2024-10-06 10:14 | P.IMPN_ITS ---
Progress Note: A&P Assessment and Plan (1) Acute hypoxic respiratory failure: (2) Community acquired pneumonia: Qualifiers: Laterality: unspecified laterality Qualified Code(s): J18.9 - Pneumonia, unspecified organism (3) History of pulmonary embolus (PE): (4) Costochondritis: (5) Hypertensive urgency: Plan Acute hypoxic respiratory failure in the setting of bilateral community-acquired pneumonia Costochondritis in setting of the above Lactic acidosis in setting of hyperventilation. Work of breathing - Admit patient to medical floor telemetry - Start IV ceftriaxone and IV doxycycline, I switched to Levaquin to the forementioned antibiotic - Obtain sputum culture - I placed the patient on Vapotherm given his increased work of breathing - Patient qualified for inpatient given the need for IV antibiotics and further monitoring and needing for Vapotherm while in the hospital -Obtain sputum culture -Follow-up on blood cultures -Continue with Tessalon and Robitussin for his cough -Incentive spirometry -We will opt to continue with rivaroxaban for his PE, which will help with his DVT prophylaxis -GI prophylaxis pantoprazole -Continue Bactrim patient's respiratory status and response to - I discussed management with the patient detail. Answered all his question addressed his concerns - Also discussed the case with the nursing team during the 10/06/2024 Feeling better today, I increased his carvedilol to 6.25 mg PO BID for better BP control. Ordered 1 IV injection of ketorolac 15 mg once as he mentions he is still having quite chest pain when he tries to move or cough which is compatible with picture of costochondritis, Continuing with oxycodone and will stop the Morphine IV PRN, Will continue with his IV antibiotics and PO antitussives, May be discharged tomorrow if continues to improve once I wean him off the HFNC today. I discussed the plan in details with him and his daughter, answered all their questions. Internal Medicine - PN: Subj Subjective Interval history: Pt seen and examined at bedside. Was accompanied by his daughter, feeling better today on HFNC, still complaining of left and right sided chest pains worse with cough. No fever or chills overnight. Remains hypertensive. Still having cough, a little more productive today with whitish sputum. Overall feels a lot better. No nausea or vomiting. Labs reviewed, pt is not in acute distress. Exam Narrative Exam Narrative: General: The patient appears well and in no apparent distress. Less anxious today Skin: Warm, dry, no pallor noted. There is no rash noted. No petechiae, purpura. Head: Normocephalic, atraumatic Eye: Normal conjunctiva, no drainage, EOMI. PERRL Ears, Nose, Mouth, and Throat: oral mucosa is moist. Nares patent. Mouth without vesicles. Cardiovascular: Regular Rate and Rhythm, no murmur, gallop, rub. Patient has moderate reproducible tenderness to palpation to anterior chest wall, also to paraspinal costochondral area of his anterior chest. No crepitus. Respiratory: Patient is not in respiratory distress, saturating well on HFNC 30% FiO2, not using accessory muscles, not tachypneic. There is decreased bilateral air entry in the bases, some bibasilar crackles, no wheezes Back: non-tender, no CVA tenderness bilaterally to percussion. No CT LS midline pain GI: Soft, obese, no tenderness to palpation, no masses appreciated. No rebound, guarding, or rigidity noted. No distention Musculoskeletal: Patient has full range of motion of all of the extremities, no motor, sensory, or focal neurological deficits Neurological: A&O x4, normal speech Constitutional Vital Signs, click to edit/add: Last Vital Signs Temp 97.6 F 10/06/24 08:13 Pulse 85 10/06/24 10:00 Resp 20 10/06/24 08:13 BP 183/100 H 10/06/24 08:13 Pulse Ox 96 10/06/24 10:00 O2 Del Method Vapotherm 10/06/24 08:13 O2 Flow Rate 30 10/06/24 08:13 FiO2 30 10/06/24 08:13 Internal Medicine - PN: Obj Da Labs Labs: Laboratory Results - last 24 hr 10/05/24 10/05/24 10/05/24 11:21 11:23 16:35 WBC RBC Hgb Hct MCV MCH MCHC RDW Plt Count MPV Neut % (Auto) Lymph % (Auto) [place] % (Auto) Eos % (Auto) Baso % (Auto) Neut # (Auto) Lymph # (Auto) [place] # (Auto) Eos # (Auto) Baso # (Auto) Abs Immat Gran (auto) Imm/Tot Granulo (auto) Sodium Potassium Chloride Carbon Dioxide Anion Gap BUN Creatinine Est GFR ( Amer) Est GFR (Non-Af Amer) BUN/Creatinine Ratio Glucose Calcium Magnesium Total Bilirubin AST ALT Alkaline Phosphatase Total Protein Albumin Globulin Albumin/Globulin Ratio POC Glucose 341 H 220 H 415 H 10/05/24 10/05/24 10/05/24 16:37 16:44 19:46 WBC RBC Hgb Hct MCV MCH MCHC RDW Plt Count MPV Neut % (Auto) Lymph % (Auto) [place] % (Auto) Eos % (Auto) Baso % (Auto) Neut # (Auto) Lymph # (Auto) [place] # (Auto) Eos # (Auto) Baso # (Auto) Abs Immat Gran (auto) Imm/Tot Granulo (auto) Sodium Potassium Chloride Carbon Dioxide Anion Gap BUN Creatinine Est GFR ( Amer) Est GFR (Non-Af Amer) BUN/Creatinine Ratio Glucose Calcium Magnesium Total Bilirubin AST ALT Alkaline Phosphatase Total Protein Albumin Globulin Albumin/Globulin Ratio POC Glucose 186 H 175 H 199 H 10/06/24 04:39 WBC 6.7 RBC 4.11 L Hgb 12.7 L Hct 37.1 L MCV 90.3 MCH 30.9 MCHC 34.2 RDW 12.9 Plt Count 192 MPV 9.5 Neut % (Auto) 37.2 L Lymph % (Auto) 50.9 [place] % (Auto) 9.3 Eos % (Auto) 1.9 Baso % (Auto) 0.3 Neut # (Auto) 2.5 Lymph # (Auto) 3.4 [place] # (Auto) 0.6 Eos # (Auto) 0.1 Baso # (Auto) 0.0 Abs Immat Gran (auto) 0.03 Imm/Tot Granulo (auto) 0.4 Sodium 141 Potassium 4.3 Chloride 104 Carbon Dioxide 27.8 Anion Gap 13.5 BUN 15.0 Creatinine 0.81 Est GFR ( Amer) >60 Est GFR (Non-Af Amer) >60 BUN/Creatinine Ratio 18.5 Glucose 165 H Calcium 8.7 Magnesium 2.0 Total Bilirubin 0.3 AST 24 ALT 42 Alkaline Phosphatase 66 Total Protein 6.8 Albumin 3.0 L Globulin 3.8 Albumin/Globulin Ratio 0.8 POC Glucose
--- NOTE | 2024-10-06 10:23 | CM.NOTE ---
Rounds made with Dr. Jovel, will wean oxygen to nasal cannula today. No discharge today, continue IV antibiotics.
[2024-10-06] MEDS: KETOROLAC TROMETHAMINE 30 MG/ML VIAL 15 MG IVP (11:02)
[2024-10-06] MEDS: CEFTRIAXONE 1,000 MG in 0.9 % SODIUM CHLORIDE 50 ML 100 MG IV (11:02)
[2024-10-06] MEDS: CARVEDILOL 6.25 MG TABLET PO (16:32)
[2024-10-06 16:37] LABS: Glucometer 153 mg/dL (74-106)
[2024-10-06] MEDS: RIVAROXABAN 10 MG TABLET 20 MG PO (20:51)
[2024-10-06 20:55] LABS: Glucometer 143 mg/dL (74-106)
[2024-10-06] MEDS: TEMAZEPAM 15 MG CAPSULE PO (22:53)
[2024-10-07] VITALS (18 sets, daily range): BP systolic 120–156; BP diastolic 82–98; PULSE 81–117; TEMP 36.5–36.9; O2SAT 80–99
[2024-10-07] MEDS: IPRATROPIUM/ALBUTEROL SULFATE 3 ML AMPUL.NEB IH ×4 (05:50→23:51)
[2024-10-07 06:38] LABS: Basophils Percent Auto 0.5 % (0.2-2.0); Eosinophils Absolute Auto 0.2 10^3/uL (0.0-0.7); Eosinophils Percent Auto 3.3 % (0.9-7.0); Hematocrit 39.2 % (42.0-54.0); Hemoglobin 13.5 g/dL (14.0-18.0); Immature Granulocytes Abs Auto 0.02 10^3/uL (0.00-0.03); Immature Granulocytes Pct Auto 0.3 % (0.0-0.5); Lymphocytes Absolute Auto 3.6 10^3/uL (1.2-3.8); Lymphocytes Percent Auto 55.2 % (20.5-60.0); Mean Corpuscular HGB Conc 34.4 g/dL (29.9-35.2); Mean Corpuscular Hemoglobin 31.1 pg (25.9-34.0); Mean Corpuscular Volume 90.3 fL (80.0-94.0); Mean Platelet Volume 9.2 fL (9.5-13.5); Monocytes Absolute Auto 0.6 10^3/uL (0.3-0.8); Monocytes Percent Auto 9.2 % (1.7-12.0); Neutrophils Percent Auto 31.5 % (43.0-75.0); Platelet Count 213 10^3/uL (150-450); Red Blood Count 4.34 10^6/uL (4.70-6.10); Red Cell Distribution Width 12.5 % (11.0-15.0); White Blood Count 6.4 10^3/uL (4.0-11.0)
--- NOTE | 2024-10-07 06:48 | P.DS_ITS ---
DS: Providers Provider Date of admission: 10/05/24 08:52 Primary care physician: KIMI JACINTO DS: Diagnosis Discharge Diagnosis (1) Acute hypoxic respiratory failure: (2) Community acquired pneumonia: Qualifiers: Laterality: unspecified laterality Qualified Code(s): J18.9 - Pneumon ia, unspecified organism (3) History of pulmonary embolus (PE): (4) Costochondritis: (5) Hypertensive urgency: Plan (1) Acute hypoxic respiratory failure: (2) Community acquired pneumonia: Qualifiers: Laterality: unspecified laterality Qualified Code(s): J18.9 - Pneum onia, unspecified organism (3) History of pulmonary embolus (PE): (4) Costochondritis: (5) Hypertensive urgency: DS: Summary Time Spent with Patient Time attestation: Total time spent providing and/or coordinating discharge services: Exam Constitutional Vital Signs, click to edit/add: Last Vital Signs Temp 97.7 F 10/07/24 04:00 Pulse 86 10/07/24 05:52 Resp 20 10/07/24 05:50 BP 131/82 10/07/24 04:00 Pulse Ox 99 10/07/24 05:52 O2 Del Method Nasal Cannula 10/07/24 05:50 O2 Flow Rate 2 10/07/24 05:50 FiO2 30 10/06/24 08:13 DS: Data Data Completed and Pending Labs on day of discharge: Labs from last 24 hours 10/07/24 10/06/24 10/06/24 06:16 20:52 16:37 WBC 6.4 RBC 4.34 L Hgb 13.5 L Hct 39.2 L MCV 90.3 MCH 31.1 MCHC 34.4 RDW 12.5 Plt Count 213 MPV 9.2 L Neut % (Auto) 31.5 L Lymph % (Auto) 55.2 [place] % (Auto) 9.2 Eos % (Auto) 3.3 Baso % (Auto) 0.5 Neut # (Auto) 2.0 Lymph # (Auto) 3.6 [place] # (Auto) 0.6 Eos # (Auto) 0.2 Baso # (Auto) 0.0 Abs Immat Gran (auto) 0.02 Imm/Tot Granulo (auto) 0.3 POC Glucose 143 H 153 H Preliminary micro results at discharge 10/04/24 15:43 Blood Culture Result 2 - Preliminary Blood NO GROWTH AT 36-48 HOURS. FINAL TO FOLLOW. 10/04/24 15:35 Blood Culture Result 1 - Preliminary Blood NO GROWTH AT 36-48 HOURS. FINAL TO FOLLOW. Discharge Plan Discharge Condition: Fair Discharge Medications: No Action metformin 500 mg tablet 1,000 mg PO BID lisinopril 20 mg tablet 20 mg PO DAILY duloxetine 60 mg capsule,delayed release(DR/EC) 60 mg PO DAILY fenofibrate nanocrystallized 48 mg tablet 48 mg PO DAILY Xarelto 20 mg tablet 20 mg PO Q24H Emgality Pen 120 mg/mL pen injector 120 mg SUBCUT .monthly amoxicillin-pot clavulanate 875-125 mg tablet 1 tab PO BID Patient Comments: 10/03/24-10/12/24 albuterol sulfate 90 mcg/actuation HFA aerosol inhaler 2 puff INHALATION Q4H PRN (Reason: shortness of breath or wheezing) benzonatate 100 mg capsule 100 mg PO TID PRN (Reason: cough) glyburide micronized 3 mg tablet 3 mg PO DAILY Print Language: [place]
[2024-10-07 06:53] LABS: Alanine Aminotransferase 51 U/L (16-63); Albumin Globulin Ratio 0.9; Albumin Level 3.4 g/dL (3.4-5.0); Alkaline Phosphatase 71 U/L (46-116); Anion Gap 10.9; Aspartate Amino Transferase 24 U/L (15-37); BUN Creatinine Ratio 20.8; Bilirubin Total 0.2 mg/dL (0.2-1.0); Calcium 8.8 mg/dL (8.5-10.1); Carbon Dioxide 30.2 mmol/L (21.0-32.0); Chloride 102 mmol/L (98-107); Estimated GFR (African America >60 (>=60 mL/min/1.73m^2); Estimated GFR (Non-African Ame >60 (>=60 mL/min/1.73m^2); Globulin 3.8 g/dL; Glucose 169 mg/dL (74-106); Magnesium 1.9 mg/dL (1.8-2.4); Potassium 4.1 mmol/L (3.5-5.1); Sodium 139 mmol/L (136-145); Total Protein 7.2 g/dL (6.4-8.2)
[2024-10-07] MEDS: BENZONATATE 100 MG CAPSULE 200 MG PO ×2 (08:53→15:03)
[2024-10-07] MEDS: DULOXETINE HCL 60 MG CAPSULE.DR PO (08:53)
[2024-10-07] MEDS: OXYCODONE HCL/ACETAMINOPHEN 5MG/325MG 1 TAB PO ×3 (08:53→20:44)
[2024-10-07] MEDS: LISINOPRIL 20 MG TABLET PO (08:53)
[2024-10-07] MEDS: FENOFIBRATE 54 MG TABLET PO (08:53)
[2024-10-07] MEDS: CARVEDILOL 6.25 MG TABLET PO ×2 (08:53→16:25)
--- NOTE | 2024-10-07 10:06 | P.PN_ITS ---
Progress Note: Subjective Subjective Interval history: Patient seen and evaluated on the medical surgical floor, when I walked into the room having severe coughing spasms, mild to moderate conversational dyspnea Exam Constitutional Vital Signs, click to edit/add: Last Vital Signs Temp 98.3 F 10/07/24 07:29 Pulse 110 H 10/07/24 10:00 Resp 20 10/07/24 07:29 BP 120/82 10/07/24 07:29 Pulse Ox 96 10/07/24 08:00 O2 Del Method Room Air 10/07/24 07:29 O2 Flow Rate 2 10/07/24 05:50 FiO2 30 10/06/24 08:13 Documenting provider has reviewed patient's vital signs: yes Common normals: apparent distress (Mild conversational dyspnea) Exam limitations: no altered mental status Chest Common normals: inspection of chest normal Respiratory Common normals: abnormal respiratory effort (Mild conversational dyspnea) and not clear to ascultation bilaterally Auscultation: rhonchi and wheezes Cardio Common normals: regular rate, regular rhythm and no murmurs GI Common normals: negative for Normal to inspection, nondistended, normoactive bowel sounds present (Obese) Extremity Common normals: normal to inspection, full ROM and no clubbing, cyanosis or edema Progress Note: Objective Labs Labs: Short CBC 10/07/24 Range/Units 06:16 WBC 6.4 (4.0-11.0) 10^3/uL Hgb 13.5 L (14.0-18.0) g/dL Hct 39.2 L (42.0-54.0) % Plt Count 213 (150-450) 10^3/uL BMP 10/07/24 06:16 Sodium 139 Potassium 4.1 Chloride 102 Carbon Dioxide 30.2 BUN 16.0 Creatinine 0.77 Glucose 169 H Calcium 8.8 Liver Function 10/07/24 Range/Units 06:16 Total Bilirubin 0.2 (0.2-1.0) mg/dL AST 24 (15-37) U/L ALT 51 (16-63) U/L Alkaline Phosphatase 71 (46-116) U/L Albumin 3.4 (3.4-5.0) g/dL Progress Note: A&P Assessment and Plan (1) Acute hypoxic respiratory failure: (2) Community acquired pneumonia: Qualifiers: Laterality: unspecified laterality Qualified Code(s): J18.9 - Pneumonia, unspecified organism (3) History of pulmonary embolus (PE): (4) Costochondritis: (5) Hypertensive urgency: Plan Admission findings, sinus tachycardia, respiratory distress, hypertensive urgency, lactic acidosis, acute hypoxic respiratory failure secondary to bilateral lower lobe pneumonia, resulting in severe sepsis and acute exacerbation of asthma Sinus tachycardia, respiratory distress, acute hypoxic respiratory failure requiring high flow ventilation secondary to bilateral lower lobe community acquired pneumonia with acute exacerbation of asthma-lactic acidosis resulting in severe sepsis-better in the last 12 hours, able to be weaned off of his supplemental oxygen, respiratory rate and heart rate are also improved, still still a severe cough and wheeze and rhonchi on lung exam, adjust steroids and antibiotics, possible discharge tomorrow, slim chance he will be improved enough to be discharged later today Hypertensive urgency-blood pressure better, maintain current medications Iron deficiency anemia-monitor daily-improved today Depression-continue with home medications Diabetes mellitus-continue with current medications History of pulmonary embolism-maintain anticoagulation GERD-maintain Protonix Costochondritis-pain improving Admission status: Patient with acute hypoxic respiratory failure secondary to bilateral lower lobe pneumonia with acute exacerbation of asthma and severe sepsis-medically necessary treatment will span 2 midnights. Inpatient status
[2024-10-07] MEDS: PANTOPRAZOLE SODIUM 40 MG VIAL IV (10:43)
[2024-10-07] MEDS: DEXAMETHASONE SOD PHOS 10 MG/ML VIAL IV (10:43)
[2024-10-07] MEDS: AZITHROMYCIN 500 MG in 0.9 % SODIUM CHLORIDE 250 ML 250 MG IV (10:43)
[2024-10-07] MEDS: 0.9 % SODIUM CHLORIDE 250 ML 10 ML IV (10:43)
[2024-10-07] MEDS: GUAIFENESIN 200 MG/10 ML LIQUID PO (10:44)
[2024-10-07] MEDS: CEFTRIAXONE 1,000 MG in 0.9 % SODIUM CHLORIDE 50 ML 100 MG IV (12:50)
[2024-10-07 16:40] LABS: Glucometer 265 mg/dL (74-106)
[2024-10-07] MEDS: RIVAROXABAN 10 MG TABLET 20 MG PO (20:44)
[2024-10-08] MEDS: BENZONATATE 100 MG CAPSULE 200 MG PO ×2 (00:11→08:28)
[2024-10-08 03:35] VITALS: BP 141/83; PULSE 94; TEMP 36.3; O2SAT 93
[2024-10-08 05:32] VITALS: PULSE 78; O2SAT 91
[2024-10-08] MEDS: IPRATROPIUM/ALBUTEROL SULFATE 3 ML AMPUL.NEB IH ×2 (05:34→10:14)
[2024-10-08] MEDS: OXYCODONE HCL/ACETAMINOPHEN 5MG/325MG 1 TAB PO (06:26)
--- NOTE | 2024-10-08 07:07 | P.DS_ITS ---
DS: Providers Provider Date of admission: 10/05/24 08:52 Primary care physician: KIMI WEISS DS: Diagnosis Discharge Diagnosis (1) Acute hypoxic respiratory failure: (2) Community acquired pneumonia: Qualifiers: Laterality: unspecified laterality Qualified Code(s): J18.9 - Pneumon ia, unspecified organism (3) History of pulmonary embolus (PE): (4) Costochondritis: (5) Hypertensive urgency: Plan Admission findings, sinus tachycardia, respiratory distress, hypertensive urgency, lactic acidosis, acute hypoxic respiratory failure secondary to bilateral lower lobe pneumonia, resulting in severe sepsis and acute exacerbation of asthma Sinus tachycardia, respiratory distress, acute hypoxic respiratory failure requiring high flow ventilation secondary to bilateral lower lobe community acquired pneumonia with acute exacerbation of asthma-lactic acidosis resulting in severe sepsis-better in the last 12 hours, -improving Hypertensive urgency-blood pressure better, maintain current medications Iron deficiency anemia-monitor daily-improved today Depression-continue with home medications Diabetes mellitus-continue with current medications History of pulmonary embolism-maintain anticoagulation GERD-maintain Protonix Costochondritis-pain improving Admission status: Patient with acute hypoxic respiratory failure secondary to bilateral lower lobe pneumonia with acute exacerbation of asthma and severe sepsis-medically necessary treatment will span 2 midnights. Inpatient status DS: Summary Hospital Course Hospital Course: Patient seen and evaluated in the emergency room and found with Sinus tachycardia, respiratory distress, acute hypoxic respiratory failure requiring high flow ventilation secondary to bilateral lower lobe community acquired pneumonia with acute exacerbation of asthma-lactic acidosis resulting in severe sepsis-better in the last 12 hours, . Patient was treated with IV antibiotics frequent aerosol treatments, medications were adjusted the prior to date of discharge, he has improved this morning although still with significant cough, sputum culture just obtained previous day so not likely to grow anything in particular but will still be pending and can follow-up with his PCP for that did draw mycoplasma and Legionella titers since the cough is at this point more dry cough also pertussis titers. Asthma need to be followed up on as an outpatient. Patient medically stable for discharge, medications see list, see PCP as planned in 3 days Time Spent with Patient Time attestation: Total time spent providing and/or coordinating discharge services: Exam Constitutional Vital Signs, click to edit/add: Last Vital Signs Temp 97.4 F L 10/08/24 03:35 Pulse 78 10/08/24 05:32 Resp 20 10/08/24 05:32 BP 141/83 10/08/24 03:35 Pulse Ox 91 L 10/08/24 05:32 O2 Del Method Room Air 10/08/24 05:32 O2 Flow Rate 2 10/07/24 05:50 FiO2 30 10/06/24 08:13 Documenting provider has reviewed patient's vital signs: yes Common normals: no apparent distress Chest Common normals: inspection of chest normal Respiratory Common normals: normal respiratory effort Cardio Common normals: no JVD, regular rate and regular rhythm GI Common normals: negative for Normal to inspection, nondistended, normoactive bowel sounds present (Obese) Extremity Common normals: normal to inspection and full ROM DS: Data Data Completed and Pending Labs on day of discharge: Labs from last 24 hours 10/07/24 16:24 POC Glucose 265 H Preliminary micro results at discharge 10/04/24 15:43 Blood Culture Result 2 - Preliminary Blood NO GROWTH AT 36-48 HOURS. FINAL TO FOLLOW. 10/04/24 15:35 Blood Culture Result 1 - Preliminary Blood NO GROWTH AT 36-48 HOURS. FINAL TO FOLLOW. Discharge Plan Discharge Disposition: Home, Self-Care Condition: Fair Discharge Medications: New benzonatate 100 mg Capsule 200 mg PO Q8H Qty: 20 0RF carvedilol 6.25 mg Tablet 6.25 mg PO BIDWM Qty: 60 11RF prednisone 10 mg tablet 30 mg PO DAILY Qty: 20 0RF Rx Instructions: 3/day for 3 days, 2/day for 3 days, 1/day for 3 days, 1/2 /day for 4 days cefdinir 300 mg capsule 600 mg PO DAILY Qty: 20 0RF pantoprazole [Protonix] 40 mg tablet,delayed release (DR/EC) 40 mg PO DAILY Qty: 30 11RF Continued metformin 500 mg tablet 1,000 mg PO BID lisinopril 20 mg tablet 20 mg PO DAILY duloxetine 60 mg capsule,delayed release(DR/EC) 60 mg PO DAILY fenofibrate nanocrystallized 48 mg tablet 48 mg PO DAILY Xarelto 20 mg tablet 20 mg PO Q24H Emgality Pen 120 mg/mL pen injector 120 mg SUBCUT .monthly amoxicillin-pot clavulanate 875-125 mg tablet 1 tab PO BID Patient Comments: 10/03/24-10/12/24 albuterol sulfate 90 mcg/actuation HFA aerosol inhaler 2 puff INHALATION Q4H PRN (Reason: shortness of breath or wheezing) benzonatate 100 mg capsule 100 mg PO TID PRN (Reason: cough) glyburide micronized 3 mg tablet 3 mg PO DAILY Print Language: Luxembourgish Patient Instructions: Benzonatate (By mouth) (Fadi Celis), Prednisone (By mouth), Carvedilol (By mouth), Cefdinir (By mouth) (Omnicef), Pantoprazole (By mouth), Pneumonia (DC) Forms: Portal Instructions Follow Up Appointments: Call your PCP DR Weiss Wednesday to schedule follow up within one week
[2024-10-08 07:16] VITALS: BP 150/79; PULSE 85; TEMP 36.4; O2SAT 96
[2024-10-08] MEDS: GUAIFENESIN 200 MG/10 ML LIQUID PO (08:27)
[2024-10-08] MEDS: PANTOPRAZOLE SODIUM 40 MG VIAL IV (08:27)
[2024-10-08] MEDS: LISINOPRIL 20 MG TABLET PO (08:28)
[2024-10-08] MEDS: CARVEDILOL 6.25 MG TABLET PO (08:28)
[2024-10-08] MEDS: DULOXETINE HCL 60 MG CAPSULE.DR PO (08:28)
[2024-10-08] MEDS: FENOFIBRATE 54 MG TABLET PO (08:28)
[2024-10-08 09:38] LABS: Influenza Virus A Antigen Negative; Influenza Virus B Antigen Negative; Internal Control Within Normal Limits; Respiratory Syncytial Virus Not Detected (NOT DETECTE)
[2024-10-08 09:39] LABS: Internal Control Within Normal Limits; SARS-CoV-2 Ag NEGATIVE (NEGATIVE)
[2024-10-08 10:23] VITALS: PULSE 98; O2SAT 97
--- NOTE | 2024-10-09 14:21 | CM.DCFOLLOWU ---
Person spoke with: Omer How are you feeling? Feeling better How is your pain? No pain only with coughing occasionally Did you understand your discharge instructions? Yes Do you have any questions about your discharge instructions? No Were you given any prescriptions at discharge? Yes Were you able to get your prescriptions filled? Yes Do you understand how to take your medications as ordered? Yes Do you have any questions about your follow up appointment and do you plan to keep your follow up appointment? Case Management scheduled f/u appt for WedOctober 11 08:00, pt verbalizes he will be able to make it to the appt. Is there anything else that you would like to discuss? Greatly appreciated my care. [facility] was exceptional Questions/Comments/Concerns/Other:
--- NOTE | 2024-10-11 14:45 | CM.NOTE ---
Faxed culture report to Dr. Weiss and left voicemail.
== END 2024-10-08 11:26 | disposition home or self-care (01) | DRG 871 ==
LOC: ER 19:31 → MS 21:53
PROVIDERS: Registered Nurse; Admitting Provider Student in an Organized Health Care Education/Training Program; Emergency Provider Emergency Medicine; PCP Family Medicine; Visit Provider Family Medicine
DX: A41.9 Sepsis, unspecified organism (principal); J18.9 Pneumonia, unspecified organism; J96.01 Acute respiratory failure with hypoxia; E87.20 Acidosis, unspecified; J45.901 Unspecified asthma with (acute) exacerbation; R65.20 Severe sepsis without septic shock; Z86.711 Personal history of pulmonary embolism; M94.0 Chondrocostal junction syndrome [Tietze]; Z79.01 Long term (current) use of anticoagulants; E11.9 Type 2 diabetes mellitus without complications; Z79.84 Long term (current) use of oral hypoglycemic drugs; F32.A Depression, unspecified; E78.5 Hyperlipidemia, unspecified; I10 Essential (primary) hypertension; I16.0 Hypertensive urgency; R07.89 Other chest pain; D50.9 Iron deficiency anemia, unspecified; K21.9 Gastro-esophageal reflux disease without esophagitis; E66.9 Obesity, unspecified; Z68.37 Body mass index [BMI] 37.0-37.9, adult
CPT/HCPCS: 36415; 71045; 71275; 80053; 81001; 82800; 82948; 83605; 83735; 83880; 84484; 85007; 85025; 85027; 85610; 86140; 86615; 86713; 86738; 87040; 87070; 87205; 87420; 87804; 87811; 93005; 94640; 94667; 94668; 94761; 94799; 96365; 96366; 96375; 96376; 99285; G0378; J0456; J0696; J1100; J1885; J2270; J2919; J3360; J3475; Q9967

== ENCOUNTER 2024-11-02 08:33 | Outpatient (OUT) | payer OTHER, SELFPAY ==
--- OUTSIDE RECORDS SUMMARY | 2024-10-11 13:38 | XMS_ITS ---
Author Organization [facility] in [place] Address [address] [place] [address] Care Team Providers Care Grades 1 Thru 6 Visiting Teacher Name Role Phone Keith Weiss DO Primary Care Provider Andrzej Pulido Unavailable [phone] REASON FOR VISIT results to PCP Encounters Encounter Location Date Provider Diagnosis [facility] [address] [place] [address] 10/11/2024 Andrzej Martin Plan Of Treatment No Information Progress Notes * Omer QUINN WDOB:1965 (59 yo M)Acc No.[id number]:10/11/2024 Patient: Omer RUIZ :1965 A ge:59 Y S ex:Male Address:[place], [address] * true * Date: Generated for Salas sullivan/Abelino/eTransmitting on: 0 11/02/2024 08:36 AM EDT
--- OUTSIDE RECORDS SUMMARY | 2024-10-18 23:59 | XMS_ITS | Continuity of Care Document ---
Author Organization [facility] nter Address [address] [place] [address]- Care Team Providers Care Laundromat Manager Name Role Phone Keith Weiss Primary Care Physician Encounter 10/18/24 - 10/18/24 [facility] [address] [place] [address]- Encounter Diagnosis Community acquired pneumonia(Discharge Diagnosis) - 10/18/24 HTN (hypertension)(Discharge Diagnosis) - 10/18/24 Discharge Disposition: Home Attending Physician: Keith Weiss DO Encounter Type: Outpatient Clinic Allergies, Adverse Reactions, Alerts No Known Allergies Assessment and Plan Extracted from: Title:Office Visit Note Author:Neymar Weiss DO Date:10/18/24 1. Community acquired pneumonia J18.9 again, not sure if pertussis or legionella is the responsible organism, zithromax should cover both... I will continue zithromax for another week, finish the prednisone. continue albuterol tid. I will see him back in a week, hopefully he will be 90% by then. increase activity to as tolerated. 2. HTN (hypertension) I10 bp is ok on present dose of zestril, continue same. Orders: Zithromax 250 mg oral tablet, 1 tab(s) ( 250 mg ), Oral, Daily, # 7 tab(s), 0 Refill(s), [id number], 1 tab(s) Oral Daily, 185, cm, 10/18/24 9:54:00 EDT, Height, 124.8, kg, 10/18/24 10:00:00 EDT, Weight Dosing, (Ordered) glyBURIDE micronized 3 mg oral tablet, 0.5 tab(s) ( 1.5 mg ), Oral, Daily, # 90 tab(s), 1 Refill(s), Pharmacy: [facility] #[id number], 185, cm, 07/20/24 9:23:00 EDT, Height, 123.8, kg, 07/20/24 9:29:00 EDT, Weight Dosing, (Ordered) Evaluation and Management Charges 72412 Office Visit - established pt, Level 4 - Completed -- 10/18/24 9:51:00 EDT, Qty: 1, Community acquired pneumonia HTN (hypertension) Future Appointments Future Scheduled Tests Laboratory* Hemoglobin A1c Standard 02/04/24 Radiology* XR Chest 2 Views 05/09/24 Immunizations Given and Recorded Vaccine Date Status Refusal Reason influenza, unspecified formulation 01/27/20 Record ed influenza, inactivated 02/21/18 Recorded Medications acetaminophen/butalbital/caffeine 300 mg-50 mg-40 mg oral capsule 1 cap(s), PO, q4hr, PRN: NEEDED FOR HEADACHE, # 36 cap(s), 1 Refill(s), Pharmacy: [facility] #[id number], 1 cap(s) PO q4hr,PRN: NEEDED FOR HEADACHE, 182.88, cm, 03/26/21 16:43:00 EST, Height/Length Dosing, 133.81, kg, 03/26/21 16:43:00 EST, Weight Dosing Start Date: 04/06/22 Status: Ordered Quantity: 36.0 Unit: cap(s) Repeat number: 2 benzonatate 100 mg oral capsule 2 cap(s) ( 200 mg ), Oral, # 30 cap(s), 0 Refill(s) Start Date: 10/11/24 Status: Ordered Quantity: 30.0 Unit: cap(s) Repeat number: 1 cyclobenzaprine 10 mg oral tablet 1 tab(s) ( 10 mg ), PO, TID, PRN: for spasm, # 30 tab(s), 0 Refill(s) Start Date: 07/01/20 Status: Ordered Quantity: 30.0 Unit: tab(s) Repeat number: 1 DULoxetine 60 mg oral delayed release capsule 1 cap(s), Oral, Daily, Instructions: DO NOT CRUSH OR CHEW, # 90 cap(s), 3 Refill(s), Pharmacy: [facility] #[id number], TAKE 1 CAPSULE BY MOUTH DAILY. DO NOT CRUSH OR CHEW, 185, cm, 05/29/24 10:17:00 EST, Height, 123.1, kg, 06/09/24 8:25:00 EST, Weight Dosing Start Date: 06/19/24 Status: Ordered Quantity: 90.0 Unit: cap(s) Repeat number: 1 Emgality Prefilled Pen 120 mg/mL subcutaneous solution qMonth, 0 Refill(s) Start Date: 03/07/24 Status: Ordered Repeat number: 1 fenofibrate 48 mg oral tablet 1 tab(s), Oral, Daily, # 90 tab(s), 3 Refill(s), Pharmacy: [facility] #[id number], TAKE 1 TABLET BY MOUTH DAILY, 185, cm, 07/20/24 9:23:00 EDT, Height, 123.8, kg, 07/20/24 9:29:00 EDT, Weight Dosing Start Date: 09/28/24 Status: Ordered Quantity: 90.0 Unit: tab(s) Repeat number: 1 glucose test strips glucose test strips, See Instructions, Instructions: test daily E11.9, # 100 EA, 10 Refill(s), Pharmacy: [facility] #[id number], test daily; E11.9, Supply, 185, cm, 04/17/24 8:21:00 EST, Height,120.5, kg, 04/17/24 8:24:00 EST, Weight Dosing Start Date: 04/17/24 Status: Ordered Quantity: 100.0 Unit: EA Repeat number: 11 Indications: Type 2 diabetes mellitus without complications; glyBURIDE micronized 3 mg oral tablet 0.5 tab(s) ( 1.5 mg ), Oral, Daily, # 90 tab(s), 1 Refill(s), Pharmacy: [facility] #[id number], 185, cm, 07/20/24 9:23:00 EDT, Height, 123.8, kg, 07/20/24 9:29:00 EDT, Weight Dosing Start Date: 08/28/24 Status: Ordered Quantity: 90.0 Unit: tab(s) Repeat number: 1 lancets lancets, See Instructions, Instructions: test daily E11.9, # 100 EA, 10 Refill(s), [id number], test daily; E11.9, Supply, 185, cm, 04/17/24 8:21:00 EST, Height, 120.5, kg, 04/17/24 8:24:00 EST, Weight Dosing Start Date: 04/17/24 Status: Ordered Quantity: 100.0 Unit: EA Repeat number: 11 Indications: Type 2 diabetes mellitus without complications; lisinopril 20 mg oral tablet 1 tab(s), Oral, Daily, # 90 tab(s), 3 Refill(s), [id number], TAKE 1 TABLET BY MOUTH DAILY, 185, cm, 05/29/24 10:17:00 EST, Height, 123.1, kg, 06/09/24 8:25:00 EST, Weight Dosing Start Date: 06/19/24 Status: Ordered Quantity: 90.0 Unit: tab(s) Repeat number: 1 metFORMIN 500 mg oral tablet 2 tab(s) ( 1,000 mg ), Oral, BID, # 360 tab(s), 3 Refill(s), [id number],2 tab(s) Oral BID, 185, cm, 02/21/24 15:50:00 EST, Height, 120, kg, 02/21/24 15:54:00 EST, Weight Dosing Start Date: 02/21/24 Status: Ordered Quantity: 360.0 Unit: tab(s) Repeat number: 4 NexIUM 20 mg oral delayed release capsule 0 Refill(s) Start Date: 10/18/24 Status: Ordered Repeat number: 1 predniSONE 10 mg oral tablet See Instructions, Oral, As Directed, Instructions: Take 3 tabs by mouth daily x3 days, then 2 tabs daily x3 days, then 1 tab daily x3 days, # 18 tab(s), 0 Refill(s) Start Date: 10/11/24 Status: Ordered Quantity: 18.0 Unit: tab(s) Repeat number: 1 Xarelto 20 mg oral tablet 1 tab(s), Oral, Daily, # 90 tab(s), 3 Refill(s), Pharmacy: [facility] #[id number], TAKE 1 TABLET BY MOUTH DAILY, 185, cm, 07/20/24 9:23:00 EDT, Height, 123.8, kg, 07/20/24 9:29:00 EDT, Weight Dosing Start Date: 09/28/24 Status: Ordered Quantity: 90.0 Unit: tab(s) Repeat number: 1 Zithromax 250 mg oral tablet 1 tab(s) ( 250 mg ), Oral, Daily, # 7 tab(s), 0 Refill(s), Pharmacy: [facility] #[id number], 1tab(s) Oral Daily, 185, cm, 10/18/24 9:54:00 EDT, Height, 124.8, kg, 10/18/24 10:00:00 EDT, Weight Dosing Start Date: 10/18/24 Status: Ordered Quantity: 7.0 Unit: tab(s) Repeat number: 1 Problem List Condition Confirmation Course Effective Dates Status Health Status Informant Chest pain, unspecified Confirmed Active Cluster headaches Confirmed Active Cluster headache Confirmed Active Community acquired pneumonia Confirmed Active Diabetes Confirmed Active Shortness of breath Confirmed Active Headache Confirmed Active Hypercalcemia Confirmed Active Hypercoagulopathy Confirmed Active Hyperlipidemia Confirmed Active HTN (hypertension) Confirmed Active Joint pain Confirmed Active Pain in right knee Confirmed Active Lumbar radiculopathy Confirmed Active Wellness examination Confirmed Active RUQ abdominal pain Confirmed Active Procedures Procedure Date Related Diagnosis Body Site Status Colonoscopy 12/27/17 Completed Bilateral inguinal hernia 2015 Completed Inferior vena cava filter present 2013 Completed Cholecystectomy 2010 Completed Previous back surgery 1 2000 C ompleted Arthroscopy of knee 2 Com pleted 12 rods and 4 screws in L4 and L5 2left knee x 3 last one done in 2012 Social History Social History Type Response Smoking Status Smoking tobacco use: Former tobacco user;Never; Stopped at age: 38; entered on: 03/07/24 Sex Male Sex Representation Male (finding) Outpatient Note * Keith Weiss DO: PERFORM Event Display: Office/Clinic Note Authored Date: [id number] LYLY KIDD :1965 Age:59 years Sex:MALE Registration Date:10/18/2024 Primary Care Physician: Abhishek DO , Keith P Chief Complaint 1 week follow up pna History of Present Illness Lyly is here at my request to recheck his pertussis/legionella infection. he was recently hosp in [place] with this, legionella titers came back positive, as well as pertussis titers (IgM) I switched his antibiotics from cefdinir to zithromax, and left him on the prednisone taper. i also restarted his albuterol inhaler. I suspected he had signfiicant inflammation from the pertussis still gets winded with any exertion. cough is better. finishes prednisone tomorrow. Review of Systems Constitutional: No fevers, chills, sweats ENT: No ear pain, nasal congestion, sore throat Respiratory: persists with shortness of breath with exertion, cough is improved. cough is nonproductive. Cardiovascular: No Chest pain, palpitations, syncope Gastrointestinal: No nausea, vomiting, diarrhea Genitourinary: No hematuria Vahid/Lymph: Negative for bruising tendency, swollen lymph glands Endocrine: Negative for excessive thirst, excessive hunger Musculoskeletal: No back pain, neck pain, joint pain, muscle pain, decreased range of motion Integumentary: No rash, pruritus, abrasions Neurologic: Alert & oriented X 4 Psychiatric: No anxiety, depression Physical Exam Vitals & Measurements HR: 61 (Peripheral) BP: 130/78 SpO2: 98% HT: 185 cm WT: 124.8 kg BMI: 36.46 BSA: 2.53 General: Alert and oriented, well nourished, no acute distress HENT: Normocephalic, clear tympanic membranes, normal hearing, moist oral mucosa, no scleral icterus, no sinus tenderness Neck: Supple, non-tender, no carotid bruits, no JVD, no lymphadenopathy Lungs: Clear to auscultation and percussion, non-labored respiration, he is considerably less coarse, and is moving much more air as compared to last week. Heart: Normal rate, regular rhythm, no murmur, gallop or edema Abdomen: Soft, non-tender, non-distended, normal bowel sounds, no masses. Musculoskeletal: Normal range of motion and strength, no tenderness or swelling. Skin: Skin is warm, dry and pink, no rashes or lesions Neurologic: Awake, alert and oriented X4, CN II-XII intact. Psychiatric: Cooperative, appropriate mood and affect. Assessment/Plan 1. Community acquired pneumonia J18.9 again, not sure if pertussis or legionella is the responsible organism, zithromax should cover both... I will continue zithromax for another week, finish the prednisone. continue albuterol tid. I will see him back in a week, hopefully he will be 90% by then. increase activity to as tolerated. 2. HTN (hypertension) I10 bp is ok on present dose of zestril, continue same. Orders: Zithromax 250 mg oral tablet, 1 tab(s) ( 250 mg ), Oral, Daily, # 7 tab(s), 0 Refill(s), Pharmacy: [facility] #[id number], 1 tab(s) Oral Daily, 185, cm, 10/18/24 9:54:00 EDT, Height, 124.8, kg, 10/18/24 10:00:00 EDT, Weight Dosing, (Ordered) glyBURIDE micronized 3 mg oral tablet, 0.5 tab(s) ( 1.5 mg ), Oral, Daily, # 90 tab(s), 1 Refill(s), Pharmacy: [facility] #[id number], 185, cm, 07/20/24 9:23:00 EDT, Height, 123.8, kg, 07/20/24 9:29:00 EDT, Weight Dosing, (Ordered) Evaluation and Management Charges 08949 Office Visit - established pt, Level 4 - Completed -- 10/18/24 9:51:00 EDT, Qty: 1, Community acquired pneumonia HTN (hypertension) Problem List/Past Medical History Ongoing Chest pain, unspecified Cluster headache Cluster headaches Community acquired pneumonia Diabetes Headache HTN (hypertension) Hypercalcemia Hypercoagulopathy Hyperlipidemia Joint pain Lumbar radiculopathy Pain in right knee RUQ abdominal pain Shortness of breath Wellness examination Historical Elevated glucose Hypercholesterolemia hypertension left torn meniscus Leg DVT (deep venous thromboembolism), acute Procedure/Surgical History •Colonoscopy (12/28/2017)•Bilateral inguinal hernia (2015)•Inferior vena cava filter present (2013)•Cholecystectomy (2010)•Previous back surgery (2000)•Arthroscopy of knee Medications acetaminophen/butalbital/caffeine 300 mg-50 mg-40 mg oral capsule, 1 cap(s), Oral, q4hr, PRN, 1 refills benzonatate 100 mg oral capsule, 200 mg= 2 cap(s), Oral cyclobenzaprine 10 mg oral tablet, 10 mg= 1 tab(s), Oral, TID, PRN DULoxetine 60 mg oral delayed release capsule, 1 cap(s), Oral, Daily, DO NOT CRUSH OR CHEW Emgality Prefilled Pen 120 mg/mL subcutaneous solution, qMonth fenofibrate 48 mg oral tablet, 1 tab(s), Oral, Daily glucose test strips, See Instructions, 10 refills, test daily E11.9 glyBURIDE micronized 3 mg oral tablet, 1.5 mg= 0.5 tab(s), Oral, Daily lancets, See Instructions, 10 refills, test daily E11.9 lisinopril 20 mg oral tablet, 1 tab(s), Oral, Daily metFORMIN 500 mg oral tablet, 1000 mg= 2 tab(s), Oral, BID, 3 refills NexIUM 20 mg oral delayed release capsule predniSONE 10 mg oral tablet, See Instructions, Oral, As Directed, Take 3 tabs by mouth daily x3 days, then 2 tabs daily x3 days, then 1 tab daily x3 days Xarelto 20 mg oral tablet, 1 tab(s), Oral, Daily Zithromax 250 mg oral tablet, 250 mg= 1 tab(s), Oral, Daily Allergies No known allergies Social History Alcohol Use: Current. Beer, 1-2 times per week, 2 drinks/episode average. Electronic Cigarette/Vaping Electronic Cigarette Use: Never. Employment/School disability Home/Environment Lives with Children, Spouse. Living situation: Home/Independent. Home equipment: Cane, Glucose monitoring. Substance Use Substance use: Never. Tobacco Former tobacco user Tobacco Use:. Stopped age 38 Years. Never Smokeless Tobacco Use:. Family History Diabetes mellitus: Mother and Grandparent. High cholesterol: Mother. Hypertension: Mother and Grandparent. Immunizations Vaccine Date Status influenza, unspecified formulation 01/27/2020 Recorded influenza, inactivated 02/21/2018 Recorded [Electronically Signed on: 10/18/2024 10:14 EDT] Keith Guy DO [Verified on: 10/18/2024 10:14 EDT] Keith Weiss DO Patient Care team information Care Team Personnel Name: Keith Weiss DO Position: [facility] Physician Acute/ED/Clinic/Care Member Role: Primary Care Physician Address: [address] [place] [address] Telecom: Care Team Related Persons Name: BERNABE, GENE Name: OSKARSONJAXENA Insurance Providers Guarantor name: LYLY HAUSER OSKARSONJA Health Plan Information #: 1 Payer: [employer] Benefits Payer Identifier: MIKE Member Number: [id number] Group Number: [id number] Subscriber Identifier: [id number] Relationship to Subscriber: spouse Coverage Type: PRIVATE HEALTH INSURANCE Coverage Verification Date: MIKE Telecom: [phone] Address: [facility] [address] [place] [address]
--- OUTSIDE RECORDS SUMMARY | 2024-10-26 23:59 | XMS_ITS | Continuity of Care Document ---
Author Organization [facility] nter Address [address] [place] [address]- Care Team Providers Care Continuing Education Instructor Name Role Phone Keith Weiss Primary Care Physician Encounter 10/26/24 - 10/26/24 [facility] [address] [place] [address]- Encounter Diagnosis Community acquired pneumonia(Discharge Diagnosis) - 10/26/24 Discharge Disposition: Home Attending Physician: Keith Weiss DO Encounter Type: Outpatient Clinic Allergies, Adverse Reactions, Alerts No Known Allergies Assessment and Plan Extracted from: Title:Office Visit Note Author:Neymar Weiss DO Date:10/26/24 1. Community acquired pneumonia J18.9 I am uncertain as to why he continues with dyspnea. I will repeat a CT chest at [place], first CT was done there which showed airspace disease, CXR didn't show anything. I will arrange to have him see pulmonary in [place]. hold on albuterol for now. Evaluation and Management Charges 76983 Office Visit - established pt, Level 4 - Completed -- 10/26/24 9:50:00 EDT, Qty: 1, Community acquired pneumonia Future Appointments Future Scheduled Tests Laboratory* Hemoglobin A1c Standard 02/04/24 Radiology* CT Chest W/Contrast 10/26/24 * XR Chest 2 Views 05/09/24 Immunizations Given and Recorded Vaccine Date Status Refusal Reason influenza, unspecified formulation 01/27/20 Record ed influenza, inactivated 02/21/18 Recorded Medications acetaminophen/butalbital/caffeine 300 mg-50 mg-40 mg oral capsule 1 cap(s), PO, q4hr, PRN: NEEDED FOR HEADACHE, # 36 cap(s), 1 Refill(s), [id number], 1 cap(s) PO q4hr,PRN: NEEDED FOR HEADACHE, [...] CHEW, # 90 cap(s), 3 Refill(s), Pharmacy: [facility] #[id number], TAKE 1 CAPSULE BY MOUTH DAILY. DO [...] Daily, # 90 tab(s), 3 Refill(s), Pharmacy: [facility] #[id number], TAKE 1 TABLET BY MOUTH DAILY, 185, cm, 07/20/24 9:23:00 EDT, Height, 123.8, kg, 07/20/24 9:29:00 EDT, Weight Dosing Start Date: 09/28/24 Status: Ordered Quantity: 90.0 Unit: tab(s) Repeat number: 1 glucose test strips glucose test strips, See Instructions, Instructions: test daily E11.9, # 100 EA, 10 Refill(s), [facility] #[id number], test daily; E11.9, Supply, 185, cm, 04/17/24 8:21:00 EST, Height,120.5, kg, 04/17/24 8:24:00 EST, Weight Dosing Start Date: 04/17/24 Status: Ordered Quantity: 100.0 Unit: EA Repeat number: 11 Indications: Type 2 diabetes mellitus without complications; glyBURIDE micronized 3 mg oral tablet 0.5 tab(s) ( 1.5 mg ), Oral, Daily, # 90 tab(s), 1 Refill(s), Pharmacy: [facility] #[id number], 185, cm, 07/20/24 9:23:00 EDT, Height, 123.8, kg, 07/20/24 9:29:00 EDT, Weight Dosing Start Date: 08/28/24 Status: Ordered Quantity: 90.0 Unit: tab(s) Repeat number: 1 lancets lancets, See Instructions, Instructions: test daily E11.9, # 100 EA, 10 Refill(s), Pharmacy: [facility] #[id number], test daily; E11.9, Supply, 185, cm, 04/17/24 8:21:00 EST, Height, 120.5, kg, 04/17/24 8:24:00 EST, Weight Dosing Start Date: 04/17/24 Status: Ordered Quantity: 100.0 Unit: EA Repeat number: 11 Indications: Type 2 diabetes mellitus without complications; lisinopril 20 mg oral tablet 1 tab(s), Oral, Daily, # 90 tab(s), 3 Refill(s), Pharmacy: [facility] #[id number], TAKE 1 TABLET BY MOUTH DAILY, 185, cm, 05/29/24 10:17:00 EST, Height, 123.1, kg, 06/09/24 8:25:00 EST, Weight Dosing Start Date: 06/19/24 Status: Ordered Quantity: 90.0 Unit: tab(s) Repeat number: 1 metFORMIN 500 mg oral tablet 2 tab(s) ( 1,000 mg ), Oral, BID, # 360 tab(s), 3 Refill(s), Pharmacy: [facility] #[id number],2 tab(s) Oral BID, 185, cm, 02/21/24 15:50:00 [...] Daily, # 90 tab(s), 3 Refill(s), Pharmacy: [facility] #[id number], TAKE 1 TABLET BY MOUTH DAILY, 185, cm, 07/20/24 9:23:00 EDT, Height, 123.8, kg, 07/20/24 9:29:00 EDT, Weight Dosing Start Date: 09/28/24 Status: Ordered Quantity: 90.0 Unit: tab(s) Repeat number: 1 Zithromax 250 mg oral tablet 1 tab(s) ( 250 mg ), Oral, Daily, # 7 tab(s), 0 Refill(s), Pharmacy: [facility] #[id number], 1tab(s) Oral Daily, 185, cm, 10/18/24 9:54:00 [...] x 3 last one done in 2012 Vital Signs Most recent to oldest [Reference Range]: 1 Height 185 cm (10/26/24 9:50 AM) Height/Length Measured (inches) 72.83 in (10/26/24 9:50 AM) Weight 124.8 kg (10/26/24 9:50 AM) Weight Measured (lbs) 275.137 lb (10/26/24 9:50 AM) Weight Dosing 124.800 kg (10/26/24 9:50 AM) Body Mass Index 36.46 kg/m2 (10/26/24 9:50 AM) [place] Body Weight Calculated 79.52 kg (10/26/24 9:50 AM) BSA Measured 2.53 m2 (10/26/24 9:50 AM) Peripheral Pulse Rate [60-100 bpm] 90 bp m (10/26/24 9:50 AM) Blood Pressure [90-120/60-80 mmHg] 160/1 00mmHg *HI* (10/26/24 9:50 AM) BP Systolic Repeat [90-120 mmHg] 158 mmH g *HI* (10/26/24 9:50 AM) BP Diastolic Repeat [60-80 mmHg] 100 mmH g *HI* (10/26/24 9:50 AM) SpO2 [92-100 %] 99 % (10/26/24 9:50 AM) Social History Social History Type Response Smoking Status Smoking tobacco use: Former tobacco user;Never; Stopped at age: 38; entered on: 03/07/24 Sex Male Sex Representation Male (finding) Reason for Referral Referred By Effective Date Status Indication Reason Referred by: Keith Weiss DO [id number] 0-04:00 Active persistent shortness of breath, recent legionella and pertussis. Outpatient Note * Keith Weiss DO: PERFORM Event Display: Office/Clinic Note Authored Date: [id number] LYLY KIDD :1965 Age:59 years Sex:MALE Registration Date:10/26/2024 Primary Care Physician: Keith Weiss DO Chief Complaint 1 week follow up History of Present Illness Lyly is here to recheck his Legionella/pertusis infection. he was hosp with this, pertussis was positive IgM, Legionella did not have IgM and IgG titers. I switched his antibiotic to cefdinir to zithromax, and when i saw him a week ago, i continued thatfor another week. he is also on albuterol for the cough he persists with shortness of breath with any exertion, as well as chest pain. recall that he has had extensive workup for chest pain previously, including a normal cardiac cath. he has finished zithromax. hasn't used albuterol in two days. Review of Systems Constitutional:nofevers, chills, sweats ENT: No ear pain, nasal congestion, sore throat Respiratory: persists with shortness of breath with any exertion, minimal cough at this point. Cardiovascular: admits to chest wall pain Gastrointestinal: No nausea, vomiting, diarrhea, no change in bowel habits Genitourinary: No hematuria, dysuria Neurological: no numbness or tingling Physical Exam Vitals & Measurements HR: 90 (Peripheral) BP: 160/100 BP: 158/100(Repeat) SpO2: 99% HT: 185 cm WT: 124.8 kg BMI: 36.46 BSA: 2.53 ENT: throat shows no erythema, EAC's and TM's unremarkable Neck: supple, no adenop, bruits, JVD Lungs: Clear to auscultation and percussion, non-labored respiration. He does appear to labor just taking deep breaths. Heart: Normal rate, regular rhythm, no murmur, gallop or edema. Abdomen: Soft, non-tender, non-distended, normal bowel sounds, no masses. Assessment/Plan 1. Community acquired pneumonia J18.9 I am uncertain as to why he continues with dyspnea. I will repeat a CT chest at [place], first CT was done there which showed airspace disease, CXR didn't show anything. I will arrange to have him see pulmonary in [place]. hold on albuterol for now. Evaluation and Management Charges 70292 Office Visit - established pt, Level 4 - Completed -- 10/26/24 9:50:00 EDT, Qty: 1, Community acquired pneumonia Future Orders CT Chest W/Contrast, 10/26/24 Routine, Pneumonia, complication suspected, xray done, Allow Modification Per Radiologist, Community acquired pneumonia, Transport Mode: Walk, at [place]., Future Order, No, AUC Mod: ME, AUC G-Code: G1004 Referral Orders Referral Ambulatory [facility], Pulmonary Disease, persistent shortness of breath, recent legionella and pertussis., External Referral, 10/26/24 10:11:00 EDT, [facility] pulmonary Problem List/Past Medical History Ongoing Chest pain, [...] influenza, inactivated 02/21/2018 Recorded [Electronically Signed on: 10/26/2024 10:13 EDT] Keith Weiss DO [Verified on: 10/26/2024 10:13 EDT] Keith Weiss DO Patient Care team information Care Team Personnel Name: Keith Weiss DO Position: [facility] Physician Acute/ED/Clinic/Care Member Role: Primary Care Physician Address: [address] [place] [address] Telecom: Care Team Related Persons Name: JESSICA KIDD Name: XENA KIDD Insurance Providers Guarantor name: LYLY KIDD Health Plan Information #: 1 Payer: [employer] Benefits Payer Identifier: MIKE Member Number: [id number] Group Number: [id number] Subscriber Identifier: [id number] Relationship to Subscriber: spouse Coverage Type: PRIVATE HEALTH INSURANCE Coverage Verification Date: MIKE Telecom: [phone] Address: [facility] [address] [place] [address]
--- OUTSIDE RECORDS SUMMARY | 2024-11-02 08:35 | XMS_ITS | Encounter Summary ---
Author Organization [facility] Address [address] [place] [address] Care Team Providers Care Liquid Fertilizer Servicer Name Role Phone Keith Weiss Primary Care Provider [phone] Source Comments In the event this information is protected by the Federal Confidentiality of Alcohol and Drug AbusePatient Records regulations: The Federal rules restrict any use of the information to criminally investigate or prosecute any alcohol or drug abuse patient.[facility] Encounter Details Date Type Department Care Team (Late st Contact Info) Description 10/02/2024 [place] [address] Provider, [facility] Financial Clearance Social History Tobacco Use Types Packs/Day Years Used Date Smoking Tobacco: Never Smokeless Tobacco: Never Alcohol Use Standard Drinks/Week Comments Yes 0 (1 standard drink = 0.6 oz pur e alcohol) socially Sex and Gender Information Value Date Recorded Sex Assigned at Not on file Legal Sex Male 9:13 AM EST Gender Identity Not on file Sexual Orientation Not on file documented as of this encounter Functional Status * Are you deaf or do you have serious difficulty hearing? Answer Date of Assessment Author No 06/20/2014 10:35 AM EST Tej Harry LPN * Are you blind or do you have serious difficulty seeing, even when wearing glasses? Answer Date of Assessment Author No 06/20/2014 10:35 AM Tej Jimenez LPN * Do you have serious difficulty walking or climbing stairs? Answer Date of Assessment Author No 06/20/2014 10:35 AM Tej Jimenez LPN * Do you have difficulty dressing or bathing? Answer Date of Assessment Author No 06/20/2014 10:35 AM Tej Jimenez LPN * Because of a physical, mental, or emotional condition, do you have difficulty doing errands alone such as visiting a doctor's office or shopping? Answer Date of Assessment Author No 06/20/2014 10:35 AM Tej Jimenez LPN documented as of this encounter Mental Status * Because of a physical, mental, or emotional condition, do you have serious difficulty concentrating, remembering, or making decisions? Answer Entry Date Author No 06/20/2014 10:35 AM Tej Jimenez LPN documented in this encounter Plan of Treatment Not on file documented as of this encounter Visit Diagnoses Not on filedocumented in this encounter Care Teams Liquid Fertilizer Servicer Relationship Specialty Start Date End Date Keith Weiss [address] [place] [address] PCP - General 08/04/00 documented as of this encounter
--- OUTSIDE RECORDS SUMMARY | 2024-11-02 08:35 | XMS_ITS | Encounter Summary ---
Author Organization [facility] Address [address] [place] [address] Phone Care Team Providers Care Utilization Management Manager Name Role Phone Keith Weiss DO Primary Care Provider + Encounter Details Date Type Department Care Team ([facility] st Contact Info) Description 04/11/2024 Scanned Document [facility] [address] [place] [address] Scanning, Generic Provider Social History Tobacco Use Types Packs/Day Years Used Date Smoking Tobacco: Never Assessed Sex and Gender Information Value Date Recorded Sex Assigned at Not on file Legal Sex Male 10:21 AM EST Gender Identity Not on file Sexual Orientation Not on file documented as of this encounter Plan of Treatment Not on file documented as of this encounter Visit Diagnoses Not on filedocumented in this encounter Care Teams Utilization Management Manager Relationship Specialty Start Date End Date Keith Weiss DO [address] [place] [address] PCP - General 11/04/20 documented as of this encounter
--- NOTE | 2024-11-02 08:36 | CT_ITS ---
The [address] [address] Patient Name: LYLY KIDD MRN: [id number] date: 1965 Sex: M Assigned Patient Location: CT Current Patient Location: CT Accession/Order Number: [id number] Exam Date: 11/02/2024 09:47 Report Date: 11/02/2024 09:53 At the request of: KIMI JACINTO Procedure: CT chest w con CT CHEST WITH INTRAVENOUS CONTRAST: CLINICAL HISTORY: Cough and shortness of breath with exertion for the past 2 months. Follow-up pneumonia. COMPARISON: 10/04/2024 TECHNIQUE: Spiral images were obtained through the chest following intravenous administration of 100 mL of Omnipaque 300. Images were reviewed using both narrow and wide window settings. This CT exam was performed using one or more following dose reduction techniques: Automated exposure control, adjustment of the mA and/or kV according to patient size, or use of iterative reconstruction technique. FINDINGS: The heart is not enlarged. There is no pericardial effusion. No aortic aneurysm or dissection is seen. There is no mediastinal or hilar lymphadenopathy. The bony structures are intact. Minor endplate spurring is present at the spine. There is minimal linear scarring or atelectasis at the lower lungs. The lower lobe infiltrative changes present at the time of the comparison have resolved. No new consolidation, pleural effusion or pneumothorax is seen. No pulmonary nodularity is identified. Limited cuts through the upper abdomen show fatty infiltration of the liver. CT/CT chest w con IMPRESSION: RESOLUTION OF INFILTRATIVE CHANGES SEEN PREVIOUSLY. NO ACUTE FINDINGS. INCIDENTAL FATTY LIVER. Impression dictated by: Africa Soni M.D. 11/02/2024 9:53 AM Dictation Location: [place] [address] Electronically authenticated by: [id number] Y Date: 11/02/2024 09:53
--- OUTSIDE RECORDS SUMMARY | 2024-11-02 08:36 | XMS_ITS | Clinical Summary ---
Author Organization [facility] Address [address] [place] [address] Care Team Providers Care Machinist Class B Name Role Phone Keith Wiess MD Primary Care Provider [phone] Allergies No known active allergies Medications DULoxetine (Cymbalta) [address] capsule Take 60 mg by mouth Daily Do not crush or chew. 1 capsule Active fenofibrate (Tricor) 48 MG tablet Take 48 mg by mouth Daily t 1 tablet Active rivaroxaban (Xarelto) 20 MG tablet Take 20 mg by mouth in the evening. Take with meals Take with food.t 1 tablet with food Active HYDROcodone-acet aminophen ([place]) 5-325 MG tablet Take by mouth Active butalbital-aceta minophen-caffein e (Fioricet) 50-300-40 MG capsule Take 1 capsule by mouth every 6 (six) hours if needed 2 Active cyclobenzaprine (Flexeril) 10 MG tablet Take 10 mg by mouth at bedtime 4 Active esomeprazole (NexIUM) [address] capsule Take 20 mg by mouth in the morning. Take before meals. Active lisinopril 20 MG tabletIndication s:Hypertension Take 30 mg by mouth Daily Active Rimegepant Sulfate (Nurtec) 75 MG tablet dispersibleIndic ations:Chronic migraine without aura without status migrainosus, not intractable DISSOLVE 1 TABLET ON THE TONGUE AT ONSET OF MIGRAINE 8 tablet 2 4 Active Blood Glucose Monitoring Suppl (COFCO Verio Flex System) w/Device kit USE DIRECTED DAILY 4 Active [employer] Verio test strip USE DIRECTED TO TEST BLOOD SUGAR EVERY DAY 4 Active Ozempic, 0.25 or 0.5 MG/DOSE, 2 MG/3ML solution pen-injector INJECT 0.25 MG UNDER THE SKIN EVERY WEEK . ROTATE INJECTION SITES. 4 Active galcanezumab (Emgality, 300 MG Dose,) 100 MG/ML prefilled syringeIndicatio ns:Chronic cluster headache, not intractable Inject 300 mg under the skin monthly during acute cluster period. Return to 120 mg dosing following exacerbation. 3.08 mL 3 4 Active galcanezumab (Emgality) 120 MG/ML auto-injectorInd ications:Chronic migraine without aura without status migrainosus, not intractable Inject 1 Syringe (120 mg) under the skin every 30 (thirty) days 1 mL 2 5 Active Active Problems Problem Noted Date Diagnosed Date Paresthesia 08/08/2023 Polyneuropathy 08/08/2023 Chronic cluster headache, not intractable 2023 Overview (08/08/2023): It is my impression that the patient has cluster headaches. Previous imaging showed a cyst which has been stable for many years though I do believe overall this is most likely a primary headache disorder. It is possible there is also a migrainous component to this and recently Nurtec has been effective supporting this diagnosis. Patient failed verapamil, lithium, and duloxetine. Patient is an ideal candidate for CGRP due to failed medications and cluster type headache and has done well overall on Emgality 120 mg monthly injections. Due to his recent exacerbation we did update imaging with MRI on 02/16/23 which was unremarkalbe. I have given consideration to GCA given his age, though his symptoms seems do not correlate given the alternating unilateral quality, lack of jaw claudication, and lack of visual changes. Increasing to Emgality 300mg has been effective at aborting his recent episode of clustering. PLAN: - Ok to resume Emgality 120mg SC monthly injections. - May again consider Emgality 300mg SC for 2 months for return of episodic clustering. - Continue Nurtec 75 mg ODT as an abortive; side effects discussed in detail and the patient would like to proceed. - Apparently, previously treated with oxygen in the ED and this wasn't helpful? - Avoiding triptans due to CV risk factors including HTN - Ubrelvy less effective than Nurtec - Recommended adequate hydration, sleep hygiene, good nutrition, and regular exercise. Essential hypertension 08/08/2023 Overview (08/08/2023): Continue following closely with PCP for management. BP is again elevated at today's visit. Though this may be related to pain I have advised the patient to reach out to PCP today to further discuss this. BP has been elevated at previous visits as well. History of blood clots 08/08/2023 Overview (08/08/2023): Important comorbid condition. He is anticoagulated on Xarelto and has been doing well. Migraine 08/08/2023 Chronic migraine without aur a without status migrainosus, not intractable 08/08/2023 Encounters Date Type Department Care Team Description 09/13/2024 Telephone [place] [id number] [address] Saleem Gao ARRT Med Refill 08/16/2024 11:00 AM EDT Office Visit [facility] [address] [address] Bethany Cross NP Chronic cluster headache, not intractable (Primary Dx); Essential hypertension ; History of blood clots; Lumbar radiculopathy 08/16/2024 Bamboo flowsheet [facility] [address] [address] Bethany Cross NP from Last 3 Months Family History Medical History Relation Name Comments Clotting disorder Other Hypertension Sibling Relation Name Status Comments Other Sibling Social History Tobacco Use Types Packs/Day Years Used Date Smoking Tobacco: Never Smokeless Tobacco: Never Tobacco Cessation:Counseling Given: Not Answered Alcohol Use Standard Drinks/Week Comments Yes 3 (1 standard drink = 0.6 oz pur e alcohol) Sex and Gender Information Value Date Recorded Sex Assigned at Not on file Legal Sex Male 7:08 PM EDT Gender Identity Not on file Sexual Orientation Not on file Last Filed Vital Signs Vital Sign Reading Time Taken Comments Blood Pressure 148/96 03/27/2024 9:46 AM EST Pulse 82 03/27/2024 9:46 AM EST Temperature - - Respiratory Rate 18 08/09/2023 11:23 AM EDT Oxygen Saturation 97% 08/09/2023 11:23 AM EDT Inhaled Oxygen Concentration - - Weight 116 kg (256 lb) 03/27/2024 9:46 AM EST Height 182.9 cm (6') 11/30/2023 9:27 AM EDT Body Mass Index 34.72 11/30/2023 9:27 AM EDT Plan of Treatment Health Maintenance Due Date Last Done Comments CT Colonography 1966 FIT-DNA 1966 FIT 1966 FOBT 1966 Sigmoidoscopy 1966 Influenza Vaccine (#1) 2024 , 01/27/2020, 02/13/2019, Additional history exists Colonoscopy 12/29/2027 12/28/2017 Colorectal Cancer Screening 12/29/2027 [place] [address] Care Teams Machinist Class B Relationship Specialty Start Date End Date Keith Weiss MD [address] [place] [address] PCP - General Family Medicine 08/09/23
--- OUTSIDE RECORDS SUMMARY | 2024-11-02 08:36 | XMS_ITS | Patient Health Record ---
Author Organization [facility] [place] Address [address] [place] [address] Care Team Providers Care Plant Attendant Name Role Phone Abhishek Keith RANDOLPH Primary Care Provider Andrzej Pulido [phone] Results Component Value Reference Range Notes White Blood Cells Reviewed date:10/10/2024 02:43:49 PM Interpretation: Performing Lab: Notes/Report: [facility] , White Blood Cells See Below For Report White Blood Cells White Blood Cells Few White Blood Cells Performing Lab: see note LC - [facility] LB Epithelial Cells Reviewed date:10/10/2024 02:43:49 PM Interpretation: Performing Lab: Notes/Report: [facility] , Epithelial Cells See Below For Report Epithelial Cells Few Performing Lab: see note LC - [facility] LB Result 1 Reviewed date:10/10/2024 02:43:49 PM Interpretation: Performing Lab: Notes/Report: [facility] , Result 1 See Below For Report Result 1 Few gram positive cocci Performing Lab: see note LC - [facility] LB Result 2 Reviewed date:10/10/2024 02:43:49 PM Interpretation: Performing Lab: Notes/Report: [facility] , Result 2 See Below For Report *ABNORMAL* Result 2 Result 2 Rare gram negative rods. *ABNORMAL* Result 2 Performing Lab: see note LC - [facility] LB Result 3 Reviewed date:10/10/2024 02:43:49 PM Interpretation: Performing Lab: Notes/Report: [facility] , Result 3 See Below For Report Result 3 [facility] [employer] Performing Lab: see note LC - [facility] LB Result 4 Reviewed date:10/10/2024 02:43:49 PM Interpretation: Performing Lab: Notes/Report: [facility] , Result 4 See Below For Report Result 4 [facility]forming [facility] Gram Stain Evaluation Reviewed date:10/10/2024 02:43:49 PM Interpretation: Performing Lab: Notes/Report: [facility] , Gram Stain Evaluation See Below For Report This specimen is of good quality and is acceptable for routine Gram Stain Evaluation Gram Stain Evaluation bacterial culture. This specimen is of good quality and is acceptable for routine Gram Stain Evaluation Performing Lab: see note [facility] LB Lower Respiratory Culture Reviewed date:10/10/2024 02:43:49 PM Interpretation: Performing Lab: Notes/Report: [facility] , Lower Respiratory Culture See Below For Report WILL FOLLOW Lower Respiratory Culture Lower Respiratory Culture Specimen has been received and testing has been initiated. WILL FOLLOW Lower Respiratory Culture Lower Respiratory Culture Routine respiratory louisa WILL FOLLOW Lower Respiratory Culture Lower Respiratory Culture Performed at: [facility] WILL FOLLOW Lower Respiratory Culture Lower Respiratory Culture [address] [place] [phone] WILL FOLLOW Lower Respiratory Culture Lower Respiratory Culture Supervisory Examiner: Tom Neumann PhD, Phone: [phone] WILL FOLLOW Lower Respiratory Culture Performing Lab: see note - [facility] SEE REPORT - Senior Sql Developer Id information not found for OBX-specific promos executive producer legend INFLUENZA A AND B AG Reviewed date:10/08/2024 12:07:57 PM Interpretation: Performing Lab: Notes/Report: [facility] , Influenza Virus A Antigen Negative Negative for Flu A protein antigen. Infection due to Flu A below the detection limit of the test. cannot be ruled out. Flu A antigen in the sample may be Influenza Virus B Antigen Negative cannot be ruled out. Flu B antigen in the sample may be below the detection limit of the test. Negative for Flu B protein antigen. Infection due to Flu B Performing Lab: see note - [facility] LB LAB TESTING Reviewed date:10/09/2024 06:28:07 PM Interpretation: Performing Lab: Notes/Report: [id number] MYCOPLASMA PNEUMONIAE ANTIBODIES IGG/IGM [facility] , Miscellaneous Test COMMENT . [address] [place], [place] [id number] Positive >950 significant increase in antibody levels. Negative: <100 Performed at: [facility] M. pneumoniae specific IgM presumptively detected. It weeks later to assure reactivity. M pneumoniae IgG Abs <100 U/mL Test Ordered: [id number] Mycoplasma pneu. IgG/IgM Abs The reference interval established is intended as a is recommended that another sample be collected 1-2 confirmed either by a positive IgM result and/or an infection with Mycoplasma pneumoniae and need to be not detected. IgM antibody detected. Negative <770 Positive: >320 Indeterminate: 100 - 320 Low Positive 770 - 950 Supervisory Examiner: Tom Neumann PhD, Phone: [phone] baseline only. Values >100 may indicate a recent Highly significant amount of M. pneumoniae specific Reference Range: 0-769 M pneumoniae IgM Abs <770 U/mL CB additional specimen drawn 2-4 weeks later showing a Reference Range: 0-99 Clinically significant amount of M. pneumoniae antibody Performing Lab: see note LC - [facility] LB RSV Reviewed date:10/08/2024 12:07:58 PM Interpretation: Performing Lab: Notes/Report: [facility] , Respiratory Syncytial Virus Not Detected NOT DETECTE Performing Lab: see note - [facility] SARS-CoV-2 Ag* Reviewed date:10/08/2024 12:07:58 PM Interpretation: Performing Lab: Notes/Report: [facility] , SARS-CoV-2 Ag NEGATIVE NEGATIVE viruses or pathogens. The emergency use of this test is This test has not been FDA cleared or approved, but has been and/or diagnosis of Covid-19 under section 564(b)(1) of the emergency use of in vitro diagnostic tests for detection complexity testing. This test has been authorized only for circumstances exist justifying the authorization of terminated or authorization is revoked sooner. CLIA that meet the requirements to perform moderate or high the detection of proteins from SARS-CoV-2, not for any other (EUA) for use by authorized laboratories certified under authorized for the duration of the declaration that authorized by the FDA under an Emergency Use Authorization Act, 21 U.S.C. 360bbb-3(b)(1), unless the declaration is Performing Lab: see note ML - [facility] LB B pertussis IgG/M/A Ab Reviewed date:10/11/2024 05:40:42 PM Interpretation: Performing Lab: Notes/Report: [facility] , B pertussis IgG Ab <0.95 0.00-0.94 index Negative <0.95 Equivocal 0.95 - 1.04 Positive >1.04 B pertussis IgM Ab 2.6 0.0-0.9 index Positive >1.1 Negative <1.0 Borderline 1.0 - 1.1 B pertussis IgA Ab <1.0 0.0-0.9 index Borderline 1.0 - 1.1 Supervisory Examiner: Juliann Burden MD, Phone: [phone] Negative <1.0 Performed at: [facility] [address] [place], [place] [id number] Positive >1.1 Performing Lab: see note [facility] LAB TESTING Reviewed date:10/11/2024 05:40:42 PM Interpretation: Performing Lab: Notes/Report: [id number] LEGIONELLA PNEUMOPHILA ANTIBODY [facility] , Miscellaneous Test COMMENT . Test Ordered: [id number] Legionella pneumophila Abs. [address] [place], [place] [id number] (IgG/IgM/IgA) to L. pneumophila Groups 1-6 by EIA method. for diagnosis of infection with Legionella. testing is not recommended for diagnosis. Per current Supervisory Examiner: Juliann Burden MD, Phone: [phone] exposure/infection and current infection. Serological Performed at: [facility] This assay cannot differentiate between previous Legionella pneumophila Abs. Reactive [A ] BN and/or the Legionella urinary antigen test should be used Reference Range: Non Reactive recommendations, culture of lower respiratory secretions [address] [place] [phone] Performed at: [facility] Supervisory Examiner: Tom Neumann PhD, Phone: [phone] This is a qualitative assay that detects total antibodies Performing Lab: see note [facility] Reason For Referral No Information Problems Problem Type SNOMED Code ICD Code Onset Dates Problem Status W/U Status Risk Notes Problem Hyperlipidemia (15386194) Hyperlipidemia (E78.5) Active confirmed Problem History of pulmonary embolus (404711325) History of pulmonary embolism (Z86.711) Active confirmed Problem Primary hypertension (89795679) Primary hypertension (I10) Active confirmed Encounters Encounter Location Date Provider Diagnosis [facility] [address] [place] [address] 10/11/2024 Andrzej Martin Plan Of Treatment No Information Insurance Providers Payer Name Payer Address Payer Phone Subscriber Number Group Number Insured Name Patient Relationship to Insured Coverage Start Date Coverage End Date [employer] [address] [address] [place] [address] [id number] Omer Quinn Self - patient is the insured
--- OUTSIDE RECORDS SUMMARY | 2024-11-02 08:36 | XMS_ITS | Clinical Summary ---
Author Organization [facility] Address [address] [place] [address] Care Team Providers Care Field Auditor Name Role Phone Unavailable Primary Care Provider Unavailabl e Social History Tobacco Use Types Packs/Day Years Used Date Smoking Tobacco: Never Assessed Sex and Gender Information Value Date Recorded Sex Assigned at Not on file Legal Sex Male 10:46 PM EDT Gender Identity Not on file Sexual Orientation Not on file Plan of Treatment Health Maintenance Due Date Last Done Comments CT Colonography 1966 Colonoscopy 1966 Colorectal Cancer Screening 1966 FIT-DNA 1966 FIT 1966 FOBT 1966 Sigmoidoscopy 1966 Depression Screening 1978 Hepatitis B Vaccines (1 of 3 - 19+ 3-dose series) 1985 Adult Tetanus 1988 Zoster Vaccines (1 of 2) 2016 Influenza Vaccine (#1) 2024 HIB Vaccines Aged Out No longer eligi ble based on patient's age to complete this topic HPV Vaccines Aged Out No longer eligi ble based on patient's age to complete this topic IPV Vaccines Aged Out No longer eligi ble based on patient's age to complete this topic Meningococcal B Vaccine Aged Out No l onger eligible based on patient's age to complete this topic Meningococcal Vaccine Aged Out No ocle deven eligible based on patient's age to complete this topic Pneumococcal Vaccine: Pediat rics (0 to 5 Years) and At-Risk Patients (6 to 64 Years) Aged Out No longer eligible b ased on patient's age to complete this topic Rotavirus Vaccines Aged Out No longer eligible based on patient's age to complete this topic Insurance [employer] [place] [id number]
--- OUTSIDE RECORDS SUMMARY | 2024-11-02 08:36 | XMS_ITS | Clinical Summary ---
Author Organization [facility] Address [address] [place] [address] Care Team Providers Care Rib Puller Name Role Phone Keith Weiss Theo Primary Care Provider [phone] Allergies No known active allergies Medications lisinopril 10 mg tabletIndication s:Cluster headache Take 10 mg by mouth once daily. Active rivaroxaban (XARELTO) 20 mg tablet Take 20 mg by mouth daily with dinner. Active FENOFIBRATE MICRONIZED 48 MG TAB Take 48 mg by mouth once daily. 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 Encounters Date Type Department Care Team Description 10/02/2024 [place] [address] Provider, [facility] Financial Clearance from Last 3 Months Immunizations Immunization Administration Dates Next Due influenza (IIV3) vaccine, ag e 6 mo - 64 yr, trivalent (AFLURIA, FLULAVAL, FLUVIRIN, FLUZONE) 01/17/2014 Social History Tobacco Use Types Packs/Day Years [...] Sign Reading Time Taken Comments Blood Pressure 120/87 01/28/2015 3:58 PM EDT Pulse 86 01/28/2015 3:58 PM EDT Temperature 36.7 C (98.1 F) 06/20/2014 10:36 AM EST Respiratory Rate 20 03/21/2014 8:00 AM EST Oxygen Saturation 96% 06/20/2014 10:36 AM EST Inhaled Oxygen Concentration - - Weight 114.3 kg (252 lb) 01/28/2015 3:58 PM EDT Height 182.9 cm (6') 01/28/2015 3:58 PM EDT Body Mass Index 34.18 01/28/2015 3:58 PM EDT Plan of Treatment Health Maintenance Due Date Last Done Comments Anxiety Screening 1984 Depression Screening 1984 HIV Screening 1984 Hepatitis C Screening 1984 DTaP,Tdap,Td Vaccine (1 - Tdap) 1985 Hepatitis B Vaccine (1 of 3 - 19+ 3-dose series) [address] Colonography 2011 Cologuard (FIT-DNA) 2011 Colonoscopy 2011 Colorectal Cancer Screening 2011 Fecal Occult Blood 2011 Prostate Cancer Screening Discussion 2011 Sigmoidoscopy 2011 Pneumococcal Vaccine: 50+ (1 of 1 - PCV) 2016 Shingrix Vaccine (1 of 2) 2016 Diabetes Screening 08/03/2017 08/03/2014, 1 05/20/2013, 2014 Covid-19 Vaccine (1 - season) 2023 Influenza Vaccine (#1) 2024 01/17/2014 Procedures Procedure Name Priority Date/Time Associated Diagnosis Comments BASIC METABOLIC PANEL STAT 08/03/2014 7:41 AM EDT from Last 3 Months or Most Recently Relevant to Health Maintenance Results * (ABNORMAL) BASIC METABOLIC PNL (08/03/2014 7:41 AM EDT) Glucose 108(H) 65 - 100 mg/dL 08/03/2014 8:28 AM EDT [facility] BUN 13 10 - 25 mg/dL 08/03/2014 8:28 AM EDT [facility] Creatinine 0.86 0.70 - 1.40 mg/dL 08/03/2014 8:28 AM EDT [facility] Sodium 139 135 - 146 mmol/L 08/03/2014 8:28 AM EDT [facility] Potassium 4.3 3.5 - 5.0 mmol/L 08/03/2014 8:28 AM EDT [facility] Chloride 103 98 - 110 mmol/L 08/03/2014 8:28 AM EDT [facility] CO2 27 23 - 32 mmol/L 08/03/2014 8:28 AM EDT [facility] Anion Gap 9 0 - 15 mmol/L 08/03/2014 8:28 AM EDT [facility] Calcium 9.1 8.5 - 10.5 mg/dL 08/03/2014 8:28 AM EDT [facility] eGFR- >60 08/03/2014 8:28 AM T [facility] eGFR-All Other Races >60 . 08/03/2014 8:28 AM T [facility] Comment: eGFR (Estimated GFR) Units of measure: mL/min/1.73 meters squared eGFR is derived from the reexpressed MDRD Study equation using the following parameters: serum creatinine, age, gender and race. The creatinine assay has been calibrated to be traceable to IDMS. An eGFR <60 mL/min/1.73m2 for >3 months is consistent with chronic kidney disease. Refer to KDOQI guidelines for clinical interpretation. In patients with unstable renal function, e.g. those with acute kidney injury, the eGFR may not accurately reflect actual GFR. 08/03/2014 7:41 AM EDT 08/03/2014 7:46 AM EDT Leonel Garcia MD LABORATORY Final Result [facility] [address] [place] [address] from Last 3 Months or Most Recently Relevant to Health Maintenance [facility] [place] [id number] Care Teams Rib Puller Relationship Specialty Start Date End Date Keith Weiss [address] [place] [address] PCP - General 08/04/00
--- OUTSIDE RECORDS SUMMARY | 2024-11-02 08:36 | XMS_ITS | Clinical Summary ---
Author Organization [facility] Address [id number] [address] [place] [address] Care Team Providers Care All Round Butcher Name Role Phone Keith Weiss DO Primary Care Provider Social History Tobacco Use Types Packs/Day Years Used Date Smoking Tobacco: Never Assessed Childcare Answer Date Recorded Childcare Unknown 09/28/2018 Employment Answer Date Recorded Employment Unknown 09/28/2018 Purpose - Life Answer Date Recorded Purpose and direction in life Unknown Sex and Gender Information Value Date Recorded Sex Assigned at Not on file Legal Sex Male 11:23 AM EDT Gender Identity Not on file Sexual Orientation Not on file Plan of Treatment Health Maintenance Due Date Last Done Comments Depression Screening 1978 Tobacco Screening 1978 Adult BMI Screening 1984 DTaP,Tdap and Td Vaccines (1 - Tdap) 1985 Zoster (Shingles) Vaccine (1 of 2) 2016 Influenza Vaccine 12/18/2024 01/17/2014 Medical Devices Not on file Insurance [employer] - [employer]IC [employer] Care Teams All Round Butcher Relationship Specialty Start Date End Date Keith Weiss DO [address] [place] [address] PCP - General Family Medicine 07/11/18
--- OUTSIDE RECORDS SUMMARY | 2024-11-02 08:36 | XMS_ITS | Clinical Summary ---
Author Organization [facility] Address [address] [place] [address], [address] [place] [address] Care Team Providers Care Phototypesetter Operator Name Role Phone Keith Weiss DO Primary Care Provider Social History Tobacco Use Types Packs/Day Years Used Date Smoking Tobacco: Never Assessed Sex and Gender Information Value Date Recorded Sex Assigned at Not on file Legal Sex Male 11:08 AM EST Gender Identity Not on file Sexual Orientation Not on file Plan of Treatment Not on file Insurance [employer] Care Teams Phototypesetter Operator Relationship Specialty Start Date End Date Keith Weiss DO [address] [place] [address] PCP - General Family Medicine 07/23/22
--- OUTSIDE RECORDS SUMMARY | 2024-11-02 08:36 | XMS_ITS | Clinical Summary ---
Author Organization [facility] Address [address] [place] [address] Phone Care Team Providers Care Weather Clerk Name Role Phone Keith Weiss Theo RANDOLPH Primary Care Provider + Allergies No known active allergies Medications blood-glucose meter misc ONE TOUCH VERIO FLEX BG MONITOR, See Instructions, Instructions: USE DIRECTED DAILY, # 1 EA, 0 Refill(s), Pharmacy: [facility] #[id number], USE DIRECTED DAILY, Supply, 185, cm, 03/10/24 15:25:00 EST, Height, 120, kg, 03/07/24 16:07:00 EST, Weight Dosing 4 Active fenofibrate (Tricor) 48 mg tablet 1 tab(s), Oral, Daily, # 90 tab(s), 1 Refill(s), Pharmacy: [facility] #[id number], TAKE 1 TABLET BY MOUTH DAILY, 185, cm, 03/10/24 15:25:00 EST, Height, 120, kg, 03/07/24 16:07:00 EST, Weight Dosing 3 Active glyBURIDE micronized (Glynase) 3 mg tablet Take 1 tablet (3 mg) by mouth once daily. Active HYDROcodone-gertrudis taminophen ([place]ford) 5-325 mg tablet Take by mouth. 1 Active lisinopril 30 mg tablet 1 tab(s), Oral, Daily, # 90 tab(s), 1 Refill(s), Pharmacy: [facility] #[id number], TAKE 1 TABLET BY MOUTH DAILY, 185, cm, 03/10/24 15:25:00 EST, Height, 120, kg, 03/07/24 16:07:00 EST, Weight Dosing 4 Active metFORMIN (Glucophage) 500 mg tablet Take 2 tablets (1,000 mg) by mouth 2 times a day. Active Xarelto 20 mg tablet Take 1 tablet (20 mg) by mouth early in the morning.. 4 Active Emgality Pen 120 mg/mL auto-injector Inject 1 Syringe (120 mg) under the skin 1 time if needed (headache). 2 Active fenofibrate (Tricor) 48 mg tablet Take 1 tablet (48 mg) by mouth once daily. 1 Active gabapentin (Neurontin) 300 mg capsuleIndicati ons:Postlaminec jane syndrome, lumbar region 1 capsule each evening for two days, then 1 capsule twice daily for two days, then one capsule three times daily 90 capsule 3 5 Active Encounters Date Type Department Care Team Description 09/21/2024 10:45 AM EDT Office Visit [address] [address] Zeeshan Gates MD Postlaminectomy syndrome, lumbar region (Primary Dx); Lumbar radiculopathy, chronic 09/21/2024 Travel 08/18/2024 6:53 AM EDT - 08/18/2024 11:59 PM EDT Hospital Encounter [facility] [place] [address] [address] Homero Chavis MD Lumbar radiculopathy, chronic; Postlaminectomy syndrome, lumbar region Discharge Disposition: Home 08/18/2024 6:51 AM EDT Anesthesia Event [facility] [place] [address] [address] Shobha Venegas APRN-DEE 08/18/2024 Travel 08/03/2024 10:45 AM EDT Office Visit [address] [address] Zeeshan Gates MD Lumbar radiculopathy, chronic (Primary Dx); Postlaminectomy syndrome, lumbar region 08/03/2024 Travel from Last 3 Months Social History Tobacco Use Types Packs/Day Years Used Date Smoking Tobacco: Never Smokeless Tobacco: Never Tobacco Cessation:Counseling Given: Not Answered Alcohol Use Standard Drinks/Week Comments Yes 0 (1 standard drink = 0.6 oz pur e alcohol) socially Sex and Gender Information Value Date Recorded Sex Assigned at Not on file Legal Sex Male 10:21 AM EST Gender Identity Not on file Sexual Orientation Not on file Last Filed Vital Signs Vital Sign Reading Time Taken Comments Blood Pressure 136/79 08/18/2024 9:13 AM EDT Pulse 85 08/18/2024 9:13 AM EDT Temperature 36.1 C (97 F) 08/18/2024 9:13 AM EDT Respiratory Rate 16 08/18/2024 9:13 AM EDT Oxygen Saturation 100% 08/18/2024 9:13 AM EDT Inhaled Oxygen Concentration - - Weight 126 kg (277 lb 1.9 oz) 08/18/2024 7:16 AM EDT Height 182.9 cm (6') 08/18/2024 7:16 AM EDT Body Mass Index 37.58 08/18/2024 7:16 AM EDT Plan of Treatment Health Maintenance Due Date Last Done Comments CT Colonography 1966 FIT-DNA (Cologuard) 1966 FIT 1966 HIV Screening 1966 Lipid Panel 1966 Sigmoidoscopy 1966 Yearly Adult Physical 1966 MMR Vaccines (1 of 1 - Standard series) 1967 Hepatitis C Screening 1984 Hepatitis B Vaccines (1 of 3 - 19+ 3-dose series) 1985 DTaP/Tdap/Td Vaccines (1 - Tdap) 1988 Pneumococcal Vaccine (1 of 1 - PCV) 2016 Zoster Vaccines (1 of 2) 2016 COVID-19 Vaccine (1 - season) 2023 Influenza Vaccine (#1) 2024 , 01/27/2020, 02/13/2019, Additional history exists Diabetes Screening 08/18/2025 08/18/2024, 0 11/27/2020, 11/26/2020, Additional history exists Colonoscopy 12/29/2027 12/28/2017 Colorectal Cancer Screening 12/29/2027 HIB Vaccines Aged Out No longer eligi ble based on patient's age to complete this topic HPV Vaccines Aged Out No longer eligi ble based on patient's age to complete this topic Hepatitis A Vaccines Aged Out No long er eligible based on patient's age to complete this topic IPV Vaccines Aged Out No longer eligi ble based on patient's age to complete this topic Meningococcal Vaccine Aged Out No cole deven eligible based on patient's age to complete this topic Rotavirus Vaccines Aged Out No longer eligible based on patient's age to complete this topic Medical Devices Implanted Type Area Inseam Trimmer Device Identifier Shelf Expiration Date Model / Serial / Lot Bone Matrix, Osteocel Pro Cellular, Medium Case [id number] Implanted:Qty: 1 on 11/26/2020 by Yeison Blackmon MD [employer] 03/07/2025 [id number] / [id number] / Description:Converted from [facility]. Please see archived information for full log information. 45 Screw Case [id number] Implanted:Qty: 1 on 11/26/2020 by Yeison Blackmon MD Implant [employer] [id number] / / Description:Converted from [facility]. Please see archived information for full log information. Additional Information:45 SCREWper bill only jdr 11/27/2020 1303pm Generic Implant 03 Case [id number] Implanted:Qty: 1 on 11/26/2020 by Yeison Blackmon MD Implant [employer] [id number] / / Description:Converted from [facility]. Please see archived information for full log information. Additional Information:55 SCREWper bill only jdr 11/27/2020 1303pm Plate Case [id number] Implanted:Qty: 1 on 11/26/2020 by Yeison Blackmon MD Implant [employer] [id number] / / Description:Converted from [facility]. Please see archived information for full log information. Additional Information:PLATEper bill only jdr 11/27/2020 1303pm Spacer, Modulus Xlw, [id number], 10 Deg Case [id number] Implanted:Qty: 1 on 11/26/2020 by Yeison Blackmon MD Spinal Hardware [employer] 08/06/2024 [id number] / / [id number] Description:Converted from [facility] Acute. Please see archived information for full log information. Procedures Procedure Name Priority Date/Time Associated Diagnosis Comments TRANSFORAMINAL Routine 08/18/2024 8:45 AM EDT Lumbar radiculopathy, chronic Postlaminectomy syndrome, lumbar region FL PAIN MANAGEMENT Routine 08/18/2024 8: 45 AM EDT Lumbar radiculopathy, chronic Postlaminectomy syndrome, lumbar region POCT GLUCOSE Routine 08/18/2024 7:20 AM EDT from Last 3 Months Results * Transforaminal (08/18/2024 8:45 AM EDT) Anatomical Region Laterality Modality Radio Fluoroscop y Narrative 08/18/2024 8:43 AM EDT Procedure(s):Operation: Right L2 Transforaminal epidural steroid injection. Pre-Op/Pre-Procedure [...] discharged home when all discharge criterion met. Zeeshan Gates MD PAIN MED PROCEDURE ORDERAB LES Final Result * FL pain management (08/18/2024 8:45 AM EDT) Narrative IMAGING - 08/18/2024 1:14 PM EDT These images are not reportable by radiology and will not be interpreted by Radiologists. Zeeshan Gates MD IMG FLUOROSCOPY PROCEDURES Final Result IMAGING * (ABNORMAL) POCT GLUCOSE (08/18/2024 7:20 AM EDT) POCT Glucose 125(H) 74 - 99 mg/dL 08/18/2024 7:22 AM EDT [facility] Blood Capillary blood specimen / Unknown 08/18/2024 7:20 AM EDT 08/18/2024 7:22 AM EDT Homero Chavis MD LAB POINT OF CARE T EST DOCKED DEVICE UNSOLICITED RESULTS Final Result [facility] [address] [facility] [address] [place] [id number] from Last 3 Months Insurance [facility] [place] [address] [employer] on file [facility] [place] [address] [employer] on file [facility] [place] [id number] Care Teams Weather Clerk Relationship Specialty Start Date End Date Keith Weiss DO [address] [place] [address] PCP - General 11/04/20
--- OUTSIDE RECORDS SUMMARY | 2024-11-02 08:36 | XMS_ITS | Patient Health Record ---
Author Organization Corporate Office Address [address] [place] [address] [address] [place] [address] Care Team Providers Care Wildlife Ecology Professor Name Role Phone None, None Primary Care Provider Unavailabl e Harsha Maldonado DO Unavailable [phone] Harsha Arora Unavailable Unavailable Reason For Referral No Information Plan Of Treatment No Information Insurance Providers Payer Name Payer Address Payer Phone Subscriber Number Group Number Insured Name Patient Relationship to Insured Coverage Start Date Coverage End Date [facility], 1928–1983 Immedia [facility] [address] [place] [address] [phone] [id number] DOI 03.14.2 [phone] Omer Quinn Self - patient is the insured Medical (General) History Surgical History Surgery Date(Month/Year) JS-IVC filter, inferior venacavogram
--- OUTSIDE RECORDS SUMMARY | 2024-11-02 08:41 | XMS_ITS | CCD ---
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 Phone Unknown, Referring Provider Unavailable [...] Care DO Kimi Etienne Primary Care Provider [phone] MD Charles Claros Attending Provider Kimi Weiss MD Primary Care Provider Kimi Weiss DO Primary Care Provider Kimi Weiss DO Primary Care Provider Des Contreras DO Emergency Provider Leslie Sanchez MD Admit Provider [phone] Leslie Sanchez MD Attending Provider Wendy Cruz RN Other Provider Unavailable Jacinto Livingston MD Other Provider Des Musa MD Other Provider [phone] Iza Patel MD Other Provider Brian Blanchard [...] P Attending Unavailable RADHA GATES Referring Unavailable KIMI WEISS Primary Care Unavailabl e RADHA GATES Attending Unavailable KIMI WEISS Primary Care Unavailabl e RADHA GATES Attending Unavailable KIMI WEISS Primary Care Unavailabl e RADHA GATES Attending Unavailable KIMI WEISS Primary Care Unavailabl e Abhishek, Kimi Danielle Primary Care Unavailable Abhishek, Kimi P Attending Unavailable Abhishek, Kimi P Primary Care Unavailable Abhishek, Kimi P Attending Unavailable Abhishek, Kimi P Primary Care Unavailable Abhishek, Kiim P Attending Unavailable Abhishek, Kimi P Primary Care Unavailable Abhishek, Kimi P Attending Unavailable Abhishek, Kimi P Primary Care Unavailable Abhishek, Kimi P Attending Unavailable Abhishek, Kimi P Attending Unavailable Abhishek, Kimi P Primary Care Unavailable Abhishek, Kimi P Primary Care Unavailable Abhishek, Kimi P Admitting Unavailable Abhishek, Kimi P Attending Unavailable Ahbishek, Kimi P Attending Unavailable Abhishek, Kimi P Primary Care Unavailable Abhishek, Kimi P Primary Care Unavailable Camron Lackey DO Consulting Unavailable Abhishek, Kimi P Admitting Unavailable Abhishek, Kimi P Attending Unavailable Abhishek, Kimi P Attending Unavailable Abhishek, Kimi P Primary Care Unavailable Abhishek, Kimi P Primary Care Unavailable Abhishek, Kimi P Attending Unavailable Kimi Weiss P Admitting Unavailable AbhishekKimi P Primary Care Unavailable Abhishek, Kimi P [...] FILE] Propensity to adverse reactions (disorder) [facility] Medications Current Medications Medication Drug Class(es) [...] Start: 04-08-2021 take 1 capsule by mo [facility] every four hours as needed for headache Wclessvthe-DCDL-Xdlruxiu 50-300-40 MG Oral Capsule TAKE 1 CAPSULE [...] Start: 10-06-2022 take 1 tablet by azucena twice daily [...] days May, Active Start: 04-02-2021 HYDROcodone-ac etaminophen (Dexter) 5-325 mg tablet Take by mouth. 04/02/2021 [...] DAILY, # 1 EA, 0 Refill(s), Pharmacy: [id number], USE DIRECTED DAILY, Supply, 185, cm, 03/10/24 [...] 9:17am Start: 10-08-2020 [facility] Lisinopril 20 MG Oral Tablet [...] 2017 12:00am June 15, 2019 12:04pm sennosides, correction 8.6 mg oral tablet (1 source) Start: [...] July 09, 2018 June 13, 2019 11:45pm [id number] 200 actuat albuterol 0.09 mg/actuat metered dose [...] cause serious breathing problems. polyethylene glycol 3350 14602 mg powder for oral solution (3 sources) [...] Quantity: 120 Refills: 2 Ordered: 23-Apr-2021 Lisha LEEN-DIGITAL FORENSICS INVESTIGATORMarisol Start : 23-Apr-2021 Active Triamcinolone (13 sources) [...] [Chronic cluster headache, not intractable] Onset: 4 04-21-2024 Chronic Joint disorders and dislocations; trauma-related (15 sources) Derangement of left knee; Translations: [Unspecified internal derangement of left knee] Chronic Nausea and vomiting (15 sources) Nausea; Translations: [Nausea] Episodic Other acquired deformities (15 sources) Lumbar spondylolisthesis; Translations: [Spondylolisthesis, lumbar region] Episodic Other aftercare (1 source) Other continuous churn buttermaker (current) drug therapy; Translations: [OTH OFFICE EXECUTIVE CURRENT DRUG THERAPY] Onset: 2 Episodic Other aftercare (1 source) jail (current) use of anticoagulants; Translations: [SENIOR CARE CURRNT USE ANTICOAGULANTS] Onset: 2 Episodic Other aftercare (6 sources) Long-term current use of anticoagulant; Translations: [jail (current) use of anticoagulants] 02-28-2020 Episodic Other [...] thrombosis and embolism] Onset: 4 08-08-2023 Episodic Pneumonia (except that caused by tuberculosis or sexually transmitted disease) (1 source) Pneumonia, unspecified organism; Translations: [Pneumonia, unspecified organism] Onset: 5 Episodic Pulmonary heart disease (17 sources) Pulmonary [...] Test Name Value Interpretation Reference Range Facility Lab - Other Lab Resultson Lab - Other Lab Results [id number]2024 Outside Records [id number]#[facility] Other Radiology Report on 10-11-2024 Rad - Other Radiology Report [id number]#1.00OTGTIFF [facility] Outside Recordson 10-09-2024 Outside Records [id number]#1.00OTGTIFF [facility] Outside Records [id number]#1.00OTGTIFF [facility] Outside Records [id number]#1.00OTGTIFF [facility] ED Note - Physicianon 2024 ED Note - Physician [id number]#1.00OTGTIFF [facility] Outside Recordson 10-05-2024 Outside Records [id number]#1.00OTGTIFF [facility] Rad - CT Reporton 10-05-2024 Rad - CT Report [id number]#1.00OTGTIFF [facility] Urgent Care Noteon Urgent Care Note [id number]#1.00OTGTIFF [facility] Outside Recordson 09-13-2024 Outside Records [id number]#1.00OTGTIF [facility] [place] PAIN MANAGEMENTon [place] PAIN MANAGEMENT These images are not reportable by radiology and will not be interpreted by Radiologists. [facility] [place] pain managementon 025 These images are not reportable by radiology and will not be interpreted by Radiologists. IMAGING Glucose Test strip manual (B ld) [Mass/Vol]on 08-18-2024 Glucose [Mass/Vol] 125 mg/dL High 74 - 99 mg/dL [facility] Interpretation and review of laboratory results Abnormal [facility] Glucose [Mass/Vol] 125 mg/dL High 74-99 [facility] Comment on above: Performed By: #### 2 [id number] #### JAENLLE Fisher ([id number]) [facility] [id number] [place] [address] Transforaminalon 08-18-2024 [facility] Work Phone: Radiology Study observation (narrative) [facility] Work Phone: CT LUMBAR SPINE W IV CONTRAS Ton 07-13-2024 CT LUMBAR SPINE W IV CONTRAST Interpreted By: Chandler Murphy, STUDY: CT LUMBAR SPINE W IV CONTRAST 07/13/2024 10:32 am INDICATION: Signs/Symptoms:post-lami syndrome, Right LE pain ,M96.1 Postlaminectomy syndrome, not elsewhere classified COMPARISON: MRI lumbar spine dated 05/12/2022. ACCESSION NUMBER(S): [id number] ORDERING CLINICIAN: RADHA GATES TECHNIQUE: Axial CT [...] right L2 nerve root. L3-4: Prior laminectomy. Mogux-lzkrlks-nmwl-left facet arthropathy. Mild posterior disc osteophyte components. Beam hardening artifact from hardware components limits delineation with no overt osseous spinal canal stenosis. Suspected mild cymxg-zjdzmap-xfpr-left neural foraminal narrowing. L4-5: Beam hardening artifact from hardware components degrades evaluation. No overt high-grade osseous spinal canal stenosis or neural foraminal narrowing. L5-S1: Mild bilateral facet arthropathy with ligamentum flavum hypertrophy. Mild disc bulge and endplate spurring. No CT apparent spinal canal stenosis. Exgp-zx-azxoztpg bilateral neural foraminal narrowing suggested. Prevertebral/Paraspinal Soft [...] Chandler Murphy 07/14/2024 10:59 AM Dictation workstation: [id number] [facility] Electronic Messagingon 06-28 Electronic Messaging -- [...] your mailbox. Thank you, MICHELLE Wood, RN, [facility] From: Kimi Weiss DO To: Erica Quiroz RN CDE BSN; Sent: 06/28/2024 07:07:58 EDT Subject: RE: DSMES program Caller Name: LYLY QUINN; Caller Number: Alexander , Oral ty [facility] Outside Recordson 06-26-2024 Outside Records [id number]#1.00OTGTIFF [facility] Outside Recordson 05-25-2024 Outside Records [id number]#1.00OTGTIFF [facility] Outside Recordson 05-22-2024 Outside Records [id number]#1.00OTGTI FF [facility] ED Note - Physicianon 2024 ED Note - Physician [id number]#1.00OTGTIF F [facility] Alanine aminotransferase [En zymatic activity/volume] in Serum or PlasmaOrdered By: Brian Blanchard on 05-15-2024 ALT [Catalytic activity/Vol] Alanine aminotransferase [Enzymatic activity/volume] in Serum or Plasma 752 [facility] Albumin [Mass/volume] in Ser um or Plasma by Bromocresol green (BCG) dye binding methoOrdered By: Brian Blanchard on 05-15-2024 Albumin BCG dye [Mass/Vol] Albumin [Mass/volume] in Serum or Plasma by Bromocresol green (BCG) dye binding metho 3.5-5.7 [facility] Alkaline phosphatase [Enzyma tic activity/volume] in Serum or PlasmaOrdered By: Brian Blanchard on 05-15-2024 ALP [Catalytic activity/Vol] Alkaline phosphatase [Enzymatic activity/volume] in Serum or Plasma 34-104 [facility] Aspartate aminotransferase [ Enzymatic activity/volume] in Serum or PlasmaOrdered By: Brian Blanchard on 05-15-2024 AST [Catalytic activity/Vol] Aspartate aminotransferase [Enzymatic activity/volume] in Serum or Plasma 13-39 [facility] B-Type Natriuretic Peptideon 05-15-2024 Natriuretic peptide B (Bld) [Mass/Vol] 8.0 pg/mL Normal 5-100 [facility] Comment on above: Result Comment: PERF ORMED BY: [facility] [address] [place] [address] PATHOLOGIST FACTORY MANAGER BRANDON AVITIA M.D. Performed By: #### G LULS #### Point of Care testing , Basophils Auto (Bld) [#/Vol] Ordered By: Brian Blanchard on 05-15-2024 Basophils (Bld) [#/Vol] Automated basophil count 0.0-0.2 [facility] Basophils/100 WBC Auto (Bld) Ordered By: Brian Blanchard on 05-15-2024 Basophils/100 WBC (Bld) Automated basophil % . [facility] Bilirubin.total [Mass/volume ] in Serum or PlasmaOrdered By: Brian Blanchard on 05-15-2024 Bilirubin [Mass/Vol] Bilirubin.total [Mass/volume] in Serum or Plasma 0.3-1.0 [facility] Calcium [Mass/volume] in Ser um or PlasmaOrdered By: Brian Blanchard on 05-15-2024 Calcium [Mass/Vol] Calcium [Mass/volume ] in Serum or Plasma High 8.6-10.3 [facility] Carbon dioxide, total [Moles /volume] in Serum or PlasmaOrdered By: Brian Blanchard on 05-15-2024 CO2 [Moles/Vol] Carbon dioxide, tota l [Moles/volume] in Serum or Plasma Low 21.0-31.0 [facility] Chloride [Moles/volume] in S fina or PlasmaOrdered By: Brian Blanchard on 05-15-2024 Chloride [Moles/Vol] Chloride [Moles/vol ume] in Serum or Plasma 98-107 [facility] Complete Blood Count Auto Di ffon 05-15-2024 Basophils (Bld) [#/Vol] 0.1 10*3/uL Normal 0.0-0.2 [facility] Comment on above: Result Comment: PERF ORMED BY: [place] [address] PATHOLOGIST FACTORY MANAGER BRANDON AVITIA M.D. Performed By: #### B VISITOR SERVICES ASSISTANT, CMP, CBC, MG, CK, HS TROP #### [address] Basophils/100 WBC (Bld) 0.8 % Normal . [facility] Comment on above: Performed By: #### B VISITOR SERVICES ASSISTANT, CMP, CBC, MG, CK, HS TROP #### [address] Eosinophils (Bld) [#/Vol] 0.1 10*3/uL Normal 0.0-0.45 [facility] Comment on above: Performed By: #### B VISITOR SERVICES ASSISTANT, CMP, CBC, MG, CK, HS TROP #### [address] Eosinophils/100 WBC (Bld) 0.7 % Normal . [facility] Comment on above: Performed By: #### B VISITOR SERVICES ASSISTANT, CMP, CBC, MG, CK, HS TROP #### [address] Erythrocyte distribution width (RBC) [Ratio] 13.7 % Normal 12.0-14.8 [facility] Comment on above: Performed By: #### B VISITOR SERVICES ASSISTANT, CMP, CBC, MG, CK, HS TROP #### [address] Hematocrit (Bld) [Volume fraction] 45.5 % Normal 38.8-50.0 [facility] Comment on above: Performed By: #### B VISITOR SERVICES ASSISTANT, CMP, CBC, MG, CK, HS TROP #### [address] Hemoglobin (Bld) [Mass/Vol] 15.7 g/dL Normal 13.0-17.0 [facility] Comment on above: Performed By: #### B VISITOR SERVICES ASSISTANT, CMP, CBC, MG, CK, HS TROP #### [place] [address] [place] Lymphocytes (Bld) [#/Vol] 3.6 10*3/uL Normal 1.00-4.8 [facility] Comment on above: Performed By: #### B VISITOR SERVICES ASSISTANT, CMP, CBC, MG, CK, HS TROP #### [address] Lymphocytes/100 WBC (Bld) 37.0 % Normal . [facility] Comment on above: Performed By: #### B VISITOR SERVICES ASSISTANT, CMP, CBC, MG, CK, HS TROP #### [address] MCH (RBC) [Entitic mass] 31.0 pg Normal 27.5-35.2 [facility] Comment on above: Performed By: #### B VISITOR SERVICES ASSISTANT, CMP, CBC, MG, CK, HS TROP #### [address] MCV (RBC) [Entitic vol] 90.3 fL Normal 83.5-101 [facility] Comment on above: Performed By: #### B VISITOR SERVICES ASSISTANT, CMP, CBC, MG, CK, HS TROP #### [address] Mean Corpuscular HGB Conc 34.4 g/dL Normal 32.5-35.6 [facility] Comment on above: Performed By: #### B VISITOR SERVICES ASSISTANT, CMP, CBC, MG, CK, HS TROP #### [address] Monocytes (Bld) [#/Vol] 0.9 10*3/uL High 0.0-0.8 [facility] Comment on above: Performed By: #### B VISITOR SERVICES ASSISTANT, CMP, CBC, MG, CK, HS TROP #### [address] Monocytes/100 WBC (Bld) 22.03 % High 0.00-20.00 [facility] Comment on above: Result Comment: For adults in ED, MDW > 20.0 may be associated with a higher risk of sepsis during the first 12 hrs of hospital admission Performed By: #### B VISITOR SERVICES ASSISTANT, CMP, CBC, MG, CK, HS TROP #### [address] Monocytes/100 WBC (Bld) 9.4 % Normal . [facility] Comment on above: Performed By: #### B VISITOR SERVICES ASSISTANT, CMP, CBC, MG, CK, HS TROP #### [address] Neutrophils (Bld) [#/Vol] 5.1 10*3/uL Normal 1.8-7.7 [facility] Comment on above: Performed By: #### B VISITOR SERVICES ASSISTANT, CMP, CBC, MG, CK, HS TROP #### [address] Neutrophils/100 WBC (Bld) 52.1 % Normal . [facility] Comment on above: Performed By: #### B VISITOR SERVICES ASSISTANT, CMP, CBC, MG, CK, HS TROP #### [address] NRBC% 0.1 /100{WBC} Normal 0-0.5 [facility] Comment on above: Performed By: #### B VISITOR SERVICES ASSISTANT, CMP, CBC, MG, CK, HS TROP #### [address] Platelet mean volume (Bld) [Entitic vol] 8.0 fL Normal 6.6-10.1 [facility] Comment on above: Performed By: #### B VISITOR SERVICES ASSISTANT, CMP, CBC, MG, CK, HS TROP #### [address] Platelets (Bld) [#/Vol] 264 10*3/uL Normal 150-450 [facility] Comment on above: Performed By: #### B VISITOR SERVICES ASSISTANT, CMP, CBC, MG, CK, HS TROP #### [address] RBC (Bld) [#/Vol] 5.04 10*6/uL Normal 3.90-5.60 [facility] Comment on above: Performed By: #### B VISITOR SERVICES ASSISTANT, CMP, CBC, MG, CK, HS TROP #### [address] WBC (Bld) [#/Vol] 9.8 10*3/uL Normal 4.1-10.5 [facility] Comment on above: Performed By: #### B VISITOR SERVICES ASSISTANT, CMP, CBC, MG, CK, HS TROP #### [address] Comprehensive Metabolic Pane cole 05-15-2024 Albumin [Mass/Vol] 4.8 g/dL Normal 3.5-5.7 [facility] Comment on above: Performed By: #### B VISITOR SERVICES ASSISTANT, CMP, CBC, MG, CK, HS TROP #### [address] Albumin/Globulin [Mass ratio] 1.5 {ratio} Normal [facility] Comment on above: Performed By: #### B VISITOR SERVICES ASSISTANT, CMP, CBC, MG, CK, HS TROP #### [address] ALP [Catalytic activity/Vol] 83 U/L Normal 34-104 [facility] Comment on above: Performed By: #### B VISITOR SERVICES ASSISTANT, CMP, CBC, MG, CK, HS TROP #### [address] ALT [Catalytic activity/Vol] 39 U/L Normal 7-52 [facility] Comment on above: Performed By: #### B VISITOR SERVICES ASSISTANT, CMP, CBC, MG, CK, HS TROP #### [address] Anion gap [Moles/Vol] 20.0 mmol/L High 6.0-15.0 [facility] Comment on above: Performed By: #### B VISITOR SERVICES ASSISTANT, CMP, CBC, MG, CK, HS TROP #### [address] AST [Catalytic activity/Vol] 28 U/L Normal 13-39 [facility] Comment on above: Performed By: #### B VISITOR SERVICES ASSISTANT, CMP, CBC, MG, CK, HS TROP #### [address] Bilirubin [Mass/Vol] 0.5 mg/dL Normal 0.3-1.0 [facility] Comment on above: Performed By: #### B VISITOR SERVICES ASSISTANT, CMP, CBC, MG, CK, HS TROP #### [address] Calcium [Mass/Vol] 11.0 mg/dL High 8.6-10.3 [facility] Comment on above: Performed By: #### B VISITOR SERVICES ASSISTANT, CMP, CBC, MG, CK, HS TROP #### [address] Chloride [Moles/Vol] 102 mmol/L Normal 98-107 [facility] Comment on above: Performed By: #### B VISITOR SERVICES ASSISTANT, CMP, CBC, MG, CK, HS TROP #### [address] CO2 [Moles/Vol] 19.8 mmol/L Low 21.0-31.0 [facility] Comment on above: Performed By: #### B VISITOR SERVICES ASSISTANT, CMP, CBC, MG, CK, HS TROP #### [address] Creatinine [Mass/Vol] 0.93 mg/dL Normal 0.70-1.30 [facility] Comment on above: Performed By: #### B VISITOR SERVICES ASSISTANT, CMP, CBC, MG, CK, HS TROP #### [address] GFR/1.73 sq M.predicted MDRD (S/P/Bld) [Vol rate/Area] mL/min/{1.73_m2} Normal [facility] Comment on above: Performed By: #### B VISITOR SERVICES ASSISTANT, CMP, CBC, MG, CK, HS TROP #### [address] Globulin (S) [Mass/Vol] 3.2 g/dL Normal [facility] Comment on above: Performed By: #### B VISITOR SERVICES ASSISTANT, CMP, CBC, MG, CK, HS TROP #### [address] Glucose [Mass/Vol] 136 mg/dL High 70-100 [facility] Comment on above: Result Comment: [facility] Glucose Reference Range is dependent on time and content of last meal. Glucose of more than 200 mg/dL in a nonstressed, ambulatory subject supports the diagnosis of Diabetes Mellitus. ADA recommended reference range Performed By: #### B VISITOR SERVICES ASSISTANT, CMP, CBC, MG, CK, HS TROP #### [address] Potassium [Moles/Vol] 3.8 mmol/L Normal 3.5-5.1 [facility] Comment on above: Result Comment: Hemo lysis is present at a level that could interfere with the result. Contact lab if redraw is required Performed By: #### B VISITOR SERVICES ASSISTANT, CMP, CBC, MG, CK, HS TROP #### [address] Protein [Mass/Vol] 8.0 g/dL Normal 6.4-8.9 [facility] Comment on above: Performed By: #### B VISITOR SERVICES ASSISTANT, CMP, CBC, MG, CK, HS TROP #### [place] [address] [place] Sodium [Moles/Vol] 138 mmol/L Normal 136-145 [facility] Comment on above: Performed By: #### B VISITOR SERVICES ASSISTANT, CMP, CBC, MG, CK, HS TROP #### [address] Urea nitrogen [Mass/Vol] 10 mg/dL Normal 7-25 [facility] Comment on above: Performed By: #### B VISITOR SERVICES ASSISTANT, CMP, CBC, MG, CK, HS TROP #### [facility] [address] [id number] [place] Creatine Kinaseon 05-15-2024 CK [Catalytic activity/Vol] 53 U/L Normal 30-223 [facility] Comment on above: Performed By: #### G LUSE #### Point of Care testing , Creatine kinase [Enzymatic a ctivity/volume] in Serum or PlasmaOrdered By: Brian Blanchard on 05-15-2024 CK [Catalytic activity/Vol] Creatine kinase [Enzymatic activity/volume] in Serum or Plasma 30 [facility] Creatinine [Mass/volume] in Serum or PlasmaOrdered By: Brian Blanchard on 05-15-2024 Creatinine [Mass/Vol] Creatinine [Mass/v olume] in Serum or Plasma 0.70-1.30 [facility] ECG 12 lead ECGon 05-15-2024 ECG 12 lead ECG [facility] [address] Electrocardiograph Report Signed Patient: Lyly Quinn MR#: [id number] : 1965 Acct:[id number] Age/Sex: 59 / M ADM Date: 05/15/24 Loc: ER Room: Type: [facility] ER Attending Dr: Ordering Provider: Brian Blanchard [...] Sinus tachycardia Confirmed by Brian BLANCHARD DO ([id number]) on 05/15/2024 6:13:14 PM Referred By: Electronically Signed By: Brian BLANCHARD DO Transcribed By: MUS Signed By Brian Blanchard DO 0 05/15/24 1813 Normal [facility] Eosinophils Auto (Bld) [#/Vo l]Ordered By: Brian Blanchard on 05-15-2024 Eosinophils (Bld) [#/Vol] Automated eosinophil count 0.0-0.45 [facility] Eosinophils/100 WBC Auto (Bl d)Ordered By: Brian Blanchard on 05-15-2024 Eosinophils/100 WBC (Bld) Automated eosinophil % . [facility] Erythrocyte distribution wid th Auto (RBC) [Ratio]Ordered By: Brian Blanchard on 05-15-2024 Erythrocyte distribution width (RBC) [Ratio] Erythrocyte distribution width [Ratio] by Automated count 12.0-14.8 [facility] Globulin Calc (S) [Mass/Vol] Ordered By: Brian Blanchard on 05-15-2024 Globulin (S) [Mass/Vol] Serum globulin measurement by calculation (mass/volume) [facility] Glucose [Mass/volume] in Ser um or PlasmaOrdered By: Brian Blanchard on 05-15-2024 Glucose [Mass/Vol] Glucose [Mass/volume ] in Serum or Plasma High 70-100 [facility] Comment on above: ADA recommended refe rence rangeRandom Glucose Reference Range is dependent on time and content of last meal. Glucose of more than 200 mg/dL in a nonstressed, ambulatory subject supports the diagnosis of Diabetes Mellitus. Hematocrit Auto (Bld) [Volum e fraction]Ordered By: Brian Blanchard on 05-15-2024 Hematocrit (Bld) [Volume fraction] Hematocrit [Volume Fraction] of Blood by Automated count 38.8-50.0 [facility] Hemoglobin [Mass/volume] in BloodOrdered By: Brian Blanchard on 05-15-2024 Hemoglobin (Bld) [Mass/Vol] Hemoglobin [Mass/volume] in Blood 13.0-17.0 [facility] INR in Platelet poor plasma by Coagulation assayOrdered By: Brian Blanchard on 05-15-2024 INR Coag (PPP) [Relative time] INR in Platelet poor plasma by Coagulation assay [facility] Comment on above: INR Therapeutic Rang e [...] erythrocytes in Blood by Automated coun 4.1-10.5 [facility] Lymphocytes Auto (Bld) [#/Vo l]Ordered By: Brian Blanchard on 05-15-2024 Lymphocytes (Bld) [#/Vol] Lymphocytes [#/volume] in Blood by Automated count 1.00-4.8 [facility] Lymphocytes/100 WBC Auto (Bl d)Ordered By: Brian Blanchard on 05-15-2024 Lymphocytes/100 WBC (Bld) Lymphocytes/100 leukocytes in Blood by Automated count . [facility] MCH Auto (RBC) [Entitic mass ]Ordered By: Brian Blanchard on 05-15-2024 MCH (RBC) [Entitic mass] MCH [Entitic mass] by Automated count 27.5-35.2 [facility] MCHC Auto (RBC) [Mass/Vol]Or dered By: Brian Blanchard on 05-15-2024 MCHC (RBC) [Mass/Vol] MCHC [Mass/volume] by Automated count 32.5-35.6 [facility] MCV Auto (RBC) [Entitic vol] Ordered By: Brian Blanchard on 05-15-2024 MCV (RBC) [Entitic vol] MCV [Entitic volume] by Automated count 83.5-101 [facility] Magnesiumon 05-15-2024 Magnesium [Mass/Vol] 1.5 mg/dL Low 1.9-2.7 [facility] Comment on above: Result Comment: PERF ORMED BY: [facility] [address] [place] [address] PATHOLOGIST FACTORY MANAGER BRANDON AVITIA M.D. Performed By: #### G ENRICO #### Point of Care testing , Magnesium [Mass/volume] in S fina or PlasmaOrdered By: Brian Blanchard on 05-15-2024 Magnesium [Mass/Vol] Magnesium [Mass/vol ume] in Serum or Plasma Low 1.9-2.7 [facility] Monocyte distribution width [Entitic volume] in Blood by AutomatedOrdered By: Brian Blanchard on 05-15-2024 Monocyte distribution width Auto (Bld) [Entitic vol] Monocyte distribution width [Entitic volume] in Blood by Automated High 0.00-20.00 [facility] Comment on above: For adults in ED, MD W > 20.0 may be associated with a higher risk of sepsis during the first 12 hrs of hospital admission Monocytes Auto (Bld) [#/Vol] Ordered By: Brian Blanchard on 05-15-2024 Monocytes (Bld) [#/Vol] Automated blood monocyte count High 0.0-0.8 [facility] Monocytes/100 WBC Auto (Bld) Ordered By: Brian Blanchard on 05-15-2024 Monocytes/100 WBC (Bld) Automated monocyte % . [facility] Natriuretic peptide B [Mass/ Vol]Ordered By: Brian Blanchard on 05-15-2024 Natriuretic peptide B (Bld) [Mass/Vol] BNP ser/plas 5-100 [facility] Neutrophils Auto (Bld) [#/Vo l]Ordered By: Brian Blanchard on 05-15-2024 Neutrophils (Bld) [#/Vol] Neutrophils [#/volume] in Blood by Automated count 1.8-7.7 [facility] Neutrophils/100 WBC Auto (Bl d)Ordered By: Brian Blanchard on 05-15-2024 Neutrophils/100 WBC (Bld) Automated neutrophil % . [facility] No Panel InformationOrdered By: Brian Blanchard on 05-15-2024 Blood Gas Critical Value See comment [facility] Comment on above: Critical Value vasquez d on: 05/15/2024 at 13:39 Blood Gas Sample Site Venous Fir [facility] FiO2 21 % [facility] Venous Blood Base Excess 0.3 mmol/L -3.0-3.0 [facility] Venous Blood Oxygen Content 1.8 mmol/L Low 6.6-9.7 [facility] Venous Blood Oxygen Saturation 19.6 % Critically low 73.0-76.0 [facility] Venous Blood Partial Pressure CO2 29.8 mm[Hg] Low 38.0-50.0 [facility] Venous Blood Partial Pressure O2 13.5 mm[Hg] Critically low 35.0-45.0 [facility] Venous Blood pH 7.50 High 7.32-7.43 [facility] Estimated GFR (CKD-EPI) > 60.0 mL/Min [facility] Pharmacy Creatinine Clearance (Chem N/A [facility] Nucleated erythrocytes [Pres ence] in Blood by Automated countOrdered By: Brian Blanchard on 05-15-2024 Nucleated RBC Auto Ql (Bld) Nucleated erythrocytes [Presence] in Blood by Automated count 0-0.5 [facility] Partial Thromboplastin Timeo n 05-15-2024 aPTT Coag (Bld) [Time] 35.8 s Normal 25.1-36.5 [facility] Comment on above: Result Comment: A he matocrit value greater than 55% may lead to inaccurate results in coagulation testing. Patients having hematocrit values >55% require a special collection tube for coagulation studies. Please contact the laboratory at [phone] for redraw instructions. PERFORMED BY: [place] [address] PATHOLOGIST FACTORY MANAGER BRANDON AVITIA M.D. Performed By: #### P TT, PT #### [address] Platelet mean volume Auto (B ld) [Entitic vol]Ordered By: Brian Blanchard on 05-15-2024 Platelet mean volume (Bld) [Entitic vol] Platelet mean volume [Entitic volume] in Blood by Automated count 6.6-10.1 [facility] Platelets Auto (Bld) [#/Vol] Ordered By: Brian Blanchard on 05-15-2024 Platelets (Bld) [#/Vol] Platelets [#/volume] in Blood by Automated count 150-450 [facility] Potassium [Moles/volume] in Serum or PlasmaOrdered By: Brian Blanchard on 05-15-2024 Potassium [Moles/Vol] Potassium [Moles/v olume] in Serum or Plasma 3.5-5.1 [facility] Comment on above: Hemolysis is present at a level that could interfere with the result.Contact lab if redraw is required Protein [Mass/volume] in Ser um or PlasmaOrdered By: Brian Blanchard on 05-15-2024 Protein [Mass/Vol] Protein [Mass/volume ] in Serum or Plasma 6.4-8.9 [facility] Prothrombin Time INRon 05-15 INR Coag (PPP) [Relative time] 1.6 {INR} Normal [facility] Comment on above: Result Comment: [...] Performed By: #### P TT, PT #### [facility] [address] [id number] [facility] PT Coag (PPP) [Time] 18.5 s High 9.0-12.9 [facility] Comment on above: Result Comment: A he matocrit value greater than 55% may lead to inaccurate results in coagulation testing. Patients having hematocrit values >55% require a special collection tube for coagulation studies. Please contact the laboratory at [phone] for redraw instructions. Performed By: #### P TT, PT #### [facility] [address] [place] [address] [facility] Prothrombin time (PT)Ordered By: Brian Blanchard on 05-15-2024 PT Coag (PPP) [Time] Prothrombin time (PT) High 9.0- 12.9 [facility] Comment on above: A hematocrit value g reater than 55% may lead to inaccurate results in coagulation testing. Patients having hematocrit values >55% require a special collection tube for coagulation studies. Please contact the laboratory at [phone] for redraw instructions. RBC Auto (Bld) [#/Vol]Ordere d By: Brian Blanchard on 05-15-2024 RBC (Bld) [#/Vol] Erythrocytes [#/volu me] in Blood by Automated count 3.90-5.60 [facility] Serum or plasma albumin/glob ulin mass ratioOrdered By: Brian Blanchard on 05-15-2024 Albumin/Globulin [Mass ratio] Serum or plasma albumin/globulin mass ratio [facility] Serum or plasma anion gap de terminationOrdered By: Brian Blanchard on 05-15-2024 Anion gap [Moles/Vol] Serum or plasma an ion gap determination High 6.0-15.0 [facility] Sodium [Moles/volume] in Ser um or PlasmaOrdered By: Brian Blanchard on 05-15-2024 Sodium [Moles/Vol] Sodium [Moles/volume ] in Serum or Plasma 136-145 [facility] Troponin I High Sensitivityo n 05-15-2024 Troponin I High Sensitivity 4 Normal 0-20 [facility] Comment on above: Result Comment: The Troponin units of report have been changed to meet the Chest Pain Accreditation requirement, element EC5.M1l2. Troponin units are changed from pg/ml to ng/L. Also, the decimal is removed and results are in whole numbers. PERFORMED BY: [place] [id number] PATHOLOGIST FACTORY MANAGER BRANDON AVITIA M.D. Performed By: #### G LULS #### Point of Care testing , Troponin I High Sensitivity 4 Normal 0-20 [facility] Comment on above: Result Comment: The Troponin units of report have been changed to meet the Chest Pain Accreditation requirement, element EC5.M1l2. Troponin units are changed from pg/ml to ng/L. Also, the decimal is removed and results are in whole numbers. PERFORMED BY: [address] [address] PATHOLOGIST FACTORY MANAGER BRANDON AVITIA M.D. Performed By: #### G LULS #### Point of Care testing , Troponin I.cardiac [Mass/vol ume] in Serum or Plasma by Detection limit <= 0.01 ng/Ordered By: Brian Blanchard on 05-15-2024 Troponin I.cardiac DL <= 0.01 ng/mL [Mass/Vol] Troponin I.cardiac [Mass/volume] in Serum or Plasma by Detection limit <= 0.01 ng/ 0-20 [facility] Comment on above: The Troponin units o f report have been changed to meet the Chest Pain Accreditation requirement, element EC5.M1l2. Troponin units are changed from pg/ml to ng/L. Also, the decimal is removed and results are in whole numbers. Urea nitrogen [Mass/volume] in Serum or PlasmaOrdered By: Brian Blanchard on 05-15-2024 Urea nitrogen [Mass/Vol] Urea nitrogen [Mass/volume] in Serum or Plasma 11-10 [facility] Venous Blood GasOrdered By: Brian Blanchard on 05-15-2024 CO2 [Moles/Vol] 23.4 mmol/L Low 24.0-29.0 [facility] Comment on above: Performed By: #### V BG #### Point of Care testing , HCO3 (Bld) [Moles/Vol] 22.5 mmol/L Low 23.0-29.0 [facility] Comment on above: Performed By: #### V BG #### Point of Care testing , Venous Blood [place] Respiratory Critical Normal [facility] Comment on above: Result Comment: Crit ical Value called on: 05/15/2024 at 13:39 PERFORMED BY: [facility] [address] [place] [address] PATHOLOGIST FACTORY MANAGER BRANDON AVITIA M.D. Performed By: #### V BG #### Point of Care testing , VBG Base Excess 0.3 mmol/L Normal -3.0-3.0 [facility] Comment on above: Performed By: #### V BG #### Point of Care testing , VBG Draw Site Venous Normal [facility] Comment on above: Performed By: #### V BG #### Point of Care testing , VBG Frac Inspired O2 21 % Normal [facility] Comment on above: Performed By: #### V BG #### Point of Care testing , VBG O2 Content 1.8 mmol/L Low 6.6-9.7 [facility] Comment on above: Performed By: #### V BG #### Point of Care testing , VBG Oxygen Saturation 19.6 % Off scale low 73.0-76.0 [facility] Comment on above: Performed By: #### V BG #### Point of Care testing , VBG PCO2 29.8 mm[Hg] Low 38.0-50.0 [facility] Comment on above: Performed By: #### V BG #### Point of Care testing , VBG PH Venous PH 7.50 High 7.32-7.43 [facility] Comment on above: Performed By: #### V BG #### Point of Care testing , VBG PO2 13.5 mm[Hg] Off scale low 35.0-45.0 [facility] Comment on above: Performed By: #### V BG #### Point of Care testing , WBC Auto (Bld) [#/Vol]Ordere d By: Brian Blanchard on 05-15-2024 WBC (Bld) [#/Vol] Leukocytes [#/volume ] in Blood by Automated count 4.1-10.5 [facility] X-ray reportOrdered By: David Dong on 05-15-2024 Study report [facility] [place] [address] XRay Report Signed Patient: Lyly Quinn MR#: [id number] : 1965 Acct:[id number] Age/Sex: 59 / M ADM Date: 5 Loc: ER Room: Type: [facility] ER Attending Dr: Copies to: Brian [...] Dong Jr., D.O.05/15/2024 1:50 PM Dictation Location: [place] [address] Transcribed By: [facility] 05/15/24 135 Dictated By: Elvin Dong Jr, DO 05/15/24 1350 Signed By: 05/15/24 1350 [facility] XR chest 2V*on 05-15-2024 XR chest 2V* [facility] [address] [place] [id number] XRay Report Signed Patient: Lyly Quinn MR#: [id number] : 1965 Acct:[id number] Age/Sex: 59 / M ADM Date: 05/15/24 Loc: ER Room: Type: [facility] ER Attending Dr: Copies to: Brian [...] Dong Jr., D.O.05/15/2024 1:50 PM Dictation Location: [place] [address] Transcribed By: [facility] 05/15/24 1350 Dictated By: Elvin Dong Jr, DO 05/15/24 1350 Signed By: 05/15/24 1350 Normal [facility] aPTT in Platelet poor plasma by Coagulation assayOrdered By: Brian Blanchard on 05-15-2024 aPTT Coag (PPP) [Time] Activated partial thromboplastin time (aPTT) in platelet poor plasma by coagulation a 25.1-36.5 [facility] Comment on above: A hematocrit value g reater than 55% may lead to inaccurate results in coagulation testing. Patients having hematocrit values >55% require a special collection tube for coagulation studies. Please contact the laboratory at [phone] for redraw instructions. Coding Summaryon 05-12-2024 Coding Summary HTMLBase 64 FsivvtfhOBy0bNx+PGhlYWQ+PE 5TVHTiS81dwELomS3dN2IEXEjU JyjjBNQKOWcXQoBzuoDuJO1rlI NjZXJu IC8+ND8tOFWcDmuugTIlz1L5yT I4J01kht0wOQtepOO5VKBqRyJz lulry1mwvKd7MOkpPpowAxAb OUZnwK30TKG2cT93Ip60gEMhuA Rbu0hoxCt9YaUuICArCQN6eMbu ZLbbb8FeEACyW60jhYYvd0P4 JPZukMtahPKgQqCnzNZ9jA6jVF ryztfqa7tobhxtXle5mi07bXRn h6A3kGV5X7VmkgQ9NXQvwPUs DbenzZOLnK9brkxks7sudkteAd UeLLLtEZk0RNl1BMKzoPljWcEf LZ64RTV0YYJushIeE4EfUBPu bVxhNmZ8w7W3Ft7DW6EIYwxfM3 VNTUFSWTwvdGQ+BY20ec47U4Zy NcqoPfz0LLUwVMT0xFH9hC2f NRUhUUobx4H9zLM4F3UeoqPjbe 3qp8ryGXRwZEuzG44jgBArk9H3 PGTxdFW8YTDlfNpdZtPnwL82 Oyc+QOUvxPsph0JpJqibn4bmb9 dplQz6GbwvNGYmcgUtzNasECQ4 j5YpKn8bGTVijNA3rSN4gC2j FpFoVbH4AOclN748IiGkgERsZy yqY81cL2WgvMB+QEQlTvd0EFWc zXqvTC5yO9AqCSWzxkklfKNx dVhbWA5lHZDcujybPLGomS6bQD BgR7z2UtBxMoI1IXaxM0VyIBMf cngeQz51nO0zIvVrPkL0YObg A1AuhaT8CRGyvXScKBogCSV6O3 3pv5Y7LMGaTTDlFXU9pRE2cL6x bGlnbjogbGVmdDsgdmVydGlj NBgtHYmpE404KVTsjVtfNcCoHS luZyBEYXRlOiAgMDEvMjQvMjAy NTwvdGQ+CXKeBVJ0dNpdOBJr hKGaLEkzDc0xcLtqdMlnYD7eBE IdjblnNGStbM9bPRCkmQGgoLov HY1nYKQholzxo289JuRuZMG1 TTVcnUZzX7FjlH9eQmIfIKErYZ IcA0FotAHsTHqnI085EPnnPdN1 NSPiwzBdX2MmSLYlvTtaVaF6 p5H7Ex4Rd3KhonjsX1BygEElFx BuRjkjDEk4G8NwIxpbiUP+PC90 CYSkVL96TNc8QXB6rUwvKYhu JLHqZ0FpjQ2cDvTfLFCsABMrFo c+PHRhYmxlIHdpZHRoPScxMDAl GpEsvMuqGV9dVm7uLNPuJSLu fTfprKWvIyPab8ipMXKbYUlmUG 4cyHeuY4JckJG5KZAbe8y6Pu25 G14wR4TyuVO+VEEcjQJ8tPN9 fU0qTbBnNwM0BXfmO459OcHxaN KgUfnbg9swp7ynoHo0WmV1GRYw elOaiDslDSP4a7FhPc87F52m IHdpZHRoPSIxNSUiIHZhbGlnbj 5vyG0cPj4+RXGdmHD5dYB1vK2x FoCkLfX4QCdbA293QnTnxLQw Mewoj5waz3dnmRd3NpQtKWHqaz IofRvpSCP0o5CtUq97E3SflUog v9MtNaq2kl90dIOqi6Y1fFX5 E9WyIEWsffngjOJezQolUA6qUR CbbnlxHTVojV0sIISrR5t5NuQx GeX5CLnmH6QkakJ1QHCakYGl ASFwgPCKhZ5zyxlqs0orwhqbZu LfVBNzLXs2ODb0TAUqrQkhVaMh WMQ1HjM5POO1mUVtqU3tgJzm cxgwuJ2iSyk+YXA1xGFthXJBIU 1lOjwvdGQ+RKEjVEW0qWrqJQhr AXObmW0oIBDkN2l6YtRwMvB4 HWbgR7VolnT2URMhrGZsXWKxzE VQoW3qbrlar7kwzwheRdEzIBPe GDm0SJz5AYLkgQmtGtReURF4 LfG7BAR2wLOolL4hnBmxjoaikY 9wOyc+NkqxvXarRUG3OAf9X7Qj Nem0OYRznHsnFB6igSVhYCkq Pf9lhQnhbVxfGO6rIYZabdthm3 49AbYrm1jzHQTcmLIjDOqkBBH4 N85fm0X7GBTlHBBmRYX1aAB3 rB4hiXftwrglvKWdhMmgpkFphT ozKXdaOBlnL621LQTlsPvlVaAh OSs2C7KlXba5OLFmbSvuTN0r rXFnJVgwPp4evUcciKazDX7tXB Jejicgy524RePjs6byQLMwsONl VMacXTF6G98uz9U6NPQpXRGa OXZ7jKJ4pM3cgZfrfaksnAOxlO asgoJttAviQEjdBUreS027QLBm xBrlRyMzvXd7U9WxGtl4RJZc eQwsVN8apZIvFCrjPq1ecGicsZ azGN8xBIWfnpxmo509FaZlp5xh KXKktWSwCEckWCU7L34hw0V0 LTHbHEPgASF9aRB9uJ4icWgpxx ogbGVmdDsgdmVydGljYWwtYWxp B023VPWsrJhgKxToyIlleeJn QOmsKYz4R8NzOobspCB+PC90YW WxJD59zIXbiQUsb5qcsWy2XxDr QYNyXTU3rPjtLIxzf5KyQLYl N10xvIGlq0X0GVMgzGljaKXuPm VyiGG2pQ0lADtmyvmcs9tacscs Fuvia5mtxp16lP46O07hTVgt PETqSBThTXQtTLKtvVneme5siQ 9wIi8+ZQEidMG7uXO2wF9wGMGj IgM4FNnlB609JoVhfAJmPbbb w2pbm4xjcOz8EbT1KRAdkfKqlZ sfRSV8c2QcZp24F87hTPkgXIEw SAPaFAOcFFCoxRzeie4xzS0o Ii8+ARUhxBD3uDN6fX5nHcIlUr Z4NHkvY163TjSypLEgSobsS96n X9IwnRE+HZKkBdg8YVLppZcw AQ9qrZUiQApxBe3fBNU5YoMuEd AuEWqwJ5VgZHNtzxqtywiwxNQ2 NHFyXAUxtE31Dd8kbHknVCYs sDGKiY0wiosjf7nmyctqPaUlII JlFAl6NRl0KJPuxPbtBgBtEUO4 DnF7EBW8nHUghJ5yyPdogdcw rI9mD6VlYZWprwhkVj86qT3oXl FuXwE7IRniRrz+KizML3WwJIYP TZ3nI8tHJOuKPLbtxFL+PHRk ARN4lHyhIZqjNLIxdD7ySTTmZ8 v2VvYlGxK6VAqcQ2WaDYLbckvt No90sR3mUvGdZxZ0LJahK7Do pkE3IDBlqIWsVBxsTLD5C83mk2 T4HTEzEQGbZDJ0pFP3fT2xuAqi bjogbGVmdDsgdmVydGljYWwt AUqhS343FWHezIwrVoGbYnJ0Cf H1YxE3T8EhJdg6WVRdcWltTK5d nDDaNMopSl6bjNucuWswLC9t NLHnhajhVUTtaA5iPRJsuRTylL rpPM1mCLGzagscf948XnQvYFW0 WCHxkOLyN2ZpqY3qOfAxAKFt YIKzP3MujOXpWQjpN240YOclSs G3FPGngfMhB6JeNMFzuChaTjZ5 u2F9Bl01WXUBXOVnaopfvAB+ QMKqBJQ4lDkwBLroCMLfwN3iDA YeZ6d3UiSvKxS7YNyxD2FmBJVx hatqVe16yO2cHrHcDzC3WGzr B6JfeoT0VVEyiKMcFDfbVJO4Q2 9uq6P6LFBeSPEoRCH9bEA7zH4f bGlnbjogbGVmdDsgdmVydGlj CDolDCpnS195LAUuuMxfKy7NMY P2M6SfAbk8CCEovRtiYD0efZZl GGqrJm6bjGqrnMszTJ4bSXEh cafyWCVblZ9xZXMgcUKmwGskPC 8sSDIfgujtm853EbJnIWK8AKLb jJGhH8GaeZ3yJbKfFTRbHPKq Q2TffKAsKYimT311VYduOvU2EB YjnzWzI9EmGMHntKmaHnI7x1U1 Sz7WDNwfkFL+ST53ej44K2Jw FlqoRsy7FROmTTQ7tST1dJ9hRX WmXTicv8X0eFT4Y6QumnIfwu8a b5rlUALqAPsaF43jaTAec8F9 TFVwsFZ1PWKqfQgcJoAzeN97Tj c+KZLlgUngx0UgEfpsb8pkl5ur yXa8PjNdVFKkxrBjtAezKMN9 y8QoGv14O28wWPqhGKEdFGDoJJ UvNNZwcRwdru7iuF9pAi4+PGNv lUW3jFO5aQ0mMdQeVhO9WCxs Q416HqJqgUHqInill7pfj3idpM e9BrOlCEUtmmMokDtaLKJ9h7Bj Ok43C3XkeLxpn1WnKdm9zl11 vQVzd6L4iOL1J9EdIUAwzzkazK AsyJrlKK0kHPYodfrfAJRneC2v WFCvQ8b0MqPwMoS2MCznJ2Mp lyU5JFLxwKBzWHEhkGGNuG7gsx sja3bhlhslJxNvSQWlVSn6XXs6 HPMcaKazDaYaWQY3TpP8SRR8 uXIiyH0xdTsfeqhkmA5bGpj+UG q5c3wonAEkIJ6xpGT1ER96DS87 jIEgk5G3aAQ1O3CxJMChmtbz zrgjwVS3RBEbMGAmkQ84Jo4ouW yuFx4rJJOlUYT5ALLyzWYaZ4Wj bN9yJtYmQAUaKNCwQ0YagCVt AMpmO636QQzlMtH3MFGbvvOoX2 WqSEJyiGveXcY9a5A0Hq3JIE68 OZ77RR19fATvr3H3wWL9J0Za FRUzmlgkwfhxnJE4DUOwVLCtgB 29Bx3ppZfqNb4iEOGmHTR8LDSc pDDdI0GkjZ2cZqGdIYXxPQQk A0IgcHTrYOxuT411ZBenKrP6XA CqrqIzE5EqBBHivFaxPxT4t0T5 Qk4EOs21YQ67KP28pSNtx8T9 rGO7T2BqWRUkqjfnarrtdAC4ND OoANFejX13Gq9zzWliPr9nSZBc MGU7CEJizSEoV4IheX0vIyUj GPLfLCDwI6HvfUHfBOaoK039HT enUfZ2RVWigbAnJ3HiWZNtdXwg OrC9j6D3Cd3KTGlgqwq7V3Dv PjwvdHI+SM70YPYzYM77pBRerP Dsp5vjdYg6JqBiHPZjFVS8tQbv GWqyv3NvXJLwB24ayAOke0G3 IGN (more content not included)... [facility] Consent Formson 05-12-2024 Consent Forms [id number]#1.00OTGTIFF [facility] BUN/Creat Ratioon 05-10-2024 eGFR Non AA >60 Invalid Interpretation Code [facility] Comment on above: Performed By: #### 1 [id number] ####[facility] (DEFAULT)[address] [place] [address] eGFR AA >60 Invalid Interpretation Code [facility] Comment on above: Performed By: #### 1 [id number] ####[facility] (DEFAULT)[address] [place] [address] Creatinine [Mass/Vol] 0.81 mg/dL Low 0.90-1.30 [facility] Comment on above: Performed By: #### 1 [id number] ####[facility] (DEFAULT)[address] [place] [address] Urea nitrogen [Mass/Vol] 10 mg/dL Normal 8-26 [facility] Comment on above: Performed By: #### 1 [id number] ####[facility] (DEFAULT)[address] [place] [address] Urea nitrogen/Creatinine [Mass ratio] 12.3 mg/mg Normal 4.6-16.2 [facility] Comment on above: Performed By: #### 1 [id number] ####[facility] (DEFAULT)[address] [place] [address] PE Chest w/ Contraston CT PE [...] 05/10/24 4:36 pm Technologist: LT PATRICK Normal [facility] Rad - Other Radiology Report on 05-10-2024 Rad - Other Radiology Report [id number]#1.00OTGTIF F Normal [facility] Reminder Messageson 05-10-19 Reminder Messages - From: Kimi Weiss DO To: [employer] ([facility]); Sent: 05/10/2024 16:45:39 EST Show up: 05/10/2024 16:46:00 EST Subject: Results Follow Up Due Date/Time: 05/11/2024 16:45:00 EST normal I will speak to Lyly Results: Date Result Type Result Name 05/10/2024 16:[address] PE Chest w/ Contrast [facility] Reminder Messages - From: Kimi Weiss DO To: [employer] ([facility]); Sent: 05/10/2024 16:17:16 EST Show up: [...] 15:36 eGFR Non AA >60 mL/min/1.73m2 Normal [facility] Stress Teston 04-18-2024 Stress Test [id number][facility]-17-2024 Outside Records [id number][facility] Re porton 04-17-2024 Rad - Catheterization Lab Report [id number]#[facility] Basophils Auto (Bld) [#/Vol] Ordered By: Jacinto Livingston on 04-13-2024 Basophils (Bld) [#/Vol] Automated basophil count 0.0-0.2 [facility] Basophils/100 WBC Auto (Bld) Ordered By: Jacinto Livingston on 04-13-2024 Basophils/100 WBC (Bld) Automated basophil % . [facility] Blood Urea Nitrogenon 2023 Urea nitrogen [Mass/Vol] 13 mg/dL Normal 7-25 [facility] Comment on above: Performed By: #### G LULS #### Point of Care testing , Carbon dioxide, total [Moles /volume] in Serum or PlasmaOrdered By: Jacinto Livingston on 04-13-2024 CO2 [Moles/Vol] Carbon dioxide, tota l [Moles/volume] in Serum or Plasma 21.0-31.0 [facility] Chloride [Moles/volume] in S fina or PlasmaOrdered By: Jacinto Livingston on 04-13-2024 Chloride [Moles/Vol] Chloride [Moles/vol ume] in Serum or Plasma 98-107 [facility] Coagulation Profileon 2023 aPTT Coag (Bld) [Time] 27.1 s Normal 25.1-36.5 [facility] Comment on above: Result Comment: A he matocrit value greater than 55% may lead to inaccurate results in coagulation testing. Patients having hematocrit values >55% require a special collection tube for coagulation studies. Please contact the laboratory at [phone] for redraw instructions. PERFORMED BY: [address] [place] [address] PATHOLOGIST FACTORY MANAGER BRANDON AVITIA M.D. Performed By: #### G LULS #### Point of Care testing , INR Coag (PPP) [Relative time] 1.0 {INR} Normal [facility] Comment on above: Result Comment: [...] (PPP) [Time] 11.2 s Normal 9.0-12.9 [facility] Comment on above: Result Comment: A he matocrit value greater than 55% may lead to inaccurate results in coagulation testing. Patients having hematocrit values >55% require a special collection tube for coagulation studies. Please contact the laboratory at [phone] for redraw instructions. Performed By: #### G LULS #### Point of Care testing , Complete Blood Count Auto Di ffon 04-13-2024 Basophils (Bld) [#/Vol] 0.0 10*3/uL Normal 0.0-0.2 [facility] Comment on above: Result Comment: PERF ORMED BY: [place] [id number] [place] [address] PATHOLOGIST FACTORY MANAGER BRANDON AVITIA M.D. Performed By: #### G LULS #### Point of Care testing , Basophils/100 WBC (Bld) 0.6 % Normal . [facility] Comment on above: Performed By: #### G LULS #### Point of Care testing , Eosinophils (Bld) [#/Vol] 0.1 10*3/uL Normal 0.0-0.45 [facility] Comment on above: Performed By: #### G LULS #### Point of Care testing , Eosinophils/100 WBC (Bld) 1.9 % Normal . [facility] Comment on above: Performed By: #### G LULS #### Point of Care testing , Erythrocyte distribution width (RBC) [Ratio] 13.0 % Normal 12.0-14.8 [facility] Comment on above: Performed By: #### G LULS #### Point of Care testing , Hematocrit (Bld) [Volume fraction] 40.6 % Normal 38.8-50.0 [facility] Comment on above: Performed By: #### G LULS #### Point of Care testing , Hemoglobin (Bld) [Mass/Vol] 13.8 g/dL Normal 13.0-17.0 [facility] Comment on above: Performed By: #### G LULS #### Point of Care testing , Lymphocytes (Bld) [#/Vol] 2.5 10*3/uL Normal 1.00-4.8 [facility] Comment on above: Performed By: #### G LULS #### Point of Care testing , Lymphocytes/100 WBC (Bld) 37.3 % Normal . [facility] Comment on above: Performed By: #### G LULS #### Point of Care testing , MCH (RBC) [Entitic mass] 30.9 pg Normal 27.5-35.2 [facility] Comment on above: Performed By: #### G LULS #### Point of Care testing , MCV (RBC) [Entitic vol] 90.6 fL Normal 83.5-101 [facility] Comment on above: Performed By: #### G LULS #### Point of Care testing , Mean Corpuscular HGB Conc 34.1 g/dL Normal 32.5-35.6 [facility] [facility] Comment on above: Performed By: #### G LULS #### Point of Care testing , Monocytes (Bld) [#/Vol] 0.5 10*3/uL Normal 0.0-0.8 [facility] Comment on above: Performed By: #### G LULS #### Point of Care testing , Monocytes/100 WBC (Bld) 8.1 % Normal . [facility] Comment on above: Performed By: #### G LULS #### Point of Care testing , Neutrophils (Bld) [#/Vol] 3.5 10*3/uL Normal 1.8-7.7 [facility] Comment on above: Performed By: #### G LULS #### Point of Care testing , Neutrophils/100 WBC (Bld) 52.1 % Normal . [facility] Comment on above: Performed By: #### G LULS #### Point of Care testing , NRBC% 0.3 /100{WBC} Normal 0-0.5 [facility] Comment on above: Performed By: #### G LULS #### Point of Care testing , Platelet mean volume (Bld) [Entitic vol] 7.6 fL Normal 6.6-10.1 [facility] Comment on above: Performed By: #### G LULS #### Point of Care testing , Platelets (Bld) [#/Vol] 229 10*3/uL Normal 150-450 [facility] Comment on above: Performed By: #### G LULS #### Point of Care testing , RBC (Bld) [#/Vol] 4.48 10*6/uL Normal 3.90-5.60 [facility] Comment on above: Performed By: #### G LULS #### Point of Care testing , WBC (Bld) [#/Vol] 6.7 10*3/uL Normal 4.1-10.5 [facility] Comment on above: Performed By: #### G LULS #### Point of Care testing , Consultation/Specialist Note on 04-13-2024 Consultation/Specialis t Note [id number] Normal [facility] Creatinineon 04-13-2024 Creatinine [Mass/Vol] 0.80 mg/dL Normal 0.70-1.30 [facility] Comment on above: Performed By: #### G LULS #### Point of Care testing , Creatinine Clr Calc Pharmacy 134.56 Normal [facility] Comment on above: Result Comment: PERF ORMED BY: [facility] [place] [address] PATHOLOGIST FACTORY MANAGER BRANDON AVITIA M.D. Performed By: #### G LULS #### Point of Care testing , GFR/1.73 sq M.predicted MDRD (S/P/Bld) [Vol rate/Area] mL/min/{1.73_m2} Normal [facility] Comment on above: Performed By: #### G LULS #### Point of Care testing , Creatinine [Mass/volume] in Serum or PlasmaOrdered By: Jacinto Livingston on 04-13-2024 Creatinine [Mass/Vol] Creatinine [Mass/v olume] in Serum or Plasma 0.70-1.30 [facility] Electrolyteson 04-13-2024 Anion gap [Moles/Vol] 11.2 mmol/L Normal 6.0-15.0 [facility] Comment on above: Performed By: #### G LULS #### Point of Care testing , Chloride [Moles/Vol] 104 mmol/L Normal 98-107 [facility] Comment on above: Performed By: #### G LULS #### Point of Care testing , CO2 [Moles/Vol] 25.2 mmol/L Normal 21.0-31.0 [facility] Comment on above: Performed By: #### G LULS #### Point of Care testing , Potassium [Moles/Vol] 4.4 mmol/L Normal 3.5-5.1 [facility] Comment on above: Result Comment: Hemo lysis is present at a level that could interfere with the result. Contact lab if redraw is required Performed By: #### G LULS #### Point of Care testing , Sodium [Moles/Vol] 136 mmol/L Normal 136-145 [facility] Comment on above: Performed By: #### G LULS #### Point of Care testing , Eosinophils Auto (Bld) [#/Vo l]Ordered By: Jacinto Livingston on 04-13-2024 Eosinophils (Bld) [#/Vol] Automated eosinophil count 0.0-0.45 [facility] Eosinophils/100 WBC Auto (Bl d)Ordered By: Jacinto Livingston on 04-13-2024 Eosinophils/100 WBC (Bld) Automated eosinophil % . [facility] Erythrocyte distribution wid th Auto (RBC) [Ratio]Ordered By: Jacinto Livingston on 04-13-2024 Erythrocyte distribution width (RBC) [Ratio] Erythrocyte distribution width [Ratio] by Automated count 12.0-14.8 [facility] Glucose Glucometer (BldC) [M ass/Vol]Ordered By: Leslie Sanchez on 04-13-2024 Glucose [Mass/Vol] Capillary blood gluc ose measurement by glucometer (mass/volume) [facility] Comment on above: Random Glucose Refer ence Range is dependent on time and content of last meal. Glucose of more than 200 mg/dL in a nonstressed, ambulatory subject supports the diagnosis of Diabetes Mellitus. Glucose Poct Glucometerson 1 06-14-2023 Glucose [Mass/Vol] 191 mg/dL Normal [facility] Comment on above: Result Comment: [place] [facility] Glucose Reference Range is dependent on time and content of last meal. Glucose of more than 200 mg/dL in a nonstressed, ambulatory subject supports the diagnosis of Diabetes Mellitus. PERFORMED BY: [facility] [address] [place] [address] PATHOLOGIST FACTORY MANAGER BRANDON AVITIA M.D. Performed By: #### G ENRICO #### Point of Care testing , Hematocrit Auto (Bld) [Volum e fraction]Ordered By: Jacinto Livingston on 04-13-2024 Hematocrit (Bld) [Volume fraction] Hematocrit [Volume Fraction] of Blood by Automated count 38.8-50.0 [facility] Hemoglobin [Mass/volume] in BloodOrdered By: Jacinto Livingston on 04-13-2024 Hemoglobin (Bld) [Mass/Vol] Hemoglobin [Mass/volume] in Blood 13.0-17.0 [facility] INR in Platelet poor plasma by Coagulation assayOrdered By: Jacinto Livingston on 04-13-2024 INR Coag (PPP) [Relative time] INR in Platelet poor plasma by Coagulation assay [facility] Comment on above: INR Therapeutic Rang e [...] erythrocytes in Blood by Automated coun 4.1-10.5 [facility] Lymphocytes Auto (Bld) [#/Vo l]Ordered By: Jacinto Livingston on 04-13-2024 Lymphocytes (Bld) [#/Vol] Lymphocytes [#/volume] in Blood by Automated count 1.00-4.8 [facility] Lymphocytes/100 WBC Auto (Bl d)Ordered By: Jacinto Livingston on 04-13-2024 Lymphocytes/100 WBC (Bld) Lymphocytes/100 leukocytes in Blood by Automated count . [facility] MCH Auto (RBC) [Entitic mass ]Ordered By: Jacinto Livingston on 04-13-2024 MCH (RBC) [Entitic mass] MCH [Entitic mass] by Automated count 27.5-35.2 [facility] MCHC Auto (RBC) [Mass/Vol]Or dered By: Jacinto Livingston on 04-13-2024 MCHC (RBC) [Mass/Vol] MCHC [Mass/volume] by Automated count 32.5-35.6 [facility] MCV Auto (RBC) [Entitic vol] Ordered By: Jacinto Livingston on 04-13-2024 MCV (RBC) [Entitic vol] MCV [Entitic volume] by Automated count 83.5-101 [facility] Monocytes Auto (Bld) [#/Vol] Ordered By: Jacinto Livingston on 04-13-2024 Monocytes (Bld) [#/Vol] Automated blood monocyte count 0.0-0.8 [facility] Monocytes/100 WBC Auto (Bld) Ordered By: Jacinto Livingston on 04-13-2024 Monocytes/100 WBC (Bld) Automated monocyte % . [facility] Neutrophils Auto (Bld) [#/Vo l]Ordered By: Jacinot Livingston on 04-13-2024 Neutrophils (Bld) [#/Vol] Neutrophils [#/volume] in Blood by Automated count 1.8-7.7 [facility] Neutrophils/100 WBC Auto (Bl d)Ordered By: Jacinto Livingston on 04-13-2024 Neutrophils/100 WBC (Bld) Automated neutrophil % . [facility] No Panel InformationOrdered By: Jacinto Livingston on 04-13-2024 Estimated GFR (CKD-EPI) > 60.0 mL/Min [facility] Pharm[facility] Creatinine Clearance (Chem 134.56 [facility] Nucleated erythrocytes [Pres ence] in Blood by Automated countOrdered By: Jacinto Livingston on 04-13-2024 Nucleated RBC Auto Ql (Bld) Nucleated erythrocytes [Presence] in Blood by Automated count 0-0.5 [facility] Platelet mean volume Auto (B ld) [Entitic vol]Ordered By: Jacinto Livingston on 04-13-2024 Platelet mean volume (Bld) [Entitic vol] Platelet mean volume [Entitic volume] in Blood by Automated count 6.6-10.1 [facility] Platelets Auto (Bld) [#/Vol] Ordered By: Jacinto Livingston on 04-13-2024 Platelets (Bld) [#/Vol] Platelets [#/volume] in Blood by Automated count 150-450 [facility] Potassium [Moles/volume] in Serum or PlasmaOrdered By: Jacinto Livingston on 04-13-2024 Potassium [Moles/Vol] Potassium [Moles/v olume] in Serum or Plasma 3.5-5.1 [facility] Comment on above: Hemolysis is present at a level that could interfere with the result.Contact lab if redraw is required Prothrombin time (PT)Ordered By: Jacinto Livingston on 04-13-2024 PT Coag (PPP) [Time] Prothrombin time (PT) 9.0- 12.9 [facility] Comment on above: A hematocrit value g reater than 55% may lead to inaccurate results in coagulation testing. Patients having hematocrit values >55% require a special collection tube for coagulation studies. Please contact the laboratory at [phone] for redraw instructions. RBC Auto (Bld) [#/Vol]Ordere d By: Jacinto Livingston on 04-13-2024 RBC (Bld) [#/Vol] Erythrocytes [#/volu me] in Blood by Automated count 3.90-5.60 [facility] Serum or plasma anion gap de terminationOrdered By: Jacinto Livingston on 04-13-2024 Anion gap [Moles/Vol] Serum or plasma an ion gap determination 6.0-15.0 [facility] Sodium [Moles/volume] in Ser um or PlasmaOrdered By: Jacinto Livingston on 04-13-2024 Sodium [Moles/Vol] Sodium [Moles/volume ] in Serum or Plasma 136-145 [facility] Urea nitrogen [Mass/volume] in Serum or PlasmaOrdered By: Jacinto Livingston on 04-13-2024 Urea nitrogen [Mass/Vol] Urea nitrogen [Mass/volume] in Serum or Plasma 7-25 [facility] WBC Auto (Bld) [#/Vol]Ordere d By: Jacinto Livingston on 04-13-2024 WBC (Bld) [#/Vol] Leukocytes [#/volume ] in Blood by Automated count 4.1-10.5 [facility] aPTT in Platelet poor plasma by Coagulation assayOrdered By: Jacinto Livingston on 04-13-2024 aPTT Coag (PPP) [Time] Activated partial thromboplastin time (aPTT) in platelet poor plasma by coagulation a 25.1-36.5 [facility] Comment on above: A hematocrit value g reater than 55% may lead to inaccurate results in coagulation testing. Patients having hematocrit values >55% require a special collection tube for coagulation studies. Please contact the laboratory at [phone] for redraw instructions. COVID-19 Antigenon 4 COVID-19 [...] developed and its performance characteristic determined by [employer] and validated at [facility]. This test has not been FDA cleared [...] for SARS Antigen by [facility] PERFORMED BY: [place] [address] PATHOLOGIST FACTORY MANAGER BRANDON AVITIA M.D. Normal [facility] Comment on above: Performed By: #### H S TROP #### [address] Glucose Poct Glucometerson 1 06-13-2023 Glucose [Mass/Vol] 223 mg/dL Normal [facility] Comment on above: Result Comment: [facility] Glucose Reference Range is dependent on time and content of last meal. Glucose of more than 200 mg/dL in a nonstressed, ambulatory subject supports the diagnosis of Diabetes Mellitus. PERFORMED BY: [place] [address] PATHOLOGIST FACTORY MANAGER BRANDON AVITIA M.D. Performed By: #### G LULS #### Point of Care testing , Glucose [Mass/Vol] 121 mg/dL Normal [facility] Comment on above: Result Comment: [facility] Glucose Reference Range is dependent on time and content of last meal. Glucose of more than 200 mg/dL in a nonstressed, ambulatory subject supports the diagnosis of Diabetes Mellitus. PERFORMED BY: [place] [address] PATHOLOGIST FACTORY MANAGER BRANDON AVITIA M.D. Performed By: #### H S TROP #### [address] Glucose [Mass/Vol] 148 mg/dL Normal [facility] Comment on above: Result Comment: [facility] Glucose Reference Range is dependent on time and content of last meal. Glucose of more than 200 mg/dL in a nonstressed, ambulatory subject supports the diagnosis of Diabetes Mellitus. PERFORMED BY: [place] [address] PATHOLOGIST FACTORY MANAGER BRANDON AVITIA M.D. Performed By: #### G LULS #### Point of Care testing , Glucose [Mass/Vol] 178 mg/dL Normal [facility] Comment on above: Result Comment: [facility] Glucose Reference Range is dependent on time and content of last meal. Glucose of more than 200 mg/dL in a nonstressed, ambulatory subject supports the diagnosis of Diabetes Mellitus. PERFORMED BY: [place] [address] PATHOLOGIST FACTORY MANAGER BRANDON AVITIA M.D. Performed By: #### G LULS #### Point of Care testing , No Panel InformationOrdered By: Jacinto Livingston on 04-12-2024 SARS Antigen (LFIA) [facility] SARS-CoV+SARS-CoV-2 (COVID-1 9) Ag [Presence] in Respiratory specimen by Rapid immunoaOrdered By: Jacinto Livingston on 04-12-2024 SARS-CoV+SARS-CoV-2 (COVID-19) Ag IA.rapid Ql (Resp) COVID-19 EMMA Negative [facility] Comment on above: This is a duplicate Emma SARS Antigen (ROLANDO) result to be used for statistical tracking purpose only. Emma Ag Negativeon 04-12-20 Emma Ag Negative Negative Normal Negative [facility] Comment on above: Result Comment: This is a duplicate Emma SARS Antigen (ROLANDO) result to be used for statistical tracking purpose only. PERFORMED BY: [place] [address] PATHOLOGIST FACTORY MANAGER BRANDON AVITIA M.D. Performed By: #### H S TROP #### [place] [address] [place] A1C with Estimated Average G clintn 04-11-2024 Glucose [Mass/Vol] 229 mg/dL Normal [facility] Comment on above: Result Comment: PERF ORMED BY: [address] [address] PATHOLOGIST FACTORY MANAGER BRANDON AVITIA M.D. Performed By: #### G LULS #### Point of Care testing , HbA1c (Bld) [Mass fraction] 9.6 % High 4.3-5.6 [facility] Comment on above: Result Comment: Incr eased risk for diabetes: 5.7 - 6.4 diabetes: >6.4 glycemic control for adults with diabetes: <7.0 Performed By: #### G LULS #### Point of Care testing , Alanine aminotransferase [En zymatic activity/volume] in Serum or PlasmaOrdered By: Leslie Sanchez on 04-11-2024 ALT [Catalytic activity/Vol] Alanine aminotransferase [Enzymatic activity/volume] in Serum or Plasma 7-52 [facility] Albumin [Mass/volume] in Ser um or Plasma by Bromocresol green (BCG) dye binding methoOrdered By: Leslie Jonesr on 04-11-2024 Albumin BCG dye [Mass/Vol] Albumin [Mass/volume] in Serum or Plasma by Bromocresol green (BCG) dye binding metho 3.5-5.7 [facility] Alkaline phosphatase [Enzyma tic activity/volume] in Serum or PlasmaOrdered By: Leslie Sanchez on 04-11-2024 ALP [Catalytic activity/Vol] Alkaline phosphatase [Enzymatic activity/volume] in Serum or Plasma 34-104 [facility] Aspartate aminotransferase [ Enzymatic activity/volume] in Serum or PlasmaOrdered By: Leslie Sanchez on 04-11-2024 AST [Catalytic activity/Vol] Aspartate aminotransferase [Enzymatic activity/volume] in Serum or Plasma 13-39 [facility] Bilirubin.total [Mass/volume ] in Serum or PlasmaOrdered By: Leslie Sanchez on 04-11-2024 Bilirubin [Mass/Vol] Bilirubin.total [Mass/volume] in Serum or Plasma 0.3-1.0 [facility] Blood estimated average gluc ose determination by estimation from glycated hemoglobinOrdered By: Leslie Sanchez on 04-11-2024 Average glucose Estimated from glycated hemoglobin (Bld) [Mass/Vol] Glucose mean value [Mass/volume] in Blood Estimated from glycated hemoglobin [facility] Calcium [Mass/volume] in Ser um or PlasmaOrdered By: Leslie Sanchez on 04-11-2024 Calcium [Mass/Vol] Calcium [Mass/volume ] in Serum or Plasma 8.6-10.3 [facility] Cholesterol [Mass/volume] in Serum or PlasmaOrdered By: Leslie Sanchez on 04-11-2024 Cholesterol [Mass/Vol] Cholesterol [Mass /volume] in Serum or Plasma 140-200 [facility] Comment on above: Chol less than 200 m g/dl low riskChol 201-239 mg/dl borderline riskChol 240 mg/dl and greater high risk Cholesterol in HDL [Mass/vol ume] in Serum or PlasmaOrdered By: Leslie Sanchez on 04-11-2024 Cholesterol in HDL [Mass/Vol] Serum or plasma high density lipoprotein (HDL) cholesterol measurement 23- [facility] Comment on above: HDL CHOL ATP-III CLA SSIFICATION Cardiovascular RiskHDL > or equal to 60 mg/dL LOWHDL < 40 mg/dL HIGH Cholesterol in LDL Calc [Mas s/Vol]Ordered By: Leslie Sanchez on 04-11-2024 Cholesterol in LDL [Mass/Vol] Cholesterol in LDL [Mass/volume] in Serum or Plasma by calculation 0-100 [facility] Comment on above: LDL ATP III CLASSIFI CATIONLDL less than 100 mg/dL OptimalLDL 100-129 mg/dL Near or above optimalLDL 130-159 mg/dL Borderline highLDL 160-189 mg/dL HighLDL greater than 189 mg/dL Very high Cholesterol in VLDL Calc [Ma ss/Vol]Ordered By: Leslie Sanchez on 04-11-2024 Cholesterol in VLDL [Mass/Vol] Cholesterol in VLDL [Mass/volume] in Serum or Plasma by calculation [facility] Comprehensive Metabolic Pane cole 04-11-2024 Albumin [Mass/Vol] 3.7 g/dL Normal 3.5-5.7 [facility] Comment on above: Performed By: #### G LEFTYLS #### Point of Care testing , Albumin/Globulin [Mass ratio] 1.2 {ratio} Normal [facility] Comment on above: Performed By: #### G LEFTYLS #### Point of Care testing , ALP [Catalytic activity/Vol] 85 U/L Normal 34-104 [facility] Comment on above: Performed By: #### G LEFTYLS #### Point of Care testing , ALT [Catalytic activity/Vol] 42 U/L Normal 7-52 [facility] Comment on above: Performed By: #### G LEFTYLS #### Point of Care testing , Anion gap [Moles/Vol] 9.7 mmol/L Normal 6.0-15.0 [facility] Comment on above: Performed By: #### G LEFTYLS #### Point of Care testing , AST [Catalytic activity/Vol] 28 U/L Normal 13-39 [facility] Comment on above: Performed By: #### G LEFTYLS #### Point of Care testing , Bilirubin [Mass/Vol] 0.6 mg/dL Normal 0.3-1.0 [facility] Comment on above: Performed By: #### G LEFTYLS #### Point of Care testing , Calcium [Mass/Vol] 9.0 mg/dL Normal 8.6-10.3 [facility] Comment on above: Performed By: #### G LEFTYLS #### Point of Care testing , Chloride [Moles/Vol] 106 mmol/L Normal 98-107 [facility] Comment on above: Performed By: #### G LEFTYLS #### Point of Care testing , CO2 [Moles/Vol] 24.6 mmol/L Normal 21.0-31.0 [facility] Comment on above: Performed By: #### G LULS #### Point of Care testing , Creatinine [Mass/Vol] 1.03 mg/dL Normal 0.70-1.30 [facility] Comment on above: Performed By: #### G LULS #### Point of Care testing , Creatinine Clr Calc Pharmacy 104.51 Normal [facility] Comment on above: Performed By: #### G LULS #### Point of Care testing , GFR/1.73 sq M.predicted MDRD (S/P/Bld) [Vol rate/Area] mL/min/{1.73_m2} Normal [facility] Comment on above: Performed By: #### G LULS #### Point of Care testing , Globulin (S) [Mass/Vol] 3.0 g/dL Normal [facility] Comment on above: Performed By: #### G LULS #### Point of Care testing , Glucose [Mass/Vol] 160 mg/dL High 70-100 [facility] Comment on above: Result Comment: [facility] Glucose Reference Range is dependent on time and content of last meal. Glucose of more than 200 mg/dL in a nonstressed, ambulatory subject supports the diagnosis of Diabetes Mellitus. ADA recommended reference range Performed By: #### G LULS #### Point of Care testing , Potassium [Moles/Vol] 4.3 mmol/L Normal 3.5-5.1 [facility] Comment on above: Performed By: #### G LULS #### Point of Care testing , Protein [Mass/Vol] 6.7 g/dL Normal 6.4-8.9 [facility] Comment on above: Performed By: #### G LULS #### Point of Care testing , Sodium [Moles/Vol] 136 mmol/L Normal 136-145 [facility] Comment on above: Performed By: #### G LULS #### Point of Care testing , Urea nitrogen [Mass/Vol] 12 mg/dL Normal 7-25 [facility] Comment on above: Performed By: #### G LULS #### Point of Care testing , ECG 12 lead ECGon 04-11-2024 ECG 12 lead ECG [facility] [place] [address] [place] [id number] Electrocardiograph Report Signed Patient: Lyly Quinn MR#: [id number] : 1965 Acct:[id number] Age/Sex: 59 / M ADM Date: 04/10/24 Loc: Room: [address] [place] [address] Type: ADM INOo Attending Dr: Leslie Sanchez [...] change was found Confirmed by SUYAPA ANSARI [facility], FAY ([id number]) on 04/13/2024 11:13:08 AM Referred By: Electronically Signed By: FAY DALE MD [facility] Transcribed By: MUS Signed By Fay Dale MD, [facility] 04/13/24 1113 Normal [facility] Globulin Calc (S) [Mass/Vol] Ordered By: Leslie Sanchez on 04-11-2024 Globulin (S) [Mass/Vol] Serum globulin measurement by calculation (mass/volume) [facility] Glucose Poct Glucometerson 1 06-12-2023 Glucose [Mass/Vol] 178 mg/dL Normal [facility] Comment on above: Result Comment: [facility] Glucose Reference Range is dependent on time and content of last meal. Glucose of more than 200 mg/dL in a nonstressed, ambulatory subject supports the diagnosis of Diabetes Mellitus. PERFORMED BY: [address] [address] PATHOLOGIST FACTORY MANAGER BRANDON AVITIA M.D. Performed By: #### H S TROP #### [address] Glucose [Mass/Vol] 105 mg/dL Normal [facility] Comment on above: Result Comment: [place] [facility] Glucose Reference Range is dependent on time and content of last meal. Glucose of more than 200 mg/dL in a nonstressed, ambulatory subject supports the diagnosis of Diabetes Mellitus. PERFORMED BY: [place] [address] PATHOLOGIST FACTORY MANAGER BRANDON AVITIA M.D. Performed By: #### G LULS #### Point of Care testing , Glucose [Mass/Vol] 124 mg/dL Normal [facility] Comment on above: Result Comment: [place] [facility] Glucose Reference Range is dependent on time and content of last meal. Glucose of more than 200 mg/dL in a nonstressed, ambulatory subject supports the diagnosis of Diabetes Mellitus. PERFORMED BY: [place] [address] PATHOLOGIST FACTORY MANAGER BRANDON AVITIA M.D. Performed By: #### H S TROP #### [address] Commemt1 Glu2: Cleaned Meter Normal [facility] Comment on above: Result Comment: PERF ORMED BY: [place] [address] PATHOLOGIST FACTORY MANAGER BRANDON AVITIA M.D. Performed By: #### G LULS #### Point of Care testing , Glucose [Mass/Vol] 158 mg/dL Normal [facility] Comment on above: Result Comment: [place] [facility] Glucose Reference Range is dependent on [...] ] in Serum or Plasma High 70-100 [facility] Comment on above: ADA recommended refe rence rangeRandom Glucose Reference Range is dependent on time and content of last meal. Glucose of more than 200 mg/dL in a nonstressed, ambulatory subject supports the diagnosis of Diabetes Mellitus. Hemoglobin A1c/Hemoglobin.to madhuri in BloodOrdered By: Leslie Sanchez on 04-11-2024 HbA1c (Bld) [Mass fraction] Hemoglobin A1c percentage High 4.3-5.6 [facility] Comment on above: Increased risk for d iabetes: 5.7 - 6.4diabetes: >6.4glycemic control for adults with diabetes: <7.0 Lipid Panelon 04-11-2024 Cholesterol [Mass/Vol] 140 mg/dL Normal 140-200 [facility] Comment on above: Result Comment: Chol less than 200 mg/dl low risk Chol 201-239 mg/dl borderline risk Chol 240 mg/dl and greater high risk Performed By: #### G LULS #### Point of Care testing , Cholesterol in HDL [Mass/Vol] 35 mg/dL Normal 23-92 [facility] Comment on above: Result Comment: HDL CHOL ATP-III CLASSIFICATION Cardiovascular Risk HDL > or equal to 60 mg/dL LOW HDL < 40 mg/dL HIGH Performed By: #### G LULS #### Point of Care testing , Cholesterol.total/Chol esterol in HDL [Mass ratio] 4.0 {ratio} Normal <5.0 [facility] Comment on above: Performed By: #### G LULS #### Point of Care testing , LDL Cholesterol,Calculated 54 mg/dL Normal 0-100 [facility] Comment on above: Result Comment: LDL ATP III CLASSIFICATION LDL less than 100 mg/dL Optimal LDL 100-129 mg/dL Near or above optimal LDL 130-159 mg/dL Borderline high LDL 160-189 mg/dL High LDL greater than 189 mg/dL Very high Performed By: #### G LULS #### Point of Care testing , Triglyceride w/Reflex 253 mg/dL High 0-149 [facility] Comment on above: Result Comment: TRIG ATP III CLASSIFICATION TRIG less than 150 mg/dL Normal TRIG 150-199 mg/dL Borderline high TRIG 200-500 mg/dL High TRIG greater than 500 mg/dL Very high Standard traceable to the Center for Disease Conrtrol and Prevention (CDC) test method. Performed By: #### G LULS #### Point of Care testing , VLDL CHOLESTEROL 50 mg/dL Normal [facility] Comment on above: Performed By: #### G LULS #### Point of Care testing , Magnesiumon 04-11-2024 Magnesium [Mass/Vol] 2.0 mg/dL Normal 1.9-2.7 [facility] Comment on above: Performed By: #### G LULS #### Point of Care testing , Magnesium [Mass/volume] in S fina or PlasmaOrdered By: Leslie Jonesr on 04-11-2024 Magnesium [Mass/Vol] Magnesium [Mass/vol ume] in Serum or Plasma 1.9-2.7 [facility] No Panel InformationOrdered By: Leslie Sanchez on 04-11-2024 Bedside Glucose Comment Glu2: cleaned meter [facility] Outside Recordson 04-11-2024 Outside Records [id number]#1.00OTGTIFF Normal [facility] Outside Records [id number]#1.00OTGTIFF [facility] Protein [Mass/volume] in Ser um or PlasmaOrdered By: Leslie Jonesr on 04-11-2024 Protein [Mass/Vol] Protein [Mass/volume ] in Serum or Plasma 6.4-8.9 [facility] Rad - Other Radiology Report on 04-11-2024 Rad - Other Radiology Report [id number]#1.00OTGTIFF [facility] Serum or plasma albumin/glob ulin mass ratioOrdered By: Leslie Sanchez on 04-11-2024 Albumin/Globulin [Mass ratio] Serum or plasma albumin/globulin mass ratio [facility] Serum or plasma total choles terol/high density lipoprotein (HDL) cholesterol mass ratOrdered By: Leslie Sanchez on 04-11-2024 Cholesterol.total/Chol esterol in HDL [Mass ratio] Serum or plasma total cholesterol/high density lipoprotein (HDL) cholesterol mass rat <5.0 [facility] Thyroid Stimulating Hormoneo n 04-11-2024 TSH Qn 1.00 m[IU]/L Normal 0.45-5.33 [facility] Comment on above: Result Comment: PERF ORMED BY: [address] [place] [address] PATHOLOGIST FACTORY MANAGER BRANDON AVITIA M.D. Performed By: #### G LULS #### Point of Care testing , Thyrotropin [Units/volume] i n Serum or PlasmaOrdered By: Obbenny Jonesr on 04-11-2024 TSH Qn Thyrotropin [Units/v olume] in Serum or Plasma 0.45-5.33 [facility] Triglyceride [Mass/volume] i n Serum or PlasmaOrdered By: Obbenny Romeroomar on 04-11-2024 Triglyceride [Mass/Vol] Triglyceride [Mass/volume] in Serum or Plasma High 0-149 [facility] Comment on above: TRIG ATP III CLASSIF ICATIONTRIG less than 150 mg/dL NormalTRIG 150-199 mg/dL Borderline highTRIG 200-500 mg/dL High TRIG greater than 500 mg/dL Very highStandard traceable to the Center for Disease Conrtrol and Prevention (CDC) test method. B-Type Natriuretic Peptideon 04-10-2024 Natriuretic peptide B (Bld) [Mass/Vol] 26.0 pg/mL Normal 5-100 [facility] Comment on above: Result Comment: PERF ORMED BY: [facility] [address] [address] PATHOLOGIST FACTORY MANAGER BRANDON AVITIA M.D. Performed By: #### G LULS #### Point of Care testing , Basic Metabolic Panelon 03-20 Anion gap [Moles/Vol] 11.2 mmol/L Normal 6.0-15.0 [facility] Comment on above: Performed By: #### G LULS #### Point of Care testing , Calcium [Mass/Vol] 10.0 mg/dL Normal 8.6-10.3 [facility] Comment on above: Performed By: #### G LULS #### Point of Care testing , Chloride [Moles/Vol] 104 mmol/L Normal 98-107 [facility] Comment on above: Performed By: #### G LULS #### Point of Care testing , CO2 [Moles/Vol] 22.5 mmol/L Normal 21.0-31.0 [facility] Comment on above: Performed By: #### G LULS #### Point of Care testing , Creatinine [Mass/Vol] 0.82 mg/dL Normal 0.70-1.30 [facility] Comment on above: Performed By: #### G LULS #### Point of Care testing , Creatinine Clr Calc Pharmacy 130.19 Normal [facility] Comment on above: Result Comment: PERF ORMED BY: [address] [address] PATHOLOGIST FACTORY MANAGER BRANDON AVITIA M.D. Performed By: #### G LULS #### Point of Care testing , GFR/1.73 sq M.predicted MDRD (S/P/Bld) [Vol rate/Area] mL/min/{1.73_m2} Normal [facility] Comment on above: Performed By: #### G LULS #### Point of Care testing , Glucose [Mass/Vol] 143 mg/dL High 70-100 [facility] Comment on above: Result Comment: [facility] Glucose Reference Range is dependent on time and content of last meal. Glucose of more than 200 mg/dL in a nonstressed, ambulatory subject supports the diagnosis of Diabetes Mellitus. ADA recommended reference range Performed By: #### G LULS #### Point of Care testing , Potassium [Moles/Vol] 3.7 mmol/L Normal 3.5-5.1 [facility] Comment on above: Performed By: #### G LULS #### Point of Care testing , Sodium [Moles/Vol] 134 mmol/L Low 136-145 [facility] Comment on above: Performed By: #### G LULS #### Point of Care testing , Urea nitrogen [Mass/Vol] 10 mg/dL Normal 7-25 [facility] Comment on above: Performed By: #### G ENRICO #### Point of Care testing , Complete Blood Count Auto Di ffon 04-10-2024 Basophils (Bld) [#/Vol] 0.1 10*3/uL Normal 0.0-0.2 [facility] Comment on above: Result Comment: PERF ORMED BY: [place] [address] PATHOLOGIST FACTORY MANAGER BRANDON AVITIA M.D. Performed By: #### H S TROP #### [address] Basophils/100 WBC (Bld) 1.2 % Normal . [facility] Comment on above: Performed By: #### H S TROP #### [place] [address] [place] Eosinophils (Bld) [#/Vol] 0.1 10*3/uL Normal 0.0-0.45 [facility] Comment on above: Performed By: #### H S TROP #### [address] Eosinophils/100 WBC (Bld) 1.3 % Normal . [facility] Comment on above: Performed By: #### H S TROP #### [address] Erythrocyte distribution width (RBC) [Ratio] 12.8 % Normal 12.0-14.8 [facility] Comment on above: Performed By: #### H S TROP #### [address] Hematocrit (Bld) [Volume fraction] 44.8 % Normal 38.8-50.0 [facility] Comment on above: Performed By: #### H S TROP #### [address] Hemoglobin (Bld) [Mass/Vol] 15.4 g/dL Normal 13.0-17.0 [facility] Comment on above: Performed By: #### H S TROP #### [address] Lymphocytes (Bld) [#/Vol] 3.5 10*3/uL Normal 1.00-4.8 [facility] Comment on above: Performed By: #### H S TROP #### [address] Lymphocytes/100 WBC (Bld) 40.9 % Normal . [facility] Comment on above: Performed By: #### H S TROP #### [address] MCH (RBC) [Entitic mass] 31.1 pg Normal 27.5-35.2 [facility] Comment on above: Performed By: #### H S TROP #### [address] MCV (RBC) [Entitic vol] 90.4 fL Normal 83.5-101 [facility] Comment on above: Performed By: #### H S TROP #### [address] Mean Corpuscular HGB Conc 34.4 g/dL Normal 32.5-35.6 [facility] Comment on above: Performed By: #### H S TROP #### [address] Monocytes (Bld) [#/Vol] 0.5 10*3/uL Normal 0.0-0.8 [facility] Comment on above: Performed By: #### H S TROP #### [place] [address] [place] Monocytes/100 WBC (Bld) 21.73 % High 0.00-20.00 [facility] Comment on above: Result Comment: For adults in ED, MDW > 20.0 may be associated with a higher risk of sepsis during the first 12 hrs of hospital admission Performed By: #### H S TROP #### [place] [address] [place] Monocytes/100 WBC (Bld) 5.6 % Normal . [facility] Comment on above: Performed By: #### H S TROP #### [place] [address] [place] Neutrophils (Bld) [#/Vol] 4.3 10*3/uL Normal 1.8-7.7 [facility] Comment on above: Performed By: #### H S TROP #### [place] [address] [place] Neutrophils/100 WBC (Bld) 51.0 % Normal . [facility] Comment on above: Performed By: #### H S TROP #### [place] [address] [place] NRBC% 0.1 /100{WBC} Normal 0-0.5 [facility] Comment on above: Performed By: #### H S TROP #### [address] Platelet mean volume (Bld) [Entitic vol] 7.4 fL Normal 6.6-10.1 [facility] Comment on above: Performed By: #### H S TROP #### [place] [address] [place] Platelets (Bld) [#/Vol] 293 10*3/uL Normal 150-450 [facility] Comment on above: Performed By: #### H S TROP #### [place] [address] [place] RBC (Bld) [#/Vol] 4.96 10*6/uL Normal 3.90-5.60 [facility] Comment on above: Performed By: #### H S TROP #### [place] [address] [place] WBC (Bld) [#/Vol] 8.5 10*3/uL Normal 4.1-10.5 [facility] Comment on above: Performed By: #### H S TROP #### [address] D-Dimer High Sensitivityon 1 06-11-2023 D-Dimer High Sensitivity <200 Normal 0-243 [facility] Comment on above: Result Comment: [...] coagulation studies. Please contact the laboratory at [phone] for redraw instructions. PERFORMED BY: [place] [id number] PATHOLOGIST FACTORY MANAGER BRANDON AVITIA M.D. Performed By: #### G LULS #### Point of Care testing , ECG 12 lead ECGon 04-10-2024 ECG 12 lead ECG [facility] Main [address] [address] Electrocardiograph Report Signed Patient: Lyly Quinn MR#: [id number] : 1965 Acct:[id number] Age/Sex: 59 / M ADM Date: 04/10/24 Loc: ER Room: Type: [facility] ER Attending Dr: Ordering Provider: Des [...] Sinus tachycardia Confirmed by Brian BLANCHARD DO ([id number]) on 04/10/2024 3:39:55 PM Referred By: Electronically Signed By: Brian BLANCHARD DO Transcribed By: MUS Signed By Brian Blanchard DO 1 06/11/23 1539 Normal [facility] ECG 12 lead ECG [facility] [address] Electrocardiograph Report Signed Patient: Lyly Quinn MR#: [id number] : 1965 Acct:[id number] Age/Sex: 59 / M ADM Date: 04/10/24 Loc: ER Room: Type: [facility] ER Attending Dr: Ordering Provider: Des [...] sinus rhythm Confirmed by Brian BLANCHARD DO ([id number]) on 04/10/2024 3:38:47 PM Referred By: Electronically Signed By: Brian BLANCHARD DO Transcribed By: MUS Signed By Brian Blanchard DO 1 06/11/23 1538 Normal [facility] Fibrin D-dimer [Presence] in Platelet poor plasma by Latex agglutinationOrdered By: Des Contreras on 04-10-2024 Fibrin D-dimer LA Ql (PPP) Fibrin D-dimer [Presence] in Platelet poor plasma by Latex agglutination 0-243 [facility] Comment on above: The reference range for [...] coagulation studies. Please contact the laboratory at [phone] for redraw instructions. Glucose Poct Glucometerson 1 06-11-2023 Commemt1 Glu2: Cleaned Meter Normal [facility] Comment on above: Result Comment: PERF ORMED BY: [facility] [address] [place] [address] PATHOLOGIST FACTORY MANAGER BRANDON AVITIA M.D. Performed By: #### G LULS #### Point of Care testing , Glucose [Mass/Vol] 151 mg/dL Normal [facility] Comment on above: Result Comment: [place] [facility] Glucose Reference Range is dependent on time and content of last meal. Glucose of more than 200 mg/dL in a nonstressed, ambulatory subject supports the diagnosis of Diabetes Mellitus. Performed By: #### G LULS #### Point of Care testing , Glucose [Mass/Vol] 136 mg/dL Normal [facility] Comment on above: Result Comment: [place] [facility] Glucose Reference Range is dependent on time and content of last meal. Glucose of more than 200 mg/dL in a nonstressed, ambulatory subject supports the diagnosis of Diabetes Mellitus. PERFORMED BY: [facility] [address] [address] PATHOLOGIST FACTORY MANAGER BRANDON AVITIA M.D. Performed By: #### G LULS #### Point of Care testing , Monocyte distribution width [Entitic volume] in Blood by AutomatedOrdered By: Des Contreras on 04-10-2024 Monocyte distribution width Auto (Bld) [Entitic vol] Monocyte distribution width [Entitic volume] in Blood by Automated High 0.00-20.00 [facility] Comment on above: For adults in ED, MD W > 20.0 may be associated with a higher risk of sepsis during the first 12 hrs of hospital admission Natriuretic peptide B [Mass/ Vol]Ordered By: Des Contreras on 04-10-2024 Natriuretic peptide B (Bld) [Mass/Vol] BNP ser/plas 5-100 [facility] Outside Recordson 04-10-2024 Outside Records [id number]#1.00OTGTI FF Normal [facility] Outside Records [id number]#1.00OTGTI FF Normal [facility] Outside Records [id number]#1.00OTGTI FF Normal [facility] Outside Records [id number]#1.00OTGTI FF Normal [facility] Prothrombin Time INRon 04-10 INR Coag (PPP) [Relative time] 2.2 {INR} Normal [facility] Comment on above: Result Comment: [...] (PPP) [Time] 25.4 s High 9.0-12.9 [facility] Comment on above: Result Comment: A he matocrit value greater than 55% may lead to inaccurate results in coagulation testing. Patients having hematocrit values >55% require a special collection tube for coagulation studies. Please contact the laboratory at [phone] for redraw instructions. Performed By: #### G LULS #### Point of Care testing , Rad - Other Radiology Report on 04-10-2024 Rad - Other Radiology Report [id number]#1.00OTGTI [facility] Troponin I High Sensitivityo n 04-10-2024 Troponin I High Sensitivity 3.2 pg/mL Normal 0.0-20.0 [facility] Comment on above: Result Comment: PERF ORMED BY: [facility] [address] [place] [address] PATHOLOGIST FACTORY MANAGER BRANDON AVITIA M.D. Performed By: #### H S TROP #### [facility] [address] [place] [address] Troponin I High Sensitivity 3.1 pg/mL Normal 0.0-20.0 [facility] Comment on above: Result Comment: PERF ORMED BY: [place] [address] PATHOLOGIST FACTORY MANAGER BRANDON AVITIA M.D. Performed By: #### H S TROP #### [facility] [address] [place] [address] Troponin I High Sensitivity 3.0 pg/mL Normal 0.0-20.0 [facility] Comment on above: Result Comment: PERF ORMED BY: [place] [address] PATHOLOGIST FACTORY MANAGER BRANDON AVITIA M.D. Performed By: #### G LULS #### Point of Care testing , Troponin I.cardiac [Mass/vol ume] in Serum or Plasma by Detection limit <= 0.01 ng/Ordered By: Leslie Sanchez on 04-10-2024 Troponin I.cardiac DL <= 0.01 ng/mL [Mass/Vol] Troponin I.cardiac [Mass/volume] in Serum or Plasma by Detection limit <= 0.01 ng/ 0.0-20.0 [facility] XR chest 1V portableon 04-10 XR chest 1V portable [facility] Main [place] [address] [place] [address] XRay Report Signed Patient: Lyly Quinn MR#: [id number] : 1965 Acct:[id number] Age/Sex: 59 / M ADM Date: 04/10/24 Loc: ER Room: Type: [facility] ER Attending Dr: Copies to: Des [...] Africa Soni M.D.04/10/2024 12:55 PM Dictation Location: [place] [address] Transcribed By: RADHA 04/10/24 1255 Dictated By: Africa Soni MD 04/10/24 1253 Signed By: 04/10/24 1255 Normal [facility] Outside Recordson 04-07-2024 Outside Records [id number]#1.00OTGTIFF [facility] Outside Records [id number]#1.00OTGTIFF [facility] Rad - Other Radiology Report on 04-06-2024 Rad - Other Radiology Report [id number]#1.00OTGTIF [facility] Rad - Other Radiology Report on 04-04-2024 Rad - Other Radiology Report [id number]#1.00OTGTIFF [facility] Outside Recordson 04-03-2024 Outside Records [id number]#1.00OTGTIFF [facility] Influenza virus A and B and SARS-CoV-2 (COVID-19) RNA panel - Respiratory system specon 03-31-2024 Influenza virus A and B RNA and SARS-CoV-2 (COVID-19) N gene panel LEATHA+probe (Resp) Influenza virus A and B and SARS-CoV-2 (COVID-19) RNA panel - Respiratory system spec [facility] Laboratory - Microbiology an d Antimicrobial susceptibilityon 03-31-2024 SARS-CoV-2 (COVID-19) RNA LEATHA+probe Ql (Unsp spec) Negative [facility] No Panel Informationon 03-31 POC Influenza B (LEATHA) Negative [facility] Diabetes Noteon 03-21-2024 Diabetes Note Patient [...] 10:55 EST] Erica Quiroz RN CDE BSN [facility] Coding Summaryon 03-13-2024 Coding Summary HTMLBase 64 YatnwuqrHJg3cKp+PGhlYWQ+PE 7QMIYfU98gfHUvlN4hL9TQVXoG TgddMVMNJGrOAgXgmsXaVU4cgQ NjZXJu IC8+JU8rATNmNmpciQYdp2H9eX T0Z62hgm7pJZvdsOX8NZGaXfOb grmgl5zwcIr6DBdnYedyMeWs KLQxkF05CDF0mJ17Pe52aYQraU Gwy5uxgMf1HqLbUDCbZTE4eKhq PNjes1VlSWFvC78gnQTtt9Q6 EBVquUctyLQyYsLjeWM2tD4yYA dmucmfc2uepoxzQon3yu88nKZx o1M7nJI5Y3BtmvX6XALwgPCt MsuehOICvZ7gdymgs2kftjpbLu FuBLNyBPh9OAz5QZLyyTzoVeQl NX60MQD7PXRrnhGnR4GrQYAi iDrxFdX7q0O0Ys5JT1SNGmjsD4 VNTUFSWTwvdGQ+AQ00au48D1Kv CohqOev2UUEkLSP8lDY6mN2k VXIeMLhxg0E8iEL0Z7ZeniFhek 1wo3wsHQDhJMhoU88llJGqf8E7 KRYlxKZ8LHEdhThuPuDjaT76 Oyc+DWLhfNlfz2OtMzqnk1hxc7 almTn9FslwDOIjcbGkkOtuAXD9 w4EoAy5jHWJdpLJ5bDL9hC1w WhNqZyK2MIdwE658DnZytNRqRj fjX79yJ3EktIE+KAQpKkq4VQXq uEwyFS4hA7PjVNMclgoblWZk gRjuGD7oILNlyakuALUyaO6gSK VsR8g9LrRzKnQ0HEdcW1UlHOCy atzlUv45pJ6wKdBgJhQ2KOvr E5AwiaP0TXAqjVXeCQhrSWW3V2 1rr0X9UBJoPZPkSBJ7jGS2eL7z bGlnbjogbGVmdDsgdmVydGlj VVugSPtoU331BGBxqMhpIyYrAC luZyBEYXRlOiAgMTEvMjUvMjAy NDwvdGQ+MINbMNO3rChfJFBo aJIxPQpdZx0iqTaecNojJT4bIE GatjjjAOMzrO9oSJQeoGYqwFpo FO3cXVZkcnyyv787JiXfTAL4 LZCcmQHxT1JzmK7hMaXtBISjGC JdF7BgqAUlEVdlY090NDnwEnV7 PSCxtgCvR5TnCSOolFuwDhS0 k1P5Oh2Fo5EaktrzF3UheZVuHj TnXiiaDQc2G4VgXglulPB+PC90 EDSeVS50PTl9RZW8aDgwLPtk SKPyK6MrfU5wUiQaZGNlHQUfFo c+PHRhYmxlIHdpZHRoPScxMDAl RbMneZnhQI2kOa3nECXqDFSy mGbnsGOfLmGdb7mwDINsXJchUZ 2cmLagX9XhsHI6AVBvp4q9Ev60 R19dP7PuiVS+OGUsvFK3oBS1 qL5pNxJsIhR8INetO484OeGeiE IxZbzgy5pfa8wtfPy6OeR0BCPo gcUueEltLRD0k8XoLu12P98p IHdpZHRoPSIxNSUiIHZhbGlnbj 3itG4qXg5+RFEttIC2eQT4bT9c FmSrJhI4UOlhN980RoFsaBOx Xmhxd3fvf1xwpAn3VgHhKOGswy VagNwaQJK2d3BlUr91Q7HuhTke f4LhWws0xa88hMTic9O9fLP8 H2CjCQUlcsjnzLTnfPczKD0nGM NabnrqAOPmkX3iHUOiI6y5WcOl DcX5FNdbZ3DhdxX9CDVgkOFw TVXckPRHoB8bntnfy4plzggpMz QlCVLrITw1UPy9MLRhuHjjPyNl VNY7FhV0ONM0mCZhaR2uqHag ozvhiW9pClm+OTR9fYQsbMXXEO 1lOjwvdGQ+NTYqAYX5hToaMHwt ALDywP7pANLxA6f6FoHrEiS7 RVqcT4ZrtaO5ULLuvFMbKPHtzI QWfW3mgzwsb0mbatsiCoUxEAMk HCl4KMp0FWZgsLtwBaWgLIR9 FbC6WMS3uGAgkG1cmNsxasklaN 9wOyc+QdcfcDeaDCL3WBw7E4Ba Tav5ATUwnYsiME1joUFaDOce Qm7kuLvilAktFX1gXBKejjoyl4 16IaLkb7ruBVIqvNWeNQxrDJU0 X17dy9I4JQEzRHJnSCN8gCO3 zP4iwYgskybivYBppRwmxmQoqQ ciJPnpAYbzP924MROkyMklQgSo BAj2V3IvKkh3GOUavAgiQJ5m jIErPYceYz5ksRxlvXcjHF2yNW Uhzkyck005TxUxd8rtCEQcbIKc ULjjFEO9L05df4K3AAVuHHYa YHM1vLD3kP7roOshnwzlnLVdhS lvtkXymIjwRBheHWxlH007SZHa gCskVoQemKa6U9DrQjj5OHAt pUtpXE6kfBJuGOpfQw3sjZaxzZ kjSF4lYUDysmafs967IxFds7ps YDJmbNIgISgnBHB7I65ez8S9 KHNgEPTqIPN7zUS4yI7ihGtkbp ogbGVmdDsgdmVydGljYWwtYWxp G533TQLdgXgtDuEzoLsmgwEk KEeyAPk8W6FkCtsncET+PC90YW KoFH63eBIjpLStv4ianDv4CfGc OEZmJVO4cNzrURjwf1AbGCLu Q36ipGUly6V8VYRvrPsunZMgCc NqoZM3zX9cDEbvoimoc3dbrkxn Wverq6nudr11mO26I08kGUdr WQPtNQFiITJrFZDbmQivse8ojE 9wIi8+SWJxtRW3oHA8rL9hSJQa QfN4JCqnO570MlNgmTYtVnqb m8yjp5ufdJu7WaD4NVLgpbXqxD twUBK9v5JcWd19K78vLUggDWAw ICBkTLIwYGCouDygnb9zdF5d Ii8+KNOdoKV0qYL5uW9rOgPuSa X9HKsaX386YsHotZOzVggmA52q Y5ApjJG+FEYqJab3NHIskYmp FT9ssGTzVVzwRj6dISU7DzCoMf IgRItgR4PuRALemklljcjpaDO0 VAZzNSRuoO09Rp7rdCuiICSu fDHObR5sxlyoj5auvcouZuZvSH NiVQl1HIy3VAJqvXbyOmOrCZR1 UmU1MAL1vJRwdC2khEnzjjxa cQ4xG6MpFUTitldnIl58rL7tTp XhHrV1YOogIee+NgbST3FuDMGU VB2yC2yDUIeAYUkkuOA+PHRk SSV8yFmiNZzbZQLqmS1tPLUaT7 m6ZkZkCfR4HHplX4OiHSNgexwr Pq17sW3xEhHcBoG3KWocG2Yp tbE7ASQboVQiANuuRFQ7P30xi5 B4MMWiONTgBDG3aAT7hK7pqJuj bjogbGVmdDsgdmVydGljYWwt LVgaX676YSGffIlwQjZtExC7Gk I5RzF2H4MjHha4PIBkbYmqKN1o tUYvVWecCz0zlEemsXdsSH5p TAMjnwnzIUCymJ7nPLRrqNSkgI hiKX0zUGBanaesy295FcRvHCK0 YKXvfBPqD9BrpI4hYiZiUUAl JEIxE6CxgEAlJCpdR506NBfpZz H6FBSpcaOcZ3LeXADfqQmfQaV5 g7P3Yw55FbFTACCbepapuIU+ XSObSOH3cGzzSFivSOSpbS0hMQ UrF6v8OhIiUqD4ZGzkH2BdEFHz ynefGc92jZ3tHuFbWwF6JMmi A0QcziL3SEKnlTGxZHwqUZG9W8 3wz2D3JUJcHYLmIPT2wXB2xT7u bGlnbjogbGVmdDsgdmVydGlj YZcyODvcH717YTBooYutNz8RJX C2N5SzKqo5YOSgySzlOI4sgTVd GTkpZq6pbSgshXkrXK6mFVMp asadUOBumW6fADMqxNLtmZbwOW 7fCPSnkvbij532LgAfQSG7IZPo cPYdL2MyfC0rSzXyQEMsFURn J6GctXYmFIbmT469PIelLwP1KQ FzhjSaW5CyAKWlkCmlOwT0a8X1 Cs1CHZG8nrBvogyvQ4U8eIL5 aWVudDwvdGQ+SG01dg05D1YkUo zpCwb1XDKhZMM6gFE9bJ4dUKMr CLttj5C7gIZ1A8TqopQrso5p b5qvDOZfAGduQ16uuUMss1X8XQ UpfHK8EYGiyJjkNyVbhF07Bhz+ JUHebNlgc4AbJuulj4gsu4my vLr6EsSfBOHxwsZwoHgoISZ6k7 WsAs00I18oLWujSZHyGTSkDVDl YXJjeUfojc4ynP9aLf8+PGNv vSD1kXV5iY0qBlLjOrJ6WVzpI0 81RuGixXLbIjmvh1biv5dcsWn1 WkTkSDPateCunKrjVJZ8o4Ok Kt82Z2UprXrfx4WxAbx1kh24iC Fxz9L3vET6Y7WbUEPkoqtjyRUd hVgvAS4lYSMyarujOBYxfD8n QJGeH3q0ErOuNrL1NSlhY4Cwau J2BPZncPHeBYJjbYQPwR0muout e0rzpoxsWxCcRVCyOSj0NUc7 IHVyzFgcCtAjBHB1DkO3CMN6eM GfkE6ruPyogbeoiF9aUoy+UGh5 i5efgTDeVY9wpZC7EG68NW59 mMLlh1E2fTR3J2YfTHKzyszqsl ktxKC5YYRaOJHuiY36Sw8omUjw Zx0uXCAzYIR9JDZirQIiV1Qn jQ9kTpBkMZWuUKBqE0NhaCHtCY niJ290HYowDvB4XZGoxhOxZ7Ai EGQomYakReM4p7D5Cd1WHP16 LC82MO24oBAki4J0gYS0X1SkHM BzhuumosqupJL0OYRpVOTlcN15 Wt5wcFcuDr3wHGVzMZA5RRJd jVOxN5QiuP3xXxDaYAEdPOLpL0 PviEOjWSmjY139BWplPkF9MJDq ytFzP5KxDNEghWbxKaB5r7D8 Ex6SFc60IZ51MF56sUBzd2D2bW D8K9MjFCUwvwxagbyrgMY0PTXi MAOqcP01Ht2zjIuzLa4eCZUh KMS4SYQxqBThP9TeyD5qUeDlMG IzKGFeY8MtaUMeGMcfL726FUsh KcN2TDGpkpZiA0CiBUUsnOvw FdR4u2M2Hd6ZDHujpap5T8KbIl wvdHI+PM97OFFbPL96bVWxcUJk z5vbaRi1FhQiRVTbJDL8mIak PSd (more content not included)... [facility] Provider Orderson 02-11-2024 Provider Orders [id number] - Other Lab Results [id number]#[id number] [facility] Rad - Other Radiology Report on 02-04-2024 Rad - Other Radiology Report [id number]#[id number] [facility] XR hip RT min 2V(w/wo pelvis )*on 09-15-2023 XR hip RT min 2V(w/wo pelvis)* [facility] [address] [place] [address] XRay Report Signed Patient: Lyly Quinn MR#: [id number] : 1965 Acct:[id number] Age/Sex: 58 / M ADM Date: 09/15/23 Loc: [facility] Room: Type: [facility] CLI Attending Dr: Charles Claros MD [...] Terrence Basurto M.D.09/15/2023 3:16 PM Dictation Location: [place] [address] Transcribed By: [facility] 09/15/23 1516 Dictated By: Terrence Basurto II, MD 09/15/23 1515 Signed By: 09/15/23 1516 Normal [facility] XR lumbar spine AP/LAT/FLX/E XTon 09-15-2023 XR lumbar spine AP/LAT/FLX/EXT [facility] [address] [place] [address] XRay Report Signed Patient: Lyly Quinn MR#: [id number] : 1965 Acct:[id number] Age/Sex: 58 / M ADM Date: 09/15/23 Loc: [facility] Room: Type: [facility] CLI Attending Dr: Charles Claros MD [...] Terrence Basurto M.D.09/15/2023 3:19 PM Dictation Location: [place] [address] Transcribed By: [facility] 09/15/23 1519 Dictated By: Terrence Basurto II, MD 09/15/23 1516 Signed By: 09/15/23 1519 Normal [facility] NR MRI L-SPINE WOon 05-12-19 23 NR MRI L-SPINE WO Patient Name: LYLY QUINN STUDY: MRI L-SPINE WO; 05/12/2022 8:35 am INDICATION: acute right foot drop, previous surgery, had MRI 2 weeks ago with insufficient metal reduction unable to assess junctional levels M96.1: Lumbar postlaminectomy syndrome M21.371: Right foot drop. COMPARISON: Outside hospital MRI L-spine dated 04/30/2022 ACCESSION NUMBER(S): [id number] ORDERING CLINICIAN: BEE BLACKMON TECHNIQUE: Sagittal T1, [...] Alvarado. Electronically signed by: DILMA VERA MD [facility] MRI Lumbar Spine w/oon 04-30 [...] discussed. Report reported and signed by Carlos Yesy on 05/01/2022 0917 Normal [facility] [employer] Tender Established Visit (Orthopaed ic Surgery)on 04-27-2022 Established [...] is going to do this in the [facility], we will have them push the results [...] 01/07/2021 10:40:28 AM Current Meds Medication NameInstruction Glffpprspl-SNNM-Angmmxep 50-300-40 MG Oral CapsuleTAKE 1 CAPSULE BY [...] BASO # 0.0 103/ul Normal 0.0-0.1 [facility] Comment on above: Performed By: #### C #### [facility] [address] [place] [address] Dr. Devonte Rivas Basophils/100 WBC (Bld) 0.4 % Normal 0.2-2.0 [facility] Comment on above: Performed By: #### C BC #### [facility] [address] [place] [address] Dr. Devonte Rivas EO # 0.1 103/ul Normal 0.0-0.7 [facility] Comment on above: Performed By: #### C BC #### [facility] [address] [place] [address] Dr. Devonte Rivas Eosinophils/100 WBC (Bld) 0.9 % Normal 0.9-7.0 [facility] Comment on above: Performed By: #### C BC #### [facility] [address] [place] [address] Dr. Devonte Rivas Erythrocyte distribution width (RBC) [Ratio] 12.4 % Normal 11.0-15.0 [facility] Comment on above: Performed By: #### C BC #### [facility] [address] [place] [address] Dr. Devonte Rivas Hematocrit (Bld) [Volume fraction] 42.4 % Normal 42.0-54.0 [facility] Comment on above: Performed By: #### C BC #### [facility] [address] [place] [address] Dr. Devonte Rivas Hemoglobin (Bld) [Mass/Vol] 14.8 g/dL Normal 14.0-18.0 [facility] Comment on above: Performed By: #### C BC #### [facility] [address] [place] [address] Dr. Devonte Rivas IG # 0.03 10e3/ul Normal 0.00-0.03 [facility] Comment on above: Performed By: #### C BC #### [facility] [address] [place] [address] Dr. Devonte Rivas IG % 0.6 % Critically high 0.0-0.5 [facility] Comment on above: Performed By: #### C BC #### [facility] [address] [address] [address] Devonte Rivas LYMPH # 1.7 103/ul Normal 1.2-3.8 [facility] Comment on above: Performed By: #### C BC #### [facility] [address] [address] [address] Devonte Rivas Lymphocytes/100 WBC (Bld) 31.6 % Normal 20.5-60.0 [facility] Comment on above: Performed By: #### C BC #### [facility] [address] [place] [address] Dr. Devonte Rivas MANUAL DIFF REQ NO Normal [facility] Comment on above: Performed By: #### C BC #### [facility] [address] [place] [address] Dr. Devonte Rivas MCH (RBC) [Entitic mass] 31.3 pg Normal 25.9-34.0 [facility] Comment on above: Performed By: #### C BC #### [facility] [address] [place] [address] Dr. Devonte Rivas MCHC (RBC) [Mass/Vol] 34.9 g/dL Normal 29.9-35.2 [facility] Comment on above: Performed By: #### C BC #### [facility] [address] [place] [address] Dr. Devonte Rivas MCV (RBC) [Entitic vol] 89.6 fL Normal 80.0-94.0 [facility] Comment on above: Performed By: #### C BC #### [facility] [address] [place] [address] Dr. Devonte Rivas MONO # 0.9 103/ul Critically high 0.3-0.8 [facility] Comment on above: Performed By: #### C BC #### [facility] [address] [place] [address] Dr. Devonte Rivas Monocytes/100 WBC (Bld) 15.6 % Critically high 1.7-12.0 [facility] Comment on above: Performed By: #### C BC #### [facility] [address] [place] [address] Dr. Devonte Rivas NEUT # 2.8 103/ul Normal 1.4-6.5 [facility] Comment on above: Performed By: #### C BC #### [facility] [address] [place] [address] Dr. Devonte Rivas Neutrophils/100 WBC (Bld) 50.9 % Normal 43.0-75.0 [facility] Comment on above: Performed By: #### C BC #### [facility] [address] [place] [address] Dr. Devonte Rivas Platelet mean volume (Bld) [Entitic vol] 9.4 fL Critically low 9.5-13.5 [facility] Comment on above: Performed By: #### C BC #### [facility] [address] [place] [address] Dr. Devonte Rivas PLT 194 103/ul Normal 150-450 [facility] Comment on above: Performed By: #### C BC #### [facility] [address] [place] [address] Dr. Devonte Rivas RBC 4.73 106/ul Normal 4.70-6.10 [facility] Comment on above: Performed By: #### C BC #### [facility] [address] [place] [address] Dr. Devonte Rivas WBC 5.4 103/ul Normal 4.0-11.0 [facility] Comment on above: Performed By: #### C BC #### [facility] [address] [place] [address] Dr. Devonte Rivas CTA CHEST WO W [...] DANIEL BENITEZ Date: 2022-04-14 10:29 Normal [facility] Covid-19 PCR (CVDTBH)on 03-20 SARS-CoV-2 (COVID-19) RNA LEATHA+probe Ql (Unsp spec) Detected Critically abnormal NOT DETECTED [facility] Comment on above: Result Comment: This test is not yet approved or cleared by the [place] FDA. When there are no FDA-approved or cleared tests available, and other criteria are met, FDA can make tests available under an emergency access mechanism called an Emergency Use Authorization (EUA). The EUA for this test is supported by the Warehouse Laborer of Health and Human Service's declaration that [...] used). Performed By: #### C VDTBH #### [facility] [address] [place] [address] Dr. Devonte Rivas INFLUENZA A AND B AGon 04-14 INFLUANE SEE BELOW Normal [facility] Comment on above: Result Comment: Nega tive for Flu A protein angiten. Infection due to Flu A cannot be ruled out. Flu A angiten in the sample may be below the detection limit of the test. Performed By: #### I NFLUAB #### [facility] [address] [place] [address] Dr. Devonte Rivas INFLUBNEG SEE BELOW Normal [facility] Comment on above: Result Comment: Nega tive for Flu B protein antigen. Infection due to Flu B cannot be ruled out. Flu B antigen in the sample may be below the detection limit of the test. Performed By: #### I NFLUAB #### [facility] [address] [place] [address] Dr. Devonte Rivas INFLUENZA A AG Negative Normal NEGATIVE SEE COMMENT [facility] Comment on above: Performed By: #### I NFLUAB #### [facility] [address] [place] [address] Dr. Devonte Rivas INFLUENZA B AG Negative Normal NEGATIVE SEE COMMENT [facility] Comment on above: Performed By: #### I NFLUAB #### [facility] [address] [place] [address] Dr. Devonte Rivas INTERNAL CONTROLS Within Normal Limits Normal Wi thin Normal Limits [facility] Comment on above: Performed By: #### I NFLUAB #### [facility] [address] [place] [address] Dr. Devonte Rivas PROF CHEM 8 (BAS METB)on Anion gap [Moles/Vol] 12.0 mmol/L Normal Th [facility] Comment on above: Performed By: #### H CECELIA, BMP #### [facility] [address] [place] [address] Dr. Devonte Rivas Calcium [Mass/Vol] 9.2 mg/dL Normal 8.5-10.1 [facility] Comment on above: Performed By: #### H WINIFREDPN, BMP #### [facility] [address] [place] [address] Dr. Devonte Rivas Chloride [Moles/Vol] 100 mmol/L Normal 98-107 [facility] Comment on above: Performed By: #### H WINIFREDPN, BMP #### [facility] [address] [place] [address] Dr. Devonte Rivas CO2 [Moles/Vol] 26.2 mmol/L Normal 21.0-32.0 [facility] Comment on above: Performed By: #### H WINIFREDPN, BMP #### [facility] [address] [place] [address] Dr. Devonte Rivas Creatinine [Mass/Vol] 0.99 mg/dL Normal 0.70-1.30 [facility] Comment on above: Performed By: #### H STROPN, BMP #### [facility] [address] [place] [address] Dr. Devonte Rivas EGFR-AF TURKS AND CAICOS ISLANDER >60 Normal >=60 [facility] Comment on above: Performed By: #### H STROPN, BMP #### [facility] [address] [place] [address] Dr. Devonte Rivas EGFR-NON AF TURKS AND CAICOS ISLANDER >60 Normal >=60 [facility] Comment on above: Performed By: #### H STROPN, BMP #### [facility] [address] [place] [address] Dr. Devonte Rivas Glucose [Mass/Vol] 163 mg/dL Critically high 74-106 T [facility] Comment on above: Performed By: #### H STROPN, BMP #### [facility] [address] [place] [address] Dr. Devonte Rivas Potassium [Moles/Vol] 4.2 mmol/L Normal 3.5-5.1 [facility] Comment on above: Performed By: #### H STROPN, BMP #### [facility] [address] [place] [address] Dr. Devonte Rivas Sodium [Moles/Vol] 134 mmol/L Critically low 136-145 Th [facility] Comment on above: Performed By: #### H STROPN, BMP #### [facility] [address] [place] [address] Dr. Devonte Rivas Urea nitrogen [Mass/Vol] 11.0 mg/dL Normal 7.0-18.0 [facility] Comment on above: Performed By: #### H STROPN, BMP #### [facility] [address] [place] [address] Dr. Devonte Rivas Urea nitrogen/Creatinine [Mass ratio] 11.1 mg/mg Normal [facility] Comment on above: Performed By: #### H STROPN, BMP #### [facility] [address] [place] [address] Dr. Devonte Rivas TROPONIN, HIGH SENSITIVITYon 12-27-2022 HSTROP <4.0 Normal 4.0-76.1 [facility] Comment on above: Result Comment: CUT- OFF POINTS HAVE BEEN ESTABLISHED BASED ON THE FOURTH UNIVERSAL DEFINITIONS OF MYOCARDIAL INFARCTION. THE UPPER REFERENCE LIMIT (URL) OF TROPONIN, DEFINED THE 99TH PERCENTILE OF cTnI DISTRIBUTION IN A REFERENCE POPULATION, HAS BEEN CONFIRMED THE DECISION THRESHOLD FOR WI DIAGNOSIS. Performed By: #### H CECELIA, BMP #### [facility] [address] [place], [place] [address] Dr. Devonte Rivas XR CHEST 1 Von 04-14-2022 XR CHEST 1 V EXAM: Chest x-ray HISTORY: . SHORTNESS OF BREATH . COMPARISON: 10/26/2010 TECHNIQUE: Frontal and lateral chest. FINDINGS: Heart and vascularity are unremarkable. Lungs are free of focal infiltrates. EKG leads overlie the chest. Impression: No acute heart or lung disease identified. 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 Normal [facility] MRI Lumbar Spine w/oon 09-05 MRI Lumbar [...] by Chandler Tomlinson on 09/08/2021 1127 Normal [facility] [employer] T[employer] CT Abdomen/Pelvis w/ Contras ton 08-05-2021 CT [...] by Chandler Tomlinson on 08/06/2021 0906 Normal [facility] [employer] Established Visit (Orthopaed ic Surgery)on 07-28-2021 Established Visit (Orthopaedic Surgery) Diagnoses/Problems Assessed Lumbar postlaminectomy syndrome (722.83) (M96.1) Orders Lumbar postlaminectomy syndrome MRI L Spine without Contrast; Status:Hold For - Scheduling,Retrospective Authorization; Requested for:[id number]; Radiologist to Determine Optimal Study : Y Does the patient have a Cochlear Implant, Pacemaker, Defibrilator, Pacing Wire, Brain Aneurysm Clip, Implanted Nerve or Bone Graft Simulator, Implanted Breast Tissue School Community Relations Coordinator, Glucose Monitor, or Neulasta Device? 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 Normal [facility] Nutrition-[facility]ulton 05-06-2021 Nutrition-Adult Medical Diagnosis Assessed Class [...] fatty acids and low saturated fat content. [place], mackerel, albacore tuna, sardines, mills and franco [...] obtained from LYLY BERNABE on this date, 05/06/2021 08:00 AM , [...] occasionally snack (more content not included)... Normal [facility] No Panel Informationon 04-23 3638 1 [facility] [place] [facility] Work Phone: [phone] [facility] [place] [facility] Work Phone: [phone] [facility] [place] [facility] Work Phone: [phone] [facility] [place] [facility] Work Phone: Comment on above: Age: 56Height: 73 in Sex: MLevel of Activity: Sedentary (little or no exercise)Weight: 292 lb 2138 1 [facility] [place] [facility] Work Phone: [phone] [facility] [place] [facility] Work Phone: Tobacco Screening.on 022 Fall risk assessment a) No falls within the last year [facility] [place] [facility] Work Phone: Tobacco use status CPHS b) No [facility] [place] [facility] Work Phone: Radiologyon 03-10-2021 XR Lumbar spine AP and Lateral Please click on the link to view the study images Normal -Orthopae dics-[facility] Work Phone: SPINE, LUMBOSACRAL; 2 OR 3 V IEWSon 03-10-2021 SPINE, LUMBOSACRAL; 2 OR 3 VIEWS Patient Name: LYLY QUINN STUDY: SPINE, LUMBOSACRAL; 2 OR 3 VIEWS; ; 03/10/2021 11:16 am INDICATION: pain M96.1: Lumbar postlaminectomy syndrome M48.062: Spinal stenosis of lumbar region with neurogenic claudication. COMPARISON: 12/09/2020. ACCESSION NUMBER(S): [id number] ORDERING CLINICIAN: BEE BLACKMON FINDINGS: Lumbosacral spine [...] Electronically signed by: JANET VILLARREAL MD Normal [facility] Radiology[facility] 12-09-2020 XR Lumbar spine AP and Lateral Please click on the link to view the study images Normal -Orthopae dics-[facility] Work Phone: SPINE, LUMBOSACRAL; 2 OR 3 V IEWSon 12-09-2020 SPINE, LUMBOSACRAL; 2 OR 3 VIEWS Patient Name: LYLY QUINN STUDY: Lumbar Spine, 2 views. INDICATION: low back pain. COMPARISON: Outside hospital lumbar spine radiographs 08/29/2020 ACCESSION NUMBER(S): [id number] ORDERING CLINICIAN: BEE BLACKMON FINDINGS: Redemonstration of [...] Electronically signed by: WILLIAMS GUZMAN MD Normal [facility] BASIC METABOLIC PANELon 11-17 ANION GAP Canceled Normal [facility] Comment on above: Order Comment: TEST BASIC METABOLIC PANEL WAS CANCELLED, 12/01/2020 18:56 NO SPECIMEN RECEIVED IN LAB. Performed By: #### B MP #### [facility] [address] [place] [address] BICARBONATE Canceled Normal [facility] Comment on above: Order Comment: TEST BASIC METABOLIC PANEL WAS CANCELLED, 12/01/2020 18:56 NO SPECIMEN RECEIVED IN LAB. Performed By: #### B MP #### [facility] [address] [place] [address] CALCIUM Canceled Normal [facility] Comment on above: Order Comment: TEST BASIC METABOLIC PANEL WAS CANCELLED, 12/01/2020 18:56 NO SPECIMEN RECEIVED IN LAB. Performed By: #### B MP #### [facility] [address] [place] [address] CHLORIDE Canceled Normal [facility] Comment on above: Order Comment: TEST BASIC METABOLIC PANEL WAS CANCELLED, 12/01/2020 18:56 NO SPECIMEN RECEIVED IN LAB. Performed By: #### B MP #### [facility] [address] [place] [address] CREATININE Canceled Normal [facility] Comment on above: Order Comment: TEST BASIC METABOLIC PANEL WAS CANCELLED, 12/01/2020 18:56 NO SPECIMEN RECEIVED IN LAB. Performed By: #### B MP #### [facility] [address] [place] [address] GFR- AM. Canceled Normal [facility] Comment on above: Order Comment: TEST BASIC METABOLIC PANEL WAS CANCELLED, 12/01/2020 18:56 NO SPECIMEN RECEIVED IN LAB. Result Comment: CALC ULATIONS OF ESTIMATED GFR ARE PERFORMED USING THE MDRD STUDY EQUATION FOR THE IDMS-TRACEABLE CREATININE METHODS. CLIN CHEM 2007;53:766-72 Performed By: #### B MP #### [facility] [address] [place] [address] GFR-NON AM. Canceled Normal [facility] Comment on above: Order Comment: TEST BASIC METABOLIC PANEL WAS CANCELLED, 12/01/2020 18:56 NO SPECIMEN RECEIVED IN LAB. Performed By: #### B MP #### [facility] [address] [place] [address] GLUCOSE Canceled Normal [facility] Comment on above: Order Comment: TEST BASIC METABOLIC PANEL WAS CANCELLED, 12/01/2020 18:56 NO SPECIMEN RECEIVED IN LAB. Performed By: #### B MP #### [facility] [address] [place] [address] POTASSIUM Canceled Normal [facility] Comment on above: Order Comment: TEST BASIC METABOLIC PANEL WAS CANCELLED, 12/01/2020 18:56 NO SPECIMEN RECEIVED IN LAB. Performed By: #### B MP #### [facility] [address] [place] [address] SODIUM Canceled Normal [facility] Comment on above: Order Comment: TEST BASIC METABOLIC PANEL WAS CANCELLED, 12/01/2020 18:56 NO SPECIMEN RECEIVED IN LAB. Performed By: #### B MP #### [facility] [address] [place] [address] UREA NITROGEN Canceled Normal [facility] Comment on above: Order Comment: TEST BASIC METABOLIC PANEL WAS CANCELLED, 12/01/2020 18:56 NO SPECIMEN RECEIVED IN LAB. Performed By: #### B MP #### [facility] [address] [place] [address] CBCon 12-01-2020 HCT Canceled Normal [facility] Comment on above: Order Comment: TEST CBC WAS CANCELLED, 12/01/2020 18:56 NO SPECIMEN RECEIVED IN LAB. Performed By: #### C BC #### [facility] [address] [place] [address] HGB Canceled Normal [facility] Comment on above: Order Comment: TEST CBC WAS CANCELLED, 12/01/2020 18:56 NO SPECIMEN RECEIVED IN LAB. Performed By: #### C BC #### [facility] [address] [place] [address] MCHC Canceled Normal [facility] Comment on above: Order Comment: TEST CBC WAS CANCELLED, 12/01/2020 18:56 NO SPECIMEN RECEIVED IN LAB. Performed By: #### C BC #### [facility] [address] [place] [address] MCV Canceled Normal [facility] Comment on above: Order Comment: TEST CBC WAS CANCELLED, 12/01/2020 18:56 NO SPECIMEN RECEIVED IN LAB. Performed By: #### C BC #### [facility] [address] [place] [address] NUCLEATED RBC Canceled Normal [facility] Comment on above: Order Comment: TEST CBC WAS CANCELLED, 12/01/2020 18:56 NO SPECIMEN RECEIVED IN LAB. Performed By: #### C BC #### [facility] [address] [place] [address] PLT Canceled Normal [facility] Comment on above: Order Comment: TEST CBC WAS CANCELLED, 12/01/2020 18:56 NO SPECIMEN RECEIVED IN LAB. Performed By: #### C BC #### [facility] [address] [place] [address] RBC Canceled Normal [facility] Comment on above: Order Comment: TEST CBC WAS CANCELLED, 12/01/2020 18:56 NO SPECIMEN RECEIVED IN LAB. Performed By: #### C BC #### [facility] [address] [place] [address] RDW-CV Canceled Normal [facility] Comment on above: Order Comment: TEST CBC WAS CANCELLED, 12/01/2020 18:56 NO SPECIMEN RECEIVED IN LAB. Performed By: #### C BC #### [facility] [address] [place] [address] WBC Canceled Normal [facility] Comment on above: Order Comment: TEST CBC WAS CANCELLED, 12/01/2020 18:56 NO SPECIMEN RECEIVED IN LAB. Performed By: #### C BC #### [facility] [address] [place] [address] BASIC METABOLIC PANELon 11-17 ANION GAP Canceled Normal [facility] Comment on above: Order Comment: TEST BASIC METABOLIC PANEL WAS CANCELLED, 11/29/2020 10:53 NO SPECIMENRECEIVED IN LAB. Performed By: #### B MP ####[id number] [place] [address] BICARBONATE Canceled Normal [facility] Comment on above: Order Comment: TEST BASIC METABOLIC PANEL WAS CANCELLED, 11/29/2020 10:53 NO SPECIMENRECEIVED IN LAB. Performed By: #### B MP ####[id number] [place] [address] CALCIUM Canceled Normal [facility] Comment on above: Order Comment: TEST BASIC METABOLIC PANEL WAS CANCELLED, 11/29/2020 10:53 NO SPECIMENRECEIVED IN LAB. Performed By: #### B MP ####[id number] [place] [address] CHLORIDE Canceled Normal [facility] Comment on above: Order Comment: TEST BASIC METABOLIC PANEL WAS CANCELLED, 11/29/2020 10:53 NO SPECIMENRECEIVED IN LAB. Performed By: #### B MP ####[id number] [place] [address] CREATININE Canceled Normal [facility] Comment on above: Order Comment: TEST BASIC METABOLIC PANEL WAS CANCELLED, 11/29/2020 10:53 NO SPECIMENRECEIVED IN LAB. Performed By: #### B MP ####[id number] [place] [address] GFR- AM. Canceled Normal [facility] Comment on above: Order Comment: TEST BASIC METABOLIC PANEL WAS CANCELLED, 11/29/2020 10:53 NO SPECIMENRECEIVED IN LAB. Result Comment: CALC ULATIONS OF ESTIMATED GFR ARE PERFORMED USING THE MDRD STUDY EQUATION FOR THE IDMS-TRACEABLE CREATININE METHODS. CLIN CHEM 2007;53:766-72 Performed By: #### B MP ####[id number] [place] [address] GFR-NON AM. Canceled Normal [facility] Comment on above: Order Comment: TEST BASIC METABOLIC PANEL WAS CANCELLED, 11/29/2020 10:53 NO SPECIMENRECEIVED IN LAB. Performed By: #### B MP ####[id number] [place] [address] GLUCOSE Canceled Normal [facility] Comment on above: Order Comment: TEST BASIC METABOLIC PANEL WAS CANCELLED, 11/29/2020 10:53 NO SPECIMENRECEIVED IN LAB. Performed By: #### B MP ####[id number] [place] [address] POTASSIUM Canceled Normal [facility] Comment on above: Order Comment: TEST BASIC METABOLIC PANEL WAS CANCELLED, 11/29/2020 10:53 NO SPECIMENRECEIVED IN LAB. Performed By: #### B MP ####[id number] [place] [address] SODIUM Canceled Normal [facility] Comment on above: Order Comment: TEST BASIC METABOLIC PANEL WAS CANCELLED, 11/29/2020 10:53 NO SPECIMENRECEIVED IN LAB. Performed By: #### B MP ####[id number] [place] [address] UREA NITROGEN Canceled Normal [facility] Comment on above: Order Comment: TEST BASIC METABOLIC PANEL WAS CANCELLED, 11/29/2020 10:53 NO SPECIMENRECEIVED IN LAB. Performed By: #### B MP ####[id number] [place] [address] CBCon 11-29-2020 HCT Canceled Normal [facility] Comment on above: Order Comment: TEST CBC WAS CANCELLED, 11/29/2020 10:53 NO SPECIMEN RECEIVED IN LAB. Performed By: #### C BC ####[id number] [place] [address] HGB Canceled Normal [facility] Comment on above: Order Comment: TEST CBC WAS CANCELLED, 11/29/2020 10:53 NO SPECIMEN RECEIVED IN LAB. Performed By: #### C BC ####[id number] [place] [address] MCHC Canceled Normal [facility] Comment on above: Order Comment: TEST CBC WAS CANCELLED, 11/29/2020 10:53 NO SPECIMEN RECEIVED IN LAB. Performed By: #### C BC ####[id number] [place] [address] MCV Canceled Normal [facility] Comment on above: Order Comment: TEST CBC WAS CANCELLED, 11/29/2020 10:53 NO SPECIMEN RECEIVED IN LAB. Performed By: #### C BC ####[id number] [place] [address] NUCLEATED RBC Canceled Normal [facility] Comment on above: Order Comment: TEST CBC WAS CANCELLED, 11/29/2020 10:53 NO SPECIMEN RECEIVED IN LAB. Performed By: #### C BC ####[id number] [place] [address] PLT Canceled Normal [facility] Comment on above: Order Comment: TEST CBC WAS CANCELLED, 11/29/2020 10:53 NO SPECIMEN RECEIVED IN LAB. Performed By: #### C BC ####[id number] [place] [address] RBC Canceled Normal [facility] Comment on above: Order Comment: TEST CBC WAS CANCELLED, 11/29/2020 10:53 NO SPECIMEN RECEIVED IN LAB. Performed By: #### C BC ####[id number] [place] [address] RDW-CV Canceled Normal [facility] Comment on above: Order Comment: TEST CBC WAS CANCELLED, 11/29/2020 10:53 NO SPECIMEN RECEIVED IN LAB. Performed By: #### C BC ####[id number] [place] [address] WBC Canceled Normal [facility] Comment on above: Order Comment: TEST CBC WAS CANCELLED, 11/29/2020 10:53 NO SPECIMEN RECEIVED IN LAB. Performed By: #### C BC ####[id number] [place] [address] BASIC METABOLIC PANELon 11-17 Anion gap [Moles/Vol] 15 mmol/L Normal 10 - 20 [facility] Comment on above: Performed By: #### B MP #### [facility] [address] [place] [address] Calcium [Mass/Vol] 9.7 mg/dL Normal 8.6 - 10.6 [facility] Comment on above: Performed By: #### B MP #### [facility] [address] [place] [address] Chloride [Moles/Vol] 99 mmol/L Normal 98 - 107 [facility] Comment on above: Performed By: #### B MP #### [facility] [address] [place] [address] Creatinine [Mass/Vol] 0.81 mg/dL Normal 0.50 - 1.30 [facility] Comment on above: Performed By: #### B MP #### [facility] [address] [place] [address] GFR- AM. >60 Normal >60 [facility] Comment on above: Result Comment: CALC ULATIONS OF ESTIMATED GFR ARE PERFORMED USING THE MDRD STUDY EQUATION FOR THE IDMS-TRACEABLE CREATININE METHODS. CLIN CHEM 2007;53:766-72 Performed By: #### B MP #### [facility] [address] [place] [address] GFR-NON AM. >60 Normal >60 [facility] Comment on above: Performed By: #### B MP #### [facility] [address] [place] [address] Glucose [Mass/Vol] 188 mg/dL High 74 - 99 [facility] Comment on above: Performed By: #### B MP #### [facility] [address] [place] [address] HCO3 (Bld) [Moles/Vol] 26 mmol/L Normal 21 - 32 [facility] Comment on above: Performed By: #### B MP #### [facility] [address] [place] [address] Potassium [Moles/Vol] 5.1 mmol/L Normal 3.5 - 5.3 [facility] Comment on above: Performed By: #### B MP #### [facility] [address] [place] [address] Sodium [Moles/Vol] 135 mmol/L Low 136 - 145 [facility] Comment on above: Performed By: #### B MP #### [facility] [address] [place] [address] Urea nitrogen [Mass/Vol] 16 mg/dL Normal 6 - 23 [facility] Comment on above: Performed By: #### B MP #### [facility] [address] [place] [address] CBCon 11-27-2020 Erythrocyte distribution width (RBC) [Ratio] 12.8 % Normal 11.5 - 14.5 [facility] Comment on above: Performed By: #### C BC #### [facility] [address] [place] [address] Hematocrit (Bld) [Volume fraction] 43.9 % Normal 41.0 - 52.0 [facility] Comment on above: Performed By: #### C BC #### [facility] [address] [place] [address] Hemoglobin (Bld) [Mass/Vol] 14.2 g/dL Normal 13.5 - 17.5 [facility] Comment on above: Performed By: #### C BC #### [facility] [address] [place] [address] MCHC (RBC) [Mass/Vol] 32.3 g/dL Normal 32.0 - 36.0 [facility] Comment on above: Performed By: #### C BC #### [facility] [address] [place] [address] MCV (RBC) [Entitic vol] 94 fL Normal 80 - 100 [facility] Comment on above: Performed By: #### C BC #### [facility] [address] [place] [address] NUCLEATED RBC 0.0 /100 WBC Normal 0.0-0.0 [facility] Comment on above: Performed By: #### C BC #### [facility] [address] [place] [address] Platelets (Bld) [#/Vol] 237 10*3/uL Normal 150 - 450 [facility] Comment on above: Performed By: #### C BC #### [facility] [address] [place] [address] RBC 4.65 x10E12/L Normal 4.50 - 5.90 [facility] Comment on above: Performed By: #### C BC #### [facility] [address] [place] [address] WBC (Bld) [#/Vol] 8.5 10*3/uL Normal 4.4 - 11.3 [facility] Comment on above: Performed By: #### C BC #### [facility] [address] [place] [address] Daily Progress Note-Orthopae thanh 11-27-2020 Daily Progress [...] advance as tolerated. Bowel regimen - dc PROFESSIONAL ARCHITECT, POPM starting POD1. Scheduled tylenol. Robaxin. Continue [...] Kevin Marshall MD, PGY-2 Orthopedic Spine Team [id number] Available on [facility] Orthopedic Spine Team Kevin Marshall, PGY-2 ([id number]) Amrit Long PGY-3 ([id number]) Lambert Suarez PGY-4 ([id number]) Please call avionics engineer resident ([phone]) nights after 6pm and weekends Attestation: Note [...] Updated: 11-Dec-2020 15:25 by Bee Blackmon) Normal [facility] Laboratory - Chemistry and C hemistry - challengeon 11-27-2020 Anion gap [Moles/Vol] 15 mmol/L 10 - 20 MG- Orthopae dics-Westla ke Work Phone: [phone] Calcium [Mass/Vol] 9.7 mg/dL 8.6 - [...] (Bld) [Mass/Vol] 14.2 g/dL See Below MG-Orthopae Alexander edmonds Work Phone: Comment on above: Reference Range: 13. 5 - 17.5 MCHC (RBC) [Mass/Vol] 32.3 g/dL See Below MG- Orthopae Alexander edmonds Work Phone: Comment on above: Reference Range: 32. 0 - 36.0 MCV (RBC) [Entitic vol] 94 fL 80 - 100 [facility]Orthopae Alexander edmonds Work Phone: Platelets (Bld) [#/Vol] 237 10*3/uL 150 - 450 MG-Orthopae gio-Val edmonds Work Phone: RBC (Bld) [#/Vol] 4.65 {x10E12/L} See Below MG -Orthopae Alexander edmonds Work Phone: Comment on above: Reference Range: 4.5 0 - 5.90 WBC (Bld) [#/Vol] 8.5 10*3/uL 4.4 - 11.3 MG-Ort fernando edmonds Work Phone: No Panel Informationon 11-27 >60 >60 MG-Balta edmonds Work Phone: Comment on above: CALCULATIONS OF LUCHO MATED GFR ARE PERFORMED USING THE MDRD STUDY EQUATION FOR THE IDMS-TRACEABLE CREATININE METHODS. CLIN CHEM 2007;53:766-72 0.0 {/100_WBC} 0.0-0.0 MG-Orthopa e Alexander edmonds Work Phone: Daily Progress Note-Balta gutierresson [...] diet, advance as tolerated. Bowel regimen - PROFESSIONAL ARCHITECT, will attempt to wean POD#1. Scheduled tylenol. [...] Lambert Suarez MD Orthopedic Surgery PGY-4 Pager: [phone] Please page consult resident ([phone]) from 6pm-8am and on weekends. Attestation: Note [...] the note. I personally evaluated the patient [id number] Electronic Signatures: Bee Blackmon) (Signed 11-Dec-2020 15:23) Authored: Note Completion Co-Signer: Service, Subjective Data, Objective Data, Assessment and Plan, Note Completion Lambert Suarez (Resident)) (Signed 26-Nov-2020 14:32) Authored: Service, Subjective Data, Objective Data, Assessment and Plan, Note Completion Last Updated: 11-Dec-2020 15:23 by Bee Blackmon) Normal [facility] Discharge [id number] 021 Discharge Profile2 Discharge Orders: Significant Events: PE: Past Medical History Deep Vein Thrombosis (DVT): Past Medical History GERD: Past Medical History hypertension: Past Medical History SARS-CoV-2 (COVID-19): Immunizations, 22-Jul-2020, Genophen[employer] COVID-19 Vacc 30 mcg/0.3ml IM Suspension SARS-CoV-2 (COVID-19): Immunizations, 01-Jul-2020, Pfizer-BioTech COVID-19 Vacc 30 mcg/0.3ml IM suspension Hospital Providers: Provider RoleProvider Name SierraBee Blackmon DNAR: DNAR Status: none Activity: activity with [...] Spine Reason for ReferralPostoperative Follow-Up Appointment Scheduled Date/[id number] 11:15 [place] [address] [address], Phone NumberOffice: ([employer], Sec.) - [phone] CommentsPlease Call Tara Gonzalez RN at [phone] For Any Post-Op Questions Electronic Signatures: Tara Gonzalez (RN) (Signed 26-Nov-2020 13:51) Authored: Discharge Orders, Appointments, Gold Form - Senior Hr Business Partner Summary Bee Blackmon) (Signed 10-Dec-2020 17:40) Co-Signer: Discharge Orders, Hospital Course (Home Care/Gold Form), Provider FINAL REVIEW of Orders, Appointments, Gold Form - Senior Hr Business Partner Summary Lambert Suarez (Resident)) (Signed 26-Nov-2020 14:34) Entered: Hospital Course (Home Care/Gold Form), Provider FINAL REVIEW of Orders Authored: Discharge Orders, Hospital Course (Home Care/Gold Form), Provider FINAL REVIEW of Orders, Appointments, Gold Form - Senior Hr Business Partner Summary Last Updated: 10-Dec-2020 17:40 by Bee Blackmon) Normal [facility] GLUCOSE-POCTon 11-26-2020 Glucose [Mass/Vol] 186 mg/dL High 74 - 99 [facility] Comment on above: Performed By: #### G BABS #### [facility] [address] [facility] [place] [address] Laboratory - Chemistry and C hemistry - challengeon 11-26-2020 Glucose [Mass/Vol] 186 mg/dL above high threshold 74 - 99 [facility]-Orthopae dics-[facility] Work Phone: No Panel Informationon 11-26 Please click on the link to view the study images Normal MG-Orthopae dics-[facility] ke Work Phone: Operative Reports - [facility] [place] [address] Patient Name: RYAN. Taylor QUINN : 1965 Date of Service: 11/26/2020 Patient Location: [place] [address] Patient Type: I Surgeon: Bee Blackmon MD [...] [employer] Decade plate. SURGEON: Bee Blackmon MD SHOE PATTERNMAKER(S): Lambert Suarez MD ANESTHESIA: General. CLINICAL NOTE [...] confirm retractor (more content not included)... Normal [facility] Order Reconciliationon 11-26 Order Reconciliation Page 1 [...] days, th (more content not included)... Normal [facility] Order Reconciliation Page 1 Admission Reconciliation Document Reconciliation Type: Admission from OR requested on behalf of Lambert Suarez (Resident) done by Lambert Suarez ( (Resident)) Admission from OR - Reconciliation: 26-Nov-2020 14:21 by: Lambert Suarez ( (Resident)) Home MedicationsEnteredLast Dose TakenReconciled with current Order Reconciliation Comment/ Additional Information DULoxetine 60 mg oral delayed release capsule 1 cap(s) orally once a day [id number] AM DULoxetine Delayed Release Capsule (CYMBALTA)DOSE = 60 mg Oral DailyDULoxetine 60 mg oral delayed release capsule continued as the inpatient order DULoxetine fenofibrate 48 mg oral tablet 1 tab(s) orally once a [id number]-Nov-2020 AM Reviewed and Held lisinopril 20 mg oral tablet 1 tab(s) orally once a [id number] AM Lisinopril Tablet (PRINIVIL, ZESTRIL)DOSE = 20 [...] 15 minute(s)Clinician Notes: Charmaine-operative order ONLY Normal [facility] Patient Profile - Preop v2on 11-26-2020 Patient Profile - Preop v2 Profile: Initial Info: How to be AddressedRyan Spoken Language PreferredEnglish Stated Reason for Admissionl3-4 cage Primary Contact Name and NumberRenee, Patient Belongingssee preop checklist Medications Brought to Hospitalno General Health: Weight in kg129.7 kilogram(s) Weight in fqn355.9 pound(s) Weight Methodactual (measured) Scale Typestanding Height [...] Learning Preferencesindividual instruction Cultural Considerationsnone Developmental Considerationsnone Confucianist Considerationsnone Other learner availableno [place] RiskPatient location auto qualifies him/her for HIGH RISK. Are there any cultural, spiritual, yazidism practices/values/needs that are important for us to [...] Information Last Updated: 26-Nov-2020 12:05 by Pat Padilla) Normal [facility] Vital Signs Date Time Vital Sign Value Performing Clinician Facility 08-18-2024 09:13-0400 Body temperature 97 [degF] [address] 08-18-2024 09:13-0400 Diastolic blood pressure 79 mm[Hg] [address] 08-18-2024 09:13-0400 Heart rate 85 /min [address] 08-18-2024 09:13-0400 Respiratory rate 16 /min [address] 08-18-2024 09:13-0400 SaO2% (BldA) [Mass fraction] 100 % [address] 08-18-2024 09:13-0400 Systolic blood pressure 136 mm[Hg] [address] 08-18-2024 07:16-0400 Body height 182.[address] 08-18-2024 07:16-0400 Body mass index (BMI) [Ratio] 37.58 kg/m2 [address] 08-18-2024 07:16-0400 Body weight 125.[address] 05-15-2024 17:25-0500 Body temperature 98.2 [degF] Kimi Weiss DO Work Phone: [facility] 05-15-2024 17:25-0500 Diastolic blood pressure 93 mm[Hg] Kimi Weiss DO Work Phone: [facility] 05-15-2024 17:25-0500 Heart rate 98 /min Kimi Weiss DO Work Phone: [facility] 05-15-2024 17:25-0500 Respiratory rate 22 /min Kimi eWiss DO Work Phone: [facility] 05-15-2024 17:25-0500 SaO2% (BldA) [Mass fraction] 100 % Kimi Weiss DO Work Phone: [facility] 05-15-2024 17:25-0500 Systolic blood pressure 153 mm[Hg] Kimi Weiss DO Work Phone: [facility] 05-15-2024 15:51-0500 Body height 182.88 cm Kimi Weiss DO Work Phone: [facility] 05-15-2024 15:51-0500 Body weight 120 kg Kimi Weiss DO Work Phone: [facility] 04-13-2024 14:18-0500 Diastolic blood pressure 75 mm[Hg] Kimi Weiss DO Work Phone: [facility] 04-13-2024 14:18-0500 Heart rate 94 /min Kimi Weiss DO Work Phone: [facility] 04-13-2024 14:18-0500 Respiratory rate 16 /min Kimi Weiss DO Work Phone: [facility] 04-13-2024 14:18-0500 SaO2% (BldA) [Mass fraction] 98 % Kimi Weiss DO Work Phone: [facility] 04-13-2024 14:18-0500 Systolic blood pressure 139 mm[Hg] Kimi Weiss DO Work Phone: [facility] 04-13-2024 12:18-0500 Body temperature 97.6 [degF] Kimi Weiss DO Work Phone: [facility] 04-13-2024 06:11-0500 Body weight 119.9 kg Kimi Weiss DO Work Phone: [facility] 04-10-2024 17:20-0500 Body height 182.88 cm Kimi Weiss DO Work Phone: [facility] 03-31-2024 10:46-0500 Body height 185.42 cm Kimi Weiss DO Work Phone: [facility] 03-31-2024 10:46-0500 Body mass index (BMI) [Ratio] 34.4 kg/m2 Kimi Weiss DO Work Phone: [facility] 03-31-2024 10:46-0500 Body temperature 97.7 [degF] Kimi Weiss DO Work Phone: [facility] 03-31-2024 10:46-0500 Body weight 118.38 kg Kimi Weiss DO Work Phone: [facility] 03-31-2024 10:46-0500 Diastolic blood pressure 88 mm[Hg] Kimi Weiss DO Work Phone: [facility] 03-31-2024 10:46-0500 Heart rate 118 /min Kimi Weiss DO Work Phone: [facility] 03-31-2024 10:46-0500 Respiratory rate 18 /min Kimi Weiss DO Work Phone: [facility] 03-31-2024 10:46-0500 SaO2% (BldA) [Mass fraction] 96 % Kimi Weiss DO Work Phone: [facility] 03-31-2024 10:46-0500 Systolic blood pressure 122 mm[Hg] Kimi Weiss DO Work Phone: [facility] 03-27-2024 09:46-0500 Body mass index (BMI) [Ratio] 34.72 kg/m2 Karon Rodriguez VISITOR SERVICES ASSISTANT Work Phone: [facility] 03-27-2024 09:46-0500 Body weight 116.12 kg Karon Rodriguez VISITOR SERVICES ASSISTANT Work Phone: [facility] 03-27-2024 09:46-0500 Diastolic blood pressure 96 mm[Hg] Karon Rodriguez VISITOR SERVICES ASSISTANT Work Phone: [facility] 03-27-2024 09:46-0500 Heart rate 82 /min Karon Rodriguez VISITOR SERVICES ASSISTANT Work Phone: [facility] 03-27-2024 09:46-0500 Systolic blood pressure 148 mm[Hg] Karon Rodriguez VISITOR SERVICES ASSISTANT Work Phone: [facility] 09-15-2023 10:11-0400 Body height 184.15 cm DO Kimi Weiss Work Phone: [facility] 09-15-2023 10:11-0400 Body mass index (BMI) [Ratio] 35.2 kg/m2 DO Kimi Weiss Work Phone: [facility] 09-15-2023 10:11-0400 Body weight 119.29 kg DO Kimi Weiss Work Phone: [facility] 09-07-2023 10:35-0400 Diastolic blood pressure 98 mm[Hg] DO Kimi Weiss Work Phone: [facility] 09-07-2023 10:35-0400 Heart rate 102 /min DO Kimi Weiss Work Phone: [facility] 09-07-2023 10:35-0400 Respiratory rate 20 /min DO Kimi Wesis Work Phone: [facility] 09-07-2023 10:35-0400 SaO2% (BldA) [Mass fraction] 96 % DO Kimi Weiss Work Phone: [facility] 09-07-2023 10:35-0400 Systolic blood pressure 160 mm[Hg] DO Kimi Weiss Work Phone: [facility] 09-07-2023 10:00-0400 Inhaled oxygen flow rate 3 L/min DO Kimi Weiss Work Phone: [facility] 09-07-2023 09:19-0400 Body height 182.88 cm DO Kimi Weiss Work Phone: [facility] 09-07-2023 09:19-0400 Body weight 120.2 kg DO Kimi Weiss Work Phone: [facility] 09-16-2021 14:17-0400 Body mass index (BMI) [Ratio] 34.45 kg/m2 Kimi Weiss Work Phone: [facility] [address] Work Phone: 09-16-2021 14:17-0400 Body surface area Derived from formula 2.36 m2 Kimi Weiss Work Phone: FF-Ogiizxv-Kukar [facility] [address] Work Phone: 09-16-2021 14:17-0400 Body weight 115.21 kg Kimi Weiss Work Phone: IL-Lgdgtan-Cwesj [facility] Work Phone: 07-23-2021 09:45-0400 Body height 184.15 cm Charles Claros Other [employer] Other 07-23-2021 09:45-0400 Body mass index (BMI) [Ratio] 34.51 kg/m2 Charles Claros Other [facility] Other 07-23-2021 09:45-0400 Body weight 117.03 kg Charles Claros Other [facility] Other 06-18-2021 14:17-0500 Body mass index (BMI) [Ratio] 36.75 kg/m2 Kimi Weiss Work Phone: WH-Imjlktz-Hzdgj [facility] [address] Work Phone: 06-18-2021 14:17-0500 Body surface area Derived from formula 2.42 m2 Kimi Weiss Work Phone: ZT-Toiheof-Rsswb [facility] [address] Work Phone: 06-18-2021 14:17-0500 Body weight 122.93 kg Kimi Weiss Work Phone: WJ-Vcannfw-Duhmo [facility] Work Phone: 04-23-2021 09:49-0500 Body height 182.88 cm Kimi Weiss Work Phone: SA-Liobywf-Bhodu [facility] Work Phone: 04-23-2021 09:49-0500 Body mass index (BMI) [Ratio] 39.6 kg/m2 Kimi P Abhishek Work Phone: WH-Olurrus-Ffgsk [facility] [address] Work Phone: 04-23-2021 09:49-0500 Body surface area Derived from formula 2.5 m2 Kimi Santos Abhishek Work Phone: TB-Egdmlsm-Cxigw [facility] Work Phone: 04-23-2021 09:49-0500 Body weight 132.45 kg Kimi Santos Abhishek Work Phone: AB-Ermesog-Srbra [facility] Work Phone: 04-02-2021 09:45-0500 Body height 184.15 cm Charles Claros Other [facility] Other 04-02-2021 09:45-0500 Body mass index (BMI) [Ratio] 35.44 kg/m2 Charles Claros Other [facility] Other 04-02-2021 09:45-0500 Body weight 120.2 kg Charles Claros Other [facility] Other Encounters Encounter Date Encounter Type Care Provider Facility Start: 10-26-2024 End: 10-26-2024 ambulatory Kimi Weiss Facility: [facility] Start: 10-18-2024 ambulatory Kimi Weiss Facili ty: [facility] Start: 10-11-2024 ambulatory Kimi Weiss Facili ty: [facility] Start: 09-21-2024 End: 09-21-2024 Office outpatient visit 15 minutes Radha Gates MD Work Phone: [facility] Comment on above: Postlaminectomy synd lorena, lumbar region (Primary Dx); Lumbar radiculopathy, chronic Start: 09-21-2024 End: 09-21-2024 ambulatory RADHA GATES [facility] Ambulatory Start: 09-13-2024 End: 09-13-2024 ambulatory [facility] Work Phone: Start: 09-13-2024 End: 09-13-2024 Patient encounter procedure [facility] Work Phone: Start: 08-18-2024 End: 08-18-2024 [facility] Start: 08-18-2024 End: 08-18-2024 Subsequent hospital visit by physician Homero Chavis MD Work Phone: [facility] Comment on above: Lumbar radiculopathy , chronic; Postlaminectomy syndrome, lumbar region Start: 08-16-2024 End: 08-16-2024 Bamboo flowsheet Bethany Cross VISITOR SERVICES ASSISTANT Work Phone: [facility] Start: 08-16-2024 End: 08-16-2024 Bamboo flowsheet Bethany Cross VISITOR SERVICES ASSISTANT Work Phone: [facility] Start: 08-16-2024 End: 08-16-2024 Office outpatient visit 15 minutes Bethany Cross VISITOR SERVICES ASSISTANT Work Phone: [facility] Comment on above: Chronic cluster head ache, not intractable (Primary Dx); Essential hypertension (CMS/HCC); History of blood clots; Lumbar radiculopathy Start: 08-16-2024 End: 08-16-2024 ambulatory BETHANY VIKA Not Available Start: 08-03-2024 End: 08-03-2024 Office outpatient visit 25 minutes Radha Gates MD Work Phone: [facility] Comment on above: Lumbar radiculopathy , chronic (Primary Dx); Postlaminectomy syndrome, lumbar region Start: 08-03-2024 End: 08-03-2024 ambulatory RADHA GATES [facility] Ambulatory Start: 07-20-2024 ambulatory Kimi Boggs ty:[facility] Start: 07-13-2024 End: 07-13-2024 Subsequent hospital visit by physician Keri Chavez 2 [facility] Comment on above: Postlaminectomy synd lorena, lumbar region Start: 07-13-2024 End: 07-13-2024 ambulatory [facility] Start: 06-22-2024 End: 06-22-2024 Office consultation new/estab patient 60 min Radha Gates MD Work Phone: [facility] Comment on above: Postlaminectomy synd lorena, lumbar region (Primary Dx); Lumbar radiculopathy, chronic Start: 06-22-2024 End: 06-22-2024 ambulatory [facility] Ambulatory Start: 06-09-2024 ambulatory Kimi Weiss [facility]ili [facility] Start: 05-29-2024 ambulatory Kimi Santos Abhishek Facili ty: [facility] Start: 05-22-2024 ambulatory Kimi Santos Abhishek Almazani ty:[facility] Start: 05-19-2024 ambulatory Kimi Santos Abhishek Almazani ty: [facility] Start: 05-15-2024 End: 05-15-2024 Emergency department patient visit Kimi Weiss DO Work Phone: [facility] Work Phone: Start: 05-10-2024 End: 05-10-2024 ambulatory Kimi Weiss Facility:[facility] Start: 05-10-2024 End: 05-10-2024 ambulatory Kimi Weiss Facility: [facility] Start: 04-18-2024 End: 04-18-2024 ambulatory Kimi Weiss Facility: [facility] Start: 04-17-2024 ambulatory Kimi Weiss Facili ty: [facility] Start: 04-11-2024 Non-patient / Non-visit Kimi Weiss DO Work Phone: [facility] Work Phone: Start: 04-10-2024 End: 04-13-2024 ambulatory Wendy Cruz Facility:[facility] Start: 04-10-2024 End: 04-13-2024 Evaluation and management of inpatient Kimi Weiss DO Work Phone: [facility] Work Phone: Start: 04-10-2024 End: 04-10-2024 ambulatory Kimi Weiss Facility: [facility] Start: 04-08-2024 Non-patient / Non-visit Kimi Weiss DO Work Phone: [facility] Work Phone: Start: 04-07-2024 Non-patient / Non-visit Kimi Weiss DO Work Phone: [facility] Work Phone: Start: 04-06-2024 Non-patient / Non-visit Kimi Weiss DO Work Phone: [facility] Work Phone: Start: 04-03-2024 End: 04-03-2024 ambulatory Kimi Weiss Facility: [facility] Start: 04-02-2024 Non-patient / Non-visit Kimi Weiss DO Work Phone: [facility] ER Work Phone: Start: 03-31-2024 End: 03-31-2024 Patient encounter procedure Kimi Weiss DO Work Phone: [facility] Work Phone: Start: 03-27-2024 End: 03-27-2024 Bamboo flowsheet Karon Rodriguez VISITOR SERVICES ASSISTANT Work Phone: [facility] [address] [facility] Start: 03-27-2024 End: 03-27-2024 Bamboo flowsheet Karon Rodriguez VISITOR SERVICES ASSISTANT Work Phone: [facility] [address] Start: 03-27-2024 End: 03-27-2024 Office outpatient visit 25 minutes Karon Rodriguez VISITOR SERVICES ASSISTANT Work Phone: [facility] [address] Comment on above: Chronic cluster head ache, not intractable (Primary Dx); Essential hypertension (CMS/HCC); History of blood clots Start: 03-27-2024 End: 03-27-2024 ambulatory KARON RODRIGUEZ Not Available Start: 03-07-2024 ambulatory Kimi Weiss Facili ty:[facility] Start: 02-21-2024 End: 02-21-2024 ambulatory Kimi Weiss [facility]: [facility] Start: 02-07-2024 End: 02-07-2024 ambulatory Kimi Weiss Facility: [facility] Start: 01-17-2024 End: 01-17-2024 Office outpatient visit 15 minutes Bee Blackmon MD Work Phone: [facility] Comment on above: Postlaminectomy synd lorena, lumbar region (Primary Dx) Start: 01-17-2024 End: 01-17-2024 ambulatory BEE BLACKMON [facility] Start: 01-03-2024 End: 01-03-2024 ambulatory Kimi Weiss [facility]: [facility] Start: 11-30-2023 End: 11-30-2023 ambulatory KARON RODRIGUEZ Not Available Start: 09-15-2023 End: 09-15-2023 ambulatory DO Kimi Weiss Work Phone: [facility] Work Phone: Start: 09-15-2023 End: 09-15-2023 Patient encounter procedure DO Kimi Weiss Work Phone: [facility] Work Phone: Start: 09-07-2023 Non-patient / Non-visit DO Mike Weiss Work Phone: [facility] Work Phone: Start: 09-07-2023 End: 09-07-2023 Admission to same day surgery center DO Kimi Weiss Work Phone: [facility] Work Phone: Start: 09-07-2023 End: 09-07-2023 ambulatory DO Kimi Weiss Work Phone: [facility] Work Phone: Start: 08-05-2023 End: 08-05-2023 ambulatory [facility] Work Phone: Start: 08-05-2023 End: 08-05-2023 Patient encounter procedure [facility] Work Phone: Start: 04-22-2023 End: 04-22-2023 ambulatory Charles Claros Other [employer] Other Start: 04-22-2023 Telephone encounter Charles HOLT G [facility] [place] Start: 04-01-2023 End: 04-01-2023 ambulatory Charles Claros Other [employer] Other Start: 04-01-2023 Office outpatient vi sit 25 minutes Charles Claros [facility] [place] Start: 04-01-2023 Telephone encounter Charles HOLT G [facility] Start: 01-21-2023 End: 01-21-2023 ambulatory Charles Claros Other [employer] Other Start: 01-21-2023 Office outpatient vi sit 25 minutes Charles Brisenoer [facility] [place] Start: 01-21-2023 Telephone encounter Charles HOLT G [facility] Start: 10-06-2022 End: 10-06-2022 ambulatory Charles Claros Other [employer] Other Start: 10-06-2022 Office outpatient vi sit 25 minutes Charles Claros [facility] [place] Start: 10-06-2022 Telephone encounter Charles HOLT G [facility] Start: 07-23-2022 ambulatory Bee Blackmon Facility :[id number] Start: 06-01-2022 End: 06-01-2022 ambulatory Charles Claros Other [employer] Other Start: 06-01-2022 Office outpatient vi sit 25 minutes Charles Claros [facility] [place] Start: 06-01-2022 Telephone encounter Charles HOLT [facility] [place] Start: 05-13-2022 AUDIT Kimi Rasmussen on Work Phone: BV-Xvwbyjhfttii-Fdlrel ke Work Phone: Start: 05-12-[address] Kimi Weiss Facility:[id number] Start: 04-27-2022 Office outpatient vi sit 40 minutes Kimi Weiss Work Phone: MN-Prxuaocqbpqb-Vsaxjd ke Work Phone: Start: 04-14-2022 End: 04-14-[address] DANIEL BENITEZ Facility:[id number] Start: 02-18-2022 End: 02-18-2022 ambulatory Charles Claros Other [employer] Other Start: 02-18-2022 Office outpatient vi sit 25 minutes Charles Claros [facility] [place] Start: 02-18-2022 Telephone encounter Charles Claros [facility] Start: 12-15-2021 End: 12-15-2021 ambulatory Charles Claros Other [employer] Other Start: 12-15-2021 Office outpatient vi sit 25 minutes Charles Claros [facility] [place] Start: 09-29-2021 Office outpatient ne w 30 minutes iKmi Weiss Work Phone: IS-Jveutkgrmnyd-Cyqnuh ke Work Phone: Start: 09-16-2021 Office outpatient vi sit 25 minutes Kimi Weiss Work Phone: OT-Ocojoiw-Mzpxk [id number] Work Phone: Start: 07-28-2021 Office outpatient vi sit 15 minutes Kimi Weiss Work Phone: GL-Dgsaqreeoaaf-Tcmcre ke Work Phone: Start: 07-23-2021 End: 07-23-2021 ambulatory Charles Claros Other [employer] Other Start: 07-23-2021 Office outpatient vi sit 25 minutes Charles Claros [facility] [place] Start: 06-18-2021 Office outpatient vi sit 25 minutes Kimi Weiss Work Phone: EQ-Wxygdzw-Ujdzi [id number] Work Phone: Start: 06-03-2021 PAYAM, Provider : Shobha Gomez, Status: Pen, Time: 8:30 AM Kimi Weiss Work Phone: FR-Uxduzzf-Hhzlt [id number] Work Phone: Start: 06-02-2021 AUDIT Kimi Rasmussen on Work Phone: QB-Euloxsm-Yfhzg [id number] Work Phone: Start: 04-23-2021 Current tobacco non- user cad cap copd pv dm Kimi Weiss Work Phone: RG-Vzwtxxi-Ijnoy [id number] Work Phone: Start: 04-02-2021 End: 04-02-2021 ambulatory Charles Claros Other [employer] Other Start: 04-02-2021 Office outpatient vi sit 25 minutes Charles Claros [facility] [place] Start: 03-10-2021 Office outpatient vi sit 15 minutes Kimi Weiss Work Phone: KO-Chgjpmczunqk-Tdtvra ke Work Phone: Start: 02-05-2021 Office outpatient vi sit 25 minutes Charles Claros [facility] [place] Start: 12-09-2020 Postop follow up vis it related to original px Kimi Weiss Work Phone: DL-Akvkjoyrrvvg-Ydxbqh ke Work Phone: Start: 11-26-2020 End: 11-27-2020 Evaluation and management of inpatient Bee Blackmon [facility] OR 33 Start: 10-31-2020 Phys/qhp telephone evaluation 21-30 min Referring Provider Unknown YP-Hkagcywciyrc-Otycaw Work Phone: Procedures Date Procedure Procedure Detail Performing Clinician Start: 08-18-2024 [place] PAIN MANAGEMENT Flaquito Gates MD Work Phone: Start: 08-18-2024 Fluor needle/cath spine/paraspinal dx/ther addtessa Gates MD Work Phone: Start: 08-18-2024 Glucose quantitative blood xcpt reagent strip Homero Chavis MD Work Phone: Start: 05-15-2024 Plain chest X-ray Bradley alberto Weiss DO Work Phone: Start: 04-13-2024 [facility] Angio Neymar Weiss DO Work Phone: Start: 04-13-2024 Kimi marquez DO Work Phone: Start: 04-12-2024 SARS Antigen (LFIA) Mike Weiss DO Work Phone: Start: 04-10-2024 Plain chest X-ray Bradley alberto Weiss DO Work Phone: Start: 09-15-2023 X-ray of lumbar spin e, four views DO Kimi Weiss Work Phone: Start: 09-15-2023 Plain X-ray of right hip DO Kimi Abhishek Work Phone: Start: 09-07-2023 Local anesthetic sac ral epidural block DO Kimi Abhishek Work Phone: Start: 05-04-2022 Follow-up visit Start: 12-28-2017 Colonoscopy Bee bennett MD Work Phone: Plan of Treatment Date Care Activity Detail Author Start: 12-29-2027 Screening for malign ant neoplasm of colon [facility] Start: 08-18-2025 Diabetes mellitus screening Diabetes Screening [facility] Start: 12-18-2024 Influenza vaccination Influenz a Vaccine (Season Ended) [facility] Start: 12-07-2024 End: 12-07-2024 Patient encounter procedure 12/07/2024 9:40 AM EDT Office Visit [facility] [address] [place] [phone] Bethany Cross, SABRINA [address] [place] [address] [phone] [facility] WHEAT[facility] Start: 09-21-2024 End: 09-21-2024 Patient encounter procedure 09/21/2024 10:15 AM EDT Office Visit [facility] [address] [place] [address] [address] [place] [address] [place] [address] [address] [facility] [place] [address] [facility] Start: 08-18-2024 End: 08-18-2024 Patient encounter procedure 08/18/2024 8:00 AM EDT Appointment [facility] [address] [place] [address] Homero Chavis MD [address] [place] [address] [facility] OR Start: 08-16-2024 End: 08-16-2024 Patient encounter procedure 08/16/2024 11:00 AM EDT Office Visit COLETTE WHEATLEY [address] [place] [address] [address] Bethany Cross NP [address] [place] [phone] Arrived COLETTE WHEATLEY Comment on above: Arrived Start: 08-03-2024 End: 08-03-2025 FL pain management [place] pain management Imaging Routine Lumbar radiculopathy, chronic Postlaminectomy syndrome, lumbar region Expected: 08/03/2024, Expires: 08/03/2025 [facility] Work Phone: Comment on above: Expected: 08/03/2024 , Expires: 08/03/2025 Start: 08-03-2024 End: 08-03-2025 Transforaminal Transforaminal Pain Management Routine Lumbar radiculopathy, chronic Postlaminectomy syndrome, lumbar region Expected: 08/03/2024, Expires: 08/03/2025 [facility] Service Area Work Phone: Comment on above: Expected: 08/03/2024 , Expires: 08/03/2025 Start: 08-03-2024 End: 08-03-2024 Patient encounter procedure 08/03/2024 10:45 AM EDT Office Visit [facility] [address] [address] [place] [address] [address] [facility] [place] [address] [facility] Start: 07-11-2024 End: 07-11-2024 Patient encounter procedure 07/11/2024 9:40 AM EDT Office Visit [facility] [address] [place] [address] Karon Rodriguez NP [address] [place], [place] [id number] [facility] [address] Start: 06-22-2024 End: 06-22-2025 Creatinine [Mass/volume] in Serum or Plasma Creatinine, Serum Lab Routine Postlaminectomy syndrome, lumbar region Expected: 06/22/2024 (Approximate), Expires: 06/22/2025 [facility] Service Area Work Phone: Comment on above: Expected: 06/22/2024 (Approximate), Expires: 06/22/2025 Start: 06-22-2024 End: 06-22-2025 CT Lumbar spine W contrast IV CT lumbar spine w IV contrast Imaging Routine Postlaminectomy syndrome, lumbar region Expected: 06/22/2024, Expires: 06/22/2025 [facility] Work Phone: Comment on above: Expected: 06/22/2024 , Expires: 06/22/2025 Start: 04-13-2024 [facility] Start: 04-10-2024 Sleep disorder assessment [facility] Start: 04-10-2024 Referral to french instructor [facility] Start: 04-10-2024 Hospital admission [facility] Start: 03-30-2024 End: 03-30-2024 Patient encounter procedure 03/30/2024 9:30 AM EST Office Visit [address] [address] [place] [address] [address] [place] [address] [facility] Start: 03-27-2024 End: 03-27-2024 Patient encounter procedure 03/27/2024 9:40 AM EST Office Visit [facility] [address] [place] [phone] Karon Rodriguez NP [address] [place], [place] [id number] Arrived [facility] Comment on above: Arrived Start: 12-19-2023 COVID-19 Vaccine ( season) COVID-19 Vaccine ( season) [facility] Start: 12-19-2023 COVID-19 Vaccine ( season) COVID-19 Vaccine ( season) [facility] Start: 12-19-2023 Influenza vaccination Influenza Vacc ine (#1) [facility] Start: 09-15-2023 X-ray of lumbar spin e, four views XR lumbar spine AP/LAT/FLX/EXT [facility] Start: 09-15-2023 XR Lumbar spine 4 Views [facility] Start: 09-15-2023 Plain X-ray of right hip XR hi p RT min 2V(w/wo pelvis)* [facility] Start: 09-15-2023 XR Hip - right 2 Views [facility] Start: 09-07-2023 [facility] Start: 06-11-2022 EMG, Provider: NEURO LOI [id number] EMG [id number], Status: Pen, Time: 10:30 AM EMG, Provider: NEURODIAG EMC01 EMG ARAIZA,[id number], Status: Pen, Time: 10:30 AM [facility] Work Phone: Start: 05-04-2022 VIRFUVHOME, Provider : Marisol Husain, Status: Pen, Time: 8:45 AM VIRFUVHOME, Provider: Marisol Husain, Status: Pen, Time: 8:45 AM HU-Qgagmeozyruk-[place]ip [place] Work Phone: Start: 01-13-2022 VIRFUVHOME, Provider : Marisol Husain, Status: Pen, Time: 2:15 PM VIRFUVHOME, Provider: Marisol Husain, Status: Pen, Time: 2:15 PM WK-Imufnsopgihf-Bhqb lake Work Phone: Start: 11-26-2021 Diabetes mellitus screening Diabetes Screening [facility] Start: 09-29-2021 FUV, Provider: Bee Blackmon, Status: Pen, Time: 11:30 AM FUV, Provider: Bee Blackmon, Status: Pen, Time: 11:30 AM UI-Guptcxd-Dmbzf [id number] Work Phone: Start: 09-16-2021 VIRFUVHOME, Provider : Marisol Husain, Status: Pen, Time: 2:15 PM VIRFUVHOME, Provider: Marisol Husain, Status: Pen, Time: 2:15 PM AD-Smcwgquqpekd-Ciie [place] Work Phone: Start: 06-18-2021 VIRFUVHOME, Provider : Marisol Husain, Status: Pen, Time: 2:15 PM VIRFUVHOME, Provider: Marisol Husain, Status: Pen, Time: 2:15 PM AI-Cprfmny-Wragn [id number] Work Phone: Start: 04-23-2021 NPV, Provider: Marisol Husain, Status: Pen, Time: 10:00 AM NPV, Provider: Marisol Husain, Status: Pen, Time: 10:00 AM [facility] Work Phone: Start: 03-10-2021 FUV, Provider: Bee Blackmon, Status: Pen, Time: 11:15 AM FUV, Provider: Bee Blackmon, Status: Pen, Time: 11:15 AM RG-Xuqowxovqblx-Ffxi [place] Work Phone: Start: 03-10-2021 Patient encounter procedure [facility] [place] Start: 12-16-2020 POV, Provider: Bee Blackmon, Status: Pen, Time: 11:15 AM POV, Provider: Bee Blackmon, Status: Pen, Time: 11:15 AM KI-Hdytgmhrnhgu-Hxjt na Work Phone: Start: 11-26-2020 [facility], Provider: Bee Blackmon, Status: Pen, Time: 8:30 AM SURGCMC, Provider: Bee Blackmon, Status: Pen, Time: 8:30 AM KK-Ifsmwojbejzw-Smkx na Work Phone: Start: 2016 Pneumococcal vaccination Pneum ococcal Vaccine (1 of 1 - PCV) [facility] Start: 2016 Zoster Vaccines (1 of 2) Zoster Vacc andrew (1 of 2) [facility] Start: 1988 DTaP/Tdap/Td Vaccine s (1 - Tdap) DTaP/Tdap/Td Vaccines (1 - Tdap) [facility] Start: 1985 Hepatitis B Vaccines (1 of 3 - 19+ 3-dose series) Hepatitis B Vaccines (1 of 3 - 19+ 3-dose series) [facility] Start: 1984 Hepatitis C screening Hepatitis C [facility] Start: 1967 MMR Vaccines (1 of 1 - Standard series) MMR Vaccines (1 of 1 - Standard series) [facility] Start: 1966 HIV screening HIV Screening [facility] Start: 1966 Lipid panel Lipid Panel [facility] Start: 1966 Screening for malign ant neoplasm of colon [facility] Start: 1966 Yearly Adult Physical Yearly Adult P hysical [facility] End: 08-18-2024 Blood type and Indirect antibody screen panel - Blood Type And Screen Lab Timed As needed (Lab) until discontinued starting 08/18/2024 [facility] Service Area Work Phone: Comment on above: As needed (Lab) unti l discontinued starting 08/18/2024 End: 07-13-2024 CT Lumbar spine W contrast IV [facility] Service Area Work Phone: Comment on above: Once for 1 Occurrenc es starting 07/13/2024 until 07/13/2024 End: 08-18-2024 Glucose [Mass/volume] in Serum or Plasma POCT fingerstick glucose manually resulted Point of Care Testing Routine Once (Lab) for 1 Occurrences starting 08/18/2024 until 08/18/2024 [facility] Area Work Phone: Comment on above: Once (Lab) for 1 Occ urrences starting 08/18/2024 until 08/18/2024 Patient Education [facility] Work Phone: Patient referral [facility] Work Phone: Immunizations Immunization Date Immunization Notes Care Provider Fa cility 07-22-2020 Pfizer-BioNTech COVID-19 Vacc 30 MCG/0.3ML Intramuscular Suspension Referring Provider Unknown XL-Tflwmsxvxisb-Mukya a Work Phone: 07-01-2020 Pfizer-BioNTech COVID-19 Vacc 30 MCG/0.3ML Intramuscular Suspension Referring Provider Unknown YV-Hpnsmmpdhfgy-Djioa a Work Phone: 01-27-2020 influenza, injectabl e, quadrivalent, preservative free Referring Provider Unknown LV-Abcsgynlqzon-Hepou a Work Phone: 01-27-2020 influenza virus vaccine, unspecified formulation Bee Blackmon MD Work Phone: [facility] Work Phone: 02-13-2019 influenza, injectabl e, quadrivalent, contains preservative Referring Provider Unknown ZS-Xpvnyffkprot-Skjlr a Work Phone: 02-21-2018 influenza, injectabl e, quadrivalent, preservative free Referring Provider Unknown UX-Acijidorvfkr-Tqcni a Work Phone: 01-30-2017 KENALOG - 10 mg Charles Cedeno owen Other [employer] Other 01-17-2014 influenza, seasonal, injectable Referring Provider Unknown CQ-Tpkbgsfeayqq-Xgaeq a Work Phone: Payers Date Payer Category Payer Unknown [id number] 2023 Self-pay [id number] 2023 Managed Care (Private) 1.2.8 [id number]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 Dutch Taylor MA, Data Processing Supervisor. Edited and approved by Dr. Charles Claros MD. [facility] Other 02-13-2023 Evaluation note* Encounter Date Diagnosis Assessment Notes Treatment Notes Treatment Clinical Notes May, Lumbar back sprain (ICD-10 - S33.5XXA) [facility] Other 11-02-2022 Evaluation note* Encounter Date Diagnosis [...] note writ ten by Doris Weiss LPN, Data Processing Supervisor. Edited and approved by Dr. Charles Claros MD. [facility] Other 11-02-2022 Evaluation note* Encounter Date Diagnosis Assessment Notes Treatment Notes Treatment Clinical Notes Feb, Lumbar back sprain (ICD-10 - S33.5XXA) [facility] Other 08-29-2022 Evaluation note* Encounter Date Diagnosis [...] note writ ten by Doris Weiss LPN, Data Processing Supervisor. Edited and approved by Dr. Charles Claros MD. [facility] Other 05-31-2022 Chief complaint Narrative - Reported* An interactive audio and video telecommunication system which permits real time communications between the patient (at the originating site) and provider (at the distant site) was utilized to providethis telehealth service. * Verbal consent was requested and obtained from LYLY QUINN on this date, 09/16/2021 02:15 PM , for atelehealth visit. GS-Cilmecx-Festj [facility] Work Phone: [phone]) 205-779104-06-2022 Evaluation note* Encounter Date Diagnosis Assessment Notes [...] note writ ten by Dutch Taylor CMA, Data Processing Supervisor. Edited and approved by Dr. Charles Claros MD. [employer] Other 03-02-2022 Chief complaint Narrative - Reported* An interactive audio and video telecommunication system which permits real time communications between the patient (at the originating site) and provider (at the distant site) was utilized to providethis telehealth service. * Verbal consent was requested and obtained from LYLY QUINN on this date, 06/18/2021 02:15 PM , for atelehealth visit. MR-Ksapfgq-Wddwy [facility] Work Phone: [phone] 664-142501-05-2022 Chief complaint Narrative - Reported* An interactive audio and video telecommunication system which permits real time communications between the patient (at the originating site) and provider (at the distant site) was utilized to providethis telehealth service. * Verbal consent was requested and obtained from LYLY QUINN on this date, 04/23/2021 10:00 AM , for atelehealth visit. PY-Sohrhun-Ihrgb [address] Work Phone: [phone]) 562-232001-05-2022 Chief complaint Narrative - Reported* An interactive audio and video telecommunication system which permits real time communications between the patient (at the originating site) and provider (at the distant site) was utilized to providethis telehealth service. * Verbal consent was requested and obtained from LYLY QUINN on this date, 04/23/2021 10:00 AM , for atelehealth visit. RQ-Pjqexxxkveuxjxpx-Kzbhx Shefali MIRZAI Work Phone: [phone] 147-392112-15-2021 Evaluation note* Encounter Date Diagnosis Assessment Notes [...] note writ ten by Lawanda Yuen CMA, Data Processing Supervisor. Edited and approved by Dr. Charles Claros MD. [facility] Other 10-20-2021 Evaluation note* Encounter Date Diagnosis [...] note writ ten by Dutch Taylor MA, Data Processing Supervisor. Edited and approved by Dr. Charles Claros MD. [facility] Other 08-10-2021 NoteSend Summary: Discharge Summary Providers: Provider RoleProvider Name Kimi Alarcon Zachary Note Recipients: Bee Blackmon MD Jackson, Steven P, DO - [phone] [] Discharge: Summary: Admission Date: .26-Nov-2020 10:44:00 [...] visit. Immunizations: Immunizations: 19-Nov-2020 SARS-CoV-2 (COVID-19): Immunizations, [employer] COVID-19 Vacc 30 mcg/0.3ml IM suspension, 01-Jul-2020 SARS-CoV-2 (COVID-19): Immunizations, [employer] COVID-19 Vacc 30 mcg/0.3ml IM Suspension, 22-Jul-2020 [...] Follow-Up Appointment Scheduled Date/Time: 09-Dec-2020 11:15 Location: [address] [place] [address] OFFICE [address], Phone Number: Office: Sec. [place]) - [phone] Discharge Medications: Home Medication lisinopril 20 mg [...] Dx: acute post-operative pain (more content not included)...[facility]08-10-2021 NotePost Operative Note: PreOp Diagnosis: lumbar stenosis with radiculopathy Post-Procedure Diagnosis: same as preop Procedure: 1. L3-4 XLIF 2. 3. 4. 5. Surgeon: Neymar Sweeney/Fellow/Other Lockstitch Coat Joiner: Daniela Anesthesia: GETA Estimated Blood Loss (mL): [...] Completion Last Updated: 10-Dec-2020 17:38 by Bee Blackmon)[facility]08-10-2021 NotePreop Checklist: Preop Checklist: Procedure TypeL3-4 lateral lumbar fusion with instrumentation Temperature C36.4 degrees C Temperature F97.5 degrees F Heart Rate92 beats per minute Respiratory Rate16 breath per minute Blood Pressure Qtzlyjaw797 mm/Hg Blood Pressure Grwjqovdu71 mm/Hg NPO Lxgiao23-Oot-0126 22:00 ID Band Onyes Allergy Bandno known [...] Last Updated: 26-Nov-2020 12:09 by Pat Padilla (RN)[facility]08-10-2021 NoteHistory & Physical Reviewed: I have reviewed [...] the note. I personally evaluated the patient [id number] Electronic Signatures: Bee Blackmon) (Signed 09-Dec-2020 19:41) Authored: Note Completion Co-Signer: History & Physical Reviewed, ERAS, Consent, Note Completion Kevin Marshall (Resident)) (Signed 26-Nov-2020 05:52) Authored: History & Physical Reviewed, ERAS, Consent, Note Completion Last Updated: 09-Dec-2020 19:41 by Bee Blackmon)[facility]05-05-2021 Evaluation note* Lymphatic: No significant lymphadenopathyNeurological: A&Iu7Kvxunlyuwkgcbxhh: Soft, ntndCardiovascular: RRR by peripheral pulsesPsychological: Appropriate mood and behaviorRespiratory/Thorax: Breathing normally on RAHead/Neck: Neck supple, trachea midlineEyes: EOMI, clear scleraSkin: Warm and dry, no rashesMusculoskeletal: L1: SILTL2: SILT Hip flexors 5/5 Right; 5/5 LeftL3: SILT Knee extension 5/5 Right; 5/5 LeftL4: SILT Tib Ant. (Dorsiflexion) 5/5 Right; 5/5 LeftL5: SILT EHL 5/5 Right; 5/8RhxqV2: SILT Planter flexion 5/5 Right; 5/5 LeftConstitutional: Awake/alert/oriented x3, no distress, alert and cooperative [facility]02-01-2020 History of Present illness Narrative* 55-year-old male [...] He was evaluated by another surgeon in [facility], they did recommend surgery however he has a history involving multiple DVTs and pulmonary embolism. After his last operation he was not bridged preoperatively on Lovenox, and he did not receive any anticoagulation until 2 weeks after surgery. Despite having an IVC filter in place he through another pulmonary embolism. He follows up with a spring assembler supervisor in [place]. * He is otherwise in good health. [...] 26. I have reached out to his spring assembler supervisor to confirm plans for perioperative anticoagulation. He is fully vaccinated for COVID-19. * This note was dictated using speech recognition software and was not corrected for spelling or grammatical errors. UA-Qxqwlneghpei-Fytnwl Work Phone: [phone] 370-221802-01-2020 History of Present illness Narrative* 55-year-old male [...] He was evaluated by another surgeon in [facility], they did recommend surgery however he has a history involving multiple DVTs and pulmonary embolism. After his last operation he was not bridged preoperatively on Lovenox, and he did not receive any anticoagulation until 2 weeks after surgery. Despite having an IVC filter in place he through another pulmonary embolism. He follows up with a spring assembler supervisor in [place]. * He is otherwise in good health. [...] 26. I have reached out to his spring assembler supervisor to confirm plans for perioperative anticoagulation. He is fully vaccinated for COVID-19. * This note was dictated using speech recognition software and was not corrected for spelling or grammatical errors. [facility] Work Phone: [phone] 430-293801-06-2019 History of Present illness Narrative* Patient is [...] not corrected for spelling or grammatical errors. [facility] Work Phone: 1([phone]) 305-884612-18-2018 History of Present illness Narrative* Patient is [...] not corrected for spelling or grammatical errors. [facility] Work Phone: 1(147) 373-215811-22-2018 History of Present illness Narrative* Patient is [...] not corrected for spelling or grammatical errors. IJ-Sgvlqidnmevm-Mwckvnmy Work Phone: Evaluation note* Diagnosis Onset Date Resolution Status Chronic pain acute Chronic, continuous use of opioids acute Other spondylosis with radiculopathy, lumbar region [facility] Work Phone: Evaluation note* Diagnosis Onset Date Resolution Status Chronic pain acute Chronic, continuous use of opioids acute Other spondylosis with radiculopathy, lumbar region acute Chronic pain acute Chronic, continuous use of opioids acute Other spondylosis with radiculopathy, lumbar region [facility] Work Phone: Evaluation note* Diagnosis Chronic cluster headache, not intractable- Primary Essential hypertension (CMS/HCC) Unspecified essential hypertension History of blood clots [facility] Diagnosis Postlaminectomy syndrome, lumbar region- Primary documented in this encounter [facility] Work Phone: Evaluation note* Diagnosis Postlaminectomy syndrome, lumbar region- Primary Lumbar radiculopathy, chronic documented in this encounter [facility] Work Phone: Evaluation note* Diagnosis Postlaminectomy syndrome, lumbar region documented in this encounter [facility] Work Phone: Evaluation note* Diagnosis Lumbar radiculopathy, chronic- Primary Postlaminectomy syndrome, lumbar region documented in this encounter [facility] Work Phone: Evaluation note* Diagnosis Lumbar radiculopathy, chronic Postlaminectomy syndrome, lumbar region documented in this encounter [facility] Work Phone: Evaluation note* Diagnosis Chronic cluster headache, not intractable- Primary Essential hypertension (CMS/HCC) Unspecified essential hypertension History of blood clots Lumbar radiculopathy Thoracic or lumbosacral neuritis or radiculitis, unspecified documented in this encounter [facility]* Diagnosis Onset Date Resolution Status Admit Date Chronic pain acute September 13 8:55am Chronic, continuous use of opioids a cute September 13, 2024 8:55am Other spondylosis with radiculopathy, lumbar region acute September 13, 2024 8:55am [facility] Work Phone: Evaluation note* Diagnosis Postlaminectomy syndrome, lumbar region- Primary Lumbar radiculopathy, chronic documented in this encounter [facility] Work Phone: History general Narrative - Reported* [...] Hospitalization History pulmonary embolism 2 alfa es [facility] Other History of Present illness Narrative* Patient [...] not corrected for spelling or grammatical errors BM-Fwruuhodfixa-Sgrblsyj Work Phone: History of Present illness Narrative* [...] * Lives with: Spouse * 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 * Sleep patterns: 8hrs YANNI on CPAP * Alcohol: 1-2 on the weekends * Tobacco: None * Recreational Drugs: None * Exercise: Therapy for back 2 x weekly GF-Wbxazgo-Tiypx [address] Work Phone: History of Present [...] and V8 * L - yogurt, granola (persian yogurt, 1/4 cup granola), cream of corn 1 cup * Snack - pop corner 100 calorie bag * D - veggie burger with angolan cheese & onion (2 burgers) low calorie [...] * Lives with: Spouse * 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 * Continued topiramate as adjunct to diet/exercise last visit. 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 BB-Kbftuozjxorc-Wqikqywh Work Phone: History of Present illness Narrative* [...] is going to do this in the [facility], we will have them push the results to PACS. He shouldcall the office for the results of the MRI. * In the meantime I am going to put him on some prednisone. * I will speak with him after the MRI is complete. * This note was dictated using speech recognition software and was not corrected for spelling or grammatical errors. QY-Xyzopxllfcou-Xxdltkjf Work Phone: Hospital Discharge instructions* Activity:activity with [...] Appointment 1:Physician/Dept/Service: Dr. Bee Blackmon/ Orthopaedic Surgery/ [facility]ineRevan for Referral: Postoperative Follow-Up AppointmentScheduled Date/Time: 09-Dec-2020 11:15[address] [address], Phone Number: Office: ([place], Sec.) - [phone]: Please Call Tara Gonzalez RN at [phone] For Any Post-Op Questions [facility] Additional Instructions If your symptoms return/worsen or you develop any further concerns or symptoms please see your doctor or return to the emergency department immediately.[facility] Work Phone: Reason for referral (narrative)* Reason for Referral: L3-4 fusion [facility] [place], operated by [facility] for visit Narrative* Imaging (Routine) - Authorized Specialty Diagnoses / Procedures Referred By Stef hussein Referred To Contact Radiology Diagnoses Postlaminectomy syndrome, lumbar region Procedures [place] [address] [place] [address] Phone: tel: fax: Referral ID Status Reason Start Date Expiration Date Visits Requested Visits Authorized [id number] Authorized Perform Procedure 06/22/2024 06/22/2025 1 1 [facility] Work Phone: Rezese for visit Narrative* Imaging (Routine) - Authorized Specialty Diagnoses / Procedures Referred By Contac t Referred To Contact Radiology Diagnoses Lumbar radiculopathy, chronic Postlaminectomy syndrome, lumbar region [place] [address] [address] Department of Orthopedics [place] [phone] Phone: tel: fax: Referral ID Status Reason Start Date Expiration Date Visits Requested Visits Authorized [id number] Authorized Perform Procedure 08/03/2024 08/03/2025 1 1 [facility] Work Phone: Chief Complaint * A telephone [...] August 182024 8:55am Other spondylosis with radiculopathy, lefty mbar region September 13, 2024 8:55am Additional Source [...] section and content) DATE CREATED AUTHOR 09/29/2021 [facility] DATE CREATED AUTHOR AUTHOR'S ORGANIZ ATION 05/01/2022 [facility] dical Specialist DATE CREATED AUTHOR AUTHOR'S ORGANIZ ATION 05/05/2022 [facility] DATE CREATED AUTHOR AUTHOR'S ORGANIZ ATION 05/16/2022 [facility] DATE CREATED AUTHOR AUTHOR'S ORGANIZ ATION 06/24/2022 [facility] DATE CREATED AUTHOR AUTHOR'S ORGANIZ ATION 07/28/2022 [facility] DATE CREATED AUTHOR AUTHOR'S ORGANIZ ATION 05/26/2024 [facility] DATE CREATED AUTHOR AUTHOR'S ORGANIZ ATION 08/16/2024 [facility] DATE CREATED AUTHOR AUTHOR'S ORGANIZ ATION 08/17/2024 [facility] dical Specialists EPIC DATE CREATED AUTHOR AUTHOR'S ORGANIZ ATION 08/23/2024 [facility] DATE CREATED AUTHOR AUTHOR'S ORGANIZ ATION 09/25/2024 [facility] DATE CREATED AUTHOR AUTHOR'S ORGANIZ ATION 10/30/2024 [facility] REASON FOR VISIT (unrecogniz ed section [...] Provider Active Sta rt: September 15, 2023 Electric Welder Helper Relationship Specialty Start Date End Date Kimi Weiss MD [address] [place] [id number] PCP - General Family Medicine 08/09/23 Electric Welder Helper Relationship Specialty [place] [address] [place] [id number] PCP - General Family Medicine 08/09/23 Electric Welder Helper Relationship Specialty Start Date End Date Kimi Weiss DO [address] [place] [id number] PCP - General 11/04/20 Team Status: Inactive [...] Livingston MD Other Provider Active Start: D ec2023 End: April 13, 2024 Des Musa MD [...] May 15, 2024 End: May 15, 2024 Electric Welder Helper Relationship Specialty Start Date End Date Kimi Weiss DO [address] [place] [address] PCP - General 11/04/20 Electric Welder Helper Relationship Specialty Start Date End Date Kimi Weiss DO [address] [place] [address] PCP - General 11/04/20 Electric Welder Helper Relationship Specialty Start Date End Date Kimi Weiss DO [address] [place] [address] PCP - General 11/04/20 Electric Welder Helper Relationship Specialty Start Date End Date Kimi Weiss MD [address] [place] [address] PCP - General Family Medicine 08/09/23 Electric Welder Helper Relationship Specialty Start Date End Date Kimi Weiss DO [address] [place] [address] PCP - General 11/04/20 Electric Welder Helper Relationship Specialty [place] [address] [place] [id number] PCP - [facility] Family Medicine 08/09/23 Team Status: Inactive Member Role Status Dates Kimi Weiss DO Primary Care Provider Active Start: September 13, 2024 End: September 13, 2024 Charles Claros MD Attending Provider Active Sta rt: September 13, 2024 End: September 13, 2024 Electric Welder Helper Relationship Specialty [place] [address] [place] [id number] PCP - General 11/04/20 Goals (unrecognized section [...] BE BASED ON THE PRIMARY CLINICAL RECORDS. [facility]. provides no warranty or guarantee of the accuracy or completeness of information in this document.
== END 2024-11-02 08:34 | disposition home or self-care (01) ==
LOC: CT 08:33
PROVIDERS: PCP Family Medicine; Visit Provider Family Medicine
DX: J18.9 Pneumonia, unspecified organism (principal); K76.0 Fatty (change of) liver, not elsewhere classified
CPT/HCPCS: 71260; Q9967